=== PATIENT | male | born 1970 | race Caucasian/White ===

== ENCOUNTER 2017-08-15 13:30 | Outpatient (RCR) | payer MEDICARE, MEDICAID, SELFPAY ==
[2017-08-08 13:15] VITALS: BP 144/77; PULSE 90; RESP 16; TEMP 35.9; BMI 54.2
[2017-08-08 18:38] LABS: Absolute Lymphocyte Count 0.95 X10^3/ul (0.83-4.51); Absolute Neutrophil Count 7.3 X10^3/uL (2.0-7.7); Basophil# 0.01 X10^3/uL; Basophil% 0.1 % (0-1); Eosinophil# 0.07 X10^3/uL; Eosinophils% 0.8 % (0-5); Hematocrit 37.8 % (40-54); Hemoglobin 11.5 g/dl (13.0-16.5); Lymphocyte # 0.95 X10^3/ul (4.0); Lymphocyte % 10.8 % (19-41); Mean Corp Hgb Conc 30.4 g/gl (32-36); Mean Corpuscular Hgb 24.4 pg (27.0-32.0); Mean Corpuscular Volume 80.3 fL (80-94); Mean Platelet Vol. 9.5 fl (6.2-12.0); Monocyte# 0.47 X10^3/uL; Monocyte% 5.3 % (0-10); Neutrophil % 82.9 % (47-70); Platelet Count 403 K/mm3 (150-450); RBC Distribution Width CV 14.8 % (11.6-14.6); RBC Distribution Width SD 43.3 fl (35.1-43.9); Red Blood Count 4.71 M/mm3 (4.6-6.2); White Blood Count 8.8 K/mm3 (4.4-11.0)
--- NOTE | 2017-08-08 18:41 | PCM.WC.HP ---
(1) Non-healing surgical wound of left groin Status: Acute Qualifiers: Encounter type: initial encounter Qualified Code(s): T81.89XA - Other complications of procedures, not elsewhere classified, initial encounter Code(s): T81.89XA - Other complications of procedures, not elsewhere classified, initial encounter (2) History of necrotising fasciitis Status: Acute Code(s): Z87.39 - Personal history of other diseases of the musculoskeletal system and connective tissue (3) Lymphedema of both lower extremities Status: Acute Code(s): I89.0 - Lymphedema, not elsewhere classified (4) Type 2 diabetes mellitus Status: Acute Qualifiers: Diabetes mellitus residential insulin use: without residential use Diabetes mellitus complication status: with neurologic complications Diabetes mellitus complication detail: with unspecified neuropathy Qualified Code(s): E11.40 - Type 2 diabetes mellitus with diabetic neuropathy, unspecified Code(s): E11.9 - Type 2 diabetes mellitus without complications (5) Diabetic neuropathy Status: Acute Qualifiers: Diabetes mellitus type: type 2 Code(s): E11.40 - Type 2 diabetes mellitus with diabetic neuropathy, unspecified (6) Morbid obesity Status: Acute Code(s): E66.01 - Morbid (severe) obesity due to excess calories History of Present Illness Date of Service: 08/08/17 Chief Complaint: Nonhealing wound status post surgical excision of necrotizing fasciitis left groin History of Wound: 46-year-old white male who presents to the wound healing center today with complaint of left groin ulceration status post surgical excision of necrotizing fasciitis. He is a past medical history which is significant for that of type 2 diabetes mellitus, gout, diabetic neuropathy, schizophrenia, bilateral lymphedema, and schizophrenia. The patient states that what initially started as a pimple in his left groin progressed to necrotizing fasciitis and he had to have this surgically debrided in April 2017. He was admitted to [facility] for 2 weeks and then [facility] for 6 weeks afterwards. He states that the groin ulcer which extends to his left lower abdomen has been slowly improving and he has been doing daily Aquacel AG dressings with an ABD for the drainage. He does state that he has had 3 wound vacs in the past which were unable to be utilized due to the location of his wound. He denies any foul-smelling discharge or systemic signs of infection at this time. The patient otherwise denies any fever, chills, nausea, vomiting, shortness of breath, chest pain or pressure, palpitations, orthopnea, syncope or presyncopal episodes. Past Medical History Surgical History: - - April 2017 surgical excision necrotizing fasciitis left groin Allergies/Adverse Reactions: Allergies No Known Allergies Allergy (Verified 08/08/17 13:50) Home Medications: Ambulatory Orders Medication Instructions Recorded Gabapentin [Neurontin] 100 mg PO TIDCM 08/08/17 Insulin Glargine,Hum.rec.anlog 36 unit SQ QHS 08/08/17 [Lantus] Magnesium Oxide [Mag-Ox 400] 400 mg PO BID 08/08/17 Smoking Status: Never smoker Tobacco Use: Non-smoker Alcohol: None Drugs: None Review of Systems Constitutional: Denies: Chills, Fever, Weight Change Eyes: Denies: Pain, Vision Change HEENT: Denies: Difficulty Hearing, Difficulty Swallowing, Sinus Congestion Cardiovascular: Denies: Chest Pain, Palpitations Respiratory: Denies: Cough, Shortness of Breath Gastrointestinal: Denies: Diarrhea, Nausea, Vomiting Genitourinary: Denies: Dysuria, Hematuria Skin: Reports: Wounds - See HPI Endocrine: Denies: Heat/ Cold Intolerance, Polydipsia, Polyuria Hematologic/ Lymphatic: Denies: Easy Bruising, Easy Bleeding - Physical Exam Vital Signs Temp Pulse Resp BP 96.6 F L 90 16 144/77 H 08/08/17 13:15 08/08/17 13:15 08/08/17 13:15 08/08/17 13:15 General: Alert, Oriented x3, Cooperative, No apparent distress HEENT: PERRLA, EOMI Oral: Moist Mucosa Neck: Supple Lungs: Clear to auscultation, Normal air movement Cardiovascular: Regular rate, Regular Rhythm Abdomen: Bowel Sounds Present, Obese Extremities: Edema - Bilateral lower extremity edema, Peripheral Pulses Normal Skin: Ulcer/ Wound - Ulceration present left groin that extends underneath left pannus and left lower abdominal fold, moderate amount of slough present, moderate amount of scar tissue present as well due to healing of secondary intention, no obvious signs of infection at this time. Patient does have a depth of 5.5 cm in some areas due to body habitus, however no obvious tunneling. Neurological: Neuro grossly intact Psych/Mental Status: Flat Affect Debridement Note Post-Debridement Measurements/Treatment WC - Nurse 2 - General Ulcer CM Notes Start: 08/08/17 11:50 Freq: Status: Active Protocol: Activity Type Activity Date Activity User E-Sign Co-Sign Detail Recorded Client Recorded Date Recorded By Document 08/08/17 14:29 DV [id number] 08/08/17 14:39 DV 08/08/17 14:29 Wound Center Nurse 2 #1- LEFT GROIN- POST OP -Time 14:32 -Correct Patient Yes -Correct Side, Site, Position Yes -Correct Procedure Yes -Procedure Performed Yes -Type of Procedure Debridement -Clinical Debridement Selective -Post Debridement Size (cm) - Length 39.3 -Post Debridement Size (cm) - Width 7.5 -Post Debridement Size (cm) - Depth 5.8 -Total Square Cm 294.75 -Wound/Ulcer Outcome Not Healed -Ulcer Cleansing Rinsed/ Irrigated with Saline -Foul Odor after Cleansing No -Bioengineered Tissue No -Bleeding Controlled with Pressure -Treatment Response Procedure Tolerated Well Pain Scale: 0-10 Numeric Is Patient Pain Free? Yes Wound debrided: Nonhealing ulcer left groin and left pannus Laterality: Left Type of Debridement: Selective debridement Anesthesia Used: 5% Lidocaine Gel Depth: in the subcutaneous layer Percentage of wound debrided: 50 Instrument Used: 5mm curette Tissue Removed: Slough and fibrous tissue Severity: Fat Layer Exposed Amount of bleeding with debridement: Mild Bleeding Controlled with: Pressure Patient tolerated procedure well Assessment/Plan Assessment: Nonhealing postsurgical wound left groin status post surgical excision of necrotizing fasciitis. Bilateral lower extremity edema. Morbid obesity. Type 2 diabetes mellitus Plan: The patient was seen and examined at the wound center today and was updated on the plan of care. A subcutaneous debridement was performed today. The patient tolerated the procedure well. The patients wound care will consist of:applying melgisorb dressings daily and as needed for heavy absorption until script of Dakins solution arrives to be used BID with wet to dry dressings. Wound cultures were collected. Baseline bloodwork ordered. Previous records were requested for continuity of care. Patient educated on the importance of diet on wound healing and instructed to increase protein and vitamin C intake. Patient verbalized understanding. Patient will follow up at wound healing center in one week or sooner if needed. This note was generated with [employer] software. It may contain incorrect words, spelling, and punctuation that were not noted in checking the note before signing. Code Visit Office Visits / Consults: [id number] OV L4 New 111xxx-113xx: [id number] Jessica subq tissue 20 sq cm/< Add On Codes: [id number] Jessica subq tissue add-on - x 7
[2017-08-08 18:51] LABS: POSITIVE COUNT NO; POSITIVE DIFFERENTIAL NO; POSITIVE MORPHOLOGY NO
[2017-08-08 19:05] LABS: ALB/GLOB Ratio 0.6 RATIO (0.9-2.4); AST(SGOT) 11 U/L (15-37); Alanine Aminotransfer ALT/SGPT 17 U/L (16-61); Albumin, Serum 2.8 g/dL (3.2-5.0); Alkaline Phosphatase 70 U/L (45-117); Anion Gap 8 (5-15); BUN 14 mg/dL (7-18); BUN/Creat Ratio 16.7 RATIO (10-20); Calcium,Total 9.3 mg/dL (8.5-10.1); Chloride 103 mmol/L (98-107); Creatinine, Serum 0.84 mg/dL (0.70-1.30); EST Glomerular Filtration Rate 105 mL/min (>60); Est Glom Filt Rate - Afr Amer 127 mL/min (>60); Estimated Creatinine Clearance 123.17 ml/min; Globulin 4.7 g/dL (2.2-4.2); Glucose 75 mg/dL (74-106); Potassium 3.5 mmol/L (3.5-5.1); Prealbumin 18.9 mg/dL (20.0-40.0); Protein, Total 7.5 g/dL (6.4-8.2); Sodium Level 139 mmol/L (136-145)
[2017-08-08 19:07] LABS: Hemoglobin A1c 5.2 % (4.2-6.3)
--- NOTE | 2017-08-13 13:51 | HP.PCM_ITS ---
(1) Non-healing surgical wound of left groin Status: Acute Qualifiers: Encounter type: initial encounter Qualified Code(s): T81.89XA - Other complications of procedures, not elsewhere classified, initial encounter Code(s): T81.89XA - Other complications of procedures, not elsewhere classified , initial encounter (2) History of necrotising fasciitis Status: Acute Code(s): Z87.39 - Personal history of other diseases of the musculoskeletal system and connective tissue (3) Lymphedema of both lower extremities Status: Acute Code(s): I89.0 - Lymphedema, not elsewhere classified (4) Type 2 diabetes mellitus Status: Acute Qualifiers: Diabetes mellitus prison insulin use: without prison use Diabetes mellitus complication status: with neurologic complications Diabetes mellitus complication detail: with unspecified neuropathy Qualified Code(s): E11.40 - Type 2 diabetes mellitus with diabetic neuropathy, unspecified Code(s): E11.9 - Type 2 diabetes mellitus without complications (5) Diabetic neuropathy Status: Acute Qualifiers: Diabetes mellitus type: type 2 Code(s): E11.40 - Type 2 diabetes mellitus with diabetic neuropathy, unspecified (6) Morbid obesity Status: Acute Code(s): E66.01 - Morbid (severe) obesity due to excess calories History of Present Illness Date of Service: 08/08/17 Chief Complaint: Nonhealing wound status post surgical excision of necrotizing fasciitis left groin History of Wound: 46-year-old white male who presents to the wound healing center today with complaint of left groin ulceration status post surgical excision of necrotizing fasciitis. He is a past medical history which is significant for that of type 2 diabetes mellitus, gout, diabetic neuropathy, schizophrenia, bilateral lymphedema, and schizophrenia. The patient states that what initially started as a pimple in his left groin progressed to necrotizing fasciitis and he had to have this surgically debrided in April 2017. He was admitted to [facility] for 2 weeks and then [facility] for 6 weeks afterwards. He states that the groin ulcer which extends to his left lower abdomen has been slowly improving and he has been doing daily Aquacel AG dressings with an ABD for the drainage. He does state that he has had 3 wound vacs in the past which were unable to be utilized due to the location of his wound. He denies any foul-smelling discharge or systemic signs of infection at this time. The patient otherwise denies any fever, chills, nausea, vomiting, shortness of breath, chest pain or pressure, palpitations, orthopnea, syncope or presyncopal episodes. Past Medical History Surgical History: - - April 2017 surgical excision necrotizing fasciitis left groin Allergies/Adverse Reactions: Allergies No Known Allergies Allergy (Verified 08/08/17 13:50) Home Medications: Ambulatory Orders Medication Instructions Recorded Gabapentin [Neurontin] 100 mg PO TIDCM 08/08/17 Insulin Glargine,Hum.rec.anlog 36 unit SQ QHS 08/08/17 [Lantus] Magnesium Oxide [Mag-Ox 400] 400 mg PO BID 08/08/17 Smoking Status: Never smoker Tobacco Use: Non-smoker Alcohol: None Drugs: None Review of Systems Constitutional: Denies: Chills, Fever, Weight Change Eyes: Denies: Pain, Vision Change HEENT: Denies: Difficulty Hearing, Difficulty Swallowing, Sinus Congestion Cardiovascular: Denies: Chest Pain, Palpitations Respiratory: Denies: Cough, Shortness of Breath Gastrointestinal: Denies: Diarrhea, Nausea, Vomiting Genitourinary: Denies: Dysuria, Hematuria Skin: Reports: Wounds - See HPI Endocrine: Denies: Heat/ Cold Intolerance, Polydipsia, Polyuria Hematologic/ Lymphatic: Denies: Easy Bruising, Easy Bleeding - Physical Exam Vital Signs Temp Pulse Resp BP 96.6 F L 90 16 144/77 H 08/08/17 13:15 08/08/17 13:15 08/08/17 13:15 08/08/17 13:15 General: Alert, Oriented x3, Cooperative, No apparent distress HEENT: PERRLA, EOMI Oral: Moist Mucosa Neck: Supple Lungs: Clear to auscultation, Normal air movement Cardiovascular: Regular rate, Regular Rhythm Abdomen: Bowel Sounds Present, Obese Extremities: Edema - Bilateral lower extremity edema, Peripheral Pulses Normal Skin: Ulcer/ Wound - Ulceration present left groin that extends underneath left pannus and left lower abdominal fold, moderate amount of slough present, moderate amount of scar tissue present as well due to healing of secondary intention, no obvious signs of infection at this time. Patient does have a depth of 5.5 cm in some areas due to body habitus, however no obvious tunneling. Neurological: Neuro grossly intact Psych/Mental Status: Flat Affect Debridement Note Post-Debridement Measurements/Treatment WC - Nurse 2 - General Ulcer CM Notes Start: 08/08/17 11:50 Freq: Status: Active Protocol: Activity Type Activity Date Activity User E-Sign Co-Sign Detail Recorded Client Recorded Date Recorded By Document 08/08/17 14:29 DV [id number] 08/08/17 14:39 DV 08/08/17 14:29 Wound Center Nurse 2 #1- LEFT GROIN- POST OP -Time 14:32 -Correct Patient Yes -Correct Side, Site, Position Yes -Correct Procedure Yes -Procedure Performed Yes -Type of Procedure Debridement -Clinical Debridement Selective -Post Debridement Size (cm) - Length 39.3 -Post Debridement Size (cm) - Width 7.5 -Post Debridement Size (cm) - Depth 5.8 -Total Square Cm 294.75 -Wound/Ulcer Outcome Not Healed -Ulcer Cleansing Rinsed/ Irrigated with Saline -Foul Odor after Cleansing No -Bioengineered Tissue No -Bleeding Controlled with Pressure -Treatment Response Procedure Tolerated Well Pain Scale: 0-10 Numeric Is Patient Pain Free? Yes Wound debrided: Nonhealing ulcer left groin and left pannus Laterality: Left Type of Debridement: Selective debridement Anesthesia Used: 5% Lidocaine Gel Depth: in the subcutaneous layer Percentage of wound debrided: 50 Instrument Used: 5mm curette Tissue Removed: Slough and fibrous tissue Severity: Fat Layer Exposed Amount of bleeding with debridement: Mild Bleeding Controlled with: Pressure Patient tolerated procedure well Assessment/Plan Assessment: Nonhealing postsurgical wound left groin status post surgical excision of necrotizing fasciitis. Bilateral lower extremity edema. Morbid obesity. Type 2 diabetes mellitus Plan: The patient was seen and examined at the wound center today and was updated on the plan of care. A subcutaneous debridement was performed today. The patient tolerated the procedure well. The patients wound care will consist of:applying melgisorb dressings daily and as needed for heavy absorption until script of Dakins solution arrives to be used BID with wet to dry dressings. Wound cultures were collected. Baseline bloodwork ordered. Previous records were requested for continuity of care. Patient educated on the importance of diet on wound healing and instructed to increase protein and vitamin C intake. Patient verbalized understanding. Patient will follow up at wound healing center in one week or sooner if needed. This note was generated with [employer] software. It may contain incorrect words, spelling, and punctuation that were not noted in checking the note before signing. Code Visit Office Visits / Consults: [id number] OV L4 New 111xxx-113xx: [id number] Jessica subq tissue 20 sq cm/< Add On Codes: [id number] Jessica subq tissue add-on - x 7
[2017-08-15 14:01] VITALS: BP 157/90; PULSE 82; RESP 18; TEMP 36.6; BMI 54.2
--- NOTE | 2017-08-15 18:56 | PCM.WC.PN ---
(1) Non-healing surgical wound of left groin Status: Acute Qualifiers: Encounter type: initial encounter Qualified Code(s): T81.89XA - Other complications of procedures, not elsewhere classified, initial encounter Code(s): T81.89XA - Other complications of procedures, not elsewhere classified, initial encounter (2) History of necrotising fasciitis Status: Acute Code(s): Z87.39 - Personal history of other diseases of the musculoskeletal system and connective tissue (3) Lymphedema of both lower extremities Status: Acute Code(s): I89.0 - Lymphedema, not elsewhere classified (4) Type 2 diabetes mellitus Status: Acute Qualifiers: Diabetes mellitus halfway insulin use: without halfway use Diabetes mellitus complication status: with neurologic complications Diabetes mellitus complication detail: with unspecified neuropathy Qualified Code(s): E11.40 - Type 2 diabetes mellitus with diabetic neuropathy, unspecified Code(s): E11.9 - Type 2 diabetes mellitus without complications (5) Diabetic neuropathy Status: Acute Qualifiers: Diabetes mellitus type: type 2 Code(s): E11.40 - Type 2 diabetes mellitus with diabetic neuropathy, unspecified (6) Morbid obesity Status: Acute Code(s): E66.01 - Morbid (severe) obesity due to excess calories Type of Wound Date of Service: 08/15/17 Chief Complaint: Nonhealing wound status post surgical excision of necrotizing fasciitis left groin History of Wound: 46-year-old white male who presents to the wound healing center today with complaint of left groin ulceration status post surgical excision of necrotizing fasciitis. He is a past medical history which is significant for that of type 2 diabetes mellitus, gout, diabetic neuropathy, schizophrenia, bilateral lymphedema, and schizophrenia. The patient states that what initially started as a pimple in his left groin progressed to necrotizing fasciitis and he had to have this surgically debrided in April 2017. He was admitted to [facility] for 2 weeks and then [facility] for 6 weeks afterwards. He states that the groin ulcer which extends to his left lower abdomen has been slowly improving and he has been doing daily Aquacel AG dressings with an ABD for the drainage. He does state that he has had 3 wound vacs in the past which were unable to be utilized due to the location of his wound. He denies any foul-smelling discharge or systemic signs of infection at this time. The patient otherwise denies any fever, chills, nausea, vomiting, shortness of breath, chest pain or pressure, palpitations, orthopnea, syncope or presyncopal episodes. Progress of Wound: less drainage per patient, wound is improving - Physical Exam Vital Signs Temp Pulse Resp BP 98 F 82 18 157/90 H 08/15/17 14:01 08/15/17 14:01 08/15/17 14:01 08/15/17 14:01 General: Alert, Oriented x3, Cooperative, No apparent distress HEENT: Atraumatic Cardiovascular: Regular rate Abdomen: Obese Extremities: No clubbing, No cyanosis, Edema - generalized lower extremity Skin: Ulcer/ Wound - ulcer present left groin and pannus, clean and small amount of slough noted in deep portions. No obvious signs of infection at this time. Neurological: Neuro grossly intact Psych/Mental Status: Normal Affect, Alert and oriented to time, place, person, mood and affect Debridement Note Post-Debridement Measurements/Treatment WC - Nurse 2 - General Ulcer CM Notes Start: 08/08/17 11:50 Freq: Status: Active Protocol: Activity Type Activity Date Activity User E-Sign Co-Sign Detail Recorded Client Recorded Date Recorded By Document 08/08/17 14:29 DV [id number] 08/08/17 14:39 DV Document 08/15/17 15:22 DV [id number] 08/15/17 15:25 DV 08/08/17 08/15/17 14:29 15:22 Wound Center Nurse 2 #1- LEFT GROIN- POST OP -Time 14:32 15:22 -Correct Patient Yes Yes -Correct Side, Site, Position Yes Yes -Correct Procedure Yes Yes -Procedure Performed Yes Yes -Type of Procedure Debridement Debridement -Clinical Debridement Selective Subcutaneous -Post Debridement Size (cm) - Length 39.3 7.0 -Post Debridement Size (cm) - Width 7.5 36.0 -Post Debridement Size (cm) - Depth 5.8 5.0 -Total Square Cm 294.75 252.00 -Wound/Ulcer Outcome Not Healed Not Healed -Ulcer Cleansing Rinsed/ Rinsed/ Irrigated with Irrigated with Saline Saline -Foul Odor after Cleansing No No -Bioengineered Tissue No No -Bleeding Controlled with Pressure Pressure -Treatment Response Procedure Procedure Tolerated Well Tolerated Well Pain Scale: 0-10 Numeric Is Patient Pain Free? Yes Yes Wound debrided: Left groin nonhealing post surgical wound ulcer Laterality: Left Type of Debridement: Selective debridement Anesthesia Used: 4% Lidocaine Solution Depth: Down to and including healthy tissue, in the subcutaneous layer Percentage of wound debrided: 50 Instrument Used: 5mm curette Tissue Removed: should and fibrous tissue Severity: Fat Layer Exposed Amount of bleeding with debridement: Mild Bleeding Controlled with: Pressure Patient tolerated procedure well Assessment/Plan Assessment: Nonhealing postsurgical wound left groin status post surgical excision of necrotizing fasciitis. Bilateral lower extremity edema. Morbid obesity. Type 2 diabetes mellitus Plan: The patient was seen and examined at the wound center today and was updated on the plan of care. A subcutaneous debridement was performed today. The patient tolerated the procedure well. The patients wound care will consist of:using Dakins solution to be used BID with wet to dry dressings, instructed pt to do this BID instead of daily. Wound cultures were reviewed and normal. Baseline bloodwork reviewed and demonstrated low prealbumin of 18.9, glucerna with high protein ordered. Previous records were requested for continuity of care and still pending. Patient educated on the importance of diet on wound healing and instructed to increase protein and vitamin C intake. Patient verbalized understanding. Patient will follow up at wound healing center in one week or sooner if needed. This note was generated with [employer] dictation software. It may contain incorrect words, spelling, and punctuation that were not noted in checking the note before signing. Code Visit 111xxx-113xx: [id number] Jessica subq tissue 20 sq cm/< Add On Codes: [id number] Jessica subq tissue add-on - x 5
--- NOTE | 2017-08-21 11:02 | PN.PCM_ITS ---
(1) Non-healing surgical wound of left groin Status: Acute Qualifiers: Encounter type: initial encounter Qualified Code(s): T81.89XA - Other complications of procedures, not elsewhere classified, initial encounter Code(s): T81.89XA - Other complications of procedures, not elsewhere classified , initial encounter (2) History of necrotising fasciitis Status: Acute Code(s): Z87.39 - Personal history of other diseases of the musculoskeletal system and connective tissue (3) Lymphedema of both lower extremities Status: Acute Code(s): I89.0 - Lymphedema, not elsewhere classified (4) Type 2 diabetes mellitus Status: Acute Qualifiers: Diabetes mellitus fdc insulin use: without fdc use Diabetes mellitus complication status: with neurologic complications Diabetes mellitus complication detail: with unspecified neuropathy Qualified Code(s): E11.40 - Type 2 diabetes mellitus with diabetic neuropathy, unspecified Code(s): E11.9 - Type 2 diabetes mellitus without complications (5) Diabetic neuropathy Status: Acute Qualifiers: Diabetes mellitus type: type 2 Code(s): E11.40 - Type 2 diabetes mellitus with diabetic neuropathy, unspecified (6) Morbid obesity Status: Acute Code(s): E66.01 - Morbid (severe) obesity due to excess calories Type of Wound Date of Service: 08/15/17 Chief Complaint: Nonhealing wound status post surgical excision of necrotizing fasciitis left groin History of Wound: 46-year-old white male who presents to the wound healing center today with complaint of left groin ulceration status post surgical excision of necrotizing fasciitis. He is a past medical history which is significant for that of type 2 diabetes mellitus, gout, diabetic neuropathy, schizophrenia, bilateral lymphedema, and schizophrenia. The patient states that what initially started as a pimple in his left groin progressed to necrotizing fasciitis and he had to have this surgically debrided in April 2017. He was admitted to [facility] for 2 weeks and then [facility] for 6 weeks afterwards. He states that the groin ulcer which extends to his left lower abdomen has been slowly improving and he has been doing daily Aquacel AG dressings with an ABD for the drainage. He does state that he has had 3 wound vacs in the past which were unable to be utilized due to the location of his wound. He denies any foul-smelling discharge or systemic signs of infection at this time. The patient otherwise denies any fever, chills, nausea, vomiting, shortness of breath, chest pain or pressure, palpitations, orthopnea, syncope or presyncopal episodes. Progress of Wound: less drainage per patient, wound is improving - Physical Exam Vital Signs Temp Pulse Resp BP 98 F 82 18 157/90 H 08/15/17 14:01 08/15/17 14:01 08/15/17 14:01 08/15/17 14:01 General: Alert, Oriented x3, Cooperative, No apparent distress HEENT: Atraumatic Cardiovascular: Regular rate Abdomen: Obese Extremities: No clubbing, No cyanosis, Edema - generalized lower extremity Skin: Ulcer/ Wound - ulcer present left groin and pannus, clean and small amount of slough noted in deep portions. No obvious signs of infection at this time. Neurological: Neuro grossly intact Psych/Mental Status: Normal Affect, Alert and oriented to time, place, person, mood and affect Debridement Note Post-Debridement Measurements/Treatment WC - Nurse 2 - General Ulcer CM Notes Start: 08/08/17 11:50 Freq: Status: Active Protocol: Activity Type Activity Date Activity User E-Sign Co-Sign Detail Recorded Client Recorded Date Recorded By Document 08/08/17 14:29 DV [id number] 08/08/17 14:39 DV Document 08/15/17 15:22 DV [id number] 08/15/17 15:25 DV 08/08/17 08/15/17 14:29 15:22 Wound Center Nurse 2 #1- LEFT GROIN- POST OP -Time 14:32 15:22 -Correct Patient Yes Yes -Correct Side, Site, Position Yes Yes -Correct Procedure Yes Yes -Procedure Performed Yes Yes -Type of Procedure Debridement Debridement -Clinical Debridement Selective Subcutaneous -Post Debridement Size (cm) - Length 39.3 7.0 -Post Debridement Size (cm) - Width 7.5 36.0 -Post Debridement Size (cm) - Depth 5.8 5.0 -Total Square Cm 294.75 252.00 -Wound/Ulcer Outcome Not Healed Not Healed -Ulcer Cleansing Rinsed/ Rinsed/ Irrigated with Irrigated with Saline Saline -Foul Odor after Cleansing No No -Bioengineered Tissue No No -Bleeding Controlled with Pressure Pressure -Treatment Response Procedure Procedure Tolerated Well Tolerated Well Pain Scale: 0-10 Numeric Is Patient Pain Free? Yes Yes Wound debrided: Left groin nonhealing post surgical wound ulcer Laterality: Left Type of Debridement: Selective debridement Anesthesia Used: 4% Lidocaine Solution Depth: Down to and including healthy tissue, in the subcutaneous layer Percentage of wound debrided: 50 Instrument Used: 5mm curette Tissue Removed: should and fibrous tissue Severity: Fat Layer Exposed Amount of bleeding with debridement: Mild Bleeding Controlled with: Pressure Patient tolerated procedure well Assessment/Plan Assessment: Nonhealing postsurgical wound left groin status post surgical excision of necrotizing fasciitis. Bilateral lower extremity edema. Morbid obesity. Type 2 diabetes mellitus Plan: The patient was seen and examined at the wound center today and was updated on the plan of care. A subcutaneous debridement was performed today. The patient tolerated the procedure well. The patients wound care will consist of:using Dakins solution to be used BID with wet to dry dressings, instructed pt to do this BID instead of daily. Wound cultures were reviewed and normal. Baseline bloodwork reviewed and demonstrated low prealbumin of 18.9, glucerna with high protein ordered. Previous records were requested for continuity of care and still pending. Patient educated on the importance of diet on wound healing and instructed to increase protein and vitamin C intake. Patient verbalized understanding. Patient will follow up at wound healing center in one week or sooner if needed. This note was generated with [employer] dictation software. It may contain incorrect words, spelling, and punctuation that were not noted in checking the note before signing. Code Visit 111xxx-113xx: 68928 Jessica subq tissue 20 sq cm/< Add On Codes: [id number] Jessica subq tissue add-on - x 5
== END 2017-08-19 23:59 ==
LOC: WC 13:30
PROVIDERS: Family Provider Family Medicine; PCP Family Medicine; Visit Provider Nurse Practitioner Family
DX: E11.622 Type 2 diabetes mellitus with other skin ulcer (principal); I89.0 Lymphedema, not elsewhere classified; E11.40 Type 2 diabetes mellitus with diabetic neuropathy, unspecified; E66.01 Morbid (severe) obesity due to excess calories; Z68.43 Body mass index [BMI] 50.0-59.9, adult; Z71.3 Dietary counseling and surveillance; T81.89XA Other complications of procedures, not elsewhere classified, initial encounter; Z86.711 Personal history of pulmonary embolism; Z79.4 Long term (current) use of insulin; Z79.899 Other long term (current) drug therapy; L98.492 Non-pressure chronic ulcer of skin of other sites with fat layer exposed
CPT/HCPCS: 11042; 11045; 80053; 83036; 84134; 85025; 87070; 87075; 87205; 99204; G0463

== ENCOUNTER 2017-09-19 15:30 | Outpatient (RCR) | payer MEDICARE, MEDICAID, SELFPAY ==
[2017-08-20 01:08] VITALS: PULSE 82; RESP 18; TEMP 36.6
[2017-08-22 14:38] VITALS: BP 160/94; PULSE 77; RESP 18; TEMP 36.2
--- NOTE | 2017-08-22 17:23 | PCM.WC.PN ---
(1) Non-healing surgical wound of left groin Status: Acute Qualifiers: Code(s): T81.89XA - Other complications of procedures, not elsewhere classified, initial encounter (2) Diabetic neuropathy Status: Acute Code(s): E11.40 - Type 2 diabetes mellitus with diabetic neuropathy, unspecified (3) History of necrotising fasciitis Status: Acute Code(s): Z87.39 - Personal history of other diseases of the musculoskeletal system and connective tissue (4) Lymphedema of both lower extremities Status: Acute Code(s): I89.0 - Lymphedema, not elsewhere classified (5) Morbid obesity Status: Acute Code(s): E66.01 - Morbid (severe) obesity due to excess calories (6) Type 2 diabetes mellitus Status: Acute Qualifiers: Code(s): E11.9 - Type 2 diabetes mellitus without complications Type of Wound Date of Service: 08/22/17 Chief Complaint: Nonhealing wound status post surgical excision of necrotizing fasciitis left groin History of Wound: 46-year-old white male who presents to the wound healing center today with complaint of left groin ulceration status post surgical excision of necrotizing fasciitis. He is a past medical history which is significant for that of type 2 diabetes mellitus, gout, diabetic neuropathy, schizophrenia, bilateral lymphedema, and schizophrenia. The patient states that what initially started as a pimple in his left groin progressed to necrotizing fasciitis and he had to have this surgically debrided in April 2017. He was admitted to [facility] for 2 weeks and then [facility] for 6 weeks afterwards. He states that the groin ulcer which extends to his left lower abdomen has been slowly improving and he has been doing daily Aquacel AG dressings with an ABD for the drainage. He does state that he has had 3 wound vacs in the past which were unable to be utilized due to the location of his wound. He denies any foul-smelling discharge or systemic signs of infection at this time. The patient otherwise denies any fever, chills, nausea, vomiting, shortness of breath, chest pain or pressure, palpitations, orthopnea, syncope or presyncopal episodes. Progress of Wound: Wound is stable and slowly improving, wound bed is moist and clean and without signs of infection at this time. - Physical Exam Vital Signs Temp Pulse Resp BP 97.2 F L 77 18 160/94 H 08/22/17 14:38 08/22/17 14:38 08/22/17 14:38 08/22/17 14:38 General: Alert, Oriented x3, Cooperative, No apparent distress HEENT: Atraumatic Cardiovascular: Regular rate Skin: Ulcer/ Wound - Nonhealing ulcer left lower pannus fold extending into the groin, wound bed is moist and clean with a small amount of slough present. No signs of infection at this time. Slightly macerated edges Psych/Mental Status: Normal Affect, Alert and oriented to time, place, person, mood and affect Debridement Note Post-Debridement Measurements/Treatment WC - Nurse 2 - General Ulcer CM Notes Start: 08/22/17 14:38 Freq: Status: Active Protocol: Activity Type Activity Date Activity User E-Sign Co-Sign Detail Recorded Client Recorded Date Recorded By Document 08/22/17 17:40 DV [id number] 08/24/17 01:11 DV 08/22/17 17:40 Wound Center Nurse 2 #1- LEFT GROIN- POST OP -Time 17:40 -Correct Patient Yes -Correct Side, Site, Position Yes -Correct Procedure Yes -Procedure Performed Yes -Type of Procedure Debridement -Clinical Debridement Subcutaneous -Post Debridement Size (cm) - Length 35.0 -Post Debridement Size (cm) - Width 5.0 -Post Debridement Size (cm) - Depth 4.8 -Total Square Cm 175.00 -Wound/Ulcer Outcome Not Healed -Ulcer Cleansing Rinsed/ Irrigated with Saline -Foul Odor after Cleansing No -Bioengineered Tissue No -Bleeding Controlled with NA -Treatment Response Procedure Tolerated Well Pain Scale: 0-10 Numeric Is Patient Pain Free? Yes Wound debrided: Left groin/pannus postsurgical excision nonhealing wound Type of Debridement: Excisional debridement, Selective debridement Anesthesia Used: 4% Lidocaine Solution Depth: Down to and including healthy tissue, in the subcutaneous layer Percentage of wound debrided: 50 Instrument Used: 7mm curette Tissue Removed: Slough and fibrous tissue Severity: Fat Layer Exposed Amount of bleeding with debridement: Mild Bleeding Controlled with: Pressure Patient tolerated procedure well Assessment/Plan Assessment: Nonhealing postsurgical wound left groin status post surgical excision of necrotizing fasciitis. Bilateral lower extremity edema. Morbid obesity. Type 2 diabetes mellitus Plan: The patient was seen and examined at the wound center today and was updated on the plan of care. A subcutaneous debridement was performed today. The patient tolerated the procedure well. The patients wound care will consist of:applying Dakins wet-to-dry dressing changes daily changed from twice daily due to slight maceration of skin. Wound cultures were reviewed and negative. Baseline bloodwork reviewed which demonstrated a slightly low pre-albumin and patient was advised to use Glucerna or high-protein with meals. Previous records were requested for continuity of care. Patient educated on the importance of diet on wound healing and instructed to increase protein and vitamin C intake. Patient verbalized understanding. Patient will follow up at wound healing center in one week or sooner if needed. This note was generated with [email or web address] dictation software. It may contain incorrect words, spelling, and punctuation that were not noted in checking the note before signing. Code Visit 111xxx-113xx: 52288 Jessica subq tissue 20 sq cm/< Add On Codes: [id number] Jessica subq tissue add-on
--- NOTE | 2017-08-27 17:29 | PN.PCM_ITS ---
(1) Non-healing surgical wound of left groin Status: Acute Qualifiers: Code(s): T81.89XA - Other complications of procedures, not elsewhere classified , initial encounter (2) Diabetic neuropathy Status: Acute Code(s): E11.40 - Type 2 diabetes mellitus with diabetic neuropathy, unspecified (3) History of necrotising fasciitis Status: Acute Code(s): Z87.39 - Personal history of other diseases of the musculoskeletal system and connective tissue (4) Lymphedema of both lower extremities Status: Acute Code(s): I89.0 - Lymphedema, not elsewhere classified (5) Morbid obesity Status: Acute Code(s): E66.01 - Morbid (severe) obesity due to excess calories (6) Type 2 diabetes mellitus Status: Acute Qualifiers: Code(s): E11.9 - Type 2 diabetes mellitus without complications Type of Wound Date of Service: 08/22/17 Chief Complaint: Nonhealing wound status post surgical excision of necrotizing fasciitis left groin History of Wound: 46-year-old white male who presents to the wound healing center today with complaint of left groin ulceration status post surgical excision of necrotizing fasciitis. He is a past medical history which is significant for that of type 2 diabetes mellitus, gout, diabetic neuropathy, schizophrenia, bilateral lymphedema, and schizophrenia. The patient states that what initially started as a pimple in his left groin progressed to necrotizing fasciitis and he had to have this surgically debrided in April 2017. He was admitted to [facility] for 2 weeks and then [facility] for 6 weeks afterwards. He states that the groin ulcer which extends to his left lower abdomen has been slowly improving and he has been doing daily Aquacel AG dressings with an ABD for the drainage. He does state that he has had 3 wound vacs in the past which were unable to be utilized due to the location of his wound. He denies any foul-smelling discharge or systemic signs of infection at this time. The patient otherwise denies any fever, chills, nausea, vomiting, shortness of breath, chest pain or pressure, palpitations, orthopnea, syncope or presyncopal episodes. Progress of Wound: Wound is stable and slowly improving, wound bed is moist and clean and without signs of infection at this time. - Physical Exam Vital Signs Temp Pulse Resp BP 97.2 F L 77 18 160/94 H 08/22/17 14:38 08/22/17 14:38 08/22/17 14:38 08/22/17 14:38 General: Alert, Oriented x3, Cooperative, No apparent distress HEENT: Atraumatic Cardiovascular: Regular rate Skin: Ulcer/ Wound - Nonhealing ulcer left lower pannus fold extending into the groin, wound bed is moist and clean with a small amount of slough present. No signs of infection at this time. Slightly macerated edges Psych/Mental Status: Normal Affect, Alert and oriented to time, place, person, mood and affect Debridement Note Post-Debridement Measurements/Treatment WC - Nurse 2 - General Ulcer CM Notes Start: 08/22/17 14:38 Freq: Status: Active Protocol: Activity Type Activity Date Activity User E-Sign Co-Sign Detail Recorded Client Recorded Date Recorded By Document 08/22/17 17:40 DV [id number] 08/24/17 01:11 DV 08/22/17 17:40 Wound Center Nurse 2 #1- LEFT GROIN- POST OP -Time 17:40 -Correct Patient Yes -Correct Side, Site, Position Yes -Correct Procedure Yes -Procedure Performed Yes -Type of Procedure Debridement -Clinical Debridement Subcutaneous -Post Debridement Size (cm) - Length 35.0 -Post Debridement Size (cm) - Width 5.0 -Post Debridement Size (cm) - Depth 4.8 -Total Square Cm 175.00 -Wound/Ulcer Outcome Not Healed -Ulcer Cleansing Rinsed/ Irrigated with Saline -Foul Odor after Cleansing No -Bioengineered Tissue No -Bleeding Controlled with NA -Treatment Response Procedure Tolerated Well Pain Scale: 0-10 Numeric Is Patient Pain Free? Yes Wound debrided: Left groin/pannus postsurgical excision nonhealing wound Type of Debridement: Excisional debridement, Selective debridement Anesthesia Used: 4% Lidocaine Solution Depth: Down to and including healthy tissue, in the subcutaneous layer Percentage of wound debrided: 50 Instrument Used: 7mm curette Tissue Removed: Slough and fibrous tissue Severity: Fat Layer Exposed Amount of bleeding with debridement: Mild Bleeding Controlled with: Pressure Patient tolerated procedure well Assessment/Plan Assessment: Nonhealing postsurgical wound left groin status post surgical excision of necrotizing fasciitis. Bilateral lower extremity edema. Morbid obesity. Type 2 diabetes mellitus Plan: The patient was seen and examined at the wound center today and was updated on the plan of care. A subcutaneous debridement was performed today. The patient tolerated the procedure well. The patients wound care will consist of:applying Dakins wet-to-dry dressing changes daily changed from twice daily due to slight maceration of skin. Wound cultures were reviewed and negative. Baseline bloodwork reviewed which demonstrated a slightly low pre-albumin and patient was advised to use Glucerna or high-protein with meals. Previous records were requested for continuity of care. Patient educated on the importance of diet on wound healing and instructed to increase protein and vitamin C intake. Patient verbalized understanding. Patient will follow up at wound healing center in one week or sooner if needed. This note was generated with [employer] dictation software. It may contain incorrect words, spelling, and punctuation that were not noted in checking the note before signing. Code Visit 111xxx-113xx: 38934 Jessica subq tissue 20 sq cm/< Add On Codes: [id number] Jessica subq tissue add-on
[2017-08-29 15:07] VITALS: BP 159/99; PULSE 85; RESP 20; TEMP 35.7
--- NOTE | 2017-08-29 17:49 | PCM.WC.PN ---
(1) Non-healing surgical wound of left groin Status: Acute Current Visit: No Qualifiers: Code(s): T81.89XA - Other complications of procedures, not elsewhere classified, initial encounter (2) Diabetic neuropathy Status: Acute Current Visit: No Code(s): E11.40 - Type 2 diabetes mellitus with diabetic neuropathy, unspecified (3) History of necrotising fasciitis Status: Acute Current Visit: No Code(s): Z87.39 - Personal history of other diseases of the musculoskeletal system and connective tissue (4) Lymphedema of both lower extremities Status: Acute Current Visit: No Code(s): I89.0 - Lymphedema, not elsewhere classified (5) Morbid obesity Status: Acute Current Visit: No Code(s): E66.01 - Morbid (severe) obesity due to excess calories (6) Type 2 diabetes mellitus Status: Acute Current Visit: No Qualifiers: Code(s): E11.9 - Type 2 diabetes mellitus without complications Type of Wound Date of Service: 08/29/17 Chief Complaint: Nonhealing wound status post surgical excision of necrotizing fasciitis left groin History of Wound: 46-year-old white male who presents to the wound healing center today with complaint of left groin ulceration status post surgical excision of necrotizing fasciitis. He is a past medical history which is significant for that of type 2 diabetes mellitus, gout, diabetic neuropathy, schizophrenia, bilateral lymphedema, and schizophrenia. The patient states that what initially started as a pimple in his left groin progressed to necrotizing fasciitis and he had to have this surgically debrided in April 2017. He was admitted to [facility] for 2 weeks and then [facility] for 6 weeks afterwards. He states that the groin ulcer which extends to his left lower abdomen has been slowly improving and he has been doing daily Aquacel AG dressings with an ABD for the drainage. He does state that he has had 3 wound vacs in the past which were unable to be utilized due to the location of his wound. He denies any foul-smelling discharge or systemic signs of infection at this time. The patient otherwise denies any fever, chills, nausea, vomiting, shortness of breath, chest pain or pressure, palpitations, orthopnea, syncope or presyncopal episodes. Progress of Wound: Wound is stable and slowly improving, wound bed is moist and clean and without signs of infection at this time. There was a bridge of skin that has epithelialized and now made into 2 separate wounds wound 1 left groin and wound to left lower abdominal fold - Physical Exam Vital Signs Temp Pulse Resp BP 96.2 F L 85 20 H 159/99 H 08/29/17 15:07 08/29/17 15:07 08/29/17 15:07 08/29/17 15:07 General: Alert, Oriented x3, Cooperative, No apparent distress HEENT: Atraumatic Cardiovascular: Regular rate Extremities: Edema, Peripheral Pulses Normal Skin: Ulcer/ Wound - Ulceration present left lower abdominal fold and left groin with small areas of hypertrophied epithelialization and small amount of slough present, no signs of infection such as increasing pain, foul smell, or Wound Measurements and Assessment WC - Nurse 1 - General Ulcer Measurement Start: 08/22/17 14:38 Freq: Status: Active Protocol: Activity Type Activity Date Activity User E-Sign Co-Sign Detail Recorded Client Recorded Date Recorded By Document 08/29/17 15:07 DV [id number] 08/29/17 15:33 DV 08/29/17 15:07 Wound Center Nurse 1 [Ulcer Assessment] #1- LEFT GROIN- POST OP -Combined with other wound No -Current Size (cm) - Length 39.0 -Current Size (cm) - Width 6.0 -Current Size (cm) - Depth 4.0 -Total Square Cm 234.00 -Photo Taken No -Epithelialization Medium 34-66% -Tunneling No -Undermining/Tunneling No -Circular Undermining No -Classification - Thickness Full Thickness without Exposed Support Structure -Exudate Amt Medium (34-66%) -Exudate Type Serous -Wound Margin Distinct, Outline Attached -Granulation Amt Medium (34-66%) -Granulation Quality Pale Red -Slough/Fibrin Yes -Necrosis Amt None Present (0 %) -Necrotic Tissue Type Adherent Slough -Structure Exposed N/A -Texture (Inessa-wound Skin Appearance) No Abnormality -Moisture (Inessa-wound Skin Appearance Maceration ) -Color (Inessa-wound Skin Appearance) No Abnormality -Temperature (Inessa-wound Skin No Abnormality Appearance) (Pt Warm) -Tenderness on Palpation (Inessa-wound No Skin Appearance) -Ulcer Cleansing Rinsed/ Irrigated with Saline -Foul Odor after Cleansing No -Anesthetic Used 4% Lidocaine Solution WC - Nurse 2 - General Ulcer CM Notes Start: 08/22/17 14:38 Freq: Status: Active Protocol: Activity Type Activity Date Activity User E-Sign Co-Sign Detail Recorded Client Recorded Date Recorded By Document 08/29/17 16:01 DV [id number] 08/29/17 16:09 DV 08/29/17 16:01 Wound Center Nurse 2 [Procedure/Treatment] #2 Left Abdominal Fold -Time 16:07 -Correct Patient Yes -Correct Side, Site, Position Yes -Correct Procedure Yes -Procedure Performed Yes -Type of Procedure Debridement -Clinical Debridement Subcutaneous -Post Debridement Size (cm) - Length 23.0 -Post Debridement Size (cm) - Width 6.5 -Post Debridement Size (cm) - Depth 0.1 -Total Square Cm 149.50 -Wound/Ulcer Outcome Not Healed -Ulcer Cleansing Rinsed/ Irrigated with Saline -Foul Odor after Cleansing No -Bioengineered Tissue No -Bleeding Controlled with Pressure -Treatment Response Procedure Tolerated Well #1- LEFT GROIN- POST OP -Time 16:04 -Correct Patient Yes -Correct Side, Site, Position Yes -Correct Procedure Yes -Procedure Performed Yes -Type of Procedure Debridement -Clinical Debridement Subcutaneous -Post Debridement Size (cm) - Length 13.0 -Post Debridement Size (cm) - Width 3.0 -Post Debridement Size (cm) - Depth 0.1 -Total Square Cm 39.00 -Wound/Ulcer Outcome Not Healed -Ulcer Cleansing Rinsed/ Irrigated with Saline -Foul Odor after Cleansing No -Bioengineered Tissue No -Bleeding Controlled with Pressure -Treatment Response Procedure Tolerated Well [See Physician Procedure note for Specifics] Pain Scale: 0-10 Numeric [Pain] -Is Patient Pain Free? Yes Neurological: Neuro grossly intact Psych/Mental Status: Normal Affect, Appropriate, Alert and oriented to time, place, person, mood and affect Debridement Note Post-Debridement Measurements/Treatment WC - Nurse 2 - General Ulcer CM Notes Start: 08/22/17 14:38 Freq: Status: Active Protocol: Activity Type Activity Date Activity User E-Sign Co-Sign Detail Recorded Client Recorded Date Recorded By Document 08/22/17 17:40 DV [id number] 08/24/17 01:11 DV Document 08/29/17 16:01 DV [id number] 08/29/17 16:09 DV 08/22/17 08/29/17 17:40 16:01 Wound Center Nurse 2 #2 Left Abdominal Fold -Time 16:07 -Correct Patient Yes -Correct Side, Site, Position Yes -Correct Procedure Yes -Procedure Performed Yes -Type of Procedure Debridement -Clinical Debridement Subcutaneous -Post Debridement Size (cm) - Length 23.0 -Post Debridement Size (cm) - Width 6.5 -Post Debridement Size (cm) - Depth 0.1 -Total Square Cm 149.50 -Wound/Ulcer Outcome Not Healed -Ulcer Cleansing Rinsed/ Irrigated with Saline -Foul Odor after Cleansing No -Bioengineered Tissue No -Bleeding Controlled with Pressure -Treatment Response Procedure Tolerated Well #1- LEFT GROIN- POST OP -Time 17:40 16:04 -Correct Patient Yes Yes -Correct Side, Site, Position Yes Yes -Correct Procedure Yes Yes -Procedure Performed Yes Yes -Type of Procedure Debridement Debridement -Clinical Debridement Subcutaneous Subcutaneous -Post Debridement Size (cm) - Length 35.0 13.0 -Post Debridement Size (cm) - Width 5.0 3.0 -Post Debridement Size (cm) - Depth 4.8 0.1 -Total Square Cm 175.00 39.00 -Wound/Ulcer Outcome Not Healed Not Healed -Ulcer Cleansing Rinsed/ Rinsed/ Irrigated with Irrigated with Saline Saline -Foul Odor after Cleansing No No -Bioengineered Tissue No No -Bleeding Controlled with NA Pressure -Treatment Response Procedure Procedure Tolerated Well Tolerated Well Pain Scale: 0-10 Numeric Is Patient Pain Free? Yes Yes Wound debrided: Left lower abdominal fold Laterality: Left Type of Debridement: Selective debridement Anesthesia Used: 5% Lidocaine Gel Depth: in the subcutaneous layer Percentage of wound debrided: 50 Instrument Used: 7mm curette Tissue Removed: Slough and hypertrophied epithelialized skin Severity: Fat Layer Exposed Amount of bleeding with debridement: Mild Bleeding Controlled with: Pressure Patient tolerated procedure well - Additional Wound Wound debrided: Left groin/pannus Laterality: Left Type of Debridement: Selective debridement Anesthesia Used: 5% Lidocaine Gel Depth: in the subcutaneous layer Percentage of wound debrided: 50 Instrument Used: 7mm curette Tissue Removed: Slough and fibrous tissue Severity: Fat Layer Exposed Amount of bleeding with debridement: Mild Bleeding Controlled with: Pressure Patient tolerated procedure: Patient tolerated procedure well Assessment/Plan Assessment: Nonhealing postsurgical wound left groin status post surgical excision of necrotizing fasciitis. Bilateral lower extremity edema. Morbid obesity. Type 2 diabetes mellitus Plan: The patient was seen and examined at the wound center today and was updated on the plan of care. A subcutaneous debridement was performed today. The patient tolerated the procedure well. The patients wound care will consist of:applying Dakins wet-to-dry dressing changes daily and using melgisorb as needed for heavy drainage. Wound cultures were reviewed and negative. Baseline bloodwork reviewed which demonstrated a slightly low pre-albumin and patient was advised to use Glucerna or high-protein with meals. Previous records were requested for continuity of care. Patient educated on the importance of diet on wound healing and instructed to increase protein and vitamin C intake. Patient verbalized understanding. Patient will follow up at wound healing center in one week or sooner if needed. This note was generated with [employer] dictation software. It may contain incorrect words, spelling, and punctuation that were not noted in checking the note before signing. Code Visit 111xxx-113xx: 33399 Jessica subq tissue 20 sq cm/< Add On Codes: [id number] Jessica subq tissue add-on
--- NOTE | 2017-09-01 11:54 | PN.PCM_ITS ---
(1) Non-healing surgical wound of left groin Status: Acute Current Visit: No Qualifiers: Code(s): T81.89XA - Other complications of procedures, not elsewhere classified , initial encounter (2) Diabetic neuropathy Status: Acute Current Visit: No Code(s): E11.40 - Type 2 diabetes mellitus with diabetic neuropathy, unspecified (3) History of necrotising fasciitis Status: Acute Current Visit: No Code(s): Z87.39 - Personal history of other diseases of the musculoskeletal system and connective tissue (4) Lymphedema of both lower extremities Status: Acute Current Visit: No Code(s): I89.0 - Lymphedema, not elsewhere classified (5) Morbid obesity Status: Acute Current Visit: No Code(s): E66.01 - Morbid (severe) obesity due to excess calories (6) Type 2 diabetes mellitus Status: Acute Current Visit: No Qualifiers: Code(s): E11.9 - Type 2 diabetes mellitus without complications Type of Wound Date of Service: 08/29/17 Chief Complaint: Nonhealing wound status post surgical excision of necrotizing fasciitis left groin History of Wound: 46-year-old white male who presents to the wound healing center today with complaint of left groin ulceration status post surgical excision of necrotizing fasciitis. He is a past medical history which is significant for that of type 2 diabetes mellitus, gout, diabetic neuropathy, schizophrenia, bilateral lymphedema, and schizophrenia. The patient states that what initially started as a pimple in his left groin progressed to necrotizing fasciitis and he had to have this surgically debrided in April 2017. He was admitted to [facility] for 2 weeks and then [facility] for 6 weeks afterwards. He states that the groin ulcer which extends to his left lower abdomen has been slowly improving and he has been doing daily Aquacel AG dressings with an ABD for the drainage. He does state that he has had 3 wound vacs in the past which were unable to be utilized due to the location of his wound. He denies any foul-smelling discharge or systemic signs of infection at this time. The patient otherwise denies any fever, chills, nausea, vomiting, shortness of breath, chest pain or pressure, palpitations, orthopnea, syncope or presyncopal episodes. Progress of Wound: Wound is stable and slowly improving, wound bed is moist and clean and without signs of infection at this time. There was a bridge of skin that has epithelialized and now made into 2 separate wounds wound 1 left groin and wound to left lower abdominal fold - Physical Exam Vital Signs Temp Pulse Resp BP 96.2 F L 85 20 H 159/99 H 08/29/17 15:07 08/29/17 15:07 08/29/17 15:07 08/29/17 15:07 General: Alert, Oriented x3, Cooperative, No apparent distress HEENT: Atraumatic Cardiovascular: Regular rate Extremities: Edema, Peripheral Pulses Normal Skin: Ulcer/ Wound - Ulceration present left lower abdominal fold and left groin with small areas of hypertrophied epithelialization and small amount of slough present, no signs of infection such as increasing pain, foul smell, or Wound Measurements and Assessment WC - Nurse 1 - General Ulcer Measurement Start: 08/22/17 14:38 Freq: Status: Active Protocol: Activity Type Activity Date Activity User E-Sign Co-Sign Detail Recorded Client Recorded Date Recorded By Document 08/29/17 15:07 DV [id number] 08/29/17 15:33 DV 08/29/17 15:07 Wound Center Nurse 1 [Ulcer Assessment] #1- LEFT GROIN- POST OP -Combined with other wound No -Current Size (cm) - Length 39.0 -Current Size (cm) - Width 6.0 -Current Size (cm) - Depth 4.0 -Total Square Cm 234.00 -Photo Taken No -Epithelialization Medium 34-66% -Tunneling No -Undermining/Tunneling No -Circular Undermining No -Classification - Thickness Full Thickness without Exposed Support Structure -Exudate Amt Medium (34-66%) -Exudate Type Serous -Wound Margin Distinct, Outline Attached -Granulation Amt Medium (34-66%) -Granulation Quality Pale Red -Slough/Fibrin Yes -Necrosis Amt None Present (0 %) -Necrotic Tissue Type Adherent Slough -Structure Exposed N/A -Texture (Inessa-wound Skin Appearance) No Abnormality -Moisture (Inessa-wound Skin Appearance Maceration ) -Color (Inessa-wound Skin Appearance) No Abnormality -Temperature (Inessa-wound Skin No Abnormality Appearance) (Pt Warm) -Tenderness on Palpation (Inessa-wound No Skin Appearance) -Ulcer Cleansing Rinsed/ Irrigated with Saline -Foul Odor after Cleansing No -Anesthetic Used 4% Lidocaine Solution WC - Nurse 2 - General Ulcer CM Notes Start: 08/22/17 14:38 Freq: Status: Active Protocol: Activity Type Activity Date Activity User E-Sign Co-Sign Detail Recorded Client Recorded Date Recorded By Document 08/29/17 16:01 DV [id number] 08/29/17 16:09 DV 08/29/17 16:01 Wound Center Nurse 2 [Procedure/Treatment] #2 Left Abdominal Fold -Time 16:07 -Correct Patient Yes -Correct Side, Site, Position Yes -Correct Procedure Yes -Procedure Performed Yes -Type of Procedure Debridement -Clinical Debridement Subcutaneous -Post Debridement Size (cm) - Length 23.0 -Post Debridement Size (cm) - Width 6.5 -Post Debridement Size (cm) - Depth 0.1 -Total Square Cm 149.50 -Wound/Ulcer Outcome Not Healed -Ulcer Cleansing Rinsed/ Irrigated with Saline -Foul Odor after Cleansing No -Bioengineered Tissue No -Bleeding Controlled with Pressure -Treatment Response Procedure Tolerated Well #1- LEFT GROIN- POST OP -Time 16:04 -Correct Patient Yes -Correct Side, Site, Position Yes -Correct Procedure Yes -Procedure Performed Yes -Type of Procedure Debridement -Clinical Debridement Subcutaneous -Post Debridement Size (cm) - Length 13.0 -Post Debridement Size (cm) - Width 3.0 -Post Debridement Size (cm) - Depth 0.1 -Total Square Cm 39.00 -Wound/Ulcer Outcome Not Healed -Ulcer Cleansing Rinsed/ Irrigated with Saline -Foul Odor after Cleansing No -Bioengineered Tissue No -Bleeding Controlled with Pressure -Treatment Response Procedure Tolerated Well [See Physician Procedure note for Specifics] Pain Scale: 0-10 Numeric [Pain] -Is Patient Pain Free? Yes Neurological: Neuro grossly intact Psych/Mental Status: Normal Affect, Appropriate, Alert and oriented to time, place, person, mood and affect Debridement Note Post-Debridement Measurements/Treatment WC - Nurse 2 - General Ulcer CM Notes Start: 08/22/17 14:38 Freq: Status: Active Protocol: Activity Type Activity Date Activity User E-Sign Co-Sign Detail Recorded Client Recorded Date Recorded By Document 08/22/17 17:40 DV [id number] 08/24/17 01:11 DV Document 08/29/17 16:01 DV [id number] 08/29/17 16:09 DV 08/22/17 08/29/17 17:40 16:01 Wound Center Nurse 2 #2 Left Abdominal Fold -Time 16:07 -Correct Patient Yes -Correct Side, Site, Position Yes -Correct Procedure Yes -Procedure Performed Yes -Type of Procedure Debridement -Clinical Debridement Subcutaneous -Post Debridement Size (cm) - Length 23.0 -Post Debridement Size (cm) - Width 6.5 -Post Debridement Size (cm) - Depth 0.1 -Total Square Cm 149.50 -Wound/Ulcer Outcome Not Healed -Ulcer Cleansing Rinsed/ Irrigated with Saline -Foul Odor after Cleansing No -Bioengineered Tissue No -Bleeding Controlled with Pressure -Treatment Response Procedure Tolerated Well #1- LEFT GROIN- POST OP -Time 17:40 16:04 -Correct Patient Yes Yes -Correct Side, Site, Position Yes Yes -Correct Procedure Yes Yes -Procedure Performed Yes Yes -Type of Procedure Debridement Debridement -Clinical Debridement Subcutaneous Subcutaneous -Post Debridement Size (cm) - Length 35.0 13.0 -Post Debridement Size (cm) - Width 5.0 3.0 -Post Debridement Size (cm) - Depth 4.8 0.1 -Total Square Cm 175.00 39.00 -Wound/Ulcer Outcome Not Healed Not Healed -Ulcer Cleansing Rinsed/ Rinsed/ Irrigated with Irrigated with Saline Saline -Foul Odor after Cleansing No No -Bioengineered Tissue No No -Bleeding Controlled with NA Pressure -Treatment Response Procedure Procedure Tolerated Well Tolerated Well Pain Scale: 0-10 Numeric Is Patient Pain Free? Yes Yes Wound debrided: Left lower abdominal fold Laterality: Left Type of Debridement: Selective debridement Anesthesia Used: 5% Lidocaine Gel Depth: in the subcutaneous layer Percentage of wound debrided: 50 Instrument Used: 7mm curette Tissue Removed: Slough and hypertrophied epithelialized skin Severity: Fat Layer Exposed Amount of bleeding with debridement: Mild Bleeding Controlled with: Pressure Patient tolerated procedure well - Additional Wound Wound debrided: Left groin/pannus Laterality: Left Type of Debridement: Selective debridement Anesthesia Used: 5% Lidocaine Gel Depth: in the subcutaneous layer Percentage of wound debrided: 50 Instrument Used: 7mm curette Tissue Removed: Slough and fibrous tissue Severity: Fat Layer Exposed Amount of bleeding with debridement: Mild Bleeding Controlled with: Pressure Patient tolerated procedure: Patient tolerated procedure well Assessment/Plan Assessment: Nonhealing postsurgical wound left groin status post surgical excision of necrotizing fasciitis. Bilateral lower extremity edema. Morbid obesity. Type 2 diabetes mellitus Plan: The patient was seen and examined at the wound center today and was updated on the plan of care. A subcutaneous debridement was performed today. The patient tolerated the procedure well. The patients wound care will consist of:applying Dakins wet-to-dry dressing changes daily and using melgisorb as needed for heavy drainage. Wound cultures were reviewed and negative. Baseline bloodwork reviewed which demonstrated a slightly low pre-albumin and patient was advised to use Glucerna or high-protein with meals. Previous records were requested for continuity of care. Patient educated on the importance of diet on wound healing and instructed to increase protein and vitamin C intake. Patient verbalized understanding. Patient will follow up at wound healing center in one week or sooner if needed. This note was generated with [employer] dictation software. It may contain incorrect words, spelling, and punctuation that were not noted in checking the note before signing. Code Visit 111xxx-113xx: 06086 Jessica subq tissue 20 sq cm/< Add On Codes: [id number] Jessica subq tissue add-on
[2017-09-05 15:05] VITALS: BP 150/77; PULSE 90; RESP 16; TEMP 36.4
--- NOTE | 2017-09-05 19:34 | PCM.WC.PN ---
(1) Non-healing surgical wound of left groin Status: Acute Qualifiers: Code(s): T81.89XA - Other complications of procedures, not elsewhere classified, initial encounter (2) Diabetic neuropathy Status: Acute Code(s): E11.40 - Type 2 diabetes mellitus with diabetic neuropathy, unspecified (3) History of necrotising fasciitis Status: Acute Code(s): Z87.39 - Personal history of other diseases of the musculoskeletal system and connective tissue (4) Lymphedema of both lower extremities Status: Acute Code(s): I89.0 - Lymphedema, not elsewhere classified (5) Morbid obesity Status: Acute Code(s): E66.01 - Morbid (severe) obesity due to excess calories (6) Type 2 diabetes mellitus Status: Acute Qualifiers: Code(s): E11.9 - Type 2 diabetes mellitus without complications Type of Wound Date of Service: 09/05/17 Chief Complaint: Nonhealing wound status post surgical excision of necrotizing fasciitis left groin History of Wound: 46-year-old white male who presents to the wound healing center today with complaint of left groin ulceration status post surgical excision of necrotizing fasciitis. He is a past medical history which is significant for that of type 2 diabetes mellitus, gout, diabetic neuropathy, schizophrenia, bilateral lymphedema, and schizophrenia. The patient states that what initially started as a pimple in his left groin progressed to necrotizing fasciitis and he had to have this surgically debrided in April 2017. He was admitted to [facility] weeks and then [facility] afterwards. He states that the groin ulcer which extends to his left lower abdomen has been slowly improving and he has been doing daily Aquacel AG dressings with an ABD for the drainage. He does state that he has had 3 wound vacs in the past which were unable to be utilized due to the location of his wound. He denies any foul-smelling discharge or systemic signs of infection at this time. The patient otherwise denies any fever, chills, nausea, vomiting, shortness of breath, chest pain or pressure, palpitations, orthopnea, syncope or presyncopal episodes. Progress of Wound: Wound is stable and slowly improving, wound bed is moist and clean and without signs of infection at this time. There was a bridge of skin that has epithelialized and now made into 2 separate wounds wound 1 left groin and wound to left lower abdominal fold - Physical Exam Vital Signs Temp Pulse Resp BP 97.5 F L 90 16 150/77 H 09/05/17 15:05 09/05/17 15:05 09/05/17 15:05 09/05/17 15:05 General: Alert, Oriented x3, Cooperative, No apparent distress HEENT: Atraumatic Cardiovascular: Regular rate Extremities: No clubbing, No cyanosis, No edema Skin: Ulcer/ Wound - Ulcer present left pannus and left lower abdominal fold with moderate amount of slough present, no signs of infection at this time and specifically no increase in drainage, erythema, or tenderness. There are some areas of hyper granular toward tissue which was removed status post debridement. Bleeding was controlled with silver nitrate. Neurological: Neuro grossly intact Psych/Mental Status: Normal Affect, Appropriate, Alert and oriented to time, place, person, mood and affect Debridement Note Post-Debridement Measurements/Treatment WC - Nurse 2 - General Ulcer CM Notes Start: 08/22/17 14:38 Freq: Status: Active Protocol: Activity Type Activity Date Activity User E-Sign Co-Sign Detail Recorded Client Recorded Date Recorded By Document 08/22/17 17:40 DV [id number] 08/24/17 01:11 DV Document 08/29/17 16:01 DV [id number] 08/29/17 16:09 DV Document 09/05/17 15:46 JS [id number] 09/05/17 15:50 08/22/17 08/29/17 09/05/17 17:40 16:01 15:46 Wound Center Nurse 2 #2 Left Abdominal Fold -Time 16:07 15:46 -Correct Patient Yes Yes -Correct Side, Site, Position Yes Yes -Correct Procedure Yes Yes -Procedure Performed Yes Yes -Type of Procedure Debridement Debridement -Clinical Debridement Subcutaneous Subcutaneous -Post Debridement Size (cm) - Length 23.0 5.0 -Post Debridement Size (cm) - Width 6.5 22.6 -Post Debridement Size (cm) - Depth 0.1 0.1 -Total Square Cm 149.50 113.00 -Wound/Ulcer Outcome Not Healed Not Healed -Ulcer Cleansing Rinsed/ Rinsed/ Irrigated with Irrigated with Saline Saline -Foul Odor after Cleansing No No -Bioengineered Tissue No No -Topical Lidocaine (%) 4 -Lidocaine (ml) 20 -Bleeding Controlled with Pressure Pressure -Other SILVER NITRATE -Treatment Response Procedure Procedure Tolerated Well Tolerated Well #1- LEFT GROIN- POST OP -Time 17:40 16:04 15:49 -Correct Patient Yes Yes Yes -Correct Side, Site, Position Yes Yes Yes -Correct Procedure Yes Yes Yes -Procedure Performed Yes Yes Yes -Type of Procedure Debridement Debridement Debridement -Clinical Debridement Subcutaneous Subcutaneous Subcutaneous -Post Debridement Size (cm) - Length 35.0 13.0 3.5 -Post Debridement Size (cm) - Width 5.0 3.0 12.5 -Post Debridement Size (cm) - Depth 4.8 0.1 0.1 -Total Square Cm 175.00 39.00 43.75 -Wound/Ulcer Outcome Not Healed Not Healed Not Healed -Ulcer Cleansing Rinsed/ Rinsed/ Rinsed/ Irrigated with Irrigated with Irrigated with Saline Saline Saline -Foul Odor after Cleansing No No No -Bioengineered Tissue No No No -Topical Lidocaine (%) 4 -Lidocaine (ml) 20 -Bleeding Controlled with NA Pressure Pressure -Treatment Response Procedure Procedure Procedure Tolerated Well Tolerated Well Tolerated Well Pain Scale: 0-10 Numeric Is Patient Pain Free? Yes Yes Yes Wound debrided: Left pannus Laterality: Left Type of Debridement: Selective debridement Anesthesia Used: 5% Lidocaine Gel Depth: in the subcutaneous layer Percentage of wound debrided: 50 Instrument Used: 7mm curette Tissue Removed: Slough and hyper granular Tory tissue Severity: Fat Layer Exposed Amount of bleeding with debridement: Mild Bleeding Controlled with: Silver Nitrate Patient tolerated procedure well - Additional Wound Wound debrided: Left lower abdominal fold Laterality: Left Type of Debridement: Selective debridement Anesthesia Used: 5% Lidocaine Gel Depth: in the subcutaneous layer Percentage of wound debrided: 50 Instrument Used: 7mm curette Tissue Removed: Slough and hyper granular Tory tissue Severity: Fat Layer Exposed Amount of bleeding with debridement: Mild Bleeding Controlled with: Pressure, Silver Nitrate Patient tolerated procedure: Patient tolerated procedure well Assessment/Plan Assessment: Nonhealing postsurgical wound left groin status post surgical excision of necrotizing fasciitis. Bilateral lower extremity edema. Morbid obesity. Type 2 diabetes mellitus Plan: The patient was seen and examined at the wound center today and was updated on the plan of care. A subcutaneous debridement was performed today. The patient tolerated the procedure well. The patients wound care will consist of:applying Dakins wet-to-dry dressing changes every other day and using melgisorb on alternating days. Wound cultures were reviewed and negative. Baseline bloodwork reviewed which demonstrated a slightly low pre-albumin and patient was advised to use Glucerna or high-protein with meals. Previous records were requested for continuity of care. Patient educated on the importance of diet on wound healing and instructed to increase protein and vitamin C intake. Patient verbalized understanding. Patient will follow up at wound healing center in one week or sooner if needed. Plastic surgery consultation pending at this time. This note was generated with [employer] dictation software. It may contain incorrect words, spelling, and punctuation that were not noted in checking the note before signing. Code Visit 111xxx-113xx: 16700 Jessica subq tissue 20 sq cm/< Add On Codes: [id number] Jessica subq tissue add-on
--- NOTE | 2017-09-09 19:39 | PN.PCM_ITS ---
(1) Non-healing surgical wound of left groin Status: Acute Qualifiers: Code(s): T81.89XA - Other complications of procedures, not elsewhere classified , initial encounter (2) Diabetic neuropathy Status: Acute Code(s): E11.40 - Type 2 diabetes mellitus with diabetic neuropathy, unspecified (3) History of necrotising fasciitis Status: Acute Code(s): Z87.39 - Personal history of other diseases of the musculoskeletal system and connective tissue (4) Lymphedema of both lower extremities Status: Acute Code(s): I89.0 - Lymphedema, not elsewhere classified (5) Morbid obesity Status: Acute Code(s): E66.01 - Morbid (severe) obesity due to excess calories (6) Type 2 diabetes mellitus Status: Acute Qualifiers: Code(s): E11.9 - Type 2 diabetes mellitus without complications Type of Wound Date of Service: 09/05/17 Chief Complaint: Nonhealing wound status post surgical excision of necrotizing fasciitis left groin History of Wound: 46-year-old white male who presents to the wound healing center today with complaint of left groin ulceration status post surgical excision of necrotizing fasciitis. He is a past medical history which is significant for that of type 2 diabetes mellitus, gout, diabetic neuropathy, schizophrenia, bilateral lymphedema, and schizophrenia. The patient states that what initially started as a pimple in his left groin progressed to necrotizing fasciitis and he had to have this surgically debrided in April 2017. He was admitted to [facility] for [facility] weeks and then [facility] afterwards. He states that the groin ulcer which extends to his left lower abdomen has been slowly improving and he has been doing daily Aquacel AG dressings with an ABD for the drainage. He does state that he has had 3 wound vacs in the past which were unable to be utilized due to the location of his wound. He denies any foul-smelling discharge or systemic signs of infection at this time. The patient otherwise denies any fever, chills, nausea, vomiting, shortness of breath, chest pain or pressure, palpitations, orthopnea, syncope or presyncopal episodes. Progress of Wound: Wound is stable and slowly improving, wound bed is moist and clean and without signs of infection at this time. There was a bridge of skin that has epithelialized and now made into 2 separate wounds wound 1 left groin and wound to left lower abdominal fold - Physical Exam Vital Signs Temp Pulse Resp BP 97.5 F L 90 16 150/77 H 09/05/17 15:05 09/05/17 15:05 09/05/17 15:05 09/05/17 15:05 General: Alert, Oriented x3, Cooperative, No apparent distress HEENT: Atraumatic Cardiovascular: Regular rate Extremities: No clubbing, No cyanosis, No edema Skin: Ulcer/ Wound - Ulcer present left pannus and left lower abdominal fold with moderate amount of slough present, no signs of infection at this time and specifically no increase in drainage, erythema, or tenderness. There are some areas of hyper granular toward tissue which was removed status post debridement. Bleeding was controlled with silver nitrate. Neurological: Neuro grossly intact Psych/Mental Status: Normal Affect, Appropriate, Alert and oriented to time, place, person, mood and affect Debridement Note Post-Debridement Measurements/Treatment WC - Nurse 2 - General Ulcer CM Notes Start: 08/22/17 14:38 Freq: Status: Active Protocol: Activity Type Activity Date Activity User E-Sign Co-Sign Detail Recorded Client Recorded Date Recorded By Document 08/22/17 17:40 DV [id number] 08/24/17 01:11 DV Document 08/29/17 16:01 DV [id number] 08/29/17 16:09 DV Document 09/05/17 15:46 JS [id number] 09/05/17 15:50 08/22/17 08/29/17 09/05/17 17:40 16:01 15:46 Wound Center Nurse 2 #2 Left Abdominal Fold -Time 16:07 15:46 -Correct Patient Yes Yes -Correct Side, Site, Position Yes Yes -Correct Procedure Yes Yes -Procedure Performed Yes Yes -Type of Procedure Debridement Debridement -Clinical Debridement Subcutaneous Subcutaneous -Post Debridement Size (cm) - Length 23.0 5.0 -Post Debridement Size (cm) - Width 6.5 22.6 -Post Debridement Size (cm) - Depth 0.1 0.1 -Total Square Cm 149.50 113.00 -Wound/Ulcer Outcome Not Healed Not Healed -Ulcer Cleansing Rinsed/ Rinsed/ Irrigated with Irrigated with Saline Saline -Foul Odor after Cleansing No No -Bioengineered Tissue No No -Topical Lidocaine (%) 4 -Lidocaine (ml) 20 -Bleeding Controlled with Pressure Pressure -Other SILVER NITRATE -Treatment Response Procedure Procedure Tolerated Well Tolerated Well #1- LEFT GROIN- POST OP -Time 17:40 16:04 15:49 -Correct Patient Yes Yes Yes -Correct Side, Site, Position Yes Yes Yes -Correct Procedure Yes Yes Yes -Procedure Performed Yes Yes Yes -Type of Procedure Debridement Debridement Debridement -Clinical Debridement Subcutaneous Subcutaneous Subcutaneous -Post Debridement Size (cm) - Length 35.0 13.0 3.5 -Post Debridement Size (cm) - Width 5.0 3.0 12.5 -Post Debridement Size (cm) - Depth 4.8 0.1 0.1 -Total Square Cm 175.00 39.00 43.75 -Wound/Ulcer Outcome Not Healed Not Healed Not Healed -Ulcer Cleansing Rinsed/ Rinsed/ Rinsed/ Irrigated with Irrigated with Irrigated with Saline Saline Saline -Foul Odor after Cleansing No No No -Bioengineered Tissue No No No -Topical Lidocaine (%) 4 -Lidocaine (ml) 20 -Bleeding Controlled with NA Pressure Pressure -Treatment Response Procedure Procedure Procedure Tolerated Well Tolerated Well Tolerated Well Pain Scale: 0-10 Numeric Is Patient Pain Free? Yes Yes Yes Wound debrided: Left pannus Laterality: Left Type of Debridement: Selective debridement Anesthesia Used: 5% Lidocaine Gel Depth: in the subcutaneous layer Percentage of wound debrided: 50 Instrument Used: 7mm curette Tissue Removed: Slough and hyper granular Tory tissue Severity: Fat Layer Exposed Amount of bleeding with debridement: Mild Bleeding Controlled with: Silver Nitrate Patient tolerated procedure well - Additional Wound Wound debrided: Left lower abdominal fold Laterality: Left Type of Debridement: Selective debridement Anesthesia Used: 5% Lidocaine Gel Depth: in the subcutaneous layer Percentage of wound debrided: 50 Instrument Used: 7mm curette Tissue Removed: Slough and hyper granular Tory tissue Severity: Fat Layer Exposed Amount of bleeding with debridement: Mild Bleeding Controlled with: Pressure, Silver Nitrate Patient tolerated procedure: Patient tolerated procedure well Assessment/Plan Assessment: Nonhealing postsurgical wound left groin status post surgical excision of necrotizing fasciitis. Bilateral lower extremity edema. Morbid obesity. Type 2 diabetes mellitus Plan: The patient was seen and examined at the wound center today and was updated on the plan of care. A subcutaneous debridement was performed today. The patient tolerated the procedure well. The patients wound care will consist of:applying Dakins wet-to-dry dressing changes every other day and using melgisorb on alternating days. Wound cultures were reviewed and negative. Baseline bloodwork reviewed which demonstrated a slightly low pre-albumin and patient was advised to use Glucerna or high-protein with meals. Previous records were requested for continuity of care. Patient educated on the importance of diet on wound healing and instructed to increase protein and vitamin C intake. Patient verbalized understanding. Patient will follow up at wound healing center in one week or sooner if needed. Plastic surgery consultation pending at this time. This note was generated with [employer] dictation software. It may contain incorrect words, spelling, and punctuation that were not noted in checking the note before signing. Code Visit 111xxx-113xx: 82799 Jessica subq tissue 20 sq cm/< Add On Codes: [id number] Jessica subq tissue add-on
[2017-09-12 15:37] VITALS: BP 147/77; PULSE 86; RESP 18; TEMP 36
--- NOTE | 2017-09-12 20:36 | PCM.WC.PN ---
(1) Non-healing surgical wound of left groin Status: Acute Qualifiers: Code(s): T81.89XA - Other complications of procedures, not elsewhere classified, initial encounter (2) Diabetic neuropathy Status: Acute Code(s): E11.40 - Type 2 diabetes mellitus with diabetic neuropathy, unspecified (3) History of necrotising fasciitis Status: Acute Code(s): Z87.39 - Personal history of other diseases of the musculoskeletal system and connective tissue (4) Lymphedema of both lower extremities Status: Acute Code(s): I89.0 - Lymphedema, not elsewhere classified (5) Morbid obesity Status: Acute Code(s): E66.01 - Morbid (severe) obesity due to excess calories (6) Type 2 diabetes mellitus Status: Acute Qualifiers: Code(s): E11.9 - Type 2 diabetes mellitus without complications Type of Wound Date of Service: 09/12/17 Chief Complaint: Nonhealing wound status post surgical excision of necrotizing fasciitis left groin History of Wound: 46-year-old white male who presents to the wound healing center today with complaint of left groin ulceration status post surgical excision of necrotizing fasciitis. He is a past medical history which is significant for that of type 2 diabetes mellitus, gout, diabetic neuropathy, schizophrenia, bilateral lymphedema, and schizophrenia. The patient states that what initially started as a pimple in his left groin progressed to necrotizing fasciitis and he had to have this surgically debrided in April 2017. He was admitted to [facility] for 2 weeks and then [facility] for 6 weeks afterwards. He states that the groin ulcer which extends to his left lower abdomen has been slowly improving and he has been doing daily Aquacel AG dressings with an ABD for the drainage. He does state that he has had 3 wound vacs in the past which were unable to be utilized due to the location of his wound. He denies any foul-smelling discharge or systemic signs of infection at this time. The patient otherwise denies any fever, chills, nausea, vomiting, shortness of breath, chest pain or pressure, palpitations, orthopnea, syncope or presyncopal episodes. Progress of Wound: Wound is stable and slowly improving, wound bed is moist and clean and without signs of infection at this time. There was a bridge of skin that has epithelialized and now made into 2 separate wounds wound 1 left groin and wound to left lower abdominal fold - Physical Exam Vital Signs Temp Pulse Resp BP 96.8 F L 86 18 147/77 H 09/12/17 15:37 09/12/17 15:37 09/12/17 15:37 09/12/17 15:37 General: Alert, Oriented x3, Cooperative, No apparent distress HEENT: Atraumatic Oral: Moist Mucosa Cardiovascular: Regular rate Skin: Ulcer/ Wound - Left groin and left abdominal fold ulcer present with mild amount of slough present. Wound bed edges are slightly macerated, no signs of infection at this time. Wound pocket depth continues to improve slowly Neurological: Neuro grossly intact Psych/Mental Status: Normal Affect, Alert and oriented to time, place, person, mood and affect Debridement Note Post-Debridement Measurements/Treatment WC - Nurse 2 - General Ulcer CM Notes Start: 08/22/17 14:38 Freq: Status: Active Protocol: Activity Type Activity Date Activity User E-Sign Co-Sign Detail Recorded Client Recorded Date Recorded By Document 08/22/17 17:40 DV [id number] 08/24/17 01:11 DV Document 08/29/17 16:01 DV [id number] 08/29/17 16:09 DV Document 09/05/17 15:46 JS [id number] 09/05/17 15:50 JS Document 09/12/17 16:57 DV [id number] 09/12/17 17:05 DV 08/22/17 08/29/17 09/05/17 17:40 16:01 15:46 Wound Center Nurse 2 #2 Left Abdominal Fold -Time 16:07 15:46 -Correct Patient Yes Yes -Correct Side, Site, Position Yes Yes -Correct Procedure Yes Yes -Procedure Performed Yes Yes -Type of Procedure Debridement Debridement -Clinical Debridement Subcutaneous Subcutaneous -Post Debridement Size (cm) - Length 23.0 5.0 -Post Debridement Size (cm) - Width 6.5 22.6 -Post Debridement Size (cm) - Depth 0.1 0.1 -Total Square Cm 149.50 113.00 -Wound/Ulcer Outcome Not Healed Not Healed -Ulcer Cleansing Rinsed/ Rinsed/ Irrigated with Irrigated with Saline Saline -Foul Odor after Cleansing No No -Bioengineered Tissue No No -Topical Lidocaine (%) 4 -Lidocaine (ml) 20 -Bleeding Controlled with Pressure Pressure -Other SILVER NITRATE -Treatment Response Procedure Procedure Tolerated Well Tolerated Well #1- LEFT GROIN- POST OP -Time 17:40 16:04 15:49 -Correct Patient Yes Yes Yes -Correct Side, Site, Position Yes Yes Yes -Correct Procedure Yes Yes Yes -Procedure Performed Yes Yes Yes -Type of Procedure Debridement Debridement Debridement -Clinical Debridement Subcutaneous Subcutaneous Subcutaneous -Post Debridement Size (cm) - Length 35.0 13.0 3.5 -Post Debridement Size (cm) - Width 5.0 3.0 12.5 -Post Debridement Size (cm) - Depth 4.8 0.1 0.1 -Total Square Cm 175.00 39.00 43.75 -Wound/Ulcer Outcome Not Healed Not Healed Not Healed -Ulcer Cleansing Rinsed/ Rinsed/ Rinsed/ Irrigated with Irrigated with Irrigated with Saline Saline Saline -Foul Odor after Cleansing No No No -Bioengineered Tissue No No No -Topical Lidocaine (%) 4 -Lidocaine (ml) 20 -Bleeding Controlled with NA Pressure Pressure -Treatment Response Procedure Procedure Procedure Tolerated Well Tolerated Well Tolerated Well Pain Scale: 0-10 Numeric Is Patient Pain Free? Yes Yes Yes 09/12/17 16:57 Wound Center Nurse 2 #2 Left Abdominal Fold -Time 16:58 -Correct Patient Yes -Correct Side, Site, Position Yes -Correct Procedure Yes -Procedure Performed Yes -Type of Procedure Debridement -Clinical Debridement Subcutaneous -Post Debridement Size (cm) - Length 2.6 -Post Debridement Size (cm) - Width 12.3 -Post Debridement Size (cm) - Depth 0.1 -Total Square Cm 31.98 -Wound/Ulcer Outcome Not Healed -Ulcer Cleansing Rinsed/ Irrigated with Saline -Foul Odor after Cleansing No -Bioengineered Tissue No -Topical Lidocaine (%) -Lidocaine (ml) -Bleeding Controlled with Pressure -Other -Treatment Response Procedure Tolerated Well #1- LEFT GROIN- POST OP -Time 16:58 -Correct Patient Yes -Correct Side, Site, Position Yes -Correct Procedure Yes -Procedure Performed Yes -Type of Procedure Debridement -Clinical Debridement Subcutaneous -Post Debridement Size (cm) - Length 5.4 -Post Debridement Size (cm) - Width 19.5 -Post Debridement Size (cm) - Depth 0.1 -Total Square Cm 105.30 -Wound/Ulcer Outcome Not Healed -Ulcer Cleansing Rinsed/ Irrigated with Saline -Foul Odor after Cleansing No -Bioengineered Tissue No -Topical Lidocaine (%) -Lidocaine (ml) -Bleeding Controlled with Pressure -Treatment Response Procedure Tolerated Well Pain Scale: 0-10 Numeric Is Patient Pain Free? Yes Wound debrided: Left groin ulcer Laterality: Left Type of Debridement: Selective debridement Anesthesia Used: 5% Lidocaine Gel Depth: in the subcutaneous layer Percentage of wound debrided: 50 Instrument Used: 7mm curette Tissue Removed: Slough and fibrous tissue Severity: Fat Layer Exposed Amount of bleeding with debridement: Mild Bleeding Controlled with: Pressure Patient tolerated procedure well - Additional Wound Wound debrided: Left abdominal fold ulcer Laterality: Left Type of Debridement: Selective debridement Anesthesia Used: 5% Lidocaine Gel Depth: Down to and including healthy tissue, in the subcutaneous layer Percentage of wound debrided: 50 Instrument Used: 7mm curette Tissue Removed: Slough and fibrous tissue Severity: Fat Layer Exposed Amount of bleeding with debridement: Mild Bleeding Controlled with: Pressure Patient tolerated procedure: Patient tolerated procedure well Assessment/Plan Assessment: Nonhealing postsurgical wound left groin status post surgical excision of necrotizing fasciitis. Bilateral lower extremity edema. Morbid obesity. Type 2 diabetes mellitus Plan: The patient was seen and examined at the wound center today and was updated on the plan of care. A subcutaneous debridement was performed today. The patient tolerated the procedure well. The patients wound care will consist of: Taking a break from the silver dressings and Dakin solution and utilizing Aquacel dressings daily, hopefully this will help with the maceration and heavy drainage. Wound cultures were reviewed and negative. Baseline bloodwork reviewed which demonstrated a slightly low pre-albumin and patient was advised to use Glucerna or high-protein with meals. Previous records were requested for continuity of care. Patient educated on the importance of diet on wound healing and instructed to increase protein and vitamin C intake. Patient verbalized understanding. Patient will follow up at wound healing center in one week or sooner if needed. Plastic surgery consultation pending at this time. This note was generated with [employer] software. It may contain incorrect words, spelling, and punctuation that were not noted in checking the note before signing. Code Visit 111xxx-113xx: 27356 Jessica subq tissue 20 sq cm/< Add On Codes: [id number] Jessica subq tissue add-on
--- NOTE | 2017-09-18 11:42 | PN.PCM_ITS ---
(1) Non-healing surgical wound of left groin Status: Acute Qualifiers: Code(s): T81.89XA - Other complications of procedures, not elsewhere classified , initial encounter (2) Diabetic neuropathy Status: Acute Code(s): E11.40 - Type 2 diabetes mellitus with diabetic neuropathy, unspecified (3) History of necrotising fasciitis Status: Acute Code(s): Z87.39 - Personal history of other diseases of the musculoskeletal system and connective tissue (4) Lymphedema of both lower extremities Status: Acute Code(s): I89.0 - Lymphedema, not elsewhere classified (5) Morbid obesity Status: Acute Code(s): E66.01 - Morbid (severe) obesity due to excess calories (6) Type 2 diabetes mellitus Status: Acute Qualifiers: Code(s): E11.9 - Type 2 diabetes mellitus without complications Type of Wound Date of Service: 09/12/17 Chief Complaint: Nonhealing wound status post surgical excision of necrotizing fasciitis left groin History of Wound: 46-year-old white male who presents to the wound healing center today with complaint of left groin ulceration status post surgical excision of necrotizing fasciitis. He is a past medical history which is significant for that of type 2 diabetes mellitus, gout, diabetic neuropathy, schizophrenia, bilateral lymphedema, and schizophrenia. The patient states that what initially started as a pimple in his left groin progressed to necrotizing fasciitis and he had to have this surgically debrided in April 2017. He was admitted to [facility] for 2 weeks and then [facility] for 6 weeks afterwards. He states that the groin ulcer which extends to his left lower abdomen has been slowly improving and he has been doing daily Aquacel AG dressings with an ABD for the drainage. He does state that he has had 3 wound vacs in the past which were unable to be utilized due to the location of his wound. He denies any foul-smelling discharge or systemic signs of infection at this time. The patient otherwise denies any fever, chills, nausea, vomiting, shortness of breath, chest pain or pressure, palpitations, orthopnea, syncope or presyncopal episodes. Progress of Wound: Wound is stable and slowly improving, wound bed is moist and clean and without signs of infection at this time. There was a bridge of skin that has epithelialized and now made into 2 separate wounds wound 1 left groin and wound to left lower abdominal fold - Physical Exam Vital Signs Temp Pulse Resp BP 96.8 F L 86 18 147/77 H 09/12/17 15:37 09/12/17 15:37 09/12/17 15:37 09/12/17 15:37 General: Alert, Oriented x3, Cooperative, No apparent distress HEENT: Atraumatic Oral: Moist Mucosa Cardiovascular: Regular rate Skin: Ulcer/ Wound - Left groin and left abdominal fold ulcer present with mild amount of slough present. Wound bed edges are slightly macerated, no signs of infection at this time. Wound pocket depth continues to improve slowly Neurological: Neuro grossly intact Psych/Mental Status: Normal Affect, Alert and oriented to time, place, person, mood and affect Debridement Note Post-Debridement Measurements/Treatment WC - Nurse 2 - General Ulcer CM Notes Start: 08/22/17 14:38 Freq: Status: Active Protocol: Activity Type Activity Date Activity User E-Sign Co-Sign Detail Recorded Client Recorded Date Recorded By Document 08/22/17 17:40 DV [id number] 08/24/17 01:11 DV Document 08/29/17 16:01 DV [id number] 08/29/17 16:09 DV Document 09/05/17 15:46 JS [id number] 09/05/17 15:50 JS Document 09/12/17 16:57 DV [id number] 09/12/17 17:05 DV 08/22/17 08/29/17 09/05/17 17:40 16:01 15:46 Wound Center Nurse 2 #2 Left Abdominal Fold -Time 16:07 15:46 -Correct Patient Yes Yes -Correct Side, Site, Position Yes Yes -Correct Procedure Yes Yes -Procedure Performed Yes Yes -Type of Procedure Debridement Debridement -Clinical Debridement Subcutaneous Subcutaneous -Post Debridement Size (cm) - Length 23.0 5.0 -Post Debridement Size (cm) - Width 6.5 22.6 -Post Debridement Size (cm) - Depth 0.1 0.1 -Total Square Cm 149.50 113.00 -Wound/Ulcer Outcome Not Healed Not Healed -Ulcer Cleansing Rinsed/ Rinsed/ Irrigated with Irrigated with Saline Saline -Foul Odor after Cleansing No No -Bioengineered Tissue No No -Topical Lidocaine (%) 4 -Lidocaine (ml) 20 -Bleeding Controlled with Pressure Pressure -Other SILVER NITRATE -Treatment Response Procedure Procedure Tolerated Well Tolerated Well #1- LEFT GROIN- POST OP -Time 17:40 16:04 15:49 -Correct Patient Yes Yes Yes -Correct Side, Site, Position Yes Yes Yes -Correct Procedure Yes Yes Yes -Procedure Performed Yes Yes Yes -Type of Procedure Debridement Debridement Debridement -Clinical Debridement Subcutaneous Subcutaneous Subcutaneous -Post Debridement Size (cm) - Length 35.0 13.0 3.5 -Post Debridement Size (cm) - Width 5.0 3.0 12.5 -Post Debridement Size (cm) - Depth 4.8 0.1 0.1 -Total Square Cm 175.00 39.00 43.75 -Wound/Ulcer Outcome Not Healed Not Healed Not Healed -Ulcer Cleansing Rinsed/ Rinsed/ Rinsed/ Irrigated with Irrigated with Irrigated with Saline Saline Saline -Foul Odor after Cleansing No No No -Bioengineered Tissue No No No -Topical Lidocaine (%) 4 -Lidocaine (ml) 20 -Bleeding Controlled with NA Pressure Pressure -Treatment Response Procedure Procedure Procedure Tolerated Well Tolerated Well Tolerated Well Pain Scale: 0-10 Numeric Is Patient Pain Free? Yes Yes Yes 09/12/17 16:57 Wound Center Nurse 2 #2 Left Abdominal Fold -Time 16:58 -Correct Patient Yes -Correct Side, Site, Position Yes -Correct Procedure Yes -Procedure Performed Yes -Type of Procedure Debridement -Clinical Debridement Subcutaneous -Post Debridement Size (cm) - Length 2.6 -Post Debridement Size (cm) - Width 12.3 -Post Debridement Size (cm) - Depth 0.1 -Total Square Cm 31.98 -Wound/Ulcer Outcome Not Healed -Ulcer Cleansing Rinsed/ Irrigated with Saline -Foul Odor after Cleansing No -Bioengineered Tissue No -Topical Lidocaine (%) -Lidocaine (ml) -Bleeding Controlled with Pressure -Other -Treatment Response Procedure Tolerated Well #1- LEFT GROIN- POST OP -Time 16:58 -Correct Patient Yes -Correct Side, Site, Position Yes -Correct Procedure Yes -Procedure Performed Yes -Type of Procedure Debridement -Clinical Debridement Subcutaneous -Post Debridement Size (cm) - Length 5.4 -Post Debridement Size (cm) - Width 19.5 -Post Debridement Size (cm) - Depth 0.1 -Total Square Cm 105.30 -Wound/Ulcer Outcome Not Healed -Ulcer Cleansing Rinsed/ Irrigated with Saline -Foul Odor after Cleansing No -Bioengineered Tissue No -Topical Lidocaine (%) -Lidocaine (ml) -Bleeding Controlled with Pressure -Treatment Response Procedure Tolerated Well Pain Scale: 0-10 Numeric Is Patient Pain Free? Yes Wound debrided: Left groin ulcer Laterality: Left Type of Debridement: Selective debridement Anesthesia Used: 5% Lidocaine Gel Depth: in the subcutaneous layer Percentage of wound debrided: 50 Instrument Used: 7mm curette Tissue Removed: Slough and fibrous tissue Severity: Fat Layer Exposed Amount of bleeding with debridement: Mild Bleeding Controlled with: Pressure Patient tolerated procedure well - Additional Wound Wound debrided: Left abdominal fold ulcer Laterality: Left Type of Debridement: Selective debridement Anesthesia Used: 5% Lidocaine Gel Depth: Down to and including healthy tissue, in the subcutaneous layer Percentage of wound debrided: 50 Instrument Used: 7mm curette Tissue Removed: Slough and fibrous tissue Severity: Fat Layer Exposed Amount of bleeding with debridement: Mild Bleeding Controlled with: Pressure Patient tolerated procedure: Patient tolerated procedure well Assessment/Plan Assessment: Nonhealing postsurgical wound left groin status post surgical excision of necrotizing fasciitis. Bilateral lower extremity edema. Morbid obesity. Type 2 diabetes mellitus Plan: The patient was seen and examined at the wound center today and was updated on the plan of care. A subcutaneous debridement was performed today. The patient tolerated the procedure well. The patients wound care will consist of: Taking a break from the silver dressings and Dakin solution and utilizing Aquacel dressings daily, hopefully this will help with the maceration and heavy drainage. Wound cultures were reviewed and negative. Baseline bloodwork reviewed which demonstrated a slightly low pre-albumin and patient was advised to use Glucerna or high-protein with meals. Previous records were requested for continuity of care. Patient educated on the importance of diet on wound healing and instructed to increase protein and vitamin C intake. Patient verbalized understanding. Patient will follow up at wound healing center in one week or sooner if needed. Plastic surgery consultation pending at this time. This note was generated with [employer] software. It may contain incorrect words, spelling, and punctuation that were not noted in checking the note before signing. Code Visit 111xxx-113xx: 64542 Jessica subq tissue 20 sq cm/< Add On Codes: [id number] Jessica subq tissue add-on
[2017-09-19 15:46] VITALS: PULSE 88; RESP 18; TEMP 36.3
--- NOTE | 2017-09-19 20:57 | PCM.WC.PN ---
(1) Non-healing surgical wound of left groin Status: Acute Qualifiers: Code(s): T81.89XA - Other complications of procedures, not elsewhere classified, initial encounter (2) Diabetic neuropathy Status: Acute Code(s): E11.40 - Type 2 diabetes mellitus with diabetic neuropathy, unspecified (3) History of necrotising fasciitis Status: Acute Code(s): Z87.39 - Personal history of other diseases of the musculoskeletal system and connective tissue (4) Lymphedema of both lower extremities Status: Acute Code(s): I89.0 - Lymphedema, not elsewhere classified (5) Morbid obesity Status: Acute Code(s): E66.01 - Morbid (severe) obesity due to excess calories (6) Type 2 diabetes mellitus Status: Acute Qualifiers: Code(s): E11.9 - Type 2 diabetes mellitus without complications Type of Wound Date of Service: 09/19/17 Chief Complaint: Nonhealing wound status post surgical excision of necrotizing fasciitis left groin History of Wound: 46-year-old white male who presents to the wound healing center today with complaint of left groin ulceration status post surgical excision of necrotizing fasciitis. He is a past medical history which is significant for that of type 2 diabetes mellitus, gout, diabetic neuropathy, schizophrenia, bilateral lymphedema, and schizophrenia. The patient states that what initially started as a pimple in his left groin progressed to necrotizing fasciitis and he had to have this surgically debrided in April 2017. He was admitted to [facility] for 2 weeks and then [facility] for 6 weeks afterwards. He states that the groin ulcer which extends to his left lower abdomen has been slowly improving and he has been doing daily Aquacel AG dressings with an ABD for the drainage. He does state that he has had 3 wound vacs in the past which were unable to be utilized due to the location of his wound. He denies any foul-smelling discharge or systemic signs of infection at this time. The patient otherwise denies any fever, chills, nausea, vomiting, shortness of breath, chest pain or pressure, palpitations, orthopnea, syncope or presyncopal episodes. Progress of Wound: Wound is stable and slowly improving, wound bed is moist and clean and without signs of infection at this time. There was a bridge of skin that has epithelialized and now made into 2 separate wounds wound 1 left groin and wound to left lower abdominal fold - Physical Exam Vital Signs Temp Pulse Resp BP 97.4 F L 88 18 147/77 H 09/19/17 15:46 09/19/17 15:46 09/19/17 15:46 09/12/17 15:37 General: Alert, Oriented x3, Cooperative, No apparent distress HEENT: Atraumatic Cardiovascular: Regular rate Skin: Ulcer/ Wound - Left abdominal fold ulcer and left groin ulcer moist wound bed with moderate amount of adherent slough, groin ulcer continues to tunnel, no signs of infection at this time such as increase in drainage or pain. Wound Measurements and Assessment WC - Nurse 1 - General Ulcer Measurement Start: 08/22/17 14:38 Freq: Status: Active Protocol: Activity Type Activity Date Activity User E-Sign Co-Sign Detail Recorded Client Recorded Date Recorded By Document 09/19/17 15:46 DL [id number] 09/19/17 15:54 DL 09/19/17 15:46 Wound Center Nurse 1 [Ulcer Assessment] #2 Left Abdominal Fold -Combined with other wound No -Current Size (cm) - Length 2.3 -Current Size (cm) - Width 11.3 -Current Size (cm) - Depth 0.1 -Total Square Cm 25.99 -Photo Taken No -Epithelialization Medium 34-66% -Tunneling No -Undermining/Tunneling No -Circular Undermining No -Classification - Thickness Full Thickness without Exposed Support Structure -Exudate Amt Medium (34-66%) -Exudate Type Serosanguineous -Wound Margin Flat & Intact -Granulation Amt Large (67-100%) -Granulation Quality Pale Essig -Slough/Fibrin Yes -Necrosis Amt Large (67-100%) -Necrotic Tissue Type Adherent Slough -Structure Exposed None/Limited to Skin Breakdown -Texture (Ienssa-wound Skin Appearance) Assessed Scarring Rash -Moisture (Inessa-wound Skin Appearance Assessed ) Maceration Weeping -Color (Inessa-wound Skin Appearance) No Abnormality Assessed -Temperature (Inessa-wound Skin No Abnormality Appearance) (Pt Warm) -Ulcer Cleansing Wound Cleanser -Foul Odor after Cleansing No -Anesthetic Used 4% Lidocaine Solution #1- LEFT GROIN- POST OP -Combined with other wound No -Current Size (cm) - Length 4.4 -Current Size (cm) - Width 22.0 -Current Size (cm) - Depth 0.1 -Total Square Cm 96.80 -Photo Taken No -Epithelialization Large 67-100% -Tunneling No -Undermining/Tunneling No -Classification - Thickness Full Thickness without Exposed Support Structure -Exudate Amt Medium (34-66%) -Exudate Type Serous -Wound Margin Flat & Intact -Granulation Amt Large (67-100%) -Granulation Quality Pale Essig -Slough/Fibrin Yes -Necrosis Amt Large (67-100%) -Necrotic Tissue Type Adherent Slough -Structure Exposed None/Limited to Skin Breakdown -Texture (Inessa-wound Skin Appearance) Assessed Localized Edema Scarring -Moisture (Inessa-wound Skin Appearance Assessed ) Maceration Weeping -Color (Inessa-wound Skin Appearance) No Abnormality Assessed -Temperature (Inessa-wound Skin No Abnormality Appearance) (Pt Warm) -Ulcer Cleansing Wound Cleanser -Foul Odor after Cleansing No -Anesthetic Used 4% Lidocaine Solution WC - Nurse 2 - General Ulcer CM Notes Start: 08/22/17 14:38 Freq: Status: Active Protocol: Activity Type Activity Date Activity User E-Sign Co-Sign Detail Recorded Client Recorded Date Recorded By Document 09/19/17 16:12 NELLY [id number] 09/19/17 16:19 NELLY 09/19/17 16:12 Wound Center Nurse 2 [Procedure/Treatment] #2 Left Abdominal Fold -Time 16:12 -Correct Patient Yes -Correct Side, Site, Position Yes -Correct Procedure Yes -Procedure Performed Yes -Type of Procedure Debridement -Clinical Debridement Subcutaneous -Post Debridement Size (cm) - Length 2.0 -Post Debridement Size (cm) - Width 11.6 -Post Debridement Size (cm) - Depth 0.1 -Total Square Cm 23.20 -Wound/Ulcer Outcome Not Healed -Ulcer Cleansing Rinsed/ Irrigated with Saline -Foul Odor after Cleansing No -Bioengineered Tissue No -Topical Lidocaine (%) 4 -Lidocaine (ml) 15 -Bleeding Controlled with NA -Treatment Response Procedure Tolerated Well #1- LEFT GROIN- POST OP -Time 16:13 -Correct Patient Yes -Correct Side, Site, Position Yes -Correct Procedure Yes -Procedure Performed Yes -Type of Procedure Debridement -Clinical Debridement Subcutaneous -Post Debridement Size (cm) - Length 4.1 -Post Debridement Size (cm) - Width 22.0 -Post Debridement Size (cm) - Depth 0.1 -Total Square Cm 90.20 -Wound/Ulcer Outcome Not Healed -Ulcer Cleansing Rinsed/ Irrigated with Saline -Foul Odor after Cleansing No -Bioengineered Tissue No -Topical Lidocaine (%) 4 -Lidocaine (ml) 5 -Bleeding Controlled with NA -Treatment Response Procedure Tolerated Well [See Physician Procedure note for Specifics] Pain Scale: 0-10 Numeric [Pain] -Is Patient Pain Free? Yes Neurological: Neuro grossly intact Psych/Mental Status: Normal Affect, Appropriate Debridement Note Post-Debridement Measurements/Treatment WC - Nurse 2 - General Ulcer CM Notes Start: 08/22/17 14:38 Freq: Status: Active Protocol: Activity Type Activity Date Activity User E-Sign Co-Sign Detail Recorded Client Recorded Date Recorded By Document 08/22/17 17:40 DV [id number] 08/24/17 01:11 DV Document 08/29/17 16:01 DV [id number] 08/29/17 16:09 DV Document 09/05/17 15:46 JS [id number] 09/05/17 15:50 JS Document 09/12/17 16:57 DV [id number] 09/12/17 17:05 DV Document 09/19/17 16:12 JS [id number] 09/19/17 16:19 JS 08/22/17 08/29/17 09/05/17 17:40 16:01 15:46 Wound Center Nurse 2 #2 Left Abdominal Fold -Time 16:07 15:46 -Correct Patient Yes Yes -Correct Side, Site, Position Yes Yes -Correct Procedure Yes Yes -Procedure Performed Yes Yes -Type of Procedure Debridement Debridement -Clinical Debridement Subcutaneous Subcutaneous -Post Debridement Size (cm) - Length 23.0 5.0 -Post Debridement Size (cm) - Width 6.5 22.6 -Post Debridement Size (cm) - Depth 0.1 0.1 -Total Square Cm 149.50 113.00 -Wound/Ulcer Outcome Not Healed Not Healed -Ulcer Cleansing Rinsed/ Rinsed/ Irrigated with Irrigated with Saline Saline -Foul Odor after Cleansing No No -Bioengineered Tissue No No -Topical Lidocaine (%) 4 -Lidocaine (ml) 20 -Bleeding Controlled with Pressure Pressure -Other SILVER NITRATE -Treatment Response Procedure Procedure Tolerated Well Tolerated Well #1- LEFT GROIN- POST OP -Time 17:40 16:04 15:49 -Correct Patient Yes Yes Yes -Correct Side, Site, Position Yes Yes Yes -Correct Procedure Yes Yes Yes -Procedure Performed Yes Yes Yes -Type of Procedure Debridement Debridement Debridement -Clinical Debridement Subcutaneous Subcutaneous Subcutaneous -Post Debridement Size (cm) - Length 35.0 13.0 3.5 -Post Debridement Size (cm) - Width 5.0 3.0 12.5 -Post Debridement Size (cm) - Depth 4.8 0.1 0.1 -Total Square Cm 175.00 39.00 43.75 -Wound/Ulcer Outcome Not Healed Not Healed Not Healed -Ulcer Cleansing Rinsed/ Rinsed/ Rinsed/ Irrigated with Irrigated with Irrigated with Saline Saline Saline -Foul Odor after Cleansing No No No -Bioengineered Tissue No No No -Topical Lidocaine (%) 4 -Lidocaine (ml) 20 -Bleeding Controlled with NA Pressure Pressure -Treatment Response Procedure Procedure Procedure Tolerated Well Tolerated Well Tolerated Well Pain Scale: 0-10 Numeric Is Patient Pain Free? Yes Yes Yes 18 09/19/17 16:57 16:12 Wound Center Nurse 2 #2 Left Abdominal Fold -Time 16:58 16:12 -Correct Patient Yes Yes -Correct Side, Site, Position Yes Yes -Correct Procedure Yes Yes -Procedure Performed Yes Yes -Type of Procedure Debridement Debridement -Clinical Debridement Subcutaneous Subcutaneous -Post Debridement Size (cm) - Length 2.6 2.0 -Post Debridement Size (cm) - Width 12.3 11.6 -Post Debridement Size (cm) - Depth 0.1 0.1 -Total Square Cm 31.98 23.20 -Wound/Ulcer Outcome Not Healed Not Healed -Ulcer Cleansing Rinsed/ Rinsed/ Irrigated with Irrigated with Saline Saline -Foul Odor after Cleansing No No -Bioengineered Tissue No No -Topical Lidocaine (%) 4 -Lidocaine (ml) 15 -Bleeding Controlled with Pressure NA -Other -Treatment Response Procedure Procedure Tolerated Well Tolerated Well #1- LEFT GROIN- POST OP -Time 16:58 16:13 -Correct Patient Yes Yes -Correct Side, Site, Position Yes Yes -Correct Procedure Yes Yes -Procedure Performed Yes Yes -Type of Procedure Debridement Debridement -Clinical Debridement Subcutaneous Subcutaneous -Post Debridement Size (cm) - Length 5.4 4.1 -Post Debridement Size (cm) - Width 19.5 22.0 -Post Debridement Size (cm) - Depth 0.1 0.1 -Total Square Cm 105.30 90.20 -Wound/Ulcer Outcome Not Healed Not Healed -Ulcer Cleansing Rinsed/ Rinsed/ Irrigated with Irrigated with Saline Saline -Foul Odor after Cleansing No No -Bioengineered Tissue No No -Topical Lidocaine (%) 4 -Lidocaine (ml) 5 -Bleeding Controlled with Pressure NA -Treatment Response Procedure Procedure Tolerated Well Tolerated Well Pain Scale: 0-10 Numeric Is Patient Pain Free? Yes Yes Wound debrided: Left groin ulcer Laterality: Left Type of Debridement: Excisional debridement Anesthesia Used: 5% Lidocaine Gel Depth: in the subcutaneous layer Percentage of wound debrided: 100 Instrument Used: 7mm curette Tissue Removed: Slough and fibrous tissue Severity: Fat Layer Exposed Amount of bleeding with debridement: Mild Bleeding Controlled with: Pressure Patient tolerated procedure well - Additional Wound Wound debrided: Left abdominal fold ulcer Laterality: Left Type of Debridement: Excisional debridement Anesthesia Used: 5% Lidocaine Gel Depth: Down to and including healthy tissue, in the subcutaneous layer Percentage of wound debrided: 100 Instrument Used: 7mm curette Tissue Removed: Slough and fibrous tissue Severity: Fat Layer Exposed Amount of bleeding with debridement: Mild Bleeding Controlled with: Pressure Patient tolerated procedure: Patient tolerated procedure well Assessment/Plan Assessment: Nonhealing postsurgical wound left groin status post surgical excision of necrotizing fasciitis. Bilateral lower extremity edema. Morbid obesity. Type 2 diabetes mellitus Plan: The patient was seen and examined at the wound center today and was updated on the plan of care. A subcutaneous debridement was performed today. The patient tolerated the procedure well. The patients wound care will consist of: utilizing Aquacel dressings daily and as needed. Wound cultures were reviewed and negative. Baseline bloodwork reviewed which demonstrated a slightly low pre-albumin and patient was advised to use Glucerna or high-protein with meals. Previous records were requested for continuity of care. Patient educated on the importance of diet on wound healing and instructed to increase protein and vitamin C intake. Patient verbalized understanding. Patient will follow up at wound healing center in one week or sooner if needed. Plastic surgery consultation pending at this time. This note was generated with [employer] software. It may contain incorrect words, spelling, and punctuation that were not noted in checking the note before signing. Code Visit [id number]: [id number] Jessica subq tissue 20 sq cm/< Add On Codes: 55771 Jessica subq tissue add-on
--- NOTE | 2017-09-21 11:00 | PN.PCM_ITS ---
(1) Non-healing surgical wound of left groin Status: Acute Qualifiers: Code(s): T81.89XA - Other complications of procedures, not elsewhere classified , initial encounter (2) Diabetic neuropathy Status: Acute Code(s): E11.40 - Type 2 diabetes mellitus with diabetic neuropathy, unspecified (3) History of necrotising fasciitis Status: Acute Code(s): Z87.39 - Personal history of other diseases of the musculoskeletal system and connective tissue (4) Lymphedema of both lower extremities Status: Acute Code(s): I89.0 - Lymphedema, not elsewhere classified (5) Morbid obesity Status: Acute Code(s): E66.01 - Morbid (severe) obesity due to excess calories (6) Type 2 diabetes mellitus Status: Acute Qualifiers: Code(s): E11.9 - Type 2 diabetes mellitus without complications Type of Wound Date of Service: 09/19/17 Chief Complaint: Nonhealing wound status post surgical excision of necrotizing fasciitis left groin History of Wound: 46-year-old white male who presents to the wound healing center today with complaint of left groin ulceration status post surgical excision of necrotizing fasciitis. He is a past medical history which is significant for that of type 2 diabetes mellitus, gout, diabetic neuropathy, schizophrenia, bilateral lymphedema, and schizophrenia. The patient states that what initially started as a pimple in his left groin progressed to necrotizing fasciitis and he had to have this surgically debrided in April 2017. He was admitted to [facility] for 2 weeks and then [facility] for 6 weeks afterwards. He states that the groin ulcer which extends to his left lower abdomen has been slowly improving and he has been doing daily Aquacel AG dressings with an ABD for the drainage. He does state that he has had 3 wound vacs in the past which were unable to be utilized due to the location of his wound. He denies any foul-smelling discharge or systemic signs of infection at this time. The patient otherwise denies any fever, chills, nausea, vomiting, shortness of breath, chest pain or pressure, palpitations, orthopnea, syncope or presyncopal episodes. Progress of Wound: Wound is stable and slowly improving, wound bed is moist and clean and without signs of infection at this time. There was a bridge of skin that has epithelialized and now made into 2 separate wounds wound 1 left groin and wound to left lower abdominal fold - Physical Exam Vital Signs Temp Pulse Resp BP 97.4 F L 88 18 147/77 H 09/19/17 15:46 09/19/17 15:46 09/19/17 15:46 09/12/17 15:37 General: Alert, Oriented x3, Cooperative, No apparent distress HEENT: Atraumatic Cardiovascular: Regular rate Skin: Ulcer/ Wound - Left abdominal fold ulcer and left groin ulcer moist wound bed with moderate amount of adherent slough, groin ulcer continues to tunnel, no signs of infection at this time such as increase in drainage or pain. Wound Measurements and Assessment WC - Nurse 1 - General Ulcer Measurement Start: 08/22/17 14:38 Freq: Status: Active Protocol: Activity Type Activity Date Activity User E-Sign Co-Sign Detail Recorded Client Recorded Date Recorded By Document 09/19/17 15:46 DL [id number] 09/19/17 15:54 DL 09/19/17 15:46 Wound Center Nurse 1 [Ulcer Assessment] #2 Left Abdominal Fold -Combined with other wound No -Current Size (cm) - Length 2.3 -Current Size (cm) - Width 11.3 -Current Size (cm) - Depth 0.1 -Total Square Cm 25.99 -Photo Taken No -Epithelialization Medium 34-66% -Tunneling No -Undermining/Tunneling No -Circular Undermining No -Classification - Thickness Full Thickness without Exposed Support Structure -Exudate Amt Medium (34-66%) -Exudate Type Serosanguineous -Wound Margin Flat & Intact -Granulation Amt Large (67-100%) -Granulation Quality Pale Lockhart -Slough/Fibrin Yes -Necrosis Amt Large (67-100%) -Necrotic Tissue Type Adherent Slough -Structure Exposed None/Limited to Skin Breakdown -Texture (Inessa-wound Skin Appearance) Assessed Scarring Rash -Moisture (Inessa-wound Skin Appearance Assessed ) Maceration Weeping -Color (Inessa-wound Skin Appearance) No Abnormality Assessed -Temperature (Inessa-wound Skin No Abnormality Appearance) (Pt Warm) -Ulcer Cleansing Wound Cleanser -Foul Odor after Cleansing No -Anesthetic Used 4% Lidocaine Solution #1- LEFT GROIN- POST OP -Combined with other wound No -Current Size (cm) - Length 4.4 -Current Size (cm) - Width 22.0 -Current Size (cm) - Depth 0.1 -Total Square Cm 96.80 -Photo Taken No -Epithelialization Large 67-100% -Tunneling No -Undermining/Tunneling No -Classification - Thickness Full Thickness without Exposed Support Structure -Exudate Amt Medium (34-66%) -Exudate Type Serous -Wound Margin Flat & Intact -Granulation Amt Large (67-100%) -Granulation Quality Pale Lockhart -Slough/Fibrin Yes -Necrosis Amt Large (67-100%) -Necrotic Tissue Type Adherent Slough -Structure Exposed None/Limited to Skin Breakdown -Texture (Inessa-wound Skin Appearance) Assessed Localized Edema Scarring -Moisture (Inessa-wound Skin Appearance Assessed ) Maceration Weeping -Color (Inessa-wound Skin Appearance) No Abnormality Assessed -Temperature (Inessa-wound Skin No Abnormality Appearance) (Pt Warm) -Ulcer Cleansing Wound Cleanser -Foul Odor after Cleansing No -Anesthetic Used 4% Lidocaine Solution WC - Nurse 2 - General Ulcer CM Notes Start: 08/22/17 14:38 Freq: Status: Active Protocol: Activity Type Activity Date Activity User E-Sign Co-Sign Detail Recorded Client Recorded Date Recorded By Document 09/19/17 16:12 NELLY [id number] 09/19/17 16:19 NELLY 09/19/17 16:12 Wound Center Nurse 2 [Procedure/Treatment] #2 Left Abdominal Fold -Time 16:12 -Correct Patient Yes -Correct Side, Site, Position Yes -Correct Procedure Yes -Procedure Performed Yes -Type of Procedure Debridement -Clinical Debridement Subcutaneous -Post Debridement Size (cm) - Length 2.0 -Post Debridement Size (cm) - Width 11.6 -Post Debridement Size (cm) - Depth 0.1 -Total Square Cm 23.20 -Wound/Ulcer Outcome Not Healed -Ulcer Cleansing Rinsed/ Irrigated with Saline -Foul Odor after Cleansing No -Bioengineered Tissue No -Topical Lidocaine (%) 4 -Lidocaine (ml) 15 -Bleeding Controlled with NA -Treatment Response Procedure Tolerated Well #1- LEFT GROIN- POST OP -Time 16:13 -Correct Patient Yes -Correct Side, Site, Position Yes -Correct Procedure Yes -Procedure Performed Yes -Type of Procedure Debridement -Clinical Debridement Subcutaneous -Post Debridement Size (cm) - Length 4.1 -Post Debridement Size (cm) - Width 22.0 -Post Debridement Size (cm) - Depth 0.1 -Total Square Cm 90.20 -Wound/Ulcer Outcome Not Healed -Ulcer Cleansing Rinsed/ Irrigated with Saline -Foul Odor after Cleansing No -Bioengineered Tissue No -Topical Lidocaine (%) 4 -Lidocaine (ml) 5 -Bleeding Controlled with NA -Treatment Response Procedure Tolerated Well [See Physician Procedure note for Specifics] Pain Scale: 0-10 Numeric [Pain] -Is Patient Pain Free? Yes Neurological: Neuro grossly intact Psych/Mental Status: Normal Affect, Appropriate Debridement Note Post-Debridement Measurements/Treatment WC - Nurse 2 - General Ulcer CM Notes Start: 08/22/17 14:38 Freq: Status: Active Protocol: Activity Type Activity Date Activity User E-Sign Co-Sign Detail Recorded Client Recorded Date Recorded By Document 08/22/17 17:40 DV [id number] 08/24/17 01:11 DV Document 08/29/17 16:01 DV [id number] 08/29/17 16:09 DV Document 09/05/17 15:46 JS [id number] 09/05/17 15:50 JS Document 09/12/17 16:57 DV [id number] 09/12/17 17:05 DV Document 09/19/17 16:12 JS [id number] 09/19/17 16:19 JS 08/22/17 08/29/17 09/05/17 17:40 16:01 15:46 Wound Center Nurse 2 #2 Left Abdominal Fold -Time 16:07 15:46 -Correct Patient Yes Yes -Correct Side, Site, Position Yes Yes -Correct Procedure Yes Yes -Procedure Performed Yes Yes -Type of Procedure Debridement Debridement -Clinical Debridement Subcutaneous Subcutaneous -Post Debridement Size (cm) - Length 23.0 5.0 -Post Debridement Size (cm) - Width 6.5 22.6 -Post Debridement Size (cm) - Depth 0.1 0.1 -Total Square Cm 149.50 113.00 -Wound/Ulcer Outcome Not Healed Not Healed -Ulcer Cleansing Rinsed/ Rinsed/ Irrigated with Irrigated with Saline Saline -Foul Odor after Cleansing No No -Bioengineered Tissue No No -Topical Lidocaine (%) 4 -Lidocaine (ml) 20 -Bleeding Controlled with Pressure Pressure -Other SILVER NITRATE -Treatment Response Procedure Procedure Tolerated Well Tolerated Well #1- LEFT GROIN- POST OP -Time 17:40 16:04 15:49 -Correct Patient Yes Yes Yes -Correct Side, Site, Position Yes Yes Yes -Correct Procedure Yes Yes Yes -Procedure Performed Yes Yes Yes -Type of Procedure Debridement Debridement Debridement -Clinical Debridement Subcutaneous Subcutaneous Subcutaneous -Post Debridement Size (cm) - Length 35.0 13.0 3.5 -Post Debridement Size (cm) - Width 5.0 3.0 12.5 -Post Debridement Size (cm) - Depth 4.8 0.1 0.1 -Total Square Cm 175.00 39.00 43.75 -Wound/Ulcer Outcome Not Healed Not Healed Not Healed -Ulcer Cleansing Rinsed/ Rinsed/ Rinsed/ Irrigated with Irrigated with Irrigated with Saline Saline Saline -Foul Odor after Cleansing No No No -Bioengineered Tissue No No No -Topical Lidocaine (%) 4 -Lidocaine (ml) 20 -Bleeding Controlled with NA Pressure Pressure -Treatment Response Procedure Procedure Procedure Tolerated Well Tolerated Well Tolerated Well Pain Scale: 0-10 Numeric Is Patient Pain Free? Yes Yes Yes 18 09/19/17 16:57 16:12 Wound Center Nurse 2 #2 Left Abdominal Fold -Time 16:58 16:12 -Correct Patient Yes Yes -Correct Side, Site, Position Yes Yes -Correct Procedure Yes Yes -Procedure Performed Yes Yes -Type of Procedure Debridement Debridement -Clinical Debridement Subcutaneous Subcutaneous -Post Debridement Size (cm) - Length 2.6 2.0 -Post Debridement Size (cm) - Width 12.3 11.6 -Post Debridement Size (cm) - Depth 0.1 0.1 -Total Square Cm 31.98 23.20 -Wound/Ulcer Outcome Not Healed Not Healed -Ulcer Cleansing Rinsed/ Rinsed/ Irrigated with Irrigated with Saline Saline -Foul Odor after Cleansing No No -Bioengineered Tissue No No -Topical Lidocaine (%) 4 -Lidocaine (ml) 15 -Bleeding Controlled with Pressure NA -Other -Treatment Response Procedure Procedure Tolerated Well Tolerated Well #1- LEFT GROIN- POST OP -Time 16:58 16:13 -Correct Patient Yes Yes -Correct Side, Site, Position Yes Yes -Correct Procedure Yes Yes -Procedure Performed Yes Yes -Type of Procedure Debridement Debridement -Clinical Debridement Subcutaneous Subcutaneous -Post Debridement Size (cm) - Length 5.4 4.1 -Post Debridement Size (cm) - Width 19.5 22.0 -Post Debridement Size (cm) - Depth 0.1 0.1 -Total Square Cm 105.30 90.20 -Wound/Ulcer Outcome Not Healed Not Healed -Ulcer Cleansing Rinsed/ Rinsed/ Irrigated with Irrigated with Saline Saline -Foul Odor after Cleansing No No -Bioengineered Tissue No No -Topical Lidocaine (%) 4 -Lidocaine (ml) 5 -Bleeding Controlled with Pressure NA -Treatment Response Procedure Procedure Tolerated Well Tolerated Well Pain Scale: 0-10 Numeric Is Patient Pain Free? Yes Yes Wound debrided: Left groin ulcer Laterality: Left Type of Debridement: Excisional debridement Anesthesia Used: 5% Lidocaine Gel Depth: in the subcutaneous layer Percentage of wound debrided: 100 Instrument Used: 7mm curette Tissue Removed: Slough and fibrous tissue Severity: Fat Layer Exposed Amount of bleeding with debridement: Mild Bleeding Controlled with: Pressure Patient tolerated procedure well - Additional Wound Wound debrided: Left abdominal fold ulcer Laterality: Left Type of Debridement: Excisional debridement Anesthesia Used: 5% Lidocaine Gel Depth: Down to and including healthy tissue, in the subcutaneous layer Percentage of wound debrided: 100 Instrument Used: 7mm curette Tissue Removed: Slough and fibrous tissue Severity: Fat Layer Exposed Amount of bleeding with debridement: Mild Bleeding Controlled with: Pressure Patient tolerated procedure: Patient tolerated procedure well Assessment/Plan Assessment: Nonhealing postsurgical wound left groin status post surgical excision of necrotizing fasciitis. Bilateral lower extremity edema. Morbid obesity. Type 2 diabetes mellitus Plan: The patient was seen and examined at the wound center today and was updated on the plan of care. A subcutaneous debridement was performed today. The patient tolerated the procedure well. The patients wound care will consist of: utilizing Aquacel dressings daily and as needed. Wound cultures were reviewed and negative. Baseline bloodwork reviewed which demonstrated a slightly low pre-albumin and patient was advised to use Glucerna or high- protein with meals. Previous records were requested for continuity of care. Patient educated on the importance of diet on wound healing and instructed to increase protein and vitamin C intake. Patient verbalized understanding. Patient will follow up at wound healing center in one week or sooner if needed. Plastic surgery consultation pending at this time. This note was generated with [employer] software. It may contain incorrect words, spelling, and punctuation that were not noted in checking the note before signing. Code Visit 111xxx-113xx: 02391 Jessica subq tissue 20 sq cm/< Add On Codes: [id number] Jessica subq tissue add-on
== END 2017-09-19 23:59 ==
LOC: WC 15:30
PROVIDERS: Family Provider Family Medicine; PCP Family Medicine; Visit Provider Nurse Practitioner Family
DX: T81.89XA Other complications of procedures, not elsewhere classified, initial encounter (principal); Y83.8 Other surgical procedures as the cause of abnormal reaction of the patient, or of later complication, without mention of misadventure at the time of the procedure; E11.40 Type 2 diabetes mellitus with diabetic neuropathy, unspecified; Z87.39 Personal history of other diseases of the musculoskeletal system and connective tissue; I89.0 Lymphedema, not elsewhere classified; E66.01 Morbid (severe) obesity due to excess calories; Z71.3 Dietary counseling and surveillance; R60.0 Localized edema
CPT/HCPCS: 11042; 11045; 99213; G0463

== ENCOUNTER 2017-10-17 15:00 | Outpatient (RCR) | payer MEDICARE, MEDICAID, SELFPAY ==
[2017-09-20 00:56] VITALS: BP 147/77; PULSE 88; RESP 18; TEMP 36.3
--- NOTE | 2017-09-30 21:43 | PCM.WC.PN ---
(1) Non-healing surgical wound of left groin Status: Acute Qualifiers: Code(s): T81.89XA - Other complications of procedures, not elsewhere classified, initial encounter (2) Non-healing surgical wound Status: Acute Code(s): T81.89XA - Other complications of procedures, not elsewhere classified, initial encounter (3) History of necrotising fasciitis Status: Acute Code(s): Z87.39 - Personal history of other diseases of the musculoskeletal system and connective tissue (4) Lymphedema of both lower extremities Status: Acute Code(s): I89.0 - Lymphedema, not elsewhere classified (5) Morbid obesity Status: Acute Code(s): E66.01 - Morbid (severe) obesity due to excess calories (6) Type 2 diabetes mellitus Status: Acute Qualifiers: Code(s): E11.9 - Type 2 diabetes mellitus without complications Type of Wound Date of Service: 09/26/17 Chief Complaint: Nonhealing wound status post surgical excision of necrotizing fasciitis left groin History of Wound: 46-year-old white male who presents to the wound healing center today with complaint of left groin ulceration status post surgical excision of necrotizing fasciitis. He is a past medical history which is significant for that of type 2 diabetes mellitus, gout, diabetic neuropathy, schizophrenia, bilateral lymphedema, and schizophrenia. The patient states that what initially started as a pimple in his left groin progressed to necrotizing fasciitis and he had to have this surgically debrided in April 2017. He was admitted to [facility] for 2 weeks and then [facility] for 6 weeks afterwards. He states that the groin ulcer which extends to his left lower abdomen has been slowly improving and he has been doing daily Aquacel AG dressings with an ABD for the drainage. He does state that he has had 3 wound vacs in the past which were unable to be utilized due to the location of his wound. He denies any foul-smelling discharge or systemic signs of infection at this time. The patient otherwise denies any fever, chills, nausea, vomiting, shortness of breath, chest pain or pressure, palpitations, orthopnea, syncope or presyncopal episodes. Progress of Wound: Wound is stable and slowly improving, wound bed is moist and clean and without signs of infection at this time. There was a bridge of skin that has epithelialized and now made into 2 separate wounds wound 1 left groin and wound to left lower abdominal fold - Physical Exam Vital Signs Temp Pulse Resp BP 97.4 F L 88 18 147/77 H 09/20/17 00:56 09/20/17 00:56 09/20/17 00:56 09/20/17 00:56 General: Alert, Oriented x3, Cooperative, No apparent distress HEENT: Atraumatic Cardiovascular: Regular rate Extremities: Edema - BLLE Skin: Ulcer/ Wound - Ulcer present left groin and left abdominal fold with hypergranulatory tissue and slough Neurological: Neuro grossly intact Psych/Mental Status: Normal Affect, Alert and oriented to time, place, person, mood and affect Debridement Note Wound debrided: left abdominal fold ulcer Laterality: Left Type of Debridement: Excisional debridement Anesthesia Used: 5% Lidocaine Gel Depth: in the subcutaneous layer Percentage of wound debrided: 100 Instrument Used: 7mm curette Tissue Removed: slough and hypergranulatory tissue Severity: Fat Layer Exposed Amount of bleeding with debridement: Mild Bleeding Controlled with: Pressure, Silver Nitrate Patient tolerated procedure well - Additional Wound Wound debrided: left groin ulcer Laterality: Left Type of Debridement: Excisional debridement Anesthesia Used: 5% Lidocaine Gel Depth: in the subcutaneous layer Percentage of wound debrided: 100 Instrument Used: 7mm curette Tissue Removed: slough and hypergranulatory tissue Severity: Fat Layer Exposed Amount of bleeding with debridement: Mild Bleeding Controlled with: Pressure, Silver Nitrate Patient tolerated procedure: Patient tolerated procedure well Assessment/Plan Assessment: Nonhealing postsurgical wound left groin status post surgical excision of necrotizing fasciitis. Bilateral lower extremity edema. Morbid obesity. Type 2 diabetes mellitus Plan: The patient was seen and examined at the wound center today and was updated on the plan of care. A subcutaneous debridement was performed today. The patient tolerated the procedure well. The patients wound care will consist of: utilizing Aquacel silver dressings daily and Dakins 1-2 x per week. Wound cultures were reviewed and negative. Baseline bloodwork reviewed which demonstrated a slightly low pre-albumin and patient was advised to use Glucerna or high-protein with meals. Previous records were requested for continuity of care. Patient educated on the importance of diet on wound healing and instructed to increase protein and vitamin C intake. Patient verbalized understanding. Patient will follow up at wound healing center in one week or sooner if needed. Plastic surgery consultation pending at this time. This note was generated with [employer] software. It may contain incorrect words, spelling, and punctuation that were not noted in checking the note before signing. Code Visit 111xxx-113xx: 45022 Jessica subq tissue 20 sq cm/< Add On Codes: [id number] Jessica subq tissue add-on
--- NOTE | 2017-10-02 10:51 | PN.PCM_ITS ---
(1) Non-healing surgical wound of left groin Status: Acute Qualifiers: Code(s): T81.89XA - Other complications of procedures, not elsewhere classified , initial encounter (2) Non-healing surgical wound Status: Acute Code(s): T81.89XA - Other complications of procedures, not elsewhere classified, initial encounter (3) History of necrotising fasciitis Status: Acute Code(s): Z87.39 - Personal history of other diseases of the musculoskeletal system and connective tissue (4) Lymphedema of both lower extremities Status: Acute Code(s): I89.0 - Lymphedema, not elsewhere classified (5) Morbid obesity Status: Acute Code(s): E66.01 - Morbid (severe) obesity due to excess calories (6) Type 2 diabetes mellitus Status: Acute Qualifiers: Code(s): E11.9 - Type 2 diabetes mellitus without complications Type of Wound Date of Service: 09/26/17 Chief Complaint: Nonhealing wound status post surgical excision of necrotizing fasciitis left groin History of Wound: 46-year-old white male who presents to the wound healing center today with complaint of left groin ulceration status post surgical excision of necrotizing fasciitis. He is a past medical history which is significant for that of type 2 diabetes mellitus, gout, diabetic neuropathy, schizophrenia, bilateral lymphedema, and schizophrenia. The patient states that what initially started as a pimple in his left groin progressed to necrotizing fasciitis and he had to have this surgically debrided in April 2017. He was admitted to [facility] for 2 weeks and then [facility] for 6 weeks afterwards. He states that the groin ulcer which extends to his left lower abdomen has been slowly improving and he has been doing daily Aquacel AG dressings with an ABD for the drainage. He does state that he has had 3 wound vacs in the past which were unable to be utilized due to the location of his wound. He denies any foul-smelling discharge or systemic signs of infection at this time. The patient otherwise denies any fever, chills, nausea, vomiting, shortness of breath, chest pain or pressure, palpitations, orthopnea, syncope or presyncopal episodes. Progress of Wound: Wound is stable and slowly improving, wound bed is moist and clean and without signs of infection at this time. There was a bridge of skin that has epithelialized and now made into 2 separate wounds wound 1 left groin and wound to left lower abdominal fold - Physical Exam Vital Signs Temp Pulse Resp BP 97.4 F L 88 18 147/77 H 09/20/17 00:56 09/20/17 00:56 09/20/17 00:56 09/20/17 00:56 General: Alert, Oriented x3, Cooperative, No apparent distress HEENT: Atraumatic Cardiovascular: Regular rate Extremities: Edema - BLLE Skin: Ulcer/ Wound - Ulcer present left groin and left abdominal fold with hypergranulatory tissue and slough Neurological: Neuro grossly intact Psych/Mental Status: Normal Affect, Alert and oriented to time, place, person, mood and affect Debridement Note Wound debrided: left abdominal fold ulcer Laterality: Left Type of Debridement: Excisional debridement Anesthesia Used: 5% Lidocaine Gel Depth: in the subcutaneous layer Percentage of wound debrided: 100 Instrument Used: 7mm curette Tissue Removed: slough and hypergranulatory tissue Severity: Fat Layer Exposed Amount of bleeding with debridement: Mild Bleeding Controlled with: Pressure, Silver Nitrate Patient tolerated procedure well - Additional Wound Wound debrided: left groin ulcer Laterality: Left Type of Debridement: Excisional debridement Anesthesia Used: 5% Lidocaine Gel Depth: in the subcutaneous layer Percentage of wound debrided: 100 Instrument Used: 7mm curette Tissue Removed: slough and hypergranulatory tissue Severity: Fat Layer Exposed Amount of bleeding with debridement: Mild Bleeding Controlled with: Pressure, Silver Nitrate Patient tolerated procedure: Patient tolerated procedure well Assessment/Plan Assessment: Nonhealing postsurgical wound left groin status post surgical excision of necrotizing fasciitis. Bilateral lower extremity edema. Morbid obesity. Type 2 diabetes mellitus Plan: The patient was seen and examined at the wound center today and was updated on the plan of care. A subcutaneous debridement was performed today. The patient tolerated the procedure well. The patients wound care will consist of: utilizing Aquacel silver dressings daily and Dakins 1-2 x per week. Wound cultures were reviewed and negative. Baseline bloodwork reviewed which demonstrated a slightly low pre-albumin and patient was advised to use Glucerna or high-protein with meals. Previous records were requested for continuity of care. Patient educated on the importance of diet on wound healing and instructed to increase protein and vitamin C intake. Patient verbalized understanding. Patient will follow up at wound healing center in one week or sooner if needed. Plastic surgery consultation pending at this time. This note was generated with [employer] software. It may contain incorrect words, spelling, and punctuation that were not noted in checking the note before signing. Code Visit 111xxx-113xx: 43839 Jessica subq tissue 20 sq cm/< Add On Codes: [id number] Jessica subq tissue add-on
[2017-10-03 15:42] VITALS: BP 140/86; PULSE 103; RESP 20; TEMP 36.2
[2017-10-07 08:26] VITALS: BP 137/78; PULSE 80; RESP 16; TEMP 36.1
--- NOTE | 2017-10-07 20:48 | PCM.WC.PN ---
(1) Non-healing surgical wound of left groin Status: Acute Current Visit: Yes Qualifiers: Code(s): T81.89XA - Other complications of procedures, not elsewhere classified, initial encounter (2) Non-healing surgical wound Status: Acute Current Visit: Yes Code(s): T81.89XA - Other complications of procedures, not elsewhere classified, initial encounter (3) History of necrotising fasciitis Status: Acute Current Visit: No Code(s): Z87.39 - Personal history of other diseases of the musculoskeletal system and connective tissue (4) Lymphedema of both lower extremities Status: Acute Current Visit: Yes Code(s): I89.0 - Lymphedema, not elsewhere classified (5) Morbid obesity Status: Acute Current Visit: Yes Code(s): E66.01 - Morbid (severe) obesity due to excess calories (6) Type 2 diabetes mellitus Status: Acute Current Visit: Yes Qualifiers: Code(s): E11.9 - Type 2 diabetes mellitus without complications Type of Wound Date of Service: 10/03/17 Chief Complaint: Nonhealing wound status post surgical excision of necrotizing fasciitis left groin History of Wound: 46-year-old white male who presents to the wound healing center today with complaint of left groin ulceration status post surgical excision of necrotizing fasciitis. He is a past medical history which is significant for that of type 2 diabetes mellitus, gout, diabetic neuropathy, schizophrenia, bilateral lymphedema, and schizophrenia. The patient states that what initially started as a pimple in his left groin progressed to necrotizing fasciitis and he had to have this surgically debrided in April 2017. He was admitted to [facility] for 2 weeks and then [facility] for 6 weeks afterwards. He states that the groin ulcer which extends to his left lower abdomen has been slowly improving and he has been doing daily Aquacel AG dressings with an ABD for the drainage. He does state that he has had 3 wound vacs in the past which were unable to be utilized due to the location of his wound. He denies any foul-smelling discharge or systemic signs of infection at this time. The patient otherwise denies any fever, chills, nausea, vomiting, shortness of breath, chest pain or pressure, palpitations, orthopnea, syncope or presyncopal episodes. Progress of Wound: Wound is stable and slowly improving, wound bed is moist and clean and without signs of infection at this time. There was a bridge of skin that has epithelialized and now made into 2 separate wounds wound 1 left groin and wound to left lower abdominal fold - Physical Exam Vital Signs Temp Pulse Resp BP 96.9 F L 80 16 137/78 H 10/07/17 08:26 10/07/17 08:26 10/07/17 08:26 10/07/17 08:26 General: Alert, Oriented x3, Cooperative, No apparent distress HEENT: Atraumatic Lungs: Clear to auscultation Cardiovascular: Regular rate, Regular Rhythm Abdomen: Obese Skin: Ulcer/ Wound - Ulcer present left abdominal fold and left groin, slightly macerated edges, small amount of serous drainage and slough present Wound Measurements and Assessment WC - Nurse 1 - General Ulcer Measurement Start: 10/03/17 14:40 Freq: Status: Active Protocol: Activity Type Activity Date Activity User E-Sign Co-Sign Detail Recorded Client Recorded Date Recorded By Document 10/07/17 08:26 [id number] 10/07/17 08:32 10/07/17 08:26 Wound Center Nurse 1 [Ulcer Assessment] #2 Left Abdominal Fold -Combined with other wound No -Current Size (cm) - Length 2.3 -Current Size (cm) - Width 8.1 -Current Size (cm) - Depth 0.1 -Total Square Cm 18.63 -Photo Taken No -Epithelialization Small 1-33% -Tunneling No -Undermining/Tunneling No -Circular Undermining No -Classification - Thickness Full Thickness without Exposed Support Structure -Exudate Amt Small (1-33%) -Exudate Type Yellow/Green -Wound Margin Distinct, Outline Attached -Granulation Amt Small (1-33%) -Granulation Quality [place] Red -Slough/Fibrin Yes -Necrosis Amt None Present (0 %) -Necrotic Tissue Type Adherent Slough -Structure Exposed None/Limited to Skin Breakdown -Texture (Inessa-wound Skin Appearance) Assessed Scarring -Moisture (Inessa-wound Skin Appearance Maceration ) -Color (Inessa-wound Skin Appearance) No Abnormality Assessed -Temperature (Inessa-wound Skin No Abnormality Appearance) (Pt Warm) -Tenderness on Palpation (Inessa-wound No Skin Appearance) -Ulcer Cleansing Rinsed/ Irrigated with Saline -Foul Odor after Cleansing No -Anesthetic Used 4% Lidocaine Solution #1- LEFT GROIN- POST OP -Combined with other wound No -Current Size (cm) - Length 4.1 -Current Size (cm) - Width 22.2 -Current Size (cm) - Depth 0.1 -Total Square Cm 91.02 -Photo Taken No -Epithelialization Small 1-33% -Tunneling No -Undermining/Tunneling No -Circular Undermining No -Classification - Thickness Full Thickness without Exposed Support Structure -Exudate Type Yellow/Green -Wound Margin Distinct, Outline Attached -Granulation Amt Small (1-33%) -Granulation Quality [place] Red -Slough/Fibrin Yes -Necrosis Amt None Present (0 %) -Necrotic Tissue Type Adherent Slough -Structure Exposed None/Limited to Skin Breakdown -Texture (Inessa-wound Skin Appearance) Assessed Scarring -Moisture (Inessa-wound Skin Appearance Assessed ) Maceration -Color (Inessa-wound Skin Appearance) No Abnormality Assessed -Temperature (Inessa-wound Skin No Abnormality Appearance) (Pt Warm) -Tenderness on Palpation (Inessa-wound No Skin Appearance) -Ulcer Cleansing Rinsed/ Irrigated with Saline -Foul Odor after Cleansing No -Anesthetic Used 4% Lidocaine Solution [Edema Assessment] -Lower Limb Edema Present NA WC - Nurse 2 - General Ulcer CM Notes Start: 10/03/17 14:40 Freq: Status: Active Protocol: Activity Type Activity Date Activity User E-Sign Co-Sign Detail Recorded Client Recorded Date Recorded By Document 18 08:47 [email or web address] [id number] 10/07/17 08:52 [email or web address] 18 08:47 Wound Center Nurse 2 [Procedure/Treatment] #2 Left Abdominal Fold -Time 08:47 -Correct Patient Yes -Correct Side, Site, Position Yes -Correct Procedure Yes -Procedure Performed Yes -Type of Procedure Debridement -Clinical Debridement Subcutaneous -Post Debridement Size (cm) - Length 2.4 -Post Debridement Size (cm) - Width 8.1 -Post Debridement Size (cm) - Depth 0.1 -Total Square Cm 19.44 -Wound/Ulcer Outcome Not Healed -Ulcer Cleansing Rinsed/ Irrigated with Saline -Foul Odor after Cleansing No -Bioengineered Tissue No -Bleeding Controlled with Pressure -Treatment Response Procedure Tolerated Well #1- LEFT GROIN- POST OP -Time 08:47 -Correct Patient Yes -Correct Side, Site, Position Yes -Correct Procedure Yes -Procedure Performed Yes -Type of Procedure Debridement -Clinical Debridement Subcutaneous -Post Debridement Size (cm) - Length 4.2 -Post Debridement Size (cm) - Width 22 -Post Debridement Size (cm) - Depth 0.1 -Total Square Cm 92.4 -Wound/Ulcer Outcome Not Healed -Ulcer Cleansing Rinsed/ Irrigated with Saline -Foul Odor after Cleansing No -Bioengineered Tissue No -Bleeding Controlled with Pressure -Treatment Response Procedure Tolerated Well [See Physician Procedure note for Specifics] Pain Scale: 0-10 Numeric [Pain] -Is Patient Pain Free? Yes Neurological: Neuro grossly intact Psych/Mental Status: Normal Affect, Alert and oriented to time, place, person, mood and affect Debridement Note Post-Debridement Measurements/Treatment WC - Nurse 2 - General Ulcer CM Notes Start: 10/03/17 14:40 Freq: Status: Active Protocol: Activity Type Activity Date Activity User E-Sign Co-Sign Detail Recorded Client Recorded Date Recorded By Document 10/03/17 16:40 [id number] 10/03/17 16:45 DV Document 10/07/17 08:47 [id number] 10/07/17 08:52 10/03/17 10/07/17 16:40 08:47 Wound Center Nurse 2 #2 Left Abdominal Fold -Time 16:41 08:47 -Correct Patient Yes Yes -Correct Side, Site, Position Yes Yes -Correct Procedure Yes Yes -Procedure Performed Yes Yes -Type of Procedure Debridement Debridement -Clinical Debridement Subcutaneous Subcutaneous -Post Debridement Size (cm) - Length 2.2 2.4 -Post Debridement Size (cm) - Width 12 8.1 -Post Debridement Size (cm) - Depth 0.1 0.1 -Total Square Cm 26.4 19.44 -Wound/Ulcer Outcome Not Healed Not Healed -Ulcer Cleansing Rinsed/ Irrigated with Saline -Foul Odor after Cleansing No -Bioengineered Tissue No -Bleeding Controlled with Pressure Pressure -Treatment Response Procedure Procedure Tolerated Well Tolerated Well #1- LEFT GROIN- POST OP -Time 16:44 08:47 -Correct Patient Yes Yes -Correct Side, Site, Position Yes Yes -Correct Procedure Yes Yes -Procedure Performed Yes Yes -Type of Procedure Debridement Debridement -Clinical Debridement Subcutaneous Subcutaneous -Post Debridement Size (cm) - Length 5.0 4.2 -Post Debridement Size (cm) - Width 22.5 22 -Post Debridement Size (cm) - Depth 0.1 0.1 -Total Square Cm 112.50 92.4 -Wound/Ulcer Outcome Not Healed Not Healed -Ulcer Cleansing Rinsed/ Rinsed/ Irrigated with Irrigated with Saline Saline -Foul Odor after Cleansing No No -Bioengineered Tissue No No -Bleeding Controlled with Pressure Pressure -Treatment Response Procedure Procedure Tolerated Well Tolerated Well Pain Scale: 0-10 Numeric Is Patient Pain Free? Yes Yes Wound debrided: Left abdominal fold ulcer Type of Debridement: Excisional debridement Anesthesia Used: 5% Lidocaine Gel Depth: in the subcutaneous layer Percentage of wound debrided: 100 Instrument Used: 7mm curette Tissue Removed: Slough and devitalized tissue Severity: Fat Layer Exposed Amount of bleeding with debridement: Mild Bleeding Controlled with: Pressure Patient tolerated procedure well - Additional Wound Wound debrided: Left groin ulcer Laterality: Left Type of Debridement: Excisional debridement Anesthesia Used: 5% Lidocaine Gel Depth: in the subcutaneous layer Percentage of wound debrided: 100 Instrument Used: 7mm curette Tissue Removed: Slough and devitalized tissue Severity: Fat Layer Exposed Amount of bleeding with debridement: Mild Bleeding Controlled with: Pressure Patient tolerated procedure: Patient tolerated procedure well Assessment/Plan Active Problems Lymphedema of both lower extremities (Acute) Type 2 diabetes mellitus (Acute) Morbid obesity (Acute) Non-healing surgical wound of left groin (Acute) Non-healing surgical wound (Acute) Assessment: Nonhealing postsurgical wound left groin status post surgical excision of necrotizing fasciitis. Bilateral lower extremity edema. Morbid obesity. Type 2 diabetes mellitus Plan: The patient was seen and examined at the wound center today and was updated on the plan of care. A subcutaneous debridement was performed today. The patient tolerated the procedure well. The patients wound care will consist of: utilizing melgisorb ag dressings daily and prn and Dakins 1-2 x per week. Wound cultures were reviewed and negative. Baseline bloodwork reviewed which demonstrated a slightly low pre-albumin and patient was advised to use Glucerna or high-protein with meals. Previous records were requested for continuity of care. Patient educated on the importance of diet on wound healing and instructed to increase protein and vitamin C intake. Patient verbalized understanding. Patient will follow up at wound healing center in one week or sooner if needed. Plastic surgery consultation pending at this time. This note was generated with Dragon dictation software. It may contain incorrect words, spelling, and punctuation that were not noted in checking the note before signing. Code Visit 111xxx-113xx: 71066 Jessica subq tissue 20 sq cm/< Add On Codes: [id number] Jessica subq tissue add-on
--- NOTE | 2017-10-09 00:26 | HP.PCM_ITS ---
History of Present Illness Date of Service: 10/07/17 - WOUND CENTER CONSULT REFFERED BY: DRU Vargas. OUTDOOR EMERGENCY CARE TECHNICIAN: Dr. Luo. Chief Complaint: Nonhealing ulcer left inguinal area and left abdominal area. History of Wound: 46-year-old white male who presents to the wound healing center today with complaint of left inguinal and left abdominal wall ulceration status post surgical excision of necrotizing fasciitis. He is a past medical history of diabetes mellitus, gout, diabetic neuropathy, schizophrenia and bilateral lymphedema. The patient states that what initially started as a pimple in his left groin progressed to necrotizing fasciitis and he had to have this surgically debrided in April 2017. He does state that he has had 3 wound vacs in the past which were unable to be utilized due to the location of his wound. He denies any foul-smelling discharge or systemic signs of infection at this time. He denies any fever. He is currently using Aquacel Silver dressing changes daily. He had a wound culture done on 08/08/17 which was negative. I was asked to evaluate this patient for surgical options for treatment. Past Medical History Surgical History: - - April 2017 surgical excision necrotizing fasciitis left groin Allergies/Adverse Reactions: Allergies No Known Allergies Allergy (Verified 08/08/17 13:50) Home Medications: Ambulatory Orders Medication Instructions Recorded Gabapentin [Neurontin] 100 mg PO TIDCM 08/08/17 Insulin Glargine,Hum.rec.anlog 36 unit SQ QHS 08/08/17 [Lantus] Magnesium Oxide [Mag-Ox 400] 400 mg PO BID 08/08/17 Smoking Status: Never smoker Tobacco Use: Non-smoker Review of Systems Constitutional: Denies: Chills, Fever, Weight Change. Eyes: Denies: Pain, Vision Change. HEENT: Denies: Difficulty Hearing, Difficulty Swallowing, Sinus Congestion. Cardiovascular: Denies: Chest Pain, Palpitations. Respiratory: Denies: Cough, Shortness of Breath. Gastrointestinal: Denies: Diarrhea, Nausea, Vomiting. Genitourinary: Denies: Dysuria, Hematuria. Skin: Has nonhealing ulcer left inguinal area. Endocrine: Denies: Heat/ Cold Intolerance, Polydipsia, Polyuria. Hematologic/ Lymphatic: Denies: Easy Bruising, Easy Bleeding - Physical Exam General: Alert, Oriented x3, Cooperative. HEENT: PERRLA, EOMI. Oral: Moist Mucosa. Neck: Supple. Nontender. No cervical adenopathy. Lungs: Clear to auscultation. Cardiovascular: Regular rate, Regular Rhythm. Abdomen: Soft and nondistended. Nonhealing ulcer left abdominal wall which is extension from left inguinal area. Good granulation tissue. Measures 8 x 2 cm. No evidence of infection at this time. Extremities: Edema - Bilateral lower extremity edema, Peripheral Pulses Normal Skin: Ulcer/ Wound - In the left inguinal area is a nonhealing ulcer with granulation tissue. Measures 22 x 4 cm. No evidence of infection. Ulceration had extended underneath left pannus into left lower abdominal fold. Neurological: CN II - XII grossly intact. Psych/Mental Status: Flat Affect. Vital Signs Temp Pulse Resp BP 96.9 F L 80 16 137/78 H 10/07/17 08:26 10/07/17 08:26 10/07/17 08:26 10/07/17 08:26 Wound Measurements and Assessment WC - Nurse 1 - General Ulcer Measurement Start: 10/03/17 14:40 Freq: Status: Active Protocol: Activity Type Activity Date Activity User E-Sign Co-Sign Detail Recorded Client Recorded Date Recorded By Document 10/07/17 08:26 [id number] 10/07/17 08:32 10/07/17 08:26 Wound Center Nurse 1 [Ulcer Assessment] #2 Left Abdominal Fold -Combined with other wound No -Current Size (cm) - Length 2.3 -Current Size (cm) - Width 8.1 -Current Size (cm) - Depth 0.1 -Total Square Cm 18.63 -Photo Taken No -Epithelialization Small 1-33% -Tunneling No -Undermining/Tunneling No -Circular Undermining No -Classification - Thickness Full Thickness without Exposed Support Structure -Exudate Amt Small (1-33%) -Exudate Type Yellow/Green -Wound Margin Distinct, Outline Attached -Granulation Amt Small (1-33%) -Granulation Quality [place] Red -Slough/Fibrin Yes -Necrosis Amt None Present (0 %) -Necrotic Tissue Type Adherent Slough -Structure Exposed None/Limited to Skin Breakdown -Texture (Inessa-wound Skin Appearance) Assessed Scarring -Moisture (Inessa-wound Skin Appearance Maceration ) -Color (Inessa-wound Skin Appearance) No Abnormality Assessed -Temperature (Inessa-wound Skin No Abnormality Appearance) (Pt Warm) -Tenderness on Palpation (Inessa-wound No Skin Appearance) -Ulcer Cleansing Rinsed/ Irrigated with Saline -Foul Odor after Cleansing No -Anesthetic Used 4% Lidocaine Solution #1- LEFT GROIN- POST OP -Combined with other wound No -Current Size (cm) - Length 4.1 -Current Size (cm) - Width 22.2 -Current Size (cm) - Depth 0.1 -Total Square Cm 91.02 -Photo Taken No -Epithelialization Small 1-33% -Tunneling No -Undermining/Tunneling No -Circular Undermining No -Classification - Thickness Full Thickness without Exposed Support Structure -Exudate Type Yellow/Green -Wound Margin Distinct, Outline Attached -Granulation Amt Small (1-33%) -Granulation Quality [place] Red -Slough/Fibrin Yes -Necrosis Amt None Present (0 %) -Necrotic Tissue Type Adherent Slough -Structure Exposed None/Limited to Skin Breakdown -Texture (Inessa-wound Skin Appearance) Assessed Scarring -Moisture (Inessa-wound Skin Appearance Assessed ) Maceration -Color (Inessa-wound Skin Appearance) No Abnormality Assessed -Temperature (Inessa-wound Skin No Abnormality Appearance) (Pt Warm) -Tenderness on Palpation (Inessa-wound No Skin Appearance) -Ulcer Cleansing Rinsed/ Irrigated with Saline -Foul Odor after Cleansing No -Anesthetic Used 4% Lidocaine Solution [Edema Assessment] -Lower Limb Edema Present NA - Nurse 2 - General Ulcer CM Notes Start: 10/03/17 14:40 Freq: Status: Active Protocol: Activity Type Activity Date Activity User E-Sign Co-Sign Detail Recorded Client Recorded Date Recorded By Document 10/07/17 08:47 [id number] 10/07/17 08:52 10/07/17 08:47 Wound Center Nurse 2 [Procedure/Treatment] #2 Left Abdominal Fold -Time 08:47 -Correct Patient Yes -Correct Side, Site, Position Yes -Correct Procedure Yes -Procedure Performed Yes -Type of Procedure Debridement -Clinical Debridement Subcutaneous -Post Debridement Size (cm) - Length 2.4 -Post Debridement Size (cm) - Width 8.1 -Post Debridement Size (cm) - Depth 0.1 -Total Square Cm 19.44 -Wound/Ulcer Outcome Not Healed -Ulcer Cleansing Rinsed/ Irrigated with Saline -Foul Odor after Cleansing No -Bioengineered Tissue No -Bleeding Controlled with Pressure -Treatment Response Procedure Tolerated Well #1- LEFT GROIN- POST OP -Time 08:47 -Correct Patient Yes -Correct Side, Site, Position Yes -Correct Procedure Yes -Procedure Performed Yes -Type of Procedure Debridement -Clinical Debridement Subcutaneous -Post Debridement Size (cm) - Length 4.2 -Post Debridement Size (cm) - Width 22 -Post Debridement Size (cm) - Depth 0.1 -Total Square Cm 92.4 -Wound/Ulcer Outcome Not Healed -Ulcer Cleansing Rinsed/ Irrigated with Saline -Foul Odor after Cleansing No -Bioengineered Tissue No -Bleeding Controlled with Pressure -Treatment Response Procedure Tolerated Well [See Physician Procedure note for Specifics] Pain Scale: 0-10 Numeric [Pain] -Is Patient Pain Free? Yes Debridement Note Post-Debridement Measurements/Treatment WC - Nurse 2 - General Ulcer CM Notes Start: 10/03/17 14:40 Freq: Status: Active Protocol: Activity Type Activity Date Activity User E-Sign Co-Sign Detail Recorded Client Recorded Date Recorded By Document 10/03/17 16:40 DV [id number] 10/03/17 16:45 DV Document 10/07/17 08:47 [id number] 18 08:52 10/03/17 10/07/17 16:40 08:47 Wound Center Nurse 2 #2 Left Abdominal Fold -Time 16:41 08:47 -Correct Patient Yes Yes -Correct Side, Site, Position Yes Yes -Correct Procedure Yes Yes -Procedure Performed Yes Yes -Type of Procedure Debridement Debridement -Clinical Debridement Subcutaneous Subcutaneous -Post Debridement Size (cm) - Length 2.2 2.4 -Post Debridement Size (cm) - Width 12 8.1 -Post Debridement Size (cm) - Depth 0.1 0.1 -Total Square Cm 26.4 19.44 -Wound/Ulcer Outcome Not Healed Not Healed -Ulcer Cleansing Rinsed/ Irrigated with Saline -Foul Odor after Cleansing No -Bioengineered Tissue No -Bleeding Controlled with Pressure Pressure -Treatment Response Procedure Procedure Tolerated Well Tolerated Well #1- LEFT GROIN- POST OP -Time 16:44 08:47 -Correct Patient Yes Yes -Correct Side, Site, Position Yes Yes -Correct Procedure Yes Yes -Procedure Performed Yes Yes -Type of Procedure Debridement Debridement -Clinical Debridement Subcutaneous Subcutaneous -Post Debridement Size (cm) - Length 5.0 4.2 -Post Debridement Size (cm) - Width 22.5 22 -Post Debridement Size (cm) - Depth 0.1 0.1 -Total Square Cm 112.50 92.4 -Wound/Ulcer Outcome Not Healed Not Healed -Ulcer Cleansing Rinsed/ Rinsed/ Irrigated with Irrigated with Saline Saline -Foul Odor after Cleansing No No -Bioengineered Tissue No No -Bleeding Controlled with Pressure Pressure -Treatment Response Procedure Procedure Tolerated Well Tolerated Well Pain Scale: 0-10 Numeric Is Patient Pain Free? Yes Yes Wound debrided: #1 Left inguinal area. Laterality: Left Wound Grade/Stage: 2. Type of Debridement: Excisional debridement Anesthesia Used: 4% Lidocaine Solution Depth: Down to and including healthy tissue, in the subcutaneous layer Percentage of wound debrided: 100 Instrument Used: 7mm curette Tissue Removed: subcutaneous tissue. Severity: Fat Layer Exposed Amount of bleeding with debridement: Mild Bleeding Controlled with: Pressure Patient tolerated procedure well - Additional Wound Wound debrided: #2 Left abdominal wall. Laterality: Left Wound Grade/Stage: 2. Type of Debridement: Excisional debridement Anesthesia Used: 4% Lidocaine Solution Depth: Down to and including healthy tissue, in the subcutaneous layer Percentage of wound debrided: 100 Instrument Used: 7mm curette Tissue Removed: subcutaneous tissue. Severity: Fat Layer Exposed Amount of bleeding with debridement: Mild Bleeding Controlled with: Pressure Patient tolerated procedure: Patient tolerated procedure well Assessment/Plan Assessment: 1. Nonhealing ulcer left inguinal area. 2. Nonhealing ulcer left abdominal wall. 3. status s/p surgical excision of necrotizing fasciitis. 4. Bilateral lower extremity edema. 5. Diabetes mellitus. 6. Morbid obesity. Type 2 diabetes mellitus Plan: Continue Silver dressing changes daily. Prealbumin from 08/08/17 was 18.9. Encourage nutritional supplementation with protein to help the healing process. Wound culture from 08/08/17 was negative. No need for surgical intevention at this time. As long as the ulcer continues to improve, let's hold off on surgery. If the ulcer develops a plateau in the healing process, then can proceed with delayed closure with skin grafting. He will followup with Gianni Neil for continued wound care. Followup to see me on an as needed basis.
--- NOTE | 2017-10-09 09:52 | PN.PCM_ITS ---
(1) Non-healing surgical wound of left groin Status: Acute Current Visit: Yes Qualifiers: Code(s): T81.89XA - Other complications of procedures, not elsewhere classified , initial encounter (2) Non-healing surgical wound Status: Acute Current Visit: Yes Code(s): T81.89XA - Other complications of procedures, not elsewhere classified, initial encounter (3) History of necrotising fasciitis Status: Acute Current Visit: No Code(s): Z87.39 - Personal history of other diseases of the musculoskeletal system and connective tissue (4) Lymphedema of both lower extremities Status: Acute Current Visit: Yes Code(s): I89.0 - Lymphedema, not elsewhere classified (5) Morbid obesity Status: Acute Current Visit: Yes Code(s): E66.01 - Morbid (severe) obesity due to excess calories (6) Type 2 diabetes mellitus Status: Acute Current Visit: Yes Qualifiers: Code(s): E11.9 - Type 2 diabetes mellitus without complications Type of Wound Date of Service: 10/03/17 Chief Complaint: Nonhealing wound status post surgical excision of necrotizing fasciitis left groin History of Wound: 46-year-old white male who presents to the wound healing center today with complaint of left groin ulceration status post surgical excision of necrotizing fasciitis. He is a past medical history which is significant for that of type 2 diabetes mellitus, gout, diabetic neuropathy, schizophrenia, bilateral lymphedema, and schizophrenia. The patient states that what initially started as a pimple in his left groin progressed to necrotizing fasciitis and he had to have this surgically debrided in April 2017. He was admitted to [facility] for 2 weeks and then [facility] for 6 weeks afterwards. He states that the groin ulcer which extends to his left lower abdomen has been slowly improving and he has been doing daily Aquacel AG dressings with an ABD for the drainage. He does state that he has had 3 wound vacs in the past which were unable to be utilized due to the location of his wound. He denies any foul-smelling discharge or systemic signs of infection at this time. The patient otherwise denies any fever, chills, nausea, vomiting, shortness of breath, chest pain or pressure, palpitations, orthopnea, syncope or presyncopal episodes. Progress of Wound: Wound is stable and slowly improving, wound bed is moist and clean and without signs of infection at this time. There was a bridge of skin that has epithelialized and now made into 2 separate wounds wound 1 left groin and wound to left lower abdominal fold - Physical Exam Vital Signs Temp Pulse Resp BP 96.9 F L 80 16 137/78 H 10/07/17 08:26 10/07/17 08:26 10/07/17 08:26 10/07/17 08:26 General: Alert, Oriented x3, Cooperative, No apparent distress HEENT: Atraumatic Lungs: Clear to auscultation Cardiovascular: Regular rate, Regular Rhythm Abdomen: Obese Skin: Ulcer/ Wound - Ulcer present left abdominal fold and left groin, slightly macerated edges, small amount of serous drainage and slough present Wound Measurements and Assessment WC - Nurse 1 - General Ulcer Measurement Start: 10/03/17 14:40 Freq: Status: Active Protocol: Activity Type Activity Date Activity User E-Sign Co-Sign Detail Recorded Client Recorded Date Recorded By Document 10/07/17 08:26 [id number] 10/07/17 08:32 10/07/17 08:26 Wound Center Nurse 1 [Ulcer Assessment] #2 Left Abdominal Fold -Combined with other wound No -Current Size (cm) - Length 2.3 -Current Size (cm) - Width 8.1 -Current Size (cm) - Depth 0.1 -Total Square Cm 18.63 -Photo Taken No -Epithelialization Small 1-33% -Tunneling No -Undermining/Tunneling No -Circular Undermining No -Classification - Thickness Full Thickness without Exposed Support Structure -Exudate Amt Small (1-33%) -Exudate Type Yellow/Green -Wound Margin Distinct, Outline Attached -Granulation Amt Small (1-33%) -Granulation Quality [place] Red -Slough/Fibrin Yes -Necrosis Amt None Present (0 %) -Necrotic Tissue Type Adherent Slough -Structure Exposed None/Limited to Skin Breakdown -Texture (Inessa-wound Skin Appearance) Assessed Scarring -Moisture (Inessa-wound Skin Appearance Maceration ) -Color (Inessa-wound Skin Appearance) No Abnormality Assessed -Temperature (Inessa-wound Skin No Abnormality Appearance) (Pt Warm) -Tenderness on Palpation (Inessa-wound No Skin Appearance) -Ulcer Cleansing Rinsed/ Irrigated with Saline -Foul Odor after Cleansing No -Anesthetic Used 4% Lidocaine Solution #1- LEFT GROIN- POST OP -Combined with other wound No -Current Size (cm) - Length 4.1 -Current Size (cm) - Width 22.2 -Current Size (cm) - Depth 0.1 -Total Square Cm 91.02 -Photo Taken No -Epithelialization Small 1-33% -Tunneling No -Undermining/Tunneling No -Circular Undermining No -Classification - Thickness Full Thickness without Exposed Support Structure -Exudate Type Yellow/Green -Wound Margin Distinct, Outline Attached -Granulation Amt Small (1-33%) -Granulation Quality [place] Red -Slough/Fibrin Yes -Necrosis Amt None Present (0 %) -Necrotic Tissue Type Adherent Slough -Structure Exposed None/Limited to Skin Breakdown -Texture (Inessa-wound Skin Appearance) Assessed Scarring -Moisture (Inessa-wound Skin Appearance Assessed ) Maceration -Color (Inessa-wound Skin Appearance) No Abnormality Assessed -Temperature (Inessa-wound Skin No Abnormality Appearance) (Pt Warm) -Tenderness on Palpation (Inessa-wound No Skin Appearance) -Ulcer Cleansing Rinsed/ Irrigated with Saline -Foul Odor after Cleansing No -Anesthetic Used 4% Lidocaine Solution [Edema Assessment] -Lower Limb Edema Present NA WC - Nurse 2 - General Ulcer CM Notes Start: 10/03/17 14:40 Freq: Status: Active Protocol: Activity Type Activity Date Activity User E-Sign Co-Sign Detail Recorded Client Recorded Date Recorded By Document 18 08:47 [email or web address] [id number] 10/07/17 08:52 CRESENCIO 18 08:47 Wound Center Nurse 2 [Procedure/Treatment] #2 Left Abdominal Fold -Time 08:47 -Correct Patient Yes -Correct Side, Site, Position Yes -Correct Procedure Yes -Procedure Performed Yes -Type of Procedure Debridement -Clinical Debridement Subcutaneous -Post Debridement Size (cm) - Length 2.4 -Post Debridement Size (cm) - Width 8.1 -Post Debridement Size (cm) - Depth 0.1 -Total Square Cm 19.44 -Wound/Ulcer Outcome Not Healed -Ulcer Cleansing Rinsed/ Irrigated with Saline -Foul Odor after Cleansing No -Bioengineered Tissue No -Bleeding Controlled with Pressure -Treatment Response Procedure Tolerated Well #1- LEFT GROIN- POST OP -Time 08:47 -Correct Patient Yes -Correct Side, Site, Position Yes -Correct Procedure Yes -Procedure Performed Yes -Type of Procedure Debridement -Clinical Debridement Subcutaneous -Post Debridement Size (cm) - Length 4.2 -Post Debridement Size (cm) - Width 22 -Post Debridement Size (cm) - Depth 0.1 -Total Square Cm 92.4 -Wound/Ulcer Outcome Not Healed -Ulcer Cleansing Rinsed/ Irrigated with Saline -Foul Odor after Cleansing No -Bioengineered Tissue No -Bleeding Controlled with Pressure -Treatment Response Procedure Tolerated Well [See Physician Procedure note for Specifics] Pain Scale: 0-10 Numeric [Pain] -Is Patient Pain Free? Yes Neurological: Neuro grossly intact Psych/Mental Status: Normal Affect, Alert and oriented to time, place, person, mood and affect Debridement Note Post-Debridement Measurements/Treatment WC - Nurse 2 - General Ulcer CM Notes Start: 10/03/17 14:40 Freq: Status: Active Protocol: Activity Type Activity Date Activity User E-Sign Co-Sign Detail Recorded Client Recorded Date Recorded By Document 10/03/17 16:40 [email or web address] 10/03/17 16:45 DV Document 10/07/17 08:47 [id number] 10/07/17 08:52 10/03/17 10/07/17 16:40 08:47 Wound Center Nurse 2 #2 Left Abdominal Fold -Time 16:41 08:47 -Correct Patient Yes Yes -Correct Side, Site, Position Yes Yes -Correct Procedure Yes Yes -Procedure Performed Yes Yes -Type of Procedure Debridement Debridement -Clinical Debridement Subcutaneous Subcutaneous -Post Debridement Size (cm) - Length 2.2 2.4 -Post Debridement Size (cm) - Width 12 8.1 -Post Debridement Size (cm) - Depth 0.1 0.1 -Total Square Cm 26.4 19.44 -Wound/Ulcer Outcome Not Healed Not Healed -Ulcer Cleansing Rinsed/ Irrigated with Saline -Foul Odor after Cleansing No -Bioengineered Tissue No -Bleeding Controlled with Pressure Pressure -Treatment Response Procedure Procedure Tolerated Well Tolerated Well #1- LEFT GROIN- POST OP -Time 16:44 08:47 -Correct Patient Yes Yes -Correct Side, Site, Position Yes Yes -Correct Procedure Yes Yes -Procedure Performed Yes Yes -Type of Procedure Debridement Debridement -Clinical Debridement Subcutaneous Subcutaneous -Post Debridement Size (cm) - Length 5.0 4.2 -Post Debridement Size (cm) - Width 22.5 22 -Post Debridement Size (cm) - Depth 0.1 0.1 -Total Square Cm 112.50 92.4 -Wound/Ulcer Outcome Not Healed Not Healed -Ulcer Cleansing Rinsed/ Rinsed/ Irrigated with Irrigated with Saline Saline -Foul Odor after Cleansing No No -Bioengineered Tissue No No -Bleeding Controlled with Pressure Pressure -Treatment Response Procedure Procedure Tolerated Well Tolerated Well Pain Scale: 0-10 Numeric Is Patient Pain Free? Yes Yes Wound debrided: Left abdominal fold ulcer Type of Debridement: Excisional debridement Anesthesia Used: 5% Lidocaine Gel Depth: in the subcutaneous layer Percentage of wound debrided: 100 Instrument Used: 7mm curette Tissue Removed: Slough and devitalized tissue Severity: Fat Layer Exposed Amount of bleeding with debridement: Mild Bleeding Controlled with: Pressure Patient tolerated procedure well - Additional Wound Wound debrided: Left groin ulcer Laterality: Left Type of Debridement: Excisional debridement Anesthesia Used: 5% Lidocaine Gel Depth: in the subcutaneous layer Percentage of wound debrided: 100 Instrument Used: 7mm curette Tissue Removed: Slough and devitalized tissue Severity: Fat Layer Exposed Amount of bleeding with debridement: Mild Bleeding Controlled with: Pressure Patient tolerated procedure: Patient tolerated procedure well Assessment/Plan Active Problems Lymphedema of both lower extremities (Acute) Type 2 diabetes mellitus (Acute) Morbid obesity (Acute) Non-healing surgical wound of left groin (Acute) Non-healing surgical wound (Acute) Assessment: Nonhealing postsurgical wound left groin status post surgical excision of necrotizing fasciitis. Bilateral lower extremity edema. Morbid obesity. Type 2 diabetes mellitus Plan: The patient was seen and examined at the wound center today and was updated on the plan of care. A subcutaneous debridement was performed today. The patient tolerated the procedure well. The patients wound care will consist of: utilizing melgisorb ag dressings daily and prn and Dakins 1-2 x per week. Wound cultures were reviewed and negative. Baseline bloodwork reviewed which demonstrated a slightly low pre-albumin and patient was advised to use Glucerna or high-protein with meals. Previous records were requested for continuity of care. Patient educated on the importance of diet on wound healing and instructed to increase protein and vitamin C intake. Patient verbalized understanding. Patient will follow up at wound healing center in one week or sooner if needed. Plastic surgery consultation pending at this time. This note was generated with Dragon dictation software. It may contain incorrect words, spelling, and punctuation that were not noted in checking the note before signing. Code Visit 111xxx-113xx: 34758 Jessica subq tissue 20 sq cm/< Add On Codes: [id number] Jessica subq tissue add-on
[2017-10-17 15:09] VITALS: BP 147/96; PULSE 81; RESP 16; TEMP 36.7
--- NOTE | 2017-10-17 19:07 | PCM.WC.PN ---
(1) Non-healing surgical wound of left groin Status: Acute Qualifiers: Code(s): T81.89XA - Other complications of procedures, not elsewhere classified, initial encounter (2) Non-healing surgical wound Status: Acute Code(s): T81.89XA - Other complications of procedures, not elsewhere classified, initial encounter (3) History of necrotising fasciitis Status: Acute Code(s): Z87.39 - Personal history of other diseases of the musculoskeletal system and connective tissue (4) Lymphedema of both lower extremities Status: Acute Code(s): I89.0 - Lymphedema, not elsewhere classified (5) Morbid obesity Status: Acute Code(s): E66.01 - Morbid (severe) obesity due to excess calories (6) Type 2 diabetes mellitus Status: Acute Qualifiers: Code(s): E11.9 - Type 2 diabetes mellitus without complications Type of Wound Date of Service: 10/17/17 Chief Complaint: Nonhealing wound status post surgical excision of necrotizing fasciitis left groin History of Wound: 46-year-old white male who presents to the wound healing center today with complaint of left groin ulceration status post surgical excision of necrotizing fasciitis. He is a past medical history which is significant for that of type 2 diabetes mellitus, gout, diabetic neuropathy, schizophrenia, bilateral lymphedema, and schizophrenia. The patient states that what initially started as a pimple in his left groin progressed to necrotizing fasciitis and he had to have this surgically debrided in April 2017. He was admitted to [facility] for 2 weeks and then [facility] for 6 weeks afterwards. He states that the groin ulcer which extends to his left lower abdomen has been slowly improving and he has been doing daily Aquacel AG dressings with an ABD for the drainage. He does state that he has had 3 wound vacs in the past which were unable to be utilized due to the location of his wound. He denies any foul-smelling discharge or systemic signs of infection at this time. The patient otherwise denies any fever, chills, nausea, vomiting, shortness of breath, chest pain or pressure, palpitations, orthopnea, syncope or presyncopal episodes. Progress of Wound: Wound is stable and slowly improving, wound bed is moist and clean and without signs of infection at this time. There was a bridge of skin that has epithelialized and now made into 2 separate wounds wound 1 left groin and wound to left lower abdominal fold - Physical Exam Vital Signs Temp Pulse Resp BP 98.0 F 81 16 147/96 H 10/17/17 15:09 10/17/17 15:09 10/17/17 15:09 10/17/17 15:09 General: Alert, Oriented x3, Cooperative, No apparent distress HEENT: Atraumatic Cardiovascular: Regular rate Abdomen: Obese Skin: Ulcer/ Wound - Left groin and left abdominal fold ulcer present with moderate amount of slough present slight serous drainage, no signs of acute infection at this time Neurological: Neuro grossly intact Psych/Mental Status: Normal Affect, Alert and oriented to time, place, person, mood and affect Debridement Note Post-Debridement Measurements/Treatment WC - Nurse 2 - General Ulcer CM Notes Start: 10/03/17 14:40 Freq: Status: Active Protocol: Activity Type Activity Date Activity User E-Sign Co-Sign Detail Recorded Client Recorded Date Recorded By Document 10/03/17 16:40 [id number] 10/03/17 16:45 DV Document 10/07/17 08:47 [id number] 10/07/17 08:52 Document 10/17/17 15:36 [id number] 10/17/17 15:54 10/03/17 10/07/17 10/17/17 16:40 08:47 15:36 Wound Center Nurse 2 #2 Left Abdominal Fold -Time 16:41 08:47 15:53 -Correct Patient Yes Yes Yes -Correct Side, Site, Position Yes Yes Yes -Correct Procedure Yes Yes Yes -Procedure Performed Yes Yes Yes -Type of Procedure Debridement Debridement Debridement -Clinical Debridement Subcutaneous Subcutaneous Subcutaneous -Post Debridement Size (cm) - Length 2.2 2.4 2.1 -Post Debridement Size (cm) - Width 12 8.1 9.0 -Post Debridement Size (cm) - Depth 0.1 0.1 0.1 -Total Square Cm 26.4 19.44 18.90 -Wound/Ulcer Outcome Not Healed Not Healed Not Healed -Ulcer Cleansing Rinsed/ Rinsed/ Irrigated with Irrigated with Saline Saline -Foul Odor after Cleansing No No -Bioengineered Tissue No No -Topical Lidocaine (%) 4 -Lidocaine (ml) 15 -Bleeding Controlled with Pressure Pressure NA Silver Nitrate -Treatment Response Procedure Procedure Procedure Tolerated Well Tolerated Well Tolerated Well #1- LEFT GROIN- POST OP -Time 16:44 08:47 15:53 -Correct Patient Yes Yes Yes -Correct Side, Site, Position Yes Yes Yes -Correct Procedure Yes Yes Yes -Procedure Performed Yes Yes Yes -Type of Procedure Debridement Debridement Debridement -Clinical Debridement Subcutaneous Subcutaneous Subcutaneous -Post Debridement Size (cm) - Length 5.0 4.2 4.0 -Post Debridement Size (cm) - Width 22.5 22 21.5 -Post Debridement Size (cm) - Depth 0.1 0.1 0.1 -Total Square Cm 112.50 92.4 86.00 -Wound/Ulcer Outcome Not Healed Not Healed Not Healed -Ulcer Cleansing Rinsed/ Rinsed/ Rinsed/ Irrigated with Irrigated with Irrigated with Saline Saline Saline -Foul Odor after Cleansing No No No -Bioengineered Tissue No No No -Topical Lidocaine (%) 4 -Lidocaine (ml) 15 -Bleeding Controlled with Pressure Pressure NA Silver Nitrate -Treatment Response Procedure Procedure Tolerated Well Tolerated Well Pain Scale: 0-10 Numeric Is Patient Pain Free? Yes Yes Yes Wound debrided: Left groin and left abdominal fold ulcer Laterality: Left Type of Debridement: Excisional debridement Anesthesia Used: 5% Lidocaine Gel Depth: in the subcutaneous layer Percentage of wound debrided: 100 Instrument Used: 7mm curette Tissue Removed: Slough and fibrous tissue and hyper granular Tory tissue Severity: Fat Layer Exposed Amount of bleeding with debridement: Mild Bleeding Controlled with: Silver Nitrate Patient tolerated procedure well Assessment/Plan Assessment: Nonhealing postsurgical wound left groin status post surgical excision of necrotizing fasciitis. Bilateral lower extremity edema. Morbid obesity. Type 2 diabetes mellitus Plan: The patient was seen and examined at the wound center today and was updated on the plan of care. A subcutaneous debridement was performed today. The patient tolerated the procedure well. The patients wound care will consist of: utilizing Aquacel extra dressings daily and prn. Wound cultures were reviewed and negative. Baseline bloodwork reviewed which demonstrated a slightly low pre-albumin and patient was advised to use Glucerna or high-protein with meals. Previous records were requested for continuity of care. Patient educated on the importance of diet on wound healing and instructed to increase protein and vitamin C intake. Patient verbalized understanding. Patient will follow up at wound healing center in one week or sooner if needed. Plastic surgery consultation per patient indicated no need for surgery at this time. This note was generated with TAPQUADation software. It may contain incorrect words, spelling, and punctuation that were not noted in checking the note before signing. Code Visit 111xxx-113xx: 11705 Jessica subq tissue 20 sq cm/<
--- NOTE | 2017-10-24 13:11 | PN.PCM_ITS ---
(1) Non-healing surgical wound of left groin Status: Acute Qualifiers: Code(s): T81.89XA - Other complications of procedures, not elsewhere classified , initial encounter (2) Non-healing surgical wound Status: Acute Code(s): T81.89XA - Other complications of procedures, not elsewhere classified, initial encounter (3) History of necrotising fasciitis Status: Acute Code(s): Z87.39 - Personal history of other diseases of the musculoskeletal system and connective tissue (4) Lymphedema of both lower extremities Status: Acute Code(s): I89.0 - Lymphedema, not elsewhere classified (5) Morbid obesity Status: Acute Code(s): E66.01 - Morbid (severe) obesity due to excess calories (6) Type 2 diabetes mellitus Status: Acute Qualifiers: Code(s): E11.9 - Type 2 diabetes mellitus without complications Type of Wound Date of Service: 10/17/17 Chief Complaint: Nonhealing wound status post surgical excision of necrotizing fasciitis left groin History of Wound: 46-year-old white male who presents to the wound healing center today with complaint of left groin ulceration status post surgical excision of necrotizing fasciitis. He is a past medical history which is significant for that of type 2 diabetes mellitus, gout, diabetic neuropathy, schizophrenia, bilateral lymphedema, and schizophrenia. The patient states that what initially started as a pimple in his left groin progressed to necrotizing fasciitis and he had to have this surgically debrided in April 2017. He was admitted to [facility] for 2 weeks and then [facility] for 6 weeks afterwards. He states that the groin ulcer which extends to his left lower abdomen has been slowly improving and he has been doing daily Aquacel AG dressings with an ABD for the drainage. He does state that he has had 3 wound vacs in the past which were unable to be utilized due to the location of his wound. He denies any foul-smelling discharge or systemic signs of infection at this time. The patient otherwise denies any fever, chills, nausea, vomiting, shortness of breath, chest pain or pressure, palpitations, orthopnea, syncope or presyncopal episodes. Progress of Wound: Wound is stable and slowly improving, wound bed is moist and clean and without signs of infection at this time. There was a bridge of skin that has epithelialized and now made into 2 separate wounds wound 1 left groin and wound to left lower abdominal fold - Physical Exam Vital Signs Temp Pulse Resp BP 98.0 F 81 16 147/96 H 10/17/17 15:09 10/17/17 15:09 10/17/17 15:09 10/17/17 15:09 General: Alert, Oriented x3, Cooperative, No apparent distress HEENT: Atraumatic Cardiovascular: Regular rate Abdomen: Obese Skin: Ulcer/ Wound - Left groin and left abdominal fold ulcer present with moderate amount of slough present slight serous drainage, no signs of acute infection at this time Neurological: Neuro grossly intact Psych/Mental Status: Normal Affect, Alert and oriented to time, place, person, mood and affect Debridement Note Post-Debridement Measurements/Treatment WC - Nurse 2 - General Ulcer CM Notes Start: 10/03/17 14:40 Freq: Status: Active Protocol: Activity Type Activity Date Activity User E-Sign Co-Sign Detail Recorded Client Recorded Date Recorded By Document 10/03/17 16:40 [id number] 10/03/17 16:45 DV Document 10/07/17 08:47 [id number] 10/07/17 08:52 Document 10/17/17 15:36 [id number] 10/17/17 15:54 10/03/17 10/07/17 10/17/17 16:40 08:47 15:36 Wound Center Nurse 2 #2 Left Abdominal Fold -Time 16:41 08:47 15:53 -Correct Patient Yes Yes Yes -Correct Side, Site, Position Yes Yes Yes -Correct Procedure Yes Yes Yes -Procedure Performed Yes Yes Yes -Type of Procedure Debridement Debridement Debridement -Clinical Debridement Subcutaneous Subcutaneous Subcutaneous -Post Debridement Size (cm) - Length 2.2 2.4 2.1 -Post Debridement Size (cm) - Width 12 8.1 9.0 -Post Debridement Size (cm) - Depth 0.1 0.1 0.1 -Total Square Cm 26.4 19.44 18.90 -Wound/Ulcer Outcome Not Healed Not Healed Not Healed -Ulcer Cleansing Rinsed/ Rinsed/ Irrigated with Irrigated with Saline Saline -Foul Odor after Cleansing No No -Bioengineered Tissue No No -Topical Lidocaine (%) 4 -Lidocaine (ml) 15 -Bleeding Controlled with Pressure Pressure NA Silver Nitrate -Treatment Response Procedure Procedure Procedure Tolerated Well Tolerated Well Tolerated Well #1- LEFT GROIN- POST OP -Time 16:44 08:47 15:53 -Correct Patient Yes Yes Yes -Correct Side, Site, Position Yes Yes Yes -Correct Procedure Yes Yes Yes -Procedure Performed Yes Yes Yes -Type of Procedure Debridement Debridement Debridement -Clinical Debridement Subcutaneous Subcutaneous Subcutaneous -Post Debridement Size (cm) - Length 5.0 4.2 4.0 -Post Debridement Size (cm) - Width 22.5 22 21.5 -Post Debridement Size (cm) - Depth 0.1 0.1 0.1 -Total Square Cm 112.50 92.4 86.00 -Wound/Ulcer Outcome Not Healed Not Healed Not Healed -Ulcer Cleansing Rinsed/ Rinsed/ Rinsed/ Irrigated with Irrigated with Irrigated with Saline Saline Saline -Foul Odor after Cleansing No No No -Bioengineered Tissue No No No -Topical Lidocaine (%) 4 -Lidocaine (ml) 15 -Bleeding Controlled with Pressure Pressure NA Silver Nitrate -Treatment Response Procedure Procedure Tolerated Well Tolerated Well Pain Scale: 0-10 Numeric Is Patient Pain Free? Yes Yes Yes Wound debrided: Left groin and left abdominal fold ulcer Laterality: Left Type of Debridement: Excisional debridement Anesthesia Used: 5% Lidocaine Gel Depth: in the subcutaneous layer Percentage of wound debrided: 100 Instrument Used: 7mm curette Tissue Removed: Slough and fibrous tissue and hyper granular Tory tissue Severity: Fat Layer Exposed Amount of bleeding with debridement: Mild Bleeding Controlled with: Silver Nitrate Patient tolerated procedure well Assessment/Plan Assessment: Nonhealing postsurgical wound left groin status post surgical excision of necrotizing fasciitis. Bilateral lower extremity edema. Morbid obesity. Type 2 diabetes mellitus Plan: The patient was seen and examined at the wound center today and was updated on the plan of care. A subcutaneous debridement was performed today. The patient tolerated the procedure well. The patients wound care will consist of: utilizing Aquacel extra dressings daily and prn. Wound cultures were reviewed and negative. Baseline bloodwork reviewed which demonstrated a slightly low pre-albumin and patient was advised to use Glucerna or high- protein with meals. Previous records were requested for continuity of care. Patient educated on the importance of diet on wound healing and instructed to increase protein and vitamin C intake. Patient verbalized understanding. Patient will follow up at wound healing center in one week or sooner if needed. Plastic surgery consultation per patient indicated no need for surgery at this time. This note was generated with [employer] software. It may contain incorrect words, spelling, and punctuation that were not noted in checking the note before signing. Code Visit 111xxx-113xx: [id number] Jessica subq tissue 20 sq cm/<
== END 2017-10-19 23:59 ==
LOC: WC 15:00
PROVIDERS: Family Provider Family Medicine; PCP Family Medicine; Visit Provider Nurse Practitioner Family
DX: T81.89XA Other complications of procedures, not elsewhere classified, initial encounter (principal); Z87.39 Personal history of other diseases of the musculoskeletal system and connective tissue; I89.0 Lymphedema, not elsewhere classified; E66.01 Morbid (severe) obesity due to excess calories; Z68.43 Body mass index [BMI] 50.0-59.9, adult; Z71.3 Dietary counseling and surveillance; E11.40 Type 2 diabetes mellitus with diabetic neuropathy, unspecified; R60.0 Localized edema
CPT/HCPCS: 11042; 11045; 17250

== ENCOUNTER 2017-11-14 16:00 | Outpatient (RCR) | payer MEDICARE, MEDICAID, SELFPAY ==
[2017-10-20 00:49] VITALS: BP 147/96; PULSE 81; RESP 16; TEMP 36.7
[2017-10-24 15:52] VITALS: BP 149/76; PULSE 90; RESP 18; TEMP 37
--- NOTE | 2017-10-24 20:43 | PCM.WC.PN ---
(1) Non-healing surgical wound of left groin Status: Acute Qualifiers: Code(s): T81.89XA - Other complications of procedures, not elsewhere classified, initial encounter (2) Diabetic neuropathy Status: Acute Code(s): E11.40 - Type 2 diabetes mellitus with diabetic neuropathy, unspecified (3) History of necrotising fasciitis Status: Acute Code(s): Z87.39 - Personal history of other diseases of the musculoskeletal system and connective tissue (4) Lymphedema of both lower extremities Status: Acute Code(s): I89.0 - Lymphedema, not elsewhere classified (5) Morbid obesity Status: Acute Code(s): E66.01 - Morbid (severe) obesity due to excess calories (6) Non-healing surgical wound Status: Acute Code(s): T81.89XA - Other complications of procedures, not elsewhere classified, initial encounter (7) Type 2 diabetes mellitus Status: Acute Qualifiers: Code(s): E11.9 - Type 2 diabetes mellitus without complications Type of Wound Date of Service: 10/24/17 Chief Complaint: Nonhealing wound status post surgical excision of necrotizing fasciitis left groin History of Wound: 46-year-old white male who presents to the wound healing center today with complaint of left groin ulceration status post surgical excision of necrotizing fasciitis. He is a past medical history which is significant for that of type 2 diabetes mellitus, gout, diabetic neuropathy, schizophrenia, bilateral lymphedema, and schizophrenia. The patient states that what initially started as a pimple in his left groin progressed to necrotizing fasciitis and he had to have this surgically debrided in April 2017. He was admitted to [facility] for 2 weeks and then [facility] for 6 weeks afterwards. He states that the groin ulcer which extends to his left lower abdomen has been slowly improving and he has been doing daily Aquacel AG dressings with an ABD for the drainage. He does state that he has had 3 wound vacs in the past which were unable to be utilized due to the location of his wound. He denies any foul-smelling discharge or systemic signs of infection at this time. The patient otherwise denies any fever, chills, nausea, vomiting, shortness of breath, chest pain or pressure, palpitations, orthopnea, syncope or presyncopal episodes. Progress of Wound: Wound is stable and slowly improving, wound bed is moist and clean and without signs of infection at this time. There was a bridge of skin that has epithelialized and now made into 2 separate wounds wound 1 left groin and wound to left lower abdominal fold - Physical Exam Vital Signs Temp Pulse Resp BP 98.6 F 90 18 149/76 H 10/24/17 15:52 10/24/17 15:52 10/24/17 15:52 10/24/17 15:52 General: Alert, Oriented x3 HEENT: Atraumatic Cardiovascular: Regular rate Skin: Ulcer/ Wound - ulcers present left groin and left abdomen with adherent slough and some hypergranulatory tissue, no signs acute infection Neurological: Neuro grossly intact Psych/Mental Status: Normal Affect, Appropriate, Alert and oriented to time, place, person, mood and affect Debridement Note Post-Debridement Measurements/Treatment WC - Nurse 2 - General Ulcer CM Notes Start: 10/24/17 15:52 Freq: Status: Active Protocol: Activity Type Activity Date Activity User E-Sign Co-Sign Detail Recorded Client Recorded Date Recorded By Document 10/24/17 16:42 [id number] 10/24/17 16:43 10/24/17 16:42 Wound Center Nurse 2 #2 Left Abdominal Fold -Time 16:42 -Correct Patient Yes -Correct Side, Site, Position Yes -Correct Procedure Yes -Procedure Performed Yes -Type of Procedure Debridement -Clinical Debridement Subcutaneous -Post Debridement Size (cm) - Length 1.9 -Post Debridement Size (cm) - Width 8.2 -Post Debridement Size (cm) - Depth 0.1 -Total Square Cm 15.58 -Wound/Ulcer Outcome Not Healed -Ulcer Cleansing Rinsed/ Irrigated with Saline -Foul Odor after Cleansing No -Bioengineered Tissue No -Topical Lidocaine (%) 4 -Bleeding Controlled with Pressure -Other pocket 2.9cm -Treatment Response Procedure Tolerated Well #1- LEFT GROIN- POST OP -Time 16:43 -Correct Patient Yes -Correct Side, Site, Position Yes -Correct Procedure Yes -Procedure Performed Yes -Type of Procedure Debridement -Clinical Debridement Subcutaneous -Post Debridement Size (cm) - Length 4.1 -Post Debridement Size (cm) - Width 22.5 -Post Debridement Size (cm) - Depth 0.1 -Total Square Cm 92.25 -Wound/Ulcer Outcome Not Healed -Ulcer Cleansing Rinsed/ Irrigated with Saline -Foul Odor after Cleansing No -Bioengineered Tissue No -Topical Lidocaine (%) 4 -Bleeding Controlled with Pressure -Treatment Response Procedure Tolerated Well Pain Scale: 0-10 Numeric Is Patient Pain Free? Yes Wound debrided: left abdominal fold left groin ulcer Laterality: Left Type of Debridement: Excisional debridement Anesthesia Used: 5% Lidocaine Gel Depth: in the subcutaneous layer Percentage of wound debrided: 100 Instrument Used: 7mm curette Tissue Removed: slough Severity: Fat Layer Exposed Amount of bleeding with debridement: Mild Bleeding Controlled with: Pressure Patient tolerated procedure well Assessment/Plan Assessment: Nonhealing postsurgical wound left groin status post surgical excision of necrotizing fasciitis. Bilateral lower extremity edema. Morbid obesity. Type 2 diabetes mellitus Plan: The patient was seen and examined at the wound center today and was updated on the plan of care. A subcutaneous debridement was performed today. The patient tolerated the procedure well. The patients wound care will consist of: utilizing aquacell extra dressings daily. Wound cultures were reviewed and negative. Baseline bloodwork reviewed which demonstrated a slightly low pre-albumin and patient was advised to use Glucerna or high-protein with meals. Previous records were requested for continuity of care. Patient educated on the importance of diet on wound healing and instructed to increase protein and vitamin C intake. Patient verbalized understanding. Patient will follow up at wound healing center in one week or sooner if needed. Plastic surgery consultation - no surgery indicated. This note was generated with [employer] software. It may contain incorrect words, spelling, and punctuation that were not noted in checking the note before signing. Code Visit 111xxx-113xx: 31212 Jessica subq tissue 20 sq cm/< Add On Codes: [id number] Jessica subq tissue add-on
--- NOTE | 2017-10-29 10:46 | PN.PCM_ITS ---
(1) Non-healing surgical wound of left groin Status: Acute Qualifiers: Code(s): T81.89XA - Other complications of procedures, not elsewhere classified , initial encounter (2) Diabetic neuropathy Status: Acute Code(s): E11.40 - Type 2 diabetes mellitus with diabetic neuropathy, unspecified (3) History of necrotising fasciitis Status: Acute Code(s): Z87.39 - Personal history of other diseases of the musculoskeletal system and connective tissue (4) Lymphedema of both lower extremities Status: Acute Code(s): I89.0 - Lymphedema, not elsewhere classified (5) Morbid obesity Status: Acute Code(s): E66.01 - Morbid (severe) obesity due to excess calories (6) Non-healing surgical wound Status: Acute Code(s): T81.89XA - Other complications of procedures, not elsewhere classified, initial encounter (7) Type 2 diabetes mellitus Status: Acute Qualifiers: Code(s): E11.9 - Type 2 diabetes mellitus without complications Type of Wound Date of Service: 10/24/17 Chief Complaint: Nonhealing wound status post surgical excision of necrotizing fasciitis left groin History of Wound: 46-year-old white male who presents to the wound healing center today with complaint of left groin ulceration status post surgical excision of necrotizing fasciitis. He is a past medical history which is significant for that of type 2 diabetes mellitus, gout, diabetic neuropathy, schizophrenia, bilateral lymphedema, and schizophrenia. The patient states that what initially started as a pimple in his left groin progressed to necrotizing fasciitis and he had to have this surgically debrided in April 2017. He was admitted to [facility] for 2 weeks and then [facility] for 6 weeks afterwards. He states that the groin ulcer which extends to his left lower abdomen has been slowly improving and he has been doing daily Aquacel AG dressings with an ABD for the drainage. He does state that he has had 3 wound vacs in the past which were unable to be utilized due to the location of his wound. He denies any foul-smelling discharge or systemic signs of infection at this time. The patient otherwise denies any fever, chills, nausea, vomiting, shortness of breath, chest pain or pressure, palpitations, orthopnea, syncope or presyncopal episodes. Progress of Wound: Wound is stable and slowly improving, wound bed is moist and clean and without signs of infection at this time. There was a bridge of skin that has epithelialized and now made into 2 separate wounds wound 1 left groin and wound to left lower abdominal fold - Physical Exam Vital Signs Temp Pulse Resp BP 98.6 F 90 18 149/76 H 10/24/17 15:52 10/24/17 15:52 10/24/17 15:52 10/24/17 15:52 General: Alert, Oriented x3 HEENT: Atraumatic Cardiovascular: Regular rate Skin: Ulcer/ Wound - ulcers present left groin and left abdomen with adherent slough and some hypergranulatory tissue, no signs acute infection Neurological: Neuro grossly intact Psych/Mental Status: Normal Affect, Appropriate, Alert and oriented to time, place, person, mood and affect Debridement Note Post-Debridement Measurements/Treatment WC - Nurse 2 - General Ulcer CM Notes Start: 10/24/17 15:52 Freq: Status: Active Protocol: Activity Type Activity Date Activity User E-Sign Co-Sign Detail Recorded Client Recorded Date Recorded By Document 10/24/17 16:42 [id number] 10/24/17 16:43 10/24/17 16:42 Wound Center Nurse 2 #2 Left Abdominal Fold -Time 16:42 -Correct Patient Yes -Correct Side, Site, Position Yes -Correct Procedure Yes -Procedure Performed Yes -Type of Procedure Debridement -Clinical Debridement Subcutaneous -Post Debridement Size (cm) - Length 1.9 -Post Debridement Size (cm) - Width 8.2 -Post Debridement Size (cm) - Depth 0.1 -Total Square Cm 15.58 -Wound/Ulcer Outcome Not Healed -Ulcer Cleansing Rinsed/ Irrigated with Saline -Foul Odor after Cleansing No -Bioengineered Tissue No -Topical Lidocaine (%) 4 -Bleeding Controlled with Pressure -Other pocket 2.9cm -Treatment Response Procedure Tolerated Well #1- LEFT GROIN- POST OP -Time 16:43 -Correct Patient Yes -Correct Side, Site, Position Yes -Correct Procedure Yes -Procedure Performed Yes -Type of Procedure Debridement -Clinical Debridement Subcutaneous -Post Debridement Size (cm) - Length 4.1 -Post Debridement Size (cm) - Width 22.5 -Post Debridement Size (cm) - Depth 0.1 -Total Square Cm 92.25 -Wound/Ulcer Outcome Not Healed -Ulcer Cleansing Rinsed/ Irrigated with Saline -Foul Odor after Cleansing No -Bioengineered Tissue No -Topical Lidocaine (%) 4 -Bleeding Controlled with Pressure -Treatment Response Procedure Tolerated Well Pain Scale: 0-10 Numeric Is Patient Pain Free? Yes Wound debrided: left abdominal fold left groin ulcer Laterality: Left Type of Debridement: Excisional debridement Anesthesia Used: 5% Lidocaine Gel Depth: in the subcutaneous layer Percentage of wound debrided: 100 Instrument Used: 7mm curette Tissue Removed: slough Severity: Fat Layer Exposed Amount of bleeding with debridement: Mild Bleeding Controlled with: Pressure Patient tolerated procedure well Assessment/Plan Assessment: Nonhealing postsurgical wound left groin status post surgical excision of necrotizing fasciitis. Bilateral lower extremity edema. Morbid obesity. Type 2 diabetes mellitus Plan: The patient was seen and examined at the wound center today and was updated on the plan of care. A subcutaneous debridement was performed today. The patient tolerated the procedure well. The patients wound care will consist of: utilizing aquacell extra dressings daily. Wound cultures were reviewed and negative. Baseline bloodwork reviewed which demonstrated a slightly low pre- albumin and patient was advised to use Glucerna or high-protein with meals. Previous records were requested for continuity of care. Patient educated on the importance of diet on wound healing and instructed to increase protein and vitamin C intake. Patient verbalized understanding. Patient will follow up at wound healing center in one week or sooner if needed. Plastic surgery consultation - no surgery indicated. This note was generated with [employer] software. It may contain incorrect words, spelling, and punctuation that were not noted in checking the note before signing. Code Visit 111xxx-113xx: [id number] Jessica subq tissue 20 sq cm/< Add On Codes: [id number] Jessica subq tissue add-on
[2017-10-31 16:00] VITALS: BP 133/74; PULSE 100; RESP 16; TEMP 37.6
--- NOTE | 2017-10-31 20:16 | PCM.WC.PN ---
(1) Non-healing surgical wound of left groin Status: Acute Qualifiers: Code(s): T81.89XA - Other complications of procedures, not elsewhere classified, initial encounter (2) Diabetic neuropathy Status: Acute Code(s): E11.40 - Type 2 diabetes mellitus with diabetic neuropathy, unspecified (3) History of necrotising fasciitis Status: Acute Code(s): Z87.39 - Personal history of other diseases of the musculoskeletal system and connective tissue (4) Lymphedema of both lower extremities Status: Acute Code(s): I89.0 - Lymphedema, not elsewhere classified (5) Morbid obesity Status: Acute Code(s): E66.01 - Morbid (severe) obesity due to excess calories (6) Non-healing surgical wound Status: Acute Code(s): T81.89XA - Other complications of procedures, not elsewhere classified, initial encounter (7) Type 2 diabetes mellitus Status: Acute Qualifiers: Code(s): E11.9 - Type 2 diabetes mellitus without complications Type of Wound Date of Service: 10/31/17 Chief Complaint: Nonhealing wound status post surgical excision of necrotizing fasciitis left groin History of Wound: 46-year-old white male who presents to the wound healing center today with complaint of left groin ulceration status post surgical excision of necrotizing fasciitis. He is a past medical history which is significant for that of type 2 diabetes mellitus, gout, diabetic neuropathy, schizophrenia, bilateral lymphedema, and schizophrenia. The patient states that what initially started as a pimple in his left groin progressed to necrotizing fasciitis and he had to have this surgically debrided in April 2017. He was admitted to [facility] for 2 weeks and then [facility] for 6 weeks afterwards. He states that the groin ulcer which extends to his left lower abdomen has been slowly improving and he has been doing daily Aquacel AG dressings with an ABD for the drainage. He does state that he has had 3 wound vacs in the past which were unable to be utilized due to the location of his wound. He denies any foul-smelling discharge or systemic signs of infection at this time. The patient otherwise denies any fever, chills, nausea, vomiting, shortness of breath, chest pain or pressure, palpitations, orthopnea, syncope or presyncopal episodes. Progress of Wound: Wound is stable and slowly improving, wound bed is moist and clean and without signs of infection at this time. There was a bridge of skin that has epithelialized and now made into 2 separate wounds wound 1 left groin and wound to left lower abdominal fold - Physical Exam Vital Signs Temp Pulse Resp BP 99.6 F H 100 16 133/74 H 10/31/17 16:00 10/31/17 16:00 10/31/17 16:00 10/31/17 16:00 General: Alert, Oriented x3, Cooperative, No apparent distress HEENT: Atraumatic Abdomen: Obese Extremities: Edema - BLLE Skin: Ulcer/ Wound - Ulcer of left groin and pannus with adherant slough present Debridement Note Post-Debridement Measurements/Treatment WC - Nurse 2 - General Ulcer CM Notes Start: 10/24/17 15:52 Freq: Status: Active Protocol: Activity Type Activity Date Activity User E-Sign Co-Sign Detail Recorded Client Recorded Date Recorded By Document 10/24/17 16:42 TM [id number] 10/24/17 16:43 TM Document 10/31/17 16:49 TM [id number] 10/31/17 16:52 TM 10/24/17 10/31/17 16:42 16:49 Wound Center Nurse 2 #2 Left Abdominal Fold -Time 16:42 16:49 -Correct Patient Yes Yes -Correct Side, Site, Position Yes Yes -Correct Procedure Yes Yes -Procedure Performed Yes Yes -Type of Procedure Debridement Debridement -Clinical Debridement Subcutaneous Subcutaneous -Post Debridement Size (cm) - Length 1.9 1.1 -Post Debridement Size (cm) - Width 8.2 8.0 -Post Debridement Size (cm) - Depth 0.1 0.1 -Total Square Cm 15.58 8.80 -Wound/Ulcer Outcome Not Healed Not Healed -Ulcer Cleansing Rinsed/ Rinsed/ Irrigated with Irrigated with Saline Saline -Foul Odor after Cleansing No No -Bioengineered Tissue No No -Topical Lidocaine (%) 4 4 -Bleeding Controlled with Pressure Pressure -Other pocket 2.9cm -Treatment Response Procedure Procedure Tolerated Well Tolerated Well #1- LEFT GROIN- POST OP -Time 16:43 16:50 -Correct Patient Yes Yes -Correct Side, Site, Position Yes Yes -Correct Procedure Yes Yes -Procedure Performed Yes Yes -Type of Procedure Debridement Debridement -Clinical Debridement Subcutaneous Subcutaneous -Post Debridement Size (cm) - Length 4.1 3.0 -Post Debridement Size (cm) - Width 22.5 20.0 -Post Debridement Size (cm) - Depth 0.1 0.1 -Total Square Cm 92.25 60.00 -Wound/Ulcer Outcome Not Healed Not Healed -Ulcer Cleansing Rinsed/ Rinsed/ Irrigated with Irrigated with Saline Saline -Foul Odor after Cleansing No No -Bioengineered Tissue No No -Topical Lidocaine (%) 4 4 -Bleeding Controlled with Pressure Pressure -Other 2.9CM POCKET -Treatment Response Procedure Procedure Tolerated Well Tolerated Well Pain Scale: 0-10 Numeric Is Patient Pain Free? Yes Yes Wound debrided: Left groin and left abdominal fold skin ulcers Laterality: Left Type of Debridement: Excisional debridement Anesthesia Used: 5% Lidocaine Gel Depth: in the subcutaneous layer Percentage of wound debrided: 100 Instrument Used: 7mm curette Tissue Removed: adherent slough and devitalized tissue Severity: Fat Layer Exposed Amount of bleeding with debridement: Mild Bleeding Controlled with: Pressure Patient tolerated procedure well Assessment/Plan Assessment: Nonhealing postsurgical wound left groin status post surgical excision of necrotizing fasciitis. Bilateral lower extremity edema. Morbid obesity. Type 2 diabetes mellitus Plan: The patient was seen and examined at the wound center today and was updated on the plan of care. A subcutaneous debridement was performed today. The patient tolerated the procedure well. The patients wound care will consist of: utilizing aquacell extra dressings daily. Wound cultures were reviewed and negative. Baseline bloodwork reviewed which demonstrated a slightly low pre-albumin and patient was advised to use Glucerna or high-protein with meals. Previous records were requested for continuity of care. Patient educated on the importance of diet on wound healing and instructed to increase protein and vitamin C intake. Patient verbalized understanding. Patient will follow up at wound healing center in one week or sooner if needed. Plastic surgery consultation - no surgery indicated. This note was generated with [employer] dictation software. It may contain incorrect words, spelling, and punctuation that were not noted in checking the note before signing. Code Visit 111xxx-113xx: 92357 Jessica subq tissue 20 sq cm/< Add On Codes: [id number] Jessica subq tissue add-on
--- NOTE | 2017-11-05 11:20 | PN.PCM_ITS ---
(1) Non-healing surgical wound of left groin Status: Acute Qualifiers: Code(s): T81.89XA - Other complications of procedures, not elsewhere classified , initial encounter (2) Diabetic neuropathy Status: Acute Code(s): E11.40 - Type 2 diabetes mellitus with diabetic neuropathy, unspecified (3) History of necrotising fasciitis Status: Acute Code(s): Z87.39 - Personal history of other diseases of the musculoskeletal system and connective tissue (4) Lymphedema of both lower extremities Status: Acute Code(s): I89.0 - Lymphedema, not elsewhere classified (5) Morbid obesity Status: Acute Code(s): E66.01 - Morbid (severe) obesity due to excess calories (6) Non-healing surgical wound Status: Acute Code(s): T81.89XA - Other complications of procedures, not elsewhere classified, initial encounter (7) Type 2 diabetes mellitus Status: Acute Qualifiers: Code(s): E11.9 - Type 2 diabetes mellitus without complications Type of Wound Date of Service: 10/31/17 Chief Complaint: Nonhealing wound status post surgical excision of necrotizing fasciitis left groin History of Wound: 46-year-old white male who presents to the wound healing center today with complaint of left groin ulceration status post surgical excision of necrotizing fasciitis. He is a past medical history which is significant for that of type 2 diabetes mellitus, gout, diabetic neuropathy, schizophrenia, bilateral lymphedema, and schizophrenia. The patient states that what initially started as a pimple in his left groin progressed to necrotizing fasciitis and he had to have this surgically debrided in April 2017. He was admitted to [facility] for 2 weeks and then [facility] for 6 weeks afterwards. He states that the groin ulcer which extends to his left lower abdomen has been slowly improving and he has been doing daily Aquacel AG dressings with an ABD for the drainage. He does state that he has had 3 wound vacs in the past which were unable to be utilized due to the location of his wound. He denies any foul-smelling discharge or systemic signs of infection at this time. The patient otherwise denies any fever, chills, nausea, vomiting, shortness of breath, chest pain or pressure, palpitations, orthopnea, syncope or presyncopal episodes. Progress of Wound: Wound is stable and slowly improving, wound bed is moist and clean and without signs of infection at this time. There was a bridge of skin that has epithelialized and now made into 2 separate wounds wound 1 left groin and wound to left lower abdominal fold - Physical Exam Vital Signs Temp Pulse Resp BP 99.6 F H 100 16 133/74 H 10/31/17 16:00 10/31/17 16:00 10/31/17 16:00 10/31/17 16:00 General: Alert, Oriented x3, Cooperative, No apparent distress HEENT: Atraumatic Abdomen: Obese Extremities: Edema - BLLE Skin: Ulcer/ Wound - Ulcer of left groin and pannus with adherant slough present Debridement Note Post-Debridement Measurements/Treatment WC - Nurse 2 - General Ulcer CM Notes Start: 10/24/17 15:52 Freq: Status: Active Protocol: Activity Type Activity Date Activity User E-Sign Co-Sign Detail Recorded Client Recorded Date Recorded By Document 10/24/17 16:42 TM [id number] 10/24/17 16:43 TM Document 10/31/17 16:49 TM [id number] 10/31/17 16:52 TM 10/24/17 10/31/17 16:42 16:49 Wound Center Nurse 2 #2 Left Abdominal Fold -Time 16:42 16:49 -Correct Patient Yes Yes -Correct Side, Site, Position Yes Yes -Correct Procedure Yes Yes -Procedure Performed Yes Yes -Type of Procedure Debridement Debridement -Clinical Debridement Subcutaneous Subcutaneous -Post Debridement Size (cm) - Length 1.9 1.1 -Post Debridement Size (cm) - Width 8.2 8.0 -Post Debridement Size (cm) - Depth 0.1 0.1 -Total Square Cm 15.58 8.80 -Wound/Ulcer Outcome Not Healed Not Healed -Ulcer Cleansing Rinsed/ Rinsed/ Irrigated with Irrigated with Saline Saline -Foul Odor after Cleansing No No -Bioengineered Tissue No No -Topical Lidocaine (%) 4 4 -Bleeding Controlled with Pressure Pressure -Other pocket 2.9cm -Treatment Response Procedure Procedure Tolerated Well Tolerated Well #1- LEFT GROIN- POST OP -Time 16:43 16:50 -Correct Patient Yes Yes -Correct Side, Site, Position Yes Yes -Correct Procedure Yes Yes -Procedure Performed Yes Yes -Type of Procedure Debridement Debridement -Clinical Debridement Subcutaneous Subcutaneous -Post Debridement Size (cm) - Length 4.1 3.0 -Post Debridement Size (cm) - Width 22.5 20.0 -Post Debridement Size (cm) - Depth 0.1 0.1 -Total Square Cm 92.25 60.00 -Wound/Ulcer Outcome Not Healed Not Healed -Ulcer Cleansing Rinsed/ Rinsed/ Irrigated with Irrigated with Saline Saline -Foul Odor after Cleansing No No -Bioengineered Tissue No No -Topical Lidocaine (%) 4 4 -Bleeding Controlled with Pressure Pressure -Other 2.9CM POCKET -Treatment Response Procedure Procedure Tolerated Well Tolerated Well Pain Scale: 0-10 Numeric Is Patient Pain Free? Yes Yes Wound debrided: Left groin and left abdominal fold skin ulcers Laterality: Left Type of Debridement: Excisional debridement Anesthesia Used: 5% Lidocaine Gel Depth: in the subcutaneous layer Percentage of wound debrided: 100 Instrument Used: 7mm curette Tissue Removed: adherent slough and devitalized tissue Severity: Fat Layer Exposed Amount of bleeding with debridement: Mild Bleeding Controlled with: Pressure Patient tolerated procedure well Assessment/Plan Assessment: Nonhealing postsurgical wound left groin status post surgical excision of necrotizing fasciitis. Bilateral lower extremity edema. Morbid obesity. Type 2 diabetes mellitus Plan: The patient was seen and examined at the wound center today and was updated on the plan of care. A subcutaneous debridement was performed today. The patient tolerated the procedure well. The patients wound care will consist of: utilizing aquacell extra dressings daily. Wound cultures were reviewed and negative. Baseline bloodwork reviewed which demonstrated a slightly low pre- albumin and patient was advised to use Glucerna or high-protein with meals. Previous records were requested for continuity of care. Patient educated on the importance of diet on wound healing and instructed to increase protein and vitamin C intake. Patient verbalized understanding. Patient will follow up at wound healing center in one week or sooner if needed. Plastic surgery consultation - no surgery indicated. This note was generated with [employer] dictation software. It may contain incorrect words, spelling, and punctuation that were not noted in checking the note before signing. Code Visit 111xxx-113xx: 36901 Jessica subq tissue 20 sq cm/< Add On Codes: [id number] Jessica subq tissue add-on
[2017-11-07 16:02] VITALS: BP 133/96; PULSE 93; RESP 16; TEMP 36
--- NOTE | 2017-11-07 16:11 | PCM.WC.PN ---
(1) Non-healing surgical wound of left groin Status: Acute Qualifiers: Code(s): T81.89XA - Other complications of procedures, not elsewhere classified, initial encounter (2) Diabetic neuropathy Status: Acute Code(s): E11.40 - Type 2 diabetes mellitus with diabetic neuropathy, unspecified (3) History of necrotising fasciitis Status: Acute Code(s): Z87.39 - Personal history of other diseases of the musculoskeletal system and connective tissue (4) Lymphedema of both lower extremities Status: Acute Code(s): I89.0 - Lymphedema, not elsewhere classified (5) Morbid obesity Status: Acute Code(s): E66.01 - Morbid (severe) obesity due to excess calories (6) Non-healing surgical wound Status: Acute Code(s): T81.89XA - Other complications of procedures, not elsewhere classified, initial encounter (7) Type 2 diabetes mellitus Status: Acute Qualifiers: Code(s): E11.9 - Type 2 diabetes mellitus without complications Type of Wound Date of Service: 11/07/17 Chief Complaint: Nonhealing wound status post surgical excision of necrotizing fasciitis left groin History of Wound: 46-year-old white male who presents to the wound healing center today with complaint of left groin ulceration status post surgical excision of necrotizing fasciitis. He is a past medical history which is significant for that of type 2 diabetes mellitus, gout, diabetic neuropathy, schizophrenia, bilateral lymphedema, and schizophrenia. The patient states that what initially started as a pimple in his left groin progressed to necrotizing fasciitis and he had to have this surgically debrided in April 2017. He was admitted to [facility] for 2 weeks and then [facility] for 6 weeks afterwards. He states that the groin ulcer which extends to his left lower abdomen has been slowly improving and he has been doing daily Aquacel AG dressings with an ABD for the drainage. He does state that he has had 3 wound vacs in the past which were unable to be utilized due to the location of his wound. He denies any foul-smelling discharge or systemic signs of infection at this time. The patient otherwise denies any fever, chills, nausea, vomiting, shortness of breath, chest pain or pressure, palpitations, orthopnea, syncope or presyncopal episodes. Progress of Wound: Wound is stable , wound bed is moist and clean and without signs of infection at this time, however, more macerated this week after changing from [employer] AG to aquacBlucarat extra. There was a bridge of skin that has epithelialized and now made into 2 separate wounds wound 1 left groin and wound to left lower abdominal fold - Physical Exam Vital Signs Temp Pulse Resp BP 96.8 F L 93 16 133/96 H 11/07/17 16:02 11/07/17 16:02 11/07/17 16:02 11/07/17 16:02 General: Alert, Oriented x3, Cooperative, No apparent distress HEENT: Atraumatic Cardiovascular: Regular rate Skin: Ulcer/ Wound - Left abdominal fold and groin ulcer with adherant slough and macerated wound edges Neurological: Neuro grossly intact Psych/Mental Status: Normal Affect, Appropriate Debridement Note Post-Debridement Measurements/Treatment WC - Nurse 2 - General Ulcer CM Notes Start: 10/24/17 15:52 Freq: Status: Active Protocol: Activity Type Activity Date Activity User E-Sign Co-Sign Detail Recorded Client Recorded Date Recorded By Document 10/24/17 16:42 [id number] 10/24/17 16:43 TM Document 10/31/17 16:49 [id number] 10/31/17 16:52 TM Document 11/07/17 16:26 [id number] 11/07/17 16:27 10/24/17 10/31/17 11/07/17 16:42 16:49 16:26 Wound Center Nurse 2 #2 Left Abdominal Fold -Time 16:42 16:49 16:26 -Correct Patient Yes Yes Yes -Correct Side, Site, Position Yes Yes Yes -Correct Procedure Yes Yes Yes -Procedure Performed Yes Yes Yes -Type of Procedure Debridement Debridement Debridement -Clinical Debridement Subcutaneous Subcutaneous Subcutaneous -Post Debridement Size (cm) - Length 1.9 1.1 1.5 -Post Debridement Size (cm) - Width 8.2 8.0 8.6 -Post Debridement Size (cm) - Depth 0.1 0.1 0.1 -Total Square Cm 15.58 8.80 12.90 -Wound/Ulcer Outcome Not Healed Not Healed Not Healed -Ulcer Cleansing Rinsed/ Rinsed/ Rinsed/ Irrigated with Irrigated with Irrigated with Saline Saline Saline -Foul Odor after Cleansing No No No -Bioengineered Tissue No No No -Topical Lidocaine (%) 4 4 4 -Lidocaine (ml) 20 -Bleeding Controlled with Pressure Pressure NA -Other pocket 2.9cm -Treatment Response Procedure Procedure Procedure Tolerated Well Tolerated Well Tolerated Well #1- LEFT GROIN- POST OP -Time 16:43 16:50 16:26 -Correct Patient Yes Yes Yes -Correct Side, Site, Position Yes Yes Yes -Correct Procedure Yes Yes Yes -Procedure Performed Yes Yes Yes -Type of Procedure Debridement Debridement Debridement -Clinical Debridement Subcutaneous Subcutaneous Subcutaneous -Post Debridement Size (cm) - Length 4.1 3.0 3.8 -Post Debridement Size (cm) - Width 22.5 20.0 20.4 -Post Debridement Size (cm) - Depth 0.1 0.1 0.1 -Total Square Cm 92.25 60.00 77.52 -Wound/Ulcer Outcome Not Healed Not Healed Not Healed -Ulcer Cleansing Rinsed/ Rinsed/ Rinsed/ Irrigated with Irrigated with Irrigated with Saline Saline Saline -Foul Odor after Cleansing No No No -Bioengineered Tissue No No No -Topical Lidocaine (%) 4 4 4 -Lidocaine (ml) 10 -Bleeding Controlled with Pressure Pressure NA -Other 2.9CM POCKET -Treatment Response Procedure Procedure Procedure Tolerated Well Tolerated Well Tolerated Well Pain Scale: 0-10 Numeric Is Patient Pain Free? Yes Yes Wound debrided: left groin and abdominal fold ulcer Laterality: Left Type of Debridement: Excisional debridement Anesthesia Used: 5% Lidocaine Gel Depth: in the subcutaneous layer Percentage of wound debrided: 100 Instrument Used: 7mm curette Tissue Removed: slough and devitalized tissue Severity: Fat Layer Exposed Amount of bleeding with debridement: Mild Bleeding Controlled with: Pressure Patient tolerated procedure well Assessment/Plan Assessment: Nonhealing postsurgical wound left groin status post surgical excision of necrotizing fasciitis. Bilateral lower extremity edema. Morbid obesity. Type 2 diabetes mellitus Plan: The patient was seen and examined at the wound center today and was updated on the plan of care. A subcutaneous debridement was performed today. The patient tolerated the procedure well. The patients wound care will consist of: utilizing aquacell AG dressings daily and PRN. Wound cultures were reviewed and negative. Baseline bloodwork reviewed which demonstrated a slightly low pre-albumin and patient was advised to use Glucerna or high-protein with meals. Previous records were requested for continuity of care. Patient educated on the importance of diet on wound healing and instructed to increase protein and vitamin C intake. Patient verbalized understanding. Patient will follow up at wound healing center in one week or sooner if needed. Plastic surgery consultation - no surgery indicated. This note was generated with [employer] software. It may contain incorrect words, spelling, and punctuation that were not noted in checking the note before signing. Code Visit 111xxx-113xx: 74026 Jessica subq tissue 20 sq cm/< Add On Codes: [id number] Jessica subq tissue add-on
--- NOTE | 2017-11-12 16:16 | PN.PCM_ITS ---
(1) Non-healing surgical wound of left groin Status: Acute Qualifiers: Code(s): T81.89XA - Other complications of procedures, not elsewhere classified , initial encounter (2) Diabetic neuropathy Status: Acute Code(s): E11.40 - Type 2 diabetes mellitus with diabetic neuropathy, unspecified (3) History of necrotising fasciitis Status: Acute Code(s): Z87.39 - Personal history of other diseases of the musculoskeletal system and connective tissue (4) Lymphedema of both lower extremities Status: Acute Code(s): I89.0 - Lymphedema, not elsewhere classified (5) Morbid obesity Status: Acute Code(s): E66.01 - Morbid (severe) obesity due to excess calories (6) Non-healing surgical wound Status: Acute Code(s): T81.89XA - Other complications of procedures, not elsewhere classified, initial encounter (7) Type 2 diabetes mellitus Status: Acute Qualifiers: Code(s): E11.9 - Type 2 diabetes mellitus without complications Type of Wound Date of Service: 11/07/17 Chief Complaint: Nonhealing wound status post surgical excision of necrotizing fasciitis left groin History of Wound: 46-year-old white male who presents to the wound healing center today with complaint of left groin ulceration status post surgical excision of necrotizing fasciitis. He is a past medical history which is significant for that of type 2 diabetes mellitus, gout, diabetic neuropathy, schizophrenia, bilateral lymphedema, and schizophrenia. The patient states that what initially started as a pimple in his left groin progressed to necrotizing fasciitis and he had to have this surgically debrided in April 2017. He was admitted to [facility] for 2 weeks and then [facility] for 6 weeks afterwards. He states that the groin ulcer which extends to his left lower abdomen has been slowly improving and he has been doing daily Aquacel AG dressings with an ABD for the drainage. He does state that he has had 3 wound vacs in the past which were unable to be utilized due to the location of his wound. He denies any foul-smelling discharge or systemic signs of infection at this time. The patient otherwise denies any fever, chills, nausea, vomiting, shortness of breath, chest pain or pressure, palpitations, orthopnea, syncope or presyncopal episodes. Progress of Wound: Wound is stable , wound bed is moist and clean and without signs of infection at this time, however, more macerated this week after changing from [employer] to [employer] extra. There was a bridge of skin that has epithelialized and now made into 2 separate wounds wound 1 left groin and wound to left lower abdominal fold - Physical Exam Vital Signs Temp Pulse Resp BP 96.8 F L 93 16 133/96 H 11/07/17 16:02 11/07/17 16:02 11/07/17 16:02 11/07/17 16:02 General: Alert, Oriented x3, Cooperative, No apparent distress HEENT: Atraumatic Cardiovascular: Regular rate Skin: Ulcer/ Wound - Left abdominal fold and groin ulcer with adherant slough and macerated wound edges Neurological: Neuro grossly intact Psych/Mental Status: Normal Affect, Appropriate Debridement Note Post-Debridement Measurements/Treatment WC - Nurse 2 - General Ulcer CM Notes Start: 10/24/17 15:52 Freq: Status: Active Protocol: Activity Type Activity Date Activity User E-Sign Co-Sign Detail Recorded Client Recorded Date Recorded By Document 10/24/17 16:42 [id number] 10/24/17 16:43 TM Document 10/31/17 16:49 [id number] 10/31/17 16:52 TM Document 11/07/17 16:26 [id number] 11/07/17 16:27 10/24/17 10/31/17 11/07/17 16:42 16:49 16:26 Wound Center Nurse 2 #2 Left Abdominal Fold -Time 16:42 16:49 16:26 -Correct Patient Yes Yes Yes -Correct Side, Site, Position Yes Yes Yes -Correct Procedure Yes Yes Yes -Procedure Performed Yes Yes Yes -Type of Procedure Debridement Debridement Debridement -Clinical Debridement Subcutaneous Subcutaneous Subcutaneous -Post Debridement Size (cm) - Length 1.9 1.1 1.5 -Post Debridement Size (cm) - Width 8.2 8.0 8.6 -Post Debridement Size (cm) - Depth 0.1 0.1 0.1 -Total Square Cm 15.58 8.80 12.90 -Wound/Ulcer Outcome Not Healed Not Healed Not Healed -Ulcer Cleansing Rinsed/ Rinsed/ Rinsed/ Irrigated with Irrigated with Irrigated with Saline Saline Saline -Foul Odor after Cleansing No No No -Bioengineered Tissue No No No -Topical Lidocaine (%) 4 4 4 -Lidocaine (ml) 20 -Bleeding Controlled with Pressure Pressure NA -Other pocket 2.9cm -Treatment Response Procedure Procedure Procedure Tolerated Well Tolerated Well Tolerated Well #1- LEFT GROIN- POST OP -Time 16:43 16:50 16:26 -Correct Patient Yes Yes Yes -Correct Side, Site, Position Yes Yes Yes -Correct Procedure Yes Yes Yes -Procedure Performed Yes Yes Yes -Type of Procedure Debridement Debridement Debridement -Clinical Debridement Subcutaneous Subcutaneous Subcutaneous -Post Debridement Size (cm) - Length 4.1 3.0 3.8 -Post Debridement Size (cm) - Width 22.5 20.0 20.4 -Post Debridement Size (cm) - Depth 0.1 0.1 0.1 -Total Square Cm 92.25 60.00 77.52 -Wound/Ulcer Outcome Not Healed Not Healed Not Healed -Ulcer Cleansing Rinsed/ Rinsed/ Rinsed/ Irrigated with Irrigated with Irrigated with Saline Saline Saline -Foul Odor after Cleansing No No No -Bioengineered Tissue No No No -Topical Lidocaine (%) 4 4 4 -Lidocaine (ml) 10 -Bleeding Controlled with Pressure Pressure NA -Other 2.9CM POCKET -Treatment Response Procedure Procedure Procedure Tolerated Well Tolerated Well Tolerated Well Pain Scale: 0-10 Numeric Is Patient Pain Free? Yes Yes Wound debrided: left groin and abdominal fold ulcer Laterality: Left Type of Debridement: Excisional debridement Anesthesia Used: 5% Lidocaine Gel Depth: in the subcutaneous layer Percentage of wound debrided: 100 Instrument Used: 7mm curette Tissue Removed: slough and devitalized tissue Severity: Fat Layer Exposed Amount of bleeding with debridement: Mild Bleeding Controlled with: Pressure Patient tolerated procedure well Assessment/Plan Assessment: Nonhealing postsurgical wound left groin status post surgical excision of necrotizing fasciitis. Bilateral lower extremity edema. Morbid obesity. Type 2 diabetes mellitus Plan: The patient was seen and examined at the wound center today and was updated on the plan of care. A subcutaneous debridement was performed today. The patient tolerated the procedure well. The patients wound care will consist of: utilizing aquacell AG dressings daily and PRN. Wound cultures were reviewed and negative. Baseline bloodwork reviewed which demonstrated a slightly low pre- albumin and patient was advised to use Glucerna or high-protein with meals. Previous records were requested for continuity of care. Patient educated on the importance of diet on wound healing and instructed to increase protein and vitamin C intake. Patient verbalized understanding. Patient will follow up at wound healing center in one week or sooner if needed. Plastic surgery consultation - no surgery indicated. This note was generated with [employer] software. It may contain incorrect words, spelling, and punctuation that were not noted in checking the note before signing. Code Visit 111xxx-113xx: 98911 Jessica subq tissue 20 sq cm/< Add On Codes: [id number] Jessica subq tissue add-on
[2017-11-14 16:13] VITALS: BP 135/75; PULSE 87; RESP 18; TEMP 37.1
--- NOTE | 2017-11-14 18:39 | PCM.WC.PN ---
(1) Non-healing surgical wound of left groin Status: Acute Current Visit: Yes Qualifiers: Code(s): T81.89XA - Other complications of procedures, not elsewhere classified, initial encounter (2) Diabetic neuropathy Status: Acute Current Visit: Yes Code(s): E11.40 - Type 2 diabetes mellitus with diabetic neuropathy, unspecified (3) History of necrotising fasciitis Status: Acute Current Visit: Yes Code(s): Z87.39 - Personal history of other diseases of the musculoskeletal system and connective tissue (4) Lymphedema of both lower extremities Status: Acute Current Visit: Yes Code(s): I89.0 - Lymphedema, not elsewhere classified (5) Morbid obesity Status: Acute Current Visit: Yes Code(s): E66.01 - Morbid (severe) obesity due to excess calories (6) Non-healing surgical wound Status: Acute Current Visit: Yes Code(s): T81.89XA - Other complications of procedures, not elsewhere classified, initial encounter (7) Type 2 diabetes mellitus Status: Acute Current Visit: Yes Qualifiers: Code(s): E11.9 - Type 2 diabetes mellitus without complications Type of Wound Date of Service: 11/14/17 Chief Complaint: Nonhealing wound status post surgical excision of necrotizing fasciitis left groin History of Wound: 46-year-old white male who presents to the wound healing center today with complaint of left groin ulceration status post surgical excision of necrotizing fasciitis. He is a past medical history which is significant for that of type 2 diabetes mellitus, gout, diabetic neuropathy, schizophrenia, bilateral lymphedema, and schizophrenia. The patient states that what initially started as a pimple in his left groin progressed to necrotizing fasciitis and he had to have this surgically debrided in April 2017. He was admitted to [facility] for 2 weeks and then [facility] for 6 weeks afterwards. He states that the groin ulcer which extends to his left lower abdomen has been slowly improving and he has been doing daily Aquacel AG dressings with an ABD for the drainage. He does state that he has had 3 wound vacs in the past which were unable to be utilized due to the location of his wound. He denies any foul-smelling discharge or systemic signs of infection at this time. The patient otherwise denies any fever, chills, nausea, vomiting, shortness of breath, chest pain or pressure, palpitations, orthopnea, syncope or presyncopal episodes. Progress of Wound: Wound is stable , wound bed is moist and clean and without signs of infection at this time, however, more slough this week in the left groin ulcer where patient states that he is having trouble packing the Aquasol into the tunnel. There was a bridge of skin that has epithelialized and now made into 2 separate wounds wound 1 left groin and wound to left lower abdominal fold - Physical Exam Vital Signs Temp Pulse Resp BP 98.7 F 87 18 135/75 H 11/14/17 16:13 11/14/17 16:13 11/14/17 16:13 11/14/17 16:13 General: Alert, Oriented x3, Cooperative, No apparent distress HEENT: Atraumatic Cardiovascular: Regular rate Abdomen: Obese Skin: Ulcer/ Wound - Left abdominal fold and left groin ulcer with adherent slough, wound edges are not as macerated this week as compared to last week. No signs of acute infection at this time. No purulent drainage or foul smell. Wound Measurements and Assessment WC - Nurse 1 - General Ulcer Measurement Start: 10/24/17 15:52 Freq: Status: Active Protocol: Activity Type Activity Date Activity User E-Sign Co-Sign Detail Recorded Client Recorded Date Recorded By Document 11/14/17 16:13 DL [id number] 11/14/17 16:27 DL 11/14/17 16:13 Wound Center Nurse 1 [Ulcer Assessment] #2 Left Abdominal Fold -Current Size (cm) - Length 1.5 -Current Size (cm) - Width 8 -Current Size (cm) - Depth 0.1 -Total Square Cm 12.0 -Photo Taken No -Exudate Amt Medium (34-66%) -Exudate Type Serosanguineous -Wound Margin Distinct, Outline Attached -Granulation Amt Large (67-100%) -Granulation Quality Red -Necrosis Amt Small (1-33%) -Necrotic Tissue Type Adherent Slough -Structure Exposed N/A -Texture (Inessa-wound Skin Appearance) Scarring -Moisture (Inessa-wound Skin Appearance Maceration ) -Color (Inessa-wound Skin Appearance) No Abnormality -Temperature (Inessa-wound Skin No Abnormality Appearance) (Pt Warm) -Tenderness on Palpation (Inessa-wound No Skin Appearance) -Ulcer Cleansing Rinsed/ Irrigated with Saline -Foul Odor after Cleansing No -Anesthetic Used 4% Lidocaine Solution #1- LEFT GROIN- POST OP -Current Size (cm) - Length 4.9 -Current Size (cm) - Width 18.9 -Current Size (cm) - Depth 0.1 -Total Square Cm 92.61 -Photo Taken No -Tunneling Position (O'clock) 12 -Tunneling Distance (cm) 3.3 -Exudate Amt Large (67-100%) -Exudate Type Yellow/Green -Wound Margin Distinct, Outline Attached -Granulation Amt Large (67-100%) -Granulation Quality Red -Necrosis Amt Small (1-33%) -Necrotic Tissue Type Adherent Slough -Structure Exposed N/A -Texture (Inessa-wound Skin Appearance) Localized Edema -Moisture (Inessa-wound Skin Appearance No Abnormality ) -Color (Inessa-wound Skin Appearance) No Abnormality -Temperature (Inessa-wound Skin No Abnormality Appearance) (Pt Warm) -Ulcer Cleansing Wound Cleanser -Foul Odor after Cleansing No -Anesthetic Used 4% Lidocaine Solution WC - Nurse 2 - General Ulcer CM Notes Start: 10/24/17 15:52 Freq: Status: Active Protocol: Activity Type Activity Date Activity User E-Sign Co-Sign Detail Recorded Client Recorded Date Recorded By Document 11/14/17 16:49 NELLY [email or web address] 11/14/17 17:01 NELLY 11/14/17 16:49 Wound Center Nurse 2 [Procedure/Treatment] #2 Left Abdominal Fold -Time 16:49 -Correct Patient Yes -Correct Side, Site, Position Yes -Correct Procedure Yes -Procedure Performed Yes -Type of Procedure Debridement -Clinical Debridement Subcutaneous -Post Debridement Size (cm) - Length 1.9 -Post Debridement Size (cm) - Width 8.0 -Post Debridement Size (cm) - Depth 0.1 -Total Square Cm 15.20 -Wound/Ulcer Outcome Not Healed -Ulcer Cleansing Rinsed/ Irrigated with Saline -Foul Odor after Cleansing No -Bioengineered Tissue No -Topical Lidocaine (%) 4 -Lidocaine (ml) 10 -Bleeding Controlled with NA -Treatment Response Procedure Tolerated Well #1- LEFT GROIN- POST OP -Time 16:50 -Correct Patient Yes -Correct Side, Site, Position Yes -Correct Procedure Yes -Procedure Performed Yes -Type of Procedure Debridement -Clinical Debridement Subcutaneous -Post Debridement Size (cm) - Length 5.0 -Post Debridement Size (cm) - Width 20.0 -Post Debridement Size (cm) - Depth 0.1 -Total Square Cm 100.00 -Wound/Ulcer Outcome Not Healed -Ulcer Cleansing Rinsed/ Irrigated with Saline -Foul Odor after Cleansing No -Bioengineered Tissue No -Injectable Lidocaine (%) 4 -Injectable Lidocaine w/ Epi (%) 10 -Bleeding Controlled with NA -Treatment Response Procedure Tolerated Well [See Physician Procedure note for Specifics] Pain Scale: 0-10 Numeric [Pain] -Is Patient Pain Free? Yes Neurological: Neuro grossly intact Psych/Mental Status: Normal Affect, Appropriate, Alert and oriented to time, place, person, mood and affect Debridement Note Post-Debridement Measurements/Treatment WC - Nurse 2 - General Ulcer CM Notes Start: 10/24/17 15:52 Freq: Status: Active Protocol: Activity Type Activity Date Activity User E-Sign Co-Sign Detail Recorded Client Recorded Date Recorded By Document 10/24/17 16:42 [id number] 10/24/17 16:43 Document 10/31/17 16:49 [id number] 10/31/17 16:52 Document 11/07/17 16:26 JS [id number] 11/07/17 16:27 Document 11/14/17 16:49 [id number] 11/14/17 17:01 10/24/17 10/31/17 11/07/17 16:42 16:49 16:26 Wound Center Nurse 2 #2 Left Abdominal Fold -Time 16:42 16:49 16:26 -Correct Patient Yes Yes Yes -Correct Side, Site, Position Yes Yes Yes -Correct Procedure Yes Yes Yes -Procedure Performed Yes Yes Yes -Type of Procedure Debridement Debridement Debridement -Clinical Debridement Subcutaneous Subcutaneous Subcutaneous -Post Debridement Size (cm) - Length 1.9 1.1 1.5 -Post Debridement Size (cm) - Width 8.2 8.0 8.6 -Post Debridement Size (cm) - Depth 0.1 0.1 0.1 -Total Square Cm 15.58 8.80 12.90 -Wound/Ulcer Outcome Not Healed Not Healed Not Healed -Ulcer Cleansing Rinsed/ Rinsed/ Rinsed/ Irrigated with Irrigated with Irrigated with Saline Saline Saline -Foul Odor after Cleansing No No No -Bioengineered Tissue No No No -Topical Lidocaine (%) 4 4 4 -Lidocaine (ml) 20 -Bleeding Controlled with Pressure Pressure NA -Other pocket 2.9cm -Treatment Response Procedure Procedure Procedure Tolerated Well Tolerated Well Tolerated Well #1- LEFT GROIN- POST OP -Time 16:43 16:50 16:26 -Correct Patient Yes Yes Yes -Correct Side, Site, Position Yes Yes Yes -Correct Procedure Yes Yes Yes -Procedure Performed Yes Yes Yes -Type of Procedure Debridement Debridement Debridement -Clinical Debridement Subcutaneous Subcutaneous Subcutaneous -Post Debridement Size (cm) - Length 4.1 3.0 3.8 -Post Debridement Size (cm) - Width 22.5 20.0 20.4 -Post Debridement Size (cm) - Depth 0.1 0.1 0.1 -Total Square Cm 92.25 60.00 77.52 -Wound/Ulcer Outcome Not Healed Not Healed Not Healed -Ulcer Cleansing Rinsed/ Rinsed/ Rinsed/ Irrigated with Irrigated with Irrigated with Saline Saline Saline -Foul Odor after Cleansing No No No -Bioengineered Tissue No No No -Topical Lidocaine (%) 4 4 4 -Injectable Lidocaine (%) -Lidocaine (ml) 10 -Injectable Lidocaine w/ Epi (%) -Bleeding Controlled with Pressure Pressure NA -Other 2.9CM POCKET -Treatment Response Procedure Procedure Procedure Tolerated Well Tolerated Well Tolerated Well Pain Scale: 0-10 Numeric Is Patient Pain Free? Yes Yes 11/14/17 16:49 Wound Center Nurse 2 #2 Left Abdominal Fold -Time 16:49 -Correct Patient Yes -Correct Side, Site, Position Yes -Correct Procedure Yes -Procedure Performed Yes -Type of Procedure Debridement -Clinical Debridement Subcutaneous -Post Debridement Size (cm) - Length 1.9 -Post Debridement Size (cm) - Width 8.0 -Post Debridement Size (cm) - Depth 0.1 -Total Square Cm 15.20 -Wound/Ulcer Outcome Not Healed -Ulcer Cleansing Rinsed/ Irrigated with Saline -Foul Odor after Cleansing No -Bioengineered Tissue No -Topical Lidocaine (%) 4 -Lidocaine (ml) 10 -Bleeding Controlled with NA -Other -Treatment Response Procedure Tolerated Well #1- LEFT GROIN- POST OP -Time 16:50 -Correct Patient Yes -Correct Side, Site, Position Yes -Correct Procedure Yes -Procedure Performed Yes -Type of Procedure Debridement -Clinical Debridement Subcutaneous -Post Debridement Size (cm) - Length 5.0 -Post Debridement Size (cm) - Width 20.0 -Post Debridement Size (cm) - Depth 0.1 -Total Square Cm 100.00 -Wound/Ulcer Outcome Not Healed -Ulcer Cleansing Rinsed/ Irrigated with Saline -Foul Odor after Cleansing No -Bioengineered Tissue No -Topical Lidocaine (%) -Injectable Lidocaine (%) 4 -Lidocaine (ml) -Injectable Lidocaine w/ Epi (%) 10 -Bleeding Controlled with NA -Other -Treatment Response Procedure Tolerated Well Pain Scale: 0-10 Numeric Is Patient Pain Free? Yes Wound debrided: Left groin and abdominal fold ulcer Laterality: Left Type of Debridement: Excisional debridement Anesthesia Used: 5% Lidocaine Gel Depth: in the subcutaneous layer Percentage of wound debrided: 100 Instrument Used: 7mm curette Tissue Removed: Slough and devitalized tissue Severity: Fat Layer Exposed Amount of bleeding with debridement: Mild Bleeding Controlled with: Pressure Patient tolerated procedure well Assessment/Plan Active Problems History of necrotising fasciitis (Acute) Lymphedema of both lower extremities (Acute) Type 2 diabetes mellitus (Acute) Diabetic neuropathy (Acute) Morbid obesity (Acute) Non-healing surgical wound of left groin (Acute) Non-healing surgical wound (Acute) Assessment: Nonhealing postsurgical wound left groin status post surgical excision of necrotizing fasciitis. Bilateral lower extremity edema. Morbid obesity. Type 2 diabetes mellitus Plan: The patient was seen and examined at the wound center today and was updated on the plan of care. A subcutaneous debridement was performed today. The patient tolerated the procedure well. The patients wound care will consist of: utilizing aquacell AG dressings daily and PRN. Patient also instructed to wash with chlorhexidine at least every other day. Wound cultures were reviewed and negative. Baseline bloodwork reviewed which demonstrated a slightly low pre-albumin and patient was advised to use Glucerna or high-protein with meals. Previous records were requested for continuity of care. Patient educated on the importance of diet on wound healing and instructed to increase protein and vitamin C intake. Patient verbalized understanding. Patient will follow up at wound healing center in one week or sooner if needed. Plastic surgery consultation - no surgery indicated. Did discuss with patient the importance of blood sugar control in wound healing. This note was generated with [employer] software. It may contain incorrect words, spelling, and punctuation that were not noted in checking the note before signing. Code Visit 111xxx-113xx: 08638 Jessica subq tissue 20 sq cm/< Add On Codes: [id number] Jessica subq tissue add-on
--- NOTE | 2017-11-15 11:45 | PN.PCM_ITS ---
(1) Non-healing surgical wound of left groin Status: Acute Current Visit: Yes Qualifiers: Code(s): T81.89XA - Other complications of procedures, not elsewhere classified , initial encounter (2) Diabetic neuropathy Status: Acute Current Visit: Yes Code(s): E11.40 - Type 2 diabetes mellitus with diabetic neuropathy, unspecified (3) History of necrotising fasciitis Status: Acute Current Visit: Yes Code(s): Z87.39 - Personal history of other diseases of the musculoskeletal system and connective tissue (4) Lymphedema of both lower extremities Status: Acute Current Visit: Yes Code(s): I89.0 - Lymphedema, not elsewhere classified (5) Morbid obesity Status: Acute Current Visit: Yes Code(s): E66.01 - Morbid (severe) obesity due to excess calories (6) Non-healing surgical wound Status: Acute Current Visit: Yes Code(s): T81.89XA - Other complications of procedures, not elsewhere classified, initial encounter (7) Type 2 diabetes mellitus Status: Acute Current Visit: Yes Qualifiers: Code(s): E11.9 - Type 2 diabetes mellitus without complications Type of Wound Date of Service: 11/14/17 Chief Complaint: Nonhealing wound status post surgical excision of necrotizing fasciitis left groin History of Wound: 46-year-old white male who presents to the wound healing center today with complaint of left groin ulceration status post surgical excision of necrotizing fasciitis. He is a past medical history which is significant for that of type 2 diabetes mellitus, gout, diabetic neuropathy, schizophrenia, bilateral lymphedema, and schizophrenia. The patient states that what initially started as a pimple in his left groin progressed to necrotizing fasciitis and he had to have this surgically debrided in April 2017. He was admitted to [facility] for 2 weeks and then [facility] for 6 weeks afterwards. He states that the groin ulcer which extends to his left lower abdomen has been slowly improving and he has been doing daily Aquacel AG dressings with an ABD for the drainage. He does state that he has had 3 wound vacs in the past which were unable to be utilized due to the location of his wound. He denies any foul-smelling discharge or systemic signs of infection at this time. The patient otherwise denies any fever, chills, nausea, vomiting, shortness of breath, chest pain or pressure, palpitations, orthopnea, syncope or presyncopal episodes. Progress of Wound: Wound is stable , wound bed is moist and clean and without signs of infection at this time, however, more slough this week in the left groin ulcer where patient states that he is having trouble packing the Aquasol into the tunnel. There was a bridge of skin that has epithelialized and now made into 2 separate wounds wound 1 left groin and wound to left lower abdominal fold - Physical Exam Vital Signs Temp Pulse Resp BP 98.7 F 87 18 135/75 H 11/14/17 16:13 11/14/17 16:13 11/14/17 16:13 11/14/17 16:13 General: Alert, Oriented x3, Cooperative, No apparent distress HEENT: Atraumatic Cardiovascular: Regular rate Abdomen: Obese Skin: Ulcer/ Wound - Left abdominal fold and left groin ulcer with adherent slough, wound edges are not as macerated this week as compared to last week. No signs of acute infection at this time. No purulent drainage or foul smell. Wound Measurements and Assessment WC - Nurse 1 - General Ulcer Measurement Start: 10/24/17 15:52 Freq: Status: Active Protocol: Activity Type Activity Date Activity User E-Sign Co-Sign Detail Recorded Client Recorded Date Recorded By Document 11/14/17 16:13 DL [id number] 11/14/17 16:27 DL 11/14/17 16:13 Wound Center Nurse 1 [Ulcer Assessment] #2 Left Abdominal Fold -Current Size (cm) - Length 1.5 -Current Size (cm) - Width 8 -Current Size (cm) - Depth 0.1 -Total Square Cm 12.0 -Photo Taken No -Exudate Amt Medium (34-66%) -Exudate Type Serosanguineous -Wound Margin Distinct, Outline Attached -Granulation Amt Large (67-100%) -Granulation Quality Red -Necrosis Amt Small (1-33%) -Necrotic Tissue Type Adherent Slough -Structure Exposed N/A -Texture (Inessa-wound Skin Appearance) Scarring -Moisture (Inessa-wound Skin Appearance Maceration ) -Color (Inessa-wound Skin Appearance) No Abnormality -Temperature (Inessa-wound Skin No Abnormality Appearance) (Pt Warm) -Tenderness on Palpation (Inessa-wound No Skin Appearance) -Ulcer Cleansing Rinsed/ Irrigated with Saline -Foul Odor after Cleansing No -Anesthetic Used 4% Lidocaine Solution #1- LEFT GROIN- POST OP -Current Size (cm) - Length 4.9 -Current Size (cm) - Width 18.9 -Current Size (cm) - Depth 0.1 -Total Square Cm 92.61 -Photo Taken No -Tunneling Position (O'clock) 12 -Tunneling Distance (cm) 3.3 -Exudate Amt Large (67-100%) -Exudate Type Yellow/Green -Wound Margin Distinct, Outline Attached -Granulation Amt Large (67-100%) -Granulation Quality Red -Necrosis Amt Small (1-33%) -Necrotic Tissue Type Adherent Slough -Structure Exposed N/A -Texture (Inessa-wound Skin Appearance) Localized Edema -Moisture (Inessa-wound Skin Appearance No Abnormality ) -Color (Inessa-wound Skin Appearance) No Abnormality -Temperature (Inessa-wound Skin No Abnormality Appearance) (Pt Warm) -Ulcer Cleansing Wound Cleanser -Foul Odor after Cleansing No -Anesthetic Used 4% Lidocaine Solution WC - Nurse 2 - General Ulcer CM Notes Start: 10/24/17 15:52 Freq: Status: Active Protocol: Activity Type Activity Date Activity User E-Sign Co-Sign Detail Recorded Client Recorded Date Recorded By Document 11/14/17 16:49 NELLY [id number] 11/14/17 17:01 NELLY 11/14/17 16:49 Wound Center Nurse 2 [Procedure/Treatment] #2 Left Abdominal Fold -Time 16:49 -Correct Patient Yes -Correct Side, Site, Position Yes -Correct Procedure Yes -Procedure Performed Yes -Type of Procedure Debridement -Clinical Debridement Subcutaneous -Post Debridement Size (cm) - Length 1.9 -Post Debridement Size (cm) - Width 8.0 -Post Debridement Size (cm) - Depth 0.1 -Total Square Cm 15.20 -Wound/Ulcer Outcome Not Healed -Ulcer Cleansing Rinsed/ Irrigated with Saline -Foul Odor after Cleansing No -Bioengineered Tissue No -Topical Lidocaine (%) 4 -Lidocaine (ml) 10 -Bleeding Controlled with NA -Treatment Response Procedure Tolerated Well #1- LEFT GROIN- POST OP -Time 16:50 -Correct Patient Yes -Correct Side, Site, Position Yes -Correct Procedure Yes -Procedure Performed Yes -Type of Procedure Debridement -Clinical Debridement Subcutaneous -Post Debridement Size (cm) - Length 5.0 -Post Debridement Size (cm) - Width 20.0 -Post Debridement Size (cm) - Depth 0.1 -Total Square Cm 100.00 -Wound/Ulcer Outcome Not Healed -Ulcer Cleansing Rinsed/ Irrigated with Saline -Foul Odor after Cleansing No -Bioengineered Tissue No -Injectable Lidocaine (%) 4 -Injectable Lidocaine w/ Epi (%) 10 -Bleeding Controlled with NA -Treatment Response Procedure Tolerated Well [See Physician Procedure note for Specifics] Pain Scale: 0-10 Numeric [Pain] -Is Patient Pain Free? Yes Neurological: Neuro grossly intact Psych/Mental Status: Normal Affect, Appropriate, Alert and oriented to time, place, person, mood and affect Debridement Note Post-Debridement Measurements/Treatment WC - Nurse 2 - General Ulcer CM Notes Start: 10/24/17 15:52 Freq: Status: Active Protocol: Activity Type Activity Date Activity User E-Sign Co-Sign Detail Recorded Client Recorded Date Recorded By Document 10/24/17 16:42 [id number] 10/24/17 16:43 Document 10/31/17 16:49 [id number] 10/31/17 16:52 Document 11/07/17 16:26 JS [id number] 11/07/17 16:27 Document 11/14/17 16:49 [id number] 11/14/17 17:01 10/24/17 10/31/17 11/07/17 16:42 16:49 16:26 Wound Center Nurse 2 #2 Left Abdominal Fold -Time 16:42 16:49 16:26 -Correct Patient Yes Yes Yes -Correct Side, Site, Position Yes Yes Yes -Correct Procedure Yes Yes Yes -Procedure Performed Yes Yes Yes -Type of Procedure Debridement Debridement Debridement -Clinical Debridement Subcutaneous Subcutaneous Subcutaneous -Post Debridement Size (cm) - Length 1.9 1.1 1.5 -Post Debridement Size (cm) - Width 8.2 8.0 8.6 -Post Debridement Size (cm) - Depth 0.1 0.1 0.1 -Total Square Cm 15.58 8.80 12.90 -Wound/Ulcer Outcome Not Healed Not Healed Not Healed -Ulcer Cleansing Rinsed/ Rinsed/ Rinsed/ Irrigated with Irrigated with Irrigated with Saline Saline Saline -Foul Odor after Cleansing No No No -Bioengineered Tissue No No No -Topical Lidocaine (%) 4 4 4 -Lidocaine (ml) 20 -Bleeding Controlled with Pressure Pressure NA -Other pocket 2.9cm -Treatment Response Procedure Procedure Procedure Tolerated Well Tolerated Well Tolerated Well #1- LEFT GROIN- POST OP -Time 16:43 16:50 16:26 -Correct Patient Yes Yes Yes -Correct Side, Site, Position Yes Yes Yes -Correct Procedure Yes Yes Yes -Procedure Performed Yes Yes Yes -Type of Procedure Debridement Debridement Debridement -Clinical Debridement Subcutaneous Subcutaneous Subcutaneous -Post Debridement Size (cm) - Length 4.1 3.0 3.8 -Post Debridement Size (cm) - Width 22.5 20.0 20.4 -Post Debridement Size (cm) - Depth 0.1 0.1 0.1 -Total Square Cm 92.25 60.00 77.52 -Wound/Ulcer Outcome Not Healed Not Healed Not Healed -Ulcer Cleansing Rinsed/ Rinsed/ Rinsed/ Irrigated with Irrigated with Irrigated with Saline Saline Saline -Foul Odor after Cleansing No No No -Bioengineered Tissue No No No -Topical Lidocaine (%) 4 4 4 -Injectable Lidocaine (%) -Lidocaine (ml) 10 -Injectable Lidocaine w/ Epi (%) -Bleeding Controlled with Pressure Pressure NA -Other 2.9CM POCKET -Treatment Response Procedure Procedure Procedure Tolerated Well Tolerated Well Tolerated Well Pain Scale: 0-10 Numeric Is Patient Pain Free? Yes Yes 11/14/17 16:49 Wound Center Nurse 2 #2 Left Abdominal Fold -Time 16:49 -Correct Patient Yes -Correct Side, Site, Position Yes -Correct Procedure Yes -Procedure Performed Yes -Type of Procedure Debridement -Clinical Debridement Subcutaneous -Post Debridement Size (cm) - Length 1.9 -Post Debridement Size (cm) - Width 8.0 -Post Debridement Size (cm) - Depth 0.1 -Total Square Cm 15.20 -Wound/Ulcer Outcome Not Healed -Ulcer Cleansing Rinsed/ Irrigated with Saline -Foul Odor after Cleansing No -Bioengineered Tissue No -Topical Lidocaine (%) 4 -Lidocaine (ml) 10 -Bleeding Controlled with NA -Other -Treatment Response Procedure Tolerated Well #1- LEFT GROIN- POST OP -Time 16:50 -Correct Patient Yes -Correct Side, Site, Position Yes -Correct Procedure Yes -Procedure Performed Yes -Type of Procedure Debridement -Clinical Debridement Subcutaneous -Post Debridement Size (cm) - Length 5.0 -Post Debridement Size (cm) - Width 20.0 -Post Debridement Size (cm) - Depth 0.1 -Total Square Cm 100.00 -Wound/Ulcer Outcome Not Healed -Ulcer Cleansing Rinsed/ Irrigated with Saline -Foul Odor after Cleansing No -Bioengineered Tissue No -Topical Lidocaine (%) -Injectable Lidocaine (%) 4 -Lidocaine (ml) -Injectable Lidocaine w/ Epi (%) 10 -Bleeding Controlled with NA -Other -Treatment Response Procedure Tolerated Well Pain Scale: 0-10 Numeric Is Patient Pain Free? Yes Wound debrided: Left groin and abdominal fold ulcer Laterality: Left Type of Debridement: Excisional debridement Anesthesia Used: 5% Lidocaine Gel Depth: in the subcutaneous layer Percentage of wound debrided: 100 Instrument Used: 7mm curette Tissue Removed: Slough and devitalized tissue Severity: Fat Layer Exposed Amount of bleeding with debridement: Mild Bleeding Controlled with: Pressure Patient tolerated procedure well Assessment/Plan Active Problems History of necrotising fasciitis (Acute) Lymphedema of both lower extremities (Acute) Type 2 diabetes mellitus (Acute) Diabetic neuropathy (Acute) Morbid obesity (Acute) Non-healing surgical wound of left groin (Acute) Non-healing surgical wound (Acute) Assessment: Nonhealing postsurgical wound left groin status post surgical excision of necrotizing fasciitis. Bilateral lower extremity edema. Morbid obesity. Type 2 diabetes mellitus Plan: The patient was seen and examined at the wound center today and was updated on the plan of care. A subcutaneous debridement was performed today. The patient tolerated the procedure well. The patients wound care will consist of: utilizing aquacell AG dressings daily and PRN. Patient also instructed to wash with chlorhexidine at least every other day. Wound cultures were reviewed and negative. Baseline bloodwork reviewed which demonstrated a slightly low pre- albumin and patient was advised to use Glucerna or high-protein with meals. Previous records were requested for continuity of care. Patient educated on the importance of diet on wound healing and instructed to increase protein and vitamin C intake. Patient verbalized understanding. Patient will follow up at wound healing center in one week or sooner if needed. Plastic surgery consultation - no surgery indicated. Did discuss with patient the importance of blood sugar control in wound healing. This note was generated with [employer] software. It may contain incorrect words, spelling, and punctuation that were not noted in checking the note before signing. Code Visit 111xxx-113xx: 40613 Jessica subq tissue 20 sq cm/< Add On Codes: 04108 Jessica subq tissue add-on
== END 2017-11-19 23:59 ==
LOC: WC 16:00
PROVIDERS: Family Provider Family Medicine; PCP Family Medicine; Visit Provider Nurse Practitioner Family
DX: E11.622 Type 2 diabetes mellitus with other skin ulcer (principal); E11.40 Type 2 diabetes mellitus with diabetic neuropathy, unspecified; Z87.39 Personal history of other diseases of the musculoskeletal system and connective tissue; I89.0 Lymphedema, not elsewhere classified; E66.01 Morbid (severe) obesity due to excess calories; Z68.43 Body mass index [BMI] 50.0-59.9, adult; T81.89XA Other complications of procedures, not elsewhere classified, initial encounter; L98.492 Non-pressure chronic ulcer of skin of other sites with fat layer exposed
CPT/HCPCS: 11042; 11045

== ENCOUNTER 2017-12-19 15:00 | Outpatient (RCR) | payer MEDICARE, MEDICAID, SELFPAY ==
[2017-11-20 00:48] VITALS: BP 135/75; PULSE 87; RESP 18; TEMP 37.1
[2017-11-21 15:50] VITALS: BP 128/74; PULSE 81; RESP 22; TEMP 35.5
--- NOTE | 2017-11-21 20:40 | PCM.WC.PN ---
(1) Non-healing surgical wound Status: Acute Code(s): T81.89XA - Other complications of procedures, not elsewhere classified, initial encounter (2) History of necrotising fasciitis Status: Acute Code(s): Z87.39 - Personal history of other diseases of the musculoskeletal system and connective tissue (3) Lymphedema of both lower extremities Status: Acute Code(s): I89.0 - Lymphedema, not elsewhere classified (4) Morbid obesity Status: Acute Code(s): E66.01 - Morbid (severe) obesity due to excess calories (5) Non-healing surgical wound of left groin Status: Acute Qualifiers: Code(s): T81.89XA - Other complications of procedures, not elsewhere classified, initial encounter (6) Type 2 diabetes mellitus Status: Acute Qualifiers: Code(s): E11.9 - Type 2 diabetes mellitus without complications Type of Wound Date of Service: 11/21/17 Chief Complaint: Nonhealing wound status post surgical excision of necrotizing fasciitis left groin History of Wound: 46-year-old white male who presents to the wound healing center today with complaint of left groin ulceration status post surgical excision of necrotizing fasciitis. He is a past medical history which is significant for that of type 2 diabetes mellitus, gout, diabetic neuropathy, schizophrenia, bilateral lymphedema, and schizophrenia. The patient states that what initially started as a pimple in his left groin progressed to necrotizing fasciitis and he had to have this surgically debrided in April 2017. He was admitted to [facility] for 2 weeks and then [facility] for 6 weeks afterwards. He states that the groin ulcer which extends to his left lower abdomen has been slowly improving and he has been doing daily Aquacel AG dressings with an ABD for the drainage. He does state that he has had 3 wound vacs in the past which were unable to be utilized due to the location of his wound. He denies any foul-smelling discharge or systemic signs of infection at this time. The patient otherwise denies any fever, chills, nausea, vomiting, shortness of breath, chest pain or pressure, palpitations, orthopnea, syncope or presyncopal episodes. Progress of Wound: Wound is stable , wound bed is moist and clean and without signs of infection at this time, There was a bridge of skin that has epithelialized and now made into 2 separate wounds wound 1 left groin and wound to left lower abdominal fold - Physical Exam Vital Signs Temp Pulse Resp BP 95.9 F L 81 22 H 128/74 H 11/21/17 15:50 11/21/17 15:50 11/21/17 15:50 11/21/17 15:50 General: Alert, Oriented x3, Cooperative, No apparent distress HEENT: Atraumatic Lungs: Clear to auscultation Cardiovascular: Regular rate Abdomen: Soft, Obese Extremities: Edema Skin: Ulcer/ Wound - ulcer left abdomninal fold and left groin with adherant slough present on wound edges, no drainage or pain or foul smell Neurological: Neuro grossly intact Psych/Mental Status: Normal Affect, Appropriate, Alert and oriented to time, place, person, mood and affect Debridement Note Post-Debridement Measurements/Treatment WC - Nurse 2 - General Ulcer CM Notes Start: 11/21/17 15:50 Freq: Status: Active Protocol: Activity Type Activity Date Activity User E-Sign Co-Sign Detail Recorded Client Recorded Date Recorded By Document 11/21/17 16:13 [id number] 11/21/17 16:20 11/21/17 16:13 Wound Center Nurse 2 #2 Left Abdominal Fold -Time 16:14 -Correct Patient Yes -Correct Side, Site, Position Yes -Correct Procedure Yes -Procedure Performed Yes -Type of Procedure Debridement -Clinical Debridement Subcutaneous -Post Debridement Size (cm) - Length 1.5 -Post Debridement Size (cm) - Width 7.9 -Post Debridement Size (cm) - Depth 0.1 -Total Square Cm 11.85 -Wound/Ulcer Outcome Not Healed -Ulcer Cleansing Not Cleansed -Foul Odor after Cleansing No -Bioengineered Tissue No -Bleeding Controlled with Pressure -Treatment Response Procedure Tolerated Well #1- LEFT GROIN- POST OP -Time 16:14 -Correct Patient Yes -Correct Side, Site, Position Yes -Correct Procedure Yes -Procedure Performed Yes -Type of Procedure Debridement -Clinical Debridement Subcutaneous -Post Debridement Size (cm) - Length 4.0 -Post Debridement Size (cm) - Width 19.0 -Post Debridement Size (cm) - Depth 0.1 -Total Square Cm 76.00 -Wound/Ulcer Outcome Not Healed -Ulcer Cleansing Not Cleansed -Foul Odor after Cleansing No -Bioengineered Tissue No -Bleeding Controlled with Pressure -Treatment Response Procedure Tolerated Well Pain Scale: 0-10 Numeric Is Patient Pain Free? Yes Wound debrided: Left groin and abdominal fold ulcer Laterality: Left Type of Debridement: Excisional debridement Anesthesia Used: 5% Lidocaine Gel Depth: in the subcutaneous layer Percentage of wound debrided: 100 Instrument Used: 5mm curette Tissue Removed: slough and devitalized tissue Severity: Fat Layer Exposed Amount of bleeding with debridement: Mild Bleeding Controlled with: Pressure Patient tolerated procedure well Assessment/Plan Assessment: Nonhealing postsurgical wound left groin status post surgical excision of necrotizing fasciitis. Bilateral lower extremity edema. Morbid obesity. Type 2 diabetes mellitus Plan: The patient was seen and examined at the wound center today and was updated on the plan of care. A subcutaneous debridement was performed today. The patient tolerated the procedure well. The patients wound care will consist of: utilizing aquacell AG dressings daily and PRN. Patient also instructed to wash with chlorhexidine at least every other day. Wound cultures were reviewed and negative. Baseline bloodwork reviewed which demonstrated a slightly low pre-albumin and patient was advised to use Glucerna or high-protein with meals. Previous records were requested for continuity of care. Patient educated on the importance of diet on wound healing and instructed to increase protein and vitamin C intake. Patient verbalized understanding. Patient will follow up at wound healing center in one week or sooner if needed. Plastic surgery consultation - no surgery indicated. Did discuss with patient the importance of blood sugar control in wound healing. This note was generated with [employer] dictation software. It may contain incorrect words, spelling, and punctuation that were not noted in checking the note before signing. Code Visit 111xxx-113xx: 25935 Jessica subq tissue 20 sq cm/< Add On Codes: 19112 Jessica subq tissue add-on
--- NOTE | 2017-11-26 11:43 | PN.PCM_ITS ---
(1) Non-healing surgical wound Status: Acute Code(s): T81.89XA - Other complications of procedures, not elsewhere classified, initial encounter (2) History of necrotising fasciitis Status: Acute Code(s): Z87.39 - Personal history of other diseases of the musculoskeletal system and connective tissue (3) Lymphedema of both lower extremities Status: Acute Code(s): I89.0 - Lymphedema, not elsewhere classified (4) Morbid obesity Status: Acute Code(s): E66.01 - Morbid (severe) obesity due to excess calories (5) Non-healing surgical wound of left groin Status: Acute Qualifiers: Code(s): T81.89XA - Other complications of procedures, not elsewhere classified , initial encounter (6) Type 2 diabetes mellitus Status: Acute Qualifiers: Code(s): E11.9 - Type 2 diabetes mellitus without complications Type of Wound Date of Service: 11/21/17 Chief Complaint: Nonhealing wound status post surgical excision of necrotizing fasciitis left groin History of Wound: 46-year-old white male who presents to the wound healing center today with complaint of left groin ulceration status post surgical excision of necrotizing fasciitis. He is a past medical history which is significant for that of type 2 diabetes mellitus, gout, diabetic neuropathy, schizophrenia, bilateral lymphedema, and schizophrenia. The patient states that what initially started as a pimple in his left groin progressed to necrotizing fasciitis and he had to have this surgically debrided in April 2017. He was admitted to [facility] for 2 weeks and then [facility] for 6 weeks afterwards. He states that the groin ulcer which extends to his left lower abdomen has been slowly improving and he has been doing daily Aquacel AG dressings with an ABD for the drainage. He does state that he has had 3 wound vacs in the past which were unable to be utilized due to the location of his wound. He denies any foul-smelling discharge or systemic signs of infection at this time. The patient otherwise denies any fever, chills, nausea, vomiting, shortness of breath, chest pain or pressure, palpitations, orthopnea, syncope or presyncopal episodes. Progress of Wound: Wound is stable , wound bed is moist and clean and without signs of infection at this time, There was a bridge of skin that has epithelialized and now made into 2 separate wounds wound 1 left groin and wound to left lower abdominal fold - Physical Exam Vital Signs Temp Pulse Resp BP 95.9 F L 81 22 H 128/74 H 11/21/17 15:50 11/21/17 15:50 11/21/17 15:50 11/21/17 15:50 General: Alert, Oriented x3, Cooperative, No apparent distress HEENT: Atraumatic Lungs: Clear to auscultation Cardiovascular: Regular rate Abdomen: Soft, Obese Extremities: Edema Skin: Ulcer/ Wound - ulcer left abdomninal fold and left groin with adherant slough present on wound edges, no drainage or pain or foul smell Neurological: Neuro grossly intact Psych/Mental Status: Normal Affect, Appropriate, Alert and oriented to time, place, person, mood and affect Debridement Note Post-Debridement Measurements/Treatment WC - Nurse 2 - General Ulcer CM Notes Start: 11/21/17 15:50 Freq: Status: Active Protocol: Activity Type Activity Date Activity User E-Sign Co-Sign Detail Recorded Client Recorded Date Recorded By Document 11/21/17 16:13 [id number] 11/21/17 16:20 11/21/17 16:13 Wound Center Nurse 2 #2 Left Abdominal Fold -Time 16:14 -Correct Patient Yes -Correct Side, Site, Position Yes -Correct Procedure Yes -Procedure Performed Yes -Type of Procedure Debridement -Clinical Debridement Subcutaneous -Post Debridement Size (cm) - Length 1.5 -Post Debridement Size (cm) - Width 7.9 -Post Debridement Size (cm) - Depth 0.1 -Total Square Cm 11.85 -Wound/Ulcer Outcome Not Healed -Ulcer Cleansing Not Cleansed -Foul Odor after Cleansing No -Bioengineered Tissue No -Bleeding Controlled with Pressure -Treatment Response Procedure Tolerated Well #1- LEFT GROIN- POST OP -Time 16:14 -Correct Patient Yes -Correct Side, Site, Position Yes -Correct Procedure Yes -Procedure Performed Yes -Type of Procedure Debridement -Clinical Debridement Subcutaneous -Post Debridement Size (cm) - Length 4.0 -Post Debridement Size (cm) - Width 19.0 -Post Debridement Size (cm) - Depth 0.1 -Total Square Cm 76.00 -Wound/Ulcer Outcome Not Healed -Ulcer Cleansing Not Cleansed -Foul Odor after Cleansing No -Bioengineered Tissue No -Bleeding Controlled with Pressure -Treatment Response Procedure Tolerated Well Pain Scale: 0-10 Numeric Is Patient Pain Free? Yes Wound debrided: Left groin and abdominal fold ulcer Laterality: Left Type of Debridement: Excisional debridement Anesthesia Used: 5% Lidocaine Gel Depth: in the subcutaneous layer Percentage of wound debrided: 100 Instrument Used: 5mm curette Tissue Removed: slough and devitalized tissue Severity: Fat Layer Exposed Amount of bleeding with debridement: Mild Bleeding Controlled with: Pressure Patient tolerated procedure well Assessment/Plan Assessment: Nonhealing postsurgical wound left groin status post surgical excision of necrotizing fasciitis. Bilateral lower extremity edema. Morbid obesity. Type 2 diabetes mellitus Plan: The patient was seen and examined at the wound center today and was updated on the plan of care. A subcutaneous debridement was performed today. The patient tolerated the procedure well. The patients wound care will consist of: utilizing aquacell AG dressings daily and PRN. Patient also instructed to wash with chlorhexidine at least every other day. Wound cultures were reviewed and negative. Baseline bloodwork reviewed which demonstrated a slightly low pre- albumin and patient was advised to use Glucerna or high-protein with meals. Previous records were requested for continuity of care. Patient educated on the importance of diet on wound healing and instructed to increase protein and vitamin C intake. Patient verbalized understanding. Patient will follow up at wound healing center in one week or sooner if needed. Plastic surgery consultation - no surgery indicated. Did discuss with patient the importance of blood sugar control in wound healing. This note was generated with [employer] dictation software. It may contain incorrect words, spelling, and punctuation that were not noted in checking the note before signing. Code Visit 111xxx-113xx: 97763 Jessica subq tissue 20 sq cm/< Add On Codes: [id number] Jessica subq tissue add-on
[2017-11-28 15:04] VITALS: BP 143/89; PULSE 89; RESP 18; TEMP 36.3
--- NOTE | 2017-11-28 20:10 | PCM.WC.PN ---
(1) Non-healing surgical wound Status: Acute Code(s): T81.89XA - Other complications of procedures, not elsewhere classified, initial encounter (2) History of necrotising fasciitis Status: Acute Code(s): Z87.39 - Personal history of other diseases of the musculoskeletal system and connective tissue (3) Lymphedema of both lower extremities Status: Acute Code(s): I89.0 - Lymphedema, not elsewhere classified (4) Morbid obesity Status: Acute Code(s): E66.01 - Morbid (severe) obesity due to excess calories (5) Non-healing surgical wound of left groin Status: Acute Qualifiers: Code(s): T81.89XA - Other complications of procedures, not elsewhere classified, initial encounter (6) Type 2 diabetes mellitus Status: Acute Qualifiers: Code(s): E11.9 - Type 2 diabetes mellitus without complications Type of Wound Date of Service: 11/28/17 Chief Complaint: Nonhealing wound status post surgical excision of necrotizing fasciitis left groin History of Wound: 46-year-old white male who presents to the wound healing center today with complaint of left groin ulceration status post surgical excision of necrotizing fasciitis. He is a past medical history which is significant for that of type 2 diabetes mellitus, gout, diabetic neuropathy, schizophrenia, bilateral lymphedema, and schizophrenia. The patient states that what initially started as a pimple in his left groin progressed to necrotizing fasciitis and he had to have this surgically debrided in April 2017. He was admitted to [facility] for 2 weeks and then [facility] for 6 weeks afterwards. He states that the groin ulcer which extends to his left lower abdomen has been slowly improving and he has been doing daily Aquacel AG dressings with an ABD for the drainage. He does state that he has had 3 wound vacs in the past which were unable to be utilized due to the location of his wound. He denies any foul-smelling discharge or systemic signs of infection at this time. The patient otherwise denies any fever, chills, nausea, vomiting, shortness of breath, chest pain or pressure, palpitations, orthopnea, syncope or presyncopal episodes. Progress of Wound: Wound is stable , wound bed is moist and clean and without signs of infection at this time, There was a bridge of skin that has epithelialized and now made into 2 separate wounds wound 1 left groin and wound to left lower abdominal fold - Physical Exam Vital Signs Temp Pulse Resp BP 97.4 F L 89 18 143/89 H 11/28/17 15:04 11/28/17 15:04 11/28/17 15:04 11/28/17 15:04 General: Alert, Oriented x3, Cooperative, No apparent distress HEENT: Atraumatic Cardiovascular: Regular rate Abdomen: Obese Extremities: No clubbing, No cyanosis, No edema Skin: Ulcer/ Wound - ulcer left abdominal fold and left groin with adherant slough, no drainage or foul smell Neurological: Neuro grossly intact Psych/Mental Status: Normal Affect, Appropriate, Alert and oriented to time, place, person, mood and affect Debridement Note Post-Debridement Measurements/Treatment WC - Nurse 2 - General Ulcer CM Notes Start: 11/21/17 15:50 Freq: Status: Active Protocol: Activity Type Activity Date Activity User E-Sign Co-Sign Detail Recorded Client Recorded Date Recorded By Document 11/21/17 16:13 [id number] 11/21/17 16:20 CS Document 11/28/17 16:23 [id number] 11/28/17 16:28 CS 11/21/17 11/28/17 16:13 16:23 Wound Center Nurse 2 #2 Left Abdominal Fold -Time 16:14 16:23 -Correct Patient Yes Yes -Correct Side, Site, Position Yes Yes -Correct Procedure Yes Yes -Procedure Performed Yes Yes -Type of Procedure Debridement Debridement -Clinical Debridement Subcutaneous Subcutaneous -Post Debridement Size (cm) - Length 1.5 1.6 -Post Debridement Size (cm) - Width 7.9 6.9 -Post Debridement Size (cm) - Depth 0.1 0.1 -Total Square Cm 11.85 11.04 -Wound/Ulcer Outcome Not Healed Not Healed -Ulcer Cleansing Not Cleansed Not Cleansed -Foul Odor after Cleansing No No -Bioengineered Tissue No No -Bleeding Controlled with Pressure Silver Nitrate -Treatment Response Procedure Procedure Tolerated Well Tolerated Well #1- LEFT GROIN- POST OP -Time 16:14 16:23 -Correct Patient Yes No -Correct Side, Site, Position Yes No -Correct Procedure Yes No -Procedure Performed Yes No -Type of Procedure Debridement Debridement -Clinical Debridement Subcutaneous Subcutaneous -Post Debridement Size (cm) - Length 4.0 19.0 -Post Debridement Size (cm) - Width 19.0 3.4 -Post Debridement Size (cm) - Depth 0.1 0.1 -Total Square Cm 76.00 64.60 -Wound/Ulcer Outcome Not Healed Not Healed -Ulcer Cleansing Not Cleansed Not Cleansed -Foul Odor after Cleansing No No -Bioengineered Tissue No No -Bleeding Controlled with Pressure Silver Nitrate -Treatment Response Procedure Procedure Tolerated Well Tolerated Well Pain Scale: 0-10 Numeric Is Patient Pain Free? Yes Yes Wound debrided: left groin and abdominal fold ulcer Type of Debridement: Excisional debridement Anesthesia Used: 5% Lidocaine Gel Depth: in the subcutaneous layer Percentage of wound debrided: 100 Instrument Used: 7mm curette Tissue Removed: slough and devitalized tissue Severity: Fat Layer Exposed Amount of bleeding with debridement: Mild Bleeding Controlled with: Pressure Patient tolerated procedure well Assessment/Plan Assessment: Nonhealing postsurgical wound left groin status post surgical excision of necrotizing fasciitis. Bilateral lower extremity edema. Morbid obesity. Type 2 diabetes mellitus Plan: The patient was seen and examined at the wound center today and was updated on the plan of care. A subcutaneous debridement was performed today. The patient tolerated the procedure well. The patients wound care will consist of: utilizing aquacell AG dressings daily and PRN. Patient also instructed to wash with chlorhexidine at least every other day. Wound cultures were reviewed and negative. Baseline bloodwork reviewed which demonstrated a slightly low pre-albumin and patient was advised to use Glucerna or high-protein with meals. Previous records were requested for continuity of care. Patient educated on the importance of diet on wound healing and instructed to increase protein and vitamin C intake. Patient verbalized understanding. Patient will follow up at wound healing center in one week or sooner if needed. Plastic surgery consultation - no surgery indicated. Did discuss with patient the importance of blood sugar control in wound healing. This note was generated with [employer] dictation software. It may contain incorrect words, spelling, and punctuation that were not noted in checking the note before signing. Code Visit 111xxx-113xx: 30623 Jessica subq tissue 20 sq cm/< Add On Codes: [id number] Jessica subq tissue add-on
[2017-12-05 14:15] VITALS: BP 137/74; PULSE 88; RESP 20; TEMP 37
--- NOTE | 2017-12-05 18:47 | PCM.WC.PN ---
(1) Non-healing surgical wound Status: Acute Current Visit: Yes Code(s): T81.89XA - Other complications of procedures, not elsewhere classified, initial encounter (2) History of necrotising fasciitis Status: Acute Current Visit: Yes Code(s): Z87.39 - Personal history of other diseases of the musculoskeletal system and connective tissue (3) Lymphedema of both lower extremities Status: Acute Current Visit: Yes Code(s): I89.0 - Lymphedema, not elsewhere classified (4) Morbid obesity Status: Acute Current Visit: Yes Code(s): E66.01 - Morbid (severe) obesity due to excess calories (5) Non-healing surgical wound of left groin Status: Acute Current Visit: Yes Qualifiers: Code(s): T81.89XA - Other complications of procedures, not elsewhere classified, initial encounter (6) Type 2 diabetes mellitus Status: Acute Current Visit: Yes Qualifiers: Code(s): E11.9 - Type 2 diabetes mellitus without complications Type of Wound Date of Service: 12/05/17 Chief Complaint: Nonhealing wound status post surgical excision of necrotizing fasciitis left groin History of Wound: 46-year-old white male who presents to the wound healing center today with complaint of left groin ulceration status post surgical excision of necrotizing fasciitis. He is a past medical history which is significant for that of type 2 diabetes mellitus, gout, diabetic neuropathy, schizophrenia, bilateral lymphedema, and schizophrenia. The patient states that what initially started as a pimple in his left groin progressed to necrotizing fasciitis and he had to have this surgically debrided in April 2017. [facility] and [facility] afterwards. He states that the groin ulcer which extends to his left lower abdomen has been slowly improving and he has been doing daily Aquacel AG dressings with an ABD for the drainage. He does state that he has had 3 wound vacs in the past which were unable to be utilized due to the location of his wound. He denies any foul-smelling discharge or systemic signs of infection at this time. The patient otherwise denies any fever, chills, nausea, vomiting, shortness of breath, chest pain or pressure, palpitations, orthopnea, syncope or presyncopal episodes. Progress of Wound: Wound is stable, slow improvement , wound bed is moist and clean and without signs of infection at this time, There was a bridge of skin that has epithelialized and now made into 2 separate wounds wound 1 left groin and wound to left lower abdominal fold - Physical Exam Vital Signs Temp Pulse Resp BP 98.6 F 88 20 H 137/74 H 12/05/17 14:15 12/05/17 14:15 12/05/17 14:15 12/05/17 14:15 General: Alert, Oriented x3, Cooperative, No apparent distress HEENT: Atraumatic Cardiovascular: Regular rate Abdomen: Obese Extremities: No clubbing, No cyanosis, Edema - Generalized bilateral lower extremity edema Skin: Ulcer/ Wound - Ulcer present left abdominal fold and left groin with adherent slough, areas of skin hypertrophy present on wound edges as well, no foul smell or signs of infection at this time Wound Measurements and Assessment WC - Nurse 1 - General Ulcer Measurement Start: 11/21/17 15:50 Freq: Status: Active Protocol: Activity Type Activity Date Activity User E-Sign Co-Sign Detail Recorded Client Recorded Date Recorded By Document 12/05/17 14:15 DL [id number] 12/05/17 14:30 DL 12/05/17 14:15 Wound Center Nurse 1 [Ulcer Assessment] #2 Left Abdominal Fold -Current Size (cm) - Length 1 -Current Size (cm) - Width 1.7 -Current Size (cm) - Depth 0.2 -Total Square Cm 1.7 -Photo Taken Yes -Exudate Amt Large (67-100%) -Exudate Type Yellow/Green -Wound Margin Distinct, Outline Attached -Granulation Amt Large (67-100%) -Granulation Quality Red -Necrosis Amt Small (1-33%) -Necrotic Tissue Type Adherent Slough -Structure Exposed N/A -Texture (Inessa-wound Skin Appearance) Scarring -Moisture (Inessa-wound Skin Appearance No Abnormality ) -Color (Inessa-wound Skin Appearance) No Abnormality -Temperature (Inessa-wound Skin No Abnormality Appearance) (Pt Warm) -Ulcer Cleansing Wound Cleanser -Foul Odor after Cleansing No -Anesthetic Used 4% Lidocaine Solution #1- LEFT GROIN- POST OP -Current Size (cm) - Length 2 -Current Size (cm) - Width 17 -Current Size (cm) - Depth 0.1 -Total Square Cm 34 -Photo Taken No -Tunneling Yes -Tunneling Position (O'clock) 12 -Tunneling Distance (cm) 3.3 -Exudate Amt Large (67-100%) -Exudate Type Yellow/Green -Wound Margin Distinct, Outline Attached -Granulation Amt Large (67-100%) -Granulation Quality Red -Necrosis Amt Small (1-33%) -Necrotic Tissue Type Adherent Slough -Structure Exposed N/A -Texture (Inessa-wound Skin Appearance) Scarring -Moisture (Inessa-wound Skin Appearance No Abnormality ) -Color (Ienssa-wound Skin Appearance) No Abnormality -Temperature (Inessa-wound Skin No Abnormality Appearance) (Pt Warm) -Ulcer Cleansing Wound Cleanser -Foul Odor after Cleansing No -Anesthetic Used 4% Lidocaine Solution WC - Nurse 2 - General Ulcer CM Notes Start: 11/21/17 15:50 Freq: Status: Active Protocol: Activity Type Activity Date Activity User E-Sign Co-Sign Detail Recorded Client Recorded Date Recorded By Document 12/05/17 15:16 [email or web address] 12/05/17 15:18 12/05/17 15:16 Wound Center Nurse 2 [Procedure/Treatment] #2 Left Abdominal Fold -Time 15:16 -Correct Patient Yes -Correct Side, Site, Position Yes -Correct Procedure Yes -Procedure Performed Yes -Type of Procedure Debridement -Clinical Debridement Subcutaneous -Post Debridement Size (cm) - Length 1.5 -Post Debridement Size (cm) - Width 6.8 -Post Debridement Size (cm) - Depth 0.1 -Total Square Cm 10.20 -Wound/Ulcer Outcome Not Healed -Ulcer Cleansing Not Cleansed -Foul Odor after Cleansing No -Bioengineered Tissue No -Bleeding Controlled with Pressure -Treatment Response Procedure Tolerated Well #1- LEFT GROIN- POST OP -Time 15:17 -Correct Patient Yes -Correct Side, Site, Position Yes -Correct Procedure Yes -Procedure Performed Yes -Type of Procedure Debridement -Clinical Debridement Subcutaneous -Post Debridement Size (cm) - Length 3.5 -Post Debridement Size (cm) - Width 18.5 -Post Debridement Size (cm) - Depth 0.1 -Total Square Cm 64.75 -Wound/Ulcer Outcome Not Healed -Ulcer Cleansing Not Cleansed -Foul Odor after Cleansing No -Bioengineered Tissue No -Bleeding Controlled with Silver Nitrate -Treatment Response Procedure Tolerated Well [See Physician Procedure note for Specifics] Pain Scale: 0-10 Numeric [Pain] -Is Patient Pain Free? Yes Neurological: Neuro grossly intact Psych/Mental Status: Normal Affect, Appropriate, Alert and oriented to time, place, person, mood and affect Debridement Note Post-Debridement Measurements/Treatment WC - Nurse 2 - General Ulcer CM Notes Start: 11/21/17 15:50 Freq: Status: Active Protocol: Activity Type Activity Date Activity User E-Sign Co-Sign Detail Recorded Client Recorded Date Recorded By Document 11/21/17 16:13 [id number] 11/21/17 16:20 CS Document 11/28/17 16:23 [id number] 11/28/17 16:28 CS Document 12/05/17 15:16 [id number] 12/05/17 15:18 CS 11/21/17 11/28/17 12/05/17 16:13 16:23 15:16 Wound Center Nurse 2 #2 Left Abdominal Fold -Time 16:14 16:23 15:16 -Correct Patient Yes Yes Yes -Correct Side, Site, Position Yes Yes Yes -Correct Procedure Yes Yes Yes -Procedure Performed Yes Yes Yes -Type of Procedure Debridement Debridement Debridement -Clinical Debridement Subcutaneous Subcutaneous Subcutaneous -Post Debridement Size (cm) - Length 1.5 1.6 1.5 -Post Debridement Size (cm) - Width 7.9 6.9 6.8 -Post Debridement Size (cm) - Depth 0.1 0.1 0.1 -Total Square Cm 11.85 11.04 10.20 -Wound/Ulcer Outcome Not Healed Not Healed Not Healed -Ulcer Cleansing Not Cleansed Not Cleansed Not Cleansed -Foul Odor after Cleansing No No No -Bioengineered Tissue No No No -Bleeding Controlled with Pressure Silver Nitrate Pressure -Treatment Response Procedure Procedure Procedure Tolerated Well Tolerated Well Tolerated Well #1- LEFT GROIN- POST OP -Time 16:14 16:23 15:17 -Correct Patient Yes No Yes -Correct Side, Site, Position Yes No Yes -Correct Procedure Yes No Yes -Procedure Performed Yes No Yes -Type of Procedure Debridement Debridement Debridement -Clinical Debridement Subcutaneous Subcutaneous Subcutaneous -Post Debridement Size (cm) - Length 4.0 19.0 3.5 -Post Debridement Size (cm) - Width 19.0 3.4 18.5 -Post Debridement Size (cm) - Depth 0.1 0.1 0.1 -Total Square Cm 76.00 64.60 64.75 -Wound/Ulcer Outcome Not Healed Not Healed Not Healed -Ulcer Cleansing Not Cleansed Not Cleansed Not Cleansed -Foul Odor after Cleansing No No No -Bioengineered Tissue No No No -Bleeding Controlled with Pressure Silver Nitrate Silver Nitrate -Treatment Response Procedure Procedure Procedure Tolerated Well Tolerated Well Tolerated Well Pain Scale: 0-10 Numeric Is Patient Pain Free? Yes Yes Yes Wound debrided: Left abdominal fold ulcer Laterality: Left Type of Debridement: Excisional debridement Anesthesia Used: 5% Lidocaine Gel Depth: in the subcutaneous layer Percentage of wound debrided: 100 Instrument Used: 5mm curette Tissue Removed: Slough and devitalized tissue Severity: Fat Layer Exposed Amount of bleeding with debridement: Mild Bleeding Controlled with: Pressure, Compression and gauze, Silver Nitrate Patient tolerated procedure well - Additional Wound Wound debrided: Left groin ulcer Laterality: Left Type of Debridement: Excisional debridement Anesthesia Used: 5% Lidocaine Gel Depth: in the subcutaneous layer Percentage of wound debrided: 100 Instrument Used: 5mm curette Tissue Removed: Slough and devitalized tissue Severity: Fat Layer Exposed Amount of bleeding with debridement: Mild Bleeding Controlled with: Pressure, Compression and gauze, Silver Nitrate Patient tolerated procedure: Patient tolerated procedure well Assessment/Plan Active Problems History of necrotising fasciitis (Acute) Lymphedema of both lower extremities (Acute) Type 2 diabetes mellitus (Acute) Morbid obesity (Acute) Non-healing surgical wound of left groin (Acute) Non-healing surgical wound (Acute) Assessment: Nonhealing postsurgical wound left groin status post surgical excision of necrotizing fasciitis. Bilateral lower extremity edema. Morbid obesity. Type 2 diabetes mellitus Plan: The patient was seen and examined at the wound center today and was updated on the plan of care. A subcutaneous debridement was performed today. The patient tolerated the procedure well. The patients wound care will consist of: utilizing aquacell AG dressings daily and PRN. Patient also instructed to wash with chlorhexidine at least every other day. Wound cultures were reviewed and negative. Baseline bloodwork reviewed which demonstrated a slightly low pre-albumin and patient was advised to use Glucerna or high-protein with meals. Previous records were requested for continuity of care. Patient educated on the importance of diet on wound healing and instructed to increase protein and vitamin C intake. Patient verbalized understanding. Patient will follow up at wound healing center in one week or sooner if needed. Plastic surgery consultation - no surgery indicated. Did discuss with patient the importance of blood sugar control in wound healing. This note was generated with [employer] dictation software. It may contain incorrect words, spelling, and punctuation that were not noted in checking the note before signing. Code Visit [id number]: [id number] Jessica subq tissue 20 sq cm/< Add On Codes: [id number] Jessica subq tissue add-on
[2017-12-12 16:17] VITALS: BP 138/86; PULSE 97; RESP 20; TEMP 36.5
--- NOTE | 2017-12-12 16:22 | PCM.WC.PN ---
(1) Non-healing surgical wound Status: Acute Current Visit: Yes Code(s): T81.89XA - Other complications of procedures, not elsewhere classified, initial encounter (2) History of necrotising fasciitis Status: Acute Current Visit: Yes Code(s): Z87.39 - Personal history of other diseases of the musculoskeletal system and connective tissue (3) Lymphedema of both lower extremities Status: Acute Current Visit: Yes Code(s): I89.0 - Lymphedema, not elsewhere classified (4) Morbid obesity Status: Acute Current Visit: Yes Code(s): E66.01 - Morbid (severe) obesity due to excess calories (5) Non-healing surgical wound of left groin Status: Acute Current Visit: Yes Qualifiers: Code(s): T81.89XA - Other complications of procedures, not elsewhere classified, initial encounter (6) Type 2 diabetes mellitus Status: Acute Current Visit: Yes Qualifiers: Code(s): E11.9 - Type 2 diabetes mellitus without complications Type of Wound Date of Service: 12/12/17 Chief Complaint: Nonhealing wound status post surgical excision of necrotizing fasciitis left groin History of Wound: 46-year-old white male who presents to the wound healing center today with complaint of left groin ulceration status post surgical excision of necrotizing fasciitis. He is a past medical history which is significant for that of type 2 diabetes mellitus, gout, diabetic neuropathy, schizophrenia, bilateral lymphedema, and schizophrenia. The patient states that what initially started as a pimple in his left groin progressed to necrotizing fasciitis and he had to have this surgically debrided in April 2017. He was admitted to [facility] 2 weeks and then [facility] for 6 weeks afterwards. He states that the groin ulcer which extends to his left lower abdomen has been slowly improving and he has been doing daily Aquacel AG dressings with an ABD for the drainage. He does state that he has had 3 wound vacs in the past which were unable to be utilized due to the location of his wound. He denies any foul-smelling discharge or systemic signs of infection at this time. The patient otherwise denies any fever, chills, nausea, vomiting, shortness of breath, chest pain or pressure, palpitations, orthopnea, syncope or presyncopal episodes. Progress of Wound: Wound is stable, slight worsening of size due to patient only using the aquacell ag for 12 hours then removing and packing with kerlix (not instructed to do so) , wound bed is moist and clean and without signs of infection at this time, There was a bridge of skin that has epithelialized and now made into 2 separate wounds wound 1 left groin and wound to left lower abdominal fold. - Physical Exam Vital Signs Temp Pulse Resp BP 97.7 F L 97 20 H 138/86 H 12/12/17 16:17 12/12/17 16:17 12/12/17 16:17 12/12/17 16:17 General: Alert, Oriented x3, Cooperative, No apparent distress HEENT: Atraumatic Cardiovascular: Regular rate Abdomen: Obese Skin: Ulcer/ Wound - ulcers left abdominal fold and left groin with adherant slough, no signs of infection, pt reports minimal clear drainage, no pain Wound Measurements and Assessment WC - Nurse 1 - General Ulcer Measurement Start: 11/21/17 15:50 Freq: Status: Active Protocol: Activity Type Activity Date Activity User E-Sign Co-Sign Detail Recorded Client Recorded Date Recorded By Document 12/12/17 16:17 NELLY [id number] 12/12/17 16:49 NELLY 12/12/17 16:17 Wound Center Nurse 1 [Ulcer Assessment] #2 Left Abdominal Fold -Combined with other wound No -Current Size (cm) - Length 7.4 -Current Size (cm) - Width 1.4 -Current Size (cm) - Depth 0.2 -Total Square Cm 10.36 -Date of Last Picture (Recall this 12/12/17 field) -Photo Taken Yes -Epithelialization Small 1-33% -Tunneling No -Undermining/Tunneling No -Circular Undermining No -Classification - Thickness Full Thickness without Exposed Support Structure -Exudate Amt Large (67-100%) -Exudate Type Yellow/Green -Wound Margin Distinct, Outline Attached -Granulation Amt Large (67-100%) -Granulation Quality Pale Red -Slough/Fibrin Yes -Necrosis Amt None Present (0 %) -Necrotic Tissue Type Adherent Slough -Structure Exposed Muscle -Texture (Inessa-wound Skin Appearance) No Abnormality -Moisture (Inessa-wound Skin Appearance No Abnormality ) -Color (Inessa-wound Skin Appearance) No Abnormality -Temperature (Inessa-wound Skin No Abnormality Appearance) (Pt Warm) -Tenderness on Palpation (Inessa-wound No Skin Appearance) -Ulcer Cleansing Rinsed/ Irrigated with Saline -Foul Odor after Cleansing No -Anesthetic Used 4% Lidocaine Solution #1- LEFT GROIN- POST OP -Combined with other wound No -Current Size (cm) - Length 19.5 -Current Size (cm) - Width 4.0 -Total Square Cm 78.00 -Date of Last Picture (Recall this 12/12/17 field) -Photo Taken Yes -Epithelialization Small 1-33% -Tunneling Yes -Tunneling Position (O'clock) 9 -Tunneling Distance (cm) 3.0 -Undermining/Tunneling No -Circular Undermining No -Classification - Thickness Full Thickness without Exposed Support Structure -Exudate Amt Large (67-100%) -Exudate Type Yellow/Green -Wound Margin Distinct, Outline Attached -Granulation Amt Large (67-100%) -Granulation Quality Pale Red -Slough/Fibrin Yes -Necrosis Amt None Present (0 %) -Necrotic Tissue Type Adherent Slough -Structure Exposed Muscle -Texture (Inessa-wound Skin Appearance) No Abnormality -Moisture (Inessa-wound Skin Appearance No Abnormality ) -Color (Inessa-wound Skin Appearance) No Abnormality -Temperature (Inessa-wound Skin No Abnormality Appearance) (Pt Warm) -Tenderness on Palpation (Inessa-wound No Skin Appearance) -Ulcer Cleansing Rinsed/ Irrigated with Saline -Foul Odor after Cleansing No -Anesthetic Used 4% Lidocaine Solution WC - Nurse 2 - General Ulcer CM Notes Start: 11/21/17 15:50 Freq: Status: Active Protocol: Activity Type Activity Date Activity User E-Sign Co-Sign Detail Recorded Client Recorded Date Recorded By Document 12/12/17 17:04 [id number] 12/12/17 17:08 12/12/17 17:04 Wound Center Nurse 2 [Procedure/Treatment] #2 Left Abdominal Fold -Time 17:05 -Correct Patient Yes -Correct Side, Site, Position Yes -Correct Procedure Yes -Procedure Performed Yes -Type of Procedure Debridement -Clinical Debridement Subcutaneous -Post Debridement Size (cm) - Length 1.3 -Post Debridement Size (cm) - Width 7 -Post Debridement Size (cm) - Depth 0.1 -Total Square Cm 9.1 -Wound/Ulcer Outcome Not Healed -Ulcer Cleansing Not Cleansed -Foul Odor after Cleansing No -Bioengineered Tissue No -Bleeding Controlled with Pressure -Treatment Response Procedure Tolerated Well #1- LEFT GROIN- POST OP -Time 17:06 -Correct Patient Yes -Correct Side, Site, Position Yes -Correct Procedure Yes -Procedure Performed Yes -Type of Procedure Debridement -Clinical Debridement Subcutaneous -Post Debridement Size (cm) - Length 4.6 -Post Debridement Size (cm) - Width 19.1 -Post Debridement Size (cm) - Depth 0.1 -Total Square Cm 87.86 -Wound/Ulcer Outcome Not Healed -Ulcer Cleansing Not Cleansed -Bioengineered Tissue No -Bleeding Controlled with Pressure -Treatment Response Procedure Tolerated Well [See Physician Procedure note for Specifics] Pain Scale: 0-10 Numeric [Pain] -Is Patient Pain Free? Yes Neurological: Neuro grossly intact Psych/Mental Status: Normal Affect, Appropriate, Alert and oriented to time, place, person, mood and affect Debridement Note Post-Debridement Measurements/Treatment WC - Nurse 2 - General Ulcer CM Notes Start: 11/21/17 15:50 Freq: Status: Active Protocol: Activity Type Activity Date Activity User E-Sign Co-Sign Detail Recorded Client Recorded Date Recorded By Document 11/21/17 16:13 [id number] 11/21/17 16:20 CS Document 11/28/17 16:23 CS [id number] 11/28/17 16:28 CS Document 12/05/17 15:16 CS [id number] 12/05/17 15:18 CS Document 12/12/17 17:04 CS [id number] 12/12/17 17:08 CS 11/21/17 11/28/17 12/05/17 16:13 16:23 15:16 Wound Center Nurse 2 #2 Left Abdominal Fold -Time 16:14 16:23 15:16 -Correct Patient Yes Yes Yes -Correct Side, Site, Position Yes Yes Yes -Correct Procedure Yes Yes Yes -Procedure Performed Yes Yes Yes -Type of Procedure Debridement Debridement Debridement -Clinical Debridement Subcutaneous Subcutaneous Subcutaneous -Post Debridement Size (cm) - Length 1.5 1.6 1.5 -Post Debridement Size (cm) - Width 7.9 6.9 6.8 -Post Debridement Size (cm) - Depth 0.1 0.1 0.1 -Total Square Cm 11.85 11.04 10.20 -Wound/Ulcer Outcome Not Healed Not Healed Not Healed -Ulcer Cleansing Not Cleansed Not Cleansed Not Cleansed -Foul Odor after Cleansing No No No -Bioengineered Tissue No No No -Bleeding Controlled with Pressure Silver Nitrate Pressure -Treatment Response Procedure Procedure Procedure Tolerated Well Tolerated Well Tolerated Well #1- LEFT GROIN- POST OP -Time 16:14 16:23 15:17 -Correct Patient Yes No Yes -Correct Side, Site, Position Yes No Yes -Correct Procedure Yes No Yes -Procedure Performed Yes No Yes -Type of Procedure Debridement Debridement Debridement -Clinical Debridement Subcutaneous Subcutaneous Subcutaneous -Post Debridement Size (cm) - Length 4.0 19.0 3.5 -Post Debridement Size (cm) - Width 19.0 3.4 18.5 -Post Debridement Size (cm) - Depth 0.1 0.1 0.1 -Total Square Cm 76.00 64.60 64.75 -Wound/Ulcer Outcome Not Healed Not Healed Not Healed -Ulcer Cleansing Not Cleansed Not Cleansed Not Cleansed -Foul Odor after Cleansing No No No -Bioengineered Tissue No No No -Bleeding Controlled with Pressure Silver Nitrate Silver Nitrate -Treatment Response Procedure Procedure Procedure Tolerated Well Tolerated Well Tolerated Well Pain Scale: 0-10 Numeric Is Patient Pain Free? Yes Yes Yes 18 17:04 Wound Center Nurse 2 #2 Left Abdominal Fold -Time 17:05 -Correct Patient Yes -Correct Side, Site, Position Yes -Correct Procedure Yes -Procedure Performed Yes -Type of Procedure Debridement -Clinical Debridement Subcutaneous -Post Debridement Size (cm) - Length 1.3 -Post Debridement Size (cm) - Width 7 -Post Debridement Size (cm) - Depth 0.1 -Total Square Cm 9.1 -Wound/Ulcer Outcome Not Healed -Ulcer Cleansing Not Cleansed -Foul Odor after Cleansing No -Bioengineered Tissue No -Bleeding Controlled with Pressure -Treatment Response Procedure Tolerated Well #1- LEFT GROIN- POST OP -Time 17:06 -Correct Patient Yes -Correct Side, Site, Position Yes -Correct Procedure Yes -Procedure Performed Yes -Type of Procedure Debridement -Clinical Debridement Subcutaneous -Post Debridement Size (cm) - Length 4.6 -Post Debridement Size (cm) - Width 19.1 -Post Debridement Size (cm) - Depth 0.1 -Total Square Cm 87.86 -Wound/Ulcer Outcome Not Healed -Ulcer Cleansing Not Cleansed -Foul Odor after Cleansing -Bioengineered Tissue No -Bleeding Controlled with Pressure -Treatment Response Procedure Tolerated Well Pain Scale: 0-10 Numeric Is Patient Pain Free? Yes Wound debrided: left abdominal fold and left groin ulcers Laterality: Left Type of Debridement: Excisional debridement Anesthesia Used: 5% Lidocaine Gel Depth: in the subcutaneous layer Percentage of wound debrided: 100 Instrument Used: 7mm curette Tissue Removed: slough and devitalized tissue Severity: Fat Layer Exposed Amount of bleeding with debridement: Mild Bleeding Controlled with: Pressure Patient tolerated procedure well Assessment/Plan Active Problems History of necrotising fasciitis (Acute) Lymphedema of both lower extremities (Acute) Type 2 diabetes mellitus (Acute) Morbid obesity (Acute) Non-healing surgical wound of left groin (Acute) Non-healing surgical wound (Acute) Assessment: Nonhealing postsurgical wound left groin status post surgical excision of necrotizing fasciitis. Bilateral lower extremity edema. Morbid obesity. Type 2 diabetes mellitus Plan: The patient was seen and examined at the wound center today and was updated on the plan of care. A subcutaneous debridement was performed today. The patient tolerated the procedure well. The patients wound care will consist of: utilizing aquacell AG dressings daily and PRN. Instructed to leave in for 24 hours and not to alternate with kerlix as he has been doing. Patient also instructed to wash with chlorhexidine at least every other day. Due to delayed healing, may consider wound vac again to left groin ulcer and may trial purrapply AM to left abdominal fold ulcer. Wound cultures were reviewed and negative. Baseline bloodwork reviewed which demonstrated a slightly low pre-albumin and patient was advised to use Glucerna or high-protein with meals. Previous records were requested for continuity of care. Patient educated on the importance of diet on wound healing and instructed to increase protein and vitamin C intake. Patient verbalized understanding. Patient will follow up at wound healing center in one week or sooner if needed. Plastic surgery consultation - no surgery indicated. Did discuss with patient the importance of blood sugar control in wound healing. This note was generated with [employer] software. It may contain incorrect words, spelling, and punctuation that were not noted in checking the note before signing. Code Visit 111xxx-113xx: 75043 Jessica subq tissue 20 sq cm/< Add On Codes: [id number] Jessica subq tissue add-on
--- NOTE | 2017-12-19 15:07 | PCM.WC.PN ---
(1) Non-healing surgical wound Status: Acute Current Visit: Yes Code(s): T81.89XA - Other complications of procedures, not elsewhere classified, initial encounter (2) Skin ulcer of abdominal wall with fat layer exposed Status: Acute Current Visit: Yes Code(s): L98.492 - Non-pressure chronic ulcer of skin of other sites with fat layer exposed Comment: left abdominal fold (3) History of necrotising fasciitis Status: Acute Current Visit: Yes Code(s): Z87.39 - Personal history of other diseases of the musculoskeletal system and connective tissue (4) Lymphedema of both lower extremities Status: Acute Current Visit: Yes Code(s): I89.0 - Lymphedema, not elsewhere classified (5) Morbid obesity Status: Acute Current Visit: Yes Code(s): E66.01 - Morbid (severe) obesity due to excess calories (6) Non-healing surgical wound of left groin Status: Acute Current Visit: Yes Qualifiers: Code(s): T81.89XA - Other complications of procedures, not elsewhere classified, initial encounter (7) Type 2 diabetes mellitus Status: Acute Current Visit: Yes Qualifiers: Code(s): E11.9 - Type 2 diabetes mellitus without complications Type of Wound Date of Service: 12/19/17 Chief Complaint: Nonhealing wound status post surgical excision of necrotizing fasciitis left groin History of Wound: 46-year-old white male who presents to the wound healing center today with complaint of left groin ulceration status post surgical excision of necrotizing fasciitis. He is a past medical history which is significant for that of type 2 diabetes mellitus, gout, diabetic neuropathy, schizophrenia, bilateral lymphedema, and schizophrenia. The patient states that what initially started as a pimple in his left groin progressed to necrotizing fasciitis and he had to have this surgically debrided in April 2017. He was admitted to [facility] for 2 weeks and then [facility] for 6 weeks afterwards. He states that the groin ulcer which extends to his left lower abdomen has been slowly improving and he has been doing daily Aquacel AG dressings with an ABD for the drainage. He does state that he has had 3 wound vacs in the past which were unable to be utilized due to the location of his wound. He denies any foul-smelling discharge or systemic signs of infection at this time. The patient otherwise denies any fever, chills, nausea, vomiting, shortness of breath, chest pain or pressure, palpitations, orthopnea, syncope or presyncopal episodes. Progress of Wound: Wound is stable, slight worsening of size due to patient only using the aquacell ag for 12 hours then removing and packing with kerlix (not instructed to do so) , wound bed is moist and clean and without signs of infection at this time, There was a bridge of skin that has epithelialized and now made into 2 separate wounds wound 1 left groin and wound to left lower abdominal fold. - Physical Exam Vital Signs Temp Pulse Resp BP 97.7 F L 97 20 H 138/86 H 12/12/17 16:17 12/12/17 16:17 12/12/17 16:17 12/12/17 16:17 General: Alert, Oriented x3, Cooperative, No apparent distress HEENT: Atraumatic Cardiovascular: Regular rate Abdomen: Obese Extremities: No edema Skin: Ulcer/ Wound - left groin and abdominal fold ulcer with adherant slough present, no signs of acute infection Neurological: Neuro grossly intact Psych/Mental Status: Normal Affect, Appropriate, Alert and oriented to time, place, person, mood and affect Debridement Note Post-Debridement Measurements/Treatment WC - Nurse 2 - General Ulcer CM Notes Start: 11/21/17 15:50 Freq: Status: Active Protocol: Activity Type Activity Date Activity User E-Sign Co-Sign Detail Recorded Client Recorded Date Recorded By Document 11/21/17 16:13 [id number] 11/21/17 16:20 CS Document 11/28/17 16:23 [id number] 11/28/17 16:28 CS Document 12/05/17 15:16 [id number] 12/05/17 15:18 CS Document 12/12/17 17:04 [id number] 12/12/17 17:08 CS 11/21/17 11/28/17 12/05/17 16:13 16:23 15:16 Wound Center Nurse 2 #2 Left Abdominal Fold -Time 16:14 16:23 15:16 -Correct Patient Yes Yes Yes -Correct Side, Site, Position Yes Yes Yes -Correct Procedure Yes Yes Yes -Procedure Performed Yes Yes Yes -Type of Procedure Debridement Debridement Debridement -Clinical Debridement Subcutaneous Subcutaneous Subcutaneous -Post Debridement Size (cm) - Length 1.5 1.6 1.5 -Post Debridement Size (cm) - Width 7.9 6.9 6.8 -Post Debridement Size (cm) - Depth 0.1 0.1 0.1 -Total Square Cm 11.85 11.04 10.20 -Wound/Ulcer Outcome Not Healed Not Healed Not Healed -Ulcer Cleansing Not Cleansed Not Cleansed Not Cleansed -Foul Odor after Cleansing No No No -Bioengineered Tissue No No No -Bleeding Controlled with Pressure Silver Nitrate Pressure -Treatment Response Procedure Procedure Procedure Tolerated Well Tolerated Well Tolerated Well #1- LEFT GROIN- POST OP -Time 16:14 16:23 15:17 -Correct Patient Yes No Yes -Correct Side, Site, Position Yes No Yes -Correct Procedure Yes No Yes -Procedure Performed Yes No Yes -Type of Procedure Debridement Debridement Debridement -Clinical Debridement Subcutaneous Subcutaneous Subcutaneous -Post Debridement Size (cm) - Length 4.0 19.0 3.5 -Post Debridement Size (cm) - Width 19.0 3.4 18.5 -Post Debridement Size (cm) - Depth 0.1 0.1 0.1 -Total Square Cm 76.00 64.60 64.75 -Wound/Ulcer Outcome Not Healed Not Healed Not Healed -Ulcer Cleansing Not Cleansed Not Cleansed Not Cleansed -Foul Odor after Cleansing No No No -Bioengineered Tissue No No No -Bleeding Controlled with Pressure Silver Nitrate Silver Nitrate -Treatment Response Procedure Procedure Procedure Tolerated Well Tolerated Well Tolerated Well Pain Scale: 0-10 Numeric Is Patient Pain Free? Yes Yes Yes 12/12/17 17:04 Wound Center Nurse 2 #2 Left Abdominal Fold -Time 17:05 -Correct Patient Yes -Correct Side, Site, Position Yes -Correct Procedure Yes -Procedure Performed Yes -Type of Procedure Debridement -Clinical Debridement Subcutaneous -Post Debridement Size (cm) - Length 1.3 -Post Debridement Size (cm) - Width 7 -Post Debridement Size (cm) - Depth 0.1 -Total Square Cm 9.1 -Wound/Ulcer Outcome Not Healed -Ulcer Cleansing Not Cleansed -Foul Odor after Cleansing No -Bioengineered Tissue No -Bleeding Controlled with Pressure -Treatment Response Procedure Tolerated Well #1- LEFT GROIN- POST OP -Time 17:06 -Correct Patient Yes -Correct Side, Site, Position Yes -Correct Procedure Yes -Procedure Performed Yes -Type of Procedure Debridement -Clinical Debridement Subcutaneous -Post Debridement Size (cm) - Length 4.6 -Post Debridement Size (cm) - Width 19.1 -Post Debridement Size (cm) - Depth 0.1 -Total Square Cm 87.86 -Wound/Ulcer Outcome Not Healed -Ulcer Cleansing Not Cleansed -Foul Odor after Cleansing -Bioengineered Tissue No -Bleeding Controlled with Pressure -Treatment Response Procedure Tolerated Well Pain Scale: 0-10 Numeric Is Patient Pain Free? Yes Wound debrided: left groin and abdominal fold ulcers Laterality: Left Type of Debridement: Excisional debridement Anesthesia Used: 5% Lidocaine Gel Depth: in the subcutaneous layer Percentage of wound debrided: 100 Instrument Used: 7mm curette Tissue Removed: slough and devitalized tissue Severity: Fat Layer Exposed Amount of bleeding with debridement: Mild Bleeding Controlled with: Pressure Patient tolerated procedure well Assessment/Plan Active Problems History of necrotising fasciitis (Acute) Lymphedema of both lower extremities (Acute) Type 2 diabetes mellitus (Acute) Morbid obesity (Acute) Non-healing surgical wound of left groin (Acute) Non-healing surgical wound (Acute) Skin ulcer of abdominal wall with fat layer exposed (Acute) left abdominal fold Assessment: Nonhealing postsurgical wound left groin status post surgical excision of necrotizing fasciitis. Bilateral lower extremity edema. Morbid obesity. Type 2 diabetes mellitus Plan: The patient was seen and examined at the wound center today and was updated on the plan of care. A subcutaneous debridement was performed today. The patient tolerated the procedure well. The patients wound care will consist of: utilizing aquacell extra dressings daily and PRN. Patient also instructed to wash with chlorhexidine at least every other day. Due to delayed healing, would like to consider wound vac again to left groin ulcer (however, pt refuses) and may trial purapply AM to left abdominal fold ulcer. Wound cultures were reviewed and negative. Baseline bloodwork reviewed which demonstrated a slightly low pre-albumin and patient was advised to use Glucerna or high-protein with meals. Previous records were requested for continuity of care. Patient educated on the importance of diet on wound healing and instructed to increase protein and vitamin C intake. Patient verbalized understanding. Patient will follow up at wound healing center in one week or sooner if needed. Plastic surgery consultation - no surgery indicated. Did discuss with patient the importance of blood sugar control in wound healing. This note was generated with [employer] software. It may contain incorrect words, spelling, and punctuation that were not noted in checking the note before signing. Code Visit 111xxx-113xx: 55425 Jessica subq tissue 20 sq cm/< Add On Codes: [id number] Jessica subq tissue add-on
[2017-12-19 15:24] VITALS: BP 142/70; PULSE 81; RESP 18; TEMP 35.9
== END 2017-12-20 23:59 ==
LOC: WC 15:00
PROVIDERS: Family Provider Family Medicine; PCP Family Medicine; Visit Provider Nurse Practitioner Family
DX: M72.6 Necrotizing fasciitis (principal); E11.40 Type 2 diabetes mellitus with diabetic neuropathy, unspecified; E66.01 Morbid (severe) obesity due to excess calories; Z68.43 Body mass index [BMI] 50.0-59.9, adult; Z71.3 Dietary counseling and surveillance; I89.0 Lymphedema, not elsewhere classified; R60.0 Localized edema; T81.89XA Other complications of procedures, not elsewhere classified, initial encounter
CPT/HCPCS: 11042; 11045

== ENCOUNTER 2018-01-16 16:15 | Outpatient (RCR) | payer MEDICARE, MEDICAID, SELFPAY ==
[2017-12-21 00:57] VITALS: BP 142/70; PULSE 81; RESP 18; TEMP 35.9
[2017-12-26 15:52] VITALS: BP 134/79; PULSE 77; RESP 18; TEMP 35.6
--- NOTE | 2017-12-26 19:31 | PCM.WC.PN ---
(1) Skin ulcer of abdominal wall with fat layer exposed Status: Acute Code(s): L98.492 - Non-pressure chronic ulcer of skin of other sites with fat layer exposed Comment: left abdominal fold (2) Non-healing surgical wound of left groin Status: Acute Qualifiers: Code(s): T81.89XA - Other complications of procedures, not elsewhere classified, initial encounter (3) History of necrotising fasciitis Status: Acute Code(s): Z87.39 - Personal history of other diseases of the musculoskeletal system and connective tissue (4) Lymphedema of both lower extremities Status: Acute Code(s): I89.0 - Lymphedema, not elsewhere classified (5) Morbid obesity Status: Acute Code(s): E66.01 - Morbid (severe) obesity due to excess calories (6) Type 2 diabetes mellitus Status: Acute Qualifiers: Code(s): E11.9 - Type 2 diabetes mellitus without complications Type of Wound Date of Service: 12/26/17 Chief Complaint: Nonhealing wound status post surgical excision of necrotizing fasciitis left groin History of Wound: 46-year-old white male who presents to the wound healing center today with complaint of left groin ulceration status post surgical excision of necrotizing fasciitis. He is a past medical history which is significant for that of type 2 diabetes mellitus, gout, diabetic neuropathy, schizophrenia, bilateral lymphedema, and schizophrenia. The patient states that what initially started as a pimple in his left groin progressed to necrotizing fasciitis and he had to have this surgically debrided in April 2017. He was admitted to the [facility] weeks and then [facility] for 6 weeks afterwards. He states that the groin ulcer which extends to his left lower abdomen has been slowly improving and he has been doing daily Aquacel AG dressings with an ABD for the drainage. He does state that he has had 3 wound vacs in the past which were unable to be utilized due to the location of his wound. He denies any foul-smelling discharge or systemic signs of infection at this time. The patient otherwise denies any fever, chills, nausea, vomiting, shortness of breath, chest pain or pressure, palpitations, orthopnea, syncope or presyncopal episodes. Progress of Wound: Wound is stable , wound bed is moist and clean and without signs of infection at this time, There was a bridge of skin that has epithelialized and now made into 2 separate wounds wound 1 left groin and wound to left lower abdominal fold. - Physical Exam Vital Signs Temp Pulse Resp BP 96.0 F L 77 18 134/79 H 12/26/17 15:52 12/26/17 15:52 12/26/17 15:52 12/26/17 15:52 General: Alert, Oriented x3, Cooperative, No apparent distress HEENT: Atraumatic Cardiovascular: Regular rate Abdomen: Obese Skin: Ulcer/ Wound - ulcer present left abdominal fold and left groin with adherant slough, no purulent drainage, no signs of infection at this time. Neurological: Neuro grossly intact Psych/Mental Status: Normal Affect, Appropriate, Alert and oriented to time, place, person, mood and affect Debridement Note Post-Debridement Measurements/Treatment WC - Nurse 2 - General Ulcer CM Notes Start: 12/26/17 15:52 Freq: Status: Active Protocol: Activity Type Activity Date Activity User E-Sign Co-Sign Detail Recorded Client Recorded Date Recorded By Document 12/26/17 17:28 [id number] 12/26/17 17:33 12/26/17 17:28 Wound Center Nurse 2 #2 Left Abdominal Fold -Time 17:28 -Correct Patient Yes -Correct Side, Site, Position Yes -Correct Procedure Yes -Procedure Performed Yes -Type of Procedure Debridement -Clinical Debridement Subcutaneous -Post Debridement Size (cm) - Length 2.5 -Post Debridement Size (cm) - Width 7.0 -Post Debridement Size (cm) - Depth 0.1 -Total Square Cm 17.50 -Wound/Ulcer Outcome Not Healed -Ulcer Cleansing Rinsed/ Irrigated with Saline -Foul Odor after Cleansing No -Bioengineered Tissue Yes -Type of bioengineered Tissue [id number] -Expiration Date 04/04/20 -Product Lot Number [id number] -Percent Used 100 -Saline Lot Number [id number] -Topical Lidocaine (%) 5 -Bleeding Controlled with Pressure -Treatment Response Procedure Tolerated Well #1- LEFT GROIN- POST OP -Time 17:29 -Correct Patient Yes -Correct Side, Site, Position Yes -Correct Procedure Yes -Procedure Performed Yes -Type of Procedure Debridement -Clinical Debridement Subcutaneous -Post Debridement Size (cm) - Length 4.9 -Post Debridement Size (cm) - Width 18.5 -Post Debridement Size (cm) - Depth 0.1 -Total Square Cm 90.65 -Wound/Ulcer Outcome Not Healed -Ulcer Cleansing Rinsed/ Irrigated with Saline -Foul Odor after Cleansing No -Bioengineered Tissue No -Topical Lidocaine (%) 5 -Bleeding Controlled with Pressure -Other pocket 3.2cm -Treatment Response Procedure Tolerated Well Pain Scale: 0-10 Numeric Is Patient Pain Free? Yes Wound debrided: Left abdominal fold ulcer Laterality: Left Type of Debridement: Excisional debridement Anesthesia Used: 5% Lidocaine Gel Depth: in the subcutaneous layer Percentage of wound debrided: 100 Instrument Used: 7mm curette Tissue Removed: slough and devitalized tissue Severity: Fat Layer Exposed Amount of bleeding with debridement: Mild Bleeding Controlled with: Pressure Patient tolerated procedure well purrapply AM applied - Additional Wound Wound debrided: left groin ulcer Laterality: Left Type of Debridement: Excisional debridement Anesthesia Used: 5% Lidocaine Gel Depth: in the subcutaneous layer Percentage of wound debrided: 100 Instrument Used: 7mm curette Tissue Removed: slough and devitalized tissue Severity: Fat Layer Exposed Amount of bleeding with debridement: Mild Bleeding Controlled with: Pressure Patient tolerated procedure: Patient tolerated procedure well Assessment/Plan Assessment: Nonhealing postsurgical wound left groin status post surgical excision of necrotizing fasciitis. Bilateral lower extremity edema. Morbid obesity. Type 2 diabetes mellitus Plan: The patient was seen and examined at the wound center today and was updated on the plan of care. A subcutaneous debridement was performed today. The patient tolerated the procedure well. The patients wound care will consist of: utilizing aquacell extra dressings daily and PRN. Purapply AM #1 was applied to left abdominal fold ulcer, wound veil then applied and secured with steris, 100% used with 0% wasted. May use aquacell extra overtop if drainage occurs. Patient also instructed to wash with chlorhexidine at least every other day to left groin ulcer. Due to delayed healing, would like to consider wound vac again to left groin ulcer (however, pt refuses). Wound cultures were reviewed and negative. Baseline bloodwork reviewed which demonstrated a slightly low pre-albumin and patient was advised to use Glucerna or high-protein with meals. Previous records were requested for continuity of care. Patient educated on the importance of diet on wound healing and instructed to increase protein and vitamin C intake. Patient verbalized understanding. Patient will follow up at wound healing center in one week or sooner if needed. Plastic surgery consultation - no surgery indicated. Did discuss with patient the importance of blood sugar control in wound healing. This note was generated with [employer] dictation software. It may contain incorrect words, spelling, and punctuation that were not noted in checking the note before signing. Code Visit 111xxx-113xx: [id number] Jessica subq tissue 20 sq cm/< 150xxx-152xx: [id number] Skin sub graft trnk/arm/leg
--- NOTE | 2017-12-31 11:36 | PN.PCM_ITS ---
(1) Skin ulcer of abdominal wall with fat layer exposed Status: Acute Code(s): L98.492 - Non-pressure chronic ulcer of skin of other sites with fat layer exposed Comment: left abdominal fold (2) Non-healing surgical wound of left groin Status: Acute Qualifiers: Code(s): T81.89XA - Other complications of procedures, not elsewhere classified , initial encounter (3) History of necrotising fasciitis Status: Acute Code(s): Z87.39 - Personal history of other diseases of the musculoskeletal system and connective tissue (4) Lymphedema of both lower extremities Status: Acute Code(s): I89.0 - Lymphedema, not elsewhere classified (5) Morbid obesity Status: Acute Code(s): E66.01 - Morbid (severe) obesity due to excess calories (6) Type 2 diabetes mellitus Status: Acute Qualifiers: Code(s): E11.9 - Type 2 diabetes mellitus without complications Type of Wound Date of Service: 12/26/17 Chief Complaint: Nonhealing wound status post surgical excision of necrotizing fasciitis left groin History of Wound: 46-year-old white male who presents to the wound healing center today with complaint of left groin ulceration status post surgical excision of necrotizing fasciitis. He is a past medical history which is significant for that of type 2 diabetes mellitus, gout, diabetic neuropathy, schizophrenia, bilateral lymphedema, and schizophrenia. The patient states that what initially started as a pimple in his left groin progressed to necrotizing fasciitis and he had to have this surgically debrided in April 2017. He was admitted to [facility] for [facility] weeks and then [facility] for 6 weeks afterwards. He states that the groin ulcer which extends to his left lower abdomen has been slowly improving and he has been doing daily Aquacel AG dressings with an ABD for the drainage. He does state that he has had 3 wound vacs in the past which were unable to be utilized due to the location of his wound. He denies any foul-smelling discharge or systemic signs of infection at this time. The patient otherwise denies any fever, chills, nausea, vomiting, shortness of breath, chest pain or pressure, palpitations, orthopnea, syncope or presyncopal episodes. Progress of Wound: Wound is stable , wound bed is moist and clean and without signs of infection at this time, There was a bridge of skin that has epithelialized and now made into 2 separate wounds wound 1 left groin and wound to left lower abdominal fold. - Physical Exam Vital Signs Temp Pulse Resp BP 96.0 F L 77 18 134/79 H 12/26/17 15:52 12/26/17 15:52 12/26/17 15:52 12/26/17 15:52 General: Alert, Oriented x3, Cooperative, No apparent distress HEENT: Atraumatic Cardiovascular: Regular rate Abdomen: Obese Skin: Ulcer/ Wound - ulcer present left abdominal fold and left groin with adherant slough, no purulent drainage, no signs of infection at this time. Neurological: Neuro grossly intact Psych/Mental Status: Normal Affect, Appropriate, Alert and oriented to time, place, person, mood and affect Debridement Note Post-Debridement Measurements/Treatment WC - Nurse 2 - General Ulcer CM Notes Start: 12/26/17 15:52 Freq: Status: Active Protocol: Activity Type Activity Date Activity User E-Sign Co-Sign Detail Recorded Client Recorded Date Recorded By Document 12/26/17 17:28 [id number] 12/26/17 17:33 12/26/17 17:28 Wound Center Nurse 2 #2 Left Abdominal Fold -Time 17:28 -Correct Patient Yes -Correct Side, Site, Position Yes -Correct Procedure Yes -Procedure Performed Yes -Type of Procedure Debridement -Clinical Debridement Subcutaneous -Post Debridement Size (cm) - Length 2.5 -Post Debridement Size (cm) - Width 7.0 -Post Debridement Size (cm) - Depth 0.1 -Total Square Cm 17.50 -Wound/Ulcer Outcome Not Healed -Ulcer Cleansing Rinsed/ Irrigated with Saline -Foul Odor after Cleansing No -Bioengineered Tissue Yes -Type of bioengineered Tissue [id number] -Expiration Date 04/04/20 -Product Lot Number [id number] -Percent Used 100 -Saline Lot Number [id number] -Topical Lidocaine (%) 5 -Bleeding Controlled with Pressure -Treatment Response Procedure Tolerated Well #1- LEFT GROIN- POST OP -Time 17:29 -Correct Patient Yes -Correct Side, Site, Position Yes -Correct Procedure Yes -Procedure Performed Yes -Type of Procedure Debridement -Clinical Debridement Subcutaneous -Post Debridement Size (cm) - Length 4.9 -Post Debridement Size (cm) - Width 18.5 -Post Debridement Size (cm) - Depth 0.1 -Total Square Cm 90.65 -Wound/Ulcer Outcome Not Healed -Ulcer Cleansing Rinsed/ Irrigated with Saline -Foul Odor after Cleansing No -Bioengineered Tissue No -Topical Lidocaine (%) 5 -Bleeding Controlled with Pressure -Other pocket 3.2cm -Treatment Response Procedure Tolerated Well Pain Scale: 0-10 Numeric Is Patient Pain Free? Yes Wound debrided: Left abdominal fold ulcer Laterality: Left Type of Debridement: Excisional debridement Anesthesia Used: 5% Lidocaine Gel Depth: in the subcutaneous layer Percentage of wound debrided: 100 Instrument Used: 7mm curette Tissue Removed: slough and devitalized tissue Severity: Fat Layer Exposed Amount of bleeding with debridement: Mild Bleeding Controlled with: Pressure Patient tolerated procedure well purrapply AM applied - Additional Wound Wound debrided: left groin ulcer Laterality: Left Type of Debridement: Excisional debridement Anesthesia Used: 5% Lidocaine Gel Depth: in the subcutaneous layer Percentage of wound debrided: 100 Instrument Used: 7mm curette Tissue Removed: slough and devitalized tissue Severity: Fat Layer Exposed Amount of bleeding with debridement: Mild Bleeding Controlled with: Pressure Patient tolerated procedure: Patient tolerated procedure well Assessment/Plan Assessment: Nonhealing postsurgical wound left groin status post surgical excision of necrotizing fasciitis. Bilateral lower extremity edema. Morbid obesity. Type 2 diabetes mellitus Plan: The patient was seen and examined at the wound center today and was updated on the plan of care. A subcutaneous debridement was performed today. The patient tolerated the procedure well. The patients wound care will consist of: utilizing aquacell extra dressings daily and PRN. Purapply AM #1 was applied to left abdominal fold ulcer, wound veil then applied and secured with steris, 100% used with 0% wasted. May use aquacell extra overtop if drainage occurs. Patient also instructed to wash with chlorhexidine at least every other day to left groin ulcer. Due to delayed healing, would like to consider wound vac again to left groin ulcer (however, pt refuses). Wound cultures were reviewed and negative. Baseline bloodwork reviewed which demonstrated a slightly low pre-albumin and patient was advised to use Glucerna or high- protein with meals. Previous records were requested for continuity of care. Patient educated on the importance of diet on wound healing and instructed to increase protein and vitamin C intake. Patient verbalized understanding. Patient will follow up at wound healing center in one week or sooner if needed. Plastic surgery consultation - no surgery indicated. Did discuss with patient the importance of blood sugar control in wound healing. This note was generated with [employer] dictation software. It may contain incorrect words, spelling, and punctuation that were not noted in checking the note before signing. Code Visit 111xxx-113xx: 15073 Jessica subq tissue 20 sq cm/< 150xxx-152xx: [id number] Skin sub graft trnk/arm/leg
[2018-01-02 15:52] VITALS: BP 135/88; PULSE 881; RESP 20; TEMP 36.2
--- NOTE | 2018-01-02 17:25 | PCM.WC.PN ---
(1) Skin ulcer of abdominal wall with fat layer exposed Status: Acute Current Visit: Yes Code(s): L98.492 - Non-pressure chronic ulcer of skin of other sites with fat layer exposed Comment: left abdominal fold (2) Non-healing surgical wound of left groin Status: Acute Current Visit: Yes Qualifiers: Code(s): T81.89XA - Other complications of procedures, not elsewhere classified, initial encounter (3) History of necrotising fasciitis Status: Acute Current Visit: Yes Code(s): Z87.39 - Personal history of other diseases of the musculoskeletal system and connective tissue (4) Lymphedema of both lower extremities Status: Acute Current Visit: No Code(s): I89.0 - Lymphedema, not elsewhere classified (5) Morbid obesity Status: Acute Current Visit: No Code(s): E66.01 - Morbid (severe) obesity due to excess calories (6) Type 2 diabetes mellitus Status: Acute Current Visit: No Qualifiers: Code(s): E11.9 - Type 2 diabetes mellitus without complications Type of Wound Date of Service: 01/02/18 Chief Complaint: Nonhealing wound status post surgical excision of necrotizing fasciitis left groin History of Wound: 46-year-old white male who presents to the wound healing center today with complaint of left groin ulceration status post surgical excision of necrotizing fasciitis. He is a past medical history which is significant for that of type 2 diabetes mellitus, gout, diabetic neuropathy, schizophrenia, bilateral lymphedema, and schizophrenia. The patient states that what initially started as a pimple in his left groin progressed to necrotizing fasciitis and he had to have this surgically debrided in April 2017. He was admitted to [facility] for 2 weeks and then [facility] for 6 weeks afterwards. He states that the groin ulcer which extends to his left lower abdomen has been slowly improving and he has been doing daily Aquacel AG dressings with an ABD for the drainage. He does state that he has had 3 wound vacs in the past which were unable to be utilized due to the location of his wound. He denies any foul-smelling discharge or systemic signs of infection at this time. The patient otherwise denies any fever, chills, nausea, vomiting, shortness of breath, chest pain or pressure, palpitations, orthopnea, syncope or presyncopal episodes. Progress of Wound: Wound is stable , wound bed is moist and clean and without signs of infection at this time, There was a bridge of skin that has epithelialized and now made into 2 separate wounds wound 1 left groin and wound to left lower abdominal fold. - Physical Exam Vital Signs Temp Pulse Resp BP 97.1 F L 881 H 20 H 135/88 H 01/02/18 15:52 01/02/18 15:52 01/02/18 15:52 01/02/18 15:52 General: Alert, Oriented x3, Cooperative, No apparent distress HEENT: Atraumatic Oral: Moist Mucosa Lungs: Clear to auscultation, Normal air movement Cardiovascular: Regular rate, Regular Rhythm, Normal S1, Normal S2 Abdomen: Obese Extremities: No clubbing, No cyanosis, No edema Skin: Ulcer/ Wound - ulcer present left groin and abdominal fold with slough, no purulent drainage, moderate serous drainage left groin, no signs of systemic or local infection Wound Measurements and Assessment WC - Nurse 1 - General Ulcer Measurement Start: 12/26/17 15:52 Freq: Status: Active Protocol: Activity Type Activity Date Activity User E-Sign Co-Sign Detail Recorded Client Recorded Date Recorded By Document 01/02/18 15:52 NELLY [id number] 01/02/18 16:00 NELLY 01/02/18 15:52 Wound Center Nurse 1 [Ulcer Assessment] #2 Left Abdominal Fold -Combined with other wound No -Current Size (cm) - Length 1 -Current Size (cm) - Width 6.6 -Current Size (cm) - Depth 0.6 -Total Square Cm 6.6 -Photo Taken No -Exudate Amt Large (67-100%) -Exudate Type Serosanguineous -Wound Margin Distinct, Outline Attached -Granulation Amt Large (67-100%) -Granulation Quality Red -Necrosis Amt Small (1-33%) -Necrotic Tissue Type Adherent Slough -Structure Exposed N/A -Texture (Inessa-wound Skin Appearance) No Abnormality -Moisture (Inessa-wound Skin Appearance No Abnormality ) -Color (Inessa-wound Skin Appearance) No Abnormality -Temperature (Inessa-wound Skin No Abnormality Appearance) (Pt Warm) -Tenderness on Palpation (Inessa-wound No Skin Appearance) -Ulcer Cleansing Wound Cleanser -Foul Odor after Cleansing No -Anesthetic Used 5% Lidocaine Gel #1- LEFT GROIN- POST OP -Current Size (cm) - Length 2 -Current Size (cm) - Width 18.5 -Current Size (cm) - Depth 1.4 -Total Square Cm 37.0 -Photo Taken No -Exudate Amt Large (67-100%) -Exudate Type Serosanguineous -Wound Margin Distinct, Outline Attached -Granulation Amt Large (67-100%) -Granulation Quality Red -Necrosis Amt Small (1-33%) -Necrotic Tissue Type Adherent Slough -Structure Exposed N/A -Texture (Inessa-wound Skin Appearance) No Abnormality -Moisture (Inessa-wound Skin Appearance No Abnormality ) -Color (Inessa-wound Skin Appearance) No Abnormality -Temperature (Inessa-wound Skin No Abnormality Appearance) (Pt Warm) -Ulcer Cleansing Wound Cleanser -Foul Odor after Cleansing No -Anesthetic Used 5% Lidocaine Gel WC - Nurse 2 - General Ulcer CM Notes Start: 12/26/17 15:52 Freq: Status: Active Protocol: Activity Type Activity Date Activity User E-Sign Co-Sign Detail Recorded Client Recorded Date Recorded By Document 01/02/18 16:29 [id number] 01/02/18 16:30 01/02/18 16:29 Wound Center Nurse 2 [Procedure/Treatment] #2 Left Abdominal Fold -Time 16:29 -Correct Patient Yes -Correct Side, Site, Position Yes -Correct Procedure Yes -Procedure Performed Yes -Type of Procedure Debridement -Clinical Debridement Subcutaneous -Post Debridement Size (cm) - Length 1.6 -Post Debridement Size (cm) - Width 6.4 -Post Debridement Size (cm) - Depth 0.1 -Total Square Cm 10.24 -Wound/Ulcer Outcome Not Healed -Ulcer Cleansing Not Cleansed -Foul Odor after Cleansing No -Bioengineered Tissue Yes -Type of bioengineered Tissue [id number] -Expiration Date 04/09/20 -Product Lot Number [id number] -Percent Used 100 -Bleeding Controlled with Pressure -Treatment Response Procedure Tolerated Well #1- LEFT GROIN- POST OP -Time 16:30 -Correct Patient Yes -Correct Side, Site, Position Yes -Correct Procedure Yes -Procedure Performed Yes -Type of Procedure Debridement -Clinical Debridement Subcutaneous -Post Debridement Size (cm) - Length 4.1 -Post Debridement Size (cm) - Width 19.7 -Post Debridement Size (cm) - Depth 0.1 -Total Square Cm 80.77 -Wound/Ulcer Outcome Not Healed -Ulcer Cleansing Not Cleansed -Foul Odor after Cleansing No -Bioengineered Tissue No -Bleeding Controlled with NA -Treatment Response Procedure Tolerated Well [See Physician Procedure note for Specifics] Pain Scale: 0-10 Numeric [Pain] -Is Patient Pain Free? Yes Neurological: Neuro grossly intact Psych/Mental Status: Normal Affect, Appropriate, Alert and oriented to time, place, person, mood and affect Debridement Note Post-Debridement Measurements/Treatment WC - Nurse 2 - General Ulcer CM Notes Start: 12/26/17 15:52 Freq: Status: Active Protocol: Activity Type Activity Date Activity User E-Sign Co-Sign Detail Recorded Client Recorded Date Recorded By Document 12/26/17 17:28 TM [id number] 12/26/17 17:33 TM Document 01/02/18 16:29 [id number] 01/02/18 16:30 12/26/17 01/02/18 17:28 16:29 Wound Center Nurse 2 #2 Left Abdominal Fold -Time 17:28 16:29 -Correct Patient Yes Yes -Correct Side, Site, Position Yes Yes -Correct Procedure Yes Yes -Procedure Performed Yes Yes -Type of Procedure Debridement Debridement -Clinical Debridement Subcutaneous Subcutaneous -Post Debridement Size (cm) - Length 2.5 1.6 -Post Debridement Size (cm) - Width 7.0 6.4 -Post Debridement Size (cm) - Depth 0.1 0.1 -Total Square Cm 17.50 10.24 -Wound/Ulcer Outcome Not Healed Not Healed -Ulcer Cleansing Rinsed/ Not Cleansed Irrigated with Saline -Foul Odor after Cleansing No No -Bioengineered Tissue Yes Yes -Type of bioengineered Tissue [id number] -Expiration Date 04/04/20 04/09/20 -Product Lot Number [id number] -Percent Used 100 100 -Saline Lot Number [id number] -Topical Lidocaine (%) 5 -Bleeding Controlled with Pressure Pressure -Treatment Response Procedure Procedure Tolerated Well Tolerated Well #1- LEFT GROIN- POST OP -Time 17:29 16:30 -Correct Patient Yes Yes -Correct Side, Site, Position Yes Yes -Correct Procedure Yes Yes -Procedure Performed Yes Yes -Type of Procedure Debridement Debridement -Clinical Debridement Subcutaneous Subcutaneous -Post Debridement Size (cm) - Length 4.9 4.1 -Post Debridement Size (cm) - Width 18.5 19.7 -Post Debridement Size (cm) - Depth 0.1 0.1 -Total Square Cm 90.65 80.77 -Wound/Ulcer Outcome Not Healed Not Healed -Ulcer Cleansing Rinsed/ Not Cleansed Irrigated with Saline -Foul Odor after Cleansing No No -Bioengineered Tissue No No -Topical Lidocaine (%) 5 -Bleeding Controlled with Pressure NA -Other pocket 3.2cm -Treatment Response Procedure Procedure Tolerated Well Tolerated Well Pain Scale: 0-10 Numeric Is Patient Pain Free? Yes Yes Wound debrided: Left abdominal fold ulcer Laterality: Left Type of Debridement: Excisional debridement Anesthesia Used: 5% Lidocaine Gel Depth: in the subcutaneous layer Percentage of wound debrided: 100 Instrument Used: 7mm curette Tissue Removed: slough and devitalized tissue Severity: Fat Layer Exposed Amount of bleeding with debridement: Mild Bleeding Controlled with: Pressure Patient tolerated procedure well purrapply am applied - Additional Wound Wound debrided: left groin ulcer Laterality: Left Type of Debridement: Excisional debridement Anesthesia Used: 5% Lidocaine Gel Depth: in the subcutaneous layer Percentage of wound debrided: 100 Instrument Used: 7mm curette Tissue Removed: slough and devitalized tissue Severity: Fat Layer Exposed Amount of bleeding with debridement: Mild Bleeding Controlled with: Pressure Patient tolerated procedure: Patient tolerated procedure well Assessment/Plan Active Problems History of necrotising fasciitis (Acute) Non-healing surgical wound of left groin (Acute) Skin ulcer of abdominal wall with fat layer exposed (Acute) left abdominal fold Assessment: Nonhealing postsurgical wound left groin status post surgical excision of necrotizing fasciitis. Bilateral lower extremity edema. Morbid obesity. Type 2 diabetes mellitus Plan: The patient was seen and examined at the wound center today and was updated on the plan of care. A subcutaneous debridement was performed today. The patient tolerated the procedure well. The patients wound care will consist of: utilizing aquacell extra dressings daily and PRN. Purapply AM #2 was applied to left abdominal fold ulcer, wound veil then applied and secured with steris, 100% used with 0% wasted. May use aquacell extra overtop if drainage occurs. Patient also instructed to wash with chlorhexidine at least every other day to left groin ulcer. Due to delayed healing and moderate drainage, would like to consider wound vac again to left groin ulcer. Wound cultures were reviewed and negative. Baseline bloodwork reviewed which demonstrated a slightly low pre-albumin and patient was advised to use Glucerna or high-protein with meals. Previous records were requested for continuity of care. Patient educated on the importance of diet on wound healing and instructed to increase protein and vitamin C intake. Patient verbalized understanding. Patient will follow up at wound healing center in one week or sooner if needed. Plastic surgery consultation - no surgery indicated. Did discuss with patient the importance of blood sugar control in wound healing. This note was generated with [employer] dictation software. It may contain incorrect words, spelling, and punctuation that were not noted in checking the note before signing. Code Visit 111xxx-113xx: 26326 Jessica subq tissue 20 sq cm/< 150xxx-152xx: [id number] Skin sub graft trnk/arm/leg Add On Codes: [id number] Jessica subq tissue add-on
--- NOTE | 2018-01-02 17:29 | PN.PCM_ITS ---
(1) Skin ulcer of abdominal wall with fat layer exposed Status: Acute Current Visit: Yes Code(s): L98.492 - Non-pressure chronic ulcer of skin of other sites with fat layer exposed Comment: left abdominal fold (2) Non-healing surgical wound of left groin Status: Acute Current Visit: Yes Qualifiers: Code(s): T81.89XA - Other complications of procedures, not elsewhere classified , initial encounter (3) History of necrotising fasciitis Status: Acute Current Visit: Yes Code(s): Z87.39 - Personal history of other diseases of the musculoskeletal system and connective tissue (4) Lymphedema of both lower extremities Status: Acute Current Visit: No Code(s): I89.0 - Lymphedema, not elsewhere classified (5) Morbid obesity Status: Acute Current Visit: No Code(s): E66.01 - Morbid (severe) obesity due to excess calories (6) Type 2 diabetes mellitus Status: Acute Current Visit: No Qualifiers: Code(s): E11.9 - Type 2 diabetes mellitus without complications Type of Wound Date of Service: 01/02/18 Chief Complaint: Nonhealing wound status post surgical excision of necrotizing fasciitis left groin History of Wound: 46-year-old white male who presents to the wound healing center today with complaint of left groin ulceration status post surgical excision of necrotizing fasciitis. He is a past medical history which is significant for that of type 2 diabetes mellitus, gout, diabetic neuropathy, schizophrenia, bilateral lymphedema, and schizophrenia. The patient states that what initially started as a pimple in his left groin progressed to necrotizing fasciitis and he had to have this surgically debrided in April 2017. He was admitted to [facility] for 2 weeks and then [facility] for 6 weeks afterwards. He states that the groin ulcer which extends to his left lower abdomen has been slowly improving and he has been doing daily Aquacel AG dressings with an ABD for the drainage. He does state that he has had 3 wound vacs in the past which were unable to be utilized due to the location of his wound. He denies any foul-smelling discharge or systemic signs of infection at this time. The patient otherwise denies any fever, chills, nausea, vomiting, shortness of breath, chest pain or pressure, palpitations, orthopnea, syncope or presyncopal episodes. Progress of Wound: Wound is stable , wound bed is moist and clean and without signs of infection at this time, There was a bridge of skin that has epithelialized and now made into 2 separate wounds wound 1 left groin and wound to left lower abdominal fold. - Physical Exam Vital Signs Temp Pulse Resp BP 97.1 F L 881 H 20 H 135/88 H 01/02/18 15:52 01/02/18 15:52 01/02/18 15:52 01/02/18 15:52 General: Alert, Oriented x3, Cooperative, No apparent distress HEENT: Atraumatic Oral: Moist Mucosa Lungs: Clear to auscultation, Normal air movement Cardiovascular: Regular rate, Regular Rhythm, Normal S1, Normal S2 Abdomen: Obese Extremities: No clubbing, No cyanosis, No edema Skin: Ulcer/ Wound - ulcer present left groin and abdominal fold with slough, no purulent drainage, moderate serous drainage left groin, no signs of systemic or local infection Wound Measurements and Assessment WC - Nurse 1 - General Ulcer Measurement Start: 12/26/17 15:52 Freq: Status: Active Protocol: Activity Type Activity Date Activity User E-Sign Co-Sign Detail Recorded Client Recorded Date Recorded By Document 01/02/18 15:52 NELLY [id number] 01/02/18 16:00 NELLY 01/02/18 15:52 Wound Center Nurse 1 [Ulcer Assessment] #2 Left Abdominal Fold -Combined with other wound No -Current Size (cm) - Length 1 -Current Size (cm) - Width 6.6 -Current Size (cm) - Depth 0.6 -Total Square Cm 6.6 -Photo Taken No -Exudate Amt Large (67-100%) -Exudate Type Serosanguineous -Wound Margin Distinct, Outline Attached -Granulation Amt Large (67-100%) -Granulation Quality Red -Necrosis Amt Small (1-33%) -Necrotic Tissue Type Adherent Slough -Structure Exposed N/A -Texture (Inessa-wound Skin Appearance) No Abnormality -Moisture (Inessa-wound Skin Appearance No Abnormality ) -Color (Inessa-wound Skin Appearance) No Abnormality -Temperature (Inessa-wound Skin No Abnormality Appearance) (Pt Warm) -Tenderness on Palpation (Inessa-wound No Skin Appearance) -Ulcer Cleansing Wound Cleanser -Foul Odor after Cleansing No -Anesthetic Used 5% Lidocaine Gel #1- LEFT GROIN- POST OP -Current Size (cm) - Length 2 -Current Size (cm) - Width 18.5 -Current Size (cm) - Depth 1.4 -Total Square Cm 37.0 -Photo Taken No -Exudate Amt Large (67-100%) -Exudate Type Serosanguineous -Wound Margin Distinct, Outline Attached -Granulation Amt Large (67-100%) -Granulation Quality Red -Necrosis Amt Small (1-33%) -Necrotic Tissue Type Adherent Slough -Structure Exposed N/A -Texture (Inessa-wound Skin Appearance) No Abnormality -Moisture (Inessa-wound Skin Appearance No Abnormality ) -Color (Inessa-wound Skin Appearance) No Abnormality -Temperature (Inessa-wound Skin No Abnormality Appearance) (Pt Warm) -Ulcer Cleansing Wound Cleanser -Foul Odor after Cleansing No -Anesthetic Used 5% Lidocaine Gel WC - Nurse 2 - General Ulcer CM Notes Start: 12/26/17 15:52 Freq: Status: Active Protocol: Activity Type Activity Date Activity User E-Sign Co-Sign Detail Recorded Client Recorded Date Recorded By Document 01/02/18 16:29 [id number] 01/02/18 16:30 01/02/18 16:29 Wound Center Nurse 2 [Procedure/Treatment] #2 Left Abdominal Fold -Time 16:29 -Correct Patient Yes -Correct Side, Site, Position Yes -Correct Procedure Yes -Procedure Performed Yes -Type of Procedure Debridement -Clinical Debridement Subcutaneous -Post Debridement Size (cm) - Length 1.6 -Post Debridement Size (cm) - Width 6.4 -Post Debridement Size (cm) - Depth 0.1 -Total Square Cm 10.24 -Wound/Ulcer Outcome Not Healed -Ulcer Cleansing Not Cleansed -Foul Odor after Cleansing No -Bioengineered Tissue Yes -Type of bioengineered Tissue [id number] -Expiration Date 04/09/20 -Product Lot Number [id number] -Percent Used 100 -Bleeding Controlled with Pressure -Treatment Response Procedure Tolerated Well #1- LEFT GROIN- POST OP -Time 16:30 -Correct Patient Yes -Correct Side, Site, Position Yes -Correct Procedure Yes -Procedure Performed Yes -Type of Procedure Debridement -Clinical Debridement Subcutaneous -Post Debridement Size (cm) - Length 4.1 -Post Debridement Size (cm) - Width 19.7 -Post Debridement Size (cm) - Depth 0.1 -Total Square Cm 80.77 -Wound/Ulcer Outcome Not Healed -Ulcer Cleansing Not Cleansed -Foul Odor after Cleansing No -Bioengineered Tissue No -Bleeding Controlled with NA -Treatment Response Procedure Tolerated Well [See Physician Procedure note for Specifics] Pain Scale: 0-10 Numeric [Pain] -Is Patient Pain Free? Yes Neurological: Neuro grossly intact Psych/Mental Status: Normal Affect, Appropriate, Alert and oriented to time, place, person, mood and affect Debridement Note Post-Debridement Measurements/Treatment WC - Nurse 2 - General Ulcer CM Notes Start: 12/26/17 15:52 Freq: Status: Active Protocol: Activity Type Activity Date Activity User E-Sign Co-Sign Detail Recorded Client Recorded Date Recorded By Document 12/26/17 17:28 TM [id number] 12/26/17 17:33 TM Document 01/02/18 16:29 [id number] 01/02/18 16:30 12/26/17 01/02/18 17:28 16:29 Wound Center Nurse 2 #2 Left Abdominal Fold -Time 17:28 16:29 -Correct Patient Yes Yes -Correct Side, Site, Position Yes Yes -Correct Procedure Yes Yes -Procedure Performed Yes Yes -Type of Procedure Debridement Debridement -Clinical Debridement Subcutaneous Subcutaneous -Post Debridement Size (cm) - Length 2.5 1.6 -Post Debridement Size (cm) - Width 7.0 6.4 -Post Debridement Size (cm) - Depth 0.1 0.1 -Total Square Cm 17.50 10.24 -Wound/Ulcer Outcome Not Healed Not Healed -Ulcer Cleansing Rinsed/ Not Cleansed Irrigated with Saline -Foul Odor after Cleansing No No -Bioengineered Tissue Yes Yes -Type of bioengineered Tissue [id number] -Expiration Date 04/04/20 04/09/20 -Product Lot Number [id number] -Percent Used 100 100 -Saline Lot Number [id number] -Topical Lidocaine (%) 5 -Bleeding Controlled with Pressure Pressure -Treatment Response Procedure Procedure Tolerated Well Tolerated Well #1- LEFT GROIN- POST OP -Time 17:29 16:30 -Correct Patient Yes Yes -Correct Side, Site, Position Yes Yes -Correct Procedure Yes Yes -Procedure Performed Yes Yes -Type of Procedure Debridement Debridement -Clinical Debridement Subcutaneous Subcutaneous -Post Debridement Size (cm) - Length 4.9 4.1 -Post Debridement Size (cm) - Width 18.5 19.7 -Post Debridement Size (cm) - Depth 0.1 0.1 -Total Square Cm 90.65 80.77 -Wound/Ulcer Outcome Not Healed Not Healed -Ulcer Cleansing Rinsed/ Not Cleansed Irrigated with Saline -Foul Odor after Cleansing No No -Bioengineered Tissue No No -Topical Lidocaine (%) 5 -Bleeding Controlled with Pressure NA -Other pocket 3.2cm -Treatment Response Procedure Procedure Tolerated Well Tolerated Well Pain Scale: 0-10 Numeric Is Patient Pain Free? Yes Yes Wound debrided: Left abdominal fold ulcer Laterality: Left Type of Debridement: Excisional debridement Anesthesia Used: 5% Lidocaine Gel Depth: in the subcutaneous layer Percentage of wound debrided: 100 Instrument Used: 7mm curette Tissue Removed: slough and devitalized tissue Severity: Fat Layer Exposed Amount of bleeding with debridement: Mild Bleeding Controlled with: Pressure Patient tolerated procedure well purrapply am applied - Additional Wound Wound debrided: left groin ulcer Laterality: Left Type of Debridement: Excisional debridement Anesthesia Used: 5% Lidocaine Gel Depth: in the subcutaneous layer Percentage of wound debrided: 100 Instrument Used: 7mm curette Tissue Removed: slough and devitalized tissue Severity: Fat Layer Exposed Amount of bleeding with debridement: Mild Bleeding Controlled with: Pressure Patient tolerated procedure: Patient tolerated procedure well Assessment/Plan Active Problems History of necrotising fasciitis (Acute) Non-healing surgical wound of left groin (Acute) Skin ulcer of abdominal wall with fat layer exposed (Acute) left abdominal fold Assessment: Nonhealing postsurgical wound left groin status post surgical excision of necrotizing fasciitis. Bilateral lower extremity edema. Morbid obesity. Type 2 diabetes mellitus Plan: The patient was seen and examined at the wound center today and was updated on the plan of care. A subcutaneous debridement was performed today. The patient tolerated the procedure well. The patients wound care will consist of: utilizing aquacell extra dressings daily and PRN. Purapply AM #2 was applied to left abdominal fold ulcer, wound veil then applied and secured with steris, 100% used with 0% wasted. May use aquacell extra overtop if drainage occurs. Patient also instructed to wash with chlorhexidine at least every other day to left groin ulcer. Due to delayed healing and moderate drainage, would like to consider wound vac again to left groin ulcer. Wound cultures were reviewed and negative. Baseline bloodwork reviewed which demonstrated a slightly low pre-albumin and patient was advised to use Glucerna or high- protein with meals. Previous records were requested for continuity of care. Patient educated on the importance of diet on wound healing and instructed to increase protein and vitamin C intake. Patient verbalized understanding. Patient will follow up at wound healing center in one week or sooner if needed. Plastic surgery consultation - no surgery indicated. Did discuss with patient the importance of blood sugar control in wound healing. This note was generated with [employer] dictation software. It may contain incorrect words, spelling, and punctuation that were not noted in checking the note before signing. Code Visit 111xxx-113xx: 20335 Jessica subq tissue 20 sq cm/< 150xxx-152xx: [id number] Skin sub graft trnk/arm/leg Add On Codes: [id number] Jessica subq tissue add-on
[2018-01-09 16:11] VITALS: BP 137/75; PULSE 101; RESP 20; TEMP 36.2
--- NOTE | 2018-01-09 20:26 | PCM.WC.PN ---
(1) Skin ulcer of abdominal wall with fat layer exposed Status: Acute Code(s): L98.492 - Non-pressure chronic ulcer of skin of other sites with fat layer exposed Comment: left abdominal fold (2) Non-healing surgical wound of left groin Status: Acute Qualifiers: Code(s): T81.89XA - Other complications of procedures, not elsewhere classified, initial encounter (3) History of necrotising fasciitis Status: Acute Code(s): Z87.39 - Personal history of other diseases of the musculoskeletal system and connective tissue (4) Lymphedema of both lower extremities Status: Acute Code(s): I89.0 - Lymphedema, not elsewhere classified (5) Morbid obesity Status: Acute Code(s): E66.01 - Morbid (severe) obesity due to excess calories (6) Type 2 diabetes mellitus Status: Acute Qualifiers: Code(s): E11.9 - Type 2 diabetes mellitus without complications Type of Wound Date of Service: 01/09/18 Chief Complaint: Nonhealing wound status post surgical excision of necrotizing fasciitis left groin History of Wound: 46-year-old white male who presents to the wound healing center today with complaint of left groin ulceration status post surgical excision of necrotizing fasciitis. He is a past medical history which is significant for that of type 2 diabetes mellitus, gout, diabetic neuropathy, schizophrenia, bilateral lymphedema, and schizophrenia. The patient states that what initially started as a pimple in his left groin progressed to necrotizing fasciitis and he had to have this surgically debrided in April 2017. He was admitted to [facility] for 2 weeks and then [facility] for 6 weeks afterwards. He states that the groin ulcer which extends to his left lower abdomen has been slowly improving and he has been doing daily Aquacel AG dressings with an ABD for the drainage. He does state that he has had 3 wound vacs in the past which were unable to be utilized due to the location of his wound. He denies any foul-smelling discharge or systemic signs of infection at this time. The patient otherwise denies any fever, chills, nausea, vomiting, shortness of breath, chest pain or pressure, palpitations, orthopnea, syncope or presyncopal episodes. Progress of Wound: Wound is stable, slight improvement in left lower abd fold ulcer , wound bed is moist and clean and without signs of infection at this time, There was a bridge of skin that has epithelialized and now made into 2 separate wounds wound 1 left groin and wound to left lower abdominal fold. - Physical Exam Vital Signs Temp Pulse Resp BP 97.1 F L 101 H 20 H 137/75 H 01/09/18 16:11 01/09/18 16:11 01/09/18 16:11 01/09/18 16:11 General: Alert, Oriented x3, Cooperative, No apparent distress HEENT: Atraumatic Cardiovascular: Regular rate Abdomen: Obese Extremities: No clubbing, No cyanosis, No edema Skin: Ulcer/ Wound - ulcer present left abdominal fold and left groin with large amount of adherant slough, no signs of infection, minimal drainage left abdominal fold and moderate serous drainage left groin Neurological: Neuro grossly intact Psych/Mental Status: Normal Affect, Appropriate, Alert and oriented to time, place, person, mood and affect Debridement Note Post-Debridement Measurements/Treatment WC - Nurse 2 - General Ulcer CM Notes Start: 12/26/17 15:52 Freq: Status: Active Protocol: Activity Type Activity Date Activity User E-Sign Co-Sign Detail Recorded Client Recorded Date Recorded By Document 12/26/17 17:28 [id number] 12/26/17 17:33 Document 01/02/18 16:29 [id number] 01/02/18 16:30 Document 01/09/18 17:00 [id number] 01/09/18 17:06 12/26/17 01/02/18 01/09/18 17:28 16:29 17:00 Wound Center Nurse 2 #2 Left Abdominal Fold -Time 17:28 16:29 17:00 -Correct Patient Yes Yes Yes -Correct Side, Site, Position Yes Yes Yes -Correct Procedure Yes Yes Yes -Procedure Performed Yes Yes Yes -Type of Procedure Debridement Debridement Debridement -Clinical Debridement Subcutaneous Subcutaneous Subcutaneous -Post Debridement Size (cm) - Length 2.5 1.6 1.5 -Post Debridement Size (cm) - Width 7.0 6.4 7.1 -Post Debridement Size (cm) - Depth 0.1 0.1 0.1 -Total Square Cm 17.50 10.24 10.65 -Wound/Ulcer Outcome Not Healed Not Healed Not Healed -Ulcer Cleansing Rinsed/ Not Cleansed Rinsed/ Irrigated with Irrigated with Saline Saline -Foul Odor after Cleansing No No No -Bioengineered Tissue Yes Yes Yes -Type of bioengineered Tissue [id number] -Expiration Date 04/04/20 04/09/20 07/27/19 -Product Lot Number [id number] -Percent Used 100 100 100 -Saline Lot Number [id number] -Topical Lidocaine (%) 5 -Bleeding Controlled with Pressure Pressure NA -Treatment Response Procedure Procedure Procedure Tolerated Well Tolerated Well Tolerated Well #1- LEFT GROIN- POST OP -Time 17:29 16:30 17:04 -Correct Patient Yes Yes Yes -Correct Side, Site, Position Yes Yes Yes -Correct Procedure Yes Yes Yes -Procedure Performed Yes Yes Yes -Type of Procedure Debridement Debridement Debridement -Clinical Debridement Subcutaneous Subcutaneous Subcutaneous -Post Debridement Size (cm) - Length 4.9 4.1 4.6 -Post Debridement Size (cm) - Width 18.5 19.7 19 -Post Debridement Size (cm) - Depth 0.1 0.1 0.1 -Total Square Cm 90.65 80.77 87.4 -Wound/Ulcer Outcome Not Healed Not Healed Not Healed -Ulcer Cleansing Rinsed/ Not Cleansed Not Cleansed Irrigated with Saline -Foul Odor after Cleansing No No No -Bioengineered Tissue No No No -Topical Lidocaine (%) 5 -Bleeding Controlled with Pressure NA NA -Other pocket 3.2cm -Treatment Response Procedure Procedure Procedure Tolerated Well Tolerated Well Tolerated Well Pain Scale: 0-10 Numeric Is Patient Pain Free? Yes Yes Yes Wound debrided: left abdominal fold ulcer Laterality: Left Type of Debridement: Excisional debridement Anesthesia Used: 5% Lidocaine Gel Depth: in the subcutaneous layer Percentage of wound debrided: 100 Instrument Used: 7mm curette Tissue Removed: slough and devitalized tissue Severity: Fat Layer Exposed Amount of bleeding with debridement: Mild Bleeding Controlled with: Pressure Patient tolerated procedure well purapply # 3 - Additional Wound Wound debrided: left groin ulcer Laterality: Left Type of Debridement: Excisional debridement Anesthesia Used: 5% Lidocaine Gel Depth: Down to and including healthy tissue, in the subcutaneous layer Percentage of wound debrided: 100 Instrument Used: 7mm curette Tissue Removed: slough and devitalized tissue Severity: Fat Layer Exposed Amount of bleeding with debridement: Mild Bleeding Controlled with: Pressure Patient tolerated procedure: Patient tolerated procedure well Assessment/Plan Assessment: Nonhealing postsurgical wound left groin status post surgical excision of necrotizing fasciitis. Bilateral lower extremity edema. Morbid obesity. Type 2 diabetes mellitus Plan: The patient was seen and examined at the wound center today and was updated on the plan of care. A subcutaneous debridement was performed today. The patient tolerated the procedure well. The patients wound care will consist of: utilizing aquacell extra dressings daily and PRN. Purapply AM #3 was applied to left abdominal fold ulcer, wound veil then applied and secured with steris, 100% used with 0% wasted. May use aquacell extra overtop if drainage occurs. Patient also instructed to wash with chlorhexidine at least every other day to left groin ulcer. Due to delayed healing and moderate drainage, would like to consider wound vac again to left groin ulcer. KCI vac applied today. Wound cultures were reviewed and negative. Baseline bloodwork reviewed which demonstrated a slightly low pre-albumin and patient was advised to use Glucerna or high-protein with meals. Previous records were requested for continuity of care. Patient educated on the importance of diet on wound healing and instructed to increase protein and vitamin C intake. Patient verbalized understanding. Patient will follow up at wound healing center in one week or sooner if needed. Plastic surgery consultation - no surgery indicated. Did discuss with patient the importance of blood sugar control in wound healing. This note was generated with [employer] dictation software. It may contain incorrect words, spelling, and punctuation that were not noted in checking the note before signing. Code Visit 111xxx-113xx: 96534 Jessica subq tissue 20 sq cm/< 150xxx-152xx: 11222 Skin sub graft trnk/arm/leg Add On Codes: [id number] Jessica subq tissue add-on
--- NOTE | 2018-01-14 09:30 | PN.PCM_ITS ---
(1) Skin ulcer of abdominal wall with fat layer exposed Status: Acute Code(s): L98.492 - Non-pressure chronic ulcer of skin of other sites with fat layer exposed Comment: left abdominal fold (2) Non-healing surgical wound of left groin Status: Acute Qualifiers: Code(s): T81.89XA - Other complications of procedures, not elsewhere classified, initial encounter (3) History of necrotising fasciitis Status: Acute Code(s): Z87.39 - Personal history of other diseases of the musculoskeletal system and connective tissue (4) Lymphedema of both lower extremities Status: Acute Code(s): I89.0 - Lymphedema, not elsewhere classified (5) Morbid obesity Status: Acute Code(s): E66.01 - Morbid (severe) obesity due to excess calories (6) Type 2 diabetes mellitus Status: Acute Qualifiers: Code(s): E11.9 - Type 2 diabetes mellitus without complications Type of Wound Date of Service: 01/09/18 Chief Complaint: Nonhealing wound status post surgical excision of necrotizing fasciitis left groin History of Wound: 46-year-old white male who presents to the wound healing center today with complaint of left groin ulceration status post surgical excision of necrotizing fasciitis. He is a past medical history which is significant for that of type 2 diabetes mellitus, gout, diabetic neuropathy, schizophrenia, bilateral lymphedema, and schizophrenia. The patient states that what initially started as a pimple in his left groin progressed to necrotizing fasciitis and he had to have this surgically debrided in April 2017. [facility] and then [facility] weeks afterwards. He states that the groin ulcer which extends to his left lower abdomen has been slowly improving and he has been doing daily Aquacel AG dressings with an ABD for the drainage. He does state that he has had 3 wound vacs in the past which were unable to be utilized due to the location of his wound. He denies any foul-smelling discharge or systemic signs of infection at this time. The patient otherwise denies any fever, chills, nausea, vomiting, shortness of breath, chest pain or pressure, palpitations, orthopnea, syncope or presyncopal episodes. Progress of Wound: Wound is stable, slight improvement in left lower abd fold ulcer , wound bed is moist and clean and without signs of infection at this time, There was a bridge of skin that has epithelialized and now made into 2 separate wounds wound 1 left groin and wound to left lower abdominal fold. - Physical Exam Vital Signs Temp Pulse Resp BP 97.1 F L 101 H 20 H 137/75 H 01/09/18 16:11 01/09/18 16:11 01/09/18 16:11 01/09/18 16:11 General: Alert, Oriented x3, Cooperative, No apparent distress HEENT: Atraumatic Cardiovascular: Regular rate Abdomen: Obese Extremities: No clubbing, No cyanosis, No edema Skin: Ulcer/ Wound - ulcer present left abdominal fold and left groin with large amount of adherant slough, no signs of infection, minimal drainage left abdominal fold and moderate serous drainage left groin Neurological: Neuro grossly intact Psych/Mental Status: Normal Affect, Appropriate, Alert and oriented to time, place, person, mood and affect Debridement Note Post-Debridement Measurements/Treatment WC - Nurse 2 - General Ulcer CM Notes Start: 12/26/17 15:52 Freq: Status: Active Protocol: Activity Type Activity Date Activity User E-Sign Co-Sign Detail Recorded Client Recorded Date Recorded By Document 12/26/17 17:28 [id number] 12/26/17 17:33 Document 01/02/18 16:29 [id number] 01/02/18 16:30 Document 01/09/18 17:00 [id number] 01/09/18 17:06 12/26/17 01/02/18 01/09/18 17:28 16:29 17:00 Wound Center Nurse 2 #2 Left Abdominal Fold -Time 17:28 16:29 17:00 -Correct Patient Yes Yes Yes -Correct Side, Site, Position Yes Yes Yes -Correct Procedure Yes Yes Yes -Procedure Performed Yes Yes Yes -Type of Procedure Debridement Debridement Debridement -Clinical Debridement Subcutaneous Subcutaneous Subcutaneous -Post Debridement Size (cm) - Length 2.5 1.6 1.5 -Post Debridement Size (cm) - Width 7.0 6.4 7.1 -Post Debridement Size (cm) - Depth 0.1 0.1 0.1 -Total Square Cm 17.50 10.24 10.65 -Wound/Ulcer Outcome Not Healed Not Healed Not Healed -Ulcer Cleansing Rinsed/ Not Cleansed Rinsed/ Irrigated with Irrigated with Saline Saline -Foul Odor after Cleansing No No No -Bioengineered Tissue Yes Yes Yes -Type of bioengineered Tissue [id number] -Expiration Date 04/04/20 04/09/20 07/27/19 -Product Lot Number [id number] -Percent Used 100 100 100 -Saline Lot Number [id number] -Topical Lidocaine (%) 5 -Bleeding Controlled with Pressure Pressure NA -Treatment Response Procedure Procedure Procedure Tolerated Well Tolerated Well Tolerated Well #1- LEFT GROIN- POST OP -Time 17:29 16:30 17:04 -Correct Patient Yes Yes Yes -Correct Side, Site, Position Yes Yes Yes -Correct Procedure Yes Yes Yes -Procedure Performed Yes Yes Yes -Type of Procedure Debridement Debridement Debridement -Clinical Debridement Subcutaneous Subcutaneous Subcutaneous -Post Debridement Size (cm) - Length 4.9 4.1 4.6 -Post Debridement Size (cm) - Width 18.5 19.7 19 -Post Debridement Size (cm) - Depth 0.1 0.1 0.1 -Total Square Cm 90.65 80.77 87.4 -Wound/Ulcer Outcome Not Healed Not Healed Not Healed -Ulcer Cleansing Rinsed/ Not Cleansed Not Cleansed Irrigated with Saline -Foul Odor after Cleansing No No No -Bioengineered Tissue No No No -Topical Lidocaine (%) 5 -Bleeding Controlled with Pressure NA NA -Other pocket 3.2cm -Treatment Response Procedure Procedure Procedure Tolerated Well Tolerated Well Tolerated Well Pain Scale: 0-10 Numeric Is Patient Pain Free? Yes Yes Yes Wound debrided: left abdominal fold ulcer Laterality: Left Type of Debridement: Excisional debridement Anesthesia Used: 5% Lidocaine Gel Depth: in the subcutaneous layer Percentage of wound debrided: 100 Instrument Used: 7mm curette Tissue Removed: slough and devitalized tissue Severity: Fat Layer Exposed Amount of bleeding with debridement: Mild Bleeding Controlled with: Pressure Patient tolerated procedure well purapply # 3 - Additional Wound Wound debrided: left groin ulcer Laterality: Left Type of Debridement: Excisional debridement Anesthesia Used: 5% Lidocaine Gel Depth: Down to and including healthy tissue, in the subcutaneous layer Percentage of wound debrided: 100 Instrument Used: 7mm curette Tissue Removed: slough and devitalized tissue Severity: Fat Layer Exposed Amount of bleeding with debridement: Mild Bleeding Controlled with: Pressure Patient tolerated procedure: Patient tolerated procedure well Assessment/Plan Assessment: Nonhealing postsurgical wound left groin status post surgical excision of necrotizing fasciitis. Bilateral lower extremity edema. Morbid obesity. Type 2 diabetes mellitus Plan: The patient was seen and examined at the wound center today and was updated on the plan of care. A subcutaneous debridement was performed today. The patient tolerated the procedure well. The patients wound care will consist of: utilizing aquacell extra dressings daily and PRN. Purapply AM #3 was applied to left abdominal fold ulcer, wound veil then applied and secured with steris, 100% used with 0% wasted. May use aquacell extra overtop if drainage occurs. Patient also instructed to wash with chlorhexidine at least every other day to left groin ulcer. Due to delayed healing and moderate drainage, would like to consider wound vac again to left groin ulcer. KCI vac applied today. Wound cultures were reviewed and negative. Baseline bloodwork reviewed which demons trated a slightly low pre-albumin and patient was advised to use Glucerna or high-protein with meals. Previous records were requested for continuity of care. Patient educated on the importance of diet on wound healing and instructed to increase protein and vitamin C intake. Patient verbalized understanding. Patient will follow up at wound healing center in one week or sooner if needed. Plastic surgery consultation - no surgery indicated. Did discuss with patient the importance of blood sugar control in wound healing. This note was generated with [employer] dictation software. It may contain incorrect words, spelling, and punctuation that were not noted in checking the note before signing. Code Visit 111xxx-113xx: 05267 Jessica subq tissue 20 sq cm/< 150xxx-152xx: 82495 Skin sub graft trnk/arm/leg Add On Codes: [id number] Jessica subq tissue add-on
[2018-01-16 16:37] VITALS: BP 143/74; PULSE 81; RESP 16; TEMP 35.5
--- NOTE | 2018-01-16 20:55 | PCM.WC.PN ---
(1) Skin ulcer of abdominal wall with fat layer exposed Status: Acute Code(s): L98.492 - Non-pressure chronic ulcer of skin of other sites with fat layer exposed Comment: left abdominal fold (2) Non-healing surgical wound of left groin Status: Acute Qualifiers: Code(s): T81.89XA - Other complications of procedures, not elsewhere classified, initial encounter (3) History of necrotising fasciitis Status: Acute Code(s): Z87.39 - Personal history of other diseases of the musculoskeletal system and connective tissue (4) Lymphedema of both lower extremities Status: Acute Code(s): I89.0 - Lymphedema, not elsewhere classified (5) Morbid obesity Status: Acute Code(s): E66.01 - Morbid (severe) obesity due to excess calories (6) Type 2 diabetes mellitus Status: Acute Qualifiers: Code(s): E11.9 - Type 2 diabetes mellitus without complications Type of Wound Date of Service: 01/16/18 Chief Complaint: Nonhealing wound status post surgical excision of necrotizing fasciitis left groin History of Wound: 46-year-old white male who presents to the wound healing center today with complaint of left groin ulceration status post surgical excision of necrotizing fasciitis. He is a past medical history which is significant for that of type 2 diabetes mellitus, gout, diabetic neuropathy, schizophrenia, bilateral lymphedema, and schizophrenia. The patient states that what initially started as a pimple in his left groin progressed to necrotizing fasciitis and he had to have this surgically debrided in April 2017. He was admitted to [facility] for 2 weeks and then [facility] for 6 weeks afterwards. He states that the groin ulcer which extends to his left lower abdomen has been slowly improving and he has been doing daily Aquacel AG dressings with an ABD for the drainage. He does state that he has had 3 wound vacs in the past which were unable to be utilized due to the location of his wound. He denies any foul-smelling discharge or systemic signs of infection at this time. The patient otherwise denies any fever, chills, nausea, vomiting, shortness of breath, chest pain or pressure, palpitations, orthopnea, syncope or presyncopal episodes. Progress of Wound: Wound is improving in left lower abd fold ulcer and left groin ulcer , wound bed is moist and clean and without signs of infection at this time, patient has been tolerating the vac and the purapply to the abdominal fold ulcer stayed in place x 4 days. There is a bridge of skin that has epithelialized and now made into 2 separate wounds wound 1 left groin and wound to left lower abdominal fold. - Physical Exam Vital Signs Temp Pulse Resp BP 96 F L 81 16 143/74 H 01/16/18 16:37 01/16/18 16:37 01/16/18 16:37 01/16/18 16:37 General: Alert, Oriented x3, Cooperative, No apparent distress HEENT: Atraumatic Cardiovascular: Regular rate Abdomen: Obese Skin: Ulcer/ Wound - ulcers as noted in documentation, both with adherant slough, no signs of infection at this time. No odor, small serous drainage. Neurological: Neuro grossly intact Psych/Mental Status: Normal Affect, Appropriate, Alert and oriented to time, place, person, mood and affect Debridement Note Post-Debridement Measurements/Treatment WC - Nurse 2 - General Ulcer CM Notes Start: 12/26/17 15:52 Freq: Status: Active Protocol: Activity Type Activity Date Activity User E-Sign Co-Sign Detail Recorded Client Recorded Date Recorded By Document 12/26/17 17:28 [id number] 12/26/17 17:33 Document 01/02/18 16:29 [id number] 01/02/18 16:30 Document 01/09/18 17:00 [id number] 01/09/18 17:06 Document 01/16/18 16:58 [id number] 01/16/18 17:07 12/26/17 01/02/18 01/09/18 17:28 16:29 17:00 Wound Center Nurse 2 #2 Left Abdominal Fold -Time 17:28 16:29 17:00 -Correct Patient Yes Yes Yes -Correct Side, Site, Position Yes Yes Yes -Correct Procedure Yes Yes Yes -Procedure Performed Yes Yes Yes -Type of Procedure Debridement Debridement Debridement -Clinical Debridement Subcutaneous Subcutaneous Subcutaneous -Post Debridement Size (cm) - Length 2.5 1.6 1.5 -Post Debridement Size (cm) - Width 7.0 6.4 7.1 -Post Debridement Size (cm) - Depth 0.1 0.1 0.1 -Total Square Cm 17.50 10.24 10.65 -Wound/Ulcer Outcome Not Healed Not Healed Not Healed -Ulcer Cleansing Rinsed/ Not Cleansed Rinsed/ Irrigated with Irrigated with Saline Saline -Foul Odor after Cleansing No No No -Bioengineered Tissue Yes Yes Yes -Type of bioengineered Tissue [id number] -Expiration Date 04/04/20 04/09/20 07/27/19 -Product Lot Number [id number] -Percent Used 100 100 100 -Saline Lot Number [id number] -Topical Lidocaine (%) 5 -Bleeding Controlled with Pressure Pressure NA -Treatment Response Procedure Procedure Procedure Tolerated Well Tolerated Well Tolerated Well #1- LEFT GROIN- POST OP -Time 17:29 16:30 17:04 -Correct Patient Yes Yes Yes -Correct Side, Site, Position Yes Yes Yes -Correct Procedure Yes Yes Yes -Procedure Performed Yes Yes Yes -Type of Procedure Debridement Debridement Debridement -Clinical Debridement Subcutaneous Subcutaneous Subcutaneous -Post Debridement Size (cm) - Length 4.9 4.1 4.6 -Post Debridement Size (cm) - Width 18.5 19.7 19 -Post Debridement Size (cm) - Depth 0.1 0.1 0.1 -Total Square Cm 90.65 80.77 87.4 -Wound/Ulcer Outcome Not Healed Not Healed Not Healed -Ulcer Cleansing Rinsed/ Not Cleansed Not Cleansed Irrigated with Saline -Foul Odor after Cleansing No No No -Bioengineered Tissue No No No -Topical Lidocaine (%) 5 -Bleeding Controlled with Pressure NA NA -Other pocket 3.2cm -Treatment Response Procedure Procedure Procedure Tolerated Well Tolerated Well Tolerated Well Pain Scale: 0-10 Numeric Is Patient Pain Free? Yes Yes Yes 01/16/18 16:58 Wound Center Nurse 2 #2 Left Abdominal Fold -Time 16:58 -Correct Patient Yes -Correct Side, Site, Position Yes -Correct Procedure Yes -Procedure Performed Yes -Type of Procedure Debridement -Clinical Debridement Subcutaneous -Post Debridement Size (cm) - Length 1.3 -Post Debridement Size (cm) - Width 6.3 -Post Debridement Size (cm) - Depth 0.1 -Total Square Cm 8.19 -Wound/Ulcer Outcome Not Healed -Ulcer Cleansing Not Cleansed -Foul Odor after Cleansing No -Bioengineered Tissue Yes -Type of bioengineered Tissue [id number] -Expiration Date 05/17/20 -Product Lot Number [id number] -Percent Used 100 -Saline Lot Number -Topical Lidocaine (%) -Bleeding Controlled with NA -Treatment Response Procedure Tolerated Well #1- LEFT GROIN- POST OP -Time 16:59 -Correct Patient Yes -Correct Side, Site, Position Yes -Correct Procedure Yes -Procedure Performed Yes -Type of Procedure Debridement -Clinical Debridement Subcutaneous -Post Debridement Size (cm) - Length 4.5 -Post Debridement Size (cm) - Width 16.5 -Post Debridement Size (cm) - Depth 0.1 -Total Square Cm 74.25 -Wound/Ulcer Outcome Not Healed -Ulcer Cleansing Not Cleansed -Foul Odor after Cleansing No -Bioengineered Tissue No -Topical Lidocaine (%) -Bleeding Controlled with NA -Other -Treatment Response Procedure Tolerated Well Pain Scale: 0-10 Numeric Is Patient Pain Free? Yes Wound debrided: left abdominal fold ulcer Laterality: Left Type of Debridement: Excisional debridement Anesthesia Used: 5% Lidocaine Gel Depth: in the subcutaneous layer Percentage of wound debrided: 100 Instrument Used: 7mm curette Tissue Removed: slough and devitalized tissue Severity: Fat Layer Exposed Amount of bleeding with debridement: Mild Bleeding Controlled with: Pressure Patient tolerated procedure well purapply AM applied - Additional Wound Wound debrided: left groin ulcer Laterality: Left Type of Debridement: Excisional debridement Anesthesia Used: 5% Lidocaine Gel Depth: in the subcutaneous layer Percentage of wound debrided: 100 Instrument Used: 5mm curette Tissue Removed: slough and devitalized tissue Severity: Fat Layer Exposed Amount of bleeding with debridement: Mild Bleeding Controlled with: Pressure Patient tolerated procedure: Patient tolerated procedure well - vac applied after Assessment/Plan Assessment: Nonhealing postsurgical wound left groin status post surgical excision of necrotizing fasciitis. Bilateral lower extremity edema. Morbid obesity. Type 2 diabetes mellitus Plan: The patient was seen and examined at the wound center today and was updated on the plan of care. A subcutaneous debridement was performed today. The patient tolerated the procedure well. The patients wound care will consist of: Purapply AM #4 was applied to left abdominal fold ulcer, wound veil then applied and secured with steris, 100% used with 0% wasted. May use [place] extra overtop if drainage occurs. Patient also instructed to wash with chlorhexidine at least every other day to left groin ulcer. Due to delayed healing and moderate drainage, will continue wound vac to left groin ulcer at 125 mmhg. KCI vac applied today. Wound cultures were reviewed and negative previously. Baseline bloodwork reviewed which demonstrated a slightly low pre-albumin and patient was advised to use Glucerna or high-protein with meals. Previous records were requested for continuity of care. Patient educated on the importance of diet on wound healing and instructed to increase protein and vitamin C intake. Patient verbalized understanding. Patient will follow up at wound healing center in one week or sooner if needed. Plastic surgery consultation - no surgery indicated. Did discuss with patient the importance of blood sugar control in wound healing. This note was generated with [employer] dictation software. It may contain incorrect words, spelling, and punctuation that were not noted in checking the note before signing. Code Visit 111xxx-113xx: 54624 Jessica subq tissue 20 sq cm/< 150xxx-152xx: [id number] Skin sub graft trnk/arm/leg Add On Codes: [id number] Jessica subq tissue add-on
--- NOTE | 2018-01-21 10:59 | PN.PCM_ITS ---
(1) Skin ulcer of abdominal wall with fat layer exposed Status: Acute Code(s): L98.492 - Non-pressure chronic ulcer of skin of other sites with fat layer exposed Comment: left abdominal fold (2) Non-healing surgical wound of left groin Status: Acute Qualifiers: Code(s): T81.89XA - Other complications of procedures, not elsewhere classified, initial encounter (3) History of necrotising fasciitis Status: Acute Code(s): Z87.39 - Personal history of other diseases of the musculoskeletal system and connective tissue (4) Lymphedema of both lower extremities Status: Acute Code(s): I89.0 - Lymphedema, not elsewhere classified (5) Morbid obesity Status: Acute Code(s): E66.01 - Morbid (severe) obesity due to excess calories (6) Type 2 diabetes mellitus Status: Acute Qualifiers: Code(s): E11.9 - Type 2 diabetes mellitus without complications Type of Wound Date of Service: 01/16/18 Chief Complaint: Nonhealing wound status post surgical excision of necrotizing fasciitis left groin History of Wound: 46-year-old white male who presents to the wound healing center today with complaint of left groin ulceration status post surgical excision of necrotizing fasciitis. He is a past medical history which is significant for that of type 2 diabetes mellitus, gout, diabetic neuropathy, schizophrenia, bilateral lymphedema, and schizophrenia. The patient states that what initially started as a pimple in his left groin progressed to necrotizing fasciitis and he had to have this surgically debrided in April 2017. He was admitted to [facility] for 2 weeks and then [facility] for 6 weeks afterwards. He states that the groin ulcer which extends to his left lower abdomen has been slowly improving and he has been doing daily Aquacel AG dressings with an ABD for the drainage. He does state that he has had 3 wound vacs in the past which were unable to be utilized due to the location of his wound. He denies any foul-smelling discharge or systemic signs of infection at this time. The patient otherwise denies any fever, chills, nausea, vomiting, shortness of breath, chest pain or pressure, palpitations, orthopnea, syncope or presyncopal episodes. Progress of Wound: Wound is improving in left lower abd fold ulcer and left groin ulcer , wound bed is moist and clean and without signs of infection at this time, patient has been tolerating the vac and the purapply to the abdominal fold ulcer stayed in place x 4 days. There is a bridge of skin that has epithelialized and now made into 2 separate wounds wound 1 left groin and wound to left lower abdominal fold. - Physical Exam Vital Signs Temp Pulse Resp BP 96 F L 81 16 143/74 H 01/16/18 16:37 01/16/18 16:37 01/16/18 16:37 01/16/18 16:37 General: Alert, Oriented x3, Cooperative, No apparent distress HEENT: Atraumatic Cardiovascular: Regular rate Abdomen: Obese Skin: Ulcer/ Wound - ulcers as noted in documentation, both with adherant slough, no signs of infection at this time. No odor, small serous drainage. Neurological: Neuro grossly intact Psych/Mental Status: Normal Affect, Appropriate, Alert and oriented to time, place, person, mood and affect Debridement Note Post-Debridement Measurements/Treatment WC - Nurse 2 - General Ulcer CM Notes Start: 12/26/17 15:52 Freq: Status: Active Protocol: Activity Type Activity Date Activity User E-Sign Co-Sign Detail Recorded Client Recorded Date Recorded By Document 12/26/17 17:28 [id number] 12/26/17 17:33 Document 01/02/18 16:29 [id number] 01/02/18 16:30 Document 01/09/18 17:00 [id number] 01/09/18 17:06 Document 01/16/18 16:58 [id number] 01/16/18 17:07 12/26/17 01/02/18 01/09/18 17:28 16:29 17:00 Wound Center Nurse 2 #2 Left Abdominal Fold -Time 17:28 16:29 17:00 -Correct Patient Yes Yes Yes -Correct Side, Site, Position Yes Yes Yes -Correct Procedure Yes Yes Yes -Procedure Performed Yes Yes Yes -Type of Procedure Debridement Debridement Debridement -Clinical Debridement Subcutaneous Subcutaneous Subcutaneous -Post Debridement Size (cm) - Length 2.5 1.6 1.5 -Post Debridement Size (cm) - Width 7.0 6.4 7.1 -Post Debridement Size (cm) - Depth 0.1 0.1 0.1 -Total Square Cm 17.50 10.24 10.65 -Wound/Ulcer Outcome Not Healed Not Healed Not Healed -Ulcer Cleansing Rinsed/ Not Cleansed Rinsed/ Irrigated with Irrigated with Saline Saline -Foul Odor after Cleansing No No No -Bioengineered Tissue Yes Yes Yes -Type of bioengineered Tissue [id number] -Expiration Date 04/04/20 04/09/20 07/27/19 -Product Lot Number [id number] -Percent Used 100 100 100 -Saline Lot Number [id number] -Topical Lidocaine (%) 5 -Bleeding Controlled with Pressure Pressure NA -Treatment Response Procedure Procedure Procedure Tolerated Well Tolerated Well Tolerated Well #1- LEFT GROIN- POST OP -Time 17:29 16:30 17:04 -Correct Patient Yes Yes Yes -Correct Side, Site, Position Yes Yes Yes -Correct Procedure Yes Yes Yes -Procedure Performed Yes Yes Yes -Type of Procedure Debridement Debridement Debridement -Clinical Debridement Subcutaneous Subcutaneous Subcutaneous -Post Debridement Size (cm) - Length 4.9 4.1 4.6 -Post Debridement Size (cm) - Width 18.5 19.7 19 -Post Debridement Size (cm) - Depth 0.1 0.1 0.1 -Total Square Cm 90.65 80.77 87.4 -Wound/Ulcer Outcome Not Healed Not Healed Not Healed -Ulcer Cleansing Rinsed/ Not Cleansed Not Cleansed Irrigated with Saline -Foul Odor after Cleansing No No No -Bioengineered Tissue No No No -Topical Lidocaine (%) 5 -Bleeding Controlled with Pressure NA NA -Other pocket 3.2cm -Treatment Response Procedure Procedure Procedure Tolerated Well Tolerated Well Tolerated Well Pain Scale: 0-10 Numeric Is Patient Pain Free? Yes Yes Yes 01/16/18 16:58 Wound Center Nurse 2 #2 Left Abdominal Fold -Time 16:58 -Correct Patient Yes -Correct Side, Site, Position Yes -Correct Procedure Yes -Procedure Performed Yes -Type of Procedure Debridement -Clinical Debridement Subcutaneous -Post Debridement Size (cm) - Length 1.3 -Post Debridement Size (cm) - Width 6.3 -Post Debridement Size (cm) - Depth 0.1 -Total Square Cm 8.19 -Wound/Ulcer Outcome Not Healed -Ulcer Cleansing Not Cleansed -Foul Odor after Cleansing No -Bioengineered Tissue Yes -Type of bioengineered Tissue [id number] -Expiration Date 05/17/20 -Product Lot Number [id number] -Percent Used 100 -Saline Lot Number -Topical Lidocaine (%) -Bleeding Controlled with NA -Treatment Response Procedure Tolerated Well #1- LEFT GROIN- POST OP -Time 16:59 -Correct Patient Yes -Correct Side, Site, Position Yes -Correct Procedure Yes -Procedure Performed Yes -Type of Procedure Debridement -Clinical Debridement Subcutaneous -Post Debridement Size (cm) - Length 4.5 -Post Debridement Size (cm) - Width 16.5 -Post Debridement Size (cm) - Depth 0.1 -Total Square Cm 74.25 -Wound/Ulcer Outcome Not Healed -Ulcer Cleansing Not Cleansed -Foul Odor after Cleansing No -Bioengineered Tissue No -Topical Lidocaine (%) -Bleeding Controlled with NA -Other -Treatment Response Procedure Tolerated Well Pain Scale: 0-10 Numeric Is Patient Pain Free? Yes Wound debrided: left abdominal fold ulcer Laterality: Left Type of Debridement: Excisional debridement Anesthesia Used: 5% Lidocaine Gel Depth: in the subcutaneous layer Percentage of wound debrided: 100 Instrument Used: 7mm curette Tissue Removed: slough and devitalized tissue Severity: Fat Layer Exposed Amount of bleeding with debridement: Mild Bleeding Controlled with: Pressure Patient tolerated procedure well purapply AM applied - Additional Wound Wound debrided: left groin ulcer Laterality: Left Type of Debridement: Excisional debridement Anesthesia Used: 5% Lidocaine Gel Depth: in the subcutaneous layer Percentage of wound debrided: 100 Instrument Used: 5mm curette Tissue Removed: slough and devitalized tissue Severity: Fat Layer Exposed Amount of bleeding with debridement: Mild Bleeding Controlled with: Pressure Patient tolerated procedure: Patient tolerated procedure well - vac applied after Assessment/Plan Assessment: Nonhealing postsurgical wound left groin status post surgical excision of necrotizing fasciitis. Bilateral lower extremity edema. Morbid obesity. Type 2 diabetes mellitus Plan: The patient was seen and examined at the wound center today and was updated on the plan of care. A subcutaneous debridement was performed today. The patient tolerated the procedure well. The patients wound care will consist of: Purapply AM #4 was applied to left abdominal fold ulcer, wound veil then applied and secured with steris, 100% used with 0% wasted. May use [place] extra overtop if drainage occurs. Patient also instructed to wash with chlorhexidine at least every other day to left groin ulcer. Due to delayed healing and moderate drainage, will continue wound vac to left groin ulcer at 125 mmhg. KCI vac applied today. Wound cultures were reviewed and negative previously. Baseline bloodwork reviewed which demonstrated a slightly low pre-albumin and patient was advised to use Glucerna or high-protein with meals. Previous records were requested for continuity of care. Patient educated on the importance of diet on wound healing and instructed to increase protein and vitamin C intake. Patient verbalized understanding. Patient will follow up at wound healing center in one week or sooner if needed. Plastic surgery consultation - no surgery indicated. Did discuss with patient the importance of blood sugar control in wound healing. This note was generated with [employer] dictation software. It may contain incorrect words, spelling, and punctuation that were not noted in checking the note before signing. Code Visit 111xxx-113xx: 15479 Jessica subq tissue 20 sq cm/< 150xxx-152xx: [id number] Skin sub graft trnk/arm/leg Add On Codes: [id number] Jessica subq tissue add-on
== END 2018-01-19 23:59 ==
LOC: WC 16:15
PROVIDERS: Family Provider Family Medicine; PCP Family Medicine; Visit Provider Nurse Practitioner Family
DX: M72.6 Necrotizing fasciitis (principal); E66.01 Morbid (severe) obesity due to excess calories; Z68.43 Body mass index [BMI] 50.0-59.9, adult; Z71.3 Dietary counseling and surveillance; I89.0 Lymphedema, not elsewhere classified; E11.40 Type 2 diabetes mellitus with diabetic neuropathy, unspecified; T81.89XA Other complications of procedures, not elsewhere classified, initial encounter
CPT/HCPCS: 11042; 11045; 15271; 97605; Q4172

== ENCOUNTER 2018-02-13 14:15 | Outpatient (RCR) | payer MEDICARE, MEDICAID, SELFPAY ==
[2018-01-20 00:48] VITALS: BP 143/74; PULSE 81; RESP 16; TEMP 35.5
[2018-01-23 13:03] VITALS: BP 145/98; PULSE 96; RESP 18; TEMP 36
--- NOTE | 2018-01-23 19:06 | PCM.WC.PN ---
(1) Skin ulcer of abdominal wall with fat layer exposed Status: Acute Code(s): L98.492 - Non-pressure chronic ulcer of skin of other sites with fat layer exposed Comment: left abdominal fold (2) Non-healing surgical wound of left groin Status: Acute Qualifiers: Code(s): T81.89XA - Other complications of procedures, not elsewhere classified, initial encounter (3) History of necrotising fasciitis Status: Acute Code(s): Z87.39 - Personal history of other diseases of the musculoskeletal system and connective tissue (4) Lymphedema of both lower extremities Status: Acute Code(s): I89.0 - Lymphedema, not elsewhere classified (5) Morbid obesity Status: Acute Code(s): E66.01 - Morbid (severe) obesity due to excess calories (6) Type 2 diabetes mellitus Status: Acute Qualifiers: Code(s): E11.9 - Type 2 diabetes mellitus without complications Type of Wound Date of Service: 01/23/18 Chief Complaint: Nonhealing wound status post surgical excision of necrotizing fasciitis left groin History of Wound: 46-year-old white male who presents to the wound healing center today with complaint of left groin ulceration status post surgical excision of necrotizing fasciitis. He is a past medical history which is significant for that of type 2 diabetes mellitus, gout, diabetic neuropathy, schizophrenia, bilateral lymphedema, and schizophrenia. The patient states that what initially started as a pimple in his left groin progressed to necrotizing fasciitis and he had to have this surgically debrided in April 2017. He was admitted to [facility] for 2 weeks and then [facility] for 6 weeks afterwards. He states that the groin ulcer which extends to his left lower abdomen has been slowly improving and he has been doing daily Aquacel AG dressings with an ABD for the drainage. He does state that he has had 3 wound vacs in the past which were unable to be utilized due to the location of his wound. He denies any foul-smelling discharge or systemic signs of infection at this time. The patient otherwise denies any fever, chills, nausea, vomiting, shortness of breath, chest pain or pressure, palpitations, orthopnea, syncope or presyncopal episodes. Progress of Wound: Wounds are stable at this time,more granular tissue present, wound beds are moist and clean and without signs of infection at this time, There was a bridge of skin that has epithelialized and now made into 2 separate wounds wound 1 left groin and wound to left lower abdominal fold. - Physical Exam Vital Signs Temp Pulse Resp BP 96.8 F L 96 18 145/98 H 01/23/18 13:03 01/23/18 13:03 01/23/18 13:03 01/23/18 13:03 General: Alert, Oriented x3, Cooperative, No apparent distress HEENT: Atraumatic Cardiovascular: Regular rate Abdomen: Obese Skin: Ulcer/ Wound - Left abdominal fold ulcer and left groin ulcer with adherent slough present, moist wound bed without any drainage at this time, no signs of obvious infection at this time. Neurological: Neuro grossly intact Psych/Mental Status: Normal Affect, Appropriate, Alert and oriented to time, place, person, mood and affect Debridement Note Post-Debridement Measurements/Treatment WC - Nurse 2 - General Ulcer CM Notes Start: 01/23/18 13:03 Freq: Status: Active Protocol: Activity Type Activity Date Activity User E-Sign Co-Sign Detail Recorded Client Recorded Date Recorded By Document 01/23/18 13:43 [id number] 01/23/18 13:55 01/23/18 13:43 Wound Center Nurse 2 #2 Left Abdominal Fold -Time 13:43 -Correct Patient Yes -Correct Side, Site, Position Yes -Correct Procedure Yes -Procedure Performed Yes -Type of Procedure Debridement -Clinical Debridement Subcutaneous -Post Debridement Size (cm) - Length 1.3 -Post Debridement Size (cm) - Width 5.9 -Post Debridement Size (cm) - Depth 0.1 -Total Square Cm 7.67 -Wound/Ulcer Outcome Not Healed -Ulcer Cleansing Rinsed/ Irrigated with Saline -Foul Odor after Cleansing No -Bioengineered Tissue Yes -Type of bioengineered Tissue [id number] -Expiration Date 07/13/20 -Product Lot Number [id number] -Percent Used 20 -Saline Lot Number [id number] -Bleeding Controlled with Pressure -Treatment Response Procedure Tolerated Well #1- LEFT GROIN- POST OP -Time 13:50 -Correct Patient Yes -Correct Side, Site, Position Yes -Correct Procedure Yes -Procedure Performed Yes -Type of Procedure Debridement -Clinical Debridement Subcutaneous -Post Debridement Size (cm) - Length 3.8 -Post Debridement Size (cm) - Width 16.4 -Post Debridement Size (cm) - Depth 0.1 -Total Square Cm 62.32 -Wound/Ulcer Outcome Not Healed -Ulcer Cleansing Rinsed/ Irrigated with Saline -Foul Odor after Cleansing No -Bioengineered Tissue Yes -Type of bioengineered Tissue [id number] -Expiration Date 07/13/20 -Product Lot Number [id number] -Percent Used 80 -Saline Lot Number [id number] -Bleeding Controlled with Pressure -Treatment Response Procedure Tolerated Well Pain Scale: 0-10 Numeric Is Patient Pain Free? Yes Wound debrided: Left abdominal fold ulcer Laterality: Left Type of Debridement: Excisional debridement Anesthesia Used: 5% Lidocaine Gel Depth: in the subcutaneous layer Percentage of wound debrided: 100 Instrument Used: 5mm curette Tissue Removed: Slough and devitalized tissue Severity: Fat Layer Exposed Amount of bleeding with debridement: Mild Bleeding Controlled with: Pressure Patient tolerated procedure well - Additional Wound Wound debrided: Left groin ulcer Type of Debridement: Excisional debridement Anesthesia Used: 5% Lidocaine Gel Depth: in the subcutaneous layer Percentage of wound debrided: 100 Instrument Used: 7mm curette Tissue Removed: Slough and devitalized tissue Severity: Fat Layer Exposed Amount of bleeding with debridement: Mild Bleeding Controlled with: Pressure Patient tolerated procedure: Patient tolerated procedure well Assessment/Plan Assessment: Nonhealing postsurgical wound left groin status post surgical excision of necrotizing fasciitis. Bilateral lower extremity edema. Morbid obesity. Type 2 diabetes mellitus Plan: The patient was seen and examined at the wound center today and was updated on the plan of care. A subcutaneous debridement was performed today. The patient tolerated the procedure well. The patients wound care will consist of: Purapply AM was applied to left abdominal fold and groin ulcer, wound veil then applied and secured with steris to the left abdominal fold ulcer, 100% used with 0% wasted. Wound VAC was applied afterwards to the left groin ulcer. May use aquacell extra overtop of left abdominal fold ulcer if drainage occurs. KCI vac applied today and to be changed biweekly. Wound cultures were reviewed and negative. Baseline bloodwork reviewed which demonstrated a slightly low pre-albumin and patient was advised to use Glucerna or high-protein with meals. Previous records were requested for continuity of care. Patient educated on the importance of diet on wound healing and instructed to increase protein and vitamin C intake. Patient verbalized understanding. Patient will follow up at wound healing center in one week or sooner if needed. Plastic surgery consultation - no surgery indicated. Did discuss with patient the importance of blood sugar control in wound healing. This note was generated with [employer] software. It may contain incorrect words, spelling, and punctuation that were not noted in checking the note before signing. Code Visit code visit [id number]
--- NOTE | 2018-01-28 09:11 | PN.PCM_ITS ---
(1) Skin ulcer of abdominal wall with fat layer exposed Status: Acute Code(s): L98.492 - Non-pressure chronic ulcer of skin of other sites with fat layer exposed Comment: left abdominal fold (2) Non-healing surgical wound of left groin Status: Acute Qualifiers: Code(s): T81.89XA - Other complications of procedures, not elsewhere classified, initial encounter (3) History of necrotising fasciitis Status: Acute Code(s): Z87.39 - Personal history of other diseases of the musculoskeletal system and connective tissue (4) Lymphedema of both lower extremities Status: Acute Code(s): I89.0 - Lymphedema, not elsewhere classified (5) Morbid obesity Status: Acute Code(s): E66.01 - Morbid (severe) obesity due to excess calories (6) Type 2 diabetes mellitus Status: Acute Qualifiers: Code(s): E11.9 - Type 2 diabetes mellitus without complications Type of Wound Date of Service: 01/23/18 Chief Complaint: Nonhealing wound status post surgical excision of necrotizing fasciitis left groin History of Wound: 46-year-old white male who presents to the wound healing center today with complaint of left groin ulceration status post surgical excision of necrotizing fasciitis. He is a past medical history which is significant for that of type 2 diabetes mellitus, gout, diabetic neuropathy, schizophrenia, bilateral lymphedema, and schizophrenia. The patient states that what initially started as a pimple in his left groin progressed to necrotizing fasciitis and he had to have this surgically debrided in April 2017. He was admitted to [facility] for 2 weeks and then [facility] for 6 weeks afterwards. He states that the groin ulcer which extends to his left lower abdomen has been slowly improving and he has been doing daily Aquacel AG dressings with an ABD for the drainage. He does state that he has had 3 wound vacs in the past which were unable to be utilized due to the location of his wound. He denies any foul-smelling discharge or systemic signs of infection at this time. The patient otherwise denies any fever, chills, nausea, vomiting, shortness of breath, chest pain or pressure, palpitations, orthopnea, syncope or presyncopal episodes. Progress of Wound: Wounds are stable at this time,more granular tissue present, wound beds are moist and clean and without signs of infection at this time, There was a bridge of skin that has epithelialized and now made into 2 separate wounds wound 1 left groin and wound to left lower abdominal fold. - Physical Exam Vital Signs Temp Pulse Resp BP 96.8 F L 96 18 145/98 H 01/23/18 13:03 01/23/18 13:03 01/23/18 13:03 01/23/18 13:03 General: Alert, Oriented x3, Cooperative, No apparent distress HEENT: Atraumatic Cardiovascular: Regular rate Abdomen: Obese Skin: Ulcer/ Wound - Left abdominal fold ulcer and left groin ulcer with adherent slough present, moist wound bed without any drainage at this time, no signs of obvious infection at this time. Neurological: Neuro grossly intact Psych/Mental Status: Normal Affect, Appropriate, Alert and oriented to time, place, person, mood and affect Debridement Note Post-Debridement Measurements/Treatment WC - Nurse 2 - General Ulcer CM Notes Start: 01/23/18 13:03 Freq: Status: Active Protocol: Activity Type Activity Date Activity User E-Sign Co-Sign Detail Recorded Client Recorded Date Recorded By Document 01/23/18 13:43 [id number] 01/23/18 13:55 01/23/18 13:43 Wound Center Nurse 2 #2 Left Abdominal Fold -Time 13:43 -Correct Patient Yes -Correct Side, Site, Position Yes -Correct Procedure Yes -Procedure Performed Yes -Type of Procedure Debridement -Clinical Debridement Subcutaneous -Post Debridement Size (cm) - Length 1.3 -Post Debridement Size (cm) - Width 5.9 -Post Debridement Size (cm) - Depth 0.1 -Total Square Cm 7.67 -Wound/Ulcer Outcome Not Healed -Ulcer Cleansing Rinsed/ Irrigated with Saline -Foul Odor after Cleansing No -Bioengineered Tissue Yes -Type of bioengineered Tissue [id number] -Expiration Date 07/13/20 -Product Lot Number [id number] -Percent Used 20 -Saline Lot Number [id number] -Bleeding Controlled with Pressure -Treatment Response Procedure Tolerated Well #1- LEFT GROIN- POST OP -Time 13:50 -Correct Patient Yes -Correct Side, Site, Position Yes -Correct Procedure Yes -Procedure Performed Yes -Type of Procedure Debridement -Clinical Debridement Subcutaneous -Post Debridement Size (cm) - Length 3.8 -Post Debridement Size (cm) - Width 16.4 -Post Debridement Size (cm) - Depth 0.1 -Total Square Cm 62.32 -Wound/Ulcer Outcome Not Healed -Ulcer Cleansing Rinsed/ Irrigated with Saline -Foul Odor after Cleansing No -Bioengineered Tissue Yes -Type of bioengineered Tissue [id number] -Expiration Date 07/13/20 -Product Lot Number [id number] -Percent Used 80 -Saline Lot Number [id number] -Bleeding Controlled with Pressure -Treatment Response Procedure Tolerated Well Pain Scale: 0-10 Numeric Is Patient Pain Free? Yes Wound debrided: Left abdominal fold ulcer Laterality: Left Type of Debridement: Excisional debridement Anesthesia Used: 5% Lidocaine Gel Depth: in the subcutaneous layer Percentage of wound debrided: 100 Instrument Used: 5mm curette Tissue Removed: Slough and devitalized tissue Severity: Fat Layer Exposed Amount of bleeding with debridement: Mild Bleeding Controlled with: Pressure Patient tolerated procedure well - Additional Wound Wound debrided: Left groin ulcer Type of Debridement: Excisional debridement Anesthesia Used: 5% Lidocaine Gel Depth: in the subcutaneous layer Percentage of wound debrided: 100 Instrument Used: 7mm curette Tissue Removed: Slough and devitalized tissue Severity: Fat Layer Exposed Amount of bleeding with debridement: Mild Bleeding Controlled with: Pressure Patient tolerated procedure: Patient tolerated procedure well Assessment/Plan Assessment: Nonhealing postsurgical wound left groin status post surgical exci silvino of necrotizing fasciitis. Bilateral lower extremity edema. Morbid obesity. Type 2 diabetes mellitus Plan: The patient was seen and examined at the wound center today and was updated on the plan of care. A subcutaneous debridement was performed today. The patient tolerated the procedure well. The patients wound care will consist of: Purapply AM was applied to left abdominal fold and groin ulcer, wound veil then applied and secured with steris to the left abdominal fold ulcer, 100% used with 0% wasted. Wound VAC was applied afterwards to the left groin ulcer. May use aquacell extra overtop of left abdominal fold ulcer if drainage occurs. KCI vac applied today and to be changed biweekly. Wound cultures were reviewed and negative. Baseline bloodwork reviewed which demonstrated a slightly low pre- albumin and patient was advised to use Glucerna or high-protein with meals. Previous records were requested for continuity of care. Patient educated on the importance of diet on wound healing and instructed to increase protein and vitamin C intake. Patient verbalized understanding. Patient will follow up at wound healing center in one week or sooner if needed. Plastic surgery consultation - no surgery indicated. Did discuss with patient the importance of blood sugar control in wound healing. This note was generated with [employer] software. It may contain incorrect words, spelling, and punctuation that were not noted in checking the note before signing. Code Visit code visit [id number]
[2018-01-30 14:17] VITALS: BP 135/87; PULSE 92; RESP 18; TEMP 35.5
--- NOTE | 2018-01-30 18:00 | PCM.WC.PN ---
(1) Skin ulcer of abdominal wall with fat layer exposed Status: Acute Code(s): L98.492 - Non-pressure chronic ulcer of skin of other sites with fat layer exposed Comment: left abdominal fold (2) Non-healing surgical wound of left groin Status: Acute Qualifiers: Code(s): T81.89XA - Other complications of procedures, not elsewhere classified, initial encounter (3) History of necrotising fasciitis Status: Acute Code(s): Z87.39 - Personal history of other diseases of the musculoskeletal system and connective tissue (4) Lymphedema of both lower extremities Status: Acute Code(s): I89.0 - Lymphedema, not elsewhere classified (5) Morbid obesity Status: Acute Code(s): E66.01 - Morbid (severe) obesity due to excess calories (6) Type 2 diabetes mellitus Status: Acute Qualifiers: Code(s): E11.9 - Type 2 diabetes mellitus without complications Type of Wound Date of Service: 01/30/18 Chief Complaint: Nonhealing wound status post surgical excision of necrotizing fasciitis left groin History of Wound: 46-year-old white male who presents to the wound healing center today with complaint of left groin ulceration status post surgical excision of necrotizing fasciitis. He is a past medical history which is significant for that of type 2 diabetes mellitus, gout, diabetic neuropathy, schizophrenia, bilateral lymphedema, and schizophrenia. The patient states that what initially started as a pimple in his left groin progressed to necrotizing fasciitis and he had to have this surgically debrided in April 2017. He was admitted to [facility] for 2 weeks and then [facility] for 6 weeks afterwards. He states that the groin ulcer which extends to his left lower abdomen has been slowly improving and he has been doing daily Aquacel AG dressings with an ABD for the drainage. He does state that he has had 3 wound vacs in the past which were unable to be utilized due to the location of his wound. He denies any foul-smelling discharge or systemic signs of infection at this time. The patient otherwise denies any fever, chills, nausea, vomiting, shortness of breath, chest pain or pressure, palpitations, orthopnea, syncope or presyncopal episodes. Progress of Wound: Wounds are stable at this time,more granular tissue present, wound beds are moist and clean and without signs of infection at this time, There was a bridge of skin that has epithelialized and now made into 2 separate wounds wound 1 left groin and wound to left lower abdominal fold. The patient does state that this past week he had difficulty keeping the wound VAC on after the pure apply was utilized, he states that he did better without the use of purapply under the vac. He continues to have moderate amount of serosanguineous drainage in the VAC. - Physical Exam Vital Signs Temp Pulse Resp BP 96 F L 92 18 135/87 H 01/30/18 14:17 01/30/18 14:17 01/30/18 14:17 01/30/18 14:17 General: Alert, Oriented x3, Cooperative, No apparent distress HEENT: Atraumatic Cardiovascular: Regular rate Abdomen: Obese Extremities: No clubbing, No cyanosis, No edema, Capillary Refill Less than 3 Seconds Skin: Ulcer/ Wound - Ulceration present left groin, slightly macerated edges, granular tissue present with slough adherent to the wound bed, ulceration present left abdominal fold with adherent slough, skin is somewhat erythematous where steris were previously applied. No signs of local or systemic infection. Neurological: Neuro grossly intact Psych/Mental Status: Normal Affect, Appropriate, Alert and oriented to time, place, person, mood and affect Debridement Note Post-Debridement Measurements/Treatment WC - Nurse 2 - General Ulcer CM Notes Start: 01/23/18 13:03 Freq: Status: Active Protocol: Activity Type Activity Date Activity User E-Sign Co-Sign Detail Recorded Client Recorded Date Recorded By Document 01/23/18 13:43 [id number] 01/23/18 13:55 Document 01/30/18 15:08 [id number] 01/30/18 15:33 01/23/18 01/30/18 13:43 15:08 Wound Center Nurse 2 #2 Left Abdominal Fold -Time 13:43 15:08 -Correct Patient Yes Yes -Correct Side, Site, Position Yes Yes -Correct Procedure Yes Yes -Procedure Performed Yes Yes -Type of Procedure Debridement Debridement -Clinical Debridement Subcutaneous Subcutaneous -Post Debridement Size (cm) - Length 1.3 1.2 -Post Debridement Size (cm) - Width 5.9 6.1 -Post Debridement Size (cm) - Depth 0.1 0.1 -Total Square Cm 7.67 7.32 -Wound/Ulcer Outcome Not Healed Not Healed -Ulcer Cleansing Rinsed/ Rinsed/ Irrigated with Irrigated with Saline Saline -Foul Odor after Cleansing No No -Bioengineered Tissue Yes Yes -Type of bioengineered Tissue [id number] -Expiration Date 07/13/20 07/11/20 -Product Lot Number [id number] -Percent Used 20 100 -Saline Lot Number [id number] -Topical Lidocaine (%) 4 -Lidocaine (ml) 10 -Bleeding Controlled with Pressure NA -Treatment Response Procedure Procedure Tolerated Well Tolerated Well #1- LEFT GROIN- POST OP -Time 13:50 15:09 -Correct Patient Yes Yes -Correct Side, Site, Position Yes Yes -Correct Procedure Yes Yes -Procedure Performed Yes Yes -Type of Procedure Debridement Debridement -Clinical Debridement Subcutaneous Subcutaneous -Post Debridement Size (cm) - Length 3.8 4.9 -Post Debridement Size (cm) - Width 16.4 18.1 -Post Debridement Size (cm) - Depth 0.1 0.1 -Total Square Cm 62.32 88.69 -Wound/Ulcer Outcome Not Healed Not Healed -Ulcer Cleansing Rinsed/ Rinsed/ Irrigated with Irrigated with Saline Saline -Foul Odor after Cleansing No No -Bioengineered Tissue Yes -Type of bioengineered Tissue [id number] -Expiration Date 07/13/20 -Product Lot Number [id number] -Percent Used 80 -Saline Lot Number [id number] -Topical Lidocaine (%) 4 -Lidocaine (ml) 15 -Bleeding Controlled with Pressure NA -Treatment Response Procedure Procedure Tolerated Well Tolerated Well Pain Scale: 0-10 Numeric Is Patient Pain Free? Yes Yes Wound debrided: Left groin ulcer Type of Debridement: Excisional debridement Anesthesia Used: 5% Lidocaine Gel Depth: in the subcutaneous layer Percentage of wound debrided: 100 Instrument Used: 7mm curette Tissue Removed: Slough and devitalized tissue Severity: Fat Layer Exposed Amount of bleeding with debridement: Mild Bleeding Controlled with: Pressure Patient tolerated procedure well - Additional Wound Wound debrided: Left abdominal fold ulcer Laterality: Left Type of Debridement: Excisional debridement Anesthesia Used: 5% Lidocaine Gel Depth: in the subcutaneous layer Percentage of wound debrided: 100 Instrument Used: 5mm curette Tissue Removed: Slough and devitalized tissue Severity: Fat Layer Exposed Amount of bleeding with debridement: Mild Bleeding Controlled with: Pressure Patient tolerated procedure: Patient tolerated procedure well Assessment/Plan Assessment: Nonhealing postsurgical wound left groin status post surgical excision of necrotizing fasciitis. Bilateral lower extremity edema. Morbid obesity. Type 2 diabetes mellitus Plan: The patient was seen and examined at the wound center today and was updated on the plan of care. A subcutaneous debridement was performed today. The patient tolerated the procedure well. The patients wound care will consist of: Purapply AM was applied to left abdomnimal fold ulcer, wound veil then applied and secured with steris to the left abdominal fold ulcer, 100% used with 0% wasted. Wound VAC was applied afterwards to the left groin ulcer. May use aquacell extra overtop of left abdominal fold ulcer if drainage occurs. KCI vac applied today and to be changed triweekly. Wound cultures were reviewed and negative. Baseline bloodwork reviewed which demonstrated a slightly low pre-albumin and patient was advised to use Glucerna or high-protein with meals. Previous records were requested for continuity of care. Patient educated on the importance of diet on wound healing and instructed to increase protein and vitamin C intake. Patient verbalized understanding. Patient will follow up at wound healing center in one week or sooner if needed. Plastic surgery consultation - no surgery indicated. Did discuss with patient the importance of blood sugar control in wound healing. This note was generated with [employer] software. It may contain incorrect words, spelling, and punctuation that were not noted in checking the note before signing. Code Visit 111xxx-113xx: 38161 Jessica subq tissue 20 sq cm/< 150xxx-152xx: [id number] Skin sub graft trnk/arm/leg Add On Codes: [id number] Jessica subq tissue add-on
--- NOTE | 2018-02-03 09:04 | PN.PCM_ITS ---
(1) Skin ulcer of abdominal wall with fat layer exposed Status: Acute Code(s): L98.492 - Non-pressure chronic ulcer of skin of other sites with fat layer exposed Comment: left abdominal fold (2) Non-healing surgical wound of left groin Status: Acute Qualifiers: Code(s): T81.89XA - Other complications of procedures, not elsewhere classified, initial encounter (3) History of necrotising fasciitis Status: Acute Code(s): Z87.39 - Personal history of other diseases of the musculoskeletal system and connective tissue (4) Lymphedema of both lower extremities Status: Acute Code(s): I89.0 - Lymphedema, not elsewhere classified (5) Morbid obesity Status: Acute Code(s): E66.01 - Morbid (severe) obesity due to excess calories (6) Type 2 diabetes mellitus Status: Acute Qualifiers: Code(s): E11.9 - Type 2 diabetes mellitus without complications Type of Wound Date of Service: 01/30/18 Chief Complaint: Nonhealing wound status post surgical excision of necrotizing fasciitis left groin History of Wound: 46-year-old white male who presents to the wound healing center today with complaint of left groin ulceration status post surgical excision of necrotizing fasciitis. He is a past medical history which is significant for that of type 2 diabetes mellitus, gout, diabetic neuropathy, schizophrenia, bilateral lymphedema, and schizophrenia. The patient states that what initially started as a pimple in his left groin progressed to necrotizing fasciitis and he had to have this surgically debrided in April 2017. He was admitted to [facility] for [facility] weeks and then [facility] for [facility] weeks afterwards. He states that the groin ulcer which extends to his left lower abdomen has been slowly improving and he has been doing daily Aquacel AG dressings with an ABD for the drainage. He does state that he has had 3 wound vacs in the past which were unable to be utilized due to the location of his wound. He denies any foul-smelling discharge or systemic signs of infection at this time. The patient otherwise denies any fever, chills, nausea, vomiting, shortness of breath, chest pain or pressure, palpitations, orthopnea, syncope or presyncopal episodes. Progress of Wound: Wounds are stable at this time,more granular tissue present, wound beds are moist and clean and without signs of infection at this time, There was a bridge of skin that has epithelialized and now made into 2 separate wounds wound 1 left groin and wound to left lower abdominal fold. The patient does state that this past week he had difficulty keeping the wound VAC on after the pure apply was utilized, he states that he did better without the use of purapply under the vac. He continues to have moderate amount of serosanguineous drainage in the VAC. - Physical Exam Vital Signs Temp Pulse Resp BP 96 F L 92 18 135/87 H 01/30/18 14:17 01/30/18 14:17 01/30/18 14:17 01/30/18 14:17 General: Alert, Oriented x3, Cooperative, No apparent distress HEENT: Atraumatic Cardiovascular: Regular rate Abdomen: Obese Extremities: No clubbing, No cyanosis, No edema, Capillary Refill Less than 3 Seconds Skin: Ulcer/ Wound - Ulceration present left groin, slightly macerated edges, granular tissue present with slough adherent to the wound bed, ulceration present left abdominal fold with adherent slough, skin is somewhat erythematous where steris were previously applied. No signs of local or systemic infection. Neurological: Neuro grossly intact Psych/Mental Status: Normal Affect, Appropriate, Alert and oriented to time, place, person, mood and affect Debridement Note Post-Debridement Measurements/Treatment WC - Nurse 2 - General Ulcer CM Notes Start: 01/23/18 13:03 Freq: Status: Active Protocol: Activity Type Activity Date Activity User E-Sign Co-Sign Detail Recorded Client Recorded Date Recorded By Document 01/23/18 13:43 [id number] 01/23/18 13:55 Document 01/30/18 15:08 [id number] 01/30/18 15:33 01/23/18 01/30/18 13:43 15:08 Wound Center Nurse 2 #2 Left Abdominal Fold -Time 13:43 15:08 -Correct Patient Yes Yes -Correct Side, Site, Position Yes Yes -Correct Procedure Yes Yes -Procedure Performed Yes Yes -Type of Procedure Debridement Debridement -Clinical Debridement Subcutaneous Subcutaneous -Post Debridement Size (cm) - Length 1.3 1.2 -Post Debridement Size (cm) - Width 5.9 6.1 -Post Debridement Size (cm) - Depth 0.1 0.1 -Total Square Cm 7.67 7.32 -Wound/Ulcer Outcome Not Healed Not Healed -Ulcer Cleansing Rinsed/ Rinsed/ Irrigated with Irrigated with Saline Saline -Foul Odor after Cleansing No No -Bioengineered Tissue Yes Yes -Type of bioengineered Tissue [id number] -Expiration Date 07/13/20 07/11/20 -Product Lot Number [id number] -Percent Used 20 100 -Saline Lot Number [id number] -Topical Lidocaine (%) 4 -Lidocaine (ml) 10 -Bleeding Controlled with Pressure NA -Treatment Response Procedure Procedure Tolerated Well Tolerated Well #1- LEFT GROIN- POST OP -Time 13:50 15:09 -Correct Patient Yes Yes -Correct Side, Site, Position Yes Yes -Correct Procedure Yes Yes -Procedure Performed Yes Yes -Type of Procedure Debridement Debridement -Clinical Debridement Subcutaneous Subcutaneous -Post Debridement Size (cm) - Length 3.8 4.9 -Post Debridement Size (cm) - Width 16.4 18.1 -Post Debridement Size (cm) - Depth 0.1 0.1 -Total Square Cm 62.32 88.69 -Wound/Ulcer Outcome Not Healed Not Healed -Ulcer Cleansing Rinsed/ Rinsed/ Irrigated with Irrigated with Saline Saline -Foul Odor after Cleansing No No -Bioengineered Tissue Yes -Type of bioengineered Tissue [id number] -Expiration Date 07/13/20 -Product Lot Number [id number] -Percent Used 80 -Saline Lot Number [id number] -Topical Lidocaine (%) 4 -Lidocaine (ml) 15 -Bleeding Controlled with Pressure NA -Treatment Response Procedure Procedure Tolerated Well Tolerated Well Pain Scale: 0-10 Numeric Is Patient Pain Free? Yes Yes Wound debrided: Left groin ulcer Type of Debridement: Excisional debridement Anesthesia Used: 5% Lidocaine Gel Depth: in the subcutaneous layer Percentage of wound debrided: 100 Instrument Used: 7mm curette Tissue Removed: Slough and devitalized tissue Severity: Fat Layer Exposed Amount of bleeding with debridement: Mild Bleeding Controlled with: Pressure Patient tolerated procedure well - Additional Wound Wound debrided: Left abdominal fold ulcer Laterality: Left Type of Debridement: Excisional debridement Anesthesia Used: 5% Lidocaine Gel Depth: in the subcutaneous layer Percentage of wound debrided: 100 Instrument Used: 5mm curette Tissue Removed: Slough and devitalized tissue Severity: Fat Layer Exposed Amount of bleeding with debridement: Mild Bleeding Controlled with: Pressure Patient tolerated procedure: Patient tolerated procedure well Assessment/Plan Assessment: Nonhealing postsurgical wound left groin status post surgical excision of necrotizing fasciitis. Bilateral lower extremity edema. Morbid obesity. Type 2 diabetes mellitus Plan: The patient was seen and examined at the wound center today and was updated on the plan of care. A subcutaneous debridement was performed today. The patient tolerated the procedure well. The patients wound care will consist of: Purapply AM was applied to left abdomnimal fold ulcer, wound veil then applied and secured with steris to the left abdominal fold ulcer, 100% used with 0% wasted. Wound VAC was applied afterwards to the left groin ulcer. May use aquacell extra overtop of left abdominal fold ulcer if drainage occurs. KCI vac applied today and to be changed triweekly. Wound cultures were reviewed and negative. Baseline bloodwork reviewed which demonstrated a slightly low pre- albumin and patient was advised to use Glucerna or high-protein with meals. Previous records were requested for continuity of care. Patient educated on the importance of diet on wound healing and instructed to increase protein and vitamin C intake. Patient verbalized understanding. Patient will follow up at wound healing center in one week or sooner if needed. Plastic surgery consultation - no surgery indicated. Did discuss with patient the importance of blood sugar control in wound healing. This note was generated with [employer] software. It may contain incorrect words, spelling, and punctuation that were not noted in checking the note before signing. Code Visit 111xxx-113xx: [id number] Jessica subq tissue 20 sq cm/< 150xxx-152xx: [id number] Skin sub graft trnk/arm/leg Add On Codes: [id number] Jessica subq tissue add-on
[2018-02-13 14:37] VITALS: BP 134/76; PULSE 94; RESP 16; TEMP 36.7
--- NOTE | 2018-02-13 19:01 | PCM.WC.PN ---
(1) Skin ulcer of abdominal wall with fat layer exposed Status: Acute Code(s): L98.492 - Non-pressure chronic ulcer of skin of other sites with fat layer exposed Comment: left abdominal fold (2) Non-healing surgical wound of left groin Status: Acute Qualifiers: Code(s): T81.89XA - Other complications of procedures, not elsewhere classified, initial encounter (3) History of necrotising fasciitis Status: Acute Code(s): Z87.39 - Personal history of other diseases of the musculoskeletal system and connective tissue (4) Lymphedema of both lower extremities Status: Acute Code(s): I89.0 - Lymphedema, not elsewhere classified (5) Morbid obesity Status: Acute Code(s): E66.01 - Morbid (severe) obesity due to excess calories (6) Type 2 diabetes mellitus Status: Acute Qualifiers: Code(s): E11.9 - Type 2 diabetes mellitus without complications Type of Wound Date of Service: 02/13/18 Chief Complaint: Nonhealing wound status post surgical excision of necrotizing fasciitis left groin History of Wound: 46-year-old white male who presents to the wound healing center today with complaint of left groin ulceration status post surgical excision of necrotizing fasciitis. He is a past medical history which is significant for that of type 2 diabetes mellitus, gout, diabetic neuropathy, schizophrenia, bilateral lymphedema, and schizophrenia. The patient states that what initially started as a pimple in his left groin progressed to necrotizing fasciitis and he had to have this surgically debrided in April 2017. He was admitted to [facility] weeks and then [facility] for [facility] afterwards. He states that the groin ulcer which extends to his left lower abdomen has been slowly improving and he has been doing daily Aquacel AG dressings with an ABD for the drainage. He does state that he has had 3 wound vacs in the past which were unable to be utilized due to the location of his wound. He denies any foul-smelling discharge or systemic signs of infection at this time. The patient otherwise denies any fever, chills, nausea, vomiting, shortness of breath, chest pain or pressure, palpitations, orthopnea, syncope or presyncopal episodes. Progress of Wound: Wounds are stable at this time,more granular tissue present, wound beds are moist and clean and without signs of gross infection at this time, There was a bridge of skin that has epithelialized and now made into 2 separate wounds wound 1 left groin and wound to left lower abdominal fold. The patient does state that this past week he kept the wound VAC on the etire time and the purapply on the left abdominal fold on for 8 days. Continues to have moderate amount of serosanguineous drainage in the VAC. The patient otherwise denies any fever, chills, nausea, vomiting, shortness of breath, chest pain or pressure, palpitations, orthopnea, lower extremity edema, syncope or presyncopal episodes. - Physical Exam Vital Signs Temp Pulse Resp BP 98.1 F 94 16 134/76 H 02/13/18 14:37 02/13/18 14:37 02/13/18 14:37 02/13/18 14:37 General: Alert, Oriented x3, Cooperative, No apparent distress HEENT: Atraumatic Cardiovascular: Regular rate Abdomen: Obese Extremities: No clubbing, No cyanosis, No edema Skin: Ulcer/ Wound - Left abdominal fold and left groin ulcerations with some adherent slough to wound bed, wound beds are granular without any signs of infection, moderate amount of serous drainage. No erythema or warmth or purulent drainage or malodor at this time Neurological: Neuro grossly intact Psych/Mental Status: Normal Affect, Appropriate, Alert and oriented to time, place, person, mood and affect Debridement Note Post-Debridement Measurements/Treatment WC - Nurse 2 - General Ulcer CM Notes Start: 01/23/18 13:03 Freq: Status: Active Protocol: Activity Type Activity Date Activity User E-Sign Co-Sign Detail Recorded Client Recorded Date Recorded By Document 01/23/18 13:43 CS [id number] 01/23/18 13:55 CS Document 01/30/18 15:08 JS [id number] 01/30/18 15:33 JS Document 02/13/18 15:35 DV [id number] 02/13/18 15:50 DV 01/23/18 01/30/18 02/13/18 13:43 15:08 15:35 Wound Center Nurse 2 #2 Left Abdominal Fold -Time 13:43 15:08 15:46 -Correct Patient Yes Yes Yes -Correct Side, Site, Position Yes Yes Yes -Correct Procedure Yes Yes Yes -Procedure Performed Yes Yes Yes -Type of Procedure Debridement Debridement Debridement -Clinical Debridement Subcutaneous Subcutaneous Subcutaneous -Post Debridement Size (cm) - Length 1.3 1.2 1.0 -Post Debridement Size (cm) - Width 5.9 6.1 6.3 -Post Debridement Size (cm) - Depth 0.1 0.1 0.1 -Total Square Cm 7.67 7.32 6.30 -Wound/Ulcer Outcome Not Healed Not Healed Not Healed -Ulcer Cleansing Rinsed/ Rinsed/ Rinsed/ Irrigated with Irrigated with Irrigated with Saline Saline Saline -Foul Odor after Cleansing No No No -Bioengineered Tissue Yes Yes Yes -Type of bioengineered Tissue [id number] -Expiration Date 07/13/20 07/11/20 07/25/20 -Product Lot Number [id number] -Percent Used 20 100 30 -Saline Lot Number [id number] -Topical Lidocaine (%) 4 4 -Lidocaine (ml) 10 -Bleeding Controlled with Pressure NA Pressure -Treatment Response Procedure Procedure Procedure Tolerated Well Tolerated Well Tolerated Well #1- LEFT GROIN- POST OP -Time 13:50 15:09 15:48 -Correct Patient Yes Yes Yes -Correct Side, Site, Position Yes Yes Yes -Correct Procedure Yes Yes Yes -Procedure Performed Yes Yes Yes -Type of Procedure Debridement Debridement Debridement -Clinical Debridement Subcutaneous Subcutaneous Subcutaneous -Post Debridement Size (cm) - Length 3.8 4.9 4.3 -Post Debridement Size (cm) - Width 16.4 18.1 16.5 -Post Debridement Size (cm) - Depth 0.1 0.1 0.1 -Total Square Cm 62.32 88.69 70.95 -Wound/Ulcer Outcome Not Healed Not Healed Not Healed -Ulcer Cleansing Rinsed/ Rinsed/ Rinsed/ Irrigated with Irrigated with Irrigated with Saline Saline Saline -Foul Odor after Cleansing No No No -Bioengineered Tissue Yes Yes -Type of bioengineered Tissue [id number] -Expiration Date 07/13/20 07/25/20 -Product Lot Number [id number] -Percent Used 80 70 -Saline Lot Number [id number] -Topical Lidocaine (%) 4 4 -Lidocaine (ml) 15 -Bleeding Controlled with Pressure NA Pressure -Treatment Response Procedure Procedure Procedure Tolerated Well Tolerated Well Tolerated Well Pain Scale: 0-10 Numeric Is Patient Pain Free? Yes Yes Yes Wound debrided: Left abdominal fold ulcer Type of Debridement: Excisional debridement Anesthesia Used: 5% Lidocaine Gel Depth: in the subcutaneous layer Percentage of wound debrided: 100 Instrument Used: 5mm curette Tissue Removed: Slough and devitalized tissue Severity: Fat Layer Exposed Amount of bleeding with debridement: Mild Bleeding Controlled with: Pressure Patient tolerated procedure well Pure apply applied after debridement - Additional Wound Wound debrided: Left groin ulcer Laterality: Left Type of Debridement: Excisional debridement Anesthesia Used: 5% Lidocaine Gel Depth: in the subcutaneous layer Percentage of wound debrided: 100 Instrument Used: 7mm curette Tissue Removed: Slough and devitalized tissue Severity: Fat Layer Exposed Amount of bleeding with debridement: Mild Bleeding Controlled with: Pressure Patient tolerated procedure: Patient tolerated procedure well - Pure apply applied after debridement Assessment/Plan Assessment: Nonhealing postsurgical wound left groin status post surgical excision of necrotizing fasciitis. Bilateral lower extremity edema. Morbid obesity. Type 2 diabetes mellitus Plan: The patient was seen and examined at the wound center today and was updated on the plan of care. A subcutaneous debridement was performed today. The patient tolerated the procedure well. The patients wound care will consist of: Purapply AM was applied to left abdomnimal fold ulcer and secured with steris to the left abdominal fold ulcer, Aquacel extra was placed over top,Purapply AM applied to left groin ulcer and wound VAC placed over top, 100% used with 0% wasted. Wound VAC was applied afterwards to the left groin ulcer at 150 mmHg. KCI vac applied today and to be changed biweekly. Wound cultures were reviewed and negative. Baseline bloodwork reviewed which demonstrated a slightly low pre-albumin and patient was advised to use Glucerna or high-protein with meals. Previous records were requested for continuity of care. Patient educated on the importance of diet on wound healing and instructed to increase protein and vitamin C intake. Patient verbalized understanding. Patient will follow up at wound healing center in one week or sooner if needed. Plastic surgery consultation - no surgery indicated. Did discuss with patient the importance of blood sugar control in wound healing. This note was generated with [employer] software. It may contain incorrect words, spelling, and punctuation that were not noted in checking the note before signing. Code Visit billing code [id number]
--- NOTE | 2018-02-19 11:06 | PN.PCM_ITS ---
(1) Skin ulcer of abdominal wall with fat layer exposed Status: Acute Code(s): L98.492 - Non-pressure chronic ulcer of skin of other sites with fat layer exposed Comment: left abdominal fold (2) Non-healing surgical wound of left groin Status: Acute Qualifiers: Code(s): T81.89XA - Other complications of procedures, not elsewhere classified, initial encounter (3) History of necrotising fasciitis Status: Acute Code(s): Z87.39 - Personal history of other diseases of the musculoskeletal system and connective tissue (4) Lymphedema of both lower extremities Status: Acute Code(s): I89.0 - Lymphedema, not elsewhere classified (5) Morbid obesity Status: Acute Code(s): E66.01 - Morbid (severe) obesity due to excess calories (6) Type 2 diabetes mellitus Status: Acute Qualifiers: Code(s): E11.9 - Type 2 diabetes mellitus without complications Type of Wound Date of Service: 02/13/18 Chief Complaint: Nonhealing wound status post surgical excision of necrotizing fasciitis left groin History of Wound: 46-year-old white male who presents to the wound healing center today with complaint of left groin ulceration status post surgical excision of necrotizing fasciitis. He is a past medical history which is significant for that of type 2 diabetes mellitus, gout, diabetic neuropathy, schizophrenia, bilateral lymphedema, and schizophrenia. The patient states that what initially started as a pimple in his left groin progressed to necrotizing fasciitis and he had to have this surgically debrided in April 2017. He was admitted to [facility] for 2 weeks and then [facility] for 6 weeks afterwards. He states that the groin ulcer which extends to his left lower abdomen has been slowly improving and he has been doing daily Aquacel AG dressings with an ABD for the drainage. He does state that he has had 3 wound vacs in the past which were unable to be utilized due to the location of his wound. He denies any foul-smelling discharge or systemic signs of infection at this time. The patient otherwise denies any fever, chills, nausea, vomiting, shortness of breath, chest pain or pressure, palpitations, orthopnea, syncope or presyncopal episodes. Progress of Wound: Wounds are stable at this time,more granular tissue present, wound beds are moist and clean and without signs of gross infection at this time, There was a bridge of skin that has epithelialized and now made into 2 separate wounds wound 1 left groin and wound to left lower abdominal fold. The patient does state that this past week he kept the wound VAC on the etire time and the purapply on the left abdominal fold on for 8 days. Continues to have moderate amount of serosanguineous drainage in the VAC. The patient otherwise denies any fever, chills, nausea, vomiting, shortness of breath, chest pain or pressure, palpitations, orthopnea, lower extremity edema, syncope or presyncopal episodes. - Physical Exam Vital Signs Temp Pulse Resp BP 98.1 F 94 16 134/76 H 02/13/18 14:37 02/13/18 14:37 02/13/18 14:37 02/13/18 14:37 General: Alert, Oriented x3, Cooperative, No apparent distress HEENT: Atraumatic Cardiovascular: Regular rate Abdomen: Obese Extremities: No clubbing, No cyanosis, No edema Skin: Ulcer/ Wound - Left abdominal fold and left groin ulcerations with some adherent slough to wound bed, wound beds are granular without any signs of infection, moderate amount of serous drainage. No erythema or warmth or purulent drainage or malodor at this time Neurological: Neuro grossly intact Psych/Mental Status: Normal Affect, Appropriate, Alert and oriented to time, place, person, mood and affect Debridement Note Post-Debridement Measurements/Treatment WC - Nurse 2 - General Ulcer CM Notes Start: 01/23/18 13:03 Freq: Status: Active Protocol: Activity Type Activity Date Activity User E-Sign Co-Sign Detail Recorded Client Recorded Date Recorded By Document 01/23/18 13:43 CS [id number] 01/23/18 13:55 CS Document 01/30/18 15:08 JS [id number] 01/30/18 15:33 JS Document 02/13/18 15:35 DV [id number] 02/13/18 15:50 DV 01/23/18 01/30/18 02/13/18 13:43 15:08 15:35 Wound Center Nurse 2 #2 Left Abdominal Fold -Time 13:43 15:08 15:46 -Correct Patient Yes Yes Yes -Correct Side, Site, Position Yes Yes Yes -Correct Procedure Yes Yes Yes -Procedure Performed Yes Yes Yes -Type of Procedure Debridement Debridement Debridement -Clinical Debridement Subcutaneous Subcutaneous Subcutaneous -Post Debridement Size (cm) - Length 1.3 1.2 1.0 -Post Debridement Size (cm) - Width 5.9 6.1 6.3 -Post Debridement Size (cm) - Depth 0.1 0.1 0.1 -Total Square Cm 7.67 7.32 6.30 -Wound/Ulcer Outcome Not Healed Not Healed Not Healed -Ulcer Cleansing Rinsed/ Rinsed/ Rinsed/ Irrigated with Irrigated with Irrigated with Saline Saline Saline -Foul Odor after Cleansing No No No -Bioengineered Tissue Yes Yes Yes -Type of bioengineered Tissue [id number] -Expiration Date 07/13/20 07/11/20 07/25/20 -Product Lot Number [id number] -Percent Used 20 100 30 -Saline Lot Number [id number] -Topical Lidocaine (%) 4 4 -Lidocaine (ml) 10 -Bleeding Controlled with Pressure NA Pressure -Treatment Response Procedure Procedure Procedure Tolerated Well Tolerated Well Tolerated Well #1- LEFT GROIN- POST OP -Time 13:50 15:09 15:48 -Correct Patient Yes Yes Yes -Correct Side, Site, Position Yes Yes Yes -Correct Procedure Yes Yes Yes -Procedure Performed Yes Yes Yes -Type of Procedure Debridement Debridement Debridement -Clinical Debridement Subcutaneous Subcutaneous Subcutaneous -Post Debridement Size (cm) - Length 3.8 4.9 4.3 -Post Debridement Size (cm) - Width 16.4 18.1 16.5 -Post Debridement Size (cm) - Depth 0.1 0.1 0.1 -Total Square Cm 62.32 88.69 70.95 -Wound/Ulcer Outcome Not Healed Not Healed Not Healed -Ulcer Cleansing Rinsed/ Rinsed/ Rinsed/ Irrigated with Irrigated with Irrigated with Saline Saline Saline -Foul Odor after Cleansing No No No -Bioengineered Tissue Yes Yes -Type of bioengineered Tissue [id number] -Expiration Date 07/13/20 07/25/20 -Product Lot Number [id number] -Percent Used 80 70 -Saline Lot Number [id number] -Topical Lidocaine (%) 4 4 -Lidocaine (ml) 15 -Bleeding Controlled with Pressure NA Pressure -Treatment Response Procedure Procedure Procedure Tolerated Well Tolerated Well Tolerated Well Pain Scale: 0-10 Numeric Is Patient Pain Free? Yes Yes Yes Wound debrided: Left abdominal fold ulcer Type of Debridement: Excisional debridement Anesthesia Used: 5% Lidocaine Gel Depth: in the subcutaneous layer Percentage of wound debrided: 100 Instrument Used: 5mm curette Tissue Removed: Slough and devitalized tissue Severity: Fat Layer Exposed Amount of bleeding with debridement: Mild Bleeding Controlled with: Pressure Patient tolerated procedure well Pure apply applied after debridement - Additional Wound Wound debrided: Left groin ulcer Laterality: Left Type of Debridement: Excisional debridement Anesthesia Used: 5% Lidocaine Gel Depth: in the subcutaneous layer Percentage of wound debrided: 100 Instrument Used: 7mm curette Tissue Removed: Slough and devitalized tissue Severity: Fat Layer Exposed Amount of bleeding with debridement: Mild Bleeding Controlled with: Pressure Patient tolerated procedure: Patient tolerated procedure well - Pure apply applied after debridement Assessment/Plan Assessment: Nonhealing postsurgical wound left groin status post surgical excision of necrotizing fasciitis. Bilateral lower extremity edema. Morbid obesity. Type 2 diabetes mellitus Plan: The patient was seen and examined at the wound center today and was updated on the plan of care. A subcutaneous debridement was performed today. The patient tolerated the procedure well. The patients wound care will consist of: Purapply AM was applied to left abdomnimal fold ulcer and secured with steris to the left abdominal fold ulcer, Aquacel extra was placed over top,Purapply AM applied to left groin ulcer and wound VAC placed over top, 100% used with 0% wasted. Wound VAC was applied afterwards to the left groin ulcer at 150 mmHg. KCI vac applied today and to be changed biweekly. Wound cultures were reviewed and negative. Baseline bloodwork reviewed which demonstrated a slightly low pre- albumin and patient was advised to use Glucerna or high-protein with meals. Previous records were requested for continuity of care. Patient educated on the importance of diet on wound healing and instructed to increase protein and vitamin C intake. Patient verbalized understanding. Patient will follow up at wound healing center in one week or sooner if needed. Plastic surgery consultation - no surgery indicated. Did discuss with patient the importance of blood sugar control in wound healing. This note was generated with [employer] software. It may contain incorrect words, spelling, and punctuation that were not noted in checking the note before signing. Code Visit billing code [id number]
== END 2018-02-19 23:59 ==
LOC: WC 14:15
PROVIDERS: Family Provider Family Medicine; PCP Family Medicine; Visit Provider Nurse Practitioner Family
DX: E11.622 Type 2 diabetes mellitus with other skin ulcer (principal); L98.492 Non-pressure chronic ulcer of skin of other sites with fat layer exposed; E66.01 Morbid (severe) obesity due to excess calories; Z68.43 Body mass index [BMI] 50.0-59.9, adult; Z71.3 Dietary counseling and surveillance; E11.40 Type 2 diabetes mellitus with diabetic neuropathy, unspecified; R60.0 Localized edema; I89.0 Lymphedema, not elsewhere classified
CPT/HCPCS: 11042; 11045; 15271; 15273; 15274; 97606; Q4172

== ENCOUNTER 2018-03-20 14:30 | Outpatient (RCR) | payer MEDICARE, MEDICAID, SELFPAY ==
[2018-02-20 00:52] VITALS: BP 134/76; PULSE 94; RESP 16; TEMP 36.7
[2018-02-20 12:33] VITALS: BP 144/81; PULSE 86; RESP 18; TEMP 36
[2018-02-20 15:13] LABS: Absolute Lymphocyte Count 1.73 X10^3/ul (0.83-4.51); Basophil# 0.01 X10^3/uL; Basophil% 0.1 % (0-1); Eosinophil# 0.12 X10^3/uL; Eosinophils% 1.2 % (0-5); Hematocrit 42.2 % (40-54); Hemoglobin 13.2 g/dl (13.0-16.5); Lymphocyte # 1.73 X10^3/ul (4.0); Lymphocyte % 16.8 % (19-41); Mean Corp Hgb Conc 31.3 g/gl (32-36); Mean Corpuscular Hgb 25.1 pg (27.0-32.0); Mean Corpuscular Volume 80.4 fL (80-94); Mean Platelet Vol. 9.2 fl (6.2-12.0); Monocyte% 3.9 % (0-10); Neutrophil # 7.98 X10^3/uL (2.7-7.7); Neutrophil % 77.7 % (47-70); Platelet Count 376 K/mm3 (150-450); RBC Distribution Width CV 15.5 % (11.6-14.6); RBC Distribution Width SD 45.3 fl (35.1-43.9); Red Blood Count 5.25 M/mm3 (4.6-6.2); White Blood Count 10.3 K/mm3 (4.4-11.0)
[2018-02-20 15:16] LABS: POSITIVE COUNT NO; POSITIVE DIFFERENTIAL NO; POSITIVE MORPHOLOGY NO
[2018-02-20 15:18] LABS: Hemoglobin A1c 6.1 % (4.2-6.3)
[2018-02-20 15:29] LABS: Erythrocyte Sedimentation Rate 48 mm/hr (0-15)
[2018-02-20 15:39] LABS: ALB/GLOB Ratio 0.6 RATIO (0.9-2.4); AST(SGOT) 9 U/L (15-37); Alanine Aminotransfer ALT/SGPT 23 U/L (16-61); Albumin, Serum 3.3 g/dL (3.2-5.0); Alkaline Phosphatase 98 U/L (45-117); Anion Gap 10 (5-15); BUN 16 mg/dL (7-18); Calcium,Total 9.1 mg/dL (8.5-10.1); Chloride 102 mmol/L (98-107); Creatinine, Serum 0.94 mg/dL (0.70-1.30); EST Glomerular Filtration Rate 92 mL/min (>60); Est Glom Filt Rate - Afr Amer 111 mL/min (>60); Estimated Creatinine Clearance 108.92 ml/min; Globulin 5.2 g/dL (2.2-4.2); Glucose 89 mg/dL (74-106); Potassium 3.8 mmol/L (3.5-5.1); Prealbumin 20.8 mg/dL (20.0-40.0); Protein, Total 8.5 g/dL (6.4-8.2); Sodium Level 139 mmol/L (136-145)
--- NOTE | 2018-02-20 19:52 | PCM.WC.PN ---
(1) Non-healing surgical wound of left groin Status: Acute Qualifiers: Code(s): T81.89XA - Other complications of procedures, not elsewhere classified, initial encounter (2) Skin ulcer of abdominal wall with fat layer exposed Status: Acute Code(s): L98.492 - Non-pressure chronic ulcer of skin of other sites with fat layer exposed Comment: left abdominal fold (3) History of necrotising fasciitis Status: Acute Code(s): Z87.39 - Personal history of other diseases of the musculoskeletal system and connective tissue (4) Lymphedema of both lower extremities Status: Acute Code(s): I89.0 - Lymphedema, not elsewhere classified (5) Morbid obesity Status: Acute Code(s): E66.01 - Morbid (severe) obesity due to excess calories (6) Type 2 diabetes mellitus Status: Acute Qualifiers: Code(s): E11.9 - Type 2 diabetes mellitus without complications Type of Wound Date of Service: 02/20/18 Chief Complaint: Nonhealing wound status post surgical excision of necrotizing fasciitis left groin History of Wound: 46-year-old white male who presents to the wound healing center today with complaint of left groin ulceration status post surgical excision of necrotizing fasciitis. He is a past medical history which is significant for that of type 2 diabetes mellitus, gout, diabetic neuropathy, schizophrenia, bilateral lymphedema, and schizophrenia. The patient states that what initially started as a pimple in his left groin progressed to necrotizing fasciitis and he had to have this surgically debrided in April 2017. He was admitted to [facility] for 2 weeks and then [facility] for 6 weeks afterwards. He states that the groin ulcer which extends to his left lower abdomen has been slowly improving and he has been doing daily Aquacel AG dressings with an ABD for the drainage. He does state that he has had 3 wound vacs in the past which were unable to be utilized due to the location of his wound. He denies any foul-smelling discharge or systemic signs of infection at this time. The patient otherwise denies any fever, chills, nausea, vomiting, shortness of breath, chest pain or pressure, palpitations, orthopnea, syncope or presyncopal episodes. Progress of Wound: Wounds are stable at this time, slight surrounding both wounds are somewhat excoriated (patient states that this is due to the drainage leaking from his wound VAC that would not seal right secondary to the purapply application), wound beds are moist and clean and without signs of gross infection at this time, There was a bridge of skin that has epithelialized and now made into 2 separate wounds wound 1 left groin and wound to left lower abdominal fold. This past week he kept the wound VAC on the entire time however had a lot of drainage and the purapply on the left abdominal fold only stayed on for 4 days days. Continues to have moderate amount of serosanguineous drainage in the VAC. The patient otherwise denies any fever, chills, nausea, vomiting, shortness of breath, chest pain or pressure, palpitations, orthopnea, lower extremity edema, syncope or presyncopal episodes. - Physical Exam Vital Signs Temp Pulse Resp BP 96.8 F L 86 18 144/81 H 02/20/18 12:33 02/20/18 12:33 02/20/18 12:33 02/20/18 12:33 General: Alert, Oriented x3, Cooperative, No apparent distress HEENT: Atraumatic Oral: Moist Mucosa Cardiovascular: Regular rate Abdomen: Obese Extremities: Edema - Generalized bilateral lower extremity edema Skin: Ulcer/ Wound - Abdominal fold ulcer of the left with adherent slough and devitalized tissue, surrounding tissue intact however excoriated due to drainage from the VAC, left groin ulceration with adherent slough present, no signs of infection at this time. Still having moderate amount of serosanguineous Neurological: Neuro grossly intact Psych/Mental Status: Normal Affect, Appropriate, Alert and oriented to time, place, person, mood and affect Debridement Note Post-Debridement Measurements/Treatment WC - Nurse 2 - General Ulcer CM Notes Start: 02/20/18 12:33 Freq: Status: Active Protocol: Activity Type Activity Date Activity User E-Sign Co-Sign Detail Recorded Client Recorded Date Recorded By Document 02/20/18 13:48 [id number] 02/20/18 13:50 TM 02/20/18 13:48 Wound Center Nurse 2 #2 Left Abdominal Fold -Time 13:48 -Correct Patient Yes -Correct Side, Site, Position Yes -Correct Procedure Yes -Procedure Performed Yes -Type of Procedure Debridement -Clinical Debridement Subcutaneous -Post Debridement Size (cm) - Length 5.9 -Post Debridement Size (cm) - Width 0.9 -Post Debridement Size (cm) - Depth 0.1 -Total Square Cm 5.31 -Wound/Ulcer Outcome Not Healed -Ulcer Cleansing Rinsed/ Irrigated with Saline -Foul Odor after Cleansing No -Bioengineered Tissue No -Type of bioengineered Tissue [id number] -Expiration Date 04/23/20 -Product Lot Number [id number] -Percent Used 100 -Saline Lot Number [id number] -Topical Lidocaine (%) 4 -Bleeding Controlled with Pressure -Treatment Response Procedure Tolerated Well #1- LEFT GROIN- POST OP -Time 13:49 -Correct Patient Yes -Correct Side, Site, Position Yes -Correct Procedure Yes -Procedure Performed Yes -Type of Procedure Debridement -Clinical Debridement Subcutaneous -Post Debridement Size (cm) - Length 4.6 -Post Debridement Size (cm) - Width 16.0 -Post Debridement Size (cm) - Depth 0.1 -Total Square Cm 73.60 -Wound/Ulcer Outcome Not Healed -Ulcer Cleansing Rinsed/ Irrigated with Saline -Foul Odor after Cleansing No -Bioengineered Tissue No -Bleeding Controlled with Pressure -Treatment Response Procedure Tolerated Well Pain Scale: 0-10 Numeric Is Patient Pain Free? Yes Wound debrided: Left abdominal fold ulcer Laterality: Left Type of Debridement: Excisional debridement Anesthesia Used: 5% Lidocaine Gel Depth: in the subcutaneous layer Percentage of wound debrided: 100 Instrument Used: 7mm curette Tissue Removed: Slough and devitalized tissue Severity: Fat Layer Exposed Amount of bleeding with debridement: Mild Bleeding Controlled with: Pressure Patient tolerated procedure well - Additional Wound Wound debrided: Left groin nonhealing ulcer status postSurgical removal necrotizing fasci Laterality: Left Type of Debridement: Excisional debridement Anesthesia Used: 5% Lidocaine Gel Depth: in the subcutaneous layer Percentage of wound debrided: 100 Instrument Used: 7mm curette Tissue Removed: Slough and devitalized tissue Severity: Fat Layer Exposed Amount of bleeding with debridement: Mild Bleeding Controlled with: Pressure Patient tolerated procedure: Patient tolerated procedure well Assessment/Plan Assessment: Nonhealing postsurgical wound left groin status post surgical excision of necrotizing fasciitis. Bilateral lower extremity edema. Morbid obesity. Type 2 diabetes mellitus Plan: The patient was seen and examined at the wound center today and was updated on the plan of care. A subcutaneous debridement was performed today. The patient tolerated the procedure well. The patients wound care will consist of: Purapply AM was applied to left abdomnimal fold ulcer and secured with steris to the left abdominal fold ulcer, Aquacel extra was placed over top, wound VAC to left groin ulcer at 175 mmHg. KCI vac applied today and to be changed triweekly. Wound cultures were reviewed and negative. Baseline bloodwork reviewed which demonstrated a slightly low pre-albumin and patient was advised to use Glucerna or high-protein with meals. Will recheck baseline lab work given the delayed wound healing and will also recheck A1c. Previous records were requested for continuity of care. Patient educated on the importance of diet on wound healing and instructed to increase protein and vitamin C intake. Patient verbalized understanding. Patient will follow up at wound healing center in one week or sooner if needed. Plastic surgery consultation - no surgery indicated. Did discuss with patient the importance of blood sugar control in wound healing. This note was generated with [employer] dictation software. It may contain incorrect words, spelling, and punctuation that were not noted in checking the note before signing. Code Visit [id number]: [id number] Jessica subq tissue 20 sq cm/< 150xxx-152xx: [id number] Skin sub graft trnk/arm/leg Add On Codes: [id number] Jessica subq tissue add-on
--- NOTE | 2018-02-26 08:56 | PN.PCM_ITS ---
(1) Non-healing surgical wound of left groin Status: Acute Qualifiers: Code(s): T81.89XA - Other complications of procedures, not elsewhere classified, initial encounter (2) Skin ulcer of abdominal wall with fat layer exposed Status: Acute Code(s): L98.492 - Non-pressure chronic ulcer of skin of other sites with fat layer exposed Comment: left abdominal fold (3) History of necrotising fasciitis Status: Acute Code(s): Z87.39 - Personal history of other diseases of the musculoskeletal system and connective tissue (4) Lymphedema of both lower extremities Status: Acute Code(s): I89.0 - Lymphedema, not elsewhere classified (5) Morbid obesity Status: Acute Code(s): E66.01 - Morbid (severe) obesity due to excess calories (6) Type 2 diabetes mellitus Status: Acute Qualifiers: Code(s): E11.9 - Type 2 diabetes mellitus without complications Type of Wound Date of Service: 02/20/18 Chief Complaint: Nonhealing wound status post surgical excision of necrotizing fasciitis left groin History of Wound: 46-year-old white male who presents to the wound healing center today with complaint of left groin ulceration status post surgical excision of necrotizing fasciitis. He is a past medical history which is significant for that of type 2 diabetes mellitus, gout, diabetic neuropathy, schizophrenia, bilateral lymphedema, and schizophrenia. The patient states that what initially started as a pimple in his left groin progressed to necrotizing fasciitis and he had to have this surgically debrided in April 2017. He was admitted to [facility] for 2 weeks and then [facility] for 6 weeks afterwards. He states that the groin ulcer which extends to his left lower abdomen has been slowly improving and he has been doing daily Aquacel AG dressings with an ABD for the drainage. He does state that he has had 3 wound vacs in the past which were unable to be utilized due to the location of his wound. He denies any foul-smelling discharge or systemic signs of infection at this time. The patient otherwise denies any fever, chills, nausea, vomiting, shortness of breath, chest pain or pressure, palpitations, orthopnea, syncope or presyncopal episodes. Progress of Wound: Wounds are stable at this time, slight surrounding both wounds are somewhat excoriated (patient states that this is due to the drainage leaking from his wound VAC that would not seal right secondary to the purapply application), wound beds are moist and clean and without signs of gross infection at this time, There was a bridge of skin that has epithelialized and now made into 2 separate wounds wound 1 left groin and wound to left lower abdom inal fold. This past week he kept the wound VAC on the entire time however had a lot of drainage and the purapply on the left abdominal fold only stayed on for 4 days days. Continues to have moderate amount of serosanguineous drainage in the VAC. The patient otherwise denies any fever, chills, nausea, vomiting, shortness of breath, chest pain or pressure, palpitations, orthopnea, lower extremity edema, syncope or presyncopal episodes. - Physical Exam Vital Signs Temp Pulse Resp BP 96.8 F L 86 18 144/81 H 02/20/18 12:33 02/20/18 12:33 02/20/18 12:33 02/20/18 12:33 General: Alert, Oriented x3, Cooperative, No apparent distress HEENT: Atraumatic Oral: Moist Mucosa Cardiovascular: Regular rate Abdomen: Obese Extremities: Edema - Generalized bilateral lower extremity edema Skin: Ulcer/ Wound - Abdominal fold ulcer of the left with adherent slough and devitalized tissue, surrounding tissue intact however excoriated due to drainage from the VAC, left groin ulceration with adherent slough present, no signs of infection at this time. Still having moderate amount of serosanguineous Neurological: Neuro grossly intact Psych/Mental Status: Normal Affect, Appropriate, Alert and oriented to time, place, person, mood and affect Debridement Note Post-Debridement Measurements/Treatment WC - Nurse 2 - General Ulcer CM Notes Start: 02/20/18 12:33 Freq: Status: Active Protocol: Activity Type Activity Date Activity User E-Sign Co-Sign Detail Recorded Client Recorded Date Recorded By Document 02/20/18 13:48 [id number] 02/20/18 13:50 02/20/18 13:48 Wound Center Nurse 2 #2 Left Abdominal Fold -Time 13:48 -Correct Patient Yes -Correct Side, Site, Position Yes -Correct Procedure Yes -Procedure Performed Yes -Type of Procedure Debridement -Clinical Debridement Subcutaneous -Post Debridement Size (cm) - Length 5.9 -Post Debridement Size (cm) - Width 0.9 -Post Debridement Size (cm) - Depth 0.1 -Total Square Cm 5.31 -Wound/Ulcer Outcome Not Healed -Ulcer Cleansing Rinsed/ Irrigated with Saline -Foul Odor after Cleansing No -Bioengineered Tissue No -Type of bioengineered Tissue [id number] -Expiration Date 04/23/20 -Product Lot Number [id number] -Percent Used 100 -Saline Lot Number [id number] -Topical Lidocaine (%) 4 -Bleeding Controlled with Pressure -Treatment Response Procedure Tolerated Well #1- LEFT GROIN- POST OP -Time 13:49 -Correct Patient Yes -Correct Side, Site, Position Yes -Correct Procedure Yes -Procedure Performed Yes -Type of Procedure Debridement -Clinical Debridement Subcutaneous -Post Debridement Size (cm) - Length 4.6 -Post Debridement Size (cm) - Width 16.0 -Post Debridement Size (cm) - Depth 0.1 -Total Square Cm 73.60 -Wound/Ulcer Outcome Not Healed -Ulcer Cleansing Rinsed/ Irrigated with Saline -Foul Odor after Cleansing No -Bioengineered Tissue No -Bleeding Controlled with Pressure -Treatment Response Procedure Tolerated Well Pain Scale: 0-10 Numeric Is Patient Pain Free? Yes Wound debrided: Left abdominal fold ulcer Laterality: Left Type of Debridement: Excisional debridement Anesthesia Used: 5% Lidocaine Gel Depth: in the subcutaneous layer Percentage of wound debrided: 100 Instrument Used: 7mm curette Tissue Removed: Slough and devitalized tissue Severity: Fat Layer Exposed Amount of bleeding with debridement: Mild Bleeding Controlled with: Pressure Patient tolerated procedure well - Additional Wound Wound debrided: Left groin nonhealing ulcer status postSurgical removal necrotizing fasci Laterality: Left Type of Debridement: Excisional debridement Anesthesia Used: 5% Lidocaine Gel Depth: in the subcutaneous layer Percentage of wound debrided: 100 Instrument Used: 7mm curette Tissue Removed: Slough and devitalized tissue Severity: Fat Layer Exposed Amount of bleeding with debridement: Mild Bleeding Controlled with: Pressure Patient tolerated procedure: Patient tolerated procedure well Assessment/Plan Assessment: Nonhealing postsurgical wound left groin status post surgical excision of necrotizing fasciitis. Bilateral lower extremity edema. Morbid obesity. Type 2 diabetes mellitus Plan: The patient was seen and examined at the wound center today and was updated on the plan of care. A subcutaneous debridement was performed today. The patient tolerated the procedure well. The patients wound care will consist of: Purapply AM was applied to left abdomnimal fold ulcer and secured with steris to the left abdominal fold ulcer, Aquacel extra was placed over top, wound VAC to left groin ulcer at 175 mmHg. KCI vac applied today and to be changed triweekly. Wound cultures were reviewed and negative. Baseline bloodwork reviewed which demonstrated a slightly low pre-albumin and patient was advised to use Glucerna or high-protein with meals. Will recheck baseline lab work given the delayed wound healing and will also recheck A1c. Previous records were requested for continuity of care. Patient educated on the importance of diet on wound healing and instructed to increase protein and vitamin C intake. Patient verbalized understanding. Patient will follow up at wound healing center in one week or sooner if needed. Plastic surgery consultation - no surgery indicated. Did discuss with patient the importance of blood sugar control in wound healing. This note was generated with [employer] dictation software. It may contain incorrect words, spelling, and punctuation that were not noted in checking the note before signing. Code Visit 111xxx-113xx: 42871 Jessica subq tissue 20 sq cm/< 150xxx-152xx: [id number] Skin sub graft trnk/arm/leg Add On Codes: [id number] Jessica subq tissue add-on
[2018-02-27 14:28] VITALS: BP 148/81; PULSE 92; RESP 18; TEMP 36.4
--- NOTE | 2018-02-27 14:31 | WC ---
pt states rosalva pennington and noé fell off on saturday,
--- NOTE | 2018-03-03 19:34 | PCM.WC.PN ---
(1) Non-healing surgical wound of left groin Status: Acute Qualifiers: Code(s): T81.89XA - Other complications of procedures, not elsewhere classified, initial encounter (2) Skin ulcer of abdominal wall with fat layer exposed Status: Acute Code(s): L98.492 - Non-pressure chronic ulcer of skin of other sites with fat layer exposed Comment: left abdominal fold (3) History of necrotising fasciitis Status: Acute Code(s): Z87.39 - Personal history of other diseases of the musculoskeletal system and connective tissue (4) Lymphedema of both lower extremities Status: Acute Code(s): I89.0 - Lymphedema, not elsewhere classified (5) Morbid obesity Status: Acute Code(s): E66.01 - Morbid (severe) obesity due to excess calories (6) Type 2 diabetes mellitus Status: Acute Qualifiers: Code(s): E11.9 - Type 2 diabetes mellitus without complications Type of Wound Date of Service: 02/27/18 Chief Complaint: Nonhealing wound status post surgical excision of necrotizing fasciitis left groin History of Wound: 46-year-old white male who presents to the wound healing center today with complaint of left groin ulceration status post surgical excision of necrotizing fasciitis. He is a past medical history which is significant for that of type 2 diabetes mellitus, gout, diabetic neuropathy, schizophrenia, bilateral lymphedema, and schizophrenia. The patient states that what initially started as a pimple in his left groin progressed to necrotizing fasciitis and he had to have this surgically debrided in April 2017. He was admitted to [facility] for 2 weeks and then [facility] for 6 weeks afterwards. He states that the groin ulcer which extends to his left lower abdomen has been slowly improving and he has been doing daily Aquacel AG dressings with an ABD for the drainage. He does state that he has had 3 wound vacs in the past which were unable to be utilized due to the location of his wound. He denies any foul-smelling discharge or systemic signs of infection at this time. The patient otherwise denies any fever, chills, nausea, vomiting, shortness of breath, chest pain or pressure, palpitations, orthopnea, syncope or presyncopal episodes. Progress of Wound: Wounds are stable at this time, surrounding wound excoriation is now resolved, wound beds are moist and clean and without signs of gross infection at this time, There was a bridge of skin that has epithelialized and now made into 2 separate wounds wound 1 left groin and wound to left lower abdominal fold. This past week he kept the wound VAC on the entire time to the left groin and the pure apply remained on the abdominal fold ulcer for the entire duration as well. Patient continues to increase his oral protein supplementation with whey protein. Continues to have moderate amount of serosanguineous drainage in the VAC. The patient otherwise denies any fever, chills, nausea, vomiting, shortness of breath, chest pain or pressure, palpitations, orthopnea, lower extremity edema, syncope or presyncopal episodes. - Physical Exam Vital Signs Temp Pulse Resp BP 97.5 F L 92 18 148/81 H 02/27/18 14:28 02/27/18 14:28 02/27/18 14:28 02/27/18 14:28 General: Alert, Oriented x3, Cooperative, No apparent distress HEENT: Atraumatic Oral: Moist Mucosa Cardiovascular: Regular rate Abdomen: Soft, Non Tender, Obese Extremities: No clubbing, No cyanosis, No edema Skin: Ulcer/ Wound - Nonhealing ulceration present to the left groin and left abdominal fold with adherent slough present, surrounding excoriations now resolved, no signs of localized infection, slight erythema noted around wound edges less than 1 cm, no malodor or purulent discharge at this time. Musculoskeletal: No Tenderness to Palpation of Joints or Extremities, No Muscle Wasting Neurological: Neuro grossly intact Psych/Mental Status: Normal Affect, Appropriate, Alert and oriented to time, place, person, mood and affect Debridement Note Post-Debridement Measurements/Treatment WC - Nurse 2 - General Ulcer CM Notes Start: 02/20/18 12:33 Freq: Status: Active Protocol: Activity Type Activity Date Activity User E-Sign Co-Sign Detail Recorded Client Recorded Date Recorded By Document 02/20/18 13:48 TM [id number] 02/20/18 13:50 TM Document 02/27/18 15:35 TM [id number] 02/27/18 15:38 TM 02/20/18 02/27/18 13:48 15:35 Wound Center Nurse 2 #2 Left Abdominal Fold -Time 13:48 15:35 -Correct Patient Yes Yes -Correct Side, Site, Position Yes Yes -Correct Procedure Yes Yes -Procedure Performed Yes Yes -Type of Procedure Debridement Debridement -Clinical Debridement Subcutaneous Subcutaneous -Post Debridement Size (cm) - Length 5.9 0.7 -Post Debridement Size (cm) - Width 0.9 4.4 -Post Debridement Size (cm) - Depth 0.1 0.1 -Total Square Cm 5.31 3.08 -Wound/Ulcer Outcome Not Healed Not Healed -Ulcer Cleansing Rinsed/ Rinsed/ Irrigated with Irrigated with Saline Saline -Foul Odor after Cleansing No No -Bioengineered Tissue No Yes -Type of bioengineered Tissue [id number] -Expiration Date 04/23/20 07/11/20 -Product Lot Number [id number] -Percent Used 100 100 -Saline Lot Number [id number] -Topical Lidocaine (%) 4 4 -Bleeding Controlled with Pressure Pressure -Treatment Response Procedure Procedure Tolerated Well Tolerated Well #1- LEFT GROIN- POST OP -Time 13:49 15:36 -Correct Patient Yes Yes -Correct Side, Site, Position Yes Yes -Correct Procedure Yes Yes -Procedure Performed Yes Yes -Type of Procedure Debridement Debridement -Clinical Debridement Subcutaneous Subcutaneous -Post Debridement Size (cm) - Length 4.6 3.8 -Post Debridement Size (cm) - Width 16.0 15.7 -Post Debridement Size (cm) - Depth 0.1 0.1 -Total Square Cm 73.60 59.66 -Wound/Ulcer Outcome Not Healed Not Healed -Ulcer Cleansing Rinsed/ Rinsed/ Irrigated with Irrigated with Saline Saline -Foul Odor after Cleansing No No -Bioengineered Tissue No No -Bleeding Controlled with Pressure Pressure -Treatment Response Procedure Procedure Tolerated Well Tolerated Well Pain Scale: 0-10 Numeric Is Patient Pain Free? Yes Yes Wound debrided: Nonhealing ulcer left abdominal fold Laterality: Left Type of Debridement: Excisional debridement Anesthesia Used: 5% Lidocaine Gel Depth: in the subcutaneous layer Percentage of wound debrided: 100 Instrument Used: 7mm curette Tissue Removed: Slough and devitalized tissue Severity: Fat Layer Exposed Amount of bleeding with debridement: Mild Bleeding Controlled with: Pressure Patient tolerated procedure well - Additional Wound Wound debrided: Left groin ulcer Laterality: Left Type of Debridement: Excisional debridement Anesthesia Used: 5% Lidocaine Gel Depth: in the subcutaneous layer Percentage of wound debrided: 100 Instrument Used: 7mm curette Tissue Removed: Slough and devitalized tissue Severity: Fat Layer Exposed Amount of bleeding with debridement: Mild Bleeding Controlled with: Pressure Patient tolerated procedure: Patient tolerated procedure well Assessment/Plan Assessment: Nonhealing postsurgical wound left groin status post surgical excision of necrotizing fasciitis. Bilateral lower extremity edema. Morbid obesity. Type 2 diabetes mellitus Plan: The patient was seen and examined at the wound center today and was updated on the plan of care. A subcutaneous debridement was performed today. The patient tolerated the procedure well. The patients wound care will consist of: Purapply AM was applied to left abdomnimal fold ulcer and secured with steris to the left abdominal fold ulcer, Aquacel extra was placed over top, wound VAC to left groin ulcer at 175 mmHg. KCI vac applied today and to be changed triweekly. Wound cultures were reviewed and negative. Baseline bloodwork reviewed which demonstrated a slightly low pre-albumin and patient was advised to use Glucerna or high-protein with meals. Repeat lab work WNL. Prealbumin WNL now. Previous records were requested for continuity of care. Patient educated on the importance of diet on wound healing and instructed to increase protein and vitamin C intake. Patient verbalized understanding. Patient will follow up at wound healing center in one week or sooner if needed. Plastic surgery consultation - no surgery indicated. Did discuss with patient the importance of blood sugar control in wound healing. This note was generated with [employer] dictation software. It may contain incorrect words, spelling, and punctuation that were not noted in checking the note before signing. Code Visit 111xxx-113xx: 50622 Jessica subq tissue 20 sq cm/< 150xxx-152xx: [id number] Skin sub graft trnk/arm/leg
--- NOTE | 2018-03-03 19:38 | PN.PCM_ITS ---
(1) Non-healing surgical wound of left groin Status: Acute Qualifiers: Code(s): T81.89XA - Other complications of procedures, not elsewhere classified, initial encounter (2) Skin ulcer of abdominal wall with fat layer exposed Status: Acute Code(s): L98.492 - Non-pressure chronic ulcer of skin of other sites with fat layer exposed Comment: left abdominal fold (3) History of necrotising fasciitis Status: Acute Code(s): Z87.39 - Personal history of other diseases of the musculoskeletal system and connective tissue (4) Lymphedema of both lower extremities Status: Acute Code(s): I89.0 - Lymphedema, not elsewhere classified (5) Morbid obesity Status: Acute Code(s): E66.01 - Morbid (severe) obesity due to excess calories (6) Type 2 diabetes mellitus Status: Acute Qualifiers: Code(s): E11.9 - Type 2 diabetes mellitus without complications Type of Wound Date of Service: 02/27/18 Chief Complaint: Nonhealing wound status post surgical excision of necrotizing fasciitis left groin History of Wound: 46-year-old white male who presents to the wound healing center today with complaint of left groin ulceration status post surgical excision of necrotizing fasciitis. He is a past medical history which is significant for that of type 2 diabetes mellitus, gout, diabetic neuropathy, schizophrenia, bilateral lymphedema, and schizophrenia. The patient states that what initially started as a pimple in his left groin progressed to necrotizing fasciitis and he had to have this surgically debrided in April 2017. He was admitted to [facility] for 2 weeks and then [facility] for 6 weeks afterwards. He states that the groin ulcer which extends to his left lower abdomen has been slowly improving and he has been doing daily Aquacel AG dressings with an ABD for the drainage. He does state that he has had 3 wound vacs in the past which were unable to be utilized due to the location of his wound. He denies any foul-smelling discharge or systemic signs of infection at this time. The patient otherwise denies any fever, chills, nausea, vomiting, shortness of breath, chest pain or pressure, palpitations, orthopnea, syncope or presyncopal episodes. Progress of Wound: Wounds are stable at this time, surrounding wound excoriation is now resolved, wound beds are moist and clean and without signs of gross infection at this time, There was a bridge of skin that has epithelialized and now made into 2 separate wounds wound 1 left groin and wound to left lower abdominal fold. This past week he kept the wound VAC on the entire time to the left groin and the pure apply remained on the abdominal fold ulcer for the entire duration as well. Patient continues to increase his oral protein supplementation with whey protein. Continues to have moderate amount of serosanguineous drainage in the VAC. The patient otherwise denies any fever, chills, nausea, vomiting, shortness of breath, chest pain or pressure, palpitations, orthopnea, lower extremity edema, syncope or presyncopal episodes. - Physical Exam Vital Signs Temp Pulse Resp BP 97.5 F L 92 18 148/81 H 02/27/18 14:28 02/27/18 14:28 02/27/18 14:28 02/27/18 14:28 General: Alert, Oriented x3, Cooperative, No apparent distress HEENT: Atraumatic Oral: Moist Mucosa Cardiovascular: Regular rate Abdomen: Soft, Non Tender, Obese Extremities: No clubbing, No cyanosis, No edema Skin: Ulcer/ Wound - Nonhealing ulceration present to the left groin and left abdominal fold with adherent slough present, surrounding excoriations now resolved, no signs of localized infection, slight erythema noted around wound edges less than 1 cm, no malodor or purulent discharge at this time. Musculoskeletal: No Tenderness to Palpation of Joints or Extremities, No Muscle Wasting Neurological: Neuro grossly intact Psych/Mental Status: Normal Affect, Appropriate, Alert and oriented to time, place, person, mood and affect Debridement Note Post-Debridement Measurements/Treatment WC - Nurse 2 - General Ulcer CM Notes Start: 02/20/18 12:33 Freq: Status: Active Protocol: Activity Type Activity Date Activity User E-Sign Co-Sign Detail Recorded Client Recorded Date Recorded By Document 02/20/18 13:48 TM [id number] 02/20/18 13:50 TM Document 02/27/18 15:35 TM [id number] 02/27/18 15:38 TM 02/20/18 02/27/18 13:48 15:35 Wound Center Nurse 2 #2 Left Abdominal Fold -Time 13:48 15:35 -Correct Patient Yes Yes -Correct Side, Site, Position Yes Yes -Correct Procedure Yes Yes -Procedure Performed Yes Yes -Type of Procedure Debridement Debridement -Clinical Debridement Subcutaneous Subcutaneous -Post Debridement Size (cm) - Length 5.9 0.7 -Post Debridement Size (cm) - Width 0.9 4.4 -Post Debridement Size (cm) - Depth 0.1 0.1 -Total Square Cm 5.31 3.08 -Wound/Ulcer Outcome Not Healed Not Healed -Ulcer Cleansing Rinsed/ Rinsed/ Irrigated with Irrigated with Saline Saline -Foul Odor after Cleansing No No -Bioengineered Tissue No Yes -Type of bioengineered Tissue [id number] -Expiration Date 04/23/20 07/11/20 -Product Lot Number [id number] -Percent Used 100 100 -Saline Lot Number [id number] -Topical Lidocaine (%) 4 4 -Bleeding Controlled with Pressure Pressure -Treatment Response Procedure Procedure Tolerated Well Tolerated Well #1- LEFT GROIN- POST OP -Time 13:49 15:36 -Correct Patient Yes Yes -Correct Side, Site, Position Yes Yes -Correct Procedure Yes Yes -Procedure Performed Yes Yes -Type of Procedure Debridement Debridement -Clinical Debridement Subcutaneous Subcutaneous -Post Debridement Size (cm) - Length 4.6 3.8 -Post Debridement Size (cm) - Width 16.0 15.7 -Post Debridement Size (cm) - Depth 0.1 0.1 -Total Square Cm 73.60 59.66 -Wound/Ulcer Outcome Not Healed Not Healed -Ulcer Cleansing Rinsed/ Rinsed/ Irrigated with Irrigated with Saline Saline -Foul Odor after Cleansing No No -Bioengineered Tissue No No -Bleeding Controlled with Pressure Pressure -Treatment Response Procedure Procedure Tolerated Well Tolerated Well Pain Scale: 0-10 Numeric Is Patient Pain Free? Yes Yes Wound debrided: Nonhealing ulcer left abdominal fold Laterality: Left Type of Debridement: Excisional debridement Anesthesia Used: 5% Lidocaine Gel Depth: in the subcutaneous layer Percentage of wound debrided: 100 Instrument Used: 7mm curette Tissue Removed: Slough and devitalized tissue Severity: Fat Layer Exposed Amount of bleeding with debridement: Mild Bleeding Controlled with: Pressure Patient tolerated procedure well - Additional Wound Wound debrided: Left groin ulcer Laterality: Left Type of Debridement: Excisional debridement Anesthesia Used: 5% Lidocaine Gel Depth: in the subcutaneous layer Percentage of wound debrided: 100 Instrument Used: 7mm curette Tissue Removed: Slough and devitalized tissue Severity: Fat Layer Exposed Amount of bleeding with debridement: Mild Bleeding Controlled with: Pressure Patient tolerated procedure: Patient tolerated procedure well Assessment/Plan Assessment: Nonhealing postsurgical wound left groin status post surgical excision of necrotizing fasciitis. Bilateral lower extremity edema. Morbid obesity. Type 2 diabetes mellitus Plan: The patient was seen and examined at the wound center today and was updated on the plan of care. A subcutaneous debridement was performed today. The patient tolerated the procedure well. The patients wound care will consist of: Purapply AM was applied to left abdomnimal fold ulcer and secured with steris to the left abdominal fold ulcer, Aquacel extra was placed over top, wound VAC to left groin ulcer at 175 mmHg. KCI vac applied today and to be changed triweekly. Wound cultures were reviewed and negative. Baseline bloodwork reviewed which demonstrated a slightly low pre-albumin and patient was advised to use Glucerna or high-protein with meals. Repeat lab work WNL. Prealbumin WNL now. Previous records were requested for continuity of care. Patient educated on the importance of diet on wound healing and instructed to increase protein and vitamin C intake. Patient verbalized understanding. Patient will follow up at wound healing center in one week or sooner if needed. Plastic surgery consultation - no surgery indicated. Did discuss with patient the importance of blood sugar control in wound healing. This note was generated with [employer] dictation software. It may contain incorrect words, spelling, and punctuation that were not noted in checking the note before signing. Code Visit 111xxx-113xx: 12647 Jessica subq tissue 20 sq cm/< 150xxx-152xx: 21967 Skin sub graft trnk/arm/leg
[2018-03-06 14:28] VITALS: BP 145/86; PULSE 85; RESP 16; TEMP 36.2
--- NOTE | 2018-03-06 15:55 | PCM.WC.PN ---
(1) Non-healing surgical wound of left groin Status: Acute Current Visit: Yes Qualifiers: Code(s): T81.89XA - Other complications of procedures, not elsewhere classified, initial encounter (2) Skin ulcer of abdominal wall with fat layer exposed Status: Acute Current Visit: Yes Code(s): L98.492 - Non-pressure chronic ulcer of skin of other sites with fat layer exposed Comment: left abdominal fold (3) History of necrotising fasciitis Status: Acute Current Visit: Yes Code(s): Z87.39 - Personal history of other diseases of the musculoskeletal system and connective tissue (4) Lymphedema of both lower extremities Status: Acute Current Visit: Yes Code(s): I89.0 - Lymphedema, not elsewhere classified (5) Morbid obesity Status: Acute Current Visit: Yes Code(s): E66.01 - Morbid (severe) obesity due to excess calories (6) Type 2 diabetes mellitus Status: Acute Current Visit: Yes Qualifiers: Code(s): E11.9 - Type 2 diabetes mellitus without complications Type of Wound Date of Service: 03/06/18 Chief Complaint: Nonhealing wound status post surgical excision of necrotizing fasciitis left groin History of Wound: 46-year-old white male who presents to the wound healing center today with complaint of left groin ulceration status post surgical excision of necrotizing fasciitis. He is a past medical history which is significant for that of type 2 diabetes mellitus, gout, diabetic neuropathy, schizophrenia, bilateral lymphedema, and schizophrenia. The patient states that what initially started as a pimple in his left groin progressed to necrotizing fasciitis and he had to have this surgically debrided in April 2017. [facility] afterwards. He states that the groin ulcer which extends to his left lower abdomen has been slowly improving and he has been doing daily Aquacel AG dressings with an ABD for the drainage. He does state that he has had 3 wound vacs in the past which were unable to be utilized due to the location of his wound. He denies any foul-smelling discharge or systemic signs of infection at this time. The patient otherwise denies any fever, chills, nausea, vomiting, shortness of breath, chest pain or pressure, palpitations, orthopnea, syncope or presyncopal episodes. Progress of Wound: Wounds are stable at this time, surrounding wound excoriation is now resolved, wound beds are moist and clean and without signs of gross infection at this time, There was a bridge of skin that has epithelialized and now made into 2 separate wounds wound 1 left groin and wound to left lower abdominal fold. This past week he kept the wound VAC on the entire time to the left groin and the pure apply remained on the abdominal fold ulcer for the entire duration as well. Patient continues to increase his oral protein supplementation with whey protein. Continues to have moderate amount of serosanguineous drainage in the VAC. The patient otherwise denies any fever, chills, nausea, vomiting, shortness of breath, chest pain or pressure, palpitations, orthopnea, lower extremity edema, syncope or presyncopal episodes. - Physical Exam Vital Signs Temp Pulse Resp BP 97.2 F L 85 16 145/86 H 03/06/18 14:28 03/06/18 14:28 03/06/18 14:28 03/06/18 14:28 General: Alert, Oriented x3, Cooperative, No apparent distress HEENT: Atraumatic, PERRLA Cardiovascular: Regular rate Abdomen: Obese Skin: Ulcer/ Wound - See nursing documentation, nonhealing ulcers to the left groin and left abdominal fold with adherent slough present, no excoriation surrounding wound bed edges at this time, no purulent drainage or signs of infection at this time. Wound Measurements and Assessment WC - Nurse 1 - General Ulcer Measurement Start: 02/20/18 12:33 Freq: Status: Active Protocol: Activity Type Activity Date Activity User E-Sign Co-Sign Detail Recorded Client Recorded Date Recorded By Document 03/06/18 14:28 [facility] [id number] 03/06/18 14:36 [facility] 03/06/18 14:28 Wound Center Nurse 1 [Ulcer Assessment] #2 Left Abdominal Fold -Combined with other wound No -Current Size (cm) - Length 1.1 -Current Size (cm) - Width 8.2 -Current Size (cm) - Depth 0.2 -Total Square Cm 9.02 -Date of Last Picture (Recall this 03/06/18 field) -Photo Taken Yes -Epithelialization Small 1-33% -Tunneling No -Undermining/Tunneling No -Circular Undermining No -Exudate Amt Large (67-100%) -Exudate Type Serosanguineous -Wound Margin Distinct, Outline Attached -Granulation Amt Large (67-100%) -Granulation Quality [place] -Slough/Fibrin Yes -Necrosis Amt Small (1-33%) -Necrotic Tissue Type Adherent Slough -Texture (Inessa-wound Skin Appearance) Friable Scarring Rash -Moisture (Inessa-wound Skin Appearance Maceration ) -Color (Inessa-wound Skin Appearance) Erythema Palor -Temperature (Inessa-wound Skin No Abnormality Appearance) (Pt Warm) -Tenderness on Palpation (Inessa-wound No Skin Appearance) -Ulcer Cleansing Wound Cleanser -Foul Odor after Cleansing No -Anesthetic Used 4% Lidocaine Solution #1- LEFT GROIN- POST OP -Combined with other wound No -Current Size (cm) - Length 3.2 -Current Size (cm) - Width 16.9 -Current Size (cm) - Depth 2.7 -Total Square Cm 54.08 -Date of Last Picture (Recall this 03/06/18 field) -Photo Taken Yes -Epithelialization Small 1-33% -Tunneling Yes -Tunneling Position (O'clock) 9 -Tunneling Distance (cm) 0.5 -Undermining/Tunneling No -Circular Undermining No -Exudate Amt Medium (34-66%) -Exudate Type Serosanguineous -Wound Margin Distinct, Outline Attached -Granulation Amt Large (67-100%) -Granulation Quality [place] -Slough/Fibrin No -Necrosis Amt None Present (0 %) -Texture (Inessa-wound Skin Appearance) Friable Scarring Rash -Moisture (Inessa-wound Skin Appearance Maceration ) Dry/Scaly -Color (Inessa-wound Skin Appearance) Erythema Palor -Temperature (Inessa-wound Skin No Abnormality Appearance) (Pt Warm) -Tenderness on Palpation (Inessa-wound No Skin Appearance) -Ulcer Cleansing Wound Cleanser -Foul Odor after Cleansing No -Anesthetic Used 4% Lidocaine Solution Neurological: Neuro grossly intact Psych/Mental Status: Normal Affect, Appropriate, Alert and oriented to time, place, person, mood and affect Debridement Note Post-Debridement Measurements/Treatment WC - Nurse 2 - General Ulcer CM Notes Start: 02/20/18 12:33 Freq: Status: Active Protocol: Activity Type Activity Date Activity User E-Sign Co-Sign Detail Recorded Client Recorded Date Recorded By Document 02/20/18 13:48 [id number] 02/20/18 13:50 TM Document 02/27/18 15:35 [id number] 02/27/18 15:38 02/20/18 02/27/18 13:48 15:35 Wound Center Nurse 2 #2 Left Abdominal Fold -Time 13:48 15:35 -Correct Patient Yes Yes -Correct Side, Site, Position Yes Yes -Correct Procedure Yes Yes -Procedure Performed Yes Yes -Type of Procedure Debridement Debridement -Clinical Debridement Subcutaneous Subcutaneous -Post Debridement Size (cm) - Length 5.9 0.7 -Post Debridement Size (cm) - Width 0.9 4.4 -Post Debridement Size (cm) - Depth 0.1 0.1 -Total Square Cm 5.31 3.08 -Wound/Ulcer Outcome Not Healed Not Healed -Ulcer Cleansing Rinsed/ Rinsed/ Irrigated with Irrigated with Saline Saline -Foul Odor after Cleansing No No -Bioengineered Tissue No Yes -Type of bioengineered Tissue [id number] -Expiration Date 04/23/20 07/11/20 -Product Lot Number [id number] -Percent Used 100 100 -Saline Lot Number [id number] -Topical Lidocaine (%) 4 4 -Bleeding Controlled with Pressure Pressure -Treatment Response Procedure Procedure Tolerated Well Tolerated Well #1- LEFT GROIN- POST OP -Time 13:49 15:36 -Correct Patient Yes Yes -Correct Side, Site, Position Yes Yes -Correct Procedure Yes Yes -Procedure Performed Yes Yes -Type of Procedure Debridement Debridement -Clinical Debridement Subcutaneous Subcutaneous -Post Debridement Size (cm) - Length 4.6 3.8 -Post Debridement Size (cm) - Width 16.0 15.7 -Post Debridement Size (cm) - Depth 0.1 0.1 -Total Square Cm 73.60 59.66 -Wound/Ulcer Outcome Not Healed Not Healed -Ulcer Cleansing Rinsed/ Rinsed/ Irrigated with Irrigated with Saline Saline -Foul Odor after Cleansing No No -Bioengineered Tissue No No -Bleeding Controlled with Pressure Pressure -Treatment Response Procedure Procedure Tolerated Well Tolerated Well Pain Scale: 0-10 Numeric Is Patient Pain Free? Yes Yes Wound debrided: Left abdominal fold ulcer Laterality: Left Type of Debridement: Excisional debridement Anesthesia Used: 5% Lidocaine Gel Depth: in the subcutaneous layer Percentage of wound debrided: 100 Instrument Used: 7mm curette Tissue Removed: Slough and devitalized tissue Severity: Fat Layer Exposed Amount of bleeding with debridement: Mild Bleeding Controlled with: Pressure Patient tolerated procedure well - Additional Wound Wound debrided: Left groin ulcer Laterality: Left Type of Debridement: Excisional debridement Anesthesia Used: 5% Lidocaine Gel Depth: in the subcutaneous layer Percentage of wound debrided: 100 Instrument Used: 7mm curette Tissue Removed: Slough and devitalized tissue Severity: Fat Layer Exposed Amount of bleeding with debridement: Mild Bleeding Controlled with: Pressure Patient tolerated procedure: Patient tolerated procedure well Assessment/Plan Active Problems History of necrotising fasciitis (Acute) Lymphedema of both lower extremities (Acute) Type 2 diabetes mellitus (Acute) Morbid obesity (Acute) Non-healing surgical wound of left groin (Acute) Skin ulcer of abdominal wall with fat layer exposed (Acute) left abdominal fold Assessment: Nonhealing postsurgical wound left groin status post surgical excision of necrotizing fasciitis. Bilateral lower extremity edema. Morbid obesity. Type 2 diabetes mellitus Plan: The patient was seen and examined at the wound center today and was updated on the plan of care. A subcutaneous debridement was performed today. The patient tolerated the procedure well. The patients wound care will consist of: Purapply AM was applied to left groin ulcer and secured with steris, Aquacel extra was placed over top, wound VAC holiday at this time. Aquacel extra to left abdominal fold ulcer. Discussed that if application of pure apply comes off he should utilize Aquacel lecture daily dressing changes. Wound cultures were reviewed prior and negative. Baseline bloodwork reviewed which demonstrated a slightly low pre-albumin and patient was advised to use Glucerna or high-protein with meals. Repeat lab work WNL. Prealbumin WNL now. Previous records were requested for continuity of care. Patient educated on the importance of diet on wound healing and instructed to increase protein and vitamin C intake. Patient verbalized understanding. Patient will follow up at wound healing center in one week or sooner if needed. Plastic surgery consultation - no surgery indicated. Did discuss with patient the importance of blood sugar control in wound healing. Patient to follow-up in 2 weeks due to the holiday or sooner if needed. This note was generated with [employer] software. It may contain incorrect words, spelling, and punctuation that were not noted in checking the note before signing. Code Visit 111xxx-113xx: 78417 Jessica subq tissue 20 sq cm/< 150xxx-152xx: [id number] Skin sub graft trnk/arm/leg
--- NOTE | 2018-03-07 16:00 | PN.PCM_ITS ---
(1) Non-healing surgical wound of left groin Status: Acute Current Visit: Yes Qualifiers: Code(s): T81.89XA - Other complications of procedures, not elsewhere classified, initial encounter (2) Skin ulcer of abdominal wall with fat layer exposed Status: Acute Current Visit: Yes Code(s): L98.492 - Non-pressure chronic ulcer of skin of other sites with fat layer exposed Comment: left abdominal fold (3) History of necrotising fasciitis Status: Acute Current Visit: Yes Code(s): Z87.39 - Personal history of other diseases of the musculoskeletal system and connective tissue (4) Lymphedema of both lower extremities Status: Acute Current Visit: Yes Code(s): I89.0 - Lymphedema, not elsewhere classified (5) Morbid obesity Status: Acute Current Visit: Yes Code(s): E66.01 - Morbid (severe) obesity due to excess calories (6) Type 2 diabetes mellitus Status: Acute Current Visit: Yes Qualifiers: Code(s): E11.9 - Type 2 diabetes mellitus without complications Type of Wound Date of Service: 03/06/18 Chief Complaint: Nonhealing wound status post surgical excision of necrotizing fasciitis left groin History of Wound: 46-year-old white male who presents to the wound healing center today with complaint of left groin ulceration status post surgical excision of necrotizing fasciitis. He is a past medical history which is significant for that of type 2 diabetes mellitus, gout, diabetic neuropathy, schizophrenia, bilateral lymphedema, and schizophrenia. The patient states that what initially started as a pimple in his left groin progressed to necrotizing fasciitis and he had to have this surgically debrided in April 2017. He was admitted to [facility] for 2 weeks and then [facility] for 6 weeks afterwards. He states that the groin ulcer which extends to his left lower abdomen has been slowly improving and he has been doing daily Aquacel AG dressings with an ABD for the drainage. He does state that he has had 3 wound vacs in the past which were unable to be utilized due to the location of his wound. He denies any foul-smelling discharge or systemic signs of infection at this time. The patient otherwise denies any fever, chills, nausea, vomiting, shortness of breath, chest pain or pressure, palpitations, orthopnea, syncope or presyncopal episodes. Progress of Wound: Wounds are stable at this time, surrounding wound excoriation is now resolved, wound beds are moist and clean and without signs of gross infection at this time, There was a bridge of skin that has epithelialized and now made into 2 separate wounds wound 1 left groin and wound to left lower abdominal fold. This past week he kept the wound VAC on the entire time to the left groin and the pure apply remained on the abdominal fold ulcer for the entire duration as well. Patient continues to increase his oral protein supplementation with whey protein. Continues to have moderate amount of serosanguineous drainage in the VAC. The patient otherwise denies any fever, chills, nausea, vomiting, shortness of breath, chest pain or pressure, palpitations, orthopnea, lower extremity edema, syncope or presyncopal episodes. - Physical Exam Vital Signs Temp Pulse Resp BP 97.2 F L 85 16 145/86 H 03/06/18 14:28 03/06/18 14:28 03/06/18 14:28 03/06/18 14:28 General: Alert, Oriented x3, Cooperative, No apparent distress HEENT: Atraumatic, PERRLA Cardiovascular: Regular rate Abdomen: Obese Skin: Ulcer/ Wound - See nursing documentation, nonhealing ulcers to the left groin and left abdominal fold with adherent slough present, no excoriation surrounding wound bed edges at this time, no purulent drainage or signs of infection at this time. Wound Measurements and Assessment WC - Nurse 1 - General Ulcer Measurement Start: 02/20/18 12:33 Freq: Status: Active Protocol: Activity Type Activity Date Activity User E-Sign Co-Sign Detail Recorded Client Recorded Date Recorded By Document 03/06/18 14:28 [facility] [id number] 03/06/18 14:36 [facility] 03/06/18 14:28 Wound Center Nurse 1 [Ulcer Assessment] #2 Left Abdominal Fold -Combined with other wound No -Current Size (cm) - Length 1.1 -Current Size (cm) - Width 8.2 -Current Size (cm) - Depth 0.2 -Total Square Cm 9.02 -Date of Last Picture (Recall this 03/06/18 field) -Photo Taken Yes -Epithelialization Small 1-33% -Tunneling No -Undermining/Tunneling No -Circular Undermining No -Exudate Amt Large (67-100%) -Exudate Type Serosanguineous -Wound Margin Distinct, Outline Attached -Granulation Amt Large (67-100%) -Granulation Quality [place] -Slough/Fibrin Yes -Necrosis Amt Small (1-33%) -Necrotic Tissue Type Adherent Slough -Texture (Inessa-wound Skin Appearance) Friable Scarring Rash -Moisture (Inessa-wound Skin Appearance Maceration ) -Color (Inessa-wound Skin Appearance) Erythema Palor -Temperature (Inessa-wound Skin No Abnormality Appearance) (Pt Warm) -Tenderness on Palpation (Inessa-wound No Skin Appearance) -Ulcer Cleansing Wound Cleanser -Foul Odor after Cleansing No -Anesthetic Used 4% Lidocaine Solution #1- LEFT GROIN- POST OP -Combined with other wound No -Current Size (cm) - Length 3.2 -Current Size (cm) - Width 16.9 -Current Size (cm) - Depth 2.7 -Total Square Cm 54.08 -Date of Last Picture (Recall this 03/06/18 field) -Photo Taken Yes -Epithelialization Small 1-33% -Tunneling Yes -Tunneling Position (O'clock) 9 -Tunneling Distance (cm) 0.5 -Undermining/Tunneling No -Circular Undermining No -Exudate Amt Medium (34-66%) -Exudate Type Serosanguineous -Wound Margin Distinct, Outline Attached -Granulation Amt Large (67-100%) -Granulation Quality [place] -Slough/Fibrin No -Necrosis Amt None Present (0 %) -Texture (Inessa-wound Skin Appearance) Friable Scarring Rash -Moisture (Inessa-wound Skin Appearance Maceration ) Dry/Scaly -Color (Inessa-wound Skin Appearance) Erythema Palor -Temperature (Inessa-wound Skin No Abnormality Appearance) (Pt Warm) -Tenderness on Palpation (Inessa-wound No Skin Appearance) -Ulcer Cleansing Wound Cleanser -Foul Odor after Cleansing No -Anesthetic Used 4% Lidocaine Solution Neurological: Neuro grossly intact Psych/Mental Status: Normal Affect, Appropriate, Alert and oriented to time, place, person, mood and affect Debridement Note Post-Debridement Measurements/Treatment WC - Nurse 2 - General Ulcer CM Notes Start: 02/20/18 12:33 Freq: Status: Active Protocol: Activity Type Activity Date Activity User E-Sign Co-Sign Detail Recorded Client Recorded Date Recorded By Document 02/20/18 13:48 [id number] 02/20/18 13:50 TM Document 02/27/18 15:35 [id number] 02/27/18 15:38 02/20/18 02/27/18 13:48 15:35 Wound Center Nurse 2 #2 Left Abdominal Fold -Time 13:48 15:35 -Correct Patient Yes Yes -Correct Side, Site, Position Yes Yes -Correct Procedure Yes Yes -Procedure Performed Yes Yes -Type of Procedure Debridement Debridement -Clinical Debridement Subcutaneous Subcutaneous -Post Debridement Size (cm) - Length 5.9 0.7 -Post Debridement Size (cm) - Width 0.9 4.4 -Post Debridement Size (cm) - Depth 0.1 0.1 -Total Square Cm 5.31 3.08 -Wound/Ulcer Outcome Not Healed Not Healed -Ulcer Cleansing Rinsed/ Rinsed/ Irrigated with Irrigated with Saline Saline -Foul Odor after Cleansing No No -Bioengineered Tissue No Yes -Type of bioengineered Tissue [id number] -Expiration Date 04/23/20 07/11/20 -Product Lot Number [id number] -Percent Used 100 100 -Saline Lot Number [id number] -Topical Lidocaine (%) 4 4 -Bleeding Controlled with Pressure Pressure -Treatment Response Procedure Procedure Tolerated Well Tolerated Well #1- LEFT GROIN- POST OP -Time 13:49 15:36 -Correct Patient Yes Yes -Correct Side, Site, Position Yes Yes -Correct Procedure Yes Yes -Procedure Performed Yes Yes -Type of Procedure Debridement Debridement -Clinical Debridement Subcutaneous Subcutaneous -Post Debridement Size (cm) - Length 4.6 3.8 -Post Debridement Size (cm) - Width 16.0 15.7 -Post Debridement Size (cm) - Depth 0.1 0.1 -Total Square Cm 73.60 59.66 -Wound/Ulcer Outcome Not Healed Not Healed -Ulcer Cleansing Rinsed/ Rinsed/ Irrigated with Irrigated with Saline Saline -Foul Odor after Cleansing No No -Bioengineered Tissue No No -Bleeding Controlled with Pressure Pressure -Treatment Response Procedure Procedure Tolerated Well Tolerated Well Pain Scale: 0-10 Numeric Is Patient Pain Free? Yes Yes Wound debrided: Left abdominal fold ulcer Laterality: Left Type of Debridement: Excisional debridement Anesthesia Used: 5% Lidocaine Gel Depth: in the subcutaneous layer Percentage of wound debrided: 100 Instrument Used: 7mm curette Tissue Removed: Slough and devitalized tissue Severity: Fat Layer Exposed Amount of bleeding with debridement: Mild Bleeding Controlled with: Pressure Patient tolerated procedure well - Additional Wound Wound debrided: Left groin ulcer Laterality: Left Type of Debridement: Excisional debridement Anesthesia Used: 5% Lidocaine Gel Depth: in the subcutaneous layer Percentage of wound debrided: 100 Instrument Used: 7mm curette Tissue Removed: Slough and devitalized tissue Severity: Fat Layer Exposed Amount of bleeding with debridement: Mild Bleeding Controlled with: Pressure Patient tolerated procedure: Patient tolerated procedure well Assessment/Plan Active Problems History of necrotising fasciitis (Acute) Lymphedema of both lower extremities (Acute) Type 2 diabetes mellitus (Acute) Morbid obesity (Acute) Non-healing surgical wound of left groin (Acute) Skin ulcer of abdominal wall with fat layer exposed (Acute) left abdominal fold Assessment: Nonhealing postsurgical wound left groin status post surgical excision of necrotizing fasciitis. Bilateral lower extremity edema. Morbid obesity. Type 2 diabetes mellitus Plan: The patient was seen and examined at the wound center today and was updated on the plan of care. A subcutaneous debridement was performed today. The patient tolerated the procedure well. The patients wound care will consist of: Purapply AM was applied to left groin ulcer and secured with steris, Aquacel extra was placed over top, wound VAC holiday at this time. Aquacel extra to left abdominal fold ulcer. Discussed that if application of pure apply comes off he should utilize Aquacel lecture daily dressing changes. Wound cultures were reviewed prior and negative. Baseline bloodwork reviewed which demonstrated a slightly low pre-albumin and patient was advised to use Glucerna or high- protein with meals. Repeat lab work WNL. Prealbumin WNL now. Previous records were requested for continuity of care. Patient educated on the importance of diet on wound healing and instructed to increase protein and vitamin C intake. Patient verbalized understanding. Patient will follow up at wound healing center in one week or sooner if needed. Plastic surgery consultation - no surgery indicated. Did discuss with patient the importance of blood sugar control in wound healing. Patient to follow-up in 2 weeks due to the holiday or sooner if needed. This note was generated with [employer] software. It may contain incorrect words, spelling, and punctuation that were not noted in checking the note before signing. Code Visit 111xxx-113xx: 16083 Jessica subq tissue 20 sq cm/< 150xxx-152xx: 17158 Skin sub graft trnk/arm/leg
[2018-03-20 14:25] VITALS: BP 139/69; PULSE 86; RESP 18; TEMP 36
--- NOTE | 2018-03-20 18:32 | PCM.WC.PN ---
(1) Non-healing surgical wound of left groin Status: Acute Qualifiers: Code(s): T81.89XA - Other complications of procedures, not elsewhere classified, initial encounter (2) Skin ulcer of abdominal wall with fat layer exposed Status: Acute Code(s): L98.492 - Non-pressure chronic ulcer of skin of other sites with fat layer exposed Comment: left abdominal fold (3) History of necrotising fasciitis Status: Acute Code(s): Z87.39 - Personal history of other diseases of the musculoskeletal system and connective tissue (4) Lymphedema of both lower extremities Status: Acute Code(s): I89.0 - Lymphedema, not elsewhere classified (5) Morbid obesity Status: Acute Code(s): E66.01 - Morbid (severe) obesity due to excess calories (6) Type 2 diabetes mellitus Status: Acute Qualifiers: Code(s): E11.9 - Type 2 diabetes mellitus without complications Type of Wound Date of Service: 03/20/18 Chief Complaint: Nonhealing wound status post surgical excision of necrotizing fasciitis left groin History of Wound: 46-year-old white male who presents to the wound healing center today with complaint of left groin ulceration status post surgical excision of necrotizing fasciitis. He is a past medical history which is significant for that of type 2 diabetes mellitus, gout, diabetic neuropathy, schizophrenia, bilateral lymphedema, and schizophrenia. The patient states that what initially started as a pimple in his left groin progressed to necrotizing fasciitis and he had to have this surgically debrided in April 2017. He was admitted to [facility] for 2 weeks and then [facility] for 6 weeks afterwards. He states that the groin ulcer which extends to his left lower abdomen has been slowly improving and he has been doing daily Aquacel AG dressings with an ABD for the drainage. He does state that he has had 3 wound vacs in the past which were unable to be utilized due to the location of his wound. He denies any foul-smelling discharge or systemic signs of infection at this time. The patient otherwise denies any fever, chills, nausea, vomiting, shortness of breath, chest pain or pressure, palpitations, orthopnea, syncope or presyncopal episodes. Progress of Wound: Wounds are stable at this time, surrounding wound excoriation is now resolved, wound beds are moist and clean and without signs of gross infection at this time, There was a bridge of skin that has epithelialized and now made into 2 separate wounds wound 1 left groin and wound to left lower abdominal fold. The purapply remained on the abdominal fold ulcer 8 days and on the left groin for only one day. Patient has been using aquacell extra. Patient continues to increase his oral protein supplementation with whey protein. Continues to have small amount of serosanguineous drainage. The patient otherwise denies any fever, chills, nausea, vomiting, shortness of breath, chest pain or pressure, palpitations, orthopnea, lower extremity edema, syncope or presyncopal episodes. - Physical Exam Vital Signs Temp Pulse Resp BP 96.8 F L 86 18 139/69 H 03/20/18 14:25 03/20/18 14:25 03/20/18 14:25 03/20/18 14:25 General: Alert, Oriented x3, Cooperative, No apparent distress HEENT: Atraumatic Cardiovascular: Regular rate Abdomen: Soft, Non Tender, Obese Extremities: No clubbing, No cyanosis, No edema Skin: Ulcer/ Wound - left groin and abdominal fold ulcer with adherant slough and devitalized tissue, no signs of infection. Musculoskeletal: No Tenderness to Palpation of Joints or Extremities, No Muscle Wasting Neurological: Cranial nerves II-XII grossly intact, Neuro grossly intact Psych/Mental Status: Normal Affect, Appropriate, Alert and oriented to time, place, person, mood and affect Debridement Note Post-Debridement Measurements/Treatment WC - Nurse 2 - General Ulcer CM Notes Start: 02/20/18 12:33 Freq: Status: Active Protocol: Activity Type Activity Date Activity User E-Sign Co-Sign Detail Recorded Client Recorded Date Recorded By Document 02/20/18 13:48 [id number] 02/20/18 13:50 TM Document 02/27/18 15:35 [id number] 02/27/18 15:38 TM Document 03/20/18 15:03 [id number] 03/20/18 15:04 02/20/18 02/27/18 03/20/18 13:48 15:35 15:03 Wound Center Nurse 2 #2 Left Abdominal Fold -Time 13:48 15:35 15:03 -Correct Patient Yes Yes Yes -Correct Side, Site, Position Yes Yes Yes -Correct Procedure Yes Yes Yes -Procedure Performed Yes Yes Yes -Type of Procedure Debridement Debridement Debridement -Clinical Debridement Subcutaneous Subcutaneous Subcutaneous -Post Debridement Size (cm) - Length 5.9 0.7 4.4 -Post Debridement Size (cm) - Width 0.9 4.4 0.8 -Post Debridement Size (cm) - Depth 0.1 0.1 0.1 -Total Square Cm 5.31 3.08 3.52 -Wound/Ulcer Outcome Not Healed Not Healed Not Healed -Ulcer Cleansing Rinsed/ Rinsed/ Not Cleansed Irrigated with Irrigated with Saline Saline -Foul Odor after Cleansing No No No -Bioengineered Tissue No Yes No -Type of bioengineered Tissue [id number] -Expiration Date 04/23/20 07/11/20 -Product Lot Number [id number] -Percent Used 100 100 -Saline Lot Number [id number] -Topical Lidocaine (%) 4 4 -Bleeding Controlled with Pressure Pressure Pressure -Offloading No -Treatment Response Procedure Procedure Tolerated Well Tolerated Well #1- LEFT GROIN- POST OP -Time 13:49 15:36 15:03 -Correct Patient Yes Yes Yes -Correct Side, Site, Position Yes Yes Yes -Correct Procedure Yes Yes Yes -Procedure Performed Yes Yes Yes -Type of Procedure Debridement Debridement Debridement -Clinical Debridement Subcutaneous Subcutaneous Subcutaneous -Post Debridement Size (cm) - Length 4.6 3.8 4 -Post Debridement Size (cm) - Width 16.0 15.7 16.3 -Post Debridement Size (cm) - Depth 0.1 0.1 0.1 -Total Square Cm 73.60 59.66 65.2 -Wound/Ulcer Outcome Not Healed Not Healed Not Healed -Ulcer Cleansing Rinsed/ Rinsed/ Not Cleansed Irrigated with Irrigated with Saline Saline -Foul Odor after Cleansing No No No -Bioengineered Tissue No No No -Bleeding Controlled with Pressure Pressure Pressure -Offloading No -Treatment Response Procedure Procedure Tolerated Well Tolerated Well Pain Scale: 0-10 Numeric Is Patient Pain Free? Yes Yes Yes Wound debrided: left groin skin ulcer Laterality: Left Type of Debridement: Excisional debridement Anesthesia Used: 5% Lidocaine Gel Depth: in the subcutaneous layer Percentage of wound debrided: 100 Instrument Used: 7mm curette Tissue Removed: slough and devitalized tissue Severity: Fat Layer Exposed Amount of bleeding with debridement: Mild Bleeding Controlled with: Pressure Patient tolerated procedure well - Additional Wound Wound debrided: left abdominal skin ulcer Laterality: Left Type of Debridement: Excisional debridement Anesthesia Used: 5% Lidocaine Gel Depth: in the subcutaneous layer Percentage of wound debrided: 100 Instrument Used: 7mm curette Tissue Removed: slough and devitalized tissue Severity: Fat Layer Exposed Amount of bleeding with debridement: Mild Bleeding Controlled with: Pressure Patient tolerated procedure: Patient tolerated procedure well Assessment/Plan Assessment: Nonhealing postsurgical wound left groin status post surgical excision of necrotizing fasciitis. Bilateral lower extremity edema. Morbid obesity. Type 2 diabetes mellitus Plan: The patient was seen and examined at the wound center today and was updated on the plan of care. A subcutaneous debridement was performed today. The patient tolerated the procedure well. The patients wound care will consist of: Aquacell extra dressing changes change daily, continue with wound VAC holiday. Aquacel extra to left abdominal fold ulcer. Unable to keep purraply application in place. Wound cultures were reviewed prior and negative. Baseline bloodwork reviewed which demonstrated a slightly low pre-albumin and patient was advised to use Glucerna or high-protein with meals. Repeat lab work WNL. Prealbumin WNL now. Previous records were requested for continuity of care. Patient educated on the importance of diet on wound healing and instructed to increase protein and vitamin C intake. Patient verbalized understanding. Patient will follow up at wound healing center in one week or sooner if needed. Plastic surgery consultation - no surgery indicated. Did discuss with patient the importance of blood sugar control in wound healing. Given delayed wound healing, will apply for [facility] for left abdominal fold ulcer. Patient to follow-up in 1 weeks due to the holiday or sooner if needed.Patient currently in complex wound care plan. This note was generated with [employer] dictation software. It may contain incorrect words, spelling, and punctuation that were not noted in checking the note before signing. Code Visit 111xxx-113xx: 51890 Jessica subq tissue 20 sq cm/<
--- NOTE | 2018-03-26 14:38 | PN.PCM_ITS ---
(1) Non-healing surgical wound of left groin Status: Acute Qualifiers: Code(s): T81.89XA - Other complications of procedures, not elsewhere classified, initial encounter (2) Skin ulcer of abdominal wall with fat layer exposed Status: Acute Code(s): L98.492 - Non-pressure chronic ulcer of skin of other sites with fat layer exposed Comment: left abdominal fold (3) History of necrotising fasciitis Status: Acute Code(s): Z87.39 - Personal history of other diseases of the musculoskeletal system and connective tissue (4) Lymphedema of both lower extremities Status: Acute Code(s): I89.0 - Lymphedema, not elsewhere classified (5) Morbid obesity Status: Acute Code(s): E66.01 - Morbid (severe) obesity due to excess calories (6) Type 2 diabetes mellitus Status: Acute Qualifiers: Code(s): E11.9 - Type 2 diabetes mellitus without complications Type of Wound Date of Service: 03/20/18 Chief Complaint: Nonhealing wound status post surgical excision of necrotizing fasciitis left groin History of Wound: 46-year-old white male who presents to the wound healing center today with complaint of left groin ulceration status post surgical excision of necrotizing fasciitis. He is a past medical history which is significant for that of type 2 diabetes mellitus, gout, diabetic neuropathy, schizophrenia, bilateral lymphedema, and schizophrenia. The patient states that what initially started as a pimple in his left groin progressed to necrotizing fasciitis and he had to have this surgically debrided in April 2017. He was admitted to [facility] for 2 weeks and then [facility] for 6 weeks afterwards. He states that the groin ulcer which extends to his left lower abdomen has been slowly improving and he has been doing daily Aquacel AG dressings with an ABD for the drainage. He does state that he has had 3 wound vacs in the past which were unable to be utilized due to the location of his wound. He denies any foul-smelling discharge or systemic signs of infection at this time. The patient otherwise denies any fever, chills, nausea, vomiting, shortness of breath, chest pain or pressure, palpitations, orthopnea, syncope or presyncopal episodes. Progress of Wound: Wounds are stable at this time, surrounding wound excoriation is now resolved, wound beds are moist and clean and without signs of gross infection at this time, There was a bridge of skin that has epithelialized and now made into 2 separate wounds wound 1 left groin and wound to left lower abdominal fold. The purapply remained on the abdominal fold ulcer 8 days and on the left groin for only one day. Patient has been using aquacell extra. Patient continues to increase his oral protein supplementation with whey protein. Continues to have small amount of serosanguineous drainage. The patient otherwise denies any fever, chills, nausea, vomiting, shortness of breath, chest pain or pressure, palpitations, orthopnea, lower extremity edema, syncope or presyncopal episodes. - Physical Exam Vital Signs Temp Pulse Resp BP 96.8 F L 86 18 139/69 H 03/20/18 14:25 03/20/18 14:25 03/20/18 14:25 03/20/18 14:25 General: Alert, Oriented x3, Cooperative, No apparent distress HEENT: Atraumatic Cardiovascular: Regular rate Abdomen: Soft, Non Tender, Obese Extremities: No clubbing, No cyanosis, No edema Skin: Ulcer/ Wound - left groin and abdominal fold ulcer with adherant slough and devitalized tissue, no signs of infection. Musculoskeletal: No Tenderness to Palpation of Joints or Extremities, No Muscle Wasting Neurological: Cranial nerves II-XII grossly intact, Neuro grossly intact Psych/Mental Status: Normal Affect, Appropriate, Alert and oriented to time, place, person, mood and affect Debridement Note Post-Debridement Measurements/Treatment WC - Nurse 2 - General Ulcer CM Notes Start: 02/20/18 12:33 Freq: Status: Active Protocol: Activity Type Activity Date Activity User E-Sign Co-Sign Detail Recorded Client Recorded Date Recorded By Document 02/20/18 13:48 [id number] 02/20/18 13:50 TM Document 02/27/18 15:35 [id number] 02/27/18 15:38 TM Document 03/20/18 15:03 [id number] 03/20/18 15:04 02/20/18 02/27/18 03/20/18 13:48 15:35 15:03 Wound Center Nurse 2 #2 Left Abdominal Fold -Time 13:48 15:35 15:03 -Correct Patient Yes Yes Yes -Correct Side, Site, Position Yes Yes Yes -Correct Procedure Yes Yes Yes -Procedure Performed Yes Yes Yes -Type of Procedure Debridement Debridement Debridement -Clinical Debridement Subcutaneous Subcutaneous Subcutaneous -Post Debridement Size (cm) - Length 5.9 0.7 4.4 -Post Debridement Size (cm) - Width 0.9 4.4 0.8 -Post Debridement Size (cm) - Depth 0.1 0.1 0.1 -Total Square Cm 5.31 3.08 3.52 -Wound/Ulcer Outcome Not Healed Not Healed Not Healed -Ulcer Cleansing Rinsed/ Rinsed/ Not Cleansed Irrigated with Irrigated with Saline Saline -Foul Odor after Cleansing No No No -Bioengineered Tissue No Yes No -Type of bioengineered Tissue [id number] -Expiration Date 04/23/20 07/11/20 -Product Lot Number [id number] -Percent Used 100 100 -Saline Lot Number [id number] -Topical Lidocaine (%) 4 4 -Bleeding Controlled with Pressure Pressure Pressure -Offloading No -Treatment Response Procedure Procedure Tolerated Well Tolerated Well #1- LEFT GROIN- POST OP -Time 13:49 15:36 15:03 -Correct Patient Yes Yes Yes -Correct Side, Site, Position Yes Yes Yes -Correct Procedure Yes Yes Yes -Procedure Performed Yes Yes Yes -Type of Procedure Debridement Debridement Debridement -Clinical Debridement Subcutaneous Subcutaneous Subcutaneous -Post Debridement Size (cm) - Length 4.6 3.8 4 -Post Debridement Size (cm) - Width 16.0 15.7 16.3 -Post Debridement Size (cm) - Depth 0.1 0.1 0.1 -Total Square Cm 73.60 59.66 65.2 -Wound/Ulcer Outcome Not Healed Not Healed Not Healed -Ulcer Cleansing Rinsed/ Rinsed/ Not Cleansed Irrigated with Irrigated with Saline Saline -Foul Odor after Cleansing No No No -Bioengineered Tissue No No No -Bleeding Controlled with Pressure Pressure Pressure -Offloading No -Treatment Response Procedure Procedure Tolerated Well Tolerated Well Pain Scale: 0-10 Numeric Is Patient Pain Free? Yes Yes Yes Wound debrided: left groin skin ulcer Laterality: Left Type of Debridement: Excisional debridement Anesthesia Used: 5% Lidocaine Gel Depth: in the subcutaneous layer Percentage of wound debrided: 100 Instrument Used: 7mm curette Tissue Removed: slough and devitalized tissue Severity: Fat Layer Exposed Amount of bleeding with debridement: Mild Bleeding Controlled with: Pressure Patient tolerated procedure well - Additional Wound Wound debrided: left abdominal skin ulcer Laterality: Left Type of Debridement: Excisional debridement Anesthesia Used: 5% Lidocaine Gel Depth: in the subcutaneous layer Percentage of wound debrided: 100 Instrument Used: 7mm curette Tissue Removed: slough and devitalized tissue Severity: Fat Layer Exposed Amount of bleeding with debridement: Mild Bleeding Controlled with: Pressure Patient tolerated procedure: Patient tolerated procedure well Assessment/Plan Assessment: Nonhealing postsurgical wound left groin status post surgical excision of necrotizing fasciitis. Bilateral lower extremity edema. Morbid obesity. Type 2 diabetes mellitus Plan: The patient was seen and examined at the wound center today and was updated on the plan of care. A subcutaneous debridement was performed today. The patient tolerated the procedure well. The patients wound care will consist of: Aquacell extra dressing changes change daily, continue with wound VAC holiday. Aquacel extra to left abdominal fold ulcer. Unable to keep purraply application in place. Wound cultures were reviewed prior and negative. Baseline bloodwork reviewed which demonstrated a slightly low pre-albumin and patient was advised to use Glucerna or high-protein with meals. Repeat lab work WNL. Prealbumin WNL now. Previous records were requested for continuity of care. Patient educated on the importance of diet on wound healing and instructed to increase protein and vitamin C intake. Patient verbalized understanding. Patient will follow up at wound healing center in one week or sooner if needed. Plastic surgery consultation - no surgery indicated. Did discuss with patient the importance of blood sugar control in wound healing. Given delayed wound healing, will apply for [facility] for left abdominal fold ulcer. Patient to follow-up in 1 weeks due to the holiday or sooner if needed.Patient currently in complex wound care plan. This note was generated with [employer] dictation software. It may contain incorrect words, spelling, and punctuation that were not noted in checking the note before signing. Code Visit 111xxx-113xx: 70213 Jessica subq tissue 20 sq cm/<
== END 2018-03-21 23:59 ==
LOC: WC 14:30
PROVIDERS: Family Provider Family Medicine; PCP Family Medicine; Visit Provider Nurse Practitioner Family
DX: E11.622 Type 2 diabetes mellitus with other skin ulcer (principal); L98.492 Non-pressure chronic ulcer of skin of other sites with fat layer exposed; I89.0 Lymphedema, not elsewhere classified; E66.01 Morbid (severe) obesity due to excess calories; Z68.43 Body mass index [BMI] 50.0-59.9, adult; Z71.3 Dietary counseling and surveillance; Z87.39 Personal history of other diseases of the musculoskeletal system and connective tissue; E11.42 Type 2 diabetes mellitus with diabetic polyneuropathy; R60.0 Localized edema
CPT/HCPCS: 11042; 11045; 15271; 15272; 36415; 80053; 83036; 84134; 85025; 85652; 97606; Q4172

== ENCOUNTER 2018-04-17 15:00 | Outpatient (RCR) | payer MEDICARE, MEDICAID, SELFPAY ==
[2018-03-22 00:51] VITALS: BP 139/69; PULSE 86; RESP 18; TEMP 36
[2018-03-27 14:15] VITALS: BP 149/78; PULSE 87; RESP 16; TEMP 35.2
--- NOTE | 2018-03-27 19:10 | PCM.WC.PN ---
(1) Skin ulcer of abdominal wall with fat layer exposed Status: Acute Current Visit: Yes Code(s): L98.492 - Non-pressure chronic ulcer of skin of other sites with fat layer exposed Comment: left abdominal fold (2) Non-healing surgical wound of left groin Status: Acute Current Visit: Yes Qualifiers: Code(s): T81.89XA - Other complications of procedures, not elsewhere classified, initial encounter (3) History of necrotising fasciitis Status: Acute Current Visit: Yes Code(s): Z87.39 - Personal history of other diseases of the musculoskeletal system and connective tissue (4) Lymphedema of both lower extremities Status: Acute Current Visit: Yes Code(s): I89.0 - Lymphedema, not elsewhere classified (5) Morbid obesity Status: Acute Current Visit: Yes Code(s): E66.01 - Morbid (severe) obesity due to excess calories (6) Type 2 diabetes mellitus Status: Acute Current Visit: Yes Qualifiers: Code(s): E11.9 - Type 2 diabetes mellitus without complications Type of Wound Date of Service: 03/27/18 Chief Complaint: Nonhealing wound status post surgical excision of necrotizing fasciitis left groin History of Wound: 46-year-old white male who presents to the wound healing center today with complaint of left groin ulceration status post surgical excision of necrotizing fasciitis. He is a past medical history which is significant for that of type 2 diabetes mellitus, gout, diabetic neuropathy, schizophrenia, bilateral lymphedema, and schizophrenia. The patient states that what initially started as a pimple in his left groin progressed to necrotizing fasciitis and he had to have this surgically debrided in April 2017. He was admitted to [facility] for 2 weeks and then [facility] for 6 weeks afterwards. He states that the groin ulcer which extends to his left lower abdomen has been slowly improving and he has been doing daily Aquacel AG dressings with an ABD for the drainage. He does state that he has had 3 wound vacs in the past which were unable to be utilized due to the location of his wound. He denies any foul-smelling discharge or systemic signs of infection at this time. The patient otherwise denies any fever, chills, nausea, vomiting, shortness of breath, chest pain or pressure, palpitations, orthopnea, syncope or presyncopal episodes. Progress of Wound: Wounds are stable at this time, surrounding wound excoriation is now resolved, wound beds are moist and clean and without signs of gross infection at this time, There was a bridge of skin that has epithelialized and now made into 2 separate wounds wound 1 left groin and wound to left lower abdominal fold. He has done well with vac holiday. Patient continues to increase his oral protein supplementation with whey protein. Continues to have moderate amount of serosanguineous drainage from left groin wound. The patient otherwise denies any fever, chills, nausea, vomiting, shortness of breath, chest pain or pressure, palpitations, orthopnea, lower extremity edema, syncope or presyncopal episodes. - Physical Exam Vital Signs Temp Pulse Resp BP 95.3 F L 87 16 149/78 H 03/27/18 14:15 03/27/18 14:15 03/27/18 14:15 03/27/18 14:15 General: Alert, Oriented x3, Cooperative, No apparent distress HEENT: Atraumatic Cardiovascular: Regular rate Abdomen: Bowel Sounds Present, Soft, Non Tender, Non-Distended, Obese Skin: Ulcer/ Wound - Ulceration present left abdominal fold and left groin with adherent slough, see nursing documentation, no signs of infection at this time. Moderate serosanguineous discharge Wound Measurements and Assessment WC - Nurse 1 - General Ulcer Measurement Start: 03/27/18 14:15 Freq: Status: Active Protocol: Activity Type Activity Date Activity User E-Sign Co-Sign Detail Recorded Client Recorded Date Recorded By Document 03/27/18 14:15 [id number] 03/27/18 14:17 03/27/18 14:15 Wound Center Nurse 1 [Ulcer Assessment] #2 Left Abdominal Fold -Combined with other wound No -Current Size (cm) - Length 2.5 -Current Size (cm) - Width 16.7 -Current Size (cm) - Depth 0.1 -Total Square Cm 41.75 -Photo Taken No -Epithelialization None Present -Tunneling No -Undermining/Tunneling No -Circular Undermining No -Exudate Amt Medium (34-66%) -Exudate Type Serosanguineous -Wound Margin Distinct, Outline Attached -Granulation Amt Medium (34-66%) -Granulation Quality Red -Slough/Fibrin Yes -Necrosis Amt None Present (0 %) -Necrotic Tissue Type Adherent Slough -Structure Exposed None/Limited to Skin Breakdown -Texture (Inessa-wound Skin Appearance) Scarring -Moisture (Inessa-wound Skin Appearance Maceration ) -Color (Inessa-wound Skin Appearance) Assessed -Temperature (Inessa-wound Skin No Abnormality Appearance) (Pt Warm) -Tenderness on Palpation (Inessa-wound No Skin Appearance) -Ulcer Cleansing soap -Foul Odor after Cleansing No -Anesthetic Used 4% Lidocaine Solution #1- LEFT GROIN- POST OP -Combined with other wound No -Current Size (cm) - Length 0.7 -Current Size (cm) - Width 4.3 -Current Size (cm) - Depth 0.1 -Total Square Cm 3.01 -Photo Taken No -Epithelialization None Present -Tunneling No -Undermining/Tunneling No -Circular Undermining No -Exudate Amt Medium (34-66%) -Exudate Type Serosanguineous -Wound Margin Distinct, Outline Attached -Granulation Amt Medium (34-66%) -Granulation Quality Red -Slough/Fibrin Yes -Necrosis Amt None Present (0 %) -Necrotic Tissue Type Adherent Slough -Structure Exposed None/Limited to Skin Breakdown -Texture (Inessa-wound Skin Appearance) Scarring -Moisture (Inessa-wound Skin Appearance Assessed ) Maceration -Color (Inessa-wound Skin Appearance) No Abnormality Assessed -Temperature (Inessa-wound Skin No Abnormality Appearance) (Pt Warm) -Tenderness on Palpation (Inessa-wound No Skin Appearance) -Ulcer Cleansing soap -Foul Odor after Cleansing No -Anesthetic Used 4% Lidocaine Solution [Edema Assessment] -Lower Limb Edema Present NA - Nurse 2 - General Ulcer CM Notes Start: 03/27/18 14:15 Freq: Status: Active Protocol: Activity Type Activity Date Activity User E-Sign Co-Sign Detail Recorded Client Recorded Date Recorded By Document 03/27/18 16:00 [id number] 03/27/18 16:02 03/27/18 16:00 Wound Center Nurse 2 [Procedure/Treatment] #2 Left Abdominal Fold -Time 16:00 -Correct Patient Yes -Correct Side, Site, Position Yes -Correct Procedure Yes -Procedure Performed Yes -Type of Procedure Debridement -Clinical Debridement Subcutaneous -Post Debridement Size (cm) - Length 0.8 -Post Debridement Size (cm) - Width 4.4 -Post Debridement Size (cm) - Depth 0.1 -Total Square Cm 3.52 -Wound/Ulcer Outcome Not Healed -Ulcer Cleansing Rinsed/ Irrigated with Saline -Foul Odor after Cleansing No -Bioengineered Tissue No -Topical Lidocaine (%) 4 -Bleeding Controlled with Pressure -Offloading No -Treatment Response Procedure Tolerated Well #1- LEFT GROIN- POST OP -Time 16:00 -Correct Patient Yes -Correct Side, Site, Position Yes -Correct Procedure Yes -Procedure Performed Yes -Type of Procedure Debridement -Clinical Debridement Subcutaneous -Post Debridement Size (cm) - Length 3.8 -Post Debridement Size (cm) - Width 15.9 -Post Debridement Size (cm) - Depth 0.1 -Total Square Cm 60.42 -Wound/Ulcer Outcome Not Healed -Ulcer Cleansing Rinsed/ Irrigated with Saline -Foul Odor after Cleansing No -Bioengineered Tissue Yes -Type of bioengineered Tissue [id number] -Expiration Date 07/28/20 -Product Lot Number [id number] -Percent Used 100 -Saline Lot Number [id number] -Topical Lidocaine (%) 4 -Bleeding Controlled with Pressure -Offloading No -Treatment Response Procedure Tolerated Well [See Physician Procedure note for Specifics] Pain Scale: 0-10 Numeric [Pain] -Is Patient Pain Free? Yes Neurological: Neuro grossly intact Psych/Mental Status: Normal Affect, Appropriate, Alert and oriented to time, place, person, mood and affect Debridement Note Post-Debridement Measurements/Treatment WC - Nurse 2 - General Ulcer CM Notes Start: 03/27/18 14:15 Freq: Status: Active Protocol: Activity Type Activity Date Activity User E-Sign Co-Sign Detail Recorded Client Recorded Date Recorded By Document 03/27/18 16:00 [id number] 03/27/18 16:02 03/27/18 16:00 Wound Center Nurse 2 #2 Left Abdominal Fold -Time 16:00 -Correct Patient Yes -Correct Side, Site, Position Yes -Correct Procedure Yes -Procedure Performed Yes -Type of Procedure Debridement -Clinical Debridement Subcutaneous -Post Debridement Size (cm) - Length 0.8 -Post Debridement Size (cm) - Width 4.4 -Post Debridement Size (cm) - Depth 0.1 -Total Square Cm 3.52 -Wound/Ulcer Outcome Not Healed -Ulcer Cleansing Rinsed/ Irrigated with Saline -Foul Odor after Cleansing No -Bioengineered Tissue No -Topical Lidocaine (%) 4 -Bleeding Controlled with Pressure -Offloading No -Treatment Response Procedure Tolerated Well #1- LEFT GROIN- POST OP -Time 16:00 -Correct Patient Yes -Correct Side, Site, Position Yes -Correct Procedure Yes -Procedure Performed Yes -Type of Procedure Debridement -Clinical Debridement Subcutaneous -Post Debridement Size (cm) - Length 3.8 -Post Debridement Size (cm) - Width 15.9 -Post Debridement Size (cm) - Depth 0.1 -Total Square Cm 60.42 -Wound/Ulcer Outcome Not Healed -Ulcer Cleansing Rinsed/ Irrigated with Saline -Foul Odor after Cleansing No -Bioengineered Tissue Yes -Type of bioengineered Tissue [id number] -Expiration Date 07/28/20 -Product Lot Number [id number] -Percent Used 100 -Saline Lot Number [id number] -Topical Lidocaine (%) 4 -Bleeding Controlled with Pressure -Offloading No -Treatment Response Procedure Tolerated Well Pain Scale: 0-10 Numeric Is Patient Pain Free? Yes Wound debrided: Left groin wound status post necrotizing fasciitis Laterality: Left Type of Debridement: Excisional debridement Anesthesia Used: 5% Lidocaine Gel Depth: Down to and including healthy tissue, in the subcutaneous layer Percentage of wound debrided: 100 Instrument Used: 7mm curette Tissue Removed: Slough and devitalized tissue Severity: Fat Layer Exposed Amount of bleeding with debridement: Mild Bleeding Controlled with: Pressure Patient tolerated procedure well - Additional Wound Wound debrided: Left abdominal fold ulcer Laterality: Left Type of Debridement: Excisional debridement Anesthesia Used: 5% Lidocaine Gel Depth: in the subcutaneous layer Percentage of wound debrided: 100 Instrument Used: 7mm curette Tissue Removed: Slough and devitalized tissue Severity: Fat Layer Exposed Amount of bleeding with debridement: Mild Bleeding Controlled with: Pressure Patient tolerated procedure: Patient tolerated procedure well Assessment/Plan Active Problems History of necrotising fasciitis (Acute) Lymphedema of both lower extremities (Acute) Type 2 diabetes mellitus (Acute) Morbid obesity (Acute) Non-healing surgical wound of left groin (Acute) Skin ulcer of abdominal wall with fat layer exposed (Acute) left abdominal fold Assessment: Nonhealing postsurgical wound left groin status post surgical excision of necrotizing fasciitis. Bilateral lower extremity edema. Morbid obesity. Type 2 diabetes mellitus Plan: The patient was seen and examined at the wound center today and was updated on the plan of care. A subcutaneous debridement was performed today. The patient tolerated the procedure well. The patients wound care will consist of: Purapply AM was applied to left groin ulcer and secured with steris and wound veil, Aquacel extra was placed over top, continue wound VAC holiday at this time. Aquacel extra to left abdominal fold ulcer. Discussed that if application of pure apply comes off he should utilize Aquacel extra daily dressing changes. Wound cultures were reviewed prior and negative. Baseline bloodwork reviewed which demonstrated a slightly low pre-albumin and patient was advised to use Glucerna or high-protein with meals. Repeat lab work WNL. Prealbumin WNL now. Previous records were requested for continuity of care. Patient educated on the importance of diet on wound healing and instructed to increase protein and vitamin C intake. Patient verbalized understanding. Patient will follow up at wound healing center in one week or sooner if needed. Plastic surgery consultation - no surgery indicated. Did discuss with patient the importance of blood sugar control in wound healing. Patient to follow-up in 1 week or sooner if needed. This note was generated with [employer] dictation software. It may contain incorrect words, spelling, and punctuation that were not noted in checking the note before signing. Code Visit 111xxx-113xx: 30185 Jessica subq tissue 20 sq cm/< 150xxx-152xx: [id number] Skin sub graft trnk/arm/leg - [id number]
--- NOTE | 2018-03-28 11:15 | PN.PCM_ITS ---
(1) Skin ulcer of abdominal wall with fat layer exposed Status: Acute Current Visit: Yes Code(s): L98.492 - Non-pressure chronic ulcer of skin of other sites with fat layer exposed Comment: left abdominal fold (2) Non-healing surgical wound of left groin Status: Acute Current Visit: Yes Qualifiers: Code(s): T81.89XA - Other complications of procedures, not elsewhere classified, initial encounter (3) History of necrotising fasciitis Status: Acute Current Visit: Yes Code(s): Z87.39 - Personal history of other diseases of the musculoskeletal system and connective tissue (4) Lymphedema of both lower extremities Status: Acute Current Visit: Yes Code(s): I89.0 - Lymphedema, not elsewhere classified (5) Morbid obesity Status: Acute Current Visit: Yes Code(s): E66.01 - Morbid (severe) obesity due to excess calories (6) Type 2 diabetes mellitus Status: Acute Current Visit: Yes Qualifiers: Code(s): E11.9 - Type 2 diabetes mellitus without complications Type of Wound Date of Service: 03/27/18 Chief Complaint: Nonhealing wound status post surgical excision of necrotizing fasciitis left groin History of Wound: 46-year-old white male who presents to the wound healing center today with complaint of left groin ulceration status post surgical excision of necrotizing fasciitis. He is a past medical history which is significant for that of type 2 diabetes mellitus, gout, diabetic neuropathy, schizophrenia, bilateral lymphedema, and schizophrenia. The patient states that what initially started as a pimple in his left groin progressed to necrotizing fasciitis and he had to have this surgically debrided in April 2017. He was admitted to [facility] for 2 weeks and then [facility] for 6 weeks afterwards. He states that the groin ulcer which extends to his left lower abdomen has been slowly improving and he has been doing daily Aquacel AG dressings with an ABD for the drainage. He does state that he has had 3 wound vacs in the past which were unable to be utilized due to the location of his wound. He denies any foul-smelling discharge or systemic signs of infection at this time. The patient otherwise denies any fever, chills, nausea, vomiting, shortness of breath, chest pain or pressure, palpitations, orthopnea, syncope or presyncopal episodes. Progress of Wound: Wounds are stable at this time, surrounding wound excoriation is now resolved, wound beds are moist and clean and without signs of gross infection at this time, There was a bridge of skin that has epithelialized and now made into 2 separate wounds wound 1 left groin and wound to left lower abdominal fold. He has done well with vac holiday. Patient continues to incre ase his oral protein supplementation with whey protein. Continues to have moderate amount of serosanguineous drainage from left groin wound. The patient otherwise denies any fever, chills, nausea, vomiting, shortness of breath, chest pain or pressure, palpitations, orthopnea, lower extremity edema, syncope or presyncopal episodes. - Physical Exam Vital Signs Temp Pulse Resp BP 95.3 F L 87 16 149/78 H 03/27/18 14:15 03/27/18 14:15 03/27/18 14:15 03/27/18 14:15 General: Alert, Oriented x3, Cooperative, No apparent distress HEENT: Atraumatic Cardiovascular: Regular rate Abdomen: Bowel Sounds Present, Soft, Non Tender, Non-Distended, Obese Skin: Ulcer/ Wound - Ulceration present left abdominal fold and left groin with adherent slough, see nursing documentation, no signs of infection at this time. Moderate serosanguineous discharge Wound Measurements and Assessment WC - Nurse 1 - General Ulcer Measurement Start: 03/27/18 14:15 Freq: Status: Active Protocol: Activity Type Activity Date Activity User E-Sign Co-Sign Detail Recorded Client Recorded Date Recorded By Document 03/27/18 14:15 [id number] 03/27/18 14:17 03/27/18 14:15 Wound Center Nurse 1 [Ulcer Assessment] #2 Left Abdominal Fold -Combined with other wound No -Current Size (cm) - Length 2.5 -Current Size (cm) - Width 16.7 -Current Size (cm) - Depth 0.1 -Total Square Cm 41.75 -Photo Taken No -Epithelialization None Present -Tunneling No -Undermining/Tunneling No -Circular Undermining No -Exudate Amt Medium (34-66%) -Exudate Type Serosanguineous -Wound Margin Distinct, Outline Attached -Granulation Amt Medium (34-66%) -Granulation Quality Red -Slough/Fibrin Yes -Necrosis Amt None Present (0 %) -Necrotic Tissue Type Adherent Slough -Structure Exposed None/Limited to Skin Breakdown -Texture (Inessa-wound Skin Appearance) Scarring -Moisture (Inessa-wound Skin Appearance Maceration ) -Color (Inessa-wound Skin Appearance) Assessed -Temperature (Inessa-wound Skin No Abnormality Appearance) (Pt Warm) -Tenderness on Palpation (Inessa-wound No Skin Appearance) -Ulcer Cleansing soap -Foul Odor after Cleansing No -Anesthetic Used 4% Lidocaine Solution #1- LEFT GROIN- POST OP -Combined with other wound No -Current Size (cm) - Length 0.7 -Current Size (cm) - Width 4.3 -Current Size (cm) - Depth 0.1 -Total Square Cm 3.01 -Photo Taken No -Epithelialization None Present -Tunneling No -Undermining/Tunneling No -Circular Undermining No -Exudate Amt Medium (34-66%) -Exudate Type Serosanguineous -Wound Margin Distinct, Outline Attached -Granulation Amt Medium (34-66%) -Granulation Quality Red -Slough/Fibrin Yes -Necrosis Amt None Present (0 %) -Necrotic Tissue Type Adherent Slough -Structure Exposed None/Limited to Skin Breakdown -Texture (Inessa-wound Skin Appearance) Scarring -Moisture (Inessa-wound Skin Appearance Assessed ) Maceration -Color (Inessa-wound Skin Appearance) No Abnormality Assessed -Temperature (Inessa-wound Skin No Abnormality Appearance) (Pt Warm) -Tenderness on Palpation (Inessa-wound No Skin Appearance) -Ulcer Cleansing soap -Foul Odor after Cleansing No -Anesthetic Used 4% Lidocaine Solution [Edema Assessment] -Lower Limb Edema Present NA - Nurse 2 - General Ulcer CM Notes Start: 03/27/18 14:15 Freq: Status: Active Protocol: Activity Type Activity Date Activity User E-Sign Co-Sign Detail Recorded Client Recorded Date Recorded By Document 03/27/18 16:00 [id number] 03/27/18 16:02 03/27/18 16:00 Wound Center Nurse 2 [Procedure/Treatment] #2 Left Abdominal Fold -Time 16:00 -Correct Patient Yes -Correct Side, Site, Position Yes -Correct Procedure Yes -Procedure Performed Yes -Type of Procedure Debridement -Clinical Debridement Subcutaneous -Post Debridement Size (cm) - Length 0.8 -Post Debridement Size (cm) - Width 4.4 -Post Debridement Size (cm) - Depth 0.1 -Total Square Cm 3.52 -Wound/Ulcer Outcome Not Healed -Ulcer Cleansing Rinsed/ Irrigated with Saline -Foul Odor after Cleansing No -Bioengineered Tissue No -Topical Lidocaine (%) 4 -Bleeding Controlled with Pressure -Offloading No -Treatment Response Procedure Tolerated Well #1- LEFT GROIN- POST OP -Time 16:00 -Correct Patient Yes -Correct Side, Site, Position Yes -Correct Procedure Yes -Procedure Performed Yes -Type of Procedure Debridement -Clinical Debridement Subcutaneous -Post Debridement Size (cm) - Length 3.8 -Post Debridement Size (cm) - Width 15.9 -Post Debridement Size (cm) - Depth 0.1 -Total Square Cm 60.42 -Wound/Ulcer Outcome Not Healed -Ulcer Cleansing Rinsed/ Irrigated with Saline -Foul Odor after Cleansing No -Bioengineered Tissue Yes -Type of bioengineered Tissue [id number] -Expiration Date 07/28/20 -Product Lot Number [id number] -Percent Used 100 -Saline Lot Number [id number] -Topical Lidocaine (%) 4 -Bleeding Controlled with Pressure -Offloading No -Treatment Response Procedure Tolerated Well [See Physician Procedure note for Specifics] Pain Scale: 0-10 Numeric [Pain] -Is Patient Pain Free? Yes Neurological: Neuro grossly intact Psych/Mental Status: Normal Affect, Appropriate, Alert and oriented to time, place, person, mood and affect Debridement Note Post-Debridement Measurements/Treatment WC - Nurse 2 - General Ulcer CM Notes Start: 03/27/18 14:15 Freq: Status: Active Protocol: Activity Type Activity Date Activity User E-Sign Co-Sign Detail Recorded Client Recorded Date Recorded By Document 03/27/18 16:00 [id number] 03/27/18 16:02 03/27/18 16:00 Wound Center Nurse 2 #2 Left Abdominal Fold -Time 16:00 -Correct Patient Yes -Correct Side, Site, Position Yes -Correct Procedure Yes -Procedure Performed Yes -Type of Procedure Debridement -Clinical Debridement Subcutaneous -Post Debridement Size (cm) - Length 0.8 -Post Debridement Size (cm) - Width 4.4 -Post Debridement Size (cm) - Depth 0.1 -Total Square Cm 3.52 -Wound/Ulcer Outcome Not Healed -Ulcer Cleansing Rinsed/ Irrigated with Saline -Foul Odor after Cleansing No -Bioengineered Tissue No -Topical Lidocaine (%) 4 -Bleeding Controlled with Pressure -Offloading No -Treatment Response Procedure Tolerated Well #1- LEFT GROIN- POST OP -Time 16:00 -Correct Patient Yes -Correct Side, Site, Position Yes -Correct Procedure Yes -Procedure Performed Yes -Type of Procedure Debridement -Clinical Debridement Subcutaneous -Post Debridement Size (cm) - Length 3.8 -Post Debridement Size (cm) - Width 15.9 -Post Debridement Size (cm) - Depth 0.1 -Total Square Cm 60.42 -Wound/Ulcer Outcome Not Healed -Ulcer Cleansing Rinsed/ Irrigated with Saline -Foul Odor after Cleansing No -Bioengineered Tissue Yes -Type of bioengineered Tissue [id number] -Expiration Date 07/28/20 -Product Lot Number [id number] -Percent Used 100 -Saline Lot Number [id number] -Topical Lidocaine (%) 4 -Bleeding Controlled with Pressure -Offloading No -Treatment Response Procedure Tolerated Well Pain Scale: 0-10 Numeric Is Patient Pain Free? Yes Wound debrided: Left groin wound status post necrotizing fasciitis Laterality: Left Type of Debridement: Excisional debridement Anesthesia Used: 5% Lidocaine Gel Depth: Down to and including healthy tissue, in the subcutaneous layer Percentage of wound debrided: 100 Instrument Used: 7mm curette Tissue Removed: Slough and devitalized tissue Severity: Fat Layer Exposed Amount of bleeding with debridement: Mild Bleeding Controlled with: Pressure Patient tolerated procedure well - Additional Wound Wound debrided: Left abdominal fold ulcer Laterality: Left Type of Debridement: Excisional debridement Anesthesia Used: 5% Lidocaine Gel Depth: in the subcutaneous layer Percentage of wound debrided: 100 Instrument Used: 7mm curette Tissue Removed: Slough and devitalized tissue Severity: Fat Layer Exposed Amount of bleeding with debridement: Mild Bleeding Controlled with: Pressure Patient tolerated procedure: Patient tolerated procedure well Assessment/Plan Active Problems History of necrotising fasciitis (Acute) Lymphedema of both lower extremities (Acute) Type 2 diabetes mellitus (Acute) Morbid obesity (Acute) Non-healing surgical wound of left groin (Acute) Skin ulcer of abdominal wall with fat layer exposed (Acute) left abdominal fold Assessment: Nonhealing postsurgical wound left groin status post surgical excision of necrotizing fasciitis. Bilateral lower extremity edema. Morbid obesity. Type 2 diabetes mellitus Plan: The patient was seen and examined at the wound center today and was updated on the plan of care. A subcutaneous debridement was performed today. The patient tolerated the procedure well. The patients wound care will consist of: Purapply AM was applied to left groin ulcer and secured with steris and wound veil, Aquacel extra was placed over top, continue wound VAC holiday at this time. Aquacel extra to left abdominal fold ulcer. Discussed that if application of pure apply comes off he should utilize Aquacel extra daily dressing changes. Wound cultures were reviewed prior and negative. Baseline bloodwork reviewed which demonstrated a slightly low pre-albumin and patient was advised to use Glucerna or high-protein with meals. Repeat lab work WNL. Prealbumin WNL now. Previous records were requested for continuity of care. Patient educated on the importance of diet on wound healing and instructed to increase protein and vitamin C intake. Patient verbalized understanding. Patient will follow up at wound healing center in one week or sooner if needed. Plastic surgery consultation - no surgery indicated. Did discuss with patient the importance of blood sugar control in wound healing. Patient to follow-up in 1 week or sooner if needed. This note was generated with [employer] dictation software. It may contain incorrect words, spelling, and punctuation that were not noted in checking the note before signing. Code Visit 111xxx-113xx: 84320 Jessica subq tissue 20 sq cm/< 150xxx-152xx: 22846 Skin sub graft trnk/arm/leg - [id number]
[2018-04-10 14:50] VITALS: BP 147/88; PULSE 101; RESP 18; TEMP 36.1
--- NOTE | 2018-04-10 20:53 | PCM.WC.PN ---
(1) Skin ulcer of abdominal wall with fat layer exposed Status: Acute Code(s): L98.492 - Non-pressure chronic ulcer of skin of other sites with fat layer exposed Comment: left abdominal fold (2) Non-healing surgical wound of left groin Status: Acute Qualifiers: Code(s): T81.89XA - Other complications of procedures, not elsewhere classified, initial encounter (3) History of necrotising fasciitis Status: Acute Code(s): Z87.39 - Personal history of other diseases of the musculoskeletal system and connective tissue (4) Lymphedema of both lower extremities Status: Acute Code(s): I89.0 - Lymphedema, not elsewhere classified (5) Morbid obesity Status: Acute Code(s): E66.01 - Morbid (severe) obesity due to excess calories (6) Type 2 diabetes mellitus Status: Acute Qualifiers: Code(s): E11.9 - Type 2 diabetes mellitus without complications Type of Wound Date of Service: 04/10/18 Chief Complaint: Nonhealing wound status post surgical excision of necrotizing fasciitis left groin History of Wound: 46-year-old white male who presents to the wound healing center today with complaint of left groin ulceration status post surgical excision of necrotizing fasciitis. He is a past medical history which is significant for that of type 2 diabetes mellitus, gout, diabetic neuropathy, schizophrenia, bilateral lymphedema, and schizophrenia. The patient states that what initially started as a pimple in his left groin progressed to necrotizing fasciitis and he had to have this surgically debrided in April 2017. He was admitted to [facility] for 2 weeks and then [facility] for 6 weeks afterwards. He states that the groin ulcer which extends to his left lower abdomen has been slowly improving and he has been doing daily Aquacel AG dressings with an ABD for the drainage. He does state that he has had 3 wound vacs in the past which were unable to be utilized due to the location of his wound. He denies any foul-smelling discharge or systemic signs of infection at this time. The patient otherwise denies any fever, chills, nausea, vomiting, shortness of breath, chest pain or pressure, palpitations, orthopnea, syncope or presyncopal episodes. Progress of Wound: Wounds are stable at this time, surrounding wound excoriation is now resolved, wound beds are moist and clean and without signs of gross infection at this time, There was a bridge of skin that has epithelialized and now made into 2 separate wounds wound 1 left groin and wound to left lower abdominal fold. He has done well with vac holiday, did keep purrapply on for 8 days. Patient continues to increase his oral protein supplementation with whey protein. Continues to have moderate amount of serosanguineous drainage from left groin wound. The patient otherwise denies any fever, chills, nausea, vomiting, shortness of breath, chest pain or pressure, palpitations, orthopnea, lower extremity edema, syncope or presyncopal episodes. - Physical Exam Vital Signs Temp Pulse Resp BP 97 F L 101 H 18 147/88 H 04/10/18 14:50 04/10/18 14:50 04/10/18 14:50 04/10/18 14:50 General: Alert, Oriented x3, Cooperative, No apparent distress HEENT: Atraumatic Oral: Moist Mucosa Neck: Supple Lungs: Clear to auscultation Cardiovascular: Regular rate Abdomen: Soft, Non Tender, Obese Extremities: No clubbing, No cyanosis Skin: Ulcer/ Wound - See nursing documentation, nonhealing wound to left abdominal fold and left groin with adherent slough, no signs of obvious infection at this time Musculoskeletal: No Tenderness to Palpation of Joints or Extremities, No Muscle Wasting Neurological: Neuro grossly intact Psych/Mental Status: Normal Affect, Appropriate, Alert and oriented to time, place, person, mood and affect Debridement Note Post-Debridement Measurements/Treatment WC - Nurse 2 - General Ulcer CM Notes Start: 03/27/18 14:15 Freq: Status: Active Protocol: Activity Type Activity Date Activity User E-Sign Co-Sign Detail Recorded Client Recorded Date Recorded By Document 03/27/18 16:00 [id number] 03/27/18 16:02 TM Document 04/10/18 15:38 [id number] 04/10/18 15:52 03/27/18 04/10/18 16:00 15:38 Wound Center Nurse 2 #2 Left Abdominal Fold -Time 16:00 15:42 -Correct Patient Yes Yes -Correct Side, Site, Position Yes Yes -Correct Procedure Yes Yes -Procedure Performed Yes Yes -Type of Procedure Debridement Debridement -Clinical Debridement Subcutaneous Subcutaneous -Post Debridement Size (cm) - Length 0.8 0.6 -Post Debridement Size (cm) - Width 4.4 4.6 -Post Debridement Size (cm) - Depth 0.1 0.1 -Total Square Cm 3.52 2.76 -Wound/Ulcer Outcome Not Healed Not Healed -Ulcer Cleansing Rinsed/ Not Cleansed Irrigated with Saline -Foul Odor after Cleansing No No -Bioengineered Tissue No No -Topical Lidocaine (%) 4 -Bleeding Controlled with Pressure NA -Offloading No No -Treatment Response Procedure Procedure Tolerated Well Tolerated Well #1- LEFT GROIN- POST OP -Time 16:00 15:43 -Correct Patient Yes Yes -Correct Side, Site, Position Yes Yes -Correct Procedure Yes Yes -Procedure Performed Yes Yes -Type of Procedure Debridement Debridement -Clinical Debridement Subcutaneous Subcutaneous -Post Debridement Size (cm) - Length 3.8 3.5 -Post Debridement Size (cm) - Width 15.9 14.5 -Post Debridement Size (cm) - Depth 0.1 0.1 -Total Square Cm 60.42 50.75 -Wound/Ulcer Outcome Not Healed Not Healed -Ulcer Cleansing Rinsed/ Not Cleansed Irrigated with Saline -Foul Odor after Cleansing No No -Bioengineered Tissue Yes Yes -Type of bioengineered Tissue [id number] -Expiration Date 07/28/20 07/28/20 -Product Lot Number [id number] -Percent Used 100 100 -Saline Lot Number [id number] -Topical Lidocaine (%) 4 -Bleeding Controlled with Pressure NA -Offloading No No -Treatment Response Procedure Tolerated Well Pain Scale: 0-10 Numeric Is Patient Pain Free? Yes Yes Wound debrided: Left abdominal fold and left groin ulcer Laterality: Left Type of Debridement: Excisional debridement Anesthesia Used: 5% Lidocaine Gel Depth: in the subcutaneous layer Percentage of wound debrided: 100 Instrument Used: 7mm curette Tissue Removed: Slough and devitalized tissue Severity: Fat Layer Exposed Amount of bleeding with debridement: Mild Bleeding Controlled with: Pressure Patient tolerated procedure well Assessment/Plan Assessment: Nonhealing postsurgical wound left groin status post surgical excision of necrotizing fasciitis. Bilateral lower extremity edema. Morbid obesity. Type 2 diabetes mellitus Plan: The patient was seen and examined at the wound center today and was updated on the plan of care. A subcutaneous debridement was performed today. The patient tolerated the procedure well. The patients wound care will consist of: Purapply AM was applied to left groin ulcer and secured with steris and wound veil, Aquacel extra was placed over top, continue wound VAC holiday at this time. Aquacel extra to left abdominal fold ulcer, change daily. Discussed that if application of purapply comes off he should utilize Aquacel extra daily dressing changes. Wound cultures were reviewed prior and negative. Baseline bloodwork reviewed which demonstrated a slightly low pre-albumin and patient was advised to use Glucerna or high-protein with meals. Repeat lab work WNL. Prealbumin WNL now. Previous records were requested for continuity of care. Patient educated on the importance of diet on wound healing and instructed to increase protein and vitamin C intake. Patient verbalized understanding. Plastic surgery consultation - no surgery indicated. Did discuss with patient the importance of blood sugar control in wound healing. Patient to follow-up in 1 week or sooner if needed. This note was generated with [employer] dictation software. It may contain incorrect words, spelling, and punctuation that were not noted in checking the note before signing. Code Visit 111xxx-113xx: 20708 Jessica subq tissue 20 sq cm/< 150xxx-152xx: 12587 Skin sub graft trnk/arm/leg
--- NOTE | 2018-04-16 08:58 | PN.PCM_ITS ---
(1) Skin ulcer of abdominal wall with fat layer exposed Status: Acute Code(s): L98.492 - Non-pressure chronic ulcer of skin of other sites with fat layer exposed Comment: left abdominal fold (2) Non-healing surgical wound of left groin Status: Acute Qualifiers: Code(s): T81.89XA - Other complications of procedures, not elsewhere classified, initial encounter (3) History of necrotising fasciitis Status: Acute Code(s): Z87.39 - Personal history of other diseases of the musculoskeletal system and connective tissue (4) Lymphedema of both lower extremities Status: Acute Code(s): I89.0 - Lymphedema, not elsewhere classified (5) Morbid obesity Status: Acute Code(s): E66.01 - Morbid (severe) obesity due to excess calories (6) Type 2 diabetes mellitus Status: Acute Qualifiers: Code(s): E11.9 - Type 2 diabetes mellitus without complications Type of Wound Date of Service: 04/10/18 Chief Complaint: Nonhealing wound status post surgical excision of necrotizing fasciitis left groin History of Wound: 46-year-old white male who presents to the wound healing center today with complaint of left groin ulceration status post surgical excision of necrotizing fasciitis. He is a past medical history which is significant for that of type 2 diabetes mellitus, gout, diabetic neuropathy, schizophrenia, bilateral lymphedema, and schizophrenia. The patient states that what initially started as a pimple in his left groin progressed to necrotizing fasciitis and he had to have this surgically debrided in April 2017. He was admitted to [facility] for 2 weeks and then [facility] for 6 weeks afterwards. He states that the groin ulcer which extends to his left lower abdomen has been slowly improving and he has been doing daily Aquacel AG dressings with an ABD for the drainage. He does state that he has had 3 wound vacs in the past which were unable to be utilized due to the location of his wound. He denies any foul-smelling discharge or systemic signs of infection at this time. The patient otherwise denies any fever, chills, nausea, vomiting, shortness of breath, chest pain or pressure, palpitations, orthopnea, syncope or presyncopal episodes. Progress of Wound: Wounds are stable at this time, surrounding wound excoriation is now resolved, wound beds are moist and clean and without signs of gross infection at this time, There was a bridge of skin that has epithelialized and now made into 2 separate wounds wound 1 left groin and wound to left lower abdominal fold. He has done well with vac holiday, did keep purrapply on for 8 days. Patient continues to increase his oral protein supplementation with whey protein. Continues to have moderate amount of serosanguineous drainage from left groin wound. The patient otherwise denies any fever, chills, nausea, vomiting, shortness of breath, chest pain or pressure, palpitations, orthopnea, lower extremity edema, syncope or presyncopal episodes. - Physical Exam Vital Signs Temp Pulse Resp BP 97 F L 101 H 18 147/88 H 04/10/18 14:50 04/10/18 14:50 04/10/18 14:50 04/10/18 14:50 General: Alert, Oriented x3, Cooperative, No apparent distress HEENT: Atraumatic Oral: Moist Mucosa Neck: Supple Lungs: Clear to auscultation Cardiovascular: Regular rate Abdomen: Soft, Non Tender, Obese Extremities: No clubbing, No cyanosis Skin: Ulcer/ Wound - See nursing documentation, nonhealing wound to left abdominal fold and left groin with adherent slough, no signs of obvious infection at this time Musculoskeletal: No Tenderness to Palpation of Joints or Extremities, No Muscle Wasting Neurological: Neuro grossly intact Psych/Mental Status: Normal Affect, Appropriate, Alert and oriented to time, place, person, mood and affect Debridement Note Post-Debridement Measurements/Treatment WC - Nurse 2 - General Ulcer CM Notes Start: 03/27/18 14:15 Freq: Status: Active Protocol: Activity Type Activity Date Activity User E-Sign Co-Sign Detail Recorded Client Recorded Date Recorded By Document 03/27/18 16:00 [id number] 03/27/18 16:02 TM Document 04/10/18 15:38 [id number] 04/10/18 15:52 03/27/18 04/10/18 16:00 15:38 Wound Center Nurse 2 #2 Left Abdominal Fold -Time 16:00 15:42 -Correct Patient Yes Yes -Correct Side, Site, Position Yes Yes -Correct Procedure Yes Yes -Procedure Performed Yes Yes -Type of Procedure Debridement Debridement -Clinical Debridement Subcutaneous Subcutaneous -Post Debridement Size (cm) - Length 0.8 0.6 -Post Debridement Size (cm) - Width 4.4 4.6 -Post Debridement Size (cm) - Depth 0.1 0.1 -Total Square Cm 3.52 2.76 -Wound/Ulcer Outcome Not Healed Not Healed -Ulcer Cleansing Rinsed/ Not Cleansed Irrigated with Saline -Foul Odor after Cleansing No No -Bioengineered Tissue No No -Topical Lidocaine (%) 4 -Bleeding Controlled with Pressure NA -Offloading No No -Treatment Response Procedure Procedure Tolerated Well Tolerated Well #1- LEFT GROIN- POST OP -Time 16:00 15:43 -Correct Patient Yes Yes -Correct Side, Site, Position Yes Yes -Correct Procedure Yes Yes -Procedure Performed Yes Yes -Type of Procedure Debridement Debridement -Clinical Debridement Subcutaneous Subcutaneous -Post Debridement Size (cm) - Length 3.8 3.5 -Post Debridement Size (cm) - Width 15.9 14.5 -Post Debridement Size (cm) - Depth 0.1 0.1 -Total Square Cm 60.42 50.75 -Wound/Ulcer Outcome Not Healed Not Healed -Ulcer Cleansing Rinsed/ Not Cleansed Irrigated with Saline -Foul Odor after Cleansing No No -Bioengineered Tissue Yes Yes -Type of bioengineered Tissue [id number] -Expiration Date 07/28/20 07/28/20 -Product Lot Number [id number] -Percent Used 100 100 -Saline Lot Number [id number] -Topical Lidocaine (%) 4 -Bleeding Controlled with Pressure NA -Offloading No No -Treatment Response Procedure Tolerated Well Pain Scale: 0-10 Numeric Is Patient Pain Free? Yes Yes Wound debrided: Left abdominal fold and left groin ulcer Laterality: Left Type of Debridement: Excisional debridement Anesthesia Used: 5% Lidocaine Gel Depth: in the subcutaneous layer Percentage of wound debrided: 100 Instrument Used: 7mm curette Tissue Removed: Slough and devitalized tissue Severity: Fat Layer Exposed Amount of bleeding with debridement: Mild Bleeding Controlled with: Pressure Patient tolerated procedure well Assessment/Plan Assessment: Nonhealing postsurgical wound left groin status post surgical excision of necrotizing fasciitis. Bilateral lower extremity edema. Morbid obesity. Type 2 diabetes mellitus Plan: The patient was seen and examined at the wound center today and was updated on the plan of care. A subcutaneous debridement was performed today. The patient tolerated the procedure well. The patients wound care will consist of: Purapply AM was applied to left groin ulcer and secured with steris and wound veil, Aquacel extra was placed over top, continue wound VAC holiday at this time. Aquacel extra to left abdominal fold ulcer, change daily. Discussed that if application of purapply comes off he should utilize Aquacel extra daily dressing changes. Wound cultures were reviewed prior and negative. Baseline bloodwork reviewed which demonstrated a slightly low pre-albumin and patient was advised to use Glucerna or high-protein with meals. Repeat lab work WNL. Prealbumin WNL now. Previous records were requested for continuity of care. Patient educated on the importance of diet on wound healing and instructed to increase protein and vitamin C intake. Patient verbalized understanding. Plastic surgery consultation - no surgery indicated. Did discuss with patient the importance of blood sugar control in wound healing. Patient to follow-up in 1 week or sooner if needed. This note was generated with [employer] dictation software. It may contain incorrect words, spelling, and punctuation that were not noted in checking the note before signing. Code Visit 111xxx-113xx: [id number] Jessica subq tissue 20 sq cm/< 150xxx-152xx: [id number] Skin sub graft trnk/arm/leg
[2018-04-17 14:53] VITALS: BP 144/77; PULSE 93; RESP 20; TEMP 35.7
--- NOTE | 2018-04-17 19:25 | PCM.WC.PN ---
(1) Skin ulcer of abdominal wall with fat layer exposed Status: Acute Code(s): L98.492 - Non-pressure chronic ulcer of skin of other sites with fat layer exposed Comment: left abdominal fold (2) Non-healing surgical wound of left groin Status: Acute Qualifiers: Code(s): T81.89XA - Other complications of procedures, not elsewhere classified, initial encounter (3) History of necrotising fasciitis Status: Acute Code(s): Z87.39 - Personal history of other diseases of the musculoskeletal system and connective tissue (4) Lymphedema of both lower extremities Status: Acute Code(s): I89.0 - Lymphedema, not elsewhere classified (5) Morbid obesity Status: Acute Code(s): E66.01 - Morbid (severe) obesity due to excess calories (6) Type 2 diabetes mellitus Status: Acute Qualifiers: Code(s): E11.9 - Type 2 diabetes mellitus without complications Type of Wound Date of Service: 04/17/18 Chief Complaint: Nonhealing wound status post surgical excision of necrotizing fasciitis left groin History of Wound: 46-year-old white male who presents to the wound healing center today with complaint of left groin ulceration status post surgical excision of necrotizing fasciitis. He is a past medical history which is significant for that of type 2 diabetes mellitus, gout, diabetic neuropathy, schizophrenia, bilateral lymphedema, and schizophrenia. The patient states that what initially started as a pimple in his left groin progressed to necrotizing fasciitis and he had to have this surgically debrided in April 2017. He was [facility] 2 weeks and then [facility] for 6 weeks afterwards. He states that the groin ulcer which extends to his left lower abdomen has been slowly improving and he has been doing daily Aquacel AG dressings with an ABD for the drainage. He does state that he has had 3 wound vacs in the past which were unable to be utilized due to the location of his wound. He denies any foul-smelling discharge or systemic signs of infection at this time. The patient otherwise denies any fever, chills, nausea, vomiting, shortness of breath, chest pain or pressure, palpitations, orthopnea, syncope or presyncopal episodes. Progress of Wound: Wounds are stable at this time, surrounding wound excoriation is now resolved, wound beds are moist and clean and without signs of gross infection at this time, There was a bridge of skin that has epithelialized and now made into 2 separate wounds wound 1 left groin and wound to left lower abdominal fold. Patient continues to increase his oral protein supplementation with whey protein. Continues to have small amount of serosanguineous drainage from left groin wound. The patient otherwise denies any fever, chills, nausea, vomiting, shortness of breath, chest pain or pressure, palpitations, orthopnea, lower extremity edema, syncope or presyncopal episodes. - Physical Exam Vital Signs Temp Pulse Resp BP 96.2 F L 93 20 H 144/77 H 04/17/18 14:53 04/17/18 14:53 04/17/18 14:53 04/17/18 14:53 General: Alert, Oriented x3, Cooperative, No apparent distress HEENT: Atraumatic Oral: Moist Mucosa Lungs: Clear to auscultation Cardiovascular: Regular rate Abdomen: Soft, Non Tender, Obese Extremities: No clubbing, No cyanosis, No edema Skin: Ulcer/ Wound - Ulceration to the left abdominal fold and left groin with adherent slough, no signs of infection at this time, no malodor and mild serosanguineous discharge present. Musculoskeletal: No Tenderness to Palpation of Joints or Extremities Neurological: Neuro grossly intact Psych/Mental Status: Normal Affect, Appropriate, Alert and oriented to time, place, person, mood and affect Debridement Note Post-Debridement Measurements/Treatment WC - Nurse 2 - General Ulcer CM Notes Start: 03/27/18 14:15 Freq: Status: Active Protocol: Activity Type Activity Date Activity User E-Sign Co-Sign Detail Recorded Client Recorded Date Recorded By Document 03/27/18 16:00 [id number] 03/27/18 16:02 Document 04/10/18 15:38 [id number] 04/10/18 15:52 CS Document 04/17/18 16:05 [id number] 04/17/18 16:11 03/27/18 04/10/18 04/17/18 16:00 15:38 16:05 Wound Center Nurse 2 #2 Left Abdominal Fold -Time 16:00 15:42 16:05 -Correct Patient Yes Yes Yes -Correct Side, Site, Position Yes Yes Yes -Correct Procedure Yes Yes Yes -Procedure Performed Yes Yes Yes -Type of Procedure Debridement Debridement Debridement -Clinical Debridement Subcutaneous Subcutaneous Subcutaneous -Post Debridement Size (cm) - Length 0.8 0.6 0.6 -Post Debridement Size (cm) - Width 4.4 4.6 4.3 -Post Debridement Size (cm) - Depth 0.1 0.1 0.1 -Total Square Cm 3.52 2.76 2.58 -Wound/Ulcer Outcome Not Healed Not Healed Not Healed -Ulcer Cleansing Rinsed/ Not Cleansed Not Cleansed Irrigated with Saline -Foul Odor after Cleansing No No No -Bioengineered Tissue No No No -Topical Lidocaine (%) 4 -Bleeding Controlled with Pressure NA NA -Offloading No No No -Treatment Response Procedure Procedure Procedure Tolerated Well Tolerated Well Tolerated Well #1- LEFT GROIN- POST OP -Time 16:00 15:43 16:06 -Correct Patient Yes Yes Yes -Correct Side, Site, Position Yes Yes Yes -Correct Procedure Yes Yes Yes -Procedure Performed Yes Yes Yes -Type of Procedure Debridement Debridement Debridement -Clinical Debridement Subcutaneous Subcutaneous Subcutaneous -Post Debridement Size (cm) - Length 3.8 3.5 3 -Post Debridement Size (cm) - Width 15.9 14.5 14.8 -Post Debridement Size (cm) - Depth 0.1 0.1 0.1 -Total Square Cm 60.42 50.75 44.4 -Wound/Ulcer Outcome Not Healed Not Healed Not Healed -Ulcer Cleansing Rinsed/ Not Cleansed Not Cleansed Irrigated with Saline -Foul Odor after Cleansing No No No -Bioengineered Tissue Yes Yes Yes -Type of bioengineered Tissue [id number] -Expiration Date 07/28/20 07/28/20 09/18/20 -Product Lot Number [id number] -Percent Used 100 100 100 -Saline Lot Number [id number] -Topical Lidocaine (%) 4 -Bleeding Controlled with Pressure NA NA -Offloading No No No -Treatment Response Procedure Procedure Tolerated Well Tolerated Well Pain Scale: 0-10 Numeric Is Patient Pain Free? Yes Yes Yes Wound debrided: Left abdominal fold and left groin ulcer Laterality: Left Type of Debridement: Excisional debridement Depth: in the subcutaneous layer Percentage of wound debrided: 100 Instrument Used: 7mm curette Tissue Removed: Slough and devitalized tissue Severity: Fat Layer Exposed Amount of bleeding with debridement: Mild Bleeding Controlled with: Pressure Patient tolerated procedure well Assessment/Plan Assessment: Nonhealing postsurgical wound left groin status post surgical excision of necrotizing fasciitis. Bilateral lower extremity edema. Morbid obesity. Type 2 diabetes mellitus Plan: The patient was seen and examined at the wound center today and was updated on the plan of care. A subcutaneous debridement was performed today. The patient tolerated the procedure well. The patients wound care will consist of: Purapply AM was applied to left groin ulcer and secured with steris and wound veil, Aquacel extra was placed over top, continue wound VAC holiday at this time. Aquacel extra to left abdominal fold ulcer, change daily. Discussed that if application of purapply comes off he should utilize Aquacel extra daily dressing changes. Wound cultures were reviewed prior and negative. Baseline bloodwork reviewed which demonstrated a slightly low pre-albumin and patient was advised to use Glucerna or high-protein with meals. Repeat lab work WNL. Prealbumin WNL now. Previous records were requested for continuity of care. Patient educated on the importance of diet on wound healing and instructed to increase protein and vitamin C intake. Patient verbalized understanding. Plastic surgery consultation - no surgery indicated. Did discuss with patient the importance of blood sugar control in wound healing. Patient to follow-up in 1 week or sooner if needed. This note was generated with [employer] software. It may contain incorrect words, spelling, and punctuation that were not noted in checking the note before signing. Code Visit 111xxx-113xx: 68028 Jessica subq tissue 20 sq cm/< 150xxx-152xx: [id number] Skin sub graft trnk/arm/leg
--- NOTE | 2018-04-23 09:29 | PN.PCM_ITS ---
(1) Skin ulcer of abdominal wall with fat layer exposed Status: Acute Code(s): L98.492 - Non-pressure chronic ulcer of skin of other sites with fat layer exposed Comment: left abdominal fold (2) Non-healing surgical wound of left groin Status: Acute Qualifiers: Code(s): T81.89XA - Other complications of procedures, not elsewhere classified, initial encounter (3) History of necrotising fasciitis Status: Acute Code(s): Z87.39 - Personal history of other diseases of the musculoskeletal system and connective tissue (4) Lymphedema of both lower extremities Status: Acute Code(s): I89.0 - Lymphedema, not elsewhere classified (5) Morbid obesity Status: Acute Code(s): E66.01 - Morbid (severe) obesity due to excess calories (6) Type 2 diabetes mellitus Status: Acute Qualifiers: Code(s): E11.9 - Type 2 diabetes mellitus without complications Type of Wound Date of Service: 04/17/18 Chief Complaint: Nonhealing wound status post surgical excision of necrotizing fasciitis left groin History of Wound: 46-year-old white male who presents to the wound healing center today with complaint of left groin ulceration status post surgical excision of necrotizing fasciitis. He is a past medical history which is significant for that of type 2 diabetes mellitus, gout, diabetic neuropathy, schizophrenia, bilateral lymphedema, and schizophrenia. The patient states that what initially started as a pimple in his left groin progressed to necrotizing fasciitis and he had to have this surgically debrided in April 2017. He was admitted to [facility] for 2 weeks and then [facility] for 6 weeks afterwards. He states that the groin ulcer which extends to his left lower abdomen has been slowly improving and he has been doing daily Aquacel AG dressings with an ABD for the drainage. He does state that he has had 3 wound vacs in the past which were unable to be utilized due to the location of his wound. He denies any foul-smelling discharge or systemic signs of infection at this time. The patient otherwise denies any fever, chills, nausea, vomiting, shortness of breath, chest pain or pressure, palpitations, orthopnea, syncope or presyncopal episodes. Progress of Wound: Wounds are stable at this time, surrounding wound excoriation is now resolved, wound beds are moist and clean and without signs of gross infection at this time, There was a bridge of skin that has epithelialized and now made into 2 separate wounds wound 1 left groin and wound to left lower abdominal fold. Patient continues to increase his oral protein supplementation with whey protein. Continues to have small amount of serosanguineous drainage from left groin wound. The patient otherwise denies any fever, chills, nausea, vomiting, shortness of breath, chest pain or pressure, palpitations, orthopnea, lower extremity edema, syncope or presyncopal episodes. - Physical Exam Vital Signs Temp Pulse Resp BP 96.2 F L 93 20 H 144/77 H 04/17/18 14:53 04/17/18 14:53 04/17/18 14:53 04/17/18 14:53 General: Alert, Oriented x3, Cooperative, No apparent distress HEENT: Atraumatic Oral: Moist Mucosa Lungs: Clear to auscultation Cardiovascular: Regular rate Abdomen: Soft, Non Tender, Obese Extremities: No clubbing, No cyanosis, No edema Skin: Ulcer/ Wound - Ulceration to the left abdominal fold and left groin with adherent slough, no signs of infection at this time, no malodor and mild serosanguineous discharge present. Musculoskeletal: No Tenderness to Palpation of Joints or Extremities Neurological: Neuro grossly intact Psych/Mental Status: Normal Affect, Appropriate, Alert and oriented to time, place, person, mood and affect Debridement Note Post-Debridement Measurements/Treatment WC - Nurse 2 - General Ulcer CM Notes Start: 03/27/18 14:15 Freq: Status: Active Protocol: Activity Type Activity Date Activity User E-Sign Co-Sign Detail Recorded Client Recorded Date Recorded By Document 03/27/18 16:00 [id number] 03/27/18 16:02 Document 04/10/18 15:38 [id number] 04/10/18 15:52 CS Document 04/17/18 16:05 [id number] 04/17/18 16:11 03/27/18 04/10/18 04/17/18 16:00 15:38 16:05 Wound Center Nurse 2 #2 Left Abdominal Fold -Time 16:00 15:42 16:05 -Correct Patient Yes Yes Yes -Correct Side, Site, Position Yes Yes Yes -Correct Procedure Yes Yes Yes -Procedure Performed Yes Yes Yes -Type of Procedure Debridement Debridement Debridement -Clinical Debridement Subcutaneous Subcutaneous Subcutaneous -Post Debridement Size (cm) - Length 0.8 0.6 0.6 -Post Debridement Size (cm) - Width 4.4 4.6 4.3 -Post Debridement Size (cm) - Depth 0.1 0.1 0.1 -Total Square Cm 3.52 2.76 2.58 -Wound/Ulcer Outcome Not Healed Not Healed Not Healed -Ulcer Cleansing Rinsed/ Not Cleansed Not Cleansed Irrigated with Saline -Foul Odor after Cleansing No No No -Bioengineered Tissue No No No -Topical Lidocaine (%) 4 -Bleeding Controlled with Pressure NA NA -Offloading No No No -Treatment Response Procedure Procedure Procedure Tolerated Well Tolerated Well Tolerated Well #1- LEFT GROIN- POST OP -Time 16:00 15:43 16:06 -Correct Patient Yes Yes Yes -Correct Side, Site, Position Yes Yes Yes -Correct Procedure Yes Yes Yes -Procedure Performed Yes Yes Yes -Type of Procedure Debridement Debridement Debridement -Clinical Debridement Subcutaneous Subcutaneous Subcutaneous -Post Debridement Size (cm) - Length 3.8 3.5 3 -Post Debridement Size (cm) - Width 15.9 14.5 14.8 -Post Debridement Size (cm) - Depth 0.1 0.1 0.1 -Total Square Cm 60.42 50.75 44.4 -Wound/Ulcer Outcome Not Healed Not Healed Not Healed -Ulcer Cleansing Rinsed/ Not Cleansed Not Cleansed Irrigated with Saline -Foul Odor after Cleansing No No No -Bioengineered Tissue Yes Yes Yes -Type of bioengineered Tissue [id number] -Expiration Date 07/28/20 07/28/20 09/18/20 -Product Lot Number [id number] -Percent Used 100 100 100 -Saline Lot Number [id number] -Topical Lidocaine (%) 4 -Bleeding Controlled with Pressure NA NA -Offloading No No No -Treatment Response Procedure Procedure Tolerated Well Tolerated Well Pain Scale: 0-10 Numeric Is Patient Pain Free? Yes Yes Yes Wound debrided: Left abdominal fold and left groin ulcer Laterality: Left Type of Debridement: Excisional debridement Depth: in the subcutaneous layer Percentage of wound debrided: 100 Instrument Used: 7mm curette Tissue Removed: Slough and devitalized tissue Severity: Fat Layer Exposed Amount of bleeding with debridement: Mild Bleeding Controlled with: Pressure Patient tolerated procedure well Assessment/Plan Assessment: Nonhealing postsurgical wound left groin status post surgical excision of necrotizing fasciitis. Bilateral lower extremity edema. Morbid obesity. Type 2 diabetes mellitus Plan: The patient was seen and examined at the wound center today and was updated on the plan of care. A subcutaneous debridement was performed today. The patient tolerated the procedure well. The patients wound care will consist of: Purapply AM was applied to left groin ulcer and secured with steris and wound veil, Aquacel extra was placed over top, continue wound VAC holiday at this time. Aquacel extra to left abdominal fold ulcer, change daily. Discussed that if application of purapply comes off he should utilize Aquacel extra daily dressing changes. Wound cultures were reviewed prior and negative. Baseline bloodwork reviewed which demonstrated a slightly low pre-albumin and patient was advised to use Glucerna or high-protein with meals. Repeat lab work WNL. Prealbumin WNL now. Previous records were requested for continuity of care. Patient educated on the importance of diet on wound healing and instructed to increase protein and vitamin C intake. Patient verbalized understanding. Plastic surgery consultation - no surgery indicated. Did discuss with patient the importance of blood sugar control in wound healing. Patient to follow-up in 1 week or sooner if needed. This note was generated with [employer]wyation software. It may contain incorrect words, spelling, and punctuation that were not noted in checking the note before signing. Code Visit 111xxx-113xx: 31445 Jessica subq tissue 20 sq cm/< 150xxx-152xx: [id number] Skin sub graft trnk/arm/leg
== END 2018-04-21 23:59 ==
LOC: WC 15:00
PROVIDERS: Family Provider Family Medicine; PCP Family Medicine; Visit Provider Nurse Practitioner Family
DX: E11.622 Type 2 diabetes mellitus with other skin ulcer (principal); L98.492 Non-pressure chronic ulcer of skin of other sites with fat layer exposed; I89.0 Lymphedema, not elsewhere classified; Z87.39 Personal history of other diseases of the musculoskeletal system and connective tissue; E66.01 Morbid (severe) obesity due to excess calories; Z71.3 Dietary counseling and surveillance; E11.42 Type 2 diabetes mellitus with diabetic polyneuropathy; R60.0 Localized edema
CPT/HCPCS: 11042; 11045; 15271; 15272; Q4172; Q4196

== ENCOUNTER 2018-05-22 15:30 | Outpatient (RCR) | payer MEDICARE, MEDICAID, SELFPAY ==
[2018-04-22 00:41] VITALS: BP 144/77; PULSE 93; RESP 20; TEMP 35.7
[2018-04-24 15:31] VITALS: BP 147/65; PULSE 92; RESP 18; TEMP 36.7
--- NOTE | 2018-04-24 19:40 | PCM.WC.PN ---
(1) Skin ulcer of abdominal wall with fat layer exposed Status: Acute Current Visit: Yes Code(s): L98.492 - Non-pressure chronic ulcer of skin of other sites with fat layer exposed Comment: left abdominal fold (2) Non-healing surgical wound of left groin Status: Acute Current Visit: Yes Qualifiers: Code(s): T81.89XA - Other complications of procedures, not elsewhere classified, initial encounter (3) History of necrotising fasciitis Status: Acute Current Visit: Yes Code(s): Z87.39 - Personal history of other diseases of the musculoskeletal system and connective tissue (4) Lymphedema of both lower extremities Status: Acute Current Visit: Yes Code(s): I89.0 - Lymphedema, not elsewhere classified (5) Morbid obesity Status: Acute Current Visit: Yes Code(s): E66.01 - Morbid (severe) obesity due to excess calories (6) Type 2 diabetes mellitus Status: Acute Current Visit: Yes Qualifiers: Code(s): E11.9 - Type 2 diabetes mellitus without complications Type of Wound Date of Service: 04/24/18 Chief Complaint: Nonhealing wound status post surgical excision of necrotizing fasciitis left groin History of Wound: 46-year-old white male who presents to the wound healing center today with complaint of left groin ulceration status post surgical excision of necrotizing fasciitis. He is a past medical history which is significant for that of type 2 diabetes mellitus, gout, diabetic neuropathy, schizophrenia, bilateral lymphedema, and schizophrenia. The patient states that what initially started as a pimple in his left groin progressed to necrotizing fasciitis and he had to have this surgically debrided in April 2017. He was admitted to [facility] for 2 weeks and then [facility] for 6 weeks afterwards. He states that the groin ulcer which extends to his left lower abdomen has been slowly improving and he has been doing daily Aquacel AG dressings with an ABD for the drainage. He does state that he has had 3 wound vacs in the past which were unable to be utilized due to the location of his wound. He denies any foul-smelling discharge or systemic signs of infection at this time. The patient otherwise denies any fever, chills, nausea, vomiting, shortness of breath, chest pain or pressure, palpitations, orthopnea, syncope or presyncopal episodes. Progress of Wound: Wounds are stable at this time, surrounding periwound bed is excoriated due to the steris from the purapply application that stayed on for 5 days, wound beds are moist and clean and without signs of gross infection at this time, There was a bridge of skin that has epithelialized and now made into 2 separate wounds wound 1 left groin and wound to left lower abdominal fold. Patient continues to increase his oral protein supplementation with whey protein. Continues to have moderate amount of serosanguineous drainage from left groin wound. The patient otherwise denies any fever, chills, nausea, vomiting, shortness of breath, chest pain or pressure, palpitations, orthopnea, lower extremity edema, syncope or presyncopal episodes. - Physical Exam Vital Signs Temp Pulse Resp BP 98.1 F 92 18 147/65 H 04/24/18 15:31 04/24/18 15:31 04/24/18 15:31 04/24/18 15:31 General: Alert, Oriented x3, Cooperative, No apparent distress HEENT: Atraumatic, PERRLA Oral: Moist Mucosa Lungs: Clear to auscultation Cardiovascular: Regular rate Abdomen: Soft, Non Tender, Obese Extremities: No clubbing, No cyanosis, Edema - generalized BLLE edema Skin: No rashes, No breakdown, Ulcer/ Wound - ulcer to left groin and abdominal fold with adherant slough, no signs of infection at this time, surrounding periwound bed excoriated from prior steris, otherwise no redness, warmth, or streaking Wound Measurements and Assessment WC - Nurse 1 - General Ulcer Measurement Start: 04/24/18 15:30 Freq: Status: Active Protocol: Activity Type Activity Date Activity User E-Sign Co-Sign Detail Recorded Client Recorded Date Recorded By Document 04/24/18 15:31 DL [id number] 04/24/18 15:38 DL 04/24/18 15:31 Wound Center Nurse 1 [Ulcer Assessment] #2 Left Abdominal Fold -Current Size (cm) - Length 0.8 -Current Size (cm) - Width 4 -Current Size (cm) - Depth 0.4 -Total Square Cm 3.2 -Photo Taken No -Exudate Amt Small (1-33%) -Exudate Type Serosanguineous -Wound Margin Distinct, Outline Attached -Granulation Amt Large (67-100%) -Granulation Quality [place] -Necrosis Amt Small (1-33%) -Necrotic Tissue Type Adherent Slough -Structure Exposed N/A -Texture (Inessa-wound Skin Appearance) Scarring -Moisture (Inessa-wound Skin Appearance Maceration ) -Color (Inessa-wound Skin Appearance) No Abnormality -Temperature (Inessa-wound Skin No Abnormality Appearance) (Pt Warm) -Tenderness on Palpation (Inessa-wound No Skin Appearance) -Ulcer Cleansing Wound Cleanser -Foul Odor after Cleansing No -Anesthetic Used 4% Lidocaine Solution #1- LEFT GROIN- POST OP -Current Size (cm) - Length 2.3 -Current Size (cm) - Width 15 -Current Size (cm) - Depth 1.1 -Total Square Cm 34.5 -Photo Taken No -Exudate Amt Medium (34-66%) -Exudate Type Serosanguineous -Wound Margin Distinct, Outline Attached -Granulation Amt Medium (34-66%) -Granulation Quality [place] Red -Necrosis Amt Medium (34-66%) -Necrotic Tissue Type Adherent Slough -Structure Exposed N/A -Texture (Inessa-wound Skin Appearance) Scarring -Moisture (Inessa-wound Skin Appearance Maceration ) -Color (Inessa-wound Skin Appearance) No Abnormality -Tenderness on Palpation (Inessa-wound No Skin Appearance) -Ulcer Cleansing Wound Cleanser -Foul Odor after Cleansing No -Anesthetic Used 4% Lidocaine Solution WC - Nurse 2 - General Ulcer CM Notes Start: 04/24/18 15:30 Freq: Status: Active Protocol: Activity Type Activity Date Activity User E-Sign Co-Sign Detail Recorded Client Recorded Date Recorded By Document 04/24/18 16:22 [id number] 04/24/18 16:24 04/24/18 16:22 Wound Center Nurse 2 [Procedure/Treatment] #2 Left Abdominal Fold -Time 16:23 -Correct Patient Yes -Correct Side, Site, Position Yes -Correct Procedure Yes -Procedure Performed Yes -Type of Procedure Debridement -Clinical Debridement Subcutaneous -Post Debridement Size (cm) - Length 3.3 -Post Debridement Size (cm) - Width 15 -Post Debridement Size (cm) - Depth 0.1 -Total Square Cm 49.5 -Wound/Ulcer Outcome Not Healed -Ulcer Cleansing Not Cleansed -Foul Odor after Cleansing No -Bioengineered Tissue No -Bleeding Controlled with Pressure -Offloading No -Treatment Response Procedure Tolerated Well #1- LEFT GROIN- POST OP -Time 16:23 -Correct Patient Yes -Correct Side, Site, Position Yes -Correct Procedure Yes -Procedure Performed Yes -Type of Procedure Debridement -Clinical Debridement Subcutaneous -Post Debridement Size (cm) - Length 0.7 -Post Debridement Size (cm) - Width 4 -Post Debridement Size (cm) - Depth 0.1 -Total Square Cm 2.8 -Wound/Ulcer Outcome Not Healed -Ulcer Cleansing Not Cleansed -Foul Odor after Cleansing No -Bioengineered Tissue No -Bleeding Controlled with Pressure -Offloading No -Treatment Response Procedure Tolerated Well [See Physician Procedure note for Specifics] Pain Scale: 0-10 Numeric [Pain] -Is Patient Pain Free? Yes Neurological: Neuro grossly intact Psych/Mental Status: Normal Affect, Appropriate, Alert and oriented to time, place, person, mood and affect Debridement Note Post-Debridement Measurements/Treatment WC - Nurse 2 - General Ulcer CM Notes Start: 04/24/18 15:30 Freq: Status: Active Protocol: Activity Type Activity Date Activity User E-Sign Co-Sign Detail Recorded Client Recorded Date Recorded By Document 04/24/18 16:22 [id number] 04/24/18 16:24 CS 04/24/18 16:22 Wound Center Nurse 2 #2 Left Abdominal Fold -Time 16:23 -Correct Patient Yes -Correct Side, Site, Position Yes -Correct Procedure Yes -Procedure Performed Yes -Type of Procedure Debridement -Clinical Debridement Subcutaneous -Post Debridement Size (cm) - Length 3.3 -Post Debridement Size (cm) - Width 15 -Post Debridement Size (cm) - Depth 0.1 -Total Square Cm 49.5 -Wound/Ulcer Outcome Not Healed -Ulcer Cleansing Not Cleansed -Foul Odor after Cleansing No -Bioengineered Tissue No -Bleeding Controlled with Pressure -Offloading No -Treatment Response Procedure Tolerated Well #1- LEFT GROIN- POST OP -Time 16:23 -Correct Patient Yes -Correct Side, Site, Position Yes -Correct Procedure Yes -Procedure Performed Yes -Type of Procedure Debridement -Clinical Debridement Subcutaneous -Post Debridement Size (cm) - Length 0.7 -Post Debridement Size (cm) - Width 4 -Post Debridement Size (cm) - Depth 0.1 -Total Square Cm 2.8 -Wound/Ulcer Outcome Not Healed -Ulcer Cleansing Not Cleansed -Foul Odor after Cleansing No -Bioengineered Tissue No -Bleeding Controlled with Pressure -Offloading No -Treatment Response Procedure Tolerated Well Pain Scale: 0-10 Numeric Is Patient Pain Free? Yes Wound debrided: left abdominal fold and left groin ulcer Laterality: Left Type of Debridement: Excisional debridement Anesthesia Used: 5% Lidocaine Gel Depth: in the subcutaneous layer Percentage of wound debrided: 100 Instrument Used: 7mm curette Tissue Removed: slough and devitalized tissue Severity: Fat Layer Exposed Amount of bleeding with debridement: Mild Bleeding Controlled with: Pressure Patient tolerated procedure well Assessment/Plan Active Problems History of necrotising fasciitis (Acute) Lymphedema of both lower extremities (Acute) Type 2 diabetes mellitus (Acute) Morbid obesity (Acute) Non-healing surgical wound of left groin (Acute) Skin ulcer of abdominal wall with fat layer exposed (Acute) left abdominal fold Assessment: Nonhealing postsurgical wound left groin status post surgical excision of necrotizing fasciitis. Bilateral lower extremity edema. Morbid obesity. Type 2 diabetes mellitus Plan: The patient was seen and examined at the wound center today and was updated on the plan of care. A subcutaneous debridement was performed today. The patient tolerated the procedure well. The patients wound care will consist of: Aquacel extra change daily to left abdominal fold and groin ulcer, will hold off on purrapply aplication due to surrounding skin excoriation from steris. Wound cultures were reviewed prior and negative. Baseline bloodwork reviewed which demonstrated a slightly low pre-albumin and patient was advised to use Glucerna or high-protein with meals. Repeat lab work WNL. Prealbumin WNL now. Previous records were requested for continuity of care. Patient educated on the importance of diet on wound healing and instructed to increase protein and vitamin C intake. Patient verbalized understanding. Plastic surgery consultation - no surgery indicated. Did discuss with patient the importance of blood sugar control in wound healing, recent A1C in 02/2018 was 6.1. Patient to follow-up in 1 week or sooner if needed. This note was generated with [employer] software. It may contain incorrect words, spelling, and punctuation that were not noted in checking the note before signing. Code Visit 111xxx-113xx: 37162 Jessica subq tissue 20 sq cm/< Add On Codes: 88023 Jessica subq tissue add-on
--- NOTE | 2018-04-25 09:44 | PN.PCM_ITS ---
(1) Skin ulcer of abdominal wall with fat layer exposed Status: Acute Current Visit: Yes Code(s): L98.492 - Non-pressure chronic ulcer of skin of other sites with fat layer exposed Comment: left abdominal fold (2) Non-healing surgical wound of left groin Status: Acute Current Visit: Yes Qualifiers: Code(s): T81.89XA - Other complications of procedures, not elsewhere classified, initial encounter (3) History of necrotising fasciitis Status: Acute Current Visit: Yes Code(s): Z87.39 - Personal history of other diseases of the musculoskeletal system and connective tissue (4) Lymphedema of both lower extremities Status: Acute Current Visit: Yes Code(s): I89.0 - Lymphedema, not elsewhere classified (5) Morbid obesity Status: Acute Current Visit: Yes Code(s): E66.01 - Morbid (severe) obesity due to excess calories (6) Type 2 diabetes mellitus Status: Acute Current Visit: Yes Qualifiers: Code(s): E11.9 - Type 2 diabetes mellitus without complications Type of Wound Date of Service: 04/24/18 Chief Complaint: Nonhealing wound status post surgical excision of necrotizing fasciitis left groin History of Wound: 46-year-old white male who presents to the wound healing center today with complaint of left groin ulceration status post surgical excision of necrotizing fasciitis. He is a past medical history which is significant for that of type 2 diabetes mellitus, gout, diabetic neuropathy, schizophrenia, bilateral lymphedema, and schizophrenia. The patient states that what initially started as a pimple in his left groin progressed to necrotizing fasciitis and he had to have this surgically debrided in April 2017. He was admitted to [facility] for 2 weeks and then [facility] for 6 weeks afterwards. He states that the groin ulcer which extends to his left lower abdomen has been slowly improving and he has been doing daily Aquacel AG dressings with an ABD for the drainage. He does state that he has had 3 wound vacs in the past which were unable to be utilized due to the location of his wound. He denies any foul-smelling discharge or systemic signs of infection at this time. The patient otherwise denies any fever, chills, nausea, vomiting, shortness of breath, chest pain or pressure, palpitations, orthopnea, syncope or presyncopal episodes. Progress of Wound: Wounds are stable at this time, surrounding periwound bed is excoriated due to the steris from the purapply application that stayed on for 5 days, wound beds are moist and clean and without signs of gross infection at this time, There was a bridge of skin that has epithelialized and now made into 2 separate wounds wound 1 left groin and wound to left lower abdominal fold. Patient continues to increase his oral protein supplementation with whey protein. Continues to have moderate amount of serosanguineous drainage from left groin wound. The patient otherwise denies any fever, chills, nausea, vomiting, shortness of breath, chest pain or pressure, palpitations, orthopnea, lower extremity edema, syncope or presyncopal episodes. - Physical Exam Vital Signs Temp Pulse Resp BP 98.1 F 92 18 147/65 H 04/24/18 15:31 04/24/18 15:31 04/24/18 15:31 04/24/18 15:31 General: Alert, Oriented x3, Cooperative, No apparent distress HEENT: Atraumatic, PERRLA Oral: Moist Mucosa Lungs: Clear to auscultation Cardiovascular: Regular rate Abdomen: Soft, Non Tender, Obese Extremities: No clubbing, No cyanosis, Edema - generalized BLLE edema Skin: No rashes, No breakdown, Ulcer/ Wound - ulcer to left groin and abdominal fold with adherant slough, no signs of infection at this time, surrounding periwound bed excoriated from prior steris, otherwise no redness, warmth, or streaking Wound Measurements and Assessment WC - Nurse 1 - General Ulcer Measurement Start: 04/24/18 15:30 Freq: Status: Active Protocol: Activity Type Activity Date Activity User E-Sign Co-Sign Detail Recorded Client Recorded Date Recorded By Document 04/24/18 15:31 DL [id number] 04/24/18 15:38 DL 04/24/18 15:31 Wound Center Nurse 1 [Ulcer Assessment] #2 Left Abdominal Fold -Current Size (cm) - Length 0.8 -Current Size (cm) - Width 4 -Current Size (cm) - Depth 0.4 -Total Square Cm 3.2 -Photo Taken No -Exudate Amt Small (1-33%) -Exudate Type Serosanguineous -Wound Margin Distinct, Outline Attached -Granulation Amt Large (67-100%) -Granulation Quality [place] -Necrosis Amt Small (1-33%) -Necrotic Tissue Type Adherent Slough -Structure Exposed N/A -Texture (Inessa-wound Skin Appearance) Scarring -Moisture (Inessa-wound Skin Appearance Maceration ) -Color (Inessa-wound Skin Appearance) No Abnormality -Temperature (Inessa-wound Skin No Abnormality Appearance) (Pt Warm) -Tenderness on Palpation (Inessa-wound No Skin Appearance) -Ulcer Cleansing Wound Cleanser -Foul Odor after Cleansing No -Anesthetic Used 4% Lidocaine Solution #1- LEFT GROIN- POST OP -Current Size (cm) - Length 2.3 -Current Size (cm) - Width 15 -Current Size (cm) - Depth 1.1 -Total Square Cm 34.5 -Photo Taken No -Exudate Amt Medium (34-66%) -Exudate Type Serosanguineous -Wound Margin Distinct, Outline Attached -Granulation Amt Medium (34-66%) -Granulation Quality [place] Red -Necrosis Amt Medium (34-66%) -Necrotic Tissue Type Adherent Slough -Structure Exposed N/A -Texture (Inessa-wound Skin Appearance) Scarring -Moisture (Inessa-wound Skin Appearance Maceration ) -Color (Inessa-wound Skin Appearance) No Abnormality -Tenderness on Palpation (Inessa-wound No Skin Appearance) -Ulcer Cleansing Wound Cleanser -Foul Odor after Cleansing No -Anesthetic Used 4% Lidocaine Solution WC - Nurse 2 - General Ulcer CM Notes Start: 04/24/18 15:30 Freq: Status: Active Protocol: Activity Type Activity Date Activity User E-Sign Co-Sign Detail Recorded Client Recorded Date Recorded By Document 04/24/18 16:22 [id number] 04/24/18 16:24 04/24/18 16:22 Wound Center Nurse 2 [Procedure/Treatment] #2 Left Abdominal Fold -Time 16:23 -Correct Patient Yes -Correct Side, Site, Position Yes -Correct Procedure Yes -Procedure Performed Yes -Type of Procedure Debridement -Clinical Debridement Subcutaneous -Post Debridement Size (cm) - Length 3.3 -Post Debridement Size (cm) - Width 15 -Post Debridement Size (cm) - Depth 0.1 -Total Square Cm 49.5 -Wound/Ulcer Outcome Not Healed -Ulcer Cleansing Not Cleansed -Foul Odor after Cleansing No -Bioengineered Tissue No -Bleeding Controlled with Pressure -Offloading No -Treatment Response Procedure Tolerated Well #1- LEFT GROIN- POST OP -Time 16:23 -Correct Patient Yes -Correct Side, Site, Position Yes -Correct Procedure Yes -Procedure Performed Yes -Type of Procedure Debridement -Clinical Debridement Subcutaneous -Post Debridement Size (cm) - Length 0.7 -Post Debridement Size (cm) - Width 4 -Post Debridement Size (cm) - Depth 0.1 -Total Square Cm 2.8 -Wound/Ulcer Outcome Not Healed -Ulcer Cleansing Not Cleansed -Foul Odor after Cleansing No -Bioengineered Tissue No -Bleeding Controlled with Pressure -Offloading No -Treatment Response Procedure Tolerated Well [See Physician Procedure note for Specifics] Pain Scale: 0-10 Numeric [Pain] -Is Patient Pain Free? Yes Neurological: Neuro grossly intact Psych/Mental Status: Normal Affect, Appropriate, Alert and oriented to time, place, person, mood and affect Debridement Note Post-Debridement Measurements/Treatment WC - Nurse 2 - General Ulcer CM Notes Start: 04/24/18 15:30 Freq: Status: Active Protocol: Activity Type Activity Date Activity User E-Sign Co-Sign Detail Recorded Client Recorded Date Recorded By Document 04/24/18 16:22 [id number] 04/24/18 16:24 CS 04/24/18 16:22 Wound Center Nurse 2 #2 Left Abdominal Fold -Time 16:23 -Correct Patient Yes -Correct Side, Site, Position Yes -Correct Procedure Yes -Procedure Performed Yes -Type of Procedure Debridement -Clinical Debridement Subcutaneous -Post Debridement Size (cm) - Length 3.3 -Post Debridement Size (cm) - Width 15 -Post Debridement Size (cm) - Depth 0.1 -Total Square Cm 49.5 -Wound/Ulcer Outcome Not Healed -Ulcer Cleansing Not Cleansed -Foul Odor after Cleansing No -Bioengineered Tissue No -Bleeding Controlled with Pressure -Offloading No -Treatment Response Procedure Tolerated Well #1- LEFT GROIN- POST OP -Time 16:23 -Correct Patient Yes -Correct Side, Site, Position Yes -Correct Procedure Yes -Procedure Performed Yes -Type of Procedure Debridement -Clinical Debridement Subcutaneous -Post Debridement Size (cm) - Length 0.7 -Post Debridement Size (cm) - Width 4 -Post Debridement Size (cm) - Depth 0.1 -Total Square Cm 2.8 -Wound/Ulcer Outcome Not Healed -Ulcer Cleansing Not Cleansed -Foul Odor after Cleansing No -Bioengineered Tissue No -Bleeding Controlled with Pressure -Offloading No -Treatment Response Procedure Tolerated Well Pain Scale: 0-10 Numeric Is Patient Pain Free? Yes Wound debrided: left abdominal fold and left groin ulcer Laterality: Left Type of Debridement: Excisional debridement Anesthesia Used: 5% Lidocaine Gel Depth: in the subcutaneous layer Percentage of wound debrided: 100 Instrument Used: 7mm curette Tissue Removed: slough and devitalized tissue Severity: Fat Layer Exposed Amount of bleeding with debridement: Mild Bleeding Controlled with: Pressure Patient tolerated procedure well Assessment/Plan Active Problems History of necrotising fasciitis (Acute) Lymphedema of both lower extremities (Acute) Type 2 diabetes mellitus (Acute) Morbid obesity (Acute) Non-healing surgical wound of left groin (Acute) Skin ulcer of abdominal wall with fat layer exposed (Acute) left abdominal fold Assessment: Nonhealing postsurgical wound left groin status post surgical excision of necrotizing fasciitis. Bilateral lower extremity edema. Morbid obesity. Type 2 diabetes mellitus Plan: The patient was seen and examined at the wound center today and was updated on the plan of care. A subcutaneous debridement was performed today. The patient tolerated the procedure well. The patients wound care will consist of: Aquacel extra change daily to left abdominal fold and groin ulcer, will hold off on purrapply aplication due to surrounding skin excoriation from steris. Wound cultures were reviewed prior and negative. Baseline bloodwork reviewed which demonstrated a slightly low pre-albumin and patient was advised to use Glucerna or high-protein with meals. Repeat lab work WNL. Prealbumin WNL now. Previous records were requested for continuity of care. Patient educated on the importance of diet on wound healing and instructed to increase protein and vitamin C intake. Patient verbalized understanding. Plastic surgery consultation - no surgery indicated. Did discuss with patient the importance of blood sugar control in wound healing, recent A1C in 02/2018 was 6.1. Patient to follow-up in 1 week or sooner if needed. This note was generated with [employer]shine[employer] software. It may contain incorrect words, spelling, and punctuation that were not noted in checking the note before signing. Code Visit 111xxx-113xx: 35076 Jessica subq tissue 20 sq cm/< Add On Codes: 23335 Jesisca subq tissue add-on
[2018-05-01 15:17] VITALS: BP 159/90; PULSE 83; RESP 18; TEMP 35
--- NOTE | 2018-05-01 16:54 | PCM.WC.PN ---
(1) Skin ulcer of abdominal wall with fat layer exposed Status: Acute Current Visit: Yes Code(s): L98.492 - Non-pressure chronic ulcer of skin of other sites with fat layer exposed Comment: left abdominal fold (2) Non-healing surgical wound of left groin Status: Acute Current Visit: Yes Qualifiers: Code(s): T81.89XA - Other complications of procedures, not elsewhere classified, initial encounter (3) History of necrotising fasciitis Status: Acute Current Visit: Yes Code(s): Z87.39 - Personal history of other diseases of the musculoskeletal system and connective tissue (4) Lymphedema of both lower extremities Status: Acute Current Visit: Yes Code(s): I89.0 - Lymphedema, not elsewhere classified (5) Morbid obesity Status: Acute Current Visit: Yes Code(s): E66.01 - Morbid (severe) obesity due to excess calories (6) Type 2 diabetes mellitus Status: Acute Current Visit: Yes Qualifiers: Code(s): E11.9 - Type 2 diabetes mellitus without complications Type of Wound Date of Service: 05/01/18 Chief Complaint: Nonhealing wound status post surgical excision of necrotizing fasciitis left groin History of Wound: 46-year-old white male who presents to the wound healing center today with complaint of left groin ulceration status post surgical excision of necrotizing fasciitis. He is a past medical history which is significant for that of type 2 diabetes mellitus, gout, diabetic neuropathy, schizophrenia, bilateral lymphedema, and schizophrenia. The patient states that what initially started as a pimple in his left groin progressed to necrotizing fasciitis and he had to have this surgically debrided in April 2017. He was admitted to [facility] for 2 weeks and then [facility] for 6 weeks afterwards. He states that the groin ulcer which extends to his left lower abdomen has been slowly improving and he has been doing daily Aquacel AG dressings with an ABD for the drainage. He does state that he has had 3 wound vacs in the past which were unable to be utilized due to the location of his wound. He denies any foul-smelling discharge or systemic signs of infection at this time. The patient otherwise denies any fever, chills, nausea, vomiting, shortness of breath, chest pain or pressure, palpitations, orthopnea, syncope or presyncopal episodes. Progress of Wound: Wounds are stable at this time, wound beds are moist and clean and without signs of gross infection at this time, There was a bridge of skin that has epithelialized and now made into 2 separate wounds wound 1 left groin and wound to left lower abdominal fold. Patient continues to increase his oral protein supplementation with whey protein. Continues to have scant amount of serosanguineous drainage from left groin wound. The patient otherwise denies any fever, chills, nausea, vomiting, shortness of breath, chest pain or pressure, palpitations, orthopnea, lower extremity edema, syncope or presyncopal episodes. - Physical Exam Vital Signs Temp Pulse Resp BP 95.0 F L 83 18 159/90 H 05/01/18 15:17 05/01/18 15:17 05/01/18 15:17 05/01/18 15:17 General: Alert, Oriented x3, Cooperative, No apparent distress HEENT: Atraumatic Oral: Moist Mucosa Lungs: Clear to auscultation Cardiovascular: Regular rate Abdomen: Soft, Non Tender, Obese Extremities: No clubbing, No cyanosis Skin: Ulcer/ Wound - Nonhealing ulcer to left abdominal fold and left groin with a small amount of adherent slough, otherwise no signs of infection wound beds are moist and pink. No redness streaking or surrounding excoriation at this time Wound Measurements and Assessment WC - Nurse 1 - General Ulcer Measurement Start: 04/24/18 15:30 Freq: Status: Active Protocol: Activity Type Activity Date Activity User E-Sign Co-Sign Detail Recorded Client Recorded Date Recorded By Document 05/01/18 15:17 SD [id number] 05/01/18 15:22 SD 05/01/18 15:17 Wound Center Nurse 1 [Ulcer Assessment] #2 Left Abdominal Fold -Combined with other wound No -Current Size (cm) - Length 0.5 -Current Size (cm) - Width 0.6 -Current Size (cm) - Depth 0.3 -Total Square Cm 0.30 -Photo Taken No -Epithelialization Small 1-33% -Tunneling No -Undermining/Tunneling No -Exudate Amt Small -Exudate Type Serosanguineous -Wound Margin Flat & Intact -Granulation Amt Large (67-100%) -Granulation Quality [place] -Slough/Fibrin No -Texture (Inessa-wound Skin Appearance) Assessed -Moisture (Inessa-wound Skin Appearance Assessed ) Maceration -Color (Inessa-wound Skin Appearance) Assessed -Temperature (Inessa-wound Skin No Abnormality Appearance) (Pt Warm) -Tenderness on Palpation (Inessa-wound No Skin Appearance) -Ulcer Cleansing Rinsed/ Irrigated with Saline -Foul Odor after Cleansing No -Anesthetic Used 4% Lidocaine Solution 5% Lidocaine Gel #1- LEFT GROIN- POST OP -Combined with other wound No -Current Size (cm) - Length 2 -Current Size (cm) - Width 16 -Current Size (cm) - Depth 0.7 -Total Square Cm 32 -Photo Taken No -Tunneling No -Undermining/Tunneling No -Circular Undermining No -Exudate Amt Small -Exudate Type Serosanguineous -Wound Margin Flat & Intact -Granulation Amt Large (67-100%) -Granulation Quality Pale [place] -Slough/Fibrin Yes -Necrosis Amt Small (1-33%) -Necrotic Tissue Type Adherent Slough -Texture (Inessa-wound Skin Appearance) Assessed -Moisture (Inessa-wound Skin Appearance Assessed ) Maceration -Color (Inessa-wound Skin Appearance) Assessed -Temperature (Inessa-wound Skin No Abnormality Appearance) (Pt Warm) -Tenderness on Palpation (Inessa-wound No Skin Appearance) -Ulcer Cleansing Rinsed/ Irrigated with Saline -Foul Odor after Cleansing No -Anesthetic Used 4% Lidocaine Solution 5% Lidocaine Gel WC - Nurse 2 - General Ulcer CM Notes Start: 04/24/18 15:30 Freq: Status: Active Protocol: Activity Type Activity Date Activity User E-Sign Co-Sign Detail Recorded Client Recorded Date Recorded By Document 05/01/18 15:46 DV [id number] 05/01/18 15:57 DV 05/01/18 15:46 Wound Center Nurse 2 [Procedure/Treatment] #2 Left Abdominal Fold -Time 15:49 -Correct Patient Yes -Correct Side, Site, Position Yes -Correct Procedure Yes -Procedure Performed Yes -Type of Procedure Debridement -Clinical Debridement Subcutaneous -Post Debridement Size (cm) - Length 0.7 -Post Debridement Size (cm) - Width 3.5 -Post Debridement Size (cm) - Depth 0.1 -Total Square Cm 2.45 -Wound/Ulcer Outcome Not Healed -Ulcer Cleansing Rinsed/ Irrigated with Saline -Foul Odor after Cleansing No -Bioengineered Tissue No -Bleeding Controlled with Pressure -Offloading No -Treatment Response Procedure Tolerated Well #1- LEFT GROIN- POST OP -Time 15:51 -Correct Patient Yes -Correct Side, Site, Position Yes -Correct Procedure Yes -Procedure Performed Yes -Type of Procedure Debridement -Clinical Debridement Subcutaneous -Post Debridement Size (cm) - Length 3.3 -Post Debridement Size (cm) - Width 16.8 -Post Debridement Size (cm) - Depth 0.1 -Total Square Cm 55.44 -Wound/Ulcer Outcome Not Healed -Ulcer Cleansing Rinsed/ Irrigated with Saline -Foul Odor after Cleansing No -Bioengineered Tissue No -Bleeding Controlled with Pressure -Treatment Response Procedure Tolerated Well [See Physician Procedure note for Specifics] Pain Scale: 0-10 Numeric [Pain] -Is Patient Pain Free? Yes Musculoskeletal: No Tenderness to Palpation of Joints or Extremities, No Muscle Wasting Neurological: Neuro grossly intact Psych/Mental Status: Normal Affect, Appropriate, Alert and oriented to time, place, person, mood and affect Debridement Note Post-Debridement Measurements/Treatment WC - Nurse 2 - General Ulcer CM Notes Start: 04/24/18 15:30 Freq: Status: Active Protocol: Activity Type Activity Date Activity User E-Sign Co-Sign Detail Recorded Client Recorded Date Recorded By Document 04/24/18 16:22 [id number] 04/24/18 16:24 Document 05/01/18 15:46 DV [id number] 05/01/18 15:57 DV 04/24/18 05/01/18 16:22 15:46 Wound Center Nurse 2 #2 Left Abdominal Fold -Time 16:23 15:49 -Correct Patient Yes Yes -Correct Side, Site, Position Yes Yes -Correct Procedure Yes Yes -Procedure Performed Yes Yes -Type of Procedure Debridement Debridement -Clinical Debridement Subcutaneous Subcutaneous -Post Debridement Size (cm) - Length 3.3 0.7 -Post Debridement Size (cm) - Width 15 3.5 -Post Debridement Size (cm) - Depth 0.1 0.1 -Total Square Cm 49.5 2.45 -Wound/Ulcer Outcome Not Healed Not Healed -Ulcer Cleansing Not Cleansed Rinsed/ Irrigated with Saline -Foul Odor after Cleansing No No -Bioengineered Tissue No No -Bleeding Controlled with Pressure Pressure -Offloading No No -Treatment Response Procedure Procedure Tolerated Well Tolerated Well #1- LEFT GROIN- POST OP -Time 16:23 15:51 -Correct Patient Yes Yes -Correct Side, Site, Position Yes Yes -Correct Procedure Yes Yes -Procedure Performed Yes Yes -Type of Procedure Debridement Debridement -Clinical Debridement Subcutaneous Subcutaneous -Post Debridement Size (cm) - Length 0.7 3.3 -Post Debridement Size (cm) - Width 4 16.8 -Post Debridement Size (cm) - Depth 0.1 0.1 -Total Square Cm 2.8 55.44 -Wound/Ulcer Outcome Not Healed Not Healed -Ulcer Cleansing Not Cleansed Rinsed/ Irrigated with Saline -Foul Odor after Cleansing No No -Bioengineered Tissue No No -Bleeding Controlled with Pressure Pressure -Offloading No -Treatment Response Procedure Procedure Tolerated Well Tolerated Well Pain Scale: 0-10 Numeric Is Patient Pain Free? Yes Yes Wound debrided: Left abdominal fold and left groin ulcer Laterality: Left Type of Debridement: Excisional debridement Anesthesia Used: 5% Lidocaine Gel Depth: in the subcutaneous layer Percentage of wound debrided: 100 Instrument Used: 7mm curette Tissue Removed: Slough and devitalized tissue Severity: Fat Layer Exposed Amount of bleeding with debridement: Mild Bleeding Controlled with: Pressure Patient tolerated procedure well Assessment/Plan Active Problems History of necrotising fasciitis (Acute) Lymphedema of both lower extremities (Acute) Type 2 diabetes mellitus (Acute) Morbid obesity (Acute) Non-healing surgical wound of left groin (Acute) Skin ulcer of abdominal wall with fat layer exposed (Acute) left abdominal fold Assessment: Nonhealing postsurgical wound left groin status post surgical excision of necrotizing fasciitis. Bilateral lower extremity edema. Morbid obesity. Type 2 diabetes mellitus Plan: The patient was seen and examined at the wound center today and was updated on the plan of care. A subcutaneous debridement was performed today. The patient tolerated the procedure well. The patients wound care will consist of: Aquacel extra change daily to left abdominal fold and groin ulcer, will hold off on purrapply aplication at this time. Wound cultures were reviewed prior and negative. Baseline bloodwork reviewed which demonstrated a slightly low pre-albumin and patient was advised to use Glucerna or high-protein with meals. Repeat lab work WNL. Prealbumin WNL now. Previous records were requested for continuity of care. Patient educated on the importance of diet on wound healing and instructed to increase protein and vitamin C intake. Patient verbalized understanding. Plastic surgery consultation - no surgery indicated. Did discuss with patient the importance of blood sugar control in wound healing, recent A1C in 02/2018 was 6.1. Patient to follow-up in 1 week or sooner if needed. Patient is on a complex wound plan. This note was generated with [employer] dictation software. It may contain incorrect words, spelling, and punctuation that were not noted in checking the note before signing. Code Visit 111xxx-113xx: 86498 Jessica subq tissue 20 sq cm/< Add On Codes: [id number] Jessica subq tissue add-on
--- NOTE | 2018-05-01 16:59 | PN.PCM_ITS ---
(1) Skin ulcer of abdominal wall with fat layer exposed Status: Acute Current Visit: Yes Code(s): L98.492 - Non-pressure chronic ulcer of skin of other sites with fat layer exposed Comment: left abdominal fold (2) Non-healing surgical wound of left groin Status: Acute Current Visit: Yes Qualifiers: Code(s): T81.89XA - Other complications of procedures, not elsewhere classified, initial encounter (3) History of necrotising fasciitis Status: Acute Current Visit: Yes Code(s): Z87.39 - Personal history of other diseases of the musculoskeletal system and connective tissue (4) Lymphedema of both lower extremities Status: Acute Current Visit: Yes Code(s): I89.0 - Lymphedema, not elsewhere classified (5) Morbid obesity Status: Acute Current Visit: Yes Code(s): E66.01 - Morbid (severe) obesity due to excess calories (6) Type 2 diabetes mellitus Status: Acute Current Visit: Yes Qualifiers: Code(s): E11.9 - Type 2 diabetes mellitus without complications Type of Wound Date of Service: 05/01/18 Chief Complaint: Nonhealing wound status post surgical excision of necrotizing fasciitis left groin History of Wound: 46-year-old white male who presents to the wound healing center today with complaint of left groin ulceration status post surgical excision of necrotizing fasciitis. He is a past medical history which is significant for that of type 2 diabetes mellitus, gout, diabetic neuropathy, schizophrenia, bilateral lymphedema, and schizophrenia. The patient states that what initially started as a pimple in his left groin progressed to necrotizing fasciitis and he had to have this surgically debrided in April 2017. He was admitted to [facility] for 2 weeks and then [facility] for 6 weeks afterwards. He states that the groin ulcer which extends to his left lower abdomen has been slowly improving and he has been doing daily Aquacel AG dressings with an ABD for the drainage. He does state that he has had 3 wound vacs in the past which were unable to be utilized due to the location of his wound. He denies any foul-smelling discharge or systemic signs of infection at this time. The patient otherwise denies any fever, chills, nausea, vomiting, shortness of breath, chest pain or pressure, palpitations, orthopnea, syncope or presyncopal episodes. Progress of Wound: Wounds are stable at this time, wound beds are moist and clean and without signs of gross infection at this time, There was a bridge of skin that has epithelialized and now made into 2 separate wounds wound 1 left groin and wound to left lower abdominal fold. Patient continues to increase his oral protein supplementation with whey protein. Continues to have scant amount of serosanguineous drainage from left groin wound. The patient otherwise denies any fever, chills, nausea, vomiting, shortness of breath, chest pain or pressure, palpitations, orthopnea, lower extremity edema, syncope or presyncopal episodes. - Physical Exam Vital Signs Temp Pulse Resp BP 95.0 F L 83 18 159/90 H 05/01/18 15:17 05/01/18 15:17 05/01/18 15:17 05/01/18 15:17 General: Alert, Oriented x3, Cooperative, No apparent distress HEENT: Atraumatic Oral: Moist Mucosa Lungs: Clear to auscultation Cardiovascular: Regular rate Abdomen: Soft, Non Tender, Obese Extremities: No clubbing, No cyanosis Skin: Ulcer/ Wound - Nonhealing ulcer to left abdominal fold and left groin with a small amount of adherent slough, otherwise no signs of infection wound beds are moist and pink. No redness streaking or surrounding excoriation at this time Wound Measurements and Assessment WC - Nurse 1 - General Ulcer Measurement Start: 04/24/18 15:30 Freq: Status: Active Protocol: Activity Type Activity Date Activity User E-Sign Co-Sign Detail Recorded Client Recorded Date Recorded By Document 05/01/18 15:17 OR [id number] 05/01/18 15:22 OR 05/01/18 15:17 Wound Center Nurse 1 [Ulcer Assessment] #2 Left Abdominal Fold -Combined with other wound No -Current Size (cm) - Length 0.5 -Current Size (cm) - Width 0.6 -Current Size (cm) - Depth 0.3 -Total Square Cm 0.30 -Photo Taken No -Epithelialization Small 1-33% -Tunneling No -Undermining/Tunneling No -Exudate Amt Small -Exudate Type Serosanguineous -Wound Margin Flat & Intact -Granulation Amt Large (67-100%) -Granulation Quality [place] -Slough/Fibrin No -Texture (Inessa-wound Skin Appearance) Assessed -Moisture (Inessa-wound Skin Appearance Assessed ) Maceration -Color (Inessa-wound Skin Appearance) Assessed -Temperature (Inessa-wound Skin No Abnormality Appearance) (Pt Warm) -Tenderness on Palpation (Inessa-wound No Skin Appearance) -Ulcer Cleansing Rinsed/ Irrigated with Saline -Foul Odor after Cleansing No -Anesthetic Used 4% Lidocaine Solution 5% Lidocaine Gel #1- LEFT GROIN- POST OP -Combined with other wound No -Current Size (cm) - Length 2 -Current Size (cm) - Width 16 -Current Size (cm) - Depth 0.7 -Total Square Cm 32 -Photo Taken No -Tunneling No -Undermining/Tunneling No -Circular Undermining No -Exudate Amt Small -Exudate Type Serosanguineous -Wound Margin Flat & Intact -Granulation Amt Large (67-100%) -Granulation Quality [place] -Slough/Fibrin Yes -Necrosis Amt Small (1-33%) -Necrotic Tissue Type Adherent Slough -Texture (Inessa-wound Skin Appearance) Assessed -Moisture (Inessa-wound Skin Appearance Assessed ) Maceration -Color (Inessa-wound Skin Appearance) Assessed -Temperature (Inessa-wound Skin No Abnormality Appearance) (Pt Warm) -Tenderness on Palpation (Inessa-wound No Skin Appearance) -Ulcer Cleansing Rinsed/ Irrigated with Saline -Foul Odor after Cleansing No -Anesthetic Used 4% Lidocaine Solution 5% Lidocaine Gel WC - Nurse 2 - General Ulcer CM Notes Start: 04/24/18 15:30 Freq: Status: Active Protocol: Activity Type Activity Date Activity User E-Sign Co-Sign Detail Recorded Client Recorded Date Recorded By Document 05/01/18 15:46 DV [id number] 05/01/18 15:57 DV 05/01/18 15:46 Wound Center Nurse 2 [Procedure/Treatment] #2 Left Abdominal Fold -Time 15:49 -Correct Patient Yes -Correct Side, Site, Position Yes -Correct Procedure Yes -Procedure Performed Yes -Type of Procedure Debridement -Clinical Debridement Subcutaneous -Post Debridement Size (cm) - Length 0.7 -Post Debridement Size (cm) - Width 3.5 -Post Debridement Size (cm) - Depth 0.1 -Total Square Cm 2.45 -Wound/Ulcer Outcome Not Healed -Ulcer Cleansing Rinsed/ Irrigated with Saline -Foul Odor after Cleansing No -Bioengineered Tissue No -Bleeding Controlled with Pressure -Offloading No -Treatment Response Procedure Tolerated Well #1- LEFT GROIN- POST OP -Time 15:51 -Correct Patient Yes -Correct Side, Site, Position Yes -Correct Procedure Yes -Procedure Performed Yes -Type of Procedure Debridement -Clinical Debridement Subcutaneous -Post Debridement Size (cm) - Length 3.3 -Post Debridement Size (cm) - Width 16.8 -Post Debridement Size (cm) - Depth 0.1 -Total Square Cm 55.44 -Wound/Ulcer Outcome Not Healed -Ulcer Cleansing Rinsed/ Irrigated with Saline -Foul Odor after Cleansing No -Bioengineered Tissue No -Bleeding Controlled with Pressure -Treatment Response Procedure Tolerated Well [See Physician Procedure note for Specifics] Pain Scale: 0-10 Numeric [Pain] -Is Patient Pain Free? Yes Musculoskeletal: No Tenderness to Palpation of Joints or Extremities, No Muscle Wasting Neurological: Neuro grossly intact Psych/Mental Status: Normal Affect, Appropriate, Alert and oriented to time, place, person, mood and affect Debridement Note Post-Debridement Measurements/Treatment WC - Nurse 2 - General Ulcer CM Notes Start: 04/24/18 15:30 Freq: Status: Active Protocol: Activity Type Activity Date Activity User E-Sign Co-Sign Detail Recorded Client Recorded Date Recorded By Document 04/24/18 16:22 [id number] 04/24/18 16:24 Document 05/01/18 15:46 DV [id number] 05/01/18 15:57 DV 04/24/18 05/01/18 16:22 15:46 Wound Center Nurse 2 #2 Left Abdominal Fold -Time 16:23 15:49 -Correct Patient Yes Yes -Correct Side, Site, Position Yes Yes -Correct Procedure Yes Yes -Procedure Performed Yes Yes -Type of Procedure Debridement Debridement -Clinical Debridement Subcutaneous Subcutaneous -Post Debridement Size (cm) - Length 3.3 0.7 -Post Debridement Size (cm) - Width 15 3.5 -Post Debridement Size (cm) - Depth 0.1 0.1 -Total Square Cm 49.5 2.45 -Wound/Ulcer Outcome Not Healed Not Healed -Ulcer Cleansing Not Cleansed Rinsed/ Irrigated with Saline -Foul Odor after Cleansing No No -Bioengineered Tissue No No -Bleeding Controlled with Pressure Pressure -Offloading No No -Treatment Response Procedure Procedure Tolerated Well Tolerated Well #1- LEFT GROIN- POST OP -Time 16:23 15:51 -Correct Patient Yes Yes -Correct Side, Site, Position Yes Yes -Correct Procedure Yes Yes -Procedure Performed Yes Yes -Type of Procedure Debridement Debridement -Clinical Debridement Subcutaneous Subcutaneous -Post Debridement Size (cm) - Length 0.7 3.3 -Post Debridement Size (cm) - Width 4 16.8 -Post Debridement Size (cm) - Depth 0.1 0.1 -Total Square Cm 2.8 55.44 -Wound/Ulcer Outcome Not Healed Not Healed -Ulcer Cleansing Not Cleansed Rinsed/ Irrigated with Saline -Foul Odor after Cleansing No No -Bioengineered Tissue No No -Bleeding Controlled with Pressure Pressure -Offloading No -Treatment Response Procedure Procedure Tolerated Well Tolerated Well Pain Scale: 0-10 Numeric Is Patient Pain Free? Yes Yes Wound debrided: Left abdominal fold and left groin ulcer Laterality: Left Type of Debridement: Excisional debridement Anesthesia Used: 5% Lidocaine Gel Depth: in the subcutaneous layer Percentage of wound debrided: 100 Instrument Used: 7mm curette Tissue Removed: Slough and devitalized tissue Severity: Fat Layer Exposed Amount of bleeding with debridement: Mild Bleeding Controlled with: Pressure Patient tolerated procedure well Assessment/Plan Active Problems History of necrotising fasciitis (Acute) Lymphedema of both lower extremities (Acute) Type 2 diabetes mellitus (Acute) Morbid obesity (Acute) Non-healing surgical wound of left groin (Acute) Skin ulcer of abdominal wall with fat layer exposed (Acute) left abdominal fold Assessment: Nonhealing postsurgical wound left groin status post surgical excision of necrotizing fasciitis. Bilateral lower extremity edema. Morbid obesity. Type 2 diabetes mellitus Plan: The patient was seen and examined at the wound center today and was update d on the plan of care. A subcutaneous debridement was performed today. The patient tolerated the procedure well. The patients wound care will consist of: Aquacel extra change daily to left abdominal fold and groin ulcer, will hold off on purrapply aplication at this time. Wound cultures were reviewed prior and negative. Baseline bloodwork reviewed which demonstrated a slightly low pre- albumin and patient was advised to use Glucerna or high-protein with meals. Repeat lab work WNL. Prealbumin WNL now. Previous records were requested for continuity of care. Patient educated on the importance of diet on wound healing and instructed to increase protein and vitamin C intake. Patient verbalized understanding. Plastic surgery consultation - no surgery indicated. Did discuss with patient the importance of blood sugar control in wound healing, recent A1C in 02/2018 was 6.1. Patient to follow-up in 1 week or sooner if needed. Patient is on a complex wound plan. This note was generated with [employer] dictation software. It may contain incorrect words, spelling, and punctuation that were not noted in checking the note before signing. Code Visit 111xxx-113xx: 40955 Jessica subq tissue 20 sq cm/< Add On Codes: [id number] Jessica subq tissue add-on
[2018-05-08 14:45] VITALS: RESP 16; TEMP 35.9
--- NOTE | 2018-05-08 20:25 | PCM.WC.PN ---
(1) Skin ulcer of abdominal wall with fat layer exposed Status: Acute Code(s): L98.492 - Non-pressure chronic ulcer of skin of other sites with fat layer exposed Comment: left abdominal fold (2) Non-healing surgical wound of left groin Status: Acute Qualifiers: Code(s): T81.89XA - Other complications of procedures, not elsewhere classified, initial encounter (3) History of necrotising fasciitis Status: Acute Code(s): Z87.39 - Personal history of other diseases of the musculoskeletal system and connective tissue (4) Lymphedema of both lower extremities Status: Acute Code(s): I89.0 - Lymphedema, not elsewhere classified (5) Morbid obesity Status: Acute Code(s): E66.01 - Morbid (severe) obesity due to excess calories (6) Type 2 diabetes mellitus Status: Acute Qualifiers: Code(s): E11.9 - Type 2 diabetes mellitus without complications Type of Wound Date of Service: 05/08/18 Chief Complaint: Nonhealing wound status post surgical excision of necrotizing fasciitis left groin History of Wound: 46-year-old white male who presents to the wound healing center today with complaint of left groin ulceration status post surgical excision of necrotizing fasciitis. He is a past medical history which is significant for that of type 2 diabetes mellitus, gout, diabetic neuropathy, schizophrenia, bilateral lymphedema, and schizophrenia. The patient states that what initially started as a pimple in his left groin progressed to necrotizing fasciitis and he had to have this surgically debrided in April 2017. He was admitted to [facility] for 2 weeks and then [facility] for 6 weeks afterwards. He states that the groin ulcer which extends to his left lower abdomen has been slowly improving and he has been doing daily Aquacel AG dressings with an ABD for the drainage. He does state that he has had 3 wound vacs in the past which were unable to be utilized due to the location of his wound. He denies any foul-smelling discharge or systemic signs of infection at this time. The patient otherwise denies any fever, chills, nausea, vomiting, shortness of breath, chest pain or pressure, palpitations, orthopnea, syncope or presyncopal episodes. Progress of Wound: Wounds are stable at this time, slow improvement in size to left groin ulcer, wound beds are moist and clean and without signs of gross infection at this time, There was a bridge of skin that has epithelialized and now made into 2 separate wounds wound 1 left groin and wound to left lower abdominal fold. Patient continues to increase his oral protein supplementation with whey protein. Continues to have scant amount of serosanguineous drainage from left groin wound. The patient otherwise denies any fever, chills, nausea, vomiting, shortness of breath, chest pain or pressure, palpitations, orthopnea, lower extremity edema, syncope or presyncopal episodes. - Physical Exam Vital Signs Temp Pulse Resp BP 96.6 F L 83 16 159/90 H 05/08/18 14:45 05/01/18 15:17 05/08/18 14:45 05/01/18 15:17 General: Alert, Oriented x3, Cooperative, No apparent distress HEENT: Atraumatic Lungs: Clear to auscultation Cardiovascular: Regular rate Abdomen: Obese Extremities: No clubbing, No cyanosis, No edema Skin: No rashes, Ulcer/ Wound - Left abdominal fold ulcer and left groin ulcer with adherent slough to wound bed, otherwise no signs of infection at this time, no purulent drainage, redness or streaking or foul smell. Musculoskeletal: No Tenderness to Palpation of Joints or Extremities Neurological: Neuro grossly intact Psych/Mental Status: Normal Affect, Appropriate, Alert and oriented to time, place, person, mood and affect Debridement Note Post-Debridement Measurements/Treatment WC - Nurse 2 - General Ulcer CM Notes Start: 04/24/18 15:30 Freq: Status: Active Protocol: Activity Type Activity Date Activity User E-Sign Co-Sign Detail Recorded Client Recorded Date Recorded By Document 04/24/18 16:22 [id number] 04/24/18 16:24 CS Document 05/01/18 15:46 DV [id number] 05/01/18 15:57 DV Document 05/08/18 15:18 CS [id number] 05/08/18 15:26 04/24/18 05/01/18 05/08/18 16:22 15:46 15:18 Wound Center Nurse 2 #2 Left Abdominal Fold -Time 16:23 15:49 15:18 -Correct Patient Yes Yes Yes -Correct Side, Site, Position Yes Yes Yes -Correct Procedure Yes Yes Yes -Procedure Performed Yes Yes Yes -Type of Procedure Debridement Debridement Debridement -Clinical Debridement Subcutaneous Subcutaneous Subcutaneous -Post Debridement Size (cm) - Length 3.3 0.7 1.1 -Post Debridement Size (cm) - Width 15 3.5 3.1 -Post Debridement Size (cm) - Depth 0.1 0.1 0.1 -Total Square Cm 49.5 2.45 3.41 -Wound/Ulcer Outcome Not Healed Not Healed Not Healed -Ulcer Cleansing Not Cleansed Rinsed/ Not Cleansed Irrigated with Saline -Foul Odor after Cleansing No No No -Bioengineered Tissue No No No -Bleeding Controlled with Pressure Pressure Pressure -Offloading No No No -Treatment Response Procedure Procedure Procedure Tolerated Well Tolerated Well Tolerated Well #1- LEFT GROIN- POST OP -Time 16:23 15:51 15:18 -Correct Patient Yes Yes Yes -Correct Side, Site, Position Yes Yes Yes -Correct Procedure Yes Yes Yes -Procedure Performed Yes Yes Yes -Type of Procedure Debridement Debridement Debridement -Clinical Debridement Subcutaneous Subcutaneous Subcutaneous -Post Debridement Size (cm) - Length 0.7 3.3 3.3 -Post Debridement Size (cm) - Width 4 16.8 13.5 -Post Debridement Size (cm) - Depth 0.1 0.1 0.1 -Total Square Cm 2.8 55.44 44.55 -Wound/Ulcer Outcome Not Healed Not Healed Not Healed -Ulcer Cleansing Not Cleansed Rinsed/ Not Cleansed Irrigated with Saline -Foul Odor after Cleansing No No No -Bioengineered Tissue No No No -Bleeding Controlled with Pressure Pressure Pressure -Offloading No No -Treatment Response Procedure Procedure Procedure Tolerated Well Tolerated Well Tolerated Well Pain Scale: 0-10 Numeric Is Patient Pain Free? Yes Yes Yes Wound debrided: Left groin and left abdominal fold ulcer Laterality: Left Type of Debridement: Excisional debridement Anesthesia Used: 5% Lidocaine Gel Depth: in the subcutaneous layer Percentage of wound debrided: 100 Instrument Used: 7mm curette Tissue Removed: Slough and devitalized tissue Severity: Fat Layer Exposed Amount of bleeding with debridement: Mild Bleeding Controlled with: Pressure Patient tolerated procedure well Assessment/Plan Assessment: Nonhealing postsurgical wound left groin status post surgical excision of necrotizing fasciitis. Bilateral lower extremity edema. Morbid obesity. Type 2 diabetes mellitus Plan: The patient was seen and examined at the wound center today and was updated on the plan of care. A subcutaneous debridement was performed today. The patient tolerated the procedure well. The patients wound care will consist of: Aquacel extra change daily to left abdominal fold and groin ulcer, will hold off on purrapply aplication at this time. Wound cultures were reviewed prior and negative. Baseline bloodwork reviewed which demonstrated a slightly low pre-albumin and patient was advised to use Glucerna or high-protein with meals. Repeat lab work WNL. Prealbumin WNL now. Previous records were requested for continuity of care. Patient educated on the importance of diet on wound healing and instructed to increase protein and vitamin C intake. Patient verbalized understanding. Plastic surgery consultation - no surgery indicated. Did discuss with patient the importance of blood sugar control in wound healing, recent A1C in 02/2018 was 6.1. Patient to follow-up in 1 week or sooner if needed. Patient is on a complex wound plan. This note was generated with [employer] dictation software. It may contain incorrect words, spelling, and punctuation that were not noted in checking the note before signing. Code Visit 111xxx-113xx: 15120 Jessica subq tissue 20 sq cm/< Add On Codes: [id number] Jessica subq tissue add-on
--- NOTE | 2018-05-14 09:27 | PN.PCM_ITS ---
(1) Skin ulcer of abdominal wall with fat layer exposed Status: Acute Code(s): L98.492 - Non-pressure chronic ulcer of skin of other sites with fat layer exposed Comment: left abdominal fold (2) Non-healing surgical wound of left groin Status: Acute Qualifiers: Code(s): T81.89XA - Other complications of procedures, not elsewhere classified, initial encounter (3) History of necrotising fasciitis Status: Acute Code(s): Z87.39 - Personal history of other diseases of the musculoskeletal system and connective tissue (4) Lymphedema of both lower extremities Status: Acute Code(s): I89.0 - Lymphedema, not elsewhere classified (5) Morbid obesity Status: Acute Code(s): E66.01 - Morbid (severe) obesity due to excess calories (6) Type 2 diabetes mellitus Status: Acute Qualifiers: Code(s): E11.9 - Type 2 diabetes mellitus without complications Type of Wound Date of Service: 05/08/18 Chief Complaint: Nonhealing wound status post surgical excision of necrotizing fasciitis left groin History of Wound: 46-year-old white male who presents to the wound healing center today with complaint of left groin ulceration status post surgical excision of necrotizing fasciitis. He is a past medical history which is significant for that of type 2 diabetes mellitus, gout, diabetic neuropathy, schizophrenia, bilateral lymphedema, and schizophrenia. The patient states that what initially started as a pimple in his left groin progressed to necrotizing fasciitis and he had to have this surgically debrided in April 2017. He was admitted to [facility] for 2 weeks and then [facility] for 6 weeks afterwards. He states that the groin ulcer which extends to his left lower abdomen has been slowly improving and he has been doing daily Aquacel AG dressings with an ABD for the drainage. He does state that he has had 3 wound vacs in the past which were unable to be utilized due to the location of his wound. He denies any foul-smelling discharge or systemic signs of infection at this time. The patient otherwise denies any fever, chills, nausea, vomiting, shortness of breath, chest pain or pressure, palpitations, orthopnea, syncope or presyncopal episodes. Progress of Wound: Wounds are stable at this time, slow improvement in size to left groin ulcer, wound beds are moist and clean and without signs of gross infection at this time, There was a bridge of skin that has epithelialized and now made into 2 separate wounds wound 1 left groin and wound to left lower abdominal fold. Patient continues to increase his oral protein supplementation with whey protein. Continues to have scant amount of serosanguineous drainage from left groin wound. The patient otherwise denies any fever, chills, nausea, vomiting, shortness of breath, chest pain or pressure, palpitations, orthopnea, lower extremity edema, syncope or presyncopal episodes. - Physical Exam Vital Signs Temp Pulse Resp BP 96.6 F L 83 16 159/90 H 05/08/18 14:45 05/01/18 15:17 05/08/18 14:45 05/01/18 15:17 General: Alert, Oriented x3, Cooperative, No apparent distress HEENT: Atraumatic Lungs: Clear to auscultation Cardiovascular: Regular rate Abdomen: Obese Extremities: No clubbing, No cyanosis, No edema Skin: No rashes, Ulcer/ Wound - Left abdominal fold ulcer and left groin ulcer with adherent slough to wound bed, otherwise no signs of infection at this time, no purulent drainage, redness or streaking or foul smell. Musculoskeletal: No Tenderness to Palpation of Joints or Extremities Neurological: Neuro grossly intact Psych/Mental Status: Normal Affect, Appropriate, Alert and oriented to time, place, person, mood and affect Debridement Note Post-Debridement Measurements/Treatment WC - Nurse 2 - General Ulcer CM Notes Start: 04/24/18 15:30 Freq: Status: Active Protocol: Activity Type Activity Date Activity User E-Sign Co-Sign Detail Recorded Client Recorded Date Recorded By Document 04/24/18 16:22 [id number] 04/24/18 16:24 CS Document 05/01/18 15:46 DV [id number] 05/01/18 15:57 DV Document 05/08/18 15:18 CS [id number] 05/08/18 15:26 04/24/18 05/01/18 05/08/18 16:22 15:46 15:18 Wound Center Nurse 2 #2 Left Abdominal Fold -Time 16:23 15:49 15:18 -Correct Patient Yes Yes Yes -Correct Side, Site, Position Yes Yes Yes -Correct Procedure Yes Yes Yes -Procedure Performed Yes Yes Yes -Type of Procedure Debridement Debridement Debridement -Clinical Debridement Subcutaneous Subcutaneous Subcutaneous -Post Debridement Size (cm) - Length 3.3 0.7 1.1 -Post Debridement Size (cm) - Width 15 3.5 3.1 -Post Debridement Size (cm) - Depth 0.1 0.1 0.1 -Total Square Cm 49.5 2.45 3.41 -Wound/Ulcer Outcome Not Healed Not Healed Not Healed -Ulcer Cleansing Not Cleansed Rinsed/ Not Cleansed Irrigated with Saline -Foul Odor after Cleansing No No No -Bioengineered Tissue No No No -Bleeding Controlled with Pressure Pressure Pressure -Offloading No No No -Treatment Response Procedure Procedure Procedure Tolerated Well Tolerated Well Tolerated Well #1- LEFT GROIN- POST OP -Time 16:23 15:51 15:18 -Correct Patient Yes Yes Yes -Correct Side, Site, Position Yes Yes Yes -Correct Procedure Yes Yes Yes -Procedure Performed Yes Yes Yes -Type of Procedure Debridement Debridement Debridement -Clinical Debridement Subcutaneous Subcutaneous Subcutaneous -Post Debridement Size (cm) - Length 0.7 3.3 3.3 -Post Debridement Size (cm) - Width 4 16.8 13.5 -Post Debridement Size (cm) - Depth 0.1 0.1 0.1 -Total Square Cm 2.8 55.44 44.55 -Wound/Ulcer Outcome Not Healed Not Healed Not Healed -Ulcer Cleansing Not Cleansed Rinsed/ Not Cleansed Irrigated with Saline -Foul Odor after Cleansing No No No -Bioengineered Tissue No No No -Bleeding Controlled with Pressure Pressure Pressure -Offloading No No -Treatment Response Procedure Procedure Procedure Tolerated Well Tolerated Well Tolerated Well Pain Scale: 0-10 Numeric Is Patient Pain Free? Yes Yes Yes Wound debrided: Left groin and left abdominal fold ulcer Laterality: Left Type of Debridement: Excisional debridement Anesthesia Used: 5% Lidocaine Gel Depth: in the subcutaneous layer Percentage of wound debrided: 100 Instrument Used: 7mm curette Tissue Removed: Slough and devitalized tissue Severity: Fat Layer Exposed Amount of bleeding with debridement: Mild Bleeding Controlled with: Pressure Patient tolerated procedure well Assessment/Plan Assessment: Nonhealing postsurgical wound left groin status post surgical excision of necrotizing fasciitis. Bilateral lower extremity edema. Morbid obesity. Type 2 diabetes mellitus Plan: The patient was seen and examined at the wound center today and was updated on the plan of care. A subcutaneous debridement was performed today. The patient tolerated the procedure well. The patients wound care will consist of: Aquacel extra change daily to left abdominal fold and groin ulcer, will hold off on purrapply aplication at this time. Wound cultures were reviewed prior and negative. Baseline bloodwork reviewed which demonstrated a slightly low pre- albumin and patient was advised to use Glucerna or high-protein with meals. Repeat lab work WNL. Prealbumin WNL now. Previous records were requested for continuity of care. Patient educated on the importance of diet on wound healing and instructed to increase protein and vitamin C intake. Patient verbalized understanding. Plastic surgery consultation - no surgery indicated. Did discuss with patient the importance of blood sugar control in wound healing, recent A1C in 02/2018 was 6.1. Patient to follow-up in 1 week or sooner if needed. Patient is on a complex wound plan. This note was generated with [employer] dictation software. It may contain incorrect words, spelling, and punctuation that were not noted in checking the note before signing. Code Visit 111xxx-113xx: 34359 Jessica subq tissue 20 sq cm/< Add On Codes: [id number] Jessica subq tissue add-on
[2018-05-15 13:52] VITALS: BP 141/77; PULSE 85; RESP 20; TEMP 36
--- NOTE | 2018-05-15 16:06 | PCM.WC.PN ---
(1) Skin ulcer of abdominal wall with fat layer exposed Status: Acute Current Visit: Yes Code(s): L98.492 - Non-pressure chronic ulcer of skin of other sites with fat layer exposed Comment: left abdominal fold (2) Non-healing surgical wound of left groin Status: Acute Current Visit: Yes Qualifiers: Code(s): T81.89XA - Other complications of procedures, not elsewhere classified, initial encounter (3) History of necrotising fasciitis Status: Acute Current Visit: Yes Code(s): Z87.39 - Personal history of other diseases of the musculoskeletal system and connective tissue (4) Lymphedema of both lower extremities Status: Acute Current Visit: Yes Code(s): I89.0 - Lymphedema, not elsewhere classified (5) Morbid obesity Status: Acute Current Visit: Yes Code(s): E66.01 - Morbid (severe) obesity due to excess calories (6) Type 2 diabetes mellitus Status: Acute Current Visit: Yes Qualifiers: Code(s): E11.9 - Type 2 diabetes mellitus without complications Type of Wound Date of Service: 05/15/18 Chief Complaint: Nonhealing wound status post surgical excision of necrotizing fasciitis left groin History of Wound: 46-year-old white male who presents to the wound healing center today with complaint of left groin ulceration status post surgical excision of necrotizing fasciitis. He is a past medical history which is significant for that of type 2 diabetes mellitus, gout, diabetic neuropathy, schizophrenia, bilateral lymphedema, and schizophrenia. The patient states that what initially started as a pimple in his left groin progressed to necrotizing fasciitis and he had to have this surgically debrided in April 2017. He was admitted to [facility] for 2 weeks and then [facility] for 6 weeks afterwards. He states that the groin ulcer which extends to his left lower abdomen has been slowly improving and he has been doing daily Aquacel AG dressings with an ABD for the drainage. He does state that he has had 3 wound vacs in the past which were unable to be utilized due to the location of his wound. He denies any foul-smelling discharge or systemic signs of infection at this time. The patient otherwise denies any fever, chills, nausea, vomiting, shortness of breath, chest pain or pressure, palpitations, orthopnea, syncope or presyncopal episodes. Progress of Wound: Wounds are stable at this time, wound beds are moist and clean and without signs of gross infection at this time, slightly macerated this week. There was a bridge of skin that has epithelialized and now made into 2 separate wounds wound 1 left groin and wound to left lower abdominal fold. Patient continues to increase his oral protein supplementation with whey protein. Continues to have scant amount of serosanguineous drainage from left groin wound. The patient otherwise denies any fever, chills, nausea, vomiting, shortness of breath, chest pain or pressure, palpitations, orthopnea, lower extremity edema, syncope or presyncopal episodes. - Physical Exam Vital Signs Temp Pulse Resp BP 96.8 F L 85 20 H 141/77 H 05/15/18 13:52 05/15/18 13:52 05/15/18 13:52 05/15/18 13:52 General: Alert, Oriented x3, Cooperative, No apparent distress HEENT: Atraumatic Oral: Moist Mucosa Lungs: Clear to auscultation Cardiovascular: Regular rate Abdomen: Soft, Non Tender, Obese Extremities: No clubbing, No cyanosis, Edema Skin: Ulcer/ Wound - ulceration to left groin and abdominal fold with adherant slough, no signs of infection at this time. Wound Measurements and Assessment WC - Nurse 1 - General Ulcer Measurement Start: 04/24/18 15:30 Freq: Status: Active Protocol: Activity Type Activity Date Activity User E-Sign Co-Sign Detail Recorded Client Recorded Date Recorded By Document 05/15/18 13:52 DL [id number] 05/15/18 14:03 DL 05/15/18 13:52 Wound Center Nurse 1 [Ulcer Assessment] #2 Left Abdominal Fold -Current Size (cm) - Length 0.5 -Current Size (cm) - Width 2.6 -Current Size (cm) - Depth 0.4 -Total Square Cm 1.30 -Photo Taken No -Exudate Amt Small -Exudate Type Serosanguineous -Wound Margin Thickened & Rolled Under -Granulation Amt Large (67-100%) -Granulation Quality Pale [place] -Necrosis Amt Small (1-33%) -Necrotic Tissue Type Adherent Slough -Structure Exposed N/A -Texture (Inessa-wound Skin Appearance) Scarring -Moisture (Inessa-wound Skin Appearance No Abnormality ) -Color (Inessa-wound Skin Appearance) No Abnormality -Temperature (Inessa-wound Skin No Abnormality Appearance) (Pt Warm) -Tenderness on Palpation (Inessa-wound No Skin Appearance) -Ulcer Cleansing Wound Cleanser -Foul Odor after Cleansing No -Anesthetic Used 4% Lidocaine Solution #1- LEFT GROIN- POST OP -Current Size (cm) - Length 2.2 -Current Size (cm) - Width 14.2 -Current Size (cm) - Depth 0.1 -Total Square Cm 31.24 -Photo Taken No -Exudate Amt Medium -Exudate Type Serosanguineous -Wound Margin Thickened -Granulation Amt Large (67-100%) -Granulation Quality [place] Red -Necrosis Amt Small (1-33%) -Necrotic Tissue Type Adherent Slough -Structure Exposed N/A -Texture (Inessa-wound Skin Appearance) Scarring -Moisture (Inessa-wound Skin Appearance Maceration ) -Color (Inessa-wound Skin Appearance) No Abnormality -Temperature (Inessa-wound Skin No Abnormality Appearance) (Pt Warm) -Tenderness on Palpation (Inessa-wound No Skin Appearance) -Ulcer Cleansing Wound Cleanser -Anesthetic Used 4% Lidocaine Solution WC - Nurse 2 - General Ulcer CM Notes Start: 04/24/18 15:30 Freq: Status: Active Protocol: Activity Type Activity Date Activity User E-Sign Co-Sign Detail Recorded Client Recorded Date Recorded By Document 05/15/18 14:22 [id number] 05/15/18 14:29 05/15/18 14:22 Wound Center Nurse 2 [Procedure/Treatment] #2 Left Abdominal Fold -Time 14:22 -Correct Patient Yes -Correct Side, Site, Position Yes -Correct Procedure Yes -Procedure Performed Yes -Type of Procedure Debridement -Clinical Debridement Subcutaneous -Post Debridement Size (cm) - Length 0.8 -Post Debridement Size (cm) - Width 3.1 -Post Debridement Size (cm) - Depth 0.1 -Total Square Cm 2.48 -Wound/Ulcer Outcome Not Healed -Ulcer Cleansing Not Cleansed -Foul Odor after Cleansing No -Bioengineered Tissue No -Bleeding Controlled with Pressure -Offloading No -Treatment Response Procedure Tolerated Well #1- LEFT GROIN- POST OP -Time 14:22 -Correct Patient Yes -Correct Side, Site, Position Yes -Correct Procedure Yes -Procedure Performed Yes -Type of Procedure Debridement -Clinical Debridement Subcutaneous -Post Debridement Size (cm) - Length 3.1 -Post Debridement Size (cm) - Width 14.2 -Post Debridement Size (cm) - Depth 0.1 -Total Square Cm 44.02 -Wound/Ulcer Outcome Not Healed -Ulcer Cleansing Not Cleansed -Foul Odor after Cleansing No -Bioengineered Tissue No -Bleeding Controlled with Pressure -Offloading No -Treatment Response Procedure Tolerated Well [See Physician Procedure note for Specifics] Pain Scale: 0-10 Numeric [Pain] -Is Patient Pain Free? Yes Neurological: Neuro grossly intact Psych/Mental Status: Normal Affect, Appropriate, Alert and oriented to time, place, person, mood and affect Debridement Note Post-Debridement Measurements/Treatment WC - Nurse 2 - General Ulcer CM Notes Start: 04/24/18 15:30 Freq: Status: Active Protocol: Activity Type Activity Date Activity User E-Sign Co-Sign Detail Recorded Client Recorded Date Recorded By Document 04/24/18 16:22 [id number] 04/24/18 16:24 CS Document 05/01/18 15:46 DV [id number] 05/01/18 15:57 DV Document 05/08/18 15:18 CS [id number] 05/08/18 15:26 CS Document 05/15/18 14:22 [id number] 05/15/18 14:29 04/24/18 05/01/18 05/08/18 16:22 15:46 15:18 Wound Center Nurse 2 #2 Left Abdominal Fold -Time 16:23 15:49 15:18 -Correct Patient Yes Yes Yes -Correct Side, Site, Position Yes Yes Yes -Correct Procedure Yes Yes Yes -Procedure Performed Yes Yes Yes -Type of Procedure Debridement Debridement Debridement -Clinical Debridement Subcutaneous Subcutaneous Subcutaneous -Post Debridement Size (cm) - Length 3.3 0.7 1.1 -Post Debridement Size (cm) - Width 15 3.5 3.1 -Post Debridement Size (cm) - Depth 0.1 0.1 0.1 -Total Square Cm 49.5 2.45 3.41 -Wound/Ulcer Outcome Not Healed Not Healed Not Healed -Ulcer Cleansing Not Cleansed Rinsed/ Not Cleansed Irrigated with Saline -Foul Odor after Cleansing No No No -Bioengineered Tissue No No No -Bleeding Controlled with Pressure Pressure Pressure -Offloading No No No -Treatment Response Procedure Procedure Procedure Tolerated Well Tolerated Well Tolerated Well #1- LEFT GROIN- POST OP -Time 16:23 15:51 15:18 -Correct Patient Yes Yes Yes -Correct Side, Site, Position Yes Yes Yes -Correct Procedure Yes Yes Yes -Procedure Performed Yes Yes Yes -Type of Procedure Debridement Debridement Debridement -Clinical Debridement Subcutaneous Subcutaneous Subcutaneous -Post Debridement Size (cm) - Length 0.7 3.3 3.3 -Post Debridement Size (cm) - Width 4 16.8 13.5 -Post Debridement Size (cm) - Depth 0.1 0.1 0.1 -Total Square Cm 2.8 55.44 44.55 -Wound/Ulcer Outcome Not Healed Not Healed Not Healed -Ulcer Cleansing Not Cleansed Rinsed/ Not Cleansed Irrigated with Saline -Foul Odor after Cleansing No No No -Bioengineered Tissue No No No -Bleeding Controlled with Pressure Pressure Pressure -Offloading No No -Treatment Response Procedure Procedure Procedure Tolerated Well Tolerated Well Tolerated Well Pain Scale: 0-10 Numeric Is Patient Pain Free? Yes Yes Yes 05/15/18 14:22 Wound Center Nurse 2 #2 Left Abdominal Fold -Time 14:22 -Correct Patient Yes -Correct Side, Site, Position Yes -Correct Procedure Yes -Procedure Performed Yes -Type of Procedure Debridement -Clinical Debridement Subcutaneous -Post Debridement Size (cm) - Length 0.8 -Post Debridement Size (cm) - Width 3.1 -Post Debridement Size (cm) - Depth 0.1 -Total Square Cm 2.48 -Wound/Ulcer Outcome Not Healed -Ulcer Cleansing Not Cleansed -Foul Odor after Cleansing No -Bioengineered Tissue No -Bleeding Controlled with Pressure -Offloading No -Treatment Response Procedure Tolerated Well #1- LEFT GROIN- POST OP -Time 14:22 -Correct Patient Yes -Correct Side, Site, Position Yes -Correct Procedure Yes -Procedure Performed Yes -Type of Procedure Debridement -Clinical Debridement Subcutaneous -Post Debridement Size (cm) - Length 3.1 -Post Debridement Size (cm) - Width 14.2 -Post Debridement Size (cm) - Depth 0.1 -Total Square Cm 44.02 -Wound/Ulcer Outcome Not Healed -Ulcer Cleansing Not Cleansed -Foul Odor after Cleansing No -Bioengineered Tissue No -Bleeding Controlled with Pressure -Offloading No -Treatment Response Procedure Tolerated Well Pain Scale: 0-10 Numeric Is Patient Pain Free? Yes Wound debrided: left groin and abdominal fold ulcer Laterality: Left Type of Debridement: Excisional debridement Anesthesia Used: 5% Lidocaine Gel Depth: in the subcutaneous layer Percentage of wound debrided: 100 Instrument Used: 7mm curette Tissue Removed: slough and devitalized tissue Severity: Fat Layer Exposed Amount of bleeding with debridement: Mild Bleeding Controlled with: Pressure Patient tolerated procedure well Assessment/Plan Active Problems History of necrotising fasciitis (Acute) Lymphedema of both lower extremities (Acute) Type 2 diabetes mellitus (Acute) Morbid obesity (Acute) Non-healing surgical wound of left groin (Acute) Skin ulcer of abdominal wall with fat layer exposed (Acute) left abdominal fold Assessment: Nonhealing postsurgical wound left groin status post surgical excision of necrotizing fasciitis. Bilateral lower extremity edema. Morbid obesity. Type 2 diabetes mellitus Plan: The patient was seen and examined at the wound center today and was updated on the plan of care. A subcutaneous debridement was performed today. The patient tolerated the procedure well. The patients wound care will consist of: Aquacel extra change daily to left abdominal fold and groin ulcer, will hold off on purrapply aplication at this time, [facility] Wound cultures were reviewed prior and negative. Baseline bloodwork reviewed which demonstrated a slightly low pre-albumin and patient was advised to use Glucerna or high-protein with meals. Repeat lab work WNL. Prealbumin WNL now. Previous records were requested for continuity of care. Patient educated on the importance of diet on wound healing and instructed to increase protein and vitamin C intake. Patient verbalized understanding. Plastic surgery consultation - no surgery indicated. Did discuss with patient the importance of blood sugar control in wound healing, recent A1C in 02/2018 was 6.1. Patient to follow-up in 1 week or sooner if needed. Patient is on a complex wound plan. This note was generated with [employer] dictation software. It may contain incorrect words, spelling, and punctuation that were not noted in checking the note before signing. Code Visit 111xxx-113xx: 15562 Jessica subq tissue 20 sq cm/< Add On Codes: [id number] Jessica subq tissue add-on
--- NOTE | 2018-05-16 16:10 | PN.PCM_ITS ---
(1) Skin ulcer of abdominal wall with fat layer exposed Status: Acute Current Visit: Yes Code(s): L98.492 - Non-pressure chronic ulcer of skin of other sites with fat layer exposed Comment: left abdominal fold (2) Non-healing surgical wound of left groin Status: Acute Current Visit: Yes Qualifiers: Code(s): T81.89XA - Other complications of procedures, not elsewhere classified, initial encounter (3) History of necrotising fasciitis Status: Acute Current Visit: Yes Code(s): Z87.39 - Personal history of other diseases of the musculoskeletal system and connective tissue (4) Lymphedema of both lower extremities Status: Acute Current Visit: Yes Code(s): I89.0 - Lymphedema, not elsewhere classified (5) Morbid obesity Status: Acute Current Visit: Yes Code(s): E66.01 - Morbid (severe) obesity due to excess calories (6) Type 2 diabetes mellitus Status: Acute Current Visit: Yes Qualifiers: Code(s): E11.9 - Type 2 diabetes mellitus without complications Type of Wound Date of Service: 05/15/18 Chief Complaint: Nonhealing wound status post surgical excision of necrotizing fasciitis left groin History of Wound: 46-year-old white male who presents to the wound healing center today with complaint of left groin ulceration status post surgical excision of necrotizing fasciitis. He is a past medical history which is significant for that of type 2 diabetes mellitus, gout, diabetic neuropathy, schizophrenia, bilateral lymphedema, and schizophrenia. The patient states that what initially started as a pimple in his left groin progressed to necrotizing fasciitis and he had to have this surgically debrided in April 2017. He was admitted to [facility] for 2 weeks and then [facility] for 6 weeks afterwards. He states that the groin ulcer which extends to his left lower abdomen has been slowly improving and he has been doing daily Aquacel AG dressings with an ABD for the drainage. He does state that he has had 3 wound vacs in the past which were unable to be utilized due to the location of his wound. He denies any foul-smelling discharge or systemic signs of infection at this time. The patient otherwise denies any fever, chills, nausea, vomiting, shortness of breath, chest pain or pressure, palpitations, orthopnea, syncope or presyncopal episodes. Progress of Wound: Wounds are stable at this time, wound beds are moist and clean and without signs of gross infection at this time, slightly macerated this week. There was a bridge of skin that has epithelialized and now made into 2 separate wounds wound 1 left groin and wound to left lower abdominal fold. Patient continues to increase his oral protein supplementation with whey protei n. Continues to have scant amount of serosanguineous drainage from left groin wound. The patient otherwise denies any fever, chills, nausea, vomiting, shortness of breath, chest pain or pressure, palpitations, orthopnea, lower extremity edema, syncope or presyncopal episodes. - Physical Exam Vital Signs Temp Pulse Resp BP 96.8 F L 85 20 H 141/77 H 05/15/18 13:52 05/15/18 13:52 05/15/18 13:52 05/15/18 13:52 General: Alert, Oriented x3, Cooperative, No apparent distress HEENT: Atraumatic Oral: Moist Mucosa Lungs: Clear to auscultation Cardiovascular: Regular rate Abdomen: Soft, Non Tender, Obese Extremities: No clubbing, No cyanosis, Edema Skin: Ulcer/ Wound - ulceration to left groin and abdominal fold with adherant slough, no signs of infection at this time. Wound Measurements and Assessment WC - Nurse 1 - General Ulcer Measurement Start: 04/24/18 15:30 Freq: Status: Active Protocol: Activity Type Activity Date Activity User E-Sign Co-Sign Detail Recorded Client Recorded Date Recorded By Document 05/15/18 13:52 DL [id number] 05/15/18 14:03 DL 05/15/18 13:52 Wound Center Nurse 1 [Ulcer Assessment] #2 Left Abdominal Fold -Current Size (cm) - Length 0.5 -Current Size (cm) - Width 2.6 -Current Size (cm) - Depth 0.4 -Total Square Cm 1.30 -Photo Taken No -Exudate Amt Small -Exudate Type Serosanguineous -Wound Margin Thickened & Rolled Under -Granulation Amt Large (67-100%) -Granulation Quality Pale [place] -Necrosis Amt Small (1-33%) -Necrotic Tissue Type Adherent Slough -Structure Exposed N/A -Texture (Inessa-wound Skin Appearance) Scarring -Moisture (Inessa-wound Skin Appearance No Abnormality ) -Color (Inessa-wound Skin Appearance) No Abnormality -Temperature (Inessa-wound Skin No Abnormality Appearance) (Pt Warm) -Tenderness on Palpation (Inessa-wound No Skin Appearance) -Ulcer Cleansing Wound Cleanser -Foul Odor after Cleansing No -Anesthetic Used 4% Lidocaine Solution #1- LEFT GROIN- POST OP -Current Size (cm) - Length 2.2 -Current Size (cm) - Width 14.2 -Current Size (cm) - Depth 0.1 -Total Square Cm 31.24 -Photo Taken No -Exudate Amt Medium -Exudate Type Serosanguineous -Wound Margin Thickened -Granulation Amt Large (67-100%) -Granulation Quality [place] Red -Necrosis Amt Small (1-33%) -Necrotic Tissue Type Adherent Slough -Structure Exposed N/A -Texture (Inessa-wound Skin Appearance) Scarring -Moisture (Inessa-wound Skin Appearance Maceration ) -Color (Inessa-wound Skin Appearance) No Abnormality -Temperature (Inessa-wound Skin No Abnormality Appearance) (Pt Warm) -Tenderness on Palpation (Inessa-wound No Skin Appearance) -Ulcer Cleansing Wound Cleanser -Anesthetic Used 4% Lidocaine Solution WC - Nurse 2 - General Ulcer CM Notes Start: 04/24/18 15:30 Freq: Status: Active Protocol: Activity Type Activity Date Activity User E-Sign Co-Sign Detail Recorded Client Recorded Date Recorded By Document 05/15/18 14:22 [id number] 05/15/18 14:29 05/15/18 14:22 Wound Center Nurse 2 [Procedure/Treatment] #2 Left Abdominal Fold -Time 14:22 -Correct Patient Yes -Correct Side, Site, Position Yes -Correct Procedure Yes -Procedure Performed Yes -Type of Procedure Debridement -Clinical Debridement Subcutaneous -Post Debridement Size (cm) - Length 0.8 -Post Debridement Size (cm) - Width 3.1 -Post Debridement Size (cm) - Depth 0.1 -Total Square Cm 2.48 -Wound/Ulcer Outcome Not Healed -Ulcer Cleansing Not Cleansed -Foul Odor after Cleansing No -Bioengineered Tissue No -Bleeding Controlled with Pressure -Offloading No -Treatment Response Procedure Tolerated Well #1- LEFT GROIN- POST OP -Time 14:22 -Correct Patient Yes -Correct Side, Site, Position Yes -Correct Procedure Yes -Procedure Performed Yes -Type of Procedure Debridement -Clinical Debridement Subcutaneous -Post Debridement Size (cm) - Length 3.1 -Post Debridement Size (cm) - Width 14.2 -Post Debridement Size (cm) - Depth 0.1 -Total Square Cm 44.02 -Wound/Ulcer Outcome Not Healed -Ulcer Cleansing Not Cleansed -Foul Odor after Cleansing No -Bioengineered Tissue No -Bleeding Controlled with Pressure -Offloading No -Treatment Response Procedure Tolerated Well [See Physician Procedure note for Specifics] Pain Scale: 0-10 Numeric [Pain] -Is Patient Pain Free? Yes Neurological: Neuro grossly intact Psych/Mental Status: Normal Affect, Appropriate, Alert and oriented to time, place, person, mood and affect Debridement Note Post-Debridement Measurements/Treatment WC - Nurse 2 - General Ulcer CM Notes Start: 04/24/18 15:30 Freq: Status: Active Protocol: Activity Type Activity Date Activity User E-Sign Co-Sign Detail Recorded Client Recorded Date Recorded By Document 04/24/18 16:22 [id number] 04/24/18 16:24 CS Document 05/01/18 15:46 DV [id number] 05/01/18 15:57 DV Document 05/08/18 15:18 CS [id number] 05/08/18 15:26 CS Document 05/15/18 14:22 [id number] 05/15/18 14:29 04/24/18 05/01/18 05/08/18 16:22 15:46 15:18 Wound Center Nurse 2 #2 Left Abdominal Fold -Time 16:23 15:49 15:18 -Correct Patient Yes Yes Yes -Correct Side, Site, Position Yes Yes Yes -Correct Procedure Yes Yes Yes -Procedure Performed Yes Yes Yes -Type of Procedure Debridement Debridement Debridement -Clinical Debridement Subcutaneous Subcutaneous Subcutaneous -Post Debridement Size (cm) - Length 3.3 0.7 1.1 -Post Debridement Size (cm) - Width 15 3.5 3.1 -Post Debridement Size (cm) - Depth 0.1 0.1 0.1 -Total Square Cm 49.5 2.45 3.41 -Wound/Ulcer Outcome Not Healed Not Healed Not Healed -Ulcer Cleansing Not Cleansed Rinsed/ Not Cleansed Irrigated with Saline -Foul Odor after Cleansing No No No -Bioengineered Tissue No No No -Bleeding Controlled with Pressure Pressure Pressure -Offloading No No No -Treatment Response Procedure Procedure Procedure Tolerated Well Tolerated Well Tolerated Well #1- LEFT GROIN- POST OP -Time 16:23 15:51 15:18 -Correct Patient Yes Yes Yes -Correct Side, Site, Position Yes Yes Yes -Correct Procedure Yes Yes Yes -Procedure Performed Yes Yes Yes -Type of Procedure Debridement Debridement Debridement -Clinical Debridement Subcutaneous Subcutaneous Subcutaneous -Post Debridement Size (cm) - Length 0.7 3.3 3.3 -Post Debridement Size (cm) - Width 4 16.8 13.5 -Post Debridement Size (cm) - Depth 0.1 0.1 0.1 -Total Square Cm 2.8 55.44 44.55 -Wound/Ulcer Outcome Not Healed Not Healed Not Healed -Ulcer Cleansing Not Cleansed Rinsed/ Not Cleansed Irrigated with Saline -Foul Odor after Cleansing No No No -Bioengineered Tissue No No No -Bleeding Controlled with Pressure Pressure Pressure -Offloading No No -Treatment Response Procedure Procedure Procedure Tolerated Well Tolerated Well Tolerated Well Pain Scale: 0-10 Numeric Is Patient Pain Free? Yes Yes Yes 05/15/18 14:22 Wound Center Nurse 2 #2 Left Abdominal Fold -Time 14:22 -Correct Patient Yes -Correct Side, Site, Position Yes -Correct Procedure Yes -Procedure Performed Yes -Type of Procedure Debridement -Clinical Debridement Subcutaneous -Post Debridement Size (cm) - Length 0.8 -Post Debridement Size (cm) - Width 3.1 -Post Debridement Size (cm) - Depth 0.1 -Total Square Cm 2.48 -Wound/Ulcer Outcome Not Healed -Ulcer Cleansing Not Cleansed -Foul Odor after Cleansing No -Bioengineered Tissue No -Bleeding Controlled with Pressure -Offloading No -Treatment Response Procedure Tolerated Well #1- LEFT GROIN- POST OP -Time 14:22 -Correct Patient Yes -Correct Side, Site, Position Yes -Correct Procedure Yes -Procedure Performed Yes -Type of Procedure Debridement -Clinical Debridement Subcutaneous -Post Debridement Size (cm) - Length 3.1 -Post Debridement Size (cm) - Width 14.2 -Post Debridement Size (cm) - Depth 0.1 -Total Square Cm 44.02 -Wound/Ulcer Outcome Not Healed -Ulcer Cleansing Not Cleansed -Foul Odor after Cleansing No -Bioengineered Tissue No -Bleeding Controlled with Pressure -Offloading No -Treatment Response Procedure Tolerated Well Pain Scale: 0-10 Numeric Is Patient Pain Free? Yes Wound debrided: left groin and abdominal fold ulcer Laterality: Left Type of Debridement: Excisional debridement Anesthesia Used: 5% Lidocaine Gel Depth: in the subcutaneous layer Percentage of wound debrided: 100 Instrument Used: 7mm curette Tissue Removed: slough and devitalized tissue Severity: Fat Layer Exposed Amount of bleeding with debridement: Mild Bleeding Controlled with: Pressure Patient tolerated procedure well Assessment/Plan Active Problems History of necrotising fasciitis (Acute) Lymphedema of both lower extremities (Acute) Type 2 diabetes mellitus (Acute) Morbid obesity (Acute) Non-healing surgical wound of left groin (Acute) Skin ulcer of abdominal wall with fat layer exposed (Acute) left abdominal fold Assessment: Nonhealing postsurgical wound left groin status post surgical excision of necrotizing fasciitis. Bilateral lower extremity edema. Morbid obesity. Type 2 diabetes mellitus Plan: The patient was seen and examined at the wound center today and was updated on the plan of care. A subcutaneous debridement was performed today. The patient tolerated the procedure well. The patients wound care will consist of: Aquacel extra change daily to left abdominal fold and groin ulcer, will hold off on purrapply aplication at this time, will apply for [facility]. Wound c ultures were reviewed prior and negative. Baseline bloodwork reviewed which demonstrated a slightly low pre-albumin and patient was advised to use Glucerna or high-protein with meals. Repeat lab work WNL. Prealbumin WNL now. Previous records were requested for continuity of care. Patient educated on the importance of diet on wound healing and instructed to increase protein and vitamin C intake. Patient verbalized understanding. Plastic surgery consultation - no surgery indicated. Did discuss with patient the importance of blood sugar control in wound healing, recent A1C in 02/2018 was 6.1. Patient to follow-up in 1 week or sooner if needed. Patient is on a complex wound plan. This note was generated with [employer] dictation software. It may contain incorrect words, spelling, and punctuation that were not noted in checking the note before signing. Code Visit 111xxx-113xx: [id number] Jessica subq tissue 20 sq cm/< Add On Codes: 25318 Jessica subq tissue add-on
[2018-05-22 15:10] VITALS: BP 160/93; PULSE 78; RESP 18; TEMP 36.1
--- NOTE | 2018-05-22 16:35 | PCM.WC.PN ---
(1) Skin ulcer of abdominal wall with fat layer exposed Status: Acute Current Visit: Yes Code(s): L98.492 - Non-pressure chronic ulcer of skin of other sites with fat layer exposed Comment: left abdominal fold (2) Non-healing surgical wound of left groin Status: Acute Current Visit: Yes Qualifiers: Code(s): T81.89XA - Other complications of procedures, not elsewhere classified, initial encounter (3) History of necrotising fasciitis Status: Acute Current Visit: Yes Code(s): Z87.39 - Personal history of other diseases of the musculoskeletal system and connective tissue (4) Lymphedema of both lower extremities Status: Acute Current Visit: Yes Code(s): I89.0 - Lymphedema, not elsewhere classified (5) Morbid obesity Status: Acute Current Visit: Yes Code(s): E66.01 - Morbid (severe) obesity due to excess calories (6) Type 2 diabetes mellitus Status: Acute Current Visit: Yes Qualifiers: Code(s): E11.9 - Type 2 diabetes mellitus without complications Type of Wound Date of Service: 05/22/18 Chief Complaint: Nonhealing wound status post surgical excision of necrotizing fasciitis left groin History of Wound: 46-year-old white male who presents to the wound healing center today with complaint of left groin ulceration status post surgical excision of necrotizing fasciitis. He is a past medical history which is significant for that of type 2 diabetes mellitus, gout, diabetic neuropathy, schizophrenia, bilateral lymphedema, and schizophrenia. The patient states that what initially started as a pimple in his left groin progressed to necrotizing fasciitis and he had to have this surgically debrided in April 2017. He was admitted to [facility] for 2 weeks and then [facility] for 6 weeks afterwards. He states that the groin ulcer which extends to his left lower abdomen has been slowly improving and he has been doing daily Aquacel AG dressings with an ABD for the drainage. He does state that he has had 3 wound vacs in the past which were unable to be utilized due to the location of his wound. He denies any foul-smelling discharge or systemic signs of infection at this time. The patient otherwise denies any fever, chills, nausea, vomiting, shortness of breath, chest pain or pressure, palpitations, orthopnea, syncope or presyncopal episodes. Progress of Wound: Wounds are stable at this time, wound beds are moist and clean and without signs of gross infection at this time, slightly macerated this week. There was a bridge of skin that has epithelialized and now made into 2 separate wounds wound 1 left groin and wound to left lower abdominal fold. Patient continues to increase his oral protein supplementation with whey protein. Continues to have scant amount of serosanguineous drainage from left groin wound. The patient otherwise denies any fever, chills, nausea, vomiting, shortness of breath, chest pain or pressure, palpitations, orthopnea, lower extremity edema, syncope or presyncopal episodes. - Physical Exam Vital Signs Temp Pulse Resp BP 97 F L 78 18 160/93 H 05/22/18 15:10 05/22/18 15:10 05/22/18 15:10 05/22/18 15:10 General: Alert, Oriented x3, Cooperative, No apparent distress HEENT: Atraumatic, PERRLA, EOMI Oral: Moist Mucosa Neck: Supple, No JVD, Negative Carotid Bruits Lungs: Clear to auscultation Cardiovascular: Regular rate, Regular Rhythm Abdomen: Soft, Non Tender Extremities: No edema, Capillary Refill Less than 3 Seconds Skin: Ulcer/ Wound - Left abdominal fold and left groin ulcer with adherent slough, no signs of infection at this time, no redness, streaking, warmth, or purulent drainage. Wound Measurements and Assessment WC - Nurse 1 - General Ulcer Measurement Start: 04/24/18 15:30 Freq: Status: Active Protocol: Activity Type Activity Date Activity User E-Sign Co-Sign Detail Recorded Client Recorded Date Recorded By Document 05/22/18 15:10 [id number] 05/22/18 15:16 DL 05/22/18 15:10 Wound Center Nurse 1 [Ulcer Assessment] #2 Left Abdominal Fold -Current Size (cm) - Length 0.5 -Current Size (cm) - Width 2.8 -Current Size (cm) - Depth 0.3 -Total Square Cm 1.40 -Tunneling No -Undermining/Tunneling No -Circular Undermining No -Exudate Amt Medium -Exudate Type Serosanguineous -Wound Margin Distinct, Outline Attached -Granulation Amt Large (67-100%) -Granulation Quality [place] -Slough/Fibrin Yes -Necrosis Amt Small (1-33%) -Texture (Inessa-wound Skin Appearance) Assessed -Moisture (Inessa-wound Skin Appearance Assessed ) -Color (Inessa-wound Skin Appearance) Assessed -Temperature (Inessa-wound Skin No Abnormality Appearance) (Pt Warm) -Tenderness on Palpation (Inessa-wound No Skin Appearance) -Ulcer Cleansing Wound Cleanser -Foul Odor after Cleansing No -Anesthetic Used 4% Lidocaine Solution #1- LEFT GROIN- POST OP -Combined with other wound No -Current Size (cm) - Length 14.4 -Current Size (cm) - Width 2.4 -Current Size (cm) - Depth 0.1 -Total Square Cm 34.56 -Tunneling No -Undermining/Tunneling No -Circular Undermining No -Exudate Amt Medium -Exudate Type Serosanguineous -Wound Margin Distinct, Outline Attached -Granulation Amt Large (67-100%) -Granulation Quality [place] -Slough/Fibrin Yes -Necrosis Amt Small (1-33%) -Necrotic Tissue Type Adherent Slough -Structure Exposed N/A -Texture (Inessa-wound Skin Appearance) Assessed -Moisture (Inessa-wound Skin Appearance Maceration ) -Color (Inessa-wound Skin Appearance) Assessed -Temperature (Inessa-wound Skin No Abnormality Appearance) (Pt Warm) -Tenderness on Palpation (Inessa-wound No Skin Appearance) -Ulcer Cleansing Wound Cleanser -Foul Odor after Cleansing No -Anesthetic Used 4% Lidocaine Solution WC - Nurse 2 - General Ulcer CM Notes Start: 04/24/18 15:30 Freq: Status: Active Protocol: Activity Type Activity Date Activity User E-Sign Co-Sign Detail Recorded Client Recorded Date Recorded By Document 05/22/18 15:45 MW [id number] 05/22/18 16:00 MW 05/22/18 15:45 Wound Center Nurse 2 [Procedure/Treatment] #2 Left Abdominal Fold -Time 15:47 -Correct Patient Yes -Correct Side, Site, Position Yes -Correct Procedure Yes -Procedure Performed Yes -Type of Procedure Debridement -Clinical Debridement Subcutaneous -Post Debridement Size (cm) - Length 0.8 -Post Debridement Size (cm) - Width 3.5 -Post Debridement Size (cm) - Depth 0.1 -Total Square Cm 2.80 -Wound/Ulcer Outcome Not Healed -Ulcer Cleansing Rinsed/ Irrigated with Saline -Foul Odor after Cleansing No -Bioengineered Tissue No -Bleeding Controlled with Pressure -Offloading No -Treatment Response Procedure Tolerated Well #1- LEFT GROIN- POST OP -Time 15:47 -Correct Patient Yes -Correct Side, Site, Position Yes -Correct Procedure Yes -Procedure Performed Yes -Type of Procedure Debridement -Clinical Debridement Subcutaneous -Post Debridement Size (cm) - Length 3.2 -Post Debridement Size (cm) - Width 14.7 -Post Debridement Size (cm) - Depth 0.1 -Total Square Cm 47.04 -Wound/Ulcer Outcome Not Healed -Ulcer Cleansing Rinsed/ Irrigated with Saline -Foul Odor after Cleansing No -Bioengineered Tissue No -Bleeding Controlled with Pressure -Offloading No -Treatment Response Procedure Tolerated Well [See Physician Procedure note for Specifics] Pain Scale: 0-10 Numeric [Pain] -Is Patient Pain Free? Yes Musculoskeletal: No Tenderness to Palpation of Joints or Extremities Neurological: Neuro grossly intact Psych/Mental Status: Normal Affect, Appropriate, Alert and oriented to time, place, person, mood and affect Debridement Note Post-Debridement Measurements/Treatment WC - Nurse 2 - General Ulcer CM Notes Start: 04/24/18 15:30 Freq: Status: Active Protocol: Activity Type Activity Date Activity User E-Sign Co-Sign Detail Recorded Client Recorded Date Recorded By Document 04/24/18 16:22 [id number] 04/24/18 16:24 CS Document 05/01/18 15:46 DV [id number] 05/01/18 15:57 DV Document 05/08/18 15:18 CS [id number] 05/08/18 15:26 CS Document 05/15/18 14:22 CS [id number] 05/15/18 14:29 CS Document 05/22/18 15:45 MW [id number] 05/22/18 16:00 MW 04/24/18 05/01/18 05/08/18 16:22 15:46 15:18 Wound Center Nurse 2 #2 Left Abdominal Fold -Time 16:23 15:49 15:18 -Correct Patient Yes Yes Yes -Correct Side, Site, Position Yes Yes Yes -Correct Procedure Yes Yes Yes -Procedure Performed Yes Yes Yes -Type of Procedure Debridement Debridement Debridement -Clinical Debridement Subcutaneous Subcutaneous Subcutaneous -Post Debridement Size (cm) - Length 3.3 0.7 1.1 -Post Debridement Size (cm) - Width 15 3.5 3.1 -Post Debridement Size (cm) - Depth 0.1 0.1 0.1 -Total Square Cm 49.5 2.45 3.41 -Wound/Ulcer Outcome Not Healed Not Healed Not Healed -Ulcer Cleansing Not Cleansed Rinsed/ Not Cleansed Irrigated with Saline -Foul Odor after Cleansing No No No -Bioengineered Tissue No No No -Bleeding Controlled with Pressure Pressure Pressure -Offloading No No No -Treatment Response Procedure Procedure Procedure Tolerated Well Tolerated Well Tolerated Well #1- LEFT GROIN- POST OP -Time 16:23 15:51 15:18 -Correct Patient Yes Yes Yes -Correct Side, Site, Position Yes Yes Yes -Correct Procedure Yes Yes Yes -Procedure Performed Yes Yes Yes -Type of Procedure Debridement Debridement Debridement -Clinical Debridement Subcutaneous Subcutaneous Subcutaneous -Post Debridement Size (cm) - Length 0.7 3.3 3.3 -Post Debridement Size (cm) - Width 4 16.8 13.5 -Post Debridement Size (cm) - Depth 0.1 0.1 0.1 -Total Square Cm 2.8 55.44 44.55 -Wound/Ulcer Outcome Not Healed Not Healed Not Healed -Ulcer Cleansing Not Cleansed Rinsed/ Not Cleansed Irrigated with Saline -Foul Odor after Cleansing No No No -Bioengineered Tissue No No No -Bleeding Controlled with Pressure Pressure Pressure -Offloading No No -Treatment Response Procedure Procedure Procedure Tolerated Well Tolerated Well Tolerated Well Pain Scale: 0-10 Numeric Is Patient Pain Free? Yes Yes Yes 05/15/18 05/22/18 14:22 15:45 Wound Center Nurse 2 #2 Left Abdominal Fold -Time 14:22 15:47 -Correct Patient Yes Yes -Correct Side, Site, Position Yes Yes -Correct Procedure Yes Yes -Procedure Performed Yes Yes -Type of Procedure Debridement Debridement -Clinical Debridement Subcutaneous Subcutaneous -Post Debridement Size (cm) - Length 0.8 0.8 -Post Debridement Size (cm) - Width 3.1 3.5 -Post Debridement Size (cm) - Depth 0.1 0.1 -Total Square Cm 2.48 2.80 -Wound/Ulcer Outcome Not Healed Not Healed -Ulcer Cleansing Not Cleansed Rinsed/ Irrigated with Saline -Foul Odor after Cleansing No No -Bioengineered Tissue No No -Bleeding Controlled with Pressure Pressure -Offloading No No -Treatment Response Procedure Procedure Tolerated Well Tolerated Well #1- LEFT GROIN- POST OP -Time 14:22 15:47 -Correct Patient Yes Yes -Correct Side, Site, Position Yes Yes -Correct Procedure Yes Yes -Procedure Performed Yes Yes -Type of Procedure Debridement Debridement -Clinical Debridement Subcutaneous Subcutaneous -Post Debridement Size (cm) - Length 3.1 3.2 -Post Debridement Size (cm) - Width 14.2 14.7 -Post Debridement Size (cm) - Depth 0.1 0.1 -Total Square Cm 44.02 47.04 -Wound/Ulcer Outcome Not Healed Not Healed -Ulcer Cleansing Not Cleansed Rinsed/ Irrigated with Saline -Foul Odor after Cleansing No No -Bioengineered Tissue No No -Bleeding Controlled with Pressure Pressure -Offloading No No -Treatment Response Procedure Procedure Tolerated Well Tolerated Well Pain Scale: 0-10 Numeric Is Patient Pain Free? Yes Yes Wound debrided: Left abdominal fold and groin ulcer Laterality: Left Type of Debridement: Excisional debridement Anesthesia Used: 5% Lidocaine Gel Depth: in the subcutaneous layer Percentage of wound debrided: 100 Instrument Used: 7mm curette Tissue Removed: Slough and devitalized tissue Severity: Fat Layer Exposed Amount of bleeding with debridement: Mild Bleeding Controlled with: Pressure Patient tolerated procedure well Assessment/Plan Active Problems History of necrotising fasciitis (Acute) Lymphedema of both lower extremities (Acute) Type 2 diabetes mellitus (Acute) Morbid obesity (Acute) Non-healing surgical wound of left groin (Acute) Skin ulcer of abdominal wall with fat layer exposed (Acute) left abdominal fold Assessment: Nonhealing postsurgical wound left groin status post surgical excision of necrotizing fasciitis. Bilateral lower extremity edema. Morbid obesity. Type 2 diabetes mellitus Plan: The patient was seen and examined at the wound center today and was updated on the plan of care. A subcutaneous debridement was performed today. The patient tolerated the procedure well. The patients wound care will consist of: Aquacel extra change daily to left groin ulcer and free product sample of [place] was applied to the left abdominal fold ulcer which will remain on for a week, this was covered with wound veil and steri strips on for securement. Wound cultures were reviewed prior and negative. Baseline bloodwork reviewed which demonstrated a slightly low pre-albumin and patient was advised to use Glucerna or high-protein with meals. Repeat lab work WNL. Prealbumin WNL now. Previous records were requested for continuity of care. Patient educated on the importance of diet on wound healing and instructed to increase protein and vitamin C intake. Patient verbalized understanding. Plastic surgery consultation - no surgery indicated. Did discuss with patient the importance of blood sugar control in wound healing, recent A1C in 02/2018 was 6.1. Patient to follow-up in 1 week or sooner if needed. Patient is on a complex wound plan. This note was generated with [employer] dictation software. It may contain incorrect words, spelling, and punctuation that were not noted in checking the note before signing. Code Visit 111xxx-113xx: [id number] Jessica subq tissue 20 sq cm/< Add On Codes: [id number] Jessica subq tissue add-on
--- NOTE | 2018-05-22 16:39 | PN.PCM_ITS ---
(1) Skin ulcer of abdominal wall with fat layer exposed Status: Acute Current Visit: Yes Code(s): L98.492 - Non-pressure chronic ulcer of skin of other sites with fat layer exposed Comment: left abdominal fold (2) Non-healing surgical wound of left groin Status: Acute Current Visit: Yes Qualifiers: Code(s): T81.89XA - Other complications of procedures, not elsewhere classified, initial encounter (3) History of necrotising fasciitis Status: Acute Current Visit: Yes Code(s): Z87.39 - Personal history of other diseases of the musculoskeletal system and connective tissue (4) Lymphedema of both lower extremities Status: Acute Current Visit: Yes Code(s): I89.0 - Lymphedema, not elsewhere classified (5) Morbid obesity Status: Acute Current Visit: Yes Code(s): E66.01 - Morbid (severe) obesity due to excess calories (6) Type 2 diabetes mellitus Status: Acute Current Visit: Yes Qualifiers: Code(s): E11.9 - Type 2 diabetes mellitus without complications Type of Wound Date of Service: 05/22/18 Chief Complaint: Nonhealing wound status post surgical excision of necrotizing fasciitis left groin History of Wound: 46-year-old white male who presents to the wound healing center today with complaint of left groin ulceration status post surgical excision of necrotizing fasciitis. He is a past medical history which is significant for that of type 2 diabetes mellitus, gout, diabetic neuropathy, schizophrenia, bilateral lymphedema, and schizophrenia. The patient states that what initially started as a pimple in his left groin progressed to necrotizing fasciitis and he had to have this surgically debrided in April 2017. He was admitted to [facility] for 2 weeks and then [facility] for 6 weeks afterwards. He states that the groin ulcer which extends to his left lower abdomen has been slowly improving and he has been doing daily Aquacel AG dressings with an ABD for the drainage. He does state that he has had 3 wound vacs in the past which were unable to be utilized due to the location of his wound. He denies any foul-smelling discharge or systemic signs of infection at this time. The patient otherwise denies any fever, chills, nausea, vomiting, shortness of breath, chest pain or pressure, palpitations, orthopnea, syncope or presyncopal episodes. Progress of Wound: Wounds are stable at this time, wound beds are moist and clean and without signs of gross infection at this time, slightly macerated this week. There was a bridge of skin that has epithelialized and now made into 2 separate wounds wound 1 left groin and wound to left lower abdominal fold. Patient continues to increase his oral protein supplementation with whey protei n. Continues to have scant amount of serosanguineous drainage from left groin wound. The patient otherwise denies any fever, chills, nausea, vomiting, shortness of breath, chest pain or pressure, palpitations, orthopnea, lower extremity edema, syncope or presyncopal episodes. - Physical Exam Vital Signs Temp Pulse Resp BP 97 F L 78 18 160/93 H 05/22/18 15:10 05/22/18 15:10 05/22/18 15:10 05/22/18 15:10 General: Alert, Oriented x3, Cooperative, No apparent distress HEENT: Atraumatic, PERRLA, EOMI Oral: Moist Mucosa Neck: Supple, No JVD, Negative Carotid Bruits Lungs: Clear to auscultation Cardiovascular: Regular rate, Regular Rhythm Abdomen: Soft, Non Tender Extremities: No edema, Capillary Refill Less than 3 Seconds Skin: Ulcer/ Wound - Left abdominal fold and left groin ulcer with adherent slough, no signs of infection at this time, no redness, streaking, warmth, or purulent drainage. Wound Measurements and Assessment WC - Nurse 1 - General Ulcer Measurement Start: 04/24/18 15:30 Freq: Status: Active Protocol: Activity Type Activity Date Activity User E-Sign Co-Sign Detail Recorded Client Recorded Date Recorded By Document 05/22/18 15:10 DL [id number] 05/22/18 15:16 DL 05/22/18 15:10 Wound Center Nurse 1 [Ulcer Assessment] #2 Left Abdominal Fold -Current Size (cm) - Length 0.5 -Current Size (cm) - Width 2.8 -Current Size (cm) - Depth 0.3 -Total Square Cm 1.40 -Tunneling No -Undermining/Tunneling No -Circular Undermining No -Exudate Amt Medium -Exudate Type Serosanguineous -Wound Margin Distinct, Outline Attached -Granulation Amt Large (67-100%) -Granulation Quality [place] -Slough/Fibrin Yes -Necrosis Amt Small (1-33%) -Texture (Inessa-wound Skin Appearance) Assessed -Moisture (Inessa-wound Skin Appearance Assessed ) -Color (Inessa-wound Skin Appearance) Assessed -Temperature (Inessa-wound Skin No Abnormality Appearance) (Pt Warm) -Tenderness on Palpation (Inessa-wound No Skin Appearance) -Ulcer Cleansing Wound Cleanser -Foul Odor after Cleansing No -Anesthetic Used 4% Lidocaine Solution #1- LEFT GROIN- POST OP -Combined with other wound No -Current Size (cm) - Length 14.4 -Current Size (cm) - Width 2.4 -Current Size (cm) - Depth 0.1 -Total Square Cm 34.56 -Tunneling No -Undermining/Tunneling No -Circular Undermining No -Exudate Amt Medium -Exudate Type Serosanguineous -Wound Margin Distinct, Outline Attached -Granulation Amt Large (67-100%) -Granulation Quality [place] -Slough/Fibrin Yes -Necrosis Amt Small (1-33%) -Necrotic Tissue Type Adherent Slough -Structure Exposed N/A -Texture (Inessa-wound Skin Appearance) Assessed -Moisture (Inessa-wound Skin Appearance Maceration ) -Color (Inessa-wound Skin Appearance) Assessed -Temperature (Inessa-wound Skin No Abnormality Appearance) (Pt Warm) -Tenderness on Palpation (Inessa-wound No Skin Appearance) -Ulcer Cleansing Wound Cleanser -Foul Odor after Cleansing No -Anesthetic Used 4% Lidocaine Solution WC - Nurse 2 - General Ulcer CM Notes Start: 04/24/18 15:30 Freq: Status: Active Protocol: Activity Type Activity Date Activity User E-Sign Co-Sign Detail Recorded Client Recorded Date Recorded By Document 05/22/18 15:45 MW [id number] 05/22/18 16:00 MW 05/22/18 15:45 Wound Center Nurse 2 [Procedure/Treatment] #2 Left Abdominal Fold -Time 15:47 -Correct Patient Yes -Correct Side, Site, Position Yes -Correct Procedure Yes -Procedure Performed Yes -Type of Procedure Debridement -Clinical Debridement Subcutaneous -Post Debridement Size (cm) - Length 0.8 -Post Debridement Size (cm) - Width 3.5 -Post Debridement Size (cm) - Depth 0.1 -Total Square Cm 2.80 -Wound/Ulcer Outcome Not Healed -Ulcer Cleansing Rinsed/ Irrigated with Saline -Foul Odor after Cleansing No -Bioengineered Tissue No -Bleeding Controlled with Pressure -Offloading No -Treatment Response Procedure Tolerated Well #1- LEFT GROIN- POST OP -Time 15:47 -Correct Patient Yes -Correct Side, Site, Position Yes -Correct Procedure Yes -Procedure Performed Yes -Type of Procedure Debridement -Clinical Debridement Subcutaneous -Post Debridement Size (cm) - Length 3.2 -Post Debridement Size (cm) - Width 14.7 -Post Debridement Size (cm) - Depth 0.1 -Total Square Cm 47.04 -Wound/Ulcer Outcome Not Healed -Ulcer Cleansing Rinsed/ Irrigated with Saline -Foul Odor after Cleansing No -Bioengineered Tissue No -Bleeding Controlled with Pressure -Offloading No -Treatment Response Procedure Tolerated Well [See Physician Procedure note for Specifics] Pain Scale: 0-10 Numeric [Pain] -Is Patient Pain Free? Yes Musculoskeletal: No Tenderness to Palpation of Joints or Extremities Neurological: Neuro grossly intact Psych/Mental Status: Normal Affect, Appropriate, Alert and oriented to time, place, person, mood and affect Debridement Note Post-Debridement Measurements/Treatment WC - Nurse 2 - General Ulcer CM Notes Start: 04/24/18 15:30 Freq: Status: Active Protocol: Activity Type Activity Date Activity User E-Sign Co-Sign Detail Recorded Client Recorded Date Recorded By Document 04/24/18 16:22 [id number] 04/24/18 16:24 CS Document 05/01/18 15:46 DV [id number] 05/01/18 15:57 DV Document 05/08/18 15:18 CS [id number] 05/08/18 15:26 CS Document 05/15/18 14:22 CS [id number] 05/15/18 14:29 CS Document 05/22/18 15:45 MW [id number] 05/22/18 16:00 MW 04/24/18 05/01/18 05/08/18 16:22 15:46 15:18 Wound Center Nurse 2 #2 Left Abdominal Fold -Time 16:23 15:49 15:18 -Correct Patient Yes Yes Yes -Correct Side, Site, Position Yes Yes Yes -Correct Procedure Yes Yes Yes -Procedure Performed Yes Yes Yes -Type of Procedure Debridement Debridement Debridement -Clinical Debridement Subcutaneous Subcutaneous Subcutaneous -Post Debridement Size (cm) - Length 3.3 0.7 1.1 -Post Debridement Size (cm) - Width 15 3.5 3.1 -Post Debridement Size (cm) - Depth 0.1 0.1 0.1 -Total Square Cm 49.5 2.45 3.41 -Wound/Ulcer Outcome Not Healed Not Healed Not Healed -Ulcer Cleansing Not Cleansed Rinsed/ Not Cleansed Irrigated with Saline -Foul Odor after Cleansing No No No -Bioengineered Tissue No No No -Bleeding Controlled with Pressure Pressure Pressure -Offloading No No No -Treatment Response Procedure Procedure Procedure Tolerated Well Tolerated Well Tolerated Well #1- LEFT GROIN- POST OP -Time 16:23 15:51 15:18 -Correct Patient Yes Yes Yes -Correct Side, Site, Position Yes Yes Yes -Correct Procedure Yes Yes Yes -Procedure Performed Yes Yes Yes -Type of Procedure Debridement Debridement Debridement -Clinical Debridement Subcutaneous Subcutaneous Subcutaneous -Post Debridement Size (cm) - Length 0.7 3.3 3.3 -Post Debridement Size (cm) - Width 4 16.8 13.5 -Post Debridement Size (cm) - Depth 0.1 0.1 0.1 -Total Square Cm 2.8 55.44 44.55 -Wound/Ulcer Outcome Not Healed Not Healed Not Healed -Ulcer Cleansing Not Cleansed Rinsed/ Not Cleansed Irrigated with Saline -Foul Odor after Cleansing No No No -Bioengineered Tissue No No No -Bleeding Controlled with Pressure Pressure Pressure -Offloading No No -Treatment Response Procedure Procedure Procedure Tolerated Well Tolerated Well Tolerated Well Pain Scale: 0-10 Numeric Is Patient Pain Free? Yes Yes Yes 05/15/18 05/22/18 14:22 15:45 Wound Center Nurse 2 #2 Left Abdominal Fold -Time 14:22 15:47 -Correct Patient Yes Yes -Correct Side, Site, Position Yes Yes -Correct Procedure Yes Yes -Procedure Performed Yes Yes -Type of Procedure Debridement Debridement -Clinical Debridement Subcutaneous Subcutaneous -Post Debridement Size (cm) - Length 0.8 0.8 -Post Debridement Size (cm) - Width 3.1 3.5 -Post Debridement Size (cm) - Depth 0.1 0.1 -Total Square Cm 2.48 2.80 -Wound/Ulcer Outcome Not Healed Not Healed -Ulcer Cleansing Not Cleansed Rinsed/ Irrigated with Saline -Foul Odor after Cleansing No No -Bioengineered Tissue No No -Bleeding Controlled with Pressure Pressure -Offloading No No -Treatment Response Procedure Procedure Tolerated Well Tolerated Well #1- LEFT GROIN- POST OP -Time 14:22 15:47 -Correct Patient Yes Yes -Correct Side, Site, Position Yes Yes -Correct Procedure Yes Yes -Procedure Performed Yes Yes -Type of Procedure Debridement Debridement -Clinical Debridement Subcutaneous Subcutaneous -Post Debridement Size (cm) - Length 3.1 3.2 -Post Debridement Size (cm) - Width 14.2 14.7 -Post Debridement Size (cm) - Depth 0.1 0.1 -Total Square Cm 44.02 47.04 -Wound/Ulcer Outcome Not Healed Not Healed -Ulcer Cleansing Not Cleansed Rinsed/ Irrigated with Saline -Foul Odor after Cleansing No No -Bioengineered Tissue No No -Bleeding Controlled with Pressure Pressure -Offloading No No -Treatment Response Procedure Procedure Tolerated Well Tolerated Well Pain Scale: 0-10 Numeric Is Patient Pain Free? Yes Yes Wound debrided: Left abdominal fold and groin ulcer Laterality: Left Type of Debridement: Excisional debridement Anesthesia Used: 5% Lidocaine Gel Depth: in the subcutaneous layer Percentage of wound debrided: 100 Instrument Used: 7mm curette Tissue Removed: Slough and devitalized tissue Severity: Fat Layer Exposed Amount of bleeding with debridement: Mild Bleeding Controlled with: Pressure Patient tolerated procedure well Assessment/Plan Active Problems History of necrotising fasciitis (Acute) Lymphedema of both lower extremities (Acute) Type 2 diabetes mellitus (Acute) Morbid obesity (Acute) Non-healing surgical wound of left groin (Acute) Skin ulcer of abdominal wall with fat layer exposed (Acute) left abdominal fold Assessment: Nonhealing postsurgical wound left groin status post surgical excision of necrotizing fasciitis. Bilateral lower extremity edema. Morbid obesity. Type 2 diabetes mellitus Plan: The patient was seen and examined at the wound center today and was updated on the plan of care. A subcutaneous debridement was performed today. The patient tolerated the procedure well. The patients wound care will consist of: Aquacel extra change daily to left groin ulcer and free product sample of [place] was applied to the left abdominal fold ulcer which will remain on for a week, this was covered with wound veil and steri strips on for securement. Wound cultures were reviewed prior and negative. Baseline bloodwork reviewed which de monstrated a slightly low pre-albumin and patient was advised to use Glucerna or high-protein with meals. Repeat lab work WNL. Prealbumin WNL now. Previous records were requested for continuity of care. Patient educated on the importance of diet on wound healing and instructed to increase protein and vitamin C intake. Patient verbalized understanding. Plastic surgery consultation - no surgery indicated. Did discuss with patient the importance of blood sugar control in wound healing, recent A1C in 02/2018 was 6.1. Patient to follow-up in 1 week or sooner if needed. Patient is on a complex wound plan. This note was generated with [employer] dictation software. It may contain incorrect words, spelling, and punctuation that were not noted in checking the note before signing. Code Visit 111xxx-113xx: 37281 Jessica subq tissue 20 sq cm/< Add On Codes: [id number] Jessica subq tissue add-on
== END 2018-05-22 23:59 ==
LOC: WC 15:30
PROVIDERS: Family Provider Family Medicine; PCP Family Medicine; Visit Provider Nurse Practitioner Family
DX: E11.622 Type 2 diabetes mellitus with other skin ulcer (principal); L98.492 Non-pressure chronic ulcer of skin of other sites with fat layer exposed; I89.0 Lymphedema, not elsewhere classified; E66.01 Morbid (severe) obesity due to excess calories; Z68.43 Body mass index [BMI] 50.0-59.9, adult; Z71.3 Dietary counseling and surveillance; R60.0 Localized edema; E11.42 Type 2 diabetes mellitus with diabetic polyneuropathy; E11.40 Type 2 diabetes mellitus with diabetic neuropathy, unspecified
CPT/HCPCS: 11042; 11045

== ENCOUNTER 2018-06-19 15:30 | Outpatient (RCR) | payer MEDICARE, MEDICAID, SELFPAY ==
[2018-05-23 01:05] VITALS: BP 160/93; PULSE 78; RESP 18; TEMP 36.1
[2018-05-29 15:50] VITALS: BP 141/88; PULSE 85; RESP 18; TEMP 36.1
--- NOTE | 2018-05-29 19:43 | PCM.WC.PN ---
(1) Skin ulcer of abdominal wall with fat layer exposed Status: Acute Code(s): L98.492 - Non-pressure chronic ulcer of skin of other sites with fat layer exposed Comment: left abdominal fold (2) Non-healing surgical wound of left groin Status: Acute Qualifiers: Code(s): T81.89XA - Other complications of procedures, not elsewhere classified, initial encounter (3) Diabetic neuropathy Status: Acute Code(s): E11.40 - Type 2 diabetes mellitus with diabetic neuropathy, unspecified (4) History of necrotising fasciitis Status: Acute Code(s): Z87.39 - Personal history of other diseases of the musculoskeletal system and connective tissue (5) Lymphedema of both lower extremities Status: Acute Code(s): I89.0 - Lymphedema, not elsewhere classified (6) Morbid obesity Status: Acute Code(s): E66.01 - Morbid (severe) obesity due to excess calories (7) Type 2 diabetes mellitus Status: Acute Qualifiers: Code(s): E11.9 - Type 2 diabetes mellitus without complications Type of Wound Date of Service: 05/29/18 Chief Complaint: Nonhealing wound status post surgical excision of necrotizing fasciitis left groin History of Wound: 46-year-old white male who presents to the wound healing center today with complaint of left groin ulceration status post surgical excision of necrotizing fasciitis. He is a past medical history which is significant for that of type 2 diabetes mellitus, gout, diabetic neuropathy, schizophrenia, bilateral lymphedema, and schizophrenia. The patient states that what initially started as a pimple in his left groin progressed to necrotizing fasciitis and he had to have this surgically debrided in April 2017. He was admitted to [facility] for 2 weeks and then [facility] for 6 weeks afterwards. He states that the groin ulcer which extends to his left lower abdomen has been slowly improving and he has been doing daily Aquacel AG dressings with an ABD for the drainage. He does state that he has had 3 wound vacs in the past which were unable to be utilized due to the location of his wound. He denies any foul-smelling discharge or systemic signs of infection at this time. The patient otherwise denies any fever, chills, nausea, vomiting, shortness of breath, chest pain or pressure, palpitations, orthopnea, syncope or presyncopal episodes. Progress of Wound: Wounds are stable at this time, wound beds are moist and clean and without signs of gross infection at this time, still having delayed wound healing. Today will be the first application of new shield to the left groin wound. There is a bridge of skin that has epithelialized and now made into 2 separate wounds wound 1 left groin and wound to left lower abdominal fold. Patient continues to increase his oral protein supplementation with whey protein. Continues to have scant amount of serosanguineous drainage from left groin wound. The patient otherwise denies any fever, chills, nausea, vomiting, shortness of breath, chest pain or pressure, palpitations, orthopnea, lower extremity edema, syncope or presyncopal episodes. - Physical Exam Vital Signs Temp Pulse Resp BP 97.0 F L 85 18 141/88 H 05/29/18 15:50 05/29/18 15:50 05/29/18 15:50 05/29/18 15:50 General: Alert, Oriented x3, Cooperative, No apparent distress HEENT: Atraumatic Oral: Moist Mucosa Lungs: Clear to auscultation, Normal air movement Cardiovascular: Regular rate Abdomen: Soft, Non Tender, Obese Skin: Ulcer/ Wound - Wounds to the left groin and left abdominal fold with adherent slough, no signs of infection at this time, no redness, odor, or purulent drainage noted. Musculoskeletal: No Tenderness to Palpation of Joints or Extremities, No Muscle Wasting Neurological: Neuro grossly intact Psych/Mental Status: Normal Affect, Appropriate, Alert and oriented to time, place, person, mood and affect Debridement Note Post-Debridement Measurements/Treatment WC - Nurse 2 - General Ulcer CM Notes Start: 05/29/18 15:50 Freq: Status: Active Protocol: Activity Type Activity Date Activity User E-Sign Co-Sign Detail Recorded Client Recorded Date Recorded By Document 05/29/18 16:28 DV [id number] 05/29/18 16:36 DV 05/29/18 16:28 Wound Center Nurse 2 #2 Left Abdominal Fold -Time 16:29 -Correct Patient Yes -Correct Side, Site, Position Yes -Correct Procedure Yes -Procedure Performed Yes -Type of Procedure Debridement -Clinical Debridement Subcutaneous -Post Debridement Size (cm) - Length 0.6 -Post Debridement Size (cm) - Width 2.9 -Post Debridement Size (cm) - Depth 0.1 -Total Square Cm 1.74 -Wound/Ulcer Outcome Not Healed -Ulcer Cleansing Rinsed/ Irrigated with Saline -Foul Odor after Cleansing No -Bioengineered Tissue No -Bleeding Controlled with Pressure -Offloading No -Treatment Response Procedure Tolerated Well #1- LEFT GROIN- POST OP -Time 16:30 -Correct Patient Yes -Correct Side, Site, Position Yes -Correct Procedure Yes -Procedure Performed Yes -Type of Procedure Debridement -Clinical Debridement Subcutaneous -Post Debridement Size (cm) - Length 3.6 -Post Debridement Size (cm) - Width 14.1 -Post Debridement Size (cm) - Depth 0.1 -Total Square Cm 50.76 -Wound/Ulcer Outcome Not Healed -Ulcer Cleansing Rinsed/ Irrigated with Saline -Foul Odor after Cleansing No -Bioengineered Tissue Yes -Type of bioengineered Tissue NU-SHIELD -Expiration Date 05/03/23 -Product Lot Number [id number] -Percent Used 100 -Bleeding Controlled with Pressure -Offloading No -Treatment Response Procedure Tolerated Well Pain Scale: 0-10 Numeric Is Patient Pain Free? Yes Wound debrided: Left abdominal fold ulcer Laterality: Left Type of Debridement: Excisional debridement Anesthesia Used: 5% Lidocaine Gel Depth: in the subcutaneous layer Percentage of wound debrided: 100 Instrument Used: 5mm curette Tissue Removed: Slough and devitalized tissue Severity: Fat Layer Exposed Amount of bleeding with debridement: Mild Bleeding Controlled with: Pressure Patient tolerated procedure well - Additional Wound Wound debrided: Left groin wound Laterality: Left Type of Debridement: Excisional debridement Anesthesia Used: 5% Lidocaine Gel Depth: in the subcutaneous layer Percentage of wound debrided: 100 Instrument Used: 5mm curette Tissue Removed: Slough and devitalized tissue Severity: Fat Layer Exposed Amount of bleeding with debridement: Mild Bleeding Controlled with: Pressure Patient tolerated procedure: Patient tolerated procedure well Assessment/Plan Assessment: Nonhealing postsurgical wound left groin status post surgical excision of necrotizing fasciitis. Bilateral lower extremity edema. Morbid obesity. Type 2 diabetes mellitus Plan: The patient was seen and examined at the wound center today and was updated on the plan of care. A subcutaneous debridement was performed today. The patient tolerated the procedure well. The patients wound care will consist of: [place] #1 was applied to left groin wound after subcutaneous debridement, it was then covered with the wound veil and secured with Steri-Strips, 100% of the product was used with 0% waste. Patient tolerated the procedure well. Aquacel extra change daily to remaining area not covered with product to left groin ulcer and free product sample of [place] was applied to the left abdominal fold ulcer which will remain on for a week, this was covered with wound veil and steri strips on for securement. Wound cultures were reviewed prior and negative. Baseline bloodwork reviewed which demonstrated a slightly low pre-albumin and patient was advised to use Glucerna or high-protein with meals. Repeat lab work WNL. Prealbumin WNL now. Previous records were requested for continuity of care. Patient educated on the importance of diet on wound healing and instructed to increase protein and vitamin C intake. Patient verbalized understanding. Plastic surgery consultation - no surgery indicated. Did discuss with patient the importance of blood sugar control in wound healing, recent A1C in 02/2018 was 6.1. Patient to follow-up in 1 week or sooner if needed. Patient is on a complex wound plan. This note was generated with [employer] dictation software. It may contain incorrect words, spelling, and punctuation that were not noted in checking the note before signing. Code Visit 111xxx-113xx: 17693 Jessica subq tissue 20 sq cm/< 150xxx-152xx: 13676 Skin sub graft trnk/arm/leg
--- NOTE | 2018-06-03 10:48 | PN.PCM_ITS ---
(1) Skin ulcer of abdominal wall with fat layer exposed Status: Acute Code(s): L98.492 - Non-pressure chronic ulcer of skin of other sites with fat layer exposed Comment: left abdominal fold (2) Non-healing surgical wound of left groin Status: Acute Qualifiers: Code(s): T81.89XA - Other complications of procedures, not elsewhere classified, initial encounter (3) Diabetic neuropathy Status: Acute Code(s): E11.40 - Type 2 diabetes mellitus with diabetic neuropathy, unspecified (4) History of necrotising fasciitis Status: Acute Code(s): Z87.39 - Personal history of other diseases of the musculoskeletal system and connective tissue (5) Lymphedema of both lower extremities Status: Acute Code(s): I89.0 - Lymphedema, not elsewhere classified (6) Morbid obesity Status: Acute Code(s): E66.01 - Morbid (severe) obesity due to excess calories (7) Type 2 diabetes mellitus Status: Acute Qualifiers: Code(s): E11.9 - Type 2 diabetes mellitus without complications Type of Wound Date of Service: 05/29/18 Chief Complaint: Nonhealing wound status post surgical excision of necrotizing fasciitis left groin History of Wound: 46-year-old white male who presents to the wound healing [facility] today with complaint of left groin ulceration status post surgical excision of necrotizing fasciitis. He is a past medical history which is significant for that of type 2 diabetes mellitus, gout, diabetic neuropathy, schizophrenia, bilateral lymphedema, and schizophrenia. The patient states that what initially started as a pimple in his left groin progressed to necrotizing fasciitis and he had to have this surgically debrided in April 2017. He was admitted to [facility] for rehabilitation for 2 weeks and then [facility] for 6 weeks afterwards. He states that the groin ulcer which extends to his left lower abdomen has been slowly improving and he has been doing daily Aquacel AG dressings with an ABD for the drainage. He does state that he has had 3 wound vacs in the past which were unable to be utilized due to the location of his wound. He denies any foul- smelling discharge or systemic signs of infection at this time. The patient otherwise denies any fever, chills, nausea, vomiting, shortness of breath, chest pain or pressure, palpitations, orthopnea, syncope or presyncopal episodes. Progress of Wound: Wounds are stable at this time, wound beds are moist and cl gloria and without signs of gross infection at this time, still having delayed wound healing. Today will be the first application of new shield to the left groin wound. There is a bridge of skin that has epithelialized and now made into 2 separate wounds wound 1 left groin and wound to left lower abdominal fold. Patient continues to increase his oral protein supplementation with whey protein. Continues to have scant amount of serosanguineous drainage from left groin wound. The patient otherwise denies any fever, chills, nausea, vomiting, shortness of breath, chest pain or pressure, palpitations, orthopnea, lower extremity edema, syncope or presyncopal episodes. - Physical Exam Vital Signs Temp Pulse Resp BP 97.0 F L 85 18 141/88 H 05/29/18 15:50 05/29/18 15:50 05/29/18 15:50 05/29/18 15:50 General: Alert, Oriented x3, Cooperative, No apparent distress HEENT: Atraumatic Oral: Moist Mucosa Lungs: Clear to auscultation, Normal air movement Cardiovascular: Regular rate Abdomen: Soft, Non Tender, Obese Skin: Ulcer/ Wound - Wounds to the left groin and left abdominal fold with adherent slough, no signs of infection at this time, no redness, odor, or pu rulent drainage noted. Musculoskeletal: No Tenderness to Palpation of Joints or Extremities, No Muscle Wasting Neurological: Neuro grossly intact Psych/Mental Status: Normal Affect, Appropriate, Alert and oriented to time, place, person, mood and affect Debridement Note Post-Debridement Measurements/Treatment WC - Nurse 2 - General Ulcer CM Notes Start: 05/29/18 15:50 Freq: Status: Active Protocol: Activity Type Activity Date Activity User E-Sign Co-Sign Detail Recorded Client Recorded Date Recorded By Document 05/29/18 16:28 DV [id number] 05/29/18 16:36 DV 05/29/18 16:28 Wound Center Nurse 2 #2 Left Abdominal Fold -Time 16:29 -Correct Patient Yes -Correct Side, Site, Position Yes -Correct Procedure Yes -Procedure Performed Yes -Type of Procedure Debridement -Clinical Debridement Subcutaneous -Post Debridement Size (cm) - Length 0.6 -Post Debridement Size (cm) - Width 2.9 -Post Debridement Size (cm) - Depth 0.1 -Total Square Cm 1.74 -Wound/Ulcer Outcome Not Healed -Ulcer Cleansing Rinsed/ Irrigated with Saline -Foul Odor after Cleansing No -Bioengineered Tissue No -Bleeding Controlled with Pressure -Offloading No -Treatment Response Procedure Tolerated Well #1- LEFT GROIN- POST OP -Time 16:30 -Correct Patient Yes -Correct Side, Site, Position Yes -Correct Procedure Yes -Procedure Performed Yes -Type of Procedure Debridement -Clinical Debridement Subcutaneous -Post Debridement Size (cm) - Length 3.6 -Post Debridement Size (cm) - Width 14.1 -Post Debridement Size (cm) - Depth 0.1 -Total Square Cm 50.76 -Wound/Ulcer Outcome Not Healed -Ulcer Cleansing Rinsed/ Irrigated with Saline -Foul Odor after Cleansing No -Bioengineered Tissue Yes -Type of bioengineered Tissue NU-SHIELD -Expiration Date 05/03/23 -Product Lot Number [id number] -Percent Used 100 -Bleeding Controlled with Pressure -Offloading No -Treatment Response Procedure Tolerated Well Pain Scale: 0-10 Numeric Is Patient Pain Free? Yes Wound debrided: Left abdominal fold ulcer Laterality: Left Type of Debridement: Excisional debridement Anesthesia Used: 5% Lidocaine Gel Depth: in the subcutaneous layer Percentage of wound debrided: 100 Instrument Used: 5mm curette Tissue Removed: Slough and devitalized tissue Severity: Fat Layer Exposed Amount of bleeding with debridement: Mild Bleeding Controlled with: Pressure Patient tolerated procedure well - Additional Wound Wound debrided: Left groin wound Laterality: Left Type of Debridement: Excisional debridement Anesthesia Used: 5% Lidocaine Gel Depth: in the subcutaneous layer Percentage of wound debrided: 100 Instrument Used: 5mm curette Tissue Removed: Slough and devitalized tissue Severity: Fat Layer Exposed Amount of bleeding with debridement: Mild Bleeding Controlled with: Pressure Patient tolerated procedure: Patient tolerated procedure well Assessment/Plan Assessment: Nonhealing postsurgical wound left groin status post surgical excision of necrotizing fasciitis. Bilateral lower extremity edema. Morbid obesity. Type 2 diabetes mellitus Plan: The patient was seen and examined at the wound center today and was updated on the plan of care. A subcutaneous debridement was performed today. The patient tolerated the procedure well. The patients wound care will consist of: Nushield #1 was applied to left groin wound after subcutaneous debridement, it was then covered with the wound veil and secured with Steri-Strips, 100% of the product was used with 0% waste. Patient tolerated the procedure well. Aquacel extra change daily to remaining area not covered with product to left groin ulcer and free product sample of [place] was applied to the left abdominal fold ulcer which will remain on for a week, this was covered with wound veil and steri strips on for securement. Wound cultures were reviewed prior and negative. Baseline bloodwork reviewed which demonstrated a slightly low pre- albumin and patient was advised to use Glucerna or high-protein with meals. Repeat lab work WNL. Prealbumin WNL now. Previous records were requested for continuity of care. Patient educated on the importance of diet on wound healing and instructed to increase protein and vitamin C intake. Patient verbalized understanding. Plastic surgery consultation - no surgery indicated. Did discuss with patient the importance of blood sugar control in wound healing, recent A1C in 02/2018 was 6.1. Patient to follow-up in 1 week or sooner if needed. Patient is on a complex wound plan. This note was generated with [employer] dictation software. It may contain incorrect words, spelling, and punctuation that were not noted in checking the note before signing. Code Visit 111xxx-113xx: 90681 Jessica subq tissue 20 sq cm/< 150xxx-152xx: [id number] Skin sub graft trnk/arm/leg
[2018-06-05 15:51] VITALS: BP 149/79; PULSE 84; RESP 18; TEMP 36.7
--- NOTE | 2018-06-05 18:21 | PCM.WC.PN ---
(1) Skin ulcer of abdominal wall with fat layer exposed Status: Acute Code(s): L98.492 - Non-pressure chronic ulcer of skin of other sites with fat layer exposed Comment: left abdominal fold (2) Non-healing surgical wound of left groin Status: Acute Qualifiers: Code(s): T81.89XA - Other complications of procedures, not elsewhere classified, initial encounter (3) Diabetic neuropathy Status: Acute Code(s): E11.40 - Type 2 diabetes mellitus with diabetic neuropathy, unspecified (4) History of necrotising fasciitis Status: Acute Code(s): Z87.39 - Personal history of other diseases of the musculoskeletal system and connective tissue (5) Lymphedema of both lower extremities Status: Acute Code(s): I89.0 - Lymphedema, not elsewhere classified (6) Morbid obesity Status: Acute Code(s): E66.01 - Morbid (severe) obesity due to excess calories (7) Type 2 diabetes mellitus Status: Acute Qualifiers: Code(s): E11.9 - Type 2 diabetes mellitus without complications Type of Wound Date of Service: 06/05/18 Chief Complaint: Nonhealing wound status post surgical excision of necrotizing fasciitis left groin History of Wound: 46-year-old white male who presents to the wound healing center today with complaint of left groin ulceration status post surgical excision of necrotizing fasciitis. He is a past medical history which is significant for that of type 2 diabetes mellitus, gout, diabetic neuropathy, schizophrenia, bilateral lymphedema, and schizophrenia. The patient states that what initially started as a pimple in his left groin progressed to necrotizing fasciitis and he had to have this surgically debrided in April 2017. He was admitted to [facility] for 2 weeks and then [facility] for 6 weeks afterwards. He states that the groin ulcer which extends to his left lower abdomen has been slowly improving and he has been doing daily Aquacel AG dressings with an ABD for the drainage. He does state that he has had 3 wound vacs in the past which were unable to be utilized due to the location of his wound. He denies any foul-smelling discharge or systemic signs of infection at this time. The patient otherwise denies any fever, chills, nausea, vomiting, shortness of breath, chest pain or pressure, palpitations, orthopnea, syncope or presyncopal episodes. Progress of Wound: Wounds are stable at this time, wound beds are moist and clean and without signs of gross infection at this time, still having delayed wound healing. Patient did keep on new shield and [employer] application the entire time. There is a bridge of skin that has epithelialized and now made into 2 separate wounds wound 1 left groin and wound to left lower abdominal fold. Patient continues to increase his oral protein supplementation with whey protein. Continues to have scant amount of serosanguineous drainage from left groin wound. The patient otherwise denies any fever, chills, nausea, vomiting, shortness of breath, chest pain or pressure, palpitations, orthopnea, lower extremity edema, syncope or presyncopal episodes. - Physical Exam Vital Signs Temp Pulse Resp BP 98.1 F 84 18 149/79 H 06/05/18 15:51 06/05/18 15:51 06/05/18 15:51 06/05/18 15:51 General: Alert, Oriented x3, Cooperative, No apparent distress HEENT: Atraumatic Oral: Moist Mucosa Lungs: Clear to auscultation Cardiovascular: Regular rate Abdomen: Soft, Non Tender, Obese Extremities: No clubbing, No cyanosis, Edema - Generalized bilateral lower extremity edema Skin: Ulcer/ Wound - Ulceration to the left groin and left abdominal fold with adherent slough, no signs of infection at this time Musculoskeletal: No Tenderness to Palpation of Joints or Extremities, No Muscle Wasting Neurological: Neuro grossly intact Psych/Mental Status: Normal Affect, Appropriate, Alert and oriented to time, place, person, mood and affect Debridement Note Post-Debridement Measurements/Treatment WC - Nurse 2 - General Ulcer CM Notes Start: 05/29/18 15:50 Freq: Status: Active Protocol: Activity Type Activity Date Activity User E-Sign Co-Sign Detail Recorded Client Recorded Date Recorded By Document 05/29/18 16:28 DV [id number] 05/29/18 16:36 DV Document 06/05/18 17:10 DV [id number] 06/05/18 17:25 DV 05/29/18 06/05/18 16:28 17:10 Wound Center Nurse 2 #2 Left Abdominal Fold -Time 16:29 17:10 -Correct Patient Yes Yes -Correct Side, Site, Position Yes Yes -Correct Procedure Yes Yes -Procedure Performed Yes Yes -Type of Procedure Debridement Debridement -Clinical Debridement Subcutaneous Subcutaneous -Post Debridement Size (cm) - Length 0.6 0.9 -Post Debridement Size (cm) - Width 2.9 3.5 -Post Debridement Size (cm) - Depth 0.1 0.1 -Total Square Cm 1.74 3.15 -Wound/Ulcer Outcome Not Healed Not Healed -Ulcer Cleansing Rinsed/ Rinsed/ Irrigated with Irrigated with Saline Saline -Foul Odor after Cleansing No No -Bioengineered Tissue No -Bleeding Controlled with Pressure Pressure -Offloading No No -Treatment Response Procedure Procedure Tolerated Well Tolerated Well #1- LEFT GROIN- POST OP -Time 16:30 17:11 -Correct Patient Yes Yes -Correct Side, Site, Position Yes Yes -Correct Procedure Yes Yes -Procedure Performed Yes Yes -Type of Procedure Debridement Debridement -Clinical Debridement Subcutaneous Subcutaneous -Post Debridement Size (cm) - Length 3.6 3.4 -Post Debridement Size (cm) - Width 14.1 14.9 -Post Debridement Size (cm) - Depth 0.1 0.1 -Total Square Cm 50.76 50.66 -Wound/Ulcer Outcome Not Healed Not Healed -Ulcer Cleansing Rinsed/ Rinsed/ Irrigated with Irrigated with Saline Saline -Foul Odor after Cleansing No No -Bioengineered Tissue Yes No -Type of bioengineered Tissue NU-SHIELD -Expiration Date 05/03/23 02/27/23 -Product Lot Number [id number] -Percent Used 100 100 -Saline Lot Number [id number] -Topical Lidocaine (%) 4 -Bleeding Controlled with Pressure Pressure -Offloading No -Treatment Response Procedure Procedure Tolerated Well Tolerated Well Pain Scale: 0-10 Numeric Is Patient Pain Free? Yes Yes Wound debrided: Left abdominal fold ulcer Laterality: Left Type of Debridement: Excisional debridement Anesthesia Used: 5% Lidocaine Gel Depth: in the subcutaneous layer Percentage of wound debrided: 100 Instrument Used: 3mm curette Tissue Removed: Slough and devitalized tissue Severity: Fat Layer Exposed Amount of bleeding with debridement: Mild Bleeding Controlled with: Pressure Patient tolerated procedure well - Additional Wound Wound debrided: Left groin ulcer Type of Debridement: Excisional debridement Anesthesia Used: 5% Lidocaine Gel Depth: in the subcutaneous layer Percentage of wound debrided: 100 Instrument Used: 5mm curette Tissue Removed: Slough and devitalized tissue Severity: Fat Layer Exposed Amount of bleeding with debridement: Mild Bleeding Controlled with: Pressure Patient tolerated procedure: Patient tolerated procedure well Assessment/Plan Assessment: Nonhealing postsurgical wound left groin status post surgical excision of necrotizing fasciitis. Bilateral lower extremity edema. Morbid obesity. Type 2 diabetes mellitus Plan: The patient was seen and examined at the wound center today and was updated on the plan of care. A subcutaneous debridement was performed today. The patient tolerated the procedure well. The patients wound care will consist of: Nushield #2 was applied to left groin wound after subcutaneous debridement, it was then covered with the wound veil and secured with Steri-Strips, 100% of the product was used with 0% waste. Patient tolerated the procedure well. Aquacel extra change daily to remaining area not covered with product to left groin ulcer and free product sample of [employer] was applied to the left abdominal fold ulcer which will remain on for a week, this was covered with wound veil and steri strips on for securement. Wound cultures were reviewed prior and negative. Baseline bloodwork reviewed which demonstrated a slightly low pre-albumin and patient was advised to use Glucerna or high-protein with meals. Repeat lab work WNL. Prealbumin WNL now. Previous records were requested for continuity of care. Patient educated on the importance of diet on wound healing and instructed to increase protein and vitamin C intake. Patient verbalized understanding. Plastic surgery consultation - no surgery indicated. Did discuss with patient the importance of blood sugar control in wound healing, recent A1C in 02/2018 was 6.1. Patient to follow-up in 1 week or sooner if needed. Patient is on a complex wound plan. This note was generated with [employer] dictation software. It may contain incorrect words, spelling, and punctuation that were not noted in checking the note before signing. Code Visit 111xxx-113xx: [id number] Jessica subq tissue 20 sq cm/< 150xxx-152xx: [id number] Skin sub graft trnk/arm/leg
--- NOTE | 2018-06-11 09:25 | PN.PCM_ITS ---
(1) Skin ulcer of abdominal wall with fat layer exposed Status: Acute Code(s): L98.492 - Non-pressure chronic ulcer of skin of other sites with fat layer exposed Comment: left abdominal fold (2) Non-healing surgical wound of left groin Status: Acute Qualifiers: Code(s): T81.89XA - Other complications of procedures, not elsewhere classified, initial encounter (3) Diabetic neuropathy Status: Acute Code(s): E11.40 - Type 2 diabetes mellitus with diabetic neuropathy, unspecified (4) History of necrotising fasciitis Status: Acute Code(s): Z87.39 - Personal history of other diseases of the musculoskeletal system and connective tissue (5) Lymphedema of both lower extremities Status: Acute Code(s): I89.0 - Lymphedema, not elsewhere classified (6) Morbid obesity Status: Acute Code(s): E66.01 - Morbid (severe) obesity due to excess calories (7) Type 2 diabetes mellitus Status: Acute Qualifiers: Code(s): E11.9 - Type 2 diabetes mellitus without complications Type of Wound Date of Service: 06/05/18 Chief Complaint: Nonhealing wound status post surgical excision of necrotizing fasciitis left groin History of Wound: 46-year-old white male who presents to the wound healing [facility] today with complaint of left groin ulceration status post surgical excision of necrotizing fasciitis. He is a past medical history which is significant for that of type 2 diabetes mellitus, gout, diabetic neuropathy, schizophrenia, bilateral lymphedema, and schizophrenia. The patient states that what initially started as a pimple in his left groin progressed to necrotizing fasciitis and he had to have this surgically debrided in April 2017. He was admitted to [facility] weeks and then [facility] for [facility] weeks afterwards. He states that the groin ulcer which extends to his left lower abdomen has been slowly improving and he has been doing daily Aquacel AG dressings with an ABD for the drainage. He does state that he has had 3 wound vacs in the past which were unable to be utilized due to the location of his wound. He denies any foul- smelling discharge or systemic signs of infection at this time. The patient otherwise denies any fever, chills, nausea, vomiting, shortness of breath, chest pain or pressure, palpitations, orthopnea, syncope or presyncopal episodes. Progress of Wound: Wounds are stable at this time, wound beds are moist and cl gloria and without signs of gross infection at this time, still having delayed wound healing. Patient did keep on new shield and [place] application the entire time. There is a bridge of skin that has epithelialized and now made into 2 separate wounds wound 1 left groin and wound to left lower abdominal fold. Patient continues to increase his oral protein supplementation with whey protein. Continues to have scant amount of serosanguineous drainage from left groin wound. The patient otherwise denies any fever, chills, nausea, vomiting, shortness of breath, chest pain or pressure, palpitations, orthopnea, lower extremity edema, syncope or presyncopal episodes. - Physical Exam Vital Signs Temp Pulse Resp BP 98.1 F 84 18 149/79 H 06/05/18 15:51 06/05/18 15:51 06/05/18 15:51 06/05/18 15:51 General: Alert, Oriented x3, Cooperative, No apparent distress HEENT: Atraumatic Oral: Moist Mucosa Lungs: Clear to auscultation Cardiovascular: Regular rate Abdomen: Soft, Non Tender, Obese Extremities: No clubbing, No cyanosis, Edema - Generalized bilateral lower extremity edema Skin: Ulcer/ Wound - Ulceration to the left groin and left abdominal fold with adherent slough, no signs of infection at this time Musculoskeletal: No Tenderness to Palpation of Joints or Extremities, No Muscle Wasting Neurological: Neuro grossly intact Psych/Mental Status: Normal Affect, Appropriate, Alert and oriented to time, place, person, mood and affect Debridement Note Post-Debridement Measurements/Treatment WC - Nurse 2 - General Ulcer CM Notes Start: 05/29/18 15:50 Freq: Status: Active Protocol: Activity Type Activity Date Activity User E-Sign Co-Sign Detail Recorded Client Recorded Date Recorded By Document 05/29/18 16:28 DV [id number] 05/29/18 16:36 DV Document 06/05/18 17:10 DV [id number] 06/05/18 17:25 DV 05/29/18 06/05/18 16:28 17:10 Wound Center Nurse 2 #2 Left Abdominal Fold -Time 16:29 17:10 -Correct Patient Yes Yes -Correct Side, Site, Position Yes Yes -Correct Procedure Yes Yes -Procedure Performed Yes Yes -Type of Procedure Debridement Debridement -Clinical Debridement Subcutaneous Subcutaneous -Post Debridement Size (cm) - Length 0.6 0.9 -Post Debridement Size (cm) - Width 2.9 3.5 -Post Debridement Size (cm) - Depth 0.1 0.1 -Total Square Cm 1.74 3.15 -Wound/Ulcer Outcome Not Healed Not Healed -Ulcer Cleansing Rinsed/ Rinsed/ Irrigated with Irrigated with Saline Saline -Foul Odor after Cleansing No No -Bioengineered Tissue No -Bleeding Controlled with Pressure Pressure -Offloading No No -Treatment Response Procedure Procedure Tolerated Well Tolerated Well #1- LEFT GROIN- POST OP -Time 16:30 17:11 -Correct Patient Yes Yes -Correct Side, Site, Position Yes Yes -Correct Procedure Yes Yes -Procedure Performed Yes Yes -Type of Procedure Debridement Debridement -Clinical Debridement Subcutaneous Subcutaneous -Post Debridement Size (cm) - Length 3.6 3.4 -Post Debridement Size (cm) - Width 14.1 14.9 -Post Debridement Size (cm) - Depth 0.1 0.1 -Total Square Cm 50.76 50.66 -Wound/Ulcer Outcome Not Healed Not Healed -Ulcer Cleansing Rinsed/ Rinsed/ Irrigated with Irrigated with Saline Saline -Foul Odor after Cleansing No No -Bioengineered Tissue Yes No -Type of bioengineered Tissue NU-SHIELD -Expiration Date 05/03/23 02/27/23 -Product Lot Number [id number] -Percent Used 100 100 -Saline Lot Number [id number] -Topical Lidocaine (%) 4 -Bleeding Controlled with Pressure Pressure -Offloading No -Treatment Response Procedure Procedure Tolerated Well Tolerated Well Pain Scale: 0-10 Numeric Is Patient Pain Free? Yes Yes Wound debrided: Left abdominal fold ulcer Laterality: Left Type of Debridement: Excisional debridement Anesthesia Used: 5% Lidocaine Gel Depth: in the subcutaneous layer Percentage of wound debrided: 100 Instrument Used: 3mm curette Tissue Removed: Slough and devitalized tissue Severity: Fat Layer Exposed Amount of bleeding with debridement: Mild Bleeding Controlled with: Pressure Patient tolerated procedure well - Additional Wound Wound debrided: Left groin ulcer Type of Debridement: Excisional debridement Anesthesia Used: 5% Lidocaine Gel Depth: in the subcutaneous layer Percentage of wound debrided: 100 Instrument Used: 5mm curette Tissue Removed: Slough and devitalized tissue Severity: Fat Layer Exposed Amount of bleeding with debridement: Mild Bleeding Controlled with: Pressure Patient tolerated procedure: Patient tolerated procedure well Assessment/Plan Assessment: Nonhealing postsurgical wound left groin status post surgical excision of necrotizing fasciitis. Bilateral lower extremity edema. Morbid obesity. Type 2 diabetes mellitus Plan: The patient was seen and examined at the wound center today and was updated on the plan of care. A subcutaneous debridement was performed today. The patient tolerated the procedure well. The patients wound care will consist of: Nushield #2 was applied to left groin wound after subcutaneous debridement, it was then covered with the wound veil and secured with Steri-Strips, 100% of the product was used with 0% waste. Patient tolerated the procedure well. Aquacel extra change daily to remaining area not covered with product to left groin ulcer and free product sample of [place] was applied to the left abdominal fold ulcer which will remain on for a week, this was covered with wound veil and steri strips on for securement. Wound cultures were reviewed prior and negative. Baseline bloodwork reviewed which demonstrated a slightly low pre-alb umin and patient was advised to use Glucerna or high-protein with meals. Repeat lab work WNL. Prealbumin WNL now. Previous records were requested for continuity of care. Patient educated on the importance of diet on wound healing and instructed to increase protein and vitamin C intake. Patient verbalized understanding. Plastic surgery consultation - no surgery indicated. Did discuss with patient the importance of blood sugar control in wound healing, recent A1C in 02/2018 was 6.1. Patient to follow-up in 1 week or sooner if needed. Patient is on a complex wound plan. This note was generated with [email or web address] dictation software. It may contain incorrect words, spelling, and punctuation that were not noted in checking the note before signing. Code Visit 111xxx-113xx: 25441 Jessica subq tissue 20 sq cm/< 150xxx-152xx: 13110 Skin sub graft trnk/arm/leg
[2018-06-12 15:30] VITALS: BP 136/75; PULSE 76; RESP 16; TEMP 36.1
--- NOTE | 2018-06-12 15:40 | WC ---
nushield left intact to lt abdominal fold.
--- NOTE | 2018-06-12 17:03 | PCM.WC.PN ---
(1) Skin ulcer of abdominal wall with fat layer exposed Status: Acute Current Visit: Yes Code(s): L98.492 - Non-pressure chronic ulcer of skin of other sites with fat layer exposed Comment: left abdominal fold (2) Non-healing surgical wound of left groin Status: Acute Current Visit: Yes Qualifiers: Code(s): T81.89XA - Other complications of procedures, not elsewhere classified, initial encounter (3) Diabetic neuropathy Status: Acute Current Visit: Yes Code(s): E11.40 - Type 2 diabetes mellitus with diabetic neuropathy, unspecified (4) History of necrotising fasciitis Status: Acute Current Visit: Yes Code(s): Z87.39 - Personal history of other diseases of the musculoskeletal system and connective tissue (5) Lymphedema of both lower extremities Status: Acute Current Visit: Yes Code(s): I89.0 - Lymphedema, not elsewhere classified (6) Morbid obesity Status: Acute Current Visit: Yes Code(s): E66.01 - Morbid (severe) obesity due to excess calories (7) Type 2 diabetes mellitus Status: Acute Current Visit: Yes Qualifiers: Code(s): E11.9 - Type 2 diabetes mellitus without complications Type of Wound Date of Service: 06/12/18 Chief Complaint: Nonhealing wound status post surgical excision of necrotizing fasciitis left groin History of Wound: 46-year-old white male who presents to the wound healing center today with complaint of left groin ulceration status post surgical excision of necrotizing fasciitis. He is a past medical history which is significant for that of type 2 diabetes mellitus, gout, diabetic neuropathy, schizophrenia, bilateral lymphedema, and schizophrenia. The patient states that what initially started as a pimple in his left groin progressed to necrotizing fasciitis and he had to have this surgically debrided in April 2017. He was admitted to [facility] for 2 weeks and then [facility] for [facility] weeks afterwards. He states that the groin ulcer which extends to his left lower abdomen has been slowly improving and he has been doing daily Aquacel AG dressings with an ABD for the drainage. He does state that he has had 3 wound vacs in the past which were unable to be utilized due to the location of his wound. He denies any foul-smelling discharge or systemic signs of infection at this time. The patient otherwise denies any fever, chills, nausea, vomiting, shortness of breath, chest pain or pressure, palpitations, orthopnea, syncope or presyncopal episodes. Progress of Wound: Wounds are stable at this time, wound beds are moist and clean and without signs of gross infection at this time, still having delayed wound healing. Patient did keep on new shield and [place] application for four days. There is a bridge of skin that has epithelialized and now made into 2 separate wounds wound 1 left groin and wound to left lower abdominal fold. Patient continues to increase his oral protein supplementation with whey protein. Continues to have scant amount of serosanguineous drainage from left groin wound. The patient otherwise denies any fever, chills, nausea, vomiting, shortness of breath, chest pain or pressure, palpitations, orthopnea, lower extremity edema, syncope or presyncopal episodes. - Physical Exam Vital Signs Temp Pulse Resp BP 97 F L 76 16 136/75 H 06/12/18 15:30 06/12/18 15:30 06/12/18 15:30 06/12/18 15:30 General: Alert, Oriented x3, Cooperative, No apparent distress HEENT: Atraumatic Oral: Moist Mucosa Neck: Supple Lungs: Clear to auscultation Cardiovascular: Regular rate Abdomen: Soft, Non Tender, Obese Skin: Ulcer/ Wound - Nonhealing ulcer to the left groin and left abdominal skin fold with adherent slough, moist wound bed, no signs of infection at this time, no purulent drainage or discharge noted Wound Measurements and Assessment WC - Nurse 1 - General Ulcer Measurement Start: 05/29/18 15:50 Freq: Status: Active Protocol: Activity Type Activity Date Activity User E-Sign Co-Sign Detail Recorded Client Recorded Date Recorded By Document 06/12/18 15:30 ID [id number] 06/12/18 15:39 ID 06/12/18 15:30 Wound Center Nurse 1 [Ulcer Assessment] #2 Left Abdominal Fold -Combined with other wound No -Current Size (cm) - Length 0.1 -Current Size (cm) - Width 0.1 -Current Size (cm) - Depth 0.1 -Total Square Cm 0.01 -Photo Taken No #1- LEFT GROIN- POST OP -Combined with other wound No -Current Size (cm) - Length 3 -Current Size (cm) - Width 15 -Current Size (cm) - Depth 0.3 -Total Square Cm 45 -Photo Taken No -Epithelialization Small 1-33% -Tunneling No -Undermining/Tunneling No -Circular Undermining No -Exudate Amt Medium -Exudate Type Serosanguineous -Wound Margin Flat & Intact -Granulation Amt Large (67-100%) -Granulation [place] -Slough/Fibrin No -Necrosis Amt None Present (0 %) -Texture (Inessa-wound Skin Appearance) Scarring -Moisture (Inessa-wound Skin Appearance Maceration ) -Color (Inessa-wound Skin Appearance) Palor -Temperature (Inessa-wound Skin No Abnormality Appearance) (Pt Warm) -Tenderness on Palpation (Inessa-wound No Skin Appearance) -Ulcer Cleansing Rinsed/ Irrigated with Saline -Foul Odor after Cleansing No -Anesthetic Used 4% Lidocaine Solution WC - Nurse 2 - General Ulcer CM Notes Start: 05/29/18 15:50 Freq: Status: Active Protocol: Activity Type Activity Date Activity User E-Sign Co-Sign Detail Recorded Client Recorded Date Recorded By Document 06/12/18 16:25 AN [id number] 06/12/18 16:56 AN 06/12/18 16:25 Wound Center Nurse 2 [Procedure/Treatment] #2 Left Abdominal Fold -Time 16:25 -Correct Patient Yes -Correct Side, Site, Position Yes -Correct Procedure Yes -Procedure Performed Yes -Type of Procedure Debridement -Clinical Debridement Subcutaneous -Post Debridement Size (cm) - Length 0.5 -Post Debridement Size (cm) - Width 2.7 -Post Debridement Size (cm) - Depth 0.1 -Total Square Cm 1.35 -Wound/Ulcer Outcome Not Healed -Ulcer Cleansing Rinsed/ Irrigated with Saline -Foul Odor after Cleansing No -Bioengineered Tissue No -Bleeding Controlled with Pressure -Offloading No -Treatment Response Procedure Tolerated Well #1- LEFT GROIN- POST OP -Time 16:26 -Correct Patient Yes -Correct Side, Site, Position Yes -Correct Procedure Yes -Procedure Performed Yes -Type of Procedure Debridement -Clinical Debridement Subcutaneous -Post Debridement Size (cm) - Length 3.7 -Post Debridement Size (cm) - Width 14.5 -Post Debridement Size (cm) - Depth 0.1 -Total Square Cm 53.65 -Wound/Ulcer Outcome Not Healed -Ulcer Cleansing Rinsed/ Irrigated with Saline -Foul Odor after Cleansing No -Bioengineered Tissue Yes -Type of bioengineered Tissue NU-SHIELD -Expiration Date 05/06/23 -Product Lot Number [id number] -Percent Used 100 -Saline Lot Number [id number] -Topical Lidocaine (%) 5 -Bleeding Controlled with Pressure -Offloading No -Treatment Response Procedure Tolerated Well [See Physician Procedure note for Specifics] Pain Scale: 0-10 Numeric [Pain] -Is Patient Pain Free? Yes Neurological: Neuro grossly intact Psych/Mental Status: Normal Affect, Appropriate, Alert and oriented to time, place, person, mood and affect Debridement Note Post-Debridement Measurements/Treatment WC - Nurse 2 - General Ulcer CM Notes Start: 05/29/18 15:50 Freq: Status: Active Protocol: Activity Type Activity Date Activity User E-Sign Co-Sign Detail Recorded Client Recorded Date Recorded By Document 05/29/18 16:28 DV [id number] 05/29/18 16:36 DV Document 06/05/18 17:10 DV [id number] 06/05/18 17:25 DV Document 06/12/18 16:25 AN [id number] 06/12/18 16:56 AN 05/29/18 06/05/18 06/12/18 16:28 17:10 16:25 Wound Center Nurse 2 #2 Left Abdominal Fold -Time 16:29 17:10 16:25 -Correct Patient Yes Yes Yes -Correct Side, Site, Position Yes Yes Yes -Correct Procedure Yes Yes Yes -Procedure Performed Yes Yes Yes -Type of Procedure Debridement Debridement Debridement -Clinical Debridement Subcutaneous Subcutaneous Subcutaneous -Post Debridement Size (cm) - Length 0.6 0.9 0.5 -Post Debridement Size (cm) - Width 2.9 3.5 2.7 -Post Debridement Size (cm) - Depth 0.1 0.1 0.1 -Total Square Cm 1.74 3.15 1.35 -Wound/Ulcer Outcome Not Healed Not Healed Not Healed -Ulcer Cleansing Rinsed/ Rinsed/ Rinsed/ Irrigated with Irrigated with Irrigated with Saline Saline Saline -Foul Odor after Cleansing No No No -Bioengineered Tissue No No -Bleeding Controlled with Pressure Pressure Pressure -Offloading No No No -Treatment Response Procedure Procedure Procedure Tolerated Well Tolerated Well Tolerated Well #1- LEFT GROIN- POST OP -Time 16:30 17:11 16:26 -Correct Patient Yes Yes Yes -Correct Side, Site, Position Yes Yes Yes -Correct Procedure Yes Yes Yes -Procedure Performed Yes Yes Yes -Type of Procedure Debridement Debridement Debridement -Clinical Debridement Subcutaneous Subcutaneous Subcutaneous -Post Debridement Size (cm) - Length 3.6 3.4 3.7 -Post Debridement Size (cm) - Width 14.1 14.9 14.5 -Post Debridement Size (cm) - Depth 0.1 0.1 0.1 -Total Square Cm 50.76 50.66 53.65 -Wound/Ulcer Outcome Not Healed Not Healed Not Healed -Ulcer Cleansing Rinsed/ Rinsed/ Rinsed/ Irrigated with Irrigated with Irrigated with Saline Saline Saline -Foul Odor after Cleansing No No No -Bioengineered Tissue Yes No Yes -Type of bioengineered Tissue NU-SHIELD NU-SHIELD -Expiration Date 05/03/23 02/27/23 05/06/23 -Product Lot Number [id number] -Percent Used 100 100 100 -Saline Lot Number [id number] -Topical Lidocaine (%) 4 5 -Bleeding Controlled with Pressure Pressure Pressure -Offloading No No -Treatment Response Procedure Procedure Procedure Tolerated Well Tolerated Well Tolerated Well Pain Scale: 0-10 Numeric Is Patient Pain Free? Yes Yes Yes Wound debrided: Left groin ulcer nonhealing Laterality: Left Type of Debridement: Excisional debridement Anesthesia Used: 5% Lidocaine Gel Depth: in the subcutaneous layer Percentage of wound debrided: 100 Instrument Used: 5mm curette Tissue Removed: Slough and devitalized tissue Severity: Fat Layer Exposed Amount of bleeding with debridement: Mild Bleeding Controlled with: Pressure Patient tolerated procedure well - Additional Wound Wound debrided: Left abdominal fold ulcer nonhealing Laterality: Left Type of Debridement: Excisional debridement Anesthesia Used: 5% Lidocaine Gel Depth: in the subcutaneous layer Percentage of wound debrided: 100 Instrument Used: 5mm curette Tissue Removed: Slough and devitalized tissue Severity: Fat Layer Exposed Amount of bleeding with debridement: Mild Bleeding Controlled with: Pressure Patient tolerated procedure: Patient tolerated procedure well Assessment/Plan Active Problems History of necrotising fasciitis (Acute) Lymphedema of both lower extremities (Acute) Type 2 diabetes mellitus (Acute) Diabetic neuropathy (Acute) Morbid obesity (Acute) Non-healing surgical wound of left groin (Acute) Skin ulcer of abdominal wall with fat layer exposed (Acute) left abdominal fold Assessment: Nonhealing postsurgical wound left groin status post surgical excision of necrotizing fasciitis. Bilateral lower extremity edema. Morbid obesity. Type 2 diabetes mellitus Plan: The patient was seen and examined at the wound center today and was updated on the plan of care. A subcutaneous debridement was performed today. The patient tolerated the procedure well. The patients wound care will consist of: Nushield #3 was applied to left groin wound after subcutaneous debridement, it was then covered with the wound veil and secured with Steri-Strips, 100% of the product was used with 0% waste. Patient tolerated the procedure well. Aquacel extra change daily to remaining area not covered with product to left groin ulcer and free product sample of [place] was applied to the left abdominal fold ulcer which will remain on for a week, this was covered with wound veil and steri strips on for securement. Wound cultures were reviewed prior and negative. Baseline bloodwork reviewed which demonstrated a slightly low pre-albumin and patient was advised to use Glucerna or high-protein with meals. Repeat lab work WNL. Prealbumin WNL now. Previous records were requested for continuity of care. Patient educated on the importance of diet on wound healing and instructed to increase protein and vitamin C intake. Patient verbalized understanding. Plastic surgery consultation - no surgery indicated. Did discuss with patient the importance of blood sugar control in wound healing, recent A1C in 02/2018 was 6.1. Patient to follow-up in 1 week or sooner if needed. Patient is on a complex wound plan. This note was generated with [employer] dictation software. It may contain incorrect words, spelling, and punctuation that were not noted in checking the note before signing. Code Visit 111xxx-113xx: 33741 Jessica subq tissue 20 sq cm/< 150xxx-152xx: 39133 Skin sub graft trnk/arm/leg
--- NOTE | 2018-06-13 17:06 | PN.PCM_ITS ---
(1) Skin ulcer of abdominal wall with fat layer exposed Status: Acute Current Visit: Yes Code(s): L98.492 - Non-pressure chronic ulcer of skin of other sites with fat layer exposed Comment: left abdominal fold (2) Non-healing surgical wound of left groin Status: Acute Current Visit: Yes Qualifiers: Code(s): T81.89XA - Other complications of procedures, not elsewhere classified, initial encounter (3) Diabetic neuropathy Status: Acute Current Visit: Yes Code(s): E11.40 - Type 2 diabetes mellitus with diabetic neuropathy, unspecified (4) History of necrotising fasciitis Status: Acute Current Visit: Yes Code(s): Z87.39 - Personal history of other diseases of the musculoskeletal system and connective tissue (5) Lymphedema of both lower extremities Status: Acute Current Visit: Yes Code(s): I89.0 - Lymphedema, not elsewhere classified (6) Morbid obesity Status: Acute Current Visit: Yes Code(s): E66.01 - Morbid (severe) obesity due to excess calories (7) Type 2 diabetes mellitus Status: Acute Current Visit: Yes Qualifiers: Code(s): E11.9 - Type 2 diabetes mellitus without complications Type of Wound Date of Service: 06/12/18 Chief Complaint: Nonhealing wound status post surgical excision of necrotizing fasciitis left groin History of Wound: 46-year-old white male who presents to the wound healing center today with complaint of left groin ulceration status post surgical excision of necrotizing fasciitis. He is a past medical history which is significant for that of type 2 diabetes mellitus, gout, diabetic neuropathy, schizophrenia, bilateral lymphedema, and schizophrenia. The patient states that what initially started as a pimple in his left groin progressed to necrotizing fasciitis and he had to have this surgically debrided in April 2017. [facility] and then [facility] for [facility] weeks afterwards. He states that the groin ulcer which extends to his left lower abdomen has been slowly improving and he has been doing daily Aquacel AG dressings with an ABD for the drainage. He does state that he has had 3 wound vacs in the past which were unable to be utilized due to the location of his wound. He denies any foul-smelling discharge or systemic signs of infection at this time. The patient otherwise denies any fever, chills, nausea, vomiting, shortness of breath, chest pain or pressure, palpitations, orthopnea, syncope or presyncopal episodes. Progress of Wound: Wounds are stable at this time, wound beds are moist and clean and without signs of gross infection at this time, still having delayed wo und healing. Patient did keep on new shield and Esperanza application for four days. There is a bridge of skin that has epithelialized and now made into 2 separate wounds wound 1 left groin and wound to left lower abdominal fold. Patient continues to increase his oral protein supplementation with whey protein. Continues to have scant amount of serosanguineous drainage from left groin wound. The patient otherwise denies any fever, chills, nausea, vomiting, shortness of breath, chest pain or pressure, palpitations, orthopnea, lower extremity edema, syncope or presyncopal episodes. - Physical Exam Vital Signs Temp Pulse Resp BP 97 F L 76 16 136/75 H 06/12/18 15:30 06/12/18 15:30 06/12/18 15:30 06/12/18 15:30 General: Alert, Oriented x3, Cooperative, No apparent distress HEENT: Atraumatic Oral: Moist Mucosa Neck: Supple Lungs: Clear to auscultation Cardiovascular: Regular rate Abdomen: Soft, Non Tender, Obese Skin: Ulcer/ Wound - Nonhealing ulcer to the left groin and left abdominal skin fold with adherent slough, moist wound bed, no signs of infection at this time, no purulent drainage or discharge noted Wound Measurements and Assessment WC - Nurse 1 - General Ulcer Measurement Start: 05/29/18 15:50 Freq: Status: Active Protocol: Activity Type Activity Date Activity User E-Sign Co-Sign Detail Recorded Client Recorded Date Recorded By Document 06/12/18 15:30 OK [id number] 06/12/18 15:39 OK 06/12/18 15:30 Wound Center Nurse 1 [Ulcer Assessment] #2 Left Abdominal Fold -Combined with other wound No -Current Size (cm) - Length 0.1 -Current Size (cm) - Width 0.1 -Current Size (cm) - Depth 0.1 -Total Square Cm 0.01 -Photo Taken No #1- LEFT GROIN- POST OP -Combined with other wound No -Current Size (cm) - Length 3 -Current Size (cm) - Width 15 -Current Size (cm) - Depth 0.3 -Total Square Cm 45 -Photo Taken No -Epithelialization Small 1-33% -Tunneling No -Undermining/Tunneling No -Circular Undermining No -Exudate Amt Medium -Exudate Type Serosanguineous -Wound Margin Flat & Intact -Granulation Amt Large (67-100%) -Granulation Quality Effie -Slough/Fibrin No -Necrosis Amt None Present (0 %) -Texture (Inessa-wound Skin Appearance) Scarring -Moisture (Inessa-wound Skin Appearance Maceration ) -Color (Inessa-wound Skin Appearance) Palor -Temperature (Inessa-wound Skin No Abnormality Appearance) (Pt Warm) -Tenderness on Palpation (Inessa-wound No Skin Appearance) -Ulcer Cleansing Rinsed/ Irrigated with Saline -Foul Odor after Cleansing No -Anesthetic Used 4% Lidocaine Solution WC - Nurse 2 - General Ulcer CM Notes Start: 05/29/18 15:50 Freq: Status: Active Protocol: Activity Type Activity Date Activity User E-Sign Co-Sign Detail Recorded Client Recorded Date Recorded By Document 06/12/18 16:25 AN [id number] 06/12/18 16:56 AN 06/12/18 16:25 Wound Center Nurse 2 [Procedure/Treatment] #2 Left Abdominal Fold -Time 16:25 -Correct Patient Yes -Correct Side, Site, Position Yes -Correct Procedure Yes -Procedure Performed Yes -Type of Procedure Debridement -Clinical Debridement Subcutaneous -Post Debridement Size (cm) - Length 0.5 -Post Debridement Size (cm) - Width 2.7 -Post Debridement Size (cm) - Depth 0.1 -Total Square Cm 1.35 -Wound/Ulcer Outcome Not Healed -Ulcer Cleansing Rinsed/ Irrigated with Saline -Foul Odor after Cleansing No -Bioengineered Tissue No -Bleeding Controlled with Pressure -Offloading No -Treatment Response Procedure Tolerated Well #1- LEFT GROIN- POST OP -Time 16:26 -Correct Patient Yes -Correct Side, Site, Position Yes -Correct Procedure Yes -Procedure Performed Yes -Type of Procedure Debridement -Clinical Debridement Subcutaneous -Post Debridement Size (cm) - Length 3.7 -Post Debridement Size (cm) - Width 14.5 -Post Debridement Size (cm) - Depth 0.1 -Total Square Cm 53.65 -Wound/Ulcer Outcome Not Healed -Ulcer Cleansing Rinsed/ Irrigated with Saline -Foul Odor after Cleansing No -Bioengineered Tissue Yes -Type of bioengineered Tissue NU-SHIELD -Expiration Date 05/06/23 -Product Lot Number [id number] -Percent Used 100 -Saline Lot Number [id number] -Topical Lidocaine (%) 5 -Bleeding Controlled with Pressure -Offloading No -Treatment Response Procedure Tolerated Well [See Physician Procedure note for Specifics] Pain Scale: 0-10 Numeric [Pain] -Is Patient Pain Free? Yes Neurological: Neuro grossly intact Psych/Mental Status: Normal Affect, Appropriate, Alert and oriented to time, place, person, mood and affect Debridement Note Post-Debridement Measurements/Treatment WC - Nurse 2 - General Ulcer CM Notes Start: 05/29/18 15:50 Freq: Status: Active Protocol: Activity Type Activity Date Activity User E-Sign Co-Sign Detail Recorded Client Recorded Date Recorded By Document 05/29/18 16:28 DV [id number] 05/29/18 16:36 DV Document 06/05/18 17:10 DV [id number] 06/05/18 17:25 DV Document 06/12/18 16:25 AN [id number] 06/12/18 16:56 AN 05/29/18 06/05/18 06/12/18 16:28 17:10 16:25 Wound Center Nurse 2 #2 Left Abdominal Fold -Time 16:29 17:10 16:25 -Correct Patient Yes Yes Yes -Correct Side, Site, Position Yes Yes Yes -Correct Procedure Yes Yes Yes -Procedure Performed Yes Yes Yes -Type of Procedure Debridement Debridement Debridement -Clinical Debridement Subcutaneous Subcutaneous Subcutaneous -Post Debridement Size (cm) - Length 0.6 0.9 0.5 -Post Debridement Size (cm) - Width 2.9 3.5 2.7 -Post Debridement Size (cm) - Depth 0.1 0.1 0.1 -Total Square Cm 1.74 3.15 1.35 -Wound/Ulcer Outcome Not Healed Not Healed Not Healed -Ulcer Cleansing Rinsed/ Rinsed/ Rinsed/ Irrigated with Irrigated with Irrigated with Saline Saline Saline -Foul Odor after Cleansing No No No -Bioengineered Tissue No No -Bleeding Controlled with Pressure Pressure Pressure -Offloading No No No -Treatment Response Procedure Procedure Procedure Tolerated Well Tolerated Well Tolerated Well #1- LEFT GROIN- POST OP -Time 16:30 17:11 16:26 -Correct Patient Yes Yes Yes -Correct Side, Site, Position Yes Yes Yes -Correct Procedure Yes Yes Yes -Procedure Performed Yes Yes Yes -Type of Procedure Debridement Debridement Debridement -Clinical Debridement Subcutaneous Subcutaneous Subcutaneous -Post Debridement Size (cm) - Length 3.6 3.4 3.7 -Post Debridement Size (cm) - Width 14.1 14.9 14.5 -Post Debridement Size (cm) - Depth 0.1 0.1 0.1 -Total Square Cm 50.76 50.66 53.65 -Wound/Ulcer Outcome Not Healed Not Healed Not Healed -Ulcer Cleansing Rinsed/ Rinsed/ Rinsed/ Irrigated with Irrigated with Irrigated with Saline Saline Saline -Foul Odor after Cleansing No No No -Bioengineered Tissue Yes No Yes -Type of bioengineered Tissue NU-SHIELD NU-SHIELD -Expiration Date 05/03/23 02/27/23 05/06/23 -Product Lot Number [id number] no-[id number] -Percent Used 100 100 100 -Saline Lot Number [id number] -Topical Lidocaine (%) 4 5 -Bleeding Controlled with Pressure Pressure Pressure -Offloading No No -Treatment Response Procedure Procedure Procedure Tolerated Well Tolerated Well Tolerated Well Pain Scale: 0-10 Numeric Is Patient Pain Free? Yes Yes Yes Wound debrided: Left groin ulcer nonhealing Laterality: Left Type of Debridement: Excisional debridement Anesthesia Used: 5% Lidocaine Gel Depth: in the subcutaneous layer Percentage of wound debrided: 100 Instrument Used: 5mm curette Tissue Removed: Slough and devitalized tissue Severity: Fat Layer Exposed Amount of bleeding with debridement: Mild Bleeding Controlled with: Pressure Patient tolerated procedure well - Additional Wound Wound debrided: Left abdominal fold ulcer nonhealing Laterality: Left Type of Debridement: Excisional debridement Anesthesia Used: 5% Lidocaine Gel Depth: in the subcutaneous layer Percentage of wound debrided: 100 Instrument Used: 5mm curette Tissue Removed: Slough and devitalized tissue Severity: Fat Layer Exposed Amount of bleeding with debridement: Mild Bleeding Controlled with: Pressure Patient tolerated procedure: Patient tolerated procedure well Assessment/Plan Active Problems History of necrotising fasciitis (Acute) Lymphedema of both lower extremities (Acute) Type 2 diabetes mellitus (Acute) Diabetic neuropathy (Acute) Morbid obesity (Acute) Non-healing surgical wound of left groin (Acute) Skin ulcer of abdominal wall with fat layer exposed (Acute) left abdominal fold Assessment: Nonhealing postsurgical wound left groin status post surgical excision of necrotizing fasciitis. Bilateral lower extremity edema. Morbid obesity. Type 2 diabetes mellitus Plan: The patient was seen and examined at the wound center today and was updated on the plan of care. A subcutaneous debridement was performed today. The patient tolerated the procedure well. The patients wound care will consist of: Nushield #3 was applied to left groin wound after subcutaneous debridement, it was then covered with the wound veil and secured with Steri-Strips, 100% of the product was used with 0% waste. Patient tolerated the procedure well. Aquacel extra change daily to remaining area not covered with product to left groin ulcer and free product sample of Esperanza was applied to the left abdominal fold ulcer which will remain on for a week, this was covered with wound veil and steri strips on for securement. Wound cultures were reviewed prior and negative. Baseline bloodwork reviewed which demonstrated a slightly low pre- albumin and patient was advised to use Glucerna or high-protein with meals. Repeat lab work WNL. Prealbumin WNL now. Previous records were requested for co ntinuity of care. Patient educated on the importance of diet on wound healing and instructed to increase protein and vitamin C intake. Patient verbalized understanding. Plastic surgery consultation - no surgery indicated. Did discuss with patient the importance of blood sugar control in wound healing, recent A1C in 02/2018 was 6.1. Patient to follow-up in 1 week or sooner if needed. Patient is on a complex wound plan. This note was generated with [employer] dictation software. It may contain incorrect words, spelling, and punctuation that were not noted in checking the note before signing. Code Visit 111xxx-113xx: 09185 Jessica subq tissue 20 sq cm/< 150xxx-152xx: [id number] Skin sub graft trnk/arm/leg
[2018-06-19 16:00] VITALS: BP 145/91; PULSE 85; RESP 16; TEMP 35.8
--- NOTE | 2018-06-19 16:12 | WC ---
NUSHIELD LT ABD FOLD LEFT INTACT PER DANIELA'S REQUEST. HE WILL REMOVE
--- NOTE | 2018-06-19 18:38 | PCM.WC.PN ---
(1) Skin ulcer of abdominal wall with fat layer exposed Status: Acute Code(s): L98.492 - Non-pressure chronic ulcer of skin of other sites with fat layer exposed Comment: left abdominal fold (2) Non-healing surgical wound of left groin Status: Acute Qualifiers: Code(s): T81.89XA - Other complications of procedures, not elsewhere classified, initial encounter (3) Diabetic neuropathy Status: Acute Code(s): E11.40 - Type 2 diabetes mellitus with diabetic neuropathy, unspecified (4) History of necrotising fasciitis Status: Acute Code(s): Z87.39 - Personal history of other diseases of the musculoskeletal system and connective tissue (5) Lymphedema of both lower extremities Status: Acute Code(s): I89.0 - Lymphedema, not elsewhere classified (6) Morbid obesity Status: Acute Code(s): E66.01 - Morbid (severe) obesity due to excess calories (7) Type 2 diabetes mellitus Status: Acute Qualifiers: Code(s): E11.9 - Type 2 diabetes mellitus without complications Type of Wound Date of Service: 06/19/18 Chief Complaint: Nonhealing wound status post surgical excision of necrotizing fasciitis left groin History of Wound: 46-year-old white male who presents to the wound healing center today with complaint of left groin ulceration status post surgical excision of necrotizing fasciitis. He is a past medical history which is significant for that of type 2 diabetes mellitus, gout, diabetic neuropathy, schizophrenia, bilateral lymphedema, and schizophrenia. The patient states that what initially started as a pimple in his left groin progressed to necrotizing fasciitis and he had to have this surgically debrided in April 2017. He was admitted to [facility] for 2 weeks and then [facility] for 6 weeks afterwards. He states that the groin ulcer which extends to his left lower abdomen has been slowly improving and he has been doing daily Aquacel AG dressings with an ABD for the drainage. He does state that he has had 3 wound vacs in the past which were unable to be utilized due to the location of his wound. He denies any foul-smelling discharge or systemic signs of infection at this time. The patient otherwise denies any fever, chills, nausea, vomiting, shortness of breath, chest pain or pressure, palpitations, orthopnea, syncope or presyncopal episodes. Progress of Wound: Wounds are stable at this time, wound beds are moist and clean and without signs of gross infection at this time, still having delayed wound healing. Patient did keep on new shield and [place] application for 5 days. There is a bridge of skin that has epithelialized and now made into 2 separate wounds wound 1 left groin and wound to left lower abdominal fold. Patient continues to increase his oral protein supplementation with whey protein. Continues to have scant amount of serosanguineous drainage from left groin wound. The patient otherwise denies any fever, chills, nausea, vomiting, shortness of breath, chest pain or pressure, palpitations, orthopnea, lower extremity edema, syncope or presyncopal episodes. - Physical Exam Vital Signs Temp Pulse Resp BP 96.4 F L 85 16 145/91 H 06/19/18 16:00 06/19/18 16:00 06/19/18 16:00 06/19/18 16:00 General: Alert, Oriented x3, Cooperative, No apparent distress HEENT: Atraumatic Oral: Moist Mucosa Lungs: Clear to auscultation Cardiovascular: Regular rate Abdomen: Obese Extremities: No clubbing, No cyanosis, Edema - Bilateral lower extremity edema Skin: Ulcer/ Wound - Ulceration to left abdominal fold and left groin with adherent slough, slightly macerated wound edges, no redness, streaking, warmth, or purulent discharge noted on exam. Neurological: Neuro grossly intact Psych/Mental Status: Normal Affect, Appropriate, Alert and oriented to time, place, person, mood and affect Debridement Note Post-Debridement Measurements/Treatment WC - Nurse 2 - General Ulcer CM Notes Start: 05/29/18 15:50 Freq: Status: Active Protocol: Activity Type Activity Date Activity User E-Sign Co-Sign Detail Recorded Client Recorded Date Recorded By Document 05/29/18 16:28 DV [id number] 05/29/18 16:36 DV Document 06/05/18 17:10 DV [id number] 06/05/18 17:25 DV Document 06/12/18 16:25 AN [id number] 06/12/18 16:56 AN Document 06/19/18 16:32 MW [id number] 06/19/18 16:38 MW 05/29/18 06/05/18 06/12/18 16:28 17:10 16:25 Wound Center Nurse 2 #2 Left Abdominal Fold -Time 16:29 17:10 16:25 -Correct Patient Yes Yes Yes -Correct Side, Site, Position Yes Yes Yes -Correct Procedure Yes Yes Yes -Procedure Performed Yes Yes Yes -Type of Procedure Debridement Debridement Debridement -Clinical Debridement Subcutaneous Subcutaneous Subcutaneous -Post Debridement Size (cm) - Length 0.6 0.9 0.5 -Post Debridement Size (cm) - Width 2.9 3.5 2.7 -Post Debridement Size (cm) - Depth 0.1 0.1 0.1 -Total Square Cm 1.74 3.15 1.35 -Wound/Ulcer Outcome Not Healed Not Healed Not Healed -Ulcer Cleansing Rinsed/ Rinsed/ Rinsed/ Irrigated with Irrigated with Irrigated with Saline Saline Saline -Foul Odor after Cleansing No No No -Bioengineered Tissue No No -Bleeding Controlled with Pressure Pressure Pressure -Offloading No No No -Treatment Response Procedure Procedure Procedure Tolerated Well Tolerated Well Tolerated Well #1- LEFT GROIN- POST OP -Time 16:30 17:11 16:26 -Correct Patient Yes Yes Yes -Correct Side, Site, Position Yes Yes Yes -Correct Procedure Yes Yes Yes -Procedure Performed Yes Yes Yes -Type of Procedure Debridement Debridement Debridement -Clinical Debridement Subcutaneous Subcutaneous Subcutaneous -Post Debridement Size (cm) - Length 3.6 3.4 3.7 -Post Debridement Size (cm) - Width 14.1 14.9 14.5 -Post Debridement Size (cm) - Depth 0.1 0.1 0.1 -Total Square Cm 50.76 50.66 53.65 -Wound/Ulcer Outcome Not Healed Not Healed Not Healed -Ulcer Cleansing Rinsed/ Rinsed/ Rinsed/ Irrigated with Irrigated with Irrigated with Saline Saline Saline -Foul Odor after Cleansing No No No -Bioengineered Tissue Yes No Yes -Type of bioengineered Tissue NU-SHIELD NU-SHIELD -Expiration Date 05/03/23 02/27/23 05/06/23 -Product Lot Number [id number] no-[id number] -Percent Used 100 100 100 -Saline Lot Number [id number] -Topical Lidocaine (%) 4 5 -Bleeding Controlled with Pressure Pressure Pressure -Offloading No No -Treatment Response Procedure Procedure Procedure Tolerated Well Tolerated Well Tolerated Well Pain Scale: 0-10 Numeric Is Patient Pain Free? Yes Yes Yes 06/19/18 16:32 Wound Center Nurse 2 #2 Left Abdominal Fold -Time 16:35 -Correct Patient Yes -Correct Side, Site, Position Yes -Correct Procedure Yes -Procedure Performed Yes -Type of Procedure Debridement -Clinical Debridement Subcutaneous -Post Debridement Size (cm) - Length 0.6 -Post Debridement Size (cm) - Width 3.1 -Post Debridement Size (cm) - Depth 0.1 -Total Square Cm 1.86 -Wound/Ulcer Outcome Not Healed -Ulcer Cleansing Rinsed/ Irrigated with Saline -Foul Odor after Cleansing No -Bioengineered Tissue No -Bleeding Controlled with Pressure -Offloading No -Treatment Response Procedure Tolerated Well #1- LEFT GROIN- POST OP -Time 16:36 -Correct Patient Yes -Correct Side, Site, Position Yes -Correct Procedure Yes -Procedure Performed Yes -Type of Procedure Debridement -Clinical Debridement Subcutaneous -Post Debridement Size (cm) - Length 3.5 -Post Debridement Size (cm) - Width 14.2 -Post Debridement Size (cm) - Depth 0.1 -Total Square Cm 49.70 -Wound/Ulcer Outcome Not Healed -Ulcer Cleansing Rinsed/ Irrigated with Saline -Foul Odor after Cleansing No -Bioengineered Tissue No -Type of bioengineered Tissue -Expiration Date -Product Lot Number -Percent Used -Saline Lot Number -Topical Lidocaine (%) -Bleeding Controlled with Pressure -Offloading No -Treatment Response Procedure Tolerated Well Pain Scale: 0-10 Numeric Is Patient Pain Free? Yes Wound debrided: Left abdominal fold ulcer Laterality: Left Type of Debridement: Excisional debridement Anesthesia Used: 5% Lidocaine Gel Depth: in the subcutaneous layer Percentage of wound debrided: 100 Instrument Used: 5mm curette Tissue Removed: Slough and devitalized tissue Severity: Fat Layer Exposed Amount of bleeding with debridement: Mild Bleeding Controlled with: Pressure Patient tolerated procedure well - Additional Wound Wound debrided: Left groin ulcer Laterality: Left Type of Debridement: Excisional debridement Anesthesia Used: 5% Lidocaine Gel Depth: in the subcutaneous layer Percentage of wound debrided: 100 Instrument Used: 5mm curette Tissue Removed: Slough, devitalized tissue, macerated wound edges Severity: Fat Layer Exposed Amount of bleeding with debridement: Mild Bleeding Controlled with: Pressure Patient tolerated procedure: Patient tolerated procedure well Assessment/Plan Assessment: Nonhealing postsurgical wound left groin status post surgical excision of necrotizing fasciitis. Bilateral lower extremity edema. Morbid obesity. Type 2 diabetes mellitus Plan: The patient was seen and examined at the wound center today and was updated on the plan of care. A subcutaneous debridement was performed today. The patient tolerated the procedure well. The patients wound care will consist of: Aquacel extra change daily and as needed to all ulcerations, nushield on hold given the patient's maceration. Wound cultures were reviewed prior and negative. Baseline bloodwork reviewed which demonstrated a slightly low pre-albumin and patient was advised to use Glucerna or high-protein with meals. Repeat lab work WNL. Prealbumin WNL now. Previous records were requested for continuity of care. Patient educated on the importance of diet on wound healing and instructed to increase protein and vitamin C intake. Patient verbalized understanding. Plastic surgery consultation - no surgery indicated. Did discuss with patient the importance of blood sugar control in wound healing, recent A1C in 02/2018 was 6.1. Patient to follow-up in 1 week or sooner if needed. Patient is on a complex wound plan. This note was generated with [employer] dictation software. It may contain incorrect words, spelling, and punctuation that were not noted in checking the note before signing. Code Visit 111xxx-113xx: 56249 Jessica subq tissue 20 sq cm/< Add On Codes: [id number] Jessica subq tissue add-on
--- NOTE | 2018-06-24 13:41 | PN.PCM_ITS ---
(1) Skin ulcer of abdominal wall with fat layer exposed Status: Acute Code(s): L98.492 - Non-pressure chronic ulcer of skin of other sites with fat layer exposed Comment: left abdominal fold (2) Non-healing surgical wound of left groin Status: Acute Qualifiers: Code(s): T81.89XA - Other complications of procedures, not elsewhere classified, initial encounter (3) Diabetic neuropathy Status: Acute Code(s): E11.40 - Type 2 diabetes mellitus with diabetic neuropathy, unspecified (4) History of necrotising fasciitis Status: Acute Code(s): Z87.39 - Personal history of other diseases of the musculoskeletal system and connective tissue (5) Lymphedema of both lower extremities Status: Acute Code(s): I89.0 - Lymphedema, not elsewhere classified (6) Morbid obesity Status: Acute Code(s): E66.01 - Morbid (severe) obesity due to excess calories (7) Type 2 diabetes mellitus Status: Acute Qualifiers: Code(s): E11.9 - Type 2 diabetes mellitus without complications Type of Wound Date of Service: 06/19/18 Chief Complaint: Nonhealing wound status post surgical excision of necrotizing fasciitis left groin History of Wound: 46-year-old white male who presents to the wound healing [facility] today with complaint of left groin ulceration status post surgical excision of necrotizing fasciitis. He is a past medical history which is significant for that of type 2 diabetes mellitus, gout, diabetic neuropathy, schizophrenia, bilateral lymphedema, and schizophrenia. The patient states that what initially started as a pimple in his left groin progressed to necrotizing fasciitis and he had to have this surgically debrided in April 2017. He was admitted to [facility] for 2 weeks and then [facility] for 6 weeks afterwards. He states that the groin ulcer which extends to his left lower abdomen has been slowly improving and he has been doing daily Aquacel AG dressings with an ABD for the drainage. He does state that he has had 3 wound vacs in the past which were unable to be utilized due to the location of his wound. He denies any foul- smelling discharge or systemic signs of infection at this time. The patient otherwise denies any fever, chills, nausea, vomiting, shortness of breath, chest pain or pressure, palpitations, orthopnea, syncope or presyncopal episodes. Progress of Wound: Wounds are stable at this time, wound beds are moist and cl gloria and without signs of gross infection at this time, still having delayed wound healing. Patient did keep on new shield and Ord application for 5 days. There is a bridge of skin that has epithelialized and now made into 2 separate wounds wound 1 left groin and wound to left lower abdominal fold. Patient continues to increase his oral protein supplementation with whey protein. Continues to have scant amount of serosanguineous drainage from left groin wound. The patient otherwise denies any fever, chills, nausea, vomiting, shortness of breath, chest pain or pressure, palpitations, orthopnea, lower extremity edema, syncope or presyncopal episodes. - Physical Exam Vital Signs Temp Pulse Resp BP 96.4 F L 85 16 145/91 H 06/19/18 16:00 06/19/18 16:00 06/19/18 16:00 06/19/18 16:00 General: Alert, Oriented x3, Cooperative, No apparent distress HEENT: Atraumatic Oral: Moist Mucosa Lungs: Clear to auscultation Cardiovascular: Regular rate Abdomen: Obese Extremities: No clubbing, No cyanosis, Edema - Bilateral lower extremity edema Skin: Ulcer/ Wound - Ulceration to left abdominal fold and left groin with adherent slough, slightly macerated wound edges, no redness, streaking, warmth, or purulent discharge noted on exam. Neurological: Neuro grossly intact Psych/Mental Status: Normal Affect, Appropriate, Alert and oriented to time, place, person, mood and affect Debridement Note Post-Debridement Measurements/Treatment WC - Nurse 2 - General Ulcer CM Notes Start: 05/29/18 15:50 Freq: Status: Active Protocol: Activity Type Activity Date Activity User E-Sign Co-Sign Detail Recorded Client Recorded Date Recorded By Document 05/29/18 16:28 DV [id number] 05/29/18 16:36 DV Document 06/05/18 17:10 DV [id number] 06/05/18 17:25 DV Document 06/12/18 16:25 AN [id number] 06/12/18 16:56 AN Document 06/19/18 16:32 MW [id number] 06/19/18 16:38 MW 05/29/18 06/05/18 06/12/18 16:28 17:10 16:25 Wound Center Nurse 2 #2 Left Abdominal Fold -Time 16:29 17:10 16:25 -Correct Patient Yes Yes Yes -Correct Side, Site, Position Yes Yes Yes -Correct Procedure Yes Yes Yes -Procedure Performed Yes Yes Yes -Type of Procedure Debridement Debridement Debridement -Clinical Debridement Subcutaneous Subcutaneous Subcutaneous -Post Debridement Size (cm) - Length 0.6 0.9 0.5 -Post Debridement Size (cm) - Width 2.9 3.5 2.7 -Post Debridement Size (cm) - Depth 0.1 0.1 0.1 -Total Square Cm 1.74 3.15 1.35 -Wound/Ulcer Outcome Not Healed Not Healed Not Healed -Ulcer Cleansing Rinsed/ Rinsed/ Rinsed/ Irrigated with Irrigated with Irrigated with Saline Saline Saline -Foul Odor after Cleansing No No No -Bioengineered Tissue No No -Bleeding Controlled with Pressure Pressure Pressure -Offloading No No No -Treatment Response Procedure Procedure Procedure Tolerated Well Tolerated Well Tolerated Well #1- LEFT GROIN- POST OP -Time 16:30 17:11 16:26 -Correct Patient Yes Yes Yes -Correct Side, Site, Position Yes Yes Yes -Correct Procedure Yes Yes Yes -Procedure Performed Yes Yes Yes -Type of Procedure Debridement Debridement Debridement -Clinical Debridement Subcutaneous Subcutaneous Subcutaneous -Post Debridement Size (cm) - Length 3.6 3.4 3.7 -Post Debridement Size (cm) - Width 14.1 14.9 14.5 -Post Debridement Size (cm) - Depth 0.1 0.1 0.1 -Total Square Cm 50.76 50.66 53.65 -Wound/Ulcer Outcome Not Healed Not Healed Not Healed -Ulcer Cleansing Rinsed/ Rinsed/ Rinsed/ Irrigated with Irrigated with Irrigated with Saline Saline Saline -Foul Odor after Cleansing No No No -Bioengineered Tissue Yes No Yes -Type of bioengineered Tissue NU-SHIELD NU-SHIELD -Expiration Date 05/03/23 02/27/23 05/06/23 -Product Lot Number [id number] -Percent Used 100 100 100 -Saline Lot Number [id number] -Topical Lidocaine (%) 4 5 -Bleeding Controlled with Pressure Pressure Pressure -Offloading No No -Treatment Response Procedure Procedure Procedure Tolerated Well Tolerated Well Tolerated Well Pain Scale: 0-10 Numeric Is Patient Pain Free? Yes Yes Yes 06/19/18 16:32 Wound Center Nurse 2 #2 Left Abdominal Fold -Time 16:35 -Correct Patient Yes -Correct Side, Site, Position Yes -Correct Procedure Yes -Procedure Performed Yes -Type of Procedure Debridement -Clinical Debridement Subcutaneous -Post Debridement Size (cm) - Length 0.6 -Post Debridement Size (cm) - Width 3.1 -Post Debridement Size (cm) - Depth 0.1 -Total Square Cm 1.86 -Wound/Ulcer Outcome Not Healed -Ulcer Cleansing Rinsed/ Irrigated with Saline -Foul Odor after Cleansing No -Bioengineered Tissue No -Bleeding Controlled with Pressure -Offloading No -Treatment Response Procedure Tolerated Well #1- LEFT GROIN- POST OP -Time 16:36 -Correct Patient Yes -Correct Side, Site, Position Yes -Correct Procedure Yes -Procedure Performed Yes -Type of Procedure Debridement -Clinical Debridement Subcutaneous -Post Debridement Size (cm) - Length 3.5 -Post Debridement Size (cm) - Width 14.2 -Post Debridement Size (cm) - Depth 0.1 -Total Square Cm 49.70 -Wound/Ulcer Outcome Not Healed -Ulcer Cleansing Rinsed/ Irrigated with Saline -Foul Odor after Cleansing No -Bioengineered Tissue No -Type of bioengineered Tissue -Expiration Date -Product Lot Number -Percent Used -Saline Lot Number -Topical Lidocaine (%) -Bleeding Controlled with Pressure -Offloading No -Treatment Response Procedure Tolerated Well Pain Scale: 0-10 Numeric Is Patient Pain Free? Yes Wound debrided: Left abdominal fold ulcer Laterality: Left Type of Debridement: Excisional debridement Anesthesia Used: 5% Lidocaine Gel Depth: in the subcutaneous layer Percentage of wound debrided: 100 Instrument Used: 5mm curette Tissue Removed: Slough and devitalized tissue Severity: Fat Layer Exposed Amount of bleeding with debridement: Mild Bleeding Controlled with: Pressure Patient tolerated procedure well - Additional Wound Wound debrided: Left groin ulcer Laterality: Left Type of Debridement: Excisional debridement Anesthesia Used: 5% Lidocaine Gel Depth: in the subcutaneous layer Percentage of wound debrided: 100 Instrument Used: 5mm curette Tissue Removed: Slough, devitalized tissue, macerated wound edges Severity: Fat Layer Exposed Amount of bleeding with debridement: Mild Bleeding Controlled with: Pressure Patient tolerated procedure: Patient tolerated procedure well Assessment/Plan Assessment: Nonhealing postsurgical wound left groin status post surgical excision of necrotizing fasciitis. Bilateral lower extremity edema. Morbid obesity. Type 2 diabetes mellitus Plan: The patient was seen and examined at the wound center today and was updated on the plan of care. A subcutaneous debridement was performed today. The patient tolerated the procedure well. The patients wound care will consist of: Aquacel extra change daily and as needed to all ulcerations, nushield on hold given the patient's maceration. Wound cultures were reviewed prior and negative. Baseline bloodwork reviewed which demonstrated a slightly low pre-albumin and patient was advised to use Glucerna or high-protein with meals. Repeat lab work WNL. Prealbumin WNL now. Previous records were requested for continuity of care. Patient educated on the importance of diet on wound healing and instructed to increase protein and vitamin C intake. Patient verbalized understanding. Plastic surgery consultation - no surgery indicated. Did discuss with patient the importance of blood sugar control in wound healing, recent A1C in 02/2018 was 6.1. Patient to follow-up in 1 week or sooner if needed. Patient is on a complex wound plan. This note was generated with [employer] dictation software. It may contain incorrect words, spelling, and punctuation that were not noted in checking the note before signing. Code Visit 111xxx-113xx: 13688 Jessica subq tissue 20 sq cm/< Add On Codes: [id number] Jessica subq tissue add-on
== END 2018-06-19 23:59 ==
LOC: WC 15:30
PROVIDERS: Family Provider Family Medicine; PCP Family Medicine; Visit Provider Nurse Practitioner Family
DX: E11.622 Type 2 diabetes mellitus with other skin ulcer (principal); L98.492 Non-pressure chronic ulcer of skin of other sites with fat layer exposed; I89.0 Lymphedema, not elsewhere classified; E66.01 Morbid (severe) obesity due to excess calories; Z68.43 Body mass index [BMI] 50.0-59.9, adult; Z71.3 Dietary counseling and surveillance; R60.0 Localized edema; E11.42 Type 2 diabetes mellitus with diabetic polyneuropathy; Z87.39 Personal history of other diseases of the musculoskeletal system and connective tissue
CPT/HCPCS: 11042; 11045; 15271; Q4160

== ENCOUNTER 2018-07-17 15:30 | Outpatient (RCR) | payer MEDICARE, MEDICAID, SELFPAY ==
[2018-06-20 00:52] VITALS: BP 145/91; PULSE 85; RESP 16; TEMP 35.8
[2018-06-26 15:28] VITALS: BP 141/74; PULSE 96; RESP 16; TEMP 36.4
--- NOTE | 2018-06-26 19:51 | PCM.WC.PN ---
(1) Skin ulcer of abdominal wall with fat layer exposed Status: Acute Code(s): L98.492 - Non-pressure chronic ulcer of skin of other sites with fat layer exposed Comment: left abdominal fold (2) Non-healing surgical wound of left groin Status: Acute Qualifiers: Code(s): T81.89XA - Other complications of procedures, not elsewhere classified, initial encounter (3) History of necrotising fasciitis Status: Acute Code(s): Z87.39 - Personal history of other diseases of the musculoskeletal system and connective tissue (4) Lymphedema of both lower extremities Status: Acute Code(s): I89.0 - Lymphedema, not elsewhere classified (5) Morbid obesity Status: Acute Code(s): E66.01 - Morbid (severe) obesity due to excess calories (6) Type 2 diabetes mellitus Status: Acute Qualifiers: Code(s): E11.9 - Type 2 diabetes mellitus without complications Type of Wound Date of Service: 06/26/18 Chief Complaint: Nonhealing wound status post surgical excision of necrotizing fasciitis left groin History of Wound: 46-year-old white male who presents to the wound healing center today with complaint of left groin ulceration status post surgical excision of necrotizing fasciitis. He is a past medical history which is significant for that of type 2 diabetes mellitus, gout, diabetic neuropathy, schizophrenia, bilateral lymphedema, and schizophrenia. The patient states that what initially started as a pimple in his left groin progressed to necrotizing fasciitis and he had to have this surgically debrided in April 2017. He was admitted to [facility] for 2 weeks and then [facility] for 6 weeks afterwards. He states that the groin ulcer which extends to his left lower abdomen has been slowly improving and he has been doing daily Aquacel AG dressings with an ABD for the drainage. He does state that he has had 3 wound vacs in the past which were unable to be utilized due to the location of his wound. He denies any foul-smelling discharge or systemic signs of infection at this time. The patient otherwise denies any fever, chills, nausea, vomiting, shortness of breath, chest pain or pressure, palpitations, orthopnea, syncope or presyncopal episodes. Progress of Wound: Wounds are stable at this time, wound beds are moist and clean and without signs of gross infection at this time, still having delayed wound healing. Maceration has improved compared to last week. There is a bridge of skin that has epithelialized and now made into 2 separate wounds wound 1 left groin and wound to left lower abdominal fold. Patient continues to increase his oral protein supplementation with whey protein. Continues to have scant amount of serosanguineous drainage from left groin wound. The patient otherwise denies any fever, chills, nausea, vomiting, shortness of breath, chest pain or pressure, palpitations, orthopnea, lower extremity edema, syncope or presyncopal episodes. - Physical Exam Vital Signs Temp Pulse Resp BP 97.5 F L 96 16 141/74 H 06/26/18 15:28 06/26/18 15:28 06/26/18 15:28 06/26/18 15:28 General: Alert, Oriented x3, Cooperative, No apparent distress HEENT: Atraumatic Oral: Moist Mucosa Lungs: Clear to auscultation, Normal air movement Cardiovascular: Regular rate Abdomen: Soft, Obese Extremities: No clubbing, No cyanosis, Edema - Bilateral lower extremities Skin: Ulcer/ Wound - Left abdominal fold and left groin ulcer with adherent slough to wound bed, maceration has improved compared to last week, mild serosanguineous discharge present, otherwise no signs of infection at this time. Neurological: Neuro grossly intact Psych/Mental Status: Normal Affect, Appropriate, Alert and oriented to time, place, person, mood and affect Debridement Note Post-Debridement Measurements/Treatment WC - Nurse 2 - General Ulcer CM Notes Start: 06/26/18 15:27 Freq: Status: Active Protocol: Activity Type Activity Date Activity User E-Sign Co-Sign Detail Recorded Client Recorded Date Recorded By Document 06/26/18 16:02 AN [id number] 06/26/18 16:13 AN 06/26/18 16:02 Wound Center Nurse 2 #2 Left Abdominal Fold -Time 16:04 -Correct Patient Yes -Correct Side, Site, Position Yes -Correct Procedure Yes -Procedure Performed Yes -Type of Procedure Debridement -Clinical Debridement Subcutaneous -Post Debridement Size (cm) - Length 0.6 -Post Debridement Size (cm) - Width 3.0 -Post Debridement Size (cm) - Depth 0.1 -Total Square Cm 1.80 -Wound/Ulcer Outcome Not Healed -Ulcer Cleansing Rinsed/ Irrigated with Saline -Foul Odor after Cleansing No -Bioengineered Tissue No -Bleeding Controlled with Pressure -Offloading No -Treatment Response Procedure Tolerated Well #1- LEFT GROIN- POST OP -Time 16:05 -Correct Patient Yes -Correct Side, Site, Position Yes -Correct Procedure Yes -Procedure Performed Yes -Type of Procedure Debridement -Clinical Debridement Subcutaneous -Post Debridement Size (cm) - Length 29 -Post Debridement Size (cm) - Width 14.6 -Post Debridement Size (cm) - Depth 0.1 -Total Square Cm 423.4 -Wound/Ulcer Outcome Not Healed -Ulcer Cleansing Rinsed/ Irrigated with Saline -Foul Odor after Cleansing No -Bioengineered Tissue Yes -Type of bioengineered Tissue NU-SHIELD -Expiration Date 06/01/23 -Product Lot Number [id number] -Percent Used 100 -Saline Lot Number [id number] -Topical Lidocaine (%) 4 -Bleeding Controlled with Pressure -Offloading No -Treatment Response Procedure Tolerated Well Pain Scale: 0-10 Numeric Is Patient Pain Free? Yes Wound debrided: Left groin ulcer Laterality: Left Type of Debridement: Excisional debridement Anesthesia Used: 5% Lidocaine Gel Depth: in the subcutaneous layer Percentage of wound debrided: 100 Instrument Used: 5mm curette Tissue Removed: Slough and devitalized tissue Severity: Fat Layer Exposed Amount of bleeding with debridement: Mild Bleeding Controlled with: Pressure Patient tolerated procedure well - Additional Wound Wound debrided: Left abdominal fold ulcer Laterality: Left Type of Debridement: Excisional debridement Anesthesia Used: 5% Lidocaine Gel Depth: in the subcutaneous layer Percentage of wound debrided: 100 Instrument Used: 5mm curette Tissue Removed: Soft and devitalized tissue Severity: Fat Layer Exposed Amount of bleeding with debridement: Mild Bleeding Controlled with: Pressure Patient tolerated procedure: Patient tolerated procedure well Assessment/Plan Assessment: Nonhealing postsurgical wound left groin status post surgical excision of necrotizing fasciitis. Bilateral lower extremity edema. Morbid obesity. Type 2 diabetes mellitus Plan: The patient was seen and examined at the wound center today and was updated on the plan of care. A subcutaneous debridement was performed today. The patient tolerated the procedure well. The patients wound care will consist of: Nushield #4 was applied to left groin wound after subcutaneous debridement, it was then covered with the wound veil and secured with Steri-Strips, 100% of the product was used with 0% waste. Patient tolerated the procedure well. Aquacel extra change daily to remaining area not covered with product to left groin ulcer and free product sample of [place] was applied to the left abdominal fold ulcer which will remain on for a week, this was covered with wound veil and steri strips on for securement. Wound cultures were reviewed prior and negative. Baseline bloodwork reviewed which demonstrated a slightly low pre-albumin and patient was advised to use Glucerna or high-protein with meals. Repeat lab work WNL. Prealbumin WNL now. Previous records were requested for continuity of care. Patient educated on the importance of diet on wound healing and instructed to increase protein and vitamin C intake. Patient verbalized understanding. Plastic surgery consultation - no surgery indicated. Did discuss with patient the importance of blood sugar control in wound healing, recent A1C in 02/2018 was 6.1. Patient to follow-up in 1 week or sooner if needed. Patient is on a complex wound plan. This note was generated with [employer] dictation software. It may contain incorrect words, spelling, and punctuation that were not noted in checking the note before signing. Code Visit 111xxx-113xx: 51728 Jessica subq tissue 20 sq cm/< 150xxx-152xx: [id number] Skin sub graft trnk/arm/leg
--- NOTE | 2018-07-01 11:55 | PN.PCM_ITS ---
(1) Skin ulcer of abdominal wall with fat layer exposed Status: Acute Code(s): L98.492 - Non-pressure chronic ulcer of skin of other sites with fat layer exposed Comment: left abdominal fold (2) Non-healing surgical wound of left groin Status: Acute Qualifiers: Code(s): T81.89XA - Other complications of procedures, not elsewhere classified, initial encounter (3) History of necrotising fasciitis Status: Acute Code(s): Z87.39 - Personal history of other diseases of the musculoskeletal system and connective tissue (4) Lymphedema of both lower extremities Status: Acute Code(s): I89.0 - Lymphedema, not elsewhere classified (5) Morbid obesity Status: Acute Code(s): E66.01 - Morbid (severe) obesity due to excess calories (6) Type 2 diabetes mellitus Status: Acute Qualifiers: Code(s): E11.9 - Type 2 diabetes mellitus without complications Type of Wound Date of Service: 06/26/18 Chief Complaint: Nonhealing wound status post surgical excision of necrotizing fasciitis left groin History of Wound: 46-year-old white male who presents to the wound healing center today with complaint of left groin ulceration status post surgical excision of necrotizing fasciitis. He is a past medical history which is significant for that of type 2 diabetes mellitus, gout, diabetic neuropathy, schizophrenia, bilateral lymphedema, and schizophrenia. The patient states that what initially started as a pimple in his left groin progressed to necrotizing fasciitis and he had to have this surgically debrided in April 2017. He was admitted to [facility] for 2 weeks and then [facility] for 6 weeks afterwards. He states that the groin ulcer which extends to his left lower abdomen has been slowly improving and he has been doing daily Aquacel AG dressings with an ABD for the drainage. He does state that he has had 3 wound vacs in the past which were unable to be utilized due to the location of his wound. He denies any foul-smelling discharge or systemic signs of infection at this time. The patient otherwise denies any fever, chills, nausea, vomiting, shortness of breath, chest pain or pressure, palpitations, orthopnea, syncope or presyncopal episodes. Progress of Wound: Wounds are stable at this time, wound beds are moist and clean and without signs of gross infection at this time, still having delayed wound healing. Maceration has improved compared to last week. There is a bridge of skin that has epithelialized and now made into 2 separate wounds wound 1 left groin and wound to left lower abdominal fold. Patient continues to increase his oral protein supplementation with whey protein. Continues to have scant amount of serosanguineous drainage from left groin wound. The patient otherwise denies any fever, chills, nausea, vomiting, shortness of breath, chest pain or pressure, palpitations, orthopnea, lower extremity edema, syncope or presyncopal episodes. - Physical Exam Vital Signs Temp Pulse Resp BP 97.5 F L 96 16 141/74 H 06/26/18 15:28 06/26/18 15:28 06/26/18 15:28 06/26/18 15:28 General: Alert, Oriented x3, Cooperative, No apparent distress HEENT: Atraumatic Oral: Moist Mucosa Lungs: Clear to auscultation, Normal air movement Cardiovascular: Regular rate Abdomen: Soft, Obese Extremities: No clubbing, No cyanosis, Edema - Bilateral lower extremities Skin: Ulcer/ Wound - Left abdominal fold and left groin ulcer with adherent slo ugh to wound bed, maceration has improved compared to last week, mild serosanguineous discharge present, otherwise no signs of infection at this time. Neurological: Neuro grossly intact Psych/Mental Status: Normal Affect, Appropriate, Alert and oriented to time, place, person, mood and affect Debridement Note Post-Debridement Measurements/Treatment WC - Nurse 2 - General Ulcer CM Notes Start: 06/26/18 15:27 Freq: Status: Active Protocol: Activity Type Activity Date Activity User E-Sign Co-Sign Detail Recorded Client Recorded Date Recorded By Document 06/26/18 16:02 AN [id number] 06/26/18 16:13 AN 06/26/18 16:02 Wound Center Nurse 2 #2 Left Abdominal Fold -Time 16:04 -Correct Patient Yes -Correct Side, Site, Position Yes -Correct Procedure Yes -Procedure Performed Yes -Type of Procedure Debridement -Clinical Debridement Subcutaneous -Post Debridement Size (cm) - Length 0.6 -Post Debridement Size (cm) - Width 3.0 -Post Debridement Size (cm) - Depth 0.1 -Total Square Cm 1.80 -Wound/Ulcer Outcome Not Healed -Ulcer Cleansing Rinsed/ Irrigated with Saline -Foul Odor after Cleansing No -Bioengineered Tissue No -Bleeding Controlled with Pressure -Offloading No -Treatment Response Procedure Tolerated Well #1- LEFT GROIN- POST OP -Time 16:05 -Correct Patient Yes -Correct Side, Site, Position Yes -Correct Procedure Yes -Procedure Performed Yes -Type of Procedure Debridement -Clinical Debridement Subcutaneous -Post Debridement Size (cm) - Length 29 -Post Debridement Size (cm) - Width 14.6 -Post Debridement Size (cm) - Depth 0.1 -Total Square Cm 423.4 -Wound/Ulcer Outcome Not Healed -Ulcer Cleansing Rinsed/ Irrigated with Saline -Foul Odor after Cleansing No -Bioengineered Tissue Yes -Type of bioengineered Tissue NU-SHIELD -Expiration Date 06/01/23 -Product Lot Number [id number] -Percent Used 100 -Saline Lot Number [id number] -Topical Lidocaine (%) 4 -Bleeding Controlled with Pressure -Offloading No -Treatment Response Procedure Tolerated Well Pain Scale: 0-10 Numeric Is Patient Pain Free? Yes Wound debrided: Left groin ulcer Laterality: Left Type of Debridement: Excisional debridement Anesthesia Used: 5% Lidocaine Gel Depth: in the subcutaneous layer Percentage of wound debrided: 100 Instrument Used: 5mm curette Tissue Removed: Slough and devitalized tissue Severity: Fat Layer Exposed Amount of bleeding with debridement: Mild Bleeding Controlled with: Pressure Patient tolerated procedure well - Additional Wound Wound debrided: Left abdominal fold ulcer Laterality: Left Type of Debridement: Excisional debridement Anesthesia Used: 5% Lidocaine Gel Depth: in the subcutaneous layer Percentage of wound debrided: 100 Instrument Used: 5mm curette Tissue Removed: Soft and devitalized tissue Severity: Fat Layer Exposed Amount of bleeding with debridement: Mild Bleeding Controlled with: Pressure Patient tolerated procedure: Patient tolerated procedure well Assessment/Plan Assessment: Nonhealing postsurgical wound left groin status post surgical excision of necrotizing fasciitis. Bilateral lower extremity edema. Morbid obesity. Type 2 diabetes mellitus Plan: The patient was seen and examined at the wound center today and was updated on the plan of care. A subcutaneous debridement was performed today. The patient tolerated the procedure well. The patients wound care will consist of: [place] #4 was applied to left groin wound after subcutaneous debridement, it was then covered with the wound veil and secured with Steri-Strips, 100% of the product was used with 0% waste. Patient tolerated the procedure well. Aquacel extra change daily to remaining area not covered with product to left groin ulcer and free product sample of [place] was applied to the left abdominal fold ulcer which will remain on for a week, this was covered with wound veil and steri strips on for securement. Wound cultures were reviewed prior and negative. Baseline bloodwork reviewed which demonstrated a slightly low pre-a lbumin and patient was advised to use Glucerna or high-protein with meals. Repeat lab work WNL. Prealbumin WNL now. Previous records were requested for continuity of care. Patient educated on the importance of diet on wound healing and instructed to increase protein and vitamin C intake. Patient verbalized understanding. Plastic surgery consultation - no surgery indicated. Did discuss with patient the importance of blood sugar control in wound healing, recent A1C in 02/2018 was 6.1. Patient to follow-up in 1 week or sooner if needed. Patient is on a complex wound plan. This note was generated with [employer] dictation software. It may contain incorrect words, spelling, and punctuation that were not noted in checking the note before signing. Code Visit 111xxx-113xx: [id number] Jessica subq tissue 20 sq cm/< 150xxx-152xx: [id number] Skin sub graft trnk/arm/leg
[2018-07-03 15:18] VITALS: BP 130/78; PULSE 108; RESP 16; TEMP 36.2
--- NOTE | 2018-07-03 15:34 | PCM.WC.PN ---
(1) Skin ulcer of abdominal wall with fat layer exposed Status: Acute Code(s): L98.492 - Non-pressure chronic ulcer of skin of other sites with fat layer exposed Comment: left abdominal fold (2) Non-healing surgical wound of left groin Status: Acute Qualifiers: Code(s): T81.89XA - Other complications of procedures, not elsewhere classified, initial encounter (3) History of necrotising fasciitis Status: Acute Code(s): Z87.39 - Personal history of other diseases of the musculoskeletal system and connective tissue (4) Lymphedema of both lower extremities Status: Acute Code(s): I89.0 - Lymphedema, not elsewhere classified (5) Morbid obesity Status: Acute Code(s): E66.01 - Morbid (severe) obesity due to excess calories (6) Type 2 diabetes mellitus Status: Acute Qualifiers: Code(s): E11.9 - Type 2 diabetes mellitus without complications Type of Wound Date of Service: 07/03/18 Chief Complaint: Nonhealing wound status post surgical excision of necrotizing fasciitis left groin History of Wound: 46-year-old white male who presents to the wound healing center today with complaint of left groin ulceration status post surgical excision of necrotizing fasciitis. He is a past medical history which is significant for that of type 2 diabetes mellitus, gout, diabetic neuropathy, schizophrenia, bilateral lymphedema, and schizophrenia. The patient states that what initially started as a pimple in his left groin progressed to necrotizing fasciitis and he had to have this surgically debrided in April 2017. He was admitted to [facility] for 2 weeks and then [facility] for 6 weeks afterwards. He states that the groin ulcer which extends to his left lower abdomen has been slowly improving and he has been doing daily Aquacel AG dressings with an ABD for the drainage. He does state that he has had 3 wound vacs in the past which were unable to be utilized due to the location of his wound. He denies any foul-smelling discharge or systemic signs of infection at this time. The patient otherwise denies any fever, chills, nausea, vomiting, shortness of breath, chest pain or pressure, palpitations, orthopnea, syncope or presyncopal episodes. Progress of Wound: Wounds are stable at this time, wound beds are moist and clean and without signs of gross infection at this time, still having delayed wound healing. Maceration has resolved. There is a bridge of skin that has epithelialized and now made into 2 separate wounds wound 1 left groin and wound to left lower abdominal fold. Patient continues to increase his oral protein supplementation with whey protein. Continues to have scant amount of serosanguineous drainage from left groin wound. The patient otherwise denies any fever, chills, nausea, vomiting, shortness of breath, chest pain or pressure, palpitations, orthopnea, lower extremity edema, syncope or presyncopal episodes. - Physical Exam Vital Signs Temp Pulse Resp BP 97.1 F L 108 H 16 130/78 H 07/03/18 15:18 07/03/18 15:18 07/03/18 15:18 07/03/18 15:18 General: Alert, Oriented x3, Cooperative, No apparent distress HEENT: Atraumatic Oral: Moist Mucosa Lungs: Clear to auscultation Cardiovascular: Regular rate Abdomen: Obese Extremities: No clubbing, No cyanosis Skin: Ulcer/ Wound - Ulceration to left abdominal fold and left groin with adherent slough to wound bed, wound bed is moist without any signs of infection at this time, no redness, streaking, or odor Neurological: Neuro grossly intact Psych/Mental Status: Normal Affect, Appropriate, Alert and oriented to time, place, person, mood and affect Debridement Note Post-Debridement Measurements/Treatment WC - Nurse 2 - General Ulcer CM Notes Start: 06/26/18 15:27 Freq: Status: Active Protocol: Activity Type Activity Date Activity User E-Sign Co-Sign Detail Recorded Client Recorded Date Recorded By Document 06/26/18 16:02 AN [id number] 06/26/18 16:13 AN Document 07/03/18 16:13 AN [id number] 07/03/18 16:20 AN 06/26/18 07/03/18 16:02 16:13 Wound Center Nurse 2 #2 Left Abdominal Fold -Time 16:04 16:17 -Correct Patient Yes Yes -Correct Side, Site, Position Yes Yes -Correct Procedure Yes Yes -Procedure Performed Yes Yes -Type of Procedure Debridement Debridement -Clinical Debridement Subcutaneous Subcutaneous -Post Debridement Size (cm) - Length 0.6 0.7 -Post Debridement Size (cm) - Width 3.0 2.8 -Post Debridement Size (cm) - Depth 0.1 0.1 -Total Square Cm 1.80 1.96 -Wound/Ulcer Outcome Not Healed Not Healed -Ulcer Cleansing Rinsed/ Rinsed/ Irrigated with Irrigated with Saline Saline -Foul Odor after Cleansing No No -Bioengineered Tissue No -Bleeding Controlled with Pressure Pressure -Offloading No No -Treatment Response Procedure Procedure Tolerated Well Tolerated Well #1- LEFT GROIN- POST OP -Time 16:05 16:18 -Correct Patient Yes Yes -Correct Side, Site, Position Yes Yes -Correct Procedure Yes Yes -Procedure Performed Yes Yes -Type of Procedure Debridement Debridement -Clinical Debridement Subcutaneous Subcutaneous -Post Debridement Size (cm) - Length 29 3.4 -Post Debridement Size (cm) - Width 14.6 13.1 -Post Debridement Size (cm) - Depth 0.1 0.1 -Total Square Cm 423.4 44.54 -Wound/Ulcer Outcome Not Healed Not Healed -Ulcer Cleansing Rinsed/ Rinsed/ Irrigated with Irrigated with Saline Saline -Foul Odor after Cleansing No No -Bioengineered Tissue Yes No -Type of bioengineered Tissue NU-SHIELD -Expiration Date 06/01/23 -Product Lot Number [id number] -Percent Used 100 -Saline Lot Number [id number] -Topical Lidocaine (%) 4 -Bleeding Controlled with Pressure Pressure -Offloading No No -Treatment Response Procedure Procedure Tolerated Well Tolerated Well Pain Scale: 0-10 Numeric Is Patient Pain Free? Yes Yes Wound debrided: Left abdominal fold and groin ulcer Laterality: Left Type of Debridement: Excisional debridement Anesthesia Used: 5% Lidocaine Gel Depth: in the subcutaneous layer Percentage of wound debrided: 100 Instrument Used: 5mm curette Tissue Removed: Slough and devitalized tissue Severity: Fat Layer Exposed Amount of bleeding with debridement: Mild Bleeding Controlled with: Pressure Patient tolerated procedure well Assessment/Plan Assessment: Nonhealing postsurgical wound left groin status post surgical excision of necrotizing fasciitis. Bilateral lower extremity edema. Morbid obesity. Type 2 diabetes mellitus Plan: The patient was seen and examined at the wound center today and was updated on the plan of care. A subcutaneous debridement was performed today. The patient tolerated the procedure well. The patients wound care will consist of: Aquasol extra change daily and as needed cover with gauze. Wound cultures were reviewed prior and negative. Baseline bloodwork reviewed which demonstrated a slightly low pre-albumin and patient was advised to use Glucerna or high-protein with meals. Repeat lab work WNL. Prealbumin WNL now. Previous records were requested for continuity of care. Patient educated on the importance of diet on wound healing and instructed to increase protein and vitamin C intake. Patient verbalized understanding. Plastic surgery consultation - no surgery indicated. Did discuss with patient the importance of blood sugar control in wound healing, recent A1C in 02/2018 was 6.1. Patient to follow-up in 1 week or sooner if needed. Patient is on a complex wound plan. This note was generated with [employer] dictation software. It may contain incorrect words, spelling, and punctuation that were not noted in checking the note before signing. Code Visit 111xxx-113xx: [id number] Jessica subq tissue 20 sq cm/<
--- NOTE | 2018-07-08 13:40 | PN.PCM_ITS ---
(1) Skin ulcer of abdominal wall with fat layer exposed Status: Acute Code(s): L98.492 - Non-pressure chronic ulcer of skin of other sites with fat layer exposed Comment: left abdominal fold (2) Non-healing surgical wound of left groin Status: Acute Qualifiers: Code(s): T81.89XA - Other complications of procedures, not elsewhere classified, initial encounter (3) History of necrotising fasciitis Status: Acute Code(s): Z87.39 - Personal history of other diseases of the musculoskeletal system and connective tissue (4) Lymphedema of both lower extremities Status: Acute Code(s): I89.0 - Lymphedema, not elsewhere classified (5) Morbid obesity Status: Acute Code(s): E66.01 - Morbid (severe) obesity due to excess calories (6) Type 2 diabetes mellitus Status: Acute Qualifiers: Code(s): E11.9 - Type 2 diabetes mellitus without complications Type of Wound Date of Service: 07/03/18 Chief Complaint: Nonhealing wound status post surgical excision of necrotizing fasciitis left groin History of Wound: 46-year-old white male who presents to the wound healing center today with complaint of left groin ulceration status post surgical excision of necrotizing fasciitis. He is a past medical history which is significant for that of type 2 diabetes mellitus, gout, diabetic neuropathy, schizophrenia, bilateral lymphedema, and schizophrenia. The patient states that what initially started as a pimple in his left groin progressed to necrotizing fasciitis and he had to have this surgically debrided in April 2017. He was admitted to [facility] for 2 weeks and then [facility] for 6 weeks afterwards. He states that the groin ulcer which extends to his left lower abdomen has been slowly improving and he has been doing daily Aquacel AG dressings with an ABD for the drainage. He does state that he has had 3 wound vacs in the past which were unable to be utilized due to the location of his wound. He denies any foul-smelling discharge or systemic signs of infection at this time. The patient otherwise denies any fever, chills, nausea, vomiting, shortness of breath, chest pain or pressure, palpitations, orthopnea, syncope or presyncopal episodes. Progress of Wound: Wounds are stable at this time, wound beds are moist and clean and without signs of gross infection at this time, still having delayed wound healing. Maceration has resolved. There is a bridge of skin that has epithelialized and now made into 2 separate wounds wound 1 left groin and wound to left lower abdominal fold. Patient continues to increase his oral protein supplementation with whey protein. Continues to have scant amount of serosan guineous drainage from left groin wound. The patient otherwise denies any fever, chills, nausea, vomiting, shortness of breath, chest pain or pressure, palpitations, orthopnea, lower extremity edema, syncope or presyncopal episodes. - Physical Exam Vital Signs Temp Pulse Resp BP 97.1 F L 108 H 16 130/78 H 07/03/18 15:18 07/03/18 15:18 07/03/18 15:18 07/03/18 15:18 General: Alert, Oriented x3, Cooperative, No apparent distress HEENT: Atraumatic Oral: Moist Mucosa Lungs: Clear to auscultation Cardiovascular: Regular rate Abdomen: Obese Extremities: No clubbing, No cyanosis Skin: Ulcer/ Wound - Ulceration to left abdominal fold and left groin with adherent slough to wound bed, wound bed is moist without any signs of infection at this time, no redness, streaking, or odor Neurological: Neuro grossly intact Psych/Mental Status: Normal Affect, Appropriate, Alert and oriented to time, p lace, person, mood and affect Debridement Note Post-Debridement Measurements/Treatment WC - Nurse 2 - General Ulcer CM Notes Start: 06/26/18 15:27 Freq: Status: Active Protocol: Activity Type Activity Date Activity User E-Sign Co-Sign Detail Recorded Client Recorded Date Recorded By Document 06/26/18 16:02 AN [id number] 06/26/18 16:13 AN Document 07/03/18 16:13 AN [id number] 07/03/18 16:20 AN 06/26/18 07/03/18 16:02 16:13 Wound Center Nurse 2 #2 Left Abdominal Fold -Time 16:04 16:17 -Correct Patient Yes Yes -Correct Side, Site, Position Yes Yes -Correct Procedure Yes Yes -Procedure Performed Yes Yes -Type of Procedure Debridement Debridement -Clinical Debridement Subcutaneous Subcutaneous -Post Debridement Size (cm) - Length 0.6 0.7 -Post Debridement Size (cm) - Width 3.0 2.8 -Post Debridement Size (cm) - Depth 0.1 0.1 -Total Square Cm 1.80 1.96 -Wound/Ulcer Outcome Not Healed Not Healed -Ulcer Cleansing Rinsed/ Rinsed/ Irrigated with Irrigated with Saline Saline -Foul Odor after Cleansing No No -Bioengineered Tissue No -Bleeding Controlled with Pressure Pressure -Offloading No No -Treatment Response Procedure Procedure Tolerated Well Tolerated Well #1- LEFT GROIN- POST OP -Time 16:05 16:18 -Correct Patient Yes Yes -Correct Side, Site, Position Yes Yes -Correct Procedure Yes Yes -Procedure Performed Yes Yes -Type of Procedure Debridement Debridement -Clinical Debridement Subcutaneous Subcutaneous -Post Debridement Size (cm) - Length 29 3.4 -Post Debridement Size (cm) - Width 14.6 13.1 -Post Debridement Size (cm) - Depth 0.1 0.1 -Total Square Cm 423.4 44.54 -Wound/Ulcer Outcome Not Healed Not Healed -Ulcer Cleansing Rinsed/ Rinsed/ Irrigated with Irrigated with Saline Saline -Foul Odor after Cleansing No No -Bioengineered Tissue Yes No -Type of bioengineered Tissue [facility] -Expiration Date 06/01/23 -Product Lot Number [id number] -Percent Used 100 -Saline Lot Number [id number] -Topical Lidocaine (%) 4 -Bleeding Controlled with Pressure Pressure -Offloading No No -Treatment Response Procedure Procedure Tolerated Well Tolerated Well Pain Scale: 0-10 Numeric Is Patient Pain Free? Yes Yes Wound debrided: Left abdominal fold and groin ulcer Laterality: Left Type of Debridement: Excisional debridement Anesthesia Used: 5% Lidocaine Gel Depth: in the subcutaneous layer Percentage of wound debrided: 100 Instrument Used: 5mm curette Tissue Removed: Slough and devitalized tissue Severity: Fat Layer Exposed Amount of bleeding with debridement: Mild Bleeding Controlled with: Pressure Patient tolerated procedure well Assessment/Plan Assessment: Nonhealing postsurgical wound left groin status post surgical excision of necrotizing fasciitis. Bilateral lower extremity edema. Morbid obesity. Type 2 diabetes mellitus Plan: The patient was seen and examined at the wound center today and was updated on the plan of care. A subcutaneous debridement was performed today. The patient tolerated the procedure well. The patients wound care will consist of: Aquasol extra change daily and as needed cover with gauze. Wound cultures were reviewed prior and negative. Baseline bloodwork reviewed which demonstrated a slightly low pre-albumin and patient was advised to use Glucerna or high-protein with meals. Repeat lab work WNL. Prealbumin WNL now. Previous records were requested for continuity of care. Patient educated on the importance of diet on wound healing and instructed to increase protein and vitamin C intake. Patient verbalized understanding. Plastic surgery consultation - no surgery indicated. Did discuss with patient the importance of blood sugar control in wound healing, recent A1C in 02/2018 was 6.1. Patient to follow-up in 1 week or sooner if needed. Patient is on a complex wound plan. This note was generated with [employer] dictation software. It may contain incorrect words, spelling, and punctuation that were not noted in checking the note before signing. Code Visit 111xxx-113xx: [id number] Jessica subq tissue 20 sq cm/<
[2018-07-10 15:50] VITALS: BP 137/82; PULSE 84; RESP 20; TEMP 35.9
--- NOTE | 2018-07-10 16:41 | PCM.WC.PN ---
(1) Skin ulcer of abdominal wall with fat layer exposed Status: Acute Code(s): L98.492 - Non-pressure chronic ulcer of skin of other sites with fat layer exposed Comment: left abdominal fold (2) Non-healing surgical wound of left groin Status: Acute Qualifiers: Code(s): T81.89XA - Other complications of procedures, not elsewhere classified, initial encounter (3) History of necrotising fasciitis Status: Acute Code(s): Z87.39 - Personal history of other diseases of the musculoskeletal system and connective tissue (4) Lymphedema of both lower extremities Status: Acute Code(s): I89.0 - Lymphedema, not elsewhere classified (5) Morbid obesity Status: Acute Code(s): E66.01 - Morbid (severe) obesity due to excess calories (6) Type 2 diabetes mellitus Status: Acute Qualifiers: Code(s): E11.9 - Type 2 diabetes mellitus without complications Type of Wound Date of Service: 07/10/18 Chief Complaint: Nonhealing wound status post surgical excision of necrotizing fasciitis left groin History of Wound: 46-year-old white male who presents to the wound healing center today with complaint of left groin ulceration status post surgical excision of necrotizing fasciitis. He is a past medical history which is significant for that of type 2 diabetes mellitus, gout, diabetic neuropathy, schizophrenia, bilateral lymphedema, and schizophrenia. The patient states that what initially started as a pimple in his left groin progressed to necrotizing fasciitis and he had to have this surgically debrided in April 2017. He was admitted to [facility] for 2 weeks and then [facility] for 6 weeks afterwards. He states that the groin ulcer which extends to his left lower abdomen has been slowly improving and he has been doing daily Aquacel AG dressings with an ABD for the drainage. He does state that he has had 3 wound vacs in the past which were unable to be utilized due to the location of his wound. He denies any foul-smelling discharge or systemic signs of infection at this time. The patient otherwise denies any fever, chills, nausea, vomiting, shortness of breath, chest pain or pressure, palpitations, orthopnea, syncope or presyncopal episodes. Progress of Wound: Wounds are stable at this time, wound beds are moist and clean and without signs of gross infection at this time, still having delayed wound healing. Maceration has resolved. There is a bridge of skin that has epithelialized and now made into 2 separate wounds wound 1 left groin and wound to left lower abdominal fold. Patient continues to increase his oral protein supplementation with whey protein. Continues to have small amount of serosanguineous drainage from left groin wound. The patient otherwise denies any fever, chills, nausea, vomiting, shortness of breath, chest pain or pressure, palpitations, orthopnea, lower extremity edema, syncope or presyncopal episodes. - Physical Exam Vital Signs Temp Pulse Resp BP 96.6 F L 84 20 H 137/82 H 07/10/18 15:50 07/10/18 15:50 07/10/18 15:50 07/10/18 15:50 General: Alert, Oriented x3, Cooperative, No apparent distress HEENT: Atraumatic Oral: Moist Mucosa Lungs: Clear to auscultation Cardiovascular: Regular rate, Regular Rhythm Abdomen: Soft, Non Tender, Obese Extremities: No clubbing, No cyanosis, No edema Skin: Ulcer/ Wound - ulceration to left groin and abdominal fold with adherant slough, otherwise no signs of infection at this time Neurological: Neuro grossly intact Psych/Mental Status: Normal Affect, Appropriate, Alert and oriented to time, place, person, mood and affect Debridement Note Post-Debridement Measurements/Treatment WC - Nurse 2 - General Ulcer CM Notes Start: 06/26/18 15:27 Freq: Status: Active Protocol: Activity Type Activity Date Activity User E-Sign Co-Sign Detail Recorded Client Recorded Date Recorded By Document 06/26/18 16:02 AN [id number] 06/26/18 16:13 AN Document 07/03/18 16:13 AN [id number] 07/03/18 16:20 AN Document 07/10/18 16:08 DL [id number] 07/10/18 16:14 DL 06/26/18 07/03/18 07/10/18 16:02 16:13 16:08 Wound Center Nurse 2 #2 Left Abdominal Fold -Time 16:04 16:17 16:13 -Correct Patient Yes Yes Yes -Correct Side, Site, Position Yes Yes Yes -Correct Procedure Yes Yes Yes -Procedure Performed Yes Yes Yes -Type of Procedure Debridement Debridement Debridement -Clinical Debridement Subcutaneous Subcutaneous Subcutaneous -Post Debridement Size (cm) - Length 0.6 0.7 0.7 -Post Debridement Size (cm) - Width 3.0 2.8 2.8 -Post Debridement Size (cm) - Depth 0.1 0.1 0.1 -Total Square Cm 1.80 1.96 1.96 -Wound/Ulcer Outcome Not Healed Not Healed -Ulcer Cleansing Rinsed/ Rinsed/ Irrigated with Irrigated with Saline Saline -Foul Odor after Cleansing No No -Bioengineered Tissue No -Bleeding Controlled with Pressure Pressure -Offloading No No -Treatment Response Procedure Procedure Tolerated Well Tolerated Well #1- LEFT GROIN- POST OP -Time 16:05 16:18 16:14 -Correct Patient Yes Yes Yes -Correct Side, Site, Position Yes Yes Yes -Correct Procedure Yes Yes Yes -Procedure Performed Yes Yes Yes -Type of Procedure Debridement Debridement Debridement -Clinical Debridement Subcutaneous Subcutaneous Subcutaneous -Post Debridement Size (cm) - Length 29 3.4 3.4 -Post Debridement Size (cm) - Width 14.6 13.1 13.1 -Post Debridement Size (cm) - Depth 0.1 0.1 0.1 -Total Square Cm 423.4 44.54 44.54 -Wound/Ulcer Outcome Not Healed Not Healed -Ulcer Cleansing Rinsed/ Rinsed/ Irrigated with Irrigated with Saline Saline -Foul Odor after Cleansing No No -Bioengineered Tissue Yes No -Type of bioengineered Tissue NU-SHIELD -Expiration Date 06/01/23 -Product Lot Number [id number] -Percent Used 100 -Saline Lot Number [id number] -Topical Lidocaine (%) 4 -Bleeding Controlled with Pressure Pressure -Offloading No No -Treatment Response Procedure Procedure Tolerated Well Tolerated Well Pain Scale: 0-10 Numeric Is Patient Pain Free? Yes Yes Wound debrided: left abdominal fold and left groin ulcer Laterality: Left Type of Debridement: Excisional debridement Anesthesia Used: 5% Lidocaine Gel Depth: in the subcutaneous layer Percentage of wound debrided: 100 Instrument Used: 5mm curette Tissue Removed: slough and devitalized tissue Severity: Fat Layer Exposed Amount of bleeding with debridement: Mild Bleeding Controlled with: Pressure Patient tolerated procedure well Assessment/Plan Assessment: Nonhealing postsurgical wound left groin status post surgical excision of necrotizing fasciitis. Bilateral lower extremity edema. Morbid obesity. Type 2 diabetes mellitus Plan: The patient was seen and examined at the wound center today and was updated on the plan of care. A subcutaneous debridement was performed today. The patient tolerated the procedure well. The patients wound care will consist of: Aquacell extra change daily and as needed cover with gauze. Wound cultures were reviewed prior and negative. Baseline bloodwork reviewed which demonstrated a slightly low pre-albumin and patient was advised to use Glucerna or high-protein with meals. Repeat lab work WNL. Prealbumin WNL now. Previous records were requested for continuity of care. Patient educated on the importance of diet on wound healing and instructed to increase protein and vitamin C intake. Patient verbalized understanding. Plastic surgery consultation - no surgery indicated. Did discuss with patient the importance of blood sugar control in wound healing, recent A1C in 02/2018 was 6.1. Patient to follow-up in 1 week or sooner if needed. Patient is on a complex wound plan. This note was generated with [employer] dictation software. It may contain incorrect words, spelling, and punctuation that were not noted in checking the note before signing. Code Visit [id number]: [id number] Jessica subq tissue 20 sq cm/<
--- NOTE | 2018-07-16 16:46 | PN.PCM_ITS ---
(1) Skin ulcer of abdominal wall with fat layer exposed Status: Acute Code(s): L98.492 - Non-pressure chronic ulcer of skin of other sites with fat layer exposed Comment: left abdominal fold (2) Non-healing surgical wound of left groin Status: Acute Qualifiers: Code(s): T81.89XA - Other complications of procedures, not elsewhere classified, initial encounter (3) History of necrotising fasciitis Status: Acute Code(s): Z87.39 - Personal history of other diseases of the musculoskeletal system and connective tissue (4) Lymphedema of both lower extremities Status: Acute Code(s): I89.0 - Lymphedema, not elsewhere classified (5) Morbid obesity Status: Acute Code(s): E66.01 - Morbid (severe) obesity due to excess calories (6) Type 2 diabetes mellitus Status: Acute Qualifiers: Code(s): E11.9 - Type 2 diabetes mellitus without complications Type of Wound Date of Service: 07/10/18 Chief Complaint: Nonhealing wound status post surgical excision of necrotizing fasciitis left groin History of Wound: 46-year-old white male who presents to the wound healing center today with complaint of left groin ulceration status post surgical excision of necrotizing fasciitis. He is a past medical history which is significant for that of type 2 diabetes mellitus, gout, diabetic neuropathy, schizophrenia, bilateral lymphedema, and schizophrenia. The patient states that what initially started as a pimple in his left groin progressed to necrotizing fasciitis and he had to have this surgically debrided in April 2017. He was admitted to [facility] for 2 weeks and then [facility] for 6 weeks afterwards. He states that the groin ulcer which extends to his left lower abdomen has been slowly improving and he has been doing daily Aquacel AG dressings with an ABD for the drainage. He does state that he has had 3 wound vacs in the past which were unable to be utilized due to the location of his wound. He denies any foul-smelling discharge or systemic signs of infection at this time. The patient otherwise denies any fever, chills, nausea, vomiting, shortness of breath, chest pain or pressure, palpitations, orthopnea, syncope or presyncopal episodes. Progress of Wound: Wounds are stable at this time, wound beds are moist and clean and without signs of gross infection at this time, still having delayed wound healing. Maceration has resolved. There is a bridge of skin that has epithelialized and now made into 2 separate wounds wound 1 left groin and wound to left lower abdominal fold. Patient continues to increase his oral protein supplementation with whey protein. Continues to have small amount of serosan guineous drainage from left groin wound. The patient otherwise denies any fever, chills, nausea, vomiting, shortness of breath, chest pain or pressure, palpitations, orthopnea, lower extremity edema, syncope or presyncopal episodes. - Physical Exam Vital Signs Temp Pulse Resp BP 96.6 F L 84 20 H 137/82 H 07/10/18 15:50 07/10/18 15:50 07/10/18 15:50 07/10/18 15:50 General: Alert, Oriented x3, Cooperative, No apparent distress HEENT: Atraumatic Oral: Moist Mucosa Lungs: Clear to auscultation Cardiovascular: Regular rate, Regular Rhythm Abdomen: Soft, Non Tender, Obese Extremities: No clubbing, No cyanosis, No edema Skin: Ulcer/ Wound - ulceration to left groin and abdominal fold with adherant slough, otherwise no signs of infection at this time Neurological: Neuro grossly intact Psych/Mental Status: Normal Affect, Appropriate, Alert and oriented to time, place, person, mood and affect Debridement Note Post-Debridement Measurements/Treatment WC - Nurse 2 - General Ulcer CM Notes Start: 06/26/18 15:27 Freq: Status: Active Protocol: Activity Type Activity Date Activity User E-Sign Co-Sign Detail Recorded Client Recorded Date Recorded By Document 06/26/18 16:02 AN [id number] 06/26/18 16:13 AN Document 07/03/18 16:13 AN [id number] 07/03/18 16:20 AN Document 07/10/18 16:08 DL [id number] 07/10/18 16:14 DL 06/26/18 07/03/18 07/10/18 16:02 16:13 16:08 Wound Center Nurse 2 #2 Left Abdominal Fold -Time 16:04 16:17 16:13 -Correct Patient Yes Yes Yes -Correct Side, Site, Position Yes Yes Yes -Correct Procedure Yes Yes Yes -Procedure Performed Yes Yes Yes -Type of Procedure Debridement Debridement Debridement -Clinical Debridement Subcutaneous Subcutaneous Subcutaneous -Post Debridement Size (cm) - Length 0.6 0.7 0.7 -Post Debridement Size (cm) - Width 3.0 2.8 2.8 -Post Debridement Size (cm) - Depth 0.1 0.1 0.1 -Total Square Cm 1.80 1.96 1.96 -Wound/Ulcer Outcome Not Healed Not Healed -Ulcer Cleansing Rinsed/ Rinsed/ Irrigated with Irrigated with Saline Saline -Foul Odor after Cleansing No No -Bioengineered Tissue No -Bleeding Controlled with Pressure Pressure -Offloading No No -Treatment Response Procedure Procedure Tolerated Well Tolerated Well #1- LEFT GROIN- POST OP -Time 16:05 16:18 16:14 -Correct Patient Yes Yes Yes -Correct Side, Site, Position Yes Yes Yes -Correct Procedure Yes Yes Yes -Procedure Performed Yes Yes Yes -Type of Procedure Debridement Debridement Debridement -Clinical Debridement Subcutaneous Subcutaneous Subcutaneous -Post Debridement Size (cm) - Length 29 3.4 3.4 -Post Debridement Size (cm) - Width 14.6 13.1 13.1 -Post Debridement Size (cm) - Depth 0.1 0.1 0.1 -Total Square Cm 423.4 44.54 44.54 -Wound/Ulcer Outcome Not Healed Not Healed -Ulcer Cleansing Rinsed/ Rinsed/ Irrigated with Irrigated with Saline Saline -Foul Odor after Cleansing No No -Bioengineered Tissue Yes No -Type of bioengineered Tissue NU-SHIELD -Expiration Date 06/01/23 -Product Lot Number [id number] -Percent Used 100 -Saline Lot Number [id number] -Topical Lidocaine (%) 4 -Bleeding Controlled with Pressure Pressure -Offloading No No -Treatment Response Procedure Procedure Tolerated Well Tolerated Well Pain Scale: 0-10 Numeric Is Patient Pain Free? Yes Yes Wound debrided: left abdominal fold and left groin ulcer Laterality: Left Type of Debridement: Excisional debridement Anesthesia Used: 5% Lidocaine Gel Depth: in the subcutaneous layer Percentage of wound debrided: 100 Instrument Used: 5mm curette Tissue Removed: slough and devitalized tissue Severity: Fat Layer Exposed Amount of bleeding with debridement: Mild Bleeding Controlled with: Pressure Patient tolerated procedure well Assessment/Plan Assessment: Nonhealing postsurgical wound left groin status post surgical excision of necrotizing fasciitis. Bilateral lower extremity edema. Morbid obesity. Type 2 diabetes mellitus Plan: The patient was seen and examined at the wound center today and was updated on the plan of care. A subcutaneous debridement was performed today. The patient tolerated the procedure well. The patients wound care will consist of: Aquacell extra change daily and as needed cover with gauze. Wound cultures were reviewed prior and negative. Baseline bloodwork reviewed which demonstrated a slightly low pre-albumin and patient was advised to use Glucerna or high-protein with meals. Repeat lab work WNL. Prealbumin WNL now. Previous records were requested for continuity of care. Patient educated on the importance of diet on wound healing and instructed to increase protein and vitamin C intake. Patient verbalized understanding. Plastic surgery consultation - no surgery indicated. Did discuss with patient the importance of blood sugar control in wound healing, recent A1C in 02/2018 was 6.1. Patient to follow-up in 1 week or sooner if needed. Patient is on a complex wound plan. This note was generated with [employer] dictation software. It may contain incorrect words, spelling, and punctuation that were not noted in checking the note before signing. Code Visit 111xxx-113xx: [id number] Jessica subq tissue 20 sq cm/<
[2018-07-17 15:09] VITALS: BP 153/89; PULSE 88; RESP 16; TEMP 36.5
--- NOTE | 2018-07-17 20:36 | PCM.WC.PN ---
(1) Skin ulcer of abdominal wall with fat layer exposed Status: Acute Code(s): L98.492 - Non-pressure chronic ulcer of skin of other sites with fat layer exposed Comment: left abdominal fold (2) Non-healing surgical wound of left groin Status: Acute Qualifiers: Code(s): T81.89XA - Other complications of procedures, not elsewhere classified, initial encounter (3) History of necrotising fasciitis Status: Acute Code(s): Z87.39 - Personal history of other diseases of the musculoskeletal system and connective tissue (4) Lymphedema of both lower extremities Status: Acute Code(s): I89.0 - Lymphedema, not elsewhere classified (5) Morbid obesity Status: Acute Code(s): E66.01 - Morbid (severe) obesity due to excess calories (6) Type 2 diabetes mellitus Status: Acute Qualifiers: Code(s): E11.9 - Type 2 diabetes mellitus without complications Type of Wound Date of Service: 07/17/18 Chief Complaint: Nonhealing wound status post surgical excision of necrotizing fasciitis left groin History of Wound: 46-year-old white male who presents to the wound healing center today with complaint of left groin ulceration status post surgical excision of necrotizing fasciitis. He is a past medical history which is significant for that of type 2 diabetes mellitus, gout, diabetic neuropathy, schizophrenia, bilateral lymphedema, and schizophrenia. The patient states that what initially started as a pimple in his left groin progressed to necrotizing fasciitis and he had to have this surgically debrided in April 2017. He was admitted to [facility] for 2 weeks and then [facility] for 6 weeks afterwards. He states that the groin ulcer which extends to his left lower abdomen has been slowly improving and he has been doing daily Aquacel AG dressings with an ABD for the drainage. He does state that he has had 3 wound vacs in the past which were unable to be utilized due to the location of his wound. He denies any foul-smelling discharge or systemic signs of infection at this time. The patient otherwise denies any fever, chills, nausea, vomiting, shortness of breath, chest pain or pressure, palpitations, orthopnea, syncope or presyncopal episodes. Progress of Wound: Wounds are stable at this time, left abdominal fold ulcer has worsened d/t maceration, wound beds are moist and clean and without signs of gross infection at this time, still having delayed wound healing. There is a bridge of skin that has epithelialized and now made into 2 separate wounds wound 1 left groin and wound to left lower abdominal fold. Patient continues to increase his oral protein supplementation with whey protein. Continues to have moderate amount of serosanguineous drainage from left groin wound with some surrounding tissue maceration. The patient otherwise denies any fever, chills, nausea, vomiting, shortness of breath, chest pain or pressure, palpitations, orthopnea, lower extremity edema, syncope or presyncopal episodes. - Physical Exam Vital Signs Temp Pulse Resp BP 97.7 F L 88 16 153/89 H 07/17/18 15:09 07/17/18 15:09 07/17/18 15:09 07/17/18 15:09 General: Alert, Oriented x3, Cooperative, No apparent distress HEENT: Atraumatic Oral: Moist Mucosa Lungs: Clear to auscultation Cardiovascular: Regular rate, Regular Rhythm Abdomen: Obese Extremities: No clubbing, No cyanosis Skin: Ulcer/ Wound - Ulceration to left abdominal fold and left groin with adherent slough, macerated wound edges due to moderate amount of serosanguineous drainage, no other signs of infection at this time. Neurological: Neuro grossly intact Psych/Mental Status: Normal Affect, Appropriate, Alert and oriented to time, place, person, mood and affect Debridement Note Post-Debridement Measurements/Treatment WC - Nurse 2 - General Ulcer CM Notes Start: 06/26/18 15:27 Freq: Status: Active Protocol: Activity Type Activity Date Activity User E-Sign Co-Sign Detail Recorded Client Recorded Date Recorded By Document 06/26/18 16:02 AN [id number] 06/26/18 16:13 AN Document 07/03/18 16:13 AN [id number] 07/03/18 16:20 AN Document 07/10/18 16:08 DL [id number] 07/10/18 16:14 DL Document 07/17/18 16:06 AN [id number] 07/17/18 16:09 AN 06/26/18 07/03/18 07/10/18 16:02 16:13 16:08 Wound Center Nurse 2 #2 Left Abdominal Fold -Time 16:04 16:17 16:13 -Correct Patient Yes Yes Yes -Correct Side, Site, Position Yes Yes Yes -Correct Procedure Yes Yes Yes -Procedure Performed Yes Yes Yes -Type of Procedure Debridement Debridement Debridement -Clinical Debridement Subcutaneous Subcutaneous Subcutaneous -Post Debridement Size (cm) - Length 0.6 0.7 0.7 -Post Debridement Size (cm) - Width 3.0 2.8 2.8 -Post Debridement Size (cm) - Depth 0.1 0.1 0.1 -Total Square Cm 1.80 1.96 1.96 -Wound/Ulcer Outcome Not Healed Not Healed -Ulcer Cleansing Rinsed/ Rinsed/ Irrigated with Irrigated with Saline Saline -Foul Odor after Cleansing No No -Bioengineered Tissue No -Bleeding Controlled with Pressure Pressure -Offloading No No -Treatment Response Procedure Procedure Tolerated Well Tolerated Well #1- LEFT GROIN- POST OP -Time 16:05 16:18 16:14 -Correct Patient Yes Yes Yes -Correct Side, Site, Position Yes Yes Yes -Correct Procedure Yes Yes Yes -Procedure Performed Yes Yes Yes -Type of Procedure Debridement Debridement Debridement -Clinical Debridement Subcutaneous Subcutaneous Subcutaneous -Post Debridement Size (cm) - Length 29 3.4 3.4 -Post Debridement Size (cm) - Width 14.6 13.1 13.1 -Post Debridement Size (cm) - Depth 0.1 0.1 0.1 -Total Square Cm 423.4 44.54 44.54 -Wound/Ulcer Outcome Not Healed Not Healed -Ulcer Cleansing Rinsed/ Rinsed/ Irrigated with Irrigated with Saline Saline -Foul Odor after Cleansing No No -Bioengineered Tissue Yes No -Type of bioengineered Tissue NU-SHIELD -Expiration Date 06/01/23 -Product Lot Number [id number] -Percent Used 100 -Saline Lot Number [id number] -Topical Lidocaine (%) 4 -Bleeding Controlled with Pressure Pressure -Offloading No No -Treatment Response Procedure Procedure Tolerated Well Tolerated Well Pain Scale: 0-10 Numeric Is Patient Pain Free? Yes Yes 07/17/18 16:06 Wound Center Nurse 2 #2 Left Abdominal Fold -Time 16:07 -Correct Patient Yes -Correct Side, Site, Position Yes -Correct Procedure Yes -Procedure Performed Yes -Type of Procedure Debridement -Clinical Debridement Subcutaneous -Post Debridement Size (cm) - Length 0.5 -Post Debridement Size (cm) - Width 4.9 -Post Debridement Size (cm) - Depth 0.1 -Total Square Cm 2.45 -Wound/Ulcer Outcome Not Healed -Ulcer Cleansing Rinsed/ Irrigated with Saline -Foul Odor after Cleansing No -Bioengineered Tissue No -Bleeding Controlled with Pressure -Offloading No -Treatment Response Procedure Tolerated Well #1- LEFT GROIN- POST OP -Time 16:08 -Correct Patient Yes -Correct Side, Site, Position Yes -Correct Procedure Yes -Procedure Performed Yes -Type of Procedure Debridement -Clinical Debridement Subcutaneous -Post Debridement Size (cm) - Length 2.7 -Post Debridement Size (cm) - Width 14 -Post Debridement Size (cm) - Depth 0.1 -Total Square Cm 37.8 -Wound/Ulcer Outcome Not Healed -Ulcer Cleansing Rinsed/ Irrigated with Saline -Foul Odor after Cleansing No -Bioengineered Tissue No -Type of bioengineered Tissue -Expiration Date -Product Lot Number -Percent Used -Saline Lot Number -Topical Lidocaine (%) -Bleeding Controlled with Pressure -Offloading No -Treatment Response Procedure Tolerated Well Pain Scale: 0-10 Numeric Is Patient Pain Free? Yes Wound debrided: Left abdominal fold and groin ulcer Laterality: Left Type of Debridement: Excisional debridement Anesthesia Used: 5% Lidocaine Gel Depth: in the subcutaneous layer Percentage of wound debrided: 100 Instrument Used: 5mm curette Tissue Removed: Slough and devitalized tissue Severity: Fat Layer Exposed Amount of bleeding with debridement: Mild Bleeding Controlled with: Pressure Patient tolerated procedure well Assessment/Plan Assessment: Nonhealing postsurgical wound left groin status post surgical excision of necrotizing fasciitis. Bilateral lower extremity edema. Morbid obesity. Type 2 diabetes mellitus Plan: The patient was seen and examined at the wound center today and was updated on the plan of care. A subcutaneous debridement was performed today. The patient tolerated the procedure well. The patients wound care will consist of: Aquacell extra and Hydrofera Blue to help with heavy drainage to be change daily and as needed cover with gauze. Wound cultures were reviewed prior and negative. Baseline bloodwork reviewed which demonstrated a slightly low pre-albumin and patient was advised to use Glucerna or high-protein with meals. Repeat lab work WNL. Prealbumin WNL now. Previous records were requested for continuity of care. Patient educated on the importance of diet on wound healing and instructed to increase protein and vitamin C intake. Patient verbalized understanding. Plastic surgery consultation - no surgery indicated. Did discuss with patient the importance of blood sugar control in wound healing, recent A1C in 02/2018 was 6.1. Patient to follow-up in 1 week or sooner if needed. Patient is on a complex wound plan. This note was generated with [employer] software. It may contain incorrect words, spelling, and punctuation that were not noted in checking the note before signing. Code Visit [id number]: [id number] Jessica subq tissue 20 sq cm/<
--- NOTE | 2018-07-23 10:39 | PN.PCM_ITS ---
(1) Skin ulcer of abdominal wall with fat layer exposed Status: Acute Code(s): L98.492 - Non-pressure chronic ulcer of skin of other sites with fat layer exposed Comment: left abdominal fold (2) Non-healing surgical wound of left groin Status: Acute Qualifiers: Code(s): T81.89XA - Other complications of procedures, not elsewhere classified, initial encounter (3) History of necrotising fasciitis Status: Acute Code(s): Z87.39 - Personal history of other diseases of the musculoskeletal system and connective tissue (4) Lymphedema of both lower extremities Status: Acute Code(s): I89.0 - Lymphedema, not elsewhere classified (5) Morbid obesity Status: Acute Code(s): E66.01 - Morbid (severe) obesity due to excess calories (6) Type 2 diabetes mellitus Status: Acute Qualifiers: Code(s): E11.9 - Type 2 diabetes mellitus without complications Type of Wound Date of Service: 07/17/18 Chief Complaint: Nonhealing wound status post surgical excision of necrotizing fasciitis left groin History of Wound: 46-year-old white male who presents to the wound healing center today with complaint of left groin ulceration status post surgical excision of necrotizing fasciitis. He is a past medical history which is significant for that of type 2 diabetes mellitus, gout, diabetic neuropathy, schizophrenia, bilateral lymphedema, and schizophrenia. The patient states that what initially started as a pimple in his left groin progressed to necrotizing fasciitis and he had to have this surgically debrided in April 2017. He was admitted to [facility] for 2 weeks and then [facility] for 6 weeks afterwards. He states that the groin ulcer which extends to his left lower abdomen has been slowly improving and he has been doing daily Aquacel AG dressings with an ABD for the drainage. He does state that he has had 3 wound vacs in the past which were unable to be utilized due to the location of his wound. He denies any foul-smelling discharge or systemic signs of infection at this time. The patient otherwise denies any fever, chills, nausea, vomiting, shortness of breath, chest pain or pressure, palpitations, orthopnea, syncope or presyncopal episodes. Progress of Wound: Wounds are stable at this time, left abdominal fold ulcer has worsened d/t maceration, wound beds are moist and clean and without signs of gross infection at this time, still having delayed wound healing. There is a bridge of skin that has epithelialized and now made into 2 separate wounds wound 1 left groin and wound to left lower abdominal fold. Patient continues to increase his oral protein supplementation with whey protein. Continues to have moderate amount of serosanguineous drainage from left groin wound with some surrounding tissue maceration. The patient otherwise denies any fever, chills, nausea, vomiting, shortness of breath, chest pain or pressure, palpitations, orthopnea, lower extremity edema, syncope or presyncopal episodes. - Physical Exam Vital Signs Temp Pulse Resp BP 97.7 F L 88 16 153/89 H 07/17/18 15:09 07/17/18 15:09 07/17/18 15:09 07/17/18 15:09 General: Alert, Oriented x3, Cooperative, No apparent distress HEENT: Atraumatic Oral: Moist Mucosa Lungs: Clear to auscultation Cardiovascular: Regular rate, Regular Rhythm Abdomen: Obese Extremities: No clubbing, No cyanosis Skin: Ulcer/ Wound - Ulceration to left abdominal fold and left groin with ad herent slough, macerated wound edges due to moderate amount of serosanguineous drainage, no other signs of infection at this time. Neurological: Neuro grossly intact Psych/Mental Status: Normal Affect, Appropriate, Alert and oriented to time, place, person, mood and affect Debridement Note Post-Debridement Measurements/Treatment WC - Nurse 2 - General Ulcer CM Notes Start: 06/26/18 15:27 Freq: Status: Active Protocol: Activity Type Activity Date Activity User E-Sign Co-Sign Detail Recorded Client Recorded Date Recorded By Document 06/26/18 16:02 AN [id number] 06/26/18 16:13 AN Document 07/03/18 16:13 AN [id number] 07/03/18 16:20 AN Document 07/10/18 16:08 DL [id number] 07/10/18 16:14 DL Document 07/17/18 16:06 AN [id number] 07/17/18 16:09 AN 06/26/18 07/03/18 07/10/18 16:02 16:13 16:08 Wound Center Nurse 2 #2 Left Abdominal Fold -Time 16:04 16:17 16:13 -Correct Patient Yes Yes Yes -Correct Side, Site, Position Yes Yes Yes -Correct Procedure Yes Yes Yes -Procedure Performed Yes Yes Yes -Type of Procedure Debridement Debridement Debridement -Clinical Debridement Subcutaneous Subcutaneous Subcutaneous -Post Debridement Size (cm) - Length 0.6 0.7 0.7 -Post Debridement Size (cm) - Width 3.0 2.8 2.8 -Post Debridement Size (cm) - Depth 0.1 0.1 0.1 -Total Square Cm 1.80 1.96 1.96 -Wound/Ulcer Outcome Not Healed Not Healed -Ulcer Cleansing Rinsed/ Rinsed/ Irrigated with Irrigated with Saline Saline -Foul Odor after Cleansing No No -Bioengineered Tissue No -Bleeding Controlled with Pressure Pressure -Offloading No No -Treatment Response Procedure Procedure Tolerated Well Tolerated Well #1- LEFT GROIN- POST OP -Time 16:05 16:18 16:14 -Correct Patient Yes Yes Yes -Correct Side, Site, Position Yes Yes Yes -Correct Procedure Yes Yes Yes -Procedure Performed Yes Yes Yes -Type of Procedure Debridement Debridement Debridement -Clinical Debridement Subcutaneous Subcutaneous Subcutaneous -Post Debridement Size (cm) - Length 29 3.4 3.4 -Post Debridement Size (cm) - Width 14.6 13.1 13.1 -Post Debridement Size (cm) - Depth 0.1 0.1 0.1 -Total Square Cm 423.4 44.54 44.54 -Wound/Ulcer Outcome Not Healed Not Healed -Ulcer Cleansing Rinsed/ Rinsed/ Irrigated with Irrigated with Saline Saline -Foul Odor after Cleansing No No -Bioengineered Tissue Yes No -Type of bioengineered Tissue NU-SHIELD -Expiration Date 06/01/23 -Product Lot Number [id number] -Percent Used 100 -Saline Lot Number [id number] -Topical Lidocaine (%) 4 -Bleeding Controlled with Pressure Pressure -Offloading No No -Treatment Response Procedure Procedure Tolerated Well Tolerated Well Pain Scale: 0-10 Numeric Is Patient Pain Free? Yes Yes 07/17/18 16:06 Wound Center Nurse 2 #2 Left Abdominal Fold -Time 16:07 -Correct Patient Yes -Correct Side, Site, Position Yes -Correct Procedure Yes -Procedure Performed Yes -Type of Procedure Debridement -Clinical Debridement Subcutaneous -Post Debridement Size (cm) - Length 0.5 -Post Debridement Size (cm) - Width 4.9 -Post Debridement Size (cm) - Depth 0.1 -Total Square Cm 2.45 -Wound/Ulcer Outcome Not Healed -Ulcer Cleansing Rinsed/ Irrigated with Saline -Foul Odor after Cleansing No -Bioengineered Tissue No -Bleeding Controlled with Pressure -Offloading No -Treatment Response Procedure Tolerated Well #1- LEFT GROIN- POST OP -Time 16:08 -Correct Patient Yes -Correct Side, Site, Position Yes -Correct Procedure Yes -Procedure Performed Yes -Type of Procedure Debridement -Clinical Debridement Subcutaneous -Post Debridement Size (cm) - Length 2.7 -Post Debridement Size (cm) - Width 14 -Post Debridement Size (cm) - Depth 0.1 -Total Square Cm 37.8 -Wound/Ulcer Outcome Not Healed -Ulcer Cleansing Rinsed/ Irrigated with Saline -Foul Odor after Cleansing No -Bioengineered Tissue No -Type of bioengineered Tissue -Expiration Date -Product Lot Number -Percent Used -Saline Lot Number -Topical Lidocaine (%) -Bleeding Controlled with Pressure -Offloading No -Treatment Response Procedure Tolerated Well Pain Scale: 0-10 Numeric Is Patient Pain Free? Yes Wound debrided: Left abdominal fold and groin ulcer Laterality: Left Type of Debridement: Excisional debridement Anesthesia Used: 5% Lidocaine Gel Depth: in the subcutaneous layer Percentage of wound debrided: 100 Instrument Used: 5mm curette Tissue Removed: Slough and devitalized tissue Severity: Fat Layer Exposed Amount of bleeding with debridement: Mild Bleeding Controlled with: Pressure Patient tolerated procedure well Assessment/Plan Assessment: Nonhealing postsurgical wound left groin status post surgical excision of necrotizing fasciitis. Bilateral lower extremity edema. Morbid obesity. Type 2 diabetes mellitus Plan: The patient was seen and examined at the wound center today and was updated on the plan of care. A subcutaneous debridement was performed today. The patient tolerated the procedure well. The patients wound care will consist of: Aquacell extra and Hydrofera Blue to help with heavy drainage to be change daily and as needed cover with gauze. Wound cultures were reviewed prior and negative. Baseline bloodwork reviewed which demonstrated a slightly low pre- albumin and patient was advised to use Glucerna or high-protein with meals. Repeat lab work WNL. Prealbumin WNL now. Previous records were requested for continuity of care. Patient educated on the importance of diet on wound healing and instructed to increase protein and vitamin C intake. Patient verbalized understanding. Plastic surgery consultation - no surgery indicated. Did discuss with patient the importance of blood sugar control in wound healing, recent A1C in 02/2018 was 6.1. Patient to follow-up in 1 week or sooner if needed. Patient is on a complex wound plan. This note was generated with [employer]ation software. It may contain incorrect words, spelling, and punctuation that were not noted in checking the note before signing. Code Visit 111xxx-[id number]: [id number] Jessica subq tissue 20 sq cm/<
== END 2018-07-20 23:59 ==
LOC: WC 15:30
PROVIDERS: Family Provider Family Medicine; PCP Family Medicine; Visit Provider Nurse Practitioner Family
DX: E11.622 Type 2 diabetes mellitus with other skin ulcer (principal); L98.492 Non-pressure chronic ulcer of skin of other sites with fat layer exposed; I89.0 Lymphedema, not elsewhere classified; E66.01 Morbid (severe) obesity due to excess calories; Z68.43 Body mass index [BMI] 50.0-59.9, adult; Z71.3 Dietary counseling and surveillance; R60.0 Localized edema; E11.42 Type 2 diabetes mellitus with diabetic polyneuropathy; Z87.39 Personal history of other diseases of the musculoskeletal system and connective tissue
CPT/HCPCS: 11042; 11045; 15271; Q4160

== ENCOUNTER 2018-08-14 15:30 | Outpatient (RCR) | payer MEDICARE, MEDICAID, SELFPAY ==
[2018-07-21 00:47] VITALS: BP 153/89; PULSE 88; RESP 16; TEMP 36.5
[2018-07-24 15:15] VITALS: BP 137/90; PULSE 98; RESP 18; TEMP 35.5
--- NOTE | 2018-07-24 20:19 | PCM.WC.PN ---
(1) Skin ulcer of abdominal wall with fat layer exposed Status: Acute Code(s): L98.492 - Non-pressure chronic ulcer of skin of other sites with fat layer exposed Comment: left abdominal fold (2) Non-healing surgical wound of left groin Status: Acute Qualifiers: Code(s): T81.89XA - Other complications of procedures, not elsewhere classified, initial encounter (3) History of necrotising fasciitis Status: Acute Code(s): Z87.39 - Personal history of other diseases of the musculoskeletal system and connective tissue (4) Lymphedema of both lower extremities Status: Acute Code(s): I89.0 - Lymphedema, not elsewhere classified (5) Morbid obesity Status: Acute Code(s): E66.01 - Morbid (severe) obesity due to excess calories (6) Type 2 diabetes mellitus Status: Acute Qualifiers: Code(s): E11.9 - Type 2 diabetes mellitus without complications Type of Wound Date of Service: 07/24/18 Chief Complaint: Nonhealing wound status post surgical excision of necrotizing fasciitis left groin History of Wound: 46-year-old white male who presents to the wound healing center today with complaint of left groin ulceration status post surgical excision of necrotizing fasciitis. He is a past medical history which is significant for that of type 2 diabetes mellitus, gout, diabetic neuropathy, schizophrenia, bilateral lymphedema, and schizophrenia. The patient states that what initially started as a pimple in his left groin progressed to necrotizing fasciitis and he had to have this surgically debrided in April 2017. He was admitted to [facility] for 2 weeks and then [facility] for 6 weeks afterwards. He states that the groin ulcer which extends to his left lower abdomen has been slowly improving and he has been doing daily Aquacel AG dressings with an ABD for the drainage. He does state that he has had 3 wound vacs in the past which were unable to be utilized due to the location of his wound. He denies any foul-smelling discharge or systemic signs of infection at this time. The patient otherwise denies any fever, chills, nausea, vomiting, shortness of breath, chest pain or pressure, palpitations, orthopnea, syncope or presyncopal episodes. Progress of Wound: Wounds are stable at this time, wound beds are moist and clean and without signs of gross infection at this time, still having delayed wound healing. Maceration has resolved,pt has done well with hydrofera blue. There is a bridge of skin that has epithelialized and now made into 2 separate wounds wound 1 left groin and wound to left lower abdominal fold. Patient continues to increase his oral protein supplementation with whey protein. Continues to have small amount of serosanguineous drainage from left groin wound. The patient otherwise denies any fever, chills, nausea, vomiting, shortness of breath, chest pain or pressure, palpitations, orthopnea, lower extremity edema, syncope or presyncopal episodes. - Physical Exam Vital Signs Temp Pulse Resp BP 96 F L 98 18 137/90 H 07/24/18 15:15 07/24/18 15:15 07/24/18 15:15 07/24/18 15:15 General: Alert, Oriented x3, Cooperative, No apparent distress HEENT: Atraumatic Lungs: Clear to auscultation Cardiovascular: Regular rate Abdomen: Soft, Non Tender, Obese Extremities: No clubbing, No cyanosis, No edema Skin: Ulcer/ Wound - Ulceration to left groin and left abdominal skin fold with adherent slough to wound bed, surrounding maceration has now resolved, moderate amount of serosanguineous drainage no odor or purulent drainage at this time Neurological: Neuro grossly intact Psych/Mental Status: Normal Affect, Appropriate, Alert and oriented to time, place, person, mood and affect Debridement Note Post-Debridement Measurements/Treatment WC - Nurse 2 - General Ulcer CM Notes Start: 07/24/18 15:15 Freq: Status: Active Protocol: Activity Type Activity Date Activity User E-Sign Co-Sign Detail Recorded Client Recorded Date Recorded By Document 07/24/18 15:34 AN [id number] 07/24/18 15:35 AN 07/24/18 15:34 Wound Center Nurse 2 #2 Left Abdominal Fold -Time 15:34 -Correct Patient Yes -Correct Side, Site, Position Yes -Correct Procedure Yes -Procedure Performed Yes -Type of Procedure Debridement -Clinical Debridement Subcutaneous -Post Debridement Size (cm) - Length 0.6 -Post Debridement Size (cm) - Width 3.0 -Post Debridement Size (cm) - Depth 0.1 -Total Square Cm 1.80 -Treatment Response Procedure Tolerated Well #1- LEFT GROIN- POST OP -Time 15:34 -Correct Patient Yes -Correct Side, Site, Position Yes -Correct Procedure Yes -Procedure Performed Yes -Type of Procedure Debridement -Clinical Debridement Subcutaneous -Post Debridement Size (cm) - Length 2.4 -Post Debridement Size (cm) - Width 14.5 -Post Debridement Size (cm) - Depth 0.1 -Total Square Cm 34.80 -Treatment Response Procedure Tolerated Well Pain Scale: 0-10 Numeric Is Patient Pain Free? Yes Wound debrided: Left abdominal fold ulcer Laterality: Left Type of Debridement: Excisional debridement Anesthesia Used: 5% Lidocaine Gel Depth: in the subcutaneous layer Percentage of wound debrided: 100 Instrument Used: 3mm curette Tissue Removed: Slough and devitalized tissue Severity: Fat Layer Exposed Amount of bleeding with debridement: Mild Bleeding Controlled with: Pressure Patient tolerated procedure well - Additional Wound Wound debrided: Left groin ulcer Laterality: Left Type of Debridement: Excisional debridement Anesthesia Used: 5% Lidocaine Gel Depth: in the subcutaneous layer Percentage of wound debrided: 100 Instrument Used: 5mm curette Tissue Removed: Slough and devitalized tissue Severity: Fat Layer Exposed Amount of bleeding with debridement: Mild Bleeding Controlled with: Pressure Patient tolerated procedure: Patient tolerated procedure well Assessment/Plan Assessment: Nonhealing postsurgical wound left groin status post surgical excision of necrotizing fasciitis. Bilateral lower extremity edema. Morbid obesity. Type 2 diabetes mellitus Plan: The patient was seen and examined at the wound center today and was updated on the plan of care. A subcutaneous debridement was performed today. The patient tolerated the procedure well. The patients wound care will consist of: hydrofera blue/Aquacell extra change daily and as needed cover with gauze. Wound cultures were reviewed prior and negative. Baseline bloodwork reviewed which demonstrated a slightly low pre-albumin and patient was advised to use Glucerna or high-protein with meals. Repeat lab work WNL. Prealbumin WNL now. Previous records were requested for continuity of care. Patient educated on the importance of diet on wound healing and instructed to increase protein and vitamin C intake. Patient verbalized understanding. Plastic surgery consultation - no surgery indicated. Did discuss with patient the importance of blood sugar control in wound healing, recent A1C in 02/2018 was 6.1. Patient to follow-up in 1 week or sooner if needed. Patient is on a complex wound plan. This note was generated with [employer] software. It may contain incorrect words, spelling, and punctuation that were not noted in checking the note before signing. Code Visit 111xxx-113xx: [id number] Jessica subq tissue 20 sq cm/<
--- NOTE | 2018-07-29 11:22 | PN.PCM_ITS ---
(1) Skin ulcer of abdominal wall with fat layer exposed Status: Acute Code(s): L98.492 - Non-pressure chronic ulcer of skin of other sites with fat layer exposed Comment: left abdominal fold (2) Non-healing surgical wound of left groin Status: Acute Qualifiers: Code(s): T81.89XA - Other complications of procedures, not elsewhere classified, initial encounter (3) History of necrotising fasciitis Status: Acute Code(s): Z87.39 - Personal history of other diseases of the musculoskeletal system and connective tissue (4) Lymphedema of both lower extremities Status: Acute Code(s): I89.0 - Lymphedema, not elsewhere classified (5) Morbid obesity Status: Acute Code(s): E66.01 - Morbid (severe) obesity due to excess calories (6) Type 2 diabetes mellitus Status: Acute Qualifiers: Code(s): E11.9 - Type 2 diabetes mellitus without complications Type of Wound Date of Service: 07/24/18 Chief Complaint: Nonhealing wound status post surgical excision of necrotizing fasciitis left groin History of Wound: 46-year-old white male who presents to the wound healing center today with complaint of left groin ulceration status post surgical excision of necrotizing fasciitis. He is a past medical history which is significant for that of type 2 diabetes mellitus, gout, diabetic neuropathy, schizophrenia, bilateral lymphedema, and schizophrenia. The patient states that what initially started as a pimple in his left groin progressed to necrotizing fasciitis and he had to have this surgically debrided in April 2017. He was admitted to [facility] for 2 weeks and then [facility] for 6 weeks afterwards. He states that the groin ulcer which extends to his left lower abdomen has been slowly improving and he has been doing daily Aquacel AG dressings with an ABD for the drainage. He does state that he has had 3 wound vacs in the past which were unable to be utilized due to the location of his wound. He denies any foul-smelling discharge or systemic signs of infection at this time. The patient otherwise denies any fever, chills, nausea, vomiting, shortness of breath, chest pain or pressure, palpitations, orthopnea, syncope or presyncopal episodes. Progress of Wound: Wounds are stable at this time, wound beds are moist and clean and without signs of gross infection at this time, still having delayed wound healing. Maceration has resolved,pt has done well with hydrofera blue. There is a bridge of skin that has epithelialized and now made into 2 separate wounds wound 1 left groin and wound to left lower abdominal fold. Patient continues to increase his oral protein supplementation with whey protein. Cont inues to have small amount of serosanguineous drainage from left groin wound. The patient otherwise denies any fever, chills, nausea, vomiting, shortness of breath, chest pain or pressure, palpitations, orthopnea, lower extremity edema, syncope or presyncopal episodes. - Physical Exam Vital Signs Temp Pulse Resp BP 96 F L 98 18 137/90 H 07/24/18 15:15 07/24/18 15:15 07/24/18 15:15 07/24/18 15:15 General: Alert, Oriented x3, Cooperative, No apparent distress HEENT: Atraumatic Lungs: Clear to auscultation Cardiovascular: Regular rate Abdomen: Soft, Non Tender, Obese Extremities: No clubbing, No cyanosis, No edema Skin: Ulcer/ Wound - Ulceration to left groin and left abdominal skin fold with adherent slough to wound bed, surrounding maceration has now resolved, moderate amount of serosanguineous drainage no odor or purulent drainage at this time Neurological: Neuro grossly intact Psych/Mental Status: Normal Affect, Appropriate, Alert and oriented to time, place, person, mood and affect Debridement Note Post-Debridement Measurements/Treatment WC - Nurse 2 - General Ulcer CM Notes Start: 07/24/18 15:15 Freq: Status: Active Protocol: Activity Type Activity Date Activity User E-Sign Co-Sign Detail Recorded Client Recorded Date Recorded By Document 07/24/18 15:34 AN [id number] 07/24/18 15:35 AN 07/24/18 15:34 Wound Center Nurse 2 #2 Left Abdominal Fold -Time 15:34 -Correct Patient Yes -Correct Side, Site, Position Yes -Correct Procedure Yes -Procedure Performed Yes -Type of Procedure Debridement -Clinical Debridement Subcutaneous -Post Debridement Size (cm) - Length 0.6 -Post Debridement Size (cm) - Width 3.0 -Post Debridement Size (cm) - Depth 0.1 -Total Square Cm 1.80 -Treatment Response Procedure Tolerated Well #1- LEFT GROIN- POST OP -Time 15:34 -Correct Patient Yes -Correct Side, Site, Position Yes -Correct Procedure Yes -Procedure Performed Yes -Type of Procedure Debridement -Clinical Debridement Subcutaneous -Post Debridement Size (cm) - Length 2.4 -Post Debridement Size (cm) - Width 14.5 -Post Debridement Size (cm) - Depth 0.1 -Total Square Cm 34.80 -Treatment Response Procedure Tolerated Well Pain Scale: 0-10 Numeric Is Patient Pain Free? Yes Wound debrided: Left abdominal fold ulcer Laterality: Left Type of Debridement: Excisional debridement Anesthesia Used: 5% Lidocaine Gel Depth: in the subcutaneous layer Percentage of wound debrided: 100 Instrument Used: 3mm curette Tissue Removed: Slough and devitalized tissue Severity: Fat Layer Exposed Amount of bleeding with debridement: Mild Bleeding Controlled with: Pressure Patient tolerated procedure well - Additional Wound Wound debrided: Left groin ulcer Laterality: Left Type of Debridement: Excisional debridement Anesthesia Used: 5% Lidocaine Gel Depth: in the subcutaneous layer Percentage of wound debrided: 100 Instrument Used: 5mm curette Tissue Removed: Slough and devitalized tissue Severity: Fat Layer Exposed Amount of bleeding with debridement: Mild Bleeding Controlled with: Pressure Patient tolerated procedure: Patient tolerated procedure well Assessment/Plan Assessment: Nonhealing postsurgical wound left groin status post surgical excision of necrotizing fasciitis. Bilateral lower extremity edema. Morbid obesity. Type 2 diabetes mellitus Plan: The patient was seen and examined at the wound center today and was updated on the plan of care. A subcutaneous debridement was performed today. The patient tolerated the procedure well. The patients wound care will consist of: hydrofera blue/Aquacell extra change daily and as needed cover with gauze. Wound cultures were reviewed prior and negative. Baseline bloodwork reviewed which demonstrated a slightly low pre-albumin and patient was advised to use Glucerna or high-protein with meals. Repeat lab work WNL. Prealbumin WNL now. Previous records were requested for continuity of care. Patient educated on the importance of diet on wound healing and instructed to increase protein and vitam in C intake. Patient verbalized understanding. Plastic surgery consultation - no surgery indicated. Did discuss with patient the importance of blood sugar control in wound healing, recent A1C in 02/2018 was 6.1. Patient to follow-up in 1 week or sooner if needed. Patient is on a complex wound plan. This note was generated with [employer] software. It may contain incorrect words, spelling, and punctuation that were not noted in checking the note before signing. Code Visit 111xxx-[id number]: [id number] Jessica subq tissue 20 sq cm/<
[2018-08-07 15:13] VITALS: BP 108/69; PULSE 91; RESP 18; TEMP 36.1
--- NOTE | 2018-08-07 17:35 | PCM.WC.PN ---
(1) Skin ulcer of abdominal wall with fat layer exposed Status: Acute Code(s): L98.492 - Non-pressure chronic ulcer of skin of other sites with fat layer exposed Comment: left abdominal fold (2) Non-healing surgical wound of left groin Status: Acute Qualifiers: Code(s): T81.89XA - Other complications of procedures, not elsewhere classified, initial encounter (3) History of necrotising fasciitis Status: Acute Code(s): Z87.39 - Personal history of other diseases of the musculoskeletal system and connective tissue (4) Lymphedema of both lower extremities Status: Acute Code(s): I89.0 - Lymphedema, not elsewhere classified (5) Morbid obesity Status: Acute Code(s): E66.01 - Morbid (severe) obesity due to excess calories (6) Type 2 diabetes mellitus Status: Acute Qualifiers: Code(s): E11.9 - Type 2 diabetes mellitus without complications Type of Wound Date of Service: 08/07/18 Chief Complaint: Nonhealing wound status post surgical excision of necrotizing fasciitis left groin History of Wound: 46-year-old white male who presents to the wound healing center today with complaint of left groin ulceration status post surgical excision of necrotizing fasciitis. He is a past medical history which is significant for that of type 2 diabetes mellitus, gout, diabetic neuropathy, schizophrenia, bilateral lymphedema, and schizophrenia. The patient states that what initially started as a pimple in his left groin progressed to necrotizing fasciitis and he had to have this surgically debrided in April 2017. He was admitted to [facility] 2 weeks and then [facility] for 6 weeks afterwards. He states that the groin ulcer which extends to his left lower abdomen has been slowly improving and he has been doing daily Aquacel AG dressings with an ABD for the drainage. He does state that he has had 3 wound vacs in the past which were unable to be utilized due to the location of his wound. He denies any foul-smelling discharge or systemic signs of infection at this time. The patient otherwise denies any fever, chills, nausea, vomiting, shortness of breath, chest pain or pressure, palpitations, orthopnea, syncope or presyncopal episodes. Progress of Wound: Wounds are stable at this time, wound beds are moist and clean and without signs of gross infection at this time, still having delayed wound healing. Maceration has resolved,pt has done well with hydrofera blue. There is a bridge of skin that has epithelialized and now made into 2 separate wounds wound 1 left groin and wound to left lower abdominal fold. Patient continues to increase his oral protein supplementation with whey protein. Continues to have small amount of serosanguineous drainage from left groin wound. The patient otherwise denies any fever, chills, nausea, vomiting, shortness of breath, chest pain or pressure, palpitations, orthopnea, lower extremity edema, syncope or presyncopal episodes. - Physical Exam Vital Signs Temp Pulse Resp BP 97 F L 91 18 108/69 08/07/18 15:13 08/07/18 15:13 08/07/18 15:13 08/07/18 15:13 General: Alert, Oriented x3, Cooperative, No apparent distress HEENT: Atraumatic Lungs: Clear to auscultation Cardiovascular: Regular rate Abdomen: Soft, Obese Extremities: No clubbing, No cyanosis, Edema Skin: Ulcer/ Wound - Left abdominal fold ulcer and left groin ulcer with adherent slough to the wound bed, no signs of infection at this time Neurological: Neuro grossly intact Psych/Mental Status: Normal Affect, Appropriate, Alert and oriented to time, place, person, mood and affect Debridement Note Post-Debridement Measurements/Treatment WC - Nurse 2 - General Ulcer CM Notes Start: 07/24/18 15:15 Freq: Status: Active Protocol: Activity Type Activity Date Activity User E-Sign Co-Sign Detail Recorded Client Recorded Date Recorded By Document 07/24/18 15:34 AN [id number] 07/24/18 15:35 AN Document 08/07/18 16:50 AN [id number] 08/07/18 16:53 AN 07/24/18 08/07/18 15:34 16:50 Wound Center Nurse 2 #2 Left Abdominal Fold -Time 15:34 16:50 -Correct Patient Yes Yes -Correct Side, Site, Position Yes Yes -Correct Procedure Yes Yes -Procedure Performed Yes Yes -Type of Procedure Debridement Debridement -Clinical Debridement Subcutaneous Subcutaneous -Post Debridement Size (cm) - Length 0.6 0.4 -Post Debridement Size (cm) - Width 3.0 2.1 -Post Debridement Size (cm) - Depth 0.1 0.1 -Total Square Cm 1.80 0.84 -Wound/Ulcer Outcome Not Healed -Ulcer Cleansing Rinsed/ Irrigated with Saline -Foul Odor after Cleansing No -Bleeding Controlled with Pressure -Treatment Response Procedure Procedure Tolerated Well Tolerated Well #1- LEFT GROIN- POST OP -Time 15:34 16:51 -Correct Patient Yes Yes -Correct Side, Site, Position Yes Yes -Correct Procedure Yes Yes -Procedure Performed Yes Yes -Type of Procedure Debridement Debridement -Clinical Debridement Subcutaneous Subcutaneous -Post Debridement Size (cm) - Length 2.4 2.3 -Post Debridement Size (cm) - Width 14.5 12.9 -Post Debridement Size (cm) - Depth 0.1 0.1 -Total Square Cm 34.80 29.67 -Wound/Ulcer Outcome Not Healed -Ulcer Cleansing Rinsed/ Irrigated with Saline -Foul Odor after Cleansing No -Bioengineered Tissue No -Bleeding Controlled with Pressure -Treatment Response Procedure Procedure Tolerated Well Tolerated Well Pain Scale: 0-10 Numeric Is Patient Pain Free? Yes Wound debrided: Left abdominal fold ulcer Type of Debridement: Excisional debridement Anesthesia Used: 5% Lidocaine Gel Depth: in the subcutaneous layer Percentage of wound debrided: 100 Instrument Used: 3mm curette Tissue Removed: Slough and devitalized tissue Severity: Fat Layer Exposed Amount of bleeding with debridement: Mild Bleeding Controlled with: Pressure Patient tolerated procedure well - Additional Wound Wound debrided: Left groin ulcer Type of Debridement: Excisional debridement Anesthesia Used: 5% Lidocaine Gel Depth: in the subcutaneous layer Percentage of wound debrided: 100 Instrument Used: 5mm curette Tissue Removed: Slough and devitalized tissue Severity: Fat Layer Exposed Amount of bleeding with debridement: Mild Bleeding Controlled with: Pressure Patient tolerated procedure: Patient tolerated procedure well Assessment/Plan Assessment: Nonhealing postsurgical wound left groin status post surgical excision of necrotizing fasciitis. Bilateral lower extremity edema. Morbid obesity. Type 2 diabetes mellitus Plan: The patient was seen and examined at the wound center today and was updated on the plan of care. A subcutaneous debridement was performed today. The patient tolerated the procedure well. The patients wound care will consist of: hydrofera blue/Aquacell extra change daily and as needed cover with gauze. Wound cultures were reviewed prior and negative. Baseline bloodwork reviewed which demonstrated a slightly low pre-albumin and patient was advised to use Glucerna or high-protein with meals. Repeat lab work WNL. Prealbumin WNL now. Previous records were requested for continuity of care. Patient educated on the importance of diet on wound healing and instructed to increase protein and vitamin C intake. Patient verbalized understanding. Plastic surgery consultation - no surgery indicated. Did discuss with patient the importance of blood sugar control in wound healing, recent A1C in 02/2018 was 6.1. Patient to follow-up in 1 week or sooner if needed. Patient is on a complex wound plan. This note was generated with [employer]ation software. It may contain incorrect words, spelling, and punctuation that were not noted in checking the note before signing. Code Visit 111xxx-[id number]: [id number] Jessica subq tissue 20 sq cm/<
--- NOTE | 2018-08-12 17:37 | PN.PCM_ITS ---
(1) Skin ulcer of abdominal wall with fat layer exposed Status: Acute Code(s): L98.492 - Non-pressure chronic ulcer of skin of other sites with fat layer exposed Comment: left abdominal fold (2) Non-healing surgical wound of left groin Status: Acute Qualifiers: Code(s): T81.89XA - Other complications of procedures, not elsewhere classified, initial encounter (3) History of necrotising fasciitis Status: Acute Code(s): Z87.39 - Personal history of other diseases of the musculoskeletal system and connective tissue (4) Lymphedema of both lower extremities Status: Acute Code(s): I89.0 - Lymphedema, not elsewhere classified (5) Morbid obesity Status: Acute Code(s): E66.01 - Morbid (severe) obesity due to excess calories (6) Type 2 diabetes mellitus Status: Acute Qualifiers: Code(s): E11.9 - Type 2 diabetes mellitus without complications Type of Wound Date of Service: 08/07/18 Chief Complaint: Nonhealing wound status post surgical excision of necrotizing fasciitis left groin History of Wound: 46-year-old white male who presents to the wound healing center today with complaint of left groin ulceration status post surgical excision of necrotizing fasciitis. He is a past medical history which is significant for that of type 2 diabetes mellitus, gout, diabetic neuropathy, schizophrenia, bilateral lymphedema, and schizophrenia. The patient states that what initially started as a pimple in his left groin progressed to necrotizing fasciitis and he had to have this surgically debrided in April 2017. He was admitted to [facility] for 2 weeks and then [facility] for 6 weeks afterwards. He states that the groin ulcer which extends to his left lower abdomen has been slowly improving and he has been doing daily Aquacel AG dressings with an ABD for the drainage. He does state that he has had 3 wound vacs in the past which were unable to be utilized due to the location of his wound. He denies any foul-smelling discharge or systemic signs of infection at this time. The patient otherwise denies any fever, chills, nausea, vomiting, shortness of breath, chest pain or pressure, palpitations, orthopnea, syncope or presyncopal episodes. Progress of Wound: Wounds are stable at this time, wound beds are moist and clean and without signs of gross infection at this time, still having delayed wound healing. Maceration has resolved,pt has done well with hydrofera blue. There is a bridge of skin that has epithelialized and now made into 2 separate wounds wound 1 left groin and wound to left lower abdominal fold. Patient continues to increase his oral protein supplementation with whey protein. Cont inues to have small amount of serosanguineous drainage from left groin wound. The patient otherwise denies any fever, chills, nausea, vomiting, shortness of breath, chest pain or pressure, palpitations, orthopnea, lower extremity edema, syncope or presyncopal episodes. - Physical Exam Vital Signs Temp Pulse Resp BP 97 F L 91 18 108/69 08/07/18 15:13 08/07/18 15:13 08/07/18 15:13 08/07/18 15:13 General: Alert, Oriented x3, Cooperative, No apparent distress HEENT: Atraumatic Lungs: Clear to auscultation Cardiovascular: Regular rate Abdomen: Soft, Obese Extremities: No clubbing, No cyanosis, Edema Skin: Ulcer/ Wound - Left abdominal fold ulcer and left groin ulcer with adherent slough to the wound bed, no signs of infection at this time Neurological: Neuro grossly intact Psych/Mental Status: Normal Affect, Appropriate, Alert and oriented to time, place, person, mood and affect Debridement Note Post-Debridement Measurements/Treatment WC - Nurse 2 - General Ulcer CM Notes Start: 07/24/18 15:15 Freq: Status: Active Protocol: Activity Type Activity Date Activity User E-Sign Co-Sign Detail Recorded Client Recorded Date Recorded By Document 07/24/18 15:34 AN [id number] 07/24/18 15:35 AN Document 08/07/18 16:50 AN [id number] 08/07/18 16:53 AN 07/24/18 08/07/18 15:34 16:50 Wound Center Nurse 2 #2 Left Abdominal Fold -Time 15:34 16:50 -Correct Patient Yes Yes -Correct Side, Site, Position Yes Yes -Correct Procedure Yes Yes -Procedure Performed Yes Yes -Type of Procedure Debridement Debridement -Clinical Debridement Subcutaneous Subcutaneous -Post Debridement Size (cm) - Length 0.6 0.4 -Post Debridement Size (cm) - Width 3.0 2.1 -Post Debridement Size (cm) - Depth 0.1 0.1 -Total Square Cm 1.80 0.84 -Wound/Ulcer Outcome Not Healed -Ulcer Cleansing Rinsed/ Irrigated with Saline -Foul Odor after Cleansing No -Bleeding Controlled with Pressure -Treatment Response Procedure Procedure Tolerated Well Tolerated Well #1- LEFT GROIN- POST OP -Time 15:34 16:51 -Correct Patient Yes Yes -Correct Side, Site, Position Yes Yes -Correct Procedure Yes Yes -Procedure Performed Yes Yes -Type of Procedure Debridement Debridement -Clinical Debridement Subcutaneous Subcutaneous -Post Debridement Size (cm) - Length 2.4 2.3 -Post Debridement Size (cm) - Width 14.5 12.9 -Post Debridement Size (cm) - Depth 0.1 0.1 -Total Square Cm 34.80 29.67 -Wound/Ulcer Outcome Not Healed -Ulcer Cleansing Rinsed/ Irrigated with Saline -Foul Odor after Cleansing No -Bioengineered Tissue No -Bleeding Controlled with Pressure -Treatment Response Procedure Procedure Tolerated Well Tolerated Well Pain Scale: 0-10 Numeric Is Patient Pain Free? Yes Wound debrided: Left abdominal fold ulcer Type of Debridement: Excisional debridement Anesthesia Used: 5% Lidocaine Gel Depth: in the subcutaneous layer Percentage of wound debrided: 100 Instrument Used: 3mm curette Tissue Removed: Slough and devitalized tissue Severity: Fat Layer Exposed Amount of bleeding with debridement: Mild Bleeding Controlled with: Pressure Patient tolerated procedure well - Additional Wound Wound debrided: Left groin ulcer Type of Debridement: Excisional debridement Anesthesia Used: 5% Lidocaine Gel Depth: in the subcutaneous layer Percentage of wound debrided: 100 Instrument Used: 5mm curette Tissue Removed: Slough and devitalized tissue Severity: Fat Layer Exposed Amount of bleeding with debridement: Mild Bleeding Controlled with: Pressure Patient tolerated procedure: Patient tolerated procedure well Assessment/Plan Assessment: Nonhealing postsurgical wound left groin status post surgical excision of necrotizing fasciitis. Bilateral lower extremity edema. Morbid obesity. Type 2 diabetes mellitus Plan: The patient was seen and examined at the wound center today and was upd ated on the plan of care. A subcutaneous debridement was performed today. The patient tolerated the procedure well. The patients wound care will consist of: hydrofera blue/Aquacell extra change daily and as needed cover with gauze. Wound cultures were reviewed prior and negative. Baseline bloodwork reviewed which demonstrated a slightly low pre-albumin and patient was advised to use Glucerna or high-protein with meals. Repeat lab work WNL. Prealbumin WNL now. Previous records were requested for continuity of care. Patient educated on the importance of diet on wound healing and instructed to increase protein and vitamin C intake. Patient verbalized understanding. Plastic surgery consultation - no surgery indicated. Did discuss with patient the importance of blood sugar control in wound healing, recent A1C in 02/2018 was 6.1. Patient to follow-up in 1 week or sooner if needed. Patient is on a complex wound plan. This note was generated with [employer] dictation software. It may contain incorrect words, spelling, and punctuation that were not noted in checking the note before signing. Code Visit 111xxx-113xx: [id number] Jessica subq tissue 20 sq cm/<
[2018-08-14 15:23] VITALS: BP 138/85; PULSE 82; RESP 18; TEMP 35.9
--- NOTE | 2018-08-14 19:32 | PCM.WC.PN ---
(1) Skin ulcer of abdominal wall with fat layer exposed Status: Acute Code(s): L98.492 - Non-pressure chronic ulcer of skin of other sites with fat layer exposed Comment: left abdominal fold (2) Non-healing surgical wound of left groin Status: Acute Qualifiers: Code(s): T81.89XA - Other complications of procedures, not elsewhere classified, initial encounter (3) History of necrotising fasciitis Status: Acute Code(s): Z87.39 - Personal history of other diseases of the musculoskeletal system and connective tissue (4) Lymphedema of both lower extremities Status: Acute Code(s): I89.0 - Lymphedema, not elsewhere classified (5) Morbid obesity Status: Acute Code(s): E66.01 - Morbid (severe) obesity due to excess calories (6) Type 2 diabetes mellitus Status: Acute Qualifiers: Code(s): E11.9 - Type 2 diabetes mellitus without complications Type of Wound Date of Service: 08/14/18 Chief Complaint: Nonhealing wound status post surgical excision of necrotizing fasciitis left groin History of Wound: 46-year-old white male who presents to the wound healing center today with complaint of left groin ulceration status post surgical excision of necrotizing fasciitis. He is a past medical history which is significant for that of type 2 diabetes mellitus, gout, diabetic neuropathy, schizophrenia, bilateral lymphedema, and schizophrenia. The patient states that what initially started as a pimple in his left groin progressed to necrotizing fasciitis and he had to have this surgically debrided in April 2017. He was admitted to [facility] for 2 weeks and then [facility] for 6 weeks afterwards. He states that the groin ulcer which extends to his left lower abdomen has been slowly improving and he has been doing daily Aquacel AG dressings with an ABD for the drainage. He does state that he has had 3 wound vacs in the past which were unable to be utilized due to the location of his wound. He denies any foul-smelling discharge or systemic signs of infection at this time. The patient otherwise denies any fever, chills, nausea, vomiting, shortness of breath, chest pain or pressure, palpitations, orthopnea, syncope or presyncopal episodes. Progress of Wound: Wounds are stable at this time, wound beds are moist and clean and without signs of gross infection at this time, still having delayed wound healing. Maceration has resolved,pt has done well with hydrofera blue. There is a bridge of skin that has epithelialized and now made into 2 separate wounds wound 1 left groin and wound to left lower abdominal fold. Patient continues to increase his oral protein supplementation with whey protein. Continues to have small amount of serosanguineous drainage from left groin wound. The patient otherwise denies any fever, chills, nausea, vomiting, shortness of breath, chest pain or pressure, palpitations, orthopnea, lower extremity edema, syncope or presyncopal episodes. - Physical Exam Vital Signs Temp Pulse Resp BP 96.6 F L 82 18 138/85 H 08/14/18 15:23 08/14/18 15:23 08/14/18 15:23 08/14/18 15:23 General: Alert, Oriented x3, Cooperative, No apparent distress HEENT: Atraumatic Oral: Moist Mucosa Lungs: Clear to auscultation Cardiovascular: Regular rate Abdomen: Soft, Non Tender, Obese Extremities: No clubbing, No cyanosis Skin: Ulcer/ Wound - Ulceration to left abdominal fold and left groin with adherent slough to wound bed, no signs of obvious infection at this time. Musculoskeletal: No Tenderness to Palpation of Joints or Extremities Neurological: Neuro grossly intact Psych/Mental Status: Normal Affect, Appropriate, Alert and oriented to time, place, person, mood and affect Debridement Note Post-Debridement Measurements/Treatment WC - Nurse 2 - General Ulcer CM Notes Start: 07/24/18 15:15 Freq: Status: Active Protocol: Activity Type Activity Date Activity User E-Sign Co-Sign Detail Recorded Client Recorded Date Recorded By Document 07/24/18 15:34 AN [id number] 07/24/18 15:35 AN Document 08/07/18 16:50 AN [id number] 08/07/18 16:53 AN Document 08/14/18 16:27 AN [id number] 08/14/18 16:31 AN 07/24/18 08/07/18 08/14/18 15:34 16:50 16:27 Wound Center Nurse 2 #2 Left Abdominal Fold -Time 15:34 16:50 16:27 -Correct Patient Yes Yes Yes -Correct Side, Site, Position Yes Yes Yes -Correct Procedure Yes Yes Yes -Procedure Performed Yes Yes Yes -Type of Procedure Debridement Debridement Debridement -Clinical Debridement Subcutaneous Subcutaneous Subcutaneous -Post Debridement Size (cm) - Length 0.6 0.4 2.5 -Post Debridement Size (cm) - Width 3.0 2.1 13 -Post Debridement Size (cm) - Depth 0.1 0.1 0.1 -Total Square Cm 1.80 0.84 32.5 -Wound/Ulcer Outcome Not Healed Not Healed -Ulcer Cleansing Rinsed/ Rinsed/ Irrigated with Irrigated with Saline Saline -Foul Odor after Cleansing No No -Bioengineered Tissue No -Bleeding Controlled with Pressure -Offloading No -Treatment Response Procedure Procedure Procedure Tolerated Well Tolerated Well Tolerated Well #1- LEFT GROIN- POST OP -Time 15:34 16:51 16:27 -Correct Patient Yes Yes Yes -Correct Side, Site, Position Yes Yes Yes -Correct Procedure Yes Yes Yes -Procedure Performed Yes Yes Yes -Type of Procedure Debridement Debridement Debridement -Clinical Debridement Subcutaneous Subcutaneous Subcutaneous -Post Debridement Size (cm) - Length 2.4 2.3 2.5 -Post Debridement Size (cm) - Width 14.5 12.9 13.0 -Post Debridement Size (cm) - Depth 0.1 0.1 0.1 -Total Square Cm 34.80 29.67 32.50 -Wound/Ulcer Outcome Not Healed Not Healed -Ulcer Cleansing Rinsed/ Rinsed/ Irrigated with Irrigated with Saline Saline -Foul Odor after Cleansing No No -Bioengineered Tissue No No -Bleeding Controlled with Pressure Pressure -Offloading No -Treatment Response Procedure Procedure Procedure Tolerated Well Tolerated Well Tolerated Well Pain Scale: 0-10 Numeric Is Patient Pain Free? Yes Yes Wound debrided: Left abdominal fold ulcer Laterality: Left Type of Debridement: Excisional debridement Anesthesia Used: 5% Lidocaine Gel Depth: in the subcutaneous layer Percentage of wound debrided: 100 Instrument Used: 5mm curette Tissue Removed: Slough and devitalized tissue Severity: Fat Layer Exposed Amount of bleeding with debridement: Mild Bleeding Controlled with: Pressure Patient tolerated procedure well - Additional Wound Wound debrided: Left groin ulcer Laterality: Left Type of Debridement: Excisional debridement Anesthesia Used: 5% Lidocaine Gel Depth: in the subcutaneous layer Percentage of wound debrided: 100 Instrument Used: 5mm curette Tissue Removed: Slough and devitalized tissue Severity: Fat Layer Exposed Amount of bleeding with debridement: Mild Bleeding Controlled with: Pressure Patient tolerated procedure: Patient tolerated procedure well Assessment/Plan Assessment: Nonhealing postsurgical wound left groin status post surgical excision of necrotizing fasciitis. Bilateral lower extremity edema. Morbid obesity. Type 2 diabetes mellitus Plan: The patient was seen and examined at the wound center today and was updated on the plan of care. A subcutaneous debridement was performed today. The patient tolerated the procedure well. The patients wound care will consist of: hydrofera blue/Aquacell extra change daily and as needed cover with gauze. Wound cultures were reviewed prior and negative. Baseline bloodwork reviewed which demonstrated a slightly low pre-albumin and patient was advised to use Glucerna or high-protein with meals. Repeat lab work WNL. Prealbumin WNL now. Previous records were requested for continuity of care. Patient educated on the importance of diet on wound healing and instructed to increase protein and vitamin C intake. Patient verbalized understanding. Plastic surgery consultation - no surgery indicated. Did discuss with patient the importance of blood sugar control in wound healing, recent A1C in 02/2018 was 6.1. Patient to follow-up in 1 week or sooner if needed. Patient is on a complex wound plan. This note was generated with [employer] dictation software. It may contain incorrect words, spelling, and punctuation that were not noted in checking the note before signing. Code Visit 111xxx-113xx: [id number] Jessica subq tissue 20 sq cm/<
--- NOTE | 2018-08-19 09:34 | PN.PCM_ITS ---
(1) Skin ulcer of abdominal wall with fat layer exposed Status: Acute Code(s): L98.492 - Non-pressure chronic ulcer of skin of other sites with fat layer exposed Comment: left abdominal fold (2) Non-healing surgical wound of left groin Status: Acute Qualifiers: Code(s): T81.89XA - Other complications of procedures, not elsewhere classified, initial encounter (3) History of necrotising fasciitis Status: Acute Code(s): Z87.39 - Personal history of other diseases of the musculoskeletal system and connective tissue (4) Lymphedema of both lower extremities Status: Acute Code(s): I89.0 - Lymphedema, not elsewhere classified (5) Morbid obesity Status: Acute Code(s): E66.01 - Morbid (severe) obesity due to excess calories (6) Type 2 diabetes mellitus Status: Acute Qualifiers: Code(s): E11.9 - Type 2 diabetes mellitus without complications Type of Wound Date of Service: 08/14/18 Chief Complaint: Nonhealing wound status post surgical excision of necrotizing fasciitis left groin History of Wound: 46-year-old white male who presents to the wound healing center today with complaint of left groin ulceration status post surgical excision of necrotizing fasciitis. He is a past medical history which is significant for that of type 2 diabetes mellitus, gout, diabetic neuropathy, schizophrenia, bilateral lymphedema, and schizophrenia. The patient states that what initially started as a pimple in his left groin progressed to necrotizing fasciitis and he had to have this surgically debrided in April 2017. He was admitted to [facility] for 2 weeks and then [facility] for 6 weeks afterwards. He states that the groin ulcer which extends to his left lower abdomen has been slowly improving and he has been doing daily Aquacel AG dressings with an ABD for the drainage. He does state that he has had 3 wound vacs in the past which were unable to be utilized due to the location of his wound. He denies any foul-smelling discharge or systemic signs of infection at this time. The patient otherwise denies any fever, chills, nausea, vomiting, shortness of breath, chest pain or pressure, palpitations, orthopnea, syncope or presyncopal episodes. Progress of Wound: Wounds are stable at this time, wound beds are moist and clean and without signs of gross infection at this time, still having delayed wound healing. Maceration has resolved,pt has done well with hydrofera blue. There is a bridge of skin that has epithelialized and now made into 2 separate wounds wound 1 left groin and wound to left lower abdominal fold. Patient continues to increase his oral protein supplementation with whey protein. Cont inues to have small amount of serosanguineous drainage from left groin wound. The patient otherwise denies any fever, chills, nausea, vomiting, shortness of breath, chest pain or pressure, palpitations, orthopnea, lower extremity edema, syncope or presyncopal episodes. - Physical Exam Vital Signs Temp Pulse Resp BP 96.6 F L 82 18 138/85 H 08/14/18 15:23 08/14/18 15:23 08/14/18 15:23 08/14/18 15:23 General: Alert, Oriented x3, Cooperative, No apparent distress HEENT: Atraumatic Oral: Moist Mucosa Lungs: Clear to auscultation Cardiovascular: Regular rate Abdomen: Soft, Non Tender, Obese Extremities: No clubbing, No cyanosis Skin: Ulcer/ Wound - Ulceration to left abdominal fold and left groin with adherent slough to wound bed, no signs of obvious infection at this time. Musculoskeletal: No Tenderness to Palpation of Joints or Extremities Neurological: Neuro grossly intact Psych/Mental Status: Normal Affect, Appropriate, Alert and oriented to time, place, person, mood and affect Debridement Note Post-Debridement Measurements/Treatment WC - Nurse 2 - General Ulcer CM Notes Start: 07/24/18 15:15 Freq: Status: Active Protocol: Activity Type Activity Date Activity User E-Sign Co-Sign Detail Recorded Client Recorded Date Recorded By Document 07/24/18 15:34 AN [id number] 07/24/18 15:35 AN Document 08/07/18 16:50 AN [id number] 08/07/18 16:53 AN Document 08/14/18 16:27 AN [id number] 08/14/18 16:31 AN 07/24/18 08/07/18 08/14/18 15:34 16:50 16:27 Wound Center Nurse 2 #2 Left Abdominal Fold -Time 15:34 16:50 16:27 -Correct Patient Yes Yes Yes -Correct Side, Site, Position Yes Yes Yes -Correct Procedure Yes Yes Yes -Procedure Performed Yes Yes Yes -Type of Procedure Debridement Debridement Debridement -Clinical Debridement Subcutaneous Subcutaneous Subcutaneous -Post Debridement Size (cm) - Length 0.6 0.4 2.5 -Post Debridement Size (cm) - Width 3.0 2.1 13 -Post Debridement Size (cm) - Depth 0.1 0.1 0.1 -Total Square Cm 1.80 0.84 32.5 -Wound/Ulcer Outcome Not Healed Not Healed -Ulcer Cleansing Rinsed/ Rinsed/ Irrigated with Irrigated with Saline Saline -Foul Odor after Cleansing No No -Bioengineered Tissue No -Bleeding Controlled with Pressure -Offloading No -Treatment Response Procedure Procedure Procedure Tolerated Well Tolerated Well Tolerated Well #1- LEFT GROIN- POST OP -Time 15:34 16:51 16:27 -Correct Patient Yes Yes Yes -Correct Side, Site, Position Yes Yes Yes -Correct Procedure Yes Yes Yes -Procedure Performed Yes Yes Yes -Type of Procedure Debridement Debridement Debridement -Clinical Debridement Subcutaneous Subcutaneous Subcutaneous -Post Debridement Size (cm) - Length 2.4 2.3 2.5 -Post Debridement Size (cm) - Width 14.5 12.9 13.0 -Post Debridement Size (cm) - Depth 0.1 0.1 0.1 -Total Square Cm 34.80 29.67 32.50 -Wound/Ulcer Outcome Not Healed Not Healed -Ulcer Cleansing Rinsed/ Rinsed/ Irrigated with Irrigated with Saline Saline -Foul Odor after Cleansing No No -Bioengineered Tissue No No -Bleeding Controlled with Pressure Pressure -Offloading No -Treatment Response Procedure Procedure Procedure Tolerated Well Tolerated Well Tolerated Well Pain Scale: 0-10 Numeric Is Patient Pain Free? Yes Yes Wound debrided: Left abdominal fold ulcer Laterality: Left Type of Debridement: Excisional debridement Anesthesia Used: 5% Lidocaine Gel Depth: in the subcutaneous layer Percentage of wound debrided: 100 Instrument Used: 5mm curette Tissue Removed: Slough and devitalized tissue Severity: Fat Layer Exposed Amount of bleeding with debridement: Mild Bleeding Controlled with: Pressure Patient tolerated procedure well - Additional Wound Wound debrided: Left groin ulcer Laterality: Left Type of Debridement: Excisional debridement Anesthesia Used: 5% Lidocaine Gel Depth: in the subcutaneous layer Percentage of wound debrided: 100 Instrument Used: 5mm curette Tissue Removed: Slough and devitalized tissue Severity: Fat Layer Exposed Amount of bleeding with debridement: Mild Bleeding Controlled with: Pressure Patient tolerated procedure: Patient tolerated procedure well Assessment/Plan Assessment: Nonhealing postsurgical wound left groin status post surgical excision of necrotizing fasciitis. Bilateral lower extremity edema. Morbid obesity. Type 2 diabetes mellitus Plan: The patient was seen and examined at the wound center today and was updated on the plan of care. A subcutaneous debridement was performed today. The patient tolerated the procedure well. The patients wound care will consist of: hydrofera blue/Aquacell extra change daily and as needed cover with gauze. Wound cultures were reviewed prior and negative. Baseline bloodwork reviewed which demonstrated a slightly low pre-albumin and patient was advised to use Glucerna or high-protein with meals. Repeat lab work WNL. Prealbumin WNL now. Previous records were requested for continuity of care. Patient educated on the importance of diet on wound healing and instructed to increase protein and vitamin C intake. Patient verbalized understanding. Plastic surgery consultation - no surgery indicated. Did discuss with patient the importance of blood sugar control in wound healing, recent A1C in 02/2018 was 6.1. Patient to follow-up in 1 week or sooner if needed. Patient is on a complex wound plan. This note was generated with [employer] dictation software. It may contain incorrect words, spelling, and punctuation that were not noted in checking the note before signing. Code Visit 111xxx-113xx: [id number] Jessica subq tissue 20 sq cm/<
== END 2018-08-19 23:59 ==
LOC: WC 15:30
PROVIDERS: Family Provider Family Medicine; PCP Family Medicine; Visit Provider Nurse Practitioner Family
DX: E11.622 Type 2 diabetes mellitus with other skin ulcer (principal); L98.492 Non-pressure chronic ulcer of skin of other sites with fat layer exposed; I89.0 Lymphedema, not elsewhere classified; E66.01 Morbid (severe) obesity due to excess calories; Z68.43 Body mass index [BMI] 50.0-59.9, adult; Z71.3 Dietary counseling and surveillance; R60.0 Localized edema
CPT/HCPCS: 11042; 11045

== ENCOUNTER 2018-09-18 16:00 | Outpatient (RCR) | payer MEDICARE, MEDICAID, SELFPAY ==
[2018-08-20 00:57] VITALS: BP 138/85; PULSE 82; RESP 18; TEMP 35.9
[2018-08-21 15:17] VITALS: BP 145/88; PULSE 90; TEMP 36.7
--- NOTE | 2018-08-21 19:18 | PCM.WC.PN ---
(1) Skin ulcer of abdominal wall with fat layer exposed Status: Acute Code(s): L98.492 - Non-pressure chronic ulcer of skin of other sites with fat layer exposed Comment: left abdominal fold (2) Non-healing surgical wound of left groin Status: Acute Qualifiers: Code(s): T81.89XA - Other complications of procedures, not elsewhere classified, initial encounter (3) History of necrotising fasciitis Status: Acute Code(s): Z87.39 - Personal history of other diseases of the musculoskeletal system and connective tissue (4) Lymphedema of both lower extremities Status: Acute Code(s): I89.0 - Lymphedema, not elsewhere classified (5) Morbid obesity Status: Acute Code(s): E66.01 - Morbid (severe) obesity due to excess calories (6) Type 2 diabetes mellitus Status: Acute Qualifiers: Code(s): E11.9 - Type 2 diabetes mellitus without complications Type of Wound Date of Service: 08/21/18 Chief Complaint: Nonhealing wound status post surgical excision of necrotizing fasciitis left groin History of Wound: 46-year-old white male who presents to the wound healing center today with complaint of left groin ulceration status post surgical excision of necrotizing fasciitis. He is a past medical history which is significant for that of type 2 diabetes mellitus, gout, diabetic neuropathy, schizophrenia, bilateral lymphedema, and schizophrenia. The patient states that what initially started as a pimple in his left groin progressed to necrotizing fasciitis and he had to have this surgically debrided in April 2017. He was admitted to [facility] for 2 weeks and then [facility] for 6 weeks afterwards. He states that the groin ulcer which extends to his left lower abdomen has been slowly improving and he has been doing daily Aquacel AG dressings with an ABD for the drainage. He does state that he has had 3 wound vacs in the past which were unable to be utilized due to the location of his wound. He denies any foul-smelling discharge or systemic signs of infection at this time. The patient otherwise denies any fever, chills, nausea, vomiting, shortness of breath, chest pain or pressure, palpitations, orthopnea, syncope or presyncopal episodes. Progress of Wound: Wounds are stable at this time, wound beds are moist and clean and without signs of gross infection at this time, still having delayed wound healing. Maceration has resolved,pt has done well with hydrofera blue. There is a bridge of skin that has epithelialized and now made into 2 separate wounds wound 1 left groin and wound to left lower abdominal fold. Patient continues to increase his oral protein supplementation with whey protein. Continues to have small amount of serosanguineous drainage from left groin wound. The patient otherwise denies any fever, chills, nausea, vomiting, shortness of breath, chest pain or pressure, palpitations, orthopnea, lower extremity edema, syncope or presyncopal episodes. - Physical Exam Vital Signs Temp Pulse Resp BP 98.0 F 90 18 145/88 H 08/21/18 15:17 08/21/18 15:17 08/20/18 00:57 08/21/18 15:17 General: Alert, Oriented x3, Cooperative, No apparent distress HEENT: Atraumatic Lungs: Clear to auscultation Cardiovascular: Regular rate Abdomen: Soft, Non Tender, Obese Extremities: No clubbing, No cyanosis Skin: Ulcer/ Wound - Adherent slough to left abdominal fold ulcer and left groin ulcer no signs of infection at this time, serous drainage present Musculoskeletal: No Tenderness to Palpation of Joints or Extremities Neurological: Neuro grossly intact Psych/Mental Status: Normal Affect, Appropriate, Alert and oriented to time, place, person, mood and affect Debridement Note Post-Debridement Measurements/Treatment WC - Nurse 2 - General Ulcer CM Notes Start: 08/21/18 15:17 Freq: Status: Active Protocol: Activity Type Activity Date Activity User E-Sign Co-Sign Detail Recorded Client Recorded Date Recorded By Document 08/21/18 16:14 AN [id number] 08/21/18 16:16 AN 08/21/18 16:14 Wound Center Nurse 2 #2 Left Abdominal Fold -Time 16:15 -Correct Patient Yes -Correct Side, Site, Position Yes -Correct Procedure Yes -Procedure Performed Yes -Type of Procedure Debridement -Clinical Debridement Subcutaneous -Post Debridement Size (cm) - Length 0.3 -Post Debridement Size (cm) - Width 0.9 -Post Debridement Size (cm) - Depth 0.1 -Total Square Cm 0.27 -Wound/Ulcer Outcome Not Healed -Ulcer Cleansing Rinsed/ Irrigated with Saline -Foul Odor after Cleansing No -Bleeding Controlled with Pressure -Offloading No -Treatment Response Procedure Tolerated Well #1- LEFT GROIN- POST OP -Time 16:15 -Correct Patient Yes -Correct Side, Site, Position Yes -Correct Procedure Yes -Procedure Performed Yes -Type of Procedure Debridement -Clinical Debridement Subcutaneous -Post Debridement Size (cm) - Length 2.2 -Post Debridement Size (cm) - Width 12.5 -Post Debridement Size (cm) - Depth 0.1 -Total Square Cm 27.50 -Wound/Ulcer Outcome Amputation -Ulcer Cleansing Wound Cleanser -Foul Odor after Cleansing No -Bleeding Controlled with Pressure -Offloading No -Treatment Response Procedure Tolerated Well Pain Scale: 0-10 Numeric Is Patient Pain Free? Yes Wound debrided: Left abdominal fold ulcer Type of Debridement: Excisional debridement Anesthesia Used: 5% Lidocaine Gel Depth: in the subcutaneous layer Percentage of wound debrided: 100 Instrument Used: 3mm curette Tissue Removed: Slough and devitalized tissue Severity: Fat Layer Exposed Amount of bleeding with debridement: Mild Bleeding Controlled with: Pressure Patient tolerated procedure well - Additional Wound Wound debrided: Left groin ulcer status post appetizing fasciitis excision Type of Debridement: Excisional debridement Anesthesia Used: 5% Lidocaine Gel Depth: in the subcutaneous layer Percentage of wound debrided: 100 Instrument Used: 5mm curette Tissue Removed: Slough and devitalized tissue Severity: Fat Layer Exposed Amount of bleeding with debridement: Mild Bleeding Controlled with: Pressure Patient tolerated procedure: Patient tolerated procedure well Assessment/Plan Assessment: Nonhealing postsurgical wound left groin status post surgical excision of necrotizing fasciitis. Bilateral lower extremity edema. Morbid obesity. Type 2 diabetes mellitus Plan: The patient was seen and examined at the wound center today and was updated on the plan of care. A subcutaneous debridement was performed today. The patient tolerated the procedure well. The patients wound care will consist of: hydrofera blue/Aquacell extra change daily and as needed cover with gauze. Wound cultures were reviewed prior and negative. Baseline bloodwork reviewed which demonstrated a slightly low pre-albumin and patient was advised to use Glucerna or high-protein with meals. Repeat lab work WNL. Prealbumin WNL now. Previous records were requested for continuity of care. Patient educated on the importance of diet on wound healing and instructed to increase protein and vitamin C intake. Patient verbalized understanding. Plastic surgery consultation - no surgery indicated. Did discuss with patient the importance of blood sugar control in wound healing, recent A1C in 02/2018 was 6.1. Patient to follow-up in 1 week or sooner if needed. Patient is on a complex wound plan. This note was generated with [employer] dictation software. It may contain incorrect words, spelling, and punctuation that were not noted in checking the note before signing.
[2018-08-28 16:05] VITALS: BP 150/77; PULSE 97; RESP 20; TEMP 36.4
--- NOTE | 2018-09-02 17:16 | PCM.WC.PN ---
(1) Skin ulcer of abdominal wall with fat layer exposed Status: Acute Code(s): L98.492 - Non-pressure chronic ulcer of skin of other sites with fat layer exposed Comment: left abdominal fold (2) Non-healing surgical wound of left groin Status: Acute Qualifiers: Code(s): T81.89XA - Other complications of procedures, not elsewhere classified, initial encounter (3) History of necrotising fasciitis Status: Acute Code(s): Z87.39 - Personal history of other diseases of the musculoskeletal system and connective tissue (4) Lymphedema of both lower extremities Status: Acute Code(s): I89.0 - Lymphedema, not elsewhere classified (5) Morbid obesity Status: Acute Code(s): E66.01 - Morbid (severe) obesity due to excess calories (6) Type 2 diabetes mellitus Status: Acute Qualifiers: Code(s): E11.9 - Type 2 diabetes mellitus without complications Type of Wound Date of Service: 08/28/18 Chief Complaint: Nonhealing wound status post surgical excision of necrotizing fasciitis left groin History of Wound: 46-year-old white male who presents to the wound healing center today with complaint of left groin ulceration status post surgical excision of necrotizing fasciitis. He is a past medical history which is significant for that of type 2 diabetes mellitus, gout, diabetic neuropathy, schizophrenia, bilateral lymphedema, and schizophrenia. The patient states that what initially started as a pimple in his left groin progressed to necrotizing fasciitis and he had to have this surgically debrided in April 2017. He was admitted to [facility] for 2 weeks and then [facility] for 6 weeks afterwards. He states that the groin ulcer which extends to his left lower abdomen has been slowly improving and he has been doing daily Aquacel AG dressings with an ABD for the drainage. He does state that he has had 3 wound vacs in the past which were unable to be utilized due to the location of his wound. He denies any foul-smelling discharge or systemic signs of infection at this time. The patient otherwise denies any fever, chills, nausea, vomiting, shortness of breath, chest pain or pressure, palpitations, orthopnea, syncope or presyncopal episodes. Progress of Wound: Wounds are stable at this time, wound beds are moist and clean and without signs of gross infection at this time, still having delayed wound healing. Maceration has resolved,pt has done well with hydrofera blue. There is a bridge of skin that has epithelialized and now made into 2 separate wounds wound 1 left groin and wound to left lower abdominal fold. Patient continues to increase his oral protein supplementation with whey protein. Continues to have small amount of serosanguineous drainage from left groin wound. The patient otherwise denies any fever, chills, nausea, vomiting, shortness of breath, chest pain or pressure, palpitations, orthopnea, lower extremity edema, syncope or presyncopal episodes. - Physical Exam Vital Signs Temp Pulse Resp BP 97.6 F L 97 20 H 150/77 H 08/28/18 16:05 08/28/18 16:05 08/28/18 16:05 08/28/18 16:05 General: Alert, Oriented x3, Cooperative, No apparent distress HEENT: PERRLA, EOMI Neck: Supple, No JVD Lungs: Clear to auscultation Cardiovascular: Regular rate, Regular Rhythm Abdomen: Soft, Non Tender, Obese Extremities: Capillary Refill Less than 3 Seconds, Edema - Generalized bilateral lower extremity edema Skin: Ulcer/ Wound - Ulceration to left abdominal fold and left groin with adherent slough to wound bed, no signs of infection at this time, moderate amount of clear drainage Musculoskeletal: No Muscle Wasting Neurological: Neuro grossly intact Psych/Mental Status: Normal Affect, Appropriate, Alert and oriented to time, place, person, mood and affect Debridement Note Post-Debridement Measurements/Treatment WC - Nurse 2 - General Ulcer CM Notes Start: 08/21/18 15:17 Freq: Status: Active Protocol: Activity Type Activity Date Activity User E-Sign Co-Sign Detail Recorded Client Recorded Date Recorded By Document 08/21/18 16:14 AN [id number] 08/21/18 16:16 AN Document 08/28/18 16:51 MW [id number] 08/28/18 16:55 MW 08/21/18 08/28/18 16:14 16:51 Wound Center Nurse 2 #2 Left Abdominal Fold -Time 16:15 16:51 -Correct Patient Yes Yes -Correct Side, Site, Position Yes Yes -Correct Procedure Yes Yes -Procedure Performed Yes Yes -Type of Procedure Debridement Debridement -Clinical Debridement Subcutaneous Subcutaneous -Post Debridement Size (cm) - Length 0.3 0.3 -Post Debridement Size (cm) - Width 0.9 0.9 -Post Debridement Size (cm) - Depth 0.1 0.1 -Total Square Cm 0.27 0.27 -Wound/Ulcer Outcome Not Healed Not Healed -Ulcer Cleansing Rinsed/ Rinsed/ Irrigated with Irrigated with Saline Saline -Foul Odor after Cleansing No No -Bioengineered Tissue No -Bleeding Controlled with Pressure Pressure -Offloading No No -Treatment Response Procedure Procedure Tolerated Well Tolerated Well #1- LEFT GROIN- POST OP -Time 16:15 16:52 -Correct Patient Yes Yes -Correct Side, Site, Position Yes Yes -Correct Procedure Yes Yes -Procedure Performed Yes Yes -Type of Procedure Debridement Debridement -Clinical Debridement Subcutaneous Subcutaneous -Post Debridement Size (cm) - Length 2.2 1.9 -Post Debridement Size (cm) - Width 12.5 12.0 -Post Debridement Size (cm) - Depth 0.1 0.1 -Total Square Cm 27.50 22.80 -Wound/Ulcer Outcome Amputation Not Healed -Ulcer Cleansing Wound Cleanser Rinsed/ Irrigated with Saline -Foul Odor after Cleansing No No -Bioengineered Tissue No -Bleeding Controlled with Pressure Pressure -Offloading No No -Treatment Response Procedure Procedure Tolerated Well Tolerated Well Pain Scale: 0-10 Numeric Is Patient Pain Free? Yes Yes Wound debrided: Left abdominal fold and left groin ulcer Type of Debridement: Excisional debridement Anesthesia Used: 5% Lidocaine Gel Depth: in the subcutaneous layer Percentage of wound debrided: 100 Instrument Used: 5mm curette Tissue Removed: Slough and devitalized tissue Severity: Fat Layer Exposed Amount of bleeding with debridement: Mild Bleeding Controlled with: Pressure Patient tolerated procedure well Assessment/Plan Assessment: Nonhealing postsurgical wound left groin status post surgical excision of necrotizing fasciitis. Bilateral lower extremity edema. Morbid obesity. Type 2 diabetes mellitus Plan: The patient was seen and examined at the wound center today and was updated on the plan of care. A subcutaneous debridement was performed today. The patient tolerated the procedure well. The patients wound care will consist of: hydrofera blue/Aquacell extra change daily and as needed cover with gauze. Wound cultures were reviewed prior and negative. Baseline bloodwork reviewed which demonstrated a slightly low pre-albumin and patient was advised to use Glucerna or high-protein with meals. Repeat lab work WNL. Prealbumin WNL now. Previous records were requested for continuity of care. Patient educated on the importance of diet on wound healing and instructed to increase protein and vitamin C intake. Patient verbalized understanding. Plastic surgery consultation - no surgery indicated. Did discuss with patient the importance of blood sugar control in wound healing, recent A1C in 02/2018 was 6.1. Patient to follow-up in 1 week or sooner if needed. Patient is on a complex wound plan. This note was generated with [employer] dictation software. It may contain incorrect words, spelling, and punctuation that were not noted in checking the note before signing. Code Visit 111xxx-113xx: 83843 Jessica subq tissue 20 sq cm/< Add On Codes: [id number] Jessica subq tissue add-on
[2018-09-04 16:10] VITALS: BP 145/79; PULSE 20; RESP 16; TEMP 36.2
--- NOTE | 2018-09-04 19:31 | PCM.WC.PN ---
(1) Skin ulcer of abdominal wall with fat layer exposed Status: Acute Code(s): L98.492 - Non-pressure chronic ulcer of skin of other sites with fat layer exposed Comment: left abdominal fold (2) Non-healing surgical wound of left groin Status: Acute Qualifiers: Code(s): T81.89XA - Other complications of procedures, not elsewhere classified, initial encounter (3) History of necrotising fasciitis Status: Acute Code(s): Z87.39 - Personal history of other diseases of the musculoskeletal system and connective tissue (4) Lymphedema of both lower extremities Status: Acute Code(s): I89.0 - Lymphedema, not elsewhere classified (5) Morbid obesity Status: Acute Code(s): E66.01 - Morbid (severe) obesity due to excess calories (6) Type 2 diabetes mellitus Status: Acute Qualifiers: Code(s): E11.9 - Type 2 diabetes mellitus without complications Type of Wound Date of Service: 09/04/18 Chief Complaint: Nonhealing wound status post surgical excision of necrotizing fasciitis left groin History of Wound: 46-year-old white male who presents to the wound healing center today with complaint of left groin ulceration status post surgical excision of necrotizing fasciitis. He is a past medical history which is significant for that of type 2 diabetes mellitus, gout, diabetic neuropathy, schizophrenia, bilateral lymphedema, and schizophrenia. The patient states that what initially started as a pimple in his left groin progressed to necrotizing fasciitis and he had to have this surgically debrided in April 2017. He was admitted to [facility] for 2 weeks and then [facility] for 6 weeks afterwards. He states that the groin ulcer which extends to his left lower abdomen has been slowly improving and he has been doing daily Aquacel AG dressings with an ABD for the drainage. He does state that he has had 3 wound vacs in the past which were unable to be utilized due to the location of his wound. He denies any foul-smelling discharge or systemic signs of infection at this time. The patient otherwise denies any fever, chills, nausea, vomiting, shortness of breath, chest pain or pressure, palpitations, orthopnea, syncope or presyncopal episodes. Progress of Wound: Wounds are stable at this time, wound beds are moist and clean and without signs of gross infection at this time, still having delayed wound healing. Maceration has resolved,pt has done well with hydrofera blue. There is a bridge of skin that has epithelialized and now made into 2 separate wounds wound 1 left groin and wound to left lower abdominal fold. Patient continues to increase his oral protein supplementation with whey protein. Continues to have small amount of serosanguineous drainage from left groin wound. The patient otherwise denies any fever, chills, nausea, vomiting, shortness of breath, chest pain or pressure, palpitations, orthopnea, lower extremity edema, syncope or presyncopal episodes. - Physical Exam Vital Signs Temp Pulse Resp BP 97.1 F L 20 L 16 145/79 H 09/04/18 16:10 09/04/18 16:10 09/04/18 16:10 09/04/18 16:10 General: Alert, Oriented x3, Cooperative, No apparent distress HEENT: PERRLA, EOMI Neck: Supple, No JVD Lungs: Clear to auscultation Cardiovascular: Regular rate, Regular Rhythm Abdomen: Soft, Non Tender, Obese Extremities: No edema, Capillary Refill Less than 3 Seconds Skin: Ulcer/ Wound - ulcerations to left skin fold and groin with adherant slough, no signs of infection at this time. Neurological: Neuro grossly intact Psych/Mental Status: Normal Affect, Appropriate, Alert and oriented to time, place, person, mood and affect Debridement Note Post-Debridement Measurements/Treatment WC - Nurse 2 - General Ulcer CM Notes Start: 08/21/18 15:17 Freq: Status: Active Protocol: Activity Type Activity Date Activity User E-Sign Co-Sign Detail Recorded Client Recorded Date Recorded By Document 08/21/18 16:14 AN [id number] 08/21/18 16:16 AN Document 08/28/18 16:51 MW [id number] 08/28/18 16:55 MW Document 09/04/18 16:52 AN [id number] 09/04/18 16:56 AN 08/21/18 08/28/18 09/04/18 16:14 16:51 16:52 Wound Center Nurse 2 #2 Left Abdominal Fold -Time 16:15 16:51 16:53 -Correct Patient Yes Yes Yes -Correct Side, Site, Position Yes Yes Yes -Correct Procedure Yes Yes Yes -Procedure Performed Yes Yes Yes -Type of Procedure Debridement Debridement Debridement -Clinical Debridement Subcutaneous Subcutaneous Subcutaneous -Post Debridement Size (cm) - Length 0.3 0.3 0.5 -Post Debridement Size (cm) - Width 0.9 0.9 1.3 -Post Debridement Size (cm) - Depth 0.1 0.1 0.1 -Total Square Cm 0.27 0.27 0.65 -Wound/Ulcer Outcome Not Healed Not Healed Not Healed -Ulcer Cleansing Rinsed/ Rinsed/ Rinsed/ Irrigated with Irrigated with Irrigated with Saline Saline Saline -Foul Odor after Cleansing No No No -Bioengineered Tissue No No -Bleeding Controlled with Pressure Pressure Pressure -Offloading No No No -Treatment Response Procedure Procedure Procedure Tolerated Well Tolerated Well Tolerated Well #1- LEFT GROIN- POST OP -Time 16:15 16:52 16:54 -Correct Patient Yes Yes Yes -Correct Side, Site, Position Yes Yes Yes -Correct Procedure Yes Yes Yes -Procedure Performed Yes Yes Yes -Type of Procedure Debridement Debridement Debridement -Clinical Debridement Subcutaneous Subcutaneous Subcutaneous -Post Debridement Size (cm) - Length 2.2 1.9 2.5 -Post Debridement Size (cm) - Width 12.5 12.0 11.3 -Post Debridement Size (cm) - Depth 0.1 0.1 0.1 -Total Square Cm 27.50 22.80 28.25 -Wound/Ulcer Outcome Amputation Not Healed -Ulcer Cleansing Wound Cleanser Rinsed/ Irrigated with Saline -Foul Odor after Cleansing No No -Bioengineered Tissue No -Bleeding Controlled with Pressure Pressure -Offloading No No -Treatment Response Procedure Procedure Tolerated Well Tolerated Well Pain Scale: 0-10 Numeric Is Patient Pain Free? Yes Yes Wound debrided: left groin and left abdominal fold ulcers Laterality: Left Type of Debridement: Excisional debridement Anesthesia Used: 5% Lidocaine Gel Depth: in the subcutaneous layer Percentage of wound debrided: 100 Instrument Used: 5mm curette Tissue Removed: slough and devitalized tissue Severity: Fat Layer Exposed Amount of bleeding with debridement: Mild Bleeding Controlled with: Pressure Patient tolerated procedure well Assessment/Plan Assessment: Nonhealing postsurgical wound left groin status post surgical excision of necrotizing fasciitis. Bilateral lower extremity edema. Morbid obesity. Type 2 diabetes mellitus Plan: The patient was seen and examined at the wound center today and was updated on the plan of care. A subcutaneous debridement was performed today. The patient tolerated the procedure well. The patients wound care will consist of: hydrofera blue/Aquacell extra change daily and as needed cover with gauze. Wound cultures were reviewed prior and negative. Baseline bloodwork reviewed which demonstrated a slightly low pre-albumin and patient was advised to use Glucerna or high-protein with meals. Repeat lab work WNL. Prealbumin WNL now. Previous records were requested for continuity of care. Patient educated on the importance of diet on wound healing and instructed to increase protein and vitamin C intake. Patient verbalized understanding. Plastic surgery consultation - no surgery indicated. Did discuss with patient the importance of blood sugar control in wound healing, recent A1C in 02/2018 was 6.1. Patient to follow-up in 1 week or sooner if needed. Patient is on a complex wound plan. This note was generated with [employer] dictation software. It may contain incorrect words, spelling, and punctuation that were not noted in checking the note before signing. Code Visit 111xxx-113xx: 24198 Jessica subq tissue 20 sq cm/<
--- NOTE | 2018-09-09 08:33 | PN.PCM_ITS ---
(1) Skin ulcer of abdominal wall with fat layer exposed Status: Acute Code(s): L98.492 - Non-pressure chronic ulcer of skin of other sites with fat layer exposed Comment: left abdominal fold (2) Non-healing surgical wound of left groin Status: Acute Qualifiers: Code(s): T81.89XA - Other complications of procedures, not elsewhere classified, initial encounter (3) History of necrotising fasciitis Status: Acute Code(s): Z87.39 - Personal history of other diseases of the musculoskeletal system and connective tissue (4) Lymphedema of both lower extremities Status: Acute Code(s): I89.0 - Lymphedema, not elsewhere classified (5) Morbid obesity Status: Acute Code(s): E66.01 - Morbid (severe) obesity due to excess calories (6) Type 2 diabetes mellitus Status: Acute Qualifiers: Code(s): E11.9 - Type 2 diabetes mellitus without complications Type of Wound Date of Service: 09/04/18 Chief Complaint: Nonhealing wound status post surgical excision of necrotizing fasciitis left groin History of Wound: 46-year-old white male who presents to the wound healing center today with complaint of left groin ulceration status post surgical excision of necrotizing fasciitis. He is a past medical history which is significant for that of type 2 diabetes mellitus, gout, diabetic neuropathy, schizophrenia, bilateral lymphedema, and schizophrenia. The patient states that what initially started as a pimple in his left groin progressed to necrotizing fasciitis and he had to have this surgically debrided in April 2017. He was admitted to [facility] for 2 weeks and then [facility] for 6 weeks afterwards. He states that the groin ulcer which extends to his left lower abdomen has been slowly improving and he has been doing daily Aquacel AG dressings with an ABD for the drainage. He does state that he has had 3 wound vacs in the past which were unable to be utilized due to the location of his wound. He denies any foul-smelling discharge or systemic signs of infection at this time. The patient otherwise denies any fever, chills, nausea, vomiting, shortness of breath, chest pain or pressure, palpitations, orthopnea, syncope or presyncopal episodes. Progress of Wound: Wounds are stable at this time, wound beds are moist and clean and without signs of gross infection at this time, still having delayed wound healing. Maceration has resolved,pt has done well with hydrofera blue. There is a bridge of skin that has epithelialized and now made into 2 separate wounds wound 1 left groin and wound to left lower abdominal fold. Patient continues to increase his oral protein supplementation with whey protein. Cont inues to have small amount of serosanguineous drainage from left groin wound. The patient otherwise denies any fever, chills, nausea, vomiting, shortness of breath, chest pain or pressure, palpitations, orthopnea, lower extremity edema, syncope or presyncopal episodes. - Physical Exam Vital Signs Temp Pulse Resp BP 97.1 F L 20 L 16 145/79 H 09/04/18 16:10 09/04/18 16:10 09/04/18 16:10 09/04/18 16:10 General: Alert, Oriented x3, Cooperative, No apparent distress HEENT: PERRLA, EOMI Neck: Supple, No JVD Lungs: Clear to auscultation Cardiovascular: Regular rate, Regular Rhythm Abdomen: Soft, Non Tender, Obese Extremities: No edema, Capillary Refill Less than 3 Seconds Skin: Ulcer/ Wound - ulcerations to left skin fold and groin with adherant slough, no signs of infection at this time. Neurological: Neuro grossly intact Psych/Mental Status: Normal Affect, Appropriate, Alert and oriented to time, place, person, mood and affect Debridement Note Post-Debridement Measurements/Treatment WC - Nurse 2 - General Ulcer CM Notes Start: 08/21/18 15:17 Freq: Status: Active Protocol: Activity Type Activity Date Activity User E-Sign Co-Sign Detail Recorded Client Recorded Date Recorded By Document 08/21/18 16:14 AN [id number] 08/21/18 16:16 AN Document 08/28/18 16:51 MW [id number] 08/28/18 16:55 MW Document 09/04/18 16:52 AN [id number] 09/04/18 16:56 AN 08/21/18 08/28/18 09/04/18 16:14 16:51 16:52 Wound Center Nurse 2 #2 Left Abdominal Fold -Time 16:15 16:51 16:53 -Correct Patient Yes Yes Yes -Correct Side, Site, Position Yes Yes Yes -Correct Procedure Yes Yes Yes -Procedure Performed Yes Yes Yes -Type of Procedure Debridement Debridement Debridement -Clinical Debridement Subcutaneous Subcutaneous Subcutaneous -Post Debridement Size (cm) - Length 0.3 0.3 0.5 -Post Debridement Size (cm) - Width 0.9 0.9 1.3 -Post Debridement Size (cm) - Depth 0.1 0.1 0.1 -Total Square Cm 0.27 0.27 0.65 -Wound/Ulcer Outcome Not Healed Not Healed Not Healed -Ulcer Cleansing Rinsed/ Rinsed/ Rinsed/ Irrigated with Irrigated with Irrigated with Saline Saline Saline -Foul Odor after Cleansing No No No -Bioengineered Tissue No No -Bleeding Controlled with Pressure Pressure Pressure -Offloading No No No -Treatment Response Procedure Procedure Procedure Tolerated Well Tolerated Well Tolerated Well #1- LEFT GROIN- POST OP -Time 16:15 16:52 16:54 -Correct Patient Yes Yes Yes -Correct Side, Site, Position Yes Yes Yes -Correct Procedure Yes Yes Yes -Procedure Performed Yes Yes Yes -Type of Procedure Debridement Debridement Debridement -Clinical Debridement Subcutaneous Subcutaneous Subcutaneous -Post Debridement Size (cm) - Length 2.2 1.9 2.5 -Post Debridement Size (cm) - Width 12.5 12.0 11.3 -Post Debridement Size (cm) - Depth 0.1 0.1 0.1 -Total Square Cm 27.50 22.80 28.25 -Wound/Ulcer Outcome Amputation Not Healed -Ulcer Cleansing Wound Cleanser Rinsed/ Irrigated with Saline -Foul Odor after Cleansing No No -Bioengineered Tissue No -Bleeding Controlled with Pressure Pressure -Offloading No No -Treatment Response Procedure Procedure Tolerated Well Tolerated Well Pain Scale: 0-10 Numeric Is Patient Pain Free? Yes Yes Wound debrided: left groin and left abdominal fold ulcers Laterality: Left Type of Debridement: Excisional debridement Anesthesia Used: 5% Lidocaine Gel Depth: in the subcutaneous layer Percentage of wound debrided: 100 Instrument Used: 5mm curette Tissue Removed: slough and devitalized tissue Severity: Fat Layer Exposed Amount of bleeding with debridement: Mild Bleeding Controlled with: Pressure Patient tolerated procedure well Assessment/Plan Assessment: Nonhealing postsurgical wound left groin status post surgical excision of necrotizing fasciitis. Bilateral lower extremity edema. Morbid obesity. Type 2 diabetes mellitus Plan: The patient was seen and examined at the wound center today and was updated on the plan of care. A subcutaneous debridement was performed today. The patient tolerated the procedure well. The patients wound care will consist of: hydrofera blue/Aquacell extra change daily and as needed cover with gauze. Wound cultures were reviewed prior and negative. Baseline bloodwork reviewed which demonstrated a slightly low pre-albumin and patient was advised to use Glucerna or high-protein with meals. Repeat lab work WNL. Prealbumin WNL now. Previous records were requested for continuity of care. Patient educated on the importance of diet on wound healing and instructed to increase protein and vitamin C intake. Patient verbalized understanding. Plastic surgery consultation - no surgery indicated. Did discuss with patient the importance of blood sugar control in wound healing, recent A1C in 02/2018 was 6.1. Patient to follow-up in 1 week or sooner if needed. Patient is on a complex wound plan. This note was generated with [employer] dictation software. It may contain incorrect words, spelling, and punctuation that were not noted in checking the note before signing. Code Visit [id number]: [id number] Jessica subq tissue 20 sq cm/<
[2018-09-11 16:02] VITALS: BP 159/94; PULSE 84; RESP 18; TEMP 36.7
[2018-09-11 18:12] LABS: M R Staph aureus DNA By PCR Negative (Negative); Probe Check PASS; Specimen Processing Control PASS; Staph aureus DNA By PCR NEGATIVE (Negative)
--- NOTE | 2018-09-11 20:02 | PCM.WC.PN ---
(1) Skin ulcer of abdominal wall with fat layer exposed Status: Acute Code(s): L98.492 - Non-pressure chronic ulcer of skin of other sites with fat layer exposed Comment: left abdominal fold (2) Non-healing surgical wound of left groin Status: Acute Qualifiers: Code(s): T81.89XA - Other complications of procedures, not elsewhere classified, initial encounter (3) History of necrotising fasciitis Status: Acute Code(s): Z87.39 - Personal history of other diseases of the musculoskeletal system and connective tissue (4) Lymphedema of both lower extremities Status: Acute Code(s): I89.0 - Lymphedema, not elsewhere classified (5) Morbid obesity Status: Acute Code(s): E66.01 - Morbid (severe) obesity due to excess calories (6) Type 2 diabetes mellitus Status: Acute Qualifiers: Code(s): E11.9 - Type 2 diabetes mellitus without complications Type of Wound Date of Service: 09/11/18 Chief Complaint: Nonhealing wound status post surgical excision of necrotizing fasciitis left groin History of Wound: 46-year-old white male who presents to the wound healing center today with complaint of left groin ulceration status post surgical excision of necrotizing fasciitis. He is a past medical history which is significant for that of type 2 diabetes mellitus, gout, diabetic neuropathy, schizophrenia, bilateral lymphedema, and schizophrenia. The patient states that what initially started as a pimple in his left groin progressed to necrotizing fasciitis and he had to have this surgically debrided in April 2017. He was admitted to [facility] for 2 weeks and then [facility] for 6 weeks afterwards. He states that the groin ulcer which extends to his left lower abdomen has been slowly improving and he has been doing daily Aquacel AG dressings with an ABD for the drainage. He does state that he has had 3 wound vacs in the past which were unable to be utilized due to the location of his wound. He denies any foul-smelling discharge or systemic signs of infection at this time. The patient otherwise denies any fever, chills, nausea, vomiting, shortness of breath, chest pain or pressure, palpitations, orthopnea, syncope or presyncopal episodes. Progress of Wound: Wounds are slightly worse and macerated at this time as patient forgot to utilize the additional layer of Aquacel over top, wound beds are moist and clean and without signs of gross infection at this time, still having delayed wound healing and therefore a culture was taken today. Patient continues to increase his oral protein supplementation with whey protein. Continues to have small amount of serosanguineous drainage from left groin wound. The patient otherwise denies any fever, chills, nausea, vomiting, shortness of breath, chest pain or pressure, palpitations, orthopnea, lower extremity edema, syncope or presyncopal episodes. - Physical Exam Vital Signs Temp Pulse Resp BP 98.0 F 84 18 159/94 H 09/11/18 16:02 09/11/18 16:02 09/11/18 16:02 09/11/18 16:02 General: Alert, Oriented x3, Cooperative, No apparent distress HEENT: PERRLA, EOMI Neck: Supple, No JVD Lungs: Clear to auscultation Cardiovascular: Regular rate Abdomen: Soft, Non Tender, Obese Extremities: No edema, Capillary Refill Less than 3 Seconds Skin: Ulcer/ Wound - Ulceration to left groin and left abdominal fold with adherent slough, maceration present, otherwise no signs of obvious infection at this time. Neurological: Neuro grossly intact Psych/Mental Status: Normal Affect, Appropriate, Alert and oriented to time, place, person, mood and affect Debridement Note Post-Debridement Measurements/Treatment WC - Nurse 2 - General Ulcer CM Notes Start: 08/21/18 15:17 Freq: Status: Active Protocol: Activity Type Activity Date Activity User E-Sign Co-Sign Detail Recorded Client Recorded Date Recorded By Document 08/21/18 16:14 AN [id number] 08/21/18 16:16 AN Document 08/28/18 16:51 MW [id number] 08/28/18 16:55 MW Document 09/04/18 16:52 AN [id number] 09/04/18 16:56 AN Document 09/11/18 16:28 AN [id number] 09/11/18 16:37 AN 08/21/18 08/28/18 09/04/18 16:14 16:51 16:52 Wound Center Nurse 2 #2 Left Abdominal Fold -Time 16:15 16:51 16:53 -Correct Patient Yes Yes Yes -Correct Side, Site, Position Yes Yes Yes -Correct Procedure Yes Yes Yes -Procedure Performed Yes Yes Yes -Type of Procedure Debridement Debridement Debridement -Clinical Debridement Subcutaneous Subcutaneous Subcutaneous -Post Debridement Size (cm) - Length 0.3 0.3 0.5 -Post Debridement Size (cm) - Width 0.9 0.9 1.3 -Post Debridement Size (cm) - Depth 0.1 0.1 0.1 -Total Square Cm 0.27 0.27 0.65 -Wound/Ulcer Outcome Not Healed Not Healed Not Healed -Ulcer Cleansing Rinsed/ Rinsed/ Rinsed/ Irrigated with Irrigated with Irrigated with Saline Saline Saline -Foul Odor after Cleansing No No No -Bioengineered Tissue No No -Bleeding Controlled with Pressure Pressure Pressure -Offloading No No No -Treatment Response Procedure Procedure Procedure Tolerated Well Tolerated Well Tolerated Well #1- LEFT GROIN- POST OP -Time 16:15 16:52 16:54 -Correct Patient Yes Yes Yes -Correct Side, Site, Position Yes Yes Yes -Correct Procedure Yes Yes Yes -Procedure Performed Yes Yes Yes -Type of Procedure Debridement Debridement Debridement -Clinical Debridement Subcutaneous Subcutaneous Subcutaneous -Post Debridement Size (cm) - Length 2.2 1.9 2.5 -Post Debridement Size (cm) - Width 12.5 12.0 11.3 -Post Debridement Size (cm) - Depth 0.1 0.1 0.1 -Total Square Cm 27.50 22.80 28.25 -Wound/Ulcer Outcome Amputation Not Healed -Ulcer Cleansing Wound Cleanser Rinsed/ Irrigated with Saline -Foul Odor after Cleansing No No -Bioengineered Tissue No -Bleeding Controlled with Pressure Pressure -Offloading No No -Treatment Response Procedure Procedure Tolerated Well Tolerated Well Pain Scale: 0-10 Numeric Is Patient Pain Free? Yes Yes 09/11/18 16:28 Wound Center Nurse 2 #2 Left Abdominal Fold -Time 16:33 -Correct Patient Yes -Correct Side, Site, Position Yes -Correct Procedure Yes -Procedure Performed Yes -Type of Procedure Debridement -Clinical Debridement Subcutaneous -Post Debridement Size (cm) - Length 0.5 -Post Debridement Size (cm) - Width 1.2 -Post Debridement Size (cm) - Depth 0.1 -Total Square Cm 0.60 -Wound/Ulcer Outcome Not Healed -Ulcer Cleansing Rinsed/ Irrigated with Saline -Foul Odor after Cleansing No -Bioengineered Tissue No -Bleeding Controlled with Pressure -Offloading -Treatment Response Procedure Tolerated Well #1- LEFT GROIN- POST OP -Time 16:35 -Correct Patient Yes -Correct Side, Site, Position Yes -Correct Procedure Yes -Procedure Performed Yes -Type of Procedure Debridement -Clinical Debridement Subcutaneous -Post Debridement Size (cm) - Length 2.1 -Post Debridement Size (cm) - Width 12.0 -Post Debridement Size (cm) - Depth 0.1 -Total Square Cm 25.20 -Wound/Ulcer Outcome Not Healed -Ulcer Cleansing Rinsed/ Irrigated with Saline -Foul Odor after Cleansing No -Bioengineered Tissue No -Bleeding Controlled with Pressure -Offloading No -Treatment Response Procedure Tolerated Well Pain Scale: 0-10 Numeric Is Patient Pain Free? Yes Wound debrided: Left groin and abdominal fold ulcer Laterality: Left Type of Debridement: Excisional debridement Anesthesia Used: 5% Lidocaine Gel Depth: in the subcutaneous layer Percentage of wound debrided: 100 Instrument Used: 3mm curette, 5mm curette Tissue Removed: Slough and devitalized tissue Severity: Fat Layer Exposed Amount of bleeding with debridement: Mild Bleeding Controlled with: Pressure Patient tolerated procedure well Assessment/Plan Assessment: Nonhealing postsurgical wound left groin status post surgical excision of necrotizing fasciitis. Bilateral lower extremity edema. Morbid obesity. Type 2 diabetes mellitus Plan: The patient was seen and examined at the wound center today and was updated on the plan of care. A subcutaneous debridement was performed today. The patient tolerated the procedure well. The patients wound care will consist of: hydrofera blue/Aquacell extra change daily and as needed cover with gauze. Wound cultures were collected today due to the delayed wound healing. Baseline bloodwork reviewed which demonstrated a slightly low pre-albumin and patient was advised to use Glucerna or high-protein with meals. Repeat lab work WNL. Prealbumin WNL now. Previous records were requested for continuity of care. Patient educated on the importance of diet on wound healing and instructed to increase protein and vitamin C intake. Patient verbalized understanding. Plastic surgery consultation - no surgery indicated. Did discuss with patient the importance of blood sugar control in wound healing, recent A1C in 02/2018 was 6.1. Patient to follow-up in 1 week or sooner if needed. Patient is on a complex wound plan. This note was generated with [employer] dictation software. It may contain incorrect words, spelling, and punctuation that were not noted in checking the note before signing. Code Visit 111xxx-[id number]: [id number] Jessica subq tissue 20 sq cm/<
--- NOTE | 2018-09-15 10:05 | PN.PCM_ITS ---
(1) Skin ulcer of abdominal wall with fat layer exposed Status: Acute Code(s): L98.492 - Non-pressure chronic ulcer of skin of other sites with fat layer exposed Comment: left abdominal fold (2) Non-healing surgical wound of left groin Status: Acute Qualifiers: Code(s): T81.89XA - Other complications of procedures, not elsewhere classified, initial encounter (3) History of necrotising fasciitis Status: Acute Code(s): Z87.39 - Personal history of other diseases of the musculoskeletal system and connective tissue (4) Lymphedema of both lower extremities Status: Acute Code(s): I89.0 - Lymphedema, not elsewhere classified (5) Morbid obesity Status: Acute Code(s): E66.01 - Morbid (severe) obesity due to excess calories (6) Type 2 diabetes mellitus Status: Acute Qualifiers: Code(s): E11.9 - Type 2 diabetes mellitus without complications Type of Wound Date of Service: 09/11/18 Chief Complaint: Nonhealing wound status post surgical excision of necrotizing fasciitis left groin History of Wound: 46-year-old white male who presents to the wound healing center today with complaint of left groin ulceration status post surgical excision of necrotizing fasciitis. He is a past medical history which is significant for that of type 2 diabetes mellitus, gout, diabetic neuropathy, schizophrenia, bilateral lymphedema, and schizophrenia. The patient states that what initially started as a pimple in his left groin progressed to necrotizing fasciitis and he had to have this surgically debrided in April 2017. He was admitted to [facility] for 2 weeks and then [facility] for 6 weeks afterwards. He states that the groin ulcer which extends to his left lower abdomen has been slowly improving and he has been doing daily Aquacel AG dressings with an ABD for the drainage. He does state that he has had 3 wound vacs in the past which were unable to be utilized due to the location of his wound. He denies any foul-smelling discharge or systemic signs of infection at this time. The patient otherwise denies any fever, chills, nausea, vomiting, shortness of breath, chest pain or pressure, palpitations, orthopnea, syncope or presyncopal episodes. Progress of Wound: Wounds are slightly worse and macerated at this time as patient forgot to utilize the additional layer of Aquacel over top, wound beds are moist and clean and without signs of gross infection at this time, still having delayed wound healing and therefore a culture was taken today. Patient continues to increase his oral protein supplementation with whey protein. Continues to have small amount of serosanguineous drainage from left groin wound. The patient otherwise denies any fever, chills, nausea, vomiting, shortness of breath, chest pain or pressure, palpitations, orthopnea, lower extremity edema, syncope or presyncopal episodes. - Physical Exam Vital Signs Temp Pulse Resp BP 98.0 F 84 18 159/94 H 09/11/18 16:02 09/11/18 16:02 09/11/18 16:02 09/11/18 16:02 General: Alert, Oriented x3, Cooperative, No apparent distress HEENT: PERRLA, EOMI Neck: Supple, No JVD Lungs: Clear to auscultation Cardiovascular: Regular rate Abdomen: Soft, Non Tender, Obese Extremities: No edema, Capillary Refill Less than 3 Seconds Skin: Ulcer/ Wound - Ulceration to left groin and left abdominal fold with adherent slough, maceration present, otherwise no signs of obvious infection at this time. Neurological: Neuro grossly intact Psych/Mental Status: Normal Affect, Appropriate, Alert and oriented to time, place, person, mood and affect Debridement Note Post-Debridement Measurements/Treatment WC - Nurse 2 - General Ulcer CM Notes Start: 08/21/18 15:17 Freq: Status: Active Protocol: Activity Type Activity Date Activity User E-Sign Co-Sign Detail Recorded Client Recorded Date Recorded By Document 08/21/18 16:14 AN [id number] 08/21/18 16:16 AN Document 08/28/18 16:51 MW [id number] 08/28/18 16:55 MW Document 09/04/18 16:52 AN [id number] 09/04/18 16:56 AN Document 09/11/18 16:28 AN [id number] 09/11/18 16:37 AN 08/21/18 08/28/18 09/04/18 16:14 16:51 16:52 Wound Center Nurse 2 #2 Left Abdominal Fold -Time 16:15 16:51 16:53 -Correct Patient Yes Yes Yes -Correct Side, Site, Position Yes Yes Yes -Correct Procedure Yes Yes Yes -Procedure Performed Yes Yes Yes -Type of Procedure Debridement Debridement Debridement -Clinical Debridement Subcutaneous Subcutaneous Subcutaneous -Post Debridement Size (cm) - Length 0.3 0.3 0.5 -Post Debridement Size (cm) - Width 0.9 0.9 1.3 -Post Debridement Size (cm) - Depth 0.1 0.1 0.1 -Total Square Cm 0.27 0.27 0.65 -Wound/Ulcer Outcome Not Healed Not Healed Not Healed -Ulcer Cleansing Rinsed/ Rinsed/ Rinsed/ Irrigated with Irrigated with Irrigated with Saline Saline Saline -Foul Odor after Cleansing No No No -Bioengineered Tissue No No -Bleeding Controlled with Pressure Pressure Pressure -Offloading No No No -Treatment Response Procedure Procedure Procedure Tolerated Well Tolerated Well Tolerated Well #1- LEFT GROIN- POST OP -Time 16:15 16:52 16:54 -Correct Patient Yes Yes Yes -Correct Side, Site, Position Yes Yes Yes -Correct Procedure Yes Yes Yes -Procedure Performed Yes Yes Yes -Type of Procedure Debridement Debridement Debridement -Clinical Debridement Subcutaneous Subcutaneous Subcutaneous -Post Debridement Size (cm) - Length 2.2 1.9 2.5 -Post Debridement Size (cm) - Width 12.5 12.0 11.3 -Post Debridement Size (cm) - Depth 0.1 0.1 0.1 -Total Square Cm 27.50 22.80 28.25 -Wound/Ulcer Outcome Amputation Not Healed -Ulcer Cleansing Wound Cleanser Rinsed/ Irrigated with Saline -Foul Odor after Cleansing No No -Bioengineered Tissue No -Bleeding Controlled with Pressure Pressure -Offloading No No -Treatment Response Procedure Procedure Tolerated Well Tolerated Well Pain Scale: 0-10 Numeric Is Patient Pain Free? Yes Yes 09/11/18 16:28 Wound Center Nurse 2 #2 Left Abdominal Fold -Time 16:33 -Correct Patient Yes -Correct Side, Site, Position Yes -Correct Procedure Yes -Procedure Performed Yes -Type of Procedure Debridement -Clinical Debridement Subcutaneous -Post Debridement Size (cm) - Length 0.5 -Post Debridement Size (cm) - Width 1.2 -Post Debridement Size (cm) - Depth 0.1 -Total Square Cm 0.60 -Wound/Ulcer Outcome Not Healed -Ulcer Cleansing Rinsed/ Irrigated with Saline -Foul Odor after Cleansing No -Bioengineered Tissue No -Bleeding Controlled with Pressure -Offloading -Treatment Response Procedure Tolerated Well #1- LEFT GROIN- POST OP -Time 16:35 -Correct Patient Yes -Correct Side, Site, Position Yes -Correct Procedure Yes -Procedure Performed Yes -Type of Procedure Debridement -Clinical Debridement Subcutaneous -Post Debridement Size (cm) - Length 2.1 -Post Debridement Size (cm) - Width 12.0 -Post Debridement Size (cm) - Depth 0.1 -Total Square Cm 25.20 -Wound/Ulcer Outcome Not Healed -Ulcer Cleansing Rinsed/ Irrigated with Saline -Foul Odor after Cleansing No -Bioengineered Tissue No -Bleeding Controlled with Pressure -Offloading No -Treatment Response Procedure Tolerated Well Pain Scale: 0-10 Numeric Is Patient Pain Free? Yes Wound debrided: Left groin and abdominal fold ulcer Laterality: Left Type of Debridement: Excisional debridement Anesthesia Used: 5% Lidocaine Gel Depth: in the subcutaneous layer Percentage of wound debrided: 100 Instrument Used: 3mm curette, 5mm curette Tissue Removed: Slough and devitalized tissue Severity: Fat Layer Exposed Amount of bleeding with debridement: Mild Bleeding Controlled with: Pressure Patient tolerated procedure well Assessment/Plan Assessment: Nonhealing postsurgical wound left groin status post surgical excision of necrotizing fasciitis. Bilateral lower extremity edema. Morbid obesity. Type 2 diabetes mellitus Plan: The patient was seen and examined at the wound center today and was updated on the plan of care. A subcutaneous debridement was performed today. The patient tolerated the procedure well. The patients wound care will consist of: hydrofera blue/Aquacell extra change daily and as needed cover with gauze. Wound cultures were collected today due to the delayed wound healing. Baseline bloodwork reviewed which demonstrated a slightly low pre-albumin and patient was advised to use Glucerna or high-protein with meals. Repeat lab work WNL. Prealbumin WNL now. Previous records were requested for continuity of care. Patient educated on the importance of diet on wound healing and instructed to increase protein and vitamin C intake. Patient verbalized understanding. Plastic surgery consultation - no surgery indicated. Did discuss with patient the importance of blood sugar control in wound healing, recent A1C in 02/2018 was 6.1. Patient to follow-up in 1 week or sooner if needed. Patient is on a complex wound plan. This note was generated with [employer] dictation software. It may contain incorrect words, spelling, and punctuation that were not noted in checking the note before signing. Code Visit [id number]: [id number] Jessica subq tissue 20 sq cm/<
[2018-09-18 15:58] VITALS: BP 152/76; PULSE 85; RESP 20; TEMP 36
--- NOTE | 2018-09-18 20:07 | PCM.WC.PN ---
(1) Skin ulcer of abdominal wall with fat layer exposed Status: Acute Code(s): L98.492 - Non-pressure chronic ulcer of skin of other sites with fat layer exposed Comment: left abdominal fold (2) Non-healing surgical wound of left groin Status: Acute Qualifiers: Code(s): T81.89XA - Other complications of procedures, not elsewhere classified, initial encounter (3) History of necrotising fasciitis Status: Acute Code(s): Z87.39 - Personal history of other diseases of the musculoskeletal system and connective tissue (4) Lymphedema of both lower extremities Status: Acute Code(s): I89.0 - Lymphedema, not elsewhere classified (5) Morbid obesity Status: Acute Code(s): E66.01 - Morbid (severe) obesity due to excess calories (6) Type 2 diabetes mellitus Status: Acute Qualifiers: Code(s): E11.9 - Type 2 diabetes mellitus without complications Type of Wound Date of Service: 09/18/18 Chief Complaint: Nonhealing wound status post surgical excision of necrotizing fasciitis left groin History of Wound: 46-year-old white male who presents to the wound healing center today with complaint of left groin ulceration status post surgical excision of necrotizing fasciitis. He is a past medical history which is significant for that of type 2 diabetes mellitus, gout, diabetic neuropathy, schizophrenia, bilateral lymphedema, and schizophrenia. The patient states that what initially started as a pimple in his left groin progressed to necrotizing fasciitis and he had to have this surgically debrided in April 2017. He was admitted to [facility] for 2 weeks and then [facility] for 6 weeks afterwards. He states that the groin ulcer which extends to his left lower abdomen has been slowly improving and he has been doing daily Aquacel AG dressings with an ABD for the drainage. He does state that he has had 3 wound vacs in the past which were unable to be utilized due to the location of his wound. He denies any foul-smelling discharge or systemic signs of infection at this time. The patient otherwise denies any fever, chills, nausea, vomiting, shortness of breath, chest pain or pressure, palpitations, orthopnea, syncope or presyncopal episodes. Progress of Wound: Wounds are stable, wound beds are moist and clean and without signs of gross infection at this time, still having delayed wound healing and therefore a culture was taken prior and essentially negative. Patient continues to increase his oral protein supplementation with whey protein. Continues to have small amount of serosanguineous drainage from left groin wound. The patient otherwise denies any fever, chills, nausea, vomiting, shortness of breath, chest pain or pressure, palpitations, orthopnea, lower extremity edema, syncope or presyncopal episodes. - Physical Exam Vital Signs Temp Pulse Resp BP 96.8 F L 85 20 H 152/76 H 09/18/18 15:58 09/18/18 15:58 09/18/18 15:58 09/18/18 15:58 General: Alert, Oriented x3, Cooperative, No apparent distress HEENT: PERRLA, EOMI Oral: Moist Mucosa Lungs: Clear to auscultation Cardiovascular: Regular rate Abdomen: Soft, Non Tender, Obese Extremities: No clubbing, No cyanosis, No edema Skin: Ulcer/ Wound - Ulcers to left groin and left abdominal fold with adherent slough, no signs of infection at this time. Neurological: Neuro grossly intact Psych/Mental Status: Normal Affect, Appropriate, Alert and oriented to time, place, person, mood and affect Debridement Note Post-Debridement Measurements/Treatment WC - Nurse 2 - General Ulcer CM Notes Start: 08/21/18 15:17 Freq: Status: Active Protocol: Activity Type Activity Date Activity User E-Sign Co-Sign Detail Recorded Client Recorded Date Recorded By Document 08/21/18 16:14 AN [id number] 08/21/18 16:16 AN Document 08/28/18 16:51 MW [id number] 08/28/18 16:55 MW Document 09/04/18 16:52 AN [id number] 09/04/18 16:56 AN Document 09/11/18 16:28 AN [id number] 09/11/18 16:37 AN Document 09/18/18 16:17 AN [id number] 09/18/18 16:29 AN 08/21/18 08/28/18 09/04/18 16:14 16:51 16:52 Wound Center Nurse 2 #2 Left Abdominal Fold -Time 16:15 16:51 16:53 -Correct Patient Yes Yes Yes -Correct Side, Site, Position Yes Yes Yes -Correct Procedure Yes Yes Yes -Procedure Performed Yes Yes Yes -Type of Procedure Debridement Debridement Debridement -Clinical Debridement Subcutaneous Subcutaneous Subcutaneous -Post Debridement Size (cm) - Length 0.3 0.3 0.5 -Post Debridement Size (cm) - Width 0.9 0.9 1.3 -Post Debridement Size (cm) - Depth 0.1 0.1 0.1 -Total Square Cm 0.27 0.27 0.65 -Wound/Ulcer Outcome Not Healed Not Healed Not Healed -Ulcer Cleansing Rinsed/ Rinsed/ Rinsed/ Irrigated with Irrigated with Irrigated with Saline Saline Saline -Foul Odor after Cleansing No No No -Bioengineered Tissue No No -Bleeding Controlled with Pressure Pressure Pressure -Offloading No No No -Treatment Response Procedure Procedure Procedure Tolerated Well Tolerated Well Tolerated Well #1- LEFT GROIN- POST OP -Time 16:15 16:52 16:54 -Correct Patient Yes Yes Yes -Correct Side, Site, Position Yes Yes Yes -Correct Procedure Yes Yes Yes -Procedure Performed Yes Yes Yes -Type of Procedure Debridement Debridement Debridement -Clinical Debridement Subcutaneous Subcutaneous Subcutaneous -Post Debridement Size (cm) - Length 2.2 1.9 2.5 -Post Debridement Size (cm) - Width 12.5 12.0 11.3 -Post Debridement Size (cm) - Depth 0.1 0.1 0.1 -Total Square Cm 27.50 22.80 28.25 -Wound/Ulcer Outcome Amputation Not Healed -Ulcer Cleansing Wound Cleanser Rinsed/ Irrigated with Saline -Foul Odor after Cleansing No No -Bioengineered Tissue No -Bleeding Controlled with Pressure Pressure -Offloading No No -Treatment Response Procedure Procedure Tolerated Well Tolerated Well Pain Scale: 0-10 Numeric Is Patient Pain Free? Yes Yes 09/11/18 09/18/18 16:28 16:17 Wound Center Nurse 2 #2 Left Abdominal Fold -Time 16:33 16:28 -Correct Patient Yes Yes -Correct Side, Site, Position Yes Yes -Correct Procedure Yes Yes -Procedure Performed Yes Yes -Type of Procedure Debridement Debridement -Clinical Debridement Subcutaneous Subcutaneous -Post Debridement Size (cm) - Length 0.5 0.4 -Post Debridement Size (cm) - Width 1.2 1.1 -Post Debridement Size (cm) - Depth 0.1 0.1 -Total Square Cm 0.60 0.44 -Wound/Ulcer Outcome Not Healed Not Healed -Ulcer Cleansing Rinsed/ Rinsed/ Irrigated with Irrigated with Saline Saline -Foul Odor after Cleansing No No -Bioengineered Tissue No No -Bleeding Controlled with Pressure Pressure -Offloading -Treatment Response Procedure Procedure Tolerated Well Tolerated Well #1- LEFT GROIN- POST OP -Time 16:35 16:27 -Correct Patient Yes Yes -Correct Side, Site, Position Yes Yes -Correct Procedure Yes Yes -Procedure Performed Yes Yes -Type of Procedure Debridement Debridement -Clinical Debridement Subcutaneous Subcutaneous -Post Debridement Size (cm) - Length 2.1 2.5 -Post Debridement Size (cm) - Width 12.0 12 -Post Debridement Size (cm) - Depth 0.1 0.1 -Total Square Cm 25.20 30.0 -Wound/Ulcer Outcome Not Healed Not Healed -Ulcer Cleansing Rinsed/ Rinsed/ Irrigated with Irrigated with Saline Saline -Foul Odor after Cleansing No No -Bioengineered Tissue No No -Bleeding Controlled with Pressure Pressure -Offloading No -Treatment Response Procedure Procedure Tolerated Well Tolerated Well Pain Scale: 0-10 Numeric Is Patient Pain Free? Yes Yes Wound debrided: Left groin and abdominal fold ulcers Type of Debridement: Excisional debridement Anesthesia Used: 5% Lidocaine Gel Depth: in the subcutaneous layer Percentage of wound debrided: 100 Instrument Used: 5mm curette Tissue Removed: Slough and devitalized tissue Severity: Fat Layer Exposed Amount of bleeding with debridement: Mild Bleeding Controlled with: Pressure Patient tolerated procedure well Assessment/Plan Assessment: Nonhealing postsurgical wound left groin status post surgical excision of necrotizing fasciitis. Bilateral lower extremity edema. Morbid obesity. Type 2 diabetes mellitus Plan: The patient was seen and examined at the wound center today and was updated on the plan of care. A subcutaneous debridement was performed today. The patient tolerated the procedure well. The patients wound care will consist of: hydrofera blue/Aquacell extra change daily and as needed cover with gauze. Did discuss with patient that to prevent maceration, after he showers he should make sure that his wounds are adequately dried before applying the dressings. Wound cultures were collected prior and essentially negative. Baseline bloodwork reviewed which demonstrated a slightly low pre-albumin and patient was advised to use Glucerna or high-protein with meals. Repeat lab work WNL. Prealbumin WNL now. Previous records were requested for continuity of care. Patient educated on the importance of diet on wound healing and instructed to increase protein and vitamin C intake. Patient verbalized understanding. Plastic surgery consultation - no surgery indicated. Did discuss with patient the importance of blood sugar control in wound healing, recent A1C in 02/2018 was 6.1. Patient to follow-up in 1 week or sooner if needed. Patient is on a complex wound plan. This note was generated with [employer] dictation software. It may contain incorrect words, spelling, and punctuation that were not noted in checking the note before signing. Code Visit 111xxx-[id number]: [id number] Jessica subq tissue 20 sq cm/<
--- NOTE | 2018-09-23 10:14 | PN.PCM_ITS ---
(1) Skin ulcer of abdominal wall with fat layer exposed Status: Acute Code(s): L98.492 - Non-pressure chronic ulcer of skin of other sites with fat layer exposed Comment: left abdominal fold (2) Non-healing surgical wound of left groin Status: Acute Qualifiers: Code(s): T81.89XA - Other complications of procedures, not elsewhere classified, initial encounter (3) History of necrotising fasciitis Status: Acute Code(s): Z87.39 - Personal history of other diseases of the musculoskeletal system and connective tissue (4) Lymphedema of both lower extremities Status: Acute Code(s): I89.0 - Lymphedema, not elsewhere classified (5) Morbid obesity Status: Acute Code(s): E66.01 - Morbid (severe) obesity due to excess calories (6) Type 2 diabetes mellitus Status: Acute Qualifiers: Code(s): E11.9 - Type 2 diabetes mellitus without complications Type of Wound Date of Service: 09/18/18 Chief Complaint: Nonhealing wound status post surgical excision of necrotizing fasciitis left groin History of Wound: 46-year-old white male who presents to the wound healing center today with complaint of left groin ulceration status post surgical excision of necrotizing fasciitis. He is a past medical history which is significant for that of type 2 diabetes mellitus, gout, diabetic neuropathy, schizophrenia, bilateral lymphedema, and schizophrenia. The patient states that what initially started as a pimple in his left groin progressed to necrotizing fasciitis and he had to have this surgically debrided in April 2017. He was admitted to [facility] for 2 weeks and then [facility] for 6 weeks afterwards. He states that the groin ulcer which extends to his left lower abdomen has been slowly improving and he has been doing daily Aquacel AG dressings with an ABD for the drainage. He does state that he has had 3 wound vacs in the past which were unable to be utilized due to the location of his wound. He denies any foul-smelling discharge or systemic signs of infection at this time. The patient otherwise denies any fever, chills, nausea, vomiting, shortness of breath, chest pain or pressure, palpitations, orthopnea, syncope or presyncopal episodes. Progress of Wound: Wounds are stable, wound beds are moist and clean and without signs of gross infection at this time, still having delayed wound healing and therefore a culture was taken prior and essentially negative. Patient continues to increase his oral protein supplementation with whey protein. Continues to have small amount of serosanguineous drainage from left groin wound. The patient otherwise denies any fever, chills, nausea, vomiting, shortness of breath, chest pain or pressure, palpitations, orthopnea, lower extremity edema, syncope or presyncopal episodes. - Physical Exam Vital Signs Temp Pulse Resp BP 96.8 F L 85 20 H 152/76 H 09/18/18 15:58 09/18/18 15:58 09/18/18 15:58 09/18/18 15:58 General: Alert, Oriented x3, Cooperative, No apparent distress HEENT: PERRLA, EOMI Oral: Moist Mucosa Lungs: Clear to auscultation Cardiovascular: Regular rate Abdomen: Soft, Non Tender, Obese Extremities: No clubbing, No cyanosis, No edema Skin: Ulcer/ Wound - Ulcers to left groin and left abdominal fold with adherent slough, no signs of infection at this time. Neurological: Neuro grossly intact Psych/Mental Status: Normal Affect, Appropriate, Alert and oriented to time, place, person, mood and affect Debridement Note Post-Debridement Measurements/Treatment WC - Nurse 2 - General Ulcer CM Notes Start: 08/21/18 15:17 Freq: Status: Active Protocol: Activity Type Activity Date Activity User E-Sign Co-Sign Detail Recorded Client Recorded Date Recorded By Document 08/21/18 16:14 AN [id number] 08/21/18 16:16 AN Document 08/28/18 16:51 MW [id number] 08/28/18 16:55 MW Document 09/04/18 16:52 AN [id number] 09/04/18 16:56 AN Document 09/11/18 16:28 AN [id number] 09/11/18 16:37 AN Document 09/18/18 16:17 AN [id number] 09/18/18 16:29 AN 08/21/18 08/28/18 09/04/18 16:14 16:51 16:52 Wound Center Nurse 2 #2 Left Abdominal Fold -Time 16:15 16:51 16:53 -Correct Patient Yes Yes Yes -Correct Side, Site, Position Yes Yes Yes -Correct Procedure Yes Yes Yes -Procedure Performed Yes Yes Yes -Type of Procedure Debridement Debridement Debridement -Clinical Debridement Subcutaneous Subcutaneous Subcutaneous -Post Debridement Size (cm) - Length 0.3 0.3 0.5 -Post Debridement Size (cm) - Width 0.9 0.9 1.3 -Post Debridement Size (cm) - Depth 0.1 0.1 0.1 -Total Square Cm 0.27 0.27 0.65 -Wound/Ulcer Outcome Not Healed Not Healed Not Healed -Ulcer Cleansing Rinsed/ Rinsed/ Rinsed/ Irrigated with Irrigated with Irrigated with Saline Saline Saline -Foul Odor after Cleansing No No No -Bioengineered Tissue No No -Bleeding Controlled with Pressure Pressure Pressure -Offloading No No No -Treatment Response Procedure Procedure Procedure Tolerated Well Tolerated Well Tolerated Well #1- LEFT GROIN- POST OP -Time 16:15 16:52 16:54 -Correct Patient Yes Yes Yes -Correct Side, Site, Position Yes Yes Yes -Correct Procedure Yes Yes Yes -Procedure Performed Yes Yes Yes -Type of Procedure Debridement Debridement Debridement -Clinical Debridement Subcutaneous Subcutaneous Subcutaneous -Post Debridement Size (cm) - Length 2.2 1.9 2.5 -Post Debridement Size (cm) - Width 12.5 12.0 11.3 -Post Debridement Size (cm) - Depth 0.1 0.1 0.1 -Total Square Cm 27.50 22.80 28.25 -Wound/Ulcer Outcome Amputation Not Healed -Ulcer Cleansing Wound Cleanser Rinsed/ Irrigated with Saline -Foul Odor after Cleansing No No -Bioengineered Tissue No -Bleeding Controlled with Pressure Pressure -Offloading No No -Treatment Response Procedure Procedure Tolerated Well Tolerated Well Pain Scale: 0-10 Numeric Is Patient Pain Free? Yes Yes 09/11/18 09/18/18 16:28 16:17 Wound Center Nurse 2 #2 Left Abdominal Fold -Time 16:33 16:28 -Correct Patient Yes Yes -Correct Side, Site, Position Yes Yes -Correct Procedure Yes Yes -Procedure Performed Yes Yes -Type of Procedure Debridement Debridement -Clinical Debridement Subcutaneous Subcutaneous -Post Debridement Size (cm) - Length 0.5 0.4 -Post Debridement Size (cm) - Width 1.2 1.1 -Post Debridement Size (cm) - Depth 0.1 0.1 -Total Square Cm 0.60 0.44 -Wound/Ulcer Outcome Not Healed Not Healed -Ulcer Cleansing Rinsed/ Rinsed/ Irrigated with Irrigated with Saline Saline -Foul Odor after Cleansing No No -Bioengineered Tissue No No -Bleeding Controlled with Pressure Pressure -Offloading -Treatment Response Procedure Procedure Tolerated Well Tolerated Well #1- LEFT GROIN- POST OP -Time 16:35 16:27 -Correct Patient Yes Yes -Correct Side, Site, Position Yes Yes -Correct Procedure Yes Yes -Procedure Performed Yes Yes -Type of Procedure Debridement Debridement -Clinical Debridement Subcutaneous Subcutaneous -Post Debridement Size (cm) - Length 2.1 2.5 -Post Debridement Size (cm) - Width 12.0 12 -Post Debridement Size (cm) - Depth 0.1 0.1 -Total Square Cm 25.20 30.0 -Wound/Ulcer Outcome Not Healed Not Healed -Ulcer Cleansing Rinsed/ Rinsed/ Irrigated with Irrigated with Saline Saline -Foul Odor after Cleansing No No -Bioengineered Tissue No No -Bleeding Controlled with Pressure Pressure -Offloading No -Treatment Response Procedure Procedure Tolerated Well Tolerated Well Pain Scale: 0-10 Numeric Is Patient Pain Free? Yes Yes Wound debrided: Left groin and abdominal fold ulcers Type of Debridement: Excisional debridement Anesthesia Used: 5% Lidocaine Gel Depth: in the subcutaneous layer Percentage of wound debrided: 100 Instrument Used: 5mm curette Tissue Removed: Slough and devitalized tissue Severity: Fat Layer Exposed Amount of bleeding with debridement: Mild Bleeding Controlled with: Pressure Patient tolerated procedure well Assessment/Plan Assessment: Nonhealing postsurgical wound left groin status post surgical excision of necrotizing fasciitis. Bilateral lower extremity edema. Morbid obesity. Type 2 diabetes mellitus Plan: The patient was seen and examined at the wound center today and was updated on the plan of care. A subcutaneous debridement was performed today. The patient tolerated the procedure well. The patients wound care will consist of: hydrofera blue/Aquacell extra change daily and as needed cover with gauze. Did discuss with patient that to prevent maceration, after he showers he should make sure that his wounds are adequately dried before applying the dressings. Wound cultures were collected prior and essentially negative. Baseline bloodwork reviewed which demonstrated a slightly low pre-albumin and patient was advised to use Glucerna or high-protein with meals. Repeat lab work WNL. Prealbumin WNL now. Previous records were requested for continuity of care. Patient educated on the importance of diet on wound healing and instructed to increase protein and vitamin C intake. Patient verbalized understanding. Plastic surgery consultation - no surgery indicated. Did discuss with patient the importance of blood sugar control in wound healing, recent A1C in 02/2018 was 6.1. Patient to follow-up in 1 week or sooner if needed. Patient is on a complex wound plan. This note was generated with [employer] dictation software. It may contain incorrect words, spelling, and punctuation that were not noted in checking the note before signing. Code Visit 111xxx-113xx: [id number] Jessica subq tissue 20 sq cm/<
== END 2018-09-19 23:59 ==
LOC: WC 16:00
PROVIDERS: Family Provider Family Medicine; PCP Family Medicine; Visit Provider Nurse Practitioner Family
DX: E11.622 Type 2 diabetes mellitus with other skin ulcer (principal); L98.492 Non-pressure chronic ulcer of skin of other sites with fat layer exposed; I89.0 Lymphedema, not elsewhere classified; E66.01 Morbid (severe) obesity due to excess calories; Z68.43 Body mass index [BMI] 50.0-59.9, adult; Z71.3 Dietary counseling and surveillance; E11.42 Type 2 diabetes mellitus with diabetic polyneuropathy
CPT/HCPCS: 11042; 11045; 87070; 87075; 87205; 87640

== ENCOUNTER 2018-10-08 11:30 | Outpatient (RCR) | payer MEDICARE, MEDICAID, SELFPAY ==
[2018-09-20 00:43] VITALS: BP 152/76; PULSE 85; RESP 20; TEMP 36
[2018-09-25 16:03] VITALS: BP 147/70; PULSE 87; RESP 16; TEMP 36.5
--- NOTE | 2018-09-28 15:30 | PCM.WC.PN ---
(1) Non-healing surgical wound of left groin Status: Acute Qualifiers: Code(s): T81.89XA - Other complications of procedures, not elsewhere classified, initial encounter (2) History of necrotising fasciitis Status: Acute Code(s): Z87.39 - Personal history of other diseases of the musculoskeletal system and connective tissue (3) Lymphedema of both lower extremities Status: Acute Code(s): I89.0 - Lymphedema, not elsewhere classified (4) Morbid obesity Status: Acute Code(s): E66.01 - Morbid (severe) obesity due to excess calories (5) Skin ulcer of abdominal wall with fat layer exposed Status: Acute Code(s): L98.492 - Non-pressure chronic ulcer of skin of other sites with fat layer exposed Comment: left abdominal fold (6) Type 2 diabetes mellitus Status: Acute Qualifiers: Code(s): E11.9 - Type 2 diabetes mellitus without complications Type of Wound Date of Service: 09/25/18 Chief Complaint: Nonhealing wound status post surgical excision of necrotizing fasciitis left groin History of Wound: 46-year-old white male who presents to the wound healing center today with complaint of left groin ulceration status post surgical excision of necrotizing fasciitis. He is a past medical history which is significant for that of type 2 diabetes mellitus, gout, diabetic neuropathy, schizophrenia, bilateral lymphedema, and schizophrenia. The patient states that what initially started as a pimple in his left groin progressed to necrotizing fasciitis and he had to have this surgically debrided in April 2017. He was admitted to [facility] for 2 weeks and then [facility] for 6 weeks afterwards. He states that the groin ulcer which extends to his left lower abdomen has been slowly improving and he has been doing daily Aquacel AG dressings with an ABD for the drainage. He does state that he has had 3 wound vacs in the past which were unable to be utilized due to the location of his wound. He denies any foul-smelling discharge or systemic signs of infection at this time. The patient otherwise denies any fever, chills, nausea, vomiting, shortness of breath, chest pain or pressure, palpitations, orthopnea, syncope or presyncopal episodes. Progress of Wound: Wounds no longer macerated, wound beds are moist and clean and without signs of gross infection at this time, Patient continues to increase his oral protein supplementation with whey protein. Continues to have small amount of serosanguineous drainage from left groin wound. The patient otherwise denies any fever, chills, nausea, vomiting, shortness of breath, chest pain or pressure, palpitations, orthopnea, lower extremity edema, syncope or presyncopal episodes. - Physical Exam Vital Signs Temp Pulse Resp BP 97.7 F L 87 16 147/70 H 09/25/18 16:03 09/25/18 16:03 09/25/18 16:03 09/25/18 16:03 General: Alert, Oriented x3, Cooperative, No apparent distress HEENT: PERRLA, EOMI Neck: Supple, No JVD Lungs: Clear to auscultation Cardiovascular: Regular rate, Regular Rhythm Abdomen: Soft, Non Tender, Obese Extremities: No edema, Capillary Refill Less than 3 Seconds Skin: Ulcer/ Wound - ulcers to left groin and abdominal fold with slough, no signs on infection Wound Measurements and Assessment WC - Nurse 1 - General Ulcer Measurement Start: 09/25/18 16:02 Freq: Status: Active Protocol: Activity Type Activity Date Activity User E-Sign Co-Sign Detail Recorded Client Recorded Date Recorded By Document 09/25/18 16:03 [facility] [id number] 09/25/18 16:10 [facility] 09/25/18 16:03 Wound Center Nurse 1 [Ulcer Assessment] #2 Left Abdominal Fold -Combined with other wound No -Current Size (cm) - Length 0.2 -Current Size (cm) - Width 1.2 -Current Size (cm) - Depth 0.1 -Total Square Cm 0.24 -Date of Last Picture (Recall this 09/25/18 field) -Photo Taken Yes -Epithelialization None Present -Tunneling No -Undermining/Tunneling No -Circular Undermining No -Exudate Amt Small -Exudate Type Serosanguineous -Wound Margin Distinct, Outline Attached -Granulation Amt Large (67-100%) -Granulation Quality Red -Slough/Fibrin No -Necrosis Amt None Present (0 %) -Texture (Inessa-wound Skin Appearance) Assessed Scarring -Moisture (Inessa-wound Skin Appearance Assessed ) -Color (Inessa-wound Skin Appearance) Assessed -Temperature (Inessa-wound Skin No Abnormality Appearance) (Pt Warm) -Tenderness on Palpation (Inessa-wound No Skin Appearance) -Ulcer Cleansing Wound Cleanser -Foul Odor after Cleansing No -Anesthetic Used 5% Lidocaine Gel #1- LEFT GROIN- POST OP -Combined with other wound No -Current Size (cm) - Length 2 -Current Size (cm) - Width 12.2 -Current Size (cm) - Depth 0.1 -Total Square Cm 24.4 -Date of Last Picture (Recall this 09/25/18 field) -Photo Taken Yes -Epithelialization None Present -Tunneling No -Undermining/Tunneling No -Circular Undermining No -Exudate Amt Medium -Exudate Type Serosanguineous -Granulation Amt Large (67-100%) -Granulation Quality Red -Slough/Fibrin No -Necrosis Amt None Present (0 %) -Texture (Inessa-wound Skin Appearance) Assessed Scarring -Moisture (Inessa-wound Skin Appearance Assessed ) -Color (Inessa-wound Skin Appearance) Assessed -Temperature (Inessa-wound Skin No Abnormality Appearance) (Pt Warm) -Tenderness on Palpation (Inessa-wound No Skin Appearance) -Ulcer Cleansing Wound Cleanser -Foul Odor after Cleansing No -Anesthetic Used 5% Lidocaine Gel WC - Nurse 2 - General Ulcer CM Notes Start: 09/25/18 16:02 Freq: Status: Active Protocol: Activity Type Activity Date Activity User E-Sign Co-Sign Detail Recorded Client Recorded Date Recorded By Document 09/25/18 16:32 AN [id number] 09/25/18 16:38 AN 09/25/18 16:32 Wound Center Nurse 2 [Procedure/Treatment] #2 Left Abdominal Fold -Time 16:33 -Correct Patient Yes -Correct Side, Site, Position Yes -Correct Procedure Yes -Procedure Performed Yes -Type of Procedure Debridement -Clinical Debridement Subcutaneous -Post Debridement Size (cm) - Length 0.4 -Post Debridement Size (cm) - Width 1.4 -Post Debridement Size (cm) - Depth 0.1 -Total Square Cm 0.56 -Wound/Ulcer Outcome Not Healed -Ulcer Cleansing Rinsed/ Irrigated with Saline -Foul Odor after Cleansing No -Bioengineered Tissue No -Type of Offloading Total Contact Cast (TCC) -Treatment Response Procedure Tolerated Well #1- LEFT GROIN- POST OP -Time 16:34 -Correct Patient Yes -Correct Side, Site, Position Yes -Correct Procedure Yes -Procedure Performed Yes -Type of Procedure Debridement -Clinical Debridement Subcutaneous -Post Debridement Size (cm) - Length 2.4 -Post Debridement Size (cm) - Width 12.8 -Post Debridement Size (cm) - Depth 0.1 -Total Square Cm 30.72 -Wound/Ulcer Outcome Not Healed -Ulcer Cleansing Rinsed/ Irrigated with Saline -Treatment Response Procedure Tolerated Well [See Physician Procedure note for Specifics] Pain Scale: 0-10 Numeric [Pain] -Is Patient Pain Free? Yes Neurological: Neuro grossly intact Psych/Mental Status: Normal Affect, Appropriate Debridement Note Post-Debridement Measurements/Treatment WC - Nurse 2 - General Ulcer CM Notes Start: 09/25/18 16:02 Freq: Status: Active Protocol: Activity Type Activity Date Activity User E-Sign Co-Sign Detail Recorded Client Recorded Date Recorded By Document 09/25/18 16:32 AN [id number] 09/25/18 16:38 AN 09/25/18 16:32 Wound Center Nurse 2 #2 Left Abdominal Fold -Time 16:33 -Correct Patient Yes -Correct Side, Site, Position Yes -Correct Procedure Yes -Procedure Performed Yes -Type of Procedure Debridement -Clinical Debridement Subcutaneous -Post Debridement Size (cm) - Length 0.4 -Post Debridement Size (cm) - Width 1.4 -Post Debridement Size (cm) - Depth 0.1 -Total Square Cm 0.56 -Wound/Ulcer Outcome Not Healed -Ulcer Cleansing Rinsed/ Irrigated with Saline -Foul Odor after Cleansing No -Bioengineered Tissue No -Type of Offloading Total Contact Cast (TCC) -Treatment Response Procedure Tolerated Well #1- LEFT GROIN- POST OP -Time 16:34 -Correct Patient Yes -Correct Side, Site, Position Yes -Correct Procedure Yes -Procedure Performed Yes -Type of Procedure Debridement -Clinical Debridement Subcutaneous -Post Debridement Size (cm) - Length 2.4 -Post Debridement Size (cm) - Width 12.8 -Post Debridement Size (cm) - Depth 0.1 -Total Square Cm 30.72 -Wound/Ulcer Outcome Not Healed -Ulcer Cleansing Rinsed/ Irrigated with Saline -Treatment Response Procedure Tolerated Well Pain Scale: 0-10 Numeric Is Patient Pain Free? Yes Wound debrided: left groin and abdominal fold ulcer Type of Debridement: Excisional debridement Anesthesia Used: 5% Lidocaine Gel Depth: in the subcutaneous layer Percentage of wound debrided: 100 Instrument Used: 5mm curette Tissue Removed: slough and devitalized tissue Severity: Fat Layer Exposed Amount of bleeding with debridement: None Bleeding Controlled with: Pressure Patient tolerated procedure well Assessment/Plan Assessment: Nonhealing postsurgical wound left groin status post surgical excision of necrotizing fasciitis. Bilateral lower extremity edema. Morbid obesity. Type 2 diabetes mellitus Plan: The patient was seen and examined at the wound center today and was updated on the plan of care. A subcutaneous debridement was performed today. The patient tolerated the procedure well. The patients wound care will consist of: hydrofera blue/Aquacell extra change daily and as needed cover with gauze. Did discuss proper drying mechanisms after showering to prevent excess moisture. Baseline bloodwork reviewed which demonstrated a slightly low pre-albumin and patient was advised to use Glucerna or high-protein with meals. Repeat lab work WNL. Prealbumin WNL now. Previous records were requested for continuity of care. Patient educated on the importance of diet on wound healing and instructed to increase protein and vitamin C intake. Patient verbalized understanding. Plastic surgery consultation - no surgery indicated. Did discuss with patient the importance of blood sugar control in wound healing, recent A1C in 02/2018 was 6.1. Patient to follow-up in 1 week or sooner if needed. Patient is on a complex wound plan. This note was generated with [employer] dictation software. It may contain incorrect words, spelling, and punctuation that were not noted in checking the note before signing. Code Visit 111xxx-113xx: 49473 Jessica subq tissue 20 sq cm/< Add On Codes: [id number] Jessica subq tissue add-on
--- NOTE | 2018-09-28 15:34 | PN.PCM_ITS ---
(1) Non-healing surgical wound of left groin Status: Acute Qualifiers: Code(s): T81.89XA - Other complications of procedures, not elsewhere classified, initial encounter (2) History of necrotising fasciitis Status: Acute Code(s): Z87.39 - Personal history of other diseases of the musculoskeletal system and connective tissue (3) Lymphedema of both lower extremities Status: Acute Code(s): I89.0 - Lymphedema, not elsewhere classified (4) Morbid obesity Status: Acute Code(s): E66.01 - Morbid (severe) obesity due to excess calories (5) Skin ulcer of abdominal wall with fat layer exposed Status: Acute Code(s): L98.492 - Non-pressure chronic ulcer of skin of other sites with fat layer exposed Comment: left abdominal fold (6) Type 2 diabetes mellitus Status: Acute Qualifiers: Code(s): E11.9 - Type 2 diabetes mellitus without complications Type of Wound Date of Service: 09/25/18 Chief Complaint: Nonhealing wound status post surgical excision of necrotizing fasciitis left groin History of Wound: 46-year-old white male who presents to the wound healing center today with complaint of left groin ulceration status post surgical excision of necrotizing fasciitis. He is a past medical history which is significant for that of type 2 diabetes mellitus, gout, diabetic neuropathy, schizophrenia, bilateral lymphedema, and schizophrenia. The patient states that what initially started as a pimple in his left groin progressed to necrotizing fasciitis and he had to have this surgically debrided in April 2017. He was admitted to [facility] for 2 weeks and then [facility] for 6 weeks afterwards. He states that the groin ulcer which extends to his left lower abdomen has been slowly improving and he has been doing daily Aquacel AG dressings with an ABD for the drainage. He does state that he has had 3 wound vacs in the past which were unable to be utilized due to the location of his wound. He denies any foul-smelling discharge or systemic signs of infection at this time. The patient otherwise denies any fever, chills, nausea, vomiting, shortness of breath, chest pain or pressure, palpitations, orthopnea, syncope or presyncopal episodes. Progress of Wound: Wounds no longer macerated, wound beds are moist and clean and without signs of gross infection at this time, Patient continues to increase his oral protein supplementation with whey protein. Continues to have small amount of serosanguineous drainage from left groin wound. The patient otherwise denies any fever, chills, nausea, vomiting, shortness of breath, chest pain or pressure, palpitations, orthopnea, lower extremity edema, syncope or presyncopal episodes. - Physical Exam Vital Signs Temp Pulse Resp BP 97.7 F L 87 16 147/70 H 09/25/18 16:03 09/25/18 16:03 09/25/18 16:03 09/25/18 16:03 General: Alert, Oriented x3, Cooperative, No apparent distress HEENT: PERRLA, EOMI Neck: Supple, No JVD Lungs: Clear to auscultation Cardiovascular: Regular rate, Regular Rhythm Abdomen: Soft, Non Tender, Obese Extremities: No edema, Capillary Refill Less than 3 Seconds Skin: Ulcer/ Wound - ulcers to left groin and abdominal fold with slough, no signs on infection Wound Measurements and Assessment WC - Nurse 1 - General Ulcer Measurement Start: 09/25/18 16:02 Freq: Status: Active Protocol: Activity Type Activity Date Activity User E-Sign Co-Sign Detail Recorded Client Recorded Date Recorded By Document 09/25/18 16:03 [facility] [id number] 09/25/18 16:10 [facility] 09/25/18 16:03 Wound Center Nurse 1 [Ulcer Assessment] #2 Left Abdominal Fold -Combined with other wound No -Current Size (cm) - Length 0.2 -Current Size (cm) - Width 1.2 -Current Size (cm) - Depth 0.1 -Total Square Cm 0.24 -Date of Last Picture (Recall this 09/25/18 field) -Photo Taken Yes -Epithelialization None Present -Tunneling No -Undermining/Tunneling No -Circular Undermining No -Exudate Amt Small -Exudate Type Serosanguineous -Wound Margin Distinct, Outline Attached -Granulation Amt Large (67-100%) -Granulation Quality Red -Slough/Fibrin No -Necrosis Amt None Present (0 %) -Texture (Inessa-wound Skin Appearance) Assessed Scarring -Moisture (Inessa-wound Skin Appearance Assessed ) -Color (Inessa-wound Skin Appearance) Assessed -Temperature (Inessa-wound Skin No Abnormality Appearance) (Pt Warm) -Tenderness on Palpation (Inessa-wound No Skin Appearance) -Ulcer Cleansing Wound Cleanser -Foul Odor after Cleansing No -Anesthetic Used 5% Lidocaine Gel #1- LEFT GROIN- POST OP -Combined with other wound No -Current Size (cm) - Length 2 -Current Size (cm) - Width 12.2 -Current Size (cm) - Depth 0.1 -Total Square Cm 24.4 -Date of Last Picture (Recall this 09/25/18 field) -Photo Taken Yes -Epithelialization None Present -Tunneling No -Undermining/Tunneling No -Circular Undermining No -Exudate Amt Medium -Exudate Type Serosanguineous -Granulation Amt Large (67-100%) -Granulation Quality Red -Slough/Fibrin No -Necrosis Amt None Present (0 %) -Texture (Inessa-wound Skin Appearance) Assessed Scarring -Moisture (Inessa-wound Skin Appearance Assessed ) -Color (Inessa-wound Skin Appearance) Assessed -Temperature (Inessa-wound Skin No Abnormality Appearance) (Pt Warm) -Tenderness on Palpation (Inessa-wound No Skin Appearance) -Ulcer Cleansing Wound Cleanser -Foul Odor after Cleansing No -Anesthetic Used 5% Lidocaine Gel WC - Nurse 2 - General Ulcer CM Notes Start: 09/25/18 16:02 Freq: Status: Active Protocol: Activity Type Activity Date Activity User E-Sign Co-Sign Detail Recorded Client Recorded Date Recorded By Document 09/25/18 16:32 AN [id number] 09/25/18 16:38 AN 09/25/18 16:32 Wound Center Nurse 2 [Procedure/Treatment] #2 Left Abdominal Fold -Time 16:33 -Correct Patient Yes -Correct Side, Site, Position Yes -Correct Procedure Yes -Procedure Performed Yes -Type of Procedure Debridement -Clinical Debridement Subcutaneous -Post Debridement Size (cm) - Length 0.4 -Post Debridement Size (cm) - Width 1.4 -Post Debridement Size (cm) - Depth 0.1 -Total Square Cm 0.56 -Wound/Ulcer Outcome Not Healed -Ulcer Cleansing Rinsed/ Irrigated with Saline -Foul Odor after Cleansing No -Bioengineered Tissue No -Type of Offloading Total Contact Cast (TCC) -Treatment Response Procedure Tolerated Well #1- LEFT GROIN- POST OP -Time 16:34 -Correct Patient Yes -Correct Side, Site, Position Yes -Correct Procedure Yes -Procedure Performed Yes -Type of Procedure Debridement -Clinical Debridement Subcutaneous -Post Debridement Size (cm) - Length 2.4 -Post Debridement Size (cm) - Width 12.8 -Post Debridement Size (cm) - Depth 0.1 -Total Square Cm 30.72 -Wound/Ulcer Outcome Not Healed -Ulcer Cleansing Rinsed/ Irrigated with Saline -Treatment Response Procedure Tolerated Well [See Physician Procedure note for Specifics] Pain Scale: 0-10 Numeric [Pain] -Is Patient Pain Free? Yes Neurological: Neuro grossly intact Psych/Mental Status: Normal Affect, Appropriate Debridement Note Post-Debridement Measurements/Treatment WC - Nurse 2 - General Ulcer CM Notes Start: 09/25/18 16:02 Freq: Status: Active Protocol: Activity Type Activity Date Activity User E-Sign Co-Sign Detail Recorded Client Recorded Date Recorded By Document 09/25/18 16:32 AN [id number] 09/25/18 16:38 AN 09/25/18 16:32 Wound Center Nurse 2 #2 Left Abdominal Fold -Time 16:33 -Correct Patient Yes -Correct Side, Site, Position Yes -Correct Procedure Yes -Procedure Performed Yes -Type of Procedure Debridement -Clinical Debridement Subcutaneous -Post Debridement Size (cm) - Length 0.4 -Post Debridement Size (cm) - Width 1.4 -Post Debridement Size (cm) - Depth 0.1 -Total Square Cm 0.56 -Wound/Ulcer Outcome Not Healed -Ulcer Cleansing Rinsed/ Irrigated with Saline -Foul Odor after Cleansing No -Bioengineered Tissue No -Type of Offloading Total Contact Cast (TCC) -Treatment Response Procedure Tolerated Well #1- LEFT GROIN- POST OP -Time 16:34 -Correct Patient Yes -Correct Side, Site, Position Yes -Correct Procedure Yes -Procedure Performed Yes -Type of Procedure Debridement -Clinical Debridement Subcutaneous -Post Debridement Size (cm) - Length 2.4 -Post Debridement Size (cm) - Width 12.8 -Post Debridement Size (cm) - Depth 0.1 -Total Square Cm 30.72 -Wound/Ulcer Outcome Not Healed -Ulcer Cleansing Rinsed/ Irrigated with Saline -Treatment Response Procedure Tolerated Well Pain Scale: 0-10 Numeric Is Patient Pain Free? Yes Wound debrided: left groin and abdominal fold ulcer Type of Debridement: Excisional debridement Anesthesia Used: 5% Lidocaine Gel Depth: in the subcutaneous layer Percentage of wound debrided: 100 Instrument Used: 5mm curette Tissue Removed: slough and devitalized tissue Severity: Fat Layer Exposed Amount of bleeding with debridement: None Bleeding Controlled with: Pressure Patient tolerated procedure well Assessment/Plan Assessment: Nonhealing postsurgical wound left groin status post surgical excision of necrotizing fasciitis. Bilateral lower extremity edema. Morbid obesity. Type 2 diabetes mellitus Plan: The patient was seen and examined at the wound center today and was updated on the plan of care. A subcutaneous debridement was performed today. The patient tolerated the procedure well. The patients wound care will consist of: hydrofera blue/Aquacell extra change daily and as needed cover with gauze. Did discuss proper drying mechanisms after showering to prevent excess moisture. Baseline bloodwork reviewed which demonstrated a slightly low pre-albumin and patient was advised to use Glucerna or high-protein with meals. Repeat lab work WNL. Prealbumin WNL now. Previous records were requested for continuity of care. Patient educated on the importance of diet on wound healing and instructed to increase protein and vitamin C intake. Patient verbalized understanding. Plastic surgery consultation - no surgery indicated. Did discuss with patient the importance of blood sugar control in wound healing, recent A1C in 02/2018 was 6.1. Patient to follow-up in 1 week or sooner if needed. Patient is on a complex wound plan. This note was generated with [employer] dictation software. It may contain incorrect words, spelling, and punctuation that were not noted in checking the note before signing. Code Visit 111xxx-113xx: 72686 Jessica subq tissue 20 sq cm/< Add On Codes: [id number] Jessica subq tissue add-on
[2018-10-08 11:57] VITALS: BP 153/80; PULSE 85; RESP 16; TEMP 35.6
--- NOTE | 2018-10-08 12:50 | PCM.WC.PN ---
(1) Non-healing surgical wound of left groin Status: Chronic Current Visit: Yes Qualifiers: Code(s): T81.89XA - Other complications of procedures, not elsewhere classified, initial encounter (2) Type 2 diabetes mellitus Status: Chronic Current Visit: Yes Qualifiers: Code(s): E11.9 - Type 2 diabetes mellitus without complications (3) Diabetic neuropathy Status: Chronic Current Visit: Yes Code(s): E11.40 - Type 2 diabetes mellitus with diabetic neuropathy, unspecified (4) Morbid obesity Status: Chronic Current Visit: Yes Code(s): E66.01 - Morbid (severe) obesity due to excess calories (5) History of necrotising fasciitis Status: Acute Current Visit: Yes Code(s): Z87.39 - Personal history of other diseases of the musculoskeletal system and connective tissue Type of Wound Date of Service: 10/10/18 Chief Complaint: Nonhealing wound status post surgical excision of necrotizing fasciitis left groin History of Wound: 46-year-old white male who presents to the wound healing center today with complaint of left groin ulceration status post surgical excision of necrotizing fasciitis. He is a past medical history which is significant for that of type 2 diabetes mellitus, gout, diabetic neuropathy, schizophrenia, bilateral lymphedema, and schizophrenia. The patient states that what initially started as a pimple in his left groin progressed to necrotizing fasciitis and he had to have this surgically debrided in April 2017. He was admitted to [facility] for 2 weeks and then [facility] for 6 weeks afterwards. He states that the groin ulcer which extends to his left lower abdomen has been slowly improving and he has been doing daily Aquacel AG dressings with an ABD for the drainage. He does state that he has had 3 wound vacs in the past which were unable to be utilized due to the location of his wound. He denies any foul-smelling discharge or systemic signs of infection at this time. The patient otherwise denies any fever, chills, nausea, vomiting, shortness of breath, chest pain or pressure, palpitations, orthopnea, syncope or presyncopal episodes. Progress of Wound: Left groin wound is improved. The more lateral wound is almost healed. No maceration seen. - Physical Exam Vital Signs Temp Pulse Resp BP 96.0 F L 85 16 153/80 H 10/08/18 11:57 10/08/18 11:57 10/08/18 11:57 10/08/18 11:57 General: Alert, Oriented x3, Cooperative HEENT: Atraumatic Oral: Moist Mucosa Lungs: Normal air movement Cardiovascular: Regular rate Abdomen: Obese Extremities: Capillary Refill Less than 3 Seconds, Edema Skin: Ulcer/ Wound - 2 ulcers of the left groin, lateral ulcer is almost healed. Areas clean with no maceration. Wound Measurements and Assessment WC - Nurse 1 - General Ulcer Measurement Start: 09/25/18 16:02 Freq: Status: Active Protocol: Activity Type Activity Date Activity User E-Sign Co-Sign Detail Recorded Client Recorded Date Recorded By Document 10/08/18 11:57 DL [id number] 10/08/18 12:05 DL 10/08/18 11:57 Wound Center Nurse 1 [Ulcer Assessment] #2 Left Abdominal Fold -Combined with other wound No -Current Size (cm) - Length 0.3 -Current Size (cm) - Width 0.6 -Current Size (cm) - Depth 0.2 -Total Square Cm 0.18 -Photo Taken No -Epithelialization None Present -Tunneling No -Undermining/Tunneling No -Exudate Amt Small -Exudate Type Serosanguineous -Wound Margin Distinct, Outline Attached -Granulation Amt Medium (34-66%) -Granulation Quality Red -Slough/Fibrin Yes -Necrosis Amt None Present (0 %) -Necrotic Tissue Type Adherent Slough -Structure Exposed None/Limited to Skin Breakdown -Texture (Inessa-wound Skin Appearance) Scarring -Moisture (Inessa-wound Skin Appearance No Abnormality, ) Assessed -Color (Inessa-wound Skin Appearance) No Abnormality, Assessed -Temperature (Inessa-wound Skin No Abnormality Appearance) (Pt Warm) -Tenderness on Palpation (Inessa-wound No Skin Appearance) -Ulcer Cleansing Rinsed/ Irrigated with Saline -Foul Odor after Cleansing No -Anesthetic Used 5% Lidocaine Gel #1- LEFT GROIN- POST OP -Combined with other wound No -Current Size (cm) - Length 2.5 -Current Size (cm) - Width 11 -Current Size (cm) - Depth 0.1 -Total Square Cm 27.5 -Photo Taken No -Epithelialization None Present -Tunneling No -Undermining/Tunneling No -Circular Undermining No -Exudate Amt Small -Exudate Type Serosanguineous -Wound Margin Distinct, Outline Attached -Granulation Amt Medium (34-66%) -Granulation Quality Red -Slough/Fibrin Yes -Necrosis Amt None Present (0 %) -Necrotic Tissue Type Adherent Slough -Structure Exposed None/Limited to Skin Breakdown -Texture (Inessa-wound Skin Appearance) Scarring -Moisture (Inessa-wound Skin Appearance No Abnormality, ) Assessed -Color (Inessa-wound Skin Appearance) No Abnormality, Assessed -Temperature (Inessa-wound Skin No Abnormality Appearance) (Pt Warm) -Tenderness on Palpation (Inessa-wound No Skin Appearance) -Ulcer Cleansing Rinsed/ Irrigated with Saline -Anesthetic Used 5% Lidocaine Gel [Edema Assessment] -Lower Limb Edema Present NA WC - Nurse 2 - General Ulcer CM Notes Start: 09/25/18 16:02 Freq: Status: Active Protocol: Activity Type Activity Date Activity User E-Sign Co-Sign Detail Recorded Client Recorded Date Recorded By Document 10/08/18 12:28 [email or web address] [id number] 10/08/18 12:30 CRESENCIO 10/08/18 12:28 Wound Center Nurse 2 [Procedure/Treatment] #2 Left Abdominal Fold -Time 12:29 -Correct Patient Yes -Correct Side, Site, Position Yes -Correct Procedure Yes -Procedure Performed Yes -Type of Procedure Debridement -Clinical Debridement Subcutaneous -Post Debridement Size (cm) - Length 0.3 -Post Debridement Size (cm) - Width 0.9 -Post Debridement Size (cm) - Depth 0.2 -Total Square Cm 0.27 -Wound/Ulcer Outcome Not Healed -Ulcer Cleansing Rinsed/ Irrigated with Saline -Foul Odor after Cleansing No -Bioengineered Tissue No -Bleeding Controlled with Pressure -Offloading No -Treatment Response Procedure Tolerated Well #1- LEFT GROIN- POST OP -Time 12:29 -Correct Patient Yes -Correct Side, Site, Position Yes -Correct Procedure Yes -Procedure Performed Yes -Type of Procedure Debridement -Clinical Debridement Subcutaneous -Post Debridement Size (cm) - Length 2.2 -Post Debridement Size (cm) - Width 10.7 -Post Debridement Size (cm) - Depth 0.1 -Total Square Cm 23.54 -Wound/Ulcer Outcome Not Healed -Ulcer Cleansing Rinsed/ Irrigated with Saline -Foul Odor after Cleansing No -Bioengineered Tissue No -Bleeding Controlled with Pressure -Offloading No -Treatment Response Procedure Tolerated Well [See Physician Procedure note for Specifics] Pain Scale: 0-10 Numeric [Pain] -Is Patient Pain Free? Yes Musculoskeletal: No Tenderness to Palpation of Joints or Extremities Neurological: Neuro grossly intact Psych/Mental Status: Normal Affect, Appropriate Debridement Note Post-Debridement Measurements/Treatment WC - Nurse 2 - General Ulcer CM Notes Start: 09/25/18 16:02 Freq: Status: Active Protocol: Activity Type Activity Date Activity User E-Sign Co-Sign Detail Recorded Client Recorded Date Recorded By Document 09/25/18 16:32 AN [id number] 09/25/18 16:38 AN Document 10/08/18 12:28 JF [id number] 10/08/18 12:30 JF 09/25/18 10/08/18 16:32 12:28 Wound Center Nurse 2 #2 Left Abdominal Fold -Time 16:33 12:29 -Correct Patient Yes Yes -Correct Side, Site, Position Yes Yes -Correct Procedure Yes Yes -Procedure Performed Yes Yes -Type of Procedure Debridement Debridement -Clinical Debridement Subcutaneous Subcutaneous -Post Debridement Size (cm) - Length 0.4 0.3 -Post Debridement Size (cm) - Width 1.4 0.9 -Post Debridement Size (cm) - Depth 0.1 0.2 -Total Square Cm 0.56 0.27 -Wound/Ulcer Outcome Not Healed Not Healed -Ulcer Cleansing Rinsed/ Rinsed/ Irrigated with Irrigated with Saline Saline -Foul Odor after Cleansing No No -Bioengineered Tissue No No -Bleeding Controlled with Pressure -Offloading No -Type of Offloading Total Contact Cast (TCC) -Treatment Response Procedure Procedure Tolerated Well Tolerated Well #1- LEFT GROIN- POST OP -Time 16:34 12:29 -Correct Patient Yes Yes -Correct Side, Site, Position Yes Yes -Correct Procedure Yes Yes -Procedure Performed Yes Yes -Type of Procedure Debridement Debridement -Clinical Debridement Subcutaneous Subcutaneous -Post Debridement Size (cm) - Length 2.4 2.2 -Post Debridement Size (cm) - Width 12.8 10.7 -Post Debridement Size (cm) - Depth 0.1 0.1 -Total Square Cm 30.72 23.54 -Wound/Ulcer Outcome Not Healed Not Healed -Ulcer Cleansing Rinsed/ Rinsed/ Irrigated with Irrigated with Saline Saline -Foul Odor after Cleansing No -Bioengineered Tissue No -Bleeding Controlled with Pressure -Offloading No -Treatment Response Procedure Procedure Tolerated Well Tolerated Well Pain Scale: 0-10 Numeric Is Patient Pain Free? Yes Yes Wound debrided: Left groin and medial ulcer Type of Debridement: Excisional debridement Anesthesia Used: 5% Lidocaine Gel Depth: Down to and including healthy tissue, in the subcutaneous layer Percentage of wound debrided: 100 Instrument Used: 3mm curette Tissue Removed: Subcutaneous tissue and slough Severity: Fat Layer Exposed Amount of bleeding with debridement: Mild Bleeding Controlled with: Pressure Patient tolerated procedure well - Additional Wound Wound debrided: Left groin lateral ulcer Type of Debridement: Excisional debridement Anesthesia Used: 4% Lidocaine Solution Depth: Down to and including healthy tissue, in the subcutaneous layer Percentage of wound debrided: 100 Instrument Used: 3mm curette Tissue Removed: Subcutaneous tissue and slough Severity: Limited To Skin Breakdown Amount of bleeding with debridement: Mild Bleeding Controlled with: Pressure Patient tolerated procedure: Patient tolerated procedure well Assessment/Plan Active Problems History of necrotising fasciitis (Acute) Type 2 diabetes mellitus (Chronic) Diabetic neuropathy (Chronic) Morbid obesity (Chronic) Non-healing surgical wound of left groin (Chronic) Assessment: Nonhealing postsurgical wound left groin status post surgical excision of necrotizing fasciitis. Bilateral lower extremity edema. Morbid obesity. Type 2 diabetes mellitus Plan: This is a courtesy visit today. The patient was seen and examined at the wound center today and was updated on the plan of care. A subcutaneous debridement was performed today. The patient tolerated the procedure well. The patients wound care will consist of: hydrofera blue/Aquacell extra change daily and as needed cover with gauze. Did discuss proper drying mechanisms after showering to prevent excess moisture. Baseline bloodwork reviewed which demonstrated a slightly low pre-albumin and patient was advised to use Glucerna or high-protein with meals. Repeat lab work WNL. Prealbumin WNL now. Previous records were requested for continuity of care. Patient educated on the importance of diet on wound healing and instructed to increase protein and vitamin C intake. Patient verbalized understanding. Plastic surgery consultation - no surgery indicated. Did discuss with patient the importance of blood sugar control in wound healing, recent A1C in 02/2018 was 6.1. Patient to follow-up in 1 week or sooner if needed. Patient is on a complex wound plan. This note was generated with [employer] software. It may contain incorrect words, spelling, and punctuation that were not noted in checking the note before signing. Follow-up in 1 week with Gianni Neil. Code Visit 111xxx-113xx: [id number] Jessica subq tissue 20 sq cm/< Add On Codes: [id number] Jessica subq tissue add-on
[2018-10-16 16:00] VITALS: BP 137/78; PULSE 98; RESP 18; TEMP 36.9
--- NOTE | 2018-10-16 20:58 | PN.PCM_ITS ---
(1) Non-healing surgical wound of left groin Status: Chronic Qualifiers: Code(s): T81.89XA - Other complications of procedures, not elsewhere classified, initial encounter (2) History of necrotising fasciitis Status: Acute Code(s): Z87.39 - Personal history of other diseases of the musculoskeletal system and connective tissue (3) Lymphedema of both lower extremities Status: Acute Code(s): I89.0 - Lymphedema, not elsewhere classified (4) Morbid obesity Status: Chronic Code(s): E66.01 - Morbid (severe) obesity due to excess calories (5) Skin ulcer of abdominal wall with fat layer exposed Status: Acute Code(s): L98.492 - Non-pressure chronic ulcer of skin of other sites with fat layer exposed Comment: left abdominal fold (6) Type 2 diabetes mellitus Status: Chronic Qualifiers: Code(s): E11.9 - Type 2 diabetes mellitus without complications Type of Wound Date of Service: 10/16/18 Chief Complaint: Nonhealing wound status post surgical excision of necrotizing fasciitis left groin History of Wound: 46-year-old white male who presents to the wound healing center today with complaint of left groin ulceration status post surgical excision of necrotizing fasciitis. He is a past medical history which is significant for that of type 2 diabetes mellitus, gout, diabetic neuropathy, schizophrenia, bilateral lymphedema, and schizophrenia. The patient states that what initially started as a pimple in his left groin progressed to necrotizing fasciitis and he had to have this surgically debrided in April 2017. He was admitted to [facility] for 2 weeks and then [facility] for 6 weeks afterwards. He states that the groin ulcer which extends to his left lower abdomen has been slowly improving and he has been doing daily Aquacel AG dressings with an ABD for the drainage. He does state that he has had 3 wound vacs in the past which were unable to be utilized due to the location of his wound. He denies any foul-smelling discharge or systemic signs of infection at this time. The patient otherwise denies any fever, chills, nausea, vomiting, shortness of breath, chest pain or pressure, palpitations, orthopnea, syncope or presyncopal episodes. Progress of Wound: Left groin wound is stable. The more lateral wound is almost healed. No maceration seen. No signs of infection at this time. - Physical Exam Vital Signs Temp Pulse Resp BP 98.4 F 98 18 137/78 H 10/16/18 16:00 10/16/18 16:00 10/16/18 16:00 10/16/18 16:00 General: Alert, Oriented x3, Cooperative, No apparent distress HEENT: Atraumatic Oral: Moist Mucosa Lungs: Clear to auscultation, Normal air movement Cardiovascular: Regular rate Abdomen: Soft, Non Tender, Obese Extremities: No clubbing, No cyanosis, No edema Skin: No rashes, No breakdown, Ulcer/ Wound - Ulceration to left groin and left abdominal fold with soft Wound Measurements and Assessment WC - Nurse 1 - General Ulcer Measurement Start: 09/25/18 16:02 Freq: Status: Active Protocol: Activity Type Activity Date Activity User E-Sign Co-Sign Detail Recorded Client Recorded Date Recorded By Document 10/16/18 16:00 RB [id number] 10/16/18 16:11 RB 10/16/18 16:00 Wound Center Nurse 1 [Ulcer Assessment] #2 Left Abdominal Fold -Combined with other wound No -Current Size (cm) - Length 1.4 -Current Size (cm) - Width 0.3 -Current Size (cm) - Depth 0.2 -Total Square Cm 0.42 -Tunneling No -Undermining/Tunneling No -Circular Undermining No -Exudate Amt Medium -Exudate Type Serosanguineous -Wound Margin Distinct, Outline Attached -Granulation Amt Large (67-100%) -Granulation Quality [place] -Slough/Fibrin Yes -Necrosis Amt Small (1-33%) -Necrotic Tissue Type Adherent Slough -Structure Exposed N/A -Texture (Inessa-wound Skin Appearance) Scarring -Moisture (Inessa-wound Skin Appearance Assessed ) -Color (Inessa-wound Skin Appearance) Assessed -Temperature (Inessa-wound Skin No Abnormality Appearance) (Pt Warm) -Tenderness on Palpation (Inessa-wound No Skin Appearance) -Ulcer Cleansing Rinsed/ Irrigated with Saline -Foul Odor after Cleansing No -Anesthetic Used 5% Lidocaine Gel #1- LEFT GROIN- POST OP -Combined with other wound No -Current Size (cm) - Length 12.5 -Current Size (cm) - Width 1.8 -Current Size (cm) - Depth 0.2 -Total Square Cm 22.50 -Tunneling No -Undermining/Tunneling No -Circular Undermining No -Exudate Amt Medium -Exudate Type Serosanguineous -Wound Margin Thickened -Granulation Amt Large (67-100%) -Granulation Quality [place] -Slough/Fibrin Yes -Necrosis Amt Small (1-33%) -Necrotic Tissue Type Adherent Slough -Structure Exposed Fat Layer Exposed -Texture (Inessa-wound Skin Appearance) Scarring -Moisture (Inessa-wound Skin Appearance Assessed ) -Color (Inessa-wound Skin Appearance) Assessed -Temperature (Inessa-wound Skin No Abnormality Appearance) (Pt Warm) -Tenderness on Palpation (Inessa-wound No Skin Appearance) -Ulcer Cleansing Rinsed/ Irrigated with Saline -Foul Odor after Cleansing No -Anesthetic Used 5% Lidocaine Gel WC - Nurse 2 - General Ulcer CM Notes Start: 09/25/18 16:02 Freq: Status: Active Protocol: Activity Type Activity Date Activity User E-Sign Co-Sign Detail Recorded Client Recorded Date Recorded By Document 10/16/18 17:27 [id number] 10/16/18 17:31 AN 10/16/18 17:27 Wound Center Nurse 2 [Procedure/Treatment] #2 Left Abdominal Fold -Time 17:29 -Correct Patient Yes -Correct Side, Site, Position Yes -Correct Procedure Yes -Procedure Performed Yes -Type of Procedure Debridement -Clinical Debridement Subcutaneous -Post Debridement Size (cm) - Length 0.4 -Post Debridement Size (cm) - Width 1.1 -Post Debridement Size (cm) - Depth 0.1 -Total Square Cm 0.44 -Wound/Ulcer Outcome Not Healed -Ulcer Cleansing Rinsed/ Irrigated with Saline -Bleeding Controlled with Silver Nitrate -Offloading No -Treatment Response Procedure Tolerated Well #1- LEFT GROIN- POST OP -Time 17:30 -Correct Patient Yes -Correct Side, Site, Position Yes -Correct Procedure Yes -Procedure Performed Yes -Type of Procedure Debridement -Clinical Debridement Subcutaneous -Post Debridement Size (cm) - Length 2.0 -Post Debridement Size (cm) - Width 11.6 -Post Debridement Size (cm) - Depth 0.1 -Total Square Cm 23.20 -Wound/Ulcer Outcome Not Healed -Ulcer Cleansing Rinsed/ Irrigated with Saline -Foul Odor after Cleansing No -Bioengineered Tissue No -Bleeding Controlled with Silver Nitrate -Offloading No -Treatment Response Procedure Tolerated Well [See Physician Procedure note for Specifics] Pain Scale: 0-10 Numeric [Pain] -Is Patient Pain Free? Yes Musculoskeletal: No Tenderness to Palpation of Joints or Extremities, No Muscle Wasting Neurological: Neuro grossly intact Psych/Mental Status: Normal Affect, Appropriate, Alert and oriented to time, place, person, mood and affect Debridement Note Post-Debridement Measurements/Treatment WC - Nurse 2 - General Ulcer CM Notes Start: 09/25/18 16:02 Freq: Status: Active Protocol: Activity Type Activity Date Activity User E-Sign Co-Sign Detail Recorded Client Recorded Date Recorded By Document 09/25/18 16:32 AN [id number] 09/25/18 16:38 AN Document 10/08/18 12:28 JF [id number] 10/08/18 12:30 JF Document 10/16/18 17:27 AN [id number] 10/16/18 17:31 AN 09/25/18 10/08/18 10/16/18 16:32 12:28 17:27 Wound Center Nurse 2 #2 Left Abdominal Fold -Time 16:33 12:29 17:29 -Correct Patient Yes Yes Yes -Correct Side, Site, Position Yes Yes Yes -Correct Procedure Yes Yes Yes -Procedure Performed Yes Yes Yes -Type of Procedure Debridement Debridement Debridement -Clinical Debridement Subcutaneous Subcutaneous Subcutaneous -Post Debridement Size (cm) - Length 0.4 0.3 0.4 -Post Debridement Size (cm) - Width 1.4 0.9 1.1 -Post Debridement Size (cm) - Depth 0.1 0.2 0.1 -Total Square Cm 0.56 0.27 0.44 -Wound/Ulcer Outcome Not Healed Not Healed Not Healed -Ulcer Cleansing Rinsed/ Rinsed/ Rinsed/ Irrigated with Irrigated with Irrigated with Saline Saline Saline -Foul Odor after Cleansing No No -Bioengineered Tissue No No -Bleeding Controlled with Pressure Silver Nitrate -Offloading No No -Type of Offloading Total Contact Cast (TCC) -Treatment Response Procedure Procedure Procedure Tolerated Well Tolerated Well Tolerated Well #1- LEFT GROIN- POST OP -Time 16:34 12:29 17:30 -Correct Patient Yes Yes Yes -Correct Side, Site, Position Yes Yes Yes -Correct Procedure Yes Yes Yes -Procedure Performed Yes Yes Yes -Type of Procedure Debridement Debridement Debridement -Clinical Debridement Subcutaneous Subcutaneous Subcutaneous -Post Debridement Size (cm) - Length 2.4 2.2 2.0 -Post Debridement Size (cm) - Width 12.8 10.7 11.6 -Post Debridement Size (cm) - Depth 0.1 0.1 0.1 -Total Square Cm 30.72 23.54 23.20 -Wound/Ulcer Outcome Not Healed Not Healed Not Healed -Ulcer Cleansing Rinsed/ Rinsed/ Rinsed/ Irrigated with Irrigated with Irrigated with Saline Saline Saline -Foul Odor after Cleansing No No -Bioengineered Tissue No No -Bleeding Controlled with Pressure Silver Nitrate -Offloading No No -Treatment Response Procedure Procedure Procedure Tolerated Well Tolerated Well Tolerated Well Pain Scale: 0-10 Numeric Is Patient Pain Free? Yes Yes Yes Wound debrided: Left groin and left abdominal fold ulcer Type of Debridement: Excisional debridement Anesthesia Used: 5% Lidocaine Gel Depth: in the subcutaneous layer Percentage of wound debrided: 100 Instrument Used: 5mm curette Tissue Removed: Slough and devitalized tissue Severity: Fat Layer Exposed Amount of bleeding with debridement: Mild Bleeding Controlled with: Pressure Patient tolerated procedure well Assessment/Plan Assessment: Nonhealing postsurgical wound left groin status post surgical excision of necrotizing fasciitis. Bilateral lower extremity edema. Morbid obesity. Type 2 diabetes mellitus Plan: The patient was seen and examined at the wound center today and was updated on the plan of care. A subcutaneous debridement was performed today. The patient tolerated the procedure well. The patients wound care will consist of: hydrofera blue/Aquacell extra change daily and as needed cover with gauze. Did discuss proper drying mechanisms after showering to prevent excess moisture. Baseline bloodwork reviewed which demonstrated a slightly low pre-albumin and patient was advised to use Glucerna or high-protein with meals. Repeat lab work WNL. Prealbumin WNL now. Previous records were requested for continuity of care. Patient educated on the importance of diet on wound healing and instructed to increase protein and vitamin C intake. Patient verbalized understanding. Plastic surgery consultation - no surgery indicated. Did chana scuss with patient the importance of blood sugar control in wound healing, recent A1C in 02/2018 was 6.1. Patient to follow-up in 1 week or sooner if needed. Patient is on a complex wound plan. This note was generated with [employer] software. It may contain incorrect words, spelling, and punctuation that were not noted in checking the note before signing. Code Visit [id number]: [id number] Jessica subq tissue 20 sq cm/< Add On Codes: 31121 Jessica subq tissue add-on
== END 2018-10-19 23:59 ==
LOC: WC 11:30
PROVIDERS: Family Provider Family Medicine; PCP Family Medicine; Visit Provider Nurse Practitioner Family
DX: E11.622 Type 2 diabetes mellitus with other skin ulcer (principal); I89.0 Lymphedema, not elsewhere classified; E66.01 Morbid (severe) obesity due to excess calories; E11.40 Type 2 diabetes mellitus with diabetic neuropathy, unspecified; L98.492 Non-pressure chronic ulcer of skin of other sites with fat layer exposed; Z68.43 Body mass index [BMI] 50.0-59.9, adult; Z71.3 Dietary counseling and surveillance; Z87.39 Personal history of other diseases of the musculoskeletal system and connective tissue; R60.0 Localized edema
CPT/HCPCS: 11042; 11045

== ENCOUNTER 2018-11-13 15:30 | Outpatient (RCR) | payer MEDICARE, MEDICAID, SELFPAY ==
[2018-10-20 00:29] VITALS: BP 137/78; PULSE 98; RESP 18; TEMP 36.9
[2018-10-31 11:35] VITALS: BP 155/78; PULSE 90; RESP 18; TEMP 36.6
--- NOTE | 2018-10-31 17:13 | HP.PCM_ITS ---
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 insulin use: unspecified adjunct faculty for medical terminology insulin use status Diabetes mellitus complication status: with skin complications Diabetes mellitus complication detail: with other skin ulcer Qualified Code(s): E11.622 - Type 2 diabetes mellitus with other skin ulcer; L98.499 - Non-pressure chronic ulcer of skin of other sites with unspecified severity Code(s): E11.9 - Type 2 diabetes mellitus without complications (3) Morbid obesity Status: Chronic Current Visit: Yes Code(s): E66.01 - Morbid (severe) obesity due to excess calories (4) Non-healing surgical wound of left groin Status: Chronic Current Visit: Yes Qualifiers: Encounter type: subsequent encounter Qualified Code(s): T81.89XD - Other complications of procedures, not elsewhere classified, subsequent encounter Code(s): T81.89XA - Other complications of procedures, not elsewhere classified, initial encounter (5) Non-healing surgical wound Status: Chronic Current Visit: Yes Qualifiers: Encounter type: subsequent encounter Qualified Code(s): T81.89XD - Other complications of procedures, not elsewhere classified, subsequent encounter Code(s): T81.89XA - Other complications of procedures, not elsewhere classified, initial encounter (6) Skin ulcer of abdominal wall with fat layer exposed Status: Chronic Current Visit: Yes Code(s): L98.492 - Non-pressure chronic ulcer of skin of other sites with fat layer exposed Comment: left abdominal fold History of Present Illness Date of Service: 10/31/18 Chief Complaint: Nonhealing wound status post surgical excision of necrotizing fasciitis left groin History of Wound: 46-year-old white male who presents to the wound healing center today with complaint of left groin ulceration status post surgical excision of necrotizing fasciitis. He is a past medical history which is si gnificant for that of type 2 diabetes mellitus, gout, diabetic neuropathy, schizophrenia, bilateral lymphedema, and schizophrenia. The patient states that what initially started as a pimple in his left groin progressed to necrotizing fasciitis and he had to have this surgically debrided in April 2017. He was admitted to [facility] for 2 weeks and then [facility] for 6 weeks afterwards. He states that the groin ulcer which extends to his left lower abdomen has been slowly improving and he has been doing daily Aquacel AG dressings with an ABD for the drainage. He does state that he has had 3 wound vacs in the past which were unable to be utilized due to the location of his wound. He denies any foul-smelling discharge or systemic signs of infection at this time. He is seen today as a courtesy visit for Gianni Neil CNP. He is tolerating dressings and denies any increase in drainage. He has been also using sweat beater to his groin area to prevent moisture. The patient otherwise denies any fever, chills, nausea, vomiting, shortness of breath, chest pain or pressure, palpitations, orthopnea, syncope or presyncopal episodes. Past Medical History Past Medical History: Chronic Problems History of necrotising fasciitis (Chronic) Type 2 diabetes mellitus (Chronic) Diabetic neuropathy (Chronic) Morbid obesity (Chronic) Non-healing surgical wound of left groin (Chronic) Non-healing surgical wound (Chronic) Skin ulcer of abdominal wall with fat layer exposed (Chronic) left abdominal fold Surgical History: - - April 2017 surgical excision necrotizing fasciitis left groin Allergies/Adverse Reactions: Allergies No Known Allergies Allergy (Verified 08/08/17 13:50) Home Medications: Ambulatory Orders Medication Instructions Recorded Gabapentin [Neurontin] 100 mg PO TIDCM 08/08/17 Insulin Glargine,Hum.rec.anlog 36 unit SQ QHS 08/08/17 [Lantus] Magnesium Oxide [Mag-Ox 400] 400 mg PO BID 08/08/17 Smoking Status: Never smoker Tobacco Use: Non-smoker Alcohol: None Drugs: None Review of Systems Constitutional: Denies: Chills, Fever, Weight Change Eyes: Denies: Pain, Vision Change HEENT: Denies: Difficulty Hearing, Difficulty Swallowing, Sinus Congestion Cardiovascular: Denies: Chest Pain, Palpitations Respiratory: Denies: Cough, Shortness of Breath Gastrointestinal: Denies: Diarrhea, Nausea, Vomiting Genitourinary: Denies: Dysuria, Hematuria Skin: Reports: Wounds Endocrine: Denies: Heat/ Cold Intolerance, Polydipsia, Polyuria Hematologic/ Lymphatic: Denies: Easy Bruising, Easy Bleeding - Physical Exam Vital Signs Temp Pulse Resp BP 97.8 F 90 18 155/78 H 10/31/18 11:35 10/31/18 11:35 10/31/18 11:35 10/31/18 11:35 General: Alert, Oriented x3, Cooperative, No apparent distress HEENT: Atraumatic, Normocephalic Oral: Moist Mucosa Neck: Supple, No JVD, Negative Carotid Bruits Lungs: Clear to auscultation Cardiovascular: Regular rate Abdomen: Obese Skin: Ulcer/ Wound Wound Measurements and Assessment WC - Nurse 1 - General Ulcer Measurement Start: 10/31/18 11:35 Freq: Status: Active Protocol: Activity Type Activity Date Activity User E-Sign Co-Sign Detail Recorded Client Recorded Date Recorded By Document 10/31/18 11:35 DL [id number] 10/31/18 11:44 DL 10/31/18 11:35 Wound Center Nurse 1 [Ulcer Assessment] #2 Left Abdominal Fold -Current Size (cm) - Length 0.3 -Current Size (cm) - Width 1.3 -Current Size (cm) - Depth 0.1 -Total Square Cm 0.39 -Photo Taken No -Exudate Amt Small -Exudate Type Serosanguineous -Wound Margin Distinct, Outline Attached -Granulation Amt Small (1-33%) -Granulation Quality [place] -Necrosis Amt Small (1-33%) -Necrotic Tissue Type Adherent Slough -Structure Exposed N/A -Texture (Inessa-wound Skin Appearance) Scarring -Moisture (Inessa-wound Skin Appearance No Abnormality ) -Color (Inessa-wound Skin Appearance) No Abnormality -Temperature (Inessa-wound Skin No Abnormality Appearance) (Pt Warm) -Tenderness on Palpation (Inessa-wound No Skin Appearance) -Ulcer Cleansing Wound Cleanser -Foul Odor after Cleansing No -Anesthetic Used 5% Lidocaine Gel #1- LEFT GROIN- POST OP -Current Size (cm) - Length 1.7 -Current Size (cm) - Width 12.8 -Current Size (cm) - Depth 0.1 -Total Square Cm 21.76 -Tunneling No -Exudate Amt Small -Exudate Type Serosanguineous -Wound Margin Distinct, Outline Attached -Granulation Amt Large (67-100%) -Granulation Quality [place] -Necrosis Amt Small (1-33%) -Necrotic Tissue Type Adherent Slough -Structure Exposed N/A -Texture (Inessa-wound Skin Appearance) Scarring -Moisture (Inessa-wound Skin Appearance Maceration ) -Color (Inessa-wound Skin Appearance) No Abnormality -Temperature (Inessa-wound Skin No Abnormality Appearance) (Pt Warm) -Tenderness on Palpation (Inessa-wound No Skin Appearance) -Ulcer Cleansing Wound Cleanser -Foul Odor after Cleansing No -Anesthetic Used 5% Lidocaine Gel WC - Nurse 2 - General Ulcer CM Notes Start: 10/31/18 11:35 Freq: Status: Active Protocol: Activity Type Activity Date Activity User E-Sign Co-Sign Detail Recorded Client Recorded Date Recorded By Document 10/31/18 12:07 DV [id number] 10/31/18 12:10 DV 10/31/18 12:07 Wound Center Nurse 2 [Procedure/Treatment] #2 Left Abdominal Fold -Time 12:07 -Correct Patient Yes -Correct Side, Site, Position Yes -Correct Procedure Yes -Procedure Performed Yes -Type of Procedure Debridement -Clinical Debridement Subcutaneous -Post Debridement Size (cm) - Length 0.5 -Post Debridement Size (cm) - Width 3.2 -Post Debridement Size (cm) - Depth 0.2 -Total Square Cm 1.60 -Wound/Ulcer Outcome Not Healed -Ulcer Cleansing Rinsed/ Irrigated with Saline -Foul Odor after Cleansing No -Bleeding Controlled with Pressure -Offloading No -Treatment Response Procedure Tolerated Well #1- LEFT GROIN- POST OP -Time 12:08 -Correct Patient Yes -Correct Side, Site, Position Yes -Correct Procedure Yes -Procedure Performed Yes -Type of Procedure Debridement -Clinical Debridement Subcutaneous -Post Debridement Size (cm) - Length 2.5 -Post Debridement Size (cm) - Width 13.4 -Post Debridement Size (cm) - Depth 0.1 -Total Square Cm 33.50 -Wound/Ulcer Outcome Not Healed -Ulcer Cleansing Rinsed/ Irrigated with Saline -Foul Odor after Cleansing No -Bioengineered Tissue No -Bleeding Controlled with Pressure -Offloading No -Treatment Response Procedure Tolerated Well [See Physician Procedure note for Specifics] Pain Scale: 0-10 Numeric [Pain] -Is Patient Pain Free? Yes Psych/Mental Status: Normal Affect, Appropriate Debridement Note Post-Debridement Measurements/Treatment WC - Nurse 2 - General Ulcer CM Notes Start: 10/31/18 11:35 Freq: Status: Active Protocol: Activity Type Activity Date Activity User E-Sign Co-Sign Detail Recorded Client Recorded Date Recorded By Document 10/31/18 12:07 DV [id number] 10/31/18 12:10 DV 10/31/18 12:07 Wound Center Nurse 2 #2 Left Abdominal Fold -Time 12:07 -Correct Patient Yes -Correct Side, Site, Position Yes -Correct Procedure Yes -Procedure Performed Yes -Type of Procedure Debridement -Clinical Debridement Subcutaneous -Post Debridement Size (cm) - Length 0.5 -Post Debridement Size (cm) - Width 3.2 -Post Debridement Size (cm) - Depth 0.2 -Total Square Cm 1.60 -Wound/Ulcer Outcome Not Healed -Ulcer Cleansing Rinsed/ Irrigated with Saline -Foul Odor after Cleansing No -Bleeding Controlled with Pressure -Offloading No -Treatment Response Procedure Tolerated Well #1- LEFT GROIN- POST OP -Time 12:08 -Correct Patient Yes -Correct Side, Site, Position Yes -Correct Procedure Yes -Procedure Performed Yes -Type of Procedure Debridement -Clinical Debridement Subcutaneous -Post Debridement Size (cm) - Length 2.5 -Post Debridement Size (cm) - Width 13.4 -Post Debridement Size (cm) - Depth 0.1 -Total Square Cm 33.50 -Wound/Ulcer Outcome Not Healed -Ulcer Cleansing Rinsed/ Irrigated with Saline -Foul Odor after Cleansing No -Bioengineered Tissue No -Bleeding Controlled with Pressure -Offloading No -Treatment Response Procedure Tolerated Well Pain Scale: 0-10 Numeric Is Patient Pain Free? Yes Wound debrided: left abdominal fold Laterality: Left Type of Debridement: Excisional debridement Anesthesia Used: 4% Lidocaine Solution, 5% Lidocaine Gel Depth: Down to and including healthy tissue, in the subcutaneous layer Percentage of wound debrided: 100 Instrument Used: 5mm curette Tissue Removed: yellow slough, devitalized tissue Severity: Fat Layer Exposed Amount of bleeding with debridement: Mild Bleeding Controlled with: Compression and gauze Patient tolerated procedure well - Additional Wound Wound debrided: left groin post-op Laterality: Left Type of Debridement: Excisional debridement Anesthesia Used: 4% Lidocaine Solution, 5% Lidocaine Gel Depth: Down to and including healthy tissue, in the subcutaneous layer Percentage of wound debrided: 100 Instrument Used: 5mm curette Tissue Removed: yellow slough, devitalized tissue Severity: Fat Layer Exposed Amount of bleeding with debridement: Mild Bleeding Controlled with: Compression and gauze Patient tolerated procedure: Patient tolerated procedure well Assessment/Plan Active Problems History of necrotising fasciitis (Chronic) Type 2 diabetes mellitus (Chronic) Morbid obesity (Chronic) Non-healing surgical wound of left groin (Chronic) Non-healing surgical wound (Chronic) Skin ulcer of abdominal wall with fat layer exposed (Chronic) left abdominal fold Assessment: Nonhealing postsurgical wound left groin status post surgical excision of necrotizing fasciitis. Bilateral lower extremity edema. Morbid obesity. Type 2 diabetes mellitus Plan: The patient was seen and examined at the wound center today and was updated on the plan of care. A subcutaneous debridement was performed today. The patient tolerated the procedure well. The patients wound care will consist of: hydrofera blue/Aquacell extra change daily and as needed cover with gauze. Did discuss proper drying mechanisms after showering to prevent excess moisture. Baseline bloodwork reviewed which demonstrated a slightly low pre-albumin and patient was advised to use Glucerna or high-protein with meals. Repeat lab work WNL. Prealbumin WNL now. Previous records were requested for continuity of care. Patient educated on the importance of diet on wound healing and instructed to increase protein and vitamin C intake. Patient verbalized understanding. Plastic surgery consultation - no surgery indicated. Did discuss with patient the importance of blood sugar control in wound healing, recent A1C in 02/2018 was 6.1. Patient to follow-up in 1 week or sooner if needed. Patient is on a complex wound plan. This note was generated with [employer] dictation software. It may contain incorrect words, spelling, and punctuation that were not noted in checking the note before signing.
[2018-11-06 15:42] VITALS: BP 162/80; PULSE 73; RESP 18; TEMP 37
--- NOTE | 2018-11-06 20:56 | PN.PCM_ITS ---
(1) Skin ulcer of abdominal wall with fat layer exposed Status: Chronic Code(s): L98.492 - Non-pressure chronic ulcer of skin of other sites with fat layer exposed Comment: left abdominal fold (2) Non-healing surgical wound of left groin Status: Chronic Qualifiers: Encounter type: subsequent encounter Qualified Code(s): T81.89XD - Other complications of procedures, not elsewhere classified, subsequent encounter Code(s): T81.89XA - Other complications of procedures, not elsewhere classified, initial encounter (3) Lymphedema of both lower extremities Status: Acute Code(s): I89.0 - Lymphedema, not elsewhere classified (4) History of necrotising fasciitis Status: Chronic Code(s): Z87.39 - Personal history of other diseases of the musculoskeletal system and connective tissue (5) Morbid obesity Status: Chronic Code(s): E66.01 - Morbid (severe) obesity due to excess calories (6) Type 2 diabetes mellitus Status: Chronic Qualifiers: 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 home insulin use status Diabetes mellitus complication status: with skin complications Diabetes mellitus complication detail: with other skin ulcer Qualified Code(s): E11.622 - Type 2 diabetes mellitus with other skin ulcer; L98.499 - Non-pressure chronic ulcer of skin of other sites with unspecified severity Code(s): E11.9 - Type 2 diabetes mellitus without complications Type of Wound Date of Service: 11/06/18 Chief Complaint: Nonhealing wound status post surgical excision of necrotizing fasciitis left groin History of Wound: 46-year-old white male who presents to the wound healing center today with complaint of left groin ulceration status post surgical excision of necrotizing fasciitis. He is a past medical history which is significant for that of type 2 diabetes mellitus, gout, diabetic neuropathy, schizophrenia, bilateral lymphedema, and schizophrenia. The patient states that what initially started as a pimple in his left groin progressed to necrotizing fasciitis and he had to have this surgically debrided in April 2017. He was admitted to [facility] for 2 weeks and then [facility] for 6 weeks afterwards. He states that the groin ulcer which extends to his left lower abdomen has been slowly improving and he has been doing daily Aquacel AG dressings with an ABD for the drainage. He does state that he has had 3 wound vacs in the past which were unable to be utilized due to the location of his wound. He denies any foul-smelling discharge or systemic signs of infection at this time. He is seen today as a courtesy visit for Gianni Neil CNP. He is tolerating dressings and denies any increase in drainage. He has been also using sweat beater to his groin area to prevent moisture. The patient otherwise denies any fever, chills, nausea, vomiting, shortness of breath, chest pain or pressure, palpitations, orthopnea, syncope or presyncopal episodes. Progress of Wound: Left groin wound is stable. The more lateral wound continues to be small and is almost healed. No maceration seen. No signs of infection at this time. - Physical Exam Vital Signs Temp Pulse Resp BP 98.6 F 73 18 162/80 H 11/06/18 15:42 11/06/18 15:42 11/06/18 15:42 11/06/18 15:42 General: Alert, Oriented x3, Cooperative, No apparent distress HEENT: Atraumatic Oral: Moist Mucosa Lungs: Clear to auscultation Cardiovascular: Regular rate Abdomen: Obese Extremities: No clubbing, No cyanosis, No edema Skin: Ulcer/ Wound - Ulceration to left groin and left abdominal fold with adherent slough to wound bed, otherwise no signs of infection at this time. Neurological: Neuro grossly intact Psych/Mental Status: Normal Affect, Appropriate, Alert and oriented to time, place, person, mood and affect Debridement Note Post-Debridement Measurements/Treatment WC - Nurse 2 - General Ulcer CM Notes Start: 10/31/18 11:35 Freq: Status: Active Protocol: Activity Type Activity Date Activity User E-Sign Co-Sign Detail Recorded Client Recorded Date Recorded By Document 10/31/18 12:07 DV [id number] 10/31/18 12:10 DV Document 11/06/18 16:02 AN [id number] 11/06/18 16:07 AN 10/31/18 11/06/18 12:07 16:02 Wound Center Nurse 2 #2 Left Abdominal Fold -Time 12:07 16:05 -Correct Patient Yes Yes -Correct Side, Site, Position Yes Yes -Correct Procedure Yes Yes -Procedure Performed Yes Yes -Type of Procedure Debridement Debridement -Clinical Debridement Subcutaneous Subcutaneous -Post Debridement Size (cm) - Length 0.5 0.5 -Post Debridement Size (cm) - Width 3.2 1.2 -Post Debridement Size (cm) - Depth 0.2 0.1 -Total Square Cm 1.60 0.60 -Wound/Ulcer Outcome Not Healed Not Healed -Ulcer Cleansing Rinsed/ Rinsed/ Irrigated with Irrigated with Saline Saline -Foul Odor after Cleansing No No -Bioengineered Tissue No -Bleeding Controlled with Pressure Pressure -Offloading No -Treatment Response Procedure Procedure Tolerated Well Tolerated Well #1- LEFT GROIN- POST OP -Time 12:08 16:05 -Correct Patient Yes Yes -Correct Side, Site, Position Yes Yes -Correct Procedure Yes Yes -Procedure Performed Yes Yes -Type of Procedure Debridement Debridement -Clinical Debridement Subcutaneous Subcutaneous -Post Debridement Size (cm) - Length 2.5 2.3 -Post Debridement Size (cm) - Width 13.4 12.5 -Post Debridement Size (cm) - Depth 0.1 0.1 -Total Square Cm 33.50 28.75 -Wound/Ulcer Outcome Not Healed Not Healed -Ulcer Cleansing Rinsed/ Rinsed/ Irrigated with Irrigated with Saline Saline -Foul Odor after Cleansing No No -Bioengineered Tissue No No -Bleeding Controlled with Pressure Pressure -Offloading No -Treatment Response Procedure Procedure Tolerated Well Tolerated Well Pain Scale: 0-10 Numeric Is Patient Pain Free? Yes Yes Wound debrided: Left abdominal fold and left groin ulcers Laterality: Left Type of Debridement: Excisional debridement Anesthesia Used: 5% Lidocaine Gel Depth: in the subcutaneous layer Percentage of wound debrided: 100 Instrument Used: 5mm curette Tissue Removed: Slough and devitalized tissue Severity: Fat Layer Exposed Amount of bleeding with debridement: Mild Bleeding Controlled with: Pressure Patient tolerated procedure well Assessment/Plan Assessment: Nonhealing postsurgical wound left groin status post surgical excision of necrotizing fasciitis. Bilateral lower extremity edema. Morbid obesity. Type 2 diabetes mellitus Plan: The patient was seen and examined at the wound center today and was updated on the plan of care. A subcutaneous debridement was performed today. The patient tolerated the procedure well. The patients wound care will consist of: hydrofera blue/Aquacell extra change daily and as needed cover with gauze. Did discuss proper drying mechanisms after showering to prevent excess moisture. Baseline bloodwork reviewed which demonstrated a slightly low pre-albumin and patient was advised to use Glucerna or high-protein with meals. Repeat lab work WNL. Prealbumin WNL now. Previous records were requested for continuity of care. Patient educated on the importance of diet on wound healing and instructed to increase protein and vitamin C intake. Patient verbalized understanding. Plastic surgery consultation - no surgery indicated. Did discuss with patient the importance of blood sugar control in wound healing, recent A1C in 02/2018 was 6.1. Patient to follow-up in 1 week or sooner if needed. Patient is on a complex wound plan. This note was generated with [employer] dictation software. It may contain incorrect words, spelling, and punctuation that were not noted in checking the note before signing. Code Visit 111xxx-113xx: 96208 Jessica subq tissue 20 sq cm/< Add On Codes: [id number] Jessica subq tissue add-on
[2018-11-13 15:35] VITALS: BP 162/85; PULSE 73; RESP 18; TEMP 36.1
--- NOTE | 2018-11-13 19:38 | PN.PCM_ITS ---
(1) Skin ulcer of abdominal wall with fat layer exposed Status: Chronic Code(s): L98.492 - Non-pressure chronic ulcer of skin of other sites with fat layer exposed Comment: left abdominal fold (2) Non-healing surgical wound of left groin Status: Chronic Qualifiers: Encounter type: subsequent encounter Qualified Code(s): T81.89XD - Other complications of procedures, not elsewhere classified, subsequent encounter Code(s): T81.89XA - Other complications of procedures, not elsewhere classified, initial encounter (3) Lymphedema of both lower extremities Status: Acute Code(s): I89.0 - Lymphedema, not elsewhere classified (4) History of necrotising fasciitis Status: Chronic Code(s): Z87.39 - Personal history of other diseases of the musculoskeletal system and connective tissue (5) Morbid obesity Status: Chronic Code(s): E66.01 - Morbid (severe) obesity due to excess calories (6) Type 2 diabetes mellitus Status: Chronic 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 [facility] insulin use status Diabetes mellitus complication status: with skin complications Diabetes mellitus complication detail: with other skin ulcer Qualified Code(s): E11.622 - Type 2 diabetes mellitus with other skin ulcer; L98.499 - Non-pressure chronic ulcer of skin of other sites with unspecified severity Code(s): E11.9 - Type 2 diabetes mellitus without complications Type of Wound Date of Service: 11/13/18 Chief Complaint: Nonhealing wound status post surgical excision of necrotizing fasciitis left groin History of Wound: 46-year-old white male who presents to the wound healing center today with complaint of left groin ulceration status post surgical excision of necrotizing fasciitis. He is a past medical history which is significant for that of type 2 diabetes mellitus, gout, diabetic neuropathy, schizophrenia, bilateral lymphedema, and schizophrenia. The patient states that what initially started as a pimple in his left groin progressed to necrotizing fasciitis and he had to have this surgically debrided in April 2017. He was admitted to [facility] for 2 weeks and then [facility] for 6 weeks afterwards. He states that the groin ulcer which extends to his left lower abdomen has been slowly improving and he has been doing daily Aquacel AG dressings with an ABD for the drainage. He does state that he has had 3 wound vacs in the past which were unable to be utilized due to the location of his wound. He denies any foul-smelling discharge or systemic signs of infection at this time. He is seen today as a courtesy visit for Gianni Neil CNP. He is tolerating dressings and denies any increase in drainage. He has been also using sweat beater to his groin area to prevent moisture. The patient otherwise denies any fever, chills, nausea, vomiting, shortness of breath, chest pain or pressure, palpitations, orthopnea, syncope or presyncopal episodes. Progress of Wound: Left groin wound is stable. The more lateral wound continues to be small and is almost healed. No maceration seen. No signs of infection at this time. - Physical Exam Vital Signs Temp Pulse Resp BP 97 F L 73 18 162/85 H 11/13/18 15:35 11/13/18 15:35 11/13/18 15:35 11/13/18 15:35 General: Alert, Oriented x3, Cooperative, No apparent distress HEENT: Atraumatic Oral: Moist Mucosa Lungs: Clear to auscultation Cardiovascular: Regular rate Abdomen: Soft, Non Tender, Obese Extremities: No clubbing, No cyanosis Skin: Ulcer/ Wound - The left groin and left abdominal fold with adherent slough, no signs of secondary skin infection at this time. Neurological: Neuro grossly intact Psych/Mental Status: Normal Affect, Appropriate, Alert and oriented to time, place, person, mood and affect Debridement Note Post-Debridement Measurements/Treatment WC - Nurse 2 - General Ulcer CM Notes Start: 10/31/18 11:35 Freq: Status: Active Protocol: Activity Type Activity Date Activity User E-Sign Co-Sign Detail Recorded Client Recorded Date Recorded By Document 10/31/18 12:07 DV [id number] 10/31/18 12:10 DV Document 11/06/18 16:02 AN [id number] 11/06/18 16:07 AN Document 11/13/18 16:16 AN [id number] 11/13/18 16:25 AN 10/31/18 11/06/18 11/13/18 12:07 16:02 16:16 Wound Center Nurse 2 #2 Left Abdominal Fold -Time 12:07 16:05 16:17 -Correct Patient Yes Yes Yes -Correct Side, Site, Position Yes Yes Yes -Correct Procedure Yes Yes Yes -Procedure Performed Yes Yes Yes -Type of Procedure Debridement Debridement Debridement -Clinical Debridement Subcutaneous Subcutaneous Subcutaneous -Post Debridement Size (cm) - Length 0.5 0.5 0.4 -Post Debridement Size (cm) - Width 3.2 1.2 1.3 -Post Debridement Size (cm) - Depth 0.2 0.1 0.1 -Total Square Cm 1.60 0.60 0.52 -Wound/Ulcer Outcome Not Healed Not Healed Not Healed -Ulcer Cleansing Rinsed/ Rinsed/ Rinsed/ Irrigated with Irrigated with Irrigated with Saline Saline Saline -Foul Odor after Cleansing No No No -Bioengineered Tissue No No -Bleeding Controlled with Pressure Pressure Pressure -Offloading No No -Treatment Response Procedure Procedure Procedure Tolerated Well Tolerated Well Tolerated Well #1- LEFT GROIN- POST OP -Time 12:08 16:05 16:17 -Correct Patient Yes Yes Yes -Correct Side, Site, Position Yes Yes Yes -Correct Procedure Yes Yes Yes -Procedure Performed Yes Yes Yes -Type of Procedure Debridement Debridement Debridement -Clinical Debridement Subcutaneous Subcutaneous Subcutaneous -Post Debridement Size (cm) - Length 2.5 2.3 2.1 -Post Debridement Size (cm) - Width 13.4 12.5 12 -Post Debridement Size (cm) - Depth 0.1 0.1 0.1 -Total Square Cm 33.50 28.75 25.2 -Wound/Ulcer Outcome Not Healed Not Healed Not Healed -Ulcer Cleansing Rinsed/ Rinsed/ Rinsed/ Irrigated with Irrigated with Irrigated with Saline Saline Saline -Foul Odor after Cleansing No No No -Bioengineered Tissue No No No -Bleeding Controlled with Pressure Pressure Pressure -Offloading No No -Treatment Response Procedure Procedure Procedure Tolerated Well Tolerated Well Tolerated Well Pain Scale: 0-10 Numeric Is Patient Pain Free? Yes Yes Yes Wound debrided: Left groin and left abdominal fold ulcer Laterality: Left Type of Debridement: Excisional debridement Anesthesia Used: 5% Lidocaine Gel Depth: in the subcutaneous layer Percentage of wound debrided: 100 Instrument Used: 5mm curette Tissue Removed: Slough and devitalized tissue Severity: Fat Layer Exposed Amount of bleeding with debridement: Mild Bleeding Controlled with: Pressure Patient tolerated procedure well Assessment/Plan Assessment: Nonhealing postsurgical wound left groin status post surgical excision of necrotizing fasciitis. Bilateral lower extremity edema. Morbid obesity. Type 2 diabetes mellitus Plan: The patient was seen and examined at the wound center today and was updated on the plan of care. A subcutaneous debridement was performed today. The patient tolerated the procedure well. The patients wound care will consist of: hydrofera blue/Aquacell extra change daily and as needed cover with gauze. Did discuss proper drying mechanisms after showering to prevent excess moisture. Baseline bloodwork reviewed which demonstrated a slightly low pre-albumin and patient was advised to use Glucerna or high-protein with meals. Repeat lab work WNL. Prealbumin WNL now. Previous records were requested for continuity of care. Patient educated on the importance of diet on wound healing and instructed to increase protein and vitamin C intake. Patient verbalized understanding. Plastic surgery consultation - no surgery indicated. Did discuss with patient the importance of blood sugar control in wound healing, recent A1C in 02/2018 was 6.1. Patient to follow-up in 1 week or sooner if needed. Patient is on a complex wound plan. This note was generated with [employer] dictation software. It may contain incorrect words, spelling, and punctuation that were not noted in checking the note before signing. Code Visit 111xxx-113xx: [id number] Jessica subq tissue 20 sq cm/<
== END 2018-11-19 23:59 ==
LOC: WC 15:30
PROVIDERS: Family Provider Family Medicine; PCP Family Medicine; Visit Provider Nurse Practitioner Family
DX: E11.622 Type 2 diabetes mellitus with other skin ulcer (principal); I89.0 Lymphedema, not elsewhere classified; E66.01 Morbid (severe) obesity due to excess calories; E11.40 Type 2 diabetes mellitus with diabetic neuropathy, unspecified; L98.492 Non-pressure chronic ulcer of skin of other sites with fat layer exposed; R60.0 Localized edema
CPT/HCPCS: 11042; 11045

== ENCOUNTER 2018-12-18 15:30 | Outpatient (RCR) | payer MEDICARE, MEDICAID, SELFPAY ==
[2018-11-20 00:35] VITALS: BP 162/85; PULSE 73; RESP 18; TEMP 36.1
[2018-11-20 16:20] VITALS: BP 121/79; PULSE 87; RESP 20; TEMP 36.3
--- NOTE | 2018-11-20 16:31 | PN.PCM_ITS ---
(1) Lymphedema of both lower extremities Status: Acute Current Visit: Yes Code(s): I89.0 - Lymphedema, not elsewhere classified (2) History of necrotising fasciitis Status: Chronic Current Visit: Yes Code(s): Z87.39 - Personal history of other diseases of the musculoskeletal system and connective tissue (3) Morbid obesity Status: Chronic Current Visit: No Code(s): E66.01 - Morbid (severe) obesity due to excess calories (4) Non-healing surgical wound Status: Chronic Current Visit: Yes Qualifiers: Code(s): T81.89XA - Other complications of procedures, not elsewhere classified, initial encounter (5) Non-healing surgical wound of left groin Status: Chronic Current Visit: Yes Qualifiers: Code(s): T81.89XA - Other complications of procedures, not elsewhere classified, initial encounter (6) Skin ulcer of abdominal wall with fat layer exposed Status: Chronic Current Visit: Yes Code(s): L98.492 - Non-pressure chronic ulcer of skin of other sites with fat layer exposed Comment: left abdominal fold (7) Type 2 diabetes mellitus Status: Chronic Current Visit: Yes Qualifiers: Code(s): E11.9 - Type 2 diabetes mellitus without complications Type of Wound Date of Service: 11/20/18 Chief Complaint: Nonhealing wound status post surgical excision of necrotizing fasciitis left groin History of Wound: 46-year-old white male who presents to the wound healing center today with complaint of left groin ulceration status post surgical excision of necrotizing fasciitis. He is a past medical history which is significant for that of type 2 diabetes mellitus, gout, diabetic neuropathy, schizophrenia, bilateral lymphedema, and schizophrenia. The patient states that what initially started as a pimple in his left groin progressed to necrotizing fasciitis and he had to have this surgically debrided in April 2017. He was admitted to [facility] for 2 weeks and then [facility] for 6 weeks afterwards. He states that the groin ulcer which extends to his left lower abdomen has been slowly improving and he has been doing daily Aquacel AG dressings with an ABD for the drainage. He does state that he has had 3 wound vacs in the past which were unable to be utilized due to the location of his wound. He denies any foul-smelling discharge or systemic signs of infection at this time. He is seen today as a courtesy visit for Gianni Neil CNP. He is tolerating dressings and denies any increase in drainage. He has been also using sweat beater to his groin area to prevent moisture. The patient otherwise denies any fever, chills, nausea, vomiting, shortness of breath, chest pain or pressure, palpitations, orthopnea, syncope or presyncopal episodes. Progress of Wound: Left groin wound is improved and left abdominal fold ulcer has healed. No maceration seen. No signs of infection at this time. - Physical Exam Vital Signs Temp Pulse Resp BP 97.4 F L 87 20 H 121/79 H 11/20/18 16:20 11/20/18 16:20 11/20/18 16:20 11/20/18 16:20 General: Alert, Oriented x3, Cooperative, No apparent distress HEENT: Atraumatic Oral: Moist Mucosa Lungs: Clear to auscultation Cardiovascular: Regular rate Abdomen: Soft, Non Tender, Obese Extremities: No clubbing, No cyanosis Skin: Ulcer/ Wound - Ulceration to left groin with adherent slough to wound bed, no signs of infection at this time Wound Measurements and Assessment WC - Nurse 1 - General Ulcer Measurement Start: 11/20/18 16:20 Freq: Status: Active Protocol: Activity Type Activity Date Activity User E-Sign Co-Sign Detail Recorded Client Recorded Date Recorded By Document 11/20/18 16:20 DL [id number] 11/20/18 16:28 DL 11/20/18 16:20 Wound Center Nurse 1 [Ulcer Assessment] #2 Left Abdominal Fold -Current Size (cm) - Length 0 -Current Size (cm) - Width 0 -Current Size (cm) - Depth 0 -Total Square Cm 0 -Photo Taken Yes -Granulation Amt Large (67-100%) -Granulation Quality Lynndyl -Necrosis Amt None Present (0 %) -Structure Exposed N/A -Texture (Inessa-wound Skin Appearance) Scarring -Moisture (Inessa-wound Skin Appearance No Abnormality ) -Color (Inessa-wound Skin Appearance) No Abnormality -Temperature (Inessa-wound Skin No Abnormality Appearance) (Pt Warm) -Tenderness on Palpation (Inessa-wound No Skin Appearance) -Ulcer Cleansing Wound Cleanser -Foul Odor after Cleansing No #1- LEFT GROIN- POST OP -Current Size (cm) - Length 0.9 -Current Size (cm) - Width 13.6 -Current Size (cm) - Depth 0.3 -Total Square Cm 12.24 -Photo Taken No -Exudate Amt Small -Exudate Type Serosanguineous -Wound Margin Distinct, Outline Attached -Granulation Amt Large (67-100%) -Granulation Quality Red -Necrosis Amt Small (1-33%) -Necrotic Tissue Type Adherent Slough -Structure Exposed N/A -Texture (Inessa-wound Skin Appearance) Scarring -Moisture (Inessa-wound Skin Appearance Maceration ) -Color (Inessa-wound Skin Appearance) No Abnormality -Temperature (Inessa-wound Skin No Abnormality Appearance) (Pt Warm) -Tenderness on Palpation (Inessa-wound No Skin Appearance) -Ulcer Cleansing Wound Cleanser -Foul Odor after Cleansing No -Anesthetic Used 4% Lidocaine Solution - Nurse 2 - General Ulcer CM Notes Start: 11/20/18 16:20 Freq: Status: Active Protocol: Activity Type Activity Date Activity User E-Sign Co-Sign Detail Recorded Client Recorded Date Recorded By Document 11/20/18 16:32 AN [id number] 11/20/18 16:36 AN 11/20/18 16:32 Wound Center Nurse 2 [Procedure/Treatment] -Time 16:33 -Correct Patient Yes -Correct Side, Site, Position Yes -Correct Procedure Yes -Procedure Performed Yes -Type of Procedure Debridement -Clinical Debridement Subcutaneous -Post Debridement Size (cm) - Length 2 -Post Debridement Size (cm) - Width 11.5 -Post Debridement Size (cm) - Depth 0.1 -Total Square Cm 23.0 -Wound/Ulcer Outcome Not Healed -Ulcer Cleansing Rinsed/ Irrigated with Saline -Foul Odor after Cleansing No -Bioengineered Tissue No -Bleeding Controlled with Pressure -Offloading No -Treatment Response Procedure Tolerated Well [See Physician Procedure note for Specifics] Neurological: Neuro grossly intact Psych/Mental Status: Normal Affect, Appropriate, Alert and oriented to time, place, person, mood and affect Debridement Note Post-Debridement Measurements/Treatment - Nurse 2 - General Ulcer CM Notes Start: 11/20/18 16:20 Freq: Status: Active Protocol: Activity Type Activity Date Activity User E-Sign Co-Sign Detail Recorded Client Recorded Date Recorded By Document 11/20/18 16:32 AN [id number] 11/20/18 16:36 AN 11/20/18 16:32 Wound Center Nurse 2 #1- LEFT GROIN- POST OP -Time 16:33 -Correct Patient Yes -Correct Side, Site, Position Yes -Correct Procedure Yes -Procedure Performed Yes -Type of Procedure Debridement -Clinical Debridement Subcutaneous -Post Debridement Size (cm) - Length 2 -Post Debridement Size (cm) - Width 11.5 -Post Debridement Size (cm) - Depth 0.1 -Total Square Cm 23.0 -Wound/Ulcer Outcome Not Healed -Ulcer Cleansing Rinsed/ Irrigated with Saline -Foul Odor after Cleansing No -Bioengineered Tissue No -Bleeding Controlled with Pressure -Offloading No -Treatment Response Procedure Tolerated Well Wound debrided: Ulcer to left groin Laterality: Left Type of Debridement: Excisional debridement Anesthesia Used: 5% Lidocaine Gel Depth: in the subcutaneous layer Percentage of wound debrided: 100 Instrument Used: 5mm curette Tissue Removed: Slough and devitalized tissue Severity: Fat Layer Exposed Amount of bleeding with debridement: Mild Bleeding Controlled with: Pressure Patient tolerated procedure well Assessment/Plan Active Problems History of necrotising fasciitis (Chronic) Lymphedema of both lower extremities (Acute) Type 2 diabetes mellitus (Chronic) Non-healing surgical wound of left groin (Chronic) Non-healing surgical wound (Chronic) Skin ulcer of abdominal wall with fat layer exposed (Chronic) left abdominal fold Assessment: Nonhealing postsurgical wound left groin status post surgical excision of necrotizing fasciitis. Bilateral lower extremity edema. Morbid obesity. Type 2 diabetes mellitus Plan: The patient was seen and examined at the wound center today and was updated on the plan of care. A subcutaneous debridement was performed today. The patient tolerated the procedure well. The patients wound care will consist of: hydrofera blue/Aquacell extra change daily and as needed cover with gauze. Did discuss proper drying mechanisms after showering to prevent excess moisture. Baseline bloodwork reviewed which demonstrated a slightly low pre-albumin and patient was advised to use Glucerna or high-protein with meals. Repeat lab work WNL. Prealbumin WNL now. Previous records were requested for continuity of care. Patient educated on the importance of diet on wound healing and instructed to increase protein and vitamin C intake. Patient verbalized understanding. Plastic surgery consultation - no surgery indicated. Did discuss with patient the importance of blood sugar control in wound healing, recent A1C in 02/2018 was 6.1. Patient to follow-up in 1 week or sooner if needed. Patient is on a complex wound plan. This note was generated with [employer] dictation software. It may contain incorrect words, spelling, and punctuation that were not noted in checking the note before signing. Code Visit 111xxx-113xx: [id number] Jessica subq tissue 20 sq cm/<
[2018-11-27 16:06] VITALS: BP 144/88; PULSE 83; RESP 18; TEMP 35.5
--- NOTE | 2018-11-27 21:03 | PCM.WC.PN ---
(1) Lymphedema of both lower extremities Status: Acute Code(s): I89.0 - Lymphedema, not elsewhere classified (2) History of necrotising fasciitis Status: Chronic Code(s): Z87.39 - Personal history of other diseases of the musculoskeletal system and connective tissue (3) Morbid obesity Status: Chronic Code(s): E66.01 - Morbid (severe) obesity due to excess calories (4) Non-healing surgical wound Status: Chronic Qualifiers: Code(s): T81.89XA - Other complications of procedures, not elsewhere classified, initial encounter (5) Non-healing surgical wound of left groin Status: Chronic Qualifiers: Code(s): T81.89XA - Other complications of procedures, not elsewhere classified, initial encounter (6) Skin ulcer of abdominal wall with fat layer exposed Status: Chronic Code(s): L98.492 - Non-pressure chronic ulcer of skin of other sites with fat layer exposed Comment: left abdominal fold (7) Type 2 diabetes mellitus Status: Chronic Qualifiers: Code(s): E11.9 - Type 2 diabetes mellitus without complications Type of Wound Date of Service: 11/30/18 Chief Complaint: Nonhealing wound status post surgical excision of necrotizing fasciitis left groin History of Wound: 46-year-old white male who presents to the wound healing center today with complaint of left groin ulceration status post surgical excision of necrotizing fasciitis. He is a past medical history which is significant for that of type 2 diabetes mellitus, gout, diabetic neuropathy, schizophrenia, bilateral lymphedema, and schizophrenia. The patient states that what initially started as a pimple in his left groin progressed to necrotizing fasciitis and he had to have this surgically debrided in April 2017. He was admitted to [facility] 2 weeks and then [facility] for 6 weeks afterwards. He states that the groin ulcer which extends to his left lower abdomen has been slowly improving and he has been doing daily Aquacel AG dressings with an ABD for the drainage. He does state that he has had 3 wound vacs in the past which were unable to be utilized due to the location of his wound. He denies any foul-smelling discharge or systemic signs of infection at this time. He is seen today as a courtesy visit for Gianni Neil CNP. He is tolerating dressings and denies any increase in drainage. He has been also using sweat beater to his groin area to prevent moisture. The patient otherwise denies any fever, chills, nausea, vomiting, shortness of breath, chest pain or pressure, palpitations, orthopnea, syncope or presyncopal episodes. Progress of Wound: Left groin wound is improved and left abdominal fold ulcer remains healed. No maceration seen. No signs of infection at this time. - Physical Exam Vital Signs Temp Pulse Resp BP 96 F L 83 18 144/88 H 11/27/18 16:06 11/27/18 16:06 11/27/18 16:06 11/27/18 16:06 General: Alert, Oriented x3, Cooperative HEENT: Atraumatic Oral: Moist Mucosa Neck: Supple Lungs: Clear to auscultation, Normal air movement Cardiovascular: Regular rate, Regular Rhythm Abdomen: Soft, Non Tender, Obese Extremities: No clubbing, No cyanosis, No edema Skin: Ulcer/ Wound - ulceration left groin with adhernat slough, no signs of infection at thist time Musculoskeletal: No Muscle Wasting Neurological: Neuro grossly intact Psych/Mental Status: Normal Affect, Appropriate, Alert and oriented to time, place, person, mood and affect Debridement Note Post-Debridement Measurements/Treatment WC - Nurse 2 - General Ulcer CM Notes Start: 11/20/18 16:20 Freq: Status: Active Protocol: Activity Type Activity Date Activity User E-Sign Co-Sign Detail Recorded Client Recorded Date Recorded By Document 11/20/18 16:32 AN [id number] 11/20/18 16:36 AN Document 11/27/18 18:45 AN [id number] 11/27/18 18:46 AN 11/20/18 11/27/18 16:32 18:45 Wound Center Nurse 2 #1- LEFT GROIN- POST OP -Time 16:33 15:30 -Correct Patient Yes Yes -Correct Side, Site, Position Yes Yes -Correct Procedure Yes Yes -Procedure Performed Yes Yes -Type of Procedure Debridement Debridement -Clinical Debridement Subcutaneous Subcutaneous -Post Debridement Size (cm) - Length 2 2.1 -Post Debridement Size (cm) - Width 11.5 10.8 -Post Debridement Size (cm) - Depth 0.1 0.1 -Total Square Cm 23.0 22.68 -Wound/Ulcer Outcome Not Healed Not Healed -Ulcer Cleansing Rinsed/ Rinsed/ Irrigated with Irrigated with Saline Saline -Foul Odor after Cleansing No No -Bioengineered Tissue No No -Bleeding Controlled with Pressure Pressure -Offloading No No -Treatment Response Procedure Procedure Tolerated Well Tolerated Well Pain Scale: 0-10 Numeric Is Patient Pain Free? Yes Wound debrided: left groin ulcer Laterality: Left Type of Debridement: Excisional debridement Anesthesia Used: 5% Lidocaine Gel Depth: in the subcutaneous layer Percentage of wound debrided: 100 Instrument Used: 5mm curette Tissue Removed: slough and devitalized tissue Severity: Fat Layer Exposed Amount of bleeding with debridement: Mild Bleeding Controlled with: Pressure Patient tolerated procedure well Assessment/Plan Assessment: Nonhealing postsurgical wound left groin status post surgical excision of necrotizing fasciitis. Bilateral lower extremity edema. Morbid obesity. Type 2 diabetes mellitus Plan: The patient was seen and examined at the wound center today and was updated on the plan of care. A subcutaneous debridement was performed today. The patient tolerated the procedure well. The patients wound care will consist of: hydrofera blue/Aquacell extra change daily and as needed cover with gauze. Did discuss proper drying mechanisms after showering to prevent excess moisture. Baseline bloodwork reviewed which demonstrated a slightly low pre-albumin and patient was advised to use Glucerna or high-protein with meals. Repeat lab work WNL. Prealbumin WNL now. Previous records were requested for continuity of care. Patient educated on the importance of diet on wound healing and instructed to increase protein and vitamin C intake. Patient verbalized understanding. Plastic surgery consultation - no surgery indicated. Did discuss with patient the importance of blood sugar control in wound healing, recent A1C in 02/2018 was 6.1. Patient to follow-up in 1 week or sooner if needed. Patient is on a complex wound plan. This note was generated with [employer] software. It may contain incorrect words, spelling, and punctuation that were not noted in checking the note before signing. Code Visit 111xxx-113xx: 33000 Jessica subq tissue 20 sq cm/< Add On Codes: [id number] Jessica subq tissue add-on
[2018-12-04 16:12] VITALS: BP 149/87; PULSE 90; RESP 18; TEMP 36.1
--- NOTE | 2018-12-04 20:00 | PCM.WC.PN ---
(1) Non-healing surgical wound Status: Chronic Current Visit: Yes Qualifiers: Code(s): T81.89XA - Other complications of procedures, not elsewhere classified, initial encounter (2) Lymphedema of both lower extremities Status: Acute Current Visit: Yes Code(s): I89.0 - Lymphedema, not elsewhere classified (3) History of necrotising fasciitis Status: Chronic Current Visit: Yes Code(s): Z87.39 - Personal history of other diseases of the musculoskeletal system and connective tissue (4) Morbid obesity Status: Chronic Current Visit: Yes Code(s): E66.01 - Morbid (severe) obesity due to excess calories (5) Non-healing surgical wound of left groin Status: Chronic Current Visit: Yes Qualifiers: Code(s): T81.89XA - Other complications of procedures, not elsewhere classified, initial encounter (6) Skin ulcer of abdominal wall with fat layer exposed Status: Chronic Current Visit: Yes Code(s): L98.492 - Non-pressure chronic ulcer of skin of other sites with fat layer exposed Comment: left abdominal fold (7) Type 2 diabetes mellitus Status: Chronic Current Visit: No Qualifiers: Code(s): E11.9 - Type 2 diabetes mellitus without complications Type of Wound Date of Service: 12/04/18 Chief Complaint: Nonhealing wound status post surgical excision of necrotizing fasciitis left groin History of Wound: 46-year-old white male who presents to the wound healing center today with complaint of left groin ulceration status post surgical excision of necrotizing fasciitis. He is a past medical history which is significant for that of type 2 diabetes mellitus, gout, diabetic neuropathy, schizophrenia, bilateral lymphedema, and schizophrenia. The patient states that what initially started as a pimple in his left groin progressed to necrotizing fasciitis and he had to have this surgically debrided in April 2017. He was admitted to [facility] for 2 weeks and then [facility] for 6 weeks afterwards. He states that the groin ulcer which extends to his left lower abdomen has been slowly improving and he has been doing daily Aquacel AG dressings with an ABD for the drainage. He does state that he has had 3 wound vacs in the past which were unable to be utilized due to the location of his wound. He denies any foul-smelling discharge or systemic signs of infection at this time. He is seen today as a courtesy visit for Gianni Neil CNP. He is tolerating dressings and denies any increase in drainage. He has been also using sweat beater to his groin area to prevent moisture. The patient otherwise denies any fever, chills, nausea, vomiting, shortness of breath, chest pain or pressure, palpitations, orthopnea, syncope or presyncopal episodes. Progress of Wound: Left groin wound is stable and left abdominal fold ulcer remains healed. Slight maceration seen. No signs of infection at this time. - Physical Exam Vital Signs Temp Pulse Resp BP 97 F L 90 18 149/87 H 12/04/18 16:12 12/04/18 16:12 12/04/18 16:12 12/04/18 16:12 General: Alert, Oriented x3, Cooperative, No apparent distress HEENT: Atraumatic Oral: Moist Mucosa Lungs: Clear to auscultation Cardiovascular: Regular rate Abdomen: Obese Skin: Ulcer/ Wound - Wound to left groin with small amount of adherent slough and small amount of periwound bed maceration, no signs of infection at this time, no purulent drainage or discharge Wound Measurements and Assessment WC - Nurse 1 - General Ulcer Measurement Start: 11/20/18 16:20 Freq: Status: Active Protocol: Activity Type Activity Date Activity User E-Sign Co-Sign Detail Recorded Client Recorded Date Recorded By Document 12/04/18 16:12 [place] [id number] 12/04/18 16:19 [place] 12/04/18 16:12 Wound Center Nurse 1 [Ulcer Assessment] #1- LEFT GROIN- POST OP -Current Size (cm) - Length 16.5 -Current Size (cm) - Width 1.2 -Current Size (cm) - Depth 0.2 -Total Square Cm 19.80 -Exudate Amt Small -Exudate Type Serosanguineous -Wound Margin Flat & Intact -Granulation Amt Large (67-100%) -Granulation Quality Pale,[place] -Slough/Fibrin No -Texture (Inessa-wound Skin Appearance) Assessed -Moisture (Inessa-wound Skin Appearance Assessed, ) Maceration -Color (Inessa-wound Skin Appearance) Assessed -Temperature (Inessa-wound Skin No Abnormality Appearance) (Pt Warm) -Tenderness on Palpation (Inessa-wound No Skin Appearance) -Ulcer Cleansing Rinsed/ Irrigated with Saline -Foul Odor after Cleansing No -Anesthetic Used 4% Lidocaine Solution [Edema Assessment] -Lower Limb Edema Present NA - Nurse 2 - General Ulcer CM Notes Start: 11/20/18 16:20 Freq: Status: Active Protocol: Activity Type Activity Date Activity User E-Sign Co-Sign Detail Recorded Client Recorded Date Recorded By Document 12/04/18 16:24 AN [id number] 12/04/18 16:27 AN 12/04/18 16:24 Wound Center Nurse 2 [Procedure/Treatment] #1- LEFT GROIN- POST OP -Time 16:24 -Correct Patient Yes -Correct Side, Site, Position Yes -Correct Procedure Yes -Procedure Performed Yes -Type of Procedure Debridement -Clinical Debridement Subcutaneous -Post Debridement Size (cm) - Length 2.1 -Post Debridement Size (cm) - Width 10.5 -Post Debridement Size (cm) - Depth 0.1 -Total Square Cm 22.05 -Wound/Ulcer Outcome Not Healed -Ulcer Cleansing Rinsed/ Irrigated with Saline -Foul Odor after Cleansing No -Bleeding Controlled with Pressure -Offloading No -Treatment Response Procedure Tolerated Well [See Physician Procedure note for Specifics] Pain Scale: 0-10 Numeric [Pain] -Is Patient Pain Free? Yes Neurological: Neuro grossly intact Psych/Mental Status: Normal Affect, Appropriate, Alert and oriented to time, place, person, mood and affect Debridement Note Post-Debridement Measurements/Treatment - Nurse 2 - General Ulcer CM Notes Start: 11/20/18 16:20 Freq: Status: Active Protocol: Activity Type Activity Date Activity User E-Sign Co-Sign Detail Recorded Client Recorded Date Recorded By Document 11/20/18 16:32 AN [id number] 11/20/18 16:36 AN Document 11/27/18 18:45 AN [id number] 11/27/18 18:46 AN Document 12/04/18 16:24 AN [id number] 12/04/18 16:27 AN 11/20/18 11/27/18 12/04/18 16:32 18:45 16:24 Wound Center Nurse 2 #1- LEFT GROIN- POST OP -Time 16:33 15:30 16:24 -Correct Patient Yes Yes Yes -Correct Side, Site, Position Yes Yes Yes -Correct Procedure Yes Yes Yes -Procedure Performed Yes Yes Yes -Type of Procedure Debridement Debridement Debridement -Clinical Debridement Subcutaneous Subcutaneous Subcutaneous -Post Debridement Size (cm) - Length 2 2.1 2.1 -Post Debridement Size (cm) - Width 11.5 10.8 10.5 -Post Debridement Size (cm) - Depth 0.1 0.1 0.1 -Total Square Cm 23.0 22.68 22.05 -Wound/Ulcer Outcome Not Healed Not Healed Not Healed -Ulcer Cleansing Rinsed/ Rinsed/ Rinsed/ Irrigated with Irrigated with Irrigated with Saline Saline Saline -Foul Odor after Cleansing No No No -Bioengineered Tissue No No -Bleeding Controlled with Pressure Pressure Pressure -Offloading No No No -Treatment Response Procedure Procedure Procedure Tolerated Well Tolerated Well Tolerated Well Pain Scale: 0-10 Numeric Is Patient Pain Free? Yes Yes Wound debrided: Nonhealing wound left groin Type of Debridement: Excisional debridement Anesthesia Used: 5% Lidocaine Gel Depth: in the subcutaneous layer Percentage of wound debrided: 100 Instrument Used: 7mm curette Tissue Removed: Slough and devitalized tissue Severity: Fat Layer Exposed Amount of bleeding with debridement: Mild Bleeding Controlled with: Pressure Patient tolerated procedure well Assessment/Plan Active Problems History of necrotising fasciitis (Chronic) Lymphedema of both lower extremities (Acute) Morbid obesity (Chronic) Non-healing surgical wound of left groin (Chronic) Non-healing surgical wound (Chronic) Skin ulcer of abdominal wall with fat layer exposed (Chronic) left abdominal fold Assessment: Nonhealing postsurgical wound left groin status post surgical excision of necrotizing fasciitis. Bilateral lower extremity edema. Morbid obesity. Type 2 diabetes mellitus Plan: The patient was seen and examined at the wound center today and was updated on the plan of care. A subcutaneous debridement was performed today. The patient tolerated the procedure well. The patients wound care will consist of: hydrofera blue/Aquacell extra change daily and as needed cover with gauze. Did discuss proper drying mechanisms after showering to prevent excess moisture. Baseline bloodwork reviewed which demonstrated a slightly low pre-albumin and patient was advised to use Glucerna or high-protein with meals. Repeat lab work WNL. Prealbumin WNL now. Previous records were requested for continuity of care. Patient educated on the importance of diet on wound healing and instructed to increase protein and vitamin C intake. Patient verbalized understanding. Plastic surgery consultation - no surgery indicated. Did discuss with patient the importance of blood sugar control in wound healing, recent A1C in 02/2018 was 6.1. Patient to follow-up in 1 week or sooner if needed. Patient is on a complex wound plan. This note was generated with [employer] dictation software. It may contain incorrect words, spelling, and punctuation that were not noted in checking the note before signing. Code Visit [id number]: [id number] Jessica subq tissue 20 sq cm/<
[2018-12-11 15:37] VITALS: BP 147/92; PULSE 88; RESP 16; TEMP 35.9
--- NOTE | 2018-12-11 16:45 | PCM.WC.PN ---
(1) Non-healing surgical wound Status: Chronic Qualifiers: Code(s): T81.89XA - Other complications of procedures, not elsewhere classified, initial encounter (2) Lymphedema of both lower extremities Status: Acute Code(s): I89.0 - Lymphedema, not elsewhere classified (3) History of necrotising fasciitis Status: Chronic Code(s): Z87.39 - Personal history of other diseases of the musculoskeletal system and connective tissue (4) Morbid obesity Status: Chronic Code(s): E66.01 - Morbid (severe) obesity due to excess calories (5) Non-healing surgical wound of left groin Status: Chronic Qualifiers: Code(s): T81.89XA - Other complications of procedures, not elsewhere classified, initial encounter (6) Skin ulcer of abdominal wall with fat layer exposed Status: Chronic Code(s): L98.492 - Non-pressure chronic ulcer of skin of other sites with fat layer exposed Comment: left abdominal fold (7) Type 2 diabetes mellitus Status: Chronic Qualifiers: Code(s): E11.9 - Type 2 diabetes mellitus without complications Type of Wound Date of Service: 12/11/18 Chief Complaint: Nonhealing wound status post surgical excision of necrotizing fasciitis left groin History of Wound: 46-year-old white male who presents to the wound healing center today with complaint of left groin ulceration status post surgical excision of necrotizing fasciitis. He is a past medical history which is significant for that of type 2 diabetes mellitus, gout, diabetic neuropathy, schizophrenia, bilateral lymphedema, and schizophrenia. The patient states that what initially started as a pimple in his left groin progressed to necrotizing fasciitis and he had to have this surgically debrided in April 2017. He was admitted to [facility] for 2 weeks and then [facility] for 6 weeks afterwards. He states that the groin ulcer which extends to his left lower abdomen has been slowly improving and he has been doing daily Aquacel AG dressings with an ABD for the drainage. He does state that he has had 3 wound vacs in the past which were unable to be utilized due to the location of his wound. He denies any foul-smelling discharge or systemic signs of infection at this time. He is seen today as a courtesy visit for Gianni Neil CNP. He is tolerating dressings and denies any increase in drainage. He has been also using sweat beater to his groin area to prevent moisture. The patient otherwise denies any fever, chills, nausea, vomiting, shortness of breath, chest pain or pressure, palpitations, orthopnea, syncope or presyncopal episodes. Progress of Wound: Left groin wound is stable and left abdominal fold ulcer remains healed. Slight maceration seen. No signs of infection at this time. - Physical Exam Vital Signs Temp Pulse Resp BP 96.6 F L 88 16 147/92 H 12/11/18 15:37 12/11/18 15:37 12/11/18 15:37 12/11/18 15:37 General: Alert, Oriented x3, Cooperative, No apparent distress HEENT: Atraumatic Lungs: Clear to auscultation Cardiovascular: Regular rate Abdomen: Soft, Obese Extremities: No clubbing, No cyanosis Skin: Ulcer/ Wound - See nursing documentation on wounds Neurological: Neuro grossly intact Psych/Mental Status: Normal Affect, Appropriate, Alert and oriented to time, place, person, mood and affect Debridement Note Post-Debridement Measurements/Treatment WC - Nurse 2 - General Ulcer CM Notes Start: 11/20/18 16:20 Freq: Status: Active Protocol: Activity Type Activity Date Activity User E-Sign Co-Sign Detail Recorded Client Recorded Date Recorded By Document 11/20/18 16:32 AN [id number] 11/20/18 16:36 AN Document 11/27/18 18:45 AN [id number] 11/27/18 18:46 AN Document 12/04/18 16:24 AN [id number] 12/04/18 16:27 AN Document 12/11/18 15:53 [id number] 12/11/18 15:59 11/20/18 11/27/18 12/04/18 16:32 18:45 16:24 Wound Center Nurse 2 #2 Left Abdominal Fold -Time -Post Debridement Size (cm) - Length -Post Debridement Size (cm) - Width -Post Debridement Size (cm) - Depth -Total Square Cm -Wound/Ulcer Outcome #1- LEFT GROIN- POST OP -Time 16:33 15:30 16:24 -Correct Patient Yes Yes Yes -Correct Side, Site, Position Yes Yes Yes -Correct Procedure Yes Yes Yes -Procedure Performed Yes Yes Yes -Type of Procedure Debridement Debridement Debridement -Clinical Debridement Subcutaneous Subcutaneous Subcutaneous -Post Debridement Size (cm) - Length 2 2.1 2.1 -Post Debridement Size (cm) - Width 11.5 10.8 10.5 -Post Debridement Size (cm) - Depth 0.1 0.1 0.1 -Total Square Cm 23.0 22.68 22.05 -Wound/Ulcer Outcome Not Healed Not Healed Not Healed -Ulcer Cleansing Rinsed/ Rinsed/ Rinsed/ Irrigated with Irrigated with Irrigated with Saline Saline Saline -Foul Odor after Cleansing No No No -Bioengineered Tissue No No -Bleeding Controlled with Pressure Pressure Pressure -Offloading No No No -Treatment Response Procedure Procedure Procedure Tolerated Well Tolerated Well Tolerated Well Pain Scale: 0-10 Numeric Is Patient Pain Free? Yes Yes 12/11/18 15:53 Wound Center Nurse 2 #2 Left Abdominal Fold -Time 15:54 -Post Debridement Size (cm) - Length 0 -Post Debridement Size (cm) - Width 0 -Post Debridement Size (cm) - Depth 0 -Total Square Cm 0 -Wound/Ulcer Outcome Healed- Epithelialized #1- LEFT GROIN- POST OP -Time 15:55 -Correct Patient Yes -Correct Side, Site, Position Yes -Correct Procedure Yes -Procedure Performed Yes -Type of Procedure Debridement -Clinical Debridement Subcutaneous -Post Debridement Size (cm) - Length 2.1 -Post Debridement Size (cm) - Width 12 -Post Debridement Size (cm) - Depth 0.1 -Total Square Cm 25.2 -Wound/Ulcer Outcome Not Healed -Ulcer Cleansing Rinsed/ Irrigated with Saline -Foul Odor after Cleansing No -Bioengineered Tissue No -Bleeding Controlled with Pressure -Offloading -Treatment Response Procedure Tolerated Well Pain Scale: 0-10 Numeric Is Patient Pain Free? Yes Wound debrided: Nonhealing ulcer to left groin Type of Debridement: Excisional debridement Anesthesia Used: 5% Lidocaine Gel Depth: in the subcutaneous layer Percentage of wound debrided: 100 Instrument Used: 7mm curette Tissue Removed: Slough and devitalized tissue Severity: Fat Layer Exposed Amount of bleeding with debridement: Mild Bleeding Controlled with: Pressure Patient tolerated procedure well Assessment/Plan Assessment: Nonhealing postsurgical wound left groin status post surgical excision of necrotizing fasciitis. Bilateral lower extremity edema. Morbid obesity. Type 2 diabetes mellitus Plan: The patient was seen and examined at the wound center today and was updated on the plan of care. A subcutaneous debridement was performed today. The patient tolerated the procedure well. The patients wound care will consist of: hydrofera blue/Aquacell extra change daily and as needed cover with gauze. Did discuss proper drying mechanisms after showering to prevent excess moisture. Baseline bloodwork reviewed which demonstrated a slightly low pre-albumin and patient was advised to use Glucerna or high-protein with meals. Repeat lab work WNL. Prealbumin WNL now. Previous records were requested for continuity of care. Patient educated on the importance of diet on wound healing and instructed to increase protein and vitamin C intake. Patient verbalized understanding. Plastic surgery consultation - no surgery indicated. Did discuss with patient the importance of blood sugar control in wound healing, recent A1C in 02/2018 was 6.1. Patient to follow-up in 1 week or sooner if needed. Patient is on a complex wound plan. This note was generated with [employer] dictation software. It may contain incorrect words, spelling, and punctuation that were not noted in checking the note before signing. Code Visit 111xxx-113xx: [id number] Jessica subq tissue 20 sq cm/<
[2018-12-18 15:51] VITALS: BP 140/76; PULSE 81; RESP 20; TEMP 36.6
--- NOTE | 2018-12-18 20:04 | PN.PCM_ITS ---
(1) Non-healing surgical wound Status: Chronic Qualifiers: Code(s): T81.89XA - Other complications of procedures, not elsewhere classified, initial encounter (2) Lymphedema of both lower extremities Status: Acute Code(s): I89.0 - Lymphedema, not elsewhere classified (3) History of necrotising fasciitis Status: Chronic Code(s): Z87.39 - Personal history of other diseases of the musculoskeletal system and connective tissue (4) Morbid obesity Status: Chronic Code(s): E66.01 - Morbid (severe) obesity due to excess calories (5) Non-healing surgical wound of left groin Status: Chronic Qualifiers: Code(s): T81.89XA - Other complications of procedures, not elsewhere classified, initial encounter (6) Skin ulcer of abdominal wall with fat layer exposed Status: Chronic Code(s): L98.492 - Non-pressure chronic ulcer of skin of other sites with fat layer exposed Comment: left abdominal fold (7) Type 2 diabetes mellitus Status: Chronic Qualifiers: Code(s): E11.9 - Type 2 diabetes mellitus without complications Type of Wound Date of Service: 12/18/18 Chief Complaint: Nonhealing wound status post surgical excision of necrotizing fasciitis left groin History of Wound: 46-year-old white male who presents to the wound healing center today with complaint of left groin ulceration status post surgical excision of necrotizing fasciitis. He is a past medical history which is si gnificant for that of type 2 diabetes mellitus, gout, diabetic neuropathy, schizophrenia, bilateral lymphedema, and schizophrenia. The patient states that what initially started as a pimple in his left groin progressed to necrotizing fasciitis and he had to have this surgically debrided in April 2017. He was admitted to [facility] for 2 weeks and then [facility] for 6 weeks afterwards. He states that the groin ulcer which extends to his left lower abdomen has been slowly improving and he has been doing daily Aquacel AG dressings with an ABD for the drainage. He does state that he has had 3 wound vacs in the past which were unable to be utilized due to the location of his wound. He denies any foul-smelling discharge or systemic signs of infection at this time. He is seen today as a courtesy visit for Gianni Neil CNP. He is tolerating dressings and denies any increase in drainage. He has been also using sweat beater to his groin area to prevent moisture. The patient otherwise denies any fever, chills, nausea, vomiting, shortness of breath, chest pain or pressure, palpitations, orthopnea, syncope or presyncopal episodes. Progress of Wound: Left groin wound is stable and left abdominal fold ulcer remains healed. Slight maceration seen. No signs of infection at this time. - Physical Exam Vital Signs Temp Pulse Resp BP 97.8 F 81 20 H 140/76 H 12/18/18 15:51 12/18/18 15:51 12/18/18 15:51 12/18/18 15:51 General: Alert, Oriented x3, Cooperative, No apparent distress HEENT: Atraumatic Oral: Moist Mucosa Neck: Supple Lungs: Clear to auscultation Cardiovascular: Regular rate Abdomen: Soft, Non Tender Extremities: No clubbing, No cyanosis, No edema Skin: Ulcer/ Wound - Ulceration to left groin with adherent slough, slight maceration noted on wound bed edges, otherwise no signs of obvious infection at this time. Neurological: Neuro grossly intact Psych/Mental Status: Normal Affect, Appropriate, Alert and oriented to time, place, person, mood and affect Debridement Note Post-Debridement Measurements/Treatment WC - Nurse 2 - General Ulcer CM Notes Start: 11/20/18 16:20 Freq: Status: Active Protocol: Activity Type Activity Date Activity User E-Sign Co-Sign Detail Recorded Client Recorded Date Recorded By Document 11/20/18 16:32 AN [id number] 11/20/18 16:36 AN Document 11/27/18 18:45 AN [id number] 11/27/18 18:46 AN Document 12/04/18 16:24 AN [id number] 12/04/18 16:27 AN Document 12/11/18 15:53 [id number] 12/11/18 15:59 MD Document 12/18/18 16:12 MW [id number] 12/18/18 16:16 11/20/18 11/27/18 12/04/18 16:32 18:45 16:24 Wound Center Nurse 2 #2 Left Abdominal Fold -Time -Post Debridement Size (cm) - Length -Post Debridement Size (cm) - Width -Post Debridement Size (cm) - Depth -Total Square Cm -Wound/Ulcer Outcome #1- LEFT GROIN- POST OP -Time 16:33 15:30 16:24 -Correct Patient Yes Yes Yes -Correct Side, Site, Position Yes Yes Yes -Correct Procedure Yes Yes Yes -Procedure Performed Yes Yes Yes -Type of Procedure Debridement Debridement Debridement -Clinical Debridement Subcutaneous Subcutaneous Subcutaneous -Post Debridement Size (cm) - Length 2 2.1 2.1 -Post Debridement Size (cm) - Width 11.5 10.8 10.5 -Post Debridement Size (cm) - Depth 0.1 0.1 0.1 -Total Square Cm 23.0 22.68 22.05 -Wound/Ulcer Outcome Not Healed Not Healed Not Healed -Ulcer Cleansing Rinsed/ Rinsed/ Rinsed/ Irrigated with Irrigated with Irrigated with Saline Saline Saline -Foul Odor after Cleansing No No No -Bioengineered Tissue No No -Bleeding Controlled with Pressure Pressure Pressure -Offloading No No No -Treatment Response Procedure Procedure Procedure Tolerated Well Tolerated Well Tolerated Well Pain Scale: 0-10 Numeric Is Patient Pain Free? Yes Yes 12/11/18 12/18/18 15:53 16:12 Wound Center Nurse 2 #2 Left Abdominal Fold -Time 15:54 -Post Debridement Size (cm) - Length 0 -Post Debridement Size (cm) - Width 0 -Post Debridement Size (cm) - Depth 0 -Total Square Cm 0 -Wound/Ulcer Outcome Healed- Epithelialized #1- LEFT GROIN- POST OP -Time 15:55 16:12 -Correct Patient Yes Yes -Correct Side, Site, Position Yes Yes -Correct Procedure Yes Yes -Procedure Performed Yes Yes -Type of Procedure Debridement Debridement -Clinical Debridement Subcutaneous Subcutaneous -Post Debridement Size (cm) - Length 2.1 2.0 -Post Debridement Size (cm) - Width 12 10.0 -Post Debridement Size (cm) - Depth 0.1 0.1 -Total Square Cm 25.2 20.00 -Wound/Ulcer Outcome Not Healed Not Healed -Ulcer Cleansing Rinsed/ Rinsed/ Irrigated with Irrigated with Saline Saline -Foul Odor after Cleansing No No -Bioengineered Tissue No No -Bleeding Controlled with Pressure Pressure -Offloading No -Treatment Response Procedure Procedure Tolerated Well Tolerated Well Pain Scale: 0-10 Numeric Is Patient Pain Free? Yes Yes Wound debrided: left groin ulcer s/p nec fac removal Laterality: Left Type of Debridement: Excisional debridement Anesthesia Used: 5% Lidocaine Gel Depth: in the subcutaneous layer Percentage of wound debrided: 100 Instrument Used: 7mm curette Tissue Removed: slough and devitalized tissue Severity: Fat Layer Exposed Amount of bleeding with debridement: Mild Bleeding Controlled with: Pressure Patient tolerated procedure well Assessment/Plan Assessment: Nonhealing postsurgical wound left groin status post surgical excision of necrotizing fasciitis. Bilateral lower extremity edema. Morbid obesity. Type 2 diabetes mellitus Plan: The patient was seen and examined at the wound center today and was updated on the plan of care. A subcutaneous debridement was performed today. The patient tolerated the procedure well. The patients wound care will consist of: hydrofera blue/Aquacell extra change daily and as needed cover with gauze. Did discuss proper drying mechanisms after showering to prevent excess moisture. Baseline bloodwork reviewed which demonstrated a slightly low pre-albumin and patient was advised to use Glucerna or high-protein with meals. Repeat lab work WNL. Prealbumin WNL now. Previous records were requested for continuity of care. Patient educated on the importance of diet on wound healing and instructed to increase protein and vitamin C intake. Patient verbalized understanding. Plastic surgery consultation - no surgery indicated. Did discuss with patient the importance of blood sugar control in wound healing, recent A1C in 02/2018 was 6.1. Patient to follow-up in 1 week or sooner if needed. Patient is on a complex wound plan. This note was generated with [employer] dictation software. It may contain incorrect words, spelling, and punctuation that were not noted in checking the note before signing. Code Visit 111xxx-113xx: [id number] Jessica subq tissue 20 sq cm/<
== END 2018-12-20 23:59 ==
LOC: WC 15:30
PROVIDERS: Family Provider Family Medicine; PCP Family Medicine; Visit Provider Nurse Practitioner Family
DX: T81.89XA Other complications of procedures, not elsewhere classified, initial encounter (principal); E66.01 Morbid (severe) obesity due to excess calories; Z71.3 Dietary counseling and surveillance; I89.0 Lymphedema, not elsewhere classified; Z87.39 Personal history of other diseases of the musculoskeletal system and connective tissue; E11.622 Type 2 diabetes mellitus with other skin ulcer; L98.492 Non-pressure chronic ulcer of skin of other sites with fat layer exposed; E11.40 Type 2 diabetes mellitus with diabetic neuropathy, unspecified; Y83.8 Other surgical procedures as the cause of abnormal reaction of the patient, or of later complication, without mention of misadventure at the time of the procedure; R60.0 Localized edema
CPT/HCPCS: 11042; 11045

== ENCOUNTER 2019-01-15 15:15 | Outpatient (RCR) | payer MEDICARE, MEDICAID, SELFPAY ==
[2018-12-21 00:30] VITALS: BP 140/76; PULSE 81; RESP 20; TEMP 36.6
[2018-12-25 16:14] VITALS: BP 140/88; PULSE 90; RESP 18; TEMP 36.1
--- NOTE | 2018-12-25 17:23 | PCM.WC.PN ---
(1) Non-healing surgical wound of left groin Status: Chronic Qualifiers: Code(s): T81.89XA - Other complications of procedures, not elsewhere classified, initial encounter (2) Lymphedema of both lower extremities Status: Acute Code(s): I89.0 - Lymphedema, not elsewhere classified (3) History of necrotising fasciitis Status: Chronic Code(s): Z87.39 - Personal history of other diseases of the musculoskeletal system and connective tissue (4) Morbid obesity Status: Chronic Code(s): E66.01 - Morbid (severe) obesity due to excess calories (5) Skin ulcer of abdominal wall with fat layer exposed Status: Chronic Code(s): L98.492 - Non-pressure chronic ulcer of skin of other sites with fat layer exposed Comment: left abdominal fold (6) Type 2 diabetes mellitus Status: Chronic Qualifiers: Code(s): E11.9 - Type 2 diabetes mellitus without complications Type of Wound Date of Service: 12/25/18 Chief Complaint: Nonhealing wound status post surgical excision of necrotizing fasciitis left groin History of Wound: 46-year-old white male who presents to the wound healing center today with complaint of left groin ulceration status post surgical excision of necrotizing fasciitis. He is a past medical history which is significant for that of type 2 diabetes mellitus, gout, diabetic neuropathy, schizophrenia, bilateral lymphedema, and schizophrenia. The patient states that what initially started as a pimple in his left groin progressed to necrotizing fasciitis and he had to have this surgically debrided in April 2017. He was admitted to [facility] for 2 weeks and then [facility] for 6 weeks afterwards. He states that the groin ulcer which extends to his left lower abdomen has been slowly improving and he has been doing daily Aquacel AG dressings with an ABD for the drainage. He does state that he has had 3 wound vacs in the past which were unable to be utilized due to the location of his wound. He denies any foul-smelling discharge or systemic signs of infection at this time. He is seen today as a courtesy visit for Gianni Neil CNP. He is tolerating dressings and denies any increase in drainage. He has been also using sweat beater to his groin area to prevent moisture. The patient otherwise denies any fever, chills, nausea, vomiting, shortness of breath, chest pain or pressure, palpitations, orthopnea, syncope or presyncopal episodes. Progress of Wound: Left groin wound is stable and left abdominal fold ulcer remains healed. Slight maceration seen. No signs of infection at this time. - Physical Exam Vital Signs Temp Pulse Resp BP 97 F L 90 18 140/88 H 12/25/18 16:14 12/25/18 16:14 12/25/18 16:14 12/25/18 16:14 General: Alert, Oriented x3, Cooperative, No apparent distress HEENT: Atraumatic Oral: Moist Mucosa Lungs: Clear to auscultation Cardiovascular: Regular rate Abdomen: Soft, Non Tender, Obese Extremities: No clubbing, No cyanosis, Edema - Bilateral lower extremity edema Skin: Ulcer/ Wound - Ulceration to left groin with adherent slough, no signs of infection at this time. Neurological: Neuro grossly intact Psych/Mental Status: Normal Affect, Appropriate, Alert and oriented to time, place, person, mood and affect Debridement Note Post-Debridement Measurements/Treatment WC - Nurse 2 - General Ulcer CM Notes Start: 12/25/18 16:14 Freq: Status: Active Protocol: Activity Type Activity Date Activity User E-Sign Co-Sign Detail Recorded Client Recorded Date Recorded By Document 12/25/18 18:50 AN [id number] 12/25/18 18:51 AN 12/25/18 18:50 Wound Center Nurse 2 #1- LEFT GROIN- POST OP -Time 18:50 -Correct Patient Yes -Correct Side, Site, Position Yes -Correct Procedure Yes -Procedure Performed Yes -Type of Procedure Debridement -Clinical Debridement Subcutaneous -Post Debridement Size (cm) - Length 2 -Post Debridement Size (cm) - Width 9.5 -Post Debridement Size (cm) - Depth 0.1 -Total Square Cm 19.0 -Wound/Ulcer Outcome Not Healed -Ulcer Cleansing Rinsed/ Irrigated with Saline -Foul Odor after Cleansing No -Bioengineered Tissue No -Bleeding Controlled with Pressure -Offloading No -Treatment Response Procedure Tolerated Well Pain Scale: 0-10 Numeric Is Patient Pain Free? Yes Wound debrided: Ulceration to left groin Laterality: Left Type of Debridement: Excisional debridement Anesthesia Used: 5% Lidocaine Gel Depth: in the subcutaneous layer Percentage of wound debrided: 100 Instrument Used: 7mm curette Tissue Removed: Slough and devitalized tissue Severity: Fat Layer Exposed Amount of bleeding with debridement: Mild Bleeding Controlled with: Pressure Patient tolerated procedure well Assessment/Plan Assessment: Nonhealing postsurgical wound left groin status post surgical excision of necrotizing fasciitis. Bilateral lower extremity edema. Morbid obesity. Type 2 diabetes mellitus Plan: The patient was seen and examined at the wound center today and was updated on the plan of care. A subcutaneous debridement was performed today. The patient tolerated the procedure well. The patients wound care will consist of: hydrofera blue/Aquacell extra change daily and as needed cover with gauze. Did discuss proper drying mechanisms after showering to prevent excess moisture. Baseline bloodwork reviewed which demonstrated a slightly low pre-albumin and patient was advised to use Glucerna or high-protein with meals. Repeat lab work WNL. Prealbumin WNL now. Previous records were requested for continuity of care. Patient educated on the importance of diet on wound healing and instructed to increase protein and vitamin C intake. Patient verbalized understanding. Plastic surgery consultation - no surgery indicated. Did discuss with patient the importance of blood sugar control in wound healing, recent A1C in 02/2018 was 6.1. Patient to follow-up in 1 week or sooner if needed. Patient is on a complex wound plan. This note was generated with [employer] dictation software. It may contain incorrect words, spelling, and punctuation that were not noted in checking the note before signing. Code Visit 111xxx-113xx: [id number] Jessica subq tissue 20 sq cm/<
[2019-01-01 15:21] VITALS: BP 157/97; PULSE 77; RESP 18; TEMP 37
--- NOTE | 2019-01-01 20:28 | PN.PCM_ITS ---
(1) Non-healing surgical wound of left groin Status: Chronic Qualifiers: Code(s): T81.89XA - Other complications of procedures, not elsewhere classified, initial encounter (2) Lymphedema of both lower extremities Status: Acute Code(s): I89.0 - Lymphedema, not elsewhere classified (3) History of necrotising fasciitis Status: Chronic Code(s): Z87.39 - Personal history of other diseases of the musculoskeletal system and connective tissue (4) Morbid obesity Status: Chronic Code(s): E66.01 - Morbid (severe) obesity due to excess calories (5) Skin ulcer of abdominal wall with fat layer exposed Status: Chronic Code(s): L98.492 - Non-pressure chronic ulcer of skin of other sites with fat layer exposed Comment: left abdominal fold (6) Type 2 diabetes mellitus Status: Chronic Qualifiers: Code(s): E11.9 - Type 2 diabetes mellitus without complications Type of Wound Date of Service: 01/01/19 Chief Complaint: Nonhealing wound status post surgical excision of necrotizing fasciitis left groin History of Wound: 46-year-old white male who presents to the wound healing center today with complaint of left groin ulceration status post surgical excision of necrotizing fasciitis. He is a past medical history which is significant for that of type 2 diabetes mellitus, gout, diabetic neuropathy, schizophrenia, bilateral lymphedema, and schizophrenia. The patient states that what initially started as a pimple in his left groin progressed to necrotizing fasciitis and he had to have this surgically debrided in April 2017. He was admitted to [facility] for 2 weeks and then [facility] for 6 weeks afterwards. He states that the groin ulcer which extends to his left lower abdomen has been slowly improving and he has been doing daily Aquacel AG dressings with an ABD for the drainage. He does state that he has had 3 wound vacs in the past which were unable to be utilized due to the location of his wound. He denies any foul-smelling discharge or systemic signs of infection at this time. He is seen today as a courtesy visit for Gianni Neil CNP. He is tolerating dressings and denies any increase in drainage. He has been also using sweat beater to his groin area to prevent moisture. The patient otherwise denies any fever, chills, nausea, vomiting, shortness of breath, chest pain or pressure, palpitations, orthopnea, syncope or presyncopal episodes. Progress of Wound: Left groin wound is stable and left abdominal fold ulcer remains healed. Slight maceration seen. No signs of infection at this time. - Physical Exam Vital Signs Temp Pulse Resp BP 98.6 F 77 18 157/97 H 01/01/19 15:21 01/01/19 15:21 01/01/19 15:21 01/01/19 15:21 General: Alert, Oriented x3, Cooperative, No apparent distress HEENT: Atraumatic Oral: Moist Mucosa Lungs: Clear to auscultation, Normal air movement Cardiovascular: Regular rate, Regular Rhythm Abdomen: Obese Extremities: No clubbing, No cyanosis, No edema Skin: Ulcer/ Wound - Ulceration to left groin with adherent slough, no signs of infection at this time Musculoskeletal: No Tenderness to Palpation of Joints or Extremities, No Muscle Wasting Neurological: Neuro grossly intact Psych/Mental Status: Normal Affect, Appropriate, Alert and oriented to time, place, person, mood and affect Debridement Note Post-Debridement Measurements/Treatment WC - Nurse 2 - General Ulcer CM Notes Start: 12/25/18 16:14 Freq: Status: Active Protocol: Activity Type Activity Date Activity User E-Sign Co-Sign Detail Recorded Client Recorded Date Recorded By Document 12/25/18 18:50 AN [id number] 12/25/18 18:51 AN Document 01/01/19 17:49 AN [id number] 01/01/19 17:50 AN 12/25/18 01/01/19 18:50 17:49 Wound Center Nurse 2 #1- LEFT GROIN- POST OP -Time 18:50 17:49 -Correct Patient Yes Yes -Correct Side, Site, Position Yes Yes -Correct Procedure Yes Yes -Procedure Performed Yes Yes -Type of Procedure Debridement Debridement -Clinical Debridement Subcutaneous Subcutaneous -Post Debridement Size (cm) - Length 2 1.8 -Post Debridement Size (cm) - Width 9.5 10 -Post Debridement Size (cm) - Depth 0.1 0.1 -Total Square Cm 19.0 18.0 -Wound/Ulcer Outcome Not Healed Not Healed -Ulcer Cleansing Rinsed/ Rinsed/ Irrigated with Irrigated with Saline Saline -Foul Odor after Cleansing No No -Bioengineered Tissue No No -Bleeding Controlled with Pressure Pressure -Offloading No No -Treatment Response Procedure Procedure Tolerated Well Tolerated Well Pain Scale: 0-10 Numeric Is Patient Pain Free? Yes Yes Wound debrided: Left groin nonhealing ulcer Laterality: Left Type of Debridement: Excisional debridement Anesthesia Used: 5% Lidocaine Gel Depth: in the subcutaneous layer Percentage of wound debrided: 100 Instrument Used: 7mm curette Tissue Removed: Slough and devitalized tissue Severity: Fat Layer Exposed Amount of bleeding with debridement: Mild Bleeding Controlled with: Pressure Patient tolerated procedure well Assessment/Plan Assessment: Nonhealing postsurgical wound left groin status post surgical excision of necrotizing fasciitis. Bilateral lower extremity edema. Morbid obesity. Type 2 diabetes mellitus Plan: The patient was seen and examined at the wound center today and was updated on the plan of care. A subcutaneous debridement was performed today. The patient tolerated the procedure well. The patients wound care will consist of: hydrofera blue/Aquacell extra change daily and as needed cover with gauze. Did discuss proper drying mechanisms after showering to prevent excess moisture. Baseline bloodwork reviewed which demonstrated a slightly low pre-albumin and patient was advised to use Glucerna or high-protein with meals. Repeat lab work WNL. Prealbumin WNL now. Previous records were requested for continuity of care. Patient educated on the importance of diet on wound healing and instructed to increase protein and vitamin C intake. Patient verbalized understanding. Plastic surgery consultation - no surgery indicated. Did discuss with patient the importance of blood sugar control in wound healing, recent A1C in 02/2018 was 6.1. Patient to follow-up in 1 week or sooner if needed. Patient is on a complex wound plan. This note was generated with [employer] dictation software. It may contain incorrect words, spelling, and punctuation that were not noted in checking the note before signing. Code Visit 111xxx-113xx: [id number] Jessica subq tissue 20 sq cm/<
[2019-01-08 15:39] VITALS: BP 132/94; PULSE 98; RESP 18; TEMP 36.1
--- NOTE | 2019-01-08 21:20 | PCM.WC.PN ---
(1) Non-healing surgical wound of left groin Status: Chronic Qualifiers: Code(s): T81.89XA - Other complications of procedures, not elsewhere classified, initial encounter (2) Lymphedema of both lower extremities Status: Acute Code(s): I89.0 - Lymphedema, not elsewhere classified (3) History of necrotising fasciitis Status: Chronic Code(s): Z87.39 - Personal history of other diseases of the musculoskeletal system and connective tissue (4) Morbid obesity Status: Chronic Code(s): E66.01 - Morbid (severe) obesity due to excess calories (5) Skin ulcer of abdominal wall with fat layer exposed Status: Chronic Code(s): L98.492 - Non-pressure chronic ulcer of skin of other sites with fat layer exposed Comment: left abdominal fold (6) Type 2 diabetes mellitus Status: Chronic Qualifiers: Code(s): E11.9 - Type 2 diabetes mellitus without complications Type of Wound Date of Service: 01/08/19 Chief Complaint: Nonhealing wound status post surgical excision of necrotizing fasciitis left groin History of Wound: 46-year-old white male who presents to the wound healing center today with complaint of left groin ulceration status post surgical excision of necrotizing fasciitis. He is a past medical history which is significant for that of type 2 diabetes mellitus, gout, diabetic neuropathy, schizophrenia, bilateral lymphedema, and schizophrenia. The patient states that what initially started as a pimple in his left groin progressed to necrotizing fasciitis and he had to have this surgically debrided in April 2017. He was admitted to [facility] for 2 weeks and then [facility] for 6 weeks afterwards. He states that the groin ulcer which extends to his left lower abdomen has been slowly improving and he has been doing daily Aquacel AG dressings with an ABD for the drainage. He does state that he has had 3 wound vacs in the past which were unable to be utilized due to the location of his wound. He denies any foul-smelling discharge or systemic signs of infection at this time. He is seen today as a courtesy visit for Gianni Neil CNP. He is tolerating dressings and denies any increase in drainage. He has been also using sweat beater to his groin area to prevent moisture. The patient otherwise denies any fever, chills, nausea, vomiting, shortness of breath, chest pain or pressure, palpitations, orthopnea, syncope or presyncopal episodes. Progress of Wound: Left groin wound is stable and left abdominal fold ulcer remains healed. Slight maceration seen. No signs of infection at this time. - Physical Exam Vital Signs Temp Pulse Resp BP 97 F L 98 18 132/94 H 01/08/19 15:39 01/08/19 15:39 01/08/19 15:39 01/08/19 15:39 General: Alert, Oriented x3, Cooperative, No apparent distress HEENT: Atraumatic Oral: Moist Mucosa Lungs: Clear to auscultation Cardiovascular: Regular rate Abdomen: Soft, Non Tender, Obese Extremities: No clubbing, No cyanosis, Edema - Generalized bilateral lower extremity Skin: Ulcer/ Wound - Ulceration to left groin with adherent slough, no signs of infection at this time Neurological: Neuro grossly intact Psych/Mental Status: Normal Affect, Appropriate, Alert and oriented to time, place, person, mood and affect Debridement Note Post-Debridement Measurements/Treatment WC - Nurse 2 - General Ulcer CM Notes Start: 12/25/18 16:14 Freq: Status: Active Protocol: Activity Type Activity Date Activity User E-Sign Co-Sign Detail Recorded Client Recorded Date Recorded By Document 12/25/18 18:50 AN [id number] 12/25/18 18:51 AN Document 01/01/19 17:49 AN [id number] 01/01/19 17:50 AN Document 01/08/19 15:52 AN [id number] 01/08/19 15:54 AN 12/25/18 01/01/19 01/08/19 18:50 17:49 15:52 Wound Center Nurse 2 #1- LEFT GROIN- POST OP -Time 18:50 17:49 15:54 -Correct Patient Yes Yes Yes -Correct Side, Site, Position Yes Yes Yes -Correct Procedure Yes Yes Yes -Procedure Performed Yes Yes Yes -Type of Procedure Debridement Debridement Debridement -Clinical Debridement Subcutaneous Subcutaneous Subcutaneous -Post Debridement Size (cm) - Length 2 1.8 1.8 -Post Debridement Size (cm) - Width 9.5 10 11 -Post Debridement Size (cm) - Depth 0.1 0.1 0.1 -Total Square Cm 19.0 18.0 19.8 -Wound/Ulcer Outcome Not Healed Not Healed Not Healed -Ulcer Cleansing Rinsed/ Rinsed/ Rinsed/ Irrigated with Irrigated with Irrigated with Saline Saline Saline -Foul Odor after Cleansing No No -Bioengineered Tissue No No -Bleeding Controlled with Pressure Pressure -Offloading No No -Treatment Response Procedure Procedure Tolerated Well Tolerated Well Pain Scale: 0-10 Numeric Is Patient Pain Free? Yes Yes Yes Wound debrided: Left groin ulcer Laterality: Left Type of Debridement: Excisional debridement Anesthesia Used: 5% Lidocaine Gel Depth: in the subcutaneous layer Percentage of wound debrided: 100 Instrument Used: 7mm curette Tissue Removed: -Devitalized tissue Severity: Fat Layer Exposed Amount of bleeding with debridement: Mild Bleeding Controlled with: Pressure Patient tolerated procedure well Assessment/Plan Assessment: Nonhealing postsurgical wound left groin status post surgical excision of necrotizing fasciitis. Bilateral lower extremity edema. Morbid obesity. Type 2 diabetes mellitus Plan: The patient was seen and examined at the wound center today and was updated on the plan of care. A subcutaneous debridement was performed today. The patient tolerated the procedure well. The patients wound care will consist of: hydrofera blue/Aquacell extra change daily and as needed cover with gauze. Did discuss proper drying mechanisms after showering to prevent excess moisture. Baseline bloodwork reviewed which demonstrated a slightly low pre-albumin and patient was advised to use Glucerna or high-protein with meals. Repeat lab work WNL. Prealbumin WNL now. Previous records were requested for continuity of care. Patient educated on the importance of diet on wound healing and instructed to increase protein and vitamin C intake. Patient verbalized understanding. Plastic surgery consultation - no surgery indicated. Did discuss with patient the importance of blood sugar control in wound healing, recent A1C in 02/2018 was 6.1. Patient to follow-up in 1 week or sooner if needed. Patient is on a complex wound plan. This note was generated with [employer] software. It may contain incorrect words, spelling, and punctuation that were not noted in checking the note before signing. Code Visit [id number]: [id number] Jessica subq tissue 20 sq cm/<
[2019-01-15 15:23] VITALS: BP 152/89; PULSE 87; RESP 16; TEMP 36.2
--- NOTE | 2019-01-15 18:11 | PN.PCM_ITS ---
(1) Non-healing surgical wound of left groin Status: Chronic Qualifiers: Code(s): T81.89XA - Other complications of procedures, not elsewhere classified, initial encounter (2) Lymphedema of both lower extremities Status: Acute Code(s): I89.0 - Lymphedema, not elsewhere classified (3) History of necrotising fasciitis Status: Chronic Code(s): Z87.39 - Personal history of other diseases of the musculoskeletal system and connective tissue (4) Morbid obesity Status: Chronic Code(s): E66.01 - Morbid (severe) obesity due to excess calories (5) Skin ulcer of abdominal wall with fat layer exposed Status: Chronic Code(s): L98.492 - Non-pressure chronic ulcer of skin of other sites with fat layer exposed Comment: left abdominal fold (6) Type 2 diabetes mellitus Status: Chronic Qualifiers: Code(s): E11.9 - Type 2 diabetes mellitus without complications Type of Wound Date of Service: 01/15/19 Chief Complaint: Nonhealing wound status post surgical excision of necrotizing fasciitis left groin History of Wound: 46-year-old white male who presents to the wound healing center today with complaint of left groin ulceration status post surgical excision of necrotizing fasciitis. He is a past medical history which is significant for that of type 2 diabetes mellitus, gout, diabetic neuropathy, schizophrenia, bilateral lymphedema, and schizophrenia. The patient states that what initially started as a pimple in his left groin progressed to necrotizing fasciitis and he had to have this surgically debrided in April 2017. He was admitted to [facility] for 2 weeks and then [facility] for 6 weeks afterwards. He states that the groin ulcer which extends to his left lower abdomen has been slowly improving and he has been doing daily Aquacel AG dressings with an ABD for the drainage. He does state that he has had 3 wound vacs in the past which were unable to be utilized due to the location of his wound. He denies any foul-smelling discharge or systemic signs of infection at this time. He is seen today as a courtesy visit for Gianni Neil CNP. He is tolerating dressings and denies any increase in drainage. He has been also using sweat beater to his groin area to prevent moisture. The patient otherwise denies any fever, chills, nausea, vomiting, shortness of breath, chest pain or pressure, palpitations, orthopnea, syncope or presyncopal episodes. Progress of Wound: Left groin wound is stable and left abdominal fold ulcer remains healed. Slight maceration seen. No signs of infection at this time. - Physical Exam Vital Signs Temp Pulse Resp BP 97.1 F L 87 16 152/89 H 01/15/19 15:23 01/15/19 15:23 01/15/19 15:23 01/15/19 15:23 General: Alert, Oriented x3, Cooperative, No apparent distress HEENT: Atraumatic Oral: Moist Mucosa Lungs: Clear to auscultation, Normal air movement Cardiovascular: Regular rate, Regular Rhythm Abdomen: Soft, Non Tender Extremities: No clubbing, No cyanosis, No edema Skin: Ulcer/ Wound - Ulceration to left groin slough, no signs of infection at this time, edges slightly macerated. Musculoskeletal: No Muscle Wasting Neurological: Neuro grossly intact Psych/Mental Status: Normal Affect, Appropriate, Alert and oriented to time, place, person, mood and affect Debridement Note Post-Debridement Measurements/Treatment WC - Nurse 2 - General Ulcer CM Notes Start: 12/25/18 16:14 Freq: Status: Active Protocol: Activity Type Activity Date Activity User E-Sign Co-Sign Detail Recorded Client Recorded Date Recorded By Document 12/25/18 18:50 AN [id number] 12/25/18 18:51 AN Document 01/01/19 17:49 AN [id number] 01/01/19 17:50 AN Document 01/08/19 15:52 AN [id number] 01/08/19 15:54 AN Document 01/15/19 16:00 AN [id number] 01/15/19 16:03 AN 12/25/18 01/01/19 01/08/19 18:50 17:49 15:52 Wound Center Nurse 2 #1- LEFT GROIN- POST OP -Time 18:50 17:49 15:54 -Correct Patient Yes Yes Yes -Correct Side, Site, Position Yes Yes Yes -Correct Procedure Yes Yes Yes -Procedure Performed Yes Yes Yes -Type of Procedure Debridement Debridement Debridement -Clinical Debridement Subcutaneous Subcutaneous Subcutaneous -Post Debridement Size (cm) - Length 2 1.8 1.8 -Post Debridement Size (cm) - Width 9.5 10 11 -Post Debridement Size (cm) - Depth 0.1 0.1 0.1 -Total Square Cm 19.0 18.0 19.8 -Wound/Ulcer Outcome Not Healed Not Healed Not Healed -Ulcer Cleansing Rinsed/ Rinsed/ Rinsed/ Irrigated with Irrigated with Irrigated with Saline Saline Saline -Foul Odor after Cleansing No No -Bioengineered Tissue No No -Bleeding Controlled with Pressure Pressure -Offloading No No -Treatment Response Procedure Procedure Tolerated Well Tolerated Well Pain Scale: 0-10 Numeric Is Patient Pain Free? Yes Yes Yes 01/15/19 16:00 Wound Center Nurse 2 #1- LEFT GROIN- POST OP -Time 16:01 -Correct Patient Yes -Correct Side, Site, Position Yes -Correct Procedure Yes -Procedure Performed Yes -Type of Procedure Debridement -Clinical Debridement Subcutaneous -Post Debridement Size (cm) - Length 1.6 -Post Debridement Size (cm) - Width 10.5 -Post Debridement Size (cm) - Depth 0.1 -Total Square Cm 16.80 -Wound/Ulcer Outcome Not Healed -Ulcer Cleansing Rinsed/ Irrigated with Saline -Foul Odor after Cleansing No -Bioengineered Tissue No -Bleeding Controlled with Pressure -Offloading No -Treatment Response Procedure Tolerated Well Pain Scale: 0-10 Numeric Is Patient Pain Free? Yes Wound debrided: Left groin ulceration Laterality: Left Type of Debridement: Excisional debridement Anesthesia Used: 5% Lidocaine Gel Depth: in the subcutaneous layer Percentage of wound debrided: 100 Instrument Used: 7mm curette Tissue Removed: Slough and devitalized tissue Severity: Fat Layer Exposed Amount of bleeding with debridement: Mild Bleeding Controlled with: Pressure Patient tolerated procedure well Assessment/Plan Assessment: Nonhealing postsurgical wound left groin status post surgical excision of necrotizing fasciitis. Bilateral lower extremity edema. Morbid obesity. Type 2 diabetes mellitus Plan: The patient was seen and examined at the wound center today and was updated on the plan of care. A subcutaneous debridement was performed today. The patient tolerated the procedure well. The patients wound care will consist of: hydrofera blue/Aquacell extra change daily and as needed cover with gauze. Did discuss proper drying mechanisms after showering to prevent excess moisture. Baseline bloodwork reviewed which demonstrated a slightly low pre-albumin and patient was advised to use Glucerna or high-protein with meals. Repeat lab work WNL. Prealbumin WNL now. Previous records were requested for continuity of care. Patient educated on the importance of diet on wound healing and instructed to increase protein and vitamin C intake. Patient verbalized understanding. Plastic surgery consultation - no surgery indicated. Did discuss with patient the importance of blood sugar control in wound healing, recent A1C in 02/2018 was 6.1. Patient to follow-up in 1 week or sooner if needed. Patient is on a complex wound plan. This note was generated with [employer] dictation software. It may contain incorrect words, spelling, and punctuation that were not noted in checking the note before signing. Code Visit [id number]: [id number] Jessica subq tissue 20 sq cm/<
== END 2019-01-19 23:59 ==
LOC: WC 15:15
PROVIDERS: Family Provider Family Medicine; PCP Family Medicine; Visit Provider Nurse Practitioner Family
DX: T81.89XA Other complications of procedures, not elsewhere classified, initial encounter (principal); Y83.8 Other surgical procedures as the cause of abnormal reaction of the patient, or of later complication, without mention of misadventure at the time of the procedure; I89.0 Lymphedema, not elsewhere classified; E66.01 Morbid (severe) obesity due to excess calories; L98.492 Non-pressure chronic ulcer of skin of other sites with fat layer exposed; Z87.39 Personal history of other diseases of the musculoskeletal system and connective tissue; E11.622 Type 2 diabetes mellitus with other skin ulcer; E11.40 Type 2 diabetes mellitus with diabetic neuropathy, unspecified; R60.0 Localized edema
CPT/HCPCS: 11042

== ENCOUNTER 2019-02-19 15:30 | Outpatient (RCR) | payer MEDICARE, MEDICAID, SELFPAY ==
[2019-01-20 00:33] VITALS: BP 152/89; PULSE 87; RESP 16; TEMP 36.2
--- NOTE | 2019-01-22 15:23 | PN.PCM_ITS ---
(1) Skin ulcer of abdominal wall with fat layer exposed Status: Chronic Code(s): L98.492 - Non-pressure chronic ulcer of skin of other sites with fat layer exposed Comment: left abdominal fold (2) Non-healing surgical wound of left groin Status: Chronic Qualifiers: Code(s): T81.89XA - Other complications of procedures, not elsewhere classified, initial encounter (3) Lymphedema of both lower extremities Status: Acute Code(s): I89.0 - Lymphedema, not elsewhere classified (4) History of necrotising fasciitis Status: Chronic Code(s): Z87.39 - Personal history of other diseases of the musculoskeletal system and connective tissue (5) Morbid obesity Status: Chronic Code(s): E66.01 - Morbid (severe) obesity due to excess calories (6) Type 2 diabetes mellitus Status: Chronic Qualifiers: Code(s): E11.9 - Type 2 diabetes mellitus without complications Type of Wound Date of Service: 01/22/19 Chief Complaint: Nonhealing wound status post surgical excision of necrotizing fasciitis left groin History of Wound: 46-year-old white male who presents to the wound healing center today with complaint of left groin ulceration status post surgical excision of necrotizing fasciitis. He is a past medical history which is significant for that of type 2 diabetes mellitus, gout, diabetic neuropathy, schizophrenia, bilateral lymphedema, and schizophrenia. The patient states that what initially started as a pimple in his left groin progressed to necrotizing fasciitis and he had to have this surgically debrided in April 2017. He was admitted to [facility] for 2 weeks and then [facility] for 6 weeks afterwards. He states that the groin ulcer which extends to his left lower abdomen has been slowly improving and he has been doing daily Aquacel AG dressings with an ABD for the drainage. He does state that he has had 3 wound vacs in the past which were unable to be utilized due to the location of his wound. He denies any foul-smelling discharge or systemic signs of infection at this time. He is seen today as a courtesy visit for Gianni Neil CNP. He is tolerating dressings and denies any increase in drainage. He has been also using sweat beater to his groin area to prevent moisture. The patient otherwise denies any fever, chills, nausea, vomiting, shortness of breath, chest pain or pressure, palpitations, orthopnea, syncope or presyncopal episodes. Progress of Wound: Left groin wound is stable and left abdominal fold ulcer remains healed. Slight maceration seen. No signs of infection at this time. - Physical Exam Vital Signs Temp Pulse Resp BP 97.8 F 95 20 H 161/89 H 01/22/19 15:41 01/22/19 15:41 01/22/19 15:41 01/22/19 15:41 General: Alert, Oriented x3, Cooperative, No apparent distress HEENT: Atraumatic Oral: Moist Mucosa Lungs: Clear to auscultation Cardiovascular: Regular rate Abdomen: Soft, Non Tender, Obese Extremities: Edema - Generalized bilateral lower extremity edema Skin: Ulcer/ Wound - Ulceration to left groin with adherent slough, no signs of infection at this time Neurological: Neuro grossly intact Psych/Mental Status: Normal Affect, Appropriate, Alert and oriented to time, place, person, mood and affect Debridement Note Post-Debridement Measurements/Treatment WC - Nurse 2 - General Ulcer CM Notes Start: 01/22/19 15:41 Freq: Status: Active Protocol: Activity Type Activity Date Activity User E-Sign Co-Sign Detail Recorded Client Recorded Date Recorded By Document 01/22/19 16:16 AN [id number] 01/22/19 16:18 AN 01/22/19 16:16 Wound Center Nurse 2 #1- LEFT GROIN- POST OP -Time 16:16 -Correct Patient Yes -Correct Side, Site, Position Yes -Correct Procedure Yes -Procedure Performed Yes -Type of Procedure Debridement -Clinical Debridement Subcutaneous -Post Debridement Size (cm) - Length 1.5 -Post Debridement Size (cm) - Width 12 -Post Debridement Size (cm) - Depth 0.1 -Total Square Cm 18.0 -Wound/Ulcer Outcome Not Healed -Bleeding Controlled with Pressure -Offloading No -Type of Offloading Total Contact Cast (TCC) -Treatment Response Procedure Tolerated Well Pain Scale: 0-10 Numeric Is Patient Pain Free? Yes Wound debrided: Left groin nonhealing ulcer Laterality: Left Type of Debridement: Excisional debridement Anesthesia Used: 5% Lidocaine Gel Depth: in the subcutaneous layer Percentage of wound debrided: 100 Instrument Used: 3mm curette Tissue Removed: Slough and devitalized tissue Severity: Fat Layer Exposed Amount of bleeding with debridement: Mild Bleeding Controlled with: Pressure Patient tolerated procedure well Assessment/Plan Assessment: Nonhealing postsurgical wound left groin status post surgical excision of necrotizing fasciitis. Bilateral lower extremity edema. Morbid obesity. Type 2 diabetes mellitus Plan: The patient was seen and examined at the wound center today and was updated on the plan of care. A subcutaneous debridement was performed today. The patient tolerated the procedure well. The patients wound care will consist of: hydrofera blue/Aquacell extra change daily and as needed cover with gauze. Did discuss proper drying mechanisms after showering to prevent excess moisture. Baseline bloodwork reviewed which demonstrated a slightly low pre-albumin and patient was advised to use Glucerna or high-protein with meals. Repeat lab work WNL. Prealbumin WNL now. Previous records were requested for continuity of care. Patient educated on the importance of diet on wound healing and instructed to increase protein and vitamin C intake. Patient verbalized understanding. Plastic surgery consultation - no surgery indicated. Did discuss with patient the importance of blood sugar control in wound healing, recent A1C in 02/2018 was 6.1. Patient to follow-up in 1 week or sooner if needed. Patient is on a complex wound plan. This note was generated with [employer] dictation software. It may contain incorrect words, spelling, and punctuation that were not noted in checking the note before signing. Code Visit [id number]: [id number] Jessica subq tissue 20 sq cm/<
[2019-01-22 15:41] VITALS: BP 161/89; PULSE 95; RESP 20; TEMP 36.6
[2019-01-29 16:15] VITALS: BP 146/71; PULSE 99; RESP 18; TEMP 36.4
--- NOTE | 2019-01-29 21:06 | PCM.WC.PN ---
(1) Skin ulcer of abdominal wall with fat layer exposed Status: Chronic Code(s): L98.492 - Non-pressure chronic ulcer of skin of other sites with fat layer exposed Comment: left abdominal fold (2) Non-healing surgical wound of left groin Status: Chronic Qualifiers: Code(s): T81.89XA - Other complications of procedures, not elsewhere classified, initial encounter (3) Lymphedema of both lower extremities Status: Acute Code(s): I89.0 - Lymphedema, not elsewhere classified (4) History of necrotising fasciitis Status: Chronic Code(s): Z87.39 - Personal history of other diseases of the musculoskeletal system and connective tissue (5) Morbid obesity Status: Chronic Code(s): E66.01 - Morbid (severe) obesity due to excess calories (6) Type 2 diabetes mellitus Status: Chronic Qualifiers: Code(s): E11.9 - Type 2 diabetes mellitus without complications Type of Wound Date of Service: 01/29/19 Chief Complaint: Nonhealing wound status post surgical excision of necrotizing fasciitis left groin History of Wound: 46-year-old white male who presents to the wound healing center today with complaint of left groin ulceration status post surgical excision of necrotizing fasciitis. He is a past medical history which is significant for that of type 2 diabetes mellitus, gout, diabetic neuropathy, schizophrenia, bilateral lymphedema, and schizophrenia. The patient states that what initially started as a pimple in his left groin progressed to necrotizing fasciitis and he had to have this surgically debrided in April 2017. [facility] was [facility] and then [facility] for [facility] weeks afterwards. He states that the groin ulcer which extends to his left lower abdomen has been slowly improving and he has been doing daily Aquacel AG dressings with an ABD for the drainage. He does state that he has had 3 wound vacs in the past which were unable to be utilized due to the location of his wound. He denies any foul-smelling discharge or systemic signs of infection at this time. He is seen today as a courtesy visit for Gianni Neil CNP. He is tolerating dressings and denies any increase in drainage. He has been also using sweat beater to his groin area to prevent moisture. The patient otherwise denies any fever, chills, nausea, vomiting, shortness of breath, chest pain or pressure, palpitations, orthopnea, syncope or presyncopal episodes. Progress of Wound: Left groin wound is stable and left abdominal fold ulcer remains healed. Slight maceration seen. No signs of infection at this time. - Physical Exam Vital Signs Temp Pulse Resp BP 97.5 F L 99 18 146/71 H 01/29/19 16:15 01/29/19 16:15 01/29/19 16:15 01/29/19 16:15 General: Alert, Oriented x3, Cooperative, No apparent distress HEENT: Atraumatic Oral: Moist Mucosa Lungs: Clear to auscultation, Normal air movement Cardiovascular: Regular rate, Regular Rhythm Abdomen: Soft, Non Tender, Obese Skin: Ulcer/ Wound - see nursing documentation Neurological: Neuro grossly intact Psych/Mental Status: Normal Affect, Appropriate Debridement Note Post-Debridement Measurements/Treatment WC - Nurse 2 - General Ulcer CM Notes Start: 01/22/19 15:41 Freq: Status: Active Protocol: Activity Type Activity Date Activity User E-Sign Co-Sign Detail Recorded Client Recorded Date Recorded By Document 01/22/19 16:16 AN [id number] 01/22/19 16:18 AN Document 01/29/19 17:20 AN [id number] 01/29/19 17:21 AN 01/22/19 01/29/19 16:16 17:20 Wound Center Nurse 2 #1- LEFT GROIN- POST OP -Time 16:16 17:21 -Correct Patient Yes Yes -Correct Side, Site, Position Yes Yes -Correct Procedure Yes Yes -Procedure Performed Yes Yes -Type of Procedure Debridement Debridement -Clinical Debridement Subcutaneous Subcutaneous -Post Debridement Size (cm) - Length 1.5 19 -Post Debridement Size (cm) - Width 12 10.9 -Post Debridement Size (cm) - Depth 0.1 0.1 -Total Square Cm 18.0 207.1 -Wound/Ulcer Outcome Not Healed Not Healed -Ulcer Cleansing Rinsed/ Irrigated with Saline -Foul Odor after Cleansing No -Bioengineered Tissue No -Bleeding Controlled with Pressure Pressure -Offloading No No -Type of Offloading Total Contact Cast (TCC) -Treatment Response Procedure Procedure Tolerated Well Tolerated Well Pain Scale: 0-10 Numeric Is Patient Pain Free? Yes Yes Wound debrided: left groin ulcer Type of Debridement: Excisional debridement Anesthesia Used: 5% Lidocaine Gel Depth: in the subcutaneous layer Percentage of wound debrided: 100 Instrument Used: 7mm curette Tissue Removed: slough and devitalized tissue Severity: Fat Layer Exposed Amount of bleeding with debridement: Mild Bleeding Controlled with: Pressure Patient tolerated procedure well Assessment/Plan Assessment: Nonhealing postsurgical wound left groin status post surgical excision of necrotizing fasciitis. Bilateral lower extremity edema. Morbid obesity. Type 2 diabetes mellitus Plan: The patient was seen and examined at the wound center today and was updated on the plan of care. A subcutaneous debridement was performed today. The patient tolerated the procedure well. The patients wound care will consist of: hydrofera blue/Aquacell extra change daily and as needed cover with gauze. Did discuss proper drying mechanisms after showering to prevent excess moisture. Baseline bloodwork reviewed which demonstrated a slightly low pre-albumin and patient was advised to use Glucerna or high-protein with meals. Repeat lab work WNL. Prealbumin WNL now. Previous records were requested for continuity of care. Patient educated on the importance of diet on wound healing and instructed to increase protein and vitamin C intake. Patient verbalized understanding. Plastic surgery consultation - no surgery indicated. Did discuss with patient the importance of blood sugar control in wound healing, recent A1C in 02/2018 was 6.1. Patient to follow-up in 1 week or sooner if needed. Patient is on a complex wound plan. This note was generated with [employer] dictation software. It may contain incorrect words, spelling, and punctuation that were not noted in checking the note before signing. Code Visit [id number]: [id number] Jessica subq tissue 20 sq cm/<
[2019-02-05 15:28] VITALS: BP 144/78; PULSE 86; RESP 18; TEMP 36.1
--- NOTE | 2019-02-05 16:25 | PCM.WC.PN ---
(1) Skin ulcer of abdominal wall with fat layer exposed Status: Chronic Current Visit: No Code(s): L98.492 - Non-pressure chronic ulcer of skin of other sites with fat layer exposed Comment: left abdominal fold (2) Non-healing surgical wound of left groin Status: Chronic Current Visit: Yes Qualifiers: Code(s): T81.89XA - Other complications of procedures, not elsewhere classified, initial encounter (3) Lymphedema of both lower extremities Status: Acute Current Visit: No Code(s): I89.0 - Lymphedema, not elsewhere classified (4) History of necrotising fasciitis Status: Chronic Current Visit: No Code(s): Z87.39 - Personal history of other diseases of the musculoskeletal system and connective tissue (5) Morbid obesity Status: Chronic Current Visit: No Code(s): E66.01 - Morbid (severe) obesity due to excess calories (6) Type 2 diabetes mellitus Status: Chronic Current Visit: No Qualifiers: Code(s): E11.9 - Type 2 diabetes mellitus without complications Type of Wound Date of Service: 02/05/19 Chief Complaint: Nonhealing wound status post surgical excision of necrotizing fasciitis left groin History of Wound: 46-year-old white male who presents to the wound healing center today with complaint of left groin ulceration status post surgical excision of necrotizing fasciitis. He is a past medical history which is significant for that of type 2 diabetes mellitus, gout, diabetic neuropathy, schizophrenia, bilateral lymphedema, and schizophrenia. The patient states that what initially started as a pimple in his left groin progressed to necrotizing fasciitis and he had to have this surgically debrided in April 2017. He was admitted to [facility] [place] for [facility] weeks and then [facility] for 6 weeks afterwards. He states that the groin ulcer which extends to his left lower abdomen has been slowly improving and he has been doing daily Aquacel AG dressings with an ABD for the drainage. He does state that he has had 3 wound vacs in the past which were unable to be utilized due to the location of his wound. He denies any foul-smelling discharge or systemic signs of infection at this time. He is seen today as a courtesy visit for Gianni Neil CNP. He is tolerating dressings and denies any increase in drainage. He has been also using sweat beater to his groin area to prevent moisture. The patient otherwise denies any fever, chills, nausea, vomiting, shortness of breath, chest pain or pressure, palpitations, orthopnea, syncope or presyncopal episodes. Progress of Wound: Left groin wound is Improved in size and left abdominal fold ulcer remains healed. Slight maceration seen. No signs of infection at this time. - Physical Exam Vital Signs Temp Pulse Resp BP 97 F L 86 18 144/78 H 02/05/19 15:28 02/05/19 15:28 02/05/19 15:28 02/05/19 15:28 General: Alert, Oriented x3, Cooperative, No apparent distress HEENT: Atraumatic Oral: Moist Mucosa Lungs: Clear to auscultation, Normal air movement Cardiovascular: Regular rate Abdomen: Soft, Obese Skin: Ulcer/ Wound - See nursing documentation, slight maceration no signs of infection at this time Wound Measurements and Assessment WC - Nurse 1 - General Ulcer Measurement Start: 01/22/19 15:41 Freq: Status: Active Protocol: Activity Type Activity Date Activity User E-Sign Co-Sign Detail Recorded Client Recorded Date Recorded By Document 02/05/19 15:28 RB [id number] 02/05/19 15:30 RB 02/05/19 15:28 Wound Center Nurse 1 [Ulcer Assessment] #1- LEFT GROIN- POST OP -Combined with other wound No -Current Size (cm) - Length 11 -Current Size (cm) - Width 1.5 -Current Size (cm) - Depth 0.3 -Total Square Cm 16.5 -Tunneling No -Undermining/Tunneling No -Circular Undermining No -Exudate Amt Medium -Exudate Type Serosanguineous -Wound Margin Thickened & Rolled Under -Granulation Amt Large (67-100%) -Granulation Quality [place] -Slough/Fibrin Yes -Necrosis Amt Small (1-33%) -Necrotic Tissue Type Adherent Slough -Structure Exposed N/A -Texture (Inessa-wound Skin Appearance) Assessed -Moisture (Inessa-wound Skin Appearance Maceration ) -Color (Inessa-wound Skin Appearance) Assessed -Temperature (Inessa-wound Skin No Abnormality Appearance) (Pt Warm) -Tenderness on Palpation (Inessa-wound No Skin Appearance) -Ulcer Cleansing Wound Cleanser -Foul Odor after Cleansing No -Anesthetic Used 5% Lidocaine Gel WC - Nurse 2 - General Ulcer CM Notes Start: 01/22/19 15:41 Freq: Status: Active Protocol: Activity Type Activity Date Activity User E-Sign Co-Sign Detail Recorded Client Recorded Date Recorded By Document 02/05/19 16:02 AN [id number] 02/05/19 16:04 AN 02/05/19 16:02 Wound Center Nurse 2 [Procedure/Treatment] -Time 16:04 -Correct Patient Yes -Correct Side, Site, Position Yes -Correct Procedure Yes -Procedure Performed Yes -Type of Procedure Debridement -Clinical Debridement Subcutaneous -Post Debridement Size (cm) - Length 1.8 -Post Debridement Size (cm) - Width 11 -Post Debridement Size (cm) - Depth 0.1 -Total Square Cm 19.8 -Wound/Ulcer Outcome Not Healed -Ulcer Cleansing Rinsed/ Irrigated with Saline -Foul Odor after Cleansing No -Bioengineered Tissue No -Bleeding Controlled with Pressure -Treatment Response Procedure Tolerated Well [See Physician Procedure note for Specifics] Pain Scale: 0-10 Numeric [Pain] -Is Patient Pain Free? Yes Neurological: Neuro grossly intact Psych/Mental Status: Normal Affect, Appropriate, Alert and oriented to time, place, person, mood and affect Debridement Note Post-Debridement Measurements/Treatment WC - Nurse 2 - General Ulcer CM Notes Start: 01/22/19 15:41 Freq: Status: Active Protocol: Activity Type Activity Date Activity User E-Sign Co-Sign Detail Recorded Client Recorded Date Recorded By Document 01/22/19 16:16 AN [id number] 01/22/19 16:18 AN Document 01/29/19 17:20 AN [id number] 01/29/19 17:21 AN Document 02/05/19 16:02 AN [id number] 02/05/19 16:04 AN 01/22/19 01/29/19 02/05/19 16:16 17:20 16:02 Wound Center Nurse 2 #1- LEFT GROIN- POST OP -Time 16:16 17:21 16:04 -Correct Patient Yes Yes Yes -Correct Side, Site, Position Yes Yes Yes -Correct Procedure Yes Yes Yes -Procedure Performed Yes Yes Yes -Type of Procedure Debridement Debridement Debridement -Clinical Debridement Subcutaneous Subcutaneous Subcutaneous -Post Debridement Size (cm) - Length 1.5 19 1.8 -Post Debridement Size (cm) - Width 12 10.9 11 -Post Debridement Size (cm) - Depth 0.1 0.1 0.1 -Total Square Cm 18.0 207.1 19.8 -Wound/Ulcer Outcome Not Healed Not Healed Not Healed -Ulcer Cleansing Rinsed/ Rinsed/ Irrigated with Irrigated with Saline Saline -Foul Odor after Cleansing No No -Bioengineered Tissue No No -Bleeding Controlled with Pressure Pressure Pressure -Offloading No No -Type of Offloading Total Contact Cast (TCC) -Treatment Response Procedure Procedure Procedure Tolerated Well Tolerated Well Tolerated Well Pain Scale: 0-10 Numeric Is Patient Pain Free? Yes Yes Yes Wound debrided: Left groin nonhealing postsurgical ulcer Laterality: Left Type of Debridement: Excisional debridement Anesthesia Used: 5% Lidocaine Gel Depth: in the subcutaneous layer Percentage of wound debrided: 100 Instrument Used: 5mm curette Tissue Removed: Slough and devitalized tissue Severity: Fat Layer Exposed Amount of bleeding with debridement: Mild Bleeding Controlled with: Pressure Patient tolerated procedure well Assessment/Plan Active Problems Non-healing surgical wound of left groin (Chronic) Assessment: Nonhealing postsurgical wound left groin status post surgical excision of necrotizing fasciitis. Bilateral lower extremity edema. Morbid obesity. Type 2 diabetes mellitus Plan: The patient was seen and examined at the wound center today and was updated on the plan of care. A subcutaneous debridement was performed today. The patient tolerated the procedure well. The patients wound care will consist of: hydrofera blue/Aquacell extra change daily and as needed cover with gauze. Did discuss proper drying mechanisms after showering to prevent excess moisture. Baseline bloodwork reviewed which demonstrated a slightly low pre-albumin and patient was advised to use Glucerna or high-protein with meals. Repeat lab work WNL. Prealbumin WNL now. Previous records were requested for continuity of care. Patient educated on the importance of diet on wound healing and instructed to increase protein and vitamin C intake. Patient verbalized understanding. Plastic surgery consultation - no surgery indicated. Did discuss with patient the importance of blood sugar control in wound healing, recent A1C in 02/2018 was 6.1. Patient to follow-up in 2 week or sooner if needed. Patient is on a complex wound plan. This note was generated with [employer] software. It may contain incorrect words, spelling, and punctuation that were not noted in checking the note before signing. Code Visit [id number]: [id number] Jessica subq tissue 20 sq cm/<
[2019-02-19 15:30] VITALS: BP 142/67; PULSE 74; RESP 20; TEMP 35.2
--- NOTE | 2019-02-19 16:14 | PN.PCM_ITS ---
(1) Skin ulcer of abdominal wall with fat layer exposed Status: Chronic Current Visit: No Code(s): L98.492 - Non-pressure chronic ulcer of skin of other sites with fat layer exposed Comment: left abdominal fold (2) Non-healing surgical wound of left groin Status: Chronic Current Visit: Yes Qualifiers: Code(s): T81.89XA - Other complications of procedures, not elsewhere classified, initial encounter (3) Lymphedema of both lower extremities Status: Acute Current Visit: No Code(s): I89.0 - Lymphedema, not elsewhere classified (4) History of necrotising fasciitis Status: Chronic Current Visit: No Code(s): Z87.39 - Personal history of other diseases of the musculoskeletal system and connective tissue (5) Morbid obesity Status: Chronic Current Visit: No Code(s): E66.01 - Morbid (severe) obesity due to excess calories (6) Type 2 diabetes mellitus Status: Chronic Current Visit: No Qualifiers: Code(s): E11.9 - Type 2 diabetes mellitus without complications Type of Wound Date of Service: 02/19/19 Chief Complaint: Nonhealing wound status post surgical excision of necrotizing fasciitis left groin History of Wound: 46-year-old white male who presents to the wound healing center today with complaint of left groin ulceration status post surgical excision of necrotizing fasciitis. He is a past medical history which is significant for that of type 2 diabetes mellitus, gout, diabetic neuropathy, schizophrenia, bilateral lymphedema, and schizophrenia. The patient states that what initially started as a pimple in his left groin progressed to necrotizing fasciitis and he had to have this surgically debrided in April 2017. He was admitted to [facility] for 2 weeks and then [facility] for 6 weeks afterwards. He states that the groin ulcer which extends to his left lower abdomen has been slowly improving and he has been doing daily Aquacel AG dressings with an ABD for the drainage. He does state that he has had 3 wound vacs in the past which were unable to be utilized due to the location of his wound. He denies any foul-smelling discharge or systemic signs of infection at this time. He is seen today as a courtesy visit for Gianni Neil CNP. He is tolerating dressings and denies any increase in drainage. He has been also using sweat beater to his groin area to prevent moisture. The patient otherwise denies any fever, chills, nausea, vomiting, shortness of breath, chest pain or pressure, palpitations, orthopnea, syncope or presyncopal episodes. Progress of Wound: Left groin wound is stable in size and left abdominal fold ulcer remains healed. Slight maceration seen. No signs of infection at this time. - Physical Exam Vital Signs Temp Pulse Resp BP 95.3 F L 74 20 H 142/67 H 02/19/19 15:30 02/19/19 15:30 02/19/19 15:30 02/19/19 15:30 General: Alert, Oriented x3, Cooperative, No apparent distress HEENT: Atraumatic Oral: Moist Mucosa Lungs: Clear to auscultation, Normal air movement Cardiovascular: Regular rate, Regular Rhythm Abdomen: Soft Extremities: No clubbing, No cyanosis, No edema Skin: Ulcer/ Wound - see nursing documentation, adherant slough and slight maceration, no signs of infection at this time Wound Measurements and Assessment WC - Nurse 1 - General Ulcer Measurement Start: 01/22/19 15:41 Freq: Status: Active Protocol: Activity Type Activity Date Activity User E-Sign Co-Sign Detail Recorded Client Recorded Date Recorded By Document 02/19/19 15:30 MW [id number] 02/19/19 15:36 MW 02/19/19 15:30 Wound Center Nurse 1 [Ulcer Assessment] #1- LEFT GROIN- POST OP -Combined with other wound No -Current Size (cm) - Length 0.7 -Current Size (cm) - Width 10.5 -Current Size (cm) - Depth 0.3 -Total Square Cm 7.35 -Photo Taken No -Epithelialization Medium 34-66% -Tunneling No -Undermining/Tunneling No -Circular Undermining No -Exudate Amt Large -Exudate Type Serosanguineous -Wound Margin Distinct, Outline Attached -Granulation Amt Large (67-100%) -Granulation Quality Red -Slough/Fibrin Yes -Necrosis Amt Small (1-33%) -Necrotic Tissue Type Adherent Slough -Structure Exposed N/A -Texture (Inessa-wound Skin Appearance) Assessed, Scarring -Moisture (Inessa-wound Skin Appearance Assessed, ) Maceration -Color (Inessa-wound Skin Appearance) No Abnormality, Assessed -Temperature (Inessa-wound Skin No Abnormality Appearance) (Pt Warm) -Tenderness on Palpation (Inessa-wound No Skin Appearance) -Ulcer Cleansing Rinsed/ Irrigated with Saline -Foul Odor after Cleansing No -Anesthetic Used 5% Lidocaine Gel [Edema Assessment] -Lower Limb Edema Present No WC - Nurse 2 - General Ulcer CM Notes Start: 01/22/19 15:41 Freq: Status: Active Protocol: Activity Type Activity Date Activity User E-Sign Co-Sign Detail Recorded Client Recorded Date Recorded By Document 02/19/19 15:48 AN [id number] 02/19/19 15:49 AN 02/19/19 15:48 Wound Center Nurse 2 [Procedure/Treatment] #1- LEFT GROIN- POST OP -Time 15:49 -Correct Patient Yes -Correct Side, Site, Position Yes -Correct Procedure Yes -Procedure Performed Yes -Type of Procedure Debridement -Clinical Debridement Subcutaneous -Post Debridement Size (cm) - Length 1.7 -Post Debridement Size (cm) - Width 10.3 -Post Debridement Size (cm) - Depth 0.1 -Total Square Cm 17.51 -Wound/Ulcer Outcome Not Healed -Ulcer Cleansing Rinsed/ Irrigated with Saline -Foul Odor after Cleansing No -Bioengineered Tissue No -Offloading No -Treatment Response Procedure Tolerated Well [See Physician Procedure note for Specifics] Pain Scale: 0-10 Numeric [Pain] -Is Patient Pain Free? Yes Neurological: Neuro grossly intact Psych/Mental Status: Normal Affect, Appropriate, Alert and oriented to time, place, person, mood and affect Debridement Note Post-Debridement Measurements/Treatment WC - Nurse 2 - General Ulcer CM Notes Start: 01/22/19 15:41 Freq: Status: Active Protocol: Activity Type Activity Date Activity User E-Sign Co-Sign Detail Recorded Client Recorded Date Recorded By Document 01/22/19 16:16 AN [id number] 01/22/19 16:18 AN Document 01/29/19 17:20 AN [id number] 01/29/19 17:21 AN Document 02/05/19 16:02 AN [id number] 02/05/19 16:04 AN Document 02/19/19 15:48 AN [id number] 02/19/19 15:49 AN 01/22/19 01/29/19 02/05/19 16:16 17:20 16:02 Wound Center Nurse 2 #1- LEFT GROIN- POST OP -Time 16:16 17:21 16:04 -Correct Patient Yes Yes Yes -Correct Side, Site, Position Yes Yes Yes -Correct Procedure Yes Yes Yes -Procedure Performed Yes Yes Yes -Type of Procedure Debridement Debridement Debridement -Clinical Debridement Subcutaneous Subcutaneous Subcutaneous -Post Debridement Size (cm) - Length 1.5 19 1.8 -Post Debridement Size (cm) - Width 12 10.9 11 -Post Debridement Size (cm) - Depth 0.1 0.1 0.1 -Total Square Cm 18.0 207.1 19.8 -Wound/Ulcer Outcome Not Healed Not Healed Not Healed -Ulcer Cleansing Rinsed/ Rinsed/ Irrigated with Irrigated with Saline Saline -Foul Odor after Cleansing No No -Bioengineered Tissue No No -Bleeding Controlled with Pressure Pressure Pressure -Offloading No No -Type of Offloading Total Contact Cast (TCC) -Treatment Response Procedure Procedure Procedure Tolerated Well Tolerated Well Tolerated Well Pain Scale: 0-10 Numeric Is Patient Pain Free? Yes Yes Yes 02/19/19 15:48 Wound Center Nurse 2 #1- LEFT GROIN- POST OP -Time 15:49 -Correct Patient Yes -Correct Side, Site, Position Yes -Correct Procedure Yes -Procedure Performed Yes -Type of Procedure Debridement -Clinical Debridement Subcutaneous -Post Debridement Size (cm) - Length 1.7 -Post Debridement Size (cm) - Width 10.3 -Post Debridement Size (cm) - Depth 0.1 -Total Square Cm 17.51 -Wound/Ulcer Outcome Not Healed -Ulcer Cleansing Rinsed/ Irrigated with Saline -Foul Odor after Cleansing No -Bioengineered Tissue No -Bleeding Controlled with -Offloading No -Type of Offloading -Treatment Response Procedure Tolerated Well Pain Scale: 0-10 Numeric Is Patient Pain Free? Yes Wound debrided: left groin ulcer Laterality: Left Type of Debridement: Excisional debridement Anesthesia Used: 5% Lidocaine Gel Depth: in the subcutaneous layer Percentage of wound debrided: 100 Instrument Used: 5mm curette Tissue Removed: slough and devitalized tissue Severity: Fat Layer Exposed Amount of bleeding with debridement: Mild Bleeding Controlled with: Pressure Patient tolerated procedure well Assessment/Plan Active Problems Non-healing surgical wound of left groin (Chronic) Assessment: Nonhealing postsurgical wound left groin status post surgical excision of necrotizing fasciitis. Bilateral lower extremity edema. Morbid obesity. Type 2 diabetes mellitus Plan: The patient was seen and examined at the wound center today and was updated on the plan of care. A subcutaneous debridement was performed today. The patient tolerated the procedure well. The patients wound care will consist of: hydrofera blue/meglisorb change daily and as needed cover with gauze. Did discuss proper drying mechanisms after showering to prevent excess moisture. Baseline bloodwork reviewed which demonstrated a slightly low pre-albumin and patient was advised to use Glucerna or high-protein with meals. Repeat lab work WNL. Prealbumin WNL now. Previous records were requested for continuity of care. Patient educated on the importance of diet on wound healing and instructed to increase protein and vitamin C intake. Patient verbalized understanding. Plastic surgery consultation - no surgery indicated. Did discuss with patient the importance of blood sugar control in wound healing, recent A1C in 02/2018 was 6.1. Patient to follow-up in 2 week or sooner if needed. Patient is on a complex wound plan. This note was generated with [employer] dictation software. It may contain incorrect words, spelling, and punctuation that were not noted in checking the note before signing. Code Visit 111xxx-113xx: [id number] Jessica subq tissue 20 sq cm/<
== END 2019-02-19 23:59 ==
LOC: WC 15:30
PROVIDERS: Family Provider Family Medicine; PCP Family Medicine; Visit Provider Nurse Practitioner Family
DX: T81.89XA Other complications of procedures, not elsewhere classified, initial encounter (principal); Y83.8 Other surgical procedures as the cause of abnormal reaction of the patient, or of later complication, without mention of misadventure at the time of the procedure; E66.01 Morbid (severe) obesity due to excess calories; E11.622 Type 2 diabetes mellitus with other skin ulcer; E11.40 Type 2 diabetes mellitus with diabetic neuropathy, unspecified; L98.492 Non-pressure chronic ulcer of skin of other sites with fat layer exposed; I89.0 Lymphedema, not elsewhere classified; Z87.39 Personal history of other diseases of the musculoskeletal system and connective tissue; Z68.43 Body mass index [BMI] 50.0-59.9, adult; Z71.3 Dietary counseling and surveillance
CPT/HCPCS: 11042

== ENCOUNTER 2019-03-18 16:00 | Outpatient (RCR) | payer MEDICARE, MEDICAID, SELFPAY ==
[2019-02-20 00:34] VITALS: BP 142/67; PULSE 74; RESP 20; TEMP 35.2
--- NOTE | 2019-02-26 12:57 | PCM.WC.PN ---
(1) Lymphedema of both lower extremities Status: Acute Code(s): I89.0 - Lymphedema, not elsewhere classified (2) History of necrotising fasciitis Status: Chronic Code(s): Z87.39 - Personal history of other diseases of the musculoskeletal system and connective tissue (3) Non-healing surgical wound of left groin Status: Chronic Qualifiers: Code(s): T81.89XA - Other complications of procedures, not elsewhere classified, initial encounter (4) Type 2 diabetes mellitus Status: Chronic Qualifiers: Code(s): E11.9 - Type 2 diabetes mellitus without complications Type of Wound Date of Service: 02/26/19 Chief Complaint: Nonhealing wound status post surgical excision of necrotizing fasciitis left groin History of Wound: 46-year-old white male who presents to the wound healing center today with complaint of left groin ulceration status post surgical excision of necrotizing fasciitis. He is a past medical history which is significant for that of type 2 diabetes mellitus, gout, diabetic neuropathy, schizophrenia, bilateral lymphedema, and schizophrenia. The patient states that what initially started as a pimple in his left groin progressed to necrotizing fasciitis and he had to have this surgically debrided in April 2017. He was admitted to [facility] for 2 weeks and then [facility] for 6 weeks afterwards. He states that the groin ulcer which extends to his left lower abdomen has been slowly improving and he has been doing daily Aquacel AG dressings with an ABD for the drainage. He does state that he has had 3 wound vacs in the past which were unable to be utilized due to the location of his wound. He denies any foul-smelling discharge or systemic signs of infection at this time. He is seen today as a courtesy visit for Gianni Neil CNP. He is tolerating dressings and denies any increase in drainage. He has been also using sweat beater to his groin area to prevent moisture. The patient otherwise denies any fever, chills, nausea, vomiting, shortness of breath, chest pain or pressure, palpitations, orthopnea, syncope or presyncopal episodes. Progress of Wound: Left groin wound is stable in size and left abdominal fold ulcer remains healed. Slight maceration seen. No signs of infection at this time. - Physical Exam Vital Signs Temp Pulse Resp BP 95.3 F L 74 18 142/67 H 02/20/19 00:34 02/20/19 00:34 02/26/19 16:02 02/20/19 00:34 General: Alert, Oriented x3, Cooperative, No apparent distress HEENT: Atraumatic, PERRLA Oral: Moist Mucosa Neck: Supple Lungs: Clear to auscultation, Normal air movement Cardiovascular: Regular rate, Regular Rhythm Abdomen: Soft, Non Tender Extremities: No clubbing, No cyanosis, Edema - generalized BLLE edema Skin: Ulcer/ Wound - see nursing documentation, adherant slough present no signs of infection Neurological: Neuro grossly intact Psych/Mental Status: Normal Affect, Appropriate, Alert and oriented to time, place, person, mood and affect Debridement Note Post-Debridement Measurements/Treatment WC - Nurse 2 - General Ulcer CM Notes Start: 02/26/19 16:00 Freq: Status: Active Protocol: Activity Type Activity Date Activity User E-Sign Co-Sign Detail Recorded Client Recorded Date Recorded By Document 02/26/19 16:01 [id number] 02/26/19 16:02 MW 02/26/19 16:01 Wound Center Nurse 2 #1- LEFT GROIN- POST OP -Time 16:01 -Correct Patient Yes -Correct Side, Site, Position Yes -Correct Procedure Yes -Procedure Performed Yes -Type of Procedure Debridement -Clinical Debridement Subcutaneous -Post Debridement Size (cm) - Length 2.0 -Post Debridement Size (cm) - Width 9.0 -Post Debridement Size (cm) - Depth 0.1 -Total Square Cm 18.00 -Wound/Ulcer Outcome Not Healed -Ulcer Cleansing Rinsed/ Irrigated with Saline -Foul Odor after Cleansing No -Bioengineered Tissue No -Bleeding Controlled with Pressure -Offloading No -Treatment Response Procedure Tolerated Well Pain Scale: 0-10 Numeric Is Patient Pain Free? Yes Wound debrided: left groin ulcer nonhealing s/p nec fac Laterality: Left Type of Debridement: Excisional debridement Anesthesia Used: 5% Lidocaine Gel Depth: in the subcutaneous layer Percentage of wound debrided: 100 Instrument Used: 7mm curette Tissue Removed: slough and devitalized tissue Severity: Fat Layer Exposed Amount of bleeding with debridement: Mild Bleeding Controlled with: Pressure Patient tolerated procedure well Assessment/Plan Assessment: Nonhealing postsurgical wound left groin status post surgical excision of necrotizing fasciitis. Bilateral lower extremity edema. Morbid obesity. Type 2 diabetes mellitus Plan: The patient was seen and examined at the wound center today and was updated on the plan of care. A subcutaneous debridement was performed today. The patient tolerated the procedure well. The patients wound care will consist of: hydrofera blue/meglisorb change daily and as needed cover with gauze. Did discuss proper drying mechanisms after showering to prevent excess moisture. Baseline bloodwork reviewed which demonstrated a slightly low pre-albumin and patient was advised to use Glucerna or high-protein with meals. Repeat lab work WNL. Prealbumin WNL now. Previous records were requested for continuity of care. Patient educated on the importance of diet on wound healing and instructed to increase protein and vitamin C intake. Patient verbalized understanding. Plastic surgery consultation - no surgery indicated. Did discuss with patient the importance of blood sugar control in wound healing, recent A1C in 02/2018 was 6.1. Patient to follow-up in 2 week or sooner if needed. Patient is on a complex wound plan. This note was generated with [employer] dictation software. It may contain incorrect words, spelling, and punctuation that were not noted in checking the note before signing. Code Visit 111xxx-113xx: [id number] Jessica subq tissue 20 sq cm/<
[2019-02-26 16:02] VITALS: RESP 18
[2019-03-05 16:01] VITALS: BP 133/73; PULSE 104; RESP 18; TEMP 35.3
--- NOTE | 2019-03-05 17:15 | PCM.WC.PN ---
(1) Lymphedema of both lower extremities Status: Acute Code(s): I89.0 - Lymphedema, not elsewhere classified (2) History of necrotising fasciitis Status: Chronic Code(s): Z87.39 - Personal history of other diseases of the musculoskeletal system and connective tissue (3) Non-healing surgical wound of left groin Status: Chronic Qualifiers: Code(s): T81.89XA - Other complications of procedures, not elsewhere classified, initial encounter (4) Type 2 diabetes mellitus Status: Chronic Qualifiers: Code(s): E11.9 - Type 2 diabetes mellitus without complications Type of Wound Date of Service: 03/05/19 Chief Complaint: Nonhealing wound status post surgical excision of necrotizing fasciitis left groin History of Wound: 46-year-old white male who presents to the wound healing center today with complaint of left groin ulceration status post surgical excision of necrotizing fasciitis. He is a past medical history which is significant for that of type 2 diabetes mellitus, gout, diabetic neuropathy, schizophrenia, bilateral lymphedema, and schizophrenia. The patient states that what initially started as a pimple in his left groin progressed to necrotizing fasciitis and he had to have this surgically debrided in April 2017. He was admitted to [facility] for 2 weeks and then [facility] for 6 weeks afterwards. He states that the groin ulcer which extends to his left lower abdomen has been slowly improving and he has been doing daily Aquacel AG dressings with an ABD for the drainage. He does state that he has had 3 wound vacs in the past which were unable to be utilized due to the location of his wound. He denies any foul-smelling discharge or systemic signs of infection at this time. He is seen today as a courtesy visit for Gianni Neil CNP. He is tolerating dressings and denies any increase in drainage. He has been also using sweat beater to his groin area to prevent moisture. The patient otherwise denies any fever, chills, nausea, vomiting, shortness of breath, chest pain or pressure, palpitations, orthopnea, syncope or presyncopal episodes. Progress of Wound: Left groin wound is stable in size and left abdominal fold ulcer remains healed. Slight maceration seen. No signs of infection at this time. - Physical Exam Vital Signs Temp Pulse Resp BP 95.5 F L 104 H 18 133/73 H 03/05/19 16:01 03/05/19 16:01 03/05/19 16:01 03/05/19 16:01 General: Alert, Oriented x3, Cooperative, No apparent distress HEENT: Atraumatic Oral: Moist Mucosa Lungs: Clear to auscultation, Normal air movement Cardiovascular: Regular rate Abdomen: Soft, Non Tender, Obese Skin: Ulcer/ Wound - Ulceration to left groin with adherent slough, no signs of infection at this time Neurological: Neuro grossly intact Psych/Mental Status: Normal Affect, Appropriate, Alert and oriented to time, place, person, mood and affect Debridement Note Post-Debridement Measurements/Treatment WC - Nurse 2 - General Ulcer CM Notes Start: 02/26/19 16:00 Freq: Status: Active Protocol: Activity Type Activity Date Activity User E-Sign Co-Sign Detail Recorded Client Recorded Date Recorded By Document 02/26/19 16:01 MW [id number] 02/26/19 16:02 MW 02/26/19 16:01 Wound Center Nurse 2 #1- LEFT GROIN- POST OP -Time 16:01 -Correct Patient Yes -Correct Side, Site, Position Yes -Correct Procedure Yes -Procedure Performed Yes -Type of Procedure Debridement -Clinical Debridement Subcutaneous -Post Debridement Size (cm) - Length 2.0 -Post Debridement Size (cm) - Width 9.0 -Post Debridement Size (cm) - Depth 0.1 -Total Square Cm 18.00 -Wound/Ulcer Outcome Not Healed -Ulcer Cleansing Rinsed/ Irrigated with Saline -Foul Odor after Cleansing No -Bioengineered Tissue No -Bleeding Controlled with Pressure -Offloading No -Treatment Response Procedure Tolerated Well Pain Scale: 0-10 Numeric Is Patient Pain Free? Yes Wound debrided: Left groin ulceration Laterality: Left Type of Debridement: Excisional debridement Anesthesia Used: 5% Lidocaine Gel Depth: in the subcutaneous layer Percentage of wound debrided: 100 Instrument Used: 7mm curette Tissue Removed: Slough and devitalized tissue Severity: Fat Layer Exposed Amount of bleeding with debridement: Mild Bleeding Controlled with: Pressure Patient tolerated procedure well Assessment/Plan Assessment: Nonhealing postsurgical wound left groin status post surgical excision of necrotizing fasciitis. Bilateral lower extremity edema. Morbid obesity. Type 2 diabetes mellitus Plan: The patient was seen and examined at the wound center today and was updated on the plan of care. A subcutaneous debridement was performed today. The patient tolerated the procedure well. The patients wound care will consist of: hydrofera blue/meglisorb change daily and as needed cover with gauze. Did discuss proper drying mechanisms after showering to prevent excess moisture. Baseline bloodwork reviewed which demonstrated a slightly low pre-albumin and patient was advised to use Glucerna or high-protein with meals. Repeat lab work WNL. Prealbumin WNL now. Previous records were requested for continuity of care. Patient educated on the importance of diet on wound healing and instructed to increase protein and vitamin C intake. Patient verbalized understanding. Plastic surgery consultation - no surgery indicated. Did discuss with patient the importance of blood sugar control in wound healing, recent A1C in 02/2018 was 6.1. Patient to follow-up in 2 week or sooner if needed. Patient is on a complex wound plan. This note was generated with [employer] dictation software. It may contain incorrect words, spelling, and punctuation that were not noted in checking the note before signing. Code Visit 111xxx-113xx: [id number] Jessica subq tissue 20 sq cm/<
[2019-03-12 15:53] VITALS: BP 163/93; PULSE 86; RESP 16; TEMP 35.7
--- NOTE | 2019-03-12 16:38 | PN.PCM_ITS ---
(1) Lymphedema of both lower extremities Status: Acute Code(s): I89.0 - Lymphedema, not elsewhere classified (2) History of necrotising fasciitis Status: Chronic Code(s): Z87.39 - Personal history of other diseases of the musculoskeletal system and connective tissue (3) Non-healing surgical wound of left groin Status: Chronic Qualifiers: Code(s): T81.89XA - Other complications of procedures, not elsewhere classified, initial encounter (4) Type 2 diabetes mellitus Status: Chronic Qualifiers: Code(s): E11.9 - Type 2 diabetes mellitus without complications (5) Skin ulcer of abdominal wall with fat layer exposed Status: Chronic Code(s): L98.492 - Non-pressure chronic ulcer of skin of other sites with fat layer exposed Comment: left abdominal fold and left medial groin cluster ulcers Type of Wound Date of Service: 03/12/19 Chief Complaint: Nonhealing wound status post surgical excision of necrotizing fasciitis left groin History of Wound: 46-year-old white male who presents to the wound healing center today with complaint of left groin ulceration status post surgical excision of necrotizing fasciitis. He is a past medical history which is significant for that of type 2 diabetes mellitus, gout, diabetic neuropathy, schizophrenia, bilateral lymphedema, and schizophrenia. The patient states that what initially started as a pimple in his left groin progressed to necrotizing fasciitis and he had to have this surgically debrided in April 2017. He was admitted to [facility] for 2 weeks and then [facility] for 6 weeks afterwards. He states that the groin ulcer which extends to his left lower abdomen has been slowly improving and he has been doing daily Aquacel AG dressings with an ABD for the drainage. He does state that he has had 3 wound vacs in the past which were unable to be utilized due to the location of his wound. He denies any foul-smelling discharge or systemic signs of infection at this time. He is seen today as a courtesy visit for Gianni Neil CNP. He is tolerating dressings and denies any increase in drainage. He has been also using sweat beater to his groin area to prevent moisture. The patient otherwise denies any fever, chills, nausea, vomiting, shortness of breath, chest pain or pressure, palpitations, orthopnea, syncope or presyncopal episodes. Progress of Wound: Left groin wound is stable in size and Does have a new left lateral abdominal fold ulcer and left medial groin cluster ulceration. States that these open up in the last week. Slight maceration seen. No signs of infection at this time.Given his delayed wound healing, will apply for the use of a command skin substitute. - Physical Exam Vital Signs Temp Pulse Resp BP 96.2 F L 86 16 163/93 H 03/12/19 15:53 03/12/19 15:53 03/12/19 15:53 03/12/19 15:53 General: Alert, Oriented x3, Cooperative, No apparent distress HEENT: Atraumatic, PERRLA Oral: Moist Mucosa Lungs: Clear to auscultation, Normal air movement Cardiovascular: Regular rate, Regular Rhythm Abdomen: Soft, Non Tender, Obese Extremities: No clubbing, No cyanosis Skin: Ulcer/ Wound - Ulcerations to left groin and left abdominal folds with adherent slough and devitalized tissue, no signs of obvious infection at this time Musculoskeletal: No Tenderness to Palpation of Joints or Extremities Neurological: Neuro grossly intact Psych/Mental Status: Normal Affect, Appropriate, Alert and oriented to time, place, person, mood and affect Debridement Note Post-Debridement Measurements/Treatment WC - Nurse 2 - General Ulcer CM Notes Start: 02/26/19 16:00 Freq: Status: Active Protocol: Activity Type Activity Date Activity User E-Sign Co-Sign Detail Recorded Client Recorded Date Recorded By Document 02/26/19 16:01 MW [id number] 02/26/19 16:02 MW Document 03/12/19 16:26 MW [id number] 03/12/19 16:35 MW 02/26/19 03/12/19 16:01 16:26 Wound Center Nurse 2 #4 LEFT MEDIAL GROIN CLUSTER -Time 16:32 -Correct Patient Yes -Correct Side, Site, Position Yes -Correct Procedure Yes -Procedure Performed Yes -Type of Procedure Debridement -Clinical Debridement Subcutaneous -Post Debridement Size (cm) - Length 4.5 -Post Debridement Size (cm) - Width 0.8 -Post Debridement Size (cm) - Depth 0.1 -Total Square Cm 3.60 -Wound/Ulcer Outcome Not Healed -Ulcer Cleansing Rinsed/ Irrigated with Saline -Foul Odor after Cleansing No -Bioengineered Tissue No -Bleeding Controlled with Pressure -Offloading No -Treatment Response Procedure Tolerated Well #3- L ABD FOLD -Time 16:26 -Correct Patient Yes -Correct Side, Site, Position Yes -Correct Procedure Yes -Procedure Performed Yes -Type of Procedure Debridement -Clinical Debridement Subcutaneous -Post Debridement Size (cm) - Length 1.0 -Post Debridement Size (cm) - Width 2.0 -Post Debridement Size (cm) - Depth 0.1 -Total Square Cm 2.00 -Wound/Ulcer Outcome Not Healed -Ulcer Cleansing Rinsed/ Irrigated with Saline -Foul Odor after Cleansing No -Bioengineered Tissue No -Bleeding Controlled with Pressure -Offloading No -Treatment Response Procedure Tolerated Well #1- LEFT GROIN- POST OP -Time 16:01 16:27 -Correct Patient Yes Yes -Correct Side, Site, Position Yes Yes -Correct Procedure Yes Yes -Procedure Performed Yes Yes -Type of Procedure Debridement Debridement -Clinical Debridement Subcutaneous Subcutaneous -Post Debridement Size (cm) - Length 2.0 1.5 -Post Debridement Size (cm) - Width 9.0 10.8 -Post Debridement Size (cm) - Depth 0.1 0.2 -Total Square Cm 18.00 16.20 -Wound/Ulcer Outcome Not Healed Not Healed -Ulcer Cleansing Rinsed/ Rinsed/ Irrigated with Irrigated with Saline Saline -Foul Odor after Cleansing No No -Bioengineered Tissue No No -Bleeding Controlled with Pressure Pressure -Offloading No No -Treatment Response Procedure Procedure Tolerated Well Tolerated Well Pain Scale: 0-10 Numeric Is Patient Pain Free? Yes Yes Wound debrided: Left groin, left medial groin, left lateral abdomen ulcers Laterality: Left Type of Debridement: Excisional debridement Anesthesia Used: 5% Lidocaine Gel Depth: in the subcutaneous layer Percentage of wound debrided: 100 Instrument Used: 7mm curette Tissue Removed: Slough and devitalized tissue Severity: Fat Layer Exposed Amount of bleeding with debridement: Mild Bleeding Controlled with: Pressure Patient tolerated procedure well Assessment/Plan Assessment: Nonhealing postsurgical wound left groin status post surgical excision of necrotizing fasciitis. Bilateral lower extremity edema. Morbid obesity. Type 2 diabetes mellitus Plan: The patient was seen and examined at the wound center today and was updated on the plan of care. A subcutaneous debridement was performed today. The patient tolerated the procedure well. The patients wound care will consist of: hydrofera blue/meglisorb change daily and as needed cover with gauze. Did discuss proper drying mechanisms after showering to prevent excess moisture. Baseline bloodwork reviewed which demonstrated a slightly low pre-albumin and patient was advised to use Glucerna or high-protein with meals. Repeat lab work WNL. Prealbumin WNL now. Previous records were requested for continuity of care. Patient educated on the importance of diet on wound healing and instructed to increase protein and vitamin C intake. Patient verbalized understanding. Plastic surgery consultation - no surgery indicated. Did discuss with patient the importance of blood sugar control in wound healing, recent A1C in 02/2018 w as 6.1. Patient to follow-up in 2 week or sooner if needed. Patient is on a complex wound plan. This note was generated with [employer] dictation software. It may contain incorrect words, spelling, and punctuation that were not noted in checking the note before signing. Code Visit 111xxx-113xx: 80124 Jessica subq tissue 20 sq cm/<
[2019-03-18 16:28] VITALS: BP 152/86; PULSE 86; RESP 16; TEMP 35.6
--- NOTE | 2019-03-25 14:54 | PN.PCM_ITS ---
(1) Lymphedema of both lower extremities Status: Acute Code(s): I89.0 - Lymphedema, not elsewhere classified (2) History of necrotising fasciitis Status: Chronic Code(s): Z87.39 - Personal history of other diseases of the musculoskeletal system and connective tissue (3) Non-healing surgical wound of left groin Status: Chronic Qualifiers: Code(s): T81.89XA - Other complications of procedures, not elsewhere classified, initial encounter (4) Type 2 diabetes mellitus Status: Chronic Qualifiers: Code(s): E11.9 - Type 2 diabetes mellitus without complications (5) Skin ulcer of abdominal wall with fat layer exposed Status: Chronic Code(s): L98.492 - Non-pressure chronic ulcer of skin of other sites with fat layer exposed Comment: left abdominal fold and left medial groin cluster ulcers Type of Wound Date of Service: 03/18/19 Chief Complaint: Nonhealing wound status post surgical excision of necrotizing fasciitis left groin History of Wound: 46-year-old white male who presents to the wound healing center today with complaint of left groin ulceration status post surgical excision of necrotizing fasciitis. He is a past medical history which is significant for that of type 2 diabetes mellitus, gout, diabetic neuropathy, schizophrenia, bilateral lymphedema, and schizophrenia. The patient states that what initially started as a pimple in his left groin progressed to necrotizing fasciitis and he had to have this surgically debrided in April 2017. He was admitted to [facility] for 2 weeks and then [facility] for 6 weeks afterwards. He states that the groin ulcer which extends to his left lower abdomen has been slowly improving and he has been doing daily Aquacel AG dressings with an ABD for the drainage. He does state that he has had 3 wound vacs in the past which were unable to be utilized due to the location of his wound. He denies any foul-smelling discharge or systemic signs of infection at this time. He is seen today as a courtesy visit for Gianni Neil CNP. He is tolerating dressings and denies any increase in drainage. He has been also using sweat beater to his groin area to prevent moisture. The patient otherwise denies any fever, chills, nausea, vomiting, shortness of breath, chest pain or pressure, palpitations, orthopnea, syncope or presyncopal episodes. Progress of Wound: Left groin wound is stable in size and left lateral abdominal fold ulcer and left medial groin cluster ulceration are stable. Was approved for [facility]. Slight maceration seen. No signs of infection at this time. - Physical Exam Vital Signs Temp Pulse Resp BP 96.0 F L 86 16 152/86 H 03/18/19 16:28 03/18/19 16:28 03/18/19 16:28 03/18/19 16:28 General: Alert, Oriented x3, Cooperative, No apparent distress HEENT: Atraumatic Oral: Moist Mucosa Lungs: Clear to auscultation Cardiovascular: Regular rate Abdomen: Soft, Non Tender, Obese Extremities: No clubbing, No cyanosis, No edema Skin: Ulcer/ Wound - See nursing documentation, slough and devitalized tissue present, no signs of infection at this time Neurological: Neuro grossly intact Psych/Mental Status: Normal Affect, Appropriate, Alert and oriented to time, place, person, mood and affect Debridement Note Post-Debridement Measurements/Treatment WC - Nurse 2 - General Ulcer CM Notes Start: 02/26/19 16:00 Freq: Status: Active Protocol: Activity Type Activity Date Activity User E-Sign Co-Sign Detail Recorded Client Recorded Date Recorded By Document 02/26/19 16:01 MW [id number] 02/26/19 16:02 MW Document 03/12/19 16:26 MW [id number] 03/12/19 16:35 MW Document 03/18/19 16:39 MW [id number] 03/18/19 16:52 MW 02/26/19 03/12/19 03/18/19 16:01 16:26 16:39 Wound Center Nurse 2 #4 LEFT MEDIAL GROIN CLUSTER -Time 16:32 16:46 -Correct Patient Yes Yes -Correct Side, Site, Position Yes Yes -Correct Procedure Yes Yes -Procedure Performed Yes Yes -Type of Procedure Debridement Debridement -Clinical Debridement Subcutaneous Subcutaneous -Post Debridement Size (cm) - Length 4.5 0.4 -Post Debridement Size (cm) - Width 0.8 3.4 -Post Debridement Size (cm) - Depth 0.1 0.1 -Total Square Cm 3.60 1.36 -Wound/Ulcer Outcome Not Healed Not Healed -Ulcer Cleansing Rinsed/ Rinsed/ Irrigated with Irrigated with Saline Saline -Foul Odor after Cleansing No No -Bioengineered Tissue No Yes -Type of bioengineered Tissue NU-SHIELD -Expiration Date 12/11/23 -Product Lot Number [id number] -Percent Used 100 -Saline Lot Number [id number] -Bleeding Controlled with Pressure Pressure -Offloading No No -Treatment Response Procedure Procedure Tolerated Well Tolerated Well #3- L ABD FOLD -Time 16:26 16:47 -Correct Patient Yes Yes -Correct Side, Site, Position Yes Yes -Correct Procedure Yes Yes -Procedure Performed Yes Yes -Type of Procedure Debridement Debridement -Clinical Debridement Subcutaneous Subcutaneous -Post Debridement Size (cm) - Length 1.0 0.5 -Post Debridement Size (cm) - Width 2.0 0.7 -Post Debridement Size (cm) - Depth 0.1 0.2 -Total Square Cm 2.00 0.35 -Wound/Ulcer Outcome Not Healed Not Healed -Ulcer Cleansing Rinsed/ Rinsed/ Irrigated with Irrigated with Saline Saline -Foul Odor after Cleansing No No -Bioengineered Tissue No No -Bleeding Controlled with Pressure Pressure -Offloading No No -Treatment Response Procedure Procedure Tolerated Well Tolerated Well #1- LEFT GROIN- POST OP -Time 16:01 16:27 16:48 -Correct Patient Yes Yes Yes -Correct Side, Site, Position Yes Yes Yes -Correct Procedure Yes Yes Yes -Procedure Performed Yes Yes Yes -Type of Procedure Debridement Debridement Debridement -Clinical Debridement Subcutaneous Subcutaneous Subcutaneous -Post Debridement Size (cm) - Length 2.0 1.5 1.0 -Post Debridement Size (cm) - Width 9.0 10.8 2.5 -Post Debridement Size (cm) - Depth 0.1 0.2 0.3 -Total Square Cm 18.00 16.20 2.50 -Wound/Ulcer Outcome Not Healed Not Healed Not Healed -Ulcer Cleansing Rinsed/ Rinsed/ Rinsed/ Irrigated with Irrigated with Irrigated with Saline Saline Saline -Foul Odor after Cleansing No No No -Bioengineered Tissue No No No -Bleeding Controlled with Pressure Pressure Pressure -Offloading No No No -Treatment Response Procedure Procedure Procedure Tolerated Well Tolerated Well Tolerated Well Pain Scale: 0-10 Numeric Is Patient Pain Free? Yes Yes Yes Wound debrided: Left medial and left groin ulcer Laterality: Left Type of Debridement: Excisional debridement Anesthesia Used: 5% Lidocaine Gel Depth: in the subcutaneous layer Percentage of wound debrided: 100 Instrument Used: 5mm curette Tissue Removed: Slough and devitalized tissue Severity: Fat Layer Exposed Amount of bleeding with debridement: Mild Bleeding Controlled with: Pressure Patient tolerated procedure well - Additional Wound Wound debrided: Left abdominal fold ulcer Laterality: Left Type of Debridement: Excisional debridement Anesthesia Used: 5% Lidocaine Gel Depth: in the subcutaneous layer Percentage of wound debrided: 100 Instrument Used: 3mm curette Tissue Removed: Slough and devitalized tissue Severity: Fat Layer Exposed Amount of bleeding with debridement: Mild Bleeding Controlled with: Pressure Patient tolerated procedure: Patient tolerated procedure well Assessment/Plan Assessment: Nonhealing postsurgical wound left groin status post surgical excision of necrotizing fasciitis. Bilateral lower extremity edema. Morbid obesity. Type 2 diabetes mellitus Plan: The patient was seen and examined at the wound center today and was updated on the plan of care. A subcutaneous debridement was performed today. The patient tolerated the procedure well. The patients wound care will consist of: hydrofera blue/meglisorb change daily and as needed cover with gauze With the left groin and abdominal fold ulcer, patient was approved for a nushield And this was applied to the left medial groin ulcer. 100% of the product was used and it was secured with wound veil and Steri-Strips.Discussed to keep area dry and not remove the dressing until the next week.. Did discuss proper drying mechanisms after showering to prevent excess moisture. Baseline bloodwork reviewed which demonstrated a slightly low pre-albumin and patient was advised to use Glucerna or high-protein with meals. Repeat lab work WNL. Prealbumin WNL now. Previous records were requested for continuity of care. Patient educated on the importance of diet on wound healing and instructed to increase protein and vitamin C intake. Patient verbalized understanding. Plastic surgery consultation - no surgery indicated. Did discuss with patient the importance of blood sugar control in wound healing, recent A1C in 02/2018 was 6.1. Patient to follow-up in 2 week or sooner if needed. Patient is on a complex wound plan. This note was generated with [employer] dictation software. It may contain incorrect words, spelling, and punctuation that were not noted in checking the note before signing. Code Visit 111xxx-113xx: [id number] Jessica subq tissue 20 sq cm/< 150xxx-152xx: [id number] Skin sub graft trnk/arm/leg
== END 2019-03-21 23:59 ==
LOC: WC 16:00
PROVIDERS: Family Provider Family Medicine; PCP Family Medicine; Visit Provider Nurse Practitioner Family
DX: T81.89XA Other complications of procedures, not elsewhere classified, initial encounter (principal); E11.622 Type 2 diabetes mellitus with other skin ulcer; I89.0 Lymphedema, not elsewhere classified; Z87.39 Personal history of other diseases of the musculoskeletal system and connective tissue; E11.42 Type 2 diabetes mellitus with diabetic polyneuropathy; L98.492 Non-pressure chronic ulcer of skin of other sites with fat layer exposed; E66.01 Morbid (severe) obesity due to excess calories; Z68.43 Body mass index [BMI] 50.0-59.9, adult; Z71.3 Dietary counseling and surveillance
CPT/HCPCS: 11042; 11045; 15271; Q4160

== ENCOUNTER 2019-04-09 16:15 | Outpatient (RCR) | payer MEDICARE, MEDICAID, SELFPAY ==
[2019-03-22 00:28] VITALS: BP 152/86; PULSE 86; RESP 16; TEMP 35.6
[2019-03-26 16:26] VITALS: BP 162/82; PULSE 74; RESP 18; TEMP 36.6
--- NOTE | 2019-03-26 20:27 | PCM.WC.PN ---
(1) History of necrotising fasciitis Status: Chronic Code(s): Z87.39 - Personal history of other diseases of the musculoskeletal system and connective tissue (2) Morbid obesity Status: Chronic Code(s): E66.01 - Morbid (severe) obesity due to excess calories (3) Non-healing surgical wound of left groin Status: Chronic Qualifiers: Code(s): T81.89XA - Other complications of procedures, not elsewhere classified, initial encounter (4) Skin ulcer of abdominal wall with fat layer exposed Status: Chronic Code(s): L98.492 - Non-pressure chronic ulcer of skin of other sites with fat layer exposed Comment: left abdominal fold and left medial groin cluster ulcers (5) Type 2 diabetes mellitus Status: Chronic Qualifiers: Code(s): E11.9 - Type 2 diabetes mellitus without complications Type of Wound Date of Service: 03/26/19 Chief Complaint: Nonhealing wound status post surgical excision of necrotizing fasciitis left groin History of Wound: 46-year-old white male who presents to the wound healing center today with complaint of left groin ulceration status post surgical excision of necrotizing fasciitis. He is a past medical history which is significant for that of type 2 diabetes mellitus, gout, diabetic neuropathy, schizophrenia, bilateral lymphedema, and schizophrenia. The patient states that what initially started as a pimple in his left groin progressed to necrotizing fasciitis and he had to have this surgically debrided in April 2017. He was admitted to [facility] for 2 weeks and then [facility] for 6 weeks afterwards. He states that the groin ulcer which extends to his left lower abdomen has been slowly improving and he has been doing daily Aquacel AG dressings with an ABD for the drainage. He does state that he has had 3 wound vacs in the past which were unable to be utilized due to the location of his wound. He denies any foul-smelling discharge or systemic signs of infection at this time. He is seen today as a courtesy visit for Gianni Neil CNP. He is tolerating dressings and denies any increase in drainage. He has been also using sweat beater to his groin area to prevent moisture. The patient otherwise denies any fever, chills, nausea, vomiting, shortness of breath, chest pain or pressure, palpitations, orthopnea, syncope or presyncopal episodes. Progress of Wound: Left groin wound is stable in size and left lateral abdominal fold ulcer and left medial groin cluster ulceration is now healed.no new concerns - Physical Exam Vital Signs Temp Pulse Resp BP 97.8 F 74 18 162/82 H 03/26/19 16:26 12 16:26 12 16:26 03/26/19 16:26 General: Alert, Oriented x3, Cooperative, No apparent distress HEENT: Atraumatic Oral: Moist Mucosa Lungs: Clear to auscultation Cardiovascular: Regular rate, Regular Rhythm Abdomen: Soft Extremities: No clubbing, No cyanosis, No edema Skin: Ulcer/ Wound - see nursing documentation, no signs of obvious infection at this time Neurological: Neuro grossly intact Psych/Mental Status: Normal Affect, Appropriate, Alert and oriented to time, place, person, mood and affect Debridement Note Post-Debridement Measurements/Treatment WC - Nurse 2 - General Ulcer CM Notes Start: 03/26/19 16:26 Freq: Status: Active Protocol: Activity Type Activity Date Activity User E-Sign Co-Sign Detail Recorded Client Recorded Date Recorded By Document 03/26/19 16:56 MW [id number] 03/26/19 17:01 MW 03/26/19 16:56 Wound Center Nurse 2 #4 LEFT MEDIAL GROIN CLUSTER -Time 17:00 -Correct Patient Yes -Correct Side, Site, Position Yes -Correct Procedure Yes -Procedure Performed No -Post Debridement Size (cm) - Length 0 -Post Debridement Size (cm) - Width 0 -Post Debridement Size (cm) - Depth 0 -Total Square Cm 0 -Wound/Ulcer Outcome Healed- Epithelialized #3- L ABD FOLD -Time 17:00 -Correct Patient Yes -Correct Side, Site, Position Yes -Correct Procedure Yes -Procedure Performed No -Post Debridement Size (cm) - Length 0 -Post Debridement Size (cm) - Width 0 -Post Debridement Size (cm) - Depth 0 -Total Square Cm 0 -Wound/Ulcer Outcome Healed- Epithelialized #1- LEFT GROIN- POST OP -Time 17:00 -Correct Patient Yes -Correct Side, Site, Position Yes -Correct Procedure Yes -Procedure Performed Yes -Type of Procedure Debridement -Clinical Debridement Subcutaneous -Post Debridement Size (cm) - Length 1.8 -Post Debridement Size (cm) - Width 11.2 -Post Debridement Size (cm) - Depth 0.1 -Total Square Cm 20.16 -Wound/Ulcer Outcome Not Healed -Ulcer Cleansing Rinsed/ Irrigated with Saline -Foul Odor after Cleansing No -Bioengineered Tissue No -Bleeding Controlled with Pressure -Offloading No -Treatment Response Procedure Tolerated Well Pain Scale: 0-10 Numeric Is Patient Pain Free? Yes Wound debrided: left groin ulcer s/p nec fasc Laterality: Left Type of Debridement: Excisional debridement Anesthesia Used: 5% Lidocaine Gel Depth: in the subcutaneous layer Percentage of wound debrided: 100 Instrument Used: 7mm curette Tissue Removed: slough and devitalized tissue Severity: Fat Layer Exposed Amount of bleeding with debridement: Mild Bleeding Controlled with: Pressure Patient tolerated procedure well Assessment/Plan Assessment: Nonhealing postsurgical wound left groin status post surgical excision of necrotizing fasciitis. Bilateral lower extremity edema. Morbid obesity. Type 2 diabetes mellitus Plan: The patient was seen and examined at the wound center today and was updated on the plan of care. A subcutaneous debridement was performed today. The patient tolerated the procedure well. The patients wound care will consist of: hydrofera blue/meglisorb change daily and as needed cover with gauze With the left groin ulcer.Discussed to keep area dry. Did discuss proper drying mechanisms after showering to prevent excess moisture. Baseline bloodwork reviewed which demonstrated a slightly low pre-albumin and patient was advised to use Glucerna or high-protein with meals. Repeat lab work WNL. Prealbumin WNL now. Previous records were requested for continuity of care. Patient educated on the importance of diet on wound healing and instructed to increase protein and vitamin C intake. Patient verbalized understanding. Plastic surgery consultation - no surgery indicated. Did discuss with patient the importance of blood sugar control in wound healing, recent A1C in 02/2018 was 6.1. Patient to follow-up in 2 week or sooner if needed. Patient is on a complex wound plan. This note was generated with [employer] dictation software. It may contain incorrect words, spelling, and punctuation that were not noted in checking the note before signing. Code Visit 111xxx-113xx: [id number] Jesisca subq tissue 20 sq cm/<
[2019-04-02 16:18] VITALS: BP 145/89; PULSE 76; RESP 18; TEMP 35.3
--- NOTE | 2019-04-02 20:50 | PCM.WC.PN ---
(1) History of necrotising fasciitis Status: Chronic Code(s): Z87.39 - Personal history of other diseases of the musculoskeletal system and connective tissue (2) Morbid obesity Status: Chronic Code(s): E66.01 - Morbid (severe) obesity due to excess calories (3) Non-healing surgical wound of left groin Status: Chronic Qualifiers: Code(s): T81.89XA - Other complications of procedures, not elsewhere classified, initial encounter (4) Skin ulcer of abdominal wall with fat layer exposed Status: Chronic Code(s): L98.492 - Non-pressure chronic ulcer of skin of other sites with fat layer exposed Comment: left abdominal fold and left medial groin cluster ulcers (5) Type 2 diabetes mellitus Status: Chronic Qualifiers: Code(s): E11.9 - Type 2 diabetes mellitus without complications Type of Wound Date of Service: 04/02/19 Chief Complaint: Nonhealing wound status post surgical excision of necrotizing fasciitis left groin History of Wound: 46-year-old white male who presents to the wound healing center today with complaint of left groin ulceration status post surgical excision of necrotizing fasciitis. He is a past medical history which is significant for that of type 2 diabetes mellitus, gout, diabetic neuropathy, schizophrenia, bilateral lymphedema, and schizophrenia. The patient states that what initially started as a pimple in his left groin progressed to necrotizing fasciitis and he had to have this surgically debrided in April 2017. He was admitted to the [facility] for 2 weeks and then [facility] for 6 weeks afterwards. He states that the groin ulcer which extends to his left lower abdomen has been slowly improving and he has been doing daily Aquacel AG dressings with an ABD for the drainage. He does state that he has had 3 wound vacs in the past which were unable to be utilized due to the location of his wound. He denies any foul-smelling discharge or systemic signs of infection at this time. He is seen today as a courtesy visit for Gianni Neil CNP. He is tolerating dressings and denies any increase in drainage. He has been also using sweat beater to his groin area to prevent moisture. The patient otherwise denies any fever, chills, nausea, vomiting, shortness of breath, chest pain or pressure, palpitations, orthopnea, syncope or presyncopal episodes. Progress of Wound: Left groin wound is stable in size and left lateral abdominal fold ulcer and left medial groin cluster ulceration remains healed.no new concerns - Physical Exam Vital Signs Temp Pulse Resp BP 95.5 F L 76 18 145/89 H 04/02/19 16:18 04/02/19 16:18 04/02/19 16:18 04/02/19 16:18 General: Alert, Oriented x3, Cooperative, No apparent distress HEENT: Atraumatic Oral: Moist Mucosa Lungs: Clear to auscultation Cardiovascular: Regular rate Abdomen: Soft, Non Tender, Obese Extremities: No clubbing, No cyanosis Skin: Ulcer/ Wound - See nursing documentation, adherent slough present Neurological: Neuro grossly intact Psych/Mental Status: Normal Affect, Appropriate, Alert and oriented to time, place, person, mood and affect Debridement Note Post-Debridement Measurements/Treatment WC - Nurse 2 - General Ulcer CM Notes Start: 03/26/19 16:26 Freq: Status: Active Protocol: Activity Type Activity Date Activity User E-Sign Co-Sign Detail Recorded Client Recorded Date Recorded By Document 03/26/19 16:56 [id number] 03/26/19 17:01 Document 04/02/19 16:34 [id number] 04/02/19 16:35 03/26/19 04/02/19 16:56 16:34 Wound Center Nurse 2 #4 LEFT MEDIAL GROIN CLUSTER -Time 17:00 -Correct Patient Yes -Correct Side, Site, Position Yes -Correct Procedure Yes -Procedure Performed No -Post Debridement Size (cm) - Length 0 -Post Debridement Size (cm) - Width 0 -Post Debridement Size (cm) - Depth 0 -Total Square Cm 0 -Wound/Ulcer Outcome Healed- Epithelialized #3- L ABD FOLD -Time 17:00 -Correct Patient Yes -Correct Side, Site, Position Yes -Correct Procedure Yes -Procedure Performed No -Post Debridement Size (cm) - Length 0 -Post Debridement Size (cm) - Width 0 -Post Debridement Size (cm) - Depth 0 -Total Square Cm 0 -Wound/Ulcer Outcome Healed- Epithelialized #1- LEFT GROIN- POST OP -Time 17:00 16:34 -Correct Patient Yes Yes -Correct Side, Site, Position Yes Yes -Correct Procedure Yes Yes -Procedure Performed Yes Yes -Type of Procedure Debridement Debridement -Clinical Debridement Subcutaneous Subcutaneous -Post Debridement Size (cm) - Length 1.8 2.0 -Post Debridement Size (cm) - Width 11.2 10.5 -Post Debridement Size (cm) - Depth 0.1 0.1 -Total Square Cm 20.16 21.00 -Wound/Ulcer Outcome Not Healed Not Healed -Ulcer Cleansing Rinsed/ Rinsed/ Irrigated with Irrigated with Saline Saline -Foul Odor after Cleansing No No -Bioengineered Tissue No No -Bleeding Controlled with Pressure Pressure -Offloading No No -Treatment Response Procedure Procedure Tolerated Well Tolerated Well Pain Scale: 0-10 Numeric Is Patient Pain Free? Yes Yes Wound debrided: Left groin ulcer status post Necrotizing fasciitis Laterality: Left Type of Debridement: Excisional debridement Anesthesia Used: 5% Lidocaine Gel Depth: in the subcutaneous layer Percentage of wound debrided: 100 Instrument Used: 7mm curette Tissue Removed: Slough and devitalized tissue Severity: Fat Layer Exposed Amount of bleeding with debridement: Mild Bleeding Controlled with: Pressure Patient tolerated procedure well Assessment/Plan Assessment: Nonhealing postsurgical wound left groin status post surgical excision of necrotizing fasciitis. Bilateral lower extremity edema. Morbid obesity. Type 2 diabetes mellitus Plan: The patient was seen and examined at the wound center today and was updated on the plan of care. A subcutaneous debridement was performed today. The patient tolerated the procedure well. The patients wound care will consist of: hydrofera blue/meglisorb change daily and as needed cover with gauze With the left groin ulcer.Discussed to keep area dry. Did discuss proper drying mechanisms after showering to prevent excess moisture. Baseline bloodwork reviewed which demonstrated a slightly low pre-albumin and patient was advised to use Glucerna or high-protein with meals. Repeat lab work WNL. Prealbumin WNL now. Previous records were requested for continuity of care. Patient educated on the importance of diet on wound healing and instructed to increase protein and vitamin C intake. Patient verbalized understanding. Plastic surgery consultation - no surgery indicated. Did discuss with patient the importance of blood sugar control in wound healing, recent A1C in 02/2018 was 6.1. Patient to follow-up in 2 week or sooner if needed. Patient is on a complex wound plan. This note was generated with [employer] software. It may contain incorrect words, spelling, and punctuation that were not noted in checking the note before signing. Code Visit 111xxx-113xx: [id number] Jessica subq tissue 20 sq cm/<
[2019-04-09 16:22] VITALS: BP 148/89; PULSE 90; RESP 16
--- NOTE | 2019-04-09 20:29 | PN.PCM_ITS ---
(1) History of necrotising fasciitis Status: Chronic Code(s): Z87.39 - Personal history of other diseases of the musculoskeletal system and connective tissue (2) Morbid obesity Status: Chronic Code(s): E66.01 - Morbid (severe) obesity due to excess ira gauri (3) Non-healing surgical wound of left groin Status: Chronic Qualifiers: Code(s): T81.89XA - Other complications of procedures, not elsewhere classified, initial encounter (4) Skin ulcer of abdominal wall with fat layer exposed Status: Chronic Code(s): L98.492 - Non-pressure chronic ulcer of skin of other sites with fat layer exposed Comment: left abdominal fold and left medial groin cluster ulcers (5) Type 2 diabetes mellitus Status: Chronic Qualifiers: Code(s): E11.9 - Type 2 diabetes mellitus without complications Type of Wound Date of Service: 04/09/19 Chief Complaint: Nonhealing wound status post surgical excision of necrotizing fasciitis left groin History of Wound: 46-year-old white male who presents to the wound healing center today with complaint of left groin ulceration status post surgical excision of necrotizing fasciitis. He is a past medical history which is significant for that of type 2 diabetes mellitus, gout, diabetic neuropathy, schizophrenia, bilateral lymphedema, and schizophrenia. The patient states that what initially started as a pimple in his left groin progressed to necrotizing fasciitis and he had to have this surgically debrided in April 2017. He was admitted to [facility] for 2 weeks and then [facility] for 6 weeks afterwards. He states that the groin ulcer which extends to his left lower abdomen has been slowly improving and he has been doing daily Aquacel AG dressings with an ABD for the drainage. He does state that he has had 3 wound vacs in the past which were unable to be utilized due to the location of his wound. He denies any foul-smelling discharge or systemic signs of infection at this time. He is seen today as a courtesy visit for Gianni Neil CNP. He is tolerating dressings and denies any increase in drainage. He has been also using sweat beater to his groin area to prevent moisture. The patient otherwise denies any fever, chills, nausea, vomiting, shortness of breath, chest pain or pressure, palpitations, orthopnea, syncope or presyncopal episodes. Progress of Wound: Left groin wound is stable in size and left lateral abdominal fold ulcer and left medial groin cluster ulceration remains healed.no new concerns - Physical Exam Vital Signs Temp Pulse Resp BP 95.5 F L 90 16 148/89 H 04/02/19 16:18 04/09/19 16:22 04/09/19 16:22 04/09/19 16:22 General: Alert, Oriented x3, Cooperative, No apparent distress HEENT: Atraumatic Oral: Moist Mucosa Lungs: Clear to auscultation Cardiovascular: Regular rate Abdomen: Soft, Obese Skin: Ulcer/ Wound - See nursing documentation, slough and devitalized tissue present Neurological: Neuro grossly intact Psych/Mental Status: Normal Affect, Appropriate, Alert and oriented to time, place, person, mood and affect Debridement Note Post-Debridement Measurements/Treatment WC - Nurse 2 - General Ulcer CM Notes Start: 03/26/19 16:26 Freq: Status: Active Protocol: Activity Type Activity Date Activity User E-Sign Co-Sign Detail Recorded Client Recorded Date Recorded By Document 03/26/19 16:56 MW [id number] 03/26/19 17:01 MW Document 04/02/19 16:34 JF [id number] 04/02/19 16:35 JF Document 04/09/19 16:35 MW [id number] 04/09/19 16:37 MW 03/26/19 04/02/19 04/09/19 16:56 16:34 16:35 Wound Center Nurse 2 #4 LEFT MEDIAL GROIN CLUSTER -Time 17:00 -Correct Patient Yes -Correct Side, Site, Position Yes -Correct Procedure Yes -Procedure Performed No -Post Debridement Size (cm) - Length 0 -Post Debridement Size (cm) - Width 0 -Post Debridement Size (cm) - Depth 0 -Total Square Cm 0 -Wound/Ulcer Outcome Healed- Epithelialized #3- L ABD FOLD -Time 17:00 -Correct Patient Yes -Correct Side, Site, Position Yes -Correct Procedure Yes -Procedure Performed No -Post Debridement Size (cm) - Length 0 -Post Debridement Size (cm) - Width 0 -Post Debridement Size (cm) - Depth 0 -Total Square Cm 0 -Wound/Ulcer Outcome Healed- Epithelialized #1- LEFT GROIN- POST OP -Time 17:00 16:34 16:36 -Correct Patient Yes Yes Yes -Correct Side, Site, Position Yes Yes Yes -Correct Procedure Yes Yes Yes -Procedure Performed Yes Yes Yes -Type of Procedure Debridement Debridement Debridement -Clinical Debridement Subcutaneous Subcutaneous Subcutaneous -Post Debridement Size (cm) - Length 1.8 2.0 2.0 -Post Debridement Size (cm) - Width 11.2 10.5 11.5 -Post Debridement Size (cm) - Depth 0.1 0.1 0.1 -Total Square Cm 20.16 21.00 23.00 -Wound/Ulcer Outcome Not Healed Not Healed Not Healed -Ulcer Cleansing Rinsed/ Rinsed/ Rinsed/ Irrigated with Irrigated with Irrigated with Saline Saline Saline -Foul Odor after Cleansing No No No -Bioengineered Tissue No No No -Bleeding Controlled with Pressure Pressure Pressure -Offloading No No No -Treatment Response Procedure Procedure Procedure Tolerated Well Tolerated Well Tolerated Well Pain Scale: 0-10 Numeric Is Patient Pain Free? Yes Yes Yes Wound debrided: Left groin ulcer Type of Debridement: Excisional debridement Anesthesia Used: 5% Lidocaine Gel Depth: in the subcutaneous layer Percentage of wound debrided: 100 Instrument Used: 7mm curette Tissue Removed: Slough and devitalized tissue Severity: Fat Layer Exposed Amount of bleeding with debridement: Mild Bleeding Controlled with: Pressure Patient tolerated procedure well Assessment/Plan Assessment: Nonhealing postsurgical wound left groin status post surgical excision of necrotizing fasciitis. Bilateral lower extremity edema. Morbid obesity. Type 2 diabetes mellitus Plan: The patient was seen and examined at the wound center today and was updated on the plan of care. A subcutaneous debridement was performed today. The patient tolerated the procedure well. The patients wound care will consist of: hydrofera blue/meglisorb change daily and as needed cover with gauze With the left groin ulcer.Discussed to keep area dry. Did discuss proper drying mechanisms after showering to prevent excess moisture. Baseline bloodwork reviewed which demonstrated a slightly low pre-albumin and patient was advised to use Glucerna or high-protein with meals. Repeat lab work WNL. Prealbumin WNL now. Previous records were requested for continuity of care. Patient educated on the importance of diet on wound healing and instructed to increase protein and vitamin C intake. Patient verbalized understanding. Plastic surgery consultation - no surgery indicated. Did discuss with patient the importance of blood sugar control in wound healing, recent A1C in 02/2018 was 6.1. Patient to follow-up in 2 week or sooner if needed. Patient is on a complex wound plan. This note was generated with [employer] dictation software. It may contain incorrect words, spelling, and punctuation that were not noted in checking the note before signing. Code Visit 111xxx-113xx: 52147 Jessica subq tissue 20 sq cm/<
== END 2019-04-21 23:59 ==
LOC: WC 16:15
PROVIDERS: Family Provider Family Medicine; PCP Family Medicine; Visit Provider Nurse Practitioner Family
DX: T81.89XA Other complications of procedures, not elsewhere classified, initial encounter (principal); Y83.8 Other surgical procedures as the cause of abnormal reaction of the patient, or of later complication, without mention of misadventure at the time of the procedure; L98.492 Non-pressure chronic ulcer of skin of other sites with fat layer exposed; E66.01 Morbid (severe) obesity due to excess calories; Z68.43 Body mass index [BMI] 50.0-59.9, adult; Z71.3 Dietary counseling and surveillance; E11.40 Type 2 diabetes mellitus with diabetic neuropathy, unspecified; I89.0 Lymphedema, not elsewhere classified
CPT/HCPCS: 11042; 11045

== ENCOUNTER 2019-05-21 15:45 | Outpatient (RCR) | payer MEDICARE, MEDICAID, SELFPAY ==
[2019-04-22 00:25] VITALS: BP 148/89; PULSE 90; RESP 16; TEMP 35.3
[2019-04-23 15:42] VITALS: BP 155/84; PULSE 84; RESP 18
--- NOTE | 2019-04-29 11:45 | PN.PCM_ITS ---
(1) Lymphedema of both lower extremities Status: Acute Code(s): I89.0 - Lymphedema, not elsewhere classified (2) Morbid obesity Status: Chronic Code(s): E66.01 - Morbid (severe) obesity due to excess calories (3) Non-healing surgical wound of left groin Status: Chronic Qualifiers: Code(s): T81.89XA - Other complications of procedures, not elsewhere classified, initial encounter (4) Type 2 diabetes mellitus Status: Chronic Qualifiers: Code(s): E11.9 - Type 2 diabetes mellitus without complications Type of Wound Date of Service: 04/23/19 Chief Complaint: Nonhealing wound status post surgical excision of necrotizing fasciitis left groin History of Wound: 46-year-old white male who presents to the wound healing center today with complaint of left groin ulceration status post surgical excision of necrotizing fasciitis. He is a past medical history which is significant for that of type 2 diabetes mellitus, gout, diabetic neuropathy, schizophrenia, bilateral lymphedema, and schizophrenia. The patient states that what initially started as a pimple in his left groin progressed to necrotizing fasciitis and he had to have this surgically debrided in April 2017. He was admitted to [facility] for [facility] weeks and then [facility] for 6 weeks afterwards. He states that the groin ulcer which extends to his left lower abdomen has been slowly improving and he has been doing daily Aquacel AG dressings with an ABD for the drainage. He does state that he has had 3 wound vacs in the past which were unable to be utilized due to the location of his wound. He denies any foul-smelling discharge or systemic signs of infection at this time. He is seen today as a courtesy visit for Gianni Neil CNP. He is tolerating dressings and denies any increase in drainage. He has been also using sweat beater to his groin area to prevent moisture. The patient otherwise denies any fever, chills, nausea, vomiting, shortness of breath, chest pain or pressure, palpitations, orthopnea, syncope or presyncopal episodes. Progress of Wound: Left groin wound is Improved in size and left lateral abdominal fold ulcer and left medial groin cluster ulceration remains healed.no new concerns - Physical Exam Vital Signs Temp Pulse Resp BP 95.5 F L 84 18 155/84 H 04/22/19 00:25 04/23/19 15:42 04/23/19 15:42 04/23/19 15:42 General: Alert, Oriented x3, Cooperative, No apparent distress HEENT: Atraumatic Oral: Moist Mucosa Lungs: Clear to auscultation, Normal air movement Cardiovascular: Regular rate Abdomen: Soft, Non Tender, Obese Extremities: No clubbing, No cyanosis, Edema - Generalized bilateral lower extremity edema Skin: Ulcer/ Wound - See nursing documentation, slough and devitalized tissue present, no signs of infection at this time. Neurological: Neuro grossly intact Psych/Mental Status: Normal Affect, Appropriate, Alert and oriented to time, place, person, mood and affect Debridement Note Post-Debridement Measurements/Treatment WC - Nurse 2 - General Ulcer CM Notes Start: 04/23/19 15:42 Freq: Status: Active Protocol: Activity Type Activity Date Activity User E-Sign Co-Sign Detail Recorded Client Recorded Date Recorded By Document 04/23/19 15:58 MW [id number] 04/23/19 16:01 MW 04/23/19 15:58 Wound Center Nurse 2 #1- LEFT GROIN- POST OP -Time 15:59 -Correct Patient Yes -Correct Side, Site, Position Yes -Correct Procedure Yes -Procedure Performed Yes -Type of Procedure Debridement -Clinical Debridement Subcutaneous -Post Debridement Size (cm) - Length 2.0 -Post Debridement Size (cm) - Width 9.8 -Post Debridement Size (cm) - Depth 0.1 -Total Square Cm 19.60 -Wound/Ulcer Outcome Not Healed -Ulcer Cleansing Rinsed/ Irrigated with Saline -Foul Odor after Cleansing No -Bioengineered Tissue No -Bleeding Controlled with Pressure -Offloading No -Treatment Response Procedure Tolerated Well Pain Scale: 0-10 Numeric Is Patient Pain Free? Yes Wound debrided: Left groin ulcer status post surgical debridementNecrotizing fasciitis Type of Debridement: Excisional debridement Anesthesia Used: 5% Lidocaine Gel Depth: in the subcutaneous layer Percentage of wound debrided: 100 Instrument Used: 5mm curette Tissue Removed: Slough and devitalized tissue Severity: Fat Layer Exposed Amount of bleeding with debridement: Mild Bleeding Controlled with: Pressure Patient tolerated procedure well Assessment/Plan Assessment: Nonhealing postsurgical wound left groin status post surgical excision of necrotizing fasciitis. Bilateral lower extremity edema. Morbid obesity. Type 2 diabetes mellitus Plan: The patient was seen and examined at the wound center today and was updated on the plan of care. A subcutaneous debridement was performed today. The patient tolerated the procedure well. The patients wound care will consist of: hydrofera blue/meglisorb change daily and as needed cover with gauze With the left groin ulcer.Discussed to keep area dry. Did discuss proper drying mechanisms after showering to prevent excess moisture. Baseline bloodwork reviewed which demonstrated a slightly low pre-albumin and patient was advised to use Glucerna or high-protein with meals. Repeat lab work WNL. Prealbumin WNL now. Previous records were requested for continuity of care. Patient educated on the importance of diet on wound healing and instructed to increase protein and vitamin C intake. Patient verbalized understanding. Plastic surgery consultation - no surgery indicated. Did discuss with patient the importance of blood sugar control in wound healing, recent A1C in 02/2018 was 6.1. Patient to follow-up in 2 week or sooner if needed. Patient is on a complex wound plan. This note was generated with [employer] dictation software. It may contain incorrect words, spelling, and punctuation that were not noted in checking the note before signing. Code Visit 111xxx-113xx: [id number] Jessica subq tissue 20 sq cm/<
[2019-05-07 15:33] VITALS: BP 152/100; PULSE 90; RESP 20; TEMP 36.3
--- NOTE | 2019-05-07 20:54 | PN.PCM_ITS ---
(1) Lymphedema of both lower extremities Status: Acute Code(s): I89.0 - Lymphedema, not elsewhere classified (2) Morbid obesity Status: Chronic Code(s): E66.01 - Morbid (severe) obesity due to excess calories (3) Non-healing surgical wound of left groin Status: Chronic Qualifiers: Code(s): T81.89XA - Other complications of procedures, not elsewhere classified, initial encounter (4) Type 2 diabetes mellitus Status: Chronic Qualifiers: Code(s): E11.9 - Type 2 diabetes mellitus without complications Type of Wound Date of Service: 05/07/19 Chief Complaint: Nonhealing wound status post surgical excision of necrotizing fasciitis left groin History of Wound: 46-year-old white male who presents to the wound healing center today with complaint of left groin ulceration status post surgical excision of necrotizing fasciitis. He is a past medical history which is significant for that of type 2 diabetes mellitus, gout, diabetic neuropathy, schizophrenia, bilateral lymphedema, and schizophrenia. The patient states that what initially started as a pimple in his left groin progressed to necrotizing fasciitis and he had to have this surgically debrided in April 2017. He was admitted to [facility] for 2 weeks and then [facility] for 6 weeks afterwards. He states that the groin ulcer which extends to his left lower abdomen has been slowly improving and he has been doing daily Aquacel AG dressings with an ABD for the drainage. He does state that he has had 3 wound vacs in the past which were unable to be utilized due to the location of his wound. He denies any foul-smelling discharge or systemic signs of infection at this time. He is seen today as a courtesy visit for Gianni Neil CNP. He is tolerating dressings and denies any increase in drainage. He has been also using sweat beater to his groin area to prevent moisture. The patient otherwise denies any fever, chills, nausea, vomiting, shortness of breath, chest pain or pressure, palpitations, orthopnea, syncope or presyncopal episodes. Progress of Wound: Left groin wound is stable in size and left lateral abdominal fold ulcer and left medial groin cluster ulceration remains healed.no new concerns - Physical Exam Vital Signs Temp Pulse Resp BP 97.4 F L 90 20 H 152/100 H 05/07/19 15:33 05/07/19 15:33 05/07/19 15:33 05/07/19 15:33 General: Alert, Oriented x3, Cooperative, No apparent distress HEENT: Atraumatic Oral: Moist Mucosa Lungs: Clear to auscultation, Normal air movement Cardiovascular: Regular rate Abdomen: Soft, Non Tender Extremities: No clubbing, No cyanosis, No edema Skin: Ulcer/ Wound - See nursing documentation, no signs of obvious infection at this time Neurological: Neuro grossly intact Psych/Mental Status: Normal Affect, Appropriate, Alert and oriented to time, place, person, mood and affect Debridement Note Post-Debridement Measurements/Treatment WC - Nurse 2 - General Ulcer CM Notes Start: 04/23/19 15:42 Freq: Status: Active Protocol: Activity Type Activity Date Activity User E-Sign Co-Sign Detail Recorded Client Recorded Date Recorded By Document 04/23/19 15:58 MW [id number] 04/23/19 16:01 MW Document 05/07/19 16:00 MW [id number] 05/07/19 16:02 MW 04/23/19 05/07/19 15:58 16:00 Wound Center Nurse 2 #1- LEFT GROIN- POST OP -Time 15:59 16:00 -Correct Patient Yes Yes -Correct Side, Site, Position Yes Yes -Correct Procedure Yes Yes -Procedure Performed Yes Yes -Type of Procedure Debridement Debridement -Clinical Debridement Subcutaneous Subcutaneous -Post Debridement Size (cm) - Length 2.0 1.8 -Post Debridement Size (cm) - Width 9.8 11.5 -Post Debridement Size (cm) - Depth 0.1 0.1 -Total Square Cm 19.60 20.70 -Wound/Ulcer Outcome Not Healed Not Healed -Ulcer Cleansing Rinsed/ Rinsed/ Irrigated with Irrigated with Saline Saline -Foul Odor after Cleansing No No -Bioengineered Tissue No No -Bleeding Controlled with Pressure Pressure -Offloading No No -Treatment Response Procedure Procedure Tolerated Well Tolerated Well Pain Scale: 0-10 Numeric Is Patient Pain Free? Yes Yes Wound debrided: Left groin ulceration Laterality: Left Type of Debridement: Excisional debridement Anesthesia Used: 5% Lidocaine Gel Depth: in the subcutaneous layer Percentage of wound debrided: 100 Instrument Used: 5mm curette Tissue Removed: Slough and devitalized tissue Severity: Fat Layer Exposed Amount of bleeding with debridement: Mild Bleeding Controlled with: Pressure Patient tolerated procedure well Assessment/Plan Assessment: Nonhealing postsurgical wound left groin status post surgical excision of necrotizing fasciitis. Bilateral lower extremity edema. Morbid obesity. Type 2 diabetes mellitus Plan: The patient was seen and examined at the wound center today and was updated on the plan of care. A subcutaneous debridement was performed today. The patient tolerated the procedure well. The patients wound care will consist of: meglisorb change daily and as needed cover with gauze With the left groin ulcer.Discussed to keep area dry. Did discuss proper drying mechanisms after showering to prevent excess moisture. Baseline bloodwork reviewed which demonstrated a slightly low pre-albumin and patient was advised to use Glucerna or high-protein with meals. Repeat lab work WNL. Prealbumin WNL now. Previous records were requested for continuity of care. Patient educated on the importance of diet on wound healing and instructed to increase protein and vitamin C intake. Patient verbalized understanding. Plastic surgery cons ultation - no surgery indicated. Did discuss with patient the importance of blood sugar control in wound healing, recent A1C in 02/2018 was 6.1. Patient to follow-up in 2 week or sooner if needed. Patient is on a complex wound plan. This note was generated with [employer] dictation software. It may contain incorrect words, spelling, and punctuation that were not noted in checking the note before signing. Code Visit 111xxx-113xx: 27634 Jessica subq tissue 20 sq cm/<
[2019-05-14 15:53] VITALS: BP 143/80; PULSE 87; RESP 18; TEMP 36.3
--- NOTE | 2019-05-14 19:31 | PN.PCM_ITS ---
(1) Lymphedema of both lower extremities Status: Acute Code(s): I89.0 - Lymphedema, not elsewhere classified (2) Morbid obesity Status: Chronic Code(s): E66.01 - Morbid (severe) obesity due to excess calories (3) Non-healing surgical wound of left groin Status: Chronic Qualifiers: Code(s): T81.89XA - Other complications of procedures, not elsewhere classified, initial encounter (4) Type 2 diabetes mellitus Status: Chronic Qualifiers: Code(s): E11.9 - Type 2 diabetes mellitus without complications Type of Wound Date of Service: 05/14/19 Chief Complaint: Nonhealing wound status post surgical excision of necrotizing fasciitis left groin History of Wound: 46-year-old white male who presents to the wound healing center today with complaint of left groin ulceration status post surgical excision of necrotizing fasciitis. He is a past medical history which is significant for that of type 2 diabetes mellitus, gout, diabetic neuropathy, schizophrenia, bilateral lymphedema, and schizophrenia. The patient states that what initially started as a pimple in his left groin progressed to necrotizing fasciitis and he had to have this surgically debrided in April 2017. He was admitted to [facility] [place] for 2 weeks and then [facility] for 6 weeks afterwards. He states that the groin ulcer which extends to his left lower abdomen has been slowly improving and he has been doing daily Aquacel AG dressings with an ABD for the drainage. He does state that he has had 3 wound vacs in the past which were unable to be utilized due to the location of his wound. He denies any foul-smelling discharge or systemic signs of infection at this time. He is seen today as a courtesy visit for Gianni Neil CNP. He is tolerating dressings and denies any increase in drainage. He has been also using sweat beater to his groin area to prevent moisture. The patient otherwise denies any fever, chills, nausea, vomiting, shortness of breath, chest pain or pressure, palpitations, orthopnea, syncope or presyncopal episodes. Progress of Wound: Left groin wound is stable in size and left lateral abdominal fold ulcer and left medial groin cluster ulceration remains healed.no new concerns - Physical Exam Vital Signs Temp Pulse Resp BP 97.3 F L 87 18 143/80 H 05/14/19 15:53 05/14/19 15:53 05/14/19 15:53 05/14/19 15:53 General: Alert, Oriented x3, Cooperative, No apparent distress HEENT: Atraumatic Oral: Moist Mucosa Neck: Supple Lungs: Clear to auscultation, Normal air movement Cardiovascular: Regular rate Abdomen: Soft, Non Tender, Obese Extremities: No clubbing, No cyanosis, No edema Skin: Ulcer/ Wound - see nursing documentation Neurological: Neuro grossly intact Psych/Mental Status: Normal Affect, Appropriate, Alert and oriented to time, place, person, mood and affect Debridement Note Post-Debridement Measurements/Treatment WC - Nurse 2 - General Ulcer CM Notes Start: 04/23/19 15:42 Freq: Status: Active Protocol: Activity Type Activity Date Activity User E-Sign Co-Sign Detail Recorded Client Recorded Date Recorded By Document 04/23/19 15:58 MW [id number] 04/23/19 16:01 MW Document 05/07/19 16:00 MW [id number] 05/07/19 16:02 MW Document 05/14/19 16:01 MW [id number] 05/14/19 16:04 MW 04/23/19 05/07/19 05/14/19 15:58 16:00 16:01 Wound Center Nurse 2 #1- LEFT GROIN- POST OP -Time 15:59 16:00 16:02 -Correct Patient Yes Yes Yes -Correct Side, Site, Position Yes Yes Yes -Correct Procedure Yes Yes Yes -Procedure Performed Yes Yes Yes -Type of Procedure Debridement Debridement Debridement -Clinical Debridement Subcutaneous Subcutaneous Subcutaneous -Post Debridement Size (cm) - Length 2.0 1.8 1.7 -Post Debridement Size (cm) - Width 9.8 11.5 10.5 -Post Debridement Size (cm) - Depth 0.1 0.1 0.1 -Total Square Cm 19.60 20.70 17.85 -Wound/Ulcer Outcome Not Healed Not Healed Not Healed -Ulcer Cleansing Rinsed/ Rinsed/ Rinsed/ Irrigated with Irrigated with Irrigated with Saline Saline Saline -Foul Odor after Cleansing No No No -Bioengineered Tissue No No No -Bleeding Controlled with Pressure Pressure Pressure -Offloading No No No -Treatment Response Procedure Procedure Procedure Tolerated Well Tolerated Well Tolerated Well Pain Scale: 0-10 Numeric Is Patient Pain Free? Yes Yes Yes Wound debrided: left groin ulcer Laterality: Left Type of Debridement: Excisional debridement Anesthesia Used: 5% Lidocaine Gel Depth: in the subcutaneous layer Percentage of wound debrided: 100 Instrument Used: 5mm curette Tissue Removed: slough and devitalized tissue Severity: Fat Layer Exposed Amount of bleeding with debridement: Mild Bleeding Controlled with: Pressure Patient tolerated procedure well Assessment/Plan Assessment: Nonhealing postsurgical wound left groin status post surgical excision of necrotizing fasciitis. Bilateral lower extremity edema. Morbid obesity. Type 2 diabetes mellitus Plan: The patient was seen and examined at the wound center today and was updated on the plan of care. A subcutaneous debridement was performed today. The patient tolerated the procedure well. The patients wound care will consist of: meglisorb change daily and as needed cover with gauze With the left groin ulcer.Discussed to keep area dry. Did discuss proper drying mechanisms after showering to prevent excess moisture. Baseline bloodwork reviewed which demonstrated a slightly low pre-albumin and patient was advised to use Glucerna or high-protein with meals. Repeat lab work WNL. Prealbumin WNL now. Previous records were requested for continuity of care. Patient educated on the importance of diet on wound healing and instructed to increase protein and vitamin C intake. Patient verbalized understanding. Plastic surgery consultation - no surgery indicated. Did discuss with patient the importance of blood sugar control in wound healing, recent A1C in 02/2018 was 6.1. Patient to follow-up in 2 week or sooner if needed. Patient is on a complex wound plan. This note was generated with [employer] dictation software. It may contain incorrect words, spelling, and punctuation that were not noted in checking the note before signing. Code Visit 111xxx-113xx: [id number] Jessica subq tissue 20 sq cm/<
[2019-05-21 15:43] VITALS: BP 136/85; PULSE 86; RESP 18; TEMP 35.6
--- NOTE | 2019-05-21 17:12 | PN.PCM_ITS ---
(1) Non-healing surgical wound of left groin Status: Chronic Current Visit: Yes Qualifiers: Code(s): T81.89XA - Other complications of procedures, not elsewhere classified, initial encounter (2) Lymphedema of both lower extremities Status: Acute Current Visit: Yes Code(s): I89.0 - Lymphedema, not elsewhere classified (3) Morbid obesity Status: Chronic Current Visit: Yes Code(s): E66.01 - Morbid (severe) obesity due to excess calories (4) Type 2 diabetes mellitus Status: Chronic Current Visit: Yes Qualifiers: Code(s): E11.9 - Type 2 diabetes mellitus without complications Type of Wound Date of Service: 05/21/19 Chief Complaint: Nonhealing wound status post surgical excision of necrotizing fasciitis left groin History of Wound: 46-year-old white male who presents to the wound healing center today with complaint of left groin ulceration status post surgical excision of necrotizing fasciitis. He is a past medical history which is significant for that of type 2 diabetes mellitus, gout, diabetic neuropathy, schizophrenia, bilateral lymphedema, and schizophrenia. The patient states that what initially started as a pimple in his left groin progressed to necrotizing fasciitis and he had to have this surgically debrided in April 2017. He was admitted to [facility] for 2 weeks and then [facility] for 6 weeks afterwards. He states that the groin ulcer which extends to his left lower abdomen has been slowly improving and he has been doing daily Aquacel AG dressings with an ABD for the drainage. He does state that he has had 3 wound vacs in the past which were unable to be utilized due to the location of his wound. He denies any foul-smelling discharge or systemic signs of infection at this time. He is seen today as a courtesy visit for Gianni Neil CNP. He is tolerating dressings and denies any increase in drainage. He has been also using sweat beater to his groin area to prevent moisture. The patient otherwise denies any fever, chills, nausea, vomiting, shortness of breath, chest pain or pressure, palpitations, orthopnea, syncope or presyncopal episodes. Progress of Wound: Left groin wound is stable in size and left lateral abdominal fold ulcer and left medial groin cluster ulceration remains healed.no new concerns - Physical Exam Vital Signs Temp Pulse Resp BP 96.1 F L 86 18 136/85 H 05/21/19 15:43 05/21/19 15:43 05/21/19 15:43 05/21/19 15:43 General: Alert, Oriented x3, Cooperative, No apparent distress HEENT: Atraumatic Oral: Moist Mucosa Lungs: Clear to auscultation, Normal air movement Cardiovascular: Regular rate, Regular Rhythm Abdomen: Soft, Non Tender, Obese Extremities: No clubbing, No cyanosis, Capillary Refill Less than 3 Seconds Skin: Ulcer/ Wound - See nursing documentation, slough and devitalized tissue Wound Measurements and Assessment WC - Nurse 1 - General Ulcer Measurement Start: 04/23/19 15:42 Freq: Status: Active Protocol: Activity Type Activity Date Activity User E-Sign Co-Sign Detail Recorded Client Recorded Date Recorded By Document 05/21/19 15:43 BMF [id number] 05/21/19 15:51 BMF 05/21/19 15:43 Wound Center Nurse 1 [Ulcer Assessment] #1- LEFT GROIN- POST OP -Combined with other wound No -Current Size (cm) - Length 1 -Current Size (cm) - Width 11.1 -Current Size (cm) - Depth 0.2 -Total Square Cm 11.1 -Photo Taken No -Epithelialization None Present -Tunneling No -Undermining/Tunneling No -Circular Undermining No -Exudate Amt Small -Exudate Type Serous -Wound Margin Thickened -Granulation Amt Large (67-100%) -Granulation Quality [place] -Slough/Fibrin Yes -Necrosis Amt Small (1-33%) -Necrotic Tissue Type Adherent Slough -Texture (Inessa-wound Skin Appearance) Assessed, Scarring -Moisture (Inessa-wound Skin Appearance Assessed ) -Color (Inessa-wound Skin Appearance) Assessed -Temperature (Inessa-wound Skin No Abnormality Appearance) (Pt Warm) -Tenderness on Palpation (Inessa-wound No Skin Appearance) -Ulcer Cleansing Rinsed/ Irrigated with Saline -Foul Odor after Cleansing No -Anesthetic Used 4% Lidocaine Solution WC - Nurse 2 - General Ulcer CM Notes Start: 04/23/19 15:42 Freq: Status: Active Protocol: Activity Type Activity Date Activity User E-Sign Co-Sign Detail Recorded Client Recorded Date Recorded By Document 05/21/19 16:09 MW [id number] 05/21/19 16:12 MW 05/21/19 16:09 Wound Center Nurse 2 [Procedure/Treatment] -Time 16:10 -Correct Patient Yes -Correct Side, Site, Position Yes -Correct Procedure Yes -Procedure Performed Yes -Type of Procedure Debridement -Clinical Debridement Subcutaneous -Post Debridement Size (cm) - Length 1.5 -Post Debridement Size (cm) - Width 10.5 -Post Debridement Size (cm) - Depth 0.1 -Total Square Cm 15.75 -Wound/Ulcer Outcome Not Healed -Ulcer Cleansing Rinsed/ Irrigated with Saline -Foul Odor after Cleansing No -Bioengineered Tissue No -Bleeding Controlled with Pressure -Offloading No -Treatment Response Procedure Tolerated Well [See Physician Procedure note for Specifics] Pain Scale: 0-10 Numeric [Pain] -Is Patient Pain Free? Yes Neurological: Neuro grossly intact Psych/Mental Status: Normal Affect, Appropriate, Alert and oriented to time, place, person, mood and affect Debridement Note Post-Debridement Measurements/Treatment WC - Nurse 2 - General Ulcer CM Notes Start: 04/23/19 15:42 Freq: Status: Active Protocol: Activity Type Activity Date Activity User E-Sign Co-Sign Detail Recorded Client Recorded Date Recorded By Document 04/23/19 15:58 MW [id number] 04/23/19 16:01 MW Document 05/07/19 16:00 MW [id number] 05/07/19 16:02 MW Document 05/14/19 16:01 MW [id number] 05/14/19 16:04 MW Document 05/21/19 16:09 MW [id number] 05/21/19 16:12 MW 04/23/19 05/07/19 05/14/19 15:58 16:00 16:01 Wound Center Nurse 2 #1- LEFT GROIN- POST OP -Time 15:59 16:00 16:02 -Correct Patient Yes Yes Yes -Correct Side, Site, Position Yes Yes Yes -Correct Procedure Yes Yes Yes -Procedure Performed Yes Yes Yes -Type of Procedure Debridement Debridement Debridement -Clinical Debridement Subcutaneous Subcutaneous Subcutaneous -Post Debridement Size (cm) - Length 2.0 1.8 1.7 -Post Debridement Size (cm) - Width 9.8 11.5 10.5 -Post Debridement Size (cm) - Depth 0.1 0.1 0.1 -Total Square Cm 19.60 20.70 17.85 -Wound/Ulcer Outcome Not Healed Not Healed Not Healed -Ulcer Cleansing Rinsed/ Rinsed/ Rinsed/ Irrigated with Irrigated with Irrigated with Saline Saline Saline -Foul Odor after Cleansing No No No -Bioengineered Tissue No No No -Bleeding Controlled with Pressure Pressure Pressure -Offloading No No No -Treatment Response Procedure Procedure Procedure Tolerated Well Tolerated Well Tolerated Well Pain Scale: 0-10 Numeric Is Patient Pain Free? Yes Yes Yes 05/21/19 16:09 Wound Center Nurse 2 #1- LEFT GROIN- POST OP -Time 16:10 -Correct Patient Yes -Correct Side, Site, Position Yes -Correct Procedure Yes -Procedure Performed Yes -Type of Procedure Debridement -Clinical Debridement Subcutaneous -Post Debridement Size (cm) - Length 1.5 -Post Debridement Size (cm) - Width 10.5 -Post Debridement Size (cm) - Depth 0.1 -Total Square Cm 15.75 -Wound/Ulcer Outcome Not Healed -Ulcer Cleansing Rinsed/ Irrigated with Saline -Foul Odor after Cleansing No -Bioengineered Tissue No -Bleeding Controlled with Pressure -Offloading No -Treatment Response Procedure Tolerated Well Pain Scale: 0-10 Numeric Is Patient Pain Free? Yes Wound debrided: Left groin ulceration Laterality: Left Type of Debridement: Excisional debridement Anesthesia Used: 5% Lidocaine Gel Depth: in the subcutaneous layer Percentage of wound debrided: 100 Instrument Used: 5mm curette Tissue Removed: slough and Devitalized tissue Severity: Fat Layer Exposed Amount of bleeding with debridement: Mild Bleeding Controlled with: Pressure Patient tolerated procedure well Assessment/Plan Active Problems Lymphedema of both lower extremities (Acute) Type 2 diabetes mellitus (Chronic) Morbid obesity (Chronic) Non-healing surgical wound of left groin (Chronic) Assessment: Nonhealing postsurgical wound left groin status post surgical excision of necrotizing fasciitis. Bilateral lower extremity edema. Morbid obesity. Type 2 diabetes mellitus Plan: The patient was seen and examined at the wound center today and was updated on the plan of care. A subcutaneous debridement was performed today. The patient tolerated the procedure well. The patients wound care will consist of: meglisorb change daily and as needed cover with gauze With the left groin ulcer.Discussed to keep area dry. Did discuss proper drying mechanisms after showering to prevent excess moisture. Baseline bloodwork reviewed which demonstrated a slightly low pre-albumin and patient was advised to use Glucerna or high-protein with meals. Repeat lab work WNL. Prealbumin WNL now. Previous records were requested for continuity of care. Patient educated on the importance of diet on wound healing and instructed to increase protein and vitamin C intake. Patient verbalized understanding. Plastic surgery consultation - no surgery indicated. Did discuss with patient the importance of blood sugar control in wound healing, recent A1C in 02/2018 was 6.1. Patient to follow-up in 2 week or sooner if needed. Patient is on a complex wound plan. Given the delayed wound healing and the fact that he has failed standard wound care greater than 4 weeks will apply for an advanced skin substitute. This note was generated with [employer] dictation software. It may contain incorrect words, spelling, and punctuation that were not noted in checking the note before signing. Code Visit 111xxx-113xx: 36841 Jessica subq tissue 20 sq cm/<
== END 2019-05-22 23:59 ==
LOC: WC 15:45
PROVIDERS: Family Provider Family Medicine; PCP Family Medicine; Visit Provider Nurse Practitioner Family
DX: T81.89XA Other complications of procedures, not elsewhere classified, initial encounter (principal); Y83.8 Other surgical procedures as the cause of abnormal reaction of the patient, or of later complication, without mention of misadventure at the time of the procedure; I89.0 Lymphedema, not elsewhere classified; E66.01 Morbid (severe) obesity due to excess calories; Z68.43 Body mass index [BMI] 50.0-59.9, adult; Z71.3 Dietary counseling and surveillance; E11.9 Type 2 diabetes mellitus without complications; L98.492 Non-pressure chronic ulcer of skin of other sites with fat layer exposed
CPT/HCPCS: 11042; 11045

== ENCOUNTER 2019-06-18 15:30 | Outpatient (RCR) | payer MEDICARE, MEDICAID, SELFPAY ==
[2019-05-23 00:30] VITALS: BP 136/85; PULSE 86; RESP 18; TEMP 35.6
[2019-05-28 15:46] VITALS: BP 149/87; PULSE 94; RESP 18; TEMP 35.4
--- NOTE | 2019-05-28 16:59 | PCM.WC.PN ---
(1) Non-healing surgical wound of left groin Status: Chronic Current Visit: Yes Qualifiers: Code(s): T81.89XA - Other complications of procedures, not elsewhere classified, initial encounter (2) Lymphedema of both lower extremities Status: Acute Current Visit: No Code(s): I89.0 - Lymphedema, not elsewhere classified (3) Diabetic neuropathy Status: Chronic Current Visit: No Code(s): E11.40 - Type 2 diabetes mellitus with diabetic neuropathy, unspecified (4) History of necrotising fasciitis Status: Chronic Current Visit: No Code(s): Z87.39 - Personal history of other diseases of the musculoskeletal system and connective tissue (5) Morbid obesity Status: Chronic Current Visit: No Code(s): E66.01 - Morbid (severe) obesity due to excess calories (6) Type 2 diabetes mellitus Status: Chronic Current Visit: No Qualifiers: Code(s): E11.9 - Type 2 diabetes mellitus without complications Type of Wound Date of Service: 05/28/19 Chief Complaint: Nonhealing wound status post surgical excision of necrotizing fasciitis left groin History of Wound: 46-year-old white male who presents to the wound healing center today with complaint of left groin ulceration status post surgical excision of necrotizing fasciitis. He is a past medical history which is significant for that of type 2 diabetes mellitus, gout, diabetic neuropathy, schizophrenia, bilateral lymphedema, and schizophrenia. The patient states that what initially started as a pimple in his left groin progressed to necrotizing fasciitis and he had to have this surgically debrided in April 2017. He was admitted to [facility] for 2 weeks and then [facility] for 6 weeks afterwards. He states that the groin ulcer which extends to his left lower abdomen has been slowly improving and he has been doing daily Aquacel AG dressings with an ABD for the drainage. He does state that he has had 3 wound vacs in the past which were unable to be utilized due to the location of his wound. He denies any foul-smelling discharge or systemic signs of infection at this time. He is seen today as a courtesy visit for Gianni Neil CNP. He is tolerating dressings and denies any increase in drainage. He has been also using sweat beater to his groin area to prevent moisture. The patient otherwise denies any fever, chills, nausea, vomiting, shortness of breath, chest pain or pressure, palpitations, orthopnea, syncope or presyncopal episodes. Progress of Wound: Left groin wound is stable in size and left lateral abdominal fold ulcer and left medial groin cluster ulceration remains healed.no new concerns, was approved for amnioexcel which was applied today - Physical Exam Vital Signs Temp Pulse Resp BP 95.7 F L 94 18 149/87 H 05/28/19 15:46 05/28/19 15:46 05/28/19 15:46 05/28/19 15:46 General: Alert, Oriented x3, Cooperative, No apparent distress HEENT: Atraumatic Oral: Moist Mucosa Lungs: Clear to auscultation, Normal air movement Cardiovascular: Regular rate, Regular Rhythm Abdomen: Soft, Non Tender, Obese Extremities: No clubbing, No cyanosis, Edema - Generalized bilateral lower extremity edema Skin: Ulcer/ Wound - See nursing documentation, slough and devitalized tissue present, no signs of infection at this time Wound Measurements and Assessment WC - Nurse 1 - General Ulcer Measurement Start: 05/28/19 15:46 Freq: Status: Active Protocol: Activity Type Activity Date Activity User E-Sign Co-Sign Detail Recorded Client Recorded Date Recorded By Document 05/28/19 15:46 [facility] [id number] 05/28/19 15:49 [facility] 05/28/19 15:46 Wound Center Nurse 1 [Ulcer Assessment] #1- LEFT GROIN- POST OP -Combined with other wound No -Current Size (cm) - Length 1.1 -Current Size (cm) - Width 12.7 -Current Size (cm) - Depth 0.2 -Total Square Cm 13.97 -Photo Taken No -Epithelialization Small 1-33% -Tunneling No -Undermining/Tunneling No -Circular Undermining No -Exudate Type Serosanguineous -Wound Margin Distinct, Outline Attached -Granulation Amt Large (67-100%) -Granulation Quality Pale,[place] -Necrosis Amt None Present (0 %) -Necrotic Tissue Type Adherent Slough -Structure Exposed N/A -Texture (Inessa-wound Skin Appearance) Scarring -Moisture (Inessa-wound Skin Appearance Maceration ) -Color (Inessa-wound Skin Appearance) No Abnormality, Assessed -Temperature (Inessa-wound Skin No Abnormality Appearance) (Pt Warm) -Tenderness on Palpation (Inessa-wound No Skin Appearance) -Ulcer Cleansing Rinsed/ Irrigated with Saline -Foul Odor after Cleansing No -Anesthetic Used 4% Lidocaine Solution [Edema Assessment] -Lower Limb Edema Present NA - Nurse 2 - General Ulcer CM Notes Start: 05/28/19 15:46 Freq: Status: Active Protocol: Activity Type Activity Date Activity User E-Sign Co-Sign Detail Recorded Client Recorded Date Recorded By Document 05/28/19 16:00 MW [id number] 05/28/19 16:08 MW 05/28/19 16:00 Wound Center Nurse 2 [Procedure/Treatment] #1- LEFT GROIN- POST OP -Time 16:00 -Correct Patient Yes -Correct Side, Site, Position Yes -Correct Procedure Yes -Procedure Performed Yes -Type of Procedure Debridement -Clinical Debridement Subcutaneous -Post Debridement Size (cm) - Length 1.7 -Post Debridement Size (cm) - Width 11.0 -Post Debridement Size (cm) - Depth 0.1 -Total Square Cm 18.70 -Wound/Ulcer Outcome Not Healed -Ulcer Cleansing Rinsed/ Irrigated with Saline -Foul Odor after Cleansing No -Expiration Date 01/02/24 -Product Lot Number [id number] -Percent Used 100 -Saline Lot Number [id number] -Other amnioexcel 4x8cm -32 units -Offloading No -Treatment Response Procedure Tolerated Well [See Physician Procedure note for Specifics] Pain Scale: 0-10 Numeric [Pain] -Is Patient Pain Free? Yes Neurological: Neuro grossly intact Psych/Mental Status: Normal Affect, Appropriate, Alert and oriented to time, place, person, mood and affect Debridement Note Post-Debridement Measurements/Treatment - Nurse 2 - General Ulcer CM Notes Start: 05/28/19 15:46 Freq: Status: Active Protocol: Activity Type Activity Date Activity User E-Sign Co-Sign Detail Recorded Client Recorded Date Recorded By Document 05/28/19 16:00 MW [id number] 05/28/19 16:08 MW 05/28/19 16:00 Wound Center Nurse 2 #1- LEFT GROIN- POST OP -Time 16:00 -Correct Patient Yes -Correct Side, Site, Position Yes -Correct Procedure Yes -Procedure Performed Yes -Type of Procedure Debridement -Clinical Debridement Subcutaneous -Post Debridement Size (cm) - Length 1.7 -Post Debridement Size (cm) - Width 11.0 -Post Debridement Size (cm) - Depth 0.1 -Total Square Cm 18.70 -Wound/Ulcer Outcome Not Healed -Ulcer Cleansing Rinsed/ Irrigated with Saline -Foul Odor after Cleansing No -Expiration Date 01/02/24 -Product Lot Number [id number] -Percent Used 100 -Saline Lot Number [id number] -Other amnioexcel 4x8cm -32 units -Offloading No -Treatment Response Procedure Tolerated Well Pain Scale: 0-10 Numeric Is Patient Pain Free? Yes Wound debrided: Left groin surgical nonhealing ulcer Laterality: Left Type of Debridement: Excisional debridement Anesthesia Used: 5% Lidocaine Gel Depth: in the subcutaneous layer Percentage of wound debrided: 100 Instrument Used: 5mm curette Tissue Removed: Slough and devitalized tissue Severity: Fat Layer Exposed Amount of bleeding with debridement: Mild Bleeding Controlled with: Pressure Patient tolerated procedure well Assessment/Plan Active Problems Non-healing surgical wound of left groin (Chronic) Assessment: Nonhealing postsurgical wound left groin status post surgical excision of necrotizing fasciitis. Bilateral lower extremity edema. Morbid obesity. Type 2 diabetes mellitus Plan: The patient was seen and examined at the wound center today and was updated on the plan of care. A subcutaneous debridement was performed today. The patient tolerated the procedure well. The patients wound care will consist of: Amnioexcel # 1 was applied to left groin wound, 100% of the product was utilized and secured with Steri's and wound veil, change Karamax alginate every other day.Discussed to keep area dry. Did discuss proper drying mechanisms after showering to prevent excess moisture. Baseline bloodwork reviewed which demonstrated a slightly low pre-albumin and patient was advised to use Glucerna or high-protein with meals. Repeat lab work WNL. Prealbumin WNL now. Previous records were requested for continuity of care. Patient educated on the importance of diet on wound healing and instructed to increase protein and vitamin C intake. Patient verbalized understanding. Plastic surgery consultation - no surgery indicated. Did discuss with patient the importance of blood sugar control in wound healing, recent A1C in 02/2018 was 6.1. Patient to follow-up in 2 week or sooner if needed. Patient is on a complex wound plan. Given the delayed wound healing and the fact that he has failed standard wound care greater than 4 weeks will apply for an advanced skin substitute. This note was generated with [employer] software. It may contain incorrect words, spelling, and punctuation that were not noted in checking the note before signing. Code Visit 150xxx-152xx: 65637 Skin sub graft trnk/arm/leg
[2019-06-04 15:48] VITALS: BP 154/89; PULSE 77; RESP 18; TEMP 36.1
--- NOTE | 2019-06-05 16:33 | PN.PCM_ITS ---
(1) Non-healing surgical wound of left groin Status: Chronic Current Visit: Yes Qualifiers: Code(s): T81.89XA - Other complications of procedures, not elsewhere classified, initial encounter (2) Lymphedema of both lower extremities Status: Acute Current Visit: No Code(s): I89.0 - Lymphedema, not elsewhere classified (3) Diabetic neuropathy Status: Chronic Current Visit: No Code(s): E11.40 - Type 2 diabetes mellitus with diabetic neuropathy, unspecified (4) History of necrotising fasciitis Status: Chronic Current Visit: No Code(s): Z87.39 - Personal history of other diseases of the musculoskeletal system and connective tissue (5) Morbid obesity Status: Chronic Current Visit: No Code(s): E66.01 - Morbid (severe) obesity due to excess calories (6) Type 2 diabetes mellitus Status: Chronic Current Visit: No Qualifiers: Code(s): E11.9 - Type 2 diabetes mellitus without complications Type of Wound Date of Service: 06/04/19 Chief Complaint: Nonhealing wound status post surgical excision of necrotizing fasciitis left groin History of Wound: 46-year-old white male who presents to the wound healing center today with complaint of left groin ulceration status post surgical excision of necrotizing fasciitis. He is a past medical history which is significant for that of type 2 diabetes mellitus, gout, diabetic neuropathy, schizophrenia, bilateral lymphedema, and schizophrenia. The patient states that what initially started as a pimple in his left groin progressed to necrotizing fasciitis and he had to have this surgically debrided in April 2017. He was admitted to [facility] for 2 weeks and then [facility] for 6 weeks afterwards. He states that the groin ulcer which extends to his left lower abdomen has been slowly improving and he has been doing daily Aquacel AG dressings with an ABD for the drainage. He does state that he has had 3 wound vacs in the past which were unable to be utilized due to the location of his wound. He denies any foul-smelling discharge or systemic signs of infection at this time. He is seen today as a courtesy visit for Gianni Neil CNP. He is tolerating dressings and denies any increase in drainage. He has been also using sweat beater to his groin area to prevent moisture. The patient otherwise denies any fever, chills, nausea, vomiting, shortness of breath, chest pain or pressure, palpitations, orthopnea, syncope or presyncopal episodes. Progress of Wound: Left groin wound is stable in size and left lateral abdominal fold ulcer and left medial groin cluster ulceration remains healed.no new concerns, was approved for amnioexcel which was applied today - Physical Exam Vital Signs Temp Pulse Resp BP 97 F L 77 18 154/89 H 06/04/19 15:48 06/04/19 15:48 06/04/19 15:48 06/04/19 15:48 General: Alert, Oriented x3, Cooperative, No apparent distress HEENT: Atraumatic Oral: Moist Mucosa Lungs: Clear to auscultation, Normal air movement Cardiovascular: Regular rate Abdomen: Soft, Non Tender, Obese Extremities: No clubbing, No cyanosis Skin: Ulcer/ Wound - See nursing documentation, slough and devitalized tissue present to left groin ulcer Wound Measurements and Assessment WC - Nurse 1 - General Ulcer Measurement Start: 05/28/19 15:46 Freq: Status: Active Protocol: Activity Type Activity Date Activity User E-Sign Co-Sign Detail Recorded Client Recorded Date Recorded By Document 06/04/19 15:48 RB [id number] 06/04/19 15:50 RB 06/04/19 15:48 Wound Center Nurse 1 [Ulcer Assessment] #1- LEFT GROIN- POST OP -Combined with other wound No -Current Size (cm) - Length 1.7 -Current Size (cm) - Width 11 -Current Size (cm) - Depth 0.2 -Total Square Cm 18.7 -Tunneling No -Undermining/Tunneling No -Circular Undermining No -Exudate Amt Medium -Exudate Type Serosanguineous -Wound Margin Thickened & Rolled Under -Granulation Amt Medium (34-66%) -Granulation Quality [place] -Slough/Fibrin Yes -Necrosis Amt Small (1-33%) -Necrotic Tissue Type Adherent Slough -Structure Exposed N/A -Texture (Inessa-wound Skin Appearance) Assessed, Scarring -Moisture (Inessa-wound Skin Appearance Maceration ) -Color (Inessa-wound Skin Appearance) Assessed -Temperature (Inessa-wound Skin No Abnormality Appearance) (Pt Warm) -Tenderness on Palpation (Inessa-wound No Skin Appearance) -Ulcer Cleansing Wound Cleanser -Foul Odor after Cleansing No -Anesthetic Used 4% Lidocaine Solution - Nurse 2 - General Ulcer CM Notes Start: 05/28/19 15:46 Freq: Status: Active Protocol: Activity Type Activity Date Activity User E-Sign Co-Sign Detail Recorded Client Recorded Date Recorded By Document 06/04/19 15:57 MW [id number] 06/04/19 16:11 MW 06/04/19 15:57 Wound Center Nurse 2 [Procedure/Treatment] -Time 15:57 -Correct Patient Yes -Correct Side, Site, Position Yes -Correct Procedure Yes -Procedure Performed Yes -Type of Procedure Debridement -Clinical Debridement Subcutaneous -Post Debridement Size (cm) - Length 1.8 -Post Debridement Size (cm) - Width 11.6 -Post Debridement Size (cm) - Depth 0.1 -Total Square Cm 20.88 -Wound/Ulcer Outcome Not Healed -Ulcer Cleansing Rinsed/ Irrigated with Saline -Foul Odor after Cleansing No -Bioengineered Tissue No -Expiration Date 01/24/24 -Product Lot Number [id number] -Percent Used 100 -Saline Lot Number [id number] -Bleeding Controlled with Pressure -Other AMNIOEXCEL 4X8 (32 UNITS) -Offloading No -Treatment Response Procedure Tolerated Well [See Physician Procedure note for Specifics] Pain Scale: 0-10 Numeric [Pain] -Is Patient Pain Free? Yes Neurological: Neuro grossly intact Psych/Mental Status: Normal Affect, Appropriate, Alert and oriented to time, place, person, mood and affect Debridement Note Post-Debridement Measurements/Treatment - Nurse 2 - General Ulcer CM Notes Start: 05/28/19 15:46 Freq: Status: Active Protocol: Activity Type Activity Date Activity User E-Sign Co-Sign Detail Recorded Client Recorded Date Recorded By Document 05/28/19 16:00 MW [id number] 05/28/19 16:08 MW Document 06/04/19 15:57 MW [id number] 06/04/19 16:11 MW 05/28/19 06/04/19 16:00 15:57 Wound Center Nurse 2 #1- LEFT GROIN- POST OP -Time 16:00 15:57 -Correct Patient Yes Yes -Correct Side, Site, Position Yes Yes -Correct Procedure Yes Yes -Procedure Performed Yes Yes -Type of Procedure Debridement Debridement -Clinical Debridement Subcutaneous Subcutaneous -Post Debridement Size (cm) - Length 1.7 1.8 -Post Debridement Size (cm) - Width 11.0 11.6 -Post Debridement Size (cm) - Depth 0.1 0.1 -Total Square Cm 18.70 20.88 -Wound/Ulcer Outcome Not Healed Not Healed -Ulcer Cleansing Rinsed/ Rinsed/ Irrigated with Irrigated with Saline Saline -Foul Odor after Cleansing No No -Bioengineered Tissue No -Expiration Date 01/02/24 01/24/24 -Product Lot Number [id number] -Percent Used 100 100 -Saline Lot Number [id number] -Bleeding Controlled with Pressure -Other amnioexcel AMNIOEXCEL 4X8 4x8cm -32 units (32 UNITS) -Offloading No No -Treatment Response Procedure Procedure Tolerated Well Tolerated Well Pain Scale: 0-10 Numeric Is Patient Pain Free? Yes Yes Wound debrided: Nonhealing ulcer left groin Type of Debridement: Excisional debridement Anesthesia Used: 5% Lidocaine Gel Depth: in the subcutaneous layer Percentage of wound debrided: 100 Instrument Used: 5mm curette Tissue Removed: Slough and devitalized tissue Severity: Fat Layer Exposed Amount of bleeding with debridement: Mild Bleeding Controlled with: Pressure Patient tolerated procedure well Assessment/Plan Active Problems Non-healing surgical wound of left groin (Chronic) Assessment: Nonhealing postsurgical wound left groin status post surgical excision of necrotizing fasciitis. Bilateral lower extremity edema. Morbid obesity. Type 2 diabetes mellitus Plan: The patient was seen and examined at the wound center today and was updated on the plan of care. A subcutaneous debridement was performed today. The patient tolerated the procedure well. The patients wound care will consist of: Amnioexcel # 2 was applied to left groin wound, 100% of the product was utilized and secured with Steri's and wound veil, change Karamax alginate every other day.Discussed to keep area dry. Did discuss proper drying mechanisms after showering to prevent excess moisture. Baseline bloodwork reviewed which demonstrated a slightly low pre-albumin and patient was advised to use Glucerna or high-protein with meals. Repeat lab work WNL. Prealbumin WNL now. Previous records were requested for continuity of care. Patient educated on the importance of diet on wound healing and instructed to increase protein and vitamin C intake. Patient verbalized understanding. Plastic surgery cons ultation - no surgery indicated. Did discuss with patient the importance of blood sugar control in wound healing, recent A1C in 02/2018 was 6.1. Patient to follow-up in 2 week or sooner if needed. Patient is on a complex wound plan. Given the delayed wound healing and the fact that he has failed standard wound care greater than 4 weeks will apply for an advanced skin substitute. This note was generated with [employer] dictation software. It may contain incorrect words, spelling, and punctuation that were not noted in checking the note before signing. Code Visit 150xxx-152xx: [id number] Skin sub graft trnk/arm/leg
[2019-06-11 15:25] VITALS: BP 133/85; PULSE 105; RESP 16
--- NOTE | 2019-06-11 20:26 | PN.PCM_ITS ---
(1) Non-healing surgical wound of left groin Status: Chronic Qualifiers: Code(s): T81.89XA - Other complications of procedures, not elsewhere classified, initial encounter (2) Lymphedema of both lower extremities Status: Acute Code(s): I89.0 - Lymphedema, not elsewhere classified (3) Diabetic neuropathy Status: Chronic Code(s): E11.40 - Type 2 diabetes mellitus with diabetic ne uropathy, unspecified (4) History of necrotising fasciitis Status: Chronic Code(s): Z87.39 - Personal history of other diseases of the musculoskeletal system and connective tissue (5) Morbid obesity Status: Chronic Code(s): E66.01 - Morbid (severe) obesity due to excess calories (6) Type 2 diabetes mellitus Status: Chronic Qualifiers: Code(s): E11.9 - Type 2 diabetes mellitus without complications Type of Wound Date of Service: 06/11/19 Chief Complaint: Nonhealing wound status post surgical excision of necrotizing f asciitis left groin History of Wound: 46-year-old white male who presents to the wound healing center today with complaint of left groin ulceration status post surgical excisi on of necrotizing fasciitis. He is a past medical history which is significant for that of type 2 diabetes mellitus, gout, diabetic neuropathy, schizophrenia, bilateral lymphedema, and schizophrenia. The patient states that what initially started as a pimple in his left groin progressed to necrotizing fasciitis and he had to have this surgically debrided in April 2017. He was admitted to [facility] for 2 weeks and then [facility] for 6 weeks afterwards. He states that the groin ulcer which extends to his left lower abdomen has been slowly improving and he has been doing daily Aquacel AG dressings with an ABD for the drainage. He does state that he has had 3 wound vacs in the past which were unable to be utilized due to the location of his wound. He denies any foul- smelling discharge or systemic signs of infection at this time. He is seen today as a courtesy visit for Gianni Neil CNP. He is tolerating dressings and denies any increase in drainage. He has been also using sweat beater to his groin area to prevent moisture. The patient otherwise denies any fever, chills, nausea, vomiting, shortness of breath, chest pain or pressure, palpitations, orthopnea, syncope or presyncopal episodes. Progress of Wound: Left groin wound did well with amnioexcel, However due to maceration and excoriation will hold off on reapplication, and left medial groin cluster ulceration remains healed.no new concerns - Physical Exam Vital Signs Temp Pulse Resp BP 97 F L 105 H 16 133/85 H 06/04/19 15:48 06/11/19 15:25 06/11/19 15:25 06/11/19 15:25 General: Alert, Oriented x3, Cooperative, No apparent distress HEENT: Atraumatic Oral: Moist Mucosa Lungs: Clear to auscultation Cardiovascular: Regular rate Abdomen: Soft, Non Tender Extremities: No clubbing, No cyanosis, No edema Skin: Ulcer/ Wound - See nursing documentation, slough and devitalized tissue present, no signs of infection at this time Neurological: Neuro grossly intact Psych/Mental Status: Normal Affect, Appropriate, Alert and oriented to time, place, person, mood and affect Debridement Note Post-Debridement Measurements/Treatment WC - Nurse 2 - General Ulcer CM Notes Start: 05/28/19 15:46 Freq: Status: Active Protocol: Activity Type Activity Date Activity User E-Sign Co-Sign Detail Recorded Client Recorded Date Recorded By Document 05/28/19 16:00 MW [id number] 05/28/19 16:08 MW Document 06/04/19 15:57 MW [id number] 06/04/19 16:11 MW Document 06/11/19 15:52 MW [id number] 06/11/19 15:55 MW 05/28/19 06/04/19 06/11/19 16:00 15:57 15:52 Wound Center Nurse 2 #1- LEFT GROIN- POST OP -Time 16:00 15:57 15:52 -Correct Patient Yes Yes Yes -Correct Side, Site, Position Yes Yes Yes -Correct Procedure Yes Yes Yes -Procedure Performed Yes Yes Yes -Type of Procedure Debridement Debridement Debridement -Clinical Debridement Subcutaneous Subcutaneous Subcutaneous -Post Debridement Size (cm) - Length 1.7 1.8 2.0 -Post Debridement Size (cm) - Width 11.0 11.6 9.5 -Post Debridement Size (cm) - Depth 0.1 0.1 0.1 -Total Square Cm 18.70 20.88 19.00 -Wound/Ulcer Outcome Not Healed Not Healed Not Healed -Ulcer Cleansing Rinsed/ Rinsed/ Rinsed/ Irrigated with Irrigated with Irrigated with Saline Saline Saline -Foul Odor after Cleansing No No No -Bioengineered Tissue No No -Expiration Date 01/02/24 01/24/24 -Product Lot Number [id number] -Percent Used 100 100 -Saline Lot Number [id number] -Bleeding Controlled with Pressure Pressure -Other amnioexcel AMNIOEXCEL 4X8 4x8cm -32 units (32 UNITS) -Offloading No No No -Treatment Response Procedure Procedure Procedure Tolerated Well Tolerated Well Tolerated Well Pain Scale: 0-10 Numeric Is Patient Pain Free? Yes Yes Yes Wound debrided: Left groin ulceration Laterality: Left Type of Debridement: Excisional debridement Anesthesia Used: 5% Lidocaine Gel Depth: in the subcutaneous layer Percentage of wound debrided: 100 Instrument Used: 5mm curette Tissue Removed: Slough and devitalized tissue Severity: Fat Layer Exposed Amount of bleeding with debridement: Mild Bleeding Controlled with: Pressure Patient tolerated procedure well Assessment/Plan Assessment: Nonhealing postsurgical wound left groin status post surgical excision of necrotizing fasciitis. Bilateral lower extremity edema. Morbid obesity. Type 2 diabetes mellitus Plan: The patient was seen and examined at the wound center today and was updated on the plan of care. A subcutaneous debridement was performed today. The patient tolerated the procedure well. The patients wound care will consist of: Application of Karamax alginate every day.Discussed to keep area dry. Did discuss proper drying mechanisms after showering to prevent excess moisture. Baseline bloodwork reviewed which demonstrated a slightly low pre-albumin and patient was advised to use Glucerna or high-protein with meals. Repeat lab work WNL. Prealbumin WNL now. Previous records were requested for continuity of care. Patient educated on the importance of diet on wound healing and instructed to increase protein and vitamin C intake. Patient verbalized understanding. Plastic surgery consultation - no surgery indicated. Did discuss with patient the importance of blood sugar control in wound healing, recent A1C in 02/2018 was 6.1. Patient to follow-up in 2 week or sooner if needed. Patient is on a complex wound plan. Given the delayed wound healing and the fact that he has failed standard wound care greater than 4 weeks will apply for an advanced skin substitute. This note was generated with [employer] software. It may contain incorrect words, spelling, and punctuation that were not noted in checking the note before signing. Code Visit 111xxx-113xx: [id number] Jessica subq tissue 20 sq cm/<
[2019-06-18 14:53] VITALS: BP 146/95; PULSE 82; RESP 16; TEMP 36.1
--- NOTE | 2019-06-18 17:42 | PCM.WC.PN ---
(1) Non-healing surgical wound of left groin Status: Chronic Current Visit: Yes Qualifiers: Code(s): T81.89XA - Other complications of procedures, not elsewhere classified, initial encounter (2) Lymphedema of both lower extremities Status: Acute Current Visit: No Code(s): I89.0 - Lymphedema, not elsewhere classified (3) Diabetic neuropathy Status: Chronic Current Visit: No Code(s): E11.40 - Type 2 diabetes mellitus with diabetic neuropathy, unspecified (4) History of necrotising fasciitis Status: Chronic Current Visit: No Code(s): Z87.39 - Personal history of other diseases of the musculoskeletal system and connective tissue (5) Morbid obesity Status: Chronic Current Visit: No Code(s): E66.01 - Morbid (severe) obesity due to excess calories (6) Type 2 diabetes mellitus Status: Chronic Current Visit: No Qualifiers: Code(s): E11.9 - Type 2 diabetes mellitus without complications Type of Wound Date of Service: 06/18/19 Chief Complaint: Nonhealing wound status post surgical excision of necrotizing fasciitis left groin History of Wound: 46-year-old white male who presents to the wound healing center today with complaint of left groin ulceration status post surgical excision of necrotizing fasciitis. He is a past medical history which is significant for that of type 2 diabetes mellitus, gout, diabetic neuropathy, schizophrenia, bilateral lymphedema, and schizophrenia. The patient states that what initially started as a pimple in his left groin progressed to necrotizing fasciitis and he had to have this surgically debrided in April 2017. He was admitted to [facility] for 2 weeks and then [facility] for 6 weeks afterwards. He states that the groin ulcer which extends to his left lower abdomen has been slowly improving and he has been doing daily Aquacel AG dressings with an ABD for the drainage. He does state that he has had 3 wound vacs in the past which were unable to be utilized due to the location of his wound. He denies any foul-smelling discharge or systemic signs of infection at this time. He is seen today as a courtesy visit for Gianni Neil CNP. He is tolerating dressings and denies any increase in drainage. He has been also using sweat beater to his groin area to prevent moisture. The patient otherwise denies any fever, chills, nausea, vomiting, shortness of breath, chest pain or pressure, palpitations, orthopnea, syncope or presyncopal episodes. Progress of Wound: Left groin wound Stable, maceration has improved, and left medial groin cluster ulceration remains healed.no new concerns - Physical Exam Vital Signs Temp Pulse Resp BP 96.9 F L 82 16 146/95 H 06/18/19 14:53 06/18/19 14:53 06/18/19 14:53 06/18/19 14:53 General: Alert, Oriented x3, Cooperative, No apparent distress HEENT: Atraumatic Oral: Moist Mucosa Lungs: Clear to auscultation, Normal air movement Cardiovascular: Regular rate, Regular Rhythm Abdomen: Soft, Non Tender Extremities: No clubbing, No cyanosis, No edema Skin: Ulcer/ Wound Wound Measurements and Assessment WC - Nurse 1 - General Ulcer Measurement Start: 05/28/19 15:46 Freq: Status: Active Protocol: Activity Type Activity Date Activity User E-Sign Co-Sign Detail Recorded Client Recorded Date Recorded By Document 06/18/19 14:53 [facility] [id number] 06/18/19 14:58 [facility] 06/18/19 14:53 Wound Center Nurse 1 [Ulcer Assessment] #1- LEFT GROIN- POST OP -Combined with other wound No -Current Size (cm) - Length 8.5 -Current Size (cm) - Width 1.3 -Current Size (cm) - Depth 0.2 -Total Square Cm 11.05 -Photo Taken No -Epithelialization None Present -Tunneling No -Undermining/Tunneling No -Circular Undermining No -Exudate Amt Small -Exudate Type Serous -Wound Margin Distinct, Outline Attached -Granulation Amt Large (67-100%) -Granulation Quality Pale,Red -Slough/Fibrin No -Necrosis Amt None Present (0 %) -Texture (Inessa-wound Skin Appearance) Assessed, Scarring -Moisture (Inessa-wound Skin Appearance Assessed ) -Color (Inessa-wound Skin Appearance) Assessed -Temperature (Inessa-wound Skin No Abnormality Appearance) (Pt Warm) -Tenderness on Palpation (Inessa-wound No Skin Appearance) -Ulcer Cleansing soapy water -Foul Odor after Cleansing No -Anesthetic Used 4% Lidocaine Solution WC - Nurse 2 - General Ulcer CM Notes Start: 05/28/19 15:46 Freq: Status: Active Protocol: Activity Type Activity Date Activity User E-Sign Co-Sign Detail Recorded Client Recorded Date Recorded By Document 06/18/19 15:17 [id number] 06/18/19 15:18 06/18/19 15:17 Wound Center Nurse 2 [Procedure/Treatment] -Time 15:17 -Correct Patient Yes -Correct Side, Site, Position Yes -Correct Procedure Yes -Procedure Performed Yes -Type of Procedure Debridement -Clinical Debridement Subcutaneous -Post Debridement Size (cm) - Length 2 -Post Debridement Size (cm) - Width 9 -Post Debridement Size (cm) - Depth 0.1 -Total Square Cm 18 -Wound/Ulcer Outcome Not Healed -Ulcer Cleansing Rinsed/ Irrigated with Saline -Foul Odor after Cleansing No -Bioengineered Tissue No -Bleeding Controlled with Pressure -Offloading No -Treatment Response Procedure Tolerated Well [See Physician Procedure note for Specifics] Pain Scale: 0-10 Numeric [Pain] -Is Patient Pain Free? Yes Neurological: Neuro grossly intact Psych/Mental Status: Normal Affect, Appropriate, Alert and oriented to time, place, person, mood and affect Debridement Note Post-Debridement Measurements/Treatment WC - Nurse 2 - General Ulcer CM Notes Start: 05/28/19 15:46 Freq: Status: Active Protocol: Activity Type Activity Date Activity User E-Sign Co-Sign Detail Recorded Client Recorded Date Recorded By Document 05/28/19 16:00 MW [id number] 05/28/19 16:08 MW Document 06/04/19 15:57 MW [id number] 06/04/19 16:11 MW Document 06/11/19 15:52 MW [id number] 06/11/19 15:55 MW Document 06/18/19 15:17 [id number] 06/18/19 15:18 05/28/19 06/04/19 06/11/19 16:00 15:57 15:52 Wound Center Nurse 2 #1- LEFT GROIN- POST OP -Time 16:00 15:57 15:52 -Correct Patient Yes Yes Yes -Correct Side, Site, Position Yes Yes Yes -Correct Procedure Yes Yes Yes -Procedure Performed Yes Yes Yes -Type of Procedure Debridement Debridement Debridement -Clinical Debridement Subcutaneous Subcutaneous Subcutaneous -Post Debridement Size (cm) - Length 1.7 1.8 2.0 -Post Debridement Size (cm) - Width 11.0 11.6 9.5 -Post Debridement Size (cm) - Depth 0.1 0.1 0.1 -Total Square Cm 18.70 20.88 19.00 -Wound/Ulcer Outcome Not Healed Not Healed Not Healed -Ulcer Cleansing Rinsed/ Rinsed/ Rinsed/ Irrigated with Irrigated with Irrigated with Saline Saline Saline -Foul Odor after Cleansing No No No -Bioengineered Tissue No No -Expiration Date 01/02/24 01/24/24 -Product Lot Number [id number] -Percent Used 100 100 -Saline Lot Number [id number] -Bleeding Controlled with Pressure Pressure -Other amnioexcel AMNIOEXCEL 4X8 4x8cm -32 units (32 UNITS) -Offloading No No No -Treatment Response Procedure Procedure Procedure Tolerated Well Tolerated Well Tolerated Well Pain Scale: 0-10 Numeric Is Patient Pain Free? Yes Yes Yes 06/18/19 15:17 Wound Center Nurse 2 #1- LEFT GROIN- POST OP -Time 15:17 -Correct Patient Yes -Correct Side, Site, Position Yes -Correct Procedure Yes -Procedure Performed Yes -Type of Procedure Debridement -Clinical Debridement Subcutaneous -Post Debridement Size (cm) - Length 2 -Post Debridement Size (cm) - Width 9 -Post Debridement Size (cm) - Depth 0.1 -Total Square Cm 18 -Wound/Ulcer Outcome Not Healed -Ulcer Cleansing Rinsed/ Irrigated with Saline -Foul Odor after Cleansing No -Bioengineered Tissue No -Expiration Date -Product Lot Number -Percent Used -Saline Lot Number -Bleeding Controlled with Pressure -Other -Offloading No -Treatment Response Procedure Tolerated Well Pain Scale: 0-10 Numeric Is Patient Pain Free? Yes Wound debrided: Left groin ulceration, no signs of infection at this time Laterality: Left Type of Debridement: Excisional debridement Anesthesia Used: 5% Lidocaine Gel Depth: in the subcutaneous layer Percentage of wound debrided: 100 Instrument Used: 5mm curette Tissue Removed: Slough and devitalized tissue Severity: Fat Layer Exposed Amount of bleeding with debridement: Mild Bleeding Controlled with: Pressure Patient tolerated procedure well Assessment/Plan Active Problems Non-healing surgical wound of left groin (Chronic) Assessment: Nonhealing postsurgical wound left groin status post surgical excision of necrotizing fasciitis. Bilateral lower extremity edema. Morbid obesity. Type 2 diabetes mellitus Plan: The patient was seen and examined at the wound center today and was updated on the plan of care. A subcutaneous debridement was performed today. The patient tolerated the procedure well. The patients wound care will consist of: Application of Karamax alginate every day.Discussed to keep area dry. Did discuss proper drying mechanisms after showering to prevent excess moisture. Baseline bloodwork reviewed which demonstrated a slightly low pre-albumin and patient was advised to use Glucerna or high-protein with meals. Repeat lab work WNL. Prealbumin WNL now. Previous records were requested for continuity of care. Patient educated on the importance of diet on wound healing and instructed to increase protein and vitamin C intake. Patient verbalized understanding. Plastic surgery consultation - no surgery indicated. Did discuss with patient the importance of blood sugar control in wound healing, recent A1C in 02/2018 was 6.1. Patient to follow-up in 2 week or sooner if needed. Patient is on a complex wound plan. Given the delayed wound healing and the fact that he has failed standard wound care greater than 4 weeks will apply for an advanced skin substitute. This note was generated with [employer] dictation software. It may contain incorrect words, spelling, and punctuation that were not noted in checking the note before signing. Code Visit 111xxx-113xx: [id number] Jessica subq tissue 20 sq cm/<
== END 2019-06-20 23:59 ==
LOC: WC 15:30
PROVIDERS: Family Provider Family Medicine; PCP Family Medicine; Visit Provider Nurse Practitioner Family
DX: T81.89XA Other complications of procedures, not elsewhere classified, initial encounter (principal); Y83.8 Other surgical procedures as the cause of abnormal reaction of the patient, or of later complication, without mention of misadventure at the time of the procedure; I89.0 Lymphedema, not elsewhere classified; E11.40 Type 2 diabetes mellitus with diabetic neuropathy, unspecified; Z87.39 Personal history of other diseases of the musculoskeletal system and connective tissue; E66.01 Morbid (severe) obesity due to excess calories; Z71.3 Dietary counseling and surveillance; R60.0 Localized edema; Z68.43 Body mass index [BMI] 50.0-59.9, adult
CPT/HCPCS: 11042; 15271; 15272; Q4137

== ENCOUNTER 2019-07-16 13:00 | Outpatient (RCR) | payer MEDICARE, SELFPAY ==
[2019-06-21 00:25] VITALS: BP 146/95; PULSE 82; RESP 16; TEMP 36.1
[2019-06-25 14:29] VITALS: BP 132/86; PULSE 90; RESP 16; TEMP 36.1
--- NOTE | 2019-06-25 18:26 | PN.PCM_ITS ---
(1) Non-healing surgical wound of left groin Status: Chronic Qualifiers: Code(s): T81.89XA - Other complications of procedures, not elsewhere classified, initial encounter (2) Lymphedema of both lower extremities Status: Acute Code(s): I89.0 - Lymphedema, not elsewhere classified (3) History of necrotising fasciitis Status: Chronic Code(s): Z87.39 - Personal history of other diseases of the musculoskeletal system and connective tissue (4) Morbid obesity Status: Chronic Code(s): E66.01 - Morbid (severe) obesity due to excess calories (5) Type 2 diabetes mellitus Status: Chronic Qualifiers: Code(s): E11.9 - Type 2 diabetes mellitus without complications Type of Wound Date of Service: 06/25/19 Chief Complaint: Nonhealing wound status post surgical excision of necrotizing fasciitis left groin History of Wound: 46-year-old white male who presents to the wound healing center today with complaint of left groin ulceration status post surgical excision of necrotizing fasciitis. He is a past medical history which is significant for that of type 2 diabetes mellitus, gout, diabetic neuropathy, schizophrenia, bilateral lymphedema, and schizophrenia. The patient states that what initially started as a pimple in his left groin progressed to necrotizing fasciitis and he had to have this surgically debrided in April 2017. He was admitted to [facility] for 2 weeks and then [facility] for 6 weeks afterwards. He states that the groin ulcer which extends to his left lower abdomen has been slowly improving and he has been doing daily Aquacel AG dressings with an ABD for the drainage. He does state that he has had 3 wound vacs in the past which were unable to be utilized due to the location of his wound. He denies any foul-smelling discharge or systemic signs of infection at this time. He is seen today as a courtesy visit for Gianni Neil CNP. He is tolerating dressings and denies any increase in drainage. He has been also using sweat beater to his groin area to prevent moisture. The patient otherwise denies any fever, chills, nausea, vomiting, shortness of breath, chest pain or pressure, palpitations, orthopnea, syncope or presyncopal episodes. Progress of Wound: Left groin wound Stable, maceration has improved, and left medial groin cluster ulceration remains healed.no new concerns - Physical Exam Vital Signs Temp Pulse Resp BP 97 F L 90 16 132/86 H 06/25/19 14:29 06/25/19 14:29 06/25/19 14:29 06/25/19 14:29 General: Alert, Oriented x3, Cooperative, No apparent distress HEENT: Atraumatic Oral: Moist Mucosa Lungs: Clear to auscultation, Normal air movement Cardiovascular: Regular rate Abdomen: Soft, Non Tender Extremities: No clubbing, No cyanosis, No edema Skin: Ulcer/ Wound - See nursing documentation, slough and devitalized tissue present, no signs of infection at this time Neurological: Neuro grossly intact Psych/Mental Status: Normal Affect, Appropriate, Alert and oriented to time, place, person, mood and affect Debridement Note Post-Debridement Measurements/Treatment WC - Nurse 2 - General Ulcer CM Notes Start: 06/25/19 14:29 Freq: Status: Active Protocol: Activity Type Activity Date Activity User E-Sign Co-Sign Detail Recorded Client Recorded Date Recorded By Document 06/25/19 15:08 MW [id number] 06/25/19 15:10 MW 06/25/19 15:08 Wound Center Nurse 2 #1- LEFT GROIN- POST OP -Time 15:09 -Correct Patient Yes -Correct Side, Site, Position Yes -Correct Procedure Yes -Procedure Performed Yes -Type of Procedure Debridement -Clinical Debridement Subcutaneous -Post Debridement Size (cm) - Length 1.8 -Post Debridement Size (cm) - Width 8.0 -Post Debridement Size (cm) - Depth 0.1 -Total Square Cm 14.40 -Wound/Ulcer Outcome Not Healed -Ulcer Cleansing Rinsed/ Irrigated with Saline -Foul Odor after Cleansing No -Bioengineered Tissue No -Bleeding Controlled with Pressure -Offloading No -Treatment Response Procedure Tolerated Well Pain Scale: 0-10 Numeric Is Patient Pain Free? Yes Wound debrided: Left groin nonhealing ulcer status post necrotizing fasciitis Type of Debridement: Excisional debridement Anesthesia Used: 5% Lidocaine Gel Depth: in the subcutaneous layer Percentage of wound debrided: 100 Instrument Used: 5mm curette Tissue Removed: Slough and devitalized tissue Severity: Fat Layer Exposed Amount of bleeding with debridement: Mild Bleeding Controlled with: Pressure Patient tolerated procedure well Assessment/Plan Assessment: Nonhealing postsurgical wound left groin status post surgical excision of necrotizing fasciitis. Bilateral lower extremity edema. Morbid obesity. Type 2 diabetes mellitus Plan: The patient was seen and examined at the wound center today and was updated on the plan of care. A subcutaneous debridement was performed today. The patient tolerated the procedure well. The patients wound care will consist of: Application of Karamax alginate every day.Discussed to keep area dry. Did discuss proper drying mechanisms after showering to prevent excess moisture. Baseline bloodwork reviewed which demonstrated a slightly low pre-albumin and patient was advised to use Glucerna or high-protein with meals. Repeat lab work WNL. Prealbumin WNL now. Previous records were requested for continuity of care. Patient educated on the importance of diet on wound healing and instructed to increase protein and vitamin C intake. Patient verbalized understanding. Plastic surgery consultation - no surgery indicated. Did discuss with patient the importance of blood sugar control in wound healing, recent A1C in 02/2018 was 6.1. Patient to follow-up in 2 week or sooner if needed. Patient is on a complex wound plan. Given the delayed wound healing and the fact that he has failed standard wound care greater than 4 weeks will apply for an advanced skin substitute. This note was generated with [employer] dictation software. It may contain incorrect words, spelling, and punctuation that were not noted in checking the note before signing. 111xxx-113xx: [id number] Jessica subq tissue 20 sq cm/<
[2019-07-02 11:48] VITALS: BP 146/78; PULSE 81; RESP 18; TEMP 35.3
--- NOTE | 2019-07-02 15:19 | PCM.WC.PN ---
(1) Non-healing surgical wound of left groin Status: Chronic Qualifiers: Code(s): T81.89XA - Other complications of procedures, not elsewhere classified, initial encounter (2) Lymphedema of both lower extremities Status: Acute Code(s): I89.0 - Lymphedema, not elsewhere classified (3) History of necrotising fasciitis Status: Chronic Code(s): Z87.39 - Personal history of other diseases of the musculoskeletal system and connective tissue (4) Morbid obesity Status: Chronic Code(s): E66.01 - Morbid (severe) obesity due to excess calories (5) Type 2 diabetes mellitus Status: Chronic Qualifiers: Code(s): E11.9 - Type 2 diabetes mellitus without complications Type of Wound Date of Service: 07/02/19 Chief Complaint: Nonhealing wound status post surgical excision of necrotizing fasciitis left groin History of Wound: 46-year-old white male who presents to the wound healing center today with complaint of left groin ulceration status post surgical excision of necrotizing fasciitis. He is a past medical history which is significant for that of type 2 diabetes mellitus, gout, diabetic neuropathy, schizophrenia, bilateral lymphedema, and schizophrenia. The patient states that what initially started as a pimple in his left groin progressed to necrotizing fasciitis and he had to have this surgically debrided in April 2017. He was admitted to [facility] for 2 weeks and then [facility] for 6 weeks afterwards. He states that the groin ulcer which extends to his left lower abdomen has been slowly improving and he has been doing daily Aquacel AG dressings with an ABD for the drainage. He does state that he has had 3 wound vacs in the past which were unable to be utilized due to the location of his wound. He denies any foul-smelling discharge or systemic signs of infection at this time. He is seen today as a courtesy visit for Gianni Neil CNP. He is tolerating dressings and denies any increase in drainage. He has been also using sweat beater to his groin area to prevent moisture. The patient otherwise denies any fever, chills, nausea, vomiting, shortness of breath, chest pain or pressure, palpitations, orthopnea, syncope or presyncopal episodes. Progress of Wound: Left groin wound Stable, maceration has improved, and left medial groin cluster ulceration remains healed.no new concerns - Physical Exam Vital Signs Temp Pulse Resp BP 95.6 F L 81 18 146/78 H 07/02/19 11:48 07/02/19 11:48 07/02/19 11:48 07/02/19 11:48 General: Alert, Oriented x3, Cooperative, No apparent distress HEENT: Atraumatic Oral: Moist Mucosa Lungs: Clear to auscultation, Normal air movement Cardiovascular: Regular rate, Regular Rhythm Abdomen: Soft, Non Tender Extremities: No clubbing, No cyanosis Skin: Ulcer/ Wound - See nursing documentation, slough and devitalized tissue present, no signs of infection at this time Wound Measurements and Assessment WC - Nurse 1 - General Ulcer Measurement Start: 06/25/19 14:29 Freq: Status: Active Protocol: Activity Type Activity Date Activity User E-Sign Co-Sign Detail Recorded Client Recorded Date Recorded By Document 07/02/19 11:48 DV [id number] 07/02/19 11:53 DV 07/02/19 11:48 Wound Center Nurse 1 [Ulcer Assessment] #1- LEFT GROIN- POST OP -Combined with other wound No -Current Size (cm) - Length 1.0 -Current Size (cm) - Width 9.0 -Current Size (cm) - Depth 0.2 -Total Square Cm 9.00 -Photo Taken No -Epithelialization None Present -Tunneling No -Undermining/Tunneling No -Circular Undermining No -Classification - Thickness Full Thickness without Exposed Support Structure -Exudate Amt Large -Exudate Type Serous -Wound Margin Flat & Intact -Granulation Amt None Present (0 %) -Granulation Quality N/A -Slough/Fibrin Yes -Necrosis Amt Large (67-100%) -Necrotic Tissue Type Adherent Slough -Structure Exposed None/Limited to Skin Breakdown -Texture (Inessa-wound Skin Appearance) Assessed, Scarring -Moisture (Inessa-wound Skin Appearance Assessed, ) Maceration, Weeping -Color (Inessa-wound Skin Appearance) No Abnormality, Assessed -Temperature (Inessa-wound Skin No Abnormality Appearance) (Pt Warm) -Tenderness on Palpation (Inessa-wound No Skin Appearance) -Ulcer Cleansing Rinsed/ Irrigated with Saline -Foul Odor after Cleansing No -Anesthetic Used 4% Lidocaine Solution WC - Nurse 2 - General Ulcer CM Notes Start: 06/25/19 14:29 Freq: Status: Active Protocol: Activity Type Activity Date Activity User E-Sign Co-Sign Detail Recorded Client Recorded Date Recorded By Document 07/02/19 12:06 [id number] 07/02/19 12:08 07/02/19 12:06 Wound Center Nurse 2 [Procedure/Treatment] -Time 12:06 -Correct Patient Yes -Correct Side, Site, Position Yes -Correct Procedure Yes -Procedure Performed Yes -Type of Procedure Debridement -Clinical Debridement Subcutaneous -Post Debridement Size (cm) - Length 1.5 -Post Debridement Size (cm) - Width 9.0 -Post Debridement Size (cm) - Depth 0.2 -Total Square Cm 13.50 -Wound/Ulcer Outcome Not Healed -Ulcer Cleansing Rinsed/ Irrigated with Saline -Foul Odor after Cleansing No -Bioengineered Tissue No -Bleeding Controlled with Pressure -Offloading No -Treatment Response Procedure Tolerated Well [See Physician Procedure note for Specifics] Pain Scale: 0-10 Numeric [Pain] -Is Patient Pain Free? Yes Neurological: Neuro grossly intact Psych/Mental Status: Normal Affect, Appropriate, Alert and oriented to time, place, person, mood and affect Debridement Note Post-Debridement Measurements/Treatment WC - Nurse 2 - General Ulcer CM Notes Start: 06/25/19 14:29 Freq: Status: Active Protocol: Activity Type Activity Date Activity User E-Sign Co-Sign Detail Recorded Client Recorded Date Recorded By Document 06/25/19 15:08 MW [id number] 06/25/19 15:10 MW Document 07/02/19 12:06 [id number] 07/02/19 12:08 06/25/19 07/02/19 15:08 12:06 Wound Center Nurse 2 #1- LEFT GROIN- POST OP -Time 15:09 12:06 -Correct Patient Yes Yes -Correct Side, Site, Position Yes Yes -Correct Procedure Yes Yes -Procedure Performed Yes Yes -Type of Procedure Debridement Debridement -Clinical Debridement Subcutaneous Subcutaneous -Post Debridement Size (cm) - Length 1.8 1.5 -Post Debridement Size (cm) - Width 8.0 9.0 -Post Debridement Size (cm) - Depth 0.1 0.2 -Total Square Cm 14.40 13.50 -Wound/Ulcer Outcome Not Healed Not Healed -Ulcer Cleansing Rinsed/ Rinsed/ Irrigated with Irrigated with Saline Saline -Foul Odor after Cleansing No No -Bioengineered Tissue No No -Bleeding Controlled with Pressure Pressure -Offloading No No -Treatment Response Procedure Procedure Tolerated Well Tolerated Well Pain Scale: 0-10 Numeric Is Patient Pain Free? Yes Yes Wound debrided: Left groin nonhealing ulcer Type of Debridement: Excisional debridement Anesthesia Used: 5% Lidocaine Gel Depth: in the subcutaneous layer Percentage of wound debrided: 100 Instrument Used: 5mm curette Tissue Removed: Slough and devitalized tissue Severity: Fat Layer Exposed Amount of bleeding with debridement: Mild Bleeding Controlled with: Pressure Patient tolerated procedure well Assessment/Plan Assessment: Nonhealing postsurgical wound left groin status post surgical excision of necrotizing fasciitis. Bilateral lower extremity edema. Morbid obesity. Type 2 diabetes mellitus Plan: The patient was seen and examined at the wound center today and was updated on the plan of care. A subcutaneous debridement was performed today. The patient tolerated the procedure well. The patients wound care will consist of: Application of Karamax alginate every day.Discussed to keep area dry. Did discuss proper drying mechanisms after showering to prevent excess moisture. Baseline bloodwork reviewed which demonstrated a slightly low pre-albumin and patient was advised to use Glucerna or high-protein with meals. Repeat lab work WNL. Prealbumin WNL now. Previous records were requested for continuity of care. Patient educated on the importance of diet on wound healing and instructed to increase protein and vitamin C intake. Patient verbalized understanding. Plastic surgery consultation - no surgery indicated. Did discuss with patient the importance of blood sugar control in wound healing, recent A1C in 02/2018 was 6.1. Patient to follow-up in 2 week or sooner if needed. Patient is on a complex wound plan. Given the delayed wound healing and the fact that he has failed standard wound care greater than 4 weeks will apply for an advanced skin substitute. This note was generated with [employer] software. It may contain incorrect words, spelling, and punctuation that were not noted in checking the note before signing. [id number]: [id number] Jessica subq tissue 20 sq cm/<
[2019-07-09 13:33] VITALS: BP 170/95; PULSE 74; RESP 18; TEMP 35.7
--- NOTE | 2019-07-09 14:18 | PCM.WC.PN ---
(1) Non-healing surgical wound of left groin Status: Chronic Qualifiers: Code(s): T81.89XA - Other complications of procedures, not elsewhere classified, initial encounter (2) Lymphedema of both lower extremities Status: Acute Code(s): I89.0 - Lymphedema, not elsewhere classified (3) History of necrotising fasciitis Status: Chronic Code(s): Z87.39 - Personal history of other diseases of the musculoskeletal system and connective tissue (4) Morbid obesity Status: Chronic Code(s): E66.01 - Morbid (severe) obesity due to excess calories (5) Type 2 diabetes mellitus Status: Chronic Qualifiers: Code(s): E11.9 - Type 2 diabetes mellitus without complications Type of Wound Date of Service: 07/09/19 Chief Complaint: Nonhealing wound status post surgical excision of necrotizing fasciitis left groin History of Wound: 46-year-old white male who presents to the wound healing center today with complaint of left groin ulceration status post surgical excision of necrotizing fasciitis. He is a past medical history which is significant for that of type 2 diabetes mellitus, gout, diabetic neuropathy, schizophrenia, bilateral lymphedema, and schizophrenia. The patient states that what initially started as a pimple in his left groin progressed to necrotizing fasciitis and he had to have this surgically debrided in April 2017. He was admitted to [facility] for 2 weeks and then [facility] for 6 weeks afterwards. He states that the groin ulcer which extends to his left lower abdomen has been slowly improving and he has been doing daily Aquacel AG dressings with an ABD for the drainage. He does state that he has had 3 wound vacs in the past which were unable to be utilized due to the location of his wound. He denies any foul-smelling discharge or systemic signs of infection at this time. He is seen today as a courtesy visit for Gianni Neil CNP. He is tolerating dressings and denies any increase in drainage. He has been also using sweat beater to his groin area to prevent moisture. The patient otherwise denies any fever, chills, nausea, vomiting, shortness of breath, chest pain or pressure, palpitations, orthopnea, syncope or presyncopal episodes. Progress of Wound: Left groin wound Stable, tolerating santyl, some maceration, and left medial groin cluster ulceration remains healed.no new concerns - Physical Exam Vital Signs Temp Pulse Resp BP 96.3 F L 74 18 170/95 H 07/09/19 13:33 07/09/19 13:33 07/09/19 13:33 07/09/19 13:33 General: Alert, Oriented x3, Cooperative, No apparent distress HEENT: Atraumatic Oral: Moist Mucosa Lungs: Clear to auscultation, Normal air movement Cardiovascular: Regular rate, Regular Rhythm Abdomen: Soft, Non Tender, Obese Extremities: No clubbing, No cyanosis Skin: Ulcer/ Wound - see nursing documentation, slough and some maceration Wound Measurements and Assessment WC - Nurse 1 - General Ulcer Measurement Start: 06/25/19 14:29 Freq: Status: Active Protocol: Activity Type Activity Date Activity User E-Sign Co-Sign Detail Recorded Client Recorded Date Recorded By Document 07/09/19 13:33 MW [id number] 07/09/19 13:35 MW 07/09/19 13:33 Wound Center Nurse 1 [Ulcer Assessment] #1- LEFT GROIN- POST OP -Combined with other wound No -Current Size (cm) - Length 1.1 -Current Size (cm) - Width 11.0 -Current Size (cm) - Depth 0.2 -Total Square Cm 12.10 -Epithelialization None Present -Tunneling No -Undermining/Tunneling No -Circular Undermining No -Exudate Amt Medium -Exudate Type Serosanguineous -Wound Margin Distinct, Outline Attached -Granulation Amt Large (67-100%) -Granulation Quality Red -Slough/Fibrin Yes -Necrosis Amt Small (1-33%) -Necrotic Tissue Type Adherent Slough -Structure Exposed N/A -Texture (Inessa-wound Skin Appearance) Assessed, Localized Edema -Moisture (Inessa-wound Skin Appearance Assessed, ) Maceration -Color (Inessa-wound Skin Appearance) No Abnormality, Assessed -Temperature (Inessa-wound Skin No Abnormality Appearance) (Pt Warm) -Tenderness on Palpation (Inessa-wound No Skin Appearance) -Ulcer Cleansing Rinsed/ Irrigated with Saline -Foul Odor after Cleansing No -Anesthetic Used 4% Lidocaine Solution [Edema Assessment] -Lower Limb Edema Present No WC - Nurse 2 - General Ulcer CM Notes Start: 06/25/19 14:29 Freq: Status: Active Protocol: Activity Type Activity Date Activity User E-Sign Co-Sign Detail Recorded Client Recorded Date Recorded By Document 07/09/19 13:41 MW [id number] 07/09/19 13:44 MW 07/09/19 13:41 Wound Center Nurse 2 [Procedure/Treatment] #1- LEFT GROIN- POST OP -Time 13:42 -Correct Patient Yes -Correct Side, Site, Position Yes -Correct Procedure Yes -Procedure Performed Yes -Type of Procedure Debridement -Clinical Debridement Subcutaneous -Post Debridement Size (cm) - Length 1.5 -Post Debridement Size (cm) - Width 11.5 -Post Debridement Size (cm) - Depth 0.1 -Total Square Cm 17.25 -Wound/Ulcer Outcome Not Healed -Ulcer Cleansing Rinsed/ Irrigated with Saline -Foul Odor after Cleansing No -Bioengineered Tissue No -Bleeding Controlled with Pressure -Offloading No -Treatment Response Procedure Tolerated Well [See Physician Procedure note for Specifics] Pain Scale: 0-10 Numeric [Pain] -Is Patient Pain Free? Yes Neurological: Neuro grossly intact Psych/Mental Status: Normal Affect, Appropriate, Alert and oriented to time, place, person, mood and affect Debridement Note Post-Debridement Measurements/Treatment WC - Nurse 2 - General Ulcer CM Notes Start: 06/25/19 14:29 Freq: Status: Active Protocol: Activity Type Activity Date Activity User E-Sign Co-Sign Detail Recorded Client Recorded Date Recorded By Document 06/25/19 15:08 [id number] 06/25/19 15:10 MW Document 07/02/19 12:06 [id number] 07/02/19 12:08 Document 07/09/19 13:41 [id number] 07/09/19 13:44 MW 06/25/19 07/02/19 07/09/19 15:08 12:06 13:41 Wound Center Nurse 2 #1- LEFT GROIN- POST OP -Time 15:09 12:06 13:42 -Correct Patient Yes Yes Yes -Correct Side, Site, Position Yes Yes Yes -Correct Procedure Yes Yes Yes -Procedure Performed Yes Yes Yes -Type of Procedure Debridement Debridement Debridement -Clinical Debridement Subcutaneous Subcutaneous Subcutaneous -Post Debridement Size (cm) - Length 1.8 1.5 1.5 -Post Debridement Size (cm) - Width 8.0 9.0 11.5 -Post Debridement Size (cm) - Depth 0.1 0.2 0.1 -Total Square Cm 14.40 13.50 17.25 -Wound/Ulcer Outcome Not Healed Not Healed Not Healed -Ulcer Cleansing Rinsed/ Rinsed/ Rinsed/ Irrigated with Irrigated with Irrigated with Saline Saline Saline -Foul Odor after Cleansing No No No -Bioengineered Tissue No No No -Bleeding Controlled with Pressure Pressure Pressure -Offloading No No No -Treatment Response Procedure Procedure Procedure Tolerated Well Tolerated Well Tolerated Well Pain Scale: 0-10 Numeric Is Patient Pain Free? Yes Yes Yes Wound debrided: left groin ulcer Laterality: Left Type of Debridement: Excisional debridement Anesthesia Used: 5% Lidocaine Gel Depth: in the subcutaneous layer Percentage of wound debrided: 100 Instrument Used: 3mm curette Tissue Removed: slough and devitalized tissue Severity: Fat Layer Exposed Amount of bleeding with debridement: Mild Bleeding Controlled with: Pressure Patient tolerated procedure well Assessment/Plan Assessment: Nonhealing postsurgical wound left groin status post surgical excision of necrotizing fasciitis. Bilateral lower extremity edema. Morbid obesity. Type 2 diabetes mellitus Plan: The patient was seen and examined at the wound center today and was updated on the plan of care. A subcutaneous debridement was performed today. The patient tolerated the procedure well. The patients wound care will consist of: Application of santyl cover with gauze change daily.Discussed to keep area dry. Did discuss proper drying mechanisms after showering to prevent excess moisture. Baseline bloodwork reviewed which demonstrated a slightly low pre-albumin and patient was advised to use Glucerna or high-protein with meals. Repeat lab work WNL. Prealbumin WNL now. Previous records were requested for continuity of care. Patient educated on the importance of diet on wound healing and instructed to increase protein and vitamin C intake. Patient verbalized understanding. Plastic surgery consultation - no surgery indicated. Did discuss with patient the importance of blood sugar control in wound healing, recent A1C in 02/2018 was 6.1. Patient to follow-up in 1 week or sooner if needed. Patient is on a complex wound plan. Given the delayed wound healing and the fact that he has failed standard wound care greater than 4 weeks will apply for an advanced skin substitute. This note was generated with [employer] software. It may contain incorrect words, spelling, and punctuation that were not noted in checking the note before signing. [id number]: [id number] Jessica subq tissue 20 sq cm/<
[2019-07-16 13:05] VITALS: BP 114/56; PULSE 83; RESP 16; TEMP 36.3
--- NOTE | 2019-07-16 16:25 | PCM.WC.PN ---
(1) Non-healing surgical wound of left groin Status: Chronic Current Visit: Yes Qualifiers: Code(s): T81.89XA - Other complications of procedures, not elsewhere classified, initial encounter (2) Lymphedema of both lower extremities Status: Acute Current Visit: Yes Code(s): I89.0 - Lymphedema, not elsewhere classified (3) History of necrotising fasciitis Status: Chronic Current Visit: Yes Code(s): Z87.39 - Personal history of other diseases of the musculoskeletal system and connective tissue (4) Morbid obesity Status: Chronic Current Visit: Yes Code(s): E66.01 - Morbid (severe) obesity due to excess calories (5) Type 2 diabetes mellitus Status: Chronic Current Visit: Yes Qualifiers: Code(s): E11.9 - Type 2 diabetes mellitus without complications Type of Wound Date of Service: 07/16/19 Chief Complaint: Nonhealing wound status post surgical excision of necrotizing fasciitis left groin History of Wound: 46-year-old white male who presents to the wound healing center today with complaint of left groin ulceration status post surgical excision of necrotizing fasciitis. He is a past medical history which is significant for that of type 2 diabetes mellitus, gout, diabetic neuropathy, schizophrenia, bilateral lymphedema, and schizophrenia. The patient states that what initially started as a pimple in his left groin progressed to necrotizing fasciitis and he had to have this surgically debrided in April 2017. He was admitted to [facility] for 2 weeks and then [facility] for 6 weeks afterwards. He states that the groin ulcer which extends to his left lower abdomen has been slowly improving and he has been doing daily Aquacel AG dressings with an ABD for the drainage. He does state that he has had 3 wound vacs in the past which were unable to be utilized due to the location of his wound. He denies any foul-smelling discharge or systemic signs of infection at this time. He is seen today as a courtesy visit for Gianni Neil CNP. He is tolerating dressings and denies any increase in drainage. He has been also using sweat beater to his groin area to prevent moisture. The patient otherwise denies any fever, chills, nausea, vomiting, shortness of breath, chest pain or pressure, palpitations, orthopnea, syncope or presyncopal episodes. Progress of Wound: Left groin wound Stable, tolerating santyl, no maceration, and left medial groin cluster ulceration remains healed.no new concerns - Physical Exam Vital Signs Temp Pulse Resp BP 97.3 F L 83 16 114/56 L 07/16/19 13:05 07/16/19 13:05 07/16/19 13:05 07/16/19 13:05 General: Alert, Oriented x3, Cooperative, No apparent distress HEENT: Atraumatic Oral: Moist Mucosa Lungs: Clear to auscultation, Normal air movement Cardiovascular: Regular rate, Regular Rhythm Abdomen: Soft, Non Tender, Obese Extremities: No clubbing, No cyanosis, No edema Skin: Ulcer/ Wound - See nursing documentation, small amount of slough present no signs of infection at this time Wound Measurements and Assessment WC - Nurse 1 - General Ulcer Measurement Start: 06/25/19 14:29 Freq: Status: Active Protocol: Activity Type Activity Date Activity User E-Sign Co-Sign Detail Recorded Client Recorded Date Recorded By Document 07/16/19 13:05 [facility] [id number] 07/16/19 13:10 [facility] 07/16/19 13:05 Wound Center Nurse 1 [Ulcer Assessment] #1- LEFT GROIN- POST OP -Combined with other wound No -Current Size (cm) - Length 1.2 -Current Size (cm) - Width 10.8 -Current Size (cm) - Depth 0.1 -Total Square Cm 12.96 -Photo Taken No -Epithelialization None Present -Tunneling No -Undermining/Tunneling No -Circular Undermining No -Exudate Amt Small -Exudate Type Serous -Wound Margin Thickened -Granulation Amt Large (67-100%) -Granulation Quality Pale,Red -Slough/Fibrin Yes -Necrosis Amt Small (1-33%) -Necrotic Tissue Type Adherent Slough -Texture (Inessa-wound Skin Appearance) Assessed, Scarring -Moisture (Inessa-wound Skin Appearance Assessed ) -Color (Inessa-wound Skin Appearance) Assessed -Temperature (Inessa-wound Skin No Abnormality Appearance) (Pt Warm) -Tenderness on Palpation (Inessa-wound No Skin Appearance) -Ulcer Cleansing SOAPY WATER -Foul Odor after Cleansing No -Anesthetic Used 4% Lidocaine Solution WC - Nurse 2 - General Ulcer CM Notes Start: 06/25/19 14:29 Freq: Status: Active Protocol: Activity Type Activity Date Activity User E-Sign Co-Sign Detail Recorded Client Recorded Date Recorded By Document 07/16/19 13:23 MW [id number] 07/16/19 13:27 MW 07/16/19 13:23 Wound Center Nurse 2 [Procedure/Treatment] -Time 13:25 -Correct Patient Yes -Correct Side, Site, Position Yes -Correct Procedure Yes -Procedure Performed Yes -Type of Procedure Debridement -Clinical Debridement Subcutaneous -Post Debridement Size (cm) - Length 1.5 -Post Debridement Size (cm) - Width 9.5 -Post Debridement Size (cm) - Depth 0.1 -Total Square Cm 14.25 -Wound/Ulcer Outcome Not Healed -Ulcer Cleansing Rinsed/ Irrigated with Saline -Foul Odor after Cleansing No -Bleeding Controlled with Pressure -Offloading No -Treatment Response Procedure Tolerated Well [See Physician Procedure note for Specifics] Pain Scale: 0-10 Numeric [Pain] -Is Patient Pain Free? Yes Neurological: Neuro grossly intact Psych/Mental Status: Normal Affect, Appropriate, Alert and oriented to time, place, person, mood and affect Debridement Note Post-Debridement Measurements/Treatment WC - Nurse 2 - General Ulcer CM Notes Start: 06/25/19 14:29 Freq: Status: Active Protocol: Activity Type Activity Date Activity User E-Sign Co-Sign Detail Recorded Client Recorded Date Recorded By Document 06/25/19 15:08 MW [id number] 06/25/19 15:10 MW Document 07/02/19 12:06 [id number] 07/02/19 12:08 JF Document 07/09/19 13:41 MW [id number] 07/09/19 13:44 MW Document 07/16/19 13:23 MW [id number] 07/16/19 13:27 MW 06/25/19 07/02/19 07/09/19 15:08 12:06 13:41 Wound Center Nurse 2 #1- LEFT GROIN- POST OP -Time 15:09 12:06 13:42 -Correct Patient Yes Yes Yes -Correct Side, Site, Position Yes Yes Yes -Correct Procedure Yes Yes Yes -Procedure Performed Yes Yes Yes -Type of Procedure Debridement Debridement Debridement -Clinical Debridement Subcutaneous Subcutaneous Subcutaneous -Post Debridement Size (cm) - Length 1.8 1.5 1.5 -Post Debridement Size (cm) - Width 8.0 9.0 11.5 -Post Debridement Size (cm) - Depth 0.1 0.2 0.1 -Total Square Cm 14.40 13.50 17.25 -Wound/Ulcer Outcome Not Healed Not Healed Not Healed -Ulcer Cleansing Rinsed/ Rinsed/ Rinsed/ Irrigated with Irrigated with Irrigated with Saline Saline Saline -Foul Odor after Cleansing No No No -Bioengineered Tissue No No No -Bleeding Controlled with Pressure Pressure Pressure -Offloading No No No -Treatment Response Procedure Procedure Procedure Tolerated Well Tolerated Well Tolerated Well Pain Scale: 0-10 Numeric Is Patient Pain Free? Yes Yes Yes 07/16/19 13:23 Wound Center Nurse 2 #1- LEFT GROIN- POST OP -Time 13:25 -Correct Patient Yes -Correct Side, Site, Position Yes -Correct Procedure Yes -Procedure Performed Yes -Type of Procedure Debridement -Clinical Debridement Subcutaneous -Post Debridement Size (cm) - Length 1.5 -Post Debridement Size (cm) - Width 9.5 -Post Debridement Size (cm) - Depth 0.1 -Total Square Cm 14.25 -Wound/Ulcer Outcome Not Healed -Ulcer Cleansing Rinsed/ Irrigated with Saline -Foul Odor after Cleansing No -Bioengineered Tissue -Bleeding Controlled with Pressure -Offloading No -Treatment Response Procedure Tolerated Well Pain Scale: 0-10 Numeric Is Patient Pain Free? Yes Wound debrided: Left groin ulcer Laterality: Left Type of Debridement: Excisional debridement Anesthesia Used: 5% Lidocaine Gel Depth: in the subcutaneous layer Percentage of wound debrided: 100 Instrument Used: 5mm curette Tissue Removed: Slough and devitalized tissue Severity: Fat Layer Exposed Amount of bleeding with debridement: Mild Bleeding Controlled with: Pressure Patient tolerated procedure well Assessment/Plan Active Problems History of necrotising fasciitis (Chronic) Lymphedema of both lower extremities (Acute) Type 2 diabetes mellitus (Chronic) Morbid obesity (Chronic) Non-healing surgical wound of left groin (Chronic) Assessment: Nonhealing postsurgical wound left groin status post surgical excision of necrotizing fasciitis. Bilateral lower extremity edema. Morbid obesity. Type 2 diabetes mellitus Plan: The patient was seen and examined at the wound center today and was updated on the plan of care. A subcutaneous debridement was performed today. The patient tolerated the procedure well. The patients wound care will consist of: Application of santyl cover with gauze change daily.Discussed to keep area dry. Did discuss proper drying mechanisms after showering to prevent excess moisture. Baseline bloodwork reviewed which demonstrated a slightly low pre-albumin and patient was advised to use Glucerna or high-protein with meals. Repeat lab work WNL. Prealbumin WNL now. Previous records were requested for continuity of care. Patient educated on the importance of diet on wound healing and instructed to increase protein and vitamin C intake. Patient verbalized understanding. Plastic surgery consultation - no surgery indicated. Did discuss with patient the importance of blood sugar control in wound healing, recent A1C in 02/2018 was 6.1. Patient to follow-up in 1 week or sooner if needed. Patient is on a complex wound plan. Given the delayed wound healing and the fact that he has failed standard wound care greater than 4 weeks will apply for an advanced skin substitute. This note was generated with [employer] dictation software. It may contain incorrect words, spelling, and punctuation that were not noted in checking the note before signing. [id number]: [id number] Jessica subq tissue 20 sq cm/<
== END 2019-07-21 23:59 ==
LOC: WC 13:00
PROVIDERS: Family Provider Family Medicine; PCP Family Medicine; Visit Provider Nurse Practitioner Family
DX: T81.89XA Other complications of procedures, not elsewhere classified, initial encounter (principal); Y83.8 Other surgical procedures as the cause of abnormal reaction of the patient, or of later complication, without mention of misadventure at the time of the procedure; I89.0 Lymphedema, not elsewhere classified; E11.40 Type 2 diabetes mellitus with diabetic neuropathy, unspecified; E66.01 Morbid (severe) obesity due to excess calories; R60.0 Localized edema; Z68.43 Body mass index [BMI] 50.0-59.9, adult; Z71.3 Dietary counseling and surveillance
CPT/HCPCS: 11042

== ENCOUNTER 2019-08-20 11:30 | Outpatient (RCR) | payer MEDICARE, MEDICAID, SELFPAY ==
[2019-07-22 00:22] VITALS: BP 114/56; PULSE 83; RESP 16; TEMP 36.3
[2019-07-23 12:57] VITALS: BP 149/86; PULSE 78; RESP 18; TEMP 36.6
--- NOTE | 2019-07-23 19:15 | PN.PCM_ITS ---
(1) Skin ulcer of abdominal wall with fat layer exposed Status: Chronic Current Visit: Yes Code(s): L98.492 - Non-pressure chronic ulcer of skin of other sites with fat layer exposed Comment: left abdominal fold and left medial groin cluster ulcers (2) History of necrotising fasciitis Status: Chronic Current Visit: No Code(s): Z87.39 - Personal history of other diseases of the musculoskeletal system and connective tissue (3) Morbid obesity Status: Chronic Current Visit: No Code(s): E66.01 - Morbid (severe) obesity due to excess calories (4) Type 2 diabetes mellitus Status: Chronic Current Visit: No Qualifiers: Code(s): E11.9 - Type 2 diabetes mellitus without complications Type of Wound Date of Service: 07/23/19 Chief Complaint: Nonhealing wound status post surgical excision of necrotizing fasciitis left groin History of Wound: 46-year-old white male who presents to the wound healing center today with complaint of left groin ulceration status post surgical excision of necrotizing fasciitis. He is a past medical history which is significant for that of type 2 diabetes mellitus, gout, diabetic neuropathy, schizophrenia, bilateral lymphedema, and schizophrenia. The patient states that what initially started as a pimple in his left groin progressed to necrotizing f asciitis and he had to have this surgically debrided in April 2017. He was admitted to [facility] for 2 weeks and then [facility] for 6 weeks afterwards. He states that the groin ulcer which extends to his left lower abdomen has been slowly improving and he has been doing daily Aquacel AG dressings with an ABD for the drainage. He does state that he has had 3 wound vacs in the past which were unable to be utilized due to the location of his wound. He denies any foul-smelling discharge or systemic signs of infection at this time. He is seen today as a courtesy visit for Gianni Neil CNP. He is tolerating dressings and denies any increase in drainage. He has been also using sweat beater to his groin area to prevent moisture. The patient otherwise denies any fever, chills, nausea, vomiting, shortness of breath, chest pain or pressure, palpitations, orthopnea, syncope or presyncopal episodes. Progress of Wound: Courtesy Visit for Gianni Neil NP. No acute concerns at this time. Stable Ulcer. - Physical Exam Vital Signs Temp Pulse Resp BP 97.8 F 78 18 149/86 H 07/23/19 12:57 07/23/19 12:57 07/23/19 12:57 07/23/19 12:57 General: Alert, Oriented x3, Cooperative, No apparent distress HEENT: Atraumatic, Normocephalic Oral: Moist Mucosa Neck: Supple Abdomen: Non Tender, Obese Extremities: No cyanosis Skin: Ulcer/ Wound Wound Measurements and Assessment WC - Nurse 1 - General Ulcer Measurement Start: 07/23/19 12:55 Freq: Status: Active Protocol: Activity Type Activity Date Activity User E-Sign Co-Sign Detail Recorded Client Recorded Date Recorded By Document 07/23/19 12:57 PL [id number] 07/23/19 13:06 PL 07/23/19 12:57 Wound Center Nurse 1 [Ulcer Assessment] #1- LEFT GROIN- POST OP -Current Size (cm) - Length 1.0 -Current Size (cm) - Width 9.0 -Current Size (cm) - Depth 0.2 -Total Square Cm 9.00 -Photo Taken No -Exudate Amt Small -Exudate Type Serosanguineous -Wound Margin Flat & Intact -Granulation Amt Large (67-100%) -Granulation Quality [place],Red -Slough/Fibrin Yes -Necrosis Amt Small (1-33%) -Necrotic Tissue Type Adherent Slough -Texture (Inessa-wound Skin Appearance) No Abnormality -Moisture (Inessa-wound Skin Appearance No Abnormality ) -Color (Inessa-wound Skin Appearance) No Abnormality -Temperature (Inessa-wound Skin No Abnormality Appearance) (Pt Warm) -Tenderness on Palpation (Inessa-wound No Skin Appearance) -Ulcer Cleansing Soap and Water -Anesthetic Used 4% Lidocaine Solution WC - Nurse 2 - General Ulcer CM Notes Start: 07/23/19 12:55 Freq: Status: Active Protocol: Activity Type Activity Date Activity User E-Sign Co-Sign Detail Recorded Client Recorded Date Recorded By Document 07/23/19 13:21 MW [id number] 07/23/19 13:22 MW 07/23/19 13:21 Wound Center Nurse 2 [Procedure/Treatment] -Time 13:21 -Correct Patient Yes -Correct Side, Site, Position Yes -Correct Procedure Yes -Procedure Performed Yes -Type of Procedure Debridement -Clinical Debridement Subcutaneous -Post Debridement Size (cm) - Length 1.8 -Post Debridement Size (cm) - Width 10.5 -Post Debridement Size (cm) - Depth 0.3 -Total Square Cm 18.90 -Wound/Ulcer Outcome Not Healed -Ulcer Cleansing Rinsed/ Irrigated with Saline -Foul Odor after Cleansing No -Bioengineered Tissue No -Bleeding Controlled with Pressure -Offloading No -Treatment Response Procedure Tolerated Well [See Physician Procedure note for Specifics] Pain Scale: 0-10 Numeric [Pain] -Is Patient Pain Free? Yes Musculoskeletal: No Muscle Wasting Neurological: Cranial nerves II-XII grossly intact Psych/Mental Status: Normal Affect Debridement Note Post-Debridement Measurements/Treatment WC - Nurse 2 - General Ulcer CM Notes Start: 07/23/19 12:55 Freq: Status: Active Protocol: Activity Type Activity Date Activity User E-Sign Co-Sign Detail Recorded Client Recorded Date Recorded By Document 07/23/19 13:21 MW [id number] 07/23/19 13:22 MW 07/23/19 13:21 Wound Center Nurse 2 #1- LEFT GROIN- POST OP -Time 13:21 -Correct Patient Yes -Correct Side, Site, Position Yes -Correct Procedure Yes -Procedure Performed Yes -Type of Procedure Debridement -Clinical Debridement Subcutaneous -Post Debridement Size (cm) - Length 1.8 -Post Debridement Size (cm) - Width 10.5 -Post Debridement Size (cm) - Depth 0.3 -Total Square Cm 18.90 -Wound/Ulcer Outcome Not Healed -Ulcer Cleansing Rinsed/ Irrigated with Saline -Foul Odor after Cleansing No -Bioengineered Tissue No -Bleeding Controlled with Pressure -Offloading No -Treatment Response Procedure Tolerated Well Pain Scale: 0-10 Numeric Is Patient Pain Free? Yes Wound debrided: Left sided groin ulcer Type of Debridement: Excisional debridement Anesthesia Used: 4% Lidocaine Solution Depth: Down to and including healthy tissue, in the subcutaneous layer Percentage of wound debrided: 100 Instrument Used: 7mm curette Tissue Removed: Slough and devitalized tissue Severity: Fat Layer Exposed Amount of bleeding with debridement: Mild Bleeding Controlled with: Pressure Patient tolerated procedure well Assessment/Plan Active Problems Skin ulcer of abdominal wall with fat layer exposed (Chronic) left abdominal fold and left medial groin cluster ulcers Assessment: Nonhealing postsurgical wound left groin status post surgical excision of necrotizing fasciitis. Bilateral lower extremity edema. Morbid obesity. Type 2 diabetes mellitus Plan: Courtesy Visit. No acute concerns at this time. Stable Ulcer. Debridement done as docuemented above, procedure was well tolerated. Continue Santyl and guaze. Has been alternating with meglisorb. This appears to be working so will continue. Continued increased protein intake. Weight loss is also recommended. His questions were answered and he was advised to call with any further questions or concerns. Follow up in 2 weeks. [id number]: [id number] Jessica subq tissue 20 sq cm/<
[2019-08-06 12:27] VITALS: BP 152/94; PULSE 79; RESP 18; TEMP 36.6
--- NOTE | 2019-08-06 12:47 | PCM.WC.PN ---
(1) Skin ulcer of abdominal wall with fat layer exposed Status: Chronic Current Visit: Yes Code(s): L98.492 - Non-pressure chronic ulcer of skin of other sites with fat layer exposed Comment: left abdominal fold and left medial groin cluster ulcers (2) History of necrotising fasciitis Status: Chronic Current Visit: No Code(s): Z87.39 - Personal history of other diseases of the musculoskeletal system and connective tissue (3) Morbid obesity Status: Chronic Current Visit: No Code(s): E66.01 - Morbid (severe) obesity due to excess calories (4) Type 2 diabetes mellitus Status: Chronic Current Visit: No Qualifiers: Code(s): E11.9 - Type 2 diabetes mellitus without complications Type of Wound Date of Service: 08/06/19 Chief Complaint: Nonhealing wound status post surgical excision of necrotizing fasciitis left groin History of Wound: 46-year-old white male who presents to the wound healing center today with complaint of left groin ulceration status post surgical excision of necrotizing fasciitis. He is a past medical history which is significant for that of type 2 diabetes mellitus, gout, diabetic neuropathy, schizophrenia, bilateral lymphedema, and schizophrenia. The patient states that what initially started as a pimple in his left groin progressed to necrotizing fasciitis and he had to have this surgically debrided in April 2017. He was admitted to [facility] for 2 weeks and then [facility] for 6 weeks afterwards. He states that the groin ulcer which extends to his left lower abdomen has been slowly improving and he has been doing daily Aquacel AG dressings with an ABD for the drainage. He does state that he has had 3 wound vacs in the past which were unable to be utilized due to the location of his wound. He denies any foul-smelling discharge or systemic signs of infection at this time. He is seen today as a courtesy visit for Gianni Neil CNP. He is tolerating dressings and denies any increase in drainage. He has been also using sweat beater to his groin area to prevent moisture. The patient otherwise denies any fever, chills, nausea, vomiting, shortness of breath, chest pain or pressure, palpitations, orthopnea, syncope or presyncopal episodes. Progress of Wound: Courtesy Visit for Gianni Neil NP. No acute concerns at this time. Stable Ulcer. - Physical Exam Vital Signs Temp Pulse Resp BP 97.8 F 79 18 152/94 H 08/06/19 12:27 08/06/19 12:27 08/06/19 12:27 08/06/19 12:27 General: Alert, Oriented x3, Cooperative, No apparent distress HEENT: Atraumatic, Normocephalic Oral: Moist Mucosa Neck: Supple Lungs: Normal air movement Abdomen: Non Tender, Obese Extremities: No cyanosis Skin: Ulcer/ Wound Wound Measurements and Assessment WC - Nurse 1 - General Ulcer Measurement Start: 07/23/19 12:55 Freq: Status: Active Protocol: Activity Type Activity Date Activity User E-Sign Co-Sign Detail Recorded Client Recorded Date Recorded By Document 08/06/19 12:27 PL [id number] 08/06/19 12:35 PL 08/06/19 12:27 Wound Center Nurse 1 [Ulcer Assessment] #1- LEFT GROIN- POST OP -Combined with other wound No -Current Size (cm) - Length 0.5 -Current Size (cm) - Width 8.5 -Current Size (cm) - Depth 0.1 -Total Square Cm 4.25 -Photo Taken No -Epithelialization None Present -Tunneling No -Undermining/Tunneling No -Circular Undermining No -Exudate Amt Medium -Exudate Type Serosanguineous -Granulation Amt Large (67-100%) -Granulation Quality [place],Red -Slough/Fibrin Yes -Necrosis Amt Small (1-33%) -Necrotic Tissue Type Adherent Slough -Texture (Inessa-wound Skin Appearance) No Abnormality -Moisture (Inessa-wound Skin Appearance No Abnormality ) -Color (Inessa-wound Skin Appearance) No Abnormality -Temperature (Inessa-wound Skin No Abnormality Appearance) (Pt Warm) -Ulcer Cleansing Rinsed/ Irrigated with Saline -Foul Odor after Cleansing No -Anesthetic Used 4% Lidocaine Solution WC - Nurse 2 - General Ulcer CM Notes Start: 07/23/19 12:55 Freq: Status: Active Protocol: Activity Type Activity Date Activity User E-Sign Co-Sign Detail Recorded Client Recorded Date Recorded By Document 08/06/19 12:44 MW [id number] 08/06/19 12:47 MW 08/06/19 12:44 Wound Center Nurse 2 [Procedure/Treatment] -Time 12:45 -Correct Patient Yes -Correct Side, Site, Position Yes -Correct Procedure Yes -Procedure Performed Yes -Type of Procedure Debridement -Clinical Debridement Subcutaneous -Post Debridement Size (cm) - Length 0.6 -Post Debridement Size (cm) - Width 9.0 -Post Debridement Size (cm) - Depth 0.2 -Total Square Cm 5.40 -Wound/Ulcer Outcome Not Healed -Ulcer Cleansing Rinsed/ Irrigated with Saline -Foul Odor after Cleansing No -Bioengineered Tissue No -Bleeding Controlled with Pressure -Offloading No -Treatment Response Procedure Tolerated Well [See Physician Procedure note for Specifics] Pain Scale: 0-10 Numeric [Pain] -Is Patient Pain Free? Yes Musculoskeletal: No Muscle Wasting Neurological: Cranial nerves II-XII grossly intact Psych/Mental Status: Normal Affect Debridement Note Post-Debridement Measurements/Treatment WC - Nurse 2 - General Ulcer CM Notes Start: 07/23/19 12:55 Freq: Status: Active Protocol: Activity Type Activity Date Activity User E-Sign Co-Sign Detail Recorded Client Recorded Date Recorded By Document 07/23/19 13:21 MW [id number] 07/23/19 13:22 MW Document 08/06/19 12:44 MW [id number] 08/06/19 12:47 MW 07/23/19 08/06/19 13:21 12:44 Wound Center Nurse 2 #1- LEFT GROIN- POST OP -Time 13:21 12:45 -Correct Patient Yes Yes -Correct Side, Site, Position Yes Yes -Correct Procedure Yes Yes -Procedure Performed Yes Yes -Type of Procedure Debridement Debridement -Clinical Debridement Subcutaneous Subcutaneous -Post Debridement Size (cm) - Length 1.8 0.6 -Post Debridement Size (cm) - Width 10.5 9.0 -Post Debridement Size (cm) - Depth 0.3 0.2 -Total Square Cm 18.90 5.40 -Wound/Ulcer Outcome Not Healed Not Healed -Ulcer Cleansing Rinsed/ Rinsed/ Irrigated with Irrigated with Saline Saline -Foul Odor after Cleansing No No -Bioengineered Tissue No No -Bleeding Controlled with Pressure Pressure -Offloading No No -Treatment Response Procedure Procedure Tolerated Well Tolerated Well Pain Scale: 0-10 Numeric Is Patient Pain Free? Yes Yes Wound debrided: Left Groin/Lower abdomen Type of Debridement: Excisional debridement Anesthesia Used: 4% Lidocaine Solution Depth: Down to and including healthy tissue, in the subcutaneous layer Instrument Used: 7mm curette Tissue Removed: Slough and devitalized tissue Severity: Fat Layer Exposed Amount of bleeding with debridement: Mild Bleeding Controlled with: Pressure Patient tolerated procedure well Assessment/Plan Active Problems Skin ulcer of abdominal wall with fat layer exposed (Chronic) left abdominal fold and left medial groin cluster ulcers Assessment: Nonhealing postsurgical wound left groin status post surgical excision of necrotizing fasciitis. Bilateral lower extremity edema. Morbid obesity. Type 2 diabetes mellitus Plan: Courtesy Visit. No acute concerns at this time. Stable Ulcer. Debridement done as docuemented above, procedure was well tolerated. Continue alternating Santyl and Meglisorb. Continued increased protein intake. Weight loss recommended. His questions were answered and he was advised to call with any further questions or concerns. Follow up in 2 weeks. [id number]: [id number] Jessica subq tissue 20 sq cm/<
[2019-08-20 11:25] VITALS: BP 152/80; PULSE 85; RESP 22; TEMP 36.6
--- NOTE | 2019-08-20 13:09 | PN.PCM_ITS ---
(1) Skin ulcer of abdominal wall with fat layer exposed Status: Chronic Current Visit: Yes Code(s): L98.492 - Non-pressure chronic ulcer of skin of other sites with fat layer exposed Comment: left abdominal fold and left medial groin cluster ulcers (2) History of necrotising fasciitis Status: Chronic Current Visit: Yes Code(s): Z87.39 - Personal history of other diseases of the musculoskeletal system and connective tissue (3) Morbid obesity Status: Chronic Current Visit: Yes Code(s): E66.01 - Morbid (severe) obesity due to excess calories (4) Type 2 diabetes mellitus Status: Chronic Current Visit: Yes Qualifiers: Code(s): E11.9 - Type 2 diabetes mellitus without complications Type of Wound Date of Service: 08/20/19 Chief Complaint: Nonhealing wound status post surgical excision of necrotizing fasciitis left groin History of Wound: 46-year-old white male who presents to the wound healing center today with complaint of left groin ulceration status post surgical excision of necrotizing fasciitis. He is a past medical history which is significant for that of type 2 diabetes mellitus, gout, diabetic neuropathy, schizophrenia, bilateral lymphedema, and schizophrenia. The patient states that what initially started as a pimple in his left groin progressed to necrotizing fasciitis and he had to have this surgically debrided in April 2017. He was admitted to [facility] for 2 weeks and then [facility] for 6 weeks afterwards. He states that the groin ulcer which extends to his left lower abdomen has been slowly improving and he has been doing daily Aquacel AG dressings with an ABD for the drainage. He does state that he has had 3 wound vacs in the past which were unable to be utilized due to the location of his wound. He denies any foul-smelling discharge or systemic signs of infection at this time. He is seen today as a courtesy visit for Gianni Neil CNP. He is tolerating dressings and denies any increase in drainage. He has been also using sweat beater to his groin area to prevent moisture. The patient otherwise denies any fever, chills, nausea, vomiting, shortness of breath, chest pain or pressure, palpitations, orthopnea, syncope or presyncopal episodes. Progress of Wound: Courtesy Visit for Gianni Neil NP. No acute concerns at this time. Stable Ulcer. - Physical Exam Vital Signs Temp Pulse Resp BP 97.8 F 85 22 H 152/80 H 08/20/19 11:25 08/20/19 11:25 08/20/19 11:25 08/20/19 11:25 General: Alert, Oriented x3, Cooperative, No apparent distress HEENT: Atraumatic, Normocephalic Oral: Moist Mucosa Neck: Supple Lungs: Normal air movement Abdomen: Non Tender, Obese Extremities: No cyanosis Skin: Ulcer/ Wound Wound Measurements and Assessment WC - Nurse 1 - General Ulcer Measurement Start: 07/23/19 12:55 Freq: Status: Active Protocol: Activity Type Activity Date Activity User E-Sign Co-Sign Detail Recorded Client Recorded Date Recorded By Document 08/20/19 11:25 DL [id number] 08/20/19 11:32 DL 08/20/19 11:25 Wound Center Nurse 1 [Ulcer Assessment] #1- LEFT GROIN- POST OP -Current Size (cm) - Length 1 -Current Size (cm) - Width 8.5 -Current Size (cm) - Depth 0.3 -Total Square Cm 8.5 -Photo Taken No -Exudate Amt Small -Exudate Type Serosanguineous -Wound Margin Thickened & Rolled Under -Granulation Amt Large (67-100%) -Granulation Quality Red -Necrosis Amt None Present (0 %) -Structure Exposed N/A -Texture (Inessa-wound Skin Appearance) Scarring -Moisture (Inessa-wound Skin Appearance No Abnormality ) -Color (Inessa-wound Skin Appearance) No Abnormality -Temperature (Inessa-wound Skin No Abnormality Appearance) (Pt Warm) -Tenderness on Palpation (Inessa-wound No Skin Appearance) -Ulcer Cleansing Wound Cleanser -Foul Odor after Cleansing No -Anesthetic Used 4% Lidocaine Solution Musculoskeletal: No Muscle Wasting Neurological: Cranial nerves II-XII grossly intact Psych/Mental Status: Normal Affect Debridement Note Post-Debridement Measurements/Treatment WC - Nurse 2 - General Ulcer CM Notes Start: 07/23/19 12:55 Freq: Status: Active Protocol: Activity Type Activity Date Activity User E-Sign Co-Sign Detail Recorded Client Recorded Date Recorded By Document 07/23/19 13:21 MW [id number] 07/23/19 13:22 MW Document 08/06/19 12:44 MW [id number] 08/06/19 12:47 MW 07/23/19 08/06/19 13:21 12:44 Wound Center Nurse 2 #1- LEFT GROIN- POST OP -Time 13:21 12:45 -Correct Patient Yes Yes -Correct Side, Site, Position Yes Yes -Correct Procedure Yes Yes -Procedure Performed Yes Yes -Type of Procedure Debridement Debridement -Clinical Debridement Subcutaneous Subcutaneous -Post Debridement Size (cm) - Length 1.8 0.6 -Post Debridement Size (cm) - Width 10.5 9.0 -Post Debridement Size (cm) - Depth 0.3 0.2 -Total Square Cm 18.90 5.40 -Wound/Ulcer Outcome Not Healed Not Healed -Ulcer Cleansing Rinsed/ Rinsed/ Irrigated with Irrigated with Saline Saline -Foul Odor after Cleansing No No -Bioengineered Tissue No No -Bleeding Controlled with Pressure Pressure -Offloading No No -Treatment Response Procedure Procedure Tolerated Well Tolerated Well Pain Scale: 0-10 Numeric Is Patient Pain Free? Yes Yes Wound debrided: Left groin Type of Debridement: Excisional debridement Anesthesia Used: 4% Lidocaine Solution Depth: Down to and including healthy tissue, in the subcutaneous layer Percentage of wound debrided: 100 Instrument Used: 5mm curette Tissue Removed: Slough and devitalized tissue Severity: Fat Layer Exposed Amount of bleeding with debridement: Mild Bleeding Controlled with: Pressure Patient tolerated procedure well Assessment/Plan Active Problems History of necrotising fasciitis (Chronic) Type 2 diabetes mellitus (Chronic) Morbid obesity (Chronic) Skin ulcer of abdominal wall with fat layer exposed (Chronic) left abdominal fold and left medial groin cluster ulcers Assessment: Nonhealing postsurgical wound left groin status post surgical excision of necrotizing fasciitis. Morbid obesity. Type 2 diabetes mellitus Plan: Courtesy Visit. No acute concerns at this time. Stable Ulcer. Debridement done as docuemented above, procedure was well tolerated. Continue Meglisorb. Patient will like to hold off Santyl, does not believe it is helping much. Continued increased protein intake. Weight loss recommended. His questions were answered and he was advised to call with any further questions or concerns. Follow up in 2 weeks. This note was generated with [employer] software. It may contain incorrect words, spelling, and punctuation that were not noted in checking the note before signing. [id number]: [id number] Jessica subq tissue 20 sq cm/<
== END 2019-08-20 23:59 ==
LOC: WC 11:30
PROVIDERS: Family Provider Family Medicine; PCP Family Medicine; Visit Provider Nurse Practitioner Family
DX: L98.492 Non-pressure chronic ulcer of skin of other sites with fat layer exposed (principal); E66.01 Morbid (severe) obesity due to excess calories; E11.9 Type 2 diabetes mellitus without complications; Z87.39 Personal history of other diseases of the musculoskeletal system and connective tissue; M10.9 Gout, unspecified; F20.9 Schizophrenia, unspecified; I89.0 Lymphedema, not elsewhere classified; R60.0 Localized edema
CPT/HCPCS: 11042

== ENCOUNTER 2019-09-17 11:30 | Outpatient (RCR) | payer MEDICARE, MEDICAID, SELFPAY ==
[2019-08-21 00:08] VITALS: BP 152/80; PULSE 85; RESP 22; TEMP 36.6
[2019-09-03 11:42] VITALS: BP 145/80; PULSE 89; RESP 18; TEMP 36.8
--- NOTE | 2019-09-03 12:11 | PCM.WC.PN ---
(1) Non-healing surgical wound Status: Chronic Current Visit: Yes Qualifiers: Code(s): T81.89XA - Other complications of procedures, not elsewhere classified, initial encounter (2) Non-healing surgical wound of left groin Status: Chronic Current Visit: Yes Qualifiers: Code(s): T81.89XA - Other complications of procedures, not elsewhere classified, initial encounter (3) Type 2 diabetes mellitus Status: Chronic Current Visit: Yes Qualifiers: Code(s): E11.9 - Type 2 diabetes mellitus without complications (4) History of necrotising fasciitis Status: Chronic Current Visit: Yes Code(s): Z87.39 - Personal history of other diseases of the musculoskeletal system and connective tissue Type of Wound Date of Service: 09/03/19 Chief Complaint: Nonhealing wound status post surgical excision of necrotizing fasciitis left groin History of Wound: 46-year-old white male who presents to the wound healing center today with complaint of left groin ulceration status post surgical excision of necrotizing fasciitis. He is a past medical history which is significant for that of type 2 diabetes mellitus, gout, diabetic neuropathy, schizophrenia, bilateral lymphedema, and schizophrenia. The patient states that what initially started as a pimple in his left groin progressed to necrotizing fasciitis and he had to have this surgically debrided in April 2017. He was admitted to [facility] for 2 weeks and then [facility] for 6 weeks afterwards. He states that the groin ulcer which extends to his left lower abdomen has been slowly improving and he has been doing daily Aquacel AG dressings with an ABD for the drainage. He does state that he has had 3 wound vacs in the past which were unable to be utilized due to the location of his wound. He denies any foul-smelling discharge or systemic signs of infection at this time. He is seen today as a courtesy visit for Gianni Neil CNP. He is tolerating dressings and denies any increase in drainage. He has been also using sweat beater to his groin area to prevent moisture. The patient otherwise denies any fever, chills, nausea, vomiting, shortness of breath, chest pain or pressure, palpitations, orthopnea, syncope or presyncopal episodes. Progress of Wound: Courtesy Visit for Gianni Neil NP. No acute concerns at this time. Stable Ulcer. - Physical Exam Vital Signs Temp Pulse Resp BP 98.2 F 89 18 145/80 H 09/03/19 11:42 09/03/19 11:42 09/03/19 11:42 09/03/19 11:42 General: Alert, Oriented x3, Cooperative, No apparent distress HEENT: Atraumatic, Normocephalic Oral: Moist Mucosa Neck: Supple Lungs: Normal air movement Abdomen: Non Tender, Obese Extremities: No cyanosis Skin: Ulcer/ Wound Wound Measurements and Assessment WC - Nurse 1 - General Ulcer Measurement Start: 09/03/19 11:42 Freq: Status: Active Protocol: Activity Type Activity Date Activity User E-Sign Co-Sign Detail Recorded Client Recorded Date Recorded By Document 09/03/19 11:42 RB [id number] 09/03/19 11:46 RB 09/03/19 11:42 Wound Center Nurse 1 [Ulcer Assessment] #1- LEFT GROIN- POST OP -Combined with other wound No -Current Size (cm) - Length 8 -Current Size (cm) - Width 1 -Current Size (cm) - Depth 0.2 -Total Square Cm 8 -Tunneling No -Undermining/Tunneling No -Circular Undermining No -Exudate Amt Medium -Exudate Type Serosanguineous -Wound Margin Thickened & Rolled Under -Granulation Amt Large (67-100%) -Granulation Quality [place] -Slough/Fibrin Yes -Necrosis Amt Small (1-33%) -Necrotic Tissue Type Adherent Slough -Structure Exposed N/A -Texture (Inessa-wound Skin Appearance) Assessed -Moisture (Inessa-wound Skin Appearance Maceration ) -Color (Inessa-wound Skin Appearance) Assessed -Temperature (Inessa-wound Skin No Abnormality Appearance) (Pt Warm) -Tenderness on Palpation (Inessa-wound No Skin Appearance) -Ulcer Cleansing Wound Cleanser -Foul Odor after Cleansing No -Anesthetic Used 4% Lidocaine Solution Musculoskeletal: No Muscle Wasting Neurological: Cranial nerves II-XII grossly intact Psych/Mental Status: Normal Affect Debridement Note Wound debrided: Left Groin Type of Debridement: Excisional debridement Anesthesia Used: 4% Lidocaine Solution Depth: Down to and including healthy tissue, in the subcutaneous layer Percentage of wound debrided: 100 Instrument Used: 5mm curette Tissue Removed: Slough and devitalized tissue Severity: Fat Layer Exposed Amount of bleeding with debridement: Mild Bleeding Controlled with: Pressure Patient tolerated procedure well Assessment/Plan Active Problems History of necrotising fasciitis (Chronic) Type 2 diabetes mellitus (Chronic) Non-healing surgical wound of left groin (Chronic) Non-healing surgical wound (Chronic) Assessment: Nonhealing postsurgical wound left groin status post surgical excision of necrotizing fasciitis. Morbid obesity. Type 2 diabetes mellitus Plan: Courtesy Visit. No acute concerns at this time. Improving. Debridement done as docuemented above, procedure was well tolerated. Continue Meglisorb. Patient will like to hold off Santyl, does not believe it is helping much. Continued increased protein intake. Weight loss recommended. His questions were answered and he was advised to call with any further questions or concerns. Follow up in 2 weeks. This note was generated with [employer] dictation software. It may contain incorrect words, spelling, and punctuation that were not noted in checking the note before signing. [id number]: [id number] Jessica subq tissue 20 sq cm/<
[2019-09-17 11:22] VITALS: BP 152/87; PULSE 97; RESP 18; TEMP 36.2
--- NOTE | 2019-09-17 11:43 | PCM.WC.PN ---
(1) Non-healing surgical wound Status: Chronic Current Visit: Yes Qualifiers: Code(s): T81.89XA - Other complications of procedures, not elsewhere classified, initial encounter (2) Non-healing surgical wound of left groin Status: Chronic Current Visit: Yes Qualifiers: Code(s): T81.89XA - Other complications of procedures, not elsewhere classified, initial encounter (3) Type 2 diabetes mellitus Status: Chronic Current Visit: Yes Qualifiers: Code(s): E11.9 - Type 2 diabetes mellitus without complications (4) History of necrotising fasciitis Status: Chronic Current Visit: Yes Code(s): Z87.39 - Personal history of other diseases of the musculoskeletal system and connective tissue Type of Wound Date of Service: 09/17/19 Chief Complaint: Nonhealing wound status post surgical excision of necrotizing fasciitis left groin History of Wound: 46-year-old white male who presents to the wound healing center today with complaint of left groin ulceration status post surgical excision of necrotizing fasciitis. He is a past medical history which is significant for that of type 2 diabetes mellitus, gout, diabetic neuropathy, schizophrenia, bilateral lymphedema, and schizophrenia. The patient states that what initially started as a pimple in his left groin progressed to necrotizing fasciitis and he had to have this surgically debrided in April 2017. He was admitted to [facility] for 2 weeks and then [facility] for 6 weeks afterwards. He states that the groin ulcer which extends to his left lower abdomen has been slowly improving and he has been doing daily Aquacel AG dressings with an ABD for the drainage. He does state that he has had 3 wound vacs in the past which were unable to be utilized due to the location of his wound. He denies any foul-smelling discharge or systemic signs of infection at this time. He is seen today as a courtesy visit for Gianni Neil CNP. He is tolerating dressings and denies any increase in drainage. He has been also using sweat beater to his groin area to prevent moisture. The patient otherwise denies any fever, chills, nausea, vomiting, shortness of breath, chest pain or pressure, palpitations, orthopnea, syncope or presyncopal episodes. Progress of Wound: New openings and worsening ulcer. - Physical Exam Vital Signs Temp Pulse Resp BP 97.1 F L 97 18 152/87 H 09/17/19 11:22 09/17/19 11:22 09/17/19 11:22 09/17/19 11:22 General: Alert, Oriented x3, Cooperative, No apparent distress HEENT: Atraumatic, Normocephalic Oral: Moist Mucosa Neck: Supple Lungs: Normal air movement Abdomen: Non Tender, Obese Extremities: No cyanosis Skin: Ulcer/ Wound Wound Measurements and Assessment WC - Nurse 1 - General Ulcer Measurement Start: 09/03/19 11:42 Freq: Status: Active Protocol: Activity Type Activity Date Activity User E-Sign Co-Sign Detail Recorded Client Recorded Date Recorded By Document 09/17/19 11:22 [facility] [id number] 09/17/19 11:29 [facility] 09/17/19 11:22 Wound Center Nurse 1 [Ulcer Assessment] #1- LEFT GROIN- POST OP -Combined with other wound No -Current Size (cm) - Length 1.1 -Current Size (cm) - Width 9.6 -Current Size (cm) - Depth 0.2 -Total Square Cm 10.56 -Photo Taken No -Epithelialization None Present -Tunneling No -Undermining/Tunneling No -Circular Undermining No -Exudate Amt Small -Exudate Type Serous -Wound Margin Thickened & Rolled Under -Granulation Amt Large (67-100%) -Granulation Quality Red -Slough/Fibrin Yes -Necrosis Amt Small (1-33%) -Necrotic Tissue Type Adherent Slough -Texture (Inessa-wound Skin Appearance) Assessed, Scarring -Moisture (Inessa-wound Skin Appearance Assessed, ) Maceration -Color (Inessa-wound Skin Appearance) Assessed,Palor -Temperature (Inessa-wound Skin No Abnormality Appearance) (Pt Warm) -Tenderness on Palpation (Inessa-wound No Skin Appearance) -Ulcer Cleansing soapy water -Foul Odor after Cleansing No -Anesthetic Used 4% Lidocaine Solution Musculoskeletal: No Muscle Wasting Neurological: Cranial nerves II-XII grossly intact Psych/Mental Status: Normal Affect Debridement Note Post-Debridement Measurements/Treatment WC - Nurse 2 - General Ulcer CM Notes Start: 09/03/19 11:42 Freq: Status: Active Protocol: Activity Type Activity Date Activity User E-Sign Co-Sign Detail Recorded Client Recorded Date Recorded By Document 09/03/19 12:11 [id number] 09/03/19 12:12 MW 09/03/19 12:11 Wound Center Nurse 2 #1- LEFT GROIN- POST OP -Time 12:11 -Correct Patient Yes -Correct Side, Site, Position Yes -Correct Procedure Yes -Procedure Performed Yes -Type of Procedure Debridement -Clinical Debridement Subcutaneous -Post Debridement Size (cm) - Length 0.8 -Post Debridement Size (cm) - Width 7.5 -Post Debridement Size (cm) - Depth 0.2 -Total Square Cm 6.00 -Wound/Ulcer Outcome Not Healed -Ulcer Cleansing Rinsed/ Irrigated with Saline -Foul Odor after Cleansing No -Bioengineered Tissue No -Bleeding Controlled with Pressure -Offloading No -Treatment Response Procedure Tolerated Well Pain Scale: 0-10 Numeric Is Patient Pain Free? Yes Wound debrided: Left Groin ( Medial ) Type of Debridement: Excisional debridement Anesthesia Used: 4% Lidocaine Solution Depth: Down to and including healthy tissue, in the subcutaneous layer Percentage of wound debrided: 100 Instrument Used: 5mm curette Tissue Removed: Slough and devitalized tissue Severity: Fat Layer Exposed Amount of bleeding with debridement: Mild Bleeding Controlled with: Pressure Patient tolerated procedure well - Additional Wound Wound debrided: Left Groin ( Lateral ) Type of Debridement: Excisional debridement Anesthesia Used: 4% Lidocaine Solution Depth: Down to and including healthy tissue, in the subcutaneous layer Percentage of wound debrided: 100 Instrument Used: 3mm curette Tissue Removed: Slough and devitalized tissue Severity: Fat Layer Exposed Amount of bleeding with debridement: Mild Bleeding Controlled with: Pressure Patient tolerated procedure: Patient tolerated procedure well Assessment/Plan Active Problems History of necrotising fasciitis (Chronic) Type 2 diabetes mellitus (Chronic) Non-healing surgical wound of left groin (Chronic) Non-healing surgical wound (Chronic) Assessment: Nonhealing postsurgical wound left groin status post surgical excision of necrotizing fasciitis. Morbid obesity. Type 2 diabetes mellitus Plan: Courtesy Visit. Worsening and new lateral ulceration noted. Likely from increased moisture build up ( heat ).Debridement done as docuemented above, procedure was well tolerated. Continue Meglisorb daily. Also advised to apply antifungal powder to non open area to help keep it dry. Continue increased protein intake. Weight loss recommended. His questions were answered and he was advised to call with any further questions or concerns. Follow up in 2 weeks. This note was generated with Dragon dictation software. It may contain incorrect words, spelling, and punctuation that were not noted in checking the note before signing. [id number]: [id number] Jessica subq tissue 20 sq cm/<
== END 2019-09-20 23:59 ==
LOC: WC 11:30
PROVIDERS: Family Provider Family Medicine; PCP Family Medicine; Visit Provider Nurse Practitioner Family
DX: T81.89XA Other complications of procedures, not elsewhere classified, initial encounter (principal); E11.9 Type 2 diabetes mellitus without complications; Z87.39 Personal history of other diseases of the musculoskeletal system and connective tissue; E66.01 Morbid (severe) obesity due to excess calories; F20.9 Schizophrenia, unspecified; M10.9 Gout, unspecified
CPT/HCPCS: 11042

== ENCOUNTER 2019-10-08 09:00 | Outpatient (RCR) | payer MEDICARE, MEDICAID, SELFPAY ==
[2019-09-21 00:20] VITALS: BP 152/87; PULSE 97; RESP 18; TEMP 36.2
[2019-10-01 11:10] VITALS: BP 148/85; PULSE 83; RESP 22; TEMP 36.4
--- NOTE | 2019-10-01 13:41 | PCM.WC.PN ---
(1) Skin ulcer of abdominal wall with fat layer exposed Status: Chronic Current Visit: Yes Code(s): L98.492 - Non-pressure chronic ulcer of skin of other sites with fat layer exposed Comment: left abdominal fold and left medial groin cluster ulcers (2) History of necrotising fasciitis Status: Chronic Current Visit: Yes Code(s): Z87.39 - Personal history of other diseases of the musculoskeletal system and connective tissue (3) Morbid obesity Status: Chronic Current Visit: Yes Code(s): E66.01 - Morbid (severe) obesity due to excess calories (4) Non-healing surgical wound of left groin Status: Chronic Current Visit: Yes Qualifiers: Code(s): T81.89XA - Other complications of procedures, not elsewhere classified, initial encounter (5) Type 2 diabetes mellitus Status: Chronic Current Visit: Yes Qualifiers: Code(s): E11.9 - Type 2 diabetes mellitus without complications Type of Wound Date of Service: 10/01/19 Chief Complaint: Nonhealing wound status post surgical excision of necrotizing fasciitis left groin History of Wound: 46-year-old white male who presents to the wound healing center today with complaint of left groin ulceration status post surgical excision of necrotizing fasciitis. He is a past medical history which is significant for that of type 2 diabetes mellitus, gout, diabetic neuropathy, schizophrenia, bilateral lymphedema, and schizophrenia. The patient states that what initially started as a pimple in his left groin progressed to necrotizing fasciitis and he had to have this surgically debrided in April 2017. He was admitted to [facility] [place] for 2 weeks and then [facility] for 6 weeks afterwards. He states that the groin ulcer which extends to his left lower abdomen has been slowly improving and he has been doing daily Aquacel AG dressings with an ABD for the drainage. He does state that he has had 3 wound vacs in the past which were unable to be utilized due to the location of his wound. He denies any foul-smelling discharge or systemic signs of infection at this time. He is seen today as a courtesy visit for Gianni Neil CNP. He is tolerating dressings and denies any increase in drainage. He has been also using sweat beater to his groin area to prevent moisture. The patient otherwise denies any fever, chills, nausea, vomiting, shortness of breath, chest pain or pressure, palpitations, orthopnea, syncope or presyncopal episodes. Progress of Wound: Dermatitis intertrigo still present. Patient states that he is applying desonex powder. - Physical Exam Vital Signs Temp Pulse Resp BP 97.6 F L 83 22 H 148/85 H 10/01/19 11:10 10/01/19 11:10 10/01/19 11:10 10/01/19 11:10 General: Alert, Oriented x3, Cooperative, No apparent distress HEENT: Atraumatic, Normocephalic Oral: Moist Mucosa Neck: Supple Lungs: Normal air movement Abdomen: Non Tender, Obese Extremities: No cyanosis Wound Measurements and Assessment WC - Nurse 1 - General Ulcer Measurement Start: 10/01/19 11:10 Freq: Status: Active Protocol: Activity Type Activity Date Activity User E-Sign Co-Sign Detail Recorded Client Recorded Date Recorded By Document 10/01/19 11:10 DL [id number] 10/01/19 11:18 DL 10/01/19 11:10 Wound Center Nurse 1 [Ulcer Assessment] #2 Left Lat Hip -Current Size (cm) - Length 5.4 -Current Size (cm) - Width 0.3 -Current Size (cm) - Depth 0.2 -Total Square Cm 1.62 -Photo Taken No -Exudate Amt None Present -Wound Margin Indistinct, Non -Visible -Granulation Amt Small (1-33%) -Granulation Quality [place] -Necrosis Amt Small (1-33%) -Necrotic Tissue Type Adherent Slough -Structure Exposed N/A -Texture (Inessa-wound Skin Appearance) Scarring -Moisture (Inessa-wound Skin Appearance No Abnormality ) -Color (Inessa-wound Skin Appearance) Rubor -Temperature (Inessa-wound Skin No Abnormality Appearance) (Pt Warm) -Tenderness on Palpation (Inessa-wound No Skin Appearance) -Ulcer Cleansing Wound Cleanser -Foul Odor after Cleansing No -Anesthetic Used 4% Lidocaine Solution #1- LEFT GROIN- POST OP -Current Size (cm) - Length 7.5 -Current Size (cm) - Width 1.5 -Current Size (cm) - Depth 0.2 -Total Square Cm 11.25 -Photo Taken No -Exudate Amt Small -Exudate Type Serosanguineous -Wound Margin Thickened & Rolled Under -Granulation Amt Large (67-100%) -Granulation Quality Red -Necrosis Amt Small (1-33%) -Necrotic Tissue Type Adherent Slough -Structure Exposed N/A -Texture (Inessa-wound Skin Appearance) Scarring -Moisture (Inessa-wound Skin Appearance Maceration ) -Color (Inessa-wound Skin Appearance) No Abnormality -Temperature (Inessa-wound Skin No Abnormality Appearance) (Pt Warm) -Ulcer Cleansing Wound Cleanser -Foul Odor after Cleansing No -Anesthetic Used 4% Lidocaine Solution WC - Nurse 2 - General Ulcer CM Notes Start: 10/01/19 11:10 Freq: Status: Active Protocol: Activity Type Activity Date Activity User E-Sign Co-Sign Detail Recorded Client Recorded Date Recorded By Document 10/01/19 11:31 MW [id number] 10/01/19 11:35 MW 10/01/19 11:31 Wound Center Nurse 2 [Procedure/Treatment] #2 Left Lat Hip -Time 11:31 -Correct Patient Yes -Correct Side, Site, Position Yes -Correct Procedure Yes -Procedure Performed Yes -Type of Procedure Debridement -Clinical Debridement Subcutaneous -Post Debridement Size (cm) - Length 0.5 -Post Debridement Size (cm) - Width 0.6 -Post Debridement Size (cm) - Depth 0.1 -Total Square Cm 0.30 -Wound/Ulcer Outcome Not Healed -Ulcer Cleansing Rinsed/ Irrigated with Saline -Foul Odor after Cleansing No -Bioengineered Tissue No -Bleeding Controlled with Pressure -Offloading No -Treatment Response Procedure Tolerated Well #1- LEFT GROIN- POST OP -Time 11:32 -Correct Patient Yes -Correct Side, Site, Position Yes -Correct Procedure Yes -Procedure Performed Yes -Type of Procedure Debridement -Clinical Debridement Subcutaneous -Post Debridement Size (cm) - Length 0.8 -Post Debridement Size (cm) - Width 7.7 -Post Debridement Size (cm) - Depth 0.2 -Total Square Cm 6.16 -Wound/Ulcer Outcome Not Healed -Ulcer Cleansing Rinsed/ Irrigated with Saline -Foul Odor after Cleansing No -Bioengineered Tissue No -Bleeding Controlled with Pressure -Offloading No -Treatment Response Procedure Tolerated Well [See Physician Procedure note for Specifics] Pain Scale: 0-10 Numeric [Pain] -Is Patient Pain Free? Yes Musculoskeletal: No Muscle Wasting Neurological: Cranial nerves II-XII grossly intact Psych/Mental Status: Normal Affect Debridement Note Post-Debridement Measurements/Treatment WC - Nurse 2 - General Ulcer CM Notes Start: 10/01/19 11:10 Freq: Status: Active Protocol: Activity Type Activity Date Activity User E-Sign Co-Sign Detail Recorded Client Recorded Date Recorded By Document 10/01/19 11:31 MW [id number] 10/01/19 11:35 MW 10/01/19 11:31 Wound Center Nurse 2 #2 Left Lat Hip -Time 11:31 -Correct Patient Yes -Correct Side, Site, Position Yes -Correct Procedure Yes -Procedure Performed Yes -Type of Procedure Debridement -Clinical Debridement Subcutaneous -Post Debridement Size (cm) - Length 0.5 -Post Debridement Size (cm) - Width 0.6 -Post Debridement Size (cm) - Depth 0.1 -Total Square Cm 0.30 -Wound/Ulcer Outcome Not Healed -Ulcer Cleansing Rinsed/ Irrigated with Saline -Foul Odor after Cleansing No -Bioengineered Tissue No -Bleeding Controlled with Pressure -Offloading No -Treatment Response Procedure Tolerated Well #1- LEFT GROIN- POST OP -Time 11:32 -Correct Patient Yes -Correct Side, Site, Position Yes -Correct Procedure Yes -Procedure Performed Yes -Type of Procedure Debridement -Clinical Debridement Subcutaneous -Post Debridement Size (cm) - Length 0.8 -Post Debridement Size (cm) - Width 7.7 -Post Debridement Size (cm) - Depth 0.2 -Total Square Cm 6.16 -Wound/Ulcer Outcome Not Healed -Ulcer Cleansing Rinsed/ Irrigated with Saline -Foul Odor after Cleansing No -Bioengineered Tissue No -Bleeding Controlled with Pressure -Offloading No -Treatment Response Procedure Tolerated Well Pain Scale: 0-10 Numeric Is Patient Pain Free? Yes Wound debrided: Left Groin Type of Debridement: Excisional debridement Anesthesia Used: 4% Lidocaine Solution Depth: Down to and including healthy tissue, in the subcutaneous layer Percentage of wound debrided: 100 Instrument Used: 5mm curette Tissue Removed: Slough and devitalized tissue Severity: Fat Layer Exposed Amount of bleeding with debridement: Mild Bleeding Controlled with: Pressure Patient tolerated procedure well - Additional Wound Wound debrided: Left Lateral Groin/Hip cluster Type of Debridement: Excisional debridement Anesthesia Used: 4% Lidocaine Solution Depth: Down to and including healthy tissue, in the subcutaneous layer Percentage of wound debrided: 100 Instrument Used: 5mm curette Tissue Removed: Slough and devitalized tissue Severity: Fat Layer Exposed Amount of bleeding with debridement: Mild Bleeding Controlled with: Pressure Patient tolerated procedure: Patient tolerated procedure well Assessment/Plan Active Problems History of necrotising fasciitis (Chronic) Type 2 diabetes mellitus (Chronic) Morbid obesity (Chronic) Non-healing surgical wound of left groin (Chronic) Skin ulcer of abdominal wall with fat layer exposed (Chronic) left abdominal fold and left medial groin cluster ulcers Assessment: Nonhealing postsurgical wound left groin status post surgical excision of necrotizing fasciitis. Morbid obesity. Type 2 diabetes mellitus Plan: Courtesy Visit. No significant change/concerns. Still has moisture concerns. Debridement done as docuemented above, procedure was well tolerated. Continue Meglisorb daily. Continue antifungal powder to non open area to help keep it dry. Continue increased protein intake. Weight loss recommended. His questions were answered and he was advised to call with any further questions or concerns. Follow up in 2 weeks. This note was generated with [employer] dictation software. It may contain incorrect words, spelling, and punctuation that were not noted in checking the note before signing. [id number]: [id number] Jessica subq tissue 20 sq cm/<
[2019-10-08 09:09] VITALS: BP 146/88; PULSE 87; RESP 18; TEMP 36.4
--- NOTE | 2019-10-08 09:55 | PN.PCM_ITS ---
(1) Skin ulcer of abdominal wall with fat layer exposed Status: Chronic Current Visit: Yes Code(s): L98.492 - Non-pressure chronic ulcer of skin of other sites with fat layer exposed Comment: left abdominal fold and left medial groin cluster ulcers (2) History of necrotising fasciitis Status: Chronic Current Visit: Yes Code(s): Z87.39 - Personal history of other diseases of the musculoskeletal system and connective tissue (3) Morbid obesity Status: Chronic Current Visit: Yes Code(s): E66.01 - Morbid (severe) obesity due to excess calories (4) Non-healing surgical wound of left groin Status: Chronic Current Visit: Yes Qualifiers: Code(s): T81.89XA - Other complications of procedures, not elsewhere classified, initial encounter (5) Type 2 diabetes mellitus Status: Chronic Current Visit: Yes Qualifiers: Code(s): E11.9 - Type 2 diabetes mellitus without complications Type of Wound Date of Service: 10/08/19 Chief Complaint: Nonhealing wound status post surgical excision of necrotizing fasciitis left groin History of Wound: 46-year-old white male who presents to the wound healing center today with complaint of left groin ulceration status post surgical excision of necrotizing fasciitis. He is a past medical history which is significant for that of type 2 diabetes mellitus, gout, diabetic neuropathy, schizophrenia, bilateral lymphedema, and schizophrenia. The patient states that what initially started as a pimple in his left groin progressed to necrotizing fasciitis and he had to have this surgically debrided in April 2017. He was admitted to [facility] for 2 weeks and then [facility] for 6 weeks afterwards. He states that the groin ulcer which extends to his left lower abdomen has been slowly improving and he has been doing daily Aquacel AG dressings with an ABD for the drainage. He does state that he has had 3 wound vacs in the past which were unable to be utilized due to the location of his wound. He denies any foul-smelling discharge or systemic signs of infection at this time. He is seen today as a courtesy visit for Gianni Neil CNP. He is tolerating dressings and denies any increase in drainage. He has been also using sweat beater to his groin area to prevent moisture. The patient otherwise denies any fever, chills, nausea, vomiting, shortness of breath, chest pain or pressure, palpitations, orthopnea, syncope or presyncopal episodes. Progress of Wound: New concerns at this time. Dermatitis improving. - Physical Exam Vital Signs Temp Pulse Resp BP 97.6 F L 87 18 146/88 H 10/08/19 09:09 10/08/19 09:09 10/08/19 09:09 10/08/19 09:09 General: Alert, Oriented x3, Cooperative, No apparent distress HEENT: Atraumatic Oral: Moist Mucosa Neck: Supple Lungs: Normal air movement Abdomen: Non Tender, Obese Extremities: No cyanosis Skin: Ulcer/ Wound Wound Measurements and Assessment WC - Nurse 1 - General Ulcer Measurement Start: 10/01/19 11:10 Freq: Status: Active Protocol: Activity Type Activity Date Activity User E-Sign Co-Sign Detail Recorded Client Recorded Date Recorded By Document 10/08/19 09:09 RB [id number] 10/08/19 09:12 RB 10/08/19 09:09 Wound Center Nurse 1 [Ulcer Assessment] #5 Left Lat Hip -Combined with other wound No -Current Size (cm) - Length 0.3 -Current Size (cm) - Width 1 -Current Size (cm) - Depth 0.2 -Total Square Cm 0.3 -Tunneling No -Undermining/Tunneling No -Circular Undermining No -Exudate Amt Small -Exudate Type Serosanguineous -Wound Margin Thickened & Rolled Under -Granulation Amt Medium (34-66%) -Granulation Quality [place] -Slough/Fibrin Yes -Necrosis Amt Small (1-33%) -Necrotic Tissue Type Adherent Slough -Structure Exposed N/A -Texture (Inessa-wound Skin Appearance) Assessed, Scarring -Moisture (Inessa-wound Skin Appearance Maceration ) -Color (Inessa-wound Skin Appearance) Assessed -Temperature (Inessa-wound Skin No Abnormality Appearance) (Pt Warm) -Tenderness on Palpation (Inessa-wound No Skin Appearance) -Ulcer Cleansing Wound Cleanser -Foul Odor after Cleansing No -Anesthetic Used 4% Lidocaine Solution #1- LEFT GROIN- POST OP -Combined with other wound No -Current Size (cm) - Length 1 -Current Size (cm) - Width 8.5 -Current Size (cm) - Depth 0.2 -Total Square Cm 8.5 -Tunneling No -Undermining/Tunneling No -Circular Undermining No -Exudate Amt Small -Exudate Type Serosanguineous -Wound Margin Thickened & Rolled Under -Granulation Amt Medium (34-66%) -Granulation Quality [place] -Slough/Fibrin Yes -Necrosis Amt Small (1-33%) -Necrotic Tissue Type Adherent Slough -Structure Exposed N/A -Texture (Inessa-wound Skin Appearance) Assessed, Scarring -Moisture (Inessa-wound Skin Appearance Maceration ) -Color (Inessa-wound Skin Appearance) Assessed -Temperature (Inessa-wound Skin No Abnormality Appearance) (Pt Warm) -Tenderness on Palpation (Inessa-wound No Skin Appearance) -Ulcer Cleansing Wound Cleanser -Foul Odor after Cleansing No -Anesthetic Used 4% Lidocaine Solution Musculoskeletal: No Muscle Wasting Neurological: Cranial nerves II-XII grossly intact Psych/Mental Status: Normal Affect Debridement Note Post-Debridement Measurements/Treatment WC - Nurse 2 - General Ulcer CM Notes Start: 10/01/19 11:10 Freq: Status: Active Protocol: Activity Type Activity Date Activity User E-Sign Co-Sign Detail Recorded Client Recorded Date Recorded By Document 10/01/19 11:31 MW [id number] 10/01/19 11:35 MW 10/01/19 11:31 Wound Center Nurse 2 #5 Left Lat Hip -Time 11:31 -Correct Patient Yes -Correct Side, Site, Position Yes -Correct Procedure Yes -Procedure Performed Yes -Type of Procedure Debridement -Clinical Debridement Subcutaneous -Post Debridement Size (cm) - Length 0.5 -Post Debridement Size (cm) - Width 0.6 -Post Debridement Size (cm) - Depth 0.1 -Total Square Cm 0.30 -Wound/Ulcer Outcome Not Healed -Ulcer Cleansing Rinsed/ Irrigated with Saline -Foul Odor after Cleansing No -Bioengineered Tissue No -Bleeding Controlled with Pressure -Offloading No -Treatment Response Procedure Tolerated Well #1- LEFT GROIN- POST OP -Time 11:32 -Correct Patient Yes -Correct Side, Site, Position Yes -Correct Procedure Yes -Procedure Performed Yes -Type of Procedure Debridement -Clinical Debridement Subcutaneous -Post Debridement Size (cm) - Length 0.8 -Post Debridement Size (cm) - Width 7.7 -Post Debridement Size (cm) - Depth 0.2 -Total Square Cm 6.16 -Wound/Ulcer Outcome Not Healed -Ulcer Cleansing Rinsed/ Irrigated with Saline -Foul Odor after Cleansing No -Bioengineered Tissue No -Bleeding Controlled with Pressure -Offloading No -Treatment Response Procedure Tolerated Well Pain Scale: 0-10 Numeric Is Patient Pain Free? Yes Wound debrided: Left groin Type of Debridement: Excisional debridement Anesthesia Used: 4% Lidocaine Solution Depth: Down to and including healthy tissue, in the subcutaneous layer Percentage of wound debrided: 100 Instrument Used: 3mm curette Tissue Removed: Slough and devitalized tissue Severity: Fat Layer Exposed Amount of bleeding with debridement: Mild Bleeding Controlled with: Pressure Patient tolerated procedure well - Additional Wound Wound debrided: Left hip Type of Debridement: Excisional debridement Anesthesia Used: 4% Lidocaine Solution Depth: Down to and including healthy tissue, in the subcutaneous layer Percentage of wound debrided: 100 Instrument Used: 3mm curette Tissue Removed: Slough and devitalized tissue Severity: Fat Layer Exposed Amount of bleeding with debridement: Mild Bleeding Controlled with: Pressure Patient tolerated procedure: Patient tolerated procedure well Assessment/Plan Active Problems History of necrotising fasciitis (Chronic) Type 2 diabetes mellitus (Chronic) Morbid obesity (Chronic) Non-healing surgical wound of left groin (Chronic) Skin ulcer of abdominal wall with fat layer exposed (Chronic) left abdominal fold and left medial groin cluster ulcers Assessment: Nonhealing postsurgical wound left groin status post surgical excision of necrotizing fasciitis. Morbid obesity. Type 2 diabetes mellitus Plan: Dermatitis improving. Debridement done as docuemented above, procedure was well tolerated. Continue Meglisorb daily. Continue antifungal powder to non open area to help keep it dry. Continue increased protein intake. Weight loss recommended. His questions were answered and he was advised to call with any further questions or concerns. Follow up in 2 weeks. This note was generated with [employer] software. It may contain incorrect words, spelling, and punctuation that were not noted in checking the note before signing. [id number]: [id number] Jessica subq tissue 20 sq cm/<
== END 2019-10-20 23:59 ==
LOC: WC 09:00
PROVIDERS: Family Provider Family Medicine; PCP Family Medicine; Visit Provider Nurse Practitioner Family
DX: T81.89XA Other complications of procedures, not elsewhere classified, initial encounter (principal); Y83.8 Other surgical procedures as the cause of abnormal reaction of the patient, or of later complication, without mention of misadventure at the time of the procedure; E66.01 Morbid (severe) obesity due to excess calories; Z87.39 Personal history of other diseases of the musculoskeletal system and connective tissue; E11.40 Type 2 diabetes mellitus with diabetic neuropathy, unspecified; I89.0 Lymphedema, not elsewhere classified; L30.4 Erythema intertrigo; Z68.43 Body mass index [BMI] 50.0-59.9, adult
CPT/HCPCS: 11042

== ENCOUNTER 2019-11-12 14:30 | Outpatient (RCR) | payer MEDICARE, MEDICAID, SELFPAY ==
[2019-10-21 00:21] VITALS: BP 146/88; PULSE 87; RESP 18; TEMP 36.4
[2019-10-22 09:26] VITALS: BP 143/81; PULSE 92; RESP 22; TEMP 35.7
--- NOTE | 2019-10-22 11:57 | PN.PCM_ITS ---
(1) Non-healing surgical wound of left groin Status: Chronic Current Visit: Yes Qualifiers: Code(s): T81.89XA - Other complications of procedures, not elsewhere classified, initial encounter (2) Type 2 diabetes mellitus Status: Chronic Current Visit: Yes Qualifiers: Code(s): E11.9 - Type 2 diabetes mellitus without complications (3) History of necrotising fasciitis Status: Chronic Current Visit: Yes Code(s): Z87.39 - Personal history of other diseases of the musculoskeletal system and connective tissue Type of Wound Date of Service: 10/22/19 Chief Complaint: Nonhealing wound status post surgical excision of necrotizing fasciitis left groin History of Wound: 46-year-old white male who presents to the wound healing center today with complaint of left groin ulceration status post surgical excis ion of necrotizing fasciitis. He is a past medical history which is significant for that of type 2 diabetes mellitus, gout, diabetic neuropathy, schizophrenia, bilateral lymphedema, and schizophrenia. The patient states that what initially started as a pimple in his left groin progressed to necrotizing fasciitis and he had to have this surgically debrided in April 2017. He was admitted to [facility] for 2 weeks and then [facility] for 6 weeks afterwards. He states that the groin ulcer which extends to his left lower abdomen has been slowly improving and he has been doing daily Aquacel AG dressings with an ABD for the drainage. He does state that he has had 3 wound vacs in the past which were unable to be utilized due to the location of his wound. He denies any foul- smelling discharge or systemic signs of infection at this time. He is seen today as a courtesy visit for Gianni Neil CNP. He is tolerating dressings and denies any increase in drainage. He has been also using sweat beater to his groin area to prevent moisture. The patient otherwise denies any fever, chills, nausea, vomiting, shortness of breath, chest pain or pressure, palpitations, orthopnea, syncope or presyncopal episodes. Progress of Wound: New concerns, lateral ulcers have healed. - Physical Exam Vital Signs Temp Pulse Resp BP 96.2 F L 92 22 H 143/81 H 10/22/19 09:26 10/22/19 09:26 10/22/19 09:26 10/22/19 09:26 General: Alert, Oriented x3, Cooperative, No apparent distress HEENT: Atraumatic, Normocephalic Oral: Moist Mucosa Neck: Supple Lungs: Normal air movement Abdomen: Non Tender, Obese Extremities: No cyanosis Skin: Ulcer/ Wound Wound Measurements and Assessment - Nurse 1 - General Ulcer Measurement Start: 10/22/19 09:26 Freq: Status: Active Protocol: Activity Type Activity Date Activity User E-Sign Co-Sign Detail Recorded Client Recorded Date Recorded By Document 10/22/19 09:26 CHAPO [id number] 10/22/19 09:30 CHAPO 10/22/19 09:26 Wound Center Nurse 1 [Ulcer Assessment] #5 Left Lat Hip -Current Size (cm) - Length 0.1 -Current Size (cm) - Width 0.1 -Current Size (cm) - Depth 0.1 -Total Square Cm 0.01 -Photo Taken No -Exudate Amt None Present -Wound Margin Flat & Intact -Granulation Amt Large (67-100%) -Granulation Quality [employer] -Necrosis Amt None Present (0 %) -Structure Exposed N/A -Texture (Inessa-wound Skin Appearance) Scarring -Moisture (Inessa-wound Skin Appearance No Abnormality ) -Color (Inessa-wound Skin Appearance) No Abnormality -Temperature (Inessa-wound Skin No Abnormality Appearance) (Pt Warm) -Tenderness on Palpation (Inessa-wound No Skin Appearance) -Ulcer Cleansing Wound Cleanser -Foul Odor after Cleansing No #1- LEFT GROIN- POST OP -Current Size (cm) - Length 1 -Current Size (cm) - Width 7.8 -Current Size (cm) - Depth 0.3 -Total Square Cm 7.8 -Photo Taken No -Exudate Amt Small -Exudate Type Serosanguineous -Wound Margin Distinct, Outline Attached -Granulation Amt Large (67-100%) -Granulation Quality [employer],Red -Necrosis Amt Small (1-33%) -Necrotic Tissue Type Adherent Slough -Structure Exposed N/A -Texture (Inessa-wound Skin Appearance) Scarring -Moisture (Inessa-wound Skin Appearance Maceration ) -Color (Inessa-wound Skin Appearance) No Abnormality -Temperature (Inessa-wound Skin No Abnormality Appearance) (Pt Warm) -Tenderness on Palpation (Inessa-wound No Skin Appearance) -Ulcer Cleansing Wound Cleanser -Foul Odor after Cleansing No -Anesthetic Used 4% Lidocaine Solution - Nurse 2 - General Ulcer CM Notes Start: 10/22/19 09:26 Freq: Status: Active Protocol: Activity Type Activity Date Activity User E-Sign Co-Sign Detail Recorded Client Recorded Date Recorded By Document 10/22/19 09:53 MW [id number] 10/22/19 09:55 MW 10/22/19 09:53 Wound Center Nurse 2 [Procedure/Treatment] #5 Left Lat Hip -Time 09:53 -Correct Patient Yes -Correct Side, Site, Position Yes -Correct Procedure Yes -Procedure Performed No -Post Debridement Size (cm) - Length 0 -Post Debridement Size (cm) - Width 0 -Post Debridement Size (cm) - Depth 0 -Total Square Cm 0 -Wound/Ulcer Outcome Healed- Epithelialized #1- LEFT GROIN- POST OP -Time 09:54 -Correct Patient Yes -Correct Side, Site, Position Yes -Correct Procedure Yes -Procedure Performed Yes -Type of Procedure Debridement -Clinical Debridement Subcutaneous -Post Debridement Size (cm) - Length 0.8 -Post Debridement Size (cm) - Width 8.0 -Post Debridement Size (cm) - Depth 0.1 -Total Square Cm 6.40 -Wound/Ulcer Outcome Not Healed -Ulcer Cleansing Rinsed/ Irrigated with Saline -Foul Odor after Cleansing No -Bioengineered Tissue No -Bleeding Controlled with Pressure -Offloading No -Treatment Response Procedure Tolerated Well [See Physician Procedure note for Specifics] Pain Scale: 0-10 Numeric [Pain] -Is Patient Pain Free? Yes Musculoskeletal: No Muscle Wasting Neurological: Cranial nerves II-XII grossly intact Psych/Mental Status: Normal Affect Debridement Note Post-Debridement Measurements/Treatment - Nurse 2 - General Ulcer CM Notes Start: 10/22/19 09:26 Freq: Status: Active Protocol: Activity Type Activity Date Activity User E-Sign Co-Sign Detail Recorded Client Recorded Date Recorded By Document 10/22/19 09:53 MW [id number] 10/22/19 09:55 MW 10/22/19 09:53 Wound Center Nurse 2 #5 Left Lat Hip -Time 09:53 -Correct Patient Yes -Correct Side, Site, Position Yes -Correct Procedure Yes -Procedure Performed No -Post Debridement Size (cm) - Length 0 -Post Debridement Size (cm) - Width 0 -Post Debridement Size (cm) - Depth 0 -Total Square Cm 0 -Wound/Ulcer Outcome Healed- Epithelialized #1- LEFT GROIN- POST OP -Time 09:54 -Correct Patient Yes -Correct Side, Site, Position Yes -Correct Procedure Yes -Procedure Performed Yes -Type of Procedure Debridement -Clinical Debridement Subcutaneous -Post Debridement Size (cm) - Length 0.8 -Post Debridement Size (cm) - Width 8.0 -Post Debridement Size (cm) - Depth 0.1 -Total Square Cm 6.40 -Wound/Ulcer Outcome Not Healed -Ulcer Cleansing Rinsed/ Irrigated with Saline -Foul Odor after Cleansing No -Bioengineered Tissue No -Bleeding Controlled with Pressure -Offloading No -Treatment Response Procedure Tolerated Well Pain Scale: 0-10 Numeric Is Patient Pain Free? Yes Wound debrided: Left groin Type of Debridement: Excisional debridement Anesthesia Used: 4% Lidocaine Solution Depth: Down to and including healthy tissue, in the subcutaneous layer Percentage of wound debrided: 100 Instrument Used: 5mm curette Tissue Removed: Slough and devitalized tissue Severity: Fat Layer Exposed Amount of bleeding with debridement: Mild Bleeding Controlled with: Pressure Patient tolerated procedure well Assessment/Plan Active Problems History of necrotising fasciitis (Chronic) Type 2 diabetes mellitus (Chronic) Non-healing surgical wound of left groin (Chronic) Assessment: Nonhealing postsurgical wound left groin status post surgical excision of necrotizing fasciitis. Morbid obesity. Type 2 diabetes mellitus Plan: Lateral ulcers have healed. Debridement done as docuemented above, procedure was well tolerated. Continue Meglisorb daily. Continue antifungal powder to non open area to help keep it dry. Continue increased protein intake. Weight loss recommended. His questions were answered and he was advised to call with any further questions or concerns. Follow up in 2 weeks. This note was generated with [employer] software. It may contain incorrect words, spelling, and punctuation that were not noted in checking the note before signing. [id number]: [id number] Jessica subq tissue 20 sq cm/<
[2019-11-05 15:22] VITALS: BP 152/86; PULSE 97; RESP 18; TEMP 36.2
--- NOTE | 2019-11-05 17:21 | PN.PCM_ITS ---
(1) Non-healing surgical wound of left groin Status: Chronic Current Visit: Yes Qualifiers: Code(s): T81.89XA - Other complications of procedures, not elsewhere classified, initial encounter (2) History of necrotising fasciitis Status: Chronic Current Visit: Yes Code(s): Z87.39 - Personal history of other diseases of the musculoskeletal system and connective tissue (3) Type 2 diabetes mellitus Status: Chronic Current Visit: Yes Qualifiers: Code(s): E11.9 - Type 2 diabetes mellitus without complications (4) Lymphedema of both lower extremities Status: Acute Current Visit: No Code(s): I89.0 - Lymphedema, not elsewhere classified (5) Morbid obesity Status: Chronic Current Visit: No Code(s): E66.01 - Morbid (severe) obesity due to excess calories Type of Wound Date of Service: 11/05/19 Chief Complaint: Nonhealing wound status post surgical excision of necrotizing fasciitis left groin History of Wound: 46-year-old white male who presents to the wound healing center today with complaint of left groin ulceration status post surgical excision of necrotizing fasciitis. He is a past medical history which is significant for that of type 2 diabetes mellitus, gout, diabetic neuropathy, schizophrenia, bilateral lymphedema, and schizophrenia. The patient states that what initially started as a pimple in his left groin progressed to necrotizing fasciitis and he had to have this surgically debrided in April 2017. He was admitted to [facility] for 2 weeks and then [facility] for 6 weeks afterwards. He states that the groin ulcer which extends to his left lower abdomen has been slowly improving and he has been doing daily Aquacel AG dressings with an ABD for the drainage. He does state that he has had 3 wound vacs in the past which were unable to be utilized due to the location of his wou nd. He denies any foul-smelling discharge or systemic signs of infection at this time. He is seen today as a courtesy visit for Gianni Neil CNP. He is tolerating dressings and denies any increase in drainage. He has been also using sweat beater to his groin area to prevent moisture. The patient otherwise denies any fever, chills, nausea, vomiting, shortness of breath, chest pain or pressure, palpitations, orthopnea, syncope or presyncopal episodes. Progress of Wound: No New concerns, lateral ulcers remain healed. - Physical Exam Vital Signs Temp Pulse Resp BP 97.1 F L 97 18 152/86 H 11/05/19 15:22 11/05/19 15:22 11/05/19 15:22 11/05/19 15:22 General: Alert, Oriented x3, Cooperative, No apparent distress HEENT: Atraumatic Oral: Moist Mucosa Lungs: Clear to auscultation, Normal air movement, No rhonchi, No wheeze Cardiovascular: Regular rate, Regular Rhythm Abdomen: Soft, Obese Extremities: No clubbing, No cyanosis, Edema Skin: Ulcer/ Wound - Left groin ulceration with adherent slough, no signs of infection at this time, slight maceration Wound Measurements and Assessment WC - Nurse 1 - General Ulcer Measurement Start: 10/22/19 09:26 Freq: Status: Active Protocol: Activity Type Activity Date Activity User E-Sign Co-Sign Detail Recorded Client Recorded Date Recorded By Document 11/05/19 15: RB [id number] 11/05/19 15:24 RB 11/05/19 15:22 Wound Center Nurse 1 [Ulcer Assessment] #1- LEFT GROIN- POST OP -Combined with other wound No -Current Size (cm) - Length 1.2 -Current Size (cm) - Width 8 -Current Size (cm) - Depth 0.1 -Total Square Cm 9.6 -Tunneling No -Undermining/Tunneling No -Circular Undermining No -Exudate Amt Medium -Exudate Type Serosanguineous -Wound Margin Thickened & Rolled Under -Granulation Amt Large (67-100%) -Granulation Quality [place] -Slough/Fibrin Yes -Necrosis Amt Small (1-33%) -Necrotic Tissue Type Adherent Slough -Structure Exposed N/A -Texture (Inessa-wound Skin Appearance) Assessed, Scarring -Moisture (Inessa-wound Skin Appearance Assessed, ) Maceration -Color (Inessa-wound Skin Appearance) Assessed -Temperature (Inessa-wound Skin No Abnormality Appearance) (Pt Warm) -Tenderness on Palpation (Inessa-wound No Skin Appearance) -Ulcer Cleansing Wound Cleanser -Foul Odor after Cleansing No -Anesthetic Used 4% Lidocaine Solution WC - Nurse 2 - General Ulcer CM Notes Start: 10/22/19 09:26 Freq: Status: Active Protocol: Activity Type Activity Date Activity User E-Sign Co-Sign Detail Recorded Client Recorded Date Recorded By Document 11/05/19 15:31 MW [id number] 11/05/19 15:33 MW 11/05/19 15:31 Wound Center Nurse 2 [Procedure/Treatment] -Time 15:31 -Correct Patient Yes -Correct Side, Site, Position Yes -Correct Procedure Yes -Procedure Performed Yes -Type of Procedure Debridement -Clinical Debridement Subcutaneous -Post Debridement Size (cm) - Length 0.9 -Post Debridement Size (cm) - Width 7.5 -Post Debridement Size (cm) - Depth 0.1 -Total Square Cm 6.75 -Wound/Ulcer Outcome Not Healed -Ulcer Cleansing Rinsed/ Irrigated with Saline -Foul Odor after Cleansing No -Bioengineered Tissue No -Bleeding Controlled with Pressure -Offloading No -Treatment Response Procedure Tolerated Well [See Physician Procedure note for Specifics] Pain Scale: 0-10 Numeric [Pain] -Is Patient Pain Free? Yes Neurological: Neuro grossly intact Psych/Mental Status: Normal Affect, Appropriate, Alert and oriented to time, place, person, mood and affect Debridement Note Post-Debridement Measurements/Treatment WC - Nurse 2 - General Ulcer CM Notes Start: 10/22/19 09:26 Freq: Status: Active Protocol: Activity Type Activity Date Activity User E-Sign Co-Sign Detail Recorded Client Recorded Date Recorded By Document 10/22/19 09:53 MW [id number] 10/22/19 09:55 MW Document 11/05/19 15:31 MW [id number] 11/05/19 15:33 MW 10/22/19 11/05/19 09:53 15:31 Wound Center Nurse 2 #5 Left Lat Hip -Time 09:53 -Correct Patient Yes -Correct Side, Site, Position Yes -Correct Procedure Yes -Procedure Performed No -Post Debridement Size (cm) - Length 0 -Post Debridement Size (cm) - Width 0 -Post Debridement Size (cm) - Depth 0 -Total Square Cm 0 -Wound/Ulcer Outcome Healed- Epithelialized #1- LEFT GROIN- POST OP -Time 09:54 15:31 -Correct Patient Yes Yes -Correct Side, Site, Position Yes Yes -Correct Procedure Yes Yes -Procedure Performed Yes Yes -Type of Procedure Debridement Debridement -Clinical Debridement Subcutaneous Subcutaneous -Post Debridement Size (cm) - Length 0.8 0.9 -Post Debridement Size (cm) - Width 8.0 7.5 -Post Debridement Size (cm) - Depth 0.1 0.1 -Total Square Cm 6.40 6.75 -Wound/Ulcer Outcome Not Healed Not Healed -Ulcer Cleansing Rinsed/ Rinsed/ Irrigated with Irrigated with Saline Saline -Foul Odor after Cleansing No No -Bioengineered Tissue No No -Bleeding Controlled with Pressure Pressure -Offloading No No -Treatment Response Procedure Procedure Tolerated Well Tolerated Well Pain Scale: 0-10 Numeric Is Patient Pain Free? Yes Yes Wound debrided: Left groin nonhealing ulcer Type of Debridement: Excisional debridement Anesthesia Used: 5% Lidocaine Gel Depth: in the subcutaneous layer Percentage of wound debrided: 100 Instrument Used: 5mm curette Tissue Removed: Slough and devitalized tissue Severity: Fat Layer Exposed Amount of bleeding with debridement: Mild Bleeding Controlled with: Pressure Patient tolerated procedure well Assessment/Plan Active Problems History of necrotising fasciitis (Chronic) Type 2 diabetes mellitus (Chronic) Non-healing surgical wound of left groin (Chronic) Assessment: Nonhealing postsurgical wound left groin status post surgical excision of necrotizing fasciitis. Morbid obesity. Type 2 diabetes mellitus Plan: Lateral ulcers have healed. Debridement done as docuemented above, procedure was well tolerated. Continue Meglisorb daily. Continue antifungal powder to non open area to help keep it dry. Continue increased protein intake. Weight loss recommended. His questions were answered and he was advised to call with any further questions or concerns. Follow up in 2 weeks. This note was generated with [employer] software. It may contain incorrect words, spelling, and punctuation that were not noted in checking the note before signing. [id number]: [id number] Jessica subq tissue 20 sq cm/<
[2019-11-12 14:32] VITALS: BP 141/87; PULSE 100; RESP 20; TEMP 36.6
--- NOTE | 2019-11-12 21:03 | PN.PCM_ITS ---
(1) Non-healing surgical wound of left groin Status: Chronic Current Visit: Yes Qualifiers: Code(s): T81.89XA - Other complications of procedures, not elsewhere classified, initial encounter Comment: x 3 (2) History of necrotising fasciitis Status: Chronic Current Visit: Yes Code(s): Z87.39 - Personal history of other diseases of the musculoskeletal system and connective tissue (3) Type 2 diabetes mellitus Status: Chronic Current Visit: Yes Qualifiers: Code(s): E11.9 - Type 2 diabetes mellitus without complications (4) Lymphedema of both lower extremities Status: Acute Current Visit: No Code(s): I89.0 - Lymphedema, not elsewhere classified (5) Morbid obesity Status: Chronic Current Visit: No Code(s): E66.01 - Morbid (severe) obesity due to excess calories Type of Wound Date of Service: 11/13/19 Chief Complaint: Nonhealing wound status post surgical excision of necrotizing fasciitis left groin History of Wound: 46-year-old white male who presents to the wound healing ce nter today with complaint of left groin ulceration status post surgical excision of necrotizing fasciitis. He is a past medical history which is significant for that of type 2 diabetes mellitus, gout, diabetic neuropathy, schizophrenia, bilateral lymphedema, and schizophrenia. The patient states that what initially started as a pimple in his left groin progressed to necrotizing fasciitis and he had to have this surgically debrided in April 2017. He was admitted to [facility] for 2 weeks and then [facility] for 6 weeks afterwards. He states that the groin ulcer which extends to his left lower abdomen has been slowly improving and he has been doing daily Aquacel AG dressings with an ABD for the drainage. He does state that he has had 3 wound vacs in the past which were unable to be utilized due to the location of his wound. He denies any foul- smelling discharge or systemic signs of infection at this time. He is seen today as a courtesy visit for Gianni Neil CNP. He is tolerating dressings and denies any increase in drainage. He has been also using sweat beater to his groin area to prevent moisture. The patient otherwise denies any fever, chills, nausea, vomiting, shortness of breath, chest pain or pressure, palpitations, orthopnea, syncope or presyncopal episodes. Progress of Wound: 11/12/2019?more maceration noted today and heat, patient now has 3 groin ulcers with an additional lateral and medial ulceration as well. Given the excess moisture will order a super Absorbent dressing to be utilized over top of his current wound care plan. - Physical Exam Vital Signs Temp Pulse Resp BP 97.9 F 100 20 H 141/87 H 11/12/19 14:32 11/12/19 14:32 11/12/19 14:32 11/12/19 14:32 General: Alert, Oriented x3, Cooperative, No apparent distress HEENT: Atraumatic Oral: Moist Mucosa Cardiovascular: Regular rate Abdomen: Soft, Non Tender, Obese Extremities: No clubbing, No cyanosis, Edema - Generalized bilateral lower extremity edema Skin: Ulcer/ Wound - See nursing documentation, left groin ulcer, medial and lateral groin ulcer as well with adherent slough and surrounding maceration no Signs of obvious infection at this time. Wound Measurements and Assessment WC - Nurse 1 - General Ulcer Measurement Start: 10/22/19 09:26 Freq: Status: Active Protocol: Activity Type Activity Date Activity User E-Sign Co-Sign Detail Recorded Client Recorded Date Recorded By Document 11/12/19 14:32 [facility] [id number] 11/12/19 14:38 [facility] 11/12/19 14:32 Wound Center Nurse 1 [Ulcer Assessment] #1- LEFT GROIN- POST OP -Combined with other wound No -Current Size (cm) - Length 13.8 -Current Size (cm) - Width 1 -Current Size (cm) - Depth 0.2 -Total Square Cm 13.8 -Photo Taken No -Epithelialization None Present -Tunneling No -Undermining/Tunneling No -Circular Undermining No -Exudate Amt Small -Exudate Type Serosanguineous -Wound Margin Thickened -Granulation Amt Large (67-100%) -Granulation Quality [place] -Slough/Fibrin Yes -Necrosis Amt Small (1-33%) -Necrotic Tissue Type Adherent Slough -Texture (Inessa-wound Skin Appearance) Assessed, Scarring -Moisture (Inessa-wound Skin Appearance Assessed, ) Maceration -Color (Inessa-wound Skin Appearance) Assessed -Temperature (Inessa-wound Skin No Abnormality Appearance) (Pt Warm) -Tenderness on Palpation (Inessa-wound No Skin Appearance) -Ulcer Cleansing soapy water -Foul Odor after Cleansing No -Anesthetic Used 4% Lidocaine Solution WC - Nurse 2 - General Ulcer CM Notes Start: 10/22/19 09:26 Freq: Status: Active Protocol: Activity Type Activity Date Activity User E-Sign Co-Sign Detail Recorded Client Recorded Date Recorded By Document 11/12/19 16:21 PL [id number] 11/12/19 16:25 PL 11/12/19 16:21 Wound Center Nurse 2 [Procedure/Treatment] #5 Left Lat Hip -Time 15:25 -Correct Patient Yes -Correct Side, Site, Position Yes -Correct Procedure Yes -Procedure Performed Yes -Type of Procedure Debridement -Clinical Debridement Subcutaneous -Post Debridement Size (cm) - Length 0.5 -Post Debridement Size (cm) - Width 2 -Post Debridement Size (cm) - Depth 0.1 -Total Square (cm) 1.0 -Wound/Ulcer Outcome Not Healed -Ulcer Cleansing Rinsed/ Irrigated with Saline -Foul Odor after Cleansing No -Bleeding Controlled with Pressure -Treatment Response Procedure Tolerated Well #4 LEFT MEDIAL GROIN CLUSTER -Time 15:25 -Correct Patient Yes -Correct Side, Site, Position Yes -Correct Procedure Yes -Procedure Performed Yes -Type of Procedure Debridement -Clinical Debridement Subcutaneous -Post Debridement Size (cm) - Length 0.8 -Post Debridement Size (cm) - Width 3.0 -Post Debridement Size (cm) - Depth 0.1 -Total Square (cm) 2.40 -Wound/Ulcer Outcome Not Healed -Ulcer Cleansing Rinsed/ Irrigated with Saline -Foul Odor after Cleansing No -Bleeding Controlled with Pressure -Treatment Response Procedure Tolerated Well #1- LEFT GROIN- POST OP -Time 15:25 -Correct Patient Yes -Correct Side, Site, Position Yes -Correct Procedure Yes -Procedure Performed Yes -Type of Procedure Debridement -Clinical Debridement Subcutaneous -Post Debridement Size (cm) - Length 1.2 -Post Debridement Size (cm) - Width 7 -Post Debridement Size (cm) - Depth 0.1 -Total Square (cm) 8.4 -Wound/Ulcer Outcome Not Healed -Ulcer Cleansing Rinsed/ Irrigated with Saline -Foul Odor after Cleansing No -Bleeding Controlled with Pressure -Treatment Response Procedure Tolerated Well [See Physician Procedure note for Specifics] Pain Scale: 0-10 Numeric [Pain] -Is Patient Pain Free? Yes Neurological: Neuro grossly intact Psych/Mental Status: Normal Affect, Appropriate Debridement Note Post-Debridement Measurements/Treatment WC - Nurse 2 - General Ulcer CM Notes Start: 10/22/19 09:26 Freq: Status: Active Protocol: Activity Type Activity Date Activity User E-Sign Co-Sign Detail Recorded Client Recorded Date Recorded By Document 10/22/19 09:53 MW [id number] 10/22/19 09:55 MW Document 11/05/19 15:31 MW [id number] 11/05/19 15:33 MW Document 11/12/19 16:21 PL [id number] 11/12/19 16:25 PL 10/22/19 11/05/19 11/12/19 09:53 15:31 16:21 Wound Center Nurse 2 #5 Left Lat Hip -Time 09:53 15:25 -Correct Patient Yes Yes -Correct Side, Site, Position Yes Yes -Correct Procedure Yes Yes -Procedure Performed No Yes -Type of Procedure Debridement -Clinical Debridement Subcutaneous -Post Debridement Size (cm) - Length 0 0.5 -Post Debridement Size (cm) - Width 0 2 -Post Debridement Size (cm) - Depth 0 0.1 -Total Square (cm) 0 1.0 -Wound/Ulcer Outcome Healed- Not Healed Epithelialized -Ulcer Cleansing Rinsed/ Irrigated with Saline -Foul Odor after Cleansing No -Bleeding Controlled with Pressure -Treatment Response Procedure Tolerated Well #4 LEFT MEDIAL GROIN CLUSTER -Time 15:25 -Correct Patient Yes -Correct Side, Site, Position Yes -Correct Procedure Yes -Procedure Performed Yes -Type of Procedure Debridement -Clinical Debridement Subcutaneous -Post Debridement Size (cm) - Length 0.8 -Post Debridement Size (cm) - Width 3.0 -Post Debridement Size (cm) - Depth 0.1 -Total Square (cm) 2.40 -Wound/Ulcer Outcome Not Healed -Ulcer Cleansing Rinsed/ Irrigated with Saline -Foul Odor after Cleansing No -Bleeding Controlled with Pressure -Treatment Response Procedure Tolerated Well #1- LEFT GROIN- POST OP -Time 09:54 15:31 15:25 -Correct Patient Yes Yes Yes -Correct Side, Site, Position Yes Yes Yes -Correct Procedure Yes Yes Yes -Procedure Performed Yes Yes Yes -Type of Procedure Debridement Debridement Debridement -Clinical Debridement Subcutaneous Subcutaneous Subcutaneous -Post Debridement Size (cm) - Length 0.8 0.9 1.2 -Post Debridement Size (cm) - Width 8.0 7.5 7 -Post Debridement Size (cm) - Depth 0.1 0.1 0.1 -Total Square (cm) 6.40 6.75 8.4 -Wound/Ulcer Outcome Not Healed Not Healed Not Healed -Ulcer Cleansing Rinsed/ Rinsed/ Rinsed/ Irrigated with Irrigated with Irrigated with Saline Saline Saline -Foul Odor after Cleansing No No No -Bioengineered Tissue No No -Bleeding Controlled with Pressure Pressure Pressure -Offloading No No -Treatment Response Procedure Procedure Procedure Tolerated Well Tolerated Well Tolerated Well Pain Scale: 0-10 Numeric Is Patient Pain Free? Yes Yes Yes Wound debrided: Left groin ulcerations Laterality: Left Type of Debridement: Excisional debridement Anesthesia Used: 5% Lidocaine Gel Depth: in the subcutaneous layer Percentage of wound debrided: 100 Instrument Used: 5mm curette Tissue Removed: Slough and devitalized tissue Severity: Fat Layer Exposed Amount of bleeding with debridement: Mild Bleeding Controlled with: Pressure Patient tolerated procedure well Assessment/Plan Active Problems History of necrotising fasciitis (Chronic) Type 2 diabetes mellitus (Chronic) Non-healing surgical wound of left groin (Chronic) x 3 Assessment: Nonhealing postsurgical wound left groin status post surgical excision of necrotizing fasciitis. Morbid obesity. Type 2 diabetes mellitus Plan: Patient now has lateral and medial groin ulcers due to excess moisture and maceration.Debridement done as docuemented above, procedure was well tolerated. Continue Meglisorb dailyAnd as needed and will also apply for super absorbent dressing over top. Continue antifungal powder to non open area to help keep it dry. Continue increased protein intake. Weight loss recommended. His questions were answered and he was advised to call with any further questions or concerns. Follow up in 1 week Or sooner if needed. This note was generated with [employer] software. It may contain incorrect words, spelling, and punctuation that were not noted in checking the note before signing. [id number]: [id number] Jessica subq tissue 20 sq cm/<
[2019-11-19 15:09] VITALS: BP 151/88; PULSE 91; RESP 18; TEMP 36.2
--- NOTE | 2019-11-19 15:23 | PN.PCM_ITS ---
(1) Non-healing surgical wound of left groin Status: Chronic Qualifiers: Code(s): T81.89XA - Other complications of procedures, not elsewhere classified, initial encounter Comment: x 3 (2) History of necrotising fasciitis Status: Chronic Code(s): Z87.39 - Personal history of other diseases of the musculoskeletal system and connective tissue (3) Type 2 diabetes mellitus Status: Chronic Qualifiers: Code(s): E11.9 - Type 2 diabetes mellitus without complications (4) Lymphedema of both lower extremities Status: Acute Code(s): I89.0 - Lymphedema, not elsewhere classified (5) Morbid obesity Status: Chronic Code(s): E66.01 - Morbid (severe) obesity due to excess calories Type of Wound Date of Service: 11/19/19 Chief Complaint: Nonhealing wound status post surgical excision of necrotizing fasciitis left groin History of Wound: 46-year-old white male who presents to the wound healing center today with complaint of left groin ulceration status post surgical excision of necrotizing fasciitis. He is a past medical history which is significant for that of type 2 diabetes mellitus, gout, diabetic neuropathy, schizophrenia, bilateral lymphedema, and schizophrenia. The patient states that what initially started as a pimple in his left groin progressed to necrotizing fasciitis and he had to have this surgically debrided in April 2017. He was admitted to [facility] for 2 weeks and then [facility] for 6 weeks afterwards. He states that the groin ulcer which extends to his left lower abdomen has been slowly improving and he has been doing daily Aquacel AG dressings with an ABD for the drainage. He does state that he has had 3 wound vacs in the past which were unable to be utilized due to the location of his wound. He denies any foul-smelling discharge or systemic signs of infection at this time. He is seen today as a courtesy visit for Gianni Neil CNP. He is tolerating dressings and denies any increase in drainage. He has been also using sweat beater to his groin area to prevent moisture. The patient otherwise denies any fever, chills, nausea, vomiting, shortness of breath, chest pain or pressure, palpitations, orthopnea, syncope or presyncopal episodes. Progress of Wound: 11/12/2019?more maceration noted today and heat, patient now has 3 groin ulcers with an additional lateral and medial ulceration as well. Given the excess moisture will order a super Absorbent dressing to be utilized over top of his current wound care plan. 11/19/19-wounds are stable, no new concerns, patient back to using melgisorb dressings, has been trying to work on ways to reduce excess moisture. - Physical Exam Vital Signs Temp Pulse Resp BP 97.1 F L 91 18 151/88 H 11/19/19 15:09 11/19/19 15:09 11/19/19 15:09 11/19/19 15:09 General: Alert, Oriented x3, Cooperative, No apparent distress HEENT: Atraumatic Oral: Moist Mucosa Lungs: Clear to auscultation, Normal air movement Cardiovascular: Regular rate, Regular Rhythm Abdomen: Soft Extremities: No clubbing, No cyanosis, Edema Skin: Ulcer/ Wound - left groin ulcers with adherant slough, no signs of infection at this time, silver nitrate used due to excess bleeding Wound Measurements and Assessment WC - Nurse 1 - General Ulcer Measurement Start: 10/22/19 09:26 Freq: Status: Active Protocol: Activity Type Activity Date Activity User E-Sign Co-Sign Detail Recorded Client Recorded Date Recorded By Document 11/19/19 15:09 [facility] [id number] 11/19/19 15:18 [facility] 11/19/19 15:09 Wound Center Nurse 1 [Ulcer Assessment] #5 Left Lat Hip -Combined with other wound No -Current Size (cm) - Length 0.2 -Current Size (cm) - Width 1.5 -Current Size (cm) - Depth 0.2 -Total Square Cm 0.30 -Photo Taken No -Epithelialization None Present -Tunneling No -Undermining/Tunneling No -Circular Undermining No -Exudate Amt Small -Exudate Type Serous -Wound Margin Thickened & Rolled Under -Granulation Amt Large (67-100%) -Granulation Quality [place] -Slough/Fibrin No -Necrosis Amt None Present (0 %) -Texture (Inessa-wound Skin Appearance) Assessed -Moisture (Inessa-wound Skin Appearance Assessed, ) Maceration -Color (Inessa-wound Skin Appearance) Assessed,Palor -Temperature (Insesa-wound Skin No Abnormality Appearance) (Pt Warm) -Tenderness on Palpation (Inessa-wound No Skin Appearance) -Ulcer Cleansing soapy water -Foul Odor after Cleansing No -Anesthetic Used 4% Lidocaine Solution #4 LEFT MEDIAL GROIN CLUSTER -Combined with other wound No -Current Size (cm) - Length 0.3 -Current Size (cm) - Width 1.2 -Current Size (cm) - Depth 0.3 -Total Square Cm 0.36 -Photo Taken No -Epithelialization None Present -Tunneling No -Undermining/Tunneling No -Circular Undermining No -Exudate Amt Small -Exudate Type Serous -Wound Margin Thickened & Rolled Under -Granulation Amt Large (67-100%) -Granulation Quality [place] -Slough/Fibrin No -Necrosis Amt None Present (0 %) -Texture (Inessa-wound Skin Appearance) Assessed, Scarring -Moisture (Inessa-wound Skin Appearance Assessed, ) Maceration -Color (Inessa-wound Skin Appearance) Assessed,Palor -Temperature (Inessa-wound Skin No Abnormality Appearance) (Pt Warm) -Tenderness on Palpation (Inessa-wound No Skin Appearance) -Ulcer Cleansing soapy water -Foul Odor after Cleansing No -Anesthetic Used 4% Lidocaine Solution #1- LEFT GROIN- POST OP -Combined with other wound No -Current Size (cm) - Length 0.8 -Current Size (cm) - Width 7.2 -Current Size (cm) - Depth 0.1 -Total Square Cm 5.76 -Photo Taken No -Epithelialization None Present -Tunneling No -Undermining/Tunneling No -Circular Undermining No -Exudate Amt Small -Exudate Type Serous -Wound Margin Thickened & Rolled Under -Granulation Amt Large (67-100%) -Granulation Quality [place] -Slough/Fibrin No -Necrosis Amt None Present (0 %) -Texture (Inessa-wound Skin Appearance) Assessed -Moisture (Inessa-wound Skin Appearance Assessed, ) Maceration -Color (Inessa-wound Skin Appearance) Assessed,Palor -Temperature (Inessa-wound Skin No Abnormality Appearance) (Pt Warm) -Tenderness on Palpation (Inessa-wound No Skin Appearance) -Ulcer Cleansing soapy water -Foul Odor after Cleansing No -Anesthetic Used 4% Lidocaine Solution WC - Nurse 2 - General Ulcer CM Notes Start: 10/22/19 09:26 Freq: Status: Active Protocol: Activity Type Activity Date Activity User E-Sign Co-Sign Detail Recorded Client Recorded Date Recorded By Document 11/19/19 15:38 MW [id number] 11/19/19 15:44 MW 11/19/19 15:38 Wound Center Nurse 2 [Procedure/Treatment] #5 Left Lat Hip -Time 15:43 -Correct Patient Yes -Correct Side, Site, Position Yes -Correct Procedure Yes -Procedure Performed Yes -Type of Procedure Debridement -Clinical Debridement Subcutaneous -Post Debridement Size (cm) - Length 0.5 -Post Debridement Size (cm) - Width 1.5 -Post Debridement Size (cm) - Depth 0.1 -Total Square (cm) 0.75 -Wound/Ulcer Outcome Not Healed -Ulcer Cleansing Rinsed/ Irrigated with Saline -Foul Odor after Cleansing No -Bioengineered Tissue No -Bleeding Controlled with Pressure -Offloading No -Treatment Response Procedure Tolerated Well #4 LEFT MEDIAL GROIN CLUSTER -Time 15:43 -Correct Patient Yes -Correct Side, Site, Position Yes -Correct Procedure Yes -Procedure Performed Yes -Type of Procedure Debridement -Clinical Debridement Subcutaneous -Post Debridement Size (cm) - Length 0.6 -Post Debridement Size (cm) - Width 1.5 -Post Debridement Size (cm) - Depth 0.1 -Total Square (cm) 0.90 -Wound/Ulcer Outcome Not Healed -Ulcer Cleansing Rinsed/ Irrigated with Saline -Foul Odor after Cleansing No -Bioengineered Tissue No -Bleeding Controlled with Pressure -Offloading No -Treatment Response Procedure Tolerated Well #1- LEFT GROIN- POST OP -Time 15:43 -Correct Patient Yes -Correct Side, Site, Position Yes -Correct Procedure Yes -Procedure Performed Yes -Type of Procedure Debridement -Clinical Debridement Subcutaneous -Post Debridement Size (cm) - Length 1.6 -Post Debridement Size (cm) - Width 7.4 -Post Debridement Size (cm) - Depth 0.1 -Total Square (cm) 11.84 -Wound/Ulcer Outcome Not Healed -Ulcer Cleansing Rinsed/ Irrigated with Saline -Foul Odor after Cleansing No -Bioengineered Tissue No -Bleeding Controlled with Pressure -Offloading No -Treatment Response Procedure Tolerated Well [See Physician Procedure note for Specifics] Pain Scale: 0-10 Numeric [Pain] -Is Patient Pain Free? Yes Neurological: Neuro grossly intact Psych/Mental Status: Normal Affect, Appropriate, Alert and oriented to time, place, person, mood and affect Debridement Note Post-Debridement Measurements/Treatment WC - Nurse 2 - General Ulcer CM Notes Start: 10/22/19 09:26 Freq: Status: Active Protocol: Activity Type Activity Date Activity User E-Sign Co-Sign Detail Recorded Client Recorded Date Recorded By Document 10/22/19 09:53 MW [id number] 10/22/19 09:55 MW Document 11/05/19 15:31 MW [id number] 11/05/19 15:33 MW Document 11/12/19 16:21 PL [id number] 11/12/19 16:25 PL Document 11/19/19 15:38 MW [id number] 11/19/19 15:44 MW 10/22/19 11/05/19 11/12/19 09:53 15:31 16:21 Wound Center Nurse 2 #5 Left Lat Hip -Time 09:53 15:25 -Correct Patient Yes Yes -Correct Side, Site, Position Yes Yes -Correct Procedure Yes Yes -Procedure Performed No Yes -Type of Procedure Debridement -Clinical Debridement Subcutaneous -Post Debridement Size (cm) - Length 0 0.5 -Post Debridement Size (cm) - Width 0 2 -Post Debridement Size (cm) - Depth 0 0.1 -Total Square (cm) 0 1.0 -Wound/Ulcer Outcome Healed- Not Healed Epithelialized -Ulcer Cleansing Rinsed/ Irrigated with Saline -Foul Odor after Cleansing No -Bioengineered Tissue -Bleeding Controlled with Pressure -Offloading -Treatment Response Procedure Tolerated Well #4 LEFT MEDIAL GROIN CLUSTER -Time 15:25 -Correct Patient Yes -Correct Side, Site, Position Yes -Correct Procedure Yes -Procedure Performed Yes -Type of Procedure Debridement -Clinical Debridement Subcutaneous -Post Debridement Size (cm) - Length 0.8 -Post Debridement Size (cm) - Width 3.0 -Post Debridement Size (cm) - Depth 0.1 -Total Square (cm) 2.40 -Wound/Ulcer Outcome Not Healed -Ulcer Cleansing Rinsed/ Irrigated with Saline -Foul Odor after Cleansing No -Bioengineered Tissue -Bleeding Controlled with Pressure -Offloading -Treatment Response Procedure Tolerated Well #1- LEFT GROIN- POST OP -Time 09:54 15:31 15:25 -Correct Patient Yes Yes Yes -Correct Side, Site, Position Yes Yes Yes -Correct Procedure Yes Yes Yes -Procedure Performed Yes Yes Yes -Type of Procedure Debridement Debridement Debridement -Clinical Debridement Subcutaneous Subcutaneous Subcutaneous -Post Debridement Size (cm) - Length 0.8 0.9 1.2 -Post Debridement Size (cm) - Width 8.0 7.5 7 -Post Debridement Size (cm) - Depth 0.1 0.1 0.1 -Total Square (cm) 6.40 6.75 8.4 -Wound/Ulcer Outcome Not Healed Not Healed Not Healed -Ulcer Cleansing Rinsed/ Rinsed/ Rinsed/ Irrigated with Irrigated with Irrigated with Saline Saline Saline -Foul Odor after Cleansing No No No -Bioengineered Tissue No No -Bleeding Controlled with Pressure Pressure Pressure -Offloading No No -Treatment Response Procedure Procedure Procedure Tolerated Well Tolerated Well Tolerated Well Pain Scale: 0-10 Numeric Is Patient Pain Free? Yes Yes Yes 11/19/19 15:38 Wound Center Nurse 2 #5 Left Lat Hip -Time 15:43 -Correct Patient Yes -Correct Side, Site, Position Yes -Correct Procedure Yes -Procedure Performed Yes -Type of Procedure Debridement -Clinical Debridement Subcutaneous -Post Debridement Size (cm) - Length 0.5 -Post Debridement Size (cm) - Width 1.5 -Post Debridement Size (cm) - Depth 0.1 -Total Square (cm) 0.75 -Wound/Ulcer Outcome Not Healed -Ulcer Cleansing Rinsed/ Irrigated with Saline -Foul Odor after Cleansing No -Bioengineered Tissue No -Bleeding Controlled with Pressure -Offloading No -Treatment Response Procedure Tolerated Well #4 LEFT MEDIAL GROIN CLUSTER -Time 15:43 -Correct Patient Yes -Correct Side, Site, Position Yes -Correct Procedure Yes -Procedure Performed Yes -Type of Procedure Debridement -Clinical Debridement Subcutaneous -Post Debridement Size (cm) - Length 0.6 -Post Debridement Size (cm) - Width 1.5 -Post Debridement Size (cm) - Depth 0.1 -Total Square (cm) 0.90 -Wound/Ulcer Outcome Not Healed -Ulcer Cleansing Rinsed/ Irrigated with Saline -Foul Odor after Cleansing No -Bioengineered Tissue No -Bleeding Controlled with Pressure -Offloading No -Treatment Response Procedure Tolerated Well #1- LEFT GROIN- POST OP -Time 15:43 -Correct Patient Yes -Correct Side, Site, Position Yes -Correct Procedure Yes -Procedure Performed Yes -Type of Procedure Debridement -Clinical Debridement Subcutaneous -Post Debridement Size (cm) - Length 1.6 -Post Debridement Size (cm) - Width 7.4 -Post Debridement Size (cm) - Depth 0.1 -Total Square (cm) 11.84 -Wound/Ulcer Outcome Not Healed -Ulcer Cleansing Rinsed/ Irrigated with Saline -Foul Odor after Cleansing No -Bioengineered Tissue No -Bleeding Controlled with Pressure -Offloading No -Treatment Response Procedure Tolerated Well Pain Scale: 0-10 Numeric Is Patient Pain Free? Yes Wound debrided: left groin ulcers Laterality: Left Type of Debridement: Excisional debridement Anesthesia Used: 5% Lidocaine Gel Depth: Down to and including healthy tissue, in the subcutaneous layer Percentage of wound debrided: 100 Instrument Used: 3mm curette, 5mm curette Tissue Removed: slough and devitalized tissue Severity: Fat Layer Exposed Amount of bleeding with debridement: Mild Bleeding Controlled with: Compression and gauze, Silver Nitrate Patient tolerated procedure well Assessment/Plan Assessment: Nonhealing postsurgical wound left groin status post surgical excision of necrotizing fasciitis. Morbid obesity. Type 2 diabetes mellitus Plan: Patient now has lateral and medial groin ulcers due to excess moisture and maceration.Debridement done as documented above, procedure was well tolerated. Continue Meglisorb daily And as needed Continue antifungal powder to non open area to help keep it dry. Continue increased protein intake. Weight loss recommended. His questions were answered and he was advised to call with any further questions or concerns. Follow up in 1 week Or sooner if needed. This note was generated with [email or web address] software. It may contain incorrect words, spelling, and punctuation that were not noted in checking the note before signing. [id number]: [id number] Jessica subq tissue 20 sq cm/<
== END 2019-11-20 23:59 ==
LOC: WC 14:30
PROVIDERS: Family Provider Family Medicine; PCP Family Medicine; Visit Provider Nurse Practitioner Family
DX: T81.89XA Other complications of procedures, not elsewhere classified, initial encounter (principal); Z87.39 Personal history of other diseases of the musculoskeletal system and connective tissue; Y83.8 Other surgical procedures as the cause of abnormal reaction of the patient, or of later complication, without mention of misadventure at the time of the procedure; E11.40 Type 2 diabetes mellitus with diabetic neuropathy, unspecified; I89.0 Lymphedema, not elsewhere classified; E66.01 Morbid (severe) obesity due to excess calories; Z68.43 Body mass index [BMI] 50.0-59.9, adult
CPT/HCPCS: 11042

== ENCOUNTER 2019-12-10 12:45 | Outpatient (RCR) | payer MEDICARE, MEDICAID, SELFPAY ==
[2019-11-21 00:21] VITALS: BP 151/88; PULSE 91; RESP 18; TEMP 36.2
[2019-11-26 15:05] VITALS: BP 150/85; PULSE 88; RESP 22; TEMP 36.6
--- NOTE | 2019-11-26 19:22 | PN.PCM_ITS ---
(1) Non-healing surgical wound of left groin Status: Chronic Current Visit: Yes Qualifiers: Code(s): T81.89XA - Other complications of procedures, not elsewhere classified, initial encounter Comment: x 3 (2) Lymphedema of both lower extremities Status: Acute Current Visit: No Code(s): I89.0 - Lymphedema, not elsewhere classified (3) Diabetic neuropathy Status: Chronic Current Visit: No Code(s): E11.40 - Type 2 diabetes mellitus with diabetic neuropathy, unspecified (4) History of necrotising fasciitis Status: Chronic Current Visit: No Code(s): Z87.39 - Personal history of other diseases of the musculoskeletal system and connective tissue (5) Morbid obesity Status: Chronic Current Visit: No Code(s): E66.01 - Morbid (severe) obesity due to excess calories (6) Skin ulcer of abdominal wall with fat layer exposed Status: Chronic Current Visit: No Code(s): L98.492 - Non-pressure chronic ulcer of skin of other sites with fat layer exposed Comment: left abdominal fold and left medial groin cluster ulcers (7) Type 2 diabetes mellitus Status: Chronic Current Visit: No Qualifiers: Code(s): E11.9 - Type 2 diabetes mellitus without complications Type of Wound Date of Service: 11/26/19 Chief Complaint: Nonhealing wound status post surgical excision of necrotizing fasciitis left groin History of Wound: 46-year-old white male who presents to the wound healing center today with complaint of left groin ulceration status post surgical excision of necrotizing fasciitis. He is a past medical history which is significant for that of type 2 diabetes mellitus, gout, diabetic neuropathy, schizophrenia, bilateral lymphedema, and schizophrenia. The patient states that what initially started as a pimple in his left groin progressed to necrotizing fasciitis and he had to have this surgically debrided in April 2017. He was admitted to [facility] and [facility]. He states that the groin ulcer which extends to his left lower abdomen has been slowly improving and he has been doing daily Aquacel AG dressings with an ABD for the drainage. He does state that he has had 3 wound vacs in the past which were unable to be utilized due to the location of his wound. He denies any foul-smelling discharge or systemic signs of infection at this time. He is seen today as a courtesy visit for Gianni Neil CNP. He is neal erating dressings and denies any increase in drainage. He has been also using sweat beater to his groin area to prevent moisture. The patient otherwise denies any fever, chills, nausea, vomiting, shortness of breath, chest pain or pressure, palpitations, orthopnea, syncope or presyncopal episodes. Progress of Wound: 11/12/2019?more maceration noted today and heat, patient now has 3 groin ulcers with an additional lateral and medial ulceration as well. Given the excess moisture will order a super Absorbent dressing to be utilized over top of his current wound care plan. 11/27/2019?lateral ulcer has healed, left groin ulcer and medial ulcer continues with maceration, otherwise no further concerns - Physical Exam Vital Signs Temp Pulse Resp BP 97.9 F 88 22 H 150/85 H 11/26/19 15:05 11/26/19 15:05 11/26/19 15:05 11/26/19 15:05 General: Alert, Oriented x3, Cooperative, No apparent distress HEENT: Atraumatic Oral: Moist Mucosa Neck: Supple Lungs: Clear to auscultation, Normal air movement Cardiovascular: Regular rate, Regular Rhythm Abdomen: Soft, Non Tender Extremities: No clubbing, No cyanosis Skin: Ulcer/ Wound - See nursing documentation, maceration noted to left groin ulcer, no signs of obvious infection at this time Wound Measurements and Assessment WC - Nurse 1 - General Ulcer Measurement Start: 11/26/19 15:04 Freq: Status: Active Protocol: Activity Type Activity Date Activity User E-Sign Co-Sign Detail Recorded Client Recorded Date Recorded By Document 11/26/19 15:05 DL [id number] 11/26/19 15:10 DL 11/26/19 15:05 Wound Center Nurse 1 [Ulcer Assessment] #5 Left Lat Hip -Current Size (cm) - Length 0.1 -Current Size (cm) - Width 0.1 -Current Size (cm) - Depth 0.1 -Total Square Cm 0.01 -Photo Taken No -Exudate Amt None Present -Wound Margin Flat & Intact -Granulation Amt None Present (0 %) -Necrosis Amt Small (1-33%) -Necrotic Tissue Type Adherent Slough -Structure Exposed N/A -Texture (Inessa-wound Skin Appearance) Scarring -Moisture (Inessa-wound Skin Appearance Dry/Scaly ) -Color (Inessa-wound Skin Appearance) No Abnormality -Temperature (Inessa-wound Skin No Abnormality Appearance) (Pt Warm) -Tenderness on Palpation (Inessa-wound No Skin Appearance) -Ulcer Cleansing Wound Cleanser -Foul Odor after Cleansing No -Anesthetic Used 4% Lidocaine Solution #4 LEFT MEDIAL GROIN CLUSTER -Current Size (cm) - Length 0.5 -Current Size (cm) - Width 3.3 -Current Size (cm) - Depth 0.2 -Total Square Cm 1.65 -Photo Taken No -Exudate Amt Small -Exudate Type Serosanguineous -Wound Margin Well Defined, Not Attached -Granulation Quality [place],Red -Necrosis Amt Medium (34-66%) -Necrotic Tissue Type Adherent Slough -Structure Exposed N/A -Texture (Inessa-wound Skin Appearance) Scarring -Moisture (Inessa-wound Skin Appearance Dry/Scaly ) -Color (Inessa-wound Skin Appearance) No Abnormality -Temperature (Inessa-wound Skin No Abnormality Appearance) (Pt Warm) -Tenderness on Palpation (Inessa-wound No Skin Appearance) -Ulcer Cleansing Wound Cleanser -Foul Odor after Cleansing No #1- LEFT GROIN- POST OP -Current Size (cm) - Length 1 -Current Size (cm) - Width 8.1 -Current Size (cm) - Depth 0.2 -Total Square Cm 8.1 -Photo Taken No -Exudate Amt Small -Exudate Type Serosanguineous -Wound Margin Thickened -Granulation Amt Large (67-100%) -Granulation Quality Red -Necrosis Amt None Present (0 %) -Structure Exposed N/A -Texture (Inessa-wound Skin Appearance) Scarring -Moisture (Inessa-wound Skin Appearance No Abnormality ) -Color (Inessa-wound Skin Appearance) No Abnormality -Temperature (Inessa-wound Skin No Abnormality Appearance) (Pt Warm) -Tenderness on Palpation (Inessa-wound No Skin Appearance) -Ulcer Cleansing Wound Cleanser -Foul Odor after Cleansing No -Anesthetic Used 4% Lidocaine Solution WC - Nurse 2 - General Ulcer CM Notes Start: 11/26/19 15:04 Freq: Status: Active Protocol: Activity Type Activity Date Activity User E-Sign Co-Sign Detail Recorded Client Recorded Date Recorded By Document 11/26/19 15:55 MW [id number] 11/26/19 15:58 MW 11/26/19 15:55 Wound Center Nurse 2 [Procedure/Treatment] #5 Left Lat Hip -Time 15:56 -Correct Patient Yes -Correct Side, Site, Position Yes -Correct Procedure Yes -Procedure Performed No -Post Debridement Size (cm) - Length 0 -Post Debridement Size (cm) - Width 0 -Post Debridement Size (cm) - Depth 0 -Total Square (cm) 0 -Wound/Ulcer Outcome Healed- Epithelialized #4 LEFT MEDIAL GROIN CLUSTER -Time 15:57 -Correct Patient Yes -Correct Side, Site, Position Yes -Correct Procedure Yes -Procedure Performed Yes -Type of Procedure Debridement -Clinical Debridement Subcutaneous -Post Debridement Size (cm) - Length 0.6 -Post Debridement Size (cm) - Width 3.0 -Post Debridement Size (cm) - Depth 0.1 -Total Square (cm) 1.80 -Wound/Ulcer Outcome Not Healed -Ulcer Cleansing Rinsed/ Irrigated with Saline -Foul Odor after Cleansing No -Bioengineered Tissue No -Bleeding Controlled with Pressure,Silver Nitrate -Offloading No -Treatment Response Procedure Tolerated Well #1- LEFT GROIN- POST OP -Time 15:57 -Correct Patient Yes -Correct Side, Site, Position Yes -Correct Procedure Yes -Procedure Performed Yes -Type of Procedure Debridement -Clinical Debridement Subcutaneous -Post Debridement Size (cm) - Length 1.6 -Post Debridement Size (cm) - Width 8.0 -Post Debridement Size (cm) - Depth 0.1 -Total Square (cm) 12.80 -Wound/Ulcer Outcome Not Healed -Ulcer Cleansing Rinsed/ Irrigated with Saline -Foul Odor after Cleansing No -Bioengineered Tissue No -Bleeding Controlled with Pressure,Silver Nitrate -Offloading No -Treatment Response Procedure Tolerated Well [See Physician Procedure note for Specifics] Pain Scale: 0-10 Numeric [Pain] -Is Patient Pain Free? Yes Neurological: Neuro grossly intact Psych/Mental Status: Normal Affect, Appropriate, Alert and oriented to time, place, person, mood and affect Debridement Note Post-Debridement Measurements/Treatment WC - Nurse 2 - General Ulcer CM Notes Start: 11/26/19 15:04 Freq: Status: Active Protocol: Activity Type Activity Date Activity User E-Sign Co-Sign Detail Recorded Client Recorded Date Recorded By Document 11/26/19 15:55 MW [id number] 11/26/19 15:58 MW 11/26/19 15:55 Wound Center Nurse 2 #5 Left Lat Hip -Time 15:56 -Correct Patient Yes -Correct Side, Site, Position Yes -Correct Procedure Yes -Procedure Performed No -Post Debridement Size (cm) - Length 0 -Post Debridement Size (cm) - Width 0 -Post Debridement Size (cm) - Depth 0 -Total Square (cm) 0 -Wound/Ulcer Outcome Healed- Epithelialized #4 LEFT MEDIAL GROIN CLUSTER -Time 15:57 -Correct Patient Yes -Correct Side, Site, Position Yes -Correct Procedure Yes -Procedure Performed Yes -Type of Procedure Debridement -Clinical Debridement Subcutaneous -Post Debridement Size (cm) - Length 0.6 -Post Debridement Size (cm) - Width 3.0 -Post Debridement Size (cm) - Depth 0.1 -Total Square (cm) 1.80 -Wound/Ulcer Outcome Not Healed -Ulcer Cleansing Rinsed/ Irrigated with Saline -Foul Odor after Cleansing No -Bioengineered Tissue No -Bleeding Controlled with Pressure,Silver Nitrate -Offloading No -Treatment Response Procedure Tolerated Well #1- LEFT GROIN- POST OP -Time 15:57 -Correct Patient Yes -Correct Side, Site, Position Yes -Correct Procedure Yes -Procedure Performed Yes -Type of Procedure Debridement -Clinical Debridement Subcutaneous -Post Debridement Size (cm) - Length 1.6 -Post Debridement Size (cm) - Width 8.0 -Post Debridement Size (cm) - Depth 0.1 -Total Square (cm) 12.80 -Wound/Ulcer Outcome Not Healed -Ulcer Cleansing Rinsed/ Irrigated with Saline -Foul Odor after Cleansing No -Bioengineered Tissue No -Bleeding Controlled with Pressure,Silver Nitrate -Offloading No -Treatment Response Procedure Tolerated Well Pain Scale: 0-10 Numeric Is Patient Pain Free? Yes Wound debrided: Left groin ulcers Type of Debridement: Excisional debridement Anesthesia Used: 5% Lidocaine Gel Depth: in the subcutaneous layer Percentage of wound debrided: 100 Instrument Used: 5mm curette Tissue Removed: Slough and devitalized tissue Severity: Fat Layer Exposed Amount of bleeding with debridement: Mild Bleeding Controlled with: Pressure Patient tolerated procedure well Assessment/Plan Active Problems Non-healing surgical wound of left groin (Chronic) x 3 Assessment: Nonhealing postsurgical wound left groin status post surgical excision of necrotizing fasciitis. Morbid obesity. Type 2 diabetes mellitus Plan: Patient Continues having issues healing his left groin and medial groin ulcers due to excess moisture and maceration.Debridement done as documented above, procedure was well tolerated. Continue Meglisorb daily And as needed Continue antifungal powder to non open area to help keep it dry. Continue increased protein intake. Weight loss recommended. His questions were answered and he was advised to call with any further questions or concerns. Follow up in 2 week Or sooner if needed. This note was generated with [employer] dictation software. It may contain incorrect words, spelling, and punctuation that were not noted in checking the note before signing. [id number]: [id number] Jessica subq tissue 20 sq cm/<
--- NOTE | 2019-12-11 16:46 | PCM.WC.PN ---
(1) Non-healing surgical wound of left groin Status: Chronic Current Visit: Yes Qualifiers: Code(s): T81.89XA - Other complications of procedures, not elsewhere classified, initial encounter Comment: x 3 (2) Lymphedema of both lower extremities Status: Acute Current Visit: No Code(s): I89.0 - Lymphedema, not elsewhere classified (3) Diabetic neuropathy Status: Chronic Current Visit: No Code(s): E11.40 - Type 2 diabetes mellitus with diabetic neuropathy, unspecified (4) History of necrotising fasciitis Status: Chronic Current Visit: No Code(s): Z87.39 - Personal history of other diseases of the musculoskeletal system and connective tissue (5) Morbid obesity Status: Chronic Current Visit: No Code(s): E66.01 - Morbid (severe) obesity due to excess calories (6) Skin ulcer of abdominal wall with fat layer exposed Status: Chronic Current Visit: No Code(s): L98.492 - Non-pressure chronic ulcer of skin of other sites with fat layer exposed Comment: left abdominal fold and left medial groin cluster ulcers (7) Type 2 diabetes mellitus Status: Chronic Current Visit: No Qualifiers: Code(s): E11.9 - Type 2 diabetes mellitus without complications Type of Wound Date of Service: 12/10/19 Chief Complaint: Nonhealing wound status post surgical excision of necrotizing fasciitis left groin History of Wound: 46-year-old white male who presents to the wound healing center today with complaint of left groin ulceration status post surgical excision of necrotizing fasciitis. He is a past medical history which is significant for that of type 2 diabetes mellitus, gout, diabetic neuropathy, schizophrenia, bilateral lymphedema, and schizophrenia. The patient states that what initially started as a pimple in his left groin progressed to necrotizing fasciitis and he had to have this surgically debrided in April 2017. He was admitted to [facility] for 2 weeks and then [facility] for 6 weeks afterwards. He states that the groin ulcer which extends to his left lower abdomen has been slowly improving and he has been doing daily Aquacel AG dressings with an ABD for the drainage. He does state that he has had 3 wound vacs in the past which were unable to be utilized due to the location of his wound. He denies any foul-smelling discharge or systemic signs of infection at this time. He is seen today as a courtesy visit for Gianni Neil CNP. He is tolerating dressings and denies any increase in drainage. He has been also using sweat beater to his groin area to prevent moisture. The patient otherwise denies any fever, chills, nausea, vomiting, shortness of breath, chest pain or pressure, palpitations, orthopnea, syncope or presyncopal episodes. Progress of Wound: 11/12/2019?more maceration noted today and heat, patient now has 3 groin ulcers with an additional lateral and medial ulceration as well. Given the excess moisture will order a super Absorbent dressing to be utilized over top of his current wound care plan. 11/27/2019?lateral ulcer has healed, left groin ulcer and medial ulcer continues with maceration, otherwise no further concerns. 12/10/2019?no new concerns, doing well with dressings, still having issues with moisture - Physical Exam Vital Signs Temp Pulse Resp BP 97.9 F 88 22 H 150/85 H 11/26/19 15:05 11/26/19 15:05 11/26/19 15:05 11/26/19 15:05 General: Alert, Oriented x3, Cooperative, No apparent distress HEENT: Atraumatic Oral: Moist Mucosa Neck: Supple Lungs: Clear to auscultation Cardiovascular: Regular rate Abdomen: Soft, Non Tender, Obese Skin: Ulcer/ Wound - Nursing documentation, slough and devitalized tissue present, maceration at wound edges Wound Measurements and Assessment WC - Nurse 1 - General Ulcer Measurement Start: 11/26/19 15:04 Freq: Status: Active Protocol: Activity Type Activity Date Activity User E-Sign Co-Sign Detail Recorded Client Recorded Date Recorded By Document 12/10/19 13:08 RB [id number] 12/10/19 13:18 RB 12/10/19 13:08 Wound Center Nurse 1 [Ulcer Assessment] #4 LEFT MEDIAL GROIN CLUSTER -Combined with other wound No -Current Size (cm) - Length 0.4 -Current Size (cm) - Width 3.5 -Current Size (cm) - Depth 0.2 -Total Square Cm 1.40 -Tunneling No -Undermining/Tunneling No -Circular Undermining No -Exudate Amt Medium -Exudate Type Serosanguineous -Wound Margin Thickened & Rolled Under -Granulation Amt Medium (34-66%) -Granulation Quality [place] -Slough/Fibrin Yes -Necrosis Amt Small (1-33%) -Necrotic Tissue Type Adherent Slough -Structure Exposed N/A -Texture (Inessa-wound Skin Appearance) Assessed, Scarring -Moisture (Inessa-wound Skin Appearance Assessed ) -Color (Inessa-wound Skin Appearance) Assessed -Temperature (Inessa-wound Skin No Abnormality Appearance) (Pt Warm) -Tenderness on Palpation (Inessa-wound No Skin Appearance) -Ulcer Cleansing Wound Cleanser -Foul Odor after Cleansing No -Anesthetic Used 4% Lidocaine Solution #1- LEFT GROIN- POST OP -Combined with other wound No -Current Size (cm) - Length 1.3 -Current Size (cm) - Width 9.4 -Current Size (cm) - Depth 0.2 -Total Square Cm 12.22 -Tunneling No -Undermining/Tunneling No -Circular Undermining No -Exudate Amt Medium -Exudate Type Serosanguineous -Wound Margin Thickened & Rolled Under -Granulation Amt Medium (34-66%) -Granulation Quality [place] -Slough/Fibrin Yes -Necrosis Amt Small (1-33%) -Necrotic Tissue Type Adherent Slough -Structure Exposed N/A -Texture (Inessa-wound Skin Appearance) Assessed, Scarring -Moisture (Inessa-wound Skin Appearance Assessed ) -Color (Inessa-wound Skin Appearance) Assessed -Temperature (Inessa-wound Skin No Abnormality Appearance) (Pt Warm) -Tenderness on Palpation (Inessa-wound No Skin Appearance) -Ulcer Cleansing Wound Cleanser -Foul Odor after Cleansing No -Anesthetic Used 4% Lidocaine Solution WC - Nurse 2 - General Ulcer CM Notes Start: 12/08/19 20:09 Freq: Status: Active Protocol: Activity Type Activity Date Activity User E-Sign Co-Sign Detail Recorded Client Recorded Date Recorded By Document 12/10/19 13:33 MW [id number] 12/10/19 13:35 MW 12/10/19 13:33 Wound Center Nurse 2 [Procedure/Treatment] #4 LEFT MEDIAL GROIN CLUSTER -Time 13:34 -Correct Patient Yes -Correct Side, Site, Position Yes -Correct Procedure Yes -Procedure Performed Yes -Type of Procedure Debridement -Clinical Debridement Subcutaneous -Tissue Removed Subcutaneous -Post Debridement (cm) - Length 0.4 -Post Debridement (cm) - Width 1.6 -Post Debridement (cm) - Depth 0.1 -Total Square (Post) (cm) 0.64 -Area of Debridement (cm) - Length 0.4 -Area of Debridement (cm) - Width 1.6 -Total Square (Area) (cm) 0.64 -Tunneling No -Undermining/Tunneling No -Circular Undermining No -Wound/Ulcer Outcome Not Healed -Ulcer Cleansing Rinsed/ Irrigated with Saline -Foul Odor after Cleansing No -Bioengineered Tissue No -Bleeding Controlled with Pressure,Silver Nitrate -Offloading No -Treatment Response Procedure Tolerated Well -Debridement - Subq, 1st 20sq cm Yes #1- LEFT GROIN- POST OP -Time 13:34 -Correct Patient Yes -Correct Side, Site, Position Yes -Correct Procedure Yes -Procedure Performed Yes -Type of Procedure Debridement -Clinical Debridement Subcutaneous -Tissue Removed Subcutaneous -Post Debridement (cm) - Length 1.6 -Post Debridement (cm) - Width 8.0 -Post Debridement (cm) - Depth 0.1 -Total Square (Post) (cm) 12.80 -Area of Debridement (cm) - Length 1.6 -Area of Debridement (cm) - Width 8.0 -Total Square (Area) (cm) 12.80 -Tunneling No -Undermining/Tunneling No -Circular Undermining No -Wound/Ulcer Outcome Not Healed -Ulcer Cleansing Rinsed/ Irrigated with Saline -Foul Odor after Cleansing No -Bioengineered Tissue No -Bleeding Controlled with Pressure -Offloading No -Debridement - Subq, 1st 20sq cm No [See Physician Procedure note for Specifics] Pain Scale: 0-10 Numeric [Pain] -Is Patient Pain Free? Yes WC - Nurse 3 - General Ulcer D/C NN Start: 12/08/19 20:09 Freq: Status: Active Protocol: Activity Type Activity Date Activity User E-Sign Co-Sign Detail Recorded Client Recorded Date Recorded By Document 12/10/19 13:39 MW [id number] 12/10/19 13:41 MW 12/10/19 13:39 Wound Care Nurse 3 [Wound Dressing] #4 LEFT MEDIAL GROIN CLUSTER -Ulcer Cleansing Rinsed/ Irrigated with Saline -Foul Odor after Cleansing No -Negative Pressure Wound Therapy N/A -Other Dressing melgisorb plus -Primary Dressing Covered/Secured Dry Gauze, with Secured with Tape #1- LEFT GROIN- POST OP -Ulcer Cleansing Rinsed/ Irrigated with Saline -Foul Odor after Cleansing No -Negative Pressure Wound Therapy N/A -Other Dressing melgisorb plus -Primary Dressing Covered/Secured Dry Gauze, with Secured with Tape [Post Procedure Tolerated] -Treatment Response Procedure Tolerated Well Pain Scale: 0-10 Numeric [Pain] -Is Patient Pain Free? Yes Teaching: Wound Center [Wound Center Education] (Items with an * have Printed Materials Available- Please identify what is given to patient under the Teaching materials given to patient and caregiver Section. Dressing Your Wound -Person Taught Patient -Teaching Method Discussion, Demonstration -Response to teaching Verbalize understanding WC - Visit Discharge [Visit Discharge Information] -Discharge Condition Stable -Ambulatory Status Ambulatory -Transportation Private Auto -Accompanied by brother -Medication Reconcilliation completed No & provided to patient/care provider -Clinical Summary of Care Provided Yes Neurological: Neuro grossly intact Psych/Mental Status: Normal Affect, Appropriate, Alert and oriented to time, place, person, mood and affect Debridement Note Post-Debridement Measurements/Treatment WC - Nurse 2 - General Ulcer CM Notes Start: 12/08/19 20:09 Freq: Status: Active Protocol: Activity Type Activity Date Activity User E-Sign Co-Sign Detail Recorded Client Recorded Date Recorded By Document 12/10/19 13:33 MW [id number] 12/10/19 13:35 MW 12/10/19 13:33 Wound Center Nurse 2 #4 LEFT MEDIAL GROIN CLUSTER -Time 13:34 -Correct Patient Yes -Correct Side, Site, Position Yes -Correct Procedure Yes -Procedure Performed Yes -Type of Procedure Debridement -Clinical Debridement Subcutaneous -Tissue Removed Subcutaneous -Post Debridement (cm) - Length 0.4 -Post Debridement (cm) - Width 1.6 -Post Debridement (cm) - Depth 0.1 -Total Square (Post) (cm) 0.64 -Area of Debridement (cm) - Length 0.4 -Area of Debridement (cm) - Width 1.6 -Total Square (Area) (cm) 0.64 -Tunneling No -Undermining/Tunneling No -Circular Undermining No -Wound/Ulcer Outcome Not Healed -Ulcer Cleansing Rinsed/ Irrigated with Saline -Foul Odor after Cleansing No -Bioengineered Tissue No -Bleeding Controlled with Pressure,Silver Nitrate -Offloading No -Treatment Response Procedure Tolerated Well -Debridement - Subq, 1st 20sq cm Yes #1- LEFT GROIN- POST OP -Time 13:34 -Correct Patient Yes -Correct Side, Site, Position Yes -Correct Procedure Yes -Procedure Performed Yes -Type of Procedure Debridement -Clinical Debridement Subcutaneous -Tissue Removed Subcutaneous -Post Debridement (cm) - Length 1.6 -Post Debridement (cm) - Width 8.0 -Post Debridement (cm) - Depth 0.1 -Total Square (Post) (cm) 12.80 -Area of Debridement (cm) - Length 1.6 -Area of Debridement (cm) - Width 8.0 -Total Square (Area) (cm) 12.80 -Tunneling No -Undermining/Tunneling No -Circular Undermining No -Wound/Ulcer Outcome Not Healed -Ulcer Cleansing Rinsed/ Irrigated with Saline -Foul Odor after Cleansing No -Bioengineered Tissue No -Bleeding Controlled with Pressure -Offloading No -Debridement - Subq, 1st 20sq cm No Pain Scale: 0-10 Numeric Is Patient Pain Free? Yes WC - Nurse 3 - General Ulcer D/C NN Start: 12/08/19 20:09 Freq: Status: Active Protocol: Activity Type Activity Date Activity User E-Sign Co-Sign Detail Recorded Client Recorded Date Recorded By Document 12/10/19 13:39 MW [id number] 12/10/19 13:41 MW 12/10/19 13:39 Wound Care Nurse 3 #4 LEFT MEDIAL GROIN CLUSTER -Ulcer Cleansing Rinsed/ Irrigated with Saline -Foul Odor after Cleansing No -Negative Pressure Wound Therapy N/A -Other Dressing melgisorb plus -Primary Dressing Covered/Secured with Dry Gauze, Secured with Tape #1- LEFT GROIN- POST OP -Ulcer Cleansing Rinsed/ Irrigated with Saline -Foul Odor after Cleansing No -Negative Pressure Wound Therapy N/A -Other Dressing melgisorb plus -Primary Dressing Covered/Secured with Dry Gauze, Secured with Tape Treatment Response Procedure Tolerated Well Pain Scale: 0-10 Numeric Is Patient Pain Free? Yes Teaching: Wound Center Dressing Your Wound -Person Taught Patient -Teaching Method Discussion, Demonstration -Response to teaching Verbalize understanding WC - Visit Discharge Discharge Condition Stable Ambulatory Status Ambulatory Transportation Private Auto Accompanied by brother Medication Reconcilliation completed & No provided to patient/care provider Clinical Summary of Care Provided Yes Wound debrided: Left groin ulcers Laterality: Left Type of Debridement: Excisional debridement Anesthesia Used: 5% Lidocaine Gel Depth: in the subcutaneous layer Percentage of wound debrided: 100 Instrument Used: 5mm curette Tissue Removed: Slough and devitalized tissue Severity: Fat Layer Exposed Amount of bleeding with debridement: Mild Bleeding Controlled with: Pressure Patient tolerated procedure well Assessment/Plan Active Problems Non-healing surgical wound of left groin (Chronic) x 3 Assessment: Nonhealing postsurgical wound left groin status post surgical excision of necrotizing fasciitis. Morbid obesity. Type 2 diabetes mellitus Plan: Patient Continues having issues healing his left groin and medial groin ulcers due to excess moisture and maceration.Debridement done as documented above, procedure was well tolerated. Continue Meglisorb daily Cover with karramax and/or ABD And as needed Continue antifungal powder to non open area to help keep it dry. Continue increased protein intake. Weight loss recommended. His questions were answered and he was advised to call with any further questions or concerns. Follow up in 2 week Or sooner if needed. This note was generated with [employer] dictation software. It may contain incorrect words, spelling, and punctuation that were not noted in checking the note before signing. [id number]: [id number] Jessica subq tissue 20 sq cm/<
== END 2019-12-21 23:59 ==
LOC: WC 12:45
PROVIDERS: Family Provider Family Medicine; PCP Family Medicine; Visit Provider Nurse Practitioner Family
DX: T81.89XA Other complications of procedures, not elsewhere classified, initial encounter (principal); L98.492 Non-pressure chronic ulcer of skin of other sites with fat layer exposed; I89.0 Lymphedema, not elsewhere classified; E11.40 Type 2 diabetes mellitus with diabetic neuropathy, unspecified; M10.9 Gout, unspecified; E66.01 Morbid (severe) obesity due to excess calories; Z79.4 Long term (current) use of insulin; Z79.899 Other long term (current) drug therapy
CPT/HCPCS: 11042

== ENCOUNTER 2020-01-18 13:00 | Outpatient (RCR) | payer MEDICARE, MEDICAID, SELFPAY ==
[2019-12-22 00:26] VITALS: BP 150/85; PULSE 88; RESP 22; TEMP 36.6
[2019-12-24 12:53] VITALS: BP 180/78; PULSE 101; RESP 18; TEMP 36.1
--- NOTE | 2019-12-24 16:33 | PN.PCM_ITS ---
(1) Non-healing surgical wound of left groin Status: Chronic Current Visit: Yes Qualifiers: Code(s): T81.89XA - Other complications of procedures, not elsewhere classified, initial encounter Comment: x 3 (2) Non-healing surgical wound Status: Chronic Current Visit: Yes Qualifiers: Code(s): T81.89XA - Other complications of procedures, not elsewhere classified, initial encounter (3) Lymphedema of both lower extremities Status: Acute Current Visit: No Code(s): I89.0 - Lymphedema, not elsewhere classified (4) History of necrotising fasciitis Status: Chronic Current Visit: No Code(s): Z87.39 - Personal history of other diseases of the musculoskeletal system and connective tissue (5) Morbid obesity Status: Chronic Current Visit: No Code(s): E66.01 - Morbid (severe) obesity due to excess calories (6) Skin ulcer of abdominal wall with fat layer exposed Status: Chronic Current Visit: No Code(s): L98.492 - Non-pressure chronic ulcer of skin of other sites with fat layer exposed Comment: left abdominal fold and left medial groin cluster ulcers (7) Type 2 diabetes mellitus Status: Chronic Current Visit: No Qualifiers: Code(s): E11.9 - Type 2 diabetes mellitus without complications Type of Wound Date of Service: 12/24/19 Chief Complaint: Nonhealing wound status post surgical excision of necrotizing fasciitis left groin History of Wound: 46-year-old white male who presents to the wound healing center today with complaint of left groin ulceration status post surgical excision of necrotizing fasciitis. He is a past medical history which is significant for that of type 2 diabetes mellitus, gout, diabetic neuropathy, schizophrenia, bilateral lymphedema, and schizophrenia. The patient states that what initially started as a pimple in his left groin progressed to necrotizing fasciitis and he had to have this surgically debrided in April 2017. He was admitted to [facility] for 2 weeks and then [facility] for 6 weeks afterwards. He states that the groin ulcer which extends to his left lower abdomen has been slowly improving and he has been doing daily Aquacel AG dressings with an ABD for the drainage. He does state that he has had 3 wound vacs in the past which were unable to be utilized due to the location of his wound. He denies any foul-smelling discharge or systemic signs of infection at this time. He is seen today as a courtesy visit for Gianni Neil CNP. He is tolerating dressings and denies any increase in drainage. He has been also using sweat beater to his groin area to prevent moisture. The patient otherwise denie s any fever, chills, nausea, vomiting, shortness of breath, chest pain or pressure, palpitations, orthopnea, syncope or presyncopal episodes. Progress of Wound: 11/12/2019?more maceration noted today and heat, patient now has 3 groin ulcers with an additional lateral and medial ulceration as well. Given the excess moisture will order a super Absorbent dressing to be utilized over top of his current wound care plan. 11/27/2019?lateral ulcer has healed, left groin ulcer and medial ulcer continues with maceration, otherwise no further concerns. 12/10/2019?no new concerns, doing well with dressings, still having issues with moisture. 12/24/2019?no new concerns, doing well with dressings, still having issues with moisture and very slow wound healing. Will refer to plastic surgery for another consultation given the fact that he is failed multiple wound treatments and also his wounds have had delayed healing over the past year - Physical Exam Vital Signs Temp Pulse Resp BP 96.9 F L 101 H 18 180/78 H 12/24/19 12:53 12/24/19 12:53 12/24/19 12:53 12/24/19 12:53 General: Alert, Oriented x3, Cooperative, No apparent distress HEENT: Atraumatic Oral: Moist Mucosa Lungs: Clear to auscultation, Normal air movement Cardiovascular: Regular rate, Regular Rhythm, Normal S1, Normal S2 Abdomen: Soft, Non Tender Extremities: No clubbing, No cyanosis, Edema - generalized bilateral lower extremity edema Skin: Ulcer/ Wound - See nursing documentation, groin ulcers are macerated with slough present, no signs of obvious infection at this time. Wound Measurements and Assessment WC - Nurse 1 - General Ulcer Measurement Start: 12/24/19 12:52 Freq: Status: Active Protocol: Activity Type Activity Date Activity User E-Sign Co-Sign Detail Recorded Client Recorded Date Recorded By Document 12/24/19 12:53 [facility] [id number] 12/24/19 12:57 [facility] 12/24/19 12:53 Wound Center Nurse 1 [Ulcer Assessment] #4 LEFT MEDIAL GROIN CLUSTER -Combined with other wound No -Current Size (cm) - Length 0.5 -Current Size (cm) - Width 7.8 -Current Size (cm) - Depth 0.2 -Total Square Cm 3.90 -Photo Taken No -Epithelialization None Present -Tunneling No -Undermining/Tunneling No -Circular Undermining No -Exudate Amt Small -Exudate Type Serosanguineous -Wound Margin Thickened & Rolled Under -Granulation Amt Large (67-100%) -Granulation Quality Red -Slough/Fibrin Yes -Necrosis Amt Small (1-33%) -Necrotic Tissue Type Adherent Slough -Texture (Inessa-wound Skin Appearance) Assessed, Scarring -Moisture (Inessa-wound Skin Appearance Assessed, ) Maceration -Color (Inessa-wound Skin Appearance) Assessed -Temperature (Inessa-wound Skin No Abnormality Appearance) (Pt Warm) -Tenderness on Palpation (Inessa-wound No Skin Appearance) -Ulcer Cleansing soapy water -Foul Odor after Cleansing No -Anesthetic Used 4% Lidocaine Solution #1- LEFT GROIN- POST OP -Combined with other wound No -Current Size (cm) - Length 0.9 -Current Size (cm) - Width 8.3 -Current Size (cm) - Depth 0.2 -Total Square Cm 7.47 -Photo Taken No -Epithelialization None Present -Tunneling No -Undermining/Tunneling No -Circular Undermining No -Exudate Amt Small -Exudate Type Serosanguineous -Wound Margin Thickened & Rolled Under -Granulation Amt Large (67-100%) -Granulation Quality Red -Slough/Fibrin Yes -Necrosis Amt Small (1-33%) -Necrotic Tissue Type Adherent Slough -Texture (Inessa-wound Skin Appearance) Assessed, Scarring -Moisture (Inessa-wound Skin Appearance Assessed, ) Maceration -Color (Inessa-wound Skin Appearance) Assessed,Palor -Temperature (Inessa-wound Skin No Abnormality Appearance) (Pt Warm) -Tenderness on Palpation (Inessa-wound No Skin Appearance) -Ulcer Cleansing soapy water -Foul Odor after Cleansing No -Anesthetic Used 4% Lidocaine Solution WC - Nurse 2 - General Ulcer CM Notes Start: 12/24/19 12:52 Freq: Status: Active Protocol: Activity Type Activity Date Activity User E-Sign Co-Sign Detail Recorded Client Recorded Date Recorded By Document 12/24/19 13:29 MW [id number] 12/24/19 13:31 MW 12/24/19 13:29 Wound Center Nurse 2 [Procedure/Treatment] #4 LEFT MEDIAL GROIN CLUSTER -Time 13:30 -Correct Patient Yes -Correct Side, Site, Position Yes -Correct Procedure Yes -Procedure Performed Yes -Type of Procedure Debridement -Clinical Debridement Subcutaneous -Tissue Removed Subcutaneous -Post Debridement (cm) - Length 1.0 -Post Debridement (cm) - Width 7.5 -Post Debridement (cm) - Depth 0.1 -Total Square (Post) (cm) 7.50 -Area of Debridement (cm) - Length 1.0 -Area of Debridement (cm) - Width 7.5 -Total Square (Area) (cm) 7.50 -Tunneling No -Undermining/Tunneling No -Circular Undermining No -Wound/Ulcer Outcome Not Healed -Ulcer Cleansing Rinsed/ Irrigated with Saline -Foul Odor after Cleansing No -Bioengineered Tissue No -Bleeding Controlled with Pressure -Offloading No -Debridement - Subq, 1st 20sq cm Yes #1- LEFT GROIN- POST OP -Time 13:30 -Correct Patient Yes -Correct Side, Site, Position Yes -Correct Procedure Yes -Procedure Performed Yes -Type of Procedure Debridement -Clinical Debridement Subcutaneous -Tissue Removed Subcutaneous -Post Debridement (cm) - Length 1.5 -Post Debridement (cm) - Width 7.5 -Post Debridement (cm) - Depth 0.1 -Total Square (Post) (cm) 11.25 -Area of Debridement (cm) - Length 1.5 -Area of Debridement (cm) - Width 7.5 -Total Square (Area) (cm) 11.25 -Tunneling No -Undermining/Tunneling No -Circular Undermining No -Wound/Ulcer Outcome Not Healed -Ulcer Cleansing Rinsed/ Irrigated with Saline -Foul Odor after Cleansing No -Bioengineered Tissue No -Bleeding Controlled with Pressure -Offloading No -Treatment Response Procedure Tolerated Well -Debridement - Subq, 1st 20sq cm No [See Physician Procedure note for Specifics] Pain Scale: 0-10 Numeric [Pain] -Is Patient Pain Free? Yes WC - Nurse 3 - General Ulcer D/C NN Start: 12/24/19 12:52 Freq: Status: Active Protocol: Activity Type Activity Date Activity User E-Sign Co-Sign Detail Recorded Client Recorded Date Recorded By Document 12/24/19 13:42 [facility] [id number] 12/24/19 13:44 [facility] 12/24/19 13:42 Wound Care Nurse 3 [Wound Dressing] #4 LEFT MEDIAL GROIN CLUSTER -Ulcer Cleansing Rinsed/ Irrigated with Saline -Foul Odor after Cleansing No -Primary Dressing Applied Other -Other Dressing melgisorb -Primary Dressing Covered/Secured Secured with with Tape,Other -Other Covering abd #1- LEFT GROIN- POST OP -Ulcer Cleansing Rinsed/ Irrigated with Saline -Foul Odor after Cleansing No -Primary Dressing Applied Other -Other Dressing melgisorb -Primary Dressing Covered/Secured Secured with with Tape,Other -Other Covering abd [Post Procedure Tolerated] -Treatment Response Procedure Tolerated Well Pain Scale: 0-10 Numeric [Pain] -Is Patient Pain Free? Yes WC - Visit Discharge [Visit Discharge Information] -Discharge Condition Stable -Ambulatory Status Ambulatory -Transportation Private Auto [Facility Notification] -Facility Type Home Health Musculoskeletal: No Tenderness to Palpation of Joints or Extremities Neurological: Cranial nerves II-XII grossly intact, Neuro grossly intact Psych/Mental Status: Normal Affect, Appropriate, Alert and oriented to time, place, person, mood and affect Debridement Note Post-Debridement Measurements/Treatment WC - Nurse 2 - General Ulcer CM Notes Start: 12/24/19 12:52 Freq: Status: Active Protocol: Activity Type Activity Date Activity User E-Sign Co-Sign Detail Recorded Client Recorded Date Recorded By Document 12/24/19 13:29 [id number] 12/24/19 13:31 MW 12/24/19 13:29 Wound Center Nurse 2 #4 LEFT MEDIAL GROIN CLUSTER -Time 13:30 -Correct Patient Yes -Correct Side, Site, Position Yes -Correct Procedure Yes -Procedure Performed Yes -Type of Procedure Debridement -Clinical Debridement Subcutaneous -Tissue Removed Subcutaneous -Post Debridement (cm) - Length 1.0 -Post Debridement (cm) - Width 7.5 -Post Debridement (cm) - Depth 0.1 -Total Square (Post) (cm) 7.50 -Area of Debridement (cm) - Length 1.0 -Area of Debridement (cm) - Width 7.5 -Total Square (Area) (cm) 7.50 -Tunneling No -Undermining/Tunneling No -Circular Undermining No -Wound/Ulcer Outcome Not Healed -Ulcer Cleansing Rinsed/ Irrigated with Saline -Foul Odor after Cleansing No -Bioengineered Tissue No -Bleeding Controlled with Pressure -Offloading No -Debridement - Subq, 1st 20sq cm Yes #1- LEFT GROIN- POST OP -Time 13:30 -Correct Patient Yes -Correct Side, Site, Position Yes -Correct Procedure Yes -Procedure Performed Yes -Type of Procedure Debridement -Clinical Debridement Subcutaneous -Tissue Removed Subcutaneous -Post Debridement (cm) - Length 1.5 -Post Debridement (cm) - Width 7.5 -Post Debridement (cm) - Depth 0.1 -Total Square (Post) (cm) 11.25 -Area of Debridement (cm) - Length 1.5 -Area of Debridement (cm) - Width 7.5 -Total Square (Area) (cm) 11.25 -Tunneling No -Undermining/Tunneling No -Circular Undermining No -Wound/Ulcer Outcome Not Healed -Ulcer Cleansing Rinsed/ Irrigated with Saline -Foul Odor after Cleansing No -Bioengineered Tissue No -Bleeding Controlled with Pressure -Offloading No -Treatment Response Procedure Tolerated Well -Debridement - Subq, 1st 20sq cm No Pain Scale: 0-10 Numeric Is Patient Pain Free? Yes - Nurse 3 - General Ulcer D/C NN Start: 12/24/19 12:52 Freq: Status: Active Protocol: Activity Type Activity Date Activity User E-Sign Co-Sign Detail Recorded Client Recorded Date Recorded By Document 12/24/19 13:42 [facility] [id number] 12/24/19 13:44 [facility] 12/24/19 13:42 Wound Care Nurse 3 #4 LEFT MEDIAL GROIN CLUSTER -Ulcer Cleansing Rinsed/ Irrigated with Saline -Foul Odor after Cleansing No -Primary Dressing Applied Other -Other Dressing melgisorb -Primary Dressing Covered/Secured with Secured with Tape,Other -Other Covering abd #1- LEFT GROIN- POST OP -Ulcer Cleansing Rinsed/ Irrigated with Saline -Foul Odor after Cleansing No -Primary Dressing Applied Other -Other Dressing melgisorb -Primary Dressing Covered/Secured with Secured with Tape,Other -Other Covering abd Treatment Response Procedure Tolerated Well Pain Scale: 0-10 Numeric Is Patient Pain Free? Yes - Visit Discharge Discharge Condition Stable Ambulatory Status Ambulatory Transportation Private [facility] Facility Type Home Health Wound debrided: Left groin ulcers Assessment/Plan Active Problems Non-healing surgical wound of left groin (Chronic) x 3 Non-healing surgical wound (Chronic) Assessment: Nonhealing postsurgical wound left groin status post surgical excision of necrotizing fasciitis. Morbid obesity. Type 2 diabetes mellitus Plan: Patient Continues having issues healing his left groin and medial groin ulcers due to excess moisture and maceration.Debridement done as documented above, procedure was well tolerated. Continue Meglisorb daily Cover with karramax and/or ABD And as needed Continue antifungal powder to non open area to help keep it dry. Continue increased protein intake. Weight loss recommended. His questions were answered and he was advised to call with any further questions or concerns. Follow up in 1 week Or sooner if needed. Referral to plastic surgery given his delayed wound healing. This note was generated with [employer] dictation software. It may contain incorrect words, spelling, and punctuation that were not noted in checking the note before signing. [id number]: [id number] Jessica subq tissue 20 sq cm/<
[2019-12-31 13:28] VITALS: BP 159/82; PULSE 82; RESP 18; TEMP 36.4
--- NOTE | 2019-12-31 16:07 | PN.PCM_ITS ---
(1) Non-healing surgical wound of left groin Status: Chronic Current Visit: Yes Qualifiers: Code(s): T81.89XA - Other complications of procedures, not elsewhere classified, initial encounter Comment: x 3 (2) Non-healing surgical wound Status: Chronic Current Visit: Yes Qualifiers: Code(s): T81.89XA - Other complications of procedures, not elsewhere classified, initial encounter (3) Lymphedema of both lower extremities Status: Acute Current Visit: No Code(s): I89.0 - Lymphedema, not elsewhere classified (4) History of necrotising fasciitis Status: Chronic Current Visit: No Code(s): Z87.39 - Personal history of other diseases of the musculoskeletal system and connective tissue (5) Morbid obesity Status: Chronic Current Visit: No Code(s): E66.01 - Morbid (severe) obesity due to excess calories (6) Skin ulcer of abdominal wall with fat layer exposed Status: Chronic Current Visit: No Code(s): L98.492 - Non-pressure chronic ulcer of skin of other sites with fat layer exposed Comment: left abdominal fold and left medial groin cluster ulcers (7) Type 2 diabetes mellitus Status: Chronic Current Visit: No Qualifiers: Code(s): E11.9 - Type 2 diabetes mellitus without complications Type of Wound Date of Service: 12/31/19 Chief Complaint: Nonhealing wound status post surgical excision of necrotizing fasciitis left groin History of Wound: 46-year-old white male who presents to the wound healing center today with complaint of left groin ulceration status post surgical excision of necrotizing fasciitis. He is a past medical history which is significant for that of type 2 diabetes mellitus, gout, diabetic neuropathy, schizophrenia, bilateral lymphedema, and schizophrenia. The patient states that what initially started as a pimple in his left groin progressed to necrotizing fasciitis and he had to have this surgically debrided in April 2017. [facility]. He states that the groin ulcer which extends to his left lower abdomen has been slowly improving and he has been doing daily Aquacel AG dressings with an ABD for the drainage. He does state that he has had 3 wound vacs in the past which were unable to be utilized due to the location of his wound. He denies any foul-smelling discharge or systemic signs of infection at this time. He is seen today as a courtesy visit for Gianni Neil CNP. He is tolerating dressings and denies any increase in drainage. He has been also using sweat beater to his groin area to prevent moisture. The patient otherwise denie s any fever, chills, nausea, vomiting, shortness of breath, chest pain or pressure, palpitations, orthopnea, syncope or presyncopal episodes. Progress of Wound: 11/12/2019?more maceration noted today and heat, patient now has 3 groin ulcers with an additional lateral and medial ulceration as well. Given the excess moisture will order a super Absorbent dressing to be utilized over top of his current wound care plan. 11/27/2019?lateral ulcer has healed, left groin ulcer and medial ulcer continues with maceration, otherwise no further concerns. 12/10/2019?no new concerns, doing well with dressings, still having issues with moisture. 12/24/2019?no new concerns, doing well with dressings, still having issues with moisture and very slow wound healing. Will refer to plastic surgery for another consultation given the fact that he is failed multiple wound treatments and also his wounds have had delayed healing over the past year. 12/31/19-no new concerns, patient has a pending consult with plastic surgery due to his multiple failed wound treatments. - Physical Exam Vital Signs Temp Pulse Resp BP 97.6 F L 82 18 159/82 H 12/31/19 13:28 12/31/19 13:28 12/31/19 13:28 12/31/19 13:28 General: Alert, Oriented x3, Cooperative, No apparent distress HEENT: Atraumatic Oral: Moist Mucosa Lungs: Clear to auscultation, Normal air movement Cardiovascular: Regular rate, Normal S1 Abdomen: Soft, Non Tender Extremities: No clubbing, No cyanosis, No edema Skin: Ulcer/ Wound - See nursing documentation, slough and devitalized tissue present, no signs of obvious infection at this time, slight maceration Wound Measurements and Assessment WC - Nurse 1 - General Ulcer Measurement Start: 12/24/19 12:52 Freq: Status: Active Protocol: Activity Type Activity Date Activity User E-Sign Co-Sign Detail Recorded Client Recorded Date Recorded By Document 12/31/19 13:28 RB [id number] 12/31/19 13:37 RB 12/31/19 13:28 Wound Center Nurse 1 [Ulcer Assessment] #6 LEFT MEDIAL GROIN CLUSTER -Combined with other wound No -Current Size (cm) - Length 0.5 -Current Size (cm) - Width 2.8 -Current Size (cm) - Depth 0.2 -Total Square Cm 1.40 -Tunneling No -Undermining/Tunneling No -Circular Undermining No -Exudate Amt Medium -Exudate Type Serosanguineous -Wound Margin Thickened & Rolled Under -Granulation Amt Medium (34-66%) -Granulation Quality [place] -Slough/Fibrin Yes -Necrosis Amt Small (1-33%) -Necrotic Tissue Type Adherent Slough -Structure Exposed N/A -Texture (Inessa-wound Skin Appearance) Assessed -Moisture (Inessa-wound Skin Appearance Maceration ) -Color (Inessa-wound Skin Appearance) Assessed -Temperature (Inessa-wound Skin No Abnormality Appearance) (Pt Warm) -Tenderness on Palpation (Inessa-wound No Skin Appearance) -Ulcer Cleansing Wound Cleanser -Foul Odor after Cleansing No -Anesthetic Used 4% Lidocaine Solution #1- LEFT GROIN- POST OP -Combined with other wound No -Current Size (cm) - Length 1.3 -Current Size (cm) - Width 8.3 -Current Size (cm) - Depth 0.2 -Total Square Cm 10.79 -Tunneling No -Undermining/Tunneling No -Circular Undermining No -Exudate Amt Medium -Exudate Type Serosanguineous -Wound Margin Thickened & Rolled Under -Granulation Amt Medium (34-66%) -Granulation Quality [place] -Slough/Fibrin Yes -Necrosis Amt Small (1-33%) -Necrotic Tissue Type Adherent Slough -Structure Exposed Fat Layer Exposed -Texture (Inessa-wound Skin Appearance) Assessed -Moisture (Inessa-wound Skin Appearance Maceration ) -Color (Inessa-wound Skin Appearance) Assessed -Temperature (Inessa-wound Skin No Abnormality Appearance) (Pt Warm) -Tenderness on Palpation (Inessa-wound No Skin Appearance) -Ulcer Cleansing Wound Cleanser -Foul Odor after Cleansing No -Anesthetic Used 4% Lidocaine Solution WC - Nurse 2 - General Ulcer CM Notes Start: 12/24/19 12:52 Freq: Status: Active Protocol: Activity Type Activity Date Activity User E-Sign Co-Sign Detail Recorded Client Recorded Date Recorded By Document 12/31/19 13:59 MW [id number] 12/31/19 14:01 MW 12/31/19 13:59 Wound Center Nurse 2 [Procedure/Treatment] #6 LEFT MEDIAL GROIN CLUSTER -Time 13:59 -Correct Patient Yes -Correct Side, Site, Position Yes -Correct Procedure Yes -Procedure Performed Yes -Type of Procedure Debridement -Clinical Debridement Subcutaneous -Tissue Removed Subcutaneous -Post Debridement (cm) - Length 1.0 -Post Debridement (cm) - Width 2.5 -Post Debridement (cm) - Depth 0.1 -Total Square (Post) (cm) 2.50 -Area of Debridement (cm) - Length 1.0 -Area of Debridement (cm) - Width 2.5 -Total Square (Area) (cm) 2.50 -Tunneling No -Undermining/Tunneling No -Circular Undermining No -Wound/Ulcer Outcome Not Healed -Ulcer Cleansing Rinsed/ Irrigated with Saline -Foul Odor after Cleansing No -Bioengineered Tissue No -Bleeding Controlled with Pressure -Offloading No -Debridement - Subq, 1st 20sq cm Yes #1- LEFT GROIN- POST OP -Time 14:00 -Correct Patient Yes -Correct Side, Site, Position Yes -Correct Procedure Yes -Procedure Performed Yes -Type of Procedure Debridement -Clinical Debridement Subcutaneous -Tissue Removed Subcutaneous -Post Debridement (cm) - Length 1.5 -Post Debridement (cm) - Width 8.5 -Post Debridement (cm) - Depth 0.1 -Total Square (Post) (cm) 12.75 -Area of Debridement (cm) - Length 1.5 -Area of Debridement (cm) - Width 8.5 -Total Square (Area) (cm) 12.75 -Tunneling No -Undermining/Tunneling No -Circular Undermining No -Wound/Ulcer Outcome Not Healed -Ulcer Cleansing Rinsed/ Irrigated with Saline -Foul Odor after Cleansing No -Bioengineered Tissue No -Bleeding Controlled with Pressure -Offloading No -Debridement - Subq, 1st 20sq cm No [See Physician Procedure note for Specifics] Pain Scale: 0-10 Numeric [Pain] -Is Patient Pain Free? Yes WC - Nurse 3 - General Ulcer D/C NN Start: 12/24/19 12:52 Freq: Status: Active Protocol: Activity Type Activity Date Activity User E-Sign Co-Sign Detail Recorded Client Recorded Date Recorded By Document 12/31/19 14:10 [facility] [id number] 12/31/19 14:11 [facility] 12/31/19 14:10 Wound Care Nurse 3 [Wound Dressing] #6 LEFT MEDIAL GROIN CLUSTER -Ulcer Cleansing Rinsed/ Irrigated with Saline -Foul Odor after Cleansing No -Primary Dressing Applied Aquacel Extra -Primary Dressing Covered/Secured Secured with with Tape,Other -Other Covering abd -Aquacel Extra 1 #1- LEFT GROIN- POST OP -Ulcer Cleansing Rinsed/ Irrigated with Saline -Foul Odor after Cleansing No -Primary Dressing Applied Aquacel Extra -Primary Dressing Covered/Secured Secured with with Tape,Other -Other Covering abd -Aquacel Extra 0 [Post Procedure Tolerated] -Treatment Response Procedure Tolerated Well Pain Scale: 0-10 Numeric [Pain] -Is Patient Pain Free? Yes WC - Visit Discharge [Visit Discharge Information] -Discharge Condition Stable -Ambulatory Status Ambulatory -Transportation Private Auto Neurological: Neuro grossly intact Psych/Mental Status: Normal Affect, Appropriate, Alert and oriented to time, place, person, mood and affect Debridement Note Post-Debridement Measurements/Treatment WC - Nurse 2 - General Ulcer CM Notes Start: 12/24/19 12:52 Freq: Status: Active Protocol: Activity Type Activity Date Activity User E-Sign Co-Sign Detail Recorded Client Recorded Date Recorded By Document 12/24/19 13:29 MW [id number] 12/24/19 13:31 MW Document 12/31/19 13:59 MW [id number] 12/31/19 14:01 MW 12/24/19 12/31/19 13:29 13:59 Wound Center Nurse 2 #6 LEFT MEDIAL GROIN CLUSTER -Time 13:30 13:59 -Correct Patient Yes Yes -Correct Side, Site, Position Yes Yes -Correct Procedure Yes Yes -Procedure Performed Yes Yes -Type of Procedure Debridement Debridement -Clinical Debridement Subcutaneous Subcutaneous -Tissue Removed Subcutaneous Subcutaneous -Post Debridement (cm) - Length 1.0 1.0 -Post Debridement (cm) - Width 7.5 2.5 -Post Debridement (cm) - Depth 0.1 0.1 -Total Square (Post) (cm) 7.50 2.50 -Area of Debridement (cm) - Length 1.0 1.0 -Area of Debridement (cm) - Width 7.5 2.5 -Total Square (Area) (cm) 7.50 2.50 -Tunneling No No -Undermining/Tunneling No No -Circular Undermining No No -Wound/Ulcer Outcome Not Healed Not Healed -Ulcer Cleansing Rinsed/ Rinsed/ Irrigated with Irrigated with Saline Saline -Foul Odor after Cleansing No No -Bioengineered Tissue No No -Bleeding Controlled with Pressure Pressure -Offloading No No -Debridement - Subq, 1st 20sq cm Yes Yes #1- LEFT GROIN- POST OP -Time 13:30 14:00 -Correct Patient Yes Yes -Correct Side, Site, Position Yes Yes -Correct Procedure Yes Yes -Procedure Performed Yes Yes -Type of Procedure Debridement Debridement -Clinical Debridement Subcutaneous Subcutaneous -Tissue Removed Subcutaneous Subcutaneous -Post Debridement (cm) - Length 1.5 1.5 -Post Debridement (cm) - Width 7.5 8.5 -Post Debridement (cm) - Depth 0.1 0.1 -Total Square (Post) (cm) 11.25 12.75 -Area of Debridement (cm) - Length 1.5 1.5 -Area of Debridement (cm) - Width 7.5 8.5 -Total Square (Area) (cm) 11.25 12.75 -Tunneling No No -Undermining/Tunneling No No -Circular Undermining No No -Wound/Ulcer Outcome Not Healed Not Healed -Ulcer Cleansing Rinsed/ Rinsed/ Irrigated with Irrigated with Saline Saline -Foul Odor after Cleansing No No -Bioengineered Tissue No No -Bleeding Controlled with Pressure Pressure -Offloading No No -Treatment Response Procedure Tolerated Well -Debridement - Subq, 1st 20sq cm No No Pain Scale: 0-10 Numeric Is Patient Pain Free? Yes Yes - Nurse 3 - General Ulcer D/C NN Start: 12/24/19 12:52 Freq: Status: Active Protocol: Activity Type Activity Date Activity User E-Sign Co-Sign Detail Recorded Client Recorded Date Recorded By Document 12/24/19 13:42 [facility] [id number] 12/24/19 13:44 [facility] Document 12/31/19 14:10 [facility] [id number] 12/31/19 14:11 [facility] 12/24/19 12/31/19 13:42 14:10 Wound Care Nurse 3 #6 LEFT MEDIAL GROIN CLUSTER -Ulcer Cleansing Rinsed/ Rinsed/ Irrigated with Irrigated with Saline Saline -Foul Odor after Cleansing No No -Primary Dressing Applied Other Aquacel Extra -Other Dressing melgisorb -Primary Dressing Covered/Secured with Secured with Secured with Tape,Other Tape,Other -Other Covering abd abd -Aquacel Extra 1 #1- LEFT GROIN- POST OP -Ulcer Cleansing Rinsed/ Rinsed/ Irrigated with Irrigated with Saline Saline -Foul Odor after Cleansing No No -Primary Dressing Applied Other Aquacel Extra -Other Dressing melgisorb -Primary Dressing Covered/Secured with Secured with Secured with Tape,Other Tape,Other -Other Covering abd abd -Aquacel Extra 0 Treatment Response Procedure Procedure Tolerated Well Tolerated Well Pain Scale: 0-10 Numeric Is Patient Pain Free? Yes Yes WC - Visit Discharge Discharge Condition Stable Stable Ambulatory Status Ambulatory Ambulatory Transportation Private [facility] Facility Type Home Health Wound debrided: Left groin ulcers Laterality: Left Type of Debridement: Excisional debridement Anesthesia Used: 5% Lidocaine Gel Depth: in the subcutaneous layer Percentage of wound debrided: 100 Instrument Used: 5mm curette Tissue Removed: Slough and devitalized tissue Severity: Fat Layer Exposed Amount of bleeding with debridement: Mild Bleeding Controlled with: Pressure Patient tolerated procedure well Assessment/Plan Active Problems Non-healing surgical wound of left groin (Chronic) x 3 Non-healing surgical wound (Chronic) Assessment: Nonhealing postsurgical wound left groin status post surgical excision of necrotizing fasciitis. Morbid obesity. Type 2 diabetes mellitus Plan: Patient Continues having issues healing his left groin and medial groin ulcers due to excess moisture and maceration.Debridement done as documented above, procedure was well tolerated. Continue Meglisorb daily Cover with karramax and/or ABD And as needed. Continue antifungal powder to non open area to help keep it dry. Continue increased protein intake. Weight loss recommended. His questions were answered and he was advised to call with any further questions or concerns. Follow up in 1 week Or sooner if needed. Referral to plastic surgery given his delayed wound healing. This note was generated with [employer] software. It may contain incorrect words, spelling, and punctuation that were not noted in checking the note before signing. [id number]: [id number] Jessica subq tissue 20 sq cm/<
[2020-01-07 13:15] VITALS: BP 141/81; PULSE 85; RESP 18; TEMP 36.2
--- NOTE | 2020-01-07 16:28 | PCM.WC.PN ---
(1) Non-healing surgical wound of left groin Status: Chronic Current Visit: Yes Qualifiers: Code(s): T81.89XA - Other complications of procedures, not elsewhere classified, initial encounter Comment: x 3 (2) Non-healing surgical wound Status: Chronic Current Visit: Yes Qualifiers: Code(s): T81.89XA - Other complications of procedures, not elsewhere classified, initial encounter (3) Lymphedema of both lower extremities Status: Acute Current Visit: No Code(s): I89.0 - Lymphedema, not elsewhere classified (4) History of necrotising fasciitis Status: Chronic Current Visit: No Code(s): Z87.39 - Personal history of other diseases of the musculoskeletal system and connective tissue (5) Morbid obesity Status: Chronic Current Visit: No Code(s): E66.01 - Morbid (severe) obesity due to excess calories (6) Skin ulcer of abdominal wall with fat layer exposed Status: Chronic Current Visit: No Code(s): L98.492 - Non-pressure chronic ulcer of skin of other sites with fat layer exposed Comment: left abdominal fold and left medial groin cluster ulcers (7) Type 2 diabetes mellitus Status: Chronic Current Visit: No Qualifiers: Code(s): E11.9 - Type 2 diabetes mellitus without complications Type of Wound Date of Service: 01/07/20 Chief Complaint: Nonhealing wound status post surgical excision of necrotizing fasciitis left groin History of Wound: 46-year-old white male who presents to the wound healing center today with complaint of left groin ulceration status post surgical excision of necrotizing fasciitis. He is a past medical history which is significant for that of type 2 diabetes mellitus, gout, diabetic neuropathy, schizophrenia, bilateral lymphedema, and schizophrenia. The patient states that what initially started as a pimple in his left groin progressed to necrotizing fasciitis and he had to have this surgically debrided in April 2017. He was admitted to [facility] for 2 weeks and then [facility] for 6 weeks afterwards. He states that the groin ulcer which extends to his left lower abdomen has been slowly improving and he has been doing daily Aquacel AG dressings with an ABD for the drainage. He does state that he has had 3 wound vacs in the past which were unable to be utilized due to the location of his wound. He denies any foul-smelling discharge or systemic signs of infection at this time. He is seen today as a courtesy visit for Gianni Neil CNP. He is tolerating dressings and denies any increase in drainage. He has been also using sweat beater to his groin area to prevent moisture. The patient otherwise denies any fever, chills, nausea, vomiting, shortness of breath, chest pain or pressure, palpitations, orthopnea, syncope or presyncopal episodes. Progress of Wound: 11/12/2019?more maceration noted today and heat, patient now has 3 groin ulcers with an additional lateral and medial ulceration as well. Given the excess moisture will order a super Absorbent dressing to be utilized over top of his current wound care plan. 11/27/2019?lateral ulcer has healed, left groin ulcer and medial ulcer continues with maceration, otherwise no further concerns. 12/10/2019?no new concerns, doing well with dressings, still having issues with moisture. 12/24/2019?no new concerns, doing well with dressings, still having issues with moisture and very slow wound healing. Will refer to plastic surgery for another consultation given the fact that he is failed multiple wound treatments and also his wounds have had delayed healing over the past year. 12/31/19-no new concerns, patient has a pending consult with plastic surgery due to his multiple failed wound treatments. 01/07/20-no new concerns, patient has a pending consult with plastic surgery due to his multiple failed wound treatments. - Physical Exam Vital Signs Temp Pulse Resp BP 97.1 F L 85 18 141/81 H 01/07/20 13:15 01/07/20 13:15 01/07/20 13:15 01/07/20 13:15 General: Alert, Oriented x3, Cooperative, No apparent distress HEENT: Atraumatic Oral: Moist Mucosa Lungs: Clear to auscultation, Normal air movement Cardiovascular: Regular rate, Regular Rhythm Abdomen: Soft, Non Tender Extremities: No clubbing, No cyanosis, No edema Skin: No rashes, No breakdown, Ulcer/ Wound - See nursing documentation, slough and devitalized tissue present, some surrounding maceration present as well Wound Measurements and Assessment WC - Nurse 1 - General Ulcer Measurement Start: 12/24/19 12:52 Freq: Status: Active Protocol: Activity Type Activity Date Activity User E-Sign Co-Sign Detail Recorded Client Recorded Date Recorded By Document 01/07/20 13:15 [facility] [id number] 01/07/20 13:19 BM 01/07/20 13:15 Wound Center Nurse 1 [Ulcer Assessment] #6 LEFT MEDIAL GROIN CLUSTER -Combined with other wound No -Current Size (cm) - Length 0.7 -Current Size (cm) - Width 2 -Current Size (cm) - Depth 0.2 -Total Square Cm 1.4 -Photo Taken No -Epithelialization Small 1-33% -Tunneling No -Undermining/Tunneling No -Circular Undermining No -Exudate Amt Small -Exudate Type Serosanguineous -Wound Margin Thickened -Granulation Amt Large (67-100%) -Granulation Quality Red -Slough/Fibrin No -Necrosis Amt None Present (0 %) -Texture (Inessa-wound Skin Appearance) Assessed, Scarring -Moisture (Inessa-wound Skin Appearance Assessed ) -Color (Inessa-wound Skin Appearance) Assessed -Temperature (Inessa-wound Skin No Abnormality Appearance) (Pt Warm) -Tenderness on Palpation (Inessa-wound No Skin Appearance) -Ulcer Cleansing SOAPY WATER -Foul Odor after Cleansing No -Anesthetic Used 4% Lidocaine Solution #1- LEFT GROIN- POST OP -Combined with other wound No -Current Size (cm) - Length 1.5 -Current Size (cm) - Width 9 -Current Size (cm) - Depth 0.2 -Total Square Cm 13.5 -Photo Taken No -Epithelialization Small 1-33% -Tunneling No -Undermining/Tunneling No -Circular Undermining No -Exudate Amt Small -Exudate Type Serosanguineous -Wound Margin Thickened -Granulation Amt Large (67-100%) -Granulation Quality Red -Slough/Fibrin No -Necrosis Amt None Present (0 %) -Texture (Inessa-wound Skin Appearance) Assessed, Scarring -Moisture (Inessa-wound Skin Appearance Assessed ) -Color (Inessa-wound Skin Appearance) Assessed -Temperature (Inessa-wound Skin No Abnormality Appearance) (Pt Warm) -Tenderness on Palpation (Inessa-wound No Skin Appearance) -Ulcer Cleansing SOAPY WATER -Foul Odor after Cleansing No -Anesthetic Used 4% Lidocaine Solution WC - Nurse 2 - General Ulcer CM Notes Start: 12/24/19 12:52 Freq: Status: Active Protocol: Activity Type Activity Date Activity User E-Sign Co-Sign Detail Recorded Client Recorded Date Recorded By Document 01/07/20 13:29 MW [id number] 01/07/20 13:33 MW 01/07/20 13:29 Wound Center Nurse 2 [Procedure/Treatment] #6 LEFT MEDIAL GROIN CLUSTER -Time 13:32 -Correct Patient Yes -Correct Side, Site, Position Yes -Correct Procedure Yes -Procedure Performed Yes -Type of Procedure Debridement -Clinical Debridement Subcutaneous -Tissue Removed Subcutaneous -Post Debridement (cm) - Length 0.6 -Post Debridement (cm) - Width 1.7 -Post Debridement (cm) - Depth 0.1 -Total Square (Post) (cm) 1.02 -Area of Debridement (cm) - Length 0.6 -Area of Debridement (cm) - Width 1.7 -Total Square (Area) (cm) 1.02 -Tunneling No -Undermining/Tunneling No -Circular Undermining No -Wound/Ulcer Outcome Not Healed -Ulcer Cleansing Rinsed/ Irrigated with Saline -Foul Odor after Cleansing No -Bioengineered Tissue No -Bleeding Controlled with Pressure -Offloading No -Treatment Response Procedure Tolerated Well -Debridement - Subq, 1st 20sq cm Yes #1- LEFT GROIN- POST OP -Time 13:32 -Correct Patient Yes -Correct Side, Site, Position Yes -Correct Procedure Yes -Procedure Performed Yes -Type of Procedure Debridement -Clinical Debridement Subcutaneous -Tissue Removed Subcutaneous -Post Debridement (cm) - Length 1.6 -Post Debridement (cm) - Width 8.0 -Post Debridement (cm) - Depth 0.1 -Total Square (Post) (cm) 12.80 -Area of Debridement (cm) - Length 1.6 -Area of Debridement (cm) - Width 8.0 -Total Square (Area) (cm) 12.80 -Tunneling No -Undermining/Tunneling No -Circular Undermining No -Wound/Ulcer Outcome Not Healed -Ulcer Cleansing Rinsed/ Irrigated with Saline -Foul Odor after Cleansing No -Bioengineered Tissue No -Bleeding Controlled with Pressure -Offloading No -Treatment Response Procedure Tolerated Well -Debridement - Subq, 1st 20sq cm No [See Physician Procedure note for Specifics] Pain Scale: 0-10 Numeric [Pain] -Is Patient Pain Free? Yes WC - Nurse 3 - General Ulcer D/C NN Start: 12/24/19 12:52 Freq: Status: Active Protocol: Activity Type Activity Date Activity User E-Sign Co-Sign Detail Recorded Client Recorded Date Recorded By Document 01/07/20 13:40 MW [id number] 01/07/20 13:42 MW 01/07/20 13:40 Wound Care Nurse 3 [Wound Dressing] #6 LEFT MEDIAL GROIN CLUSTER -Ulcer Cleansing Rinsed/ Irrigated with Saline -Foul Odor after Cleansing No -Negative Pressure Wound Therapy N/A -Primary Dressing Applied Aquacel Extra -Primary Dressing Covered/Secured Dry Gauze, with Secured with Tape -Aquacel Extra 1 #1- LEFT GROIN- POST OP -Ulcer Cleansing Rinsed/ Irrigated with Saline -Foul Odor after Cleansing No -Negative Pressure Wound Therapy N/A -Other Dressing AQUACEL EXTRA -Primary Dressing Covered/Secured Dry Gauze, with Secured with Tape [Post Procedure Tolerated] -Treatment Response Procedure Tolerated Well Pain Scale: 0-10 Numeric [Pain] -Is Patient Pain Free? Yes Teaching: Wound Center [Wound Center Education] (Items with an * have Printed Materials Available- Please identify what is given to patient under the Teaching materials given to patient and caregiver Section. Dressing Your Wound -Person Taught Patient -Teaching Method Discussion, Demonstration -Response to teaching Verbalize understanding WC - Visit Discharge [Visit Discharge Information] -Discharge Condition Stable -Ambulatory Status Ambulatory -Transportation Private Auto -Accompanied by BROTHER -Medication Reconcilliation completed No & provided to patient/care provider -Clinical Summary of Care Provided Yes Neurological: Neuro grossly intact Psych/Mental Status: Normal Affect, Appropriate, Alert and oriented to time, place, person, mood and affect Debridement Note Post-Debridement Measurements/Treatment WC - Nurse 2 - General Ulcer CM Notes Start: 12/24/19 12:52 Freq: Status: Active Protocol: Activity Type Activity Date Activity User E-Sign Co-Sign Detail Recorded Client Recorded Date Recorded By Document 12/24/19 13:29 MW [id number] 12/24/19 13:31 MW Document 12/31/19 13:59 MW [id number] 12/31/19 14:01 MW Document 01/07/20 13:29 MW [id number] 01/07/20 13:33 MW 12/24/19 12/31/19 01/07/20 13:29 13:59 13:29 Wound Center Nurse 2 #6 LEFT MEDIAL GROIN CLUSTER -Time 13:30 13:59 13:32 -Correct Patient Yes Yes Yes -Correct Side, Site, Position Yes Yes Yes -Correct Procedure Yes Yes Yes -Procedure Performed Yes Yes Yes -Type of Procedure Debridement Debridement Debridement -Clinical Debridement Subcutaneous Subcutaneous Subcutaneous -Tissue Removed Subcutaneous Subcutaneous Subcutaneous -Post Debridement (cm) - Length 1.0 1.0 0.6 -Post Debridement (cm) - Width 7.5 2.5 1.7 -Post Debridement (cm) - Depth 0.1 0.1 0.1 -Total Square (Post) (cm) 7.50 2.50 1.02 -Area of Debridement (cm) - Length 1.0 1.0 0.6 -Area of Debridement (cm) - Width 7.5 2.5 1.7 -Total Square (Area) (cm) 7.50 2.50 1.02 -Tunneling No No No -Undermining/Tunneling No No No -Circular Undermining No No No -Wound/Ulcer Outcome Not Healed Not Healed Not Healed -Ulcer Cleansing Rinsed/ Rinsed/ Rinsed/ Irrigated with Irrigated with Irrigated with Saline Saline Saline -Foul Odor after Cleansing No No No -Bioengineered Tissue No No No -Bleeding Controlled with Pressure Pressure Pressure -Offloading No No No -Treatment Response Procedure Tolerated Well -Debridement - Subq, 1st 20sq cm Yes Yes Yes #1- LEFT GROIN- POST OP -Time 13:30 14:00 13:32 -Correct Patient Yes Yes Yes -Correct Side, Site, Position Yes Yes Yes -Correct Procedure Yes Yes Yes -Procedure Performed Yes Yes Yes -Type of Procedure Debridement Debridement Debridement -Clinical Debridement Subcutaneous Subcutaneous Subcutaneous -Tissue Removed Subcutaneous Subcutaneous Subcutaneous -Post Debridement (cm) - Length 1.5 1.5 1.6 -Post Debridement (cm) - Width 7.5 8.5 8.0 -Post Debridement (cm) - Depth 0.1 0.1 0.1 -Total Square (Post) (cm) 11.25 12.75 12.80 -Area of Debridement (cm) - Length 1.5 1.5 1.6 -Area of Debridement (cm) - Width 7.5 8.5 8.0 -Total Square (Area) (cm) 11.25 12.75 12.80 -Tunneling No No No -Undermining/Tunneling No No No -Circular Undermining No No No -Wound/Ulcer Outcome Not Healed Not Healed Not Healed -Ulcer Cleansing Rinsed/ Rinsed/ Rinsed/ Irrigated with Irrigated with Irrigated with Saline Saline Saline -Foul Odor after Cleansing No No No -Bioengineered Tissue No No No -Bleeding Controlled with Pressure Pressure Pressure -Offloading No No No -Treatment Response Procedure Procedure Tolerated Well Tolerated Well -Debridement - Subq, 1st 20sq cm No No No Pain Scale: 0-10 Numeric Is Patient Pain Free? Yes Yes Yes - Nurse 3 - General Ulcer D/C NN Start: 12/24/19 12:52 Freq: Status: Active Protocol: Activity Type Activity Date Activity User E-Sign Co-Sign Detail Recorded Client Recorded Date Recorded By Document 12/24/19 13:42 [facility] [id number] 12/24/19 13:44 BM Document 12/31/19 14:10 BM [id number] 12/31/19 14:11 BM Document 01/07/20 13:40 MW [id number] 01/07/20 13:42 MW 12/24/19 12/31/19 01/07/20 13:42 14:10 13:40 Wound Care Nurse 3 #6 LEFT MEDIAL GROIN CLUSTER -Ulcer Cleansing Rinsed/ Rinsed/ Rinsed/ Irrigated with Irrigated with Irrigated with Saline Saline Saline -Foul Odor after Cleansing No No No -Negative Pressure Wound Therapy N/A -Primary Dressing Applied Other Aquacel Extra Aquacel Extra -Other Dressing melgisorb -Primary Dressing Covered/Secured with Secured with Secured with Dry Gauze, Tape,Other Tape,Other Secured with Tape -Other Covering abd abd -Aquacel Extra 1 1 #1- LEFT GROIN- POST OP -Ulcer Cleansing Rinsed/ Rinsed/ Rinsed/ Irrigated with Irrigated with Irrigated with Saline Saline Saline -Foul Odor after Cleansing No No No -Negative Pressure Wound Therapy N/A -Primary Dressing Applied Other Aquacel Extra -Other Dressing melgisorb AQUACEL EXTRA -Primary Dressing Covered/Secured with Secured with Secured with Dry Gauze, Tape,Other Tape,Other Secured with Tape -Other Covering abd abd -Aquacel Extra 0 Treatment Response Procedure Procedure Procedure Tolerated Well Tolerated Well Tolerated Well Pain Scale: 0-10 Numeric Is Patient Pain Free? Yes Yes Yes Teaching: Wound Center Dressing Your Wound -Person Taught Patient -Teaching Method Discussion, Demonstration -Response to teaching Verbalize understanding WC - Visit Discharge Discharge Condition Stable Stable Stable Ambulatory Status Ambulatory Ambulatory Ambulatory Transportation Private Auto Private Auto Private Auto Accompanied by BROTHER Medication Reconcilliation completed & No provided to patient/care provider Clinical Summary of Care Provided Yes Facility Type Home Health Wound debrided: Left groin ulcer status post necrotizing fasciitis Laterality: Left Type of Debridement: Excisional debridement Anesthesia Used: 5% Lidocaine Gel Depth: Down to and including healthy tissue, in the subcutaneous layer Percentage of wound debrided: 100 Instrument Used: 5mm curette Tissue Removed: Slough and devitalized tissue Severity: Fat Layer Exposed Amount of bleeding with debridement: Mild Bleeding Controlled with: Pressure Patient tolerated procedure well Assessment/Plan Active Problems Non-healing surgical wound of left groin (Chronic) x 3 Non-healing surgical wound (Chronic) Assessment: Nonhealing postsurgical wound left groin status post surgical excision of necrotizing fasciitis. Morbid obesity. Type 2 diabetes mellitus Plan: Patient Continues having issues healing his left groin and medial groin ulcers due to excess moisture and maceration.Debridement done as documented above, procedure was well tolerated. Continue Meglisorb daily Cover with karramax and/or ABD And as needed. Continue antifungal powder to non open area to help keep it dry. Continue increased protein intake. Weight loss recommended. His questions were answered and he was advised to call with any further questions or concerns. Follow up in 1 week Or sooner if needed. Referral to plastic surgery given his delayed wound healing. This note was generated with [employer] dictation software. It may contain incorrect words, spelling, and punctuation that were not noted in checking the note before signing. [id number]: [id number] Jessica subq tissue 20 sq cm/<
[2020-01-14 13:27] VITALS: BP 156/91; PULSE 94; RESP 16; TEMP 35.8
--- NOTE | 2020-01-14 16:26 | PN.PCM_ITS ---
(1) Non-healing surgical wound of left groin Status: Chronic Current Visit: Yes Qualifiers: Code(s): T81.89XA - Other complications of procedures, not elsewhere classified, initial encounter Comment: x 3 (2) Non-healing surgical wound Status: Chronic Current Visit: Yes Qualifiers: Code(s): T81.89XA - Other complications of procedures, not elsewhere classified, initial encounter (3) Lymphedema of both lower extremities Status: Acute Current Visit: No Code(s): I89.0 - Lymphedema, not elsewhere classified (4) History of necrotising fasciitis Status: Chronic Current Visit: No Code(s): Z87.39 - Personal history of other diseases of the musculoskeletal system and connective tissue (5) Morbid obesity Status: Chronic Current Visit: No Code(s): E66.01 - Morbid (severe) obesity due to excess calories (6) Skin ulcer of abdominal wall with fat layer exposed Status: Chronic Current Visit: No Code(s): L98.492 - Non-pressure chronic ulcer of skin of other sites with fat layer exposed Comment: left abdominal fold and left medial groin cluster ulcers (7) Type 2 diabetes mellitus Status: Chronic Current Visit: No Qualifiers: Code(s): E11.9 - Type 2 diabetes mellitus without complications Type of Wound Date of Service: 01/14/20 Chief Complaint: Nonhealing wound status post surgical excision of necrotizing fasciitis left groin History of Wound: 46-year-old white male who presents to the wound healing center today with complaint of left groin ulceration status post surgical excision of necrotizing fasciitis. He is a past medical history which is significant for that of type 2 diabetes mellitus, gout, diabetic neuropathy, schizophrenia, bilateral lymphedema, and schizophrenia. The patient states that what initially started as a pimple in his left groin progressed to necrotizing fasciitis and he had to have this surgically debrided in April 2017. He was admitted to [facility] for 2 weeks and then [facility] for 6 weeks afterwards. He states that the groin ulcer which extends to his left lower abdomen has been slowly improving and he has been doing daily Aquacel AG dressings with an ABD for the drainage. He does state that he has had 3 wound vacs in the past which were unable to be utilized due to the location of his wound. He denies any foul-smelling discharge or systemic signs of infection at this time. He is seen today as a courtesy visit for Gianni Neil CNP. He is tolerating dressings and denies any increase in drainage. He has been also using sweat beater to his groin area to prevent moisture. The patient otherwise denie s any fever, chills, nausea, vomiting, shortness of breath, chest pain or pressure, palpitations, orthopnea, syncope or presyncopal episodes. Progress of Wound: 11/12/2019?more maceration noted today and heat, patient now has 3 groin ulcers with an additional lateral and medial ulceration as well. Given the excess moisture will order a super Absorbent dressing to be utilized over top of his current wound care plan. 11/27/2019?lateral ulcer has healed, left groin ulcer and medial ulcer continues with maceration, otherwise no further concerns. 12/10/2019?no new concerns, doing well with dressings, still having issues with moisture. 12/24/2019?no new concerns, doing well with dressings, still having issues with moisture and very slow wound healing. Will refer to plastic surgery for another consultation given the fact that he is failed multiple wound treatments and also his wounds have had delayed healing over the past year. 12/31/19-no new concerns, patient has a pending consult with plastic surgery due to his multiple failed wound treatments. 01/07/20-no new concerns, patient has a pending consult with plastic surgery due to his multiple failed wound treatments. 01/07/20-no new concerns, patient has a pending consult with plastic surgery due to his multiple failed wound treatments. - Physical Exam Vital Signs Temp Pulse Resp BP 96.4 F L 94 16 156/91 H 01/14/20 13:27 01/14/20 13:27 01/14/20 13:27 01/14/20 13:27 General: Alert, Oriented x3, Cooperative, No apparent distress HEENT: Atraumatic Oral: Moist Mucosa Neck: Supple, No JVD Lungs: Clear to auscultation, Normal air movement Cardiovascular: Regular rate, Regular Rhythm Abdomen: Soft, Non Tender Extremities: No clubbing, No cyanosis, No edema Skin: Ulcer/ Wound - See nursing documentation, slough and devitalized tissue, no signs of infection at this time Wound Measurements and Assessment WC - Nurse 1 - General Ulcer Measurement Start: 12/24/19 12:52 Freq: Status: Active Protocol: Activity Type Activity Date Activity User E-Sign Co-Sign Detail Recorded Client Recorded Date Recorded By Document 01/14/20 13:27 [facility] [id number] 01/14/20 13:36 [facility] 01/14/20 13:27 Wound Center Nurse 1 [Ulcer Assessment] #6 LEFT MEDIAL GROIN CLUSTER -Combined with other wound No -Current Size (cm) - Length 0.3 -Current Size (cm) - Width 2.4 -Current Size (cm) - Depth 0.3 -Total Square Cm 0.72 -Photo Taken No -Epithelialization None Present -Tunneling No -Undermining/Tunneling No -Circular Undermining No -Exudate Amt Medium -Exudate Type Serosanguineous -Wound Margin Thickened -Granulation Amt Large (67-100%) -Granulation Quality Pale,Red -Slough/Fibrin No -Necrosis Amt None Present (0 %) -Texture (Inessa-wound Skin Appearance) Assessed, Scarring -Moisture (Inessa-wound Skin Appearance Assessed ) -Color (Inessa-wound Skin Appearance) Assessed -Temperature (Inessa-wound Skin No Abnormality Appearance) (Pt Warm) -Tenderness on Palpation (Inessa-wound No Skin Appearance) -Ulcer Cleansing soapy water -Foul Odor after Cleansing No -Anesthetic Used 4% Lidocaine Solution #1- LEFT GROIN- POST OP -Combined with other wound No -Current Size (cm) - Length 1.3 -Current Size (cm) - Width 8.5 -Current Size (cm) - Depth 0.2 -Total Square Cm 11.05 -Photo Taken No -Epithelialization None Present -Tunneling No -Undermining/Tunneling No -Circular Undermining No -Exudate Amt Medium -Exudate Type Serosanguineous -Wound Margin Thickened -Granulation Amt Large (67-100%) -Granulation Quality Pale,Red -Slough/Fibrin No -Necrosis Amt None Present (0 %) -Texture (Inessa-wound Skin Appearance) Assessed, Scarring -Moisture (Inessa-wound Skin Appearance Assessed ) -Color (Inessa-wound Skin Appearance) Assessed -Temperature (Inessa-wound Skin No Abnormality Appearance) (Pt Warm) -Tenderness on Palpation (Inessa-wound No Skin Appearance) -Ulcer Cleansing soapy water -Foul Odor after Cleansing No -Anesthetic Used 4% Lidocaine Solution - Nurse 2 - General Ulcer CM Notes Start: 12/24/19 12:52 Freq: Status: Active Protocol: Activity Type Activity Date Activity User E-Sign Co-Sign Detail Recorded Client Recorded Date Recorded By Document 01/14/20 13:53 MW [id number] 01/14/20 13:55 MW 01/14/20 13:53 Wound Center Nurse 2 [Procedure/Treatment] #6 LEFT MEDIAL GROIN CLUSTER -Time 13:53 -Correct Patient Yes -Correct Side, Site, Position Yes -Correct Procedure Yes -Procedure Performed Yes -Type of Procedure Debridement -Clinical Debridement Subcutaneous -Tissue Removed Subcutaneous -Post Debridement (cm) - Length 1.0 -Post Debridement (cm) - Width 1.3 -Post Debridement (cm) - Depth 0.1 -Total Square (Post) (cm) 1.30 -Area of Debridement (cm) - Length 1.0 -Area of Debridement (cm) - Width 1.3 -Total Square (Area) (cm) 1.30 -Tunneling No -Undermining/Tunneling No -Circular Undermining No -Wound/Ulcer Outcome Not Healed -Ulcer Cleansing Rinsed/ Irrigated with Saline -Foul Odor after Cleansing No -Bioengineered Tissue No -Bleeding Controlled with Pressure -Offloading No -Debridement - Subq, 1st 20sq cm Yes #1- LEFT GROIN- POST OP -Time 13:53 -Correct Patient Yes -Correct Side, Site, Position Yes -Correct Procedure Yes -Type of Procedure Debridement -Clinical Debridement Subcutaneous -Tissue Removed Subcutaneous -Post Debridement (cm) - Length 1.4 -Post Debridement (cm) - Width 8.5 -Post Debridement (cm) - Depth 0.1 -Total Square (Post) (cm) 11.90 -Area of Debridement (cm) - Length 1.4 -Area of Debridement (cm) - Width 8.5 -Total Square (Area) (cm) 11.90 -Tunneling No -Undermining/Tunneling No -Circular Undermining No -Wound/Ulcer Outcome Not Healed -Ulcer Cleansing Rinsed/ Irrigated with Saline -Foul Odor after Cleansing No -Bioengineered Tissue No -Bleeding Controlled with Pressure -Offloading No -Debridement - Subq, 1st 20sq cm No [See Physician Procedure note for Specifics] Pain Scale: 0-10 Numeric [Pain] -Is Patient Pain Free? Yes Musculoskeletal: No Tenderness to Palpation of Joints or Extremities Lymphatic: No Cervical, Supraclavicular, or Inguinal Adenopathy Neurological: Cranial nerves II-XII grossly intact, Neuro grossly intact Psych/Mental Status: Normal Affect, Appropriate, Alert and oriented to time, place, person, mood and affect Debridement Note Post-Debridement Measurements/Treatment WC - Nurse 2 - General Ulcer CM Notes Start: 12/24/19 12:52 Freq: Status: Active Protocol: Activity Type Activity Date Activity User E-Sign Co-Sign Detail Recorded Client Recorded Date Recorded By Document 12/24/19 13:29 MW [id number] 12/24/19 13:31 MW Document 12/31/19 13:59 MW [id number] 12/31/19 14:01 MW Document 01/07/20 13:29 MW [id number] 01/07/20 13:33 MW Document 01/14/20 13:53 MW [id number] 01/14/20 13:55 MW 12/24/19 12/31/19 01/07/20 13:29 13:59 13:29 Wound Center Nurse 2 #6 LEFT MEDIAL GROIN CLUSTER -Time 13:30 13:59 13:32 -Correct Patient Yes Yes Yes -Correct Side, Site, Position Yes Yes Yes -Correct Procedure Yes Yes Yes -Procedure Performed Yes Yes Yes -Type of Procedure Debridement Debridement Debridement -Clinical Debridement Subcutaneous Subcutaneous Subcutaneous -Tissue Removed Subcutaneous Subcutaneous Subcutaneous -Post Debridement (cm) - Length 1.0 1.0 0.6 -Post Debridement (cm) - Width 7.5 2.5 1.7 -Post Debridement (cm) - Depth 0.1 0.1 0.1 -Total Square (Post) (cm) 7.50 2.50 1.02 -Area of Debridement (cm) - Length 1.0 1.0 0.6 -Area of Debridement (cm) - Width 7.5 2.5 1.7 -Total Square (Area) (cm) 7.50 2.50 1.02 -Tunneling No No No -Undermining/Tunneling No No No -Circular Undermining No No No -Wound/Ulcer Outcome Not Healed Not Healed Not Healed -Ulcer Cleansing Rinsed/ Rinsed/ Rinsed/ Irrigated with Irrigated with Irrigated with Saline Saline Saline -Foul Odor after Cleansing No No No -Bioengineered Tissue No No No -Bleeding Controlled with Pressure Pressure Pressure -Offloading No No No -Treatment Response Procedure Tolerated Well -Debridement - Subq, 1st 20sq cm Yes Yes Yes #1- LEFT GROIN- POST OP -Time 13:30 14:00 13:32 -Correct Patient Yes Yes Yes -Correct Side, Site, Position Yes Yes Yes -Correct Procedure Yes Yes Yes -Procedure Performed Yes Yes Yes -Type of Procedure Debridement Debridement Debridement -Clinical Debridement Subcutaneous Subcutaneous Subcutaneous -Tissue Removed Subcutaneous Subcutaneous Subcutaneous -Post Debridement (cm) - Length 1.5 1.5 1.6 -Post Debridement (cm) - Width 7.5 8.5 8.0 -Post Debridement (cm) - Depth 0.1 0.1 0.1 -Total Square (Post) (cm) 11.25 12.75 12.80 -Area of Debridement (cm) - Length 1.5 1.5 1.6 -Area of Debridement (cm) - Width 7.5 8.5 8.0 -Total Square (Area) (cm) 11.25 12.75 12.80 -Tunneling No No No -Undermining/Tunneling No No No -Circular Undermining No No No -Wound/Ulcer Outcome Not Healed Not Healed Not Healed -Ulcer Cleansing Rinsed/ Rinsed/ Rinsed/ Irrigated with Irrigated with Irrigated with Saline Saline Saline -Foul Odor after Cleansing No No No -Bioengineered Tissue No No No -Bleeding Controlled with Pressure Pressure Pressure -Offloading No No No -Treatment Response Procedure Procedure Tolerated Well Tolerated Well -Debridement - Subq, 1st 20sq cm No No No Pain Scale: 0-10 Numeric Is Patient Pain Free? Yes Yes Yes 01/14/20 13:53 Wound Center Nurse 2 #6 LEFT MEDIAL GROIN CLUSTER -Time 13:53 -Correct Patient Yes -Correct Side, Site, Position Yes -Correct Procedure Yes -Procedure Performed Yes -Type of Procedure Debridement -Clinical Debridement Subcutaneous -Tissue Removed Subcutaneous -Post Debridement (cm) - Length 1.0 -Post Debridement (cm) - Width 1.3 -Post Debridement (cm) - Depth 0.1 -Total Square (Post) (cm) 1.30 -Area of Debridement (cm) - Length 1.0 -Area of Debridement (cm) - Width 1.3 -Total Square (Area) (cm) 1.30 -Tunneling No -Undermining/Tunneling No -Circular Undermining No -Wound/Ulcer Outcome Not Healed -Ulcer Cleansing Rinsed/ Irrigated with Saline -Foul Odor after Cleansing No -Bioengineered Tissue No -Bleeding Controlled with Pressure -Offloading No -Treatment Response -Debridement - Subq, 1st 20sq cm Yes #1- LEFT GROIN- POST OP -Time 13:53 -Correct Patient Yes -Correct Side, Site, Position Yes -Correct Procedure Yes -Procedure Performed -Type of Procedure Debridement -Clinical Debridement Subcutaneous -Tissue Removed Subcutaneous -Post Debridement (cm) - Length 1.4 -Post Debridement (cm) - Width 8.5 -Post Debridement (cm) - Depth 0.1 -Total Square (Post) (cm) 11.90 -Area of Debridement (cm) - Length 1.4 -Area of Debridement (cm) - Width 8.5 -Total Square (Area) (cm) 11.90 -Tunneling No -Undermining/Tunneling No -Circular Undermining No -Wound/Ulcer Outcome Not Healed -Ulcer Cleansing Rinsed/ Irrigated with Saline -Foul Odor after Cleansing No -Bioengineered Tissue No -Bleeding Controlled with Pressure -Offloading No -Treatment Response -Debridement - Subq, 1st 20sq cm No Pain Scale: 0-10 Numeric Is Patient Pain Free? Yes WC - Nurse 3 - General Ulcer D/C NN Start: 12/24/19 12:52 Freq: Status: Active Protocol: Activity Type Activity Date Activity User E-Sign Co-Sign Detail Recorded Client Recorded Date Recorded By Document 12/24/19 13:42 [facility] [id number] 12/24/19 13:44 [facility] Document 12/31/19 14:10 [facility] [id number] 12/31/19 14:11 [facility] Document 01/07/20 13:40 MW [id number] 01/07/20 13:42 MW 12/24/19 12/31/19 01/07/20 13:42 14:10 13:40 Wound Care Nurse 3 #6 LEFT MEDIAL GROIN CLUSTER -Ulcer Cleansing Rinsed/ Rinsed/ Rinsed/ Irrigated with Irrigated with Irrigated with Saline Saline Saline -Foul Odor after Cleansing No No No -Negative Pressure Wound Therapy N/A -Primary Dressing Applied Other Aquacel Extra Aquacel Extra -Other Dressing melgisorb -Primary Dressing Covered/Secured with Secured with Secured with Dry Gauze, Tape,Other Tape,Other Secured with Tape -Other Covering abd abd -Aquacel Extra 1 1 #1- LEFT GROIN- POST OP -Ulcer Cleansing Rinsed/ Rinsed/ Rinsed/ Irrigated with Irrigated with Irrigated with Saline Saline Saline -Foul Odor after Cleansing No No No -Negative Pressure Wound Therapy N/A -Primary Dressing Applied Other Aquacel Extra -Other Dressing melgisorb AQUACEL EXTRA -Primary Dressing Covered/Secured with Secured with Secured with Dry Gauze, Tape,Other Tape,Other Secured with Tape -Other Covering abd abd -Aquacel Extra 0 Treatment Response Procedure Procedure Procedure Tolerated Well Tolerated Well Tolerated Well Pain Scale: 0-10 Numeric Is Patient Pain Free? Yes Yes Yes Teaching: Wound Center Dressing Your Wound -Person Taught Patient -Teaching Method Discussion, Demonstration -Response to teaching Verbalize understanding WC - Visit Discharge Discharge Condition Stable Stable Stable Ambulatory Status Ambulatory Ambulatory Ambulatory Transportation Private Auto Private Auto Private Auto Accompanied by BROTHER Medication Reconcilliation completed & No provided to patient/care provider Clinical Summary of Care Provided Yes Facility Type Home Health Wound debrided: Left groin ulcers Laterality: Left Type of Debridement: Excisional debridement Anesthesia Used: 5% Lidocaine Gel Depth: in the subcutaneous layer Percentage of wound debrided: 100 Instrument Used: 5mm curette Tissue Removed: Slough and devitalized tissue Severity: Fat Layer Exposed Amount of bleeding with debridement: Mild Bleeding Controlled with: Pressure Patient tolerated procedure well Assessment/Plan Active Problems Non-healing surgical wound of left groin (Chronic) x 3 Non-healing surgical wound (Chronic) Assessment: Nonhealing postsurgical wound left groin status post surgical excision of necrotizing fasciitis. Morbid obesity. Type 2 diabetes mellitus Plan: Patient Continues having issues healing his left groin and medial groin ulcers due to excess moisture and maceration.Debridement done as documented above, procedure was well tolerated. Continue Meglisorb daily Cover with karramax and/or ABD And as needed. Continue antifungal powder to non open area to help keep it dry. Continue increased protein intake. Weight loss recommended. His questions were answered and he was advised to call with any further questions or concerns. Follow up in 1 week Or sooner if needed. Referral to plastic surgery given his delayed wound healing. This note was generated with [employer] software. It may contain incorrect words, spelling, and punctuation that were not noted in checking the note before signing. [id number]: [id number] Jessica subq tissue 20 sq cm/<
[2020-01-18 13:01] VITALS: BP 133/91; PULSE 93; RESP 18; TEMP 35.9
[2020-01-18 14:36] VITALS: BP 130/89; PULSE 91; RESP 16
--- NOTE | 2020-01-18 17:48 | PN.PCM_ITS ---
Type of Wound Date of Service: 01/18/20 Chief Complaint: Nonhealing diabetic ulcer left inguinal area with extension into the pubic area and left abdominal area with associated panniculus. History of Wound: 49-year-old white male has been coming to the [facility] for nonhealing diabetic ulcers left inguinal area with extension into the pubic area and left abdominal area with associated panniculus. These ulcerations were the result of surgical excision of necrotizing fasciitis in April,. He is a past medical history of diabetes mellitus, gout, diabetic neuropathy, schizophrenia and bilateral lymphedema. He has been using Calcium alginate dressing changes daily with improvement. He denies any fever. He had a wound culture done on 09/11/18 which showed Gram positive chantel and Coag negative Staph. I initially evaluated him in September, and surgery was recommended. He wanted to continue with wound care and now wants to proceed with surgical intervention. Progress of Wound: Improved. - Physical Exam Vital Signs Temp Pulse Resp BP 96.6 F L 91 16 130/89 H 01/18/20 13:01 01/18/20 14:36 01/18/20 14:36 01/18/20 14:36 Abdomen: Soft, Non-Distended, Tender - in dependent portion of the panniculus. There is some firmness as well indicative of panniculitis. No evidence of infection at this time. Wound Measurements and Assessment WC - Nurse 1 - General Ulcer Measurement Start: 12/24/19 12:52 Freq: Status: Active Protocol: Activity Type Activity Date Activity User E-Sign Co-Sign Detail Recorded Client Recorded Date Recorded By Document 01/18/20 13:01 [facility] [id number] 01/18/20 13:10 [facility] 01/18/20 13:01 Wound Center Nurse 1 [Ulcer Assessment] #6 LEFT MEDIAL GROIN CLUSTER -Combined with other wound No -Current Size (cm) - Length 0.3 -Current Size (cm) - Width 1.8 -Current Size (cm) - Depth 0.2 -Total Square Cm 0.54 -Photo Taken No -Epithelialization Small 1-33% -Tunneling No -Undermining/Tunneling No -Circular Undermining No -Exudate Amt Small -Exudate Type Serosanguineous -Wound Margin Distinct, Outline Attached -Granulation Amt Large (67-100%) -Granulation Quality Pale,Red -Slough/Fibrin No -Necrosis Amt None Present (0 %) -Texture (Inessa-wound Skin Appearance) Assessed, Scarring -Moisture (Inessa-wound Skin Appearance Assessed ) -Color (Inessa-wound Skin Appearance) Assessed -Temperature (Inessa-wound Skin No Abnormality Appearance) (Pt Warm) -Tenderness on Palpation (Inessa-wound No Skin Appearance) -Ulcer Cleansing Rinsed/ Irrigated with Saline -Foul Odor after Cleansing No -Anesthetic Used 4% Lidocaine Solution #1- LEFT GROIN- POST OP -Combined with other wound No -Current Size (cm) - Length 1.7 -Current Size (cm) - Width 7.8 -Current Size (cm) - Depth 0.2 -Total Square Cm 13.26 -Photo Taken No -Epithelialization None Present -Tunneling No -Undermining/Tunneling No -Circular Undermining No -Exudate Amt Small -Exudate Type Serosanguineous -Wound Margin Distinct, Outline Attached -Granulation Amt Large (67-100%) -Granulation Quality Pale,Red -Slough/Fibrin No -Necrosis Amt None Present (0 %) -Texture (Inessa-wound Skin Appearance) Assessed, Scarring -Moisture (Inessa-wound Skin Appearance Assessed ) -Color (Inessa-wound Skin Appearance) Assessed -Temperature (Inessa-wound Skin No Abnormality Appearance) (Pt Warm) -Tenderness on Palpation (Inessa-wound No Skin Appearance) -Ulcer Cleansing soapy water -Foul Odor after Cleansing No -Anesthetic Used 4% Lidocaine Solution WC - Nurse 2 - General Ulcer CM Notes Start: 12/24/19 12:52 Freq: Status: Active Protocol: Activity Type Activity Date Activity User E-Sign Co-Sign Detail Recorded Client Recorded Date Recorded By Document 01/18/20 14:29 [facility] [id number] 01/18/20 14:32 [facility] 01/18/20 14:29 Wound Center Nurse 2 [Procedure/Treatment] #6 LEFT MEDIAL GROIN CLUSTER -Time 14:29 -Correct Patient Yes -Correct Side, Site, Position Yes -Correct Procedure Yes -Procedure Performed Yes -Type of Procedure Debridement -Clinical Debridement Subcutaneous -Tissue Removed Subcutaneous -Post Debridement (cm) - Length 0.4 -Post Debridement (cm) - Width 1.8 -Post Debridement (cm) - Depth 0.2 -Total Square (Post) (cm) 0.72 -Area of Debridement (cm) - Length 0.4 -Area of Debridement (cm) - Width 1.8 -Total Square (Area) (cm) 0.72 -Tunneling No -Undermining/Tunneling No -Circular Undermining No -Wound/Ulcer Outcome Not Healed -Ulcer Cleansing Rinsed/ Irrigated with Saline -Foul Odor after Cleansing No -Bioengineered Tissue No -Bleeding Controlled with Pressure -Offloading No -Treatment Response Procedure Tolerated Well -Debridement - Subq, 1st 20sq cm Yes #1- LEFT GROIN- POST OP -Time 14:30 -Correct Patient Yes -Correct Side, Site, Position Yes -Correct Procedure Yes -Procedure Performed Yes -Type of Procedure Debridement -Clinical Debridement Subcutaneous -Tissue Removed Subcutaneous -Post Debridement (cm) - Length 1.8 -Post Debridement (cm) - Width 7.8 -Post Debridement (cm) - Depth 0.2 -Total Square (Post) (cm) 14.04 -Area of Debridement (cm) - Length 1.8 -Area of Debridement (cm) - Width 7.8 -Total Square (Area) (cm) 14.04 -Tunneling No -Undermining/Tunneling No -Circular Undermining No -Wound/Ulcer Outcome Not Healed -Ulcer Cleansing Rinsed/ Irrigated with Saline -Foul Odor after Cleansing No -Bioengineered Tissue No -Bleeding Controlled with Pressure -Offloading No -Treatment Response Procedure Tolerated Well -Debridement - Subq, 1st 20sq cm No [See Physician Procedure note for Specifics] Pain Scale: 0-10 Numeric [Pain] -Is Patient Pain Free? Yes WC - Nurse 3 - General Ulcer D/C NN Start: 12/24/19 12:52 Freq: Status: Active Protocol: Activity Type Activity Date Activity User E-Sign Co-Sign Detail Recorded Client Recorded Date Recorded By Document 01/18/20 14:36 DL [id number] 01/18/20 14:41 DL 01/18/20 14:36 Wound Care Nurse 3 [Wound Dressing] #6 LEFT MEDIAL GROIN CLUSTER -Ulcer Cleansing Rinsed/ Irrigated with Saline -Foul Odor after Cleansing No -Primary Dressing Applied Aquacel Extra -Primary Dressing Covered/Secured Secured with with Tape,Other -Other Covering abd -Aquacel Extra 1 #1- LEFT GROIN- POST OP -Ulcer Cleansing Rinsed/ Irrigated with Saline -Foul Odor after Cleansing No -Primary Dressing Applied Aquacel Extra -Primary Dressing Covered/Secured Secured with with Tape,Other -Other Covering abd -Aquacel Extra 0 [Post Procedure Tolerated] -Treatment Response Procedure Tolerated Well Vital Signs [Pulse] -Pulse Rate (60-100) 91 -Pulse Location Monitor [Respirations] -Respiratory Rate (12-18) 16 -Respiratory rate source Observation -Oxygen Delivery Method Room Air [Blood Pressure] -Blood Pressure (90/60-120/80) 130/89 H -Blood Pressure Mean (mm Hg) 102 -Source Monitor -Position Sitting -Blood Pressure Location Right Forearm Pain Scale: 0-10 Numeric [Pain] -Is Patient Pain Free? Yes WC - Visit Discharge [Visit Discharge Information] -Discharge Condition Stable -Ambulatory Status Ambulatory -Transportation Private Auto Debridement Note Post-Debridement Measurements/Treatment WC - Nurse 2 - General Ulcer CM Notes Start: 12/24/19 12:52 Freq: Status: Active Protocol: Activity Type Activity Date Activity User E-Sign Co-Sign Detail Recorded Client Recorded Date Recorded By Document 12/24/19 13:29 MW [id number] 12/24/19 13:31 MW Document 12/31/19 13:59 MW [id number] 12/31/19 14:01 MW Document 01/07/20 13:29 MW [id number] 01/07/20 13:33 MW Document 01/14/20 13:53 MW [id number] 01/14/20 13:55 MW Document 01/18/20 14:29 JF [id number] 01/18/20 14:32 JF 12/24/19 12/31/19 01/07/20 13:29 13:59 13:29 Wound Center Nurse 2 #6 LEFT MEDIAL GROIN CLUSTER -Time 13:30 13:59 13:32 -Correct Patient Yes Yes Yes -Correct Side, Site, Position Yes Yes Yes -Correct Procedure Yes Yes Yes -Procedure Performed Yes Yes Yes -Type of Procedure Debridement Debridement Debridement -Clinical Debridement Subcutaneous Subcutaneous Subcutaneous -Tissue Removed Subcutaneous Subcutaneous Subcutaneous -Post Debridement (cm) - Length 1.0 1.0 0.6 -Post Debridement (cm) - Width 7.5 2.5 1.7 -Post Debridement (cm) - Depth 0.1 0.1 0.1 -Total Square (Post) (cm) 7.50 2.50 1.02 -Area of Debridement (cm) - Length 1.0 1.0 0.6 -Area of Debridement (cm) - Width 7.5 2.5 1.7 -Total Square (Area) (cm) 7.50 2.50 1.02 -Tunneling No No No -Undermining/Tunneling No No No -Circular Undermining No No No -Wound/Ulcer Outcome Not Healed Not Healed Not Healed -Ulcer Cleansing Rinsed/ Rinsed/ Rinsed/ Irrigated with Irrigated with Irrigated with Saline Saline Saline -Foul Odor after Cleansing No No No -Bioengineered Tissue No No No -Bleeding Controlled with Pressure Pressure Pressure -Offloading No No No -Treatment Response Procedure Tolerated Well -Debridement - Subq, 1st 20sq cm Yes Yes Yes #1- LEFT GROIN- POST OP -Time 13:30 14:00 13:32 -Correct Patient Yes Yes Yes -Correct Side, Site, Position Yes Yes Yes -Correct Procedure Yes Yes Yes -Procedure Performed Yes Yes Yes -Type of Procedure Debridement Debridement Debridement -Clinical Debridement Subcutaneous Subcutaneous Subcutaneous -Tissue Removed Subcutaneous Subcutaneous Subcutaneous -Post Debridement (cm) - Length 1.5 1.5 1.6 -Post Debridement (cm) - Width 7.5 8.5 8.0 -Post Debridement (cm) - Depth 0.1 0.1 0.1 -Total Square (Post) (cm) 11.25 12.75 12.80 -Area of Debridement (cm) - Length 1.5 1.5 1.6 -Area of Debridement (cm) - Width 7.5 8.5 8.0 -Total Square (Area) (cm) 11.25 12.75 12.80 -Tunneling No No No -Undermining/Tunneling No No No -Circular Undermining No No No -Wound/Ulcer Outcome Not Healed Not Healed Not Healed -Ulcer Cleansing Rinsed/ Rinsed/ Rinsed/ Irrigated with Irrigated with Irrigated with Saline Saline Saline -Foul Odor after Cleansing No No No -Bioengineered Tissue No No No -Bleeding Controlled with Pressure Pressure Pressure -Offloading No No No -Treatment Response Procedure Procedure Tolerated Well Tolerated Well -Debridement - Subq, 1st 20sq cm No No No Pain Scale: 0-10 Numeric Is Patient Pain Free? Yes Yes Yes 01/14/20 01/18/20 13:53 14:29 Wound Center Nurse 2 #6 LEFT MEDIAL GROIN CLUSTER -Time 13:53 14:29 -Correct Patient Yes Yes -Correct Side, Site, Position Yes Yes -Correct Procedure Yes Yes -Procedure Performed Yes Yes -Type of Procedure Debridement Debridement -Clinical Debridement Subcutaneous Subcutaneous -Tissue Removed Subcutaneous Subcutaneous -Post Debridement (cm) - Length 1.0 0.4 -Post Debridement (cm) - Width 1.3 1.8 -Post Debridement (cm) - Depth 0.1 0.2 -Total Square (Post) (cm) 1.30 0.72 -Area of Debridement (cm) - Length 1.0 0.4 -Area of Debridement (cm) - Width 1.3 1.8 -Total Square (Area) (cm) 1.30 0.72 -Tunneling No No -Undermining/Tunneling No No -Circular Undermining No No -Wound/Ulcer Outcome Not Healed Not Healed -Ulcer Cleansing Rinsed/ Rinsed/ Irrigated with Irrigated with Saline Saline -Foul Odor after Cleansing No No -Bioengineered Tissue No No -Bleeding Controlled with Pressure Pressure -Offloading No No -Treatment Response Procedure Tolerated Well -Debridement - Subq, 1st 20sq cm Yes Yes #1- LEFT GROIN- POST OP -Time 13:53 14:30 -Correct Patient Yes Yes -Correct Side, Site, Position Yes Yes -Correct Procedure Yes Yes -Procedure Performed Yes -Type of Procedure Debridement Debridement -Clinical Debridement Subcutaneous Subcutaneous -Tissue Removed Subcutaneous Subcutaneous -Post Debridement (cm) - Length 1.4 1.8 -Post Debridement (cm) - Width 8.5 7.8 -Post Debridement (cm) - Depth 0.1 0.2 -Total Square (Post) (cm) 11.90 14.04 -Area of Debridement (cm) - Length 1.4 1.8 -Area of Debridement (cm) - Width 8.5 7.8 -Total Square (Area) (cm) 11.90 14.04 -Tunneling No No -Undermining/Tunneling No No -Circular Undermining No No -Wound/Ulcer Outcome Not Healed Not Healed -Ulcer Cleansing Rinsed/ Rinsed/ Irrigated with Irrigated with Saline Saline -Foul Odor after Cleansing No No -Bioengineered Tissue No No -Bleeding Controlled with Pressure Pressure -Offloading No No -Treatment Response Procedure Tolerated Well -Debridement - Subq, 1st 20sq cm No No Pain Scale: 0-10 Numeric Is Patient Pain Free? Yes Yes WC - Nurse 3 - General Ulcer D/C NN Start: 12/24/19 12:52 Freq: Status: Active Protocol: Activity Type Activity Date Activity User E-Sign Co-Sign Detail Recorded Client Recorded Date Recorded By Document 12/24/19 13:42 [facility] [id number] 12/24/19 13:44 [facility] Document 12/31/19 14:10 [facility] [id number] 12/31/19 14:11 BM Document 01/07/20 13:40 MW [id number] 01/07/20 13:42 MW Document 01/18/20 14:36 DL [id number] 01/18/20 14:41 DL 12/24/19 12/31/19 01/07/20 13:42 14:10 13:40 Wound Care Nurse 3 #6 LEFT MEDIAL GROIN CLUSTER -Ulcer Cleansing Rinsed/ Rinsed/ Rinsed/ Irrigated with Irrigated with Irrigated with Saline Saline Saline -Foul Odor after Cleansing No No No -Negative Pressure Wound Therapy N/A -Primary Dressing Applied Other Aquacel Extra Aquacel Extra -Other Dressing melgisorb -Primary Dressing Covered/Secured with Secured with Secured with Dry Gauze, Tape,Other Tape,Other Secured with Tape -Other Covering abd abd -Aquacel Extra 1 1 #1- LEFT GROIN- POST OP -Ulcer Cleansing Rinsed/ Rinsed/ Rinsed/ Irrigated with Irrigated with Irrigated with Saline Saline Saline -Foul Odor after Cleansing No No No -Negative Pressure Wound Therapy N/A -Primary Dressing Applied Other Aquacel Extra -Other Dressing melgisorb AQUACEL EXTRA -Primary Dressing Covered/Secured with Secured with Secured with Dry Gauze, Tape,Other Tape,Other Secured with Tape -Other Covering abd abd -Aquacel Extra 0 Treatment Response Procedure Procedure Procedure Tolerated Well Tolerated Well Tolerated Well Pain Scale: 0-10 Numeric Is Patient Pain Free? Yes Yes Yes Vital Signs Pulse Rate (60-100) Pulse Location Respiratory Rate (12-18) Respiratory rate source Oxygen Delivery Method Blood Pressure (90/60-120/80) Blood Pressure Mean (mm Hg) Source Position Blood Pressure Location Teaching: Wound Center Dressing Your Wound -Person Taught Patient -Teaching Method Discussion, Demonstration -Response to teaching Verbalize understanding WC - Visit Discharge Discharge Condition Stable Stable Stable Ambulatory Status Ambulatory Ambulatory Ambulatory Transportation Private Auto Private Auto Private Auto Accompanied by BROTHER Medication Reconcilliation completed & No provided to patient/care provider Clinical Summary of Care Provided Yes Facility Type Home Health 01/18/20 14:36 Wound Care Nurse 3 #6 LEFT MEDIAL GROIN CLUSTER -Ulcer Cleansing Rinsed/ Irrigated with Saline -Foul Odor after Cleansing No -Negative Pressure Wound Therapy -Primary Dressing Applied Aquacel Extra -Other Dressing -Primary Dressing Covered/Secured with Secured with Tape,Other -Other Covering abd -Aquacel Extra 1 #1- LEFT GROIN- POST OP -Ulcer Cleansing Rinsed/ Irrigated with Saline -Foul Odor after Cleansing No -Negative Pressure Wound Therapy -Primary Dressing Applied Aquacel Extra -Other Dressing -Primary Dressing Covered/Secured with Secured with Tape,Other -Other Covering abd -Aquacel Extra 0 Treatment Response Procedure Tolerated Well Pain Scale: 0-10 Numeric Is Patient Pain Free? Yes Vital Signs Pulse Rate (60-100) 91 Pulse Location Monitor Respiratory Rate (12-18) 16 Respiratory rate source Observation Oxygen Delivery Method Room Air Blood Pressure (90/60-120/80) 130/89 H Blood Pressure Mean (mm Hg) 102 Source Monitor Position Sitting Blood Pressure Location Right Forearm Teaching: Wound Center Dressing Your Wound -Person Taught -Teaching Method -Response to teaching WC - Visit Discharge Discharge Condition Stable Ambulatory Status Ambulatory Transportation Private Auto Accompanied by Medication Reconcilliation completed & provided to patient/care provider Clinical Summary of Care Provided Facility Type Wound debrided: #1 Left inguinal area. Laterality: Left Wound Grade/Stage: 2. Type of Debridement: Excisional debridement Anesthesia Used: 4% Lidocaine Solution Depth: Down to and including healthy tissue, in the subcutaneous layer Percentage of wound debrided: 100 Instrument Used: 5mm curette Tissue Removed: subcutaneous tissue. Severity: Fat Layer Exposed Amount of bleeding with debridement: Mild Bleeding Controlled with: Pressure Patient tolerated procedure well, - - A wound culture was obtained today. - Additional Wound Wound debrided: #6 Left medial inguinal area extending into pubic area. Laterality: Left Wound Grade/Stage: 2. Type of Debridement: Excisional debridement Anesthesia Used: 4% Lidocaine Solution Depth: Down to and including healthy tissue, in the subcutaneous layer Percentage of wound debrided: 100 Instrument Used: 5mm curette Tissue Removed: subcutaneous tissue. Severity: Fat Layer Exposed Amount of bleeding with debridement: Mild Bleeding Controlled with: Pressure Patient tolerated procedure: Patient tolerated procedure well Assessment/Plan Assessment: 1. Nonhealing ulcer left inguinal area with extension into the pubic area. 2. Abdominal panniculus with panniculitis. 3. Ulcer left abdominal wall, healed. 4. status s/p surgical excision of necrotizing fasciitis. 5. Bilateral lower extremity edema. 6. Diabetes mellitus. 7. Morbid obesity. 8. Abdominal wall skin crease intertrigo. Plan: Continue Calcium alginate dressing changes daily. A wound culture was obtained today. A positive culture will necessitate antibiotic therapy. Prealbumin from 02/20/18 was 20.8. Encourage nutritional supplementation with pr otein to help the healing process. Since the ulcers have developed a plateau in the healing process, I recommend operative intervention with surgical preparation left inguinal area with extension into pubic area with excisional debridement nonhealing diabetic ulcer and complex secondary wound closure, possible skin grafting. With his associated abdominal panniculus, the patient may need surgical preparation left abdominal wall with debridement skin, subcutaneous tissue, and fascia for necrotizing diabetic soft tissue infection, possible panniculectomy. Surgery will be done under general anesthesia with a surgical observation overnight stay in the hospital. His last HgbA1c was 6.1 on 02/20/18. He will need it repeated prior to surgery. It needs to be less than 8 before proceeding with surgery. Patient was informed of the risks and complications of the procedure including alternatives to surgery. These were discussed with him personally. He voices understanding and wishes to proceed. Followup Gianni Neil for continued wound care until the surgery. [id number]: [id number] Jessica subq tissue 20 sq cm/< - ICD-10 - L98.492, E65, M79.3, Z87.39, E11.9, I89.0, E66.01, L30.4
== END 2020-01-20 23:59 ==
LOC: WC 13:00
PROVIDERS: Family Provider Family Medicine; PCP Family Medicine; Visit Provider Nurse Practitioner Family
DX: T81.89XA Other complications of procedures, not elsewhere classified, initial encounter (principal); L98.492 Non-pressure chronic ulcer of skin of other sites with fat layer exposed; L30.4 Erythema intertrigo; M79.3 Panniculitis, unspecified; I89.0 Lymphedema, not elsewhere classified; R60.0 Localized edema; E11.40 Type 2 diabetes mellitus with diabetic neuropathy, unspecified; E66.01 Morbid (severe) obesity due to excess calories; Z79.4 Long term (current) use of insulin; Z79.899 Other long term (current) drug therapy; Z87.39 Personal history of other diseases of the musculoskeletal system and connective tissue
CPT/HCPCS: 11042; 87070; 87075; 87077; 87186; 87205

== ENCOUNTER 2020-02-11 09:00 | Outpatient (RCR) | payer MEDICARE, MEDICAID, SELFPAY ==
[2020-01-21 00:27] VITALS: BP 130/89; PULSE 91; RESP 16; TEMP 35.9
[2020-01-28 13:36] VITALS: BP 129/69; PULSE 95; RESP 18; TEMP 36.6
[2020-01-28 16:50] LABS: Absolute Lymphocyte Count 1.14 X10^3/uL (0.83-4.51); Absolute Neutrophil Count 7.3 X10^3/uL (2.0-7.7); Basophil# 0.02 X10^3/uL; Basophil% 0.2 % (0-1); Eosinophil# 0.09 X10^3/uL; Hematocrit 43.9 % (40-54); Hemoglobin 13.8 g/dL (13.0-16.5); Lymphocyte # 1.14 X10^3/ul (4.0); Lymphocyte % 12.7 % (19-41); Mean Corp Hgb Conc 31.4 g/dL (32-36); Mean Corpuscular Hgb 25.8 pg (27.0-32.0); Mean Corpuscular Volume 82.2 fL (80-94); Mean Platelet Vol. 9.8 fl (6.2-12.0); Monocyte% 4.4 % (0-10); NRBC Flagged by Analyzer 0 % (0-5); Neutrophil # 7.26 X10^3/uL (2.7-7.7); Neutrophil % 80.8 % (47-70); Platelet Count 351 K/mm3 (150-450); RBC Distribution Width CV 15.5 % (11.6-14.6); RBC Distribution Width SD 45.9 fl (35.1-43.9); Red Blood Count 5.34 M/mm3 (4.6-6.2)
[2020-01-28 17:12] LABS: Erythrocyte Sedimentation Rate 74 mm/hr (0-15)
[2020-01-28 18:20] LABS: ALB/GLOB Ratio 0.7 RATIO (0.9-2.4); AST(SGOT) 11 U/L (15-37); Alanine Aminotransfer ALT/SGPT 21 U/L (16-61); Albumin, Serum 3.2 g/dL (3.2-5.0); Alkaline Phosphatase 99 U/L (45-117); Anion Gap 7 (5-15); BUN 15 mg/dL (7-18); BUN/Creat Ratio 19.3 RATIO (10-20); Calcium,Total 9.3 mg/dL (8.5-10.1); Chloride 102 mmol/L (98-107); Creatinine, Serum 0.78 mg/dL (0.70-1.30); EST Glomerular Filtration Rate 113 mL/min (>60); Est Glom Filt Rate - Afr Amer 137 mL/min (>60); Globulin 4.7 g/dL (2.2-4.2); Glucose 112 mg/dL (74-106); Potassium 3.7 mmol/L (3.5-5.1); Protein, Total 7.9 g/dL (6.4-8.2); Sodium Level 135 mmol/L (136-145)
[2020-01-28 21:55] LABS: Hemoglobin A1c 10.3 % (3.8-5.6)
--- NOTE | 2020-01-29 08:13 | PCM.WC.PN ---
(1) Non-healing surgical wound Status: Chronic Current Visit: Yes Qualifiers: Code(s): T81.89XA - Other complications of procedures, not elsewhere classified, initial encounter (2) Ulcer of left groin with fat layer exposed Status: Chronic Current Visit: Yes Code(s): L98.492 - Non-pressure chronic ulcer of skin of other sites with fat layer exposed (3) Diabetic neuropathy Status: Chronic Current Visit: No Code(s): E11.40 - Type 2 diabetes mellitus with diabetic neuropathy, unspecified (4) Morbid obesity Status: Chronic Current Visit: No Code(s): E66.01 - Morbid (severe) obesity due to excess calories (5) Non-healing surgical wound of left groin Status: Chronic Current Visit: No Qualifiers: Code(s): T81.89XA - Other complications of procedures, not elsewhere classified, initial encounter Comment: x 3 (6) Skin ulcer of abdominal wall with fat layer exposed Status: Chronic Current Visit: No Code(s): L98.492 - Non-pressure chronic ulcer of skin of other sites with fat layer exposed Comment: left abdominal fold and left medial groin cluster ulcers (7) Type 2 diabetes mellitus Status: Chronic Current Visit: No Qualifiers: Code(s): E11.9 - Type 2 diabetes mellitus without complications Type of Wound Date of Service: 01/28/20 Chief Complaint: Nonhealing diabetic ulcer left inguinal area with extension into the pubic area and left abdominal area with associated panniculus. History of Wound: 49-year-old white male has been coming to the [facility] for nonhealing diabetic ulcers left inguinal area with extension into the pubic area and left abdominal area with associated panniculus. These ulcerations were the result of surgical excision of necrotizing fasciitis in April,. He is a past medical history of diabetes mellitus, gout, diabetic neuropathy, schizophrenia and bilateral lymphedema. He has been using Calcium alginate dressing changes daily with improvement. He denies any fever. He had a wound culture done on 09/11/18 which showed Gram positive chantel and Coag negative Staph. I initially evaluated him in September, and surgery was recommended. He wanted to continue with wound care and now wants to proceed with surgical intervention. Progress of Wound: 11/12/2019?more maceration noted today and heat, patient now has 3 groin ulcers with an additional lateral and medial ulceration as well. Given the excess moisture will order a super Absorbent dressing to be utilized over top of his current wound care plan. 11/27/2019?lateral ulcer has healed, left groin ulcer and medial ulcer continues with maceration, otherwise no further concerns. 12/10/2019?no new concerns, doing well with dressings, still having issues with moisture. 12/24/2019?no new concerns, doing well with dressings, still having issues with moisture and very slow wound healing. Will refer to plastic surgery for another consultation given the fact that he is failed multiple wound treatments and also his wounds have had delayed healing over the past year. 12/31/19-no new concerns, patient has a pending consult with plastic surgery due to his multiple failed wound treatments. 01/07/20-no new concerns, patient has a pending consult with plastic surgery due to his multiple failed wound treatments. 01/28/2020?patient had a consult with plastic surgery who will be considering surgery at the end of this month, recommended baseline lab work to be done. He also did have cultures done and is currently being treated with an antibiotic. Patient is unsure what it is called. - Physical Exam Vital Signs Temp Pulse Resp BP 97.8 F 95 18 129/69 H 01/28/20 13:36 01/28/20 13:36 01/28/20 13:36 01/28/20 13:36 General: Alert, Oriented x3, Cooperative, No apparent distress HEENT: Atraumatic Oral: Moist Mucosa Neck: Supple, No JVD Lungs: Clear to auscultation, Normal air movement, No rhonchi, No wheeze, No rales Cardiovascular: Regular rate Abdomen: Bowel Sounds Present, Soft, Non Tender, Obese Extremities: No clubbing, No cyanosis Skin: Ulcer/ Wound - See nursing documentation, slough and devitalized tissue present, no signs of obvious infection at this time Wound Measurements and Assessment WC - Nurse 1 - General Ulcer Measurement Start: 01/28/20 13:36 Freq: Status: Active Protocol: Activity Type Activity Date Activity User E-Sign Co-Sign Detail Recorded Client Recorded Date Recorded By Document 01/28/20 13:36 RB [id number] 01/28/20 13:39 RB 01/28/20 13:36 Wound Center Nurse 1 [Ulcer Assessment] #6 LEFT MEDIAL GROIN CLUSTER -Combined with other wound No -Current Size (cm) - Length 2 -Current Size (cm) - Width 0.5 -Current Size (cm) - Depth 0.2 -Total Square Cm 1.0 -Tunneling No -Undermining/Tunneling No -Circular Undermining No -Exudate Amt Medium -Exudate Type Serosanguineous -Wound Margin Thickened & Rolled Under -Granulation Amt Large (67-100%) -Granulation Quality [place],Red -Slough/Fibrin Yes -Necrosis Amt Small (1-33%) -Necrotic Tissue Type Adherent Slough -Structure Exposed N/A -Texture (Inessa-wound Skin Appearance) Assessed, Excoriation -Moisture (Inessa-wound Skin Appearance Assessed, ) Maceration -Color (Inessa-wound Skin Appearance) Assessed -Temperature (Inessa-wound Skin No Abnormality Appearance) (Pt Warm) -Tenderness on Palpation (Inessa-wound No Skin Appearance) -Ulcer Cleansing Wound Cleanser -Foul Odor after Cleansing No -Anesthetic Used 4% Lidocaine Solution #1- LEFT GROIN- POST OP -Combined with other wound No -Current Size (cm) - Length 1 -Current Size (cm) - Width 8.8 -Current Size (cm) - Depth 0.2 -Total Square Cm 8.8 -Tunneling No -Undermining/Tunneling No -Circular Undermining No -Exudate Amt Medium -Exudate Type Serosanguineous -Wound Margin Thickened & Rolled Under -Granulation Amt Large (67-100%) -Granulation Quality [place],Red -Slough/Fibrin Yes -Necrosis Amt Small (1-33%) -Necrotic Tissue Type Adherent Slough -Structure Exposed N/A -Texture (Inessa-wound Skin Appearance) Excoriation -Moisture (Inessa-wound Skin Appearance Maceration ) -Color (Inessa-wound Skin Appearance) Assessed -Temperature (Inessa-wound Skin No Abnormality Appearance) (Pt Warm) -Tenderness on Palpation (Inessa-wound No Skin Appearance) -Ulcer Cleansing Wound Cleanser -Foul Odor after Cleansing No -Anesthetic Used 4% Lidocaine Solution WC - Nurse 2 - General Ulcer CM Notes Start: 01/28/20 13:36 Freq: Status: Active Protocol: Activity Type Activity Date Activity User E-Sign Co-Sign Detail Recorded Client Recorded Date Recorded By Document 01/28/20 14:03 MW [id number] 01/28/20 14:05 MW 01/28/20 14:03 Wound Center Nurse 2 [Procedure/Treatment] #6 LEFT MEDIAL GROIN CLUSTER -Time 14:04 -Correct Patient Yes -Correct Side, Site, Position Yes -Correct Procedure Yes -Procedure Performed Yes -Type of Procedure Debridement -Clinical Debridement Subcutaneous -Tissue Removed Subcutaneous -Post Debridement (cm) - Length 0.8 -Post Debridement (cm) - Width 1.5 -Post Debridement (cm) - Depth 0.1 -Total Square (Post) (cm) 1.20 -Area of Debridement (cm) - Length 0.8 -Area of Debridement (cm) - Width 1.5 -Total Square (Area) (cm) 1.20 -Tunneling No -Undermining/Tunneling No -Circular Undermining No -Wound/Ulcer Outcome Not Healed -Ulcer Cleansing Rinsed/ Irrigated with Saline -Foul Odor after Cleansing No -Bioengineered Tissue No -Bleeding Controlled with Pressure -Offloading No -Debridement - Subq, 1st 20sq cm Yes #1- LEFT GROIN- POST OP -Time 14:04 -Correct Patient Yes -Correct Side, Site, Position Yes -Correct Procedure Yes -Procedure Performed Yes -Type of Procedure Debridement -Clinical Debridement Subcutaneous -Tissue Removed Subcutaneous -Post Debridement (cm) - Length 1.5 -Post Debridement (cm) - Width 8.0 -Post Debridement (cm) - Depth 0.1 -Total Square (Post) (cm) 12.00 -Area of Debridement (cm) - Length 1.5 -Area of Debridement (cm) - Width 8.0 -Total Square (Area) (cm) 12.00 -Tunneling No -Undermining/Tunneling No -Circular Undermining No -Wound/Ulcer Outcome Not Healed -Ulcer Cleansing Rinsed/ Irrigated with Saline -Foul Odor after Cleansing No -Bioengineered Tissue No -Bleeding Controlled with Pressure -Offloading No -Debridement - Subq, 1st 20sq cm No [See Physician Procedure note for Specifics] Pain Scale: 0-10 Numeric [Pain] -Is Patient Pain Free? Yes Neurological: Neuro grossly intact Psych/Mental Status: Normal Affect, Appropriate, Alert and oriented to time, place, person, mood and affect Debridement Note Post-Debridement Measurements/Treatment WC - Nurse 2 - General Ulcer CM Notes Start: 01/28/20 13:36 Freq: Status: Active Protocol: Activity Type Activity Date Activity User E-Sign Co-Sign Detail Recorded Client Recorded Date Recorded By Document 01/28/20 14:03 MW [id number] 01/28/20 14:05 MW 01/28/20 14:03 Wound Center Nurse 2 #6 LEFT MEDIAL GROIN CLUSTER -Time 14:04 -Correct Patient Yes -Correct Side, Site, Position Yes -Correct Procedure Yes -Procedure Performed Yes -Type of Procedure Debridement -Clinical Debridement Subcutaneous -Tissue Removed Subcutaneous -Post Debridement (cm) - Length 0.8 -Post Debridement (cm) - Width 1.5 -Post Debridement (cm) - Depth 0.1 -Total Square (Post) (cm) 1.20 -Area of Debridement (cm) - Length 0.8 -Area of Debridement (cm) - Width 1.5 -Total Square (Area) (cm) 1.20 -Tunneling No -Undermining/Tunneling No -Circular Undermining No -Wound/Ulcer Outcome Not Healed -Ulcer Cleansing Rinsed/ Irrigated with Saline -Foul Odor after Cleansing No -Bioengineered Tissue No -Bleeding Controlled with Pressure -Offloading No -Debridement - Subq, 1st 20sq cm Yes #1- LEFT GROIN- POST OP -Time 14:04 -Correct Patient Yes -Correct Side, Site, Position Yes -Correct Procedure Yes -Procedure Performed Yes -Type of Procedure Debridement -Clinical Debridement Subcutaneous -Tissue Removed Subcutaneous -Post Debridement (cm) - Length 1.5 -Post Debridement (cm) - Width 8.0 -Post Debridement (cm) - Depth 0.1 -Total Square (Post) (cm) 12.00 -Area of Debridement (cm) - Length 1.5 -Area of Debridement (cm) - Width 8.0 -Total Square (Area) (cm) 12.00 -Tunneling No -Undermining/Tunneling No -Circular Undermining No -Wound/Ulcer Outcome Not Healed -Ulcer Cleansing Rinsed/ Irrigated with Saline -Foul Odor after Cleansing No -Bioengineered Tissue No -Bleeding Controlled with Pressure -Offloading No -Debridement - Subq, 1st 20sq cm No Pain Scale: 0-10 Numeric Is Patient Pain Free? Yes Wound debrided: left groin ulcers Laterality: Left Type of Debridement: Excisional debridement Anesthesia Used: 5% Lidocaine Gel Depth: in the subcutaneous layer Percentage of wound debrided: 100 Instrument Used: 5mm curette Tissue Removed: slough ad devitalized tissue Severity: Fat Layer Exposed Amount of bleeding with debridement: Mild Bleeding Controlled with: Pressure Patient tolerated procedure well Assessment/Plan Active Problems Ulcer of left groin with fat layer exposed (Chronic) Non-healing surgical wound (Chronic) Assessment: 1. Nonhealing ulcer left inguinal area with extension into the pubic area. 2. Abdominal panniculus with panniculitis. 3. Ulcer left abdominal wall, healed. 4. status s/p surgical excision of necrotizing fasciitis. 5. Bilateral lower extremity edema. 6. Diabetes mellitus. 7. Morbid obesity. 8. Abdominal wall skin crease intertrigo. Plan: The patient was seen and examined at the wound center today and was updated on the plan of care. A subcutaneous debridement was performed today. The patient tolerated the procedure well. The patients wound care will consist of:Application of Aquacell silver apply daily and PRN.. Wound cultures were collected Prior and patient currently tolerating antibiotic therapy. Baseline bloodwork ordered Including prealbumin and A1c, A1c was greater than 10 and therefore patient was referred back to his primary care. He was recently consulted by plastic surgery who recommended excision surgically, however this will have to be on hold until his A1c has improved. Patient educated on the importance of diet on wound healing and instructed to increase protein and vitamin C intake. Patient verbalized understanding. Patient will follow up at wound healing center in one week or sooner if needed. This note was generated with [employer] dictation software. It may contain incorrect words, spelling, and punctuation that were not noted in checking the note before signing. [id number]: [id number] Jessica subq tissue 20 sq cm/<
[2020-02-04 14:13] VITALS: BP 144/81; PULSE 82; RESP 18; TEMP 36.1
--- NOTE | 2020-02-04 16:35 | PN.PCM_ITS ---
(1) Non-healing surgical wound Status: Chronic Qualifiers: Code(s): T81.89XA - Other complications of procedures, not elsewhere classified, initial encounter Comment: x 2 left medial and lateral groin (2) Ulcer of left groin with fat layer exposed Status: Chronic Code(s): L98.492 - Non-pressure chronic ulcer of skin of other sites with fat layer exposed (3) Diabetic neuropathy Status: Chronic Code(s): E11.40 - Type 2 diabetes mellitus with diabetic neuropathy, unspecified (4) Morbid obesity Status: Chronic Code(s): E66.01 - Morbid (severe) obesity due to excess calories (5) Non-healing surgical wound of left groin Status: Chronic Qualifiers: Code(s): T81.89XA - Other complications of procedures, not elsewhere classified, initial encounter Comment: x 3 (6) Skin ulcer of abdominal wall with fat layer exposed Status: Chronic Code(s): L98.492 - Non-pressure chronic ulcer of skin of other sites with fat layer exposed Comment: left abdominal fold and left medial groin cluster ulcers (7) Type 2 diabetes mellitus Status: Chronic Qualifiers: Code(s): E11.9 - Type 2 diabetes mellitus without complications Type of Wound Date of Service: 02/04/20 Chief Complaint: Nonhealing diabetic ulcer left inguinal area with extension into the pubic area and left abdominal area with associated panniculus. History of Wound: 49-year-old white male has been coming to the Wound Center for nonhealing diabetic ulcers left inguinal area with extension into the pubic area and left abdominal area with associated panniculus. These ulcerations were the result of surgical excision of necrotizing fasciitis in April,. He is a past medical history of diabetes mellitus, gout, diabetic neuropathy, schizophrenia and bilateral lymphedema. He has been using Calcium alginate dressing changes daily with improvement. He denies any fever. He had a wound culture done on 09/11/18 which showed Gram positive chantel and Coag negative Staph. I initially evaluated him in September, and surgery was recommended. He wanted to continue with wound care and now wants to proceed with surgical intervention. Progress of Wound: 11/12/2019?more maceration noted today and heat, patient now has 3 groin ulcers with an additional lateral and medial ulceration as well. Given the excess moisture will order a super Absorbent dressing to be utilized over top of his current wound care plan. 11/27/2019?lateral ulcer has healed, left groin ulcer and medial ulcer continues with maceration, otherwise no further concerns. 12/10/2019?no new concerns, doing well with dressings, still having issues with moisture. 12/24/2019?no new concerns, doing well with dressings, still having issues with moisture and very slow wound healing. Will refer to plastic surgery for another consultation given the fact that he is failed multiple wound treatments and also his wounds have had delayed healing over the past year. 12/31/19-no new concerns, patient has a pending consult with plastic surgery due to his multiple failed wound treatments. 01/07/20-no new concerns, patient has a pending consult with plastic surgery due to his multiple failed wound treatments. 01/28/2020?patient had a consult with plastic surgery who will be considering surgery at the end of this month, recommended baseline lab work to be done. He also did have cultures done and is currently being treated with an antibiotic. Patient is unsure what it is called. 02/04/2020?patient tolerating antibiotics well, was consulted with plastic surgery who recommended surgical excision, however after review of lab work, patient's diabetes is not adequately controlled and his prealbumin is low, he followed up with his primary care and had his diabetic medications adjusted, he is willing to follow-up with endocrinology as well. Referral placed today. He also is trying to increase his protein intake. Given the significant delayed healing and fact that there is now 2 separate wounds, and advanced skin substitute will be applied for. - Physical Exam Vital Signs Temp Pulse Resp BP 97 F L 82 18 144/81 H 02/04/20 14:13 02/04/20 14:13 02/04/20 14:13 02/04/20 14:13 General: Alert, Oriented x3, Cooperative, No apparent distress HEENT: Atraumatic Oral: Moist Mucosa Neck: Supple Lungs: Clear to auscultation, Normal air movement Cardiovascular: Regular rate, Regular Rhythm Abdomen: Soft, Non Tender Extremities: No clubbing, No cyanosis, No edema Skin: Ulcer/ Wound - See nursing documentation, slough and devitalized tissue present, no signs of infection at this time Wound Measurements and Assessment WC - Nurse 1 - General Ulcer Measurement Start: 01/28/20 13:36 Freq: Status: Active Protocol: Activity Type Activity Date Activity User E-Sign Co-Sign Detail Recorded Client Recorded Date Recorded By Document 02/04/20 14:13 RB [id number] 02/04/20 14:21 RB 02/04/20 14:13 Wound Center Nurse 1 [Ulcer Assessment] #6 LEFT MEDIAL GROIN CLUSTER -Combined with other wound No -Current Size (cm) - Length 0.4 -Current Size (cm) - Width 1.3 -Current Size (cm) - Depth 0.2 -Total Square Cm 0.52 -Tunneling No -Undermining/Tunneling No -Circular Undermining No -Exudate Amt Medium -Exudate Type Serosanguineous -Wound Margin Thickened & Rolled Under -Granulation Amt Medium (34-66%) -Granulation Quality [place],Red -Slough/Fibrin Yes -Necrosis Amt Small (1-33%) -Necrotic Tissue Type Adherent Slough -Structure Exposed N/A -Texture (Inessa-wound Skin Appearance) Assessed -Moisture (Inessa-wound Skin Appearance Assessed, ) Maceration -Color (Inessa-wound Skin Appearance) Assessed -Temperature (Inessa-wound Skin No Abnormality Appearance) (Pt Warm) -Tenderness on Palpation (Inessa-wound No Skin Appearance) -Ulcer Cleansing Wound Cleanser -Foul Odor after Cleansing No -Anesthetic Used 4% Lidocaine Solution #1- LEFT GROIN- POST OP -Combined with other wound No -Current Size (cm) - Length 1 -Current Size (cm) - Width 8 -Current Size (cm) - Depth 0.2 -Total Square Cm 8 -Tunneling No -Undermining/Tunneling No -Circular Undermining No -Exudate Amt Medium -Exudate Type Serosanguineous -Wound Margin Thickened & Rolled Under -Granulation Amt Medium (34-66%) -Granulation Quality [place],Red -Slough/Fibrin Yes -Necrosis Amt Small (1-33%) -Necrotic Tissue Type Adherent Slough -Structure Exposed N/A -Texture (Inessa-wound Skin Appearance) Assessed -Moisture (Inessa-wound Skin Appearance Maceration ) -Color (Inessa-wound Skin Appearance) Assessed -Temperature (Inessa-wound Skin No Abnormality Appearance) (Pt Warm) -Tenderness on Palpation (Inessa-wound No Skin Appearance) -Ulcer Cleansing Wound Cleanser -Foul Odor after Cleansing No -Anesthetic Used 4% Lidocaine Solution WC - Nurse 2 - General Ulcer CM Notes Start: 01/28/20 13:36 Freq: Status: Active Protocol: Activity Type Activity Date Activity User E-Sign Co-Sign Detail Recorded Client Recorded Date Recorded By Document 02/04/20 14:25 MW [id number] 02/04/20 14:30 MW 02/04/20 14:25 Wound Center Nurse 2 [Procedure/Treatment] #6 LEFT MEDIAL GROIN CLUSTER -Time 14:27 -Correct Patient Yes -Correct Side, Site, Position Yes -Correct Procedure Yes -Procedure Performed Yes -Type of Procedure Debridement -Clinical Debridement Subcutaneous -Tissue Removed Subcutaneous -Post Debridement (cm) - Length 0.6 -Post Debridement (cm) - Width 2.0 -Post Debridement (cm) - Depth 0.1 -Total Square (Post) (cm) 1.20 -Area of Debridement (cm) - Length 0.6 -Area of Debridement (cm) - Width 2.0 -Total Square (Area) (cm) 1.20 -Tunneling No -Undermining/Tunneling No -Circular Undermining No -Wound/Ulcer Outcome Not Healed -Ulcer Cleansing Rinsed/ Irrigated with Saline -Foul Odor after Cleansing No -Bioengineered Tissue No -Bleeding Controlled with Pressure -Offloading No -Treatment Response Procedure Tolerated Well -Debridement - Subq, 1st 20sq cm Yes #1- LEFT GROIN- POST OP -Time 14:28 -Correct Patient Yes -Correct Side, Site, Position Yes -Correct Procedure Yes -Procedure Performed Yes -Type of Procedure Debridement -Clinical Debridement Subcutaneous -Tissue Removed Subcutaneous -Post Debridement (cm) - Length 1.5 -Post Debridement (cm) - Width 8.5 -Post Debridement (cm) - Depth 0.1 -Total Square (Post) (cm) 12.75 -Area of Debridement (cm) - Length 1.5 -Area of Debridement (cm) - Width 8.5 -Total Square (Area) (cm) 12.75 -Tunneling No -Undermining/Tunneling No -Circular Undermining No -Wound/Ulcer Outcome Not Healed -Ulcer Cleansing Rinsed/ Irrigated with Saline -Foul Odor after Cleansing No -Bioengineered Tissue No -Bleeding Controlled with Pressure -Offloading No -Treatment Response Procedure Tolerated Well -Debridement - Subq, 1st 20sq cm No [See Physician Procedure note for Specifics] Pain Scale: 0-10 Numeric [Pain] -Is Patient Pain Free? Yes WC - Nurse 3 - General Ulcer D/C NN Start: 01/28/20 13:36 Freq: Status: Active Protocol: Activity Type Activity Date Activity User E-Sign Co-Sign Detail Recorded Client Recorded Date Recorded By Document 02/04/20 14:35 MW [id number] 02/04/20 14:36 MW 02/04/20 14:35 Wound Care Nurse 3 [Wound Dressing] #6 LEFT MEDIAL GROIN CLUSTER -Ulcer Cleansing Rinsed/ Irrigated with Saline -Foul Odor after Cleansing No -Negative Pressure Wound Therapy N/A -Primary Dressing Applied Aquacel AG 4x4 -Primary Dressing Covered/Secured Dry Gauze, with Secured with Tape -Aquacel AG 4x4 1 #1- LEFT GROIN- POST OP -Ulcer Cleansing Rinsed/ Irrigated with Saline -Foul Odor after Cleansing No -Negative Pressure Wound Therapy N/A -Other Dressing aquacel ag -Primary Dressing Covered/Secured Dry Gauze, with Secured with Tape [Post Procedure Tolerated] -Treatment Response Procedure Tolerated Well Teaching: Wound Center [Wound Center Education] (Items with an * have Printed Materials Available- Please identify what is given to patient under the Teaching materials given to patient and caregiver Section. Dressing Your Wound -Person Taught Patient -Teaching Method Discussion -Response to teaching Verbalize understanding - Visit Discharge [Visit Discharge Information] -Discharge Condition Stable -Ambulatory Status Ambulatory -Transportation Private Auto -Accompanied by brother -Medication Reconcilliation completed No & provided to patient/care provider -Clinical Summary of Care Provided Yes Musculoskeletal: No Muscle Wasting Neurological: Neuro grossly intact Psych/Mental Status: Normal Affect, Appropriate, Alert and oriented to time, place, person, mood and affect Debridement Note Post-Debridement Measurements/Treatment - Nurse 2 - General Ulcer CM Notes Start: 01/28/20 13:36 Freq: Status: Active Protocol: Activity Type Activity Date Activity User E-Sign Co-Sign Detail Recorded Client Recorded Date Recorded By Document 01/28/20 14:03 MW [id number] 01/28/20 14:05 MW Document 02/04/20 14:25 MW [id number] 02/04/20 14:30 MW 01/28/20 02/04/20 14:03 14:25 Wound Center Nurse 2 #6 LEFT MEDIAL GROIN CLUSTER -Time 14:04 14:27 -Correct Patient Yes Yes -Correct Side, Site, Position Yes Yes -Correct Procedure Yes Yes -Procedure Performed Yes Yes -Type of Procedure Debridement Debridement -Clinical Debridement Subcutaneous Subcutaneous -Tissue Removed Subcutaneous Subcutaneous -Post Debridement (cm) - Length 0.8 0.6 -Post Debridement (cm) - Width 1.5 2.0 -Post Debridement (cm) - Depth 0.1 0.1 -Total Square (Post) (cm) 1.20 1.20 -Area of Debridement (cm) - Length 0.8 0.6 -Area of Debridement (cm) - Width 1.5 2.0 -Total Square (Area) (cm) 1.20 1.20 -Tunneling No No -Undermining/Tunneling No No -Circular Undermining No No -Wound/Ulcer Outcome Not Healed Not Healed -Ulcer Cleansing Rinsed/ Rinsed/ Irrigated with Irrigated with Saline Saline -Foul Odor after Cleansing No No -Bioengineered Tissue No No -Bleeding Controlled with Pressure Pressure -Offloading No No -Treatment Response Procedure Tolerated Well -Debridement - Subq, 1st 20sq cm Yes Yes #1- LEFT GROIN- POST OP -Time 14:04 14:28 -Correct Patient Yes Yes -Correct Side, Site, Position Yes Yes -Correct Procedure Yes Yes -Procedure Performed Yes Yes -Type of Procedure Debridement Debridement -Clinical Debridement Subcutaneous Subcutaneous -Tissue Removed Subcutaneous Subcutaneous -Post Debridement (cm) - Length 1.5 1.5 -Post Debridement (cm) - Width 8.0 8.5 -Post Debridement (cm) - Depth 0.1 0.1 -Total Square (Post) (cm) 12.00 12.75 -Area of Debridement (cm) - Length 1.5 1.5 -Area of Debridement (cm) - Width 8.0 8.5 -Total Square (Area) (cm) 12.00 12.75 -Tunneling No No -Undermining/Tunneling No No -Circular Undermining No No -Wound/Ulcer Outcome Not Healed Not Healed -Ulcer Cleansing Rinsed/ Rinsed/ Irrigated with Irrigated with Saline Saline -Foul Odor after Cleansing No No -Bioengineered Tissue No No -Bleeding Controlled with Pressure Pressure -Offloading No No -Treatment Response Procedure Tolerated Well -Debridement - Subq, 1st 20sq cm No No Pain Scale: 0-10 Numeric Is Patient Pain Free? Yes Yes WC - Nurse 3 - General Ulcer D/C NN Start: 01/28/20 13:36 Freq: Status: Active Protocol: Activity Type Activity Date Activity User E-Sign Co-Sign Detail Recorded Client Recorded Date Recorded By Document 02/04/20 14:35 MW [id number] 02/04/20 14:36 MW 02/04/20 14:35 Wound Care Nurse 3 #6 LEFT MEDIAL GROIN CLUSTER -Ulcer Cleansing Rinsed/ Irrigated with Saline -Foul Odor after Cleansing No -Negative Pressure Wound Therapy N/A -Primary Dressing Applied Aquacel AG 4x4 -Primary Dressing Covered/Secured with Dry Gauze, Secured with Tape -Aquacel AG 4x4 1 #1- LEFT GROIN- POST OP -Ulcer Cleansing Rinsed/ Irrigated with Saline -Foul Odor after Cleansing No -Negative Pressure Wound Therapy N/A -Other Dressing aquacel ag -Primary Dressing Covered/Secured with Dry Gauze, Secured with Tape Treatment Response Procedure Tolerated Well Teaching: Wound Center Dressing Your Wound -Person Taught Patient -Teaching Method Discussion -Response to teaching Verbalize understanding WC - Visit Discharge Discharge Condition Stable Ambulatory Status Ambulatory Transportation Private Auto Accompanied by brother Medication Reconcilliation completed & No provided to patient/care provider Clinical Summary of Care Provided Yes Wound debrided: Left medial and lateral groin ulcers Laterality: Left Type of Debridement: Excisional debridement Anesthesia Used: 5% Lidocaine Gel Depth: in the subcutaneous layer Percentage of wound debrided: 100 Instrument Used: 5mm curette Tissue Removed: Slough and devitalized tissue Severity: Fat Layer Exposed Amount of bleeding with debridement: Mild Bleeding Controlled with: Pressure Patient tolerated procedure well Assessment/Plan Assessment: 1. Nonhealing ulcer left inguinal area with extension into the pubic area. 2. Abdominal panniculus with panniculitis. 3. Ulcer left abdominal wall, healed. 4. status s/p surgical excision of necrotizing fasciitis. 5. Bilateral lower extremity edema. 6. Diabetes mellitus. 7. Morbid obesity. 8. Abdominal wall skin crease intertrigo. Plan: The patient was seen and examined at the wound center today and was updated on the plan of care. A subcutaneous debridement was performed today. The patient tolerated the procedure well. The patients wound care will consist of:Application of Aquacell silver apply daily and PRN.. Wound cultures were collected Prior and patient currently tolerating antibiotic therapy. Baseline bloodwork ordered Including prealbumin and A1c, A1c was greater than 10 and ther efore patient was referred back to his primary care. He was recently consulted by plastic surgery who recommended excision surgically, however this will have to be on hold until his A1c has improved. Patient educated on the importance of diet on wound healing and instructed to increase protein and vitamin C intake. Patient verbalized understanding. Patient will follow up at wound healing center in one week or sooner if needed. Given the delayed wound healing, will apply for use of advanced skin substitute. This note was generated with [employer] dictation software. It may contain incorrect words, spelling, and punctuation that were not noted in checking the note before signing. [id number]: [id number] Jessica subq tissue 20 sq cm/<
[2020-02-11 09:14] VITALS: BP 112/57; PULSE 92; RESP 18; TEMP 35.4
[2020-02-11 09:44] VITALS: BP 120/60; PULSE 90; RESP 20
--- NOTE | 2020-02-11 12:41 | PN.PCM_ITS ---
(1) Ulcer of left groin with fat layer exposed Status: Chronic Code(s): L98.492 - Non-pressure chronic ulcer of skin of other sites with fat layer exposed (2) Non-healing surgical wound of left groin Status: Chronic Qualifiers: Code(s): T81.89XA - Other complications of procedures, not elsewhere classified, initial encounter Comment: x 3 (3) Skin ulcer of abdominal wall with fat layer exposed Status: Chronic Code(s): L98.492 - Non-pressure chronic ulcer of skin of other sites with fat layer exposed Comment: left abdominal fold and left medial groin cluster ulcers (4) Type 2 diabetes mellitus Status: Chronic Qualifiers: Code(s): E11.9 - Type 2 diabetes mellitus without complications Type of Wound Date of Service: 02/11/20 Chief Complaint: Nonhealing wound status post surgical excision of necrotizing fasciitis left groin History of Wound: 46-year-old white male who presents to the wound healing center today with complaint of left groin ulceration status post surgical excision of necrotizing fasciitis. He is a past medical history which is significant for that of type 2 diabetes mellitus, gout, diabetic neuropathy, schizophrenia, bilateral lymphedema, and schizophrenia. The patient states that what initially started as a pimple in his left groin progressed to necrotizing fasciitis and he had to have this surgically debrided in April 2017. He was admitted to [facility] for 2 weeks and then [facility] for 6 weeks afterwards. He states that the groin ulcer which extends to his left lower abdomen has been slowly improving and he has been doing daily Aquacel AG dressings with an ABD for the drainage. He does state that he has had 3 wound vacs in the past which were unable to be utilized due to the location of his wound. He denies any foul-smelling discharge or systemic signs of infection at this time. He is seen today as a courtesy visit for Gianni Neil CNP. He is tolerating dressings and denies any increase in drainage. He has been also using sweat beater to his groin area to prevent moisture. The patient otherwise denies any fever, chills, nausea, vomiting, shortness of breath, chest pain or pressure, palpitations, orthopnea, syncope or presyncopal episodes. Progress of Wound: New concerns at this time. Scheduled surgery was put on hold due to poor diabetes control. He states that he has been monitoring his diet closely and his numbers are better. - Physical Exam Vital Signs Temp Pulse Resp BP 95.7 F L 90 20 H 120/60 02/11/20 09:14 02/11/20 09:44 02/11/20 09:44 02/11/20 09:44 General: Alert, Oriented x3, Cooperative, No apparent distress HEENT: Atraumatic, Normocephalic Oral: Moist Mucosa Neck: Supple Lungs: Normal air movement Abdomen: Non Tender, Obese Extremities: No cyanosis Skin: Ulcer/ Wound Wound Measurements and Assessment WC - Nurse 1 - General Ulcer Measurement Start: 01/28/20 13:36 Freq: Status: Active Protocol: Activity Type Activity Date Activity User E-Sign Co-Sign Detail Recorded Client Recorded Date Recorded By Document 02/11/20 09:14 RB [id number] 02/11/20 09:17 RB 02/11/20 09:14 Wound Center Nurse 1 [Ulcer Assessment] #6 LEFT MEDIAL GROIN CLUSTER -Combined with other wound No -Current Size (cm) - Length 0.5 -Current Size (cm) - Width 2.3 -Current Size (cm) - Depth 0.2 -Total Square Cm 1.15 -Tunneling No -Undermining/Tunneling No -Circular Undermining No -Exudate Amt Medium -Exudate Type Serosanguineous -Wound Margin Thickened & Rolled Under -Granulation Amt Medium (34-66%) -Granulation Quality [place] -Slough/Fibrin Yes -Necrosis Amt Small (1-33%) -Structure Exposed N/A -Texture (Inessa-wound Skin Appearance) Assessed -Moisture (Inessa-wound Skin Appearance Maceration ) -Color (Inessa-wound Skin Appearance) Assessed -Temperature (Inessa-wound Skin No Abnormality Appearance) (Pt Warm) -Tenderness on Palpation (Inessa-wound No Skin Appearance) -Ulcer Cleansing Wound Cleanser -Foul Odor after Cleansing No -Anesthetic Used 4% Lidocaine Solution #1- LEFT GROIN- POST OP -Combined with other wound No -Current Size (cm) - Length 1.2 -Current Size (cm) - Width 8 -Current Size (cm) - Depth 0.2 -Total Square Cm 9.6 -Tunneling No -Undermining/Tunneling No -Circular Undermining No -Exudate Amt Medium -Exudate Type Serosanguineous -Wound Margin Thickened & Rolled Under -Granulation Amt Medium (34-66%) -Granulation Quality [place] -Slough/Fibrin Yes -Necrosis Amt Small (1-33%) -Necrotic Tissue Type Adherent Slough -Structure Exposed N/A -Texture (Inessa-wound Skin Appearance) Assessed -Moisture (Inessa-wound Skin Appearance Maceration ) -Color (Inessa-wound Skin Appearance) Assessed -Temperature (Inessa-wound Skin No Abnormality Appearance) (Pt Warm) -Tenderness on Palpation (Inessa-wound No Skin Appearance) -Ulcer Cleansing Wound Cleanser -Foul Odor after Cleansing No -Anesthetic Used 4% Lidocaine Solution WC - Nurse 2 - General Ulcer CM Notes Start: 01/28/20 13:36 Freq: Status: Active Protocol: Activity Type Activity Date Activity User E-Sign Co-Sign Detail Recorded Client Recorded Date Recorded By Document 02/11/20 09:32 MW [id number] 02/11/20 09:37 MW 02/11/20 09:32 Wound Center Nurse 2 [Procedure/Treatment] #6 LEFT MEDIAL GROIN CLUSTER -Time 09:36 -Correct Patient Yes -Correct Side, Site, Position Yes -Correct Procedure Yes -Procedure Performed Yes -Type of Procedure Debridement -Clinical Debridement Subcutaneous -Tissue Removed Subcutaneous -Post Debridement (cm) - Length 0.5 -Post Debridement (cm) - Width 2.0 -Post Debridement (cm) - Depth 0.1 -Total Square (Post) (cm) 1.00 -Area of Debridement (cm) - Length 0.5 -Area of Debridement (cm) - Width 2.0 -Total Square (Area) (cm) 1.00 -Tunneling No -Undermining/Tunneling No -Circular Undermining No -Wound/Ulcer Outcome Not Healed -Ulcer Cleansing Rinsed/ Irrigated with Saline -Foul Odor after Cleansing No -Bioengineered Tissue No -Bleeding Controlled with Pressure -Offloading No -Treatment Response Procedure Tolerated Well -Debridement - Subq, 1st 20sq cm Yes #1- LEFT GROIN- POST OP -Time 09:37 -Correct Patient Yes -Correct Side, Site, Position Yes -Correct Procedure Yes -Procedure Performed Yes -Type of Procedure Debridement -Clinical Debridement Subcutaneous -Tissue Removed Subcutaneous -Post Debridement (cm) - Length 1.0 -Post Debridement (cm) - Width 8.0 -Post Debridement (cm) - Depth 0.1 -Total Square (Post) (cm) 8.00 -Area of Debridement (cm) - Length 1.0 -Area of Debridement (cm) - Width 8.0 -Total Square (Area) (cm) 8.00 -Tunneling No -Undermining/Tunneling No -Circular Undermining No -Wound/Ulcer Outcome Not Healed -Ulcer Cleansing Rinsed/ Irrigated with Saline -Foul Odor after Cleansing No -Bioengineered Tissue No -Bleeding Controlled with Pressure -Offloading No -Treatment Response Procedure Tolerated Well -Debridement - Subq, 1st 20sq cm No [See Physician Procedure note for Specifics] Pain Scale: 0-10 Numeric [Pain] -Is Patient Pain Free? Yes - Nurse 3 - General Ulcer D/C NN Start: 01/28/20 13:36 Freq: Status: Active Protocol: Activity Type Activity Date Activity User E-Sign Co-Sign Detail Recorded Client Recorded Date Recorded By Document 02/11/20 09:44 TN [id number] 02/11/20 09:45 TN 02/11/20 09:44 Wound Care Nurse 3 [Wound Dressing] #6 LEFT MEDIAL GROIN CLUSTER -Ulcer Cleansing Rinsed/ Irrigated with Saline -Primary Dressing Applied Aquacel Extra -Primary Dressing Covered/Secured Secured with with Tape -Aquacel Extra 1 #1- LEFT GROIN- POST OP -Primary Dressing Covered/Secured Secured with with Tape Vital Signs [Pulse] -Pulse Rate (60-100 beats/min) 90 -Pulse Location Monitor [Respirations] -Respiratory Rate (12-18 breaths/min) 20 H -Respiratory rate source Observation [Blood Pressure] -Blood Pressure (90/60-120/80 mm Hg) 120/60 -Blood Pressure Mean (mm Hg) 80 -Source Monitor -Position Semi-Fowlers -Blood Pressure Location Left Arm Pain Scale: 0-10 Numeric [Pain] -Is Patient Pain Free? Yes - Visit Discharge [Visit Discharge Information] -Discharge Condition Stable -Ambulatory Status Ambulatory -Transportation Private Auto -Medication Reconcilliation completed No & provided to patient/care provider -Clinical Summary of Care Provided Yes Musculoskeletal: No Muscle Wasting Neurological: Cranial nerves II-XII grossly intact Psych/Mental Status: Normal Affect Debridement Note Post-Debridement Measurements/Treatment - Nurse 2 - General Ulcer CM Notes Start: 01/28/20 13:36 Freq: Status: Active Protocol: Activity Type Activity Date Activity User E-Sign Co-Sign Detail Recorded Client Recorded Date Recorded By Document 01/28/20 14:03 MW [id number] 01/28/20 14:05 MW Document 02/04/20 14:25 MW [id number] 02/04/20 14:30 MW Document 02/11/20 09:32 MW [id number] 02/11/20 09:37 MW 01/28/20 02/04/20 02/11/20 14:03 14:25 09:32 Wound Center Nurse 2 #6 LEFT MEDIAL GROIN CLUSTER -Time 14:04 14:27 09:36 -Correct Patient Yes Yes Yes -Correct Side, Site, Position Yes Yes Yes -Correct Procedure Yes Yes Yes -Procedure Performed Yes Yes Yes -Type of Procedure Debridement Debridement Debridement -Clinical Debridement Subcutaneous Subcutaneous Subcutaneous -Tissue Removed Subcutaneous Subcutaneous Subcutaneous -Post Debridement (cm) - Length 0.8 0.6 0.5 -Post Debridement (cm) - Width 1.5 2.0 2.0 -Post Debridement (cm) - Depth 0.1 0.1 0.1 -Total Square (Post) (cm) 1.20 1.20 1.00 -Area of Debridement (cm) - Length 0.8 0.6 0.5 -Area of Debridement (cm) - Width 1.5 2.0 2.0 -Total Square (Area) (cm) 1.20 1.20 1.00 -Tunneling No No No -Undermining/Tunneling No No No -Circular Undermining No No No -Wound/Ulcer Outcome Not Healed Not Healed Not Healed -Ulcer Cleansing Rinsed/ Rinsed/ Rinsed/ Irrigated with Irrigated with Irrigated with Saline Saline Saline -Foul Odor after Cleansing No No No -Bioengineered Tissue No No No -Bleeding Controlled with Pressure Pressure Pressure -Offloading No No No -Treatment Response Procedure Procedure Tolerated Well Tolerated Well -Debridement - Subq, 1st 20sq cm Yes Yes Yes #1- LEFT GROIN- POST OP -Time 14:04 14:28 09:37 -Correct Patient Yes Yes Yes -Correct Side, Site, Position Yes Yes Yes -Correct Procedure Yes Yes Yes -Procedure Performed Yes Yes Yes -Type of Procedure Debridement Debridement Debridement -Clinical Debridement Subcutaneous Subcutaneous Subcutaneous -Tissue Removed Subcutaneous Subcutaneous Subcutaneous -Post Debridement (cm) - Length 1.5 1.5 1.0 -Post Debridement (cm) - Width 8.0 8.5 8.0 -Post Debridement (cm) - Depth 0.1 0.1 0.1 -Total Square (Post) (cm) 12.00 12.75 8.00 -Area of Debridement (cm) - Length 1.5 1.5 1.0 -Area of Debridement (cm) - Width 8.0 8.5 8.0 -Total Square (Area) (cm) 12.00 12.75 8.00 -Tunneling No No No -Undermining/Tunneling No No No -Circular Undermining No No No -Wound/Ulcer Outcome Not Healed Not Healed Not Healed -Ulcer Cleansing Rinsed/ Rinsed/ Rinsed/ Irrigated with Irrigated with Irrigated with Saline Saline Saline -Foul Odor after Cleansing No No No -Bioengineered Tissue No No No -Bleeding Controlled with Pressure Pressure Pressure -Offloading No No No -Treatment Response Procedure Procedure Tolerated Well Tolerated Well -Debridement - Subq, 1st 20sq cm No No No Pain Scale: 0-10 Numeric Is Patient Pain Free? Yes Yes Yes WC - Nurse 3 - General Ulcer D/C NN Start: 01/28/20 13:36 Freq: Status: Active Protocol: Activity Type Activity Date Activity User E-Sign Co-Sign Detail Recorded Client Recorded Date Recorded By Document 02/04/20 14:35 MW [id number] 02/04/20 14:36 MW Document 02/11/20 09:44 MT [id number] 02/11/20 09:45 MT 02/04/20 02/11/20 14:35 09:44 Wound Care Nurse 3 #6 LEFT MEDIAL GROIN CLUSTER -Ulcer Cleansing Rinsed/ Rinsed/ Irrigated with Irrigated with Saline Saline -Foul Odor after Cleansing No -Negative Pressure Wound Therapy N/A -Primary Dressing Applied Aquacel AG 4x4 Aquacel Extra -Primary Dressing Covered/Secured with Dry Gauze, Secured with Secured with Tape Tape -Aquacel Extra 1 -Aquacel AG 4x4 1 #1- LEFT GROIN- POST OP -Ulcer Cleansing Rinsed/ Irrigated with Saline -Foul Odor after Cleansing No -Negative Pressure Wound Therapy N/A -Other Dressing aquacel ag -Primary Dressing Covered/Secured with Dry Gauze, Secured with Secured with Tape Tape Treatment Response Procedure Tolerated Well Vital Signs Pulse Rate (60-100 beats/min) 90 Pulse Location Monitor Respiratory Rate (12-18 breaths/min) 20 H Respiratory rate source Observation Blood Pressure (90/60-120/80 mm Hg) 120/60 Blood Pressure Mean (mm Hg) 80 Source Monitor Position Semi-Fowlers Blood Pressure Location Left Arm Pain Scale: 0-10 Numeric Is Patient Pain Free? Yes Teaching: Wound Center Dressing Your Wound -Person Taught Patient -Teaching Method Discussion -Response to teaching Verbalize understanding WC - Visit Discharge Discharge Condition Stable Stable Ambulatory Status Ambulatory Ambulatory Transportation Private Auto Private Auto Accompanied by brother Medication Reconcilliation completed & No No provided to patient/care provider Clinical Summary of Care Provided Yes Yes Wound debrided: Left medial groin Type of Debridement: Excisional debridement Anesthesia Used: 4% Lidocaine Solution Depth: Down to and including healthy tissue, in the subcutaneous layer Percentage of wound debrided: 100 Instrument Used: 5mm curette Tissue Removed: Slough and devitalized tissue Severity: Fat Layer Exposed Amount of bleeding with debridement: Mild Bleeding Controlled with: Pressure Patient tolerated procedure well - Additional Wound Wound debrided: Left Lateral groin Type of Debridement: Excisional debridement Anesthesia Used: 4% Lidocaine Solution Depth: Down to and including healthy tissue, in the subcutaneous layer Percentage of wound debrided: 100 Instrument Used: 5mm curette Tissue Removed: Slough and devitalized tissue Severity: Fat Layer Exposed Amount of bleeding with debridement: Mild Bleeding Controlled with: Pressure Patient tolerated procedure: Patient tolerated procedure well Assessment/Plan Active Problems Ulcer of left groin with fat layer exposed (Chronic) Type 2 diabetes mellitus (Chronic) Diabetic neuropathy (Chronic) Morbid obesity (Chronic) Non-healing surgical wound of left groin (Chronic) x 3 Non-healing surgical wound (Chronic) x 2 left medial and lateral groin Skin ulcer of abdominal wall with fat layer exposed (Chronic) left abdominal fold and left medial groin cluster ulcers Assessment: Nonhealing postsurgical wound left groin status post surgical excision of necrotizing fasciitis. Morbid obesity. Type 2 diabetes mellitus Plan: Debridement done as documented above. Procedure was well-tolerated. Continue Aquacel silver daily. May change twice daily depending on drainage. Optimal diabetes control again discussed. Advised to speak with his primary care physician about possibly starting on a GLP-1. Continue increased protein intake. His questions were answered and he was advised to call with any further questions or concerns. Follow-up in 2 weeks at [facility] Neil, [employer]. This note was generated with [employer] software. It may contain incorrect words, spelling, and punctuation that were not noted in checking the note before isaura patten [id number]: [id number] Jessica subq tissue 20 sq cm/<
== END 2020-02-20 23:59 ==
LOC: WC 09:00
PROVIDERS: Family Provider Family Medicine; PCP Family Medicine; Visit Provider Nurse Practitioner Family
DX: T81.89XA Other complications of procedures, not elsewhere classified, initial encounter (principal); L98.492 Non-pressure chronic ulcer of skin of other sites with fat layer exposed; Y83.8 Other surgical procedures as the cause of abnormal reaction of the patient, or of later complication, without mention of misadventure at the time of the procedure; Y92.9 Unspecified place or not applicable; E11.40 Type 2 diabetes mellitus with diabetic neuropathy, unspecified; R60.0 Localized edema; L30.4 Erythema intertrigo; M79.3 Panniculitis, unspecified; I89.0 Lymphedema, not elsewhere classified; F20.9 Schizophrenia, unspecified; E66.01 Morbid (severe) obesity due to excess calories; Z79.4 Long term (current) use of insulin; Z79.899 Other long term (current) drug therapy
CPT/HCPCS: 11042; 36415; 80053; 83036; 84134; 85025; 85652; 86140

== ENCOUNTER 2020-03-10 14:15 | Outpatient (RCR) | payer MEDICARE, MEDICAID, SELFPAY ==
[2020-02-21 00:17] VITALS: BP 120/60; PULSE 90; RESP 20; TEMP 35.4
[2020-02-25 13:24] VITALS: BP 113/73; PULSE 84; RESP 16; TEMP 36.3
--- NOTE | 2020-02-25 13:55 | PN.PCM_ITS ---
(1) Ulcer of left groin with fat layer exposed Status: Chronic Code(s): L98.492 - Non-pressure chronic ulcer of skin of other sites with fat layer exposed (2) Intertrigo Status: Chronic Code(s): L30.4 - Erythema intertrigo Comment: abdominal wall skin crease intertrigo (3) Abdominal panniculus Status: Chronic Code(s): E65 - Localized adiposity (4) Type 2 diabetes mellitus Status: Chronic Qualifiers: Code(s): E11.9 - Type 2 diabetes mellitus without complications (5) Morbid obesity Status: Chronic Code(s): E66.01 - Morbid (severe) obesity due to excess calories Type of Wound Date of Service: 02/25/20 Chief Complaint: Nonhealing wound status post surgical excision of necrotizing fasciitis left groin History of Wound: 46-year-old white male who presents to the wound healing center today with complaint of left groin ulceration status post surgical excision of necrotizing fasciitis. He is a past medical history which is significant for that of type 2 diabetes mellitus, gout, diabetic neuropathy, schizophrenia, bilateral lymphedema, and schizophrenia. The patient states that what initially started as a pimple in his left groin progressed to necrotizing fasciitis and he had to have this surgically debrided in April 2017. He was admitted to [facility] for 2 weeks and then [facility] for 6 weeks after[facility]. He states that the groin ulcer which extends to his left lower abdomen has been slowly improving and he has been doing daily Aquacel AG dressings with an ABD for the drainage. He does state that he has had 3 wound vacs in the past which were unable to be utilized due to the location of his wound. He denies any foul-smelling discharge or systemic signs of infection at this time. He is seen today as a courtesy visit for Gianni Neil CNP. He is tolerating dressings and denies any increase in drainage. He has been also using sweat beater to his groin area to prevent moisture. The patient otherwise denies any fever, chills, nausea, vomiting, shortness of breath, chest pain or pressure, palpitations, orthopnea, syncope or presyncopal episodes. Progress of Wound: No new concerns at this time. Scheduled surgery was put on hold due to poor diabetes control. He states that he has been monitoring his diet closely and his numbers are better. - Physical Exam Vital Signs Temp Pulse Resp BP 97.3 F L 84 16 115/80 02/25/20 13:24 02/25/20 13:24 02/25/20 13:24 02/25/20 14:24 General: Alert, Cooperative HEENT: Atraumatic Oral: Moist Mucosa Lungs: Normal air movement Cardiovascular: Regular rate Abdomen: Obese Extremities: Capillary Refill Less than 3 Seconds Skin: Ulcer/ Wound - Left groin with medial and lateral ulcers that are pink. Wound Measurements and Assessment WC - Nurse 1 - General Ulcer Measurement Start: 02/25/20 13:24 Freq: Status: Active Protocol: Activity Type Activity Date Activity User E-Sign Co-Sign Detail Recorded Client Recorded Date Recorded By Document 02/25/20 13:24 MS [id number] 02/25/20 13:35 MS 02/25/20 13:24 Wound Center Nurse 1 [Ulcer Assessment] #6 LEFT MEDIAL GROIN CLUSTER -Current Size (cm) - Length 1 -Current Size (cm) - Width 0.3 -Current Size (cm) - Depth 0.1 -Total Square Cm 0.3 -Epithelialization Medium 34-66% -Exudate Amt Medium -Exudate Type Serosanguineous -Wound Margin Distinct, Outline Attached -Granulation Amt Small (1-33%) -Granulation Quality [place] -Slough/Fibrin Yes -Necrosis Amt Small (1-33%) -Necrotic Tissue Type Adherent Slough -Texture (Inessa-wound Skin Appearance) Assessed -Moisture (Inessa-wound Skin Appearance Assessed ) -Color (Inessa-wound Skin Appearance) Assessed -Temperature (Inessa-wound Skin No Abnormality Appearance) (Pt Warm) -Tenderness on Palpation (Inessa-wound No Skin Appearance) -Ulcer Cleansing SOAP AND WATER -Foul Odor after Cleansing No -Anesthetic Used 4% Lidocaine Solution #1- LEFT GROIN- POST OP -Current Size (cm) - Length 7.5 -Current Size (cm) - Width 1 -Current Size (cm) - Depth 0.3 -Total Square Cm 7.5 -Exudate Amt Small -Exudate Type Serosanguineous -Wound Margin Distinct, Outline Attached -Granulation Amt Medium (34-66%) -Slough/Fibrin Yes -Necrosis Amt Small (1-33%) -Necrotic Tissue Type Adherent Slough -Texture (Inessa-wound Skin Appearance) Assessed -Moisture (Inessa-wound Skin Appearance Assessed ) -Color (Inessa-wound Skin Appearance) Assessed -Temperature (Inessa-wound Skin No Abnormality Appearance) (Pt Warm) -Tenderness on Palpation (Inessa-wound No Skin Appearance) -Ulcer Cleansing SOAP AND WATER -Foul Odor after Cleansing No -Anesthetic Used 4% Lidocaine Solution WC - Nurse 2 - General Ulcer CM Notes Start: 02/25/20 13:24 Freq: Status: Active Protocol: Activity Type Activity Date Activity User E-Sign Co-Sign Detail Recorded Client Recorded Date Recorded By Document 02/25/20 13:59 MW [id number] 02/25/20 14:02 MW 02/25/20 13:59 Wound Center Nurse 2 [Procedure/Treatment] #6 LEFT MEDIAL GROIN CLUSTER -Time 14:00 -Correct Patient Yes -Correct Side, Site, Position Yes -Correct Procedure Yes -Procedure Performed Yes -Type of Procedure Debridement -Clinical Debridement Subcutaneous -Tissue Removed Subcutaneous -Post Debridement (cm) - Length 0.3 -Post Debridement (cm) - Width 1.2 -Post Debridement (cm) - Depth 0.1 -Total Square (Post) (cm) 0.36 -Area of Debridement (cm) - Length 0.3 -Area of Debridement (cm) - Width 1.2 -Total Square (Area) (cm) 0.36 -Tunneling No -Undermining/Tunneling No -Circular Undermining No -Wound/Ulcer Outcome Not Healed -Ulcer Cleansing Rinsed/ Irrigated with Saline -Foul Odor after Cleansing No -Bioengineered Tissue No -Bleeding Controlled with Pressure -Offloading No -Treatment Response Procedure Tolerated Well -Debridement - Subq, 1st 20sq cm Yes #1- LEFT GROIN- POST OP -Time 14:01 -Correct Patient Yes -Correct Side, Site, Position Yes -Correct Procedure Yes -Procedure Performed Yes -Type of Procedure Debridement -Clinical Debridement Subcutaneous -Tissue Removed Subcutaneous -Post Debridement (cm) - Length 1.5 -Post Debridement (cm) - Width 7.8 -Post Debridement (cm) - Depth 0.6 -Total Square (Post) (cm) 11.70 -Area of Debridement (cm) - Length 1.5 -Area of Debridement (cm) - Width 7.8 -Total Square (Area) (cm) 11.70 -Tunneling No -Undermining/Tunneling No -Circular Undermining No -Wound/Ulcer Outcome Not Healed -Ulcer Cleansing Rinsed/ Irrigated with Saline -Foul Odor after Cleansing No -Bioengineered Tissue No -Bleeding Controlled with Pressure -Offloading No -Treatment Response Procedure Tolerated Well -Debridement - Subq, 1st 20sq cm No [See Physician Procedure note for Specifics] Pain Scale: 0-10 Numeric [Pain] -Is Patient Pain Free? Yes WC - Nurse 3 - General Ulcer D/C NN Start: 02/25/20 13:24 Freq: Status: Active Protocol: Activity Type Activity Date Activity User E-Sign Co-Sign Detail Recorded Client Recorded Date Recorded By Document 02/25/20 14:24 MS [id number] 02/25/20 14:26 MS 02/25/20 14:24 Wound Care Nurse 3 [Wound Dressing] #6 LEFT MEDIAL GROIN CLUSTER -Ulcer Cleansing Rinsed/ Irrigated with Saline -Foul Odor after Cleansing No -Primary Dressing Applied Aquacel AG 4x4 -Primary Dressing Covered/Secured Dry Gauze, with Secured with Tape -Aquacel AG 4x4 1 #1- LEFT GROIN- POST OP -Ulcer Cleansing Rinsed/ Irrigated with Saline -Foul Odor after Cleansing No -Primary Dressing Applied Aquacel AG 4x4 -Primary Dressing Covered/Secured Dry Gauze, with Secured with Tape -Aquacel AG 4x4 0 Vital Signs [Blood Pressure] -Blood Pressure (90/60-120/80) 115/80 -Blood Pressure Mean (mm Hg) 91 -Source Monitor -Position Sitting -Blood Pressure Location Right Arm Pain Scale: 0-10 Numeric [Pain] -Is Patient Pain Free? Yes - Visit Discharge [Visit Discharge Information] -Discharge Condition Stable -Ambulatory Status Ambulatory -Transportation Private Auto -Medication Reconcilliation completed No & provided to patient/care provider -Clinical Summary of Care Provided Yes Musculoskeletal: No Tenderness to Palpation of Joints or Extremities Neurological: Cranial nerves II-XII grossly intact Psych/Mental Status: Normal Affect, Appropriate Debridement Note Post-Debridement Measurements/Treatment RAMÓN - Nurse 2 - General Ulcer CM Notes Start: 02/25/20 13:24 Freq: Status: Active Protocol: Activity Type Activity Date Activity User E-Sign Co-Sign Detail Recorded Client Recorded Date Recorded By Document 02/25/20 13:59 MW [id number] 02/25/20 14:02 MW 11/05/20 13:59 Wound Center Nurse 2 #6 LEFT MEDIAL GROIN CLUSTER -Time 14:00 -Correct Patient Yes -Correct Side, Site, Position Yes -Correct Procedure Yes -Procedure Performed Yes -Type of Procedure Debridement -Clinical Debridement Subcutaneous -Tissue Removed Subcutaneous -Post Debridement (cm) - Length 0.3 -Post Debridement (cm) - Width 1.2 -Post Debridement (cm) - Depth 0.1 -Total Square (Post) (cm) 0.36 -Area of Debridement (cm) - Length 0.3 -Area of Debridement (cm) - Width 1.2 -Total Square (Area) (cm) 0.36 -Tunneling No -Undermining/Tunneling No -Circular Undermining No -Wound/Ulcer Outcome Not Healed -Ulcer Cleansing Rinsed/ Irrigated with Saline -Foul Odor after Cleansing No -Bioengineered Tissue No -Bleeding Controlled with Pressure -Offloading No -Treatment Response Procedure Tolerated Well -Debridement - Subq, 1st 20sq cm Yes #1- LEFT GROIN- POST OP -Time 14:01 -Correct Patient Yes -Correct Side, Site, Position Yes -Correct Procedure Yes -Procedure Performed Yes -Type of Procedure Debridement -Clinical Debridement Subcutaneous -Tissue Removed Subcutaneous -Post Debridement (cm) - Length 1.5 -Post Debridement (cm) - Width 7.8 -Post Debridement (cm) - Depth 0.6 -Total Square (Post) (cm) 11.70 -Area of Debridement (cm) - Length 1.5 -Area of Debridement (cm) - Width 7.8 -Total Square (Area) (cm) 11.70 -Tunneling No -Undermining/Tunneling No -Circular Undermining No -Wound/Ulcer Outcome Not Healed -Ulcer Cleansing Rinsed/ Irrigated with Saline -Foul Odor after Cleansing No -Bioengineered Tissue No -Bleeding Controlled with Pressure -Offloading No -Treatment Response Procedure Tolerated Well -Debridement - Subq, 1st 20sq cm No Pain Scale: 0-10 Numeric Is Patient Pain Free? Yes WC - Nurse 3 - General Ulcer D/C NN Start: 02/25/20 13:24 Freq: Status: Active Protocol: Activity Type Activity Date Activity User E-Sign Co-Sign Detail Recorded Client Recorded Date Recorded By Document 02/25/20 14:24 MS [id number] 02/25/20 14:26 MS 02/25/20 14:24 Wound Care Nurse 3 #6 LEFT MEDIAL GROIN CLUSTER -Ulcer Cleansing Rinsed/ Irrigated with Saline -Foul Odor after Cleansing No -Primary Dressing Applied Aquacel AG 4x4 -Primary Dressing Covered/Secured with Dry Gauze, Secured with Tape -Aquacel AG 4x4 1 #1- LEFT GROIN- POST OP -Ulcer Cleansing Rinsed/ Irrigated with Saline -Foul Odor after Cleansing No -Primary Dressing Applied Aquacel AG 4x4 -Primary Dressing Covered/Secured with Dry Gauze, Secured with Tape -Aquacel AG 4x4 0 Vital Signs Blood Pressure (90/60-120/80) 115/80 Blood Pressure Mean (mm Hg) 91 Source Monitor Position Sitting Blood Pressure Location Right Arm Pain Scale: 0-10 Numeric Is Patient Pain Free? Yes WC - Visit Discharge Discharge Condition Stable Ambulatory Status Ambulatory Transportation Private Auto Medication Reconcilliation completed & No provided to patient/care provider Clinical Summary of Care Provided Yes Wound debrided: groin medial ulcer Laterality: Left Type of Debridement: Excisional debridement Anesthesia Used: 5% Lidocaine Gel Depth: Down to and including healthy tissue, in the subcutaneous layer Percentage of wound debrided: 100 Instrument Used: 5mm curette Tissue Removed: Subcutaneous tissue and slough Severity: Fat Layer Exposed Amount of bleeding with debridement: Mild Bleeding Controlled with: Pressure Patient tolerated procedure well - Additional Wound Wound debrided: Lateral groin ulcer Laterality: Left Type of Debridement: Excisional debridement Anesthesia Used: 5% Lidocaine Gel Depth: Down to and including healthy tissue, in the subcutaneous layer Percentage of wound debrided: 100 Instrument Used: 5mm curette Tissue Removed: Subcutaneous tissue and slough Severity: Fat Layer Exposed Amount of bleeding with debridement: Mild Bleeding Controlled with: Pressure Patient tolerated procedure: Patient tolerated procedure well Assessment/Plan Assessment: Nonhealing postsurgical wound left groin status post surgical excision of necrotizing fasciitis. Morbid obesity. Type 2 diabetes mellitus Plan: Debridement done as documented above. Procedure was well-tolerated. Continue Aquacel silver daily. May change twice daily depending on drainage. Optimal diabetes control again discussed. Advised to speak with his primary care physician about possibly starting on a GLP-1. Continue increased protein intake. His questions were answered and he was advised to call with any further questions or concerns. Follow-up in 1 week with Gianni Neil, [facility]LIND[facility] DYER. This note was generated with [employer]Roll[employer] software. It may contain incorrect words, spelling, and punctuation that were not noted in checking the note before signing. [id number]: [id number] Jessica subq tissue 20 sq cm/<
[2020-02-25 14:24] VITALS: BP 115/80
[2020-03-03 13:35] VITALS: BP 117/75; PULSE 78; RESP 18; TEMP 35.5
[2020-03-03 14:57] VITALS: BP 117/75
--- NOTE | 2020-03-03 17:14 | PN.PCM_ITS ---
(1) Ulcer of left groin with fat layer exposed Status: Chronic Code(s): L98.492 - Non-pressure chronic ulcer of skin of other sites with fat layer exposed Comment: x 2 (2) Abdominal panniculus Status: Chronic Code(s): E65 - Localized adiposity (3) Intertrigo Status: Chronic Code(s): L30.4 - Erythema intertrigo Comment: abdominal wall skin crease intertrigo (4) Morbid obesity Status: Chronic Code(s): E66.01 - Morbid (severe) obesity due to excess calories (5) Type 2 diabetes mellitus Status: Chronic Qualifiers: Code(s): E11.9 - Type 2 diabetes mellitus without complications (6) Lymphedema of both lower extremities Status: Acute Code(s): I89.0 - Lymphedema, not elsewhere classified (7) History of necrotising fasciitis Status: Chronic Code(s): Z87.39 - Personal history of other diseases of the musculoskeletal system and connective tissue (8) Non-healing surgical wound of left groin Status: Chronic Qualifiers: Code(s): T81.89XA - Other complications of procedures, not elsewhere classified, initial encounter Comment: x 3 (9) Panniculitis Status: Chronic Code(s): M79.3 - Panniculitis, unspecified (10) Skin ulcer of abdominal wall with fat layer exposed Status: Chronic Code(s): L98.492 - Non-pressure chronic ulcer of skin of other sites with fat layer exposed Comment: left abdominal fold and left medial groin cluster ulcers Type of Wound Date of Service: 03/03/20 Chief Complaint: Nonhealing wound status post surgical excision of necrotizing fasciitis left groin History of Wound: 46-year-old white male who presents to the wound healing center today with complaint of left groin ulceration status post surgical excision of necrotizing fasciitis. He is a past medical history which is significant for that of type 2 diabetes mellitus, gout, diabetic neuropathy, schizophrenia, bilateral lymphedema, and schizophrenia. The patient states that what initially started as a pimple in his left groin progressed to necrotizing fasciitis and he had to have this surgically debrided in April 2017. He was admitted to [facility] for 2 weeks and then [facility] for 6 weeks [facility]te [facility]. He states that the groin ulcer which extends to his left lower abdomen has been slowly improving and he has been doing daily Aquacel AG dressings with an ABD for the drainage. He does state that he has had 3 wound vacs in the past which were unable to be utilized due to the location of his wound. He denies any foul-smelling discharge or systemic signs of infection at this time. He is seen today as a courtesy visit for Gianni Neil CNP. He is tolerating dressings and denies any increase in drainage. He has been also using sweat beater to his groin area to prevent moisture. The patient otherwise denies any fever, chills, nausea, vomiting, shortness of breath, chest pain or pressure, palpitations, orthopnea, syncope or presyncopal episodes. Progress of Wound: No new concerns at this time. Scheduled surgery was put on hold due to poor diabetes control. He states that he has been monitoring his diet closely and his numbers are better.First application of purapply AM today to left outer groin ulcer. - Physical Exam Vital Signs Temp Pulse Resp BP 95.9 F L 78 18 117/75 03/03/20 13:35 03/03/20 13:35 03/03/20 13:35 03/03/20 14:57 General: Alert, Oriented x3, Cooperative, No apparent distress HEENT: Atraumatic Oral: Moist Mucosa Lungs: Clear to auscultation, Normal air movement Cardiovascular: Regular rate, Regular Rhythm Abdomen: Soft, Non Tender, Obese Extremities: No clubbing, No cyanosis, Edema - Generalized bilateral lower extremity edema Skin: Ulcer/ Wound - See nursing documentation, slough and devitalized tissue present, no signs of infection at this time Wound Measurements and Assessment WC - Nurse 1 - General Ulcer Measurement Start: 02/25/20 13:24 Freq: Status: Active Protocol: Activity Type Activity Date Activity User E-Sign Co-Sign Detail Recorded Client Recorded Date Recorded By Document 03/03/20 13:35 [facility] [id number] 03/03/20 13:42 [facility] 03/03/20 13:35 Wound Center Nurse 1 [Ulcer Assessment] #6 LEFT MEDIAL GROIN CLUSTER -Combined with other wound No -Current Size (cm) - Length 0.2 -Current Size (cm) - Width 1.1 -Current Size (cm) - Depth 0.2 -Total Square Cm 0.22 -Photo Taken No -Epithelialization None Present -Tunneling No -Undermining/Tunneling No -Circular Undermining No -Exudate Amt Medium -Exudate Type Serosanguineous -Wound Margin Distinct, Outline Attached -Granulation Amt Large (67-100%) -Granulation Quality Pale,Red -Slough/Fibrin Yes -Necrosis Amt Small (1-33%) -Necrotic Tissue Type Adherent Slough -Texture (Inessa-wound Skin Appearance) Assessed, Scarring -Moisture (Inessa-wound Skin Appearance Assessed, ) Maceration -Color (Inessa-wound Skin Appearance) Assessed -Temperature (Inessa-wound Skin No Abnormality Appearance) (Pt Warm) -Tenderness on Palpation (Inessa-wound No Skin Appearance) -Ulcer Cleansing SOAPY WATER -Foul Odor after Cleansing No -Anesthetic Used 4% Lidocaine Solution #1- LEFT GROIN- POST OP -Combined with other wound No -Current Size (cm) - Length 1.3 -Current Size (cm) - Width 6.9 -Current Size (cm) - Depth 0.2 -Total Square Cm 8.97 -Photo Taken No -Epithelialization None Present -Tunneling No -Undermining/Tunneling No -Circular Undermining No -Exudate Amt Medium -Exudate Type Serosanguineous -Wound Margin Distinct, Outline Attached -Granulation Amt Large (67-100%) -Granulation Quality Pale,Red -Slough/Fibrin Yes -Necrosis Amt Small (1-33%) -Necrotic Tissue Type Adherent Slough -Texture (Inessa-wound Skin Appearance) Assessed, Scarring -Moisture (Inessa-wound Skin Appearance Assessed, ) Maceration -Color (Inessa-wound Skin Appearance) Assessed -Temperature (Inessa-wound Skin No Abnormality Appearance) (Pt Warm) -Tenderness on Palpation (Inessa-wound No Skin Appearance) -Ulcer Cleansing SOAPY WATER -Foul Odor after Cleansing No -Anesthetic Used 4% Lidocaine Solution WC - Nurse 2 - General Ulcer CM Notes Start: 02/25/20 13:24 Freq: Status: Active Protocol: Activity Type Activity Date Activity User E-Sign Co-Sign Detail Recorded Client Recorded Date Recorded By Document 03/03/20 14:35 MW [id number] 03/03/20 14:42 MW 03/03/20 14:35 Wound Center Nurse 2 [Procedure/Treatment] #6 LEFT MEDIAL GROIN CLUSTER -Time 14:36 -Correct Patient Yes -Correct Side, Site, Position Yes -Correct Procedure Yes -Procedure Performed Yes -Type of Procedure Debridement -Clinical Debridement Subcutaneous -Tissue Removed Subcutaneous -Post Debridement (cm) - Length 0.3 -Post Debridement (cm) - Width 1.0 -Post Debridement (cm) - Depth 0.2 -Total Square (Post) (cm) 0.30 -Area of Debridement (cm) - Length 0.3 -Area of Debridement (cm) - Width 1.0 -Total Square (Area) (cm) 0.30 -Tunneling No -Undermining/Tunneling No -Circular Undermining No -Wound/Ulcer Outcome Not Healed -Ulcer Cleansing Rinsed/ Irrigated with Saline -Foul Odor after Cleansing No -Bioengineered Tissue No -Bleeding Controlled with Pressure -Offloading No -Treatment Response Procedure Tolerated Well -Debridement - Subq, 1st 20sq cm Yes #1- LEFT GROIN- POST OP -Time 14:40 -Correct Patient Yes -Correct Side, Site, Position Yes -Correct Procedure Yes -Procedure Performed Yes -Type of Procedure Debridement -Clinical Debridement Subcutaneous -Tissue Removed Subcutaneous -Post Debridement (cm) - Length 1.5 -Post Debridement (cm) - Width 8.0 -Post Debridement (cm) - Depth 0.1 -Total Square (Post) (cm) 12.00 -Area of Debridement (cm) - Length 1.5 -Area of Debridement (cm) - Width 8.0 -Total Square (Area) (cm) 12.00 -Tunneling No -Undermining/Tunneling No -Circular Undermining No -Wound/Ulcer Outcome Not Healed -Ulcer Cleansing Rinsed/ Irrigated with Saline -Foul Odor after Cleansing No -Bioengineered Tissue Yes -Type of Bioengineered Tissue PuraPly AM -Bleeding Controlled with Pressure -Offloading No -Debridement - Subq, 1st 20sq cm No -Apply Skin Sub - 1st 25 sq cm - Legs 1 -PuraPly AM (per sq cm) 12 [See Physician Procedure note for Specifics] Pain Scale: 0-10 Numeric [Pain] -Is Patient Pain Free? Yes WC - Nurse 3 - General Ulcer D/C NN Start: 02/25/20 13:24 Freq: Status: Active Protocol: Activity Type Activity Date Activity User E-Sign Co-Sign Detail Recorded Client Recorded Date Recorded By Document 03/03/20 14:57 RB [id number] 03/03/20 14:58 RB 03/03/20 14:57 Wound Care Nurse 3 [Wound Dressing] #6 LEFT MEDIAL GROIN CLUSTER -Primary Dressing Applied Aquacel Extra -Primary Dressing Covered/Secured Dry Gauze, with Secured with Tape -Aquacel Extra 1 #1- LEFT GROIN- POST OP -Other Dressing AQUACEL EXTRA -Primary Dressing Covered/Secured Dry Gauze, with Secured with Tape [Post Procedure Tolerated] -Treatment Response Procedure Tolerated Well Vital Signs [Blood Pressure] -Blood Pressure (90/60-120/80) 117/75 -Blood Pressure Mean (mm Hg) 89 -Source Monitor -Position Semi-Fowlers -Blood Pressure Location Left Arm Pain Scale: 0-10 Numeric [Pain] -Is Patient Pain Free? Yes Teaching: Wound Center [Wound Center Education] (Items with an * have Printed Materials Available- Please identify what is given to patient under the Teaching materials given to patient and caregiver Section. Dressing Your Wound -Person Taught Patient -Teaching Method Discussion, Demonstration -Response to teaching Verbalize understanding WC - Visit Discharge [Visit Discharge Information] -Discharge Condition Stable -Ambulatory Status Ambulatory -Transportation Private Auto -Medication Reconcilliation completed No & provided to patient/care provider -Clinical Summary of Care Provided Yes Neurological: Neuro grossly intact Psych/Mental Status: Normal Affect, Appropriate, Alert and oriented to time, place, person, mood and affect Debridement Note Post-Debridement Measurements/Treatment WC - Nurse 2 - General Ulcer CM Notes Start: 02/25/20 13:24 Freq: Status: Active Protocol: Activity Type Activity Date Activity User E-Sign Co-Sign Detail Recorded Client Recorded Date Recorded By Document 02/25/20 13:59 MW [id number] 02/25/20 14:02 MW Document 03/03/20 14:35 MW [id number] 03/03/20 14:42 MW 02/25/20 03/03/20 13:59 14:35 Wound Center Nurse 2 #6 LEFT MEDIAL GROIN CLUSTER -Time 14:00 14:36 -Correct Patient Yes Yes -Correct Side, Site, Position Yes Yes -Correct Procedure Yes Yes -Procedure Performed Yes Yes -Type of Procedure Debridement Debridement -Clinical Debridement Subcutaneous Subcutaneous -Tissue Removed Subcutaneous Subcutaneous -Post Debridement (cm) - Length 0.3 0.3 -Post Debridement (cm) - Width 1.2 1.0 -Post Debridement (cm) - Depth 0.1 0.2 -Total Square (Post) (cm) 0.36 0.30 -Area of Debridement (cm) - Length 0.3 0.3 -Area of Debridement (cm) - Width 1.2 1.0 -Total Square (Area) (cm) 0.36 0.30 -Tunneling No No -Undermining/Tunneling No No -Circular Undermining No No -Wound/Ulcer Outcome Not Healed Not Healed -Ulcer Cleansing Rinsed/ Rinsed/ Irrigated with Irrigated with Saline Saline -Foul Odor after Cleansing No No -Bioengineered Tissue No No -Bleeding Controlled with Pressure Pressure -Offloading No No -Treatment Response Procedure Procedure Tolerated Well Tolerated Well -Debridement - Subq, 1st 20sq cm Yes Yes #1- LEFT GROIN- POST OP -Time 14:01 14:40 -Correct Patient Yes Yes -Correct Side, Site, Position Yes Yes -Correct Procedure Yes Yes -Procedure Performed Yes Yes -Type of Procedure Debridement Debridement -Clinical Debridement Subcutaneous Subcutaneous -Tissue Removed Subcutaneous Subcutaneous -Post Debridement (cm) - Length 1.5 1.5 -Post Debridement (cm) - Width 7.8 8.0 -Post Debridement (cm) - Depth 0.6 0.1 -Total Square (Post) (cm) 11.70 12.00 -Area of Debridement (cm) - Length 1.5 1.5 -Area of Debridement (cm) - Width 7.8 8.0 -Total Square (Area) (cm) 11.70 12.00 -Tunneling No No -Undermining/Tunneling No No -Circular Undermining No No -Wound/Ulcer Outcome Not Healed Not Healed -Ulcer Cleansing Rinsed/ Rinsed/ Irrigated with Irrigated with Saline Saline -Foul Odor after Cleansing No No -Bioengineered Tissue No Yes -Type of Bioengineered Tissue PuraPly AM -Bleeding Controlled with Pressure Pressure -Offloading No No -Treatment Response Procedure Tolerated Well -Debridement - Subq, 1st 20sq cm No No -Apply Skin Sub - 1st 25 sq cm - Legs 1 -PuraPly AM (per sq cm) 12 Pain Scale: 0-10 Numeric Is Patient Pain Free? Yes Yes WC - Nurse 3 - General Ulcer D/C NN Start: 02/25/20 13:24 Freq: Status: Active Protocol: Activity Type Activity Date Activity User E-Sign Co-Sign Detail Recorded Client Recorded Date Recorded By Document 02/25/20 14:24 MS [id number] 02/25/20 14:26 MS Document 03/03/20 14:57 RB [id number] 03/03/20 14:58 RB 02/25/20 03/03/20 14:24 14:57 Wound Care Nurse 3 #6 LEFT MEDIAL GROIN CLUSTER -Ulcer Cleansing Rinsed/ Irrigated with Saline -Foul Odor after Cleansing No -Primary Dressing Applied Aquacel AG 4x4 Aquacel Extra -Primary Dressing Covered/Secured with Dry Gauze, Dry Gauze, Secured with Secured with Tape Tape -Aquacel Extra 1 -Aquacel AG 4x4 1 #1- LEFT GROIN- POST OP -Ulcer Cleansing Rinsed/ Irrigated with Saline -Foul Odor after Cleansing No -Primary Dressing Applied Aquacel AG 4x4 -Other Dressing AQUACEL EXTRA -Primary Dressing Covered/Secured with Dry Gauze, Dry Gauze, Secured with Secured with Tape Tape -Aquacel AG 4x4 0 Treatment Response Procedure Tolerated Well Vital Signs Blood Pressure (90/60-120/80) 115/80 117/75 Blood Pressure Mean (mm Hg) 91 89 Source Monitor Monitor Position Sitting Semi-Fowlers Blood Pressure Location Right Arm Left Arm Pain Scale: 0-10 Numeric Is Patient Pain Free? Yes Yes Teaching: Wound Center Dressing Your Wound -Person Taught Patient -Teaching Method Discussion, Demonstration -Response to teaching Verbalize understanding WC - Visit Discharge Discharge Condition Stable Stable Ambulatory Status Ambulatory Ambulatory Transportation Private Auto Private Auto Medication Reconcilliation completed & No No provided to patient/care provider Clinical Summary of Care Provided Yes Yes Wound debrided: Left groin ulcerations Laterality: Left Type of Debridement: Excisional debridement Anesthesia Used: 5% Lidocaine Gel Depth: in the subcutaneous layer Percentage of wound debrided: 100 Instrument Used: 5mm curette Tissue Removed: Slough and devitalized tissue Severity: Fat Layer Exposed Amount of bleeding with debridement: Mild Bleeding Controlled with: Pressure Patient tolerated procedure well Assessment/Plan Active Problems Intertrigo (Chronic) abdominal wall skin crease intertrigo Abdominal panniculus (Chronic) Ulcer of left groin with fat layer exposed (Chronic) x 2 Type 2 diabetes mellitus (Chronic) Morbid obesity (Chronic) Assessment: Nonhealing postsurgical wound left groin status post surgical excision of necrotizing fasciitis. Morbid obesity. Type 2 diabetes mellitus Plan: Debridement done as documented above. Procedure was well- tolerated.Purapply AM number 1 was applied to the larger groin ulcer, 100% was utilized and was covered with wound veil, Steri-Strips, and tape, he was instructed to place over top Aquacel silver daily. May change twice daily depending on drainage. Optimal diabetes control again discussed. Advised to speak with his primary care physician about possibly starting on a GLP-1. Continue increased protein intake. His questions were answered and he was advised to call with any further questions or concerns. Follow-up in 1 week at wound healing center. Surgery still on hold. This note was generated with [employer] dictation software. It may contain incorrect words, spelling, and punctuation that were not noted in checking the note before signing. [id number]: [id number] Jessica subq tissue 20 sq cm/<
[2020-03-10 14:35] VITALS: BP 125/64; PULSE 79; RESP 18; TEMP 36.5
--- NOTE | 2020-03-10 15:52 | PN.PCM_ITS ---
(1) Ulcer of left groin with fat layer exposed Status: Chronic Code(s): L98.492 - Non-pressure chronic ulcer of skin of other sites with fat layer exposed Comment: x 2 (2) Abdominal panniculus Status: Chronic Code(s): E65 - Localized adiposity (3) Intertrigo Status: Chronic Code(s): L30.4 - Erythema intertrigo Comment: abdominal wall skin crease intertrigo (4) Morbid obesity Status: Chronic Code(s): E66.01 - Morbid (severe) obesity due to excess calories (5) Type 2 diabetes mellitus Status: Chronic Qualifiers: Code(s): E11.9 - Type 2 diabetes mellitus without complications (6) Lymphedema of both lower extremities Status: Acute Code(s): I89.0 - Lymphedema, not elsewhere classified (7) History of necrotising fasciitis Status: Chronic Code(s): Z87.39 - Personal history of other diseases of the musculoskeletal system and connective tissue (8) Non-healing surgical wound of left groin Status: Chronic Qualifiers: Code(s): T81.89XA - Other complications of procedures, not elsewhere classified, initial encounter Comment: x 3 (9) Panniculitis Status: Chronic Code(s): M79.3 - Panniculitis, unspecified (10) Skin ulcer of abdominal wall with fat layer exposed Status: Chronic Code(s): L98.492 - Non-pressure chronic ulcer of skin of other sites with fat layer exposed Comment: left abdominal fold and left medial groin cluster ulcers Type of Wound Date of Service: 03/10/20 Chief Complaint: Nonhealing wound status post surgical excision of necrotizing fasciitis left groin History of Wound: 46-year-old white male who presents to the wound healing center today with complaint of left groin ulceration status post surgical excision of necrotizing fasciitis. He is a past medical history which is significant for that of type 2 diabetes mellitus, gout, diabetic neuropathy, schizophrenia, bilateral lymphedema, and schizophrenia. The patient states that what initially started as a pimple in his left groin progressed to necrotizing fasciitis and he had to have this surgically debrided in April 2017. He was admitted to [facility] for 2 weeks and then [facility]. He states that the groin ulcer which extends to his left lower abdomen has been slowly improving and he has been doing daily Aquacel AG dressings with an ABD for the drainage. He does state that he has had 3 wound vacs in the past which were unable to be utilized due to the location of his wound. He denies any foul-smelling discharge or systemic signs of infection at this time. He is seen today as a courtesy visit for Gianni Neil CNP. He is tolerating dressings and denies any increase in drainage. He has been also using sweat beater to his groin area to prevent moisture. The patient otherwise denies any fever, chills, nausea, vomiting, shortness of breath, chest pain or pressure, palpitations, orthopnea, syncope or presyncopal episodes. Progress of Wound: No new concerns at this time. Scheduled surgery was put on hold due to poor diabetes control. He states that he has been monitoring his diet closely and his numbers are better.First application of purapply AM at prior visit and only stayed on for a couple days, will go back to the silver cell. Patient still tolerating antibiotics well. - Physical Exam Vital Signs Temp Pulse Resp BP 97.7 F L 79 18 125/64 H 03/10/20 14:35 03/10/20 14:35 03/10/20 14:35 03/10/20 14:35 General: Alert, Oriented x3, Cooperative, No apparent distress HEENT: Atraumatic Oral: Moist Mucosa Lungs: Clear to auscultation, Normal air movement Cardiovascular: Regular rate, Regular Rhythm Abdomen: Soft, Non Tender, Obese Extremities: No clubbing, No cyanosis, Edema - bilateral lower extremity edema Skin: Ulcer/ Wound - See nursing documentation, slough and devitalized tissue present, no signs of infection at this time Wound Measurements and Assessment WC - Nurse 1 - General Ulcer Measurement Start: 02/25/20 13:24 Freq: Status: Active Protocol: Activity Type Activity Date Activity User E-Sign Co-Sign Detail Recorded Client Recorded Date Recorded By Document 03/10/20 14:35 DL [id number] 03/10/20 14:39 DL 03/10/20 14:35 Wound Center Nurse 1 [Ulcer Assessment] #6 LEFT MEDIAL GROIN CLUSTER -Current Size (cm) - Length 0.5 -Current Size (cm) - Width 1.4 -Current Size (cm) - Depth 0.1 -Total Square Cm 0.70 -Photo Taken No -Exudate Amt None Present -Wound Margin Distinct, Outline Attached -Granulation Amt Large (67-100%) -Granulation Quality [place] -Necrosis Amt None Present (0 %) -Structure Exposed N/A -Texture (Inessa-wound Skin Appearance) Scarring -Moisture (Inessa-wound Skin Appearance Maceration ) -Color (Inessa-wound Skin Appearance) No Abnormality -Temperature (Inessa-wound Skin No Abnormality Appearance) (Pt Warm) -Tenderness on Palpation (Inessa-wound No Skin Appearance) -Ulcer Cleansing Wound Cleanser -Foul Odor after Cleansing No -Anesthetic Used 4% Lidocaine Solution #1- LEFT GROIN- POST OP -Current Size (cm) - Length 2 -Current Size (cm) - Width 7 -Current Size (cm) - Depth 0.2 -Total Square Cm 14 -Photo Taken No -Exudate Amt Small -Exudate Type Serosanguineous -Wound Margin Distinct, Outline Attached -Granulation Amt Large (67-100%) -Granulation Quality [place] -Necrosis Amt Small (1-33%) -Necrotic Tissue Type Adherent Slough -Structure Exposed N/A -Texture (Inessa-wound Skin Appearance) Scarring -Moisture (Inessa-wound Skin Appearance Maceration ) -Color (Inessa-wound Skin Appearance) No Abnormality -Temperature (Inessa-wound Skin No Abnormality Appearance) (Pt Warm) -Tenderness on Palpation (Inessa-wound No Skin Appearance) -Ulcer Cleansing Wound Cleanser -Anesthetic Used 4% Lidocaine Solution WC - Nurse 2 - General Ulcer CM Notes Start: 02/25/20 13:24 Freq: Status: Active Protocol: Activity Type Activity Date Activity User E-Sign Co-Sign Detail Recorded Client Recorded Date Recorded By Document 03/10/20 14:46 MW [id number] 03/10/20 14:50 MW 03/10/20 14:46 Wound Center Nurse 2 [Procedure/Treatment] #6 LEFT MEDIAL GROIN CLUSTER -Time 14:47 -Correct Patient Yes -Correct Side, Site, Position Yes -Correct Procedure Yes -Procedure Performed Yes -Type of Procedure Debridement -Clinical Debridement Subcutaneous -Tissue Removed Subcutaneous -Post Debridement (cm) - Length 2.0 -Post Debridement (cm) - Width 6.5 -Post Debridement (cm) - Depth 0.1 -Total Square (Post) (cm) 13.00 -Area of Debridement (cm) - Length 2.0 -Area of Debridement (cm) - Width 6.5 -Total Square (Area) (cm) 13.00 -Tunneling No -Undermining/Tunneling No -Circular Undermining No -Wound/Ulcer Outcome Not Healed -Ulcer Cleansing Rinsed/ Irrigated with Saline -Foul Odor after Cleansing No -Bioengineered Tissue No -Bleeding Controlled with Pressure -Offloading No -Treatment Response Procedure Tolerated Well -Debridement - Subq, 1st 20sq cm Yes #1- LEFT GROIN- POST OP -Time 14:47 -Correct Patient Yes -Correct Side, Site, Position Yes -Correct Procedure Yes -Procedure Performed Yes -Type of Procedure Debridement -Clinical Debridement Subcutaneous -Tissue Removed Subcutaneous -Post Debridement (cm) - Length 0.6 -Post Debridement (cm) - Width 1.0 -Post Debridement (cm) - Depth 0.2 -Total Square (Post) (cm) 0.60 -Area of Debridement (cm) - Length 0.6 -Area of Debridement (cm) - Width 1.0 -Total Square (Area) (cm) 0.60 -Tunneling No -Undermining/Tunneling No -Circular Undermining No -Wound/Ulcer Outcome Not Healed -Ulcer Cleansing Rinsed/ Irrigated with Saline -Foul Odor after Cleansing No -Bioengineered Tissue No -Bleeding Controlled with Pressure -Offloading No -Debridement - Subq, 1st 20sq cm No [See Physician Procedure note for Specifics] Pain Scale: 0-10 Numeric [Pain] -Is Patient Pain Free? Yes - Nurse 3 - General Ulcer D/C NN Start: 02/25/20 13:24 Freq: Status: Active Protocol: Activity Type Activity Date Activity User E-Sign Co-Sign Detail Recorded Client Recorded Date Recorded By Document 03/10/20 14:55 SILAS [id number] 03/10/20 14:56 SILAS 03/10/20 14:55 Wound Care Nurse 3 [Wound Dressing] #6 LEFT MEDIAL GROIN CLUSTER -Ulcer Cleansing Rinsed/ Irrigated with Saline -Foul Odor after Cleansing No -Primary Dressing Applied Aquacel AG 4x4 -Primary Dressing Covered/Secured Dry Gauze, with Secured with Tape -Aquacel AG 4x4 1 Pain Scale: 0-10 Numeric [Pain] -Is Patient Pain Free? Yes - Visit Discharge [Visit Discharge Information] -Discharge Condition Stable -Ambulatory Status Ambulatory -Transportation Private Auto Neurological: Neuro grossly intact Psych/Mental Status: Normal Affect, Appropriate, Alert and oriented to time, place, person, mood and affect Debridement Note Post-Debridement Measurements/Treatment WC - Nurse 2 - General Ulcer CM Notes Start: 02/25/20 13:24 Freq: Status: Active Protocol: Activity Type Activity Date Activity User E-Sign Co-Sign Detail Recorded Client Recorded Date Recorded By Document 02/25/20 13:59 MW [id number] 02/25/20 14:02 MW Document 03/03/20 14:35 MW [id number] 03/03/20 14:42 MW Document 03/10/20 14:46 MW [id number] 03/10/20 14:50 MW 02/25/20 03/03/20 03/10/20 13:59 14:35 14:46 Wound Center Nurse 2 #6 LEFT MEDIAL GROIN CLUSTER -Time 14:00 14:36 14:47 -Correct Patient Yes Yes Yes -Correct Side, Site, Position Yes Yes Yes -Correct Procedure Yes Yes Yes -Procedure Performed Yes Yes Yes -Type of Procedure Debridement Debridement Debridement -Clinical Debridement Subcutaneous Subcutaneous Subcutaneous -Tissue Removed Subcutaneous Subcutaneous Subcutaneous -Post Debridement (cm) - Length 0.3 0.3 2.0 -Post Debridement (cm) - Width 1.2 1.0 6.5 -Post Debridement (cm) - Depth 0.1 0.2 0.1 -Total Square (Post) (cm) 0.36 0.30 13.00 -Area of Debridement (cm) - Length 0.3 0.3 2.0 -Area of Debridement (cm) - Width 1.2 1.0 6.5 -Total Square (Area) (cm) 0.36 0.30 13.00 -Tunneling No No No -Undermining/Tunneling No No No -Circular Undermining No No No -Wound/Ulcer Outcome Not Healed Not Healed Not Healed -Ulcer Cleansing Rinsed/ Rinsed/ Rinsed/ Irrigated with Irrigated with Irrigated with Saline Saline Saline -Foul Odor after Cleansing No No No -Bioengineered Tissue No No No -Bleeding Controlled with Pressure Pressure Pressure -Offloading No No No -Treatment Response Procedure Procedure Procedure Tolerated Well Tolerated Well Tolerated Well -Debridement - Subq, 1st 20sq cm Yes Yes Yes #1- LEFT GROIN- POST OP -Time 14:01 14:40 14:47 -Correct Patient Yes Yes Yes -Correct Side, Site, Position Yes Yes Yes -Correct Procedure Yes Yes Yes -Procedure Performed Yes Yes Yes -Type of Procedure Debridement Debridement Debridement -Clinical Debridement Subcutaneous Subcutaneous Subcutaneous -Tissue Removed Subcutaneous Subcutaneous Subcutaneous -Post Debridement (cm) - Length 1.5 1.5 0.6 -Post Debridement (cm) - Width 7.8 8.0 1.0 -Post Debridement (cm) - Depth 0.6 0.1 0.2 -Total Square (Post) (cm) 11.70 12.00 0.60 -Area of Debridement (cm) - Length 1.5 1.5 0.6 -Area of Debridement (cm) - Width 7.8 8.0 1.0 -Total Square (Area) (cm) 11.70 12.00 0.60 -Tunneling No No No -Undermining/Tunneling No No No -Circular Undermining No No No -Wound/Ulcer Outcome Not Healed Not Healed Not Healed -Ulcer Cleansing Rinsed/ Rinsed/ Rinsed/ Irrigated with Irrigated with Irrigated with Saline Saline Saline -Foul Odor after Cleansing No No No -Bioengineered Tissue No Yes No -Type of Bioengineered Tissue PuraPly AM -Bleeding Controlled with Pressure Pressure Pressure -Offloading No No No -Treatment Response Procedure Tolerated Well -Debridement - Subq, 1st 20sq cm No No No -Apply Skin Sub - 1st 25 sq cm - Legs 1 -PuraPly AM (per sq cm) 12 Pain Scale: 0-10 Numeric Is Patient Pain Free? Yes Yes Yes WC - Nurse 3 - General Ulcer D/C NN Start: 02/25/20 13:24 Freq: Status: Active Protocol: Activity Type Activity Date Activity User E-Sign Co-Sign Detail Recorded Client Recorded Date Recorded By Document 02/25/20 14:24 MS [id number] 02/25/20 14:26 MS Document 03/03/20 14:57 RB [id number] 03/03/20 14:58 RB Document 03/10/20 14:55 KR [id number] 03/10/20 14:56 KR 02/25/20 03/03/20 03/10/20 14:24 14:57 14:55 Wound Care Nurse 3 #6 LEFT MEDIAL GROIN CLUSTER -Ulcer Cleansing Rinsed/ Rinsed/ Irrigated with Irrigated with Saline Saline -Foul Odor after Cleansing No No -Primary Dressing Applied Aquacel AG 4x4 Aquacel Extra Aquacel AG 4x4 -Primary Dressing Covered/Secured with Dry Gauze, Dry Gauze, Dry Gauze, Secured with Secured with Secured with Tape Tape Tape -Aquacel Extra 1 -Aquacel AG 4x4 1 1 #1- LEFT GROIN- POST OP -Ulcer Cleansing Rinsed/ Irrigated with Saline -Foul Odor after Cleansing No -Primary Dressing Applied Aquacel AG 4x4 -Other Dressing AQUACEL EXTRA -Primary Dressing Covered/Secured with Dry Gauze, Dry Gauze, Secured with Secured with Tape Tape -Aquacel AG 4x4 0 Treatment Response Procedure Tolerated Well Vital Signs Blood Pressure (90/60-120/80) 115/80 117/75 Blood Pressure Mean (mm Hg) 91 89 Source Monitor Monitor Position Sitting Semi-Fowlers Blood Pressure Location Right Arm Left Arm Pain Scale: 0-10 Numeric Is Patient Pain Free? Yes Yes Yes Teaching: Wound Center Dressing Your Wound -Person Taught Patient -Teaching Method Discussion, Demonstration -Response to teaching Verbalize understanding WC - Visit Discharge Discharge Condition Stable Stable Stable Ambulatory Status Ambulatory Ambulatory Ambulatory Transportation Private Auto Private Auto Private Auto Medication Reconcilliation completed & No No provided to patient/care provider Clinical Summary of Care Provided Yes Yes Wound debrided: Left groin ulcers Laterality: Left Type of Debridement: Excisional debridement Anesthesia Used: 5% Lidocaine Gel Depth: in the subcutaneous layer Percentage of wound debrided: 100 Instrument Used: 5mm curette Tissue Removed: Slough and devitalized tissue Severity: Fat Layer Exposed Amount of bleeding with debridement: Mild Bleeding Controlled with: Pressure Patient tolerated procedure well Assessment/Plan Active Problems Intertrigo (Chronic) abdominal wall skin crease intertrigo Panniculitis (Chronic) Abdominal panniculus (Chronic) Ulcer of left groin with fat layer exposed (Chronic) x 2 History of necrotising fasciitis (Chronic) Lymphedema of both lower extremities (Acute) Type 2 diabetes mellitus (Chronic) Morbid obesity (Chronic) Non-healing surgical wound of left groin (Chronic) x 3 Skin ulcer of abdominal wall with fat layer exposed (Chronic) left abdominal fold and left medial groin cluster ulcers Assessment: Nonhealing postsurgical wound left groin status post surgical excision of necrotizing fasciitis. Morbid obesity. Type 2 diabetes mellitus Plan: Debridement done as documented above. Procedure was well-tolerated.wound care will consist of applying Aquacel silver daily. May change twice daily depending on drainage. Optimal diabetes control again discussed. Advised to speak with his primary care physician about possibly starting on a GLP-1. Continue increased protein intake. His questions were answered and he was advised to call with any further questions or concerns. Follow-up in 1 week at wound healing center. Surgery still on hold. This note was generated with [employer] dictation software. It may contain incorrect words, spelling, and punctuation that were not noted in checking the note before signing. [id number]: [id number] Jessica subq tissue 20 sq cm/<
== END 2020-03-21 23:59 ==
LOC: WC 14:15
PROVIDERS: Family Provider Family Medicine; PCP Family Medicine; Visit Provider Nurse Practitioner Family
DX: T81.89XA Other complications of procedures, not elsewhere classified, initial encounter (principal); L98.492 Non-pressure chronic ulcer of skin of other sites with fat layer exposed; Y83.8 Other surgical procedures as the cause of abnormal reaction of the patient, or of later complication, without mention of misadventure at the time of the procedure; E11.40 Type 2 diabetes mellitus with diabetic neuropathy, unspecified; E11.65 Type 2 diabetes mellitus with hyperglycemia; I89.0 Lymphedema, not elsewhere classified; L30.4 Erythema intertrigo; E65 Localized adiposity; E66.01 Morbid (severe) obesity due to excess calories; Z79.4 Long term (current) use of insulin; Z79.899 Other long term (current) drug therapy; Z87.39 Personal history of other diseases of the musculoskeletal system and connective tissue
CPT/HCPCS: 11042; 15271; Q4196

== ENCOUNTER 2020-04-21 09:30 | Outpatient (RCR) | payer MEDICARE, MEDICAID, SELFPAY ==
[2020-03-22 00:18] VITALS: BP 125/64; PULSE 79; RESP 18; TEMP 36.5
[2020-03-24 13:42] VITALS: BP 112/63; PULSE 78; RESP 16; TEMP 35.5
[2020-03-24 14:24] VITALS: BP 112/63
--- NOTE | 2020-03-24 16:29 | PN.PCM_ITS ---
(1) Ulcer of left groin with fat layer exposed Status: Chronic Code(s): L98.492 - Non-pressure chronic ulcer of skin of other sites with fat layer exposed Comment: x 2 (2) History of necrotising fasciitis Status: Chronic Code(s): Z87.39 - Personal history of other diseases of the musculoskeletal system and connective tissue (3) Morbid obesity Status: Chronic Code(s): E66.01 - Morbid (severe) obesity due to excess calories (4) Non-healing surgical wound of left groin Status: Chronic Qualifiers: Code(s): T81.89XA - Other complications of procedures, not elsewhere classified, initial encounter Comment: x 3 (5) Panniculitis Status: Chronic Code(s): M79.3 - Panniculitis, unspecified (6) Skin ulcer of abdominal wall with fat layer exposed Status: Chronic Code(s): L98.492 - Non-pressure chronic ulcer of skin of other sites with fat layer exposed Comment: left abdominal fold and left medial groin cluster ulcers (7) Type 2 diabetes mellitus Status: Chronic Qualifiers: Code(s): E11.9 - Type 2 diabetes mellitus without complications Type of Wound Date of Service: 03/24/20 Chief Complaint: Nonhealing wound status post surgical excision of necrotizing fasciitis left groin History of Wound: 46-year-old white male who presents to the wound healing center today with complaint of left groin ulceration status post surgical excision of necrotizing fasciitis. He is a past medical history which is significant for that of type 2 diabetes mellitus, gout, diabetic neuropathy, schizophrenia, bilateral lymphedema, and schizophrenia. The patient states that what initially started as a pimple in his left groin progressed to necrotizing fasciitis and he had to have this surgically debrided in April 2017. He was admitted to [facility] for 2 weeks and then [facility] for 6 weeks afterwards. He states that the groin ulcer which extends to his left lower abdomen has been slowly improving and he has been doing daily Aquacel AG dressings with an ABD for the drainage. He does state that he has had 3 wound vacs in the past which were unable to be utilized due to the location of his wound. He denies any foul-smelling discharge or systemic signs of infection at this time. He is seen today as a courtesy visit for Gianni Neil, [employer]. He is tolerating dressings and denies any increase in drainage. He has been also using sweat beater to his groin area to prevent moisture. The patient otherwise denies any fever, chills, nausea, vomiting, shortness of breath, chest pain or pressure, palpitations, orthopnea, syncope or presyncopal episodes. Progress of Wound: No new concerns at this time. Scheduled surgery was put on hold due to poor diabetes control. He states that he has been monitoring his diet closely and his blood sugars are improved.Doing well with the silver cell. Patient completed antibiotics. - Physical Exam Vital Signs Temp Pulse Resp BP 95.9 F L 78 16 112/63 03/24/20 13:42 03/24/20 13:42 03/24/20 13:42 03/24/20 14:24 General: Alert, Oriented x3, Cooperative, No apparent distress HEENT: Atraumatic Oral: Moist Mucosa Lungs: Clear to auscultation, Normal air movement Cardiovascular: Regular rate Abdomen: Soft, Non Tender Extremities: No clubbing, No cyanosis, No edema Skin: Ulcer/ Wound - See nursing documentation, slough and devitalized tissue present, no signs of obvious infection at this time, slight maceration Wound Measurements and Assessment WC - Nurse 1 - General Ulcer Measurement Start: 03/24/20 13:40 Freq: Status: Active Protocol: Activity Type Activity Date Activity User E-Sign Co-Sign Detail Recorded Client Recorded Date Recorded By Document 03/24/20 13:42 [facility] [id number] 03/24/20 13:50 BM 03/24/20 13:42 Wound Center Nurse 1 [Ulcer Assessment] #6 LEFT MEDIAL GROIN CLUSTER -Combined with other wound No -Current Size (cm) - Length 0.3 -Current Size (cm) - Width 1.2 -Current Size (cm) - Depth 0.2 -Total Square Cm 0.36 -Photo Taken No -Epithelialization None Present -Tunneling No -Undermining/Tunneling No -Circular Undermining No -Exudate Amt Small -Exudate Type Serosanguineous -Wound Margin Thickened -Granulation Amt Large (67-100%) -Granulation Quality [place] -Slough/Fibrin Yes -Necrosis Amt Small (1-33%) -Necrotic Tissue Type Adherent Slough -Texture (Inessa-wound Skin Appearance) Assessed, Scarring -Moisture (Inessa-wound Skin Appearance Assessed ) -Color (Inessa-wound Skin Appearance) Assessed -Temperature (Inessa-wound Skin No Abnormality Appearance) (Pt Warm) -Tenderness on Palpation (Inessa-wound No Skin Appearance) -Ulcer Cleansing soapy water -Foul Odor after Cleansing No -Anesthetic Used 4% Lidocaine Solution #1- LEFT GROIN- POST OP -Combined with other wound No -Current Size (cm) - Length 1.2 -Current Size (cm) - Width 7.3 -Current Size (cm) - Depth 0.2 -Total Square Cm 8.76 -Photo Taken No -Epithelialization None Present -Tunneling No -Undermining/Tunneling No -Circular Undermining No -Exudate Amt Medium -Exudate Type Serosanguineous -Wound Margin Thickened -Granulation Amt Large (67-100%) -Granulation Quality [place] -Slough/Fibrin Yes -Necrosis Amt Small (1-33%) -Necrotic Tissue Type Adherent Slough -Texture (Inessa-wound Skin Appearance) Assessed, Scarring -Moisture (Inessa-wound Skin Appearance Assessed ) -Color (Inessa-wound Skin Appearance) Assessed -Temperature (Inessa-wound Skin No Abnormality Appearance) (Pt Warm) -Tenderness on Palpation (Inessa-wound No Skin Appearance) -Ulcer Cleansing soapy water -Foul Odor after Cleansing No -Anesthetic Used 4% Lidocaine Solution WC - Nurse 2 - General Ulcer CM Notes Start: 03/24/20 13:40 Freq: Status: Active Protocol: Activity Type Activity Date Activity User E-Sign Co-Sign Detail Recorded Client Recorded Date Recorded By Document 03/24/20 14:02 MW [id number] 03/24/20 14:06 MW 03/24/20 14:02 Wound Center Nurse 2 [Procedure/Treatment] #6 LEFT MEDIAL GROIN CLUSTER -Time 14:02 -Correct Patient Yes -Correct Side, Site, Position Yes -Correct Procedure Yes -Procedure Performed Yes -Type of Procedure Debridement -Clinical Debridement Subcutaneous -Tissue Removed Subcutaneous -Post Debridement (cm) - Length 0.4 -Post Debridement (cm) - Width 1.0 -Post Debridement (cm) - Depth 0.1 -Total Square (Post) (cm) 0.40 -Area of Debridement (cm) - Length 0.4 -Area of Debridement (cm) - Width 1.0 -Total Square (Area) (cm) 0.40 -Tunneling No -Undermining/Tunneling No -Circular Undermining No -Wound/Ulcer Outcome Not Healed -Ulcer Cleansing Rinsed/ Irrigated with Saline -Foul Odor after Cleansing No -Bioengineered Tissue No -Bleeding Controlled with Pressure -Offloading No -Treatment Response Procedure Tolerated Well -Debridement - Subq, 1st 20sq cm Yes #1- LEFT GROIN- POST OP -Time 14:02 -Correct Patient Yes -Correct Side, Site, Position Yes -Correct Procedure Yes -Procedure Performed Yes -Type of Procedure Debridement -Clinical Debridement Subcutaneous -Tissue Removed Subcutaneous -Post Debridement (cm) - Length 1.4 -Post Debridement (cm) - Width 7.0 -Post Debridement (cm) - Depth 0.1 -Total Square (Post) (cm) 9.80 -Area of Debridement (cm) - Length 1.4 -Area of Debridement (cm) - Width 7.0 -Total Square (Area) (cm) 9.80 -Tunneling No -Undermining/Tunneling No -Circular Undermining No -Wound/Ulcer Outcome Not Healed -Ulcer Cleansing Rinsed/ Irrigated with Saline -Foul Odor after Cleansing No -Bioengineered Tissue No -Bleeding Controlled with Pressure -Offloading No -Debridement - Subq, 1st 20sq cm No [See Physician Procedure note for Specifics] Pain Scale: 0-10 Numeric [Pain] -Is Patient Pain Free? Yes WC - Nurse 3 - General Ulcer D/C NN Start: 03/24/20 13:40 Freq: Status: Active Protocol: Activity Type Activity Date Activity User E-Sign Co-Sign Detail Recorded Client Recorded Date Recorded By Document 03/24/20 14:24 [id number] 03/24/20 14:26 03/24/20 14:24 Wound Care Nurse 3 [Wound Dressing] #6 LEFT MEDIAL GROIN CLUSTER -Ulcer Cleansing Rinsed/ Irrigated with Saline -Primary Dressing Applied Aquacel AG 4x4 -Primary Dressing Covered/Secured Dry Gauze, with Secured with Tape -Aquacel AG 4x4 1 #1- LEFT GROIN- POST OP -Ulcer Cleansing Rinsed/ Irrigated with Saline -Other Dressing aquacel ag -Primary Dressing Covered/Secured Dry Gauze, with Secured with Tape [Post Procedure Tolerated] -Treatment Response Procedure Tolerated Well Vital Signs [Blood Pressure] -Blood Pressure (90/60-120/80) 112/63 -Blood Pressure Mean (mm Hg) 79 -Source Monitor -Position Semi-Fowlers -Blood Pressure Location Left Arm Pain Scale: 0-10 Numeric [Pain] -Is Patient Pain Free? Yes WC - Visit Discharge [Visit Discharge Information] -Discharge Condition Stable -Ambulatory Status Ambulatory -Transportation Private Auto -Medication Reconcilliation completed No & provided to patient/care provider -Clinical Summary of Care Provided Yes Neurological: Neuro grossly intact Psych/Mental Status: Normal Affect, Appropriate, Alert and oriented to time, place, person, mood and affect Debridement Note Post-Debridement Measurements/Treatment WC - Nurse 2 - General Ulcer CM Notes Start: 03/24/20 13:40 Freq: Status: Active Protocol: Activity Type Activity Date Activity User E-Sign Co-Sign Detail Recorded Client Recorded Date Recorded By Document 03/24/20 14:02 MW [id number] 03/24/20 14:06 MW 03/24/20 14:02 Wound Center Nurse 2 #6 LEFT MEDIAL GROIN CLUSTER -Time 14:02 -Correct Patient Yes -Correct Side, Site, Position Yes -Correct Procedure Yes -Procedure Performed Yes -Type of Procedure Debridement -Clinical Debridement Subcutaneous -Tissue Removed Subcutaneous -Post Debridement (cm) - Length 0.4 -Post Debridement (cm) - Width 1.0 -Post Debridement (cm) - Depth 0.1 -Total Square (Post) (cm) 0.40 -Area of Debridement (cm) - Length 0.4 -Area of Debridement (cm) - Width 1.0 -Total Square (Area) (cm) 0.40 -Tunneling No -Undermining/Tunneling No -Circular Undermining No -Wound/Ulcer Outcome Not Healed -Ulcer Cleansing Rinsed/ Irrigated with Saline -Foul Odor after Cleansing No -Bioengineered Tissue No -Bleeding Controlled with Pressure -Offloading No -Treatment Response Procedure Tolerated Well -Debridement - Subq, 1st 20sq cm Yes #1- LEFT GROIN- POST OP -Time 14:02 -Correct Patient Yes -Correct Side, Site, Position Yes -Correct Procedure Yes -Procedure Performed Yes -Type of Procedure Debridement -Clinical Debridement Subcutaneous -Tissue Removed Subcutaneous -Post Debridement (cm) - Length 1.4 -Post Debridement (cm) - Width 7.0 -Post Debridement (cm) - Depth 0.1 -Total Square (Post) (cm) 9.80 -Area of Debridement (cm) - Length 1.4 -Area of Debridement (cm) - Width 7.0 -Total Square (Area) (cm) 9.80 -Tunneling No -Undermining/Tunneling No -Circular Undermining No -Wound/Ulcer Outcome Not Healed -Ulcer Cleansing Rinsed/ Irrigated with Saline -Foul Odor after Cleansing No -Bioengineered Tissue No -Bleeding Controlled with Pressure -Offloading No -Debridement - Subq, 1st 20sq cm No Pain Scale: 0-10 Numeric Is Patient Pain Free? Yes - Nurse 3 - General Ulcer D/C NN Start: 03/24/20 13:40 Freq: Status: Active Protocol: Activity Type Activity Date Activity User E-Sign Co-Sign Detail Recorded Client Recorded Date Recorded By Document 03/24/20 14:24 [id number] 03/24/20 14:26 RB 03/24/20 14:24 Wound Care Nurse 3 #6 LEFT MEDIAL GROIN CLUSTER -Ulcer Cleansing Rinsed/ Irrigated with Saline -Primary Dressing Applied Aquacel AG 4x4 -Primary Dressing Covered/Secured with Dry Gauze, Secured with Tape -Aquacel AG 4x4 1 #1- LEFT GROIN- POST OP -Ulcer Cleansing Rinsed/ Irrigated with Saline -Other Dressing aquacel ag -Primary Dressing Covered/Secured with Dry Gauze, Secured with Tape Treatment Response Procedure Tolerated Well Vital Signs Blood Pressure (90/60-120/80) 112/63 Blood Pressure Mean (mm Hg) 79 Source Monitor Position Semi-Fowlers Blood Pressure Location Left Arm Pain Scale: 0-10 Numeric Is Patient Pain Free? Yes - Visit Discharge Discharge Condition Stable Ambulatory Status Ambulatory Transportation Private Auto Medication Reconcilliation completed & No provided to patient/care provider Clinical Summary of Care Provided Yes Wound debrided: Left groin ulcers Laterality: Left Type of Debridement: Excisional debridement Anesthesia Used: 5% Lidocaine Gel Depth: in the subcutaneous layer Percentage of wound debrided: 100 Instrument Used: 5mm curette Tissue Removed: Slough and devitalized tissue Severity: Fat Layer Exposed Amount of bleeding with debridement: Mild Bleeding Controlled with: Pressure Patient tolerated procedure well Assessment/Plan Assessment: Nonhealing postsurgical wound left groin status post surgical excision of necrotizing fasciitis. Morbid obesity. Type 2 diabetes mellitus Plan: Debridement done as documented above. Procedure was well-tolerated.wound care will consist of applying Aquacel silver daily. May change twice daily depending on drainage. Optimal diabetes control again discussed. Advised to speak with his primary care physician about possibly starting on a GLP-1. Continue increased protein intake. His questions were answered and he was advised to call with any further questions or concerns. Follow-up in 1 week at wound healing center. Surgery still on hold. This note was generated with [employer] dictation software. It may contain incorrect words, spelling, and pun ctuation that were not noted in checking the note before signing. [id number]: [id number] Jessica subq tissue 20 sq cm/<
[2020-03-31 12:56] VITALS: BP 108/65; PULSE 89; RESP 18; TEMP 36.1
[2020-03-31 13:26] VITALS: BP 110/65
--- NOTE | 2020-03-31 15:47 | PCM.WC.PN ---
(1) Ulcer of left groin with fat layer exposed Status: Chronic Code(s): L98.492 - Non-pressure chronic ulcer of skin of other sites with fat layer exposed Comment: x 2 (2) History of necrotising fasciitis Status: Chronic Code(s): Z87.39 - Personal history of other diseases of the musculoskeletal system and connective tissue (3) Morbid obesity Status: Chronic Code(s): E66.01 - Morbid (severe) obesity due to excess calories (4) Non-healing surgical wound of left groin Status: Chronic Qualifiers: Code(s): T81.89XA - Other complications of procedures, not elsewhere classified, initial encounter Comment: x 3 (5) Panniculitis Status: Chronic Code(s): M79.3 - Panniculitis, unspecified (6) Skin ulcer of abdominal wall with fat layer exposed Status: Chronic Code(s): L98.492 - Non-pressure chronic ulcer of skin of other sites with fat layer exposed Comment: left abdominal fold and left medial groin cluster ulcers (7) Type 2 diabetes mellitus Status: Chronic Qualifiers: Code(s): E11.9 - Type 2 diabetes mellitus without complications Type of Wound Date of Service: 03/31/20 Chief Complaint: Nonhealing wound status post surgical excision of necrotizing fasciitis left groin History of Wound: 46-year-old white male who presents to the wound healing center today with complaint of left groin ulceration status post surgical excision of necrotizing fasciitis. He is a past medical history which is significant for that of type 2 diabetes mellitus, gout, diabetic neuropathy, schizophrenia, bilateral lymphedema, and schizophrenia. The patient states that what initially started as a pimple in his left groin progressed to necrotizing fasciitis and he had to have this surgically debrided in April 2017. He was admitted to [facility] for 2 weeks and then [facility] for 6 weeks afterwards. He states that the groin ulcer which extends to his left lower abdomen has been slowly improving and he has been doing daily Aquacel AG dressings with an ABD for the drainage. He does state that he has had 3 wound vacs in the past which were unable to be utilized due to the location of his wound. He denies any foul-smelling discharge or systemic signs of infection at this time. He is seen today as a courtesy visit for Gianni Neil, [employer]. He is tolerating dressings and denies any increase in drainage. He has been also using sweat beater to his groin area to prevent moisture. The patient otherwise denies any fever, chills, nausea, vomiting, shortness of breath, chest pain or pressure, palpitations, orthopnea, syncope or presyncopal episodes. Progress of Wound: No new concerns at this time. Scheduled surgery was put on hold due to poor diabetes control. He states that he has been monitoring his diet closely and his blood sugars are improved.Doing well with the silver cell. Patient completed antibiotics. - Physical Exam Vital Signs Temp Pulse Resp BP 97 F L 89 18 110/65 03/31/20 12:56 03/31/20 12:56 03/31/20 12:56 03/31/20 13:26 General: Alert, Oriented x3, Cooperative, No apparent distress HEENT: Atraumatic Oral: Moist Mucosa Neck: Supple Lungs: Clear to auscultation, Normal air movement Cardiovascular: Regular rate Abdomen: Soft, Non Tender Extremities: No clubbing, No cyanosis, Edema - Generalized bilateral lower extremity edema Skin: Ulcer/ Wound - Ulcerations with adherent slough, no signs of obvious infection at this time Wound Measurements and Assessment WC - Nurse 1 - General Ulcer Measurement Start: 03/24/20 13:40 Freq: Status: Active Protocol: Activity Type Activity Date Activity User E-Sign Co-Sign Detail Recorded Client Recorded Date Recorded By Document 03/31/20 12:56 [id number] 03/31/20 12:58 RB 03/31/20 12:56 Wound Center Nurse 1 [Ulcer Assessment] #6 LEFT MEDIAL GROIN CLUSTER -Combined with other wound No -Current Size (cm) - Length 0.5 -Current Size (cm) - Width 0.7 -Current Size (cm) - Depth 0.1 -Total Square Cm 0.35 -Tunneling No -Undermining/Tunneling No -Circular Undermining No -Exudate Amt Small -Exudate Type Serosanguineous -Wound Margin Thickened & Rolled Under -Granulation Amt Medium (34-66%) -Granulation Quality [place] -Slough/Fibrin Yes -Necrosis Amt Medium (34-66%) -Necrotic Tissue Type Adherent Slough -Structure Exposed N/A -Texture (Inessa-wound Skin Appearance) Assessed, Scarring -Moisture (Inessa-wound Skin Appearance Assessed ) -Color (Inessa-wound Skin Appearance) Assessed -Temperature (Inessa-wound Skin No Abnormality Appearance) (Pt Warm) -Tenderness on Palpation (Inessa-wound No Skin Appearance) -Ulcer Cleansing Wound Cleanser -Foul Odor after Cleansing No -Anesthetic Used 4% Lidocaine Solution #1- LEFT GROIN- POST OP -Combined with other wound No -Current Size (cm) - Length 1 -Current Size (cm) - Width 7.5 -Current Size (cm) - Depth 0.3 -Total Square Cm 7.5 -Tunneling No -Undermining/Tunneling No -Circular Undermining No -Exudate Amt Medium -Exudate Type Serosanguineous -Wound Margin Thickened & Rolled Under -Granulation Amt Medium (34-66%) -Granulation Quality [place] -Slough/Fibrin Yes -Necrosis Amt Small (1-33%) -Necrotic Tissue Type Adherent Slough -Structure Exposed N/A -Texture (Inessa-wound Skin Appearance) Assessed, Scarring -Moisture (Inessa-wound Skin Appearance Assessed ) -Color (Inessa-wound Skin Appearance) Assessed -Temperature (Inessa-wound Skin No Abnormality Appearance) (Pt Warm) -Tenderness on Palpation (Inessa-wound No Skin Appearance) -Ulcer Cleansing Wound Cleanser -Foul Odor after Cleansing No -Anesthetic Used 4% Lidocaine Solution WC - Nurse 2 - General Ulcer CM Notes Start: 03/24/20 13:40 Freq: Status: Active Protocol: Activity Type Activity Date Activity User E-Sign Co-Sign Detail Recorded Client Recorded Date Recorded By Document 03/31/20 13:12 MW [id number] 03/31/20 13:16 MW 03/31/20 13:12 Wound Center Nurse 2 [Procedure/Treatment] #6 LEFT MEDIAL GROIN CLUSTER -Time 13:15 -Correct Patient Yes -Correct Side, Site, Position Yes -Correct Procedure Yes -Procedure Performed Yes -Type of Procedure Debridement -Clinical Debridement Subcutaneous -Tissue Removed Subcutaneous -Post Debridement (cm) - Length 0.3 -Post Debridement (cm) - Width 0.5 -Post Debridement (cm) - Depth 0.1 -Total Square (Post) (cm) 0.15 -Area of Debridement (cm) - Length 0.3 -Area of Debridement (cm) - Width 0.5 -Total Square (Area) (cm) 0.15 -Tunneling No -Undermining/Tunneling No -Circular Undermining No -Wound/Ulcer Outcome Not Healed -Ulcer Cleansing Rinsed/ Irrigated with Saline -Foul Odor after Cleansing No -Bioengineered Tissue No -Bleeding Controlled with Pressure -Offloading No -Debridement - Subq, 1st 20sq cm Yes #1- LEFT GROIN- POST OP -Time 13:15 -Correct Patient Yes -Correct Side, Site, Position Yes -Correct Procedure Yes -Procedure Performed Yes -Type of Procedure Debridement -Clinical Debridement Subcutaneous -Tissue Removed Subcutaneous -Post Debridement (cm) - Length 1.4 -Post Debridement (cm) - Width 7.3 -Post Debridement (cm) - Depth 0.1 -Total Square (Post) (cm) 10.22 -Area of Debridement (cm) - Length 1.4 -Area of Debridement (cm) - Width 7.3 -Total Square (Area) (cm) 10.22 -Tunneling No -Undermining/Tunneling No -Circular Undermining No -Wound/Ulcer Outcome Not Healed -Ulcer Cleansing Rinsed/ Irrigated with Saline -Foul Odor after Cleansing No -Bioengineered Tissue No -Bleeding Controlled with Pressure -Offloading No -Treatment Response Procedure Tolerated Well -Debridement - Subq, 1st 20sq cm No [See Physician Procedure note for Specifics] Pain Scale: 0-10 Numeric [Pain] -Is Patient Pain Free? Yes WC - Nurse 3 - General Ulcer D/C NN Start: 03/24/20 13:40 Freq: Status: Active Protocol: Activity Type Activity Date Activity User E-Sign Co-Sign Detail Recorded Client Recorded Date Recorded By Document 03/31/20 13:26 [id number] 03/31/20 13:27 03/31/20 13:26 Wound Care Nurse 3 [Wound Dressing] #6 LEFT MEDIAL GROIN CLUSTER -Ulcer Cleansing Wound Cleanser -Primary Dressing Applied Aquacel AG 4x4 -Primary Dressing Covered/Secured Dry Gauze, with Secured with Tape -Aquacel AG 4x4 1 #1- LEFT GROIN- POST OP -Ulcer Cleansing Wound Cleanser -Other Dressing AQUACEL AG -Primary Dressing Covered/Secured Dry Gauze, with Secured with Tape Vital Signs [Blood Pressure] -Blood Pressure (90/60-120/80) 110/65 -Blood Pressure Mean (mm Hg) 80 -Source Monitor -Position Semi-Fowlers -Blood Pressure Location Left Arm Pain Scale: 0-10 Numeric [Pain] -Is Patient Pain Free? Yes Teaching: Wound Center [Wound Center Education] (Items with an * have Printed Materials Available- Please identify what is given to patient under the Teaching materials given to patient and caregiver Section. Dressing Your Wound -Person Taught Patient -Teaching Method Discussion, Demonstration -Response to teaching Verbalize understanding WC - Visit Discharge [Visit Discharge Information] -Discharge Condition Stable -Ambulatory Status Ambulatory -Transportation Private Auto -Medication Reconcilliation completed No & provided to patient/care provider -Clinical Summary of Care Provided Yes Neurological: Neuro grossly intact Psych/Mental Status: Normal Affect, Appropriate, Alert and oriented to time, place, person, mood and affect Debridement Note Post-Debridement Measurements/Treatment WC - Nurse 2 - General Ulcer CM Notes Start: 03/24/20 13:40 Freq: Status: Active Protocol: Activity Type Activity Date Activity User E-Sign Co-Sign Detail Recorded Client Recorded Date Recorded By Document 03/24/20 14:02 MW [id number] 03/24/20 14:06 MW Document 03/31/20 13:12 MW [id number] 03/31/20 13:16 MW 03/24/20 03/31/20 14:02 13:12 Wound Center Nurse 2 #6 LEFT MEDIAL GROIN CLUSTER -Time 14:02 13:15 -Correct Patient Yes Yes -Correct Side, Site, Position Yes Yes -Correct Procedure Yes Yes -Procedure Performed Yes Yes -Type of Procedure Debridement Debridement -Clinical Debridement Subcutaneous Subcutaneous -Tissue Removed Subcutaneous Subcutaneous -Post Debridement (cm) - Length 0.4 0.3 -Post Debridement (cm) - Width 1.0 0.5 -Post Debridement (cm) - Depth 0.1 0.1 -Total Square (Post) (cm) 0.40 0.15 -Area of Debridement (cm) - Length 0.4 0.3 -Area of Debridement (cm) - Width 1.0 0.5 -Total Square (Area) (cm) 0.40 0.15 -Tunneling No No -Undermining/Tunneling No No -Circular Undermining No No -Wound/Ulcer Outcome Not Healed Not Healed -Ulcer Cleansing Rinsed/ Rinsed/ Irrigated with Irrigated with Saline Saline -Foul Odor after Cleansing No No -Bioengineered Tissue No No -Bleeding Controlled with Pressure Pressure -Offloading No No -Treatment Response Procedure Tolerated Well -Debridement - Subq, 1st 20sq cm Yes Yes #1- LEFT GROIN- POST OP -Time 14:02 13:15 -Correct Patient Yes Yes -Correct Side, Site, Position Yes Yes -Correct Procedure Yes Yes -Procedure Performed Yes Yes -Type of Procedure Debridement Debridement -Clinical Debridement Subcutaneous Subcutaneous -Tissue Removed Subcutaneous Subcutaneous -Post Debridement (cm) - Length 1.4 1.4 -Post Debridement (cm) - Width 7.0 7.3 -Post Debridement (cm) - Depth 0.1 0.1 -Total Square (Post) (cm) 9.80 10.22 -Area of Debridement (cm) - Length 1.4 1.4 -Area of Debridement (cm) - Width 7.0 7.3 -Total Square (Area) (cm) 9.80 10.22 -Tunneling No No -Undermining/Tunneling No No -Circular Undermining No No -Wound/Ulcer Outcome Not Healed Not Healed -Ulcer Cleansing Rinsed/ Rinsed/ Irrigated with Irrigated with Saline Saline -Foul Odor after Cleansing No No -Bioengineered Tissue No No -Bleeding Controlled with Pressure Pressure -Offloading No No -Treatment Response Procedure Tolerated Well -Debridement - Subq, 1st 20sq cm No No Pain Scale: 0-10 Numeric Is Patient Pain Free? Yes Yes - Nurse 3 - General Ulcer D/C NN Start: 03/24/20 13:40 Freq: Status: Active Protocol: Activity Type Activity Date Activity User E-Sign Co-Sign Detail Recorded Client Recorded Date Recorded By Document 03/24/20 14:24 RB [id number] 03/24/20 14:26 RB Document 03/31/20 13:26 RB [id number] 03/31/20 13:27 RB 03/24/20 03/31/20 14:24 13:26 Wound Care Nurse 3 #6 LEFT MEDIAL GROIN CLUSTER -Ulcer Cleansing Rinsed/ Wound Cleanser Irrigated with Saline -Primary Dressing Applied Aquacel AG 4x4 Aquacel AG 4x4 -Primary Dressing Covered/Secured with Dry Gauze, Dry Gauze, Secured with Secured with Tape Tape -Aquacel AG 4x4 1 1 #1- LEFT GROIN- POST OP -Ulcer Cleansing Rinsed/ Wound Cleanser Irrigated with Saline -Other Dressing aquacel ag AQUACEL AG -Primary Dressing Covered/Secured with Dry Gauze, Dry Gauze, Secured with Secured with Tape Tape Treatment Response Procedure Tolerated Well Vital Signs Blood Pressure (90/60-120/80) 112/63 110/65 Blood Pressure Mean (mm Hg) 79 80 Source Monitor Monitor Position Semi-Fowlers Semi-Fowlers Blood Pressure Location Left Arm Left Arm Pain Scale: 0-10 Numeric Is Patient Pain Free? Yes Yes Teaching: Wound Center Dressing Your Wound -Person Taught Patient -Teaching Method Discussion, Demonstration -Response to teaching Verbalize understanding WC - Visit Discharge Discharge Condition Stable Stable Ambulatory Status Ambulatory Ambulatory Transportation Private Auto Private Auto Medication Reconcilliation completed & No No provided to patient/care provider Clinical Summary of Care Provided Yes Yes Wound debrided: Left groin postsurgical ulcers Laterality: Left Type of Debridement: Excisional debridement Anesthesia Used: 5% Lidocaine Gel Depth: in the subcutaneous layer Percentage of wound debrided: 100 Instrument Used: 3mm curette Tissue Removed: Slough and devitalized tissue Severity: Fat Layer Exposed Amount of bleeding with debridement: Mild Bleeding Controlled with: Pressure Patient tolerated procedure well Assessment/Plan Active Problems Panniculitis (Chronic) Ulcer of left groin with fat layer exposed (Chronic) x 2 History of necrotising fasciitis (Chronic) Type 2 diabetes mellitus (Chronic) Morbid obesity (Chronic) Non-healing surgical wound of left groin (Chronic) x 3 Skin ulcer of abdominal wall with fat layer exposed (Chronic) left abdominal fold and left medial groin cluster ulcers Assessment: Nonhealing postsurgical wound left groin status post surgical excision of necrotizing fasciitis. Morbid obesity. Type 2 diabetes mellitus Plan: Debridement done as documented above. Procedure was well-tolerated.wound care will consist of applying Aquacel silver daily. May change twice daily depending on drainage. Optimal diabetes control again discussed. Advised to speak with his primary care physician about possibly starting on a GLP-1. Continue increased protein intake. His questions were answered and he was advised to call with any further questions or concerns. Follow-up in 1 week at wound healing center. Surgery still on hold. This note was generated with [employer] software. It may contain incorrect words, spelling, and punctuation that were not noted in checking the note before signing. [id number]: [id number] Jessica subq tissue 20 sq cm/<
[2020-04-07 13:04] VITALS: BP 116/54; PULSE 71; TEMP 36.1
--- NOTE | 2020-04-07 13:37 | PCM.WC.PN ---
(1) Ulcer of left groin with fat layer exposed Status: Chronic Code(s): L98.492 - Non-pressure chronic ulcer of skin of other sites with fat layer exposed Comment: x 2 (2) History of necrotising fasciitis Status: Chronic Code(s): Z87.39 - Personal history of other diseases of the musculoskeletal system and connective tissue (3) Morbid obesity Status: Chronic Code(s): E66.01 - Morbid (severe) obesity due to excess calories (4) Non-healing surgical wound of left groin Status: Chronic Qualifiers: Code(s): T81.89XA - Other complications of procedures, not elsewhere classified, initial encounter Comment: x 3 (5) Panniculitis Status: Chronic Code(s): M79.3 - Panniculitis, unspecified (6) Skin ulcer of abdominal wall with fat layer exposed Status: Chronic Code(s): L98.492 - Non-pressure chronic ulcer of skin of other sites with fat layer exposed Comment: left abdominal fold and left medial groin cluster ulcers (7) Type 2 diabetes mellitus Status: Chronic Qualifiers: Code(s): E11.9 - Type 2 diabetes mellitus without complications Type of Wound Date of Service: 04/07/20 Chief Complaint: Nonhealing wound status post surgical excision of necrotizing fasciitis left groin History of Wound: 46-year-old white male who presents to the wound healing center today with complaint of left groin ulceration status post surgical excision of necrotizing fasciitis. He is a past medical history which is significant for that of type 2 diabetes mellitus, gout, diabetic neuropathy, schizophrenia, bilateral lymphedema, and schizophrenia. The patient states that what initially started as a pimple in his left groin progressed to necrotizing fasciitis and he had to have this surgically debrided in April 2017. He was admitted to [facility] for 2 weeks and then [facility] for 6 weeks afterwards. He states that the groin ulcer which extends to his left lower abdomen has been slowly improving and he has been doing daily Aquacel AG dressings with an ABD for the drainage. He does state that he has had 3 wound vacs in the past which were unable to be utilized due to the location of his wound. He denies any foul-smelling discharge or systemic signs of infection at this time. He is seen today as a courtesy visit for Gianni Neil, [employer]. He is tolerating dressings and denies any increase in drainage. He has been also using sweat beater to his groin area to prevent moisture. The patient otherwise denies any fever, chills, nausea, vomiting, shortness of breath, chest pain or pressure, palpitations, orthopnea, syncope or presyncopal episodes. Progress of Wound: stable,No new concerns at this time. Scheduled surgery was put on hold due to poor diabetes control. He states that he has been monitoring his diet closely and his blood sugars are improved. Repeat A1C in April 2020. Doing well with the silver cell. Patient completed antibiotics. - Physical Exam Vital Signs Temp Pulse Resp BP 97.0 F L 71 18 116/54 L 04/07/20 13:04 04/07/20 13:04 03/31/20 12:56 04/07/20 13:04 General: Alert, Oriented x3, Cooperative, No apparent distress HEENT: Atraumatic Oral: Moist Mucosa Lungs: Clear to auscultation Cardiovascular: Regular rate Abdomen: Soft, Non Tender Extremities: No clubbing, No cyanosis, Edema - BLLE edema Skin: Ulcer/ Wound - see nursing documentation Wound Measurements and Assessment WC - Nurse 1 - General Ulcer Measurement Start: 03/24/20 13:40 Freq: Status: Active Protocol: Activity Type Activity Date Activity User E-Sign Co-Sign Detail Recorded Client Recorded Date Recorded By Document 04/07/20 13:04 SILAS [id number] 04/07/20 13:15 SILAS 04/07/20 13:04 Wound Center Nurse 1 [Ulcer Assessment] #6 LEFT MEDIAL GROIN CLUSTER -Current Size (cm) - Length 6.5 -Current Size (cm) - Width 1 -Current Size (cm) - Depth 0.4 -Total Square Cm 6.5 -Exudate Amt Medium -Exudate Type Serosanguineous -Wound Margin Distinct, Outline Attached -Granulation Amt Medium (34-66%) -Granulation Quality Red -Necrosis Amt Medium (34-66%) -Necrotic Tissue Type Adherent Slough -Texture (Inessa-wound Skin Appearance) Assessed, Scarring -Moisture (Inessa-wound Skin Appearance No Abnormality, ) Assessed -Color (Inessa-wound Skin Appearance) No Abnormality, Assessed -Temperature (Inessa-wound Skin No Abnormality Appearance) (Pt Warm) -Tenderness on Palpation (Inessa-wound No Skin Appearance) -Ulcer Cleansing Rinsed/ Irrigated with Saline -Foul Odor after Cleansing No -Anesthetic Used 4% Lidocaine Solution #1- LEFT GROIN- POST OP -Current Size (cm) - Length 0.5 -Current Size (cm) - Width 0.5 -Current Size (cm) - Depth 0.1 -Total Square Cm 0.25 -Exudate Amt Small -Exudate Type Serosanguineous -Wound Margin Distinct, Outline Attached -Granulation Amt Medium (34-66%) -Granulation Quality Red -Necrosis Amt Medium (34-66%) -Necrotic Tissue Type Adherent Slough -Texture (Inessa-wound Skin Appearance) Assessed, Scarring -Moisture (Inessa-wound Skin Appearance No Abnormality, ) Assessed -Color (Inessa-wound Skin Appearance) No Abnormality, Assessed -Temperature (Inessa-wound Skin No Abnormality Appearance) (Pt Warm) -Tenderness on Palpation (Inessa-wound No Skin Appearance) -Ulcer Cleansing Rinsed/ Irrigated with Saline -Foul Odor after Cleansing No -Anesthetic Used 4% Lidocaine Solution WC - Nurse 2 - General Ulcer CM Notes Start: 03/24/20 13:40 Freq: Status: Active Protocol: Activity Type Activity Date Activity User E-Sign Co-Sign Detail Recorded Client Recorded Date Recorded By Document 04/07/20 13:27 MW [id number] 04/07/20 13:29 MW 04/07/20 13:27 Wound Center Nurse 2 [Procedure/Treatment] #6 LEFT MEDIAL GROIN CLUSTER -Time 13:27 -Correct Patient Yes -Correct Side, Site, Position Yes -Correct Procedure Yes -Procedure Performed Yes -Type of Procedure Debridement -Clinical Debridement Subcutaneous -Tissue Removed Subcutaneous -Post Debridement (cm) - Length 0.3 -Post Debridement (cm) - Width 0.3 -Post Debridement (cm) - Depth 0.1 -Total Square (Post) (cm) 0.09 -Area of Debridement (cm) - Length 0.3 -Area of Debridement (cm) - Width 0.3 -Total Square (Area) (cm) 0.09 -Tunneling No -Undermining/Tunneling No -Circular Undermining No -Wound/Ulcer Outcome Not Healed -Ulcer Cleansing Rinsed/ Irrigated with Saline -Foul Odor after Cleansing No -Bioengineered Tissue No -Bleeding Controlled with Pressure -Offloading No -Treatment Response Procedure Tolerated Well -Debridement - Subq, 1st 20sq cm Yes #1- LEFT GROIN- POST OP -Time 13:27 -Correct Patient Yes -Correct Side, Site, Position Yes -Correct Procedure Yes -Procedure Performed Yes -Type of Procedure Debridement -Clinical Debridement Subcutaneous -Tissue Removed Subcutaneous -Post Debridement (cm) - Length 1.5 -Post Debridement (cm) - Width 7.0 -Post Debridement (cm) - Depth 0.1 -Total Square (Post) (cm) 10.50 -Area of Debridement (cm) - Length 1.5 -Area of Debridement (cm) - Width 7.0 -Total Square (Area) (cm) 10.50 -Tunneling No -Undermining/Tunneling No -Circular Undermining No -Wound/Ulcer Outcome Not Healed -Ulcer Cleansing Rinsed/ Irrigated with Saline -Foul Odor after Cleansing No -Bioengineered Tissue No -Bleeding Controlled with Pressure -Offloading No -Treatment Response Procedure Tolerated Well -Debridement - Subq, 1st 20sq cm No [See Physician Procedure note for Specifics] Pain Scale: 0-10 Numeric [Pain] -Is Patient Pain Free? Yes WC - Nurse 3 - General Ulcer D/C NN Start: 03/24/20 13:40 Freq: Status: Active Protocol: Activity Type Activity Date Activity User E-Sign Co-Sign Detail Recorded Client Recorded Date Recorded By Document 04/07/20 13:35 MW [id number] 04/07/20 13:36 MW 04/07/20 13:35 Wound Care Nurse 3 [Wound Dressing] #6 LEFT MEDIAL GROIN CLUSTER -Ulcer Cleansing Rinsed/ Irrigated with Saline -Foul Odor after Cleansing No -Negative Pressure Wound Therapy N/A -Primary Dressing Applied Aquacel AG 4x4 -Primary Dressing Covered/Secured Dry Gauze, with Secured with Tape -Aquacel AG 4x4 1 #1- LEFT GROIN- POST OP -Ulcer Cleansing Rinsed/ Irrigated with Saline -Foul Odor after Cleansing No -Negative Pressure Wound Therapy N/A -Other Dressing aquacel ag -Primary Dressing Covered/Secured Dry Gauze, with Secured with Tape [Post Procedure Tolerated] -Treatment Response Procedure Tolerated Well Pain Scale: 0-10 Numeric [Pain] -Is Patient Pain Free? Yes Teaching: Wound Center [Wound Center Education] (Items with an * have Printed Materials Available- Please identify what is given to patient under the Teaching materials given to patient and caregiver Section. Dressing Your Wound -Person Taught Patient -Teaching Method Discussion, Demonstration -Response to teaching Verbalize understanding WC - Visit Discharge [Visit Discharge Information] -Discharge Condition Stable -Ambulatory Status Ambulatory -Transportation Private Auto -Accompanied by brother -Medication Reconcilliation completed No & provided to patient/care provider -Clinical Summary of Care Provided Yes Neurological: Neuro grossly intact Psych/Mental Status: Normal Affect, Appropriate, Alert and oriented to time, place, person, mood and affect Debridement Note Post-Debridement Measurements/Treatment WC - Nurse 2 - General Ulcer CM Notes Start: 03/24/20 13:40 Freq: Status: Active Protocol: Activity Type Activity Date Activity User E-Sign Co-Sign Detail Recorded Client Recorded Date Recorded By Document 03/24/20 14:02 MW [id number] 03/24/20 14:06 MW Document 03/31/20 13:12 MW [id number] 03/31/20 13:16 MW Document 04/07/20 13:27 MW [id number] 04/07/20 13:29 MW 03/24/20 03/31/20 04/07/20 14:02 13:12 13:27 Wound Center Nurse 2 #6 LEFT MEDIAL GROIN CLUSTER -Time 14:02 13:15 13:27 -Correct Patient Yes Yes Yes -Correct Side, Site, Position Yes Yes Yes -Correct Procedure Yes Yes Yes -Procedure Performed Yes Yes Yes -Type of Procedure Debridement Debridement Debridement -Clinical Debridement Subcutaneous Subcutaneous Subcutaneous -Tissue Removed Subcutaneous Subcutaneous Subcutaneous -Post Debridement (cm) - Length 0.4 0.3 0.3 -Post Debridement (cm) - Width 1.0 0.5 0.3 -Post Debridement (cm) - Depth 0.1 0.1 0.1 -Total Square (Post) (cm) 0.40 0.15 0.09 -Area of Debridement (cm) - Length 0.4 0.3 0.3 -Area of Debridement (cm) - Width 1.0 0.5 0.3 -Total Square (Area) (cm) 0.40 0.15 0.09 -Tunneling No No No -Undermining/Tunneling No No No -Circular Undermining No No No -Wound/Ulcer Outcome Not Healed Not Healed Not Healed -Ulcer Cleansing Rinsed/ Rinsed/ Rinsed/ Irrigated with Irrigated with Irrigated with Saline Saline Saline -Foul Odor after Cleansing No No No -Bioengineered Tissue No No No -Bleeding Controlled with Pressure Pressure Pressure -Offloading No No No -Treatment Response Procedure Procedure Tolerated Well Tolerated Well -Debridement - Subq, 1st 20sq cm Yes Yes Yes #1- LEFT GROIN- POST OP -Time 14:02 13:15 13:27 -Correct Patient Yes Yes Yes -Correct Side, Site, Position Yes Yes Yes -Correct Procedure Yes Yes Yes -Procedure Performed Yes Yes Yes -Type of Procedure Debridement Debridement Debridement -Clinical Debridement Subcutaneous Subcutaneous Subcutaneous -Tissue Removed Subcutaneous Subcutaneous Subcutaneous -Post Debridement (cm) - Length 1.4 1.4 1.5 -Post Debridement (cm) - Width 7.0 7.3 7.0 -Post Debridement (cm) - Depth 0.1 0.1 0.1 -Total Square (Post) (cm) 9.80 10.22 10.50 -Area of Debridement (cm) - Length 1.4 1.4 1.5 -Area of Debridement (cm) - Width 7.0 7.3 7.0 -Total Square (Area) (cm) 9.80 10.22 10.50 -Tunneling No No No -Undermining/Tunneling No No No -Circular Undermining No No No -Wound/Ulcer Outcome Not Healed Not Healed Not Healed -Ulcer Cleansing Rinsed/ Rinsed/ Rinsed/ Irrigated with Irrigated with Irrigated with Saline Saline Saline -Foul Odor after Cleansing No No No -Bioengineered Tissue No No No -Bleeding Controlled with Pressure Pressure Pressure -Offloading No No No -Treatment Response Procedure Procedure Tolerated Well Tolerated Well -Debridement - Subq, 1st 20sq cm No No No Pain Scale: 0-10 Numeric Is Patient Pain Free? Yes Yes Yes - Nurse 3 - General Ulcer D/C NN Start: 03/24/20 13:40 Freq: Status: Active Protocol: Activity Type Activity Date Activity User E-Sign Co-Sign Detail Recorded Client Recorded Date Recorded By Document 03/24/20 14:24 RB [id number] 03/24/20 14:26 RB Document 03/31/20 13:26 RB [id number] 03/31/20 13:27 RB Document 04/07/20 13:35 MW [id number] 04/07/20 13:36 MW 03/24/20 03/31/20 04/07/20 14:24 13:26 13:35 Wound Care Nurse 3 #6 LEFT MEDIAL GROIN CLUSTER -Ulcer Cleansing Rinsed/ Wound Cleanser Rinsed/ Irrigated with Irrigated with Saline Saline -Foul Odor after Cleansing No -Negative Pressure Wound Therapy N/A -Primary Dressing Applied Aquacel AG 4x4 Aquacel AG 4x4 Aquacel AG 4x4 -Primary Dressing Covered/Secured with Dry Gauze, Dry Gauze, Dry Gauze, Secured with Secured with Secured with Tape Tape Tape -Aquacel AG 4x4 1 1 1 #1- LEFT GROIN- POST OP -Ulcer Cleansing Rinsed/ Wound Cleanser Rinsed/ Irrigated with Irrigated with Saline Saline -Foul Odor after Cleansing No -Negative Pressure Wound Therapy N/A -Other Dressing aquacel ag AQUACEL AG aquacel ag -Primary Dressing Covered/Secured with Dry Gauze, Dry Gauze, Dry Gauze, Secured with Secured with Secured with Tape Tape Tape Treatment Response Procedure Procedure Tolerated Well Tolerated Well Vital Signs Blood Pressure (90/60-120/80) 112/63 110/65 Blood Pressure Mean (mm Hg) 79 80 Source Monitor Monitor Position Semi-Fowlers Semi-Fowlers Blood Pressure Location Left Arm Left Arm Pain Scale: 0-10 Numeric Is Patient Pain Free? Yes Yes Yes Teaching: Wound Center Dressing Your Wound -Person Taught Patient Patient -Teaching Method Discussion, Discussion, Demonstration Demonstration -Response to teaching Verbalize Verbalize understanding understanding WC - Visit Discharge Discharge Condition Stable Stable Stable Ambulatory Status Ambulatory Ambulatory Ambulatory Transportation Private Auto Private Auto Private Auto Accompanied by brother Medication Reconcilliation completed & No No No provided to patient/care provider Clinical Summary of Care Provided Yes Yes Yes Wound debrided: left groin ulcer Laterality: Left Type of Debridement: Excisional debridement Anesthesia Used: 5% Lidocaine Gel Depth: Down to and including healthy tissue, in the subcutaneous layer Percentage of wound debrided: 100 Instrument Used: 3mm curette, 5mm curette Tissue Removed: slough and devitalized tissue Severity: Fat Layer Exposed Amount of bleeding with debridement: Mild Bleeding Controlled with: Pressure Patient tolerated procedure well Assessment/Plan Active Problems Panniculitis (Chronic) Ulcer of left groin with fat layer exposed (Chronic) x 2 History of necrotising fasciitis (Chronic) Type 2 diabetes mellitus (Chronic) Morbid obesity (Chronic) Non-healing surgical wound of left groin (Chronic) x 3 Skin ulcer of abdominal wall with fat layer exposed (Chronic) left abdominal fold and left medial groin cluster ulcers Assessment: Nonhealing postsurgical wound left groin status post surgical excision of necrotizing fasciitis. Morbid obesity. Type 2 diabetes mellitus Plan: Debridement done as documented above. Procedure was well-tolerated.wound care will consist of applying Aquacel silver daily. May change twice daily depending on drainage. Optimal diabetes control again discussed. Advised to speak with his primary care physician about possibly starting on a GLP-1. Continue increased protein intake. His questions were answered and he was advised to call with any further questions or concerns. Follow-up in 1 week at wound healing center. Surgery still on hold. This note was generated with [employer] dictation software. It may contain incorrect words, spelling, and punctuation that were not noted in checking the note before signing. [id number]: [id number] Jessica subq tissue 20 sq cm/<
[2020-04-21 09:29] VITALS: BP 124/56; PULSE 73; RESP 22; TEMP 36.1
--- NOTE | 2020-04-21 10:56 | PN.PCM_ITS ---
(1) Ulcer of left groin with fat layer exposed Status: Chronic Code(s): L98.492 - Non-pressure chronic ulcer of skin of other sites with fat layer exposed Comment: x 2 (2) Non-healing surgical wound of left groin Status: Chronic Qualifiers: Code(s): T81.89XA - Other complications of procedures, not elsewhere classified, initial encounter Comment: x 3 (3) History of necrotising fasciitis Status: Chronic Code(s): Z87.39 - Personal history of other diseases of the musculoskeletal system and connective tissue (4) Morbid obesity Status: Chronic Code(s): E66.01 - Morbid (severe) obesity due to excess calories (5) Type 2 diabetes mellitus Status: Chronic Qualifiers: Code(s): E11.9 - Type 2 diabetes mellitus without complications Type of Wound Date of Service: 04/21/20 Chief Complaint: Nonhealing wound status post surgical excision of necrotizing fasciitis left groin History of Wound: 46-year-old white male who presents to the wound healing center today with complaint of left groin ulceration status post surgical excision of necrotizing fasciitis. He is a past medical history which is significant for that of type 2 diabetes mellitus, gout, diabetic neuropathy, schizophrenia, bilateral lymphedema, and schizophrenia. The patient states that what initially started as a pimple in his left groin progressed to necrotizing fasciitis and he had to have this surgically debrided in April 2017. He was admitted to [facility] 2 weeks and then [facility] for 6 weeks afterwards . He states that the groin ulcer which extends to his left lower abdomen has been slowly improving and he has been doing daily Aquacel AG dressings with an ABD for the drainage. He does state that he has had 3 wound vacs in the past which were unable to be utilized due to the location of his wound. He denies any foul-smelling discharge or systemic signs of infection at this time. He is seen today as a courtesy visit for Gianni Neil CNP. He is tolerating dressings and denies any increase in drainage. He has been also using sweat beater to his groin area to prevent moisture. The patient otherwise denies any fever, chills, nausea, vomiting, shortness of breath, chest pain or pressure, palpitations, orthopnea, syncope or presyncopal episodes. Progress of Wound: Courtesy Visit for Gianni Neil NP. Stable ulcers. No new concerns at this time. - Physical Exam Vital Signs Temp Pulse Resp BP 96.9 F L 73 22 H 124/56 H 04/21/20 09:29 04/21/20 09:29 04/21/20 09:29 04/21/20 09:29 General: Alert, Oriented x3, Cooperative, No apparent distress HEENT: Atraumatic, Normocephalic Oral: Moist Mucosa Neck: Supple Lungs: Normal air movement Abdomen: Non Tender, Obese Extremities: No cyanosis Skin: Ulcer/ Wound Wound Measurements and Assessment WC - Nurse 1 - General Ulcer Measurement Start: 03/24/20 13:40 Freq: Status: Active Protocol: Activity Type Activity Date Activity User E-Sign Co-Sign Detail Recorded Client Recorded Date Recorded By Document 04/21/20 09:29 DL [id number] 04/21/20 09:36 DL 04/21/20 09:29 Wound Center Nurse 1 [Ulcer Assessment] #6 LEFT MEDIAL GROIN CLUSTER -Current Size (cm) - Length 0.1 -Current Size (cm) - Width 0.1 -Current Size (cm) - Depth 0.1 -Total Square Cm 0.01 -Photo Taken No -Exudate Amt None Present -Wound Margin Flat & Intact -Granulation Amt Small (1-33%) -Granulation Quality Pale,[place] -Necrosis Amt None Present (0 %) -Structure Exposed N/A -Texture (Inessa-wound Skin Appearance) Scarring -Moisture (Inessa-wound Skin Appearance No Abnormality ) -Color (Inessa-wound Skin Appearance) No Abnormality -Temperature (Inessa-wound Skin No Abnormality Appearance) (Pt Warm) -Tenderness on Palpation (Inessa-wound No Skin Appearance) -Ulcer Cleansing Wound Cleanser -Foul Odor after Cleansing No -Anesthetic Used 4% Lidocaine Solution #1- LEFT GROIN- POST OP -Current Size (cm) - Length 1.2 -Current Size (cm) - Width 0.6 -Current Size (cm) - Depth 0.4 -Total Square Cm 0.72 -Photo Taken No -Exudate Amt Small -Exudate Type Serosanguineous -Wound Margin Thickened -Granulation Amt Large (67-100%) -Granulation Quality Red -Necrosis Amt Small (1-33%) -Necrotic Tissue Type Adherent Slough -Structure Exposed N/A -Texture (Inessa-wound Skin Appearance) Scarring -Moisture (Inessa-wound Skin Appearance No Abnormality ) -Color (Inessa-wound Skin Appearance) No Abnormality, Rubor -Temperature (Inessa-wound Skin No Abnormality Appearance) (Pt Warm) -Tenderness on Palpation (Inessa-wound No Skin Appearance) -Ulcer Cleansing Wound Cleanser -Foul Odor after Cleansing No -Anesthetic Used 4% Lidocaine Solution WC - Nurse 2 - General Ulcer CM Notes Start: 03/24/20 13:40 Freq: Status: Active Protocol: Activity Type Activity Date Activity User E-Sign Co-Sign Detail Recorded Client Recorded Date Recorded By Document 04/21/20 09:59 MW [id number] 04/21/20 10:02 MW 04/21/20 09:59 Wound Center Nurse 2 [Procedure/Treatment] #6 LEFT MEDIAL GROIN CLUSTER -Time 09:59 -Correct Patient Yes -Correct Side, Site, Position Yes -Correct Procedure Yes -Procedure Performed Yes -Type of Procedure Debridement -Clinical Debridement Subcutaneous -Tissue Removed Subcutaneous -Post Debridement (cm) - Length 0.4 -Post Debridement (cm) - Width 2.5 -Post Debridement (cm) - Depth 0.1 -Total Square (Post) (cm) 1.00 -Area of Debridement (cm) - Length 0.4 -Area of Debridement (cm) - Width 2.5 -Total Square (Area) (cm) 1.00 -Tunneling No -Undermining/Tunneling No -Circular Undermining No -Wound/Ulcer Outcome Not Healed -Ulcer Cleansing Rinsed/ Irrigated with Saline -Foul Odor after Cleansing No -Bioengineered Tissue No -Bleeding Controlled with Pressure -Offloading No -Treatment Response Procedure Tolerated Well -Debridement - Subq, 1st 20sq cm Yes #1- LEFT GROIN- POST OP -Time 10:00 -Correct Patient Yes -Correct Side, Site, Position Yes -Correct Procedure Yes -Procedure Performed Yes -Type of Procedure Debridement -Clinical Debridement Subcutaneous -Tissue Removed Subcutaneous -Post Debridement (cm) - Length 0.7 -Post Debridement (cm) - Width 8.0 -Post Debridement (cm) - Depth 0.1 -Total Square (Post) (cm) 5.60 -Area of Debridement (cm) - Length 0.7 -Area of Debridement (cm) - Width 8.0 -Total Square (Area) (cm) 5.60 -Tunneling No -Undermining/Tunneling No -Circular Undermining No -Wound/Ulcer Outcome Not Healed -Ulcer Cleansing Rinsed/ Irrigated with Saline -Foul Odor after Cleansing No -Bioengineered Tissue No -Bleeding Controlled with Pressure -Offloading No -Treatment Response Procedure Tolerated Well -Debridement - Subq, 1st 20sq cm Yes [See Physician Procedure note for Specifics] Pain Scale: 0-10 Numeric [Pain] -Is Patient Pain Free? Yes - Nurse 3 - General Ulcer D/C NN Start: 03/24/20 13:40 Freq: Status: Active Protocol: Activity Type Activity Date Activity User E-Sign Co-Sign Detail Recorded Client Recorded Date Recorded By Document 04/21/20 10:02 MW [id number] 04/21/20 10:07 MW 04/21/20 10:02 Wound Care Nurse 3 [Wound Dressing] #6 LEFT MEDIAL GROIN CLUSTER -Ulcer Cleansing Rinsed/ Irrigated with Saline -Foul Odor after Cleansing No -Negative Pressure Wound Therapy N/A -Primary Dressing Applied Aquacel AG 4x4 -Primary Dressing Covered/Secured Dry Gauze, with Secured with Tape -Other Covering aquacel ag -Aquacel AG 4x4 1 #1- LEFT GROIN- POST OP -Ulcer Cleansing Rinsed/ Irrigated with Saline -Foul Odor after Cleansing No -Negative Pressure Wound Therapy N/A -Other Dressing aquacel ag -Primary Dressing Covered/Secured Dry Gauze, with Secured with Tape [Post Procedure Tolerated] -Treatment Response Procedure Tolerated Well Pain Scale: 0-10 Numeric [Pain] -Is Patient Pain Free? Yes Teaching: Wound Center [Wound Center Education] (Items with an * have Printed Materials Available- Please identify what is given to patient under the Teaching materials given to patient and caregiver Section. Dressing Your Wound -Person Taught Patient -Teaching Method Discussion, Demonstration -Response to teaching Verbalize understanding WC - Visit Discharge [Visit Discharge Information] -Discharge Condition Stable -Ambulatory Status Ambulatory -Transportation Private Auto -Accompanied by self -Medication Reconcilliation completed No & provided to patient/care provider -Clinical Summary of Care Provided Yes Musculoskeletal: No Muscle Wasting Neurological: Cranial nerves II-XII grossly intact Psych/Mental Status: Normal Affect Debridement Note Post-Debridement Measurements/Treatment - Nurse 2 - General Ulcer CM Notes Start: 12/03/20 13:40 Freq: Status: Active Protocol: Activity Type Activity Date Activity User E-Sign Co-Sign Detail Recorded Client Recorded Date Recorded By Document 03/24/20 14:02 MW [id number] 03/24/20 14:06 MW Document 03/31/20 13:12 MW [id number] 03/31/20 13:16 MW Document 04/07/20 13:27 MW [id number] 04/07/20 13:29 MW Document 04/21/20 09:59 MW [id number] 04/21/20 10:02 MW 03/24/20 03/31/20 04/07/20 14:02 13:12 13:27 Wound Center Nurse 2 #6 LEFT MEDIAL GROIN CLUSTER -Time 14: 13:15 13:27 -Correct Patient Yes Yes Yes -Correct Side, Site, Position Yes Yes Yes -Correct Procedure Yes Yes Yes -Procedure Performed Yes Yes Yes -Type of Procedure Debridement Debridement Debridement -Clinical Debridement Subcutaneous Subcutaneous Subcutaneous -Tissue Removed Subcutaneous Subcutaneous Subcutaneous -Post Debridement (cm) - Length 0.4 0.3 0.3 -Post Debridement (cm) - Width 1.0 0.5 0.3 -Post Debridement (cm) - Depth 0.1 0.1 0.1 -Total Square (Post) (cm) 0.40 0.15 0.09 -Area of Debridement (cm) - Length 0.4 0.3 0.3 -Area of Debridement (cm) - Width 1.0 0.5 0.3 -Total Square (Area) (cm) 0.40 0.15 0.09 -Tunneling No No No -Undermining/Tunneling No No No -Circular Undermining No No No -Wound/Ulcer Outcome Not Healed Not Healed Not Healed -Ulcer Cleansing Rinsed/ Rinsed/ Rinsed/ Irrigated with Irrigated with Irrigated with Saline Saline Saline -Foul Odor after Cleansing No No No -Bioengineered Tissue No No No -Bleeding Controlled with Pressure Pressure Pressure -Offloading No No No -Treatment Response Procedure Procedure Tolerated Well Tolerated Well -Debridement - Subq, 1st 20sq cm Yes Yes Yes #1- LEFT GROIN- POST OP -Time 14:02 13:15 13:27 -Correct Patient Yes Yes Yes -Correct Side, Site, Position Yes Yes Yes -Correct Procedure Yes Yes Yes -Procedure Performed Yes Yes Yes -Type of Procedure Debridement Debridement Debridement -Clinical Debridement Subcutaneous Subcutaneous Subcutaneous -Tissue Removed Subcutaneous Subcutaneous Subcutaneous -Post Debridement (cm) - Length 1.4 1.4 1.5 -Post Debridement (cm) - Width 7.0 7.3 7.0 -Post Debridement (cm) - Depth 0.1 0.1 0.1 -Total Square (Post) (cm) 9.80 10.22 10.50 -Area of Debridement (cm) - Length 1.4 1.4 1.5 -Area of Debridement (cm) - Width 7.0 7.3 7.0 -Total Square (Area) (cm) 9.80 10.22 10.50 -Tunneling No No No -Undermining/Tunneling No No No -Circular Undermining No No No -Wound/Ulcer Outcome Not Healed Not Healed Not Healed -Ulcer Cleansing Rinsed/ Rinsed/ Rinsed/ Irrigated with Irrigated with Irrigated with Saline Saline Saline -Foul Odor after Cleansing No No No -Bioengineered Tissue No No No -Bleeding Controlled with Pressure Pressure Pressure -Offloading No No No -Treatment Response Procedure Procedure Tolerated Well Tolerated Well -Debridement - Subq, 1st 20sq cm No No No Pain Scale: 0-10 Numeric Is Patient Pain Free? Yes Yes Yes 04/21/20 09:59 Wound Center Nurse 2 #6 LEFT MEDIAL GROIN CLUSTER -Time 09:59 -Correct Patient Yes -Correct Side, Site, Position Yes -Correct Procedure Yes -Procedure Performed Yes -Type of Procedure Debridement -Clinical Debridement Subcutaneous -Tissue Removed Subcutaneous -Post Debridement (cm) - Length 0.4 -Post Debridement (cm) - Width 2.5 -Post Debridement (cm) - Depth 0.1 -Total Square (Post) (cm) 1.00 -Area of Debridement (cm) - Length 0.4 -Area of Debridement (cm) - Width 2.5 -Total Square (Area) (cm) 1.00 -Tunneling No -Undermining/Tunneling No -Circular Undermining No -Wound/Ulcer Outcome Not Healed -Ulcer Cleansing Rinsed/ Irrigated with Saline -Foul Odor after Cleansing No -Bioengineered Tissue No -Bleeding Controlled with Pressure -Offloading No -Treatment Response Procedure Tolerated Well -Debridement - Subq, 1st 20sq cm Yes #1- LEFT GROIN- POST OP -Time 10:00 -Correct Patient Yes -Correct Side, Site, Position Yes -Correct Procedure Yes -Procedure Performed Yes -Type of Procedure Debridement -Clinical Debridement Subcutaneous -Tissue Removed Subcutaneous -Post Debridement (cm) - Length 0.7 -Post Debridement (cm) - Width 8.0 -Post Debridement (cm) - Depth 0.1 -Total Square (Post) (cm) 5.60 -Area of Debridement (cm) - Length 0.7 -Area of Debridement (cm) - Width 8.0 -Total Square (Area) (cm) 5.60 -Tunneling No -Undermining/Tunneling No -Circular Undermining No -Wound/Ulcer Outcome Not Healed -Ulcer Cleansing Rinsed/ Irrigated with Saline -Foul Odor after Cleansing No -Bioengineered Tissue No -Bleeding Controlled with Pressure -Offloading No -Treatment Response Procedure Tolerated Well -Debridement - Subq, 1st 20sq cm Yes Pain Scale: 0-10 Numeric Is Patient Pain Free? Yes WC - Nurse 3 - General Ulcer D/C NN Start: 03/24/20 13:40 Freq: Status: Active Protocol: Activity Type Activity Date Activity User E-Sign Co-Sign Detail Recorded Client Recorded Date Recorded By Document 03/24/20 14:24 RB [id number] 03/24/20 14:26 RB Document 03/31/20 13:26 RB [id number] 03/31/20 13:27 RB Document 04/07/20 13:35 MW [id number] 04/07/20 13:36 MW Document 04/21/20 10:02 MW [id number] 04/21/20 10:07 MW 03/24/20 03/31/20 04/07/20 14:24 13:26 13:35 Wound Care Nurse 3 #6 LEFT MEDIAL GROIN CLUSTER -Ulcer Cleansing Rinsed/ Wound Cleanser Rinsed/ Irrigated with Irrigated with Saline Saline -Foul Odor after Cleansing No -Negative Pressure Wound Therapy N/A -Primary Dressing Applied Aquacel AG 4x4 Aquacel AG 4x4 Aquacel AG 4x4 -Primary Dressing Covered/Secured with Dry Gauze, Dry Gauze, Dry Gauze, Secured with Secured with Secured with Tape Tape Tape -Other Covering -Aquacel AG 4x4 1 1 1 #1- LEFT GROIN- POST OP -Ulcer Cleansing Rinsed/ Wound Cleanser Rinsed/ Irrigated with Irrigated with Saline Saline -Foul Odor after Cleansing No -Negative Pressure Wound Therapy N/A -Other Dressing aquacel ag AQUACEL AG aquacel ag -Primary Dressing Covered/Secured with Dry Gauze, Dry Gauze, Dry Gauze, Secured with Secured with Secured with Tape Tape Tape Treatment Response Procedure Procedure Tolerated Well Tolerated Well Vital Signs Blood Pressure (90/60-120/80 mm Hg) 112/63 110/65 Blood Pressure Mean (mm Hg) 79 80 Source Monitor Monitor Position Semi-Fowlers Semi-Fowlers Blood Pressure Location Left Arm Left Arm Pain Scale: 0-10 Numeric Is Patient Pain Free? Yes Yes Yes Teaching: Wound Center Dressing Your Wound -Person Taught Patient Patient -Teaching Method Discussion, Discussion, Demonstration Demonstration -Response to teaching Verbalize Verbalize understanding understanding WC - Visit Discharge Discharge Condition Stable Stable Stable Ambulatory Status Ambulatory Ambulatory Ambulatory Transportation Private Auto Private Auto Private Auto Accompanied by brother Medication Reconcilliation completed & No No No provided to patient/care provider Clinical Summary of Care Provided Yes Yes Yes 04/21/20 10:02 Wound Care Nurse 3 #6 LEFT MEDIAL GROIN CLUSTER -Ulcer Cleansing Rinsed/ Irrigated with Saline -Foul Odor after Cleansing No -Negative Pressure Wound Therapy N/A -Primary Dressing Applied Aquacel AG 4x4 -Primary Dressing Covered/Secured with Dry Gauze, Secured with Tape -Other Covering aquacel ag -Aquacel AG 4x4 1 #1- LEFT GROIN- POST OP -Ulcer Cleansing Rinsed/ Irrigated with Saline -Foul Odor after Cleansing No -Negative Pressure Wound Therapy N/A -Other Dressing aquacel ag -Primary Dressing Covered/Secured with Dry Gauze, Secured with Tape Treatment Response Procedure Tolerated Well Vital Signs Blood Pressure (90/60-120/80 mm Hg) Blood Pressure Mean (mm Hg) Source Position Blood Pressure Location Pain Scale: 0-10 Numeric Is Patient Pain Free? Yes Teaching: Wound Center Dressing Your Wound -Person Taught Patient -Teaching Method Discussion, Demonstration -Response to teaching Verbalize understanding WC - Visit Discharge Discharge Condition Stable Ambulatory Status Ambulatory Transportation Private Auto Accompanied by self Medication Reconcilliation completed & No provided to patient/care provider Clinical Summary of Care Provided Yes Wound debrided: Left groin lateral Type of Debridement: Excisional debridement Anesthesia Used: 4% Lidocaine Solution Depth: Down to and including healthy tissue, in the subcutaneous layer Percentage of wound debrided: 100 Instrument Used: 5mm curette Tissue Removed: Slough and devitalized tissue Severity: Fat Layer Exposed Amount of bleeding with debridement: Mild Bleeding Controlled with: Pressure Patient tolerated procedure well - Additional Wound Wound debrided: Left groin medial Type of Debridement: Excisional debridement Anesthesia Used: 4% Lidocaine Solution Depth: Down to and including healthy tissue, in the subcutaneous layer Percentage of wound debrided: 100 Instrument Used: 5mm curette Tissue Removed: Slough and devitalized tissue Severity: Fat Layer Exposed Amount of bleeding with debridement: Mild Bleeding Controlled with: Pressure Patient tolerated procedure: Patient tolerated procedure well Assessment/Plan Active Problems Panniculitis (Chronic) Ulcer of left groin with fat layer exposed (Chronic) x 2 History of necrotising fasciitis (Chronic) Type 2 diabetes mellitus (Chronic) Morbid obesity (Chronic) Non-healing surgical wound of left groin (Chronic) x 3 Skin ulcer of abdominal wall with fat layer exposed (Chronic) left abdominal fold and left medial groin cluster ulcers Assessment: Nonhealing postsurgical wound left groin status post surgical excision of necrotizing fasciitis. Morbid obesity. Type 2 diabetes mellitus Plan: Debridement done as documented above. Procedure was well-tolerated. Continue Aquacel silver daily to twice daily depending on drainage. Optimal diabetes control again discussed. Continue increased protein intake. His questions were answered and he was advised to call with any further questions or concerns. Follow-up in 1 week at wound healing center. Surgery still on hold. This note was generated with [employer] software. It may contain incorrect words, spelling, and punctuation that were not noted in checking the note before signing. [id number]: [id number] Jessica subq tissue 20 sq cm/<
== END 2020-04-21 23:59 ==
LOC: WC 09:30
PROVIDERS: Family Provider Family Medicine; PCP Family Medicine; Visit Provider Nurse Practitioner Family
DX: T81.89XA Other complications of procedures, not elsewhere classified, initial encounter (principal); L98.492 Non-pressure chronic ulcer of skin of other sites with fat layer exposed; E11.40 Type 2 diabetes mellitus with diabetic neuropathy, unspecified; E11.65 Type 2 diabetes mellitus with hyperglycemia; I89.0 Lymphedema, not elsewhere classified; M79.3 Panniculitis, unspecified; F20.9 Schizophrenia, unspecified; E66.01 Morbid (severe) obesity due to excess calories; Z79.4 Long term (current) use of insulin; Z79.899 Other long term (current) drug therapy; Z87.39 Personal history of other diseases of the musculoskeletal system and connective tissue
CPT/HCPCS: 11042; 87070; 87075; 87077; 87205

== ENCOUNTER 2020-05-19 13:45 | Outpatient (RCR) | payer MEDICARE, MEDICAID, SELFPAY ==
[2020-04-22 00:17] VITALS: BP 124/56; PULSE 73; RESP 22; TEMP 36.1
[2020-04-28 14:49] VITALS: BP 120/55; PULSE 80; RESP 20; TEMP 36.3
[2020-04-28 17:45] LABS: Hemoglobin A1c 5.8 % (3.8-5.6); Prealbumin 20.7 mg/dL (20.0-40.0)
--- NOTE | 2020-04-28 20:59 | PCM.WC.PN ---
(1) Non-healing surgical wound of left groin Status: Chronic Qualifiers: Code(s): T81.89XA - Other complications of procedures, not elsewhere classified, initial encounter Comment: x 3 (2) Lymphedema of both lower extremities Status: Acute Code(s): I89.0 - Lymphedema, not elsewhere classified (3) Abdominal panniculus Status: Chronic Code(s): E65 - Localized adiposity (4) Diabetic neuropathy Status: Chronic Code(s): E11.40 - Type 2 diabetes mellitus with diabetic neuropathy, unspecified (5) History of necrotising fasciitis Status: Chronic Code(s): Z87.39 - Personal history of other diseases of the musculoskeletal system and connective tissue (6) Intertrigo Status: Chronic Code(s): L30.4 - Erythema intertrigo Comment: abdominal wall skin crease intertrigo (7) Morbid obesity Status: Chronic Code(s): E66.01 - Morbid (severe) obesity due to excess calories (8) Skin ulcer of abdominal wall with fat layer exposed Status: Chronic Code(s): L98.492 - Non-pressure chronic ulcer of skin of other sites with fat layer exposed Comment: left abdominal fold and left medial groin cluster ulcers (9) Type 2 diabetes mellitus Status: Chronic Qualifiers: Code(s): E11.9 - Type 2 diabetes mellitus without complications Type of Wound Date of Service: 04/28/20 Chief Complaint: Nonhealing wound status post surgical excision of necrotizing fasciitis left groin History of Wound: 46-year-old white male who presents to the wound healing center today with complaint of left groin ulceration status post surgical excision of necrotizing fasciitis. He is a past medical history which is significant for that of type 2 diabetes mellitus, gout, diabetic neuropathy, schizophrenia, bilateral lymphedema, and schizophrenia. The patient states that what initially started as a pimple in his left groin progressed to necrotizing fasciitis and he had to have this surgically debrided in April 2017. He was admitted to [facility] for 2 weeks and then [facility] for 6 weeks afterwards. He states that the groin ulcer which extends to his left lower abdomen has been slowly improving and he has been doing daily Aquacel AG dressings with an ABD for the drainage. He does state that he has had 3 wound vacs in the past which were unable to be utilized due to the location of his wound. He denies any foul-smelling discharge or systemic signs of infection at this time. The patient otherwise denies any fever, chills, nausea, vomiting, shortness of breath, chest pain or pressure, palpitations, orthopnea, syncope or presyncopal episodes. Progress of Wound: Left groin medial ulcer has healed, patient reports improved blood sugar readings, A1c will be ordered today and if improved will notify plastic surgery. No new concerns at this time. - Physical Exam Vital Signs Temp Pulse Resp BP 97.4 F L 80 20 H 120/55 L 04/28/20 14:49 04/28/20 14:49 04/28/20 14:49 04/28/20 14:49 General: Alert, Oriented x3, Cooperative, No apparent distress HEENT: Atraumatic Oral: Moist Mucosa Neck: Supple Lungs: Clear to auscultation, Normal air movement Cardiovascular: Regular rate, Regular Rhythm, Normal S1, Normal S2 Abdomen: Soft, Non Tender Extremities: No clubbing, No cyanosis, No edema Skin: Ulcer/ Wound - See nursing documentation, slough and devitalized tissue present, no signs of obvious infection at this time Wound Measurements and Assessment WC - Nurse 1 - General Ulcer Measurement Start: 04/28/20 14:49 Freq: Status: Active Protocol: Activity Type Activity Date Activity User E-Sign Co-Sign Detail Recorded Client Recorded Date Recorded By Document 04/28/20 14:49 DL [id number] 04/28/20 14:55 DL 04/28/20 14:49 Wound Center Nurse 1 [Ulcer Assessment] #6 LEFT MEDIAL GROIN CLUSTER -Current Size (cm) - Length 0 -Current Size (cm) - Width 0 -Current Size (cm) - Depth 0 -Total Square Cm 0 -Photo Taken Yes -Exudate Amt None Present -Wound Margin Flat & Intact -Granulation Amt Large (67-100%) -Granulation Quality [place] -Necrosis Amt None Present (0 %) -Structure Exposed N/A -Texture (Inessa-wound Skin Appearance) Scarring -Moisture (Inessa-wound Skin Appearance No Abnormality ) -Color (Inessa-wound Skin Appearance) No Abnormality -Temperature (Inessa-wound Skin No Abnormality Appearance) (Pt Warm) -Tenderness on Palpation (Inessa-wound No Skin Appearance) -Ulcer Cleansing Wound Cleanser -Foul Odor after Cleansing No #1- LEFT GROIN- POST OP -Current Size (cm) - Length 0.9 -Current Size (cm) - Width 7 -Current Size (cm) - Depth 0.2 -Total Square Cm 6.3 -Photo Taken No -Exudate Amt Medium -Exudate Type Serosanguineous -Wound Margin Thickened & Rolled Under -Granulation Amt Large (67-100%) -Granulation Quality Red -Necrosis Amt None Present (0 %) -Structure Exposed N/A -Texture (Inessa-wound Skin Appearance) Scarring -Moisture (Inessa-wound Skin Appearance No Abnormality ) -Color (Inessa-wound Skin Appearance) No Abnormality -Temperature (Inessa-wound Skin No Abnormality Appearance) (Pt Warm) -Tenderness on Palpation (Inessa-wound No Skin Appearance) -Ulcer Cleansing Wound Cleanser -Foul Odor after Cleansing No -Anesthetic Used 5% Lidocaine Gel WC - Nurse 2 - General Ulcer CM Notes Start: 04/28/20 14:49 Freq: Status: Active Protocol: Activity Type Activity Date Activity User E-Sign Co-Sign Detail Recorded Client Recorded Date Recorded By Document 04/28/20 15:16 MW [id number] 04/28/20 15:21 MW 04/28/20 15:16 Wound Center Nurse 2 [Procedure/Treatment] #6 LEFT MEDIAL GROIN CLUSTER -Time 15:18 -Correct Patient Yes -Correct Side, Site, Position Yes -Correct Procedure Yes -Procedure Performed No -Post Debridement (cm) - Length 0 -Post Debridement (cm) - Width 0 -Post Debridement (cm) - Depth 0 -Total Square (Post) (cm) 0 -Wound/Ulcer Outcome Healed- Epithelialized -Foul Odor after Cleansing No -Bioengineered Tissue No #1- LEFT GROIN- POST OP -Time 15:19 -Correct Patient Yes -Correct Side, Site, Position Yes -Correct Procedure Yes -Procedure Performed Yes -Type of Procedure Debridement -Clinical Debridement Subcutaneous -Tissue Removed Subcutaneous -Post Debridement (cm) - Length 1.4 -Post Debridement (cm) - Width 6.5 -Post Debridement (cm) - Depth 0.1 -Total Square (Post) (cm) 9.10 -Area of Debridement (cm) - Length 1.4 -Area of Debridement (cm) - Width 6.5 -Total Square (Area) (cm) 9.10 -Tunneling No -Undermining/Tunneling No -Circular Undermining No -Wound/Ulcer Outcome Not Healed -Ulcer Cleansing Rinsed/ Irrigated with Saline -Foul Odor after Cleansing No -Bioengineered Tissue No -Bleeding Controlled with Pressure -Offloading No -Treatment Response Procedure Tolerated Well -Debridement - Subq, 1st 20sq cm Yes [See Physician Procedure note for Specifics] Pain Scale: 0-10 Numeric [Pain] -Is Patient Pain Free? Yes - Nurse 3 - General Ulcer D/C NN Start: 04/28/20 14:49 Freq: Status: Active Protocol: Activity Type Activity Date Activity User E-Sign Co-Sign Detail Recorded Client Recorded Date Recorded By Document 04/28/20 15:21 MW [id number] 04/28/20 15:22 MW 04/28/20 15:21 Wound Care Nurse 3 [Wound Dressing] #1- LEFT GROIN- POST OP -Ulcer Cleansing Rinsed/ Irrigated with Saline -Foul Odor after Cleansing No -Negative Pressure Wound Therapy N/A -Primary Dressing Applied Aquacel AG 4x4 -Primary Dressing Covered/Secured Dry Gauze, with Secured with Tape -Aquacel AG 4x4 1 [Post Procedure Tolerated] -Treatment Response Procedure Tolerated Well Pain Scale: 0-10 Numeric [Pain] -Is Patient Pain Free? Yes Teaching: Wound Center [Wound Center Education] (Items with an * have Printed Materials Available- Please identify what is given to patient under the Teaching materials given to patient and caregiver Section. Dressing Your Wound -Person Taught Patient -Teaching Method Discussion -Response to teaching Verbalize understanding - Visit Discharge [Visit Discharge Information] -Discharge Condition Stable -Ambulatory Status Ambulatory -Transportation Private Auto -Accompanied by SELF -Medication Reconcilliation completed No & provided to patient/care provider -Clinical Summary of Care Provided Yes Neurological: Neuro grossly intact Psych/Mental Status: Normal Affect, Appropriate, Alert and oriented to time, place, person, mood and affect Debridement Note Post-Debridement Measurements/Treatment - Nurse 2 - General Ulcer CM Notes Start: 04/28/20 14:49 Freq: Status: Active Protocol: Activity Type Activity Date Activity User E-Sign Co-Sign Detail Recorded Client Recorded Date Recorded By Document 04/28/20 15:16 MW [id number] 04/28/20 15:21 MW 04/28/20 15:16 Wound Center Nurse 2 #6 LEFT MEDIAL GROIN CLUSTER -Time 15:18 -Correct Patient Yes -Correct Side, Site, Position Yes -Correct Procedure Yes -Procedure Performed No -Post Debridement (cm) - Length 0 -Post Debridement (cm) - Width 0 -Post Debridement (cm) - Depth 0 -Total Square (Post) (cm) 0 -Wound/Ulcer Outcome Healed- Epithelialized -Foul Odor after Cleansing No -Bioengineered Tissue No #1- LEFT GROIN- POST OP -Time 15:19 -Correct Patient Yes -Correct Side, Site, Position Yes -Correct Procedure Yes -Procedure Performed Yes -Type of Procedure Debridement -Clinical Debridement Subcutaneous -Tissue Removed Subcutaneous -Post Debridement (cm) - Length 1.4 -Post Debridement (cm) - Width 6.5 -Post Debridement (cm) - Depth 0.1 -Total Square (Post) (cm) 9.10 -Area of Debridement (cm) - Length 1.4 -Area of Debridement (cm) - Width 6.5 -Total Square (Area) (cm) 9.10 -Tunneling No -Undermining/Tunneling No -Circular Undermining No -Wound/Ulcer Outcome Not Healed -Ulcer Cleansing Rinsed/ Irrigated with Saline -Foul Odor after Cleansing No -Bioengineered Tissue No -Bleeding Controlled with Pressure -Offloading No -Treatment Response Procedure Tolerated Well -Debridement - Subq, 1st 20sq cm Yes Pain Scale: 0-10 Numeric Is Patient Pain Free? Yes - Nurse 3 - General Ulcer D/C NN Start: 04/28/20 14:49 Freq: Status: Active Protocol: Activity Type Activity Date Activity User E-Sign Co-Sign Detail Recorded Client Recorded Date Recorded By Document 04/28/20 15:21 MW [id number] 04/28/20 15:22 MW 04/28/20 15:21 Wound Care Nurse 3 #1- LEFT GROIN- POST OP -Ulcer Cleansing Rinsed/ Irrigated with Saline -Foul Odor after Cleansing No -Negative Pressure Wound Therapy N/A -Primary Dressing Applied Aquacel AG 4x4 -Primary Dressing Covered/Secured with Dry Gauze, Secured with Tape -Aquacel AG 4x4 1 Treatment Response Procedure Tolerated Well Pain Scale: 0-10 Numeric Is Patient Pain Free? Yes Teaching: Wound Center Dressing Your Wound -Person Taught Patient -Teaching Method Discussion -Response to teaching Verbalize understanding WC - Visit Discharge Discharge Condition Stable Ambulatory Status Ambulatory Transportation Private Auto Accompanied by SELF Medication Reconcilliation completed & No provided to patient/care provider Clinical Summary of Care Provided Yes Wound debrided: Left groin postsurgical nonhealing ulcer Laterality: Left Type of Debridement: Excisional debridement Anesthesia Used: 5% Lidocaine Gel Depth: in the subcutaneous layer Percentage of wound debrided: 100 Instrument Used: 5mm curette Tissue Removed: Slough and devitalized tissue Severity: Fat Layer Exposed Amount of bleeding with debridement: Mild Bleeding Controlled with: Pressure Patient tolerated procedure well Assessment/Plan Active Problems Intertrigo (Chronic) abdominal wall skin crease intertrigo Abdominal panniculus (Chronic) History of necrotising fasciitis (Chronic) Lymphedema of both lower extremities (Acute) Type 2 diabetes mellitus (Chronic) Diabetic neuropathy (Chronic) Morbid obesity (Chronic) Non-healing surgical wound of left groin (Chronic) x 3 Skin ulcer of abdominal wall with fat layer exposed (Chronic) left abdominal fold and left medial groin cluster ulcers Assessment: Nonhealing postsurgical wound left groin status post surgical excision of necrotizing fasciitis. Morbid obesity. Type 2 diabetes mellitus Plan: Debridement done as documented above. Procedure was well-tolerated. Continue Aquacel silver daily to twice daily depending on drainage. Optimal diabetes control again discussed. Continue increased protein intake. His questions were answered and he was advised to call with any further questions or concerns. Follow-up in 1 week at wound healing center. Surgery still on hold.Repeat A1c ordered today. This note was generated with [employer] dictation software. It may contain incorrect words, spelling, and punctuation that were not noted in checking the note before signing. [id number]: [id number] Jessica subq tissue 20 sq cm/<
[2020-05-05 14:40] VITALS: BP 120/68; PULSE 67; RESP 18; TEMP 36.6
--- NOTE | 2020-05-05 16:18 | PN.PCM_ITS ---
(1) Non-healing surgical wound of left groin Status: Chronic Qualifiers: Code(s): T81.89XA - Other complications of procedures, not elsewhere classified, initial encounter Comment: x 3 (2) Lymphedema of both lower extremities Status: Acute Code(s): I89.0 - Lymphedema, not elsewhere classified (3) Abdominal panniculus Status: Chronic Code(s): E65 - Localized adiposity (4) Diabetic neuropathy Status: Chronic Code(s): E11.40 - Type 2 diabetes mellitus with diabetic neuropathy, unspecified (5) History of necrotising fasciitis Status: Chronic Code(s): Z87.39 - Personal history of other diseases of the musculoskeletal system and connective tissue (6) Intertrigo Status: Chronic Code(s): L30.4 - Erythema intertrigo Comment: abdominal wall skin crease intertrigo (7) Morbid obesity Status: Chronic Code(s): E66.01 - Morbid (severe) obesity due to excess calories (8) Skin ulcer of abdominal wall with fat layer exposed Status: Chronic Code(s): L98.492 - Non-pressure chronic ulcer of skin of other sites with fat layer exposed Comment: left abdominal fold and left medial groin cluster ulcers (9) Type 2 diabetes mellitus Status: Chronic Qualifiers: Code(s): E11.9 - Type 2 diabetes mellitus without complications Type of Wound Date of Service: 05/05/20 Chief Complaint: Nonhealing wound status post surgical excision of necrotizing fasciitis left groin History of Wound: 46-year-old white male who presents to the wound healing center today with complaint of left groin ulceration status post surgical excision of necrotizing fasciitis. He is a past medical history which is significant for that of type 2 diabetes mellitus, gout, diabetic neuropathy, schizophrenia, bilateral lymphedema, and schizophrenia. The patient states that what initially started as a pimple in his left groin progressed to necrotizing fasciitis and he had to have this surgically debrided in April 2017. He was admitted to [facility] for 2 weeks and then [facility] for 6 weeks afterwards. He states that the groin ulcer which extends to his left lower abdomen has been slowly improving and he has been doing daily Aquacel AG dressings with an ABD for the drainage. He does state that he has had 3 wound vacs in the past which were unable to be utilized due to the location of his wound. He denies any foul-smelling discharge or systemic signs of infection at this time. The patient otherwise denies any fever, chills, nausea, vomiting, shortness of breath, chest pain or pressure, palpitations, orthopnea, syncope or presyncopal episodes. Progress of Wound: Left groin medial ulcer has healed,, lateral ulcer stable, patient reports improved blood sugar readings, A1c was 5.8 which is drastically improved. No new concerns at this time. - Physical Exam Vital Signs Temp Pulse Resp BP 98 F 67 18 120/68 05/05/20 14:40 05/05/20 14:40 05/05/20 14:40 05/05/20 14:40 General: Alert, Oriented x3, Cooperative, No apparent distress HEENT: Atraumatic Neck: Supple Lungs: Clear to auscultation, Normal air movement Cardiovascular: Regular rate Abdomen: Soft, Non Tender Extremities: No clubbing, No cyanosis, Edema - Bilateral lower extremity edema Skin: Ulcer/ Wound - See nursing documentation, slough and devitalized tissue present, no signs of infection at this time Wound Measurements and Assessment WC - Nurse 1 - General Ulcer Measurement Start: 04/28/20 14:49 Freq: Status: Active Protocol: Activity Type Activity Date Activity User E-Sign Co-Sign Detail Recorded Client Recorded Date Recorded By Document 05/05/20 14:40 RB [id number] 05/05/20 14:42 RB 05/05/20 14:40 Wound Center Nurse 1 [Ulcer Assessment] #1- LEFT GROIN- POST OP -Combined with other wound No -Current Size (cm) - Length 0.6 -Current Size (cm) - Width 6.8 -Current Size (cm) - Depth 0.1 -Total Square Cm 4.08 -Tunneling No -Undermining/Tunneling No -Circular Undermining No -Exudate Amt Medium -Exudate Type Serosanguineous -Wound Margin Thickened & Rolled Under -Granulation Amt Medium (34-66%) -Granulation Quality [place] -Slough/Fibrin Yes -Necrosis Amt Small (1-33%) -Necrotic Tissue Type Adherent Slough -Structure Exposed N/A -Texture (Inessa-wound Skin Appearance) Scarring -Moisture (Inessa-wound Skin Appearance Assessed ) -Color (Inessa-wound Skin Appearance) Assessed -Temperature (Inessa-wound Skin No Abnormality Appearance) (Pt Warm) -Tenderness on Palpation (Inessa-wound No Skin Appearance) -Ulcer Cleansing Wound Cleanser -Foul Odor after Cleansing No -Anesthetic Used 4% Lidocaine Solution RAMÓN - Nurse 2 - General Ulcer CM Notes Start: 04/28/20 14:49 Freq: Status: Active Protocol: Activity Type Activity Date Activity User E-Sign Co-Sign Detail Recorded Client Recorded Date Recorded By Document 05/05/20 14:54 MW [id number] 05/05/20 14:58 MW 05/05/20 14:54 Wound Center Nurse 2 [Procedure/Treatment] -Time 14:56 -Correct Patient Yes -Correct Side, Site, Position Yes -Correct Procedure Yes -Procedure Performed Yes -Type of Procedure Debridement -Clinical Debridement Subcutaneous -Tissue Removed Subcutaneous -Post Debridement (cm) - Length 1.4 -Post Debridement (cm) - Width 6.0 -Post Debridement (cm) - Depth 0.1 -Total Square (Post) (cm) 8.40 -Area of Debridement (cm) - Length 1.4 -Area of Debridement (cm) - Width 6.0 -Total Square (Area) (cm) 8.40 -Tunneling No -Undermining/Tunneling No -Circular Undermining No -Wound/Ulcer Outcome Not Healed -Ulcer Cleansing Rinsed/ Irrigated with Saline -Foul Odor after Cleansing No -Bioengineered Tissue No -Bleeding Controlled with Pressure -Offloading No -Treatment Response Procedure Tolerated Well -Debridement - Subq, 1st 20sq cm Yes [See Physician Procedure note for Specifics] Pain Scale: 0-10 Numeric [Pain] -Is Patient Pain Free? Yes RAMÓN - Nurse 3 - General Ulcer D/C NN Start: 04/28/20 14:49 Freq: Status: Active Protocol: Activity Type Activity Date Activity User E-Sign Co-Sign Detail Recorded Client Recorded Date Recorded By Document 05/05/20 14:58 MW [id number] 05/05/20 14:59 MW 05/05/20 14:58 Wound Care Nurse 3 [Wound Dressing] #1- LEFT GROIN- POST OP -Ulcer Cleansing Rinsed/ Irrigated with Saline -Foul Odor after Cleansing No -Negative Pressure Wound Therapy N/A -Primary Dressing Covered/Secured Dry Gauze, with Secured with Tape [Post Procedure Tolerated] -Treatment Response Procedure Tolerated Well Teaching: Wound Center [Wound Center Education] (Items with an * have Printed Materials Available- Please identify what is given to patient under the Teaching materials given to patient and caregiver Section. Dressing Your Wound -Person Taught Patient -Teaching Method Discussion -Response to teaching Verbalize understanding WC - Visit Discharge [Visit Discharge Information] -Discharge Condition Stable -Ambulatory Status Ambulatory -Transportation Private Auto -Accompanied by self -Medication Reconcilliation completed No & provided to patient/care provider -Clinical Summary of Care Provided Yes Neurological: Neuro grossly intact Psych/Mental Status: Normal Affect, Appropriate, Alert and oriented to time, place, person, mood and affect Debridement Note Post-Debridement Measurements/Treatment WC - Nurse 2 - General Ulcer CM Notes Start: 04/28/20 14:49 Freq: Status: Active Protocol: Activity Type Activity Date Activity User E-Sign Co-Sign Detail Recorded Client Recorded Date Recorded By Document 04/28/20 15:16 MW [id number] 04/28/20 15:21 MW Document 05/05/20 14:54 MW [id number] 05/05/20 14:58 MW 04/28/20 05/05/20 15:16 14:54 Wound Center Nurse 2 #6 LEFT MEDIAL GROIN CLUSTER -Time 15:18 -Correct Patient Yes -Correct Side, Site, Position Yes -Correct Procedure Yes -Procedure Performed No -Post Debridement (cm) - Length 0 -Post Debridement (cm) - Width 0 -Post Debridement (cm) - Depth 0 -Total Square (Post) (cm) 0 -Wound/Ulcer Outcome Healed- Epithelialized -Foul Odor after Cleansing No -Bioengineered Tissue No #1- LEFT GROIN- POST OP -Time 15:19 14:56 -Correct Patient Yes Yes -Correct Side, Site, Position Yes Yes -Correct Procedure Yes Yes -Procedure Performed Yes Yes -Type of Procedure Debridement Debridement -Clinical Debridement Subcutaneous Subcutaneous -Tissue Removed Subcutaneous Subcutaneous -Post Debridement (cm) - Length 1.4 1.4 -Post Debridement (cm) - Width 6.5 6.0 -Post Debridement (cm) - Depth 0.1 0.1 -Total Square (Post) (cm) 9.10 8.40 -Area of Debridement (cm) - Length 1.4 1.4 -Area of Debridement (cm) - Width 6.5 6.0 -Total Square (Area) (cm) 9.10 8.40 -Tunneling No No -Undermining/Tunneling No No -Circular Undermining No No -Wound/Ulcer Outcome Not Healed Not Healed -Ulcer Cleansing Rinsed/ Rinsed/ Irrigated with Irrigated with Saline Saline -Foul Odor after Cleansing No No -Bioengineered Tissue No No -Bleeding Controlled with Pressure Pressure -Offloading No No -Treatment Response Procedure Procedure Tolerated Well Tolerated Well -Debridement - Subq, 1st 20sq cm Yes Yes Pain Scale: 0-10 Numeric Is Patient Pain Free? Yes Yes - Nurse 3 - General Ulcer D/C NN Start: 04/28/20 14:49 Freq: Status: Active Protocol: Activity Type Activity Date Activity User E-Sign Co-Sign Detail Recorded Client Recorded Date Recorded By Document 04/28/20 15:21 MW [id number] 04/28/20 15:22 MW Document 05/05/20 14:58 MW [id number] 05/05/20 14:59 MW 04/28/20 05/05/20 15:21 14:58 Wound Care Nurse 3 #1- LEFT GROIN- POST OP -Ulcer Cleansing Rinsed/ Rinsed/ Irrigated with Irrigated with Saline Saline -Foul Odor after Cleansing No No -Negative Pressure Wound Therapy N/A N/A -Primary Dressing Applied Aquacel AG 4x4 -Primary Dressing Covered/Secured with Dry Gauze, Dry Gauze, Secured with Secured with Tape Tape -Aquacel AG 4x4 1 Treatment Response Procedure Procedure Tolerated Well Tolerated Well Pain Scale: 0-10 Numeric Is Patient Pain Free? Yes Teaching: Wound Center Dressing Your Wound -Person Taught Patient Patient -Teaching Method Discussion Discussion -Response to teaching Verbalize Verbalize understanding understanding WC - Visit Discharge Discharge Condition Stable Stable Ambulatory Status Ambulatory Ambulatory Transportation Private Auto Private Auto Accompanied by SELF self Medication Reconcilliation completed & No No provided to patient/care provider Clinical Summary of Care Provided Yes Yes Wound debrided: Left groin ulcer status post necrotizing fasciitis Type of Debridement: Excisional debridement Anesthesia Used: 5% Lidocaine Gel Depth: in the subcutaneous layer Percentage of wound debrided: 100 Instrument Used: 3mm curette Tissue Removed: Slough and devitalized tissue Severity: Fat Layer Exposed Amount of bleeding with debridement: Mild Bleeding Controlled with: Pressure Patient tolerated procedure well Assessment/Plan Active Problems Intertrigo (Chronic) abdominal wall skin crease intertrigo Abdominal panniculus (Chronic) History of necrotising fasciitis (Chronic) Lymphedema of both lower extremities (Acute) Type 2 diabetes mellitus (Chronic) Diabetic neuropathy (Chronic) Morbid obesity (Chronic) Non-healing surgical wound of left groin (Chronic) x 3 Skin ulcer of abdominal wall with fat layer exposed (Chronic) left abdominal fold and left medial groin cluster ulcers Assessment: Nonhealing postsurgical wound left groin status post surgical excision of necrotizing fasciitis. Morbid obesity. Type 2 diabetes mellitus Plan: Debridement done as documented above. Procedure was well-tolerated. Continue Aquacel silver daily to twice daily depending on drainage. Optimal diabetes control again discussed. Continue increased protein intake. His questions were answered and he was advised to call with any further questions or concerns. Follow-up in 1 week at wound healing center. Surgery still on hold. This note was generated with [employer] dictation software. It may contain incorrect words, spelling, and punctuation that were not noted in checking the note before signing. [id number]: [id number] Jessica subq tissue 20 sq cm/<
[2020-05-12 13:27] VITALS: BP 110/55; PULSE 81; RESP 18; TEMP 36.6
--- NOTE | 2020-05-12 14:28 | PCM.WC.PN ---
(1) Non-healing surgical wound of left groin Status: Chronic Qualifiers: Code(s): T81.89XA - Other complications of procedures, not elsewhere classified, initial encounter Comment: x 3 (2) Lymphedema of both lower extremities Status: Acute Code(s): I89.0 - Lymphedema, not elsewhere classified (3) Abdominal panniculus Status: Chronic Code(s): E65 - Localized adiposity (4) Diabetic neuropathy Status: Chronic Code(s): E11.40 - Type 2 diabetes mellitus with diabetic neuropathy, unspecified (5) History of necrotising fasciitis Status: Chronic Code(s): Z87.39 - Personal history of other diseases of the musculoskeletal system and connective tissue (6) Intertrigo Status: Chronic Code(s): L30.4 - Erythema intertrigo Comment: abdominal wall skin crease intertrigo (7) Morbid obesity Status: Chronic Code(s): E66.01 - Morbid (severe) obesity due to excess calories (8) Skin ulcer of abdominal wall with fat layer exposed Status: Chronic Code(s): L98.492 - Non-pressure chronic ulcer of skin of other sites with fat layer exposed Comment: left abdominal fold and left medial groin cluster ulcers (9) Type 2 diabetes mellitus Status: Chronic Qualifiers: Code(s): E11.9 - Type 2 diabetes mellitus without complications Type of Wound Date of Service: 05/12/20 Chief Complaint: Nonhealing wound status post surgical excision of necrotizing fasciitis left groin History of Wound: 46-year-old white male who presents to the wound healing center today with complaint of left groin ulceration status post surgical excision of necrotizing fasciitis. He is a past medical history which is significant for that of type 2 diabetes mellitus, gout, diabetic neuropathy, schizophrenia, bilateral lymphedema, and schizophrenia. The patient states that what initially started as a pimple in his left groin progressed to necrotizing fasciitis and he had to have this surgically debrided in April 2017. He was admitted to [facility] for 2 weeks and then [facility] for 6 weeks afterwards. He states that the groin ulcer which extends to his left lower abdomen has been slowly improving and he has been doing daily Aquacel AG dressings with an ABD for the drainage. He does state that he has had 3 wound vacs in the past which were unable to be utilized due to the location of his wound. He denies any foul-smelling discharge or systemic signs of infection at this time. The patient otherwise denies any fever, chills, nausea, vomiting, shortness of breath, chest pain or pressure, palpitations, orthopnea, syncope or presyncopal episodes. Progress of Wound: Left groin medial ulcer has healed, lateral ulcer stable, patient reports improved blood sugar readings, A1c was 5.8 which is drastically improved. No new concerns at this time. - Physical Exam Vital Signs Temp Pulse Resp BP 97.8 F 81 18 110/55 L 05/12/20 13:27 05/12/20 13:27 05/12/20 13:27 05/12/20 13:27 General: Alert, Oriented x3, Cooperative, No apparent distress HEENT: Atraumatic Oral: Moist Mucosa Neck: Supple Lungs: Clear to auscultation, Normal air movement Cardiovascular: Regular rate, Regular Rhythm Abdomen: Soft, Non Tender, Obese Extremities: No clubbing, No cyanosis, No edema Skin: Ulcer/ Wound - See nursing documentation, slough and devitalized tissue present, no signs of obvious infection at this time Wound Measurements and Assessment WC - Nurse 1 - General Ulcer Measurement Start: 04/28/20 14:49 Freq: Status: Active Protocol: Activity Type Activity Date Activity User E-Sign Co-Sign Detail Recorded Client Recorded Date Recorded By Document 05/12/20 13:27 PL [id number] 05/12/20 13:36 PL 05/12/20 13:27 Wound Center Nurse 1 [Ulcer Assessment] #1- LEFT GROIN- POST OP -Combined with other wound No -Current Size (cm) - Length 1.0 -Current Size (cm) - Width 10.5 -Current Size (cm) - Depth 0.1 -Total Square Cm 10.50 -Epithelialization Small 1-33% -Tunneling No -Undermining/Tunneling No -Circular Undermining No -Exudate Amt Medium -Exudate Type Serosanguineous -Granulation Amt Medium (34-66%) -Granulation Quality [place] -Necrosis Amt Medium (34-66%) -Necrotic Tissue Type Adherent Slough -Texture (Inessa-wound Skin Appearance) No Abnormality -Moisture (Inessa-wound Skin Appearance No Abnormality ) -Color (Inessa-wound Skin Appearance) No Abnormality -Temperature (Inessa-wound Skin No Abnormality Appearance) (Pt Warm) -Ulcer Cleansing Rinsed/ Irrigated with Saline -Anesthetic Used 5% Lidocaine Gel RAMÓN - Nurse 2 - General Ulcer CM Notes Start: 04/28/20 14:49 Freq: Status: Active Protocol: Activity Type Activity Date Activity User E-Sign Co-Sign Detail Recorded Client Recorded Date Recorded By Document 05/12/20 13:46 MW [id number] 05/12/20 13:54 MW 05/12/20 13:46 Wound Center Nurse 2 [Procedure/Treatment] -Time 13:54 -Correct Patient Yes -Correct Side, Site, Position Yes -Correct Procedure Yes -Procedure Performed Yes -Type of Procedure Debridement -Clinical Debridement Subcutaneous -Tissue Removed Subcutaneous -Post Debridement (cm) - Length 1.5 -Post Debridement (cm) - Width 7.0 -Post Debridement (cm) - Depth 0.1 -Total Square (Post) (cm) 10.50 -Area of Debridement (cm) - Length 1.5 -Area of Debridement (cm) - Width 7.0 -Total Square (Area) (cm) 10.50 -Tunneling No -Undermining/Tunneling No -Circular Undermining No -Wound/Ulcer Outcome Not Healed -Ulcer Cleansing Rinsed/ Irrigated with Saline -Foul Odor after Cleansing No -Bioengineered Tissue No -Bleeding Controlled with Pressure,Silver Nitrate, SURGIFOAM -Offloading No -Treatment Response Procedure Tolerated Well -Debridement - Subq, 1st 20sq cm Yes [See Physician Procedure note for Specifics] Pain Scale: 0-10 Numeric [Pain] -Is Patient Pain Free? Yes RAMÓN - Nurse 3 - General Ulcer D/C NN Start: 04/28/20 14:49 Freq: Status: Active Protocol: Activity Type Activity Date Activity User E-Sign Co-Sign Detail Recorded Client Recorded Date Recorded By Document 05/12/20 14:03 PL [id number] 05/12/20 14:04 PL 05/12/20 14:03 Wound Care Nurse 3 [Wound Dressing] #1- LEFT GROIN- POST OP -Ulcer Cleansing Rinsed/ Irrigated with Saline -Foul Odor after Cleansing No -Primary Dressing Applied [place] -Primary Dressing Covered/Secured Dry Gauze, with Secured with Tape -Silvercel 1 Pain Scale: 0-10 Numeric [Pain] -Is Patient Pain Free? Yes Neurological: Neuro grossly intact Psych/Mental Status: Normal Affect, Appropriate, Alert and oriented to time, place, person, mood and affect Debridement Note Post-Debridement Measurements/Treatment WC - Nurse 2 - General Ulcer CM Notes Start: 04/28/20 14:49 Freq: Status: Active Protocol: Activity Type Activity Date Activity User E-Sign Co-Sign Detail Recorded Client Recorded Date Recorded By Document 04/28/20 15:16 MW [id number] 04/28/20 15:21 MW Document 05/05/20 14:54 MW [id number] 05/05/20 14:58 MW Document 05/12/20 13:46 MW [id number] 05/12/20 13:54 MW 04/28/20 05/05/20 05/12/20 15:16 14:54 13:46 Wound Center Nurse 2 #6 LEFT MEDIAL GROIN CLUSTER -Time 15:18 -Correct Patient Yes -Correct Side, Site, Position Yes -Correct Procedure Yes -Procedure Performed No -Post Debridement (cm) - Length 0 -Post Debridement (cm) - Width 0 -Post Debridement (cm) - Depth 0 -Total Square (Post) (cm) 0 -Wound/Ulcer Outcome Healed- Epithelialized -Foul Odor after Cleansing No -Bioengineered Tissue No #1- LEFT GROIN- POST OP -Time 15:19 14:56 13:54 -Correct Patient Yes Yes Yes -Correct Side, Site, Position Yes Yes Yes -Correct Procedure Yes Yes Yes -Procedure Performed Yes Yes Yes -Type of Procedure Debridement Debridement Debridement -Clinical Debridement Subcutaneous Subcutaneous Subcutaneous -Tissue Removed Subcutaneous Subcutaneous Subcutaneous -Post Debridement (cm) - Length 1.4 1.4 1.5 -Post Debridement (cm) - Width 6.5 6.0 7.0 -Post Debridement (cm) - Depth 0.1 0.1 0.1 -Total Square (Post) (cm) 9.10 8.40 10.50 -Area of Debridement (cm) - Length 1.4 1.4 1.5 -Area of Debridement (cm) - Width 6.5 6.0 7.0 -Total Square (Area) (cm) 9.10 8.40 10.50 -Tunneling No No No -Undermining/Tunneling No No No -Circular Undermining No No No -Wound/Ulcer Outcome Not Healed Not Healed Not Healed -Ulcer Cleansing Rinsed/ Rinsed/ Rinsed/ Irrigated with Irrigated with Irrigated with Saline Saline Saline -Foul Odor after Cleansing No No No -Bioengineered Tissue No No No -Bleeding Controlled with Pressure Pressure Pressure,Silver Nitrate, SURGIFOAM -Offloading No No No -Treatment Response Procedure Procedure Procedure Tolerated Well Tolerated Well Tolerated Well -Debridement - Subq, 1st 20sq cm Yes Yes Yes Pain Scale: 0-10 Numeric Is Patient Pain Free? Yes Yes Yes WC - Nurse 3 - General Ulcer D/C NN Start: 04/28/20 14:49 Freq: Status: Active Protocol: Activity Type Activity Date Activity User E-Sign Co-Sign Detail Recorded Client Recorded Date Recorded By Document 04/28/20 15:21 MW [id number] 04/28/20 15:22 MW Document 05/05/20 14:58 MW [id number] 05/05/20 14:59 MW Document 05/12/20 14:03 PL [id number] 05/12/20 14:04 PL 04/28/20 05/05/20 05/12/20 15:21 14:58 14:03 Wound Care Nurse 3 #1- LEFT GROIN- POST OP -Ulcer Cleansing Rinsed/ Rinsed/ Rinsed/ Irrigated with Irrigated with Irrigated with Saline Saline Saline -Foul Odor after Cleansing No No No -Negative Pressure Wound Therapy N/A N/A -Primary Dressing Applied Aquacel AG 4x4 [place] -Primary Dressing Covered/Secured with Dry Gauze, Dry Gauze, Dry Gauze, Secured with Secured with Secured with Tape Tape Tape -Aquacel AG 4x4 1 -[place] 1 Treatment Response Procedure Procedure Tolerated Well Tolerated Well Pain Scale: 0-10 Numeric Is Patient Pain Free? Yes Yes Teaching: Wound Center Dressing Your Wound -Person Taught Patient Patient -Teaching Method Discussion Discussion -Response to teaching Verbalize Verbalize understanding understanding WC - Visit Discharge Discharge Condition Stable Stable Ambulatory Status Ambulatory Ambulatory Transportation Private Auto Private Auto Accompanied by SELF self Medication Reconcilliation completed & No No provided to patient/care provider Clinical Summary of Care Provided Yes Yes Wound debrided: Left groin ulcer Laterality: Left Type of Debridement: Excisional debridement Anesthesia Used: 5% Lidocaine Gel Depth: in the subcutaneous layer Percentage of wound debrided: 100 Instrument Used: 3mm curette Tissue Removed: Slough and devitalized tissue Severity: Fat Layer Exposed Amount of bleeding with debridement: Mild Bleeding Controlled with: Pressure Patient tolerated procedure well Assessment/Plan Active Problems Intertrigo (Chronic) abdominal wall skin crease intertrigo Abdominal panniculus (Chronic) History of necrotising fasciitis (Chronic) Lymphedema of both lower extremities (Acute) Type 2 diabetes mellitus (Chronic) Diabetic neuropathy (Chronic) Morbid obesity (Chronic) Non-healing surgical wound of left groin (Chronic) x 3 Skin ulcer of abdominal wall with fat layer exposed (Chronic) left abdominal fold and left medial groin cluster ulcers Assessment: Nonhealing postsurgical wound left groin status post surgical excision of necrotizing fasciitis. Morbid obesity. Type 2 diabetes mellitus Plan: Debridement done as documented above. Procedure was well-tolerated. Given his increase in pain, will reculture today. Continue Aquacel silver daily to twice daily depending on drainage. Optimal diabetes control again discussed. Continue increased protein intake. His questions were answered and he was advised to call with any further questions or concerns. Follow-up in 1 week at wound healing center. Surgery still on hold. This note was generated with [employer] dictation software. It may contain incorrect words, spelling, and punctuation that were not noted in checking the note before signing. [id number]: [id number] Jessica subq tissue 20 sq cm/<
--- NOTE | 2020-05-18 13:12 | WC ---
Pt notified that prescription for Clindagel had been called in to his pharmacy. To be used BID with dressing changes
[2020-05-19 13:59] VITALS: BP 119/55; PULSE 65; RESP 20; TEMP 36.6
--- NOTE | 2020-05-19 14:32 | PCM.WC.PN ---
(1) Non-healing surgical wound of left groin Status: Chronic Qualifiers: Code(s): T81.89XA - Other complications of procedures, not elsewhere classified, initial encounter Comment: x 3 (2) Lymphedema of both lower extremities Status: Acute Code(s): I89.0 - Lymphedema, not elsewhere classified (3) Abdominal panniculus Status: Chronic Code(s): E65 - Localized adiposity (4) Diabetic neuropathy Status: Chronic Code(s): E11.40 - Type 2 diabetes mellitus with diabetic neuropathy, unspecified (5) History of necrotising fasciitis Status: Chronic Code(s): Z87.39 - Personal history of other diseases of the musculoskeletal system and connective tissue (6) Intertrigo Status: Chronic Code(s): L30.4 - Erythema intertrigo Comment: abdominal wall skin crease intertrigo (7) Morbid obesity Status: Chronic Code(s): E66.01 - Morbid (severe) obesity due to excess calories (8) Skin ulcer of abdominal wall with fat layer exposed Status: Chronic Code(s): L98.492 - Non-pressure chronic ulcer of skin of other sites with fat layer exposed Comment: left abdominal fold and left medial groin cluster ulcers (9) Type 2 diabetes mellitus Status: Chronic Qualifiers: Code(s): E11.9 - Type 2 diabetes mellitus without complications Type of Wound Date of Service: 05/19/20 Chief Complaint: Nonhealing wound status post surgical excision of necrotizing fasciitis left groin History of Wound: 46-year-old white male who presents to the wound healing center today with complaint of left groin ulceration status post surgical excision of necrotizing fasciitis. He is a past medical history which is significant for that of type 2 diabetes mellitus, gout, diabetic neuropathy, schizophrenia, bilateral lymphedema, and schizophrenia. The patient states that what initially started as a pimple in his left groin progressed to necrotizing fasciitis and he had to have this surgically debrided in April 2017. He was admitted to [facility] for 2 weeks and then [facility] for 6 weeks afterwards. He states that the groin ulcer which extends to his left lower abdomen has been slowly improving and he has been doing daily Aquacel AG dressings with an ABD for the drainage. He does state that he has had 3 wound vacs in the past which were unable to be utilized due to the location of his wound. He denies any foul-smelling discharge or systemic signs of infection at this time. The patient otherwise denies any fever, chills, nausea, vomiting, shortness of breath, chest pain or pressure, palpitations, orthopnea, syncope or presyncopal episodes. Progress of Wound: Left groin medial ulcer has healed, lateral ulcer stable, patient reports improved blood sugar readings, A1c was 5.8 which is drastically improved. No new concerns at this time. Most recent wound culture showed Corynebacterium and patient was started on clindamycin gel topically twice a day which she has yet to start. - Physical Exam Vital Signs Temp Pulse Resp BP 97.8 F 65 20 H 119/55 L 05/19/20 13:59 05/19/20 13:59 05/19/20 13:59 05/19/20 13:59 General: Alert, Oriented x3, Cooperative, No apparent distress HEENT: Atraumatic Oral: Moist Mucosa Neck: Supple Lungs: Clear to auscultation Cardiovascular: Regular rate Abdomen: Soft, Non Tender Extremities: No clubbing, No cyanosis, Edema - Generalized bilateral lower extremity edema Skin: Ulcer/ Wound - See nursing documentation, left groin ulcer with slough and devitalized tissue, no signs of obvious infection at this time Wound Measurements and Assessment WC - Nurse 1 - General Ulcer Measurement Start: 04/28/20 14:49 Freq: Status: Active Protocol: Activity Type Activity Date Activity User E-Sign Co-Sign Detail Recorded Client Recorded Date Recorded By Document 05/19/20 13:59 DL [id number] 05/19/20 14:08 DL 05/19/20 13:59 Wound Center Nurse 1 [Ulcer Assessment] #1- LEFT GROIN- POST OP -Current Size (cm) - Length 1 -Current Size (cm) - Width 7 -Current Size (cm) - Depth 0.3 -Total Square Cm 7 -Photo Taken No -Exudate Amt Medium -Exudate Type Serosanguineous -Wound Margin Thickened & Rolled Under -Granulation Amt Large (67-100%) -Granulation Quality [place],Red -Necrosis Amt Small (1-33%) -Necrotic Tissue Type Adherent Slough -Structure Exposed N/A -Texture (Inessa-wound Skin Appearance) Scarring -Moisture (Inessa-wound Skin Appearance No Abnormality ) -Color (Inessa-wound Skin Appearance) No Abnormality -Temperature (Inessa-wound Skin No Abnormality Appearance) (Pt Warm) -Tenderness on Palpation (Inessa-wound No Skin Appearance) -Ulcer Cleansing Rinsed/ Irrigated with Saline -Foul Odor after Cleansing No -Anesthetic Used 4% Lidocaine Solution RAMÓN - Nurse 2 - General Ulcer CM Notes Start: 04/28/20 14:49 Freq: Status: Active Protocol: Activity Type Activity Date Activity User E-Sign Co-Sign Detail Recorded Client Recorded Date Recorded By Document 05/19/20 14:23 MW [id number] 05/19/20 14:24 MW 05/19/20 14:23 Wound Center Nurse 2 [Procedure/Treatment] -Time 14:23 -Correct Patient Yes -Correct Side, Site, Position Yes -Correct Procedure Yes -Procedure Performed Yes -Type of Procedure Chemical Cauterization ( $) -Clinical Debridement Subcutaneous -Tissue Removed Subcutaneous -Post Debridement (cm) - Length 1.3 -Post Debridement (cm) - Width 7.5 -Post Debridement (cm) - Depth 0.1 -Total Square (Post) (cm) 9.75 -Area of Debridement (cm) - Length 1.3 -Area of Debridement (cm) - Width 7.5 -Total Square (Area) (cm) 9.75 -Tunneling No -Undermining/Tunneling No -Circular Undermining No -Wound/Ulcer Outcome Not Healed -Ulcer Cleansing Rinsed/ Irrigated with Saline -Foul Odor after Cleansing No -Bioengineered Tissue No -Bleeding Controlled with Pressure -Offloading No -Debridement - Subq, 1st 20sq cm Yes [See Physician Procedure note for Specifics] Pain Scale: 0-10 Numeric [Pain] -Is Patient Pain Free? Yes - Nurse 3 - General Ulcer D/C NN Start: 04/28/20 14:49 Freq: Status: Active Protocol: Activity Type Activity Date Activity User E-Sign Co-Sign Detail Recorded Client Recorded Date Recorded By Document 05/19/20 14:24 MW [id number] 05/19/20 14:25 MW 05/19/20 14:24 Wound Care Nurse 3 [Wound Dressing] #1- LEFT GROIN- POST OP -Ulcer Cleansing Rinsed/ Irrigated with Saline -Foul Odor after Cleansing No -Negative Pressure Wound Therapy N/A -Primary Dressing Applied Aquacel AG 4x4 -Primary Dressing Covered/Secured Dry Gauze, with Secured with Tape -Aquacel AG 4x4 1 [Post Procedure Tolerated] -Treatment Response Procedure Tolerated Well Pain Scale: 0-10 Numeric [Pain] -Is Patient Pain Free? Yes Teaching: Wound Center [Wound Center Education] (Items with an * have Printed Materials Available- Please identify what is given to patient under the Teaching materials given to patient and caregiver Section. Dressing Your Wound -Person Taught Patient -Teaching Method Discussion -Response to teaching Verbalize understanding WC - Visit Discharge [Visit Discharge Information] -Discharge Condition Stable -Ambulatory Status Ambulatory -Transportation Private Auto -Accompanied by self -Medication Reconcilliation completed No & provided to patient/care provider -Clinical Summary of Care Provided Yes Neurological: Neuro grossly intact Psych/Mental Status: Normal Affect, Appropriate, Alert and oriented to time, place, person, mood and affect Debridement Note Post-Debridement Measurements/Treatment WC - Nurse 2 - General Ulcer CM Notes Start: 04/28/20 14:49 Freq: Status: Active Protocol: Activity Type Activity Date Activity User E-Sign Co-Sign Detail Recorded Client Recorded Date Recorded By Document 04/28/20 15:16 MW [id number] 04/28/20 15:21 MW Document 05/05/20 14:54 MW [id number] 05/05/20 14:58 MW Document 05/12/20 13:46 MW [id number] 05/12/20 13:54 MW Document 05/19/20 14:23 MW [id number] 05/19/20 14:24 MW 04/28/20 05/05/20 05/12/20 15:16 14:54 13:46 Wound Center Nurse 2 #6 LEFT MEDIAL GROIN CLUSTER -Time 15:18 -Correct Patient Yes -Correct Side, Site, Position Yes -Correct Procedure Yes -Procedure Performed No -Post Debridement (cm) - Length 0 -Post Debridement (cm) - Width 0 -Post Debridement (cm) - Depth 0 -Total Square (Post) (cm) 0 -Wound/Ulcer Outcome Healed- Epithelialized -Foul Odor after Cleansing No -Bioengineered Tissue No #1- LEFT GROIN- POST OP -Time 15:19 14:56 13:54 -Correct Patient Yes Yes Yes -Correct Side, Site, Position Yes Yes Yes -Correct Procedure Yes Yes Yes -Procedure Performed Yes Yes Yes -Type of Procedure Debridement Debridement Debridement -Clinical Debridement Subcutaneous Subcutaneous Subcutaneous -Tissue Removed Subcutaneous Subcutaneous Subcutaneous -Post Debridement (cm) - Length 1.4 1.4 1.5 -Post Debridement (cm) - Width 6.5 6.0 7.0 -Post Debridement (cm) - Depth 0.1 0.1 0.1 -Total Square (Post) (cm) 9.10 8.40 10.50 -Area of Debridement (cm) - Length 1.4 1.4 1.5 -Area of Debridement (cm) - Width 6.5 6.0 7.0 -Total Square (Area) (cm) 9.10 8.40 10.50 -Tunneling No No No -Undermining/Tunneling No No No -Circular Undermining No No No -Wound/Ulcer Outcome Not Healed Not Healed Not Healed -Ulcer Cleansing Rinsed/ Rinsed/ Rinsed/ Irrigated with Irrigated with Irrigated with Saline Saline Saline -Foul Odor after Cleansing No No No -Bioengineered Tissue No No No -Bleeding Controlled with Pressure Pressure Pressure,Silver Nitrate, SURGIFOAM -Offloading No No No -Treatment Response Procedure Procedure Procedure Tolerated Well Tolerated Well Tolerated Well -Debridement - Subq, 1st 20sq cm Yes Yes Yes Pain Scale: 0-10 Numeric Is Patient Pain Free? Yes Yes Yes 05/19/20 14:23 Wound Center Nurse 2 #6 LEFT MEDIAL GROIN CLUSTER -Time -Correct Patient -Correct Side, Site, Position -Correct Procedure -Procedure Performed -Post Debridement (cm) - Length -Post Debridement (cm) - Width -Post Debridement (cm) - Depth -Total Square (Post) (cm) -Wound/Ulcer Outcome -Foul Odor after Cleansing -Bioengineered Tissue #1- LEFT GROIN- POST OP -Time 14:23 -Correct Patient Yes -Correct Side, Site, Position Yes -Correct Procedure Yes -Procedure Performed Yes -Type of Procedure Chemical Cauterization ( $) -Clinical Debridement Subcutaneous -Tissue Removed Subcutaneous -Post Debridement (cm) - Length 1.3 -Post Debridement (cm) - Width 7.5 -Post Debridement (cm) - Depth 0.1 -Total Square (Post) (cm) 9.75 -Area of Debridement (cm) - Length 1.3 -Area of Debridement (cm) - Width 7.5 -Total Square (Area) (cm) 9.75 -Tunneling No -Undermining/Tunneling No -Circular Undermining No -Wound/Ulcer Outcome Not Healed -Ulcer Cleansing Rinsed/ Irrigated with Saline -Foul Odor after Cleansing No -Bioengineered Tissue No -Bleeding Controlled with Pressure -Offloading No -Treatment Response -Debridement - Subq, 1st 20sq cm Yes Pain Scale: 0-10 Numeric Is Patient Pain Free? Yes WC - Nurse 3 - General Ulcer D/C NN Start: 04/28/20 14:49 Freq: Status: Active Protocol: Activity Type Activity Date Activity User E-Sign Co-Sign Detail Recorded Client Recorded Date Recorded By Document 04/28/20 15:21 MW [id number] 04/28/20 15:22 MW Document 05/05/20 14:58 MW [id number] 05/05/20 14:59 MW Document 05/12/20 14:03 PL [id number] 05/12/20 14:04 PL Document 05/19/20 14:24 MW [id number] 05/19/20 14:25 MW 04/28/20 05/05/20 05/12/20 15:21 14:58 14:03 Wound Care Nurse 3 #1- LEFT GROIN- POST OP -Ulcer Cleansing Rinsed/ Rinsed/ Rinsed/ Irrigated with Irrigated with Irrigated with Saline Saline Saline -Foul Odor after Cleansing No No No -Negative Pressure Wound Therapy N/A N/A -Primary Dressing Applied Aquacel AG 4x4 [place] -Primary Dressing Covered/Secured with Dry Gauze, Dry Gauze, Dry Gauze, Secured with Secured with Secured with Tape Tape Tape -Aquacel AG 4x4 1 -Silvercel 1 Treatment Response Procedure Procedure Tolerated Well Tolerated Well Pain Scale: 0-10 Numeric Is Patient Pain Free? Yes Yes Teaching: Wound Center Dressing Your Wound -Person Taught Patient Patient -Teaching Method Discussion Discussion -Response to teaching Verbalize Verbalize understanding understanding WC - Visit Discharge Discharge Condition Stable Stable Ambulatory Status Ambulatory Ambulatory Transportation Private Auto Private Auto Accompanied by SELF self Medication Reconcilliation completed & No No provided to patient/care provider Clinical Summary of Care Provided Yes Yes 05/19/20 14:24 Wound Care Nurse 3 #1- LEFT GROIN- POST OP -Ulcer Cleansing Rinsed/ Irrigated with Saline -Foul Odor after Cleansing No -Negative Pressure Wound Therapy N/A -Primary Dressing Applied Aquacel AG 4x4 -Primary Dressing Covered/Secured with Dry Gauze, Secured with Tape -Aquacel AG 4x4 1 -Silvercel Treatment Response Procedure Tolerated Well Pain Scale: 0-10 Numeric Is Patient Pain Free? Yes Teaching: Wound Center Dressing Your Wound -Person Taught Patient -Teaching Method Discussion -Response to teaching Verbalize understanding WC - Visit Discharge Discharge Condition Stable Ambulatory Status Ambulatory Transportation Private Auto Accompanied by self Medication Reconcilliation completed & No provided to patient/care provider Clinical Summary of Care Provided Yes Wound debrided: Left groin ulcer status post surgical debridement of necrotizing fasciitis Laterality: Left Type of Debridement: Excisional debridement Anesthesia Used: 5% Lidocaine Gel Depth: in the subcutaneous layer Percentage of wound debrided: 100 Instrument Used: 5mm curette Tissue Removed: Slough and devitalized tissue Severity: Fat Layer Exposed Amount of bleeding with debridement: Moderate Bleeding Controlled with: Pressure, Compression and gauze, Silver Nitrate Patient tolerated procedure well Assessment/Plan Active Problems Intertrigo (Chronic) abdominal wall skin crease intertrigo Abdominal panniculus (Chronic) History of necrotising fasciitis (Chronic) Lymphedema of both lower extremities (Acute) Type 2 diabetes mellitus (Chronic) Diabetic neuropathy (Chronic) Morbid obesity (Chronic) Non-healing surgical wound of left groin (Chronic) x 3 Skin ulcer of abdominal wall with fat layer exposed (Chronic) left abdominal fold and left medial groin cluster ulcers Assessment: Nonhealing postsurgical wound left groin status post surgical excision of necrotizing fasciitis. Morbid obesity. Type 2 diabetes mellitus Plan: Debridement done as documented above. Procedure was well-tolerated. Recent culture reviewed with patient and patient started on Clindagel. Continue Aquacel silver daily to twice daily depending on drainage. Optimal diabetes control again discussed. Continue increased protein intake. His questions were answered and he was advised to call with any further questions or concerns. Follow-up in 1 week at wound healing center. Surgery still on hold. This note was generated with [employer] dictation software. It may contain incorrect words, spelling, and punctuation that were not noted in checking the note before signing. [id number]: [id number] Jessica subq tissue 20 sq cm/< [id number]: [id number] Chemical cautery tissue
== END 2020-05-22 23:59 ==
LOC: WC 13:45
PROVIDERS: Family Provider Family Medicine; PCP Family Medicine; Referring Provider Nurse Practitioner Family; Visit Provider Nurse Practitioner Family
DX: T81.89XA Other complications of procedures, not elsewhere classified, initial encounter (principal); L98.492 Non-pressure chronic ulcer of skin of other sites with fat layer exposed; E11.40 Type 2 diabetes mellitus with diabetic neuropathy, unspecified; I89.0 Lymphedema, not elsewhere classified; E65 Localized adiposity; L30.4 Erythema intertrigo; F20.9 Schizophrenia, unspecified; E66.01 Morbid (severe) obesity due to excess calories; Z79.4 Long term (current) use of insulin; Z79.899 Other long term (current) drug therapy; Z87.39 Personal history of other diseases of the musculoskeletal system and connective tissue
CPT/HCPCS: 11042; 17250; 36415; 83036; 84134; 87070; 87075; 87077; 87186; 87205

== ENCOUNTER 2020-06-16 13:30 | Outpatient (RCR) | payer MEDICARE, MEDICAID, SELFPAY ==
[2020-05-23 00:18] VITALS: BP 119/55; PULSE 65; RESP 20; TEMP 36.6
[2020-05-26 13:46] VITALS: BP 117/64; PULSE 75; RESP 20; TEMP 36.6
--- NOTE | 2020-05-26 15:52 | PN.PCM_ITS ---
(1) Non-healing surgical wound of left groin Status: Chronic Qualifiers: Code(s): T81.89XA - Other complications of procedures, not elsewhere classified, initial encounter Comment: x 3 (2) Lymphedema of both lower extremities Status: Acute Code(s): I89.0 - Lymphedema, not elsewhere classified (3) Abdominal panniculus Status: Chronic Code(s): E65 - Localized adiposity (4) Diabetic neuropathy Status: Chronic Code(s): E11.40 - Type 2 diabetes mellitus with diabetic neuropathy, unspecified (5) History of necrotising fasciitis Status: Chronic Code(s): Z87.39 - Personal history of other diseases of the musculoskeletal system and connective tissue (6) Intertrigo Status: Chronic Code(s): L30.4 - Erythema intertrigo Comment: abdominal wall skin crease intertrigo (7) Morbid obesity Status: Chronic Code(s): E66.01 - Morbid (severe) obesity due to excess calories (8) Type 2 diabetes mellitus Status: Chronic Qualifiers: Code(s): E11.9 - Type 2 diabetes mellitus without complications (9) Ulcer of left groin with fat layer exposed Status: Chronic Code(s): L98.492 - Non-pressure chronic ulcer of skin of other sites with fat layer exposed Comment: x 2 Type of Wound Date of Service: 05/26/20 Chief Complaint: Nonhealing wound status post surgical excision of necrotizing fasciitis left groin History of Wound: 46-year-old white male who presents to the wound healing center today with complaint of left groin ulceration status post surgical excision of necrotizing fasciitis. He is a past medical history which is significant for that of type 2 diabetes mellitus, gout, diabetic neuropathy, schizophrenia, bilateral lymphedema, and schizophrenia. The patient states that what initially started as a pimple in his left groin progressed to necrotizing fasciitis and he had to have this surgically debrided in April 2017. [facility] and then [facility]. He states that the groin ulcer which extends to his left lower abdomen has been slowly improving and he has been doing daily Aquacel AG dressings with an ABD for the drainage. He does state that he has had 3 wound vacs in the past which were unable to be utilized due to the location of his wound. He denies any foul-smelling discharge or systemic signs of infection at this time. The patient otherwise denies any fever, chills, nausea, vomiting, shortness of breath, chest pain or pressure, palpitations, orthopnea, syncope or presyncopal episodes. Progress of Wound: Left groin medial ulcer has healed, lateral ulcer somewhat improved, patient reports improved blood sugar readings, A1c was 5.8 which is drastically improved. No new concerns at this time. Most recent wound culture showed Corynebacterium and patient was started on clindamycin gel topically twice a day which he is utilizing. Sensitivity also returned and showed sensitive erythromycin which patient was started on today. - Physical Exam Vital Signs Temp Pulse Resp BP 97.9 F 75 20 H 117/64 05/26/20 13:46 05/26/20 13:46 05/26/20 13:46 05/26/20 13:46 General: Alert, Oriented x3, Cooperative, No apparent distress HEENT: Atraumatic Oral: Moist Mucosa Lungs: Clear to auscultation, Normal air movement Cardiovascular: Regular rate, Regular Rhythm Abdomen: Soft, Non Tender, Obese Extremities: No clubbing, No cyanosis, No edema Skin: Ulcer/ Wound - See nursing documentation, slough and devitalized tissue, no signs of obvious infection at this time Wound Measurements and Assessment WC - Nurse 1 - General Ulcer Measurement Start: 05/26/20 13:46 Freq: Status: Active Protocol: Activity Type Activity Date Activity User E-Sign Co-Sign Detail Recorded Client Recorded Date Recorded By Document 05/26/20 13:46 PL [id number] 05/26/20 13:55 PL 05/26/20 13:46 Wound Center Nurse 1 [Ulcer Assessment] #1- LEFT GROIN- POST OP -Current Size (cm) - Length 1 -Current Size (cm) - Width 6.8 -Current Size (cm) - Depth 0.5 -Total Square Cm 6.8 -Photo Taken No -Exudate Amt Medium -Exudate Type Serosanguineous -Wound Margin Thickened & Rolled Under -Granulation Amt Large (67-100%) -Granulation Quality Pale,[place] -Necrosis Amt Small (1-33%) -Necrotic Tissue Type Adherent Slough -Texture (Inessa-wound Skin Appearance) Scarring -Moisture (Inessa-wound Skin Appearance Maceration ) -Color (Inessa-wound Skin Appearance) No Abnormality -Temperature (Inessa-wound Skin No Abnormality Appearance) (Pt Warm) -Tenderness on Palpation (Inessa-wound No Skin Appearance) -Ulcer Cleansing Rinsed/ Irrigated with Saline -Foul Odor after Cleansing No -Anesthetic Used 4% Lidocaine Solution RAMÓN - Nurse 2 - General Ulcer CM Notes Start: 05/26/20 13:46 Freq: Status: Active Protocol: Activity Type Activity Date Activity User E-Sign Co-Sign Detail Recorded Client Recorded Date Recorded By Document 05/26/20 14:14 MW [id number] 05/26/20 14:17 MW 05/26/20 14:14 Wound Center Nurse 2 [Procedure/Treatment] -Time 14:14 -Correct Patient Yes -Correct Side, Site, Position Yes -Correct Procedure Yes -Procedure Performed Yes -Type of Procedure Chemical Cauterization ( $) -Clinical Debridement Subcutaneous -Tissue Removed Subcutaneous -Post Debridement (cm) - Length 1.5 -Post Debridement (cm) - Width 7.0 -Post Debridement (cm) - Depth 0.1 -Total Square (Post) (cm) 10.50 -Area of Debridement (cm) - Length 1.5 -Area of Debridement (cm) - Width 7.0 -Total Square (Area) (cm) 10.50 -Tunneling No -Undermining/Tunneling No -Circular Undermining No -Wound/Ulcer Outcome Not Healed -Ulcer Cleansing Rinsed/ Irrigated with Saline -Foul Odor after Cleansing No -Bioengineered Tissue No -Bleeding Controlled with Pressure,Silver Nitrate, SURGIFOAM -Offloading No -Treatment Response Procedure Tolerated Well -Debridement - Subq, 1st 20sq cm Yes [See Physician Procedure note for Specifics] Pain Scale: 0-10 Numeric [Pain] -Is Patient Pain Free? Yes RAMÓN - Nurse 3 - General Ulcer D/C NN Start: 05/26/20 13:46 Freq: Status: Active Protocol: Activity Type Activity Date Activity User E-Sign Co-Sign Detail Recorded Client Recorded Date Recorded By Document 05/26/20 14:18 MW [id number] 05/26/20 14:21 MW 05/26/20 14:18 Wound Care Nurse 3 [Wound Dressing] #1- LEFT GROIN- POST OP -Ulcer Cleansing Not Cleansed -Foul Odor after Cleansing No -Negative Pressure Wound Therapy N/A -Primary Dressing Covered/Secured Dry Gauze, with Secured with Tape [Post Procedure Tolerated] -Treatment Response Procedure Tolerated Well Teaching: Wound Center [Wound Center Education] (Items with an * have Printed Materials Available- Please identify what is given to patient under the Teaching materials given to patient and caregiver Section. Dressing Your Wound -Person Taught Patient -Teaching Method Discussion, Demonstration -Response to teaching Verbalize understanding WC - Visit Discharge [Visit Discharge Information] -Discharge Condition Stable -Ambulatory Status Ambulatory -Transportation Private Auto -Accompanied by brother -Medication Reconcilliation completed No & provided to patient/care provider -Clinical Summary of Care Provided Yes Neurological: Neuro grossly intact Psych/Mental Status: Normal Affect, Appropriate, Alert and oriented to time, place, person, mood and affect Debridement Note Post-Debridement Measurements/Treatment - Nurse 2 - General Ulcer CM Notes Start: 05/26/20 13:46 Freq: Status: Active Protocol: Activity Type Activity Date Activity User E-Sign Co-Sign Detail Recorded Client Recorded Date Recorded By Document 05/26/20 14:14 MW [id number] 05/26/20 14:17 MW 05/26/20 14:14 Wound Center Nurse 2 #1- LEFT GROIN- POST OP -Time 14:14 -Correct Patient Yes -Correct Side, Site, Position Yes -Correct Procedure Yes -Procedure Performed Yes -Type of Procedure Chemical Cauterization ( $) -Clinical Debridement Subcutaneous -Tissue Removed Subcutaneous -Post Debridement (cm) - Length 1.5 -Post Debridement (cm) - Width 7.0 -Post Debridement (cm) - Depth 0.1 -Total Square (Post) (cm) 10.50 -Area of Debridement (cm) - Length 1.5 -Area of Debridement (cm) - Width 7.0 -Total Square (Area) (cm) 10.50 -Tunneling No -Undermining/Tunneling No -Circular Undermining No -Wound/Ulcer Outcome Not Healed -Ulcer Cleansing Rinsed/ Irrigated with Saline -Foul Odor after Cleansing No -Bioengineered Tissue No -Bleeding Controlled with Pressure,Silver Nitrate, SURGIFOAM -Offloading No -Treatment Response Procedure Tolerated Well -Debridement - Subq, 1st 20sq cm Yes Pain Scale: 0-10 Numeric Is Patient Pain Free? Yes - Nurse 3 - General Ulcer D/C NN Start: 05/26/20 13:46 Freq: Status: Active Protocol: Activity Type Activity Date Activity User E-Sign Co-Sign Detail Recorded Client Recorded Date Recorded By Document 05/26/20 14:18 MW [id number] 05/26/20 14:21 MW 05/26/20 14:18 Wound Care Nurse 3 #1- LEFT GROIN- POST OP -Ulcer Cleansing Not Cleansed -Foul Odor after Cleansing No -Negative Pressure Wound Therapy N/A -Primary Dressing Covered/Secured with Dry Gauze, Secured with Tape Treatment Response Procedure Tolerated Well Teaching: Wound Center Dressing Your Wound -Person Taught Patient -Teaching Method Discussion, Demonstration -Response to teaching Verbalize understanding WC - Visit Discharge Discharge Condition Stable Ambulatory Status Ambulatory Transportation Private Auto Accompanied by brother Medication Reconcilliation completed & No provided to patient/care provider Clinical Summary of Care Provided Yes Wound debrided: Left groin ulcer status post necrotizing fasciitis Laterality: Left Type of Debridement: Excisional debridement Anesthesia Used: 5% Lidocaine Gel Depth: in the subcutaneous layer Percentage of wound debrided: 100 Instrument Used: 5mm curette Tissue Removed: Slough and devitalized tissue Severity: Fat Layer Exposed Amount of bleeding with debridement: Mild Bleeding Controlled with: Pressure Patient tolerated procedure well Assessment/Plan Active Problems Intertrigo (Chronic) abdominal wall skin crease intertrigo Abdominal panniculus (Chronic) Ulcer of left groin with fat layer exposed (Chronic) x 2 History of necrotising fasciitis (Chronic) Lymphedema of both lower extremities (Acute) Type 2 diabetes mellitus (Chronic) Diabetic neuropathy (Chronic) Morbid obesity (Chronic) Non-healing surgical wound of left groin (Chronic) x 3 Assessment: Nonhealing postsurgical wound left groin status post surgical excision of necrotizing fasciitis. Morbid obesity. Type 2 diabetes mellitus Plan: Debridement done as documented above. Procedure was well-tolerated. Recent culture reviewed with patient and patient started on Clindagel topically and erythromycin orally. Continue Aquacel silver daily to twice daily depending on drainage. Optimal diabetes control again discussed. Continue increased protein intake. His questions were answered and he was advised to call with any further questions or concerns. Follow-up in 1 week at wound healing center. Surgery still on hold. This note was generated with Madefireation software. It may contain incorrect words, spelling, and punctuation that were not noted in checking the note before signing. [id number]: [id number] Jessica subq tissue 20 sq cm/< [id number]: [id number] Chemical cautery tissue
[2020-06-02 13:48] VITALS: BP 117/64; PULSE 82; RESP 22; TEMP 36.6
--- NOTE | 2020-06-02 15:08 | PCM.WC.PN ---
(1) Non-healing surgical wound of left groin Status: Chronic Qualifiers: Code(s): T81.89XA - Other complications of procedures, not elsewhere classified, initial encounter Comment: x 3 (2) Lymphedema of both lower extremities Status: Acute Code(s): I89.0 - Lymphedema, not elsewhere classified (3) Abdominal panniculus Status: Chronic Code(s): E65 - Localized adiposity (4) Diabetic neuropathy Status: Chronic Code(s): E11.40 - Type 2 diabetes mellitus with diabetic neuropathy, unspecified (5) History of necrotising fasciitis Status: Chronic Code(s): Z87.39 - Personal history of other diseases of the musculoskeletal system and connective tissue (6) Intertrigo Status: Chronic Code(s): L30.4 - Erythema intertrigo Comment: abdominal wall skin crease intertrigo (7) Morbid obesity Status: Chronic Code(s): E66.01 - Morbid (severe) obesity due to excess calories (8) Type 2 diabetes mellitus Status: Chronic Qualifiers: Code(s): E11.9 - Type 2 diabetes mellitus without complications (9) Ulcer of left groin with fat layer exposed Status: Chronic Code(s): L98.492 - Non-pressure chronic ulcer of skin of other sites with fat layer exposed Comment: x 2 Type of Wound Date of Service: 06/02/20 Chief Complaint: Nonhealing wound status post surgical excision of necrotizing fasciitis left groin History of Wound: 46-year-old white male who presents to the wound healing center today with complaint of left groin ulceration status post surgical excision of necrotizing fasciitis. He is a past medical history which is significant for that of type 2 diabetes mellitus, gout, diabetic neuropathy, schizophrenia, bilateral lymphedema, and schizophrenia. The patient states that what initially started as a pimple in his left groin progressed to necrotizing fasciitis and he had to have this surgically debrided in April 2017. He was admitted to [facility] for [facility] weeks and then [facility] afterwards. He states that the groin ulcer which extends to his left lower abdomen has been slowly improving and he has been doing daily Aquacel AG dressings with an ABD for the drainage. He does state that he has had 3 wound vacs in the past which were unable to be utilized due to the location of his wound. He denies any foul-smelling discharge or systemic signs of infection at this time. The patient otherwise denies any fever, chills, nausea, vomiting, shortness of breath, chest pain or pressure, palpitations, orthopnea, syncope or presyncopal episodes. Progress of Wound: Left groin medial ulcer has healed, lateral ulcer stable, patient reports improved blood sugar readings, A1c was 5.8 which is drastically improved. No new concerns at this time. Most recent wound culture showed Corynebacterium and patient was started on clindamycin gel topically twice a day which he is utilizing. Sensitivity also returned and showed sensitive erythromycin which patient was started on prior but had only been taking once a day instead of 3 times a day. - Physical Exam Vital Signs Temp Pulse Resp BP 97.8 F 82 22 H 117/64 06/02/20 13:48 06/02/20 13:48 06/02/20 13:48 06/02/20 13:48 General: Alert, Oriented x3, Cooperative, No apparent distress HEENT: Atraumatic Oral: Moist Mucosa Lungs: Clear to auscultation, Normal air movement Cardiovascular: Regular rate Abdomen: Soft, Non Tender, Obese Extremities: No clubbing, No cyanosis, No edema Skin: Ulcer/ Wound - See nursing documentation, slough and devitalized tissue present, no signs of obvious infection at this time Wound Measurements and Assessment WC - Nurse 1 - General Ulcer Measurement Start: 05/26/20 13:46 Freq: Status: Active Protocol: Activity Type Activity Date Activity User E-Sign Co-Sign Detail Recorded Client Recorded Date Recorded By Document 06/02/20 13:48 DL [id number] 06/02/20 13:55 DL 06/02/20 13:48 Wound Center Nurse 1 [Ulcer Assessment] #1- LEFT GROIN- POST OP -Current Size (cm) - Length 1 -Current Size (cm) - Width 7 -Current Size (cm) - Depth 0.3 -Total Square Cm 7 -Photo Taken No -Exudate Amt Small -Exudate Type Serosanguineous -Wound Margin Thickened & Rolled Under -Granulation Amt Large (67-100%) -Granulation Quality [place],Red -Necrosis Amt Small (1-33%) -Necrotic Tissue Type Adherent Slough -Structure Exposed N/A -Texture (Inessa-wound Skin Appearance) Scarring -Moisture (Inessa-wound Skin Appearance No Abnormality ) -Color (Inessa-wound Skin Appearance) No Abnormality -Temperature (Inessa-wound Skin No Abnormality Appearance) (Pt Warm) -Tenderness on Palpation (Inessa-wound No Skin Appearance) -Ulcer Cleansing Rinsed/ Irrigated with Saline -Foul Odor after Cleansing No -Anesthetic Used 4% Lidocaine Solution RAMÓN - Nurse 2 - General Ulcer CM Notes Start: 05/26/20 13:46 Freq: Status: Active Protocol: Activity Type Activity Date Activity User E-Sign Co-Sign Detail Recorded Client Recorded Date Recorded By Document 06/02/20 14:12 MW [id number] 06/02/20 14:15 MW 06/02/20 14:12 Wound Center Nurse 2 [Procedure/Treatment] -Time 14:12 -Correct Patient Yes -Correct Side, Site, Position Yes -Correct Procedure Yes -Procedure Performed Yes -Type of Procedure Debridement -Clinical Debridement Subcutaneous -Tissue Removed Subcutaneous -Post Debridement (cm) - Length 1.8 -Post Debridement (cm) - Width 6.9 -Post Debridement (cm) - Depth 6.9 -Total Square (Post) (cm) 12.42 -Area of Debridement (cm) - Length 1.8 -Area of Debridement (cm) - Width 6.9 -Total Square (Area) (cm) 12.42 -Tunneling No -Undermining/Tunneling No -Circular Undermining No -Wound/Ulcer Outcome Not Healed -Ulcer Cleansing Rinsed/ Irrigated with Saline -Foul Odor after Cleansing No -Bioengineered Tissue No -Bleeding Controlled with Pressure -Offloading No -Treatment Response Procedure Tolerated Well -Debridement - Subq, 1st 20sq cm Yes [See Physician Procedure note for Specifics] Pain Scale: 0-10 Numeric [Pain] -Is Patient Pain Free? Yes RAMÓN - Nurse 3 - General Ulcer D/C NN Start: 05/26/20 13:46 Freq: Status: Active Protocol: Activity Type Activity Date Activity User E-Sign Co-Sign Detail Recorded Client Recorded Date Recorded By Document 06/02/20 14:23 MW [id number] 06/02/20 14:23 MW 06/02/20 14:23 Wound Care Nurse 3 [Wound Dressing] #1- LEFT GROIN- POST OP -Ulcer Cleansing Rinsed/ Irrigated with Saline -Foul Odor after Cleansing No -Negative Pressure Wound Therapy N/A -Other Dressing aquacel ag -Primary Dressing Covered/Secured Dry Gauze, with Secured with Tape [Post Procedure Tolerated] -Treatment Response Procedure Tolerated Well Pain Scale: 0-10 Numeric [Pain] -Is Patient Pain Free? Yes Teaching: Wound Center [Wound Center Education] (Items with an * have Printed Materials Available- Please identify what is given to patient under the Teaching materials given to patient and caregiver Section. Dressing Your Wound -Person Taught Patient -Teaching Method Discussion -Response to teaching Verbalize understanding WC - Visit Discharge [Visit Discharge Information] -Discharge Condition Stable -Ambulatory Status Ambulatory -Transportation Private Auto -Accompanied by brother -Medication Reconcilliation completed No & provided to patient/care provider -Clinical Summary of Care Provided Yes Neurological: Neuro grossly intact Psych/Mental Status: Normal Affect, Appropriate, Alert and oriented to time, place, person, mood and affect Debridement Note Post-Debridement Measurements/Treatment WC - Nurse 2 - General Ulcer CM Notes Start: 05/26/20 13:46 Freq: Status: Active Protocol: Activity Type Activity Date Activity User E-Sign Co-Sign Detail Recorded Client Recorded Date Recorded By Document 05/26/20 14:14 MW [id number] 05/26/20 14:17 MW Document 06/02/20 14:12 MW [id number] 06/02/20 14:15 MW 05/26/20 06/02/20 14:14 14:12 Wound Center Nurse 2 #1- LEFT GROIN- POST OP -Time 14:14 14:12 -Correct Patient Yes Yes -Correct Side, Site, Position Yes Yes -Correct Procedure Yes Yes -Procedure Performed Yes Yes -Type of Procedure Chemical Debridement Cauterization ( $) -Clinical Debridement Subcutaneous Subcutaneous -Tissue Removed Subcutaneous Subcutaneous -Post Debridement (cm) - Length 1.5 1.8 -Post Debridement (cm) - Width 7.0 6.9 -Post Debridement (cm) - Depth 0.1 6.9 -Total Square (Post) (cm) 10.50 12.42 -Area of Debridement (cm) - Length 1.5 1.8 -Area of Debridement (cm) - Width 7.0 6.9 -Total Square (Area) (cm) 10.50 12.42 -Tunneling No No -Undermining/Tunneling No No -Circular Undermining No No -Wound/Ulcer Outcome Not Healed Not Healed -Ulcer Cleansing Rinsed/ Rinsed/ Irrigated with Irrigated with Saline Saline -Foul Odor after Cleansing No No -Bioengineered Tissue No No -Bleeding Controlled with Pressure,Silver Pressure Nitrate, SURGIFOAM -Offloading No No -Treatment Response Procedure Procedure Tolerated Well Tolerated Well -Debridement - Subq, 1st 20sq cm Yes Yes Pain Scale: 0-10 Numeric Is Patient Pain Free? Yes Yes WC - Nurse 3 - General Ulcer D/C NN Start: 05/26/20 13:46 Freq: Status: Active Protocol: Activity Type Activity Date Activity User E-Sign Co-Sign Detail Recorded Client Recorded Date Recorded By Document 05/26/20 14:18 MW [id number] 05/26/20 14:21 MW Document 06/02/20 14:23 MW [id number] 06/02/20 14:23 MW 05/26/20 06/02/20 14:18 14:23 Wound Care Nurse 3 #1- LEFT GROIN- POST OP -Ulcer Cleansing Not Cleansed Rinsed/ Irrigated with Saline -Foul Odor after Cleansing No No -Negative Pressure Wound Therapy N/A N/A -Other Dressing aquacel ag -Primary Dressing Covered/Secured with Dry Gauze, Dry Gauze, Secured with Secured with Tape Tape Treatment Response Procedure Procedure Tolerated Well Tolerated Well Pain Scale: 0-10 Numeric Is Patient Pain Free? Yes Teaching: Wound Center Dressing Your Wound -Person Taught Patient Patient -Teaching Method Discussion, Discussion Demonstration -Response to teaching Verbalize Verbalize understanding understanding WC - Visit Discharge Discharge Condition Stable Stable Ambulatory Status Ambulatory Ambulatory Transportation Private Auto Private Auto Accompanied by brother brother Medication Reconcilliation completed & No No provided to patient/care provider Clinical Summary of Care Provided Yes Yes Wound debrided: Left groin ulcer Laterality: Left Type of Debridement: Excisional debridement Anesthesia Used: 5% Lidocaine Gel Depth: in the subcutaneous layer Percentage of wound debrided: 100 Instrument Used: 5mm curette Tissue Removed: Slough and devitalized tissue Severity: Fat Layer Exposed Amount of bleeding with debridement: Mild Bleeding Controlled with: Pressure Patient tolerated procedure well Assessment/Plan Active Problems Intertrigo (Chronic) abdominal wall skin crease intertrigo Abdominal panniculus (Chronic) Ulcer of left groin with fat layer exposed (Chronic) x 2 History of necrotising fasciitis (Chronic) Lymphedema of both lower extremities (Acute) Type 2 diabetes mellitus (Chronic) Diabetic neuropathy (Chronic) Morbid obesity (Chronic) Non-healing surgical wound of left groin (Chronic) x 3 Assessment: Nonhealing postsurgical wound left groin status post surgical excision of necrotizing fasciitis. Morbid obesity. Type 2 diabetes mellitus Plan: Debridement done as documented above. Procedure was well-tolerated. Recent culture reviewed with patient and patient started on Clindagel topically and erythromycin orally which she is tolerating. Continue Aquacel silver daily to twice daily depending on drainage. Optimal diabetes control again discussed. Continue increased protein intake. His questions were answered and he was advised to call with any further questions or concerns. Follow-up in 1 week at wound healing center. Surgery still on hold. This note was generated with [employer] dictation software. It may contain incorrect words, spelling, and punctuation that were not noted in checking the note before signing. [id number]: [id number] Jessica subq tissue 20 sq cm/<
[2020-06-09 13:27] VITALS: BP 102/69; PULSE 67; TEMP 35.9
--- NOTE | 2020-06-09 15:38 | PN.PCM_ITS ---
(1) Non-healing surgical wound of left groin Status: Chronic Qualifiers: Code(s): T81.89XA - Other complications of procedures, not elsewhere classified, initial encounter Comment: x 3 (2) Lymphedema of both lower extremities Status: Acute Code(s): I89.0 - Lymphedema, not elsewhere classified (3) Abdominal panniculus Status: Chronic Code(s): E65 - Localized adiposity (4) Diabetic neuropathy Status: Chronic Code(s): E11.40 - Type 2 diabetes mellitus with diabetic neuropathy, unspecified (5) History of necrotising fasciitis Status: Chronic Code(s): Z87.39 - Personal history of other diseases of the musculoskeletal system and connective tissue (6) Intertrigo Status: Chronic Code(s): L30.4 - Erythema intertrigo Comment: abdominal wall skin crease intertrigo (7) Morbid obesity Status: Chronic Code(s): E66.01 - Morbid (severe) obesity due to excess calories (8) Type 2 diabetes mellitus Status: Chronic Qualifiers: Code(s): E11.9 - Type 2 diabetes mellitus without complications (9) Ulcer of left groin with fat layer exposed Status: Chronic Code(s): L98.492 - Non-pressure chronic ulcer of skin of other sites with fat layer exposed Comment: x 2 Type of Wound Date of Service: 06/09/20 Chief Complaint: Nonhealing wound status post surgical excision of necrotizing fasciitis left groin History of Wound: 46-year-old white male who presents to the wound healing center today with complaint of left groin ulceration status post surgical excision of necrotizing fasciitis. He is a past medical history which is significant for that of type 2 diabetes mellitus, gout, diabetic neuropathy, schizophrenia, bilateral lymphedema, and schizophrenia. The patient states that what initially started as a pimple in his left groin progressed to necrotizing fasciitis and he had to have this surgically debrided in April 2017. He was admitted to [facility] for 2 weeks and then [facility] for 6 weeks afterwards. He states that the groin ulcer which extends to his left lower abdomen has been slowly improving and he has been doing daily Aquacel AG dressings with an ABD for the drainage. He does state that he has had 3 wound vacs in the past which were unable to be utilized due to the location of his wound. He denies any foul-smelling discharge or systemic signs of infection at this time. The patient otherwise denies any fever, chills, nausea, vomiting, shortness of breath, chest pain or pressure, palpitations, orthopnea, syncope or presyncopal episodes. Progress of Wound: Left groin medial ulcer has healed, lateral ulcer stable, patient reports improved blood sugar readings, A1c was 5.8 which is drastically improved. No new concerns at this time. Most recent wound culture showed Corynebacterium and patient was started on clindamycin gel topically twice a day which he is utilizing. Sensitivity also returned and showed sensitive erythromycin which patient is tolerating. - Physical Exam Vital Signs Temp Pulse Resp BP 96.7 F L 67 22 H 102/69 06/09/20 13:27 06/09/20 13:27 06/02/20 13:48 06/09/20 13:27 General: Alert, Oriented x3, Cooperative, No apparent distress HEENT: Atraumatic Oral: Moist Mucosa Neck: Supple, No JVD Lungs: Clear to auscultation, Normal air movement Cardiovascular: Regular rate, Regular Rhythm Abdomen: Soft, Non Tender Extremities: No clubbing, No cyanosis, No edema Skin: Ulcer/ Wound - see nursing documentation, slough and devitalized tissue present, no signs of infection at this time Wound Measurements and Assessment WC - Nurse 1 - General Ulcer Measurement Start: 05/26/20 13:46 Freq: Status: Active Protocol: Activity Type Activity Date Activity User E-Sign Co-Sign Detail Recorded Client Recorded Date Recorded By Document 06/09/20 13:27 SILAS [id number] 06/09/20 13:30 SILAS 06/09/20 13:27 Wound Center Nurse 1 [Ulcer Assessment] #1- LEFT GROIN- POST OP -Current Size (cm) - Length 1 -Current Size (cm) - Width 6.8 -Current Size (cm) - Depth 0.5 -Total Square Cm 6.8 -Exudate Amt Medium -Exudate Type Serosanguineous -Wound Margin Distinct, Outline Attached -Granulation Amt Large (67-100%) -Granulation Quality Red -Necrosis Amt None Present (0 %) -Texture (Inessa-wound Skin Appearance) Assessed, Scarring -Moisture (Inessa-wound Skin Appearance No Abnormality, ) Assessed -Color (Inessa-wound Skin Appearance) No Abnormality, Assessed -Temperature (Inessa-wound Skin No Abnormality Appearance) (Pt Warm) -Tenderness on Palpation (Inessa-wound No Skin Appearance) -Ulcer Cleansing Rinsed/ Irrigated with Saline -Foul Odor after Cleansing No -Anesthetic Used 4% Lidocaine Solution [id number] - Nurse 2 - General Ulcer CM Notes Start: 05/26/20 13:46 Freq: Status: Active Protocol: Activity Type Activity Date Activity User E-Sign Co-Sign Detail Recorded Client Recorded Date Recorded By Document 06/09/20 13:43 MW [id number] 06/09/20 13:45 MW 06/09/20 13:43 Wound Center Nurse 2 [Procedure/Treatment] -Time 13:43 -Correct Patient Yes -Correct Side, Site, Position Yes -Correct Procedure Yes -Procedure Performed Yes -Type of Procedure Debridement -Clinical Debridement Subcutaneous -Tissue Removed Subcutaneous -Post Debridement (cm) - Length 1.4 -Post Debridement (cm) - Width 7.2 -Post Debridement (cm) - Depth 0.1 -Total Square (Post) (cm) 10.08 -Area of Debridement (cm) - Length 1.4 -Area of Debridement (cm) - Width 7.2 -Total Square (Area) (cm) 10.08 -Tunneling No -Undermining/Tunneling No -Circular Undermining No -Wound/Ulcer Outcome Not Healed -Ulcer Cleansing Rinsed/ Irrigated with Saline -Foul Odor after Cleansing No -Bioengineered Tissue No -Bleeding Controlled with Pressure -Offloading No -Treatment Response Procedure Tolerated Well -Debridement - Subq, 1st 20sq cm Yes [See Physician Procedure note for Specifics] Pain Scale: 0-10 Numeric [Pain] -Is Patient Pain Free? Yes RAMÓN - Nurse 3 - General Ulcer D/C NN Start: 05/26/20 13:46 Freq: Status: Active Protocol: Activity Type Activity Date Activity User E-Sign Co-Sign Detail Recorded Client Recorded Date Recorded By Document 06/09/20 13:49 DL [id number] 06/09/20 13:50 DL 06/09/20 13:49 Wound Care Nurse 3 [Wound Dressing] #1- LEFT GROIN- POST OP -Ulcer Cleansing Rinsed/ Irrigated with Saline -Foul Odor after Cleansing No -Primary Dressing Applied Aquacel AG 4x4 -Primary Dressing Covered/Secured Dry Gauze, with Secured with Tape -Aquacel AG 4x4 1 [Post Procedure Tolerated] -Treatment Response Procedure Tolerated Well Pain Scale: 0-10 Numeric [Pain] -Is Patient Pain Free? Yes WC - Visit Discharge [Visit Discharge Information] -Discharge Condition Stable -Ambulatory Status Ambulatory -Transportation Private Auto [Facility Notification] -Facility Type Home Health -Orders Sent Yes Musculoskeletal: No Tenderness to Palpation of Joints or Extremities, No Muscle Wasting Neurological: Neuro grossly intact Psych/Mental Status: Normal Affect, Appropriate, Alert and oriented to time, place, person, mood and affect Debridement Note Post-Debridement Measurements/Treatment WC - Nurse 2 - General Ulcer CM Notes Start: 05/26/20 13:46 Freq: Status: Active Protocol: Activity Type Activity Date Activity User E-Sign Co-Sign Detail Recorded Client Recorded Date Recorded By Document 05/26/20 14:14 MW [id number] 05/26/20 14:17 MW Document 06/02/20 14:12 MW [id number] 06/02/20 14:15 MW Document 06/09/20 13:43 MW [id number] 06/09/20 13:45 MW 05/26/20 06/02/20 06/09/20 14:14 14:12 13:43 Wound Center Nurse 2 #1- LEFT GROIN- POST OP -Time 14:14 14:12 13:43 -Correct Patient Yes Yes Yes -Correct Side, Site, Position Yes Yes Yes -Correct Procedure Yes Yes Yes -Procedure Performed Yes Yes Yes -Type of Procedure Chemical Debridement Debridement Cauterization ( $) -Clinical Debridement Subcutaneous Subcutaneous Subcutaneous -Tissue Removed Subcutaneous Subcutaneous Subcutaneous -Post Debridement (cm) - Length 1.5 1.8 1.4 -Post Debridement (cm) - Width 7.0 6.9 7.2 -Post Debridement (cm) - Depth 0.1 6.9 0.1 -Total Square (Post) (cm) 10.50 12.42 10.08 -Area of Debridement (cm) - Length 1.5 1.8 1.4 -Area of Debridement (cm) - Width 7.0 6.9 7.2 -Total Square (Area) (cm) 10.50 12.42 10.08 -Tunneling No No No -Undermining/Tunneling No No No -Circular Undermining No No No -Wound/Ulcer Outcome Not Healed Not Healed Not Healed -Ulcer Cleansing Rinsed/ Rinsed/ Rinsed/ Irrigated with Irrigated with Irrigated with Saline Saline Saline -Foul Odor after Cleansing No No No -Bioengineered Tissue No No No -Bleeding Controlled with Pressure,Silver Pressure Pressure Nitrate, SURGIFOAM -Offloading No No No -Treatment Response Procedure Procedure Procedure Tolerated Well Tolerated Well Tolerated Well -Debridement - Subq, 1st 20sq cm Yes Yes Yes Pain Scale: 0-10 Numeric Is Patient Pain Free? Yes Yes Yes - Nurse 3 - General Ulcer D/C NN Start: 05/26/20 13:46 Freq: Status: Active Protocol: Activity Type Activity Date Activity User E-Sign Co-Sign Detail Recorded Client Recorded Date Recorded By Document 05/26/20 14:18 MW [id number] 05/26/20 14:21 MW Document 06/02/20 14:23 MW [id number] 06/02/20 14:23 MW Document 06/09/20 13:49 DL [id number] 06/09/20 13:50 DL 05/26/20 06/02/20 06/09/20 14:18 14:23 13:49 Wound Care Nurse 3 #1- LEFT GROIN- POST OP -Ulcer Cleansing Not Cleansed Rinsed/ Rinsed/ Irrigated with Irrigated with Saline Saline -Foul Odor after Cleansing No No No -Negative Pressure Wound Therapy N/A N/A -Primary Dressing Applied Aquacel AG 4x4 -Other Dressing aquacel ag -Primary Dressing Covered/Secured with Dry Gauze, Dry Gauze, Dry Gauze, Secured with Secured with Secured with Tape Tape Tape -Aquacel AG 4x4 1 Treatment Response Procedure Procedure Procedure Tolerated Well Tolerated Well Tolerated Well Pain Scale: 0-10 Numeric Is Patient Pain Free? Yes Yes Teaching: Wound Center Dressing Your Wound -Person Taught Patient Patient -Teaching Method Discussion, Discussion Demonstration -Response to teaching Verbalize Verbalize understanding understanding WC - Visit Discharge Discharge Condition Stable Stable Stable Ambulatory Status Ambulatory Ambulatory Ambulatory Transportation Private Auto Private Auto Private Auto Accompanied by brother brother Medication Reconcilliation completed & No No provided to patient/care provider Clinical Summary of Care Provided Yes Yes Facility Type Home Health Orders Sent Yes Wound debrided: left groin ulcer Laterality: Left Type of Debridement: Excisional debridement Anesthesia Used: 5% Lidocaine Gel Depth: in the subcutaneous layer Percentage of wound debrided: 100 Instrument Used: 5mm curette Tissue Removed: slough and devitalized tissue Severity: Fat Layer Exposed Amount of bleeding with debridement: Mild Bleeding Controlled with: Pressure Patient tolerated procedure well Assessment/Plan Active Problems Intertrigo (Chronic) abdominal wall skin crease intertrigo Abdominal panniculus (Chronic) Ulcer of left groin with fat layer exposed (Chronic) x 2 History of necrotising fasciitis (Chronic) Lymphedema of both lower extremities (Acute) Type 2 diabetes mellitus (Chronic) Diabetic neuropathy (Chronic) Morbid obesity (Chronic) Non-healing surgical wound of left groin (Chronic) x 3 Assessment: Nonhealing postsurgical wound left groin status post surgical excision of necrotizing fasciitis. Morbid obesity. Type 2 diabetes mellitus Plan: Debridement done as documented above. Procedure was well-tolerated. Recent culture reviewed with patient and patient started on Clindagel topically and erythromycin orally which he is tolerating. Continue Aquacel silver daily to twice daily depending on drainage. Optimal diabetes control again discussed. Continue increased protein intake. His questions were answered and he was advised to call with any further questions or concerns. Follow-up in 1 week at wound healing center. Surgery still on hold. This note was generated with [employer] dictation software. It may contain incorrect words, spelling, and punctuation that were not noted in checking the note before signing. [id number]: [id number] Jessica subq tissue 20 sq cm/<
[2020-06-16 13:31] VITALS: BP 132/75; PULSE 84; RESP 18; TEMP 36.6
--- NOTE | 2020-06-16 14:15 | PN.PCM_ITS ---
(1) Non-healing surgical wound of left groin Status: Chronic Qualifiers: Code(s): T81.89XA - Other complications of procedures, not elsewhere classified, initial encounter Comment: x 3 (2) Lymphedema of both lower extremities Status: Acute Code(s): I89.0 - Lymphedema, not elsewhere classified (3) Abdominal panniculus Status: Chronic Code(s): E65 - Localized adiposity (4) Diabetic neuropathy Status: Chronic Code(s): E11.40 - Type 2 diabetes mellitus with diabetic neuropathy, unspecified (5) History of necrotising fasciitis Status: Chronic Code(s): Z87.39 - Personal history of other diseases of the musculoskeletal system and connective tissue (6) Intertrigo Status: Chronic Code(s): L30.4 - Erythema intertrigo Comment: abdominal wall skin crease intertrigo (7) Morbid obesity Status: Chronic Code(s): E66.01 - Morbid (severe) obesity due to excess calories (8) Type 2 diabetes mellitus Status: Chronic Qualifiers: Code(s): E11.9 - Type 2 diabetes mellitus without complications (9) Ulcer of left groin with fat layer exposed Status: Chronic Code(s): L98.492 - Non-pressure chronic ulcer of skin of other sites with fat layer exposed Comment: x 2 Type of Wound Date of Service: 06/16/20 Chief Complaint: Nonhealing wound status post surgical excision of necrotizing fasciitis left groin History of Wound: 46-year-old white male who presents to the wound healing center today with complaint of left groin ulceration status post surgical excision of necrotizing fasciitis. He is a past medical history which is significant for that of type 2 diabetes mellitus, gout, diabetic neuropathy, schizophrenia, bilateral lymphedema, and schizophrenia. The patient states that what initially started as a pimple in his left groin progressed to necrotizing fasciitis and he had to have this surgically debrided in April 2017. He was admitted to [facility] for 2 weeks and then [facility] for 6 weeks afterwards. He states that the groin ulcer which extends to his left lower abdomen has been slowly improving and he has been doing daily Aquacel AG dressings with an ABD for the drainage. He does state that he has had 3 wound vacs in the past which were unable to be utilized due to the location of his wound. He denies any foul-smelling discharge or systemic signs of infection at this time. The patient otherwise denies any fever, chills, nausea, vomiting, shortness of breath, chest pain or pressure, palpitations, orthopnea, syncope or presyncopal episodes. Progress of Wound: Left groin medial ulcer has healed, lateral ulcer stable, patient reports improved blood sugar readings, A1c was 5.8 which is drastically improved. No new concerns at this time. Most recent wound culture showed Corynebacterium and patient was started on clindamycin gel topically twice a day which he is utilizing. Sensitivity also returned and showed sensitive erythromycin which patient is completed. - Physical Exam Vital Signs Temp Pulse Resp BP 97.8 F 84 18 132/75 H 06/16/20 13:31 06/16/20 13:31 06/16/20 13:31 06/16/20 13:31 General: Alert, Oriented x3, Cooperative, No apparent distress HEENT: Atraumatic Oral: Moist Mucosa Lungs: Clear to auscultation, Normal air movement Cardiovascular: Regular rate, Regular Rhythm Abdomen: Soft, Non Tender Extremities: No clubbing, No cyanosis Skin: Ulcer/ Wound - Slough and devitalized tissue, no signs of obvious infection at this time, slight maceration around the periwound edges. Wound Measurements and Assessment WC - Nurse 1 - General Ulcer Measurement Start: 05/26/20 13:46 Freq: Status: Active Protocol: Activity Type Activity Date Activity User E-Sign Co-Sign Detail Recorded Client Recorded Date Recorded By Document 06/16/20 13:31 DL [id number] 06/16/20 13:38 DL 06/16/20 13:31 Wound Center Nurse 1 [Ulcer Assessment] #1- LEFT GROIN- POST OP -Current Size (cm) - Length 1 -Current Size (cm) - Width 6.4 -Current Size (cm) - Depth 0.5 -Total Square Cm 6.4 -Photo Taken No -Exudate Amt Medium -Exudate Type Serosanguineous -Wound Margin Thickened & Rolled Under -Granulation Amt Large (67-100%) -Granulation Quality Red -Necrosis Amt None Present (0 %) -Structure Exposed N/A -Texture (Inessa-wound Skin Appearance) Scarring -Moisture (Inessa-wound Skin Appearance Maceration ) -Color (Inessa-wound Skin Appearance) No Abnormality -Temperature (Inessa-wound Skin No Abnormality Appearance) (Pt Warm) -Tenderness on Palpation (Inessa-wound No Skin Appearance) -Ulcer Cleansing Rinsed/ Irrigated with Saline -Foul Odor after Cleansing No -Anesthetic Used 4% Lidocaine Solution RAMÓN - Nurse 2 - General Ulcer CM Notes Start: 05/26/20 13:46 Freq: Status: Active Protocol: Activity Type Activity Date Activity User E-Sign Co-Sign Detail Recorded Client Recorded Date Recorded By Document 06/16/20 13:50 MW [id number] 06/16/20 13:53 MW 06/16/20 13:50 Wound Center Nurse 2 [Procedure/Treatment] -Time 13:51 -Correct Patient Yes -Correct Side, Site, Position Yes -Correct Procedure Yes -Procedure Performed Yes -Type of Procedure Debridement -Clinical Debridement Subcutaneous -Tissue Removed Subcutaneous -Post Debridement (cm) - Length 1.3 -Post Debridement (cm) - Width 6.5 -Post Debridement (cm) - Depth 0.1 -Total Square (Post) (cm) 8.45 -Area of Debridement (cm) - Length 1.3 -Area of Debridement (cm) - Width 6.5 -Total Square (Area) (cm) 8.45 -Tunneling No -Undermining/Tunneling No -Circular Undermining No -Wound/Ulcer Outcome Not Healed -Ulcer Cleansing Rinsed/ Irrigated with Saline -Foul Odor after Cleansing No -Bioengineered Tissue No -Bleeding Controlled with Pressure, SURGIFOAM -Offloading No -Debridement - Subq, 1st 20sq cm Yes [See Physician Procedure note for Specifics] RAMÓN - Nurse 3 - General Ulcer D/C NN Start: 05/26/20 13:46 Freq: Status: Active Protocol: Activity Type Activity Date Activity User E-Sign Co-Sign Detail Recorded Client Recorded Date Recorded By Document 06/16/20 13:59 DL [id number] 06/16/20 13:59 DL 06/16/20 13:59 Wound Care Nurse 3 [Wound Dressing] #1- LEFT GROIN- POST OP -Ulcer Cleansing Rinsed/ Irrigated with Saline -Foul Odor after Cleansing No -Primary Dressing Applied Aquacel Extra -Primary Dressing Covered/Secured Dry Gauze, with Secured with Tape -Aquacel Extra 1 [Post Procedure Tolerated] -Treatment Response Procedure Tolerated Well Pain Scale: 0-10 Numeric [Pain] -Is Patient Pain Free? Yes WC - Visit Discharge [Visit Discharge Information] -Discharge Condition Stable -Ambulatory Status Ambulatory Neurological: Neuro grossly intact Psych/Mental Status: Normal Affect, Appropriate, Alert and oriented to time, place, person, mood and affect Debridement Note Post-Debridement Measurements/Treatment WC - Nurse 2 - General Ulcer CM Notes Start: 05/26/20 13:46 Freq: Status: Active Protocol: Activity Type Activity Date Activity User E-Sign Co-Sign Detail Recorded Client Recorded Date Recorded By Document 05/26/20 14:14 MW [id number] 05/26/20 14:17 MW Document 06/02/20 14:12 MW [id number] 06/02/20 14:15 MW Document 06/09/20 13:43 MW [id number] 06/09/20 13:45 MW Document 06/16/20 13:50 MW [id number] 06/16/20 13:53 MW 05/26/20 06/02/20 06/09/20 14:14 14:12 13:43 Wound Center Nurse 2 #1- LEFT GROIN- POST OP -Time 14:14 14:12 13:43 -Correct Patient Yes Yes Yes -Correct Side, Site, Position Yes Yes Yes -Correct Procedure Yes Yes Yes -Procedure Performed Yes Yes Yes -Type of Procedure Chemical Debridement Debridement Cauterization ( $) -Clinical Debridement Subcutaneous Subcutaneous Subcutaneous -Tissue Removed Subcutaneous Subcutaneous Subcutaneous -Post Debridement (cm) - Length 1.5 1.8 1.4 -Post Debridement (cm) - Width 7.0 6.9 7.2 -Post Debridement (cm) - Depth 0.1 6.9 0.1 -Total Square (Post) (cm) 10.50 12.42 10.08 -Area of Debridement (cm) - Length 1.5 1.8 1.4 -Area of Debridement (cm) - Width 7.0 6.9 7.2 -Total Square (Area) (cm) 10.50 12.42 10.08 -Tunneling No No No -Undermining/Tunneling No No No -Circular Undermining No No No -Wound/Ulcer Outcome Not Healed Not Healed Not Healed -Ulcer Cleansing Rinsed/ Rinsed/ Rinsed/ Irrigated with Irrigated with Irrigated with Saline Saline Saline -Foul Odor after Cleansing No No No -Bioengineered Tissue No No No -Bleeding Controlled with Pressure,Silver Pressure Pressure Nitrate, SURGIFOAM -Offloading No No No -Treatment Response Procedure Procedure Procedure Tolerated Well Tolerated Well Tolerated Well -Debridement - Subq, 1st 20sq cm Yes Yes Yes Pain Scale: 0-10 Numeric Is Patient Pain Free? Yes Yes Yes 06/16/20 13:50 Wound Center Nurse 2 #1- LEFT GROIN- POST OP -Time 13:51 -Correct Patient Yes -Correct Side, Site, Position Yes -Correct Procedure Yes -Procedure Performed Yes -Type of Procedure Debridement -Clinical Debridement Subcutaneous -Tissue Removed Subcutaneous -Post Debridement (cm) - Length 1.3 -Post Debridement (cm) - Width 6.5 -Post Debridement (cm) - Depth 0.1 -Total Square (Post) (cm) 8.45 -Area of Debridement (cm) - Length 1.3 -Area of Debridement (cm) - Width 6.5 -Total Square (Area) (cm) 8.45 -Tunneling No -Undermining/Tunneling No -Circular Undermining No -Wound/Ulcer Outcome Not Healed -Ulcer Cleansing Rinsed/ Irrigated with Saline -Foul Odor after Cleansing No -Bioengineered Tissue No -Bleeding Controlled with Pressure, SURGIFOAM -Offloading No -Treatment Response -Debridement - Subq, 1st 20sq cm Yes Pain Scale: 0-10 Numeric Is Patient Pain Free? WC - Nurse 3 - General Ulcer D/C NN Start: 05/26/20 13:46 Freq: Status: Active Protocol: Activity Type Activity Date Activity User E-Sign Co-Sign Detail Recorded Client Recorded Date Recorded By Document 05/26/20 14:18 MW [id number] 05/26/20 14:21 MW Document 06/02/20 14:23 MW [id number] 06/02/20 14:23 MW Document 06/09/20 13:49 DL [id number] 06/09/20 13:50 DL Document 06/16/20 13:59 DL [id number] 06/16/20 13:59 DL 05/26/20 06/02/20 06/09/20 14:18 14:23 13:49 Wound Care Nurse 3 #1- LEFT GROIN- POST OP -Ulcer Cleansing Not Cleansed Rinsed/ Rinsed/ Irrigated with Irrigated with Saline Saline -Foul Odor after Cleansing No No No -Negative Pressure Wound Therapy N/A N/A -Primary Dressing Applied Aquacel AG 4x4 -Other Dressing aquacel ag -Primary Dressing Covered/Secured with Dry Gauze, Dry Gauze, Dry Gauze, Secured with Secured with Secured with Tape Tape Tape -Aquacel Extra -Aquacel AG 4x4 1 Treatment Response Procedure Procedure Procedure Tolerated Well Tolerated Well Tolerated Well Pain Scale: 0-10 Numeric Is Patient Pain Free? Yes Yes Teaching: Wound Center Dressing Your Wound -Person Taught Patient Patient -Teaching Method Discussion, Discussion Demonstration -Response to teaching Verbalize Verbalize understanding understanding WC - Visit Discharge Discharge Condition Stable Stable Stable Ambulatory Status Ambulatory Ambulatory Ambulatory Transportation Private Auto Private Auto Private Auto Accompanied by brother brother Medication Reconcilliation completed & No No provided to patient/care provider Clinical Summary of Care Provided Yes Yes Facility Type Home Health Orders Sent Yes 06/16/20 13:59 Wound Care Nurse 3 #1- LEFT GROIN- POST OP -Ulcer Cleansing Rinsed/ Irrigated with Saline -Foul Odor after Cleansing No -Negative Pressure Wound Therapy -Primary Dressing Applied Aquacel Extra -Other Dressing -Primary Dressing Covered/Secured with Dry Gauze, Secured with Tape -Aquacel Extra 1 -Aquacel AG 4x4 Treatment Response Procedure Tolerated Well Pain Scale: 0-10 Numeric Is Patient Pain Free? Yes Teaching: Wound Center Dressing Your Wound -Person Taught -Teaching Method -Response to teaching WC - Visit Discharge Discharge Condition Stable Ambulatory Status Ambulatory Transportation Accompanied by Medication Reconcilliation completed & provided to patient/care provider Clinical Summary of Care Provided Facility Type Orders Sent Wound debrided: Left groin ulcer Laterality: Left Type of Debridement: Excisional debridement Anesthesia Used: 5% Lidocaine Gel Depth: in the subcutaneous layer Percentage of wound debrided: 100 Instrument Used: 5mm curette Tissue Removed: Slough and devitalized tissue Severity: Fat Layer Exposed Amount of bleeding with debridement: Mild Bleeding Controlled with: Pressure Patient tolerated procedure well Assessment/Plan Active Problems Intertrigo (Chronic) abdominal wall skin crease intertrigo Abdominal panniculus (Chronic) Ulcer of left groin with fat layer exposed (Chronic) x 2 History of necrotising fasciitis (Chronic) Lymphedema of both lower extremities (Acute) Type 2 diabetes mellitus (Chronic) Diabetic neuropathy (Chronic) Morbid obesity (Chronic) Non-healing surgical wound of left groin (Chronic) x 3 Assessment: Nonhealing postsurgical wound left groin status post surgical excision of necrotizing fasciitis. Morbid obesity. Type 2 diabetes mellitus Plan: Debridement done as documented above. Procedure was well-tolerated. Recent culture reviewed with patient and patient started on Clindagel topically and erythromycin orally which he is completed. Continue Aquacel extra daily to twice daily depending on drainage. Optimal diabetes control again discussed. Continue increased protein intake. His questions were answered and he was advised to call with any further questions or concerns. Follow-up in 1 week at wound healing center. Surgery still on hold, will have reevaluation in 3 weeks.. This note was generated with [employer] dictation software. It may contain incorrect words, spelling, and punctuation that were not noted in checking the note before signing. [id number]: [id number] Jessica subq tissue 20 sq cm/<
== END 2020-06-19 23:59 ==
LOC: WC 13:30
PROVIDERS: Family Provider Family Medicine; PCP Family Medicine; Referring Provider Nurse Practitioner Family; Visit Provider Nurse Practitioner Family
DX: T81.89XA Other complications of procedures, not elsewhere classified, initial encounter (principal); L98.492 Non-pressure chronic ulcer of skin of other sites with fat layer exposed; E11.40 Type 2 diabetes mellitus with diabetic neuropathy, unspecified; I89.0 Lymphedema, not elsewhere classified; E65 Localized adiposity; L30.4 Erythema intertrigo; M10.9 Gout, unspecified; F20.9 Schizophrenia, unspecified; E66.01 Morbid (severe) obesity due to excess calories; Z79.4 Long term (current) use of insulin; Z79.899 Other long term (current) drug therapy; Z87.39 Personal history of other diseases of the musculoskeletal system and connective tissue
CPT/HCPCS: 11042; 17250

== ENCOUNTER 2020-07-07 14:00 | Outpatient (RCR) | payer MEDICARE, MEDICAID, SELFPAY ==
[2020-06-20 00:17] VITALS: BP 132/75; PULSE 84; RESP 18; TEMP 36.6
[2020-06-23 13:30] VITALS: BP 125/71; PULSE 71; RESP 17; TEMP 35.8
--- NOTE | 2020-06-24 11:37 | PN.PCM_ITS ---
(1) Non-healing surgical wound of left groin Status: Chronic Qualifiers: Code(s): T81.89XA - Other complications of procedures, not elsewhere classified, initial encounter Comment: x 3 (2) Intertrigo Status: Chronic Code(s): L30.4 - Erythema intertrigo Comment: abdominal wall skin crease intertrigo (3) Morbid obesity Status: Chronic Code(s): E66.01 - Morbid (severe) obesity due to excess calories (4) Type 2 diabetes mellitus Status: Chronic Qualifiers: Code(s): E11.9 - Type 2 diabetes mellitus without complications (5) Ulcer of left groin with fat layer exposed Status: Chronic Code(s): L98.492 - Non-pressure chronic ulcer of skin of other sites with fat layer exposed Comment: x 2 Type of Wound Date of Service: 06/23/20 Chief Complaint: Nonhealing wound status post surgical excision of necrotizing fasciitis left groin History of Wound: 46-year-old white male who presents to the wound healing center today with complaint of left groin ulceration status post surgical excision of necrotizing fasciitis. He is a past medical history which is significant for that of type 2 diabetes mellitus, gout, diabetic neuropathy, schizophrenia, bilateral lymphedema, and schizophrenia. The patient states that what initially started as a pimple in his left groin progressed to necrotizing fasciitis and he had to have this surgically debrided in April 2017. He was admitted to [facility] for 2 weeks and then [facility] for 6 weeks afterwards. He states that the groin ulcer which extends to his left lower abdomen has been slowly improving and he has been doing daily Aquacel AG dressings with an ABD for the drainage. He does state that he has had 3 wound vacs in the past which were unable to be utilized due to the location of his wound. He denies any foul-smelling discharge or systemic signs of infection at this time. The patient otherwise denies any fever, chills, nausea, vomiting, shortness of breath, chest pain or pressure, palpitations, orthopnea, syncope or presyncopal episodes. Progress of Wound: Left groin ulcer stable, patient reports improved blood sugar readings, A1c was recently 5.8 which is drastically improved. No new concerns at this time. - Physical Exam Vital Signs Temp Pulse Resp BP 96.5 F L 71 17 125/71 H 06/23/20 13:30 06/23/20 13:30 06/23/20 13:30 06/23/20 13:30 General: Alert, Oriented x3, Cooperative, No apparent distress HEENT: Atraumatic Oral: Moist Mucosa Lungs: Clear to auscultation, Normal air movement Cardiovascular: Regular rate Abdomen: Soft, Non Tender Extremities: No clubbing, No cyanosis, No edema Skin: Ulcer/ Wound - See nursing documentation, slough and devitalized tissue present, no signs of obvious infection at this time. Wound Measurements and Assessment WC - Nurse 1 - General Ulcer Measurement Start: 06/23/20 13:30 Freq: Status: Active Protocol: Activity Type Activity Date Activity User E-Sign Co-Sign Detail Recorded Client Recorded Date Recorded By Document 06/23/20 13:30 MS [id number] 06/23/20 13:41 MS 06/23/20 13:30 Wound Center Nurse 1 [Ulcer Assessment] #1- LEFT GROIN- POST OP -Current Size (cm) - Length 1 -Current Size (cm) - Width 7 -Current Size (cm) - Depth 0.1 -Total Square Cm 7 -Exudate Amt Small -Exudate Type Serosanguineous -Wound Margin Distinct, Outline Attached -Granulation Amt Medium (34-66%) -Granulation Quality Pablo -Slough/Fibrin Yes -Necrosis Amt Small (1-33%) -Texture (Inessa-wound Skin Appearance) No Abnormality -Moisture (Inessa-wound Skin Appearance Maceration ) -Color (Inessa-wound Skin Appearance) No Abnormality -Temperature (Inessa-wound Skin No Abnormality Appearance) (Pt Warm) -Tenderness on Palpation (Inessa-wound No Skin Appearance) -Ulcer Cleansing soap and water -Foul Odor after Cleansing No -Anesthetic Used 4% Lidocaine Solution WC - Nurse 2 - General Ulcer CM Notes Start: 06/23/20 13:30 Freq: Status: Active Protocol: Activity Type Activity Date Activity User E-Sign Co-Sign Detail Recorded Client Recorded Date Recorded By Document 06/23/20 14:20 MW [id number] 06/23/20 14:23 MW 06/23/20 14:20 Wound Center Nurse 2 [Procedure/Treatment] -Time 14:22 -Correct Patient Yes -Correct Side, Site, Position Yes -Correct Procedure Yes -Procedure Performed Yes -Type of Procedure Debridement -Clinical Debridement Subcutaneous -Tissue Removed Subcutaneous -Post Debridement (cm) - Length 1.5 -Post Debridement (cm) - Width 6.8 -Post Debridement (cm) - Depth 0.1 -Total Square (Post) (cm) 10.20 -Area of Debridement (cm) - Length 1.5 -Area of Debridement (cm) - Width 6.8 -Total Square (Area) (cm) 10.20 -Tunneling No -Undermining/Tunneling No -Circular Undermining No -Wound/Ulcer Outcome Not Healed -Ulcer Cleansing Rinsed/ Irrigated with Saline -Foul Odor after Cleansing No -Bioengineered Tissue No -Bleeding Controlled with Pressure, SURGIFOAM -Offloading No -Treatment Response Procedure Tolerated Well -Debridement - Subq, 1st 20sq cm Yes [See Physician Procedure note for Specifics] Pain Scale: 0-10 Numeric [Pain] -Is Patient Pain Free? Yes RAMÓN - Nurse 3 - General Ulcer D/C NN Start: 06/23/20 13:30 Freq: Status: Active Protocol: Activity Type Activity Date Activity User E-Sign Co-Sign Detail Recorded Client Recorded Date Recorded By Document 06/23/20 14:25 MW [id number] 06/23/20 14:27 MW 06/23/20 14:25 Wound Care Nurse 3 [Wound Dressing] #1- LEFT GROIN- POST OP -Ulcer Cleansing Rinsed/ Irrigated with Saline -Foul Odor after Cleansing No -Negative Pressure Wound Therapy N/A -Primary Dressing Applied Aquacel Extra -Primary Dressing Covered/Secured Dry Gauze, with Secured with Tape -Aquacel Extra 1 [Post Procedure Tolerated] -Treatment Response Procedure Tolerated Well Pain Scale: 0-10 Numeric [Pain] -Is Patient Pain Free? Yes Teaching: Wound Center [Wound Center Education] (Items with an * have Printed Materials Available- Please identify what is given to patient under the Teaching materials given to patient and caregiver Section. Dressing Your Wound -Person Taught Patient -Teaching Method Discussion -Response to teaching Verbalize understanding WC - Visit Discharge [Visit Discharge Information] -Discharge Condition Stable -Ambulatory Status Ambulatory -Transportation Private Auto -Accompanied by self -Medication Reconcilliation completed No & provided to patient/care provider -Clinical Summary of Care Provided Yes Neurological: Neuro grossly intact Psych/Mental Status: Normal Affect, Appropriate Debridement Note Post-Debridement Measurements/Treatment - Nurse 2 - General Ulcer CM Notes Start: 06/23/20 13:30 Freq: Status: Active Protocol: Activity Type Activity Date Activity User E-Sign Co-Sign Detail Recorded Client Recorded Date Recorded By Document 06/23/20 14:20 MW [id number] 06/23/20 14:23 MW 06/23/20 14:20 Wound Center Nurse 2 #1- LEFT GROIN- POST OP -Time 14:22 -Correct Patient Yes -Correct Side, Site, Position Yes -Correct Procedure Yes -Procedure Performed Yes -Type of Procedure Debridement -Clinical Debridement Subcutaneous -Tissue Removed Subcutaneous -Post Debridement (cm) - Length 1.5 -Post Debridement (cm) - Width 6.8 -Post Debridement (cm) - Depth 0.1 -Total Square (Post) (cm) 10.20 -Area of Debridement (cm) - Length 1.5 -Area of Debridement (cm) - Width 6.8 -Total Square (Area) (cm) 10.20 -Tunneling No -Undermining/Tunneling No -Circular Undermining No -Wound/Ulcer Outcome Not Healed -Ulcer Cleansing Rinsed/ Irrigated with Saline -Foul Odor after Cleansing No -Bioengineered Tissue No -Bleeding Controlled with Pressure, SURGIFOAM -Offloading No -Treatment Response Procedure Tolerated Well -Debridement - Subq, 1st 20sq cm Yes Pain Scale: 0-10 Numeric Is Patient Pain Free? Yes - Nurse 3 - General Ulcer D/C NN Start: 06/23/20 13:30 Freq: Status: Active Protocol: Activity Type Activity Date Activity User E-Sign Co-Sign Detail Recorded Client Recorded Date Recorded By Document 06/23/20 14:25 MW [id number] 06/23/20 14:27 MW 06/23/20 14:25 Wound Care Nurse 3 #1- LEFT GROIN- POST OP -Ulcer Cleansing Rinsed/ Irrigated with Saline -Foul Odor after Cleansing No -Negative Pressure Wound Therapy N/A -Primary Dressing Applied Aquacel Extra -Primary Dressing Covered/Secured with Dry Gauze, Secured with Tape -Aquacel Extra 1 Treatment Response Procedure Tolerated Well Pain Scale: 0-10 Numeric Is Patient Pain Free? Yes Teaching: Wound Center Dressing Your Wound -Person Taught Patient -Teaching Method Discussion -Response to teaching Verbalize understanding WC - Visit Discharge Discharge Condition Stable Ambulatory Status Ambulatory Transportation Private Auto Accompanied by self Medication Reconcilliation completed & No provided to patient/care provider Clinical Summary of Care Provided Yes Wound debrided: Nonhealing postsurgical wound left groin Laterality: Left Type of Debridement: Excisional debridement Anesthesia Used: 5% Lidocaine Gel Depth: in the subcutaneous layer Percentage of wound debrided: 100 Instrument Used: 5mm curette Tissue Removed: Slough and devitalized tissue Severity: Fat Layer Exposed Amount of bleeding with debridement: Mild Bleeding Controlled with: Pressure Patient tolerated procedure well Assessment/Plan Assessment: Nonhealing postsurgical wound left groin status post surgical excision of necrotizing fasciitis. Morbid obesity. Type 2 diabetes mellitus Plan: Debridement done as documented above. Procedure was well-tolerated. Recent culture reviewed with patient and patient started on Clindagel topically and erythromycin orally which he completed. Continue Aquacel extra daily to twice daily depending on drainage. Optimal diabetes control again discussed. Continue increased protein intake. His questions were answered and he was advised to call with any further questions or concerns. Follow-up in 1 week at wound healing center. Surgery still on hold, will have reevaluation in 3 weeks.. This note was generated with [employer] dictation software. It may contain incorrect words, spelling, and punctuation that were not noted in checking the note before signing. [id number]: [id number] Jessica subq tissue 20 sq cm/<
[2020-06-30 15:11] VITALS: BP 126/58; PULSE 77; TEMP 35.8
--- NOTE | 2020-06-30 17:22 | PCM.WC.PN ---
(1) Non-healing surgical wound of left groin Status: Chronic Qualifiers: Code(s): T81.89XA - Other complications of procedures, not elsewhere classified, initial encounter Comment: x 3 (2) Intertrigo Status: Chronic Code(s): L30.4 - Erythema intertrigo Comment: abdominal wall skin crease intertrigo (3) Morbid obesity Status: Chronic Code(s): E66.01 - Morbid (severe) obesity due to excess calories (4) Type 2 diabetes mellitus Status: Chronic Qualifiers: Code(s): E11.9 - Type 2 diabetes mellitus without complications (5) Ulcer of left groin with fat layer exposed Status: Chronic Code(s): L98.492 - Non-pressure chronic ulcer of skin of other sites with fat layer exposed Comment: x 2 Type of Wound Date of Service: 06/30/20 Chief Complaint: Nonhealing wound status post surgical excision of necrotizing fasciitis left groin History of Wound: 46-year-old white male who presents to the wound healing center today with complaint of left groin ulceration status post surgical excision of necrotizing fasciitis. He is a past medical history which is significant for that of type 2 diabetes mellitus, gout, diabetic neuropathy, schizophrenia, bilateral lymphedema, and schizophrenia. The patient states that what initially started as a pimple in his left groin progressed to necrotizing fasciitis and he had to have this surgically debrided in April 2017. He was admitted to [facility] for 2 weeks and then [facility] for 6 weeks afterwards. He states that the groin ulcer which extends to his left lower abdomen has been slowly improving and he has been doing daily Aquacel AG dressings with an ABD for the drainage. He does state that he has had 3 wound vacs in the past which were unable to be utilized due to the location of his wound. He denies any foul-smelling discharge or systemic signs of infection at this time. The patient otherwise denies any fever, chills, nausea, vomiting, shortness of breath, chest pain or pressure, palpitations, orthopnea, syncope or presyncopal episodes. Progress of Wound: Left groin ulcer stable, patient reports improved blood sugar readings, A1c was recently 5.8 which is drastically improved. No new concerns at this time. - Physical Exam Vital Signs Temp Pulse Resp BP 96.5 F L 77 17 126/58 H 06/30/20 15:11 06/30/20 15:11 06/23/20 13:30 06/30/20 15:11 General: Alert, Oriented x3, Cooperative, No apparent distress HEENT: Atraumatic Oral: Moist Mucosa Lungs: Clear to auscultation Cardiovascular: Regular rate Abdomen: Soft, Obese Extremities: No clubbing, No cyanosis, Edema Skin: Ulcer/ Wound - Slough and devitalized tissue present left groin ulcer, no signs of infection at this time Wound Measurements and Assessment WC - Nurse 1 - General Ulcer Measurement Start: 06/23/20 13:30 Freq: Status: Active Protocol: Activity Type Activity Date Activity User E-Sign Co-Sign Detail Recorded Client Recorded Date Recorded By Document 06/30/20 15:11 KR [id number] 06/30/20 15:14 KR 06/30/20 15:11 Wound Center Nurse 1 [Ulcer Assessment] #1- LEFT GROIN- POST OP -Current Size (cm) - Length 1.5 -Current Size (cm) - Width 6.9 -Current Size (cm) - Depth 0.1 -Total Square Cm 10.35 -Exudate Amt Medium -Exudate Type Serosanguineous -Wound Margin Distinct, Outline Attached -Granulation Amt Large (67-100%) -Granulation Quality Red -Necrosis Amt Small (1-33%) -Necrotic Tissue Type Adherent Slough -Texture (Inessa-wound Skin Appearance) Assessed, Scarring -Moisture (Inessa-wound Skin Appearance No Abnormality, ) Assessed -Color (Inessa-wound Skin Appearance) No Abnormality, Assessed -Temperature (Inessa-wound Skin No Abnormality Appearance) (Pt Warm) -Tenderness on Palpation (Inessa-wound No Skin Appearance) -Ulcer Cleansing Rinsed/ Irrigated with Saline -Foul Odor after Cleansing No -Anesthetic Used 4% Lidocaine Solution WC - Nurse 2 - General Ulcer CM Notes Start: 06/23/20 13:30 Freq: Status: Active Protocol: Activity Type Activity Date Activity User E-Sign Co-Sign Detail Recorded Client Recorded Date Recorded By Document 06/30/20 15:33 MW [id number] 06/30/20 15:35 MW 06/30/20 15:33 Wound Center Nurse 2 [Procedure/Treatment] -Time 15:34 -Correct Patient Yes -Correct Side, Site, Position Yes -Correct Procedure Yes -Procedure Performed Yes -Type of Procedure Debridement -Clinical Debridement Subcutaneous -Tissue Removed Subcutaneous -Post Debridement (cm) - Length 1.3 -Post Debridement (cm) - Width 5.8 -Post Debridement (cm) - Depth 0.1 -Total Square (Post) (cm) 7.54 -Area of Debridement (cm) - Length 1.3 -Area of Debridement (cm) - Width 5.8 -Total Square (Area) (cm) 7.54 -Tunneling No -Undermining/Tunneling No -Circular Undermining No -Wound/Ulcer Outcome Not Healed -Ulcer Cleansing Rinsed/ Irrigated with Saline -Foul Odor after Cleansing No -Bioengineered Tissue No -Bleeding Controlled with Pressure -Offloading No -Treatment Response Procedure Tolerated Well -Debridement - Subq, 1st 20sq cm Yes [See Physician Procedure note for Specifics] Pain Scale: 0-10 Numeric [Pain] -Is Patient Pain Free? Yes - Nurse 3 - General Ulcer D/C NN Start: 06/23/20 13:30 Freq: Status: Active Protocol: Activity Type Activity Date Activity User E-Sign Co-Sign Detail Recorded Client Recorded Date Recorded By Document 06/30/20 15:43 KR [id number] 06/30/20 15:44 KR 06/30/20 15:43 Wound Care Nurse 3 [Wound Dressing] #1- LEFT GROIN- POST OP -Ulcer Cleansing Rinsed/ Irrigated with Saline -Foul Odor after Cleansing No -Primary Dressing Applied Aquacel Extra -Primary Dressing Covered/Secured Dry Gauze, with Secured with Tape -Aquacel Extra 1 Pain Scale: 0-10 Numeric [Pain] -Is Patient Pain Free? Yes - Visit Discharge [Visit Discharge Information] -Discharge Condition Stable -Ambulatory Status Ambulatory -Transportation Private Auto Neurological: Neuro grossly intact Psych/Mental Status: Normal Affect, Appropriate, Alert and oriented to time, place, person, mood and affect Debridement Note Post-Debridement Measurements/Treatment - Nurse 2 - General Ulcer CM Notes Start: 06/23/20 13:30 Freq: Status: Active Protocol: Activity Type Activity Date Activity User E-Sign Co-Sign Detail Recorded Client Recorded Date Recorded By Document 06/23/20 14:20 MW [id number] 06/23/20 14:23 MW Document 06/30/20 15:33 MW [id number] 06/30/20 15:35 MW 06/23/20 06/30/20 14:20 15:33 Wound Center Nurse 2 #1- LEFT GROIN- POST OP -Time 14:22 15:34 -Correct Patient Yes Yes -Correct Side, Site, Position Yes Yes -Correct Procedure Yes Yes -Procedure Performed Yes Yes -Type of Procedure Debridement Debridement -Clinical Debridement Subcutaneous Subcutaneous -Tissue Removed Subcutaneous Subcutaneous -Post Debridement (cm) - Length 1.5 1.3 -Post Debridement (cm) - Width 6.8 5.8 -Post Debridement (cm) - Depth 0.1 0.1 -Total Square (Post) (cm) 10.20 7.54 -Area of Debridement (cm) - Length 1.5 1.3 -Area of Debridement (cm) - Width 6.8 5.8 -Total Square (Area) (cm) 10.20 7.54 -Tunneling No No -Undermining/Tunneling No No -Circular Undermining No No -Wound/Ulcer Outcome Not Healed Not Healed -Ulcer Cleansing Rinsed/ Rinsed/ Irrigated with Irrigated with Saline Saline -Foul Odor after Cleansing No No -Bioengineered Tissue No No -Bleeding Controlled with Pressure, Pressure SURGIFOAM -Offloading No No -Treatment Response Procedure Procedure Tolerated Well Tolerated Well -Debridement - Subq, 1st 20sq cm Yes Yes Pain Scale: 0-10 Numeric Is Patient Pain Free? Yes Yes WC - Nurse 3 - General Ulcer D/C NN Start: 06/23/20 13:30 Freq: Status: Active Protocol: Activity Type Activity Date Activity User E-Sign Co-Sign Detail Recorded Client Recorded Date Recorded By Document 06/23/20 14:25 MW [id number] 06/23/20 14:27 MW Document 06/30/20 15:43 KR [id number] 06/30/20 15:44 KR 06/23/20 06/30/20 14:25 15:43 Wound Care Nurse 3 #1- LEFT GROIN- POST OP -Ulcer Cleansing Rinsed/ Rinsed/ Irrigated with Irrigated with Saline Saline -Foul Odor after Cleansing No No -Negative Pressure Wound Therapy N/A -Primary Dressing Applied Aquacel Extra Aquacel Extra -Primary Dressing Covered/Secured with Dry Gauze, Dry Gauze, Secured with Secured with Tape Tape -Aquacel Extra 1 1 Treatment Response Procedure Tolerated Well Pain Scale: 0-10 Numeric Is Patient Pain Free? Yes Yes Teaching: Wound Center Dressing Your Wound -Person Taught Patient -Teaching Method Discussion -Response to teaching Verbalize understanding WC - Visit Discharge Discharge Condition Stable Stable Ambulatory Status Ambulatory Ambulatory Transportation Private Auto Private Auto Accompanied by self Medication Reconcilliation completed & No provided to patient/care provider Clinical Summary of Care Provided Yes Wound debrided: Left groin nonhealing ulcer Laterality: Left Type of Debridement: Excisional debridement Anesthesia Used: 5% Lidocaine Gel Depth: in the subcutaneous layer Percentage of wound debrided: 100 Instrument Used: 5mm curette Tissue Removed: Slough and devitalized tissue Severity: Fat Layer Exposed Amount of bleeding with debridement: Mild Bleeding Controlled with: Pressure Patient tolerated procedure well Assessment/Plan Active Problems Intertrigo (Chronic) abdominal wall skin crease intertrigo Ulcer of left groin with fat layer exposed (Chronic) x 2 Type 2 diabetes mellitus (Chronic) Morbid obesity (Chronic) Non-healing surgical wound of left groin (Chronic) x 3 Assessment: Nonhealing postsurgical wound left groin status post surgical excision of necrotizing fasciitis. Morbid obesity. Type 2 diabetes mellitus Plan: Debridement done as documented above. Procedure was well-tolerated. Recent culture reviewed with patient and patient started on Clindagel topically and erythromycin orally which he completed. Continue Aquacel extra daily to twice daily depending on drainage. Optimal diabetes control again discussed. Continue increased protein intake. His questions were answered and he was advised to call with any further questions or concerns. Follow-up in 1 week at wound healing center. Surgery still on hold, will have reevaluation in 3 weeks.. This note was generated with [employer] dictation software. It may contain incorrect words, spelling, and punctuation that were not noted in checking the note before signing. [id number]: [id number] Jessica subq tissue 20 sq cm/<
[2020-07-07 14:05] VITALS: BP 138/64; PULSE 74; RESP 18; TEMP 36.2
--- NOTE | 2020-07-07 16:00 | PN.PCM_ITS ---
(1) Non-healing surgical wound of left groin Status: Chronic Qualifiers: Code(s): T81.89XA - Other complications of procedures, not elsewhere classified, initial encounter Comment: x 3 (2) Intertrigo Status: Chronic Code(s): L30.4 - Erythema intertrigo Comment: abdominal wall skin crease intertrigo (3) Morbid obesity Status: Chronic Code(s): E66.01 - Morbid (severe) obesity due to excess calories (4) Type 2 diabetes mellitus Status: Chronic Qualifiers: Code(s): E11.9 - Type 2 diabetes mellitus without complications (5) Ulcer of left groin with fat layer exposed Status: Chronic Code(s): L98.492 - Non-pressure chronic ulcer of skin of other sites with fat layer exposed Comment: x 2 Type of Wound Date of Service: 07/07/20 Chief Complaint: Nonhealing wound status post surgical excision of necrotizing fasciitis left groin History of Wound: 46-year-old white male who presents to the wound healing center today with complaint of left groin ulceration status post surgical excision of necrotizing fasciitis. He is a past medical history which is significant for that of type 2 diabetes mellitus, gout, diabetic neuropathy, schizophrenia, bilateral lymphedema, and schizophrenia. The patient states that what initially started as a pimple in his left groin progressed to necrotizing fasciitis and he had to have this surgically debrided in April 2017. He was admitted to [facility] for 2 weeks and then [facility] for 6 weeks afterwards. He states that the groin ulcer which extends to his left lower abdomen has been slowly improving and he has been doing daily Aquacel AG dressings with an ABD for the drainage. He does state that he has had 3 wound vacs in the past which were unable to be utilized due to the location of his wound. He denies any foul-smelling discharge or systemic signs of infection at this time. The patient otherwise denies any fever, chills, nausea, vomiting, shortness of breath, chest pain or pressure, palpitations, orthopnea, syncope or presyncopal episodes. Progress of Wound: Left groin ulcer stable, patient reports improved blood sugar readings, A1c was recently 5.8 which is drastically improved. SNAP vac applied today. No new concerns at this time. - Physical Exam Vital Signs Temp Pulse Resp BP 97.1 F L 74 18 138/64 H 07/07/20 14:05 07/07/20 14:05 07/07/20 14:05 07/07/20 14:05 General: Alert, Oriented x3, Cooperative, No apparent distress HEENT: Atraumatic Oral: Moist Mucosa Lungs: Clear to auscultation Cardiovascular: Regular rate Abdomen: Soft Extremities: No clubbing, No cyanosis, Edema - Bilateral lower extremity edema Skin: Ulcer/ Wound - Slough and devitalized tissue, no signs of infection at this time Wound Measurements and Assessment WC - Nurse 1 - General Ulcer Measurement Start: 06/23/20 13:30 Freq: Status: Active Protocol: Activity Type Activity Date Activity User E-Sign Co-Sign Detail Recorded Client Recorded Date Recorded By Document 07/07/20 14:05 MS [id number] 07/07/20 14:08 MS 07/07/20 14:05 Wound Center Nurse 1 [Ulcer Assessment] #1- LEFT GROIN- POST OP -Current Size (cm) - Length 6 -Current Size (cm) - Width 1 -Current Size (cm) - Depth 0.1 -Total Square Cm 6 -Epithelialization Medium 34-66% -Exudate Amt Medium -Exudate Type Serosanguineous -Wound Margin Distinct, Outline Attached -Granulation Amt Medium (34-66%) -Slough/Fibrin Yes -Necrosis Amt Medium (34-66%) -Texture (Inessa-wound Skin Appearance) No Abnormality -Moisture (Inessa-wound Skin Appearance Maceration ) -Color (Inessa-wound Skin Appearance) No Abnormality -Temperature (Inessa-wound Skin No Abnormality Appearance) (Pt Warm) -Tenderness on Palpation (Inessa-wound No Skin Appearance) -Ulcer Cleansing Rinsed/ Irrigated with Saline -Foul Odor after Cleansing No -Anesthetic Used 4% Lidocaine Solution WC - Nurse 2 - General Ulcer CM Notes Start: 06/23/20 13:30 Freq: Status: Active Protocol: Activity Type Activity Date Activity User E-Sign Co-Sign Detail Recorded Client Recorded Date Recorded By Document 07/07/20 14:51 MW [id number] 07/07/20 14:53 MW 07/07/20 14:51 Wound Center Nurse 2 [Procedure/Treatment] -Time 14:52 -Correct Patient Yes -Correct Side, Site, Position Yes -Correct Procedure Yes -Procedure Performed Yes -Type of Procedure Debridement -Clinical Debridement Subcutaneous -Tissue Removed Subcutaneous -Post Debridement (cm) - Length 1.5 -Post Debridement (cm) - Width 5.5 -Post Debridement (cm) - Depth 0.1 -Total Square (Post) (cm) 8.25 -Area of Debridement (cm) - Length 1.5 -Area of Debridement (cm) - Width 5.5 -Total Square (Area) (cm) 8.25 -Tunneling No -Undermining/Tunneling No -Circular Undermining No -Wound/Ulcer Outcome Not Healed -Ulcer Cleansing Rinsed/ Irrigated with Saline -Foul Odor after Cleansing No -Bioengineered Tissue No -Bleeding Controlled with Pressure -Offloading No -Treatment Response Procedure Tolerated Well -Debridement - Subq, 1st 20sq cm Yes [See Physician Procedure note for Specifics] Pain Scale: 0-10 Numeric [Pain] -Is Patient Pain Free? Yes - Nurse 3 - General Ulcer D/C NN Start: 06/23/20 13:30 Freq: Status: Active Protocol: Activity Type Activity Date Activity User E-Sign Co-Sign Detail Recorded Client Recorded Date Recorded By Document 07/07/20 15:07 MS [id number] 07/07/20 15:08 MS 07/07/20 15:07 Wound Care Nurse 3 [Wound Dressing] #1- LEFT GROIN- POST OP -Ulcer Cleansing Rinsed/ Irrigated with Saline -Foul Odor after Cleansing No -Negative Pressure Wound Therapy Start -Setting (mmHg) 125 -Negative Pressure is Continuous -NPWT Application Charge ($) NPWT </= 50 sq cm Pain Scale: 0-10 Numeric [Pain] -Is Patient Pain Free? Yes - Visit Discharge [Visit Discharge Information] -Discharge Condition Stable -Ambulatory Status Ambulatory -Medication Reconcilliation completed No & provided to patient/care provider -Clinical Summary of Care Provided Yes Neurological: Neuro grossly intact Psych/Mental Status: Normal Affect, Appropriate, Alert and oriented to time, place, person, mood and affect Debridement Note Post-Debridement Measurements/Treatment - Nurse 2 - General Ulcer CM Notes Start: 06/23/20 13:30 Freq: Status: Active Protocol: Activity Type Activity Date Activity User E-Sign Co-Sign Detail Recorded Client Recorded Date Recorded By Document 06/23/20 14:20 MW [id number] 06/23/20 14:23 MW Document 06/30/20 15:33 MW [id number] 06/30/20 15:35 MW Document 07/07/20 14:51 MW [id number] 07/07/20 14:53 MW 06/23/20 06/30/20 07/07/20 14:20 15:33 14:51 Wound Center Nurse 2 #1- LEFT GROIN- POST OP -Time 14:22 15:34 14:52 -Correct Patient Yes Yes Yes -Correct Side, Site, Position Yes Yes Yes -Correct Procedure Yes Yes Yes -Procedure Performed Yes Yes Yes -Type of Procedure Debridement Debridement Debridement -Clinical Debridement Subcutaneous Subcutaneous Subcutaneous -Tissue Removed Subcutaneous Subcutaneous Subcutaneous -Post Debridement (cm) - Length 1.5 1.3 1.5 -Post Debridement (cm) - Width 6.8 5.8 5.5 -Post Debridement (cm) - Depth 0.1 0.1 0.1 -Total Square (Post) (cm) 10.20 7.54 8.25 -Area of Debridement (cm) - Length 1.5 1.3 1.5 -Area of Debridement (cm) - Width 6.8 5.8 5.5 -Total Square (Area) (cm) 10.20 7.54 8.25 -Tunneling No No No -Undermining/Tunneling No No No -Circular Undermining No No No -Wound/Ulcer Outcome Not Healed Not Healed Not Healed -Ulcer Cleansing Rinsed/ Rinsed/ Rinsed/ Irrigated with Irrigated with Irrigated with Saline Saline Saline -Foul Odor after Cleansing No No No -Bioengineered Tissue No No No -Bleeding Controlled with Pressure, Pressure Pressure SURGIFOAM -Offloading No No No -Treatment Response Procedure Procedure Procedure Tolerated Well Tolerated Well Tolerated Well -Debridement - Subq, 1st 20sq cm Yes Yes Yes Pain Scale: 0-10 Numeric Is Patient Pain Free? Yes Yes Yes WC - Nurse 3 - General Ulcer D/C NN Start: 06/23/20 13:30 Freq: Status: Active Protocol: Activity Type Activity Date Activity User E-Sign Co-Sign Detail Recorded Client Recorded Date Recorded By Document 06/23/20 14:25 MW [id number] 06/23/20 14:27 MW Document 06/30/20 15:43 KR [id number] 06/30/20 15:44 KR Document 07/07/20 15:07 MS [id number] 07/07/20 15:08 MS 06/23/20 06/30/20 07/07/20 14:25 15:43 15:07 Wound Care Nurse 3 #1- LEFT GROIN- POST OP -Ulcer Cleansing Rinsed/ Rinsed/ Rinsed/ Irrigated with Irrigated with Irrigated with Saline Saline Saline -Foul Odor after Cleansing No No No -Negative Pressure Wound Therapy N/A Start -Setting (mmHg) 125 -Negative Pressure is Continuous -Primary Dressing Applied Aquacel Extra Aquacel Extra -Primary Dressing Covered/Secured with Dry Gauze, Dry Gauze, Secured with Secured with Tape Tape -NPWT Application Charge ($) NPWT </= 50 sq cm -Aquacel Extra 1 1 Treatment Response Procedure Tolerated Well Pain Scale: 0-10 Numeric Is Patient Pain Free? Yes Yes Yes Teaching: Wound Center Dressing Your Wound -Person Taught Patient -Teaching Method Discussion -Response to teaching Verbalize understanding WC - Visit Discharge Discharge Condition Stable Stable Stable Ambulatory Status Ambulatory Ambulatory Ambulatory Transportation Private Auto Private Auto Accompanied by self Medication Reconcilliation completed & No No provided to patient/care provider Clinical Summary of Care Provided Yes Yes Wound debrided: Left groin ulcer Laterality: Left Type of Debridement: Excisional debridement Anesthesia Used: 5% Lidocaine Gel Depth: in the subcutaneous layer Percentage of wound debrided: 100 Instrument Used: 5mm curette Tissue Removed: Slough and devitalized tissue Severity: Fat Layer Exposed Amount of bleeding with debridement: Mild Bleeding Controlled with: Pressure Patient tolerated procedure well Assessment/Plan Active Problems Intertrigo (Chronic) abdominal wall skin crease intertrigo Ulcer of left groin with fat layer exposed (Chronic) x 2 Type 2 diabetes mellitus (Chronic) Morbid obesity (Chronic) Non-healing surgical wound of left groin (Chronic) x 3 Assessment: Nonhealing postsurgical wound left groin status post surgical excision of necrotizing fasciitis. Morbid obesity. Type 2 diabetes mellitus Plan: Debridement done as documented above. Procedure was well-tolerated. Recent culture reviewed with patient and patient started on Clindagel topically and erythromycin orally which he completed. SNAP vac applied today. Optimal diabetes control again discussed. Continue increased protein intake. His questions were answered and he was advised to call with any further questions or concerns. Follow-up in 1 week at wound healing center. Surgery still on hold, will have reevaluation in 3 weeks.. This note was generated with [employer] software. It may contain incorrect words, spelling, and punctuation that were not noted in checking the note before signing. [id number]: [id number] Jessica subq tissue 20 sq cm/<
[2020-07-14 14:53] VITALS: BP 140/77; PULSE 77; RESP 20; TEMP 36.8
--- NOTE | 2020-07-14 16:18 | PN.PCM_ITS ---
(1) Non-healing surgical wound of left groin Status: Chronic Qualifiers: Code(s): T81.89XA - Other complications of procedures, not elsewhere classified, initial encounter Comment: x 3 (2) Intertrigo Status: Chronic Code(s): L30.4 - Erythema intertrigo Comment: abdominal wall skin crease intertrigo (3) Morbid obesity Status: Chronic Code(s): E66.01 - Morbid (severe) obesity due to excess calories (4) Type 2 diabetes mellitus Status: Chronic Qualifiers: Code(s): E11.9 - Type 2 diabetes mellitus without complications (5) Ulcer of left groin with fat layer exposed Status: Chronic Code(s): L98.492 - Non-pressure chronic ulcer of skin of other sites with fat layer exposed Comment: x 2 Type of Wound Date of Service: 07/14/20 Chief Complaint: Nonhealing wound status post surgical excision of necrotizing fasciitis left groin History of Wound: 46-year-old white male who presents to the wound healing center today with complaint of left groin ulceration status post surgical excision of necrotizing fasciitis. He is a past medical history which is significant for that of type 2 diabetes mellitus, gout, diabetic neuropathy, schizophrenia, bilateral lymphedema, and schizophrenia. The patient states that what initially started as a pimple in his left groin progressed to necrotizing fasciitis and he had to have this surgically debrided in April 2017. He was admitted to [facility] for rehabilitation for 2 weeks and then [facility] for 6 weeks afterwards. He states that the groin ulcer which extends to his left lower abdomen has been slowly improving and he has been doing daily Aquacel AG dressings with an ABD for the drainage. He does state that he has had 3 wound vacs in the past which were unable to be utilized due to the location of his wound. He denies any foul-smelling discharge or systemic signs of infection at this time. The patient otherwise denies any fever, chills, nausea, vomiting, shortness of breath, chest pain or pressure, palpitations, orthopnea, syncope or presyncopal episodes. Progress of Wound: Left groin ulcer stable, patient reports improved blood sugar readings, A1c was recently 5.8 which is drastically improved. SNAP vac only stayed on for a couple days and then fell off. No new concerns at this time. - Physical Exam Vital Signs Temp Pulse Resp BP 98.2 F 77 20 H 140/77 H 07/14/20 14:53 07/14/20 14:53 07/14/20 14:53 07/14/20 14:53 General: Alert, Oriented x3, Cooperative, No apparent distress HEENT: Atraumatic Lungs: Clear to auscultation, Normal air movement Cardiovascular: Regular rate Abdomen: Soft Extremities: No clubbing, No cyanosis, Edema - Chronic bilateral lower extremity edema Skin: Ulcer/ Wound - See nursing documentation, slough and devitalized tissue present, no signs of obvious infection at this time Wound Measurements and Assessment WC - Nurse 1 - General Ulcer Measurement Start: 06/23/20 13:30 Freq: Status: Active Protocol: Activity Type Activity Date Activity User E-Sign Co-Sign Detail Recorded Client Recorded Date Recorded By Document 07/14/20 14:53 DL [id number] 07/14/20 14:58 DL 07/14/20 14:53 Wound Center Nurse 1 [Ulcer Assessment] #1- LEFT GROIN- POST OP -Current Size (cm) - Length 6.3 -Current Size (cm) - Width 1 -Current Size (cm) - Depth 0.6 -Total Square Cm 6.3 -Exudate Amt Medium -Exudate Type Serous -Wound Margin Distinct, Outline Attached -Granulation Amt Large (67-100%) -Granulation Quality Red -Necrosis Amt None Present (0 %) -Texture (Inessa-wound Skin Appearance) Assessed, Scarring -Moisture (Inessa-wound Skin Appearance Assessed, ) Maceration -Color (Inessa-wound Skin Appearance) No Abnormality, Assessed -Temperature (Inessa-wound Skin No Abnormality Appearance) (Pt Warm) -Tenderness on Palpation (Inessa-wound No Skin Appearance) -Ulcer Cleansing Rinsed/ Irrigated with Saline -Foul Odor after Cleansing No -Anesthetic Used 4% Lidocaine Solution WC - Nurse 2 - General Ulcer CM Notes Start: 06/23/20 13:30 Freq: Status: Active Protocol: Activity Type Activity Date Activity User E-Sign Co-Sign Detail Recorded Client Recorded Date Recorded By Document 07/14/20 15:14 MW [id number] 07/14/20 15:15 MW 07/14/20 15:14 Wound Center Nurse 2 [Procedure/Treatment] -Time 15:15 -Correct Patient Yes -Correct Side, Site, Position Yes -Correct Procedure Yes -Procedure Performed Yes -Type of Procedure Debridement -Clinical Debridement Subcutaneous -Tissue Removed Subcutaneous -Post Debridement (cm) - Length 2.0 -Post Debridement (cm) - Width 5.9 -Post Debridement (cm) - Depth 0.1 -Total Square (Post) (cm) 11.80 -Area of Debridement (cm) - Length 2.0 -Area of Debridement (cm) - Width 5.9 -Total Square (Area) (cm) 11.80 -Tunneling No -Undermining/Tunneling No -Circular Undermining No -Wound/Ulcer Outcome Not Healed -Ulcer Cleansing Rinsed/ Irrigated with Saline -Foul Odor after Cleansing No -Bioengineered Tissue No -Bleeding Controlled with Pressure -Offloading No -Treatment Response Procedure Tolerated Well -Debridement - Subq, 1st 20sq cm Yes [See Physician Procedure note for Specifics] Pain Scale: 0-10 Numeric [Pain] -Is Patient Pain Free? Yes WC - Nurse 3 - General Ulcer D/C NN Start: 06/23/20 13:30 Freq: Status: Active Protocol: Activity Type Activity Date Activity User E-Sign Co-Sign Detail Recorded Client Recorded Date Recorded By Document 07/14/20 15:15 MW [id number] 07/14/20 15:17 MW 07/14/20 15:15 Wound Care Nurse 3 [Wound Dressing] #1- LEFT GROIN- POST OP -Ulcer Cleansing Rinsed/ Irrigated with Saline -Foul Odor after Cleansing No -Negative Pressure Wound Therapy N/A -Primary Dressing Applied Fibracol Plus 4x4 -Primary Dressing Covered/Secured Dry Gauze, with Secured with Tape -Fibracol Plus 4x4 3 [Post Procedure Tolerated] -Treatment Response Procedure Tolerated Well Pain Scale: 0-10 Numeric [Pain] -Is Patient Pain Free? Yes Teaching: Wound Center [Wound Center Education] (Items with an * have Printed Materials Available- Please identify what is given to patient under the Teaching materials given to patient and caregiver Section. Dressing Your Wound -Person Taught Patient -Teaching Method Discussion, Demonstration -Response to teaching Verbalize understanding WC - Visit Discharge [Visit Discharge Information] -Discharge Condition Stable -Ambulatory Status Ambulatory -Transportation Private Auto -Accompanied by self -Medication Reconcilliation completed No & provided to patient/care provider -Clinical Summary of Care Provided Yes Neurological: Neuro grossly intact Psych/Mental Status: Normal Affect, Appropriate, Alert and oriented to time, place, person, mood and affect Debridement Note Post-Debridement Measurements/Treatment WC - Nurse 2 - General Ulcer CM Notes Start: 06/23/20 13:30 Freq: Status: Active Protocol: Activity Type Activity Date Activity User E-Sign Co-Sign Detail Recorded Client Recorded Date Recorded By Document 06/23/20 14:20 MW [id number] 06/23/20 14:23 MW Document 06/30/20 15:33 MW [id number] 06/30/20 15:35 MW Document 07/07/20 14:51 MW [id number] 07/07/20 14:53 MW Document 07/14/20 15:14 MW [id number] 07/14/20 15:15 MW 06/23/20 06/30/20 07/07/20 14:20 15:33 14:51 Wound Center Nurse 2 #1- LEFT GROIN- POST OP -Time 14:22 15:34 14:52 -Correct Patient Yes Yes Yes -Correct Side, Site, Position Yes Yes Yes -Correct Procedure Yes Yes Yes -Procedure Performed Yes Yes Yes -Type of Procedure Debridement Debridement Debridement -Clinical Debridement Subcutaneous Subcutaneous Subcutaneous -Tissue Removed Subcutaneous Subcutaneous Subcutaneous -Post Debridement (cm) - Length 1.5 1.3 1.5 -Post Debridement (cm) - Width 6.8 5.8 5.5 -Post Debridement (cm) - Depth 0.1 0.1 0.1 -Total Square (Post) (cm) 10.20 7.54 8.25 -Area of Debridement (cm) - Length 1.5 1.3 1.5 -Area of Debridement (cm) - Width 6.8 5.8 5.5 -Total Square (Area) (cm) 10.20 7.54 8.25 -Tunneling No No No -Undermining/Tunneling No No No -Circular Undermining No No No -Wound/Ulcer Outcome Not Healed Not Healed Not Healed -Ulcer Cleansing Rinsed/ Rinsed/ Rinsed/ Irrigated with Irrigated with Irrigated with Saline Saline Saline -Foul Odor after Cleansing No No No -Bioengineered Tissue No No No -Bleeding Controlled with Pressure, Pressure Pressure SURGIFOAM -Offloading No No No -Treatment Response Procedure Procedure Procedure Tolerated Well Tolerated Well Tolerated Well -Debridement - Subq, 1st 20sq cm Yes Yes Yes Pain Scale: 0-10 Numeric Is Patient Pain Free? Yes Yes Yes 07/14/20 15:14 Wound Center Nurse 2 #1- LEFT GROIN- POST OP -Time 15:15 -Correct Patient Yes -Correct Side, Site, Position Yes -Correct Procedure Yes -Procedure Performed Yes -Type of Procedure Debridement -Clinical Debridement Subcutaneous -Tissue Removed Subcutaneous -Post Debridement (cm) - Length 2.0 -Post Debridement (cm) - Width 5.9 -Post Debridement (cm) - Depth 0.1 -Total Square (Post) (cm) 11.80 -Area of Debridement (cm) - Length 2.0 -Area of Debridement (cm) - Width 5.9 -Total Square (Area) (cm) 11.80 -Tunneling No -Undermining/Tunneling No -Circular Undermining No -Wound/Ulcer Outcome Not Healed -Ulcer Cleansing Rinsed/ Irrigated with Saline -Foul Odor after Cleansing No -Bioengineered Tissue No -Bleeding Controlled with Pressure -Offloading No -Treatment Response Procedure Tolerated Well -Debridement - Subq, 1st 20sq cm Yes Pain Scale: 0-10 Numeric Is Patient Pain Free? Yes - Nurse 3 - General Ulcer D/C NN Start: 06/23/20 13:30 Freq: Status: Active Protocol: Activity Type Activity Date Activity User E-Sign Co-Sign Detail Recorded Client Recorded Date Recorded By Document 06/23/20 14:25 MW [id number] 06/23/20 14:27 MW Document 06/30/20 15:43 KR [id number] 06/30/20 15:44 KR Document 07/07/20 15:07 MS [id number] 07/07/20 15:08 MS Document 07/14/20 15:15 MW [id number] 07/14/20 15:17 MW 06/23/20 06/30/20 07/07/20 14:25 15:43 15:07 Wound Care Nurse 3 #1- LEFT GROIN- POST OP -Ulcer Cleansing Rinsed/ Rinsed/ Rinsed/ Irrigated with Irrigated with Irrigated with Saline Saline Saline -Foul Odor after Cleansing No No No -Negative Pressure Wound Therapy N/A Start -Setting (mmHg) 125 -Negative Pressure is Continuous -Primary Dressing Applied Aquacel Extra Aquacel Extra -Primary Dressing Covered/Secured with Dry Gauze, Dry Gauze, Secured with Secured with Tape Tape -NPWT Application Charge ($) NPWT </= 50 sq cm (disp) -Aquacel Extra 1 1 -Fibracol Plus 4x4 Treatment Response Procedure Tolerated Well Pain Scale: 0-10 Numeric Is Patient Pain Free? Yes Yes Yes Teaching: Wound Center Dressing Your Wound -Person Taught Patient -Teaching Method Discussion -Response to teaching Verbalize understanding WC - Visit Discharge Discharge Condition Stable Stable Stable Ambulatory Status Ambulatory Ambulatory Ambulatory Transportation Private Auto Private Auto Accompanied by self Medication Reconcilliation completed & No No provided to patient/care provider Clinical Summary of Care Provided Yes Yes 07/14/20 15:15 Wound Care Nurse 3 #1- LEFT GROIN- POST OP -Ulcer Cleansing Rinsed/ Irrigated with Saline -Foul Odor after Cleansing No -Negative Pressure Wound Therapy N/A -Setting (mmHg) -Negative Pressure is -Primary Dressing Applied Fibracol Plus 4x4 -Primary Dressing Covered/Secured with Dry Gauze, Secured with Tape -NPWT Application Charge ($) -Aquacel Extra -Fibracol Plus 4x4 3 Treatment Response Procedure Tolerated Well Pain Scale: 0-10 Numeric Is Patient Pain Free? Yes Teaching: Wound Center Dressing Your Wound -Person Taught Patient -Teaching Method Discussion, Demonstration -Response to teaching Verbalize understanding WC - Visit Discharge Discharge Condition Stable Ambulatory Status Ambulatory Transportation Private Auto Accompanied by self Medication Reconcilliation completed & No provided to patient/care provider Clinical Summary of Care Provided Yes Wound debrided: Left groin nonhealing ulcer status post necrotizing fasciitis surgical debr Laterality: Left Type of Debridement: Excisional debridement Anesthesia Used: 5% Lidocaine Gel Depth: in the subcutaneous layer Percentage of wound debrided: 100 Instrument Used: 5mm curette Tissue Removed: Slough and devitalized tissue Severity: Fat Layer Exposed Amount of bleeding with debridement: Mild Bleeding Controlled with: Pressure Patient tolerated procedure well Assessment/Plan Active Problems Intertrigo (Chronic) abdominal wall skin crease intertrigo Ulcer of left groin with fat layer exposed (Chronic) x 2 Type 2 diabetes mellitus (Chronic) Morbid obesity (Chronic) Non-healing surgical wound of left groin (Chronic) x 3 Assessment: Nonhealing postsurgical wound left groin status post surgical excision of necrotizing fasciitis. Morbid obesity. Type 2 diabetes mellitus Plan: Debridement done as documented above. Procedure was well-tolerated. Recent culture reviewed with patient and patient started on Clindagel topically and erythromycin orally which he completed. We will change his dressings to Fibracol apply twice daily cover with gauze for excess drainage. Optimal diabetes control again discussed. Continue increased protein intake. His questions were answered and he was advised to call with any further questions or concerns. Follow-up in 1 week at wound healing center. Surgery still on hold, will have reevaluation in 3 weeks.. This note was generated with [employer] dictation software. It may contain incorrect words, spelling, and punctuation that were not noted in checking the note before signing. [id number]: [id number] Jessica subq tissue 20 sq cm/<
== END 2020-07-20 23:59 ==
LOC: WC 14:00
PROVIDERS: Family Provider Family Medicine; PCP Family Medicine; Referring Provider Nurse Practitioner Family; Visit Provider Nurse Practitioner Family
DX: T81.89XA Other complications of procedures, not elsewhere classified, initial encounter (principal); L98.492 Non-pressure chronic ulcer of skin of other sites with fat layer exposed; E11.40 Type 2 diabetes mellitus with diabetic neuropathy, unspecified; I89.0 Lymphedema, not elsewhere classified; L30.4 Erythema intertrigo; F20.9 Schizophrenia, unspecified; E66.01 Morbid (severe) obesity due to excess calories; Z79.4 Long term (current) use of insulin; Z79.899 Other long term (current) drug therapy
CPT/HCPCS: 11042; 97605; 97607

== ENCOUNTER 2020-08-18 15:15 | Outpatient (RCR) | payer MEDICARE, MEDICAID, SELFPAY ==
[2020-07-21 00:28] VITALS: BP 140/77; PULSE 77; RESP 20; TEMP 36.8
[2020-07-21 15:44] VITALS: BP 126/68; PULSE 75; RESP 16; TEMP 36
--- NOTE | 2020-07-22 09:42 | PCM.WC.PN ---
(1) Lymphedema of both lower extremities Status: Acute Code(s): I89.0 - Lymphedema, not elsewhere classified (2) Abdominal panniculus Status: Chronic Code(s): E65 - Localized adiposity (3) History of necrotising fasciitis Status: Chronic Code(s): Z87.39 - Personal history of other diseases of the musculoskeletal system and connective tissue (4) Intertrigo Status: Chronic Code(s): L30.4 - Erythema intertrigo Comment: abdominal wall skin crease intertrigo (5) Non-healing surgical wound of left groin Status: Chronic Qualifiers: Code(s): T81.89XA - Other complications of procedures, not elsewhere classified, initial encounter Comment: x 3 (6) Type 2 diabetes mellitus Status: Chronic Qualifiers: Code(s): E11.9 - Type 2 diabetes mellitus without complications Type of Wound Date of Service: 07/21/20 Chief Complaint: Nonhealing wound status post surgical excision of necrotizing fasciitis left groin History of Wound: 46-year-old white male who presents to the wound healing center today with complaint of left groin ulceration status post surgical excision of necrotizing fasciitis. He is a past medical history which is significant for that of type 2 diabetes mellitus, gout, diabetic neuropathy, schizophrenia, bilateral lymphedema, and schizophrenia. The patient states that what initially started as a pimple in his left groin progressed to necrotizing fasciitis and he had to have this surgically debrided in April 2017. He was admitted to [facility] for 2 weeks and then [facility] for 6 weeks afterwards. He states that the groin ulcer which extends to his left lower abdomen has been slowly improving and he has been doing daily Aquacel AG dressings with an ABD for the drainage. He does state that he has had 3 wound vacs in the past which were unable to be utilized due to the location of his wound. He denies any foul-smelling discharge or systemic signs of infection at this time. The patient otherwise denies any fever, chills, nausea, vomiting, shortness of breath, chest pain or pressure, palpitations, orthopnea, syncope or presyncopal episodes. Progress of Wound: Left groin ulcer stable, patient reports improved blood sugar readings, A1c was recently 5.8 which is drastically improved. No new concerns at this time. - Physical Exam Vital Signs Temp Pulse Resp BP 96.8 F L 75 16 126/68 H 07/21/20 15:44 07/21/20 15:44 07/21/20 15:44 07/21/20 15:44 General: Alert, Oriented x3, Cooperative, No apparent distress HEENT: Atraumatic Lungs: Clear to auscultation Cardiovascular: Regular rate Abdomen: Soft, Non Tender Extremities: No clubbing, No cyanosis Skin: Ulcer/ Wound - See nursing Documentation, slough And devitalizedtissue present, no signs of obvious infection at this time Wound Measurements and Assessment - Nurse 1 - General Ulcer Measurement Start: 07/21/20 15:43 Freq: Status: Active Protocol: Activity Type Activity Date Activity User E-Sign Co-Sign Detail Recorded Client Recorded Date Recorded By Document 07/21/20 15:44 MS [id number] 07/21/20 15:52 MS 07/21/20 15:44 Wound Center Nurse 1 [Ulcer Assessment] #1- LEFT GROIN- POST OP -Current Size (cm) - Length 0.1 -Current Size (cm) - Width 6.5 -Current Size (cm) - Depth 0.1 -Total Square Cm 0.65 -Exudate Amt Medium -Exudate Type Serosanguineous -Wound Margin Distinct, Outline Attached -Granulation Amt Medium (34-66%) -Slough/Fibrin Yes -Texture (Inessa-wound Skin Appearance) No Abnormality -Moisture (Inessa-wound Skin Appearance Maceration ) -Color (Inessa-wound Skin Appearance) No Abnormality -Temperature (Inessa-wound Skin No Abnormality Appearance) (Pt Warm) -Tenderness on Palpation (Inessa-wound No Skin Appearance) -Ulcer Cleansing Rinsed/ Irrigated with Saline -Anesthetic Used 4% Lidocaine Solution - Nurse 2 - General Ulcer CM Notes Start: 07/21/20 15:43 Freq: Status: Active Protocol: Activity Type Activity Date Activity User E-Sign Co-Sign Detail Recorded Client Recorded Date Recorded By Document 07/21/20 15:54 MW [id number] 07/21/20 15:55 MW 07/21/20 15:54 Wound Center Nurse 2 [Procedure/Treatment] -Time 15:54 -Correct Patient Yes -Correct Side, Site, Position Yes -Correct Procedure Yes -Procedure Performed Yes -Type of Procedure Debridement -Clinical Debridement Subcutaneous -Tissue Removed Subcutaneous -Post Debridement (cm) - Length 1.5 -Post Debridement (cm) - Width 6.0 -Post Debridement (cm) - Depth 0.1 -Total Square (Post) (cm) 9.00 -Area of Debridement (cm) - Length 1.5 -Area of Debridement (cm) - Width 6.0 -Total Square (Area) (cm) 9.00 -Tunneling No -Undermining/Tunneling No -Circular Undermining No -Wound/Ulcer Outcome Not Healed -Ulcer Cleansing Rinsed/ Irrigated with Saline -Foul Odor after Cleansing No -Bioengineered Tissue No -Bleeding Controlled with Pressure, SURGIFOAM -Offloading No -Treatment Response Procedure Tolerated Well -Debridement - Subq, 1st 20sq cm Yes [See Physician Procedure note for Specifics] Pain Scale: 0-10 Numeric [Pain] -Is Patient Pain Free? Yes - Nurse 3 - General Ulcer D/C NN Start: 07/21/20 15:43 Freq: Status: Active Protocol: Activity Type Activity Date Activity User E-Sign Co-Sign Detail Recorded Client Recorded Date Recorded By Document 07/21/20 15:55 MW [id number] 07/21/20 15:56 MW 07/21/20 15:55 Wound Care Nurse 3 [Wound Dressing] #1- LEFT GROIN- POST OP -Ulcer Cleansing Rinsed/ Irrigated with Saline -Foul Odor after Cleansing No -Negative Pressure Wound Therapy N/A -Primary Dressing Applied Aquacel AG 4x4, Fibracol Plus 4x4 -Primary Dressing Covered/Secured Dry Gauze, with Secured with Tape -Aquacel AG 4x4 1 -Fibracol Plus 4x4 1 [Post Procedure Tolerated] -Treatment Response Procedure Tolerated Well Pain Scale: 0-10 Numeric [Pain] -Is Patient Pain Free? Yes Teaching: Wound Center [Wound Center Education] (Items with an * have Printed Materials Available- Please identify what is given to patient under the Teaching materials given to patient and caregiver Section. Dressing Your Wound -Person Taught Patient -Teaching Method Discussion, Demonstration -Response to teaching Verbalize understanding WC - Visit Discharge [Visit Discharge Information] -Discharge Condition Stable -Ambulatory Status Ambulatory -Transportation Private Auto -Accompanied by BROTHER -Medication Reconcilliation completed No & provided to patient/care provider -Clinical Summary of Care Provided Yes Neurological: Neuro grossly intact Psych/Mental Status: Normal Affect, Appropriate Debridement Note Post-Debridement Measurements/Treatment - Nurse 2 - General Ulcer CM Notes Start: 07/21/20 15:43 Freq: Status: Active Protocol: Activity Type Activity Date Activity User E-Sign Co-Sign Detail Recorded Client Recorded Date Recorded By Document 07/21/20 15:54 MW [id number] 07/21/20 15:55 MW 07/21/20 15:54 Wound Center Nurse 2 #1- LEFT GROIN- POST OP -Time 15:54 -Correct Patient Yes -Correct Side, Site, Position Yes -Correct Procedure Yes -Procedure Performed Yes -Type of Procedure Debridement -Clinical Debridement Subcutaneous -Tissue Removed Subcutaneous -Post Debridement (cm) - Length 1.5 -Post Debridement (cm) - Width 6.0 -Post Debridement (cm) - Depth 0.1 -Total Square (Post) (cm) 9.00 -Area of Debridement (cm) - Length 1.5 -Area of Debridement (cm) - Width 6.0 -Total Square (Area) (cm) 9.00 -Tunneling No -Undermining/Tunneling No -Circular Undermining No -Wound/Ulcer Outcome Not Healed -Ulcer Cleansing Rinsed/ Irrigated with Saline -Foul Odor after Cleansing No -Bioengineered Tissue No -Bleeding Controlled with Pressure, SURGIFOAM -Offloading No -Treatment Response Procedure Tolerated Well -Debridement - Subq, 1st 20sq cm Yes Pain Scale: 0-10 Numeric Is Patient Pain Free? Yes - Nurse 3 - General Ulcer D/C NN Start: 07/21/20 15:43 Freq: Status: Active Protocol: Activity Type Activity Date Activity User E-Sign Co-Sign Detail Recorded Client Recorded Date Recorded By Document 07/21/20 15:55 MW [id number] 07/21/20 15:56 MW 07/21/20 15:55 Wound Care Nurse 3 #1- LEFT GROIN- POST OP -Ulcer Cleansing Rinsed/ Irrigated with Saline -Foul Odor after Cleansing No -Negative Pressure Wound Therapy N/A -Primary Dressing Applied Aquacel AG 4x4, Fibracol Plus 4x4 -Primary Dressing Covered/Secured with Dry Gauze, Secured with Tape -Aquacel AG 4x4 1 -Fibracol Plus 4x4 1 Treatment Response Procedure Tolerated Well Pain Scale: 0-10 Numeric Is Patient Pain Free? Yes Teaching: Wound Center Dressing Your Wound -Person Taught Patient -Teaching Method Discussion, Demonstration -Response to teaching Verbalize understanding WC - Visit Discharge Discharge Condition Stable Ambulatory Status Ambulatory Transportation Private Auto Accompanied by BROTHER Medication Reconcilliation completed & No provided to patient/care provider Clinical Summary of Care Provided Yes Wound debrided: Left groin ulcer Laterality: Left Type of Debridement: Excisional debridement Anesthesia Used: 5% Lidocaine Gel Depth: in the subcutaneous layer Percentage of wound debrided: 100 Instrument Used: 5mm curette Tissue Removed: Slough and devitalized tissue Severity: Fat Layer Exposed Amount of bleeding with debridement: Mild Bleeding Controlled with: Pressure Patient tolerated procedure well Assessment/Plan Assessment: Nonhealing postsurgical wound left groin status post surgical excision of necrotizing fasciitis. Morbid obesity. Type 2 diabetes mellitus Plan: Debridement done as documented above. Procedure was well-tolerated. Continue with aquacell silver and Fibracol apply twice daily cover with gauze for excess drainage. Optimal diabetes control again discussed. Continue increased protein intake. His questions were answered and he was advised to call with any further questions or concerns. Follow-up in 1 week at wound healing center. Surgery still on hold, will have reevaluation in 3 weeks.. This note was generated with [employer] dictation software. It may contain incorrect words, spelling, and punctuation that were not noted in checking the note before signing. [id number]: [id number] Jessica subq tissue 20 sq cm/<
[2020-07-28 15:23] VITALS: BP 123/60; PULSE 91; RESP 18; TEMP 36.1
--- NOTE | 2020-07-28 19:15 | PN.PCM_ITS ---
(1) Lymphedema of both lower extremities Status: Acute Code(s): I89.0 - Lymphedema, not elsewhere classified (2) Abdominal panniculus Status: Chronic Code(s): E65 - Localized adiposity (3) History of necrotising fasciitis Status: Chronic Code(s): Z87.39 - Personal history of other diseases of the musculoskeletal system and connective tissue (4) Intertrigo Status: Chronic Code(s): L30.4 - Erythema intertrigo Comment: abdominal wall skin crease intertrigo (5) Non-healing surgical wound of left groin Status: Chronic Qualifiers: Code(s): T81.89XA - Other complications of procedures, not elsewhere classified, initial encounter Comment: x 3 (6) Type 2 diabetes mellitus Status: Chronic Qualifiers: Code(s): E11.9 - Type 2 diabetes mellitus without complications Type of Wound Date of Service: 07/28/20 Chief Complaint: Nonhealing wound status post surgical excision of necrotizing fasciitis left groin History of Wound: 46-year-old white male who presents to the wound healing center today with complaint of left groin ulceration status post surgical excision of necrotizing fasciitis. He is a past medical history which is significant for that of type 2 diabetes mellitus, gout, diabetic neuropathy, schizophrenia, bilateral lymphedema, and schizophrenia. The patient states that what initially started as a pimple in his left groin progressed to necrotizing fasciitis and he had to have this surgically debrided in April 2017. He was admitted to [facility] for 2 weeks and then [facility] for 6 weeks afterwards. He states that the groin ulcer which extends to his left lower abdomen has been slowly improving and he has been doing daily Aquacel AG dressings with an ABD for the drainage. He does state that he has had 3 wound vacs in the past which were unable to be utilized due to the location of his wound. He denies any foul-smelling discharge or systemic signs of infection at this time. The patient otherwise denies any fever, chills, nausea, vomiting, shortness of breath, chest pain or pressure, palpitations, orthopnea, syncope or presyncopal episodes. Progress of Wound: Left groin ulcer stable, patient reports improved blood sugar readings, A1c was recently 5.8 which is drastically improved. No new concerns at this time. - Physical Exam Vital Signs Temp Pulse Resp BP 97.0 F L 91 18 123/60 H 07/28/20 15:23 07/28/20 15:23 07/28/20 15:23 07/28/20 15:23 General: Alert, Oriented x3, Cooperative, No apparent distress HEENT: Atraumatic Oral: Moist Mucosa Lungs: Clear to auscultation, Normal air movement Cardiovascular: Regular rate Abdomen: Soft, Non Tender Extremities: No clubbing, No cyanosis, Edema - Bilateral lower extremity edema Skin: Ulcer/ Wound - Left groin ulcer with adherent slough and slight maceration, no signs of obvious infection at this time Neurological: Neuro grossly intact Psych/Mental Status: Normal Affect, Appropriate, Alert and oriented to time, place, person, mood and affect Debridement Note Post-Debridement Measurements/Treatment WC - Nurse 2 - General Ulcer CM Notes Start: 07/21/20 15:43 Freq: Status: Active Protocol: Activity Type Activity Date Activity User E-Sign Co-Sign Detail Recorded Client Recorded Date Recorded By Document 07/21/20 15:54 MW [id number] 07/21/20 15:55 MW Document 07/28/20 15:47 MW [id number] 07/28/20 15:50 MW 07/21/20 07/28/20 15:54 15:47 Wound Center Nurse 2 #1- LEFT GROIN- POST OP -Time 15:54 15:47 -Correct Patient Yes Yes -Correct Side, Site, Position Yes Yes -Correct Procedure Yes Yes -Procedure Performed Yes Yes -Type of Procedure Debridement Debridement -Clinical Debridement Subcutaneous Subcutaneous -Tissue Removed Subcutaneous Subcutaneous -Post Debridement (cm) - Length 1.5 1.5 -Post Debridement (cm) - Width 6.0 6.3 -Post Debridement (cm) - Depth 0.1 0.1 -Total Square (Post) (cm) 9.00 9.45 -Area of Debridement (cm) - Length 1.5 1.5 -Area of Debridement (cm) - Width 6.0 6.3 -Total Square (Area) (cm) 9.00 9.45 -Tunneling No No -Undermining/Tunneling No No -Circular Undermining No No -Wound/Ulcer Outcome Not Healed Not Healed -Ulcer Cleansing Rinsed/ Rinsed/ Irrigated with Irrigated with Saline Saline -Foul Odor after Cleansing No No -Bioengineered Tissue No No -Bleeding Controlled with Pressure, Pressure SURGIFOAM -Offloading No No -Treatment Response Procedure Procedure Tolerated Well Tolerated Well -Debridement - Subq, 1st 20sq cm Yes Yes Pain Scale: 0-10 Numeric Is Patient Pain Free? Yes Yes - Nurse 3 - General Ulcer D/C NN Start: 07/21/20 15:43 Freq: Status: Active Protocol: Activity Type Activity Date Activity User E-Sign Co-Sign Detail Recorded Client Recorded Date Recorded By Document 07/21/20 15:55 MW [id number] 07/21/20 15:56 MW Document 07/28/20 15:51 MW [id number] 07/28/20 15:52 MW 07/21/20 07/28/20 15:55 15:51 Wound Care Nurse 3 #1- LEFT GROIN- POST OP -Ulcer Cleansing Rinsed/ Rinsed/ Irrigated with Irrigated with Saline Saline -Foul Odor after Cleansing No No -Negative Pressure Wound Therapy N/A N/A -Primary Dressing Applied Aquacel AG 4x4, Aquacel Extra Fibracol Plus 4x4 -Other Dressing xeroform -Primary Dressing Covered/Secured with Dry Gauze, Dry Gauze, Secured with Secured with Tape Tape -Aquacel Extra 1 -Aquacel AG 4x4 1 -Fibracol Plus 4x4 1 Treatment Response Procedure Procedure Tolerated Well Tolerated Well Pain Scale: 0-10 Numeric Is Patient Pain Free? Yes Teaching: Wound Center Dressing Your Wound -Person Taught Patient Patient -Teaching Method Discussion, Discussion Demonstration -Response to teaching Verbalize Verbalize understanding understanding WC - Visit Discharge Discharge Condition Stable Stable Ambulatory Status Ambulatory Ambulatory Transportation Private Auto Private Auto Accompanied by BROTHER brother Medication Reconcilliation completed & No No provided to patient/care provider Clinical Summary of Care Provided Yes Yes Wound debrided: Left groin ulcer Laterality: Left Type of Debridement: Excisional debridement Anesthesia Used: 5% Lidocaine Gel Depth: in the subcutaneous layer Percentage of wound debrided: 100 Instrument Used: 5mm curette Tissue Removed: Slough and devitalized tissue Severity: Fat Layer Exposed Amount of bleeding with debridement: Mild Bleeding Controlled with: Pressure Patient tolerated procedure well Assessment/Plan Active Problems Intertrigo (Chronic) abdominal wall skin crease intertrigo Abdominal panniculus (Chronic) History of necrotising fasciitis (Chronic) Lymphedema of both lower extremities (Acute) Type 2 diabetes mellitus (Chronic) Non-healing surgical wound of left groin (Chronic) x 3 Assessment: Nonhealing postsurgical wound left groin status post surgical excision of necrotizing fasciitis. Morbid obesity. Type 2 diabetes mellitus Plan: Debridement done as documented above. Procedure was well-tolerated. Dressing changes will consist of Aquacel extra and Xeroform Alternating, apply twice daily cover with gauze for excess drainage. Optimal diabetes control again discussed. Continue increased protein intake. His questions were answered and he was advised to call with any further questions or concerns. Follow-up in 1 week at wound healing center. Surgery still on hold, will have reevaluation in 3 weeks.. This note was generated with [employer] dictation software. It may contain incorrect words, spelling, and punctuation that were not noted in checking the note before signing. [id number]: [id number] Jessica subq tissue 20 sq cm/<
[2020-08-04 15:24] VITALS: BP 112/57; PULSE 82; RESP 20; TEMP 36.8
--- NOTE | 2020-08-05 11:43 | PCM.WC.PN ---
(1) Lymphedema of both lower extremities Status: Acute Code(s): I89.0 - Lymphedema, not elsewhere classified (2) Abdominal panniculus Status: Chronic Code(s): E65 - Localized adiposity (3) History of necrotising fasciitis Status: Chronic Code(s): Z87.39 - Personal history of other diseases of the musculoskeletal system and connective tissue (4) Intertrigo Status: Chronic Code(s): L30.4 - Erythema intertrigo Comment: abdominal wall skin crease intertrigo (5) Non-healing surgical wound of left groin Status: Chronic Qualifiers: Code(s): T81.89XA - Other complications of procedures, not elsewhere classified, initial encounter Comment: x 3 (6) Type 2 diabetes mellitus Status: Chronic Qualifiers: Code(s): E11.9 - Type 2 diabetes mellitus without complications Type of Wound Date of Service: 08/04/20 Chief Complaint: Nonhealing wound status post surgical excision of necrotizing fasciitis left groin History of Wound: 46-year-old white male who presents to the wound healing center today with complaint of left groin ulceration status post surgical excision of necrotizing fasciitis. He is a past medical history which is significant for that of type 2 diabetes mellitus, gout, diabetic neuropathy, schizophrenia, bilateral lymphedema, and schizophrenia. The patient states that what initially started as a pimple in his left groin progressed to necrotizing fasciitis and he had to have this surgically debrided in April 2017. He was admitted to [facility] for 2 weeks and then [facility] for 6 weeks afterwards. He states that the groin ulcer which extends to his left lower abdomen has been slowly improving and he has been doing daily Aquacel AG dressings with an ABD for the drainage. He does state that he has had 3 wound vacs in the past which were unable to be utilized due to the location of his wound. He denies any foul-smelling discharge or systemic signs of infection at this time. The patient otherwise denies any fever, chills, nausea, vomiting, shortness of breath, chest pain or pressure, palpitations, orthopnea, syncope or presyncopal episodes. Progress of Wound: Left groin ulcer stable, patient reports improved blood sugar readings, A1c was recently 5.8 which is drastically improved. No new concerns at this time. - Physical Exam Vital Signs Temp Pulse Resp BP 98.2 F 82 20 H 112/57 L 08/04/20 15:24 08/04/20 15:24 08/04/20 15:24 08/04/20 15:24 General: Alert, Oriented x3, Cooperative, No apparent distress HEENT: Atraumatic Oral: Moist Mucosa Lungs: Clear to auscultation Cardiovascular: Regular rate Abdomen: Soft, Non Tender, Obese Extremities: No clubbing, No cyanosis, No edema Skin: Ulcer/ Wound - See nursing documentation, slough and devitalized tissue present, no signs of infection at this time Wound Measurements and Assessment WC - Nurse 1 - General Ulcer Measurement Start: 07/21/20 15:43 Freq: Status: Active Protocol: Activity Type Activity Date Activity User E-Sign Co-Sign Detail Recorded Client Recorded Date Recorded By Document 08/04/20 15:24 DL [id number] 08/04/20 15:32 DL 08/04/20 15:24 Wound Center Nurse 1 [Ulcer Assessment] #1- LEFT GROIN- POST OP -Current Size (cm) - Length 1 -Current Size (cm) - Width 0.6 -Current Size (cm) - Depth 0.5 -Total Square Cm 0.6 -Photo Taken No -Exudate Amt Small -Exudate Type Serosanguineous -Wound Margin Thickened -Granulation Amt Large (67-100%) -Granulation Quality [place] -Necrosis Amt Small (1-33%) -Necrotic Tissue Type Adherent Slough -Structure Exposed N/A -Texture (Inessa-wound Skin Appearance) Scarring -Moisture (Inessa-wound Skin Appearance Maceration ) -Color (Inessa-wound Skin Appearance) No Abnormality -Temperature (Inessa-wound Skin No Abnormality Appearance) (Pt Warm) -Tenderness on Palpation (Inessa-wound No Skin Appearance) -Ulcer Cleansing Rinsed/ Irrigated with Saline -Foul Odor after Cleansing No -Anesthetic Used 4% Lidocaine Solution WC - Nurse 2 - General Ulcer CM Notes Start: 07/21/20 15:43 Freq: Status: Active Protocol: Activity Type Activity Date Activity User E-Sign Co-Sign Detail Recorded Client Recorded Date Recorded By Document 08/04/20 15:50 MW [id number] 08/04/20 16:31 MW 08/04/20 15:50 Wound Center Nurse 2 [Procedure/Treatment] -Time 15:50 -Correct Patient Yes -Correct Side, Site, Position Yes -Correct Procedure Yes -Procedure Performed Yes -Type of Procedure Debridement -Clinical Debridement Subcutaneous -Tissue Removed Subcutaneous -Post Debridement (cm) - Length 1.4 -Post Debridement (cm) - Width 5.8 -Post Debridement (cm) - Depth 0.1 -Total Square (Post) (cm) 8.12 -Area of Debridement (cm) - Length 1.4 -Area of Debridement (cm) - Width 5.8 -Total Square (Area) (cm) 8.12 -Tunneling No -Undermining/Tunneling No -Circular Undermining No -Wound/Ulcer Outcome Not Healed -Ulcer Cleansing Rinsed/ Irrigated with Saline -Foul Odor after Cleansing No -Bioengineered Tissue No -Bleeding Controlled with Pressure -Offloading No -Treatment Response Procedure Tolerated Well -Debridement - Subq, 1st 20sq cm Yes [See Physician Procedure note for Specifics] Pain Scale: 0-10 Numeric [Pain] -Is Patient Pain Free? Yes - Nurse 3 - General Ulcer D/C NN Start: 07/21/20 15:43 Freq: Status: Active Protocol: Activity Type Activity Date Activity User E-Sign Co-Sign Detail Recorded Client Recorded Date Recorded By Document 08/04/20 15:59 MS [id number] 08/04/20 16:01 MS 08/04/20 15:59 Wound Care Nurse 3 [Wound Dressing] #1- LEFT GROIN- POST OP -Ulcer Cleansing Rinsed/ Irrigated with Saline -Foul Odor after Cleansing No -Primary Dressing Applied Aquacel Extra -Other Dressing xeroform -Primary Dressing Covered/Secured Dry Gauze, with Secured with Tape -Aquacel Extra 1 Pain Scale: 0-10 Numeric [Pain] -Is Patient Pain Free? Yes - Visit Discharge [Visit Discharge Information] -Discharge Condition Stable -Ambulatory Status Ambulatory -Medication Reconcilliation completed No & provided to patient/care provider -Clinical Summary of Care Provided Yes Neurological: Neuro grossly intact Psych/Mental Status: Normal Affect, Appropriate, Alert and oriented to time, place, person, mood and affect Debridement Note Post-Debridement Measurements/Treatment - Nurse 2 - General Ulcer CM Notes Start: 07/21/20 15:43 Freq: Status: Active Protocol: Activity Type Activity Date Activity User E-Sign Co-Sign Detail Recorded Client Recorded Date Recorded By Document 07/21/20 15:54 MW [id number] 07/21/20 15:55 MW Document 07/28/20 15:47 MW [id number] 07/28/20 15:50 MW Document 08/04/20 15:50 MW [id number] 08/04/20 16:31 MW 07/21/20 07/28/20 08/04/20 15:54 15:47 15:50 Wound Center Nurse 2 #1- LEFT GROIN- POST OP -Time 15:54 15:47 15:50 -Correct Patient Yes Yes Yes -Correct Side, Site, Position Yes Yes Yes -Correct Procedure Yes Yes Yes -Procedure Performed Yes Yes Yes -Type of Procedure Debridement Debridement Debridement -Clinical Debridement Subcutaneous Subcutaneous Subcutaneous -Tissue Removed Subcutaneous Subcutaneous Subcutaneous -Post Debridement (cm) - Length 1.5 1.5 1.4 -Post Debridement (cm) - Width 6.0 6.3 5.8 -Post Debridement (cm) - Depth 0.1 0.1 0.1 -Total Square (Post) (cm) 9.00 9.45 8.12 -Area of Debridement (cm) - Length 1.5 1.5 1.4 -Area of Debridement (cm) - Width 6.0 6.3 5.8 -Total Square (Area) (cm) 9.00 9.45 8.12 -Tunneling No No No -Undermining/Tunneling No No No -Circular Undermining No No No -Wound/Ulcer Outcome Not Healed Not Healed Not Healed -Ulcer Cleansing Rinsed/ Rinsed/ Rinsed/ Irrigated with Irrigated with Irrigated with Saline Saline Saline -Foul Odor after Cleansing No No No -Bioengineered Tissue No No No -Bleeding Controlled with Pressure, Pressure Pressure SURGIFOAM -Offloading No No No -Treatment Response Procedure Procedure Procedure Tolerated Well Tolerated Well Tolerated Well -Debridement - Subq, 1st 20sq cm Yes Yes Yes Pain Scale: 0-10 Numeric Is Patient Pain Free? Yes Yes Yes WC - Nurse 3 - General Ulcer D/C NN Start: 07/21/20 15:43 Freq: Status: Active Protocol: Activity Type Activity Date Activity User E-Sign Co-Sign Detail Recorded Client Recorded Date Recorded By Document 07/21/20 15:55 MW [id number] 07/21/20 15:56 MW Document 07/28/20 15:51 MW [id number] 07/28/20 15:52 MW Document 08/04/20 15:59 MS [id number] 08/04/20 16:01 MS 07/21/20 07/28/20 08/04/20 15:55 15:51 15:59 Wound Care Nurse 3 #1- LEFT GROIN- POST OP -Ulcer Cleansing Rinsed/ Rinsed/ Rinsed/ Irrigated with Irrigated with Irrigated with Saline Saline Saline -Foul Odor after Cleansing No No No -Negative Pressure Wound Therapy N/A N/A -Primary Dressing Applied Aquacel AG 4x4, Aquacel Extra Aquacel Extra Fibracol Plus 4x4 -Other Dressing xeroform xeroform -Primary Dressing Covered/Secured with Dry Gauze, Dry Gauze, Dry Gauze, Secured with Secured with Secured with Tape Tape Tape -Aquacel Extra 1 1 -Aquacel AG 4x4 1 -Fibracol Plus 4x4 1 Treatment Response Procedure Procedure Tolerated Well Tolerated Well Pain Scale: 0-10 Numeric Is Patient Pain Free? Yes Yes Teaching: Wound Center Dressing Your Wound -Person Taught Patient Patient -Teaching Method Discussion, Discussion Demonstration -Response to teaching Verbalize Verbalize understanding understanding WC - Visit Discharge Discharge Condition Stable Stable Stable Ambulatory Status Ambulatory Ambulatory Ambulatory Transportation Private Auto Private Auto Accompanied by BROTHER brother Medication Reconcilliation completed & No No No provided to patient/care provider Clinical Summary of Care Provided Yes Yes Yes Wound debrided: Groin ulceration Laterality: Left Type of Debridement: Excisional debridement Anesthesia Used: 5% Lidocaine Gel Depth: in the subcutaneous layer Percentage of wound debrided: 100 Instrument Used: 5mm curette Tissue Removed: Slough and devitalized tissue Severity: Fat Layer Exposed Amount of bleeding with debridement: Mild Bleeding Controlled with: Pressure Patient tolerated procedure well Assessment/Plan Active Problems Intertrigo (Chronic) abdominal wall skin crease intertrigo Abdominal panniculus (Chronic) History of necrotising fasciitis (Chronic) Lymphedema of both lower extremities (Acute) Type 2 diabetes mellitus (Chronic) Non-healing surgical wound of left groin (Chronic) x 3 Assessment: Nonhealing postsurgical wound left groin status post surgical excision of necrotizing fasciitis. Morbid obesity. Type 2 diabetes mellitus Plan: Debridement done as documented above. Procedure was well-tolerated. Dressing changes will consist of Aquacel extra and Xeroform Alternating, apply twice daily cover with gauze for excess drainage. Optimal diabetes control again discussed. Continue increased protein intake. His questions were answered and he was advised to call with any further questions or concerns. Follow-up in 1 week at wound healing center. Surgery still on hold, will have reevaluation in 3 weeks.. This note was generated with [employer] software. It may contain incorrect words, spelling, and punctuation that were not noted in checking the note before signing. [id number]: [id number] Jessica subq tissue 20 sq cm/<
[2020-08-11 15:13] VITALS: BP 138/99; PULSE 77; RESP 16; TEMP 35.6
--- NOTE | 2020-08-12 11:25 | PCM.WC.PN ---
(1) Lymphedema of both lower extremities Status: Acute Code(s): I89.0 - Lymphedema, not elsewhere classified (2) Abdominal panniculus Status: Chronic Code(s): E65 - Localized adiposity (3) History of necrotising fasciitis Status: Chronic Code(s): Z87.39 - Personal history of other diseases of the musculoskeletal system and connective tissue (4) Intertrigo Status: Chronic Code(s): L30.4 - Erythema intertrigo Comment: abdominal wall skin crease intertrigo (5) Non-healing surgical wound of left groin Status: Chronic Qualifiers: Code(s): T81.89XA - Other complications of procedures, not elsewhere classified, initial encounter Comment: x 3 (6) Type 2 diabetes mellitus Status: Chronic Qualifiers: Code(s): E11.9 - Type 2 diabetes mellitus without complications Type of Wound Date of Service: 08/11/20 Chief Complaint: Nonhealing wound status post surgical excision of necrotizing fasciitis left groin History of Wound: 46-year-old white male who presents to the wound healing center today with complaint of left groin ulceration status post surgical excision of necrotizing fasciitis. He is a past medical history which is significant for that of type 2 diabetes mellitus, gout, diabetic neuropathy, schizophrenia, bilateral lymphedema, and schizophrenia. The patient states that what initially started as a pimple in his left groin progressed to necrotizing fasciitis and he had to have this surgically debrided in April 2017. He was admitted to [facility] for 2 weeks and then [facility] for 6 weeks afterwards. He states that the groin ulcer which extends to his left lower abdomen has been slowly improving and he has been doing daily Aquacel AG dressings with an ABD for the drainage. He does state that he has had 3 wound vacs in the past which were unable to be utilized due to the location of his wound. He denies any foul-smelling discharge or systemic signs of infection at this time. The patient otherwise denies any fever, chills, nausea, vomiting, shortness of breath, chest pain or pressure, palpitations, orthopnea, syncope or presyncopal episodes. Progress of Wound: Left groin ulcer stable, patient reports improved blood sugar readings, A1c was recently 5.8 which is drastically improved. No new concerns at this time. - Physical Exam Vital Signs Temp Pulse Resp BP 96.0 F L 77 16 138/99 H 08/11/20 15:13 08/11/20 15:13 08/11/20 15:13 08/11/20 15:13 General: Alert, Oriented x3, Cooperative, No apparent distress HEENT: Atraumatic Oral: Moist Mucosa Neck: Supple Lungs: Clear to auscultation, Normal air movement Cardiovascular: Regular rate Abdomen: Soft Extremities: No clubbing, No cyanosis, No edema Skin: Ulcer/ Wound - See nursing documentation, slough and devitalized tissue present, no signs of obvious infection at this time Wound Measurements and Assessment WC - Nurse 1 - General Ulcer Measurement Start: 07/21/20 15:43 Freq: Status: Active Protocol: Activity Type Activity Date Activity User E-Sign Co-Sign Detail Recorded Client Recorded Date Recorded By Document 08/11/20 15:13 MS [id number] 08/11/20 15:17 MS 08/11/20 15:13 Wound Center Nurse 1 [Ulcer Assessment] #1- LEFT GROIN- POST OP -Current Size (cm) - Length 1.5 -Current Size (cm) - Width 5 -Current Size (cm) - Depth 0.1 -Total Square Cm 7.5 -Exudate Amt Medium -Exudate Type Serosanguineous -Wound Margin Distinct, Outline Attached -Granulation Amt Medium (34-66%) -Granulation Quality Red -Slough/Fibrin Yes -Necrosis Amt Medium (34-66%) -Necrotic Tissue Type Adherent Slough -Texture (Inessa-wound Skin Appearance) No Abnormality -Moisture (Inessa-wound Skin Appearance Maceration ) -Color (Inessa-wound Skin Appearance) No Abnormality -Temperature (Inessa-wound Skin Hot Appearance) -Ulcer Cleansing Rinsed/ Irrigated with Saline -Foul Odor after Cleansing No -Anesthetic Used 4% Lidocaine Solution WC - Nurse 2 - General Ulcer CM Notes Start: 07/21/20 15:43 Freq: Status: Active Protocol: Activity Type Activity Date Activity User E-Sign Co-Sign Detail Recorded Client Recorded Date Recorded By Document 08/11/20 15:30 MW [id number] 08/11/20 15:32 MW 08/11/20 15:30 Wound Center Nurse 2 [Procedure/Treatment] -Time 15:30 -Correct Patient Yes -Correct Side, Site, Position Yes -Correct Procedure Yes -Procedure Performed Yes -Type of Procedure Debridement -Clinical Debridement Subcutaneous -Tissue Removed Subcutaneous -Post Debridement (cm) - Length 1.6 -Post Debridement (cm) - Width 5.0 -Post Debridement (cm) - Depth 0.1 -Total Square (Post) (cm) 8.00 -Area of Debridement (cm) - Length 1.6 -Area of Debridement (cm) - Width 1.5 -Total Square (Area) (cm) 2.40 -Tunneling No -Undermining/Tunneling No -Circular Undermining No -Wound/Ulcer Outcome Not Healed -Ulcer Cleansing Rinsed/ Irrigated with Saline -Foul Odor after Cleansing No -Bioengineered Tissue No -Bleeding Controlled with Pressure -Offloading No -Treatment Response Procedure Tolerated Well -Debridement - Subq, 1st 20sq cm Yes [See Physician Procedure note for Specifics] Pain Scale: 0-10 Numeric [Pain] -Is Patient Pain Free? Yes WC - Nurse 3 - General Ulcer D/C NN Start: 07/21/20 15:43 Freq: Status: Active Protocol: Activity Type Activity Date Activity User E-Sign Co-Sign Detail Recorded Client Recorded Date Recorded By Document 08/11/20 15:32 MW [id number] 08/11/20 15:33 MW 08/11/20 15:32 Wound Care Nurse 3 [Wound Dressing] #1- LEFT GROIN- POST OP -Ulcer Cleansing Rinsed/ Irrigated with Saline -Foul Odor after Cleansing No -Negative Pressure Wound Therapy N/A -Primary Dressing Applied Aquacel Extra -Other Dressing xerofrom -Primary Dressing Covered/Secured Dry Gauze, with Secured with Tape -Aquacel Extra 1 [Post Procedure Tolerated] -Treatment Response Procedure Tolerated Well Pain Scale: 0-10 Numeric [Pain] -Is Patient Pain Free? Yes Teaching: Wound Center [Wound Center Education] (Items with an * have Printed Materials Available- Please identify what is given to patient under the Teaching materials given to patient and caregiver Section. Dressing Your Wound -Person Taught Patient -Teaching Method Discussion -Response to teaching Verbalize understanding WC - Visit Discharge [Visit Discharge Information] -Discharge Condition Stable -Ambulatory Status Ambulatory -Transportation Private Auto -Accompanied by brother -Medication Reconcilliation completed No & provided to patient/care provider -Clinical Summary of Care Provided Yes Neurological: Neuro grossly intact Psych/Mental Status: Normal Affect, Appropriate, Alert and oriented to time, place, person, mood and affect Debridement Note Post-Debridement Measurements/Treatment WC - Nurse 2 - General Ulcer CM Notes Start: 07/21/20 15:43 Freq: Status: Active Protocol: Activity Type Activity Date Activity User E-Sign Co-Sign Detail Recorded Client Recorded Date Recorded By Document 07/21/20 15:54 MW [id number] 07/21/20 15:55 MW Document 07/28/20 15:47 MW [id number] 07/28/20 15:50 MW Document 08/04/20 15:50 MW [id number] 08/04/20 16:31 MW Document 08/11/20 15:30 MW [id number] 08/11/20 15:32 MW 07/21/20 07/28/20 08/04/20 15:54 15:47 15:50 Wound Center Nurse 2 #1- LEFT GROIN- POST OP -Time 15:54 15:47 15:50 -Correct Patient Yes Yes Yes -Correct Side, Site, Position Yes Yes Yes -Correct Procedure Yes Yes Yes -Procedure Performed Yes Yes Yes -Type of Procedure Debridement Debridement Debridement -Clinical Debridement Subcutaneous Subcutaneous Subcutaneous -Tissue Removed Subcutaneous Subcutaneous Subcutaneous -Post Debridement (cm) - Length 1.5 1.5 1.4 -Post Debridement (cm) - Width 6.0 6.3 5.8 -Post Debridement (cm) - Depth 0.1 0.1 0.1 -Total Square (Post) (cm) 9.00 9.45 8.12 -Area of Debridement (cm) - Length 1.5 1.5 1.4 -Area of Debridement (cm) - Width 6.0 6.3 5.8 -Total Square (Area) (cm) 9.00 9.45 8.12 -Tunneling No No No -Undermining/Tunneling No No No -Circular Undermining No No No -Wound/Ulcer Outcome Not Healed Not Healed Not Healed -Ulcer Cleansing Rinsed/ Rinsed/ Rinsed/ Irrigated with Irrigated with Irrigated with Saline Saline Saline -Foul Odor after Cleansing No No No -Bioengineered Tissue No No No -Bleeding Controlled with Pressure, Pressure Pressure SURGIFOAM -Offloading No No No -Treatment Response Procedure Procedure Procedure Tolerated Well Tolerated Well Tolerated Well -Debridement - Subq, 1st 20sq cm Yes Yes Yes Pain Scale: 0-10 Numeric Is Patient Pain Free? Yes Yes Yes 08/11/20 15:30 Wound Center Nurse 2 #1- LEFT GROIN- POST OP -Time 15:30 -Correct Patient Yes -Correct Side, Site, Position Yes -Correct Procedure Yes -Procedure Performed Yes -Type of Procedure Debridement -Clinical Debridement Subcutaneous -Tissue Removed Subcutaneous -Post Debridement (cm) - Length 1.6 -Post Debridement (cm) - Width 5.0 -Post Debridement (cm) - Depth 0.1 -Total Square (Post) (cm) 8.00 -Area of Debridement (cm) - Length 1.6 -Area of Debridement (cm) - Width 1.5 -Total Square (Area) (cm) 2.40 -Tunneling No -Undermining/Tunneling No -Circular Undermining No -Wound/Ulcer Outcome Not Healed -Ulcer Cleansing Rinsed/ Irrigated with Saline -Foul Odor after Cleansing No -Bioengineered Tissue No -Bleeding Controlled with Pressure -Offloading No -Treatment Response Procedure Tolerated Well -Debridement - Subq, 1st 20sq cm Yes Pain Scale: 0-10 Numeric Is Patient Pain Free? Yes - Nurse 3 - General Ulcer D/C NN Start: 07/21/20 15:43 Freq: Status: Active Protocol: Activity Type Activity Date Activity User E-Sign Co-Sign Detail Recorded Client Recorded Date Recorded By Document 07/21/20 15:55 MW [id number] 07/21/20 15:56 MW Document 07/28/20 15:51 MW [id number] 07/28/20 15:52 MW Document 08/04/20 15:59 MS [id number] 08/04/20 16:01 MS Document 08/11/20 15:32 MW [id number] 08/11/20 15:33 MW 07/21/20 07/28/20 08/04/20 15:55 15:51 15:59 Wound Care Nurse 3 #1- LEFT GROIN- POST OP -Ulcer Cleansing Rinsed/ Rinsed/ Rinsed/ Irrigated with Irrigated with Irrigated with Saline Saline Saline -Foul Odor after Cleansing No No No -Negative Pressure Wound Therapy N/A N/A -Primary Dressing Applied Aquacel AG 4x4, Aquacel Extra Aquacel Extra Fibracol Plus 4x4 -Other Dressing xeroform xeroform -Primary Dressing Covered/Secured with Dry Gauze, Dry Gauze, Dry Gauze, Secured with Secured with Secured with Tape Tape Tape -Aquacel Extra 1 1 -Aquacel AG 4x4 1 -Fibracol Plus 4x4 1 Treatment Response Procedure Procedure Tolerated Well Tolerated Well Pain Scale: 0-10 Numeric Is Patient Pain Free? Yes Yes Teaching: Wound Center Dressing Your Wound -Person Taught Patient Patient -Teaching Method Discussion, Discussion Demonstration -Response to teaching Verbalize Verbalize understanding understanding WC - Visit Discharge Discharge Condition Stable Stable Stable Ambulatory Status Ambulatory Ambulatory Ambulatory Transportation Private Auto Private Auto Accompanied by BROTHER brother Medication Reconcilliation completed & No No No provided to patient/care provider Clinical Summary of Care Provided Yes Yes Yes 08/11/20 15:32 Wound Care Nurse 3 #1- LEFT GROIN- POST OP -Ulcer Cleansing Rinsed/ Irrigated with Saline -Foul Odor after Cleansing No -Negative Pressure Wound Therapy N/A -Primary Dressing Applied Aquacel Extra -Other Dressing xerofrom -Primary Dressing Covered/Secured with Dry Gauze, Secured with Tape -Aquacel Extra 1 -Aquacel AG 4x4 -Fibracol Plus 4x4 Treatment Response Procedure Tolerated Well Pain Scale: 0-10 Numeric Is Patient Pain Free? Yes Teaching: Wound Center Dressing Your Wound -Person Taught Patient -Teaching Method Discussion -Response to teaching Verbalize understanding WC - Visit Discharge Discharge Condition Stable Ambulatory Status Ambulatory Transportation Private Auto Accompanied by brother Medication Reconcilliation completed & No provided to patient/care provider Clinical Summary of Care Provided Yes Wound debrided: Left groin ulcer Type of Debridement: Excisional debridement Anesthesia Used: 5% Lidocaine Gel Depth: in the subcutaneous layer Percentage of wound debrided: 100 Instrument Used: 5mm curette Tissue Removed: Slough and devitalized tissue Severity: Fat Layer Exposed Amount of bleeding with debridement: Mild Bleeding Controlled with: Pressure Patient tolerated procedure well Assessment/Plan Active Problems Intertrigo (Chronic) abdominal wall skin crease intertrigo Abdominal panniculus (Chronic) History of necrotising fasciitis (Chronic) Lymphedema of both lower extremities (Acute) Type 2 diabetes mellitus (Chronic) Non-healing surgical wound of left groin (Chronic) x 3 Assessment: Nonhealing postsurgical wound left groin status post surgical excision of necrotizing fasciitis. Morbid obesity. Type 2 diabetes mellitus Plan: Debridement done as documented above. Procedure was well-tolerated. Dressing changes will consist of Aquacel extra and Xeroform Alternating, apply twice daily cover with gauze for excess drainage. Optimal diabetes control again discussed. Continue increased protein intake. His questions were answered and he was advised to call with any further questions or concerns. Follow-up in 1 week at wound healing center. Surgery still on hold, will have reevaluation in 3 weeks.. This note was generated with [employer] software. It may contain incorrect words, spelling, and punctuation that were not noted in checking the note before signing. [id number]: [id number] Jessica subq tissue 20 sq cm/<
[2020-08-18 15:10] VITALS: BP 151/67; PULSE 76; RESP 22; TEMP 35.9
--- NOTE | 2020-08-19 15:11 | PCM.WC.PN ---
History of Present Illness Date of Service: 08/18/20 Chief Complaint: Nonhealing wound status post surgical excision of necrotizing fasciitis left groin History of Wound: 46-year-old white male who presents to the wound healing center today with complaint of left groin ulceration status post surgical excision of necrotizing fasciitis. He is a past medical history which is significant for that of type 2 diabetes mellitus, gout, diabetic neuropathy, schizophrenia, bilateral lymphedema, and schizophrenia. The patient states that what initially started as a pimple in his left groin progressed to necrotizing fasciitis and he had to have this surgically debrided in April 2017. He was admitted to [facility] for 2 weeks and then [facility] for 6 weeks afterwards. He states that the groin ulcer which extends to his left lower abdomen has been slowly improving and he has been doing daily Aquacel AG dressings with an ABD for the drainage. He does state that he has had 3 wound vacs in the past which were unable to be utilized due to the location of his wound. He denies any foul-smelling discharge or systemic signs of infection at this time. The patient otherwise denies any fever, chills, nausea, vomiting, shortness of breath, chest pain or pressure, palpitations, orthopnea, syncope or presyncopal episodes. Subjective Subjective: No new concerns at this time, patient doing well with dressing changes, pending plastic surgery consult Objective Data Objective Data Vital Signs: Vital Signs Temp Pulse Resp BP 96.6 F L 76 22 H 151/67 H 08/18/20 15:10 08/18/20 15:10 08/18/20 15:10 08/18/20 15:10 Oxygen Delivery Method Room Air Weight: 400 lb Assessment & Plan Assessment/Plan (1) Ulcer of left groin with fat layer exposed: Status: Chronic Code(s): L98.492 - Non-pressure chronic ulcer of skin of other sites with fat layer exposed (2) Abdominal panniculus: Status: Chronic Code(s): E65 - Localized adiposity (3) Intertrigo: Status: Chronic Code(s): L30.4 - Erythema intertrigo (4) History of necrotising fasciitis: Status: Chronic Code(s): Z87.39 - Personal history of other diseases of the musculoskeletal system and connective tissue (5) Type 2 diabetes mellitus: Status: Chronic Code(s): E11.9 - Type 2 diabetes mellitus without complications Qualifiers: Qualified Code(s): L98.499 - Non-pressure chronic ulcer of skin of other sites with unspecified severity (6) Morbid obesity: Status: Chronic Code(s): E66.01 - Morbid (severe) obesity due to excess calories Plan: Debridement done as documented above, procedure was well-tolerated. Dressing changes will consist of Aquacel extra and Xeroform alternating, apply twice daily cover with gauze for excess drainage. Optimal diabetes control again was discussed continue increase protein intake. His questions were answered and he was advised to call with any further questions or concerns. Follow-up in 1 week at the wound healing center or sooner if needed. Surgery still on hold, will have reevaluation in the near future. Noemijosemanuel disclaimer Charges/Coding Procedures Integumentary 111xxx-113xx: [id number] Jessica subq tissue 20 sq cm/< Physical Exam Const alert, oriented x3, no apparent distress, healthy appearing and well nourished General Appearance: cooperative Exam Limitations: no limitations HEENT normocephalic Head and Scalp: normal to inspection Mouth: oral and palatal mucosa normal Eyes General Eye: normal appearance of both eyes Resp normal respiratory effort, normal air movement and no use of accessory muscles Effort and Inspection: able to speak in complete sentences Auscultation: clear to auscultation bilaterally Cardio regular rate, regular rhythm, S1 normal heart sound, S2 normal heart sound, no murmurs and peripheral pulses 2+ throughout Palpation: normal PMI Rate: regular rate Heart Sounds: S1 normal and S2 normal GI normal to inspection, nondistended, normoactive bowel sounds, soft to palpation, non-tender and non-distended Palpation: soft Extremity normal to inspection and full ROM General Extremity: normal exam except as noted Skin Wound Narrative: See nursing documentation, slough and devitalized tissue present, no signs of obvious infection at this time Neuro oriented x3 and moves all extremities Sensorium / Orientation: awake, alert, oriented to person, oriented to place and oriented to time Psych mental status grossly normal, thought process normal and denies hallucinations Appearance: grossly normal Attitude: calm Activity / Motor Behavior: appropriate eye contact Speech: normal speech Thought Process: normal thought process Thought Content: normal thought content Attention / Concentration: attention grossly intact Insight: insight good Judgement: judgement good Debridement Note Debridement Note Post-Debridement Measurements and Additional Note: Post-Debridement Measurements/Treatment WC - Nurse 2 - General Ulcer CM Notes Start: 07/21/20 15:43 Freq: Status: Active Protocol: Activity Type Activity Date Activity User E-Sign Co-Sign Detail Recorded Client Recorded Date Recorded By Document 07/21/20 15:54 MW [id number] 07/21/20 15:55 MW Document 07/28/20 15:47 MW [id number] 07/28/20 15:50 MW Document 08/04/20 15:50 MW [id number] 08/04/20 16:31 MW Document 08/11/20 15:30 MW [id number] 08/11/20 15:32 MW Document 08/18/20 15:41 MW [id number] 08/18/20 15:44 MW 07/21/20 07/28/20 08/04/20 15:54 15:47 15:50 Wound Center Nurse 2 #1- LEFT GROIN- POST OP -Time 15:54 15:47 15:50 -Correct Patient Yes Yes Yes -Correct Side, Site, Position Yes Yes Yes -Correct Procedure Yes Yes Yes -Procedure Performed Yes Yes Yes -Type of Procedure Debridement Debridement Debridement -Clinical Debridement Subcutaneous Subcutaneous Subcutaneous -Tissue Removed Subcutaneous Subcutaneous Subcutaneous -Post Debridement (cm) - Length 1.5 1.5 1.4 -Post Debridement (cm) - Width 6.0 6.3 5.8 -Post Debridement (cm) - Depth 0.1 0.1 0.1 -Total Square (Post) (cm) 9.00 9.45 8.12 -Area of Debridement (cm) - Length 1.5 1.5 1.4 -Area of Debridement (cm) - Width 6.0 6.3 5.8 -Total Square (Area) (cm) 9.00 9.45 8.12 -Tunneling No No No -Undermining/Tunneling No No No -Circular Undermining No No No -Wound/Ulcer Outcome Not Healed Not Healed Not Healed -Ulcer Cleansing Rinsed/ Rinsed/ Rinsed/ Irrigated with Irrigated with Irrigated with Saline Saline Saline -Foul Odor after Cleansing No No No -Bioengineered Tissue No No No -Bleeding Controlled with Pressure, Pressure Pressure SURGIFOAM -Offloading No No No -Treatment Response Procedure Procedure Procedure Tolerated Well Tolerated Well Tolerated Well -Debridement - Subq, 1st 20sq cm Yes Yes Yes Pain Scale: 0-10 Numeric Is Patient Pain Free? Yes Yes Yes 08/11/20 08/18/20 15:30 15:41 Wound Center Nurse 2 #1- LEFT GROIN- POST OP -Time 15:30 15:41 -Correct Patient Yes Yes -Correct Side, Site, Position Yes Yes -Correct Procedure Yes Yes -Procedure Performed Yes Yes -Type of Procedure Debridement Debridement -Clinical Debridement Subcutaneous Subcutaneous -Tissue Removed Subcutaneous Subcutaneous -Post Debridement (cm) - Length 1.6 1.4 -Post Debridement (cm) - Width 5.0 5.5 -Post Debridement (cm) - Depth 0.1 0.1 -Total Square (Post) (cm) 8.00 7.70 -Area of Debridement (cm) - Length 1.6 1.4 -Area of Debridement (cm) - Width 1.5 5.5 -Total Square (Area) (cm) 2.40 7.70 -Tunneling No No -Undermining/Tunneling No No -Circular Undermining No No -Wound/Ulcer Outcome Not Healed Not Healed -Ulcer Cleansing Rinsed/ Rinsed/ Irrigated with Irrigated with Saline Saline -Foul Odor after Cleansing No No -Bioengineered Tissue No No -Bleeding Controlled with Pressure Pressure -Offloading No No -Treatment Response Procedure Procedure Tolerated Well Tolerated Well -Debridement - Subq, 1st 20sq cm Yes Yes Pain Scale: 0-10 Numeric Is Patient Pain Free? Yes Yes WC - Nurse 3 - General Ulcer D/C NN Start: 07/21/20 15:43 Freq: Status: Active Protocol: Activity Type Activity Date Activity User E-Sign Co-Sign Detail Recorded Client Recorded Date Recorded By Document 07/21/20 15:55 MW [id number] 07/21/20 15:56 MW Document 07/28/20 15:51 MW [id number] 07/28/20 15:52 MW Document 08/04/20 15:59 MS [id number] 08/04/20 16:01 MS Document 08/11/20 15:32 MW [id number] 08/11/20 15:33 MW Document 08/18/20 15:49 MW [id number] 08/18/20 15:50 MW 07/21/20 07/28/20 08/04/20 15:55 15:51 15:59 Wound Care Nurse 3 #1- LEFT GROIN- POST OP -Ulcer Cleansing Rinsed/ Rinsed/ Rinsed/ Irrigated with Irrigated with Irrigated with Saline Saline Saline -Foul Odor after Cleansing No No No -Negative Pressure Wound Therapy N/A N/A -Primary Dressing Applied Aquacel AG 4x4, Aquacel Extra Aquacel Extra Fibracol Plus 4x4 -Other Dressing xeroform xeroform -Primary Dressing Covered/Secured with Dry Gauze, Dry Gauze, Dry Gauze, Secured with Secured with Secured with Tape Tape Tape -Aquacel Extra 1 1 -Aquacel AG 4x4 1 -Fibracol Plus 4x4 1 Treatment Response Procedure Procedure Tolerated Well Tolerated Well Pain Scale: 0-10 Numeric Is Patient Pain Free? Yes Yes Teaching: Wound Center Dressing Your Wound -Person Taught Patient Patient -Teaching Method Discussion, Discussion Demonstration -Response to teaching Verbalize Verbalize understanding understanding WC - Visit Discharge Discharge Condition Stable Stable Stable Ambulatory Status Ambulatory Ambulatory Ambulatory Transportation Private PT PAL Auto Accompanied by BROTHER brother Medication Reconcilliation completed & No No No provided to patient/care provider Clinical Summary of Care Provided Yes Yes Yes 08/11/20 08/18/20 15:32 15:49 Wound Care Nurse 3 #1- LEFT GROIN- POST OP -Ulcer Cleansing Rinsed/ Rinsed/ Irrigated with Irrigated with Saline Saline -Foul Odor after Cleansing No No -Negative Pressure Wound Therapy N/A N/A -Primary Dressing Applied Aquacel Extra Aquacel Extra -Other Dressing xerofrom XEROFORM -Primary Dressing Covered/Secured with Dry Gauze, Dry Gauze, Secured with Secured with Tape Tape -Aquacel Extra 1 1 -Aquacel AG 4x4 -Fibracol Plus 4x4 Treatment Response Procedure Procedure Tolerated Well Tolerated Well Pain Scale: 0-10 Numeric Is Patient Pain Free? Yes Yes Teaching: Wound Center Dressing Your Wound -Person Taught Patient Patient -Teaching Method Discussion Discussion, Demonstration -Response to teaching Verbalize Verbalize understanding understanding WC - Visit Discharge Discharge Condition Stable Stable Ambulatory Status Ambulatory Ambulatory Transportation Private [employer] Private Auto Accompanied by brother BROTHER Medication Reconcilliation completed & No No provided to patient/care provider Clinical Summary of Care Provided Yes Yes Wound debrided: Left groin ulcer Laterality: Left Type of Debridement: Excisional debridement Anesthesia Used: 5% Lidocaine Gel Depth: Down to and including healthy tissue and in the subcutaneous layer Percentage of wound debrided: 100 Instrument Used: 5mm curette Tissue Removed: Slough and devitalized tissue Severity: Fat Layer Exposed Amount of bleeding with debridement: Mild Bleeding Controlled with: Pressure and Compression and gauze Patient tolerated procedure: Patient tolerated procedure well
== END 2020-08-19 23:59 ==
LOC: WC 15:15
PROVIDERS: Family Provider Family Medicine; PCP Family Medicine; Referring Provider Nurse Practitioner Family; Visit Provider Nurse Practitioner Family
DX: T81.89XA Other complications of procedures, not elsewhere classified, initial encounter (principal); L98.492 Non-pressure chronic ulcer of skin of other sites with fat layer exposed; E11.22 Type 2 diabetes mellitus with diabetic chronic kidney disease; E11.40 Type 2 diabetes mellitus with diabetic neuropathy, unspecified; I89.0 Lymphedema, not elsewhere classified; L30.4 Erythema intertrigo; E65 Localized adiposity; F20.9 Schizophrenia, unspecified; E66.01 Morbid (severe) obesity due to excess calories; Y83.8 Other surgical procedures as the cause of abnormal reaction of the patient, or of later complication, without mention of misadventure at the time of the procedure; Y92.9 Unspecified place or not applicable; Z79.4 Long term (current) use of insulin; Z79.899 Other long term (current) drug therapy; Z87.39 Personal history of other diseases of the musculoskeletal system and connective tissue
CPT/HCPCS: 11042

== ENCOUNTER 2020-09-13 14:30 | Outpatient (RCR) | payer MEDICARE, MEDICAID, SELFPAY ==
[2020-08-20 00:29] VITALS: BP 151/67; PULSE 76; RESP 22; TEMP 35.9
[2020-08-30 15:26] VITALS: BP 133/71; PULSE 77; TEMP 36.2
--- NOTE | 2020-08-30 16:21 | PN.PCM_ITS ---
History of Present Illness Date of Service: 08/30/20 Chief Complaint: Nonhealing wound status post surgical excision of necrotizing fasciitis left groin History of Wound: 46-year-old white male who presents to the wound healing center today with complaint of left groin ulceration status post surgical excision of necrotizing fasciitis. He is a past medical history which is significant for that of type 2 diabetes mellitus, gout, diabetic neuropathy, schizophrenia, bilateral lymphedema, and schizophrenia. The patient states that what initially started as a pimple in his left groin progressed to necrotizing fasciitis and he had to have this surgically debrided in April 2017. [facility] and then [facility] for 6 weeks afterwards. He states that the groin ulcer which extends to his left lower abdomen has been slowly improving and he has been doing daily Aquacel AG dressings with an ABD for the drainage. He does state that he has had 3 wound vacs in the past which were unable to be utilized due to the location of his wound. He denies any foul-smelling discharge or systemic signs of infection at this time. The patient otherwise denies any fever, chills, nausea, vomiting, shortness of breath, chest pain or pressure, palpitations, orthopnea, syncope or presyncopal episodes. Progress of Wound: Left groin ulcer is pink. The surrounding skin is macerated. Objective Data Objective Data Vital Signs: Vital Signs Temp Pulse Resp BP 97.1 F L 77 22 H 133/71 H 08/30/20 15:26 08/30/20 15:26 08/20/20 00:29 08/30/20 15:26 Weight: 400 lb Assessment & Plan Assessment/Plan (1) Ulcer of left groin with fat layer exposed: (2) Intertrigo: (3) Abdominal panniculus: (4) History of necrotising fasciitis: PLAN: Debridement done as documented above, procedure was well-tolerated.? Wound care will consist of Fibrocal plus covered by gauze daily and as needed. Optimal diabetes control again was discussed continue increase protein intake.? His questions were answered and he was advised to call with any further questions or concerns.? Follow-up in 2 weeks at the wound healing center or sooner if needed.? Surgery still on hold, will have reevaluation in the near future. Charges/Coding Procedures Integumentary 111xxx-113xx: [id number] Fna bx w/fluor gdn 1st les Physical Exam Const alert and oriented x3 HEENT normocephalic Head and Scalp: atraumatic Eyes PERRL Resp normal respiratory effort Cardio regular rate GI non-tender Palpation: soft Extremity normal capillary refill Skin Wound Narrative: Left groin ulcer is beefy pink. The surrounding skin is macerated from moisture/drainage. 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 Any new allergies or adverse reactions No Had a fall/change in ADL's that may No increase risk of falls Signs or symptoms of abuse and/or No neglect since last visit Have you been in the hospital since your No last visit? Has dressing in place as prescribed Yes Has compression in place as prescribed N/A Has offloadiing in place as prescribed N/A Experienced any changes in pain level or No management Left Footwear Regular Shoe Right Footwear Regular Shoe Pain Scale: 0-10 Numeric Is Patient Pain Free? Yes - Nurse 1 - General Ulcer Measurement Start: 08/30/20 15:24 Freq: Status: Active Protocol: Activity Type Activity Date Activity User E-Sign Co-Sign Detail Recorded Client Recorded Date Recorded By Document 08/30/20 15:26 SILAS [id number] 08/30/20 15:27 KR 08/30/20 15:26 Wound Center Nurse 1 #1- LEFT GROIN- POST OP -Current Size (cm) - Length 1.5 -Current Size (cm) - Width 5.4 -Current Size (cm) - Depth 0.2 -Total Square Cm 8.10 -Exudate Amt Small -Exudate Type Serosanguineous -Wound Margin Distinct, Outline Attached -Granulation Amt Large (67-100%) -Granulation Quality [place],Red -Necrosis Amt None Present (0 %) -Texture (Inessa-wound Skin Appearance) Assessed, Scarring -Moisture (Inessa-wound Skin Appearance) No Abnormality, Assessed -Color (Inessa-wound Skin Appearance) No Abnormality, Assessed -Temperature (Inessa-wound Skin No Abnormality Appearance) (Pt Warm) -Tenderness on Palpation (Inessa-wound No Skin Appearance) -Ulcer Cleansing Rinsed/ Irrigated with Saline -Foul Odor after Cleansing No -Anesthetic Used 4% Lidocaine Solution WC - Nurse 2 - General Ulcer CM Notes Start: 08/30/20 15:24 Freq: Status: Active Protocol: Activity Type Activity Date Activity User E-Sign Co-Sign Detail Recorded Client Recorded Date Recorded By Document 08/30/20 16:08 CRESENCIO [id number] 08/30/20 16:15 CRESENCIO 08/30/20 16:08 Wound Center Nurse 2 -Time 16:11 -Correct Patient Yes -Correct Side, Site, Position Yes -Correct Procedure Yes -Procedure Performed Yes -Type of Procedure Debridement -Clinical Debridement Subcutaneous -Tissue Removed Subcutaneous -Post Debridement (cm) - Length 1.5 -Post Debridement (cm) - Width 5.5 -Post Debridement (cm) - Depth 0.2 -Total Square (Post) (cm) 8.25 -Area of Debridement (cm) - Length 1.5 -Area of Debridement (cm) - Width 5.5 -Total Square (Area) (cm) 8.25 -Tunneling No -Undermining/Tunneling No -Circular Undermining No -Ulcer Cleansing Rinsed/ Irrigated with Saline -Foul Odor after Cleansing No -Bioengineered Tissue No -Bleeding Controlled with Pressure -Offloading No -Treatment Response Procedure Tolerated Well -Debridement - Subq, 1st 20sq cm Yes Pain Scale: 0-10 Numeric Is Patient Pain Free? Yes Wound debrided: Groin ulcer Laterality: Left Type of Debridement: Excisional debridement Anesthesia Used: 5% Lidocaine Gel Depth: Down to and including healthy tissue and in the subcutaneous layer Percentage of wound debrided: 100 Instrument Used: 5mm curette Tissue Removed: Subcutaneous tissue and slough Severity: Fat Layer Exposed Amount of bleeding with debridement: Mild Bleeding Controlled with: Pressure Patient tolerated procedure: Patient tolerated procedure well
[2020-09-13 14:41] VITALS: BP 115/56; PULSE 72; RESP 18; TEMP 37
--- NOTE | 2020-09-13 16:35 | PN.PCM_ITS ---
History of Present Illness Date of Service: 09/13/20 Chief Complaint: Nonhealing wound status post surgical excision of necrotizing fasciitis left groin History of Wound: 46-year-old white male who presents to the wound healing center today with complaint of left groin ulceration status post surgical excision of necrotizing fasciitis. He is a past medical history which is significant for that of type 2 diabetes mellitus, gout, diabetic neuropathy, schizophrenia, bilateral lymphedema, and schizophrenia. The patient states that what initially started as a pimple in his left groin progressed to necrotizing fasciitis and he had to have this surgically debrided in April 2017. He was admitted to [facility] for 2 weeks and then [facility] for 6 weeks afterwards. He states that the groin ulcer which extends to his left lower abdomen has been slowly improving and he has been doing daily Aquacel AG dressings with an ABD for the drainage. He does state that he has had 3 wound vacs in the past which were unable to be utilized due to the location of his wound. He denies any foul-smelling discharge or systemic signs of infection at this time. The patient otherwise denies any fever, chills, nausea, vomiting, shortness of breath, chest pain or pressure, palpitations, orthopnea, syncope or presyncopal episodes. Progress of Wound: Left groin ulcer is pink. He has two new open areas in his left groin. Most likely from skin rubbing against skin. Objective Data Objective Data Vital Signs: Vital Signs Temp Pulse Resp BP 98.6 F 72 18 115/56 L 09/13/20 14:41 09/13/20 14:41 09/13/20 14:41 09/13/20 14:41 Weight: 400 lb Charges/Coding Procedures Integumentary 111xxx-113xx: [id number] Jessica subq tissue 20 sq cm/< Physical Exam Const alert and oriented x3 General Appearance: cooperative HEENT normocephalic Head and Scalp: atraumatic Eyes PERRL Lymph Lymphatic: no lymphedema noted Resp normal respiratory effort Cardio regular rate GI non-tender GI Narrative: Obese abdomen Palpation: soft Extremity normal capillary refill Skin Wound Narrative: Left medial groin ulcer is pink. There are two additional new ulcers in the left groin lateral from the original ulcer. There is increased slough on the one and the other is pink. Appear to be caused from friction of skin on skin. Neuro CN's II-XII intact bilaterally Psych Thought Process: normal thought process Debridement Note Debridement Note Post-Debridement Measurements and Additional Note: Post-Debridement Noris surements/Treatment WC - Nurse 1 - General Ulcer Assessment Start: 08/30/20 15:24 Freq: Status: Active Protocol: FRANKY Activity Type Activity Date Activity User E-Sign Co-Sign Detail Recorded Client Recorded Date Recorded By Document 08/30/20 15:26 SILAS [id number] 08/30/20 15:27 KR Document 09/13/20 14:41 PL Desktop 09/13/20 14:47 PL 08/30/20 09/13/20 15:26 14:41 WC - Today's Visit Information Type of service Follow-up Visit Follow-up Visit (Physician/SALES REPRESENTATIVE MEATS (Physician/SALES REPRESENTATIVE MEATS ) ) Arrival Mode Ambulatory Ambulatory Transfer Assistance None Patient Identification Verified (Name & Yes Yes ) Patient Requires Transmission-Based No Precautions Safety Precautions NA Vital Signs Temperature (97.8 F-99.1 F) 97.1 F L 98.6 F Temperature Source Temporal Temporal Pulse Rate (60-100) 77 72 Pulse Location Monitor Respiratory Rate (12-18) 18 Blood Pressure (90/60-120/80) 133/71 H 115/56 L Blood Pressure Mean (mm Hg) 91 75 Source Monitor Position Semi-Fowlers Blood Pressure Location Right Arm History Since Last Visit- (Skip if this is Patient's initial visit) Have you changed medications since your No No last visit? Any new allergies or adverse reactions No No Had a fall/change in ADL's that may No No increase risk of falls Signs or symptoms of abuse and/or No No neglect since last visit Have you been in the hospital since your No No last visit? Has dressing in place as prescribed Yes Yes Has compression in place as prescribed N/A N/A Has offloadiing in place as prescribed N/A N/A Experienced any changes in pain level or No No management Left Footwear Regular Shoe Right Footwear Regular Shoe Pain Scale: 0-10 Numeric Is Patient Pain Free? Yes Yes RAMÓN - Nurse 1 - General Ulcer Measurement Start: 08/30/20 15:24 Freq: Status: Active Protocol: Activity Type Activity Date Activity User E-Sign Co-Sign Detail Recorded Client Recorded Date Recorded By Document 05/11/21 15:26 KR [id number] 08/30/20 15:27 KR Document 09/13/20 14:41 PL Desktop 09/13/20 14:47 PL 08/30/20 09/13/20 15:26 14:41 Wound Center Nurse 1 #1- LEFT GROIN- POST OP -Combined with other wound No -Current Size (cm) - Length 1.5 6.0 -Current Size (cm) - Width 5.4 1.0 -Current Size (cm) - Depth 0.2 0.1 -Total Square Cm 8.10 6.00 -Epithelialization None Present -Tunneling No -Undermining/Tunneling No -Circular Undermining No -Exudate Amt Small Large -Exudate Type Serosanguineous Serosanguineous -Wound Margin Distinct, Outline Attached -Granulation Amt Large (67-100%) Large (67-100%) -Granulation Quality [place],Red [place] -Slough/Fibrin Yes -Necrosis Amt None Present (0 Small (1-33%) %) -Necrotic Tissue Type Adherent Slough -Texture (Inessa-wound Skin Appearance) Assessed, Scarring -Moisture (Inessa-wound Skin Appearance) No Abnormality, Assessed -Color (Inessa-wound Skin Appearance) No Abnormality, Assessed -Temperature (Inessa-wound Skin No Abnormality Appearance) (Pt Warm) -Tenderness on Palpation (Inessa-wound No Skin Appearance) -Ulcer Cleansing Rinsed/ Rinsed/ Irrigated with Irrigated with Saline Saline -Foul Odor after Cleansing No No -Anesthetic Used 4% Lidocaine 4% Lidocaine Solution Solution WC - Nurse 2 - General Ulcer CM Notes Start: 08/30/20 15:24 Freq: Status: Active Protocol: Activity Type Activity Date Activity User E-Sign Co-Sign Detail Recorded Client Recorded Date Recorded By Document 08/30/20 16:08 [id number] 08/30/20 16:15 Document 09/13/20 15:07 [id number] 09/13/20 15:17 08/30/20 09/13/20 16:08 15:07 Wound Center Nurse 2 6-LEFT DISTAL ABDOMEN -Time 15:10 -Correct Patient Yes -Correct Side, Site, Position Yes -Correct Procedure Yes -Procedure Performed Yes -Type of Procedure Debridement -Clinical Debridement Subcutaneous -Tissue Removed Subcutaneous -Post Debridement (cm) - Length 0.6 -Post Debridement (cm) - Width 2 -Post Debridement (cm) - Depth 0.2 -Total Square (Post) (cm) 1.2 -Area of Debridement (cm) - Length 0.6 -Area of Debridement (cm) - Width 2 -Total Square (Area) (cm) 1.2 -Tunneling No -Undermining/Tunneling No -Circular Undermining No -Wound/Ulcer Outcome Not Healed -Ulcer Cleansing Wound Cleanser -Foul Odor after Cleansing No -Bioengineered Tissue No -Bleeding Controlled with Pressure -Offloading No -Treatment Response Procedure Tolerated Well -Debridement - Subq, 1st 20sq cm No #1- LEFT GROIN- POST OP -Time 16:11 15:08 -Correct Patient Yes Yes -Correct Side, Site, Position Yes Yes -Correct Procedure Yes Yes -Procedure Performed Yes Yes -Type of Procedure Debridement Debridement -Clinical Debridement Subcutaneous Subcutaneous -Tissue Removed Subcutaneous Subcutaneous -Post Debridement (cm) - Length 1.5 1 -Post Debridement (cm) - Width 5.5 11.2 -Post Debridement (cm) - Depth 0.2 0.3 -Total Square (Post) (cm) 8.25 11.2 -Area of Debridement (cm) - Length 1.5 1 -Area of Debridement (cm) - Width 5.5 11.2 -Total Square (Area) (cm) 8.25 11.2 -Tunneling No No -Undermining/Tunneling No No -Circular Undermining No No -Wound/Ulcer Outcome Not Healed -Ulcer Cleansing Rinsed/ Rinsed/ Irrigated with Irrigated with Saline Saline -Foul Odor after Cleansing No No -Bioengineered Tissue No No -Bleeding Controlled with Pressure Pressure -Offloading No No -Treatment Response Procedure Procedure Tolerated Well Tolerated Well -Debridement - Subq, 1st 20sq cm Yes Yes Pain Scale: 0-10 Numeric Is Patient Pain Free? Yes Yes WC - Nurse 3 - General Ulcer D/C NN Start: 08/30/20 15:24 Freq: Status: Active Protocol: Activity Type Activity Date Activity User E-Sign Co-Sign Detail Recorded Client Recorded Date Recorded By Document 08/30/20 16:20 DL [id number] 08/30/20 16:21 DL Document 09/13/20 15:26 [facility] Desktop 09/13/20 15:27 [facility] 08/30/20 09/13/20 16:20 15:26 Wound Care Nurse 3 6-LEFT DISTAL ABDOMEN -Ulcer Cleansing Rinsed/ Irrigated with Saline -Foul Odor after Cleansing No -Primary Dressing Applied Fibracol Plus 4x4 -Primary Dressing Covered/Secured with Dry Gauze, Secured with Tape -Fibracol Plus 4x4 1 #1- LEFT GROIN- POST OP -Ulcer Cleansing Rinsed/ Rinsed/ Irrigated with Irrigated with Saline Saline -Foul Odor after Cleansing No No -Primary Dressing Applied Fibracol Plus Other 4x4 -Other Dressing fibracol -Primary Dressing Covered/Secured with Dry Gauze, Dry Gauze, Secured with Secured with Tape Tape -Fibracol Plus 4x4 1 Treatment Response Procedure Procedure Tolerated Well Tolerated Well Pain Scale: 0-10 Numeric Is Patient Pain Free? Yes Yes WC - Visit Discharge Discharge Condition Stable Stable Ambulatory Status Ambulatory Ambulatory Transportation Private Auto [facility] Facility Type Home Health Wound debrided: Left medial groin ulcer Laterality: Left Type of Debridement: Excisional debridement Anesthesia Used: 4% Lidocaine Solution and 5% Lidocaine Gel Depth: Down to and including healthy tissue and in the subcutaneous layer Percentage of wound debrided: 100 Instrument Used: 5mm curette Tissue Removed: Subcutaneous tissue and slough Severity: Fat Layer Exposed Amount of bleeding with debridement: Mild Bleeding Controlled with: Pressure Patient tolerated procedure: Patient tolerated procedure well Additional Wound Wound debrided: Left lateral groin ulcer cluster Laterality: Left Type of Debridement: Excisional debridement Anesthesia Used: 5% Lidocaine Gel Depth: Down to and including healthy tissue and in the subcutaneous layer Percentage of wound debrided: 100 Instrument Used: 5mm curette Tissue Removed: Subcutaneous tissue and slough Severity: Limited To Skin Breakdown Amount of bleeding with debridement: Mild Bleeding Controlled with: Pressure Patient tolerated procedure: Patient tolerated procedure well Assessment/Plan Assessment/Plan (1) Non-healing surgical wound of left groin: CODE(S): T81.89XA - Other complications of procedures, not elsewhere classified, initial encounter PLAN: Debridement done as documented above, procedure was well-tolerated.? Wound care will consist of Moistened Fibrocal plus covered by gauze daily and as needed. He would benefit from Intradry to place in his pannus folds to prevent the skin on skin friction that gets worse with the warmer weather.? He has been using home health strictly to obtain wound supplies.? Will discontinue home health.? ?Optimal diabetes control again was discussed continue increase protein intake.? His questions were answered and he was advised to call with any further questions or concerns.? Follow-up in 2 weeks at the wound healing center or sooner if needed with Gianni Neil. (2) Abdominal panniculus: CODE(S): E65 - Localized adiposity (3) Type 2 diabetes mellitus: CODE(S): E11.9 - Type 2 diabetes mellitus without complications QUALIFIERS: Qualified Code(s): L98.499 - Non-pressure chronic ulcer of skin of other sites with unspecified severity (4) Morbid obesity: CODE(S): E66.01 - Morbid (severe) obesity due to excess calories
== END 2020-09-19 23:59 ==
LOC: WC 14:30
PROVIDERS: Family Provider Family Medicine; PCP Family Medicine; Referring Provider Nurse Practitioner Family; Visit Provider Nurse Practitioner Family
DX: T81.89XA Other complications of procedures, not elsewhere classified, initial encounter (principal); L98.492 Non-pressure chronic ulcer of skin of other sites with fat layer exposed; E11.40 Type 2 diabetes mellitus with diabetic neuropathy, unspecified; I89.0 Lymphedema, not elsewhere classified; E65 Localized adiposity; L30.4 Erythema intertrigo; M10.9 Gout, unspecified; E66.01 Morbid (severe) obesity due to excess calories; F20.9 Schizophrenia, unspecified; Z79.4 Long term (current) use of insulin; Z79.899 Other long term (current) drug therapy; Z87.39 Personal history of other diseases of the musculoskeletal system and connective tissue
CPT/HCPCS: 11042

== ENCOUNTER 2020-10-13 13:30 | Outpatient (RCR) | payer MEDICARE, MEDICAID, SELFPAY ==
[2020-09-20 00:18] VITALS: BP 115/56; PULSE 72; RESP 18; TEMP 37
[2020-09-29 13:51] VITALS: BP 125/68; PULSE 92; RESP 24; TEMP 36.5
--- NOTE | 2020-09-29 14:32 | PN.PCM_ITS ---
History of Present Illness Date of Service: 09/29/20 Chief Complaint: Nonhealing wound status post surgical excision of necrotizing fasciitis left groin History of Wound: 46-year-old white male who presents to the wound healing center today with complaint of left groin ulceration status post surgical excision of necrotizing fasciitis. He is a past medical history which is significant for that of type 2 diabetes mellitus, gout, diabetic neuropathy, schizophrenia, bilateral lymphedema, and schizophrenia. The patient states that what initially started as a pimple in his left groin progressed to necrotizing fasciitis and he had to have this surgically debrided in April 2017. He was admitted to [facility] for 2 weeks and then [facility] for 6 weeks afterwards. He states that the groin ulcer which extends to his left lower abdomen has been slowly improving and he has been doing daily Aquacel AG dressings with an ABD for the drainage. He does state that he has had 3 wound vacs in the past which were unable to be utilized due to the location of his wound. He denies any foul-smelling discharge or systemic signs of infection at this time. The patient otherwise denies any fever, chills, nausea, vomiting, shortness of breath, chest pain or pressure, palpitations, orthopnea, syncope or presyncopal episodes. Subjective Subjective No new concerns at this time, patient doing well with dressing changes, site is more macerated so will increase to twice a day Objective Data Objective Data Vital Signs: Vital Signs Temp Pulse Resp BP 97.7 F L 92 24 H 125/68 H 09/29/20 13:51 09/29/20 13:51 09/29/20 13:51 09/29/20 13:51 Weight: 400 lb Charges/Coding Procedures Integumentary 111xxx-113xx: [id number] Jessica subq tissue 20 sq cm/< Physical Exam Const alert and oriented x3 General Appearance: cooperative HEENT normocephalic Head and Scalp: atraumatic Eyes PERRL Lymph Lymphatic: no lymphedema noted Resp normal respiratory effort Cardio regular rate GI non-tender GI Narrative: Obese abdomen Palpation: soft Extremity normal capillary refill Skin Wound Narrative: Left medial groin ulcer is pink without any signs of infection at this time, small amount of slough and maceration at wound edges Neuro CN's II-XII intact bilaterally Psych Thought Process: normal thought process Debridement Note Debridement Note Post-Debridement Measurements and Additional Note: Post-Debridement Measurements/Treatment RAMÓN - Nurse 1 - General Ulcer Assessment Start: 09/29/20 13:50 Freq: Status: Active Protocol: FRANKY Activity Type Activity Date Activity User E-Sign Co-Sign Detail Recorded Client Recorded Date Recorded By Document 09/29/20 13:51 DL [id number] 09/29/20 13:58 DL 09/29/20 13:51 WC - Today's Visit Information Type of service Follow-up Visit (Physician/CLINICAL MARKETING MANAGER ) Arrival Mode Ambulatory Transfer Assistance None Patient Identification Verified (Name & Yes ) Patient Requires Transmission-Based No Precautions Finger Stick Blood Sugar(mg/dl) (if 112 indicated): Blood Sugar Stated by Patient Vital Signs Temperature (97.8 F-99.1 F) 97.7 F L Temperature Source Temporal Pulse Rate (60-100) 92 Pulse Location Monitor Respiratory Rate (12-18) 24 H Respiratory rate source Observation Blood Pressure (90/60-120/80) 125/68 H Blood Pressure Mean (mm Hg) 87 Source Monitor History Since Last Visit- (Skip if this is Patient's initial visit) Have you changed medications since your No last visit? Any new allergies or adverse reactions No Had a fall/change in ADL's that may No increase risk of falls Signs or symptoms of abuse and/or No neglect since last visit Have you been in the hospital since your No last visit? Has dressing in place as prescribed Yes Has compression in place as prescribed N/A Has offloadiing in place as prescribed N/A Experienced any changes in pain level or No management Pain Scale: 0-10 Numeric Is Patient Pain Free? Yes RAMÓN - Nurse 1 - General Ulcer Measurement Start: 09/29/20 13:50 Freq: Status: Active Protocol: Activity Type Activity Date Activity User E-Sign Co-Sign Detail Recorded Client Recorded Date Recorded By Document 09/29/20 13:51 DL [id number] 09/29/20 13:58 DL 09/29/20 13:51 Wound Center Nurse 1 #8 left distal abd -Photo Taken No -Exudate Amt Medium -Exudate Type Serosanguineous -Granulation Amt Large (67-100%) -Granulation Quality [place],Red -Texture (Inessa-wound Skin Appearance) Scarring -Tenderness on Palpation (Inessa-wound No Skin Appearance) -Foul Odor after Cleansing No #1- LEFT GROIN- POST OP -Current Size (cm) - Length 6.9 -Current Size (cm) - Width 1 -Current Size (cm) - Depth 0.6 -Total Square Cm 6.9 -Photo Taken No -Exudate Amt Medium -Exudate Type Serosanguineous -Wound Margin Thickened & Rolled Under -Granulation Amt Large (67-100%) -Granulation Quality [place],Red -Necrosis Amt Small (1-33%) -Necrotic Tissue Type Adherent Slough -Structure Exposed N/A -Texture (Inessa-wound Skin Appearance) Scarring -Moisture (Inessa-wound Skin Appearance) No Abnormality -Color (Inessa-wound Skin Appearance) No Abnormality -Temperature (Inessa-wound Skin No Abnormality Appearance) (Pt Warm) -Tenderness on Palpation (Inessa-wound No Skin Appearance) -Ulcer Cleansing Wound Cleanser -Foul Odor after Cleansing No -Anesthetic Used 4% Lidocaine Solution WC - Nurse 3 - General Ulcer D/C NN Start: 09/29/20 13:50 Freq: Status: Active Protocol: Activity Type Activity Date Activity User E-Sign Co-Sign Detail Recorded Client Recorded Date Recorded By Document 09/29/20 14:28 MW [id number] 09/29/20 14:29 MW 09/29/20 14:28 Wound Care Nurse 3 -Ulcer Cleansing Rinsed/ Irrigated with Saline -Foul Odor after Cleansing No -Negative Pressure Wound Therapy N/A -Primary Dressing Applied Fibracol Plus 4x4,Silvercel -Primary Dressing Covered/Secured with Dry Gauze, Secured with Tape -Fibracol Plus 4x4 1 -Silvercel 1 Treatment Response Procedure Tolerated Well Pain Scale: 0-10 Numeric Is Patient Pain Free? Yes Teaching: Wound Center Dressing Your Wound -Person Taught Patient -Teaching Method Discussion -Response to teaching Verbalize understanding WC - Visit Discharge Discharge Condition Stable Ambulatory Status Ambulatory Transportation Private Auto Accompanied by sister Medication Reconcilliation completed & No provided to patient/care provider Clinical Summary of Care Provided Yes Additional Wound Wound debrided: Left medial groin ulcer Laterality: Left Type of Debridement: Excisional debridement Anesthesia Used: 4% Lidocaine Solution Depth: Down to and including healthy tissue and in the subcutaneous layer Percentage of wound debrided: 100 Instrument Used: 3mm curette Tissue Removed: Slough and devitalized tissue Severity: Fat Layer Exposed Amount of bleeding with debridement: Mild Bleeding Controlled with: Pressure Patient tolerated procedure: Patient tolerated procedure well Assessment/Plan Assessment/Plan (1) Non-healing surgical wound of left groin: CODE(S): T81.89XA - Other complications of procedures, not elsewhere classified, initial encounter PLAN: Debridement done as documented above, procedure was well-tolerated. Wound care will consist of Moistened Fibrocal plus covered by gauze and silver cell routine between the 2 change twice daily and as needed. He would benefit from Intradry to place in his pannus folds to prevent the skin on skin friction that gets worse with the warmer weather. Optimal diabetes control again was discussed continue increase protein intake. His questions were answered and he was advised to call with any further questions or concerns. Follow-up in 2 weeks at the wound healing center or sooner if needed (2) Abdominal panniculus: CODE(S): E65 - Localized adiposity (3) Type 2 diabetes mellitus: CODE(S): E11.9 - Type 2 diabetes mellitus without complications QUALIFIERS: Qualified Code(s): L98.499 - Non-pressure chronic ulcer of skin of other sites with unspecified severity (4) Morbid obesity: CODE(S): E66.01 - Morbid (severe) obesity due to excess calories
[2020-10-13 13:34] VITALS: BP 162/54; PULSE 78; RESP 20; TEMP 37
--- NOTE | 2020-10-13 18:21 | PN.PCM_ITS ---
History of Present Illness Date of Service: 10/13/20 Chief Complaint: Nonhealing wound status post surgical excision of necrotizing fasciitis left groin History of Wound: 46-year-old white male who presents to the wound healing center today with complaint of left groin ulceration status post surgical excision of necrotizing fasciitis. He is a past medical history which is significant for that of type 2 diabetes mellitus, gout, diabetic neuropathy, schizophrenia, bilateral lymphedema, and schizophrenia. The patient states that what initially started as a pimple in his left groin progressed to necrotizing fasciitis and he had to have this surgically debrided in April 2017. He was admitted to [facility] for [facility] weeks and then [facility] afterwards. He states that the groin ulcer which extends to his left lower abdomen has been slowly improving and he has been doing daily Aquacel AG dressings with an ABD for the drainage. He does state that he has had 3 wound vacs in the past which were unable to be utilized due to the location of his wound. He denies any foul-smelling discharge or systemic signs of infection at this time. The patient otherwise denies any fever, chills, nausea, vomiting, shortness of breath, chest pain or pressure, palpitations, orthopnea, syncope or presyncopal episodes. Progress of Wound: Stable, no new concerns, denies any signs of infection at this time. Objective Data Objective Data Vital Signs: Vital Signs Temp Pulse Resp BP 98.6 F 78 20 H 162/54 H 10/13/20 13:34 10/13/20 13:34 10/13/20 13:34 10/13/20 13:34 Weight: 400 lb Charges/Coding Procedures Integumentary 111xxx-113xx: [id number] Jessica subq tissue 20 sq cm/< Physical Exam Const alert and oriented x3 General Appearance: cooperative HEENT normocephalic Head and Scalp: atraumatic Eyes PERRL Lymph Lymphatic: no lymphedema noted Resp normal respiratory effort Cardio regular rate GI non-tender GI Narrative: Obese abdomen Palpation: soft Extremity normal capillary refill Skin Wound Narrative: Left medial groin ulcer is pink without any signs of infection at this time, small amount of slough and maceration at wound edges Neuro CN's II-XII intact bilaterally Psych Thought Process: normal thought process Debridement Note Debridement Note Post-Debridement Measurements and Additional Note: Post-Debridement Measurements/Treatment WC - Nurse 1 - General Ulcer Assessment Start: 09/29/20 13:50 Freq: Status: Active Protocol: FRANKY Activity Type Activity Date Activity User E-Sign Co-Sign Detail Recorded Client Recorded Date Recorded By Document 09/29/20 13:51 DL [id number] 09/29/20 13:58 DL Document 10/13/20 13:34 DL [id number] 10/13/20 13:41 DL 09/29/20 10/13/20 13:51 13:34 WC - Today's Visit Information Type of service Follow-up Visit Follow-up Visit (Physician/THERAPEUTIC SPECIALIST (Physician/THERAPEUTIC SPECIALIST ) ) Arrival Mode Ambulatory Ambulatory Transfer Assistance None None Patient Identification Verified (Name & Yes ) Patient Requires Transmission-Based No No Precautions Finger Stick Blood Sugar(mg/dl) (if 112 indicated): Blood Sugar Stated by Patient Vital Signs Temperature (97.8 F-99.1 F) 97.7 F L 98.6 F Temperature Source Temporal Temporal Pulse Rate (60-100) 92 78 Pulse Location Monitor Monitor Respiratory Rate (12-18) 24 H 20 H Respiratory rate source Observation Observation Blood Pressure (90/60-120/80) 125/68 H 162/54 H Blood Pressure Mean (mm Hg) 87 90 Source Monitor Monitor History Since Last Visit- (Skip if this is Patient's initial visit) Have you changed medications since your No No last visit? Any new allergies or adverse reactions No No Had a fall/change in ADL's that may No increase risk of falls Signs or symptoms of abuse and/or No No neglect since last visit Have you been in the hospital since your No No last visit? Has dressing in place as prescribed Yes Yes Has compression in place as prescribed N/A N/A Has offloadiing in place as prescribed N/A N/A Experienced any changes in pain level or No No management Pain Scale: 0-10 Numeric Is Patient Pain Free? Yes Yes - Nurse 1 - General Ulcer Measurement Start: 09/29/20 13:50 Freq: Status: Active Protocol: Activity Type Activity Date Activity User E-Sign Co-Sign Detail Recorded Client Recorded Date Recorded By Document 09/29/20 13:51 DL [id number] 09/29/20 13:58 DL Document 10/13/20 13:34 DL [id number] 10/13/20 13:41 DL 09/29/20 10/13/20 13:51 13:34 Wound Center Nurse 1 #8 left distal abd -Photo Taken No -Exudate Amt Medium -Exudate Type Serosanguineous -Granulation Amt Large (67-100%) -Granulation Quality [place],Red -Texture (Inessa-wound Skin Appearance) Scarring -Tenderness on Palpation (Inessa-wound No Skin Appearance) -Foul Odor after Cleansing No #1- LEFT GROIN- POST OP -Current Size (cm) - Length 6.9 1 -Current Size (cm) - Width 1 5.7 -Current Size (cm) - Depth 0.6 0.2 -Total Square Cm 6.9 5.7 -Photo Taken No No -Exudate Amt Medium Small -Exudate Type Serosanguineous Serosanguineous -Wound Margin Thickened & Distinct, Rolled Under Outline Attached -Granulation Amt Large (67-100%) Large (67-100%) -Granulation Quality [place],Red Red -Necrosis Amt Small (1-33%) Small (1-33%) -Necrotic Tissue Type Adherent Slough -Structure Exposed N/A N/A -Texture (Inessa-wound Skin Appearance) Scarring Scarring -Moisture (Inessa-wound Skin Appearance) No Abnormality Maceration -Color (Inessa-wound Skin Appearance) No Abnormality No Abnormality, Rubor -Temperature (Inessa-wound Skin No Abnormality No Abnormality Appearance) (Pt Warm) (Pt Warm) -Tenderness on Palpation (Inessa-wound No No Skin Appearance) -Ulcer Cleansing Wound Cleanser Rinsed/ Irrigated with Saline -Foul Odor after Cleansing No No -Anesthetic Used 4% Lidocaine 4% Lidocaine Solution Solution WC - Nurse 2 - General Ulcer CM Notes Start: 09/29/20 13:50 Freq: Status: Active Protocol: Activity Type Activity Date Activity User E-Sign Co-Sign Detail Recorded Client Recorded Date Recorded By Document 09/29/20 14:46 PL [id number] 09/29/20 14:49 PL Document 10/13/20 18:04 PL [id number] 10/13/20 18:05 PL 09/29/20 10/13/20 14:46 18:04 Wound Center Nurse 2 #8 left distal abd -Tunneling No -Undermining/Tunneling No #1- LEFT GROIN- POST OP -Time 14:10 13:52 -Correct Patient Yes Yes -Correct Side, Site, Position Yes Yes -Correct Procedure Yes Yes -Procedure Performed Yes -Type of Procedure Debridement -Clinical Debridement Subcutaneous Subcutaneous -Tissue Removed Subcutaneous Subcutaneous -Post Debridement (cm) - Length 1.0 1.5 -Post Debridement (cm) - Width 7.0 5.5 -Post Debridement (cm) - Depth 0.2 0.1 -Total Square (Post) (cm) 7.00 8.25 -Area of Debridement (cm) - Length 1.0 1.5 -Area of Debridement (cm) - Width 7.0 5.5 -Total Square (Area) (cm) 7.00 8.25 -Tunneling No No -Undermining/Tunneling No No -Circular Undermining No No -Wound/Ulcer Outcome Not Healed Not Healed -Ulcer Cleansing Rinsed/ Rinsed/ Irrigated with Irrigated with Saline Saline -Foul Odor after Cleansing No No -Bioengineered Tissue No No -Bleeding Controlled with Pressure -Treatment Response Procedure Tolerated Well -Debridement - Subq, 1st 20sq cm Yes Yes Pain Scale: 0-10 Numeric Is Patient Pain Free? Yes Yes - Nurse 3 - General Ulcer D/C NN Start: 09/29/20 13:50 Freq: Status: Active Protocol: Activity Type Activity Date Activity User E-Sign Co-Sign Detail Recorded Client Recorded Date Recorded By Document 09/29/20 14:28 MW [id number] 09/29/20 14:29 MW Document 10/13/20 13:58 KR [id number] 10/13/20 13:59 KR 09/29/20 10/13/20 14:28 13:58 Wound Care Nurse 3 #1- LEFT GROIN- POST OP -Ulcer Cleansing Rinsed/ Irrigated with Saline -Foul Odor after Cleansing No -Negative Pressure Wound Therapy N/A -Primary Dressing Applied Fibracol Plus Fibracol Plus 4x4,Silvercel 4x4 -Primary Dressing Covered/Secured with Dry Gauze, Dry Gauze, Secured with Secured with Tape Tape -Fibracol Plus 4x4 1 1 -Silvercel 1 Treatment Response Procedure Tolerated Well Pain Scale: 0-10 Numeric Is Patient Pain Free? Yes Yes Teaching: Wound Center Dressing Your Wound -Person Taught Patient -Teaching Method Discussion -Response to teaching Verbalize understanding WC - Visit Discharge Discharge Condition Stable Stable Ambulatory Status Ambulatory Ambulatory Transportation Private Auto Private Auto Accompanied by sister Medication Reconcilliation completed & No provided to patient/care provider Clinical Summary of Care Provided Yes Additional Wound Wound debrided: left groin ulcer Laterality: Left Type of Debridement: Excisional debridement Anesthesia Used: 5% Lidocaine Gel Depth: Down to and including healthy tissue and in the subcutaneous layer Percentage of wound debrided: 100 Instrument Used: 5mm curette Tissue Removed: slough and devitalized tissue Severity: Fat Layer Exposed Amount of bleeding with debridement: Mild Bleeding Controlled with: Pressure Patient tolerated procedure: Patient tolerated procedure well Assessment/Plan Assessment/Plan (1) Non-healing surgical wound of left groin: CODE(S): T81.89XA - Other complications of procedures, not elsewhere classified, initial encounter PLAN: Debridement done as documented above, procedure was well-tolerated. Wound care will consist of Moistened Fibrocal plus covered by gauze and silver cell rotate between the 2 change twice daily and as needed. He would benefit from Intradry to place in his pannus folds to prevent the skin on skin friction that gets worse with the warmer weather. Optimal diabetes control again was discussed continue increase protein intake. His questions were answered and he was advised to call with any further questions or concerns. Follow-up in 2 weeks at the wound healing center or sooner if needed (2) Abdominal panniculus: CODE(S): E65 - Localized adiposity (3) Type 2 diabetes mellitus: CODE(S): E11.9 - Type 2 diabetes mellitus without complications QUALIFIERS: Qualified Code(s): L98.499 - Non-pressure chronic ulcer of skin of other sites with unspecified severity (4) Morbid obesity: CODE(S): E66.01 - Morbid (severe) obesity due to excess calories
== END 2020-10-19 23:59 ==
LOC: WC 13:30
PROVIDERS: Family Provider Family Medicine; PCP Family Medicine; Referring Provider Nurse Practitioner Family; Visit Provider Nurse Practitioner Family
DX: T81.89XA Other complications of procedures, not elsewhere classified, initial encounter (principal); L98.492 Non-pressure chronic ulcer of skin of other sites with fat layer exposed; E11.40 Type 2 diabetes mellitus with diabetic neuropathy, unspecified; I89.0 Lymphedema, not elsewhere classified; M10.9 Gout, unspecified; F20.9 Schizophrenia, unspecified; E66.01 Morbid (severe) obesity due to excess calories; Z79.4 Long term (current) use of insulin; Z79.899 Other long term (current) drug therapy; Z87.39 Personal history of other diseases of the musculoskeletal system and connective tissue
CPT/HCPCS: 11042

== ENCOUNTER 2020-11-10 13:45 | Outpatient (RCR) | payer MEDICARE, MEDICAID, SELFPAY ==
[2020-10-20 00:17] VITALS: BP 162/54; PULSE 78; RESP 20; TEMP 37
[2020-10-27 14:11] VITALS: BP 148/86; PULSE 79; RESP 18; TEMP 36.1
--- NOTE | 2020-10-27 19:13 | PN.PCM_ITS ---
History of Present Illness Date of Service: 10/27/20 Chief Complaint: Nonhealing wound status post surgical excision of necrotizing fasciitis left groin History of Wound: 46-year-old white male who presents to the wound healing center today with complaint of left groin ulceration status post surgical excision of necrotizing fasciitis. He is a past medical history which is significant for that of type 2 diabetes mellitus, gout, diabetic neuropathy, schizophrenia, bilateral lymphedema, and schizophrenia. The patient states that what initially started as a pimple in his left groin progressed to necrotizing fasciitis and he had to have this surgically debrided in April 2017. He was admitted to [facility] for [facility] weeks and then [facility] for 6 weeks afterwards. He states that the groin ulcer which extends to his left lower abdomen has been slowly improving and he has been doing daily Aquacel AG dressings with an ABD for the drainage. He does state that he has had 3 wound vacs in the past which were unable to be utilized due to the location of his wound. He denies any foul-smelling discharge or systemic signs of infection at this time. The patient otherwise denies any fever, chills, nausea, vomiting, shortness of breath, chest pain or pressure, palpitations, orthopnea, syncope or presyncopal episodes. Progress of Wound: stable, no new concerns Objective Data Objective Data Vital Signs: Vital Signs Temp Pulse Resp BP 97.0 F L 79 18 148/86 H 10/27/20 14:11 10/27/20 14:11 10/27/20 14:11 10/27/20 14:11 Weight: 400 lb Charges/Coding Procedures Integumentary 111xxx-113xx: [id number] Jessica subq tissue 20 sq cm/< Physical Exam Const alert and oriented x3 General Appearance: cooperative HEENT normocephalic Head and Scalp: atraumatic Eyes PERRL Lymph Lymphatic: no lymphedema noted Resp normal respiratory effort Cardio regular rate GI non-tender GI Narrative: Obese abdomen Palpation: soft Extremity normal capillary refill Skin Wound Narrative: Left medial groin ulcer is pink without any signs of infection at this time, small amount of slough and maceration at wound edges Neuro CN's II-XII intact bilaterally Psych Thought Process: normal thought process Debridement Note Debridement Note Post-Debridement Measurements and Additional Note: Post-Debridement Measurements/Treatment WC - Nurse 1 - General Ulcer Assessment Start: 10/27/20 14:11 Freq: Status: Active Protocol: KARIN Activity Type Activity Date Activity User E-Sign Co-Sign Detail Recorded Client Recorded Date Recorded By Document 10/27/20 14:11 ML [id number] 10/27/20 14:13 ML 10/27/20 14:11 - Today's Visit Information Type of service Follow-up Visit (Physician/[employer]IONAL [employer] DRIVER ) Arrival Mode Ambulatory Transfer Assistance None Patient Identification Verified (Name & Yes ) Patient Requires Transmission-Based No Precautions Safety Precautions NA Vital Signs Temperature (97.8 F-99.1 F) 97.0 F L Temperature Source Temporal Pulse Rate (60-100) 79 Pulse Location Monitor Respiratory Rate (12-18) 18 Respiratory rate source Observation Blood Pressure (90/60-120/80) 148/86 H Blood Pressure Mean (mm Hg) 106 Source Monitor Position Sitting Blood Pressure Location Right Arm History Since Last Visit- (Skip if this is Patient's initial visit) Have you changed medications since your No last visit? Any new allergies or adverse reactions No Had a fall/change in ADL's that may No increase risk of falls Signs or symptoms of abuse and/or No neglect since last visit Have you been in the hospital since your No last visit? Has dressing in place as prescribed Yes Has compression in place as prescribed N/A Has offloadiing in place as prescribed N/A Experienced any changes in pain level or No management Left Footwear Regular Shoe Right Footwear Regular Shoe Pain Scale: 0-10 Numeric Is Patient Pain Free? Yes - Nurse 1 - General Ulcer Measurement Start: 10/27/20 14:11 Freq: Status: Active Protocol: Activity Type Activity Date Activity User E-Sign Co-Sign Detail Recorded Client Recorded Date Recorded By Document 10/27/20 14:11 ML [id number] 10/27/20 14:13 ML 10/27/20 14:11 Wound Center Nurse 1 #1- LEFT GROIN- POST OP -Current Size (cm) - Length 0.6 -Current Size (cm) - Width 5.5 -Current Size (cm) - Depth 0.1 -Total Square Cm 3.30 -Exudate Amt Small -Exudate Type Serosanguineous -Wound Margin Distinct, Outline Attached -Granulation Amt Large (67-100%) -Granulation Quality Red -Necrosis Amt Small (1-33%) -Necrotic Tissue Type Adherent Slough -Texture (Inessa-wound Skin Appearance) Assessed -Moisture (Inessa-wound Skin Appearance) Maceration -Color (Inessa-wound Skin Appearance) Assessed -Temperature (Inessa-wound Skin No Abnormality Appearance) (Pt Warm) -Tenderness on Palpation (Inessa-wound No Skin Appearance) -Ulcer Cleansing Rinsed/ Irrigated with Saline -Foul Odor after Cleansing No -Anesthetic Used 4% Lidocaine Solution WC - Nurse 2 - General Ulcer CM Notes Start: 10/27/20 14:11 Freq: Status: Active Protocol: Activity Type Activity Date Activity User E-Sign Co-Sign Detail Recorded Client Recorded Date Recorded By Document 10/27/20 16:08 PL [id number] 10/27/20 16:09 PL 10/27/20 16:08 Wound Center Nurse 2 -Time 14:42 -Correct Patient Yes -Correct Side, Site, Position Yes -Correct Procedure Yes -Procedure Performed Yes -Type of Procedure Debridement -Clinical Debridement Subcutaneous -Tissue Removed Subcutaneous -Post Debridement (cm) - Length 1.4 -Post Debridement (cm) - Width 5.0 -Post Debridement (cm) - Depth 0.1 -Total Square (Post) (cm) 7.00 -Area of Debridement (cm) - Length 1.4 -Area of Debridement (cm) - Width 5.0 -Total Square (Area) (cm) 7.00 -Tunneling No -Undermining/Tunneling No -Circular Undermining No -Wound/Ulcer Outcome Not Healed -Ulcer Cleansing Rinsed/ Irrigated with Saline -Foul Odor after Cleansing No -Bioengineered Tissue No -Debridement - Subq, 1st 20sq cm Yes Pain Scale: 0-10 Numeric Is Patient Pain Free? Yes - Nurse 3 - General Ulcer D/C NN Start: 10/27/20 14:11 Freq: Status: Active Protocol: Activity Type Activity Date Activity User E-Sign Co-Sign Detail Recorded Client Recorded Date Recorded By Document 10/27/20 15:19 MW [id number] 10/27/20 15:20 MW 10/27/20 15:19 Wound Care Nurse 3 #1- LEFT GROIN- POST OP -Ulcer Cleansing Rinsed/ Irrigated with Saline -Foul Odor after Cleansing No -Negative Pressure Wound Therapy N/A -Primary Dressing Applied Fibracol Plus 4x4,Silvercel -Primary Dressing Covered/Secured with Dry Gauze, Secured with Tape -Fibracol Plus 4x4 1 -Silvercel 1 Treatment Response Procedure Tolerated Well Pain Scale: 0-10 Numeric Is Patient Pain Free? Yes Teaching: Wound Center Dressing Your Wound -Person Taught Patient -Teaching Method Discussion, Demonstration -Response to teaching Verbalize understanding WC - Visit Discharge Discharge Condition Stable Ambulatory Status Ambulatory Transportation Private Auto Accompanied by brother Medication Reconcilliation completed & No provided to patient/care provider Clinical Summary of Care Provided Yes Additional Wound Wound debrided: left groin ulcer Laterality: Left Type of Debridement: Excisional debridement Anesthesia Used: 5% Lidocaine Gel Depth: Down to and including healthy tissue and in the subcutaneous layer Percentage of wound debrided: 100 Instrument Used: 5mm curette Tissue Removed: slough and devitalized tissue Severity: Fat Layer Exposed Amount of bleeding with debridement: Mild Bleeding Controlled with: Pressure Patient tolerated procedure: Patient tolerated procedure well Assessment/Plan Assessment/Plan (1) Non-healing surgical wound of left groin: CODE(S): T81.89XA - Other complications of procedures, not elsewhere classified, initial encounter PLAN: Debridement done as documented above, procedure was well-tolerated. Wound care will consist of Moistened Fibrocal plus covered by gauze and silver cell rotate between the 2 change twice daily and as needed. He would benefit from Intradry to place in his pannus folds to prevent the skin on skin friction that gets worse with the warmer weather. Optimal diabetes control again was d iscussed continue increase protein intake. His questions were answered and he was advised to call with any further questions or concerns. Follow-up in 2 weeks at the wound healing center or sooner if needed (2) Abdominal panniculus: CODE(S): E65 - Localized adiposity (3) Type 2 diabetes mellitus: CODE(S): E11.9 - Type 2 diabetes mellitus without complications QUALIFIERS: Qualified Code(s): L98.499 - Non-pressure chronic ulcer of skin of other sites with unspecified severity (4) Morbid obesity: CODE(S): E66.01 - Morbid (severe) obesity due to excess calories
[2020-11-10 13:51] VITALS: BP 143/75; PULSE 75; RESP 17; TEMP 36.4
--- NOTE | 2020-11-10 19:47 | PCM.WC.PN ---
History of Present Illness Date of Service: 11/10/20 Chief Complaint: Nonhealing wound status post surgical excision of necrotizing fasciitis left groin History of Wound: 46-year-old white male who presents to the wound healing center today with complaint of left groin ulceration status post surgical excision of necrotizing fasciitis. He is a past medical history which is significant for that of type 2 diabetes mellitus, gout, diabetic neuropathy, schizophrenia, bilateral lymphedema, and schizophrenia. The patient states that what initially started as a pimple in his left groin progressed to necrotizing fasciitis and he had to have this surgically debrided in April 2017. He was admitted to [facility] for 2 weeks and then [facility] for 6 weeks afterwards. He states that the groin ulcer which extends to his left lower abdomen has been slowly improving and he has been doing daily Aquacel AG dressings with an ABD for the drainage. He does state that he has had 3 wound vacs in the past which were unable to be utilized due to the location of his wound. He denies any foul-smelling discharge or systemic signs of infection at this time. The patient otherwise denies any fever, chills, nausea, vomiting, shortness of breath, chest pain or pressure, palpitations, orthopnea, syncope or presyncopal episodes. Progress of Wound: stable, no new concerns Objective Data Objective Data Vital Signs: Vital Signs Temp Pulse Resp BP 97.6 F L 75 17 143/75 H 11/10/20 13:51 11/10/20 13:51 11/10/20 13:51 11/10/20 13:51 Weight: 400 lb Charges/Coding Procedures Integumentary [id number]: [id number] Jessica subq tissue 20 sq cm/< Physical Exam Const alert and oriented x3 General Appearance: cooperative HEENT normocephalic Head and Scalp: atraumatic Eyes PERRL Lymph Lymphatic: no lymphedema noted Resp normal respiratory effort Cardio regular rate GI non-tender GI Narrative: Obese abdomen Palpation: soft Extremity normal capillary refill Skin Wound Narrative: Left medial groin ulcer is pink without any signs of infection at this time, small amount of slough and maceration at wound edges Neuro CN's II-XII intact bilaterally Psych Thought Process: normal thought process Debridement Note Debridement Note Post-Debridement Measurements and Additional Note: Post-Debridement Measurements/Treatment WC - Nurse 1 - General Ulcer Assessment Start: 10/27/20 14:11 Freq: Status: Active Protocol: FRANKY Activity Type Activity Date Activity User E-Sign Co-Sign Detail Recorded Client Recorded Date Recorded By Document 10/27/20 14:11 ML [id number] 10/27/20 14:13 ML Document 11/10/20 13:51 ML [id number] 11/10/20 13:55 ML 10/27/20 11/10/20 14:11 13:51 WC - Today's Visit Information Type of service Follow-up Visit Follow-up Visit (Physician/DISTANCE LEARNING PROGRAM COORDINATOR (Physician/DISTANCE LEARNING PROGRAM COORDINATOR ) ) Arrival Mode Ambulatory Ambulatory Transfer Assistance None None Patient Identification Verified (Name & Yes Yes ) Patient Requires Transmission-Based No No Precautions Safety Precautions NA NA Finger Stick Blood Sugar(mg/dl) (if 97 indicated): Blood Sugar Stated by Patient Vital Signs Temperature (97.8 F-99.1 F) 97.0 F L 97.6 F L Temperature Source Temporal Temporal Pulse Rate (60-100) 79 75 Pulse Location Monitor Monitor Respiratory Rate (12-18) 18 17 Respiratory rate source Observation Observation Blood Pressure (90/60-120/80) 148/86 H 143/75 H Blood Pressure Mean (mm Hg) 106 97 Source Monitor Monitor Position Sitting Sitting Blood Pressure Location Right Arm Left Arm History Since Last Visit- (Skip if this is Patient's initial visit) Have you changed medications since your No No last visit? Any new allergies or adverse reactions No No Had a fall/change in ADL's that may No No increase risk of falls Signs or symptoms of abuse and/or No No neglect since last visit Have you been in the hospital since your No No last visit? Has dressing in place as prescribed Yes Yes Has compression in place as prescribed N/A N/A Has offloadiing in place as prescribed N/A N/A Experienced any changes in pain level or No No management Left Footwear Regular Shoe Regular Shoe Right Footwear Regular Shoe Regular Shoe Pain Scale: 0-10 Numeric Is Patient Pain Free? Yes Yes - Nurse 1 - General Ulcer Measurement Start: 10/27/20 14:11 Freq: Status: Active Protocol: Activity Type Activity Date Activity User E-Sign Co-Sign Detail Recorded Client Recorded Date Recorded By Document 10/27/20 14:11 ML [id number] 10/27/20 14:13 ML Document 11/10/20 13:51 ML [id number] 11/10/20 13:55 ML 10/27/20 11/10/20 14:11 13:51 Wound Center Nurse 1 #1- LEFT GROIN- POST OP -Current Size (cm) - Length 0.6 1.6 -Current Size (cm) - Width 5.5 6.1 -Current Size (cm) - Depth 0.1 0.1 -Total Square Cm 3.30 9.76 -Exudate Amt Small Small -Exudate Type Serosanguineous Serosanguineous -Wound Margin Distinct, Distinct, Outline Outline Attached Attached -Granulation Amt Large (67-100%) Medium (34-66%) -Granulation Quality Red [place] -Slough/Fibrin Yes -Necrosis Amt Small (1-33%) Medium (34-66%) -Necrotic Tissue Type Adherent Slough Adherent Slough -Texture (Inessa-wound Skin Appearance) Assessed Assessed -Moisture (Inessa-wound Skin Appearance) Maceration Assessed -Color (Inessa-wound Skin Appearance) Assessed Assessed -Temperature (Inessa-wound Skin No Abnormality No Abnormality Appearance) (Pt Warm) (Pt Warm) -Tenderness on Palpation (Inessa-wound No No Skin Appearance) -Ulcer Cleansing Rinsed/ Rinsed/ Irrigated with Irrigated with Saline Saline -Foul Odor after Cleansing No No -Anesthetic Used 4% Lidocaine 4% Lidocaine Solution Solution WC - Nurse 2 - General Ulcer CM Notes Start: 10/27/20 14:11 Freq: Status: Active Protocol: Activity Type Activity Date Activity User E-Sign Co-Sign Detail Recorded Client Recorded Date Recorded By Document 10/27/20 16:08 PL [id number] 10/27/20 16:09 PL Document 11/10/20 14:07 MW [id number] 11/10/20 14:13 MW 10/27/20 11/10/20 16:08 14:07 Wound Center Nurse 2 #1- LEFT GROIN- POST OP -Time 14:42 14:07 -Correct Patient Yes Yes -Correct Side, Site, Position Yes Yes -Correct Procedure Yes Yes -Procedure Performed Yes Yes -Type of Procedure Debridement Debridement -Clinical Debridement Subcutaneous Subcutaneous -Tissue Removed Subcutaneous Subcutaneous -Post Debridement (cm) - Length 1.4 1.5 -Post Debridement (cm) - Width 5.0 5.0 -Post Debridement (cm) - Depth 0.1 0.1 -Total Square (Post) (cm) 7.00 7.50 -Area of Debridement (cm) - Length 1.4 1.5 -Area of Debridement (cm) - Width 5.0 5.0 -Total Square (Area) (cm) 7.00 7.50 -Tunneling No No -Undermining/Tunneling No No -Circular Undermining No No -Wound/Ulcer Outcome Not Healed Not Healed -Ulcer Cleansing Rinsed/ Rinsed/ Irrigated with Irrigated with Saline Saline -Foul Odor after Cleansing No No -Bioengineered Tissue No No -Bleeding Controlled with Pressure,Silver Nitrate -Offloading No -Treatment Response Procedure Tolerated Well -Debridement - Subq, 1st 20sq cm Yes Yes Pain Scale: 0-10 Numeric Is Patient Pain Free? Yes Yes - Nurse 3 - General Ulcer D/C NN Start: 10/27/20 14:11 Freq: Status: Active Protocol: Activity Type Activity Date Activity User E-Sign Co-Sign Detail Recorded Client Recorded Date Recorded By Document 10/27/20 15:19 MW [id number] 10/27/20 15:20 MW Document 11/10/20 14:15 MW [id number] 11/10/20 14:16 MW 10/27/20 11/10/20 15:19 14:15 Wound Care Nurse 3 #1- LEFT GROIN- POST OP -Ulcer Cleansing Rinsed/ Rinsed/ Irrigated with Irrigated with Saline Saline -Foul Odor after Cleansing No No -Negative Pressure Wound Therapy N/A N/A -Primary Dressing Applied Fibracol Plus Mepilex Border, 4x4,Silvercel Silvercel -Primary Dressing Covered/Secured with Dry Gauze, Secured with Tape -Fibracol Plus 4x4 1 -Mepilex Border 1 -Silvercel 1 1 Treatment Response Procedure Tolerated Well Pain Scale: 0-10 Numeric Is Patient Pain Free? Yes Yes Teaching: Wound Center Dressing Your Wound -Person Taught Patient Patient -Teaching Method Discussion, Discussion, Demonstration Demonstration -Response to teaching Verbalize Verbalize understanding understanding WC - Visit Discharge Discharge Condition Stable Stable Ambulatory Status Ambulatory Ambulatory Transportation Private Auto Private Auto Accompanied by brother self Medication Reconcilliation completed & No No provided to patient/care provider Clinical Summary of Care Provided Yes Additional Wound Wound debrided: Left groin ulcer Laterality: Left Type of Debridement: Selective debridement Anesthesia Used: 5% Lidocaine Gel Depth: Down to and including healthy tissue and in the subcutaneous layer Percentage of wound debrided: 100 Instrument Used: 5mm curette Tissue Removed: Slough and devitalized tissue Severity: Fat Layer Exposed Amount of bleeding with debridement: Mild Bleeding Controlled with: Pressure Patient tolerated procedure: Patient tolerated procedure well Assessment/Plan Assessment/Plan (1) Non-healing surgical wound of left groin: CODE(S): T81.89XA - Other complications of procedures, not elsewhere classified, initial encounter PLAN: Debridement done as documented above, procedure was well-tolerated. Wound care will consist of Moistened Fibrocal plus covered by gauze and silver cell rotate between the 2 change twice daily and as needed. This dressing will also be covered by [place] SAP border dressing to help with excess moisture and maceration. He would benefit from Intradry to place in his pannus folds to prevent the skin on skin friction that gets worse with the warmer weather. Optimal diabetes control again was discussed continue increase protein intake. His questions were answered and he was advised to call with any further questions or concerns. Follow-up in 2 weeks at the wound healing center or sooner if needed. Since he is still having delayed wound healing would like patient to have surgical consult again as his nonhealing wound has been present for over a year now. This note was generated with [employer] dictation software. It may contain incorrect words, spelling, and punctuation that were not noted in checking the note before signing. (2) Abdominal panniculus: CODE(S): E65 - Localized adiposity (3) Type 2 diabetes mellitus: CODE(S): E11.9 - Type 2 diabetes mellitus without complications QUALIFIERS: Qualified Code(s): L98.499 - Non-pressure chronic ulcer of skin of other sites with unspecified severity (4) Morbid obesity: CODE(S): E66.01 - Morbid (severe) obesity due to excess calories
== END 2020-11-19 23:59 ==
LOC: WC 13:45
PROVIDERS: Family Provider Family Medicine; PCP Family Medicine; Referring Provider Nurse Practitioner Family; Visit Provider Nurse Practitioner Family
DX: T81.89XA Other complications of procedures, not elsewhere classified, initial encounter (principal); L98.492 Non-pressure chronic ulcer of skin of other sites with fat layer exposed; E11.40 Type 2 diabetes mellitus with diabetic neuropathy, unspecified; F20.9 Schizophrenia, unspecified; I89.0 Lymphedema, not elsewhere classified; E66.01 Morbid (severe) obesity due to excess calories; Z79.4 Long term (current) use of insulin; Z79.899 Other long term (current) drug therapy; Z87.39 Personal history of other diseases of the musculoskeletal system and connective tissue
CPT/HCPCS: 11042

== ENCOUNTER 2020-12-15 13:45 | Outpatient (RCR) | payer MEDICARE, MEDICAID, SELFPAY ==
[2020-11-20 00:21] VITALS: BP 143/75; PULSE 75; RESP 17; TEMP 36.4
[2020-11-24 13:50] VITALS: BP 141/73; PULSE 88; RESP 20; TEMP 37.1
--- NOTE | 2020-11-24 18:28 | PN.PCM_ITS ---
History of Present Illness Date of Service: 11/24/20 Chief Complaint: Nonhealing wound status post surgical excision of necrotizing fasciitis left groin History of Wound: 46-year-old white male who presents to the wound healing center today with complaint of left groin ulceration status post surgical excision of necrotizing fasciitis. He is a past medical history which is significant for that of type 2 diabetes mellitus, gout, diabetic neuropathy, schizophrenia, bilateral lymphedema, and schizophrenia. The patient states that what initially started as a pimple in his left groin progressed to necrotizing fasciitis and he had to have this surgically debrided in April 2017. He was admitted to [facility] for 2 weeks and then [facility] for 6 weeks afterwards. He states that the groin ulcer which extends to his left lower abdomen has been slowly improving and he has been doing daily Aquacel AG dressings with an ABD for the drainage. He does state that he has had 3 wound vacs in the past which were unable to be utilized due to the location of his wound. He denies any foul-smelling discharge or systemic signs of infection at this time. The patient otherwise denies any fever, chills, nausea, vomiting, shortness of breath, chest pain or pressure, palpitations, orthopnea, syncope or presyncopal episodes. Progress of Wound: Stable, no new concerns, patient is doing better with the [place] SAP foam dressings, states that his recent A1c was 5.5 Objective Data Objective Data Vital Signs: Vital Signs Temp Pulse Resp BP 98.7 F 88 20 H 141/73 H 11/24/20 13:50 11/24/20 13:50 11/24/20 13:50 11/24/20 13:50 Weight: 400 lb Charges/Coding Procedures Integumentary 111xxx-113xx: [id number] Jessica subq tissue 20 sq cm/< Physical Exam Const alert and oriented x3 General Appearance: cooperative HEENT normocephalic Head and Scalp: atraumatic Eyes PERRL Lymph Lymphatic: no lymphedema noted Resp normal respiratory effort Cardio regular rate GI non-tender GI Narrative: Obese abdomen Palpation: soft Extremity normal capillary refill Skin Wound Narrative: Left medial groin ulcer is pink without any signs of infection at this time, small amount of slough and maceration at wound edges Neuro CN's II-XII intact bilaterally Psych Thought Process: normal thought process Debridement Note Debridement Note Post-Debridement Measurements and Additional Note: Post-Debridement Measurements/Treatment - Nurse 1 - General Ulcer Assessment Start: 11/24/20 13:48 Freq: Status: Active Protocol: FRANKY Activity Type Activity Date Activity User E-Sign Co-Sign Detail Recorded Client Recorded Date Recorded By Document 11/24/20 13:50 DL [id number] 11/24/20 13:56 DL 11/24/20 13:50 WC - Today's Visit Information Type of service Follow-up Visit (Physician/SUPERVISOR PHOSPHATIC FERTILIZER ) Arrival Mode Ambulatory Transfer Assistance None Patient Identification Verified (Name & Yes ) Patient Requires Transmission-Based No Precautions Vital Signs Temperature (97.8 F-99.1 F) 98.7 F Temperature Source Temporal Pulse Rate (60-100) 88 Pulse Location Monitor Respiratory Rate (12-18) 20 H Respiratory rate source Observation Blood Pressure (90/60-120/80) 141/73 H Blood Pressure Mean (mm Hg) 95 Source Monitor History Since Last Visit- (Skip if this is Patient's initial visit) Have you changed medications since your No last visit? Any new allergies or adverse reactions No Had a fall/change in ADL's that may No increase risk of falls Signs or symptoms of abuse and/or No neglect since last visit Have you been in the hospital since your No last visit? Has dressing in place as prescribed Yes Has compression in place as prescribed N/A Has offloadiing in place as prescribed N/A Experienced any changes in pain level or No management Pain Scale: 0-10 Numeric Is Patient Pain Free? Yes - Nurse 1 - General Ulcer Measurement Start: 11/24/20 13:48 Freq: Status: Active Protocol: Activity Type Activity Date Activity User E-Sign Co-Sign Detail Recorded Client Recorded Date Recorded By Document 11/24/20 13:50 DL [id number] 11/24/20 13:56 DL 11/24/20 13:50 Wound Center Nurse 1 #1- LEFT GROIN- POST OP -Current Size (cm) - Length 1 -Current Size (cm) - Width 3.5 -Current Size (cm) - Depth 0.3 -Total Square Cm 3.5 -Photo Taken No -Exudate Amt Small -Exudate Type Serosanguineous -Wound Margin Thickened & Rolled Under -Granulation Amt Large (67-100%) -Granulation Quality Red -Necrosis Amt None Present (0 %) -Structure Exposed N/A -Texture (Inessa-wound Skin Appearance) Scarring -Moisture (Inessa-wound Skin Appearance) No Abnormality -Color (Inessa-wound Skin Appearance) No Abnormality -Temperature (Inessa-wound Skin No Abnormality Appearance) (Pt Warm) -Tenderness on Palpation (Inessa-wound No Skin Appearance) -Ulcer Cleansing Wound Cleanser -Foul Odor after Cleansing No -Anesthetic Used 4% Lidocaine Solution WC - Nurse 2 - General Ulcer CM Notes Start: 11/24/20 13:48 Freq: Status: Active Protocol: Activity Type Activity Date Activity User E-Sign Co-Sign Detail Recorded Client Recorded Date Recorded By Document 11/24/20 14:31 MW [id number] 11/24/20 14:34 MW 11/24/20 14:31 Wound Center Nurse 2 -Time 14:33 -Correct Patient Yes -Correct Side, Site, Position Yes -Correct Procedure Yes -Procedure Performed Yes -Type of Procedure Debridement -Clinical Debridement Subcutaneous -Tissue Removed Subcutaneous -Post Debridement (cm) - Length 1.4 -Post Debridement (cm) - Width 5.0 -Post Debridement (cm) - Depth 0.1 -Total Square (Post) (cm) 7.00 -Area of Debridement (cm) - Length 1.4 -Area of Debridement (cm) - Width 5.0 -Total Square (Area) (cm) 7.00 -Tunneling No -Undermining/Tunneling No -Circular Undermining No -Wound/Ulcer Outcome Not Healed -Ulcer Cleansing Rinsed/ Irrigated with Saline -Foul Odor after Cleansing No -Bioengineered Tissue No -Bleeding Controlled with Pressure -Offloading No -Treatment Response Procedure Tolerated Well -Debridement - Subq, 1st 20sq cm Yes Pain Scale: 0-10 Numeric Is Patient Pain Free? Yes WC - Nurse 3 - General Ulcer D/C NN Start: 11/24/20 13:48 Freq: Status: Active Protocol: Activity Type Activity Date Activity User E-Sign Co-Sign Detail Recorded Client Recorded Date Recorded By Document 11/24/20 14:39 DL [id number] 11/24/20 14:40 DL 11/24/20 14:39 Wound Care Nurse 3 #1- LEFT GROIN- POST OP -Ulcer Cleansing Rinsed/ Irrigated with Saline -Primary Dressing Applied Fibracol Plus 4x4 -Primary Dressing Covered/Secured with Dry Gauze,Other -Other Covering foam dressing -Fibracol Plus 4x4 1 Treatment Response Procedure Tolerated Well Pain Scale: 0-10 Numeric Is Patient Pain Free? Yes WC - Visit Discharge Discharge Condition Stable Ambulatory Status Ambulatory Transportation Private Auto Additional Wound Wound debrided: Left groin ulcer Laterality: Left Type of Debridement: Excisional debridement Anesthesia Used: 4% Lidocaine Solution Depth: in the subcutaneous layer Percentage of wound debrided: 100 Instrument Used: 5mm curette Tissue Removed: Slough and devitalized tissue Severity: Fat Layer Exposed Amount of bleeding with debridement: Mild Bleeding Controlled with: Pressure Patient tolerated procedure: Patient tolerated procedure well Assessment/Plan Assessment/Plan (1) Non-healing surgical wound of left groin: CODE(S): T81.89XA - Other complications of procedures, not elsewhere classified, initial encounter PLAN: Debridement done as documented above, procedure was well-tolerated. Wound care will consist of Moistened Fibrocal plus covered by gauze and silver cell rotate between the 2 change twice daily and as needed. This dressing will also be covered by [place] SAP border dressing to help with excess moisture and maceration. He would benefit from Intradry to place in his pannus folds to prevent the skin on skin friction that gets worse with the warmer weather. Optimal diabetes control again was discussed continue increase protein intake. His questions were answered and he was advised to call with any further questions or concerns. Follow-up in 3 weeks at the wound healing center or sooner if needed. Since he is still having delayed wound healing would like maren ayala to have surgical consult again as his nonhealing wound has been present for over a year now. This note was generated with [employer] dictation software. It may contain incorrect words, spelling, and punctuation that were not noted in checking the note before signing. (2) Abdominal panniculus: CODE(S): E65 - Localized adiposity (3) Type 2 diabetes mellitus: CODE(S): E11.9 - Type 2 diabetes mellitus without complications QUALIFIERS: Qualified Code(s): L98.499 - Non-pressure chronic ulcer of skin of other sites with unspecified severity (4) Morbid obesity: CODE(S): E66.01 - Morbid (severe) obesity due to excess calories
[2020-12-15 13:37] VITALS: BP 103/57; PULSE 89; RESP 22; TEMP 36.8
--- NOTE | 2020-12-15 19:43 | PCM.WC.PN ---
History of Present Illness Date of Service: 12/15/20 Chief Complaint: Nonhealing wound status post surgical excision of necrotizing fasciitis left groin History of Wound: 46-year-old white male who presents to the wound healing center today with complaint of left groin ulceration status post surgical excision of necrotizing fasciitis. He is a past medical history which is significant for that of type 2 diabetes mellitus, gout, diabetic neuropathy, schizophrenia, bilateral lymphedema, and schizophrenia. The patient states that what initially started as a pimple in his left groin progressed to necrotizing fasciitis and he had to have this surgically debrided in April 2017. He was [facility] to [facility] and then [facility] for 6 weeks afterwards. He states that the groin ulcer which extends to his left lower abdomen has been slowly improving and he has been doing daily Aquacel AG dressings with an ABD for the drainage. He does state that he has had 3 wound vacs in the past which were unable to be utilized due to the location of his wound. He denies any foul-smelling discharge or systemic signs of infection at this time. The patient otherwise denies any fever, chills, nausea, vomiting, shortness of breath, chest pain or pressure, palpitations, orthopnea, syncope or presyncopal episodes. Progress of Wound: Stable, no new concerns, patient is doing better with the [place] SAP foam dressings, states that his recent A1c was 5.5, given the delayed wound healing, will switch his primary wound covering to Promogran Objective Data Objective Data Vital Signs: Vital Signs Temp Pulse Resp BP 98.3 F 89 22 H 103/57 L 12/15/20 13:37 12/15/20 13:37 12/15/20 13:37 12/15/20 13:37 Weight: 400 lb Charges/Coding Procedures Integumentary 111xxx-113xx: [id number] Jessica subq tissue 20 sq cm/< Physical Exam Const alert and oriented x3 General Appearance: cooperative HEENT normocephalic Head and Scalp: atraumatic Eyes PERRL Lymph Lymphatic: no lymphedema noted Resp normal respiratory effort Cardio regular rate GI non-tender GI Narrative: Obese abdomen Palpation: soft Extremity normal capillary refill Skin Wound Narrative: Left medial groin ulcer is pink without any signs of infection at this time, small amount of slough and maceration at wound edges Neuro CN's II-XII intact bilaterally Psych Thought Process: normal thought process Debridement Note Debridement Note Post-Debridement Measurements and Additional Note: Post-Debridement Measurements/Treatment WC - Nurse 1 - General Ulcer Assessment Start: 11/24/20 13:48 Freq: Status: Active Protocol: FRANKY Activity Type Activity Date Activity User E-Sign Co-Sign Detail Recorded Client Recorded Date Recorded By Document 11/24/20 13:50 DL [id number] 11/24/20 13:56 DL Document 12/15/20 13:37 DL [id number] 12/15/20 13:43 DL 11/24/20 12/15/20 13:50 13:37 WC - Today's Visit Information Type of service Follow-up Visit Follow-up Visit (Physician/UTILIZATION MANAGEMENT RN (Physician/UTILIZATION MANAGEMENT RN ) ) Arrival Mode Ambulatory Ambulatory Transfer Assistance None None Patient Identification Verified (Name & Yes Yes ) Patient Requires Transmission-Based No No Precautions Vital Signs Temperature (97.8 F-99.1 F) 98.7 F 98.3 F Temperature Source Temporal Temporal Pulse Rate (60-100) 88 89 Pulse Location Monitor Monitor Respiratory Rate (12-18) 20 H 22 H Respiratory rate source Observation Observation Blood Pressure (90/60-120/80) 141/73 H 103/57 L Blood Pressure Mean (mm Hg) 95 72 Source Monitor Monitor History Since Last Visit- (Skip if this is Patient's initial visit) Have you changed medications since your No No last visit? Any new allergies or adverse reactions No No Had a fall/change in ADL's that may No No increase risk of falls Signs or symptoms of abuse and/or No neglect since last visit Have you been in the hospital since your No No last visit? Has dressing in place as prescribed Yes Yes Has compression in place as prescribed N/A N/A Has offloadiing in place as prescribed N/A N/A Experienced any changes in pain level or No No management Pain Scale: 0-10 Numeric Is Patient Pain Free? Yes Yes RAMÓN - Nurse 1 - General Ulcer Measurement Start: 11/24/20 13:48 Freq: Status: Active Protocol: Activity Type Activity Date Activity User E-Sign Co-Sign Detail Recorded Client Recorded Date Recorded By Document 11/24/20 13:50 DL [id number] 11/24/20 13:56 DL Document 12/15/20 13:37 DL [id number] 12/15/20 13:43 DL 11/24/20 12/15/20 13:50 13:37 Wound Center Nurse 1 #1- LEFT GROIN- POST OP -Current Size (cm) - Length 1 1 -Current Size (cm) - Width 3.5 4.8 -Current Size (cm) - Depth 0.3 0.2 -Total Square Cm 3.5 4.8 -Photo Taken No No -Exudate Amt Small Small -Exudate Type Serosanguineous Serosanguineous -Wound Margin Thickened & Thickened & Rolled Under Rolled Under -Granulation Amt Large (67-100%) Large (67-100%) -Granulation Quality [place],Red -Necrosis Amt None Present (0 Small (1-33%) %) -Necrotic Tissue Type Adherent Slough -Structure Exposed N/A N/A -Texture (Inessa-wound Skin Appearance) Scarring Scarring -Moisture (Inessa-wound Skin Appearance) No Abnormality Maceration -Color (Inessa-wound Skin Appearance) No Abnormality No Abnormality -Temperature (Inessa-wound Skin No Abnormality No Abnormality Appearance) (Pt Warm) (Pt Warm) -Tenderness on Palpation (Inessa-wound No No Skin Appearance) -Ulcer Cleansing Wound Cleanser Wound Cleanser -Foul Odor after Cleansing No No -Anesthetic Used 4% Lidocaine 4% Lidocaine Solution Solution WC - Nurse 2 - General Ulcer CM Notes Start: 11/24/20 13:48 Freq: Status: Active Protocol: Activity Type Activity Date Activity User E-Sign Co-Sign Detail Recorded Client Recorded Date Recorded By Document 11/24/20 14:31 MW [id number] 11/24/20 14:34 MW Document 12/15/20 13:54 MW [id number] 12/15/20 14:00 MW 11/24/20 12/15/20 14:31 13:54 Wound Center Nurse 2 #1- LEFT GROIN- POST OP -Time 14:33 13:54 -Correct Patient Yes Yes -Correct Side, Site, Position Yes Yes -Correct Procedure Yes Yes -Procedure Performed Yes Yes -Type of Procedure Debridement Debridement -Clinical Debridement Subcutaneous Subcutaneous -Tissue Removed Subcutaneous Subcutaneous -Post Debridement (cm) - Length 1.4 1.5 -Post Debridement (cm) - Width 5.0 5.0 -Post Debridement (cm) - Depth 0.1 0.1 -Total Square (Post) (cm) 7.00 7.50 -Area of Debridement (cm) - Length 1.4 1.5 -Area of Debridement (cm) - Width 5.0 5.0 -Total Square (Area) (cm) 7.00 7.50 -Tunneling No No -Undermining/Tunneling No No -Circular Undermining No No -Wound/Ulcer Outcome Not Healed Not Healed -Ulcer Cleansing Rinsed/ Rinsed/ Irrigated with Irrigated with Saline Saline -Foul Odor after Cleansing No No -Bioengineered Tissue No No -Bleeding Controlled with Pressure Pressure -Offloading No No -Treatment Response Procedure Procedure Tolerated Well Tolerated Well -Debridement - Subq, 1st 20sq cm Yes Yes Pain Scale: 0-10 Numeric Is Patient Pain Free? Yes - Nurse 3 - General Ulcer D/C NN Start: 11/24/20 13:48 Freq: Status: Active Protocol: Activity Type Activity Date Activity User E-Sign Co-Sign Detail Recorded Client Recorded Date Recorded By Document 11/24/20 14:39 DL [id number] 11/24/20 14:40 DL Document 12/15/20 15:15 AK [id number] 12/15/20 15:16 AK 11/24/20 12/15/20 14:39 15:15 Wound Care Nurse 3 #1- LEFT GROIN- POST OP -Ulcer Cleansing Rinsed/ Rinsed/ Irrigated with Irrigated with Saline Saline -Foul Odor after Cleansing No -Negative Pressure Wound Therapy N/A -Primary Dressing Applied Fibracol Plus Mepilex Border, 4x4 Promogran, Silvercel -Primary Dressing Covered/Secured with Dry Gauze,Other -Other Covering foam dressing -Fibracol Plus 4x4 1 -Mepilex Border 1 -Promogran 1 -Silvercel 0 Treatment Response Procedure Tolerated Well Pain Scale: 0-10 Numeric Is Patient Pain Free? Yes - Visit Discharge Discharge Condition Stable Ambulatory Status Ambulatory Transportation Private Auto Additional Wound Wound debrided: Left groin ulcer Laterality: Left Type of Debridement: Excisional debridement Anesthesia Used: 4% Lidocaine Solution Depth: in the subcutaneous layer Percentage of wound debrided: 100 Instrument Used: 5mm curette Tissue Removed: Slough and devitalized tissue Severity: Fat Layer Exposed Amount of bleeding with debridement: Mild Bleeding Controlled with: Pressure Patient tolerated procedure: Patient tolerated procedure well Assessment/Plan Assessment/Plan (1) Non-healing surgical wound of left groin: CODE(S): T81.89XA - Other complications of procedures, not elsewhere classified, initial encounter PLAN: Debridement done as documented above, procedure was well-tolerated. Wound care will consist of promogran covered by gauze and silver cell rotate between the 2 change twice daily and as needed. This dressing will also be covered by [place] [employer] SAP border dressing to help with excess moisture and maceration. He would benefit from Intradry to place in his pannus folds to prevent the skin on skin friction that gets worse with the warmer weather. Optimal diabetes control again was discussed continue increase protein intake. His questions were answered and he was advised to call with any further questions or concerns. Follow-up in 2 weeks at the wound healing center or sooner if needed. Since he is still having delayed wound healing would like patient to have surgical consult again as his nonhealing wound has been present for over a year now. This note was generated with [employer]str[employer] dictation software. It may contain incorrect words, spelling, and punctuation that were not noted in checking the note before signing. (2) Abdominal panniculus: CODE(S): E65 - Localized adiposity (3) Type 2 diabetes mellitus: CODE(S): E11.9 - Type 2 diabetes mellitus without complications QUALIFIERS: Qualified Code(s): L98.499 - Non-pressure chronic ulcer of skin of other sites with unspecified severity (4) Morbid obesity: CODE(S): E66.01 - Morbid (severe) obesity due to excess calories
== END 2020-12-20 23:59 ==
LOC: WC 13:45
PROVIDERS: Family Provider Family Medicine; PCP Family Medicine; Referring Provider Nurse Practitioner Family; Visit Provider Nurse Practitioner Family
DX: T81.89XA Other complications of procedures, not elsewhere classified, initial encounter (principal); L98.492 Non-pressure chronic ulcer of skin of other sites with fat layer exposed; E11.40 Type 2 diabetes mellitus with diabetic neuropathy, unspecified; F20.9 Schizophrenia, unspecified; I89.0 Lymphedema, not elsewhere classified; M10.9 Gout, unspecified; E66.01 Morbid (severe) obesity due to excess calories; Z79.4 Long term (current) use of insulin; Z79.899 Other long term (current) drug therapy; Z87.39 Personal history of other diseases of the musculoskeletal system and connective tissue
CPT/HCPCS: 11042

== ENCOUNTER 2021-01-12 13:30 | Outpatient (RCR) | payer MEDICARE, MEDICAID, SELFPAY ==
[2020-12-21 00:26] VITALS: BP 103/57; PULSE 89; RESP 22; TEMP 36.8
[2020-12-29 13:37] VITALS: BP 122/69; PULSE 100; RESP 17; TEMP 36.2
--- NOTE | 2020-12-29 17:16 | PN.PCM_ITS ---
History of Present Illness Date of Service: 12/29/20 Chief Complaint: Nonhealing wound status post surgical excision of necrotizing fasciitis left groin History of Wound: 46-year-old white male who presents to the wound healing center today with complaint of left groin ulceration status post surgical excision of necrotizing fasciitis. He is a past medical history which is significant for that of type 2 diabetes mellitus, gout, diabetic neuropathy, schizophrenia, bilateral lymphedema, and schizophrenia. The patient states that what initially started as a pimple in his left groin progressed to necrotizing fasciitis and he had to have this surgically debrided in April 2017. He was admitted to [facility] for 2 weeks and then [facility] for 6 weeks afterwards. He states that the groin ulcer which extends to his left lower abdomen has been slowly improving and he has been doing daily Aquacel AG dressings with an ABD for the drainage. He does state that he has had 3 wound vacs in the past which were unable to be utilized due to the location of his wound. He denies any foul-smelling discharge or systemic signs of infection at this time. The patient otherwise denies any fever, chills, nausea, vomiting, shortness of breath, chest pain or pressure, palpitations, orthopnea, syncope or presyncopal episodes. Progress of Wound: Stable?site has delayed wound healing, will change his wound care to Promogran cover with foam dressing twice a day Objective Data Objective Data Vital Signs: Vital Signs Temp Pulse Resp BP 97.1 F L 100 17 122/69 H 12/29/20 13:37 12/29/20 13:37 12/29/20 13:37 12/29/20 13:37 Weight: 400 lb Charges/Coding Procedures Integumentary 111xxx-113xx: [id number] Jessica subq tissue 20 sq cm/< Physical Exam Const alert and oriented x3 General Appearance: cooperative HEENT normocephalic Head and Scalp: atraumatic Eyes PERRL Lymph Lymphatic: no lymphedema noted Resp normal respiratory effort Cardio regular rate GI non-tender GI Narrative: Obese abdomen Palpation: soft Extremity normal capillary refill Skin Wound Narrative: Left medial groin ulcer is pink without any signs of infection at this time, small amount of slough and maceration at wound edges Neuro CN's II-XII intact bilaterally Psych Thought Process: normal thought process Debridement Note Debridement Note Wound debrided: Left groin ulcer Laterality: Left Type of Debridement: Excisional debridement Anesthesia Used: 5% Lidocaine Gel Depth: Down to and including healthy tissue and in the subcutaneous layer Percentage of wound debrided: 100 Instrument Used: 5mm curette Tissue Removed: Slough and devitalized tissue Severity: Fat Layer Exposed Amount of bleeding with debridement: Mild Bleeding Controlled with: Pressure Patient tolerated procedure: Patient tolerated procedure well Post-Debridement Measurements and Additional Note: Post-Debridement Measurements/Treatment RAMÓN - Nurse 1 - General Ulcer Assessment Start: 12/29/20 13:35 Freq: Status: Active Protocol: FRANKY Activity Type Activity Date Activity User E-Sign Co-Sign Detail Recorded Client Recorded Date Recorded By Document 12/29/20 13:37 FOREIGN [id number] 12/29/20 13:40 FOREIGN 12/29/20 13:37 RAMÓN Campos Today's Visit Information Type of service Follow-up Visit (Physician/PEDICAB DRIVER ) Arrival Mode Ambulatory Transfer Assistance None Patient Identification Verified (Name & Yes ) Patient Requires Transmission-Based No Precautions Safety Precautions NA Vital Signs Temperature (97.8 F-99.1 F) 97.1 F L Temperature Source Temporal Pulse Rate (60-100) 100 Pulse Location Monitor Respiratory Rate (12-18) 17 Respiratory rate source Observation Blood Pressure (90/60-120/80) 122/69 H Blood Pressure Mean (mm Hg) 86 Source Monitor Position Sitting Blood Pressure Location Left Arm History Since Last Visit- (Skip if this is Patient's initial visit) Have you changed medications since your No last visit? Any new allergies or adverse reactions No Had a fall/change in ADL's that may No increase risk of falls Signs or symptoms of abuse and/or No neglect since last visit Have you been in the hospital since your No last visit? Has dressing in place as prescribed Yes Has compression in place as prescribed N/A Has offloadiing in place as prescribed N/A Experienced any changes in pain level or No management Left Footwear Regular Shoe Right Footwear Regular Shoe - Nurse 1 - General Ulcer Measurement Start: 12/29/20 13:35 Freq: Status: Active Protocol: Activity Type Activity Date Activity User E-Sign Co-Sign Detail Recorded Client Recorded Date Recorded By Document 12/29/20 13:37 FOREIGN [id number] 12/29/20 13:40 FOREIGN 12/29/20 13:37 Wound Center Nurse 1 #1- LEFT GROIN- POST OP -Current Size (cm) - Length 0.2 -Current Size (cm) - Width 6 -Current Size (cm) - Depth 0.1 -Total Square Cm 1.2 -Exudate Amt Medium -Exudate Type Serosanguineous -Wound Margin Distinct, Outline Attached -Granulation Amt Medium (34-66%) -Necrosis Amt Medium (34-66%) -Necrotic Tissue Type Adherent Slough -Texture (Inessa-wound Skin Appearance) Assessed, Scarring -Moisture (Inessa-wound Skin Appearance) Assessed, Maceration -Color (Inessa-wound Skin Appearance) Assessed -Temperature (Inessa-wound Skin No Abnormality Appearance) (Pt Warm) -Ulcer Cleansing Rinsed/ Irrigated with Saline -Foul Odor after Cleansing No -Anesthetic Used 5% Lidocaine Gel WC - Nurse 2 - General Ulcer CM Notes Start: 12/29/20 13:35 Freq: Status: Active Protocol: Activity Type Activity Date Activity User E-Sign Co-Sign Detail Recorded Client Recorded Date Recorded By Document 12/29/20 13:59 PR [id number] 12/29/20 14:03 PR 12/29/20 13:59 Wound Center Nurse 2 -Time 13:59 -Correct Patient Yes -Correct Side, Site, Position Yes -Correct Procedure Yes -Procedure Performed Yes -Type of Procedure Debridement -Clinical Debridement Subcutaneous -Tissue Removed Subcutaneous -Post Debridement (cm) - Length 1 -Post Debridement (cm) - Width 6.5 -Post Debridement (cm) - Depth 0.1 -Total Square (Post) (cm) 6.5 -Area of Debridement (cm) - Length 6.5 -Area of Debridement (cm) - Width 0.1 -Total Square (Area) (cm) 0.65 -Tunneling No -Undermining/Tunneling No -Circular Undermining No -Wound/Ulcer Outcome Not Healed -Ulcer Cleansing Rinsed/ Irrigated with Saline -Foul Odor after Cleansing No -Bioengineered Tissue No -Bleeding Controlled with Pressure -Offloading No -Treatment Response Procedure Tolerated Well -Debridement - Subq, 1st 20sq cm Yes Pain Scale: 0-10 Numeric Is Patient Pain Free? Yes Assessment/Plan Assessment/Plan (1) Non-healing surgical wound of left groin: CODE(S): T81.89XA - Other complications of procedures, not elsewhere classified, initial encounter PLAN: Debridement done as documented above, procedure was well-tolerated. Wound care will consist of promogran covered by gauze change twice daily and as needed. This dressing will also be covered by [place] SAP border dressing to help with excess moisture and maceration. He would benefit from Intradry to place in his pannus folds to prevent the skin on skin friction that gets worse with the warmer weather. Optimal diabetes control again was discussed continue increase protein intake. His questions were answered and he was advised to call with any further questions or concerns. Follow-up in 2 weeks at the wound healing center or sooner if needed. Since he is still having delayed wound healing would like patient to have surgical consult again as his nonhealing wound has been present for over a year now. This note was generated with [employer] dictation software. It may contain incorrect words, spelling, and punctuation that were not noted in checking the note before signing. (2) Abdominal panniculus: CODE(S): E65 - Localized adiposity (3) Type 2 diabetes mellitus: CODE(S): E11.9 - Type 2 diabetes mellitus without complications QUALIFIERS: Qualified Code(s): L98.499 - Non-pressure chronic ulcer of skin of other sites with unspecified severity (4) Morbid obesity: CODE(S): E66.01 - Morbid (severe) obesity due to excess calories
[2021-01-12 13:33] VITALS: BP 129/67; PULSE 82; RESP 22; TEMP 36.1
--- NOTE | 2021-01-12 21:31 | PN.PCM_ITS ---
History of Present Illness Date of Service: 01/12/21 Chief Complaint: Nonhealing wound status post surgical excision of necrotizing fasciitis left groin History of Wound: 46-year-old white male who presents to the wound healing center today with complaint of left groin ulceration status post surgical excision of necrotizing fasciitis. He is a past medical history which is significant for that of type 2 diabetes mellitus, gout, diabetic neuropathy, schizophrenia, bilateral lymphedema, and schizophrenia. The patient states that what initially started as a pimple in his left groin progressed to necrotizing fasciitis and he had to have this surgically debrided in April 2017. He was admitted to the [facility] for 2 weeks and then [facility] for 6 weeks afterwards. He states that the groin ulcer which extends to his left lower abdomen has been slowly improving and he has been doing daily Aquacel AG dressings with an ABD for the drainage. He does state that he has had 3 wound vacs in the past which were unable to be utilized due to the location of his wound. He denies any foul-smelling discharge or systemic signs of infection at this time. The patient otherwise denies any fever, chills, nausea, vomiting, shortness of breath, chest pain or pressure, palpitations, orthopnea, syncope or presyncopal episodes. Progress of Wound: Stable?site has delayed wound healing with more maceration, will change his wound care to Promogran cover with silver cell and foam dressing twice a day Objective Data Objective Data Vital Signs: Vital Signs Temp Pulse Resp BP 96.9 F L 82 22 H 129/67 H 01/12/21 13:33 01/12/21 13:33 01/12/21 13:33 01/12/21 13:33 Weight: 400 lb Charges/Coding Procedures Integumentary [id number]: [id number] Jessica subq tissue 20 sq cm/< Physical Exam Const alert and oriented x3 General Appearance: cooperative HEENT normocephalic Head and Scalp: atraumatic Eyes PERRL Lymph Lymphatic: no lymphedema noted Resp normal respiratory effort Cardio regular rate GI non-tender GI Narrative: Obese abdomen Palpation: soft Extremity normal capillary refill Skin Wound Narrative: Left medial groin ulcer is pink without any signs of infection at this time, small amount of slough and maceration at wound edges Neuro CN's II-XII intact bilaterally Psych Thought Process: normal thought process Debridement Note Debridement Note Post-Debridement Measurements and Additional Note: Post-Debridement Measurements/Treatment - Nurse 1 - General Ulcer Assessment Start: 12/29/20 13:35 Freq: Status: Active Protocol: FRANKY Activity Type Activity Date Activity User E-Sign Co-Sign Detail Recorded Client Recorded Date Recorded By Document 12/29/20 13:37 AK [id number] 12/29/20 13:40 AK Document 01/12/21 13:33 DL [id number] 01/12/21 13:42 DL 12/29/20 01/12/21 13:37 13:33 WC - Today's Visit Information Type of service Follow-up Visit Follow-up Visit (Physician/TANNING DRUM OPERATOR (Physician/TANNING DRUM OPERATOR ) ) Arrival Mode Ambulatory Ambulatory Transfer Assistance None None Patient Identification Verified (Name & Yes Yes ) Patient Requires Transmission-Based No No Precautions Safety Precautions NA Vital Signs Temperature (97.8 F-99.1 F) 97.1 F L 96.9 F L Temperature Source Temporal Temporal Pulse Rate (60-100) 100 82 Pulse Location Monitor Monitor Respiratory Rate (12-18) 17 22 H Respiratory rate source Observation Observation Blood Pressure (90/60-120/80) 122/69 H 129/67 H Blood Pressure Mean (mm Hg) 86 87 Source Monitor Position Sitting Blood Pressure Location Left Arm History Since Last Visit- (Skip if this is Patient's initial visit) Have you changed medications since your No last visit? Any new allergies or adverse reactions No Had a fall/change in ADL's that may No increase risk of falls Signs or symptoms of abuse and/or No neglect since last visit Have you been in the hospital since your No last visit? Has dressing in place as prescribed Yes Has compression in place as prescribed N/A Has offloadiing in place as prescribed N/A Experienced any changes in pain level or No management Left Footwear Regular Shoe Right Footwear Regular Shoe RAMÓN - Nurse 1 - General Ulcer Measurement Start: 12/29/20 13:35 Freq: Status: Active Protocol: Activity Type Activity Date Activity User E-Sign Co-Sign Detail Recorded Client Recorded Date Recorded By Document 12/29/20 13:37 AK [id number] 12/29/20 13:40 AK Document 01/12/21 13:33 DL [id number] 01/12/21 13:42 DL 12/29/20 01/12/21 13:37 13:33 Wound Center Nurse 1 #1- LEFT GROIN- POST OP -Current Size (cm) - Length 0.2 0.9 -Current Size (cm) - Width 6 5 -Current Size (cm) - Depth 0.1 0.4 -Total Square Cm 1.2 4.5 -Photo Taken No -Exudate Amt Medium Medium -Exudate Type Serosanguineous Serosanguineous -Wound Margin Distinct, Thickened & Outline Rolled Under Attached -Granulation Amt Medium (34-66%) Medium (34-66%) -Granulation Quality [place] -Necrosis Amt Medium (34-66%) Medium (34-66%) -Necrotic Tissue Type Adherent Slough Adherent Slough -Structure Exposed N/A -Texture (Inessa-wound Skin Appearance) Assessed, Scarring Scarring -Moisture (Inessa-wound Skin Appearance) Assessed, Maceration Maceration -Color (Inessa-wound Skin Appearance) Assessed No Abnormality -Temperature (Inessa-wound Skin No Abnormality No Abnormality Appearance) (Pt Warm) (Pt Warm) -Tenderness on Palpation (Inessa-wound No Skin Appearance) -Ulcer Cleansing Rinsed/ Wound Cleanser Irrigated with Saline -Foul Odor after Cleansing No No -Anesthetic Used 5% Lidocaine 4% Lidocaine Gel Solution WC - Nurse 2 - General Ulcer CM Notes Start: 12/29/20 13:35 Freq: Status: Active Protocol: Activity Type Activity Date Activity User E-Sign Co-Sign Detail Recorded Client Recorded Date Recorded By Document 12/29/20 13:59 TN [id number] 12/29/20 14:03 TN Document 01/12/21 14:04 [id number] 01/12/21 14:06 12/29/20 01/12/21 13:59 14:04 Wound Center Nurse 2 #1- LEFT GROIN- POST OP -Time 13:59 14:04 -Correct Patient Yes Yes -Correct Side, Site, Position Yes Yes -Correct Procedure Yes Yes -Procedure Performed Yes Yes -Type of Procedure Debridement Debridement -Clinical Debridement Subcutaneous Subcutaneous -Tissue Removed Subcutaneous Subcutaneous -Post Debridement (cm) - Length 1 1.1 -Post Debridement (cm) - Width 6.5 5.0 -Post Debridement (cm) - Depth 0.1 0.1 -Total Square (Post) (cm) 6.5 5.50 -Area of Debridement (cm) - Length 6.5 1.1 -Area of Debridement (cm) - Width 0.1 5.0 -Total Square (Area) (cm) 0.65 5.50 -Tunneling No No -Undermining/Tunneling No No -Circular Undermining No No -Wound/Ulcer Outcome Not Healed Not Healed -Ulcer Cleansing Rinsed/ Rinsed/ Irrigated with Irrigated with Saline Saline -Foul Odor after Cleansing No No -Bioengineered Tissue No No -Bleeding Controlled with Pressure Pressure -Offloading No No -Treatment Response Procedure Procedure Tolerated Well Tolerated Well -Debridement - Subq, 1st 20sq cm Yes Yes Pain Scale: 0-10 Numeric Is Patient Pain Free? Yes Yes Additional Wound Wound debrided: Left groin ulcer Laterality: Left Type of Debridement: Selective debridement Anesthesia Used: 5% Lidocaine Gel Depth: Down to and including healthy tissue and in the subcutaneous layer Percentage of wound debrided: 100 Instrument Used: 5mm curette Tissue Removed: Slough and devitalized tissue Severity: Fat Layer Exposed Amount of bleeding with debridement: Mild Bleeding Controlled with: Pressure Patient tolerated procedure: Patient tolerated procedure well Assessment/Plan Assessment/Plan (1) Non-healing surgical wound of left groin: CODE(S): T81.89XA - Other complications of procedures, not elsewhere classified, initial encounter PLAN: Debridement done as documented above, procedure was well-tolerated. Wound care will consist of promogran covered by silvercell and change twice daily and as needed. This dressing will also be covered by [place] SAP border dressing to help with excess moisture and maceration. He would benefit from Intradry to place in his pannus folds to prevent the skin on skin friction that gets worse with the warmer weather. Optimal diabetes control again was discussed continue increase protein intake. His questions were answered and he was advised to call with any further questions or concerns. Follow-up in 2 weeks at the wound healing center or sooner if needed. Since he is still having delayed wound healing would like patient to have surgical consult again as his nonhealing wound has been present for over a year now. This note was generated with [employer] software. It may contain incorrect words, spelling, and punctuation that were not noted in checking the note before signing. (2) Abdominal panniculus: CODE(S): E65 - Localized adiposity (3) Type 2 diabetes mellitus: CODE(S): E11.9 - Type 2 diabetes mellitus without complications QUALIFIERS: Qualified Code(s): L98.499 - Non-pressure chronic u lcer of skin of other sites with unspecified severity (4) Morbid obesity: CODE(S): E66.01 - Morbid (severe) obesity due to excess calories
== END 2021-01-19 23:59 ==
LOC: WC 13:30
PROVIDERS: Family Provider Family Medicine; PCP Family Medicine; Referring Provider Nurse Practitioner Family; Visit Provider Nurse Practitioner Family
DX: T81.89XA Other complications of procedures, not elsewhere classified, initial encounter (principal); L98.492 Non-pressure chronic ulcer of skin of other sites with fat layer exposed; E11.40 Type 2 diabetes mellitus with diabetic neuropathy, unspecified; I89.0 Lymphedema, not elsewhere classified; M10.9 Gout, unspecified; F20.9 Schizophrenia, unspecified; E66.01 Morbid (severe) obesity due to excess calories; Z79.4 Long term (current) use of insulin; Z79.899 Other long term (current) drug therapy
CPT/HCPCS: 11042

== ENCOUNTER 2021-02-09 13:30 | Outpatient (RCR) | payer MEDICARE, MEDICAID, SELFPAY ==
[2021-01-20 00:21] VITALS: BP 129/67; PULSE 82; RESP 22; TEMP 36.1
[2021-01-26 13:32] VITALS: BP 119/48; PULSE 94; RESP 22; TEMP 36.4
--- NOTE | 2021-01-26 16:22 | PCM.WC.PN ---
History of Present Illness Date of Service: 01/26/21 Chief Complaint: Nonhealing wound status post surgical excision of necrotizing fasciitis left groin History of Wound: 46-year-old white male who presents to the wound healing center today with complaint of left groin ulceration status post surgical excision of necrotizing fasciitis. He is a past medical history which is significant for that of type 2 diabetes mellitus, gout, diabetic neuropathy, schizophrenia, bilateral lymphedema, and schizophrenia. The patient states that what initially started as a pimple in his left groin progressed to necrotizing fasciitis and he had to have this surgically debrided in April 2017. He was admitted to [facility] for 2 weeks and then [facility] for 6 weeks afterwards. He states that the groin ulcer which extends to his left lower abdomen has been slowly improving and he has been doing daily Aquacel AG dressings with an ABD for the drainage. He does state that he has had 3 wound vacs in the past which were unable to be utilized due to the location of his wound. He denies any foul-smelling discharge or systemic signs of infection at this time. The patient otherwise denies any fever, chills, nausea, vomiting, shortness of breath, chest pain or pressure, palpitations, orthopnea, syncope or presyncopal episodes. Progress of Wound: Stable, no new concerns, patient still has delayed wound healing and given the fact that the wound has been present since 2018 and has stalled even with multiple treatment modalities, will refer patient back for a surgery consult. Objective Data Objective Data Vital Signs: Vital Signs Temp Pulse Resp BP 97.6 F L 94 22 H 119/48 L 01/26/21 13:32 01/26/21 13:32 01/26/21 13:32 01/26/21 13:32 Weight: 400 lb Charges/Coding Procedures Integumentary 111xxx-113xx: [id number] Jessica subq tissue 20 sq cm/< Physical Exam Const alert and oriented x3 General Appearance: cooperative HEENT normocephalic Head and Scalp: atraumatic Eyes PERRL Lymph Lymphatic: no lymphedema noted Resp normal respiratory effort Cardio regular rate GI non-tender GI Narrative: Obese abdomen Palpation: soft Extremity normal capillary refill Skin Wound Narrative: Left medial groin ulcer is pink without any signs of infection at this time, small amount of slough and maceration at wound edges Neuro CN's II-XII intact bilaterally Psych Thought Process: normal thought process Debridement Note Debridement Note Wound debrided: Left groin ulcer Laterality: Left Type of Debridement: Excisional debridement Anesthesia Used: 5% Lidocaine Gel Depth: Down to and including healthy tissue and in the subcutaneous layer Percentage of wound debrided: 100 Instrument Used: 5mm curette Tissue Removed: Slough and devitalized tissue Severity: Fat Layer Exposed Amount of bleeding with debridement: Mild Bleeding Controlled with: Pressure Patient tolerated procedure: Patient tolerated procedure well Post-Debridement Measurements and Additional Note: Post-Debridement Measurements/Treatment - Nurse 1 - General Ulcer Assessment Start: 01/26/21 13:32 Freq: Status: Active Protocol: FRANKY Activity Type Activity Date Activity User E-Sign Co-Sign Detail Recorded Client Recorded Date Recorded By Document 01/26/21 13:32 DL [id number] 01/26/21 13:46 DL 01/26/21 13:32 WC - Today's Visit Information Type of service Follow-up Visit (Physician/SALON SALES CONSULTANT ) Arrival Mode Ambulatory Transfer Assistance None Patient Identification Verified (Name & Yes ) Patient Requires Transmission-Based No Precautions Vital Signs Temperature (97.8 F-99.1 F) 97.6 F L Temperature Source Temporal Pulse Rate (60-100) 94 Pulse Location Monitor Respiratory Rate (12-18) 22 H Respiratory rate source Observation Blood Pressure (90/60-120/80) 119/48 L Blood Pressure Mean (mm Hg) 71 Source Monitor History Since Last Visit- (Skip if this is Patient's initial visit) Have you changed medications since your No last visit? Any new allergies or adverse reactions No Had a fall/change in ADL's that may No increase risk of falls Signs or symptoms of abuse and/or No neglect since last visit Have you been in the hospital since your No last visit? Has dressing in place as prescribed Yes Has compression in place as prescribed N/A Has offloadiing in place as prescribed No Experienced any changes in pain level or No management Pain Scale: 0-10 Numeric Is Patient Pain Free? Yes Beth Nurse 1 - General Ulcer Measurement Start: 01/26/21 13:32 Freq: Status: Active Protocol: Activity Type Activity Date Activity User E-Sign Co-Sign Detail Recorded Client Recorded Date Recorded By Document 01/26/21 13:32 DL [id number] 01/26/21 13:46 DL 01/26/21 13:32 Wound Center Nurse 1 #10 L Abd Fold -Current Size (cm) - Length 0.4 -Current Size (cm) - Width 3 -Current Size (cm) - Depth 0.2 -Total Square Cm 1.2 -Photo Taken Yes -Exudate Amt Medium -Wound Margin Distinct, Outline Attached -Granulation Amt Large (67-100%) -Granulation Quality [place],Red -Necrosis Amt Small (1-33%) -Necrotic Tissue Type Adherent Slough -Structure Exposed N/A -Texture (Inessa-wound Skin Appearance) Scarring -Moisture (Inessa-wound Skin Appearance) Maceration -Color (Inessa-wound Skin Appearance) No Abnormality -Temperature (Inessa-wound Skin No Abnormality Appearance) (Pt Warm) -Ulcer Cleansing Wound Cleanser -Foul Odor after Cleansing No -Anesthetic Used 4% Lidocaine Solution #9 L Lat Hip -Current Size (cm) - Length 0.6 -Current Size (cm) - Width 0.9 -Current Size (cm) - Depth 0.2 -Total Square Cm 0.54 -Photo Taken Yes -Exudate Amt Medium -Exudate Type Serosanguineous -Wound Margin Distinct, Outline Attached -Granulation Amt Large (67-100%) -Granulation Quality [place],Red -Necrosis Amt Small (1-33%) -Necrotic Tissue Type Adherent Slough -Structure Exposed N/A -Texture (Inessa-wound Skin Appearance) Scarring -Moisture (Inessa-wound Skin Appearance) No Abnormality, Maceration -Color (Inessa-wound Skin Appearance) No Abnormality -Temperature (Inessa-wound Skin No Abnormality Appearance) (Pt Warm) -Tenderness on Palpation (Inessa-wound No Skin Appearance) -Ulcer Cleansing Wound Cleanser -Foul Odor after Cleansing No -Anesthetic Used 4% Lidocaine Solution #1- LEFT GROIN- POST OP -Current Size (cm) - Length 1 -Current Size (cm) - Width 5.2 -Current Size (cm) - Depth 0.4 -Total Square Cm 5.2 -Photo Taken No -Exudate Amt Medium -Exudate Type Serosanguineous -Wound Margin Distinct, Outline Attached -Granulation Amt Large (67-100%) -Necrosis Amt Small (1-33%) -Necrotic Tissue Type Adherent Slough -Structure Exposed N/A -Texture (Inessa-wound Skin Appearance) Scarring -Moisture (Inessa-wound Skin Appearance) Maceration -Color (Inessa-wound Skin Appearance) No Abnormality -Temperature (Inessa-wound Skin No Abnormality Appearance) (Pt Warm) -Tenderness on Palpation (Inessa-wound No Skin Appearance) -Ulcer Cleansing Wound Cleanser -Foul Odor after Cleansing Yes, Due to Product Use -Anesthetic Used 5% Lidocaine Gel WC - Nurse 2 - General Ulcer CM Notes Start: 01/26/21 13:32 Freq: Status: Active Protocol: Activity Type Activity Date Activity User E-Sign Co-Sign Detail Recorded Client Recorded Date Recorded By Document 01/26/21 13:55 MW [id number] 01/26/21 13:59 MW 01/26/21 13:55 Wound Center Nurse 2 #10 L Abd Fold -Time 13:55 -Correct Patient Yes -Correct Side, Site, Position Yes -Correct Procedure Yes -Procedure Performed No -Wound/Ulcer Outcome Healed- Epithelialized #9 L Lat Hip -Time 13:56 -Correct Patient Yes -Correct Side, Site, Position Yes -Correct Procedure Yes -Procedure Performed No -Post Debridement (cm) - Length 0 -Post Debridement (cm) - Width 0 -Post Debridement (cm) - Depth 0 -Total Square (Post) (cm) 0 -Wound/Ulcer Outcome Healed- Epithelialized #1- LEFT GROIN- POST OP -Time 13:56 -Correct Patient Yes -Correct Side, Site, Position Yes -Correct Procedure Yes -Procedure Performed Yes -Type of Procedure Debridement -Clinical Debridement Subcutaneous -Tissue Removed Subcutaneous -Post Debridement (cm) - Length 1.5 -Post Debridement (cm) - Width 5.8 -Post Debridement (cm) - Depth 0.1 -Total Square (Post) (cm) 8.70 -Area of Debridement (cm) - Length 1.5 -Area of Debridement (cm) - Width 5.8 -Total Square (Area) (cm) 8.70 -Tunneling No -Undermining/Tunneling No -Circular Undermining No -Wound/Ulcer Outcome Not Healed -Ulcer Cleansing Rinsed/ Irrigated with Saline -Foul Odor after Cleansing No -Bioengineered Tissue No -Bleeding Controlled with Pressure -Offloading No -Treatment Response Procedure Tolerated Well -Debridement - Subq, 1st 20sq cm Yes Assessment/Plan Assessment/Plan (1) Non-healing surgical wound of left groin: CODE(S): T81.89XA - Other complications of procedures, not elsewhere classified, initial encounter PLAN: Debridement done as documented above, procedure was well-tolerated. Wound care will consist of alternating between silver cell and Aquacel extra change twice daily and as needed. This dressing will also be covered by Monitor SAP border dressing to help with excess moisture and maceration. He would benefit from Intradry to place in his pannus folds to prevent the skin on skin friction that gets worse with the warmer weather. Optimal diabetes control again was discussed continue increase protein intake. His questions were answered and he was advised to call with any further questions or concerns. Follow-up in 2 weeks at the wound healing center or sooner if needed. Since he is still having delayed wound healing would like patient to have surgical consult again as his nonhealing wound has been present for over a year now. This note was generated with [employer] dictation software. It may contain incorrect words, spelling, and punctuation that were not noted in checking the note before signing. (2) Abdominal panniculus: CODE(S): E65 - Localized adiposity (3) Type 2 diabetes mellitus: CODE(S): E11.9 - Type 2 diabetes mellitus without complications QUALIFIERS: Qualified Code(s): L98.499 - Non-pressure chronic ulcer of skin of other sites with unspecified severity (4) Morbid obesity: CODE(S): E66.01 - Morbid (severe) obesity due to excess calories
[2021-02-09 13:40] VITALS: BP 128/85; PULSE 97; RESP 18; TEMP 36.4
--- NOTE | 2021-02-09 21:24 | PCM.WC.PN ---
History of Present Illness Date of Service: 02/09/21 Chief Complaint: Nonhealing wound status post surgical excision of necrotizing fasciitis left groin History of Wound: 46-year-old white male who presents to the wound healing center today with complaint of left groin ulceration status post surgical excision of necrotizing fasciitis. He is a past medical history which is significant for that of type 2 diabetes mellitus, gout, diabetic neuropathy, schizophrenia, bilateral lymphedema, and schizophrenia. The patient states that what initially started as a pimple in his left groin progressed to necrotizing fasciitis and he had to have this surgically debrided in April 2017. He was admitted to [facility] for 2 weeks and then [facility] for 6 weeks afterwards. He states that the groin ulcer which extends to his left lower abdomen has been slowly improving and he has been doing daily Aquacel AG dressings with an ABD for the drainage. He does state that he has had 3 wound vacs in the past which were unable to be utilized due to the location of his wound. He denies any foul-smelling discharge or systemic signs of infection at this time. The patient otherwise denies any fever, chills, nausea, vomiting, shortness of breath, chest pain or pressure, palpitations, orthopnea, syncope or presyncopal episodes. Progress of Wound: Stable, no new concerns, patient still has delayed wound healing and given the fact that the wound has been present since 2018 and has stalled even with multiple treatment modalities, will refer patient back for a surgery consult. Unfortunately, they are not currently doing elective surgeries at this time. Given his delayed wound healing will switch his wound care to AMD foam dressings change 1-2 times per day as needed. Samples were given Objective Data Objective Data Vital Signs: Vital Signs Temp Pulse Resp BP 97.6 F L 97 18 128/85 H 02/09/21 13:40 02/09/21 13:40 02/09/21 13:40 02/09/21 13:40 Weight: 400 lb Charges/Coding Procedures Integumentary 111xxx-113xx: [id number] Jessica subq tissue 20 sq cm/< Physical Exam Const alert and oriented x3 General Appearance: cooperative HEENT normocephalic Head and Scalp: atraumatic Eyes PERRL Lymph Lymphatic: no lymphedema noted Resp normal respiratory effort Cardio regular rate GI non-tender GI Narrative: Obese abdomen Palpation: soft Extremity normal capillary refill Skin Wound Narrative: Left medial groin ulcer is pink without any signs of infection at this time, small amount of slough and maceration at wound edges Neuro CN's II-XII intact bilaterally Psych Thought Process: normal thought process Debridement Note Debridement Note Wound debrided: Left groin ulcer Laterality: Left Type of Debridement: Excisional debridement Anesthesia Used: 5% Lidocaine Gel Depth: Down to and including healthy tissue and in the subcutaneous layer Percentage of wound debrided: 100 Instrument Used: 5mm curette Tissue Removed: slough and devitalized tissue Severity: Fat Layer Exposed Amount of bleeding with debridement: Mild Bleeding Controlled with: Pressure Patient tolerated procedure: Patient tolerated procedure well Post-Debridement Measurements and Additional Note: Post-Debridement Measurements/Treatment WC - Nurse 1 - General Ulcer Assessment Start: 01/26/21 13:32 Freq: Status: Active Protocol: FRANKY Activity Type Activity Date Activity User E-Sign Co-Sign Detail Recorded Client Recorded Date Recorded By Document 01/26/21 13:32 DL [id number] 01/26/21 13:46 DL Document 02/09/21 13:40 DL [id number] 02/09/21 13:47 DL 01/26/21 02/09/21 13:32 13:40 - Today's Visit Information Type of service Follow-up Visit Follow-up Visit (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 (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 ) ) Arrival Mode Ambulatory Ambulatory Transfer Assistance None None Patient Identification Verified (Name & Yes Yes ) Patient Requires Transmission-Based No No Precautions Finger Stick Blood Sugar(mg/dl) (if 113 indicated): Blood Sugar Stated by Patient Vital Signs Temperature (97.8 F-99.1 F) 97.6 F L 97.6 F L Temperature Source Temporal Temporal Pulse Rate (60-100) 94 97 Pulse Location Monitor Monitor Respiratory Rate (12-18) 22 H 18 Respiratory rate source Observation Observation Blood Pressure (90/60-120/80) 119/48 L 128/85 H Blood Pressure Mean (mm Hg) 71 99 Source Monitor Position Sitting History Since Last Visit- (Skip if this is Patient's initial visit) Have you changed medications since your No No last visit? Any new allergies or adverse reactions No No Had a fall/change in ADL's that may No No increase risk of falls Signs or symptoms of abuse and/or No No neglect since last visit Have you been in the hospital since your No No last visit? Has dressing in place as prescribed Yes Yes Has compression in place as prescribed N/A N/A Has offloadiing in place as prescribed No N/A Experienced any changes in pain level or No No management Pain Scale: 0-10 Numeric Is Patient Pain Free? Yes Yes WC - Nurse 1 - General Ulcer Measurement Start: 01/26/21 13:32 Freq: Status: Active Protocol: Activity Type Activity Date Activity User E-Sign Co-Sign Detail Recorded Client Recorded Date Recorded By Document 01/26/21 13:32 DL [id number] 01/26/21 13:46 DL Document 02/09/21 13:40 DL [id number] 02/09/21 13:47 DL 01/26/21 02/09/21 13:32 13:40 Wound Center Nurse 1 #10 L Abd Fold -Current Size (cm) - Length 0.4 -Current Size (cm) - Width 3 -Current Size (cm) - Depth 0.2 -Total Square Cm 1.2 -Photo Taken Yes -Exudate Amt Medium -Wound Margin Distinct, Outline Attached -Granulation Amt Large (67-100%) -Granulation Quality [place],Red -Necrosis Amt Small (1-33%) -Necrotic Tissue Type Adherent Slough -Structure Exposed N/A -Texture (Inessa-wound Skin Appearance) Scarring -Moisture (Inessa-wound Skin Appearance) Maceration -Color (Inessa-wound Skin Appearance) No Abnormality -Temperature (Inessa-wound Skin No Abnormality Appearance) (Pt Warm) -Ulcer Cleansing Wound Cleanser -Foul Odor after Cleansing No -Anesthetic Used 4% Lidocaine Solution #9 L Lat Hip -Current Size (cm) - Length 0.6 -Current Size (cm) - Width 0.9 -Current Size (cm) - Depth 0.2 -Total Square Cm 0.54 -Photo Taken Yes -Exudate Amt Medium -Exudate Type Serosanguineous -Wound Margin Distinct, Outline Attached -Granulation Amt Large (67-100%) -Granulation Quality [place],Red -Necrosis Amt Small (1-33%) -Necrotic Tissue Type Adherent Slough -Structure Exposed N/A -Texture (Inessa-wound Skin Appearance) Scarring -Moisture (Inessa-wound Skin Appearance) No Abnormality, Maceration -Color (Inessa-wound Skin Appearance) No Abnormality -Temperature (Inessa-wound Skin No Abnormality Appearance) (Pt Warm) -Tenderness on Palpation (Inessa-wound No Skin Appearance) -Ulcer Cleansing Wound Cleanser -Foul Odor after Cleansing No -Anesthetic Used 4% Lidocaine Solution #1- LEFT GROIN- POST OP -Current Size (cm) - Length 1 5.8 -Current Size (cm) - Width 5.2 1 -Current Size (cm) - Depth 0.4 1.1 -Total Square Cm 5.2 5.8 -Photo Taken No No -Exudate Amt Medium Medium -Exudate Type Serosanguineous Serosanguineous -Wound Margin Distinct, Distinct, Outline Outline Attached Attached -Granulation Amt Large (67-100%) Medium (34-66%) -Granulation Quality Red -Necrosis Amt Small (1-33%) Medium (34-66%) -Necrotic Tissue Type Adherent Slough Adherent Slough -Structure Exposed N/A N/A -Texture (Inessa-wound Skin Appearance) Scarring Scarring -Moisture (Inessa-wound Skin Appearance) Maceration No Abnormality -Color (Inessa-wound Skin Appearance) No Abnormality No Abnormality -Temperature (Inessa-wound Skin No Abnormality No Abnormality Appearance) (Pt Warm) (Pt Warm) -Tenderness on Palpation (Inessa-wound No No Skin Appearance) -Ulcer Cleansing Wound Cleanser Rinsed/ Irrigated with Saline -Foul Odor after Cleansing Yes, Due to Yes, Due to Product Use Product Use -Anesthetic Used 5% Lidocaine 4% Lidocaine Gel Solution WC - Nurse 2 - General Ulcer CM Notes Start: 01/26/21 13:32 Freq: Status: Active Protocol: Activity Type Activity Date Activity User E-Sign Co-Sign Detail Recorded Client Recorded Date Recorded By Document 01/26/21 13:55 MW [id number] 01/26/21 13:59 MW Document 02/09/21 14:12 MW [id number] 02/09/21 14:15 MW 01/26/21 02/09/21 13:55 14:12 Wound Center Nurse 2 #10 L Abd Fold -Time 13:55 -Correct Patient Yes -Correct Side, Site, Position Yes -Correct Procedure Yes -Procedure Performed No -Wound/Ulcer Outcome Healed- Epithelialized #9 L Lat Hip -Time 13:56 -Correct Patient Yes -Correct Side, Site, Position Yes -Correct Procedure Yes -Procedure Performed No -Post Debridement (cm) - Length 0 -Post Debridement (cm) - Width 0 -Post Debridement (cm) - Depth 0 -Total Square (Post) (cm) 0 -Wound/Ulcer Outcome Healed- Epithelialized #1- LEFT GROIN- POST OP -Time 13:56 14:14 -Correct Patient Yes Yes -Correct Side, Site, Position Yes Yes -Correct Procedure Yes Yes -Procedure Performed Yes Yes -Type of Procedure Debridement Debridement -Clinical Debridement Subcutaneous Subcutaneous -Tissue Removed Subcutaneous Subcutaneous -Post Debridement (cm) - Length 1.5 1.3 -Post Debridement (cm) - Width 5.8 0.4 -Post Debridement (cm) - Depth 0.1 0.1 -Total Square (Post) (cm) 8.70 0.52 -Area of Debridement (cm) - Length 1.5 1.3 -Area of Debridement (cm) - Width 5.8 0.4 -Total Square (Area) (cm) 8.70 0.52 -Tunneling No No -Undermining/Tunneling No No -Circular Undermining No No -Wound/Ulcer Outcome Not Healed Not Healed -Ulcer Cleansing Rinsed/ Rinsed/ Irrigated with Irrigated with Saline Saline -Foul Odor after Cleansing No No -Bioengineered Tissue No No -Bleeding Controlled with Pressure Pressure -Offloading No No -Treatment Response Procedure Procedure Tolerated Well Tolerated Well -Debridement - Subq, 1st 20sq cm Yes Yes Pain Scale: 0-10 Numeric Is Patient Pain Free? Yes - Nurse 3 - General Ulcer D/C NN Start: 01/26/21 13:32 Freq: Status: Active Protocol: Activity Type Activity Date Activity User E-Sign Co-Sign Detail Recorded Client Recorded Date Recorded By Document 02/09/21 14:32 SILAS [id number] 02/09/21 14:32 SILAS 02/09/21 14:32 Wound Care Nurse 3 #1- LEFT GROIN- POST OP -Ulcer Cleansing Rinsed/ Irrigated with Saline -Primary Dressing Covered/Secured with Dry Gauze, Secured with Tape Pain Scale: 0-10 Numeric Is Patient Pain Free? Yes - Visit Discharge Discharge Condition Stable Ambulatory Status Ambulatory Transportation Private Auto Accompanied by self Assessment/Plan Assessment/Plan (1) Non-healing surgical wound of left groin: CODE(S): T81.89XA - Other complications of procedures, not elsewhere classified, initial encounter PLAN: Debridement done as documented above, procedure was well-tolerated. Wound care will consist of AMD foam cover with gauze change once or twice daily and as needed. He would benefit from Intradry to place in his pannus folds to prevent the skin on skin friction that gets worse with the warmer weather. Optimal diabetes control again was discussed continue increase protein intake. His questions were answered and he was advised to call with any further questions or concerns. Follow-up in 2 weeks at the wound healing center or sooner if needed. Since he is still having delayed wound healing would like patient to have surgical consult again as his nonhealing wound has been present for over a year now. This note was generated with [employer] dictation software. It may contain incorrect words, spelling, and punctuation that were not noted in checking the note before signing. (2) Abdominal panniculus: CODE(S): E65 - Localized adiposity (3) Type 2 diabetes mellitus: CODE(S): E11.9 - Type 2 diabetes mellitus without complications QUALIFIERS: Qualified Code(s): L98.499 - Non-pressure chronic ulcer of skin of other sites with unspecified severity (4) Morbid obesity: CODE(S): E66.01 - Morbid (severe) obesity due to excess calories
== END 2021-02-19 23:59 ==
LOC: WC 13:30
PROVIDERS: Family Provider Family Medicine; PCP Family Medicine; Referring Provider Nurse Practitioner Family; Visit Provider Nurse Practitioner Family
DX: T81.89XA Other complications of procedures, not elsewhere classified, initial encounter (principal); L98.492 Non-pressure chronic ulcer of skin of other sites with fat layer exposed; E11.40 Type 2 diabetes mellitus with diabetic neuropathy, unspecified; F20.9 Schizophrenia, unspecified; I89.0 Lymphedema, not elsewhere classified; E66.01 Morbid (severe) obesity due to excess calories; Z79.4 Long term (current) use of insulin; Z79.899 Other long term (current) drug therapy
CPT/HCPCS: 11042

== ENCOUNTER 2021-03-09 13:00 | Outpatient (RCR) | payer MEDICARE, MEDICAID, SELFPAY ==
[2021-02-20 00:17] VITALS: BP 128/85; PULSE 97; RESP 18; TEMP 36.4
[2021-02-23 14:01] VITALS: BP 155/66; PULSE 88; RESP 18; TEMP 36.6
--- NOTE | 2021-02-23 15:33 | PN.PCM_ITS ---
History of Present Illness Date of Service: 02/23/21 Chief Complaint: Nonhealing wound status post surgical excision of necrotizing fasciitis left groin History of Wound: 46-year-old white male who presents to the wound healing center today with complaint of left groin ulceration status post surgical excision of necrotizing fasciitis. He is a past medical history which is significant for that of type 2 diabetes mellitus, gout, diabetic neuropathy, schizophrenia, bilateral lymphedema, and schizophrenia. The patient states that what initially started as a pimple in his left groin progressed to necrotizing fasciitis and he had to have this surgically debrided in April 2017. He was admitted to [facility] for 2 weeks and then [facility] for 6 weeks afterwards. He states that the groin ulcer which extends to his left lower abdomen has been slowly improving and he has been doing daily Aquacel AG dressings with an ABD for the drainage. He does state that he has had 3 wound vacs in the past which were unable to be utilized due to the location of his wound. He denies any foul-smelling discharge or systemic signs of infection at this time. The patient otherwise denies any fever, chills, nausea, vomiting, shortness of breath, chest pain or pressure, palpitations, orthopnea, syncope or presyncopal episodes. Progress of Wound: 02/23/2021?patient tolerating the foam dressing well, no new concerns Objective Data Objective Data Vital Signs: Vital Signs Temp Pulse Resp BP 97.8 F 88 18 155/66 H 02/23/21 14:01 02/23/21 14:01 02/23/21 14:01 02/23/21 14:01 Weight: 400 lb Charges/Coding Procedures Integumentary 111xxx-113xx: [id number] Jessica subq tissue 20 sq cm/< Physical Exam Const alert and oriented x3 General Appearance: cooperative HEENT normocephalic Head and Scalp: atraumatic Eyes PERRL Lymph Lymphatic: no lymphedema noted Resp normal respiratory effort Cardio regular rate GI non-tender GI Narrative: Obese abdomen Palpation: soft Extremity normal capillary refill Skin Wound Narrative: Left medial groin ulcer is pink without any signs of infection at this time, small amount of slough and maceration at wound edges Neuro CN's II-XII intact bilaterally Psych Thought Process: normal thought process Debridement Note Debridement Note Wound debrided: Left groin ulcer Laterality: Left Type of Debridement: Excisional debridement Anesthesia Used: 4% Lidocaine Solution Depth: Down to and including healthy tissue and in the subcutaneous layer Percentage of wound debrided: 100 Instrument Used: 5mm curette Tissue Removed: Slough devitalized tissue Severity: Fat Layer Exposed Amount of bleeding with debridement: Mild Bleeding Controlled with: Pressure Patient tolerated procedure: Patient tolerated procedure well Post-Debridement Measurements and Additional Note: Post-Debridement Measurements/Treatment RAMÓN - Nurse 1 - General Ulcer Assessment Start: 02/23/21 14:01 Freq: Status: Active Protocol: FRANKY Activity Type Activity Date Activity User E-Sign Co-Sign Detail Recorded Client Recorded Date Recorded By Document 02/23/21 14:01 ML [id number] 02/23/21 14:03 ML 02/23/21 14:01 RAMÓN - Today's Visit Information Type of service Follow-up Visit (Physician/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 ) Arrival Mode Ambulatory Transfer Assistance None Patient Identification Verified (Name & Yes ) Patient Requires Transmission-Based No Precautions Safety Precautions NA Vital Signs Temperature (97.8 F-99.1 F) 97.8 F Temperature Source Temporal Pulse Rate (60-100) 88 Pulse Location Monitor Respiratory Rate (12-18) 18 Respiratory rate source Observation Blood Pressure (90/60-120/80) 155/66 H Blood Pressure Mean (mm Hg) 95 Source Monitor Position Sitting Blood Pressure Location Left Arm History Since Last Visit- (Skip if this is Patient's initial visit) Have you changed medications since your No last visit? Any new allergies or adverse reactions No Had a fall/change in ADL's that may No increase risk of falls Signs or symptoms of abuse and/or No neglect since last visit Have you been in the hospital since your No last visit? Has dressing in place as prescribed Yes Has compression in place as prescribed N/A Has offloadiing in place as prescribed N/A Experienced any changes in pain level or No management Left Footwear Regular Shoe Right Footwear Regular Shoe Pain Scale: 0-10 Numeric Is Patient Pain Free? Yes RAMÓN Campos Nurse 1 - General Ulcer Measurement Start: 02/23/21 14:01 Freq: Status: Active Protocol: Activity Type Activity Date Activity User E-Sign Co-Sign Detail Recorded Client Recorded Date Recorded By Document 02/23/21 14:01 ML [id number] 02/23/21 14:03 ML 02/23/21 14:01 Wound Center Nurse 1 #1- LEFT GROIN- POST OP -Current Size (cm) - Length 8 -Current Size (cm) - Width 5 -Current Size (cm) - Depth 0.6 -Total Square Cm 40 -Epithelialization Small 1-33% -Exudate Amt Medium -Wound Margin Distinct, Outline Attached -Granulation Amt Large (67-100%) -Granulation Quality Red -Slough/Fibrin No -Necrosis Amt Small (1-33%) -Structure Exposed N/A -Texture (Inessa-wound Skin Appearance) Assessed -Moisture (Inessa-wound Skin Appearance) Maceration -Color (Inessa-wound Skin Appearance) Assessed -Temperature (Inessa-wound Skin No Abnormality Appearance) (Pt Warm) -Tenderness on Palpation (Inessa-wound No Skin Appearance) -Ulcer Cleansing Soap and Water -Foul Odor after Cleansing No -Anesthetic Used 4% Lidocaine Solution RAMÓN - Nurse 2 - General Ulcer CM Notes Start: 02/23/21 14:01 Freq: Status: Active Protocol: Activity Type Activity Date Activity User E-Sign Co-Sign Detail Recorded Client Recorded Date Recorded By Document 02/23/21 14:16 CRESENCIO [id number] 02/23/21 14:18 CRESENCIO 02/23/21 14:16 Wound Center Nurse 2 -Time 14:16 -Correct Patient Yes -Correct Side, Site, Position Yes -Correct Procedure Yes -Procedure Performed Yes -Type of Procedure Debridement -Clinical Debridement Subcutaneous -Tissue Removed Subcutaneous -Post Debridement (cm) - Length 1 -Post Debridement (cm) - Width 5.9 -Post Debridement (cm) - Depth 0.1 -Total Square (Post) (cm) 5.9 -Area of Debridement (cm) - Length 1 -Area of Debridement (cm) - Width 5.9 -Total Square (Area) (cm) 5.9 -Tunneling No -Undermining/Tunneling No -Circular Undermining No -Wound/Ulcer Outcome Not Healed -Ulcer Cleansing Rinsed/ Irrigated with Saline -Foul Odor after Cleansing No -Bioengineered Tissue No -Bleeding Controlled with Pressure -Offloading No -Treatment Response Procedure Tolerated Well -Debridement - Subq, 1st 20sq cm Yes Pain Scale: 0-10 Numeric Is Patient Pain Free? Yes RAMÓN - Nurse 3 - General Ulcer D/C NN Start: 02/23/21 14:01 Freq: Status: Active Protocol: Activity Type Activity Date Activity User E-Sign Co-Sign Detail Recorded Client Recorded Date Recorded By Document 02/23/21 14:28 ML [id number] 02/23/21 14:29 ML 02/23/21 14:28 Wound Care Nurse 3 #1- LEFT GROIN- POST OP -Ulcer Cleansing Rinsed/ Irrigated with Saline -Foul Odor after Cleansing No -Other Dressing antimicrobial foam -Primary Dressing Covered/Secured with Dry Gauze, Secured with Tape Assessment/Plan Assessment/Plan (1) Non-healing surgical wound of left groin: CODE(S): T81.89XA - Other complications of procedures, not elsewhere clas sified, initial encounter PLAN: Debridement done as documented above, procedure was well-tolerated. Wound care will consist of AMD foam cover with gauze change once or twice daily and as needed. He would benefit from Intradry to place in his pannus folds to prevent the skin on skin friction that gets worse with the warmer weather. Optimal diabetes control again was discussed continue increase protein intake. His questions were answered and he was advised to call with any further questions or concerns. Follow-up in 2 weeks at the wound healing center or sooner if needed. Since he is still having delayed wound healing would like patient to have surgical consult again as his nonhealing wound has been present for over a year now. This note was generated with [employer] dictation software. It may contain incorrect words, spelling, and punctuation that were not noted in checking the note before signing. (2) Abdominal panniculus: CODE(S): E65 - Localized adiposity (3) Type 2 diabetes mellitus: CODE(S): E11.9 - Type 2 diabetes mellitus without complications QUALIFIERS: Qualified Code(s): L98.499 - Non-pressure chronic ulcer of skin of other sites with unspecified severity (4) Morbid obesity: CODE(S): E66.01 - Morbid (severe) obesity due to excess calories
[2021-03-09 13:02] VITALS: BP 114/60; PULSE 80; RESP 20; TEMP 35.9
--- NOTE | 2021-03-09 20:08 | PCM.WC.PN ---
History of Present Illness Date of Service: 03/09/21 Chief Complaint: Nonhealing wound status post surgical excision of necrotizing fasciitis left groin History of Wound: 46-year-old white male who presents to the wound healing center today with complaint of left groin ulceration status post surgical excision of necrotizing fasciitis. He is a past medical history which is significant for that of type 2 diabetes mellitus, gout, diabetic neuropathy, schizophrenia, bilateral lymphedema, and schizophrenia. The patient states that what initially started as a pimple in his left groin progressed to necrotizing fasciitis and he had to have this surgically debrided in April 2017. He was admitted to [facility] for 2 weeks and then [facility] for 6 weeks afterwards. He states that the groin ulcer which extends to his left lower abdomen has been slowly improving and he has been doing daily Aquacel AG dressings with an ABD for the drainage. He does state that he has had 3 wound vacs in the past which were unable to be utilized due to the location of his wound. He denies any foul-smelling discharge or systemic signs of infection at this time. The patient otherwise denies any fever, chills, nausea, vomiting, shortness of breath, chest pain or pressure, palpitations, orthopnea, syncope or presyncopal episodes. Progress of Wound: 03/10/2021?site appears macerated, wound cultures were collected today and given the fact that this has been going on since April 2017 and he has failed multiple wound treatment modalities, will refer for surgical consult. Objective Data Objective Data Vital Signs: Vital Signs Temp Pulse Resp BP 96.7 F L 80 20 H 114/60 03/09/21 13:02 03/09/21 13:02 03/09/21 13:02 03/09/21 13:02 Weight: 400 lb Charges/Coding Procedures Integumentary 111xxx-113xx: [id number] Jessica subq tissue 20 sq cm/< Physical Exam Const alert and oriented x3 General Appearance: cooperative HEENT normocephalic Head and Scalp: atraumatic Eyes PERRL Lymph Lymphatic: no lymphedema noted Resp normal respiratory effort Cardio regular rate GI non-tender GI Narrative: Large pannus with obese abdomen Palpation: soft Extremity normal capillary refill Skin Wound Narrative: Left medial groin ulcer is pink without any signs of infection at this time, small amount of slough and more maceration this week noted at wound edges Neuro CN's II-XII intact bilaterally Psych Thought Process: normal thought process Debridement Note Debridement Note Wound debrided: Left groin ulcer Laterality: Left Type of Debridement: Excisional debridement Anesthesia Used: 5% Lidocaine Gel Depth: Down to and including healthy tissue and in the subcutaneous layer Percentage of wound debrided: 100 Instrument Used: 5mm curette Tissue Removed: Slough and devitalized tissue Severity: Fat Layer Exposed Amount of bleeding with debridement: Mild Bleeding Controlled with: Pressure Patient tolerated procedure: Patient tolerated procedure well Post-Debridement Measurements and Additional Note: Post-Debridement Measurements/Treatment - Nurse 1 - General Ulcer Assessment Start: 02/23/21 14:01 Freq: Status: Active Protocol: FRANKY Activity Type Activity Date Activity User E-Sign Co-Sign Detail Recorded Client Recorded Date Recorded By Document 02/23/21 14:01 ML [id number] 02/23/21 14:03 ML Document 03/09/21 13:02 [id number] 03/09/21 13:07 02/23/21 03/09/21 14:01 13:02 - Today's Visit Information Type of service Follow-up Visit Follow-up Visit (Physician/CAUSTIC STRENGTH INSPECTOR (Physician/CAUSTIC STRENGTH INSPECTOR ) ) Arrival Mode Ambulatory Ambulatory Transfer Assistance None Patient Identification Verified (Name & Yes Yes ) Patient Requires Transmission-Based No No Precautions Safety Precautions NA Vital Signs Temperature (97.8 F-99.1 F) 97.8 F 96.7 F L Temperature Source Temporal Temporal Pulse Rate (60-100) 88 80 Pulse Location Monitor Monitor Respiratory Rate (12-18) 18 20 H Respiratory rate source Observation Observation Blood Pressure (90/60-120/80) 155/66 H 114/60 Blood Pressure Mean (mm Hg) 95 78 Source Monitor Manual Position Sitting Sitting Blood Pressure Location Left Arm Right Arm History Since Last Visit- (Skip if this is Patient's initial visit) Have you changed medications since your No No last visit? Any new allergies or adverse reactions No No Had a fall/change in ADL's that may No increase risk of falls Signs or symptoms of abuse and/or No No neglect since last visit Have you been in the hospital since your No No last visit? Has dressing in place as prescribed Yes Yes Has compression in place as prescribed N/A N/A Has offloadiing in place as prescribed N/A N/A Experienced any changes in pain level or No No management Left Footwear Regular Shoe Regular Shoe Right Footwear Regular Shoe Regular Shoe Pain Scale: 0-10 Numeric Is Patient Pain Free? Yes Yes WC - Nurse 1 - General Ulcer Measurement Start: 02/23/21 14:01 Freq: Status: Active Protocol: Activity Type Activity Date Activity User E-Sign Co-Sign Detail Recorded Client Recorded Date Recorded By Document 02/23/21 14:01 ML [id number] 02/23/21 14:03 ML Document 03/09/21 13:02 [id number] 03/09/21 13:07 02/23/21 03/09/21 14:01 13:02 Wound Center Nurse 1 #1- LEFT GROIN- POST OP -Current Size (cm) - Length 8 0.9 -Current Size (cm) - Width 5 6.2 -Current Size (cm) - Depth 0.6 0.2 -Total Square Cm 40 5.58 -Photo Taken No -Epithelialization Small 1-33% Small 1-33% -Undermining/Tunneling No -Circular Undermining No -Exudate Amt Medium Small -Exudate Type Serosanguineous -Wound Margin Distinct, Flat & Intact Outline Attached -Granulation Amt Large (67-100%) Large (67-100%) -Granulation Quality Red Red -Slough/Fibrin No Yes -Necrosis Amt Small (1-33%) Small (1-33%) -Necrotic Tissue Type Adherent Slough -Structure Exposed N/A N/A -Texture (Inessa-wound Skin Appearance) Assessed Assessed -Moisture (Inessa-wound Skin Appearance) Maceration Assessed, Maceration -Color (Inessa-wound Skin Appearance) Assessed Assessed -Temperature (Inessa-wound Skin No Abnormality No Abnormality Appearance) (Pt Warm) (Pt Warm) -Tenderness on Palpation (Inessa-wound No No Skin Appearance) -Ulcer Cleansing Soap and Water Rinsed/ Irrigated with Saline -Foul Odor after Cleansing No No -Anesthetic Used 4% Lidocaine 4% Lidocaine Solution Solution Lower Limb Edema Present NA WC - Nurse 2 - General Ulcer CM Notes Start: 02/23/21 14:01 Freq: Status: Active Protocol: Activity Type Activity Date Activity User E-Sign Co-Sign Detail Recorded Client Recorded Date Recorded By Document 02/23/21 14:16 [id number] 02/23/21 14:18 Document 03/09/21 13:36 [id number] 03/09/21 13:41 02/23/21 03/09/21 14:16 13:36 Wound Center Nurse 2 #1- LEFT GROIN- POST OP -Time 14:16 13:40 -Correct Patient Yes Yes -Correct Side, Site, Position Yes Yes -Correct Procedure Yes Yes -Procedure Performed Yes Yes -Type of Procedure Debridement Debridement -Clinical Debridement Subcutaneous Subcutaneous -Tissue Removed Subcutaneous Subcutaneous -Post Debridement (cm) - Length 1 1.3 -Post Debridement (cm) - Width 5.9 6.0 -Post Debridement (cm) - Depth 0.1 0.1 -Total Square (Post) (cm) 5.9 7.80 -Area of Debridement (cm) - Length 1 1.3 -Area of Debridement (cm) - Width 5.9 6.0 -Total Square (Area) (cm) 5.9 7.80 -Tunneling No No -Undermining/Tunneling No No -Circular Undermining No No -Wound/Ulcer Outcome Not Healed Not Healed -Ulcer Cleansing Rinsed/ Rinsed/ Irrigated with Irrigated with Saline Saline -Foul Odor after Cleansing No No -Bioengineered Tissue No No -Bleeding Controlled with Pressure Pressure -Offloading No No -Treatment Response Procedure Procedure Tolerated Well Tolerated Well -Debridement - Subq, 1st 20sq cm Yes Yes Pain Scale: 0-10 Numeric Is Patient Pain Free? Yes Yes - Nurse 3 - General Ulcer D/C NN Start: 02/23/21 14:01 Freq: Status: Active Protocol: Activity Type Activity Date Activity User E-Sign Co-Sign Detail Recorded Client Recorded Date Recorded By Document 02/23/21 14:28 [id number] 02/23/21 14:29 ML Document 03/09/21 13:44 [id number] 03/09/21 13:45 02/23/21 03/09/21 14:28 13:44 Wound Care Nurse 3 #1- LEFT GROIN- POST OP -Ulcer Cleansing Rinsed/ Rinsed/ Irrigated with Irrigated with Saline Saline -Foul Odor after Cleansing No -Negative Pressure Wound Therapy Discontinue -Primary Dressing Applied Silvercel -Other Dressing antimicrobial foam -Primary Dressing Covered/Secured with Dry Gauze, Secured with Secured with Tape Tape -Other Covering Abd pad -Silvercel 1 Pain Scale: 0-10 Numeric Is Patient Pain Free? Yes WC - Visit Discharge Discharge Condition Stable Ambulatory Status Ambulatory Transportation Private Auto Medication Reconcilliation completed & Yes provided to patient/care provider Clinical Summary of Care Provided Yes Assessment/Plan Assessment/Plan (1) Non-healing surgical wound of left groin: CODE(S): T81.89XA - Other complications of procedures, not elsewhere classified, initial encounter PLAN: Debridement done as documented above, procedure was well-tolerated. Wound care will consist of alternating between silver cell and Aquacel extra cover with foam dressing change once or twice daily and as needed. He would benefit from Intradry to place in his pannus folds to prevent the skin on skin friction. Optimal diabetes control again was discussed continue increase protein intake. His questions were answered and he was advised to call with any further questions or concerns. Follow-up in 2 weeks at the wound healing center or sooner if needed. Since he is still having delayed wound healing would like patient to have surgical consult again as his nonhealing wound has been present for since 2018. This note was generated with [employer] dictation software. It may contain incorrect words, spelling, and punctuation that were not noted in checking the note before signing. (2) Abdominal panniculus: CODE(S): E65 - Localized adiposity (3) Type 2 diabetes mellitus: CODE(S): E11.9 - Type 2 diabetes mellitus without complications QUALIFIERS: Qualified Code(s): L98.499 - Non-pressure chronic ulcer of skin of other sites with unspecified severity (4) Morbid obesity: CODE(S): E66.01 - Morbid (severe) obesity due to excess calories
--- NOTE | 2021-03-14 11:38 | WC ---
Wound culture results from 03/09/21 reviewed per Gianni Neil NP and antibiotic Levaquin sent to [facility] pharmacy in [place] per Gianni. Patient sister Gayathri notified and will pickling solution maker.
== END 2021-03-21 23:59 ==
LOC: WC 13:00
PROVIDERS: Family Provider Family Medicine; PCP Family Medicine; Referring Provider Nurse Practitioner Family; Visit Provider Nurse Practitioner Family
DX: T81.89XA Other complications of procedures, not elsewhere classified, initial encounter (principal); L98.492 Non-pressure chronic ulcer of skin of other sites with fat layer exposed; I89.0 Lymphedema, not elsewhere classified; E11.40 Type 2 diabetes mellitus with diabetic neuropathy, unspecified; F20.9 Schizophrenia, unspecified; M10.9 Gout, unspecified; E66.01 Morbid (severe) obesity due to excess calories; Z79.4 Long term (current) use of insulin; Z79.899 Other long term (current) drug therapy
CPT/HCPCS: 11042; 87070; 87075; 87077; 87186; 87205

== ENCOUNTER 2021-04-06 14:15 | Outpatient (RCR) | payer MEDICARE, MEDICAID, SELFPAY ==
[2021-03-22 00:22] VITALS: BP 114/60; PULSE 80; RESP 20; TEMP 35.9
[2021-03-23 13:18] VITALS: BP 119/70; PULSE 75; TEMP 35.8
--- NOTE | 2021-03-23 16:33 | PN.PCM_ITS ---
History of Present Illness Date of Service: 03/23/21 Chief Complaint: Nonhealing wound status post surgical excision of necrotizing fasciitis left groin History of Wound: 46-year-old white male who presents to the wound healing center today with complaint of left groin ulceration status post surgical excision of necrotizing fasciitis. He is a past medical history which is significant for that of type 2 diabetes mellitus, gout, diabetic neuropathy, schizophrenia, bilateral lymphedema, and schizophrenia. The patient states that what initially started as a pimple in his left groin progressed to necrotizing fasciitis and he had to have this surgically debrided in April 2017. He was admitted to [facility] for 2 weeks and then [facility] for 6 weeks afterwards. He states that the groin ulcer which extends to his left lower abdomen has been slowly improving and he has been doing daily Aquacel AG dressings with an ABD for the drainage. He does state that he has had 3 wound vacs in the past which were unable to be utilized due to the location of his wound. He denies any foul-smelling discharge or systemic signs of infection at this time. The patient otherwise denies any fever, chills, nausea, vomiting, shortness of breath, chest pain or pressure, palpitations, orthopnea, syncope or presyncopal episodes. Progress of Wound: Wounds have improved in size, patient does have a plastic surgery referral and is awaiting appointment, otherwise no new concerns at this time. He previously had cultures collected which grew Proteus and is susceptible to Levaquin which she is tolerating Objective Data Objective Data Vital Signs: Vital Signs Temp Pulse Resp BP 96.5 F L 75 20 H 119/70 03/23/21 13:18 03/23/21 13:18 03/22/21 00:22 03/23/21 13:18 Weight: 400 lb Charges/Coding Procedures Integumentary 111xxx-113xx: [id number] Jessica subq tissue 20 sq cm/< Physical Exam Const alert and oriented x3 General Appearance: cooperative HEENT normocephalic Head and Scalp: atraumatic Eyes PERRL Lymph Lymphatic: no lymphedema noted Resp normal respiratory effort Cardio regular rate GI non-tender GI Narrative: Large pannus with obese abdomen Palpation: soft Extremity normal capillary refill Skin Wound Narrative: Left medial groin ulcer is pink without any signs of infection at this time, small amount of slough and less maceration this week Neuro CN's II-XII intact bilaterally Psych Thought Process: normal thought process Debridement Note Debridement Note Wound debrided: Left groin ulcer Laterality: Left Type of Debridement: Excisional debridement Anesthesia Used: 5% Lidocaine Gel Depth: Down to and including healthy tissue and in the subcutaneous layer Percentage of wound debrided: 100 Instrument Used: 5mm curette Tissue Removed: Slough and devitalized tissue Severity: Fat Layer Exposed Amount of bleeding with debridement: Mild Bleeding Controlled with: Pressure Patient tolerated procedure: Patient tolerated procedure well Post-Debridement Measurements and Additional Note: Post-Debridement Measurements/Treatment WC - Nurse 1 - General Ulcer Assessment Start: 03/23/21 13:17 Freq: Status: Active Protocol: FRANKY Activity Type Activity Date Activity User E-Sign Co-Sign Detail Recorded Client Recorded Date Recorded By Document 03/23/21 13:18 SILAS [id number] 03/23/21 13:20 SILAS 03/23/21 13:18 WC - Today's Visit Information Type of service Follow-up Visit (Physician/INSTRUMENT REPAIR TECHNICIAN ) Arrival Mode Ambulatory Patient Identification Verified (Name & Yes ) Vital Signs Temperature (97.8 F-99.1 F) 96.5 F L Temperature Source Temporal Pulse Rate (60-100) 75 Pulse Location Monitor Blood Pressure (90/60-120/80) 119/70 Blood Pressure Mean (mm Hg) 86 Source Monitor Position Semi-Fowlers Blood Pressure Location Right Arm History Since Last Visit- (Skip if this is Patient's initial visit) Have you changed medications since your No last visit? Any new allergies or adverse reactions No Had a fall/change in ADL's that may No increase risk of falls Signs or symptoms of abuse and/or No neglect since last visit Have you been in the hospital since your No last visit? Has dressing in place as prescribed Yes Has compression in place as prescribed N/A Has offloadiing in place as prescribed N/A Experienced any changes in pain level or No management Left Footwear Regular Shoe Right Footwear Regular Shoe Pain Scale: 0-10 Numeric Is Patient Pain Free? Yes RAMÓN Campos Nurse 1 - General Ulcer Measurement Start: 03/23/21 13:17 Freq: Status: Active Protocol: Activity Type Activity Date Activity User E-Sign Co-Sign Detail Recorded Client Recorded Date Recorded By Document 03/23/21 13:18 KR [id number] 03/23/21 13:20 KR 03/23/21 13:18 Wound Center Nurse 1 #1- LEFT GROIN- POST OP -Current Size (cm) - Length 0.5 -Current Size (cm) - Width 4.2 -Current Size (cm) - Depth 0.3 -Total Square Cm 2.10 -Exudate Amt Small -Exudate Type Serosanguineous -Wound Margin Distinct, Outline Attached -Granulation Amt Small (1-33%) -Granulation Quality Red -Necrosis Amt None Present (0 %) -Texture (Inessa-wound Skin Appearance) Assessed, Scarring -Moisture (Inessa-wound Skin Appearance) No Abnormality, Assessed -Color (Inessa-wound Skin Appearance) No Abnormality, Assessed -Temperature (Inessa-wound Skin No Abnormality Appearance) (Pt Warm) -Tenderness on Palpation (Inessa-wound No Skin Appearance) -Ulcer Cleansing Rinsed/ Irrigated with Saline -Foul Odor after Cleansing No -Anesthetic Used 4% Lidocaine Solution WC - Nurse 2 - General Ulcer CM Notes Start: 03/23/21 13:17 Freq: Status: Active Protocol: Activity Type Activity Date Activity User E-Sign Co-Sign Detail Recorded Client Recorded Date Recorded By Document 03/23/21 13:40 MW [id number] 03/23/21 13:44 MW 03/23/21 13:40 Wound Center Nurse 2 -Time 13:40 -Correct Patient Yes -Correct Side, Site, Position Yes -Correct Procedure Yes -Procedure Performed Yes -Type of Procedure Debridement -Clinical Debridement Subcutaneous -Tissue Removed Subcutaneous -Post Debridement (cm) - Length 1.5 -Post Debridement (cm) - Width 5.5 -Post Debridement (cm) - Depth 0.1 -Total Square (Post) (cm) 8.25 -Area of Debridement (cm) - Length 1.5 -Area of Debridement (cm) - Width 5.5 -Total Square (Area) (cm) 8.25 -Tunneling No -Undermining/Tunneling No -Circular Undermining No -Wound/Ulcer Outcome Not Healed -Ulcer Cleansing Rinsed/ Irrigated with Saline -Foul Odor after Cleansing No -Bioengineered Tissue No -Bleeding Controlled with Pressure,Silver Nitrate -Offloading No -Treatment Response Procedure Tolerated Well -Debridement - Subq, 1st 20sq cm Yes Pain Scale: 0-10 Numeric Is Patient Pain Free? Yes Assessment/Plan Assessment/Plan (1) Non-healing surgical wound of left groin: CODE(S): T81.89XA - Other complications of procedures, not elsewhere classified, initial encounter PLAN: Debridement done as documented above, procedure was well-tolerated. Wound care will consist of alternating between silver cell and Aquacel extra cover with foam dressing change once or twice daily and as needed. He would benefit from Intradry to place in his pannus folds to prevent the skin on skin friction. Optimal diabetes control again was discussed continue increase protein intake. His questions were answered and he was advised to call with any further questions or concerns. Follow-up in 2 weeks at the wound healing center or sooner if needed. Since he is still having delayed wound healing would like patient to have surgical consult again as his nonhealing wound has been present for since 2018. This note was generated with [employer] dictation software. It may contain incorrect words, spelling, and punctuation that were not noted in checking the note before signing. (2) Abdominal panniculus: CODE(S): E65 - Localized adiposity (3) Type 2 diabetes mellitus: CODE(S): E11.9 - Type 2 diabetes mellitus without complications QUALIFIERS: Qualified Code(s): L98.499 - Non-pressure chronic ulcer of skin of other sites with unspecified severity (4) Morbid obesity: CODE(S): E66.01 - Morbid (severe) obesity due to excess calories
[2021-04-06 15:09] VITALS: BP 115/63; PULSE 78; TEMP 35.5
--- NOTE | 2021-04-06 22:43 | PCM.WC.PN ---
History of Present Illness Date of Service: 04/06/21 Chief Complaint: Nonhealing wound status post surgical excision of necrotizing fasciitis left groin History of Wound: 46-year-old white male who presents to the wound healing center today with complaint of left groin ulceration status post surgical excision of necrotizing fasciitis. He is a past medical history which is significant for that of type 2 diabetes mellitus, gout, diabetic neuropathy, schizophrenia, bilateral lymphedema, and schizophrenia. The patient states that what initially started as a pimple in his left groin progressed to necrotizing fasciitis and he had to have this surgically debrided in April 2017. He was admitted to [facility] for 2 weeks and then [facility] for 6 weeks afterwards. He states that the groin ulcer which extends to his left lower abdomen has been slowly improving and he has been doing daily Aquacel AG dressings with an ABD for the drainage. He does state that he has had 3 wound vacs in the past which were unable to be utilized due to the location of his wound. He denies any foul-smelling discharge or systemic signs of infection at this time. The patient otherwise denies any fever, chills, nausea, vomiting, shortness of breath, chest pain or pressure, palpitations, orthopnea, syncope or presyncopal episodes. Progress of Wound: Wounds stable, patient does have a plastic surgery referral and is awaiting appointment, otherwise no new concerns at this time. He previously had cultures collected which grew Proteus and is susceptible to Levaquin which he completed Objective Data Objective Data Vital Signs: Vital Signs Temp Pulse Resp BP 95.9 F L 78 20 H 115/63 04/06/21 15:09 04/06/21 15:09 03/22/21 00:22 04/06/21 15:09 Weight: 400 lb Charges/Coding Procedures Integumentary 111xxx-113xx: [id number] Jessica subq tissue 20 sq cm/< Physical Exam Const alert and oriented x3 General Appearance: cooperative HEENT normocephalic Head and Scalp: atraumatic Eyes PERRL Lymph Lymphatic: no lymphedema noted Resp normal respiratory effort Cardio regular rate GI non-tender GI Narrative: Large pannus with obese abdomen Palpation: soft Extremity normal capillary refill Skin Wound Narrative: Left medial groin ulcer is pink without any signs of infection at this time, small amount of slough and less maceration this week Neuro CN's II-XII intact bilaterally Psych Thought Process: normal thought process Debridement Note Debridement Note Wound debrided: Left groin ulcer Laterality: Left Type of Debridement: Excisional debridement Anesthesia Used: 5% Lidocaine Gel Depth: in the subcutaneous layer Percentage of wound debrided: 100 Instrument Used: 5mm curette Tissue Removed: Slough and devitalized tissue Severity: Fat Layer Exposed Amount of bleeding with debridement: Mild Bleeding Controlled with: Pressure Patient tolerated procedure: Patient tolerated procedure well Post-Debridement Measurements and Additional Note: Post-Debridement Measurements/Treatment - Nurse 1 - General Ulcer Assessment Start: 03/23/21 13:17 Freq: Status: Active Protocol: [email or web address] Activity Type Activity Date Activity User E-Sign Co-Sign Detail Recorded Client Recorded Date Recorded By Document 03/23/21 13:18 SILAS [id number] 03/23/21 13:20 KR Document 04/06/21 15:09 FOREIGN [id number] 04/06/21 15:10 FOREIGN 03/23/21 04/06/21 13:18 15:09 - Today's Visit Information Type of service Follow-up Visit Follow-up Visit (Physician/ANALYTICS ARCHITECT (Physician/ANALYTICS ARCHITECT ) ) Arrival Mode Ambulatory Ambulatory Patient Identification Verified (Name & Yes Yes ) Patient Requires Transmission-Based No Precautions Safety Precautions NA Vital Signs Temperature (97.8 F-99.1 F) 96.5 F L 95.9 F L Temperature Source Temporal Temporal Pulse Rate (60-100) 75 78 Pulse Location Monitor Monitor Blood Pressure (90/60-120/80) 119/70 115/63 Blood Pressure Mean (mm Hg) 86 80 Source Monitor Monitor Position Semi-Fowlers Blood Pressure Location Right Arm History Since Last Visit- (Skip if this is Patient's initial visit) Have you changed medications since your No No last visit? Any new allergies or adverse reactions No No Had a fall/change in ADL's that may No No increase risk of falls Signs or symptoms of abuse and/or No No neglect since last visit Have you been in the hospital since your No No last visit? Has dressing in place as prescribed Yes Yes Has compression in place as prescribed N/A N/A Has offloadiing in place as prescribed N/A N/A Experienced any changes in pain level or No No management Left Footwear Regular Shoe Regular Shoe Right Footwear Regular Shoe Regular Shoe Pain Scale: 0-10 Numeric Is Patient Pain Free? Yes WC - Nurse 1 - General Ulcer Measurement Start: 03/23/21 13:17 Freq: Status: Active Protocol: Activity Type Activity Date Activity User E-Sign Co-Sign Detail Recorded Client Recorded Date Recorded By Document 03/23/21 13:18 KR [id number] 03/23/21 13:20 KR Document 04/06/21 15:09 AK [id number] 04/06/21 15:10 AK 03/23/21 04/06/21 13:18 15:09 Wound Center Nurse 1 #1- LEFT GROIN- POST OP -Combined with other wound No -Current Size (cm) - Length 0.5 0.4 -Current Size (cm) - Width 4.2 5.5 -Current Size (cm) - Depth 0.3 0.1 -Total Square Cm 2.10 2.20 -Photo Taken No -Epithelialization Small 1-33% -Tunneling No -Undermining/Tunneling No -Circular Undermining No -Change in Wound Grade/Stage No -Exudate Amt Small Small -Exudate Type Serosanguineous Serosanguineous -Wound Margin Distinct, Distinct, Outline Outline Attached Attached -Granulation Amt Small (1-33%) Small (1-33%) -Granulation Quality Red Pale,[place] -Slough/Fibrin Yes -Necrosis Amt None Present (0 Small (1-33%) %) -Necrotic Tissue Type Adherent Slough -Structure Exposed N/A -Texture (Inessa-wound Skin Appearance) Assessed, Assessed, Scarring Scarring -Moisture (Inessa-wound Skin Appearance) No Abnormality, No Abnormality, Assessed Assessed -Color (Inessa-wound Skin Appearance) No Abnormality, No Abnormality, Assessed Assessed -Temperature (Inessa-wound Skin No Abnormality No Abnormality Appearance) (Pt Warm) (Pt Warm) -Tenderness on Palpation (Inessa-wound No No Skin Appearance) -Ulcer Cleansing Rinsed/ Rinsed/ Irrigated with Irrigated with Saline Saline -Foul Odor after Cleansing No No -Anesthetic Used 4% Lidocaine 5% Lidocaine Solution Gel WC - Nurse 2 - General Ulcer CM Notes Start: 03/23/21 13:17 Freq: Status: Active Protocol: Activity Type Activity Date Activity User E-Sign Co-Sign Detail Recorded Client Recorded Date Recorded By Document 03/23/21 13:40 MW [id number] 03/23/21 13:44 MW Document 04/06/21 15:25 MW [id number] 04/06/21 16:32 MW 03/23/21 04/06/21 13:40 15:25 Wound Center Nurse 2 #1- LEFT GROIN- POST OP -Time 13:40 15:25 -Correct Patient Yes Yes -Correct Side, Site, Position Yes Yes -Correct Procedure Yes Yes -Procedure Performed Yes Yes -Type of Procedure Debridement Debridement -Clinical Debridement Subcutaneous Subcutaneous -Tissue Removed Subcutaneous Subcutaneous -Post Debridement (cm) - Length 1.5 1.3 -Post Debridement (cm) - Width 5.5 6.3 -Post Debridement (cm) - Depth 0.1 0.1 -Total Square (Post) (cm) 8.25 8.19 -Area of Debridement (cm) - Length 1.5 1.3 -Area of Debridement (cm) - Width 5.5 6.3 -Total Square (Area) (cm) 8.25 8.19 -Tunneling No No -Undermining/Tunneling No No -Circular Undermining No No -Wound/Ulcer Outcome Not Healed Not Healed -Ulcer Cleansing Rinsed/ Rinsed/ Irrigated with Irrigated with Saline Saline -Foul Odor after Cleansing No No -Bioengineered Tissue No No -Bleeding Controlled with Pressure,Silver Pressure Nitrate -Offloading No No -Treatment Response Procedure Procedure Tolerated Well Tolerated Well -Debridement - Subq, 1st 20sq cm Yes Yes Pain Scale: 0-10 Numeric Is Patient Pain Free? Yes Yes - Nurse 3 - General Ulcer D/C NN Start: 03/23/21 13:17 Freq: Status: Active Protocol: Activity Type Activity Date Activity User E-Sign Co-Sign Detail Recorded Client Recorded Date Recorded By Document 04/06/21 15:40 AK [id number] 04/06/21 15:41 AK 04/06/21 15:40 Wound Care Nurse 3 #1- LEFT GROIN- POST OP -Ulcer Cleansing Rinsed/ Irrigated with Saline -Foul Odor after Cleansing No -Negative Pressure Wound Therapy N/A -Primary Dressing Applied Aquacel Extra, Mepilex Border -Aquacel Extra 1 -Mepilex Border 1 WC - Visit Discharge Discharge Condition Stable Ambulatory Status Ambulatory Transportation Private Auto Medication Reconcilliation completed & No provided to patient/care provider Clinical Summary of Care Provided Yes Assessment/Plan Assessment/Plan (1) Non-healing surgical wound of left groin: CODE(S): T81.89XA - Other complications of procedures, not elsewhere classified, initial encounter PLAN: Debridement done as documented above, procedure was well-tolerated. Wound care will consist of alternating between silver cell and Aquacel extra cover with SAP foam dressing change once or twice daily and as needed. He would benefit from Intradry to place in his pannus folds to prevent the skin on skin friction. Optimal diabetes control again was discussed continue increase protein intake. His questions were answered and he was advised to call with any further questions or concerns. Follow-up in 3 weeks at the wound healing center or sooner if needed. Since he is still having delayed wound healing would like patient to have surgical consult again as his nonhealing wound has been present for since 2018. This note was generated with [employer] dictation software. It may contain incorrect words, spelling, and punctuation that were not noted in checking the note before signing. (2) Abdominal panniculus: CODE(S): E65 - Localized adiposity (3) Type 2 diabetes mellitus: CODE(S): E11.9 - Type 2 diabetes mellitus without complications QUALIFIERS: Qualified Code(s): L98.499 - Non-pressure chronic ulcer of skin of other sites with unspecified severity (4) Morbid obesity: CODE(S): E66.01 - Morbid (severe) obesity due to excess calories
--- NOTE | 2021-04-07 16:43 | PN.PCM_ITS ---
History of Present Illness Date of Service: 04/06/21 Chief Complaint: Nonhealing wound status post surgical excision of necrotizing fasciitis left groin History of Wound: 46-year-old white male who presents to the wound healing center today with complaint of left groin ulceration status post surgical excision of necrotizing fasciitis. He is a past medical history which is significant for that of type 2 diabetes mellitus, gout, diabetic neuropathy, schizophrenia, bilateral lymphedema, and schizophrenia. The patient states that what initially started as a pimple in his left groin progressed to necrotizing fasciitis and he had to have this surgically debrided in April 2017. He was admitted to [facility] [place] [facility] for 2 weeks and then [facility] for 6 weeks afterwards. He states that the groin ulcer which extends to his left lower abdomen has been slowly improving and he has been doing daily Aquacel AG dressings with an ABD for the drainage. He does state that he has had 3 wound vacs in the past which were unable to be utilized due to the location of his wound. He denies any foul-smelling discharge or systemic signs of infection at this time. The patient otherwise denies any fever, chills, nausea, vomiting, shortness of breath, chest pain or pressure, palpitations, orthopnea, syncope or presyncopal episodes. Progress of Wound: Wounds stable, patient does have a plastic surgery referral and is awaiting appointment, otherwise no new concerns at this time. He previously had cultures collected which grew Proteus and is susceptible to Levaquin which he completed Objective Data Objective Data Vital Signs: Vital Signs Temp Pulse Resp BP 95.9 F L 78 20 H 115/63 04/06/21 15:09 04/06/21 15:09 03/22/21 00:22 04/06/21 15:09 Weight: 400 lb Charges/Coding Procedures Integumentary 111xxx-113xx: [id number] Jessica subq tissue 20 sq cm/< Physical Exam Const alert and oriented x3 General Appearance: cooperative HEENT normocephalic Head and Scalp: atraumatic Eyes PERRL Lymph Lymphatic: no lymphedema noted Resp normal respiratory effort Cardio regular rate GI non-tender GI Narrative: Large pannus with obese abdomen Palpation: soft Extremity normal capillary refill Skin Wound Narrative: Left medial groin ulcer is pink without any signs of infection at this time, small amount of slough and less maceration this week Neuro CN's II-XII intact bilaterally Psych Thought Process: normal thought process Debridement Note Debridement Note Wound debrided: Left groin ulcer Laterality: Left Type of Debridement: Excisional debridement Anesthesia Used: 5% Lidocaine Gel Depth: in the subcutaneous layer Percentage of wound debrided: 100 Instrument Used: 5mm curette Tissue Removed: Slough and devitalized tissue Severity: Fat Layer Exposed Amount of bleeding with debridement: Mild Bleeding Controlled with: Pressure Patient tolerated procedure: Patient tolerated procedure well Post-Debridement Measurements and Additional Note: Post-Debridement Measurements/Treatment - Nurse 1 - General Ulcer Assessment Start: 03/23/21 13:17 Freq: Status: Active Protocol: RAMÓNGema TouchPatti Activity Type Activity Date Activity User E-Sign Co-Sign Detail Recorded Client Recorded Date Recorded By Document 03/23/21 13:18 SILAS [id number] 03/23/21 13:20 KR Document 04/06/21 15:09 FOREIGN [id number] 04/06/21 15:10 FOREIGN 03/23/21 04/06/21 13:18 15:09 - Today's Visit Information Type of service Follow-up Visit Follow-up Visit (Physician/SOFTWARE TEST ENGINEER (Physician/SOFTWARE TEST ENGINEER ) ) Arrival Mode Ambulatory Ambulatory Patient Identification Verified (Name & Yes Yes ) Patient Requires Transmission-Based No Precautions Safety Precautions NA Vital Signs Temperature (97.8 F-99.1 F) 96.5 F L 95.9 F L Temperature Source Temporal Temporal Pulse Rate (60-100) 75 78 Pulse Location Monitor Monitor Blood Pressure (90/60-120/80) 119/70 115/63 Blood Pressure Mean (mm Hg) 86 80 Source Monitor Monitor Position Semi-Fowlers Blood Pressure Location Right Arm History Since Last Visit- (Skip if this is Patient's initial visit) Have you changed medications since your No No last visit? Any new allergies or adverse reactions No No Had a fall/change in ADL's that may No No increase risk of falls Signs or symptoms of abuse and/or No No neglect since last visit Have you been in the hospital since your No No last visit? Has dressing in place as prescribed Yes Yes Has compression in place as prescribed N/A N/A Has offloadiing in place as prescribed N/A N/A Experienced any changes in pain level or No No management Left Footwear Regular Shoe Regular Shoe Right Footwear Regular Shoe Regular Shoe Pain Scale: 0-10 Numeric Is Patient Pain Free? Yes WC - Nurse 1 - General Ulcer Measurement Start: 03/23/21 13:17 Freq: Status: Active Protocol: Activity Type Activity Date Activity User E-Sign Co-Sign Detail Recorded Client Recorded Date Recorded By Document 03/23/21 13:18 KR [id number] 03/23/21 13:20 KR Document 04/06/21 15:09 AK [id number] 04/06/21 15:10 AK 03/23/21 04/06/21 13:18 15:09 Wound Center Nurse 1 #1- LEFT GROIN- POST OP -Combined with other wound No -Current Size (cm) - Length 0.5 0.4 -Current Size (cm) - Width 4.2 5.5 -Current Size (cm) - Depth 0.3 0.1 -Total Square Cm 2.10 2.20 -Photo Taken No -Epithelialization Small 1-33% -Tunneling No -Undermining/Tunneling No -Circular Undermining No -Change in Wound Grade/Stage No -Exudate Amt Small Small -Exudate Type Serosanguineous Serosanguineous -Wound Margin Distinct, Distinct, Outline Outline Attached Attached -Granulation Amt Small (1-33%) Small (1-33%) -Granulation Quality Red Pale,[place] -Slough/Fibrin Yes -Necrosis Amt None Present (0 Small (1-33%) %) -Necrotic Tissue Type Adherent Slough -Structure Exposed N/A -Texture (Inessa-wound Skin Appearance) Assessed, Assessed, Scarring Scarring -Moisture (Inessa-wound Skin Appearance) No Abnormality, No Abnormality, Assessed Assessed -Color (Inessa-wound Skin Appearance) No Abnormality, No Abnormality, Assessed Assessed -Temperature (Inessa-wound Skin No Abnormality No Abnormality Appearance) (Pt Warm) (Pt Warm) -Tenderness on Palpation (Inessa-wound No No Skin Appearance) -Ulcer Cleansing Rinsed/ Rinsed/ Irrigated with Irrigated with Saline Saline -Foul Odor after Cleansing No No -Anesthetic Used 4% Lidocaine 5% Lidocaine Solution Gel WC - Nurse 2 - General Ulcer CM Notes Start: 03/23/21 13:17 Freq: Status: Active Protocol: Activity Type Activity Date Activity User E-Sign Co-Sign Detail Recorded Client Recorded Date Recorded By Document 03/23/21 13:40 MW [id number] 03/23/21 13:44 MW Document 04/06/21 15:25 MW [id number] 04/06/21 16:32 MW 03/23/21 04/06/21 13:40 15:25 Wound Center Nurse 2 #1- LEFT GROIN- POST OP -Time 13:40 15:25 -Correct Patient Yes Yes -Correct Side, Site, Position Yes Yes -Correct Procedure Yes Yes -Procedure Performed Yes Yes -Type of Procedure Debridement Debridement -Clinical Debridement Subcutaneous Subcutaneous -Tissue Removed Subcutaneous Subcutaneous -Post Debridement (cm) - Length 1.5 1.3 -Post Debridement (cm) - Width 5.5 6.3 -Post Debridement (cm) - Depth 0.1 0.1 -Total Square (Post) (cm) 8.25 8.19 -Area of Debridement (cm) - Length 1.5 1.3 -Area of Debridement (cm) - Width 5.5 6.3 -Total Square (Area) (cm) 8.25 8.19 -Tunneling No No -Undermining/Tunneling No No -Circular Undermining No No -Wound/Ulcer Outcome Not Healed Not Healed -Ulcer Cleansing Rinsed/ Rinsed/ Irrigated with Irrigated with Saline Saline -Foul Odor after Cleansing No No -Bioengineered Tissue No No -Bleeding Controlled with Pressure,Silver Pressure Nitrate -Offloading No No -Treatment Response Procedure Procedure Tolerated Well Tolerated Well -Debridement - Subq, 1st 20sq cm Yes Yes Pain Scale: 0-10 Numeric Is Patient Pain Free? Yes Yes - Nurse 3 - General Ulcer D/C NN Start: 03/23/21 13:17 Freq: Status: Active Protocol: Activity Type Activity Date Activity User E-Sign Co-Sign Detail Recorded Client Recorded Date Recorded By Document 04/06/21 15:40 AK [id number] 04/06/21 15:41 AK 04/06/21 15:40 Wound Care Nurse 3 #1- LEFT GROIN- POST OP -Ulcer Cleansing Rinsed/ Irrigated with Saline -Foul Odor after Cleansing No -Negative Pressure Wound Therapy N/A -Primary Dressing Applied Aquacel Extra, Mepilex Border -Aquacel Extra 1 -Mepilex Border 1 WC - Visit Discharge Discharge Condition Stable Ambulatory Status Ambulatory Transportation Private Auto Medication Reconcilliation completed & No provided to patient/care provider Clinical Summary of Care Provided Yes Assessment/Plan Assessment/Plan (1) Non-healing surgical wound of left groin: CODE(S): T81.89XA - Other complications of procedures, not elsewhere classified, initial encounter PLAN: Debridement done as documented above, procedure was well-tolerated. Wound care will consist of alternating between silver cell and Aquacel extra cover with SAP foam dressing change once or twice daily and as needed. He would benefit from Intradry to place in his pannus folds to prevent the skin on skin friction. Optimal diabetes control again was discussed continue increase protein intake. His questions were answered and he was advised to call with any further questions or concerns. Follow-up in 3 weeks at the wound healing center or sooner if needed. Since he is still having delayed wound healing would like patient to have surgical consult again as his nonhealing wound has been present for since 2018. This note was generated with [employer] dictation software. It may contain incorrect words, spelling, and punctuation that were not noted in checking the note before signing. (2) Abdominal panniculus: CODE(S): E65 - Localized adiposity (3) Type 2 diabetes mellitus: CODE(S): E11.9 - Type 2 diabetes mellitus without complications QUALIFIERS: Qualified Code(s): L98.499 - Non-pressure chronic ulcer of skin of other sites with unspecified severity (4) Morbid obesity: CODE(S): E66.01 - Morbid (severe) obesity due to excess calories
== END 2021-04-21 23:59 ==
LOC: WC 14:15
PROVIDERS: Family Provider Family Medicine; PCP Family Medicine; Referring Provider Nurse Practitioner Family; Visit Provider Nurse Practitioner Family
DX: T81.89XA Other complications of procedures, not elsewhere classified, initial encounter (principal); L98.499 Non-pressure chronic ulcer of skin of other sites with unspecified severity; E11.40 Type 2 diabetes mellitus with diabetic neuropathy, unspecified; M10.9 Gout, unspecified; F20.9 Schizophrenia, unspecified; E66.01 Morbid (severe) obesity due to excess calories; Z79.4 Long term (current) use of insulin; Z79.899 Other long term (current) drug therapy
CPT/HCPCS: 11042

== ENCOUNTER 2021-05-18 13:45 | Outpatient (RCR) | payer MEDICARE, MEDICAID, SELFPAY ==
[2021-04-22 00:21] VITALS: BP 115/63; PULSE 78; RESP 20; TEMP 35.5
[2021-04-27 13:17] VITALS: BP 136/69; PULSE 79; RESP 20; TEMP 36.6
--- NOTE | 2021-04-27 16:16 | PCM.WC.PN ---
History of Present Illness Date of Service: 04/27/21 Chief Complaint: Nonhealing wound status post surgical excision of necrotizing fasciitis left groin History of Wound: 46-year-old white male who presents to the wound healing center today with complaint of left groin ulceration status post surgical excision of necrotizing fasciitis. He is a past medical history which is significant for that of type 2 diabetes mellitus, gout, diabetic neuropathy, schizophrenia, bilateral lymphedema, and schizophrenia. The patient states that what initially started as a pimple in his left groin progressed to necrotizing fasciitis and he had to have this surgically debrided in April 2017. He was admitted to [facility] for 2 weeks and then [facility] for 6 weeks afterwards. He states that the groin ulcer which extends to his left lower abdomen has been slowly improving and he has been doing daily Aquacel AG dressings with an ABD for the drainage. He does state that he has had 3 wound vacs in the past which were unable to be utilized due to the location of his wound. He denies any foul-smelling discharge or systemic signs of infection at this time. The patient otherwise denies any fever, chills, nausea, vomiting, shortness of breath, chest pain or pressure, palpitations, orthopnea, syncope or presyncopal episodes. Progress of Wound: persists,Patient's wound patient's wound persists, he was referred previously to plastic surgery for consult [facility] but has yet to schedule, no new concerns, Objective Data Objective Data Vital Signs: Vital Signs Temp Pulse Resp BP 97.8 F 79 20 H 136/69 H 04/27/21 13:17 04/27/21 13:17 04/27/21 13:17 04/27/21 13:17 Weight: 400 lb Charges/Coding Procedures Integumentary 111xxx-113xx: [id number] Jessica subq tissue 20 sq cm/< Physical Exam Const alert and oriented x3 General Appearance: cooperative HEENT normocephalic Head and Scalp: atraumatic Eyes PERRL Lymph Lymphatic: no lymphedema noted Resp normal respiratory effort Cardio regular rate GI non-tender GI Narrative: Large pannus with obese abdomen Palpation: soft Extremity normal capillary refill Skin Wound Narrative: Left medial groin ulcer is pink without any signs of infection at this time, small amount of slough and less maceration this week Neuro CN's II-XII intact bilaterally Psych Thought Process: normal thought process Debridement Note Debridement Note Wound debrided: Left groin ulcer Laterality: Left Type of Debridement: Excisional debridement Anesthesia Used: 5% Lidocaine Gel Depth: Down to and including healthy tissue and in the subcutaneous layer Percentage of wound debrided: 100 Instrument Used: 5mm curette Tissue Removed: Slough and devitalized tissue Severity: Fat Layer Exposed Amount of bleeding with debridement: Mild Bleeding Controlled with: Pressure Patient tolerated procedure: Patient tolerated procedure well Post-Debridement Measurements and Additional Note: Post-Debridement Measurements/Treatment RAMÓN - Nurse 1 - General Ulcer Assessment Start: 04/27/21 13:17 Freq: Status: Active Protocol: FRANKY Activity Type Activity Date Activity User E-Sign Co-Sign Detail Recorded Client Recorded Date Recorded By Document 04/27/21 13:17 CRESENCIO [id number] 04/27/21 13:25 CRESENCIO 04/27/21 13:17 RAMÓN - Today's Visit Information Type of service Follow-up Visit (Physician/SENIOR MANAGER QUALITY ASSURANCE ) Arrival Mode Ambulatory Patient Identification Verified (Name & No ) Patient Requires Transmission-Based No Precautions Vital Signs Temperature (97.8 F-99.1 F) 97.8 F Temperature Source Temporal Pulse Rate (60-100) 79 Pulse Location Monitor Respiratory Rate (12-18) 20 H Respiratory rate source Observation Blood Pressure (90/60-120/80) 136/69 H Blood Pressure Mean (mm Hg) 91 Source Monitor History Since Last Visit- (Skip if this is Patient's initial visit) Have you changed medications since your No last visit? Any new allergies or adverse reactions No Had a fall/change in ADL's that may No increase risk of falls Signs or symptoms of abuse and/or No neglect since last visit Have you been in the hospital since your No last visit? Has dressing in place as prescribed Yes Has compression in place as prescribed N/A Has offloadiing in place as prescribed N/A Experienced any changes in pain level or No management Pain Scale: 0-10 Numeric Is Patient Pain Free? Yes RAMÓN Campos Nurse 1 - General Ulcer Measurement Start: 04/27/21 13:17 Freq: Status: Active Protocol: Activity Type Activity Date Activity User E-Sign Co-Sign Detail Recorded Client Recorded Date Recorded By Document 04/27/21 13:17 CRESENCIO [id number] 04/27/21 13:25 JF 04/27/21 13:17 Wound Center Nurse 1 #1- LEFT GROIN- POST OP -Current Size (cm) - Length 1 -Current Size (cm) - Width 5.9 -Current Size (cm) - Depth 0.3 -Total Square Cm 5.9 -Photo Taken No -Exudate Amt Medium -Exudate Type Serosanguineous -Wound Margin Distinct, Outline Attached -Granulation Amt Large (67-100%) -Granulation Quality Red -Necrosis Amt None Present (0 %) -Structure Exposed N/A -Texture (Inessa-wound Skin Appearance) Scarring -Moisture (Inessa-wound Skin Appearance) No Abnormality -Color (Inessa-wound Skin Appearance) No Abnormality -Temperature (Inessa-wound Skin No Abnormality Appearance) (Pt Warm) -Tenderness on Palpation (Inessa-wound No Skin Appearance) -Ulcer Cleansing Soap and Water -Foul Odor after Cleansing No -Anesthetic Used 4% Lidocaine Solution WC - Nurse 2 - General Ulcer CM Notes Start: 04/27/21 13:17 Freq: Status: Active Protocol: Activity Type Activity Date Activity User E-Sign Co-Sign Detail Recorded Client Recorded Date Recorded By Document 04/27/21 13:33 MW [id number] 04/27/21 13:40 MW 04/27/21 13:33 Wound Center Nurse 2 -Time 13:33 -Correct Patient Yes -Correct Side, Site, Position Yes -Correct Procedure Yes -Procedure Performed Yes -Type of Procedure Debridement -Clinical Debridement Subcutaneous -Tissue Removed Subcutaneous -Post Debridement (cm) - Length 1.4 -Post Debridement (cm) - Width 6.5 -Post Debridement (cm) - Depth 0.1 -Total Square (Post) (cm) 9.10 -Area of Debridement (cm) - Length 1.4 -Area of Debridement (cm) - Width 6.5 -Total Square (Area) (cm) 9.10 -Tunneling No -Undermining/Tunneling No -Circular Undermining No -Wound/Ulcer Outcome Not Healed -Ulcer Cleansing Rinsed/ Irrigated with Saline -Foul Odor after Cleansing No -Bioengineered Tissue No -Bleeding Controlled with Pressure -Offloading No -Treatment Response Procedure Tolerated Well -Debridement - Subq, 1st 20sq cm Yes Pain Scale: 0-10 Numeric Is Patient Pain Free? Yes WC - Nurse 3 - General Ulcer D/C NN Start: 04/27/21 13:17 Freq: Status: Active Protocol: Activity Type Activity Date Activity User E-Sign Co-Sign Detail Recorded Client Recorded Date Recorded By Document 04/27/21 13:46 ML [id number] 04/27/21 13:46 ML 04/27/21 13:46 Wound Care Nurse 3 #1- LEFT GROIN- POST OP -Ulcer Cleansing Rinsed/ Irrigated with Saline -Foul Odor after Cleansing No -Primary Dressing Applied Aquacel Extra -Other Dressing foam dressing -Aquacel Extra 1 Assessment/Plan Assessment/Plan (1) Non-healing surgical wound of left groin: CODE(S): T81.89XA - Other complications of procedures, not elsewhere classified, initial encounter PLAN: Debridement done as documented above, procedure was well-tolerated. Wound care will consist of alternating between silver cell and Aquacel extra cover with SAP foam dressing change once or twice daily and as needed. He would benefit from Intradry to place in his pannus folds to prevent the skin on skin friction. Optimal diabetes control again was discussed continue increase protein intake. His questions were answered and he was advised to call with any further questions or concerns. Follow-up in 2 weeks at the wound healing center or sooner if needed. Since he is still having delayed wound healing would like patient to have surgical consult again as his nonhealing wound has been present for since 2018. refer to plastic surgery at [facility]. This note was generated with [employer] dictation software. It may contain incorrect words, spelling, and punctuation that were not noted in checking the note before signing. (2) Abdominal panniculus: CODE(S): E65 - Localized adiposity (3) Type 2 diabetes mellitus: CODE(S): E11.9 - Type 2 diabetes mellitus without complications QUALIFIERS: Qualified Code(s): L98.499 - Non-pressure chronic ulcer of skin of other sites with unspecified severity (4) Morbid obesity: CODE(S): E66.01 - Morbid (severe) obesity due to excess calories
[2021-05-18 14:00] VITALS: BP 105/57; PULSE 95; TEMP 36.1
--- NOTE | 2021-05-18 16:24 | PN.PCM_ITS ---
History of Present Illness Date of Service: 05/18/21 Chief Complaint: Nonhealing wound status post surgical excision of necrotizing fasciitis left groin History of Wound: 46-year-old white male who presents to the wound healing center today with complaint of left groin ulceration status post surgical excision of necrotizing fasciitis. He is a past medical history which is significant for that of type 2 diabetes mellitus, gout, diabetic neuropathy, schizophrenia, bilateral lymphedema, and schizophrenia. The patient states that what initially started as a pimple in his left groin progressed to necrotizing fasciitis and he had to have this surgically debrided in April 2017. [facility] then [facility] for [facility] weeks afterwards. He states that the groin ulcer which extends to his left lower abdomen has been slowly improving and he has been doing daily Aquacel AG dressings with an ABD for the drainage. He does state that he has had 3 wound vacs in the past which were unable to be utilized due to the location of his wound. He denies any foul-smelling discharge or systemic signs of infection at this time. The patient otherwise denies any fever, chills, nausea, vomiting, shortness of breath, chest pain or pressure, palpitations, orthopnea, syncope or presyncopal episodes. Progress of Wound: Patient's wound patient's wound persists, he was referred previously to plastic surgery for consult [place] [facility] and according to patient they said that they would not be able to do anything for him and to utilize Margarette, patient does note more maceration since changing to Margarette Objective Data Objective Data Vital Signs: Vital Signs Temp Pulse Resp BP 96.9 F L 95 20 H 105/57 L 05/18/21 14:00 05/18/21 14:00 04/27/21 13:17 05/18/21 14:00 Weight: 400 lb Charges/Coding Procedures Integumentary 111xxx-113xx: [id number] Jessica subq tissue 20 sq cm/< Physical Exam Const alert and oriented x3 General Appearance: cooperative HEENT normocephalic Head and Scalp: atraumatic Eyes PERRL Lymph Lymphatic: no lymphedema noted Resp normal respiratory effort Cardio regular rate GI non-tender GI Narrative: Large pannus with obese abdomen Palpation: soft Extremity normal capillary refill Skin Wound Narrative: Left medial groin ulcer is pink without any signs of infection at this time, small amount of slough and moremaceration this week Neuro CN's II-XII intact bilaterally Psych Thought Process: normal thought process Debridement Note Debridement Note Wound debrided: Left medial groin ulcer Laterality: Left Type of Debridement: Excisional debridement Anesthesia Used: 5% Lidocaine Gel Depth: Down to and including healthy tissue and in the subcutaneous layer Percentage of wound debrided: 100 Instrument Used: 5mm curette Tissue Removed: Slough and devitalized tissue Severity: Fat Layer Exposed Amount of bleeding with debridement: Mild Bleeding Controlled with: Pressure Patient tolerated procedure: Patient tolerated procedure well Post-Debridement Measurements and Additional Note: Post-Debridement Measurements/Treatment RAMÓN - Nurse 1 - General Ulcer Assessment Start: 04/27/21 13:17 Freq: Status: Active Protocol: FRANKY Activity Type Activity Date Activity User E-Sign Co-Sign Detail Recorded Client Recorded Date Recorded By Document 04/27/21 13:17 CRESENCIO [id number] 04/27/21 13:25 CRESENCIO Document 05/18/21 14:00 AK [id number] 05/18/21 14:02 TN 04/27/21 05/18/21 13:17 14:00 - Today's Visit Information Type of service Follow-up Visit Follow-up Visit (Physician/IT ANALYST (Physician/IT ANALYST ) ) Arrival Mode Ambulatory Ambulatory Patient Identification Verified (Name & No Yes ) Patient Requires Transmission-Based No No Precautions Safety Precautions NA Vital Signs Temperature (97.8 F-99.1 F) 97.8 F 96.9 F L Temperature Source Temporal Temporal Pulse Rate (60-100) 79 95 Pulse Location Monitor Monitor Respiratory Rate (12-18) 20 H Respiratory rate source Observation Blood Pressure (90/60-120/80) 136/69 H 105/57 L Blood Pressure Mean (mm Hg) 91 73 Source Monitor Monitor History Since Last Visit- (Skip if this is Patient's initial visit) Have you changed medications since your No No last visit? Any new allergies or adverse reactions No No Had a fall/change in ADL's that may No No increase risk of falls Signs or symptoms of abuse and/or No No neglect since last visit Have you been in the hospital since your No No last visit? Has dressing in place as prescribed Yes Yes Has compression in place as prescribed N/A N/A Has offloadiing in place as prescribed N/A N/A Experienced any changes in pain level or No No management Right Footwear Regular Shoe Pain Scale: 0-10 Numeric Is Patient Pain Free? Yes Yes WC - Nurse 1 - General Ulcer Measurement Start: 04/27/21 13:17 Freq: Status: Active Protocol: Activity Type Activity Date Activity User E-Sign Co-Sign Detail Recorded Client Recorded Date Recorded By Document 04/27/21 13:17 [id number] 04/27/21 13:25 JF Document 05/18/21 14:00 AK [id number] 05/18/21 14:02 AK 04/27/21 05/18/21 13:17 14:00 Wound Center Nurse 1 #1- LEFT GROIN- POST OP -Combined with other wound No -Current Size (cm) - Length 1 3 -Current Size (cm) - Width 5.9 0.2 -Current Size (cm) - Depth 0.3 0.2 -Total Square Cm 5.9 0.6 -Photo Taken No No -Tunneling No -Undermining/Tunneling No -Circular Undermining No -Change in Wound Grade/Stage No -Exudate Amt Medium Small -Exudate Type Serosanguineous Serosanguineous -Wound Margin Distinct, Distinct, Outline Outline Attached Attached -Granulation Amt Large (67-100%) None Present (0 %) -Granulation Quality Red N/A -Slough/Fibrin No -Necrosis Amt None Present (0 Small (1-33%) %) -Structure Exposed N/A N/A -Texture (Inessa-wound Skin Appearance) Scarring Assessed, Scarring -Moisture (Inessa-wound Skin Appearance) No Abnormality Assessed, Maceration -Color (Inessa-wound Skin Appearance) No Abnormality No Abnormality, Assessed -Temperature (Inessa-wound Skin No Abnormality No Abnormality Appearance) (Pt Warm) (Pt Warm) -Tenderness on Palpation (Inessa-wound No No Skin Appearance) -Ulcer Cleansing Soap and Water Rinsed/ Irrigated with Saline -Foul Odor after Cleansing No No -Anesthetic Used 4% Lidocaine 4% Lidocaine Solution Solution WC - Nurse 2 - General Ulcer CM Notes Start: 04/27/21 13:17 Freq: Status: Active Protocol: Activity Type Activity Date Activity User E-Sign Co-Sign Detail Recorded Client Recorded Date Recorded By Document 04/27/21 13:33 MW [id number] 04/27/21 13:40 MW Document 05/18/21 14:04 MW [id number] 05/18/21 14:10 MW Edit Result 05/18/21 14:04 MW (1) [id number] 05/18/21 14:16 MW (1) #1- LEFT GROIN- POST OP - Bleeding Controlled with Pressure => Pressure,Silver => Nitrate 04/27/21 05/18/21 13:33 14:04 Wound Center Nurse 2 #1- LEFT GROIN- POST OP -Time 13:33 14:06 -Correct Patient Yes Yes -Correct Side, Site, Position Yes Yes -Correct Procedure Yes Yes -Procedure Performed Yes Yes -Type of Procedure Debridement Debridement -Clinical Debridement Subcutaneous Subcutaneous -Tissue Removed Subcutaneous Subcutaneous -Post Debridement (cm) - Length 1.4 1.1 -Post Debridement (cm) - Width 6.5 6.0 -Post Debridement (cm) - Depth 0.1 0.1 -Total Square (Post) (cm) 9.10 6.60 -Area of Debridement (cm) - Length 1.4 1.1 -Area of Debridement (cm) - Width 6.5 6.0 -Total Square (Area) (cm) 9.10 6.60 -Tunneling No No -Undermining/Tunneling No No -Circular Undermining No No -Wound/Ulcer Outcome Not Healed Not Healed -Ulcer Cleansing Rinsed/ Rinsed/ Irrigated with Irrigated with Saline Saline -Foul Odor after Cleansing No No -Bioengineered Tissue No No -Bleeding Controlled with Pressure Pressure,Silver Nitrate -Offloading No No -Treatment Response Procedure Procedure Tolerated Well Tolerated Well -Debridement - Subq, 1st 20sq cm Yes Yes Pain Scale: 0-10 Numeric Is Patient Pain Free? Yes Yes WC - Nurse 3 - General Ulcer D/C NN Start: 04/27/21 13:17 Freq: Status: Active Protocol: Activity Type Activity Date Activity User E-Sign Co-Sign Detail Recorded Client Recorded Date Recorded By Document 04/27/21 13:46 ML [id number] 04/27/21 13:46 ML Document 01/27/22 14:14 MW [id number] 05/18/21 14:15 MW 04/27/21 05/18/21 13:46 14:14 Wound Care Nurse 3 #1- LEFT GROIN- POST OP -Ulcer Cleansing Rinsed/ Rinsed/ Irrigated with Irrigated with Saline Saline -Foul Odor after Cleansing No -Primary Dressing Applied Aquacel Extra Aquacel Extra, Mepilex Border -Other Dressing foam dressing -Aquacel Extra 1 1 -Mepilex Border 1 Treatment Response Procedure Tolerated Well Pain Scale: 0-10 Numeric Is Patient Pain Free? Yes Teaching: Wound Center Dressing Your Wound -Person Taught Patient -Teaching Method Discussion -Response to teaching Verbalize understanding WC - Visit Discharge Discharge Condition Stable Ambulatory Status Cane Transportation Private Auto Accompanied by brother Medication Reconcilliation completed & No provided to patient/care provider Clinical Summary of Care Provided Yes Assessment/Plan Assessment/Plan (1) Non-healing surgical wound of left groin: CODE(S): T81.89XA - Other complications of procedures, not elsewhere classified, initial encounter PLAN: Debridement done as documented above, procedure was well-tolerated. Wound care will consist of alternating between silver cell and Aquacel extra cover with SAP foam dressing change once or twice daily and as needed. He would benefit from Intradry to place in his pannus folds to prevent the skin on skin friction. Optimal diabetes control again was discussed continue increase protein intake. His questions were answered and he was advised to call with any further questions or concerns. Follow-up in 2 weeks at the wound healing center or sooner if needed. Since he is still having delayed wound healing would like patient to have surgical consult again as his nonhealing wound has been present for since 2018. We will request surgical consult notes as patient states that he had this done last week. Given the continued delayed wound healing while apply for an advanced skin substitute. This note was generated with [employer] dictation software. It may contain incorrect words, spelling, and punctuation that were not noted in checking the note before signing. (2) Abdominal panniculus: CODE(S): E65 - Localized adiposity (3) Type 2 diabetes mellitus: CODE(S): E11.9 - Type 2 diabetes mellitus without complications QUALIFIERS: Qualified Code(s): L98.499 - Non-pressure chronic ulcer of skin of other sites with unspecified severity (4) Morbid obesity: CODE(S): E66.01 - Morbid (severe) obesity due to excess calories
== END 2021-05-22 23:59 ==
LOC: WC 13:45
PROVIDERS: Family Provider Family Medicine; PCP Family Medicine; Referring Provider Nurse Practitioner Family; Visit Provider Nurse Practitioner Family
DX: T81.89XA Other complications of procedures, not elsewhere classified, initial encounter (principal); F20.9 Schizophrenia, unspecified; L98.492 Non-pressure chronic ulcer of skin of other sites with fat layer exposed; E11.40 Type 2 diabetes mellitus with diabetic neuropathy, unspecified; E66.01 Morbid (severe) obesity due to excess calories; Z79.4 Long term (current) use of insulin; M10.9 Gout, unspecified; Z79.899 Other long term (current) drug therapy; I89.0 Lymphedema, not elsewhere classified
CPT/HCPCS: 11042

== ENCOUNTER 2021-06-19 15:00 | Outpatient (RCR) | payer MEDICARE, MEDICAID, SELFPAY ==
[2021-05-23 00:26] VITALS: BP 105/57; PULSE 95; RESP 20; TEMP 36.1
[2021-06-01 14:21] VITALS: BP 113/71; PULSE 82; RESP 20; TEMP 36.4
--- NOTE | 2021-06-01 16:40 | PN.PCM_ITS ---
History of Present Illness Date of Service: 06/01/21 Chief Complaint: Nonhealing wound status post surgical excision of necrotizing fasciitis left groin History of Wound: 46-year-old white male who presents to the wound healing center today with complaint of left groin ulceration status post surgical excision of necrotizing fasciitis. He is a past medical history which is significant for that of type 2 diabetes mellitus, gout, diabetic neuropathy, schizophrenia, bilateral lymphedema, and schizophrenia. The patient states that what initially started as a pimple in his left groin progressed to necrotizing fasciitis and he had to have this surgically debrided in April 2017. He was admitted to [facility] 2 weeks and then [facility] for 6 weeks afterwards. He states that the groin ulcer which extends to his left lower abdomen has been slowly improving and he has been doing daily Aquacel AG dressings with an ABD for the drainage. He does state that he has had 3 wound vacs in the past which were unable to be utilized due to the location of his wound. He denies any foul-smelling discharge or systemic signs of infection at this time. The patient otherwise denies any fever, chills, nausea, vomiting, shortness of breath, chest pain or pressure, palpitations, orthopnea, syncope or presyncopal episodes. Progress of Wound: Stable?no new concerns, patient's approval for Epifix is pending at this time Objective Data Objective Data Vital Signs: Vital Signs Temp Pulse Resp BP 97.6 F L 82 20 H 113/71 06/01/21 14:21 06/01/21 14:21 06/01/21 14:21 06/01/21 14:21 Weight: 400 lb Charges/Coding Procedures Integumentary 111xxx-113xx: 34189 Jessica subq tissue 20 sq cm/< Physical Exam Const alert and oriented x3 General Appearance: cooperative HEENT normocephalic Head and Scalp: atraumatic Eyes PERRL Lymph Lymphatic: no lymphedema noted Resp normal respiratory effort Cardio regular rate GI non-tender GI Narrative: Large pannus with obese abdomen Palpation: soft Extremity normal capillary refill Skin Wound Narrative: Left medial groin ulcer is pink without any signs of infection at this time, small amount of slough and more maceration this week Neuro CN's II-XII intact bilaterally Psych Thought Process: normal thought process Debridement Note Debridement Note Wound debrided: Left groin ulcer status post necrotizing fasciitis Laterality: Left Type of Debridement: Excisional debridement Anesthesia Used: 4% Lidocaine Solution Depth: Down to and including healthy tissue and in the subcutaneous layer Percentage of wound debrided: 100 Instrument Used: 5mm curette Tissue Removed: Slough and devitalized tissue Severity: Fat Layer Exposed Amount of bleeding with debridement: Mild Bleeding Controlled with: Pressure Patient tolerated procedure: Patient tolerated procedure well Post-Debridement Measurements and Additional Note: Post-Debridement Measurements/Treatment - Nurse 1 - General Ulcer Assessment Start: 06/01/21 14:21 Freq: Status: Active Protocol: FRANKY Activity Type Activity Date Activity User E-Sign Co-Sign Detail Recorded Client Recorded Date Recorded By Document 06/01/21 14:21 ML [id number] 06/01/21 14:29 ML 06/01/21 14:21 WC - Today's Visit Information Type of service Follow-up Visit (Physician/MANAGER RESOURCE ) Arrival Mode Ambulatory Transfer Assistance None Patient Identification Verified (Name & Yes ) Patient Requires Transmission-Based No Precautions Safety Precautions NA Vital Signs Temperature (97.8 F-99.1 F) 97.6 F L Temperature Source Temporal Pulse Rate (60-100) 82 Pulse Location Monitor Respiratory Rate (12-18) 20 H Respiratory rate source Observation Blood Pressure (90/60-120/80) 113/71 Blood Pressure Mean (mm Hg) 85 Source Monitor History Since Last Visit- (Skip if this is Patient's initial visit) Have you changed medications since your No last visit? Any new allergies or adverse reactions No Had a fall/change in ADL's that may No increase risk of falls Signs or symptoms of abuse and/or No neglect since last visit Have you been in the hospital since your No last visit? Has dressing in place as prescribed Yes Has compression in place as prescribed N/A Has offloadiing in place as prescribed N/A Experienced any changes in pain level or No management Left Footwear Regular Shoe Right Footwear Regular Shoe Pain Scale: 0-10 Numeric Is Patient Pain Free? Yes - Nurse 1 - General Ulcer Measurement Start: 06/01/21 14:21 Freq: Status: Active Protocol: Activity Type Activity Date Activity User E-Sign Co-Sign Detail Recorded Client Recorded Date Recorded By Document 06/01/21 14:21 ML [id number] 06/01/21 14:29 ML 06/01/21 14:21 Wound Center Nurse 1 #1- LEFT GROIN- POST OP -Current Size (cm) - Length 1 -Current Size (cm) - Width 6 -Current Size (cm) - Depth 0.1 -Total Square Cm 6 -Exudate Type Serous -Wound Margin Distinct, Outline Attached -Granulation Amt Medium (34-66%) -Necrosis Amt Medium (34-66%) -Necrotic Tissue Type Adherent Slough -Texture (Inessa-wound Skin Appearance) Assessed -Moisture (Inessa-wound Skin Appearance) Maceration -Color (Inessa-wound Skin Appearance) Assessed -Temperature (Inessa-wound Skin No Abnormality Appearance) (Pt Warm) -Tenderness on Palpation (Inessa-wound No Skin Appearance) -Ulcer Cleansing Rinsed/ Irrigated with Saline -Foul Odor after Cleansing No -Anesthetic Used 4% Lidocaine Solution WC - Nurse 2 - General Ulcer CM Notes Start: 06/01/21 14:21 Freq: Status: Active Protocol: Activity Type Activity Date Activity User E-Sign Co-Sign Detail Recorded Client Recorded Date Recorded By Document 06/01/21 14:46 MW [id number] 06/01/21 14:53 MW 06/01/21 14:46 Wound Center Nurse 2 -Time 14:49 -Correct Patient Yes -Correct Side, Site, Position Yes -Correct Procedure Yes -Procedure Performed Yes -Type of Procedure Debridement -Clinical Debridement Subcutaneous -Tissue Removed Subcutaneous -Post Debridement (cm) - Length 11.5 -Post Debridement (cm) - Width 1.3 -Post Debridement (cm) - Depth 0.1 -Total Square (Post) (cm) 14.95 -Area of Debridement (cm) - Length 11.5 -Area of Debridement (cm) - Width 1.3 -Total Square (Area) (cm) 14.95 -Tunneling No -Undermining/Tunneling No -Circular Undermining No -Wound/Ulcer Outcome Not Healed -Ulcer Cleansing Rinsed/ Irrigated with Saline -Foul Odor after Cleansing No -Bioengineered Tissue No -Bleeding Controlled with Pressure,Silver Nitrate -Offloading No -Treatment Response Procedure Tolerated Well -Debridement - Subq, 1st 20sq cm Yes Pain Scale: 0-10 Numeric Is Patient Pain Free? Yes WC - Nurse 3 - General Ulcer D/C NN Start: 06/01/21 14:21 Freq: Status: Active Protocol: Activity Type Activity Date Activity User E-Sign Co-Sign Detail Recorded Client Recorded Date Recorded By Document 06/01/21 15:07 ML [id number] 06/01/21 15:08 ML 06/01/21 15:07 Wound Care Nurse 3 #1- LEFT GROIN- POST OP -Ulcer Cleansing Rinsed/ Irrigated with Saline -Foul Odor after Cleansing No -Primary Dressing Applied Aquacel Extra -Other Dressing foam dressing -Primary Dressing Covered/Secured with Dry Gauze -Aquacel Extra 1 Pain Scale: 0-10 Numeric Is Patient Pain Free? Yes Assessment/Plan Assessment/Plan (1) Non-healing surgical wound of left groin: CODE(S): T81.89XA - Other complications of procedures, not elsewhere classified, initial encounter PLAN: Debridement done as documented above, procedure was well-tolerated. Wound care will consist of alternating between silver cell and Aquacel extra cover gauze and with SAP foam dressing change once or twice daily and as needed. He would benefit from Intradry to place in his pannus folds to prevent the skin on skin friction. Optimal diabetes control again was discussed continue increase protein intake. His questions were answered and he was advised to call with any further questions or concerns. Follow-up in 2 weeks at the wound healing center or sooner if needed. Since he is still having delayed wound healing would like patient to have surgical consult again as his nonhealing wound has been present for since 2018. We will request surgical consult notes as patient states that he had this done last week. Given the continued delayed wound healing will apply for an advanced skin substitute. This note was generated with [employer] dictation software. It may contain incorrect words, spelling, and punctuation that were not noted in checking the note before signing. (2) Abdominal panniculus: CODE(S): E65 - Localized adiposity (3) Type 2 diabetes mellitus: CODE(S): E11.9 - Type 2 diabetes mellitus without complications QUALIFIERS: Qualified Code(s): L98.499 - Non-pressure chronic ulcer of skin of other sites with unspecified severity (4) Morbid obesity: CODE(S): E66.01 - Morbid (severe) obesity due to excess calories
[2021-06-08 13:28] VITALS: BP 130/73; PULSE 89; RESP 18; TEMP 35.5
--- NOTE | 2021-06-08 16:24 | PN.PCM_ITS ---
History of Present Illness Date of Service: 06/08/21 Chief Complaint: Nonhealing wound status post surgical excision of necrotizing fasciitis left groin History of Wound: 46-year-old white male who presents to the wound healing center today with complaint of left groin ulceration status post surgical excision of necrotizing fasciitis. He is a past medical history which is significant for that of type 2 diabetes mellitus, gout, diabetic neuropathy, schizophrenia, bilateral lymphedema, and schizophrenia. The patient states that what initially started as a pimple in his left groin progressed to necrotizing fasciitis and he had to have this surgically debrided in April 2017. He was admitted to [facility] for 2 weeks and then [facility] for 6 weeks afterwards. He states that the groin ulcer which extends to his left lower abdomen has been slowly improving and he has been doing daily Aquacel AG dressings with an ABD for the drainage. He does state that he has had 3 wound vacs in the past which were unable to be utilized due to the location of his wound. He denies any foul-smelling discharge or systemic signs of infection at this time. The patient otherwise denies any fever, chills, nausea, vomiting, shortness of breath, chest pain or pressure, palpitations, orthopnea, syncope or presyncopal episodes. Progress of Wound: Stable?no new concerns, given the delayed wound healing will apply for TheraSkin and also will try to get patient back in with Dr. Luo for an evaluation Objective Data Objective Data Vital Signs: Vital Signs Temp Pulse Resp BP 95.9 F L 89 18 130/73 H 06/08/21 13:28 06/08/21 13:28 06/08/21 13:28 06/08/21 13:28 Oxygen Delivery Method Room Air Weight: 400 lb Charges/Coding Procedures Integumentary 111xxx-113xx: 24284 Jessica subq tissue 20 sq cm/< Physical Exam Const alert and oriented x3 General Appearance: cooperative HEENT normocephalic Head and Scalp: atraumatic Eyes PERRL Lymph Lymphatic: no lymphedema noted Resp normal respiratory effort Cardio regular rate GI non-tender GI Narrative: Large pannus with obese abdomen Palpation: soft Extremity normal capillary refill Skin Wound Narrative: Left medial groin ulcer is pink without any signs of infection at this time, small amount of slough and more maceration this week Neuro CN's II-XII intact bilaterally Psych Thought Process: normal thought process Debridement Note Debridement Note Wound debrided: Left groin ulcer Laterality: Left Type of Debridement: Excisional debridement Anesthesia Used: 4% Lidocaine Solution Depth: Down to and including healthy tissue and in the subcutaneous layer Percentage of wound debrided: 100 Instrument Used: 5mm curette Tissue Removed: Slough devitalized tissue Severity: Fat Layer Exposed Amount of bleeding with debridement: Mild Bleeding Controlled with: Pressure Patient tolerated procedure: Patient tolerated procedure well Post-Debridement Measurements and Additional Note: Post-Debridement Measurements/Treatment - Nurse 1 - General Ulcer Assessment Start: 06/01/21 14:21 Freq: Status: Active Protocol: [employer] Activity Type Activity Date Activity User E-Sign Co-Sign Detail Recorded Client Recorded Date Recorded By Document 06/01/21 14:21 ML [id number] 06/01/21 14:29 ML Document 06/08/21 13:28 [facility] [id number] 06/08/21 13:36 [facility] 06/01/21 06/08/21 14:21 13:28 - Today's Visit Information Type of service Follow-up Visit Follow-up Visit (Physician/MORGUE TECHNICIAN (Physician/MORGUE TECHNICIAN ) ) Arrival Mode Ambulatory Ambulatory Transfer Assistance None None Patient Identification Verified (Name & Yes Yes ) Patient Requires Transmission-Based No No Precautions Safety Precautions NA Finger Stick Blood Sugar(mg/dl) (if 115 indicated): Blood Sugar Stated by Patient Vital Signs Temperature (97.8 F-99.1 F) 97.6 F L 95.9 F L Temperature Source Temporal Temporal Pulse Rate (60-100) 82 89 Pulse Location Monitor Monitor Respiratory Rate (12-18) 20 H 18 Respiratory rate source Observation Observation Oxygen Delivery Method Room Air Blood Pressure (90/60-120/80) 113/71 130/73 H Blood Pressure Mean (mm Hg) 85 92 Source Monitor Monitor Position Sitting Blood Pressure Location Right Forearm History Since Last Visit- (Skip if this is Patient's initial visit) Have you changed medications since your No No last visit? Any new allergies or adverse reactions No No Had a fall/change in ADL's that may No No increase risk of falls Signs or symptoms of abuse and/or No No neglect since last visit Have you been in the hospital since your No No last visit? Has dressing in place as prescribed Yes Yes Has compression in place as prescribed N/A N/A Has offloadiing in place as prescribed N/A N/A Experienced any changes in pain level or No No management Left Footwear Regular Shoe Regular Shoe Right Footwear Regular Shoe Regular Shoe Pain Scale: 0-10 Numeric Is Patient Pain Free? Yes Yes RAMÓN - Nurse 1 - General Ulcer Measurement Start: 06/01/21 14:21 Freq: Status: Active Protocol: Activity Type Activity Date Activity User E-Sign Co-Sign Detail Recorded Client Recorded Date Recorded By Document 06/01/21 14:21 ML [id number] 06/01/21 14:29 ML Document 06/08/21 13:28 BM [id number] 06/08/21 13:36 BMF 06/01/21 06/08/21 14:21 13:28 Wound Center Nurse 1 #1- LEFT GROIN- POST OP -Current Size (cm) - Length 1 1 -Current Size (cm) - Width 6 6.4 -Current Size (cm) - Depth 0.1 0.2 -Total Square Cm 6 6.4 -Date of Last Picture (Recall this 06/08/21 field) -Photo Taken Yes -Epithelialization None Present -Tunneling No -Undermining/Tunneling No -Circular Undermining No -Exudate Amt Medium -Exudate Type Serous Serosanguineous -Wound Margin Distinct, Distinct, Outline Outline Attached Attached -Granulation Amt Medium (34-66%) Large (67-100%) -Granulation Quality [place] -Slough/Fibrin Yes -Necrosis Amt Medium (34-66%) Small (1-33%) -Necrotic Tissue Type Adherent Slough Adherent Slough -Texture (Inessa-wound Skin Appearance) Assessed Assessed, Scarring -Moisture (Inessa-wound Skin Appearance) Maceration Assessed -Color (Inessa-wound Skin Appearance) Assessed Assessed -Temperature (Inessa-wound Skin No Abnormality No Abnormality Appearance) (Pt Warm) (Pt Warm) -Tenderness on Palpation (Inessa-wound No No Skin Appearance) -Ulcer Cleansing Rinsed/ Soap and Water Irrigated with Saline -Foul Odor after Cleansing No No -Anesthetic Used 4% Lidocaine 4% Lidocaine Solution Solution RAMÓN - Nurse 2 - General Ulcer CM Notes Start: 06/01/21 14:21 Freq: Status: Active Protocol: Activity Type Activity Date Activity User E-Sign Co-Sign Detail Recorded Client Recorded Date Recorded By Document 06/01/21 14:46 MW [id number] 06/01/21 14:53 MW Document 06/08/21 14:04 MW [id number] 06/08/21 14:10 MW 06/01/21 06/08/21 14:46 14:04 Wound Center Nurse 2 #1- LEFT GROIN- POST OP -Time 14:49 14:04 -Correct Patient Yes Yes -Correct Side, Site, Position Yes Yes -Correct Procedure Yes Yes -Procedure Performed Yes Yes -Type of Procedure Debridement Debridement -Clinical Debridement Subcutaneous Subcutaneous -Tissue Removed Subcutaneous Subcutaneous -Post Debridement (cm) - Length 11.5 1.3 -Post Debridement (cm) - Width 1.3 11.0 -Post Debridement (cm) - Depth 0.1 0.1 -Total Square (Post) (cm) 14.95 14.30 -Area of Debridement (cm) - Length 11.5 1.3 -Area of Debridement (cm) - Width 1.3 11.0 -Total Square (Area) (cm) 14.95 14.30 -Tunneling No No -Undermining/Tunneling No No -Circular Undermining No No -Wound/Ulcer Outcome Not Healed Not Healed -Ulcer Cleansing Rinsed/ Rinsed/ Irrigated with Irrigated with Saline Saline -Foul Odor after Cleansing No No -Bioengineered Tissue No No -Bleeding Controlled with Pressure,Silver Pressure Nitrate -Offloading No No -Treatment Response Procedure Procedure Tolerated Well Tolerated Well -Debridement - Subq, 1st 20sq cm Yes Yes Pain Scale: 0-10 Numeric Is Patient Pain Free? Yes Yes WC - Nurse 3 - General Ulcer D/C NN Start: 06/01/21 14:21 Freq: Status: Active Protocol: Activity Type Activity Date Activity User E-Sign Co-Sign Detail Recorded Client Recorded Date Recorded By Document 06/01/21 15:07 ML [id number] 06/01/21 15:08 ML Document 06/08/21 14:18 MW [id number] 06/08/21 14:19 MW 06/01/21 06/08/21 15:07 14:18 Wound Care Nurse 3 #1- LEFT GROIN- POST OP -Ulcer Cleansing Rinsed/ Rinsed/ Irrigated with Irrigated with Saline Saline -Foul Odor after Cleansing No No -Negative Pressure Wound Therapy N/A -Primary Dressing Applied Aquacel Extra Aquacel Extra, Mepilex Border -Other Dressing foam dressing -Primary Dressing Covered/Secured with Dry Gauze -Aquacel Extra 1 1 -Mepilex Border 1 Treatment Response Procedure Tolerated Well Pain Scale: 0-10 Numeric Is Patient Pain Free? Yes Yes Teaching: Wound Center Dressing Your Wound -Person Taught Patient -Teaching Method Discussion, Demonstration -Response to teaching Verbalize understanding WC - Visit Discharge Discharge Condition Stable Ambulatory Status Ambulatory Transportation Private Auto Accompanied by brother Medication Reconcilliation completed & No provided to patient/care provider Clinical Summary of Care Provided Yes Assessment/Plan Assessment/Plan (1) Non-healing surgical wound of left groin: CODE(S): T81.89XA - Other complications of procedures, not elsewhere classified, initial encounter PLAN: Debridement done as documented above, procedure was well-tolerated. Wound care will consist of alternating between silver cell and Aquacel extra cover gauze and with SAP foam dressing change once or twice daily and as needed. He would benefit from Intradry to place in his pannus folds to prevent the skin on skin friction. Optimal diabetes control again was discussed continue increase protein intake. His questions were answered and he was advised to call with any further questions or concerns. Follow-up in 2 weeks at the wound healing center or sooner if needed. Since he is still having delayed wound healing would like patient to have surgical consult again as his nonhealing wound has been present for since 2018. We will request surgical consult notes as patient states that he had this done last week. Given the continued delayed wound healing will apply for an advanced skin substitute. This note was generated with [employer] dictation software. It may contain incorrect words, spelling, and punctuation that were not noted in checking the note before signing. (2) Abdominal panniculus: CODE(S): E65 - Localized adiposity (3) Type 2 diabetes mellitus: CODE(S): E11.9 - Type 2 diabetes mellitus without complications QUALIFIERS: Qualified Code(s): L98.499 - Non-pressure chronic ulcer of skin of other sites with unspecified severity (4) Morbid obesity: CODE(S): E66.01 - Morbid (severe) obesity due to excess calories
[2021-06-15 13:45] VITALS: BP 119/59; PULSE 87; RESP 20; TEMP 36.4
--- NOTE | 2021-06-15 17:03 | PCM.WC.PN ---
History of Present Illness Date of Service: 06/15/21 Chief Complaint: Nonhealing wound status post surgical excision of necrotizing fasciitis left groin History of Wound: 46-year-old white male who presents to the wound healing center today with complaint of left groin ulceration status post surgical excision of necrotizing fasciitis. He is a past medical history which is significant for that of type 2 diabetes mellitus, gout, diabetic neuropathy, schizophrenia, bilateral lymphedema, and schizophrenia. The patient states that what initially started as a pimple in his left groin progressed to necrotizing fasciitis and he had to have this surgically debrided in April 2017. He was admitted to [facility] for 2 weeks and then [facility] for 6 weeks afterwards. He states that the groin ulcer which extends to his left lower abdomen has been slowly improving and he has been doing daily Aquacel AG dressings with an ABD for the drainage. He does state that he has had 3 wound vacs in the past which were unable to be utilized due to the location of his wound. He denies any foul-smelling discharge or systemic signs of infection at this time. The patient otherwise denies any fever, chills, nausea, vomiting, shortness of breath, chest pain or pressure, palpitations, orthopnea, syncope or presyncopal episodes. Progress of Wound: Stable?no new concerns, given the delayed wound healing will apply for TheraSkin and also will try to get patient back in with Dr. Luo for an evaluation, first application of TheraSkin was applied today 13 cm? was utilized and 100% was used. Objective Data Objective Data Vital Signs: Vital Signs Temp Pulse Resp BP 97.5 F L 87 20 H 119/59 L 06/15/21 13:45 06/15/21 13:45 06/15/21 13:45 06/15/21 13:45 Oxygen Delivery Method Room Air Weight: 400 lb Lab / Micro Data Micro: Microbiology 06/08/21 14:10 Wound - Groin Gram Stain - Final 06/08/21 14:10 Wound - Groin Wound Culture - Final Corynebacterium striatum 06/08/21 14:10 Wound - Groin Anaerobic Culture - Final No anaerobic bacteria isolated. Charges/Coding Procedures Integumentary 150xxx-152xx: [id number] Skin sub graft face/nk/hf/g Physical Exam Const alert and oriented x3 General Appearance: cooperative HEENT normocephalic Head and Scalp: atraumatic Eyes PERRL Lymph Lymphatic: no lymphedema noted Resp normal respiratory effort Cardio regular rate GI non-tender GI Narrative: Large pannus with obese abdomen Palpation: soft Extremity normal capillary refill Skin Wound Narrative: Left medial groin ulcer is pink without any signs of infection at this time, small amount of slough and more maceration this week Neuro CN's II-XII intact bilaterally Psych Thought Process: normal thought process Debridement Note Debridement Note Wound debrided: Left groin ulcer Laterality: Left Type of Debridement: Excisional debridement Anesthesia Used: 5% Lidocaine Gel Depth: Down to and including healthy tissue and in the subcutaneous layer Percentage of wound debrided: 100 Instrument Used: 3mm curette Tissue Removed: Slough and devitalized tissue Severity: Fat Layer Exposed Amount of bleeding with debridement: Mild Bleeding Controlled with: Pressure and Compression and gauze Patient tolerated procedure: Patient tolerated procedure well Post-Debridement Measurements and Additional Note: Post-Debridement Measurements/Treatment - Nurse 1 - General Ulcer Assessment Start: 06/01/21 14:21 Freq: Status: Active Protocol: FRANKY Activity Type Activity Date Activity User E-Sign Co-Sign Detail Recorded Client Recorded Date Recorded By Document 06/01/21 14:21 ML [id number] 06/01/21 14:29 ML Document 06/08/21 13:28 [facility] [id number] 06/08/21 13:36 BMF Document 06/15/21 13:45 DL [id number] 06/15/21 13:52 DL 06/01/21 06/08/21 06/15/21 14:21 13:28 13:45 - Today's Visit Information Type of service Follow-up Visit Follow-up Visit Follow-up Visit (Physician/SUPERINTENDENT SYSTEM OPERATION (Physician/SUPERINTENDENT SYSTEM OPERATION (Physician/SUPERINTENDENT SYSTEM OPERATION ) ) ) Arrival Mode Ambulatory Ambulatory Ambulatory Transfer Assistance None None None Patient Identification Verified (Name & Yes Yes Yes ) Patient Requires Transmission-Based No No No Precautions Safety Precautions NA Finger Stick Blood Sugar(mg/dl) (if 115 102 indicated): Blood Sugar Stated by Stated by Patient Patient Vital Signs Temperature (97.8 F-99.1 F) 97.6 F L 95.9 F L 97.5 F L Temperature Source Temporal Temporal Temporal Pulse Rate (60-100) 82 89 87 Pulse Location Monitor Monitor Monitor Respiratory Rate (12-18) 20 H 18 20 H Respiratory rate source Observation Observation Oxygen Delivery Method Room Air Blood Pressure (90/60-120/80) 113/71 130/73 H 119/59 L Blood Pressure Mean (mm Hg) 85 92 79 Source Monitor Monitor Monitor Position Sitting Blood Pressure Location Right Forearm History Since Last Visit- (Skip if this is Patient's initial visit) Have you changed medications since your No No No last visit? Any new allergies or adverse reactions No No No Had a fall/change in ADL's that may No No No increase risk of falls Signs or symptoms of abuse and/or No No No neglect since last visit Have you been in the hospital since your No No No last visit? Has dressing in place as prescribed Yes Yes Yes Has compression in place as prescribed N/A N/A N/A Has offloadiing in place as prescribed N/A N/A N/A Experienced any changes in pain level or No No Yes management Left Footwear Regular Shoe Regular Shoe Right Footwear Regular Shoe Regular Shoe Pain Scale: 0-10 Numeric Is Patient Pain Free? Yes Yes Yes WC - Nurse 1 - General Ulcer Measurement Start: 06/01/21 14:21 Freq: Status: Active Protocol: Activity Type Activity Date Activity User E-Sign Co-Sign Detail Recorded Client Recorded Date Recorded By Document 06/01/21 14:21 ML [id number] 06/01/21 14:29 ML Document 06/08/21 13:28 BM [id number] 06/08/21 13:36 BMF Document 06/15/21 13:45 DL [id number] 06/15/21 13:52 DL 06/01/21 06/08/21 06/15/21 14:21 13:28 13:45 Wound Center Nurse 1 #1- LEFT GROIN- POST OP -Current Size (cm) - Length 1 1 1 -Current Size (cm) - Width 6 6.4 13.8 -Current Size (cm) - Depth 0.1 0.2 0.8 -Total Square Cm 6 6.4 13.8 -Date of Last Picture (Recall this 06/08/21 field) -Photo Taken Yes No -Epithelialization None Present -Tunneling No -Undermining/Tunneling No -Circular Undermining No -Exudate Amt Medium Medium -Exudate Type Serous Serosanguineous Serosanguineous -Wound Margin Distinct, Distinct, Thickened & Outline Outline Rolled Under Attached Attached -Granulation Amt Medium (34-66%) Large (67-100%) Large (67-100%) -Granulation Quality [place],Red -Slough/Fibrin Yes -Necrosis Amt Medium (34-66%) Small (1-33%) Small (1-33%) -Necrotic Tissue Type Adherent Slough Adherent Slough Adherent Slough -Structure Exposed N/A -Texture (Inessa-wound Skin Appearance) Assessed Assessed, Scarring Scarring -Moisture (Inessa-wound Skin Appearance) Maceration Assessed No Abnormality -Color (Inessa-wound Skin Appearance) Assessed Assessed No Abnormality -Temperature (Inessa-wound Skin No Abnormality No Abnormality No Abnormality Appearance) (Pt Warm) (Pt Warm) (Pt Warm) -Tenderness on Palpation (Inessa-wound No No Skin Appearance) -Ulcer Cleansing Rinsed/ Soap and Water Soap and Water Irrigated with Saline -Foul Odor after Cleansing No No No -Anesthetic Used 4% Lidocaine 4% Lidocaine 4% Lidocaine Solution Solution Solution WC - Nurse 2 - General Ulcer CM Notes Start: 06/01/21 14:21 Freq: Status: Active Protocol: Activity Type Activity Date Activity User E-Sign Co-Sign Detail Recorded Client Recorded Date Recorded By Document 06/01/21 14:46 MW [id number] 06/01/21 14:53 MW Document 06/08/21 14:04 MW [id number] 06/08/21 14:10 MW Document 06/15/21 14:03 MW [id number] 06/15/21 14:12 MW 06/01/21 06/08/21 06/15/21 14:46 14:04 14:03 Wound Center Nurse 2 #1- LEFT GROIN- POST OP -Time 14:49 14:04 14:11 -Correct Patient Yes Yes Yes -Correct Side, Site, Position Yes Yes Yes -Correct Procedure Yes Yes Yes -Procedure Performed Yes Yes Yes -Type of Procedure Debridement Debridement Debridement -Clinical Debridement Subcutaneous Subcutaneous Subcutaneous -Tissue Removed Subcutaneous Subcutaneous Subcutaneous -Post Debridement (cm) - Length 11.5 1.3 1.5 -Post Debridement (cm) - Width 1.3 11.0 10.5 -Post Debridement (cm) - Depth 0.1 0.1 0.1 -Total Square (Post) (cm) 14.95 14.30 15.75 -Area of Debridement (cm) - Length 11.5 1.3 1.5 -Area of Debridement (cm) - Width 1.3 11.0 10.5 -Total Square (Area) (cm) 14.95 14.30 15.75 -Tunneling No No No -Undermining/Tunneling No No No -Circular Undermining No No No -Wound/Ulcer Outcome Not Healed Not Healed Not Healed -Ulcer Cleansing Rinsed/ Rinsed/ Rinsed/ Irrigated with Irrigated with Irrigated with Saline Saline Saline -Foul Odor after Cleansing No No No -Bioengineered Tissue No No Yes -Type of Bioengineered Tissue Theraskin -Expiration Date 05/07/24 -Product Lot Number [id number] -Percent Used 100 -Lot number of Saline Used [id number] -Bleeding Controlled with Pressure,Silver Pressure Pressure Nitrate -Offloading No No No -Treatment Response Procedure Procedure Procedure Tolerated Well Tolerated Well Tolerated Well -Debridement - Subq, 1st 20sq cm Yes Yes No -Apply Skin Sub - 1st 25 sq cm - Legs 1 -Theraskin (per sq cm) 13 Pain Scale: 0-10 Numeric Is Patient Pain Free? Yes Yes Yes WC - Nurse 3 - General Ulcer D/C NN Start: 06/01/21 14:21 Freq: Status: Active Protocol: Activity Type Activity Date Activity User E-Sign Co-Sign Detail Recorded Client Recorded Date Recorded By Document 06/01/21 15:07 ML [id number] 06/01/21 15:08 ML Document 06/08/21 14:18 MW [id number] 06/08/21 14:19 MW Document 06/15/21 14:13 MW [id number] 06/15/21 14:14 MW 06/01/21 06/08/21 06/15/21 15:07 14:18 14:13 Wound Care Nurse 3 #1- LEFT GROIN- POST OP -Ulcer Cleansing Rinsed/ Rinsed/ Not Cleansed Irrigated with Irrigated with Saline Saline -Foul Odor after Cleansing No No No -Negative Pressure Wound Therapy N/A N/A -Primary Dressing Applied Aquacel Extra Aquacel Extra, Aquacel Extra, Mepilex Border Mepilex Border -Other Dressing foam dressing -Primary Dressing Covered/Secured with Dry Gauze -Aquacel Extra 1 1 1 -Mepilex Border 1 1 Treatment Response Procedure Procedure Tolerated Well Tolerated Well Pain Scale: 0-10 Numeric Is Patient Pain Free? Yes Yes Yes Teaching: Wound Center Dressing Your Wound -Person Taught Patient Patient -Teaching Method Discussion, Discussion, Demonstration Demonstration -Response to teaching Verbalize Verbalize understanding understanding WC - Visit Discharge Discharge Condition Stable Stable Ambulatory Status Ambulatory Ambulatory Transportation Private Auto Private Auto Accompanied by brother brother Medication Reconcilliation completed & No No provided to patient/care provider Clinical Summary of Care Provided Yes Yes Assessment/Plan Assessment/Plan (1) Non-healing surgical wound of left groin: CODE(S): T81.89XA - Other complications of procedures, not elsewhere classified, initial encounter PLAN: Debridement done as documented above, procedure was well-tolerated. 13 cm? TheraSkin product was utilized, 100% was used, it was secured with Dermabond and covered with wound veil and Steri-Strips and then Aquacel extra for drainage and an [place] SAP, patient tolerated the procedure well and will have the top layer changed out in 3 to 4 days. He would benefit from Intradry to place in his pannus folds to prevent the skin on skin friction. Optimal diabetes control again was discussed continue increase protein intake. His questions were answered and he was advised to call with any further questions or concerns. Follow-up in 1 weeks at the wound healing center or sooner if needed. Since he is still having delayed wound healing would like patient to have surgical consult again as his nonhealing wound has been present for since 2018. We will request surgical consult notes as patient states that he had this done last week. Given the continued delayed wound healing will apply for an advanced skin substitute. This note was generated with [employer] dictation software. It may contain incorrect words, spelling, and punctuation that were not noted in checking the note before signing. (2) Abdominal panniculus: CODE(S): E65 - Localized adiposity (3) Type 2 diabetes mellitus: CODE(S): E11.9 - Type 2 diabetes mellitus without complications QUALIFIERS: Qualified Code(s): L98.499 - Non-pressure chronic ulcer of skin of other sites with unspecified severity (4) Morbid obesity: CODE(S): E66.01 - Morbid (severe) obesity due to excess calories
[2021-06-19 14:54] VITALS: RESP 20; TEMP 36.1
== END 2021-06-19 23:59 | disposition home or self-care (01) ==
LOC: WC 15:00
PROVIDERS: Family Provider Family Medicine; PCP Family Medicine; Referring Provider Nurse Practitioner Family; Visit Provider Nurse Practitioner Family
DX: T81.89XA Other complications of procedures, not elsewhere classified, initial encounter (principal); F20.9 Schizophrenia, unspecified; L98.492 Non-pressure chronic ulcer of skin of other sites with fat layer exposed; E11.40 Type 2 diabetes mellitus with diabetic neuropathy, unspecified; E66.01 Morbid (severe) obesity due to excess calories; Z79.4 Long term (current) use of insulin; Z79.899 Other long term (current) drug therapy; I89.0 Lymphedema, not elsewhere classified
CPT/HCPCS: 11042; 15271; 87070; 87075; 87077; 87205; 99212; Q4121; G0463

== ENCOUNTER 2021-07-20 13:15 | Outpatient (RCR) | payer MEDICARE, MEDICAID, SELFPAY ==
[2021-06-20 00:26] VITALS: BP 119/59; PULSE 87; RESP 20; TEMP 36.1
[2021-06-22 13:53] VITALS: BP 126/70; PULSE 78; RESP 18; TEMP 35.7
--- NOTE | 2021-06-22 16:33 | PCM.WC.PN ---
History of Present Illness Date of Service: 06/22/21 Chief Complaint: Nonhealing wound status post surgical excision of necrotizing fasciitis left groin History of Wound: 46-year-old white male who presents to the wound healing center today with complaint of left groin ulceration status post surgical excision of necrotizing fasciitis. He is a past medical history which is significant for that of type 2 diabetes mellitus, gout, diabetic neuropathy, schizophrenia, bilateral lymphedema, and schizophrenia. The patient states that what initially started as a pimple in his left groin progressed to necrotizing fasciitis and he had to have this surgically debrided in April 2017. He was admitted to [facility] for 2 weeks and then [facility] for 6 weeks afterwards. He states that the groin ulcer which extends to his left lower abdomen has been slowly improving and he has been doing daily Aquacel AG dressings with an ABD for the drainage. He does state that he has had 3 wound vacs in the past which were unable to be utilized due to the location of his wound. He denies any foul-smelling discharge or systemic signs of infection at this time. The patient otherwise denies any fever, chills, nausea, vomiting, shortness of breath, chest pain or pressure, palpitations, orthopnea, syncope or presyncopal episodes. Progress of Wound: Stable, the patient's TheraSkin application only stayed on for couple days, will delay debridement given the recent TheraSkin application and we will do daily to twice daily applications of Aquacel extra cover with gauze. Wound culture prior showed Corynebacterium stratum which is a likely skin contaminant no susceptibility performed. Objective Data Objective Data Vital Signs: Vital Signs Temp Pulse Resp BP 96.2 F L 78 18 126/70 H 06/22/21 13:53 06/22/21 13:53 06/22/21 13:53 06/22/21 13:53 Weight: 400 lb Charges/Coding Visit Charges Office Visits / Consults: 48066 OV L3 Est Physical Exam Const alert and oriented x3 General Appearance: cooperative HEENT normocephalic Head and Scalp: atraumatic Eyes PERRL Lymph Lymphatic: no lymphedema noted Resp normal respiratory effort Cardio regular rate GI non-tender GI Narrative: Large pannus with obese abdomen Palpation: soft Extremity normal capillary refill Skin Wound Narrative: Left medial groin ulcer is pink without any signs of infection at this time, small amount of slough Neuro CN's II-XII intact bilaterally Psych Thought Process: normal thought process Debridement Note Debridement Note Wound debrided: Left groin ulcer No debridement was completed: No debridement was completed today Post-Debridement Measurements and Additional Note: Post-Debridement Measurements/Treatment RAMÓN - Nurse 1 - General Ulcer Assessment Start: 06/22/21 13:53 Freq: Status: Active Protocol: FRANKY Activity Type Activity Date Activity User E-Sign Co-Sign Detail Recorded Client Recorded Date Recorded By Document 06/22/21 13:53 [id number] 06/22/21 13:59 06/22/21 13:53 - Today's Visit Information Type of service Follow-up Visit (Physician/STAND GRINDER ) Arrival Mode Ambulatory Patient Identification Verified (Name & Yes ) Patient Requires Transmission-Based No Precautions Vital Signs Temperature (97.8 F-99.1 F) 96.2 F L Temperature Source Temporal Pulse Rate (60-100) 78 Pulse Location Monitor Respiratory Rate (12-18) 18 Respiratory rate source Observation Blood Pressure (90/60-120/80) 126/70 H Blood Pressure Mean (mm Hg) 88 Source Monitor Position Semi-Fowlers Blood Pressure Location Right Arm History Since Last Visit- (Skip if this is Patient's initial visit) Have you changed medications since your No last visit? Any new allergies or adverse reactions No Had a fall/change in ADL's that may No increase risk of falls Signs or symptoms of abuse and/or No neglect since last visit Have you been in the hospital since your No last visit? Has dressing in place as prescribed Yes Has compression in place as prescribed N/A Has offloadiing in place as prescribed N/A Experienced any changes in pain level or No management Left Footwear Regular Shoe Right Footwear Regular Shoe Pain Scale: 0-10 Numeric Is Patient Pain Free? Yes RAMÓN - Nurse 1 - General Ulcer Measurement Start: 06/22/21 13:53 Freq: Status: Active Protocol: Activity Type Activity Date Activity User E-Sign Co-Sign Detail Recorded Client Recorded Date Recorded By Document 06/22/21 13:53 JF [id number] 06/22/21 13:59 CRESENCIO 06/22/21 13:53 Wound Center Nurse 1 #1- LEFT GROIN- POST OP -Combined with other wound No -Current Size (cm) - Length 0.8 -Current Size (cm) - Width 7.1 -Current Size (cm) - Depth 1.3 -Total Square Cm 5.68 -Photo Taken No -Epithelialization None Present -Tunneling No -Undermining/Tunneling No -Circular Undermining No -Exudate Amt Medium -Exudate Type Serosanguineous -Wound Margin Flat & Intact -Granulation Amt Large (67-100%) -Granulation Quality Red -Slough/Fibrin Yes -Necrosis Amt Small (1-33%) -Necrotic Tissue Type Adherent Slough -Structure Exposed N/A -Texture (Inessa-wound Skin Appearance) Assessed -Moisture (Inessa-wound Skin Appearance) Assessed,Dry/ Scaly -Color (Inessa-wound Skin Appearance) Assessed -Temperature (Inessa-wound Skin No Abnormality Appearance) (Pt Warm) -Tenderness on Palpation (Inessa-wound No Skin Appearance) -Ulcer Cleansing Wound Cleanser -Foul Odor after Cleansing No -Anesthetic Used 4% Lidocaine Solution Lower Limb Edema Present NA WC - Nurse 2 - General Ulcer CM Notes Start: 06/22/21 13:53 Freq: Status: Active Protocol: Activity Type Activity Date Activity User E-Sign Co-Sign Detail Recorded Client Recorded Date Recorded By Document 06/22/21 14:29 MW [id number] 06/22/21 14:30 MW 06/22/21 14:29 Wound Center Nurse 2 #1- LEFT GROIN- POST OP -Time 14:30 -Correct Patient Yes -Correct Side, Site, Position Yes -Correct Procedure Yes -Procedure Performed No -Post Debridement (cm) - Length 1.5 -Post Debridement (cm) - Width 7.1 -Post Debridement (cm) - Depth 0.1 -Total Square (Post) (cm) 10.65 -Tunneling No -Undermining/Tunneling No -Circular Undermining No -Wound/Ulcer Outcome Not Healed Pain Scale: 0-10 Numeric Is Patient Pain Free? Yes - Nurse 3 - General Ulcer D/C NN Start: 06/22/21 13:53 Freq: Status: Active Protocol: Activity Type Activity Date Activity User E-Sign Co-Sign Detail Recorded Client Recorded Date Recorded By Document 06/22/21 14:41 [id number] 06/22/21 14:42 06/22/21 14:41 Wound Care Nurse 3 #1- LEFT GROIN- POST OP -Ulcer Cleansing Rinsed/ Irrigated with Saline -Foul Odor after Cleansing No -Primary Dressing Applied Aquacel Extra, Mepilex Border -Aquacel Extra 1 -Mepilex Border 1 Pain Scale: 0-10 Numeric Is Patient Pain Free? Yes WC - Visit Discharge Discharge Condition Stable Ambulatory Status Ambulatory Transportation Private Auto Medication Reconcilliation completed & Yes provided to patient/care provider Clinical Summary of Care Provided Yes Assessment/Plan Assessment/Plan (1) Non-healing surgical wound of left groin: CODE(S): T81.89XA - Other complications of procedures, not elsewhere classified, initial encounter PLAN: Debridement held today. Daily the twice daily application of Aquacel lecture cover with gauze and ABD or SAP foam dressing. He would benefit from Intradry to place in his pannus folds to prevent the skin on skin friction. Optimal diabetes control again was discussed continue increase protein intake. His questions were answered and he was advised to call with any further questions or concerns. Follow-up in 1 weeks at the wound healing center or sooner if needed. Since he is still having delayed wound healing would like patient to have surgical consult again as his nonhealing wound has been present for since 2018. We will request surgical consult notes as patient states that he had this done last week. Given the continued delayed wound healing will apply for an advanced skin substitute. This note was generated with [employer] dictation software. It may contain incorrect words, spelling, and punctuation that were not noted in checking the note before signing. I have spent 25 minutes today reviewing labs, records, and history. Time includes coordinating care, interpretation of tests, and counseling the patient/family. This also includes time I spent with the patient for exam, treatment plan, and education as well as documenting clinical information in the electronic health record. (2) Abdominal panniculus: CODE(S): E65 - Localized adiposity (3) Type 2 diabetes mellitus: CODE(S): E11.9 - Type 2 diabetes mellitus without complications QUALIFIERS: Qualified Code(s): L98.499 - Non-pressure chronic ulcer of skin of other sites with unspecified severity (4) Morbid obesity: CODE(S): E66.01 - Morbid (severe) obesity due to excess calories
[2021-07-06 13:13] VITALS: BP 149/69; PULSE 88; TEMP 36.6
--- NOTE | 2021-07-06 19:41 | PN.PCM_ITS ---
History of Present Illness Date of Service: 07/06/21 Chief Complaint: Nonhealing wound status post surgical excision of necrotizing fasciitis left groin History of Wound: 46-year-old white male who presents to the wound healing center today with complaint of left groin ulceration status post surgical excision of necrotizing fasciitis. He is a past medical history which is significant for that of type 2 diabetes mellitus, gout, diabetic neuropathy, schizophrenia, bilateral lymphedema, and schizophrenia. The patient states that what initially started as a pimple in his left groin progressed to necrotizing fasciitis and he had to have this surgically debrided in April 2017. He was admitted to [facility] for 2 weeks and then [facility] for 6 weeks afterwards. He states that the groin ulcer which extends to his left lower abdomen has been slowly improving and he has been doing daily Aquacel AG dressings with an ABD for the drainage. He does state that he has had 3 wound vacs in the past which were unable to be utilized due to the location of his wound. He denies any foul-smelling discharge or systemic signs of infection at this time. The patient otherwise denies any fever, chills, nausea, vomiting, shortness of breath, chest pain or pressure, palpitations, orthopnea, syncope or presyncopal episodes. Progress of Wound: Stable, the patient's second application of Theraskin was applied today, if excess drainage may do daily applications of Aquacel extra cover with gauze. Wound culture prior showed Corynebacterium stratum which is a likely skin contaminant no susceptibility performed. Objective Data Objective Data Vital Signs: Vital Signs Temp Pulse Resp BP 97.9 F 88 18 149/69 H 07/06/21 13:13 07/06/21 13:13 06/22/21 13:53 07/06/21 13:13 Weight: 400 lb Charges/Coding Procedures Integumentary 150xxx-152xx: [id number] Skin sub graft trnk/arm/leg Physical Exam Const alert and oriented x3 General Appearance: cooperative HEENT normocephalic Head and Scalp: atraumatic Eyes PERRL Lymph Lymphatic: no lymphedema noted Resp normal respiratory effort Cardio regular rate GI non-tender GI Narrative: Large pannus with obese abdomen Palpation: soft Extremity normal capillary refill Skin Wound Narrative: Left medial groin ulcer is pink without any signs of infection at this time, small amount of slough Neuro CN's II-XII intact bilaterally Psych Thought Process: normal thought process Debridement Note Debridement Note Wound debrided: Left groin ulcer Laterality: Left Type of Debridement: Excisional debridement Anesthesia Used: 5% Lidocaine Gel Depth: Down to and including healthy tissue and in the subcutaneous layer Percentage of wound debrided: 100 Instrument Used: 5mm curette Tissue Removed: Slough and devitalized tissue Severity: Fat Layer Exposed Amount of bleeding with debridement: Mild Bleeding Controlled with: Pressure Patient tolerated procedure: Patient tolerated procedure well Post-Debridement Measurements and Additional Note: Post-Debridement Measurements/Treatment - Nurse 1 - General Ulcer Assessment Start: 06/22/21 13:53 Freq: Status: Active Protocol: RAMÓNThe Fan Machine Activity Type Activity Date Activity User E-Sign Co-Sign Detail Recorded Client Recorded Date Recorded By Document 06/22/21 13:53 [id number] 06/22/21 13:59 Document 07/06/21 13:13 FOREIGN [id number] 07/06/21 13:14 WA 06/22/21 07/06/21 13:53 13:13 - Today's Visit Information Type of service Follow-up Visit Follow-up Visit (Physician/TAPING MACHINE OPERATOR (Physician/TAPING MACHINE OPERATOR ) ) Arrival Mode Ambulatory Ambulatory Patient Identification Verified (Name & Yes Yes ) Patient Requires Transmission-Based No No Precautions Safety Precautions NA Vital Signs Temperature (97.8 F-99.1 F) 96.2 F L 97.9 F Temperature Source Temporal Temporal Pulse Rate (60-100) 78 88 Pulse Location Monitor Monitor Respiratory Rate (12-18) 18 Respiratory rate source Observation Blood Pressure (90/60-120/80) 126/70 H 149/69 H Blood Pressure Mean (mm Hg) 88 95 Source Monitor Monitor Position Semi-Fowlers Blood Pressure Location Right Arm History Since Last Visit- (Skip if this is Patient's initial visit) Have you changed medications since your No No last visit? Any new allergies or adverse reactions No No Had a fall/change in ADL's that may No No increase risk of falls Signs or symptoms of abuse and/or No No neglect since last visit Have you been in the hospital since your No No last visit? Has dressing in place as prescribed Yes Yes Has compression in place as prescribed N/A N/A Has offloadiing in place as prescribed N/A N/A Experienced any changes in pain level or No No management Left Footwear Regular Shoe Regular Shoe Right Footwear Regular Shoe Regular Shoe Pain Scale: 0-10 Numeric Is Patient Pain Free? Yes Yes RAMÓN - Nurse 1 - General Ulcer Measurement Start: 06/22/21 13:53 Freq: Status: Active Protocol: Activity Type Activity Date Activity User E-Sign Co-Sign Detail Recorded Client Recorded Date Recorded By Document 06/22/21 13:53 [id number] 06/22/21 13:59 Document 07/06/21 13:13 AK [id number] 07/06/21 13:14 AK 06/22/21 07/06/21 13:53 13:13 Wound Center Nurse 1 #1- LEFT GROIN- POST OP -Combined with other wound No No -Current Size (cm) - Length 0.8 1 -Current Size (cm) - Width 7.1 7 -Current Size (cm) - Depth 1.3 0.2 -Total Square Cm 5.68 7 -Photo Taken No No -Epithelialization None Present -Tunneling No No -Undermining/Tunneling No No -Circular Undermining No No -Exudate Amt Medium Small -Exudate Type Serosanguineous Serosanguineous -Wound Margin Flat & Intact Distinct, Outline Attached -Granulation Amt Large (67-100%) Small (1-33%) -Granulation Quality Red Pale,[place] -Slough/Fibrin Yes -Necrosis Amt Small (1-33%) Small (1-33%) -Necrotic Tissue Type Adherent Slough Adherent Slough -Structure Exposed N/A N/A -Texture (Inessa-wound Skin Appearance) Assessed No Abnormality, Assessed -Moisture (Inessa-wound Skin Appearance) Assessed,Dry/ Assessed, Scaly Maceration -Color (Inessa-wound Skin Appearance) Assessed No Abnormality, Assessed -Temperature (Inessa-wound Skin No Abnormality No Abnormality Appearance) (Pt Warm) (Pt Warm) -Tenderness on Palpation (Inessa-wound No No Skin Appearance) -Ulcer Cleansing Wound Cleanser Rinsed/ Irrigated with Saline -Foul Odor after Cleansing No No -Anesthetic Used 4% Lidocaine 4% Lidocaine Solution Solution Lower Limb Edema Present NA RAMÓN - Nurse 2 - General Ulcer CM Notes Start: 06/22/21 13:53 Freq: Status: Active Protocol: Activity Type Activity Date Activity User E-Sign Co-Sign Detail Recorded Client Recorded Date Recorded By Document 06/22/21 14:29 MW [id number] 06/22/21 14:30 MW Document 07/06/21 13:28 MW [id number] 07/06/21 13:41 MW 06/22/21 07/06/21 14:29 13:28 Wound Center Nurse 2 #1- LEFT GROIN- POST OP -Time 14:30 13:29 -Correct Patient Yes Yes -Correct Side, Site, Position Yes Yes -Correct Procedure Yes Yes -Procedure Performed No Yes -Type of Procedure Debridement -Clinical Debridement Subcutaneous -Tissue Removed Subcutaneous -Post Debridement (cm) - Length 1.5 1.0 -Post Debridement (cm) - Width 7.1 7.0 -Post Debridement (cm) - Depth 0.1 0.1 -Total Square (Post) (cm) 10.65 7.00 -Area of Debridement (cm) - Length 1.0 -Area of Debridement (cm) - Width 7.0 -Total Square (Area) (cm) 7.00 -Tunneling No No -Undermining/Tunneling No No -Circular Undermining No No -Wound/Ulcer Outcome Not Healed Not Healed -Ulcer Cleansing Rinsed/ Irrigated with Saline -Foul Odor after Cleansing No -Bioengineered Tissue Yes -Type of Bioengineered Tissue Theraskin -Expiration Date 05/07/24 -Product Lot Number [id number] -Percent Used 100 -Lot number of Saline Used [id number] -Bleeding Controlled with Pressure -Treatment Response Procedure Tolerated Well -Offloading No -Debridement - Subq, 1st 20sq cm No -Apply Skin Sub - 1st 25 sq cm - Legs 1 -Theraskin (per sq cm) 13 Pain Scale: 0-10 Numeric Is Patient Pain Free? Yes Yes - Nurse 3 - General Ulcer D/C NN Start: 06/22/21 13:53 Freq: Status: Active Protocol: Activity Type Activity Date Activity User E-Sign Co-Sign Detail Recorded Client Recorded Date Recorded By Document 06/22/21 14:41 [id number] 06/22/21 14:42 JF Document 07/06/21 13:41 MW [id number] 07/06/21 13:42 MW 06/22/21 07/06/21 14:41 13:41 Wound Care Nurse 3 #1- LEFT GROIN- POST OP -Ulcer Cleansing Rinsed/ Not Cleansed Irrigated with Saline -Foul Odor after Cleansing No No -Negative Pressure Wound Therapy N/A -Primary Dressing Applied Aquacel Extra, Mepilex Border Mepilex Border -Primary Dressing Covered/Secured with Dry Gauze -Aquacel Extra 1 -Mepilex Border 1 1 Treatment Response Procedure Tolerated Well Pain Scale: 0-10 Numeric Is Patient Pain Free? Yes Yes Teaching: Wound Center Dressing Your Wound -Person Taught Patient -Teaching Method Discussion, Demonstration -Response to teaching Verbalize understanding WC - Visit Discharge Discharge Condition Stable Stable Ambulatory Status Ambulatory Ambulatory Transportation Private Auto Private Auto Accompanied by brother Medication Reconcilliation completed & Yes No provided to patient/care provider Clinical Summary of Care Provided Yes Yes Assessment/Plan Assessment/Plan (1) Non-healing surgical wound of left groin: CODE(S): T81.89XA - Other complications of procedures, not elsewhere classified, initial encounter PLAN: Debridement performed today, patient tolerated well. Second application of TheraSkin 13 cm? and 100% was used, product was secured with Dermabond and covered with wound veil and Steri-Strips and secured again with a foam dressing for excess drainage. He would benefit from Intradry to place in his pannus folds to prevent the skin on skin friction. Optimal diabetes control again was discussed continue increase protein intake. His questions were answered and he was advised to call with any further questions or concerns. Follow-up in 1 weeks at the wound healing center or sooner if needed. Since he is still having delayed wound healing would like patient to have surgical consult again as his nonhealing wound has been present for since 2018. We will request surgical consult notes as patient states that he had this done prior. Given the continued delayed wound healing will apply for an advanced skin substitute. This note was generated with [employer] dictation software. It may contain incorrect words, spelling, and punctuation that were not noted in checking the note before signing. I have spent 25 minutes today reviewing labs, records, and history. Time includes coordinating care, interpretation of tests, and counseling the patient/family. This also includes time I spent with the patient for exam, treatment plan, and education as well as documenting clinical information in the electronic health record. (2) Abdominal panniculus: CODE(S): E65 - Localized adiposity (3) Type 2 diabetes mellitus: CODE(S): E11.9 - Type 2 diabetes mellitus without complications QUALIFIERS: Qualified Code(s): L98.499 - Non-pressure chronic ulcer of skin of other sites with unspecified severity (4) Morbid obesity: CODE(S): E66.01 - Morbid (severe) obesity due to excess calories
[2021-07-13 13:19] VITALS: BP 136/76; PULSE 79; RESP 16; TEMP 36.3
--- NOTE | 2021-07-13 16:52 | PCM.WC.PN ---
History of Present Illness Date of Service: 07/13/21 Chief Complaint: Nonhealing wound status post surgical excision of necrotizing fasciitis left groin History of Wound: 46-year-old white male who presents to the wound healing center today with complaint of left groin ulceration status post surgical excision of necrotizing fasciitis. He is a past medical history which is significant for that of type 2 diabetes mellitus, gout, diabetic neuropathy, schizophrenia, bilateral lymphedema, and schizophrenia. The patient states that what initially started as a pimple in his left groin progressed to necrotizing fasciitis and he had to have this surgically debrided in April 2017. He was admitted to [facility] for 2 weeks and then [facility] for 6 weeks afterwards. He states that the groin ulcer which extends to his left lower abdomen has been slowly improving and he has been doing daily Aquacel AG dressings with an ABD for the drainage. He does state that he has had 3 wound vacs in the past which were unable to be utilized due to the location of his wound. He denies any foul-smelling discharge or systemic signs of infection at this time. The patient otherwise denies any fever, chills, nausea, vomiting, shortness of breath, chest pain or pressure, palpitations, orthopnea, syncope or presyncopal episodes. Progress of Wound: Stable, the patient's second application of Theraskin stayed on until last night, will delay debridement today and patient to do daily applications of Aquacel extra cover with gauze. Wound culture prior showed Corynebacterium stratum which is a likely skin contaminant no susceptibility performed. Objective Data Objective Data Vital Signs: Vital Signs Temp Pulse Resp BP 97.3 F L 79 16 136/76 H 07/13/21 13:19 07/13/21 13:19 07/13/21 13:19 07/13/21 13:19 Weight: 400 lb Charges/Coding Visit Charges Office Visits / Consults: 28421 OV L3 Est Physical Exam Const alert and oriented x3 General Appearance: cooperative HEENT normocephalic Head and Scalp: atraumatic Eyes PERRL Lymph Lymphatic: no lymphedema noted Resp normal respiratory effort Cardio regular rate GI non-tender GI Narrative: Large pannus with obese abdomen Palpation: soft Extremity normal capillary refill Skin Wound Narrative: Left medial groin ulcer is pink without any signs of infection at this time, small amount of slough Neuro CN's II-XII intact bilaterally Psych Thought Process: normal thought process Debridement Note Debridement Note Wound debrided: Left medial groin ulcer Laterality: Left No debridement was completed: No debridement was completed today Post-Debridement Measurements and Additional Note: Post-Debridement Measurements/Treatment WC - Nurse 1 - General Ulcer Assessment Start: 06/22/21 13:53 Freq: Status: Active Protocol: FRANKY Activity Type Activity Date Activity User E-Sign Co-Sign Detail Recorded Client Recorded Date Recorded By Document 06/22/21 13:53 JF [id number] 06/22/21 13:59 JF Document 07/06/21 13:13 AK [id number] 07/06/21 13:14 AK Document 07/13/21 13:19 ML [id number] 07/13/21 13:21 ML 06/22/21 07/06/21 07/13/21 13:53 13:13 13:19 WC - Today's Visit Information Type of service Follow-up Visit Follow-up Visit Follow-up Visit (Physician/SIGNAL MAINTAINER HELPER (Physician/SIGNAL MAINTAINER HELPER (Physician/SIGNAL MAINTAINER HELPER ) ) ) Arrival Mode Ambulatory Ambulatory Ambulatory Transfer Assistance None Patient Identification Verified (Name & Yes Yes Yes ) Patient Requires Transmission-Based No No No Precautions Safety Precautions NA NA Vital Signs Temperature (97.8 F-99.1 F) 96.2 F L 97.9 F 97.3 F L Temperature Source Temporal Temporal Temporal Pulse Rate (60-100) 78 88 79 Pulse Location Monitor Monitor Monitor Respiratory Rate (12-18) 18 16 Respiratory rate source Observation Observation Blood Pressure (90/60-120/80) 126/70 H 149/69 H 136/76 H Blood Pressure Mean (mm Hg) 88 95 96 Source Monitor Monitor Monitor Position Semi-Fowlers Sitting Blood Pressure Location Right Arm Left Arm History Since Last Visit- (Skip if this is Patient's initial visit) Have you changed medications since your No No No last visit? Any new allergies or adverse reactions No No No Had a fall/change in ADL's that may No No No increase risk of falls Signs or symptoms of abuse and/or No No No neglect since last visit Have you been in the hospital since your No No No last visit? Has dressing in place as prescribed Yes Yes No Has compression in place as prescribed N/A N/A No Has offloadiing in place as prescribed N/A N/A No Experienced any changes in pain level or No No No management Left Footwear Regular Shoe Regular Shoe Regular Shoe Right Footwear Regular Shoe Regular Shoe Regular Shoe Pain Scale: 0-10 Numeric Is Patient Pain Free? Yes Yes Yes WC - Nurse 1 - General Ulcer Measurement Start: 06/22/21 13:53 Freq: Status: Active Protocol: Activity Type Activity Date Activity User E-Sign Co-Sign Detail Recorded Client Recorded Date Recorded By Document 06/22/21 13:53 [id number] 06/22/21 13:59 JF Document 07/06/21 13:13 AK [id number] 07/06/21 13:14 AK Document 07/13/21 13:19 ML [id number] 07/13/21 13:21 ML 06/22/21 07/06/21 07/13/21 13:53 13:13 13:19 Wound Center Nurse 1 #1- LEFT GROIN- POST OP -Combined with other wound No No -Current Size (cm) - Length 0.8 1 0.1 -Current Size (cm) - Width 7.1 7 8 -Current Size (cm) - Depth 1.3 0.2 0.1 -Total Square Cm 5.68 7 0.8 -Photo Taken No No -Epithelialization None Present -Tunneling No No -Undermining/Tunneling No No -Circular Undermining No No -Exudate Amt Medium Small Medium -Exudate Type Serosanguineous Serosanguineous Serosanguineous -Wound Margin Flat & Intact Distinct, Distinct, Outline Outline Attached Attached -Granulation Amt Large (67-100%) Small (1-33%) Medium (34-66%) -Granulation Quality Red Pale,[place] -Slough/Fibrin Yes Yes -Necrosis Amt Small (1-33%) Small (1-33%) Medium (34-66%) -Necrotic Tissue Type Adherent Slough Adherent Slough Adherent Slough -Structure Exposed N/A N/A -Texture (Inessa-wound Skin Appearance) Assessed No Abnormality, Assessed Assessed -Moisture (Inessa-wound Skin Appearance) Assessed,Dry/ Assessed, Maceration Scaly Maceration -Color (Inessa-wound Skin Appearance) Assessed No Abnormality, Assessed Assessed -Temperature (Inessa-wound Skin No Abnormality No Abnormality No Abnormality Appearance) (Pt Warm) (Pt Warm) (Pt Warm) -Tenderness on Palpation (Inessa-wound No No No Skin Appearance) -Ulcer Cleansing Wound Cleanser Rinsed/ Rinsed/ Irrigated with Irrigated with Saline Saline -Foul Odor after Cleansing No No No -Anesthetic Used 4% Lidocaine 4% Lidocaine 4% Lidocaine Solution Solution Solution Lower Limb Edema Present NA WC - Nurse 2 - General Ulcer CM Notes Start: 06/22/21 13:53 Freq: Status: Active Protocol: Activity Type Activity Date Activity User E-Sign Co-Sign Detail Recorded Client Recorded Date Recorded By Document 06/22/21 14:29 MW [id number] 06/22/21 14:30 MW Document 07/06/21 13:28 MW [id number] 07/06/21 13:41 MW Document 07/13/21 13:33 MW [id number] 07/13/21 13:35 MW 06/22/21 07/06/21 07/13/21 14:29 13:28 13:33 Wound Center Nurse 2 #1- LEFT GROIN- POST OP -Time 14:30 13:29 13:34 -Correct Patient Yes Yes Yes -Correct Side, Site, Position Yes Yes Yes -Correct Procedure Yes Yes Yes -Procedure Performed No Yes No -Type of Procedure Debridement -Clinical Debridement Subcutaneous -Tissue Removed Subcutaneous -Post Debridement (cm) - Length 1.5 1.0 1.0 -Post Debridement (cm) - Width 7.1 7.0 8.0 -Post Debridement (cm) - Depth 0.1 0.1 0.1 -Total Square (Post) (cm) 10.65 7.00 8.00 -Area of Debridement (cm) - Length 1.0 -Area of Debridement (cm) - Width 7.0 -Total Square (Area) (cm) 7.00 -Tunneling No No No -Undermining/Tunneling No No No -Circular Undermining No No No -Wound/Ulcer Outcome Not Healed Not Healed Not Healed -Ulcer Cleansing Rinsed/ Irrigated with Saline -Foul Odor after Cleansing No -Bioengineered Tissue Yes -Type of Bioengineered Tissue Theraskin -Expiration Date 05/07/24 -Product Lot Number [id number] -Percent Used 100 -Lot number of Saline Used [id number] -Bleeding Controlled with Pressure -Treatment Response Procedure Tolerated Well -Offloading No -Debridement - Subq, 1st 20sq cm No -Apply Skin Sub - 1st 25 sq cm - Legs 1 -Theraskin (per sq cm) 13 Pain Scale: 0-10 Numeric Is Patient Pain Free? Yes Yes Yes - Nurse 3 - General Ulcer D/C NN Start: 06/22/21 13:53 Freq: Status: Active Protocol: Activity Type Activity Date Activity User E-Sign Co-Sign Detail Recorded Client Recorded Date Recorded By Document 06/22/21 14:41 JF [id number] 06/22/21 14:42 JF Document 07/06/21 13:41 MW [id number] 07/06/21 13:42 MW Document 07/13/21 13:40 AK [id number] 07/13/21 13:41 AK 06/22/21 07/06/21 07/13/21 14:41 13:41 13:40 Wound Care Nurse 3 #1- LEFT GROIN- POST OP -Ulcer Cleansing Rinsed/ Not Cleansed Rinsed/ Irrigated with Irrigated with Saline Saline -Foul Odor after Cleansing No No No -Negative Pressure Wound Therapy N/A N/A -Primary Dressing Applied Aquacel Extra, Mepilex Border Aquacel Extra, Mepilex Border Mepilex Border -Primary Dressing Covered/Secured with Dry Gauze -Aquacel Extra 1 1 -Mepilex Border 1 1 1 Treatment Response Procedure Tolerated Well Pain Scale: 0-10 Numeric Is Patient Pain Free? Yes Yes Yes Teaching: Wound Center Dressing Your Wound -Person Taught Patient -Teaching Method Discussion, Demonstration -Response to teaching Verbalize understanding WC - Visit Discharge Discharge Condition Stable Stable Stable Ambulatory Status Ambulatory Ambulatory Ambulatory Transportation Private Auto Private Auto Private Auto Accompanied by brother Medication Reconcilliation completed & Yes No Yes provided to patient/care provider Clinical Summary of Care Provided Yes Yes Yes Assessment/Plan Assessment/Plan (1) Non-healing surgical wound of left groin: CODE(S): T81.89XA - Other complications of procedures, not elsewhere classified, initial encounter PLAN: No debridement done today given the fact that patient recently had TheraSkin and the product application came off yesterday. Patient to do Aquacel extra change 1-2 times a day as needed and cover with gauze. He would benefit from Intradry to place in his pannus folds to prevent the skin on skin friction. Optimal diabetes control again was discussed continue increase protein intake. Patient reports that his most recent A1c was 5.5. His questions were answered and he was advised to call with any further questions or concerns. Follow-up in 1 weeks at the wound healing center or sooner if needed. Since he is still having delayed wound healing would like patient to have surgical consult again as his nonhealing wound has been present for since 2018. We will request surgical consult notes as patient states that he had this done prior. Given the continued delayed wound healing will apply for an advanced skin substitute. This note was generated with [employer] dictation software. It may contain incorrect words, spelling, and punctuation that were not noted in checking the note before signing. I have spent 25 minutes today reviewing labs, records, and history. Time includes coordinating care, interpretation of tests, and counseling the patient/family. This also includes time I spent with the patient for exam, treatment plan, and education as well as documenting clinical information in the electronic health record. (2) Abdominal panniculus: CODE(S): E65 - Localized adiposity (3) Type 2 diabetes mellitus: CODE(S): E11.9 - Type 2 diabetes mellitus without complications QUALIFIERS: Qualified Code(s): L98.499 - Non-pressure chronic ulcer of skin of other sites with unspecified severity (4) Morbid obesity: CODE(S): E66.01 - Morbid (severe) obesity due to excess calories
[2021-07-20 13:17] VITALS: BP 105/63; PULSE 75; RESP 18; TEMP 35.8
--- NOTE | 2021-07-20 17:00 | PN.PCM_ITS ---
History of Present Illness Date of Service: 07/20/21 Chief Complaint: Nonhealing wound status post surgical excision of necrotizing fasciitis left groin History of Wound: 46-year-old white male who presents to the wound healing center today with complaint of left groin ulceration status post surgical excision of necrotizing fasciitis. He is a past medical history which is significant for that of type 2 diabetes mellitus, gout, diabetic neuropathy, schizophrenia, bilateral lymphedema, and schizophrenia. The patient states that what initially started as a pimple in his left groin progressed to necrotizing fasciitis and he had to have this surgically debrided in April 2017. He was admitted to [facility] for 2 weeks and then [facility] for 6 weeks afterwards. He states that the groin ulcer which extends to his left lower abdomen has been slowly improving and he has been doing daily Aquacel AG dressings with an ABD for the drainage. He does state that he has had 3 wound vacs in the past which were unable to be utilized due to the location of his wound. He denies any foul-smelling discharge or systemic signs of infection at this time. The patient otherwise denies any fever, chills, nausea, vomiting, shortness of breath, chest pain or pressure, palpitations, orthopnea, syncope or presyncopal episodes. Progress of Wound: Stable,no new concerns. Wound culture prior showed Corynebacterium stratum which is a likely skin contaminant no susceptibility performed. Objective Data Objective Data Vital Signs: Vital Signs Temp Pulse Resp BP 96.5 F L 75 18 105/63 07/20/21 13:17 07/20/21 13:17 07/20/21 13:17 07/20/21 13:17 Weight: 400 lb Charges/Coding Procedures Integumentary 111xxx-113xx: [id number] Jessica subq tissue 20 sq cm/< Physical Exam Const alert and oriented x3 General Appearance: cooperative HEENT normocephalic Head and Scalp: atraumatic Eyes PERRL Lymph Lymphatic: no lymphedema noted Resp normal respiratory effort Cardio regular rate GI non-tender GI Narrative: Large pannus with obese abdomen Palpation: soft Extremity normal capillary refill Skin Wound Narrative: Left medial groin ulcer is pink without any signs of infection at this time, small amount of slough Neuro CN's II-XII intact bilaterally Psych Thought Process: normal thought process Debridement Note Debridement Note Wound debrided: left groin ulcer Laterality: Left Type of Debridement: Excisional debridement Anesthesia Used: 5% Lidocaine Gel Depth: Down to and including healthy tissue and in the subcutaneous layer Percentage of wound debrided: 100 Instrument Used: 5mm curette Tissue Removed: slough and devitalized tissue Severity: Fat Layer Exposed Amount of bleeding with debridement: Mild Bleeding Controlled with: Pressure Patient tolerated procedure: Patient tolerated procedure well Post-Debridement Measurements and Additional Note: Post-Debridement Measurements/Treatment - Nurse 1 - General Ulcer Assessment Start: 06/22/21 13:53 Freq: Status: Active Protocol: SynapseFINN Activity Type Activity Date Activity User E-Sign Co-Sign Detail Recorded Client Recorded Date Recorded By Document 06/22/21 13:53 [id number] 06/22/21 13:59 JF Document 07/06/21 13:13 AK [id number] 07/06/21 13:14 AK Document 07/13/21 13:19 ML [id number] 07/13/21 13:21 ML Document 07/20/21 13:17 ML [id number] 07/20/21 13:21 ML 06/22/21 07/06/21 07/13/21 13:53 13:13 13:19 - Today's Visit Information Type of service Follow-up Visit Follow-up Visit Follow-up Visit (Physician/SIGN LANGUAGE INSTRUCTOR (Physician/SIGN LANGUAGE INSTRUCTOR (Physician/SIGN LANGUAGE INSTRUCTOR ) ) ) Arrival Mode Ambulatory Ambulatory Ambulatory Transfer Assistance None Patient Identification Verified (Name & Yes Yes Yes ) Patient Requires Transmission-Based No No No Precautions Safety Precautions NA NA Finger Stick Blood Sugar(mg/dl) (if indicated): Blood Sugar Vital Signs Temperature (97.8 F-99.1 F) 96.2 F L 97.9 F 97.3 F L Temperature Source Temporal Temporal Temporal Pulse Rate (60-100) 78 88 79 Pulse Location Monitor Monitor Monitor Respiratory Rate (12-18) 18 16 Respiratory rate source Observation Observation Blood Pressure (90/60-120/80) 126/70 H 149/69 H 136/76 H Blood Pressure Mean (mm Hg) 88 95 96 Source Monitor Monitor Monitor Position Semi-Fowlers Sitting Blood Pressure Location Right Arm Left Arm History Since Last Visit- (Skip if this is Patient's initial visit) Have you changed medications since your No No No last visit? Any new allergies or adverse reactions No No No Had a fall/change in ADL's that may No No No increase risk of falls Signs or symptoms of abuse and/or No No No neglect since last visit Have you been in the hospital since your No No No last visit? Has dressing in place as prescribed Yes Yes No Has compression in place as prescribed N/A N/A No Has offloadiing in place as prescribed N/A N/A No Experienced any changes in pain level or No No No management Left Footwear Regular Shoe Regular Shoe Regular Shoe Right Footwear Regular Shoe Regular Shoe Regular Shoe Pain Scale: 0-10 Numeric Is Patient Pain Free? Yes Yes Yes 07/20/21 13:17 WC - Today's Visit Information Type of service Follow-up Visit (Physician/SIGN LANGUAGE INSTRUCTOR ) Arrival Mode Ambulatory Transfer Assistance None Patient Identification Verified (Name & Yes ) Patient Requires Transmission-Based No Precautions Safety Precautions NA Finger Stick Blood Sugar(mg/dl) (if 96 indicated): Blood Sugar Stated by Patient Vital Signs Temperature (97.8 F-99.1 F) 96.5 F L Temperature Source Temporal Pulse Rate (60-100) 75 Pulse Location Monitor Respiratory Rate (12-18) 18 Respiratory rate source Observation Blood Pressure (90/60-120/80) 105/63 Blood Pressure Mean (mm Hg) 77 Source Monitor Position Sitting Blood Pressure Location Left Arm History Since Last Visit- (Skip if this is Patient's initial visit) Have you changed medications since your No last visit? Any new allergies or adverse reactions No Had a fall/change in ADL's that may No increase risk of falls Signs or symptoms of abuse and/or No neglect since last visit Have you been in the hospital since your No last visit? Has dressing in place as prescribed Yes Has compression in place as prescribed N/A Has offloadiing in place as prescribed N/A Experienced any changes in pain level or No management Left Footwear Regular Shoe Right Footwear Regular Shoe Pain Scale: 0-10 Numeric Is Patient Pain Free? Yes - Nurse 1 - General Ulcer Measurement Start: 06/22/21 13:53 Freq: Status: Active Protocol: Activity Type Activity Date Activity User E-Sign Co-Sign Detail Recorded Client Recorded Date Recorded By Document 06/22/21 13:53 CRESENCIO [id number] 06/22/21 13:59 JF Document 07/06/21 13:13 AK [id number] 07/06/21 13:14 AK Document 07/13/21 13:19 ML [id number] 07/13/21 13:21 ML Document 07/20/21 13:17 ML [id number] 07/20/21 13:21 ML 06/22/21 07/06/21 07/13/21 13:53 13:13 13:19 Wound Center Nurse 1 #1- LEFT GROIN- POST OP -Combined with other wound No No -Combined with (Name of Wound-Exactly as it is documented) -Current Size (cm) - Length 0.8 1 0.1 -Current Size (cm) - Width 7.1 7 8 -Current Size (cm) - Depth 1.3 0.2 0.1 -Total Square Cm 5.68 7 0.8 -Photo Taken No No -Epithelialization None Present -Tunneling No No -Undermining/Tunneling No No -Circular Undermining No No -Exudate Amt Medium Small Medium -Exudate Type Serosanguineous Serosanguineous Serosanguineous -Wound Margin Flat & Intact Distinct, Distinct, Outline Outline Attached Attached -Granulation Amt Large (67-100%) Small (1-33%) Medium (34-66%) -Granulation Quality Red Pale,[place] -Slough/Fibrin Yes Yes -Necrosis Amt Small (1-33%) Small (1-33%) Medium (34-66%) -Necrotic Tissue Type Adherent Slough Adherent Slough Adherent Slough -Structure Exposed N/A N/A -Texture (Inessa-wound Skin Appearance) Assessed No Abnormality, Assessed Assessed -Moisture (Inessa-wound Skin Appearance) Assessed,Dry/ Assessed, Maceration Scaly Maceration -Color (Inessa-wound Skin Appearance) Assessed No Abnormality, Assessed Assessed -Temperature (Inessa-wound Skin No Abnormality No Abnormality No Abnormality Appearance) (Pt Warm) (Pt Warm) (Pt Warm) -Tenderness on Palpation (Inessa-wound No No No Skin Appearance) -Ulcer Cleansing Wound Cleanser Rinsed/ Rinsed/ Irrigated with Irrigated with Saline Saline -Foul Odor after Cleansing No No No -Anesthetic Used 4% Lidocaine 4% Lidocaine 4% Lidocaine Solution Solution Solution Lower Limb Edema Present NA 07/20/21 13:17 Wound Center Nurse 1 #1- LEFT GROIN- POST OP -Combined with other wound -Combined with (Name of Wound-Exactly 1.0 as it is documented) -Current Size (cm) - Length 6.0 -Current Size (cm) - Width 0.1 -Current Size (cm) - Depth -Total Square Cm 0.60 -Photo Taken -Epithelialization -Tunneling -Undermining/Tunneling -Circular Undermining -Exudate Amt Medium -Exudate Type Serosanguineous -Wound Margin Distinct, Outline Attached -Granulation Amt Medium (34-66%) -Granulation Quality [place] -Slough/Fibrin Yes -Necrosis Amt Medium (34-66%) -Necrotic Tissue Type Adherent Slough -Structure Exposed -Texture (Inessa-wound Skin Appearance) Assessed -Moisture (Inessa-wound Skin Appearance) Maceration -Color (Inessa-wound Skin Appearance) Assessed -Temperature (Inessa-wound Skin No Abnormality Appearance) (Pt Warm) -Tenderness on Palpation (Inessa-wound Skin Appearance) -Ulcer Cleansing Rinsed/ Irrigated with Saline -Foul Odor after Cleansing No -Anesthetic Used 5% Lidocaine Gel Lower Limb Edema Present WC - Nurse 2 - General Ulcer CM Notes Start: 06/22/21 13:53 Freq: Status: Active Protocol: Activity Type Activity Date Activity User E-Sign Co-Sign Detail Recorded Client Recorded Date Recorded By Document 06/22/21 14:29 MW [id number] 06/22/21 14:30 MW Document 07/06/21 13:28 MW [id number] 07/06/21 13:41 MW Document 07/13/21 13:33 MW [id number] 07/13/21 13:35 MW Document 07/20/21 13:47 MW [id number] 07/20/21 13:55 MW 06/22/21 07/06/21 07/13/21 14:29 13:28 13:33 Wound Center Nurse 2 #1- LEFT GROIN- POST OP -Time 14:30 13:29 13:34 -Correct Patient Yes Yes Yes -Correct Side, Site, Position Yes Yes Yes -Correct Procedure Yes Yes Yes -Procedure Performed No Yes No -Type of Procedure Debridement -Clinical Debridement Subcutaneous -Tissue Removed Subcutaneous -Post Debridement (cm) - Length 1.5 1.0 1.0 -Post Debridement (cm) - Width 7.1 7.0 8.0 -Post Debridement (cm) - Depth 0.1 0.1 0.1 -Total Square (Post) (cm) 10.65 7.00 8.00 -Area of Debridement (cm) - Length 1.0 -Area of Debridement (cm) - Width 7.0 -Total Square (Area) (cm) 7.00 -Tunneling No No No -Undermining/Tunneling No No No -Circular Undermining No No No -Wound/Ulcer Outcome Not Healed Not Healed Not Healed -Ulcer Cleansing Rinsed/ Irrigated with Saline -Foul Odor after Cleansing No -Bioengineered Tissue Yes -Type of Bioengineered Tissue Theraskin -Expiration Date 05/07/24 -Product Lot Number [id number] -Percent Used 100 -Lot number of Saline Used [id number] -Bleeding Controlled with Pressure -Treatment Response Procedure Tolerated Well -Offloading No -Debridement - Subq, 1st 20sq cm No -Apply Skin Sub - 1st 25 sq cm - Legs 1 -Theraskin (per sq cm) 13 Pain Scale: 0-10 Numeric Is Patient Pain Free? Yes Yes Yes 07/20/21 13:47 Wound Center Nurse 2 #1- LEFT GROIN- POST OP -Time 13:50 -Correct Patient Yes -Correct Side, Site, Position Yes -Correct Procedure Yes -Procedure Performed Yes -Type of Procedure Debridement -Clinical Debridement Subcutaneous -Tissue Removed Subcutaneous -Post Debridement (cm) - Length 1.3 -Post Debridement (cm) - Width 6.2 -Post Debridement (cm) - Depth 0.1 -Total Square (Post) (cm) 8.06 -Area of Debridement (cm) - Length 1.3 -Area of Debridement (cm) - Width 6.2 -Total Square (Area) (cm) 8.06 -Tunneling No -Undermining/Tunneling No -Circular Undermining No -Wound/Ulcer Outcome Not Healed -Ulcer Cleansing Rinsed/ Irrigated with Saline -Foul Odor after Cleansing No -Bioengineered Tissue No -Type of Bioengineered Tissue -Expiration Date -Product Lot Number -Percent Used -Lot number of Saline Used -Bleeding Controlled with Pressure -Treatment Response Procedure Tolerated Well -Offloading No -Debridement - Subq, 1st 20sq cm Yes -Apply Skin Sub - 1st 25 sq cm - Legs -Theraskin (per sq cm) Pain Scale: 0-10 Numeric Is Patient Pain Free? Yes - Nurse 3 - General Ulcer D/C NN Start: 06/22/21 13:53 Freq: Status: Active Protocol: Activity Type Activity Date Activity User E-Sign Co-Sign Detail Recorded Client Recorded Date Recorded By Document 06/22/21 14:41 JF [id number] 06/22/21 14:42 JF Document 07/06/21 13:41 MW [id number] 07/06/21 13:42 MW Document 07/13/21 13:40 AK [id number] 07/13/21 13:41 AK Document 07/20/21 14:07 DL [id number] 07/20/21 14:08 DL 06/22/21 07/06/21 07/13/21 14:41 13:41 13:40 Wound Care Nurse 3 #1- LEFT GROIN- POST OP -Ulcer Cleansing Rinsed/ Not Cleansed Rinsed/ Irrigated with Irrigated with Saline Saline -Foul Odor after Cleansing No No No -Negative Pressure Wound Therapy N/A N/A -Primary Dressing Applied Aquacel Extra, Mepilex Border Aquacel Extra, Mepilex Border Mepilex Border -Primary Dressing Covered/Secured with Dry Gauze -Aquacel Extra 1 1 -Aquacel AG 4x4 -Mepilex Border 1 1 1 Treatment Response Procedure Tolerated Well Pain Scale: 0-10 Numeric Is Patient Pain Free? Yes Yes Yes Teaching: Wound Center Dressing Your Wound -Person Taught Patient -Teaching Method Discussion, Demonstration -Response to teaching Verbalize understanding WC - Visit Discharge Discharge Condition Stable Stable Stable Ambulatory Status Ambulatory Ambulatory Ambulatory Transportation Private Auto Private Auto Private Auto Accompanied by brother Medication Reconcilliation completed & Yes No Yes provided to patient/care provider Clinical Summary of Care Provided Yes Yes Yes 07/20/21 14:07 Wound Care Nurse 3 #1- LEFT GROIN- POST OP -Ulcer Cleansing Rinsed/ Irrigated with Saline -Foul Odor after Cleansing No -Negative Pressure Wound Therapy -Primary Dressing Applied Aquacel AG 4x4 -Primary Dressing Covered/Secured with Dry Gauze, Secured with Tape -Aquacel Extra -Aquacel AG 4x4 1 -Mepilex Border Treatment Response Procedure Tolerated Well Pain Scale: 0-10 Numeric Is Patient Pain Free? Yes Teaching: Wound Center Dressing Your Wound -Person Taught -Teaching Method -Response to teaching WC - Visit Discharge Discharge Condition Stable Ambulatory Status Ambulatory Transportation Private Auto Accompanied by Medication Reconcilliation completed & provided to patient/care provider Clinical Summary of Care Provided Assessment/Plan Assessment/Plan (1) Non-healing surgical wound of left groin: CODE(S): T81.89XA - Other complications of procedures, not elsewhere classified, initial encounter PLAN: Debridement done today, patient tolerated well. Patient to do Aquacel silver change 1-2 times a day as needed and cover with gauze. Given the redness today, cultures collected. He would benefit from Intradry to place in his pannus folds to prevent the skin on skin friction. Optimal diabetes control again was discussed continue increase protein intake. Patient reports that his most recent A1c was 5.5. His questions were answered and he was advised to call with any further questions or concerns. Follow-up in 1 weeks at the wound healing center or sooner if needed. Since he is still having delayed wound healing would like patient to have surgical consult again as his nonhealing wound has been present for since 2018. We will request surgical consult notes as patient states that he had this done prior. Given the continued delayed wound healing will apply for an advanced skin substitute. This note was generated with [employer] dictation software. It may contain incorrect words, spelling, and punctuation that were not noted in checking the note before signing. I have spent 25 minutes today reviewing labs, records, and history. Time includes coordinating care, interpretation of tests, and counseling the pat ient/family. This also includes time I spent with the patient for exam, treatment plan, and education as well as documenting clinical information in the electronic health record. (2) Abdominal panniculus: CODE(S): E65 - Localized adiposity (3) Type 2 diabetes mellitus: CODE(S): E11.9 - Type 2 diabetes mellitus without complications QUALIFIERS: Qualified Code(s): L98.499 - Non-pressure chronic ulcer of skin of other sites with unspecified severity (4) Morbid obesity: CODE(S): E66.01 - Morbid (severe) obesity due to excess calories
== END 2021-07-20 23:59 | disposition home or self-care (01) ==
LOC: WC 13:15
PROVIDERS: Family Provider Family Medicine; PCP Family Medicine; Referring Provider Nurse Practitioner Family; Visit Provider Nurse Practitioner Family
DX: T81.89XA Other complications of procedures, not elsewhere classified, initial encounter (principal); F20.9 Schizophrenia, unspecified; L98.492 Non-pressure chronic ulcer of skin of other sites with fat layer exposed; E11.40 Type 2 diabetes mellitus with diabetic neuropathy, unspecified; E66.01 Morbid (severe) obesity due to excess calories; Z79.4 Long term (current) use of insulin; M10.9 Gout, unspecified; I89.0 Lymphedema, not elsewhere classified; E65 Localized adiposity; Z79.899 Other long term (current) drug therapy
CPT/HCPCS: 11042; 15271; 87070; 87075; 87077; 87205; 99213; Q4121; G0463

== ENCOUNTER 2021-08-17 13:00 | Outpatient (RCR) | payer MEDICARE, MEDICAID, SELFPAY ==
[2021-07-21 00:27] VITALS: BP 105/63; PULSE 75; RESP 18; TEMP 35.8
[2021-08-03 13:06] VITALS: BP 114/76; PULSE 71; RESP 20; TEMP 35.9
--- NOTE | 2021-08-04 14:37 | PN.PCM_ITS ---
History of Present Illness Date of Service: 08/03/21 Chief Complaint: Nonhealing wound status post surgical excision of necrotizing fasciitis left groin History of Wound: 46-year-old white male who presents to the wound healing center today with complaint of left groin ulceration status post surgical excision of necrotizing fasciitis. He is a past medical history which is significant for that of type 2 diabetes mellitus, gout, diabetic neuropathy, schizophrenia, bilateral lymphedema, and schizophrenia. The patient states that what initially started as a pimple in his left groin progressed to necrotizing fasciitis and he had to have this surgically debrided in April 2017. He was admitted to [facility] for 2 weeks and then [facility] for 6 weeks afterwards. He states that the groin ulcer which extends to his left lower abdomen has been slowly improving and he has been doing daily Aquacel AG dressings with an ABD for the drainage. He does state that he has had 3 wound vacs in the past which were unable to be utilized due to the location of his wound. He denies any foul-smelling discharge or systemic signs of infection at this time. The patient otherwise denies any fever, chills, nausea, vomiting, shortness of breath, chest pain or pressure, palpitations, orthopnea, syncope or presyncopal episodes. Progress of Wound: Stable, no new concerns Objective Data Objective Data Vital Signs: Vital Signs Temp Pulse Resp BP 96.7 F L 71 20 H 114/76 08/03/21 13:06 08/03/21 13:06 08/03/21 13:06 08/03/21 13:06 Weight: 400 lb Charges/Coding Procedures Integumentary 111xxx-113xx: [id number] Jessica subq tissue 20 sq cm/< Physical Exam Const alert and oriented x3 General Appearance: cooperative HEENT normocephalic Head and Scalp: atraumatic Eyes PERRL Lymph Lymphatic: no lymphedema noted Resp normal respiratory effort Cardio regular rate GI non-tender GI Narrative: Large pannus with obese abdomen Palpation: soft Extremity normal capillary refill Skin Wound Narrative: Left medial groin ulcer is pink without any signs of infection at this time, small amount of slough Neuro CN's II-XII intact bilaterally Psych Thought Process: normal thought process Debridement Note Debridement Note Wound debrided: Left groin ulcer Laterality: Left Type of Debridement: Excisional debridement Anesthesia Used: 5% Lidocaine Gel Depth: in the subcutaneous layer Percentage of wound debrided: 100 Instrument Used: 5mm curette Tissue Removed: Slough and devitalized tissue Severity: Fat Layer Exposed Amount of bleeding with debridement: Mild Bleeding Controlled with: Pressure Patient tolerated procedure: Patient tolerated procedure well Post-Debridement Measurements and Additional Note: Post-Debridement Measurements/Treatment - Nurse 1 - General Ulcer Assessment Start: 08/03/21 13:06 Freq: Status: Active Protocol: FRANKY Activity Type Activity Date Activity User E-Sign Co-Sign Detail Recorded Client Recorded Date Recorded By Document 08/03/21 13:06 DL [id number] 08/03/21 13:10 DL 08/03/21 13:06 - Today's Visit Information Type of service Follow-up Visit (Physician/QUALITY ASSURANCE GROUP LEADER ) Arrival Mode Ambulatory Transfer Assistance None Patient Identification Verified (Name & Yes ) Patient Requires Transmission-Based No Precautions Vital Signs Temperature (97.8 F-99.1 F) 96.7 F L Temperature Source Temporal Pulse Rate (60-100) 71 Pulse Location Monitor Respiratory Rate (12-18) 20 H Respiratory rate source Observation Blood Pressure (90/60-120/80) 114/76 Blood Pressure Mean (mm Hg) 88 Source Monitor History Since Last Visit- (Skip if this is Patient's initial visit) Have you changed medications since your No last visit? Any new allergies or adverse reactions No Had a fall/change in ADL's that may No increase risk of falls Signs or symptoms of abuse and/or No neglect since last visit Have you been in the hospital since your No last visit? Has dressing in place as prescribed Yes Has compression in place as prescribed N/A Has offloadiing in place as prescribed N/A Pain Scale: 0-10 Numeric Is Patient Pain Free? Yes - Nurse 1 - General Ulcer Measurement Start: 08/03/21 13:06 Freq: Status: Active Protocol: Activity Type Activity Date Activity User E-Sign Co-Sign Detail Recorded Client Recorded Date Recorded By Document 08/03/21 13:06 DL [id number] 08/03/21 13:10 DL 08/03/21 13:06 Wound Center Nurse 1 #1- LEFT GROIN- POST OP -Current Size (cm) - Length 5.2 -Current Size (cm) - Width 0.3 -Current Size (cm) - Depth 0.2 -Total Square Cm 1.56 -Photo Taken No -Exudate Amt Medium -Exudate Type Serosanguineous -Wound Margin Distinct, Outline Attached -Granulation Amt Large (67-100%) -Granulation Quality Red -Necrosis Amt None Present (0 %) -Structure Exposed N/A -Texture (Inessa-wound Skin Appearance) Scarring -Moisture (Inessa-wound Skin Appearance) No Abnormality -Color (Inessa-wound Skin Appearance) No Abnormality -Temperature (Inessa-wound Skin No Abnormality Appearance) (Pt Warm) -Tenderness on Palpation (Inessa-wound No Skin Appearance) -Ulcer Cleansing Soap and Water -Foul Odor after Cleansing No -Anesthetic Used 4% Lidocaine Solution WC - Nurse 2 - General Ulcer CM Notes Start: 08/03/21 13:06 Freq: Status: Active Protocol: Activity Type Activity Date Activity User E-Sign Co-Sign Detail Recorded Client Recorded Date Recorded By Document 08/03/21 13:26 MW [id number] 08/03/21 13:30 MW 08/03/21 13:26 Wound Center Nurse 2 -Time 13:27 -Correct Patient Yes -Correct Side, Site, Position Yes -Correct Procedure Yes -Procedure Performed Yes -Type of Procedure Debridement -Clinical Debridement Subcutaneous -Tissue Removed Subcutaneous -Post Debridement (cm) - Length 1.0 -Post Debridement (cm) - Width 7.0 -Post Debridement (cm) - Depth 0.1 -Total Square (Post) (cm) 7.00 -Area of Debridement (cm) - Length 1.0 -Area of Debridement (cm) - Width 7.0 -Total Square (Area) (cm) 7.00 -Tunneling No -Undermining/Tunneling No -Circular Undermining No -Wound/Ulcer Outcome Not Healed -Ulcer Cleansing Rinsed/ Irrigated with Saline -Foul Odor after Cleansing No -Bioengineered Tissue No -Bleeding Controlled with Pressure -Treatment Response Procedure Tolerated Well -Offloading No -Debridement - Subq, 1st 20sq cm Yes Pain Scale: 0-10 Numeric Is Patient Pain Free? Yes RAMÓN - Nurse 3 - General Ulcer D/C NN Start: 08/03/21 13:06 Freq: Status: Active Protocol: Activity Type Activity Date Activity User E-Sign Co-Sign Detail Recorded Client Recorded Date Recorded By Document 08/03/21 13:36 CHAPO [id number] 08/03/21 13:36 DL 08/03/21 13:36 Wound Care Nurse 3 #1- LEFT GROIN- POST OP -Ulcer Cleansing Rinsed/ Irrigated with Saline -Foul Odor after Cleansing No -Primary Dressing Applied Aquacel Extra, Mepilex Border -Aquacel Extra 1 -Mepilex Border 1 Treatment Response Procedure Tolerated Well Pain Scale: 0-10 Numeric Is Patient Pain Free? Yes WC - Visit Discharge Discharge Condition Stable Ambulatory Status Ambulatory Transportation Private Auto Assessment/Plan Assessment/Plan (1) Non-healing surgical wound of left groin: CODE(S): T81.89XA - Other complications of procedures, not elsewhere classified, initial encounter PLAN: Debridement done today, patient tolerated well. Patient to do Aquacel extra change 1-2 times a day as needed and cover with gauze. Given the redness prior, cultures were collected and negative. He would benefit from Intradry to place in his pannus folds to prevent the skin on skin friction. Optimal diabetes control again was discussed continue increase protein intake. Patient reports that his most recent A1c was 5.5. His questions were answered and he was advised to call with any further questions or concerns. Follow-up in 1 weeks at the wound healing center or sooner if needed. Since he is still having delayed wound healing would like patient to have surgical consult again as his nonhealing wound has been present for since 2018. He has an appointment with his new surgeon next week. This note was generated with [employer] dictation software. It may contain incorrect words, spelling, and punctuation that were not noted in checking the note before signing. I have spent 25 minutes today reviewing labs, records, and history. Time includes coordinating care, interpretation of tests, and counseling the patient/family. This also includes time I spent with the patient for exam, treatment plan, and education as well as documenting clinical information in the electronic health record. (2) Abdominal panniculus: CODE(S): E65 - Localized adiposity (3) Type 2 diabetes mellitus: CODE(S): E11.9 - Type 2 diabetes mellitus without complications QUALIFIERS: Qualified Code(s): L98.499 - Non-pressure chronic ulcer of skin of other sites with unspecified severity (4) Morbid obesity: CODE(S): E66.01 - Morbid (severe) obesity due to excess calories
[2021-08-17 13:17] VITALS: BP 120/62; PULSE 70; TEMP 36.4
--- NOTE | 2021-08-17 16:28 | PN.PCM_ITS ---
History of Present Illness Date of Service: 08/17/21 Chief Complaint: Nonhealing wound status post surgical excision of necrotizing fasciitis left groin History of Wound: 46-year-old white male who presents to the wound healing center today with complaint of left groin ulceration status post surgical excision of necrotizing fasciitis. He is a past medical history which is significant for that of type 2 diabetes mellitus, gout, diabetic neuropathy, schizophrenia, bilateral lymphedema, and schizophrenia. The patient states that what initially started as a pimple in his left groin progressed to necrotizing fasciitis and he had to have this surgically debrided in April 2017. He was admitted to [facility] for 2 weeks and then [facility] for 6 weeks afterwards. He states that the groin ulcer which extends to his left lower abdomen has been slowly improving and he has been doing daily Aquacel AG dressings with an ABD for the drainage. He does state that he has had 3 wound vacs in the past which were unable to be utilized due to the location of his wound. He denies any foul-smelling discharge or systemic signs of infection at this time. The patient otherwise denies any fever, chills, nausea, vomiting, shortness of breath, chest pain or pressure, palpitations, orthopnea, syncope or presyncopal episodes. Progress of Wound: Stable, no new concerns patient did follow-up with the [place] [facility] and will be having surgery next Saturday to have surgical excision of his chronic wound in his left groin and therefore we will transfer his care from the wound healing center to there Objective Data Objective Data Vital Signs: Vital Signs Temp Pulse Resp BP 97.5 F L 70 20 H 120/62 08/17/21 13:17 08/17/21 13:17 08/03/21 13:06 08/17/21 13:17 Weight: 400 lb Charges/Coding Visit Charges Office Visits / Consults: 50700 OV L3 Est Physical Exam Const alert and oriented x3 General Appearance: cooperative HEENT normocephalic Head and Scalp: atraumatic Eyes PERRL Lymph Lymphatic: no lymphedema noted Resp normal respiratory effort Cardio regular rate GI non-tender GI Narrative: Large pannus with obese abdomen Palpation: soft Extremity normal capillary refill Skin Wound Narrative: Left medial groin ulcer is pink without any signs of infection at this time, small amount of slough Neuro CN's II-XII intact bilaterally Psych Thought Process: normal thought process Debridement Note Debridement Note No debridement was completed: No debridement was completed today Post-Debridement Measurements and Additional Note: Post-Debridement Measurements/Treatment RAMÓN - Nurse 1 - General Ulcer Assessment Start: 08/03/21 13:06 Freq: Status: Active Protocol: FRANKY Activity Type Activity Date Activity User E-Sign Co-Sign Detail Recorded Client Recorded Date Recorded By Document 08/03/21 13:06 DL [id number] 08/03/21 13:10 DL Document 08/17/21 13:17 KR [id number] 08/17/21 13:18 KR 08/03/21 08/17/21 13:06 13:17 WC - Today's Visit Information Type of service Follow-up Visit Follow-up Visit (Physician/LITIGATION ATTORNEY (Physician/LITIGATION ATTORNEY ) ) Arrival Mode Ambulatory Ambulatory Transfer Assistance None Patient Identification Verified (Name & Yes Yes ) Patient Requires Transmission-Based No Precautions Vital Signs Temperature (97.8 F-99.1 F) 96.7 F L 97.5 F L Temperature Source Temporal Temporal Pulse Rate (60-100) 71 70 Pulse Location Monitor Monitor Respiratory Rate (12-18) 20 H Respiratory rate source Observation Blood Pressure (90/60-120/80) 114/76 120/62 Blood Pressure Mean (mm Hg) 88 81 Source Monitor Monitor Position Sitting Blood Pressure Location Right Arm History Since Last Visit- (Skip if this is Patient's initial visit) Have you changed medications since your No No last visit? Any new allergies or adverse reactions No No Had a fall/change in ADL's that may No No increase risk of falls Signs or symptoms of abuse and/or No No neglect since last visit Have you been in the hospital since your No No last visit? Has dressing in place as prescribed Yes Yes Has compression in place as prescribed N/A N/A Has offloadiing in place as prescribed N/A N/A Experienced any changes in pain level or No management Left Footwear Regular Shoe Right Footwear Regular Shoe Pain Scale: 0-10 Numeric Is Patient Pain Free? Yes Yes RAMÓN Campos Nurse 1 - General Ulcer Measurement Start: 08/03/21 13:06 Freq: Status: Active Protocol: Activity Type Activity Date Activity User E-Sign Co-Sign Detail Recorded Client Recorded Date Recorded By Document 08/03/21 13:06 DL [id number] 08/03/21 13:10 DL Document 08/17/21 13:17 KR [id number] 08/17/21 13:18 KR 08/03/21 08/17/21 13:06 13:17 Wound Center Nurse 1 #1- LEFT GROIN- POST OP -Current Size (cm) - Length 5.2 1.1 -Current Size (cm) - Width 0.3 7.4 -Current Size (cm) - Depth 0.2 0.1 -Total Square Cm 1.56 8.14 -Photo Taken No -Exudate Amt Medium Small -Exudate Type Serosanguineous Serosanguineous -Wound Margin Distinct, Distinct, Outline Outline Attached Attached -Granulation Amt Large (67-100%) Large (67-100%) -Granulation Quality Red [place] -Necrosis Amt None Present (0 None Present (0 %) %) -Structure Exposed N/A -Texture (Inessa-wound Skin Appearance) Scarring Assessed, Scarring -Moisture (Inessa-wound Skin Appearance) No Abnormality No Abnormality, Assessed -Color (Inessa-wound Skin Appearance) No Abnormality No Abnormality, Assessed -Temperature (Inessa-wound Skin No Abnormality No Abnormality Appearance) (Pt Warm) (Pt Warm) -Tenderness on Palpation (Inessa-wound No No Skin Appearance) -Ulcer Cleansing Soap and Water Rinsed/ Irrigated with Saline -Foul Odor after Cleansing No No -Anesthetic Used 4% Lidocaine 4% Lidocaine Solution Solution WC - Nurse 2 - General Ulcer CM Notes Start: 08/03/21 13:06 Freq: Status: Active Protocol: Activity Type Activity Date Activity User E-Sign Co-Sign Detail Recorded Client Recorded Date Recorded By Document 08/03/21 13:26 MW [id number] 08/03/21 13:30 MW Document 08/17/21 13:29 MW [id number] 08/17/21 13:32 MW 08/03/21 08/17/21 13:26 13:29 Wound Center Nurse 2 #1- LEFT GROIN- POST OP -Time 13:27 13:30 -Correct Patient Yes Yes -Correct Side, Site, Position Yes Yes -Correct Procedure Yes Yes -Procedure Performed Yes No -Type of Procedure Debridement -Clinical Debridement Subcutaneous -Tissue Removed Subcutaneous -Post Debridement (cm) - Length 1.0 -Post Debridement (cm) - Width 7.0 -Post Debridement (cm) - Depth 0.1 -Total Square (Post) (cm) 7.00 -Area of Debridement (cm) - Length 1.0 -Area of Debridement (cm) - Width 7.0 -Total Square (Area) (cm) 7.00 -Tunneling No No -Undermining/Tunneling No No -Circular Undermining No No -Wound/Ulcer Outcome Not Healed Not Healed -Ulcer Cleansing Rinsed/ Irrigated with Saline -Foul Odor after Cleansing No -Bioengineered Tissue No -Bleeding Controlled with Pressure NA -Treatment Response Procedure Tolerated Well -Offloading No -Debridement - Subq, 1st 20sq cm Yes Pain Scale: 0-10 Numeric Is Patient Pain Free? Yes Yes - Nurse 3 - General Ulcer D/C NN Start: 08/03/21 13:06 Freq: Status: Active Protocol: Activity Type Activity Date Activity User E-Sign Co-Sign Detail Recorded Client Recorded Date Recorded By Document 08/03/21 13:36 DL [id number] 08/03/21 13:36 DL Document 08/17/21 13:45 KR [id number] 08/17/21 13:46 KR 08/03/21 08/17/21 13:36 13:45 Wound Care Nurse 3 #1- LEFT GROIN- POST OP -Ulcer Cleansing Rinsed/ Rinsed/ Irrigated with Irrigated with Saline Saline -Foul Odor after Cleansing No -Primary Dressing Applied Aquacel Extra, Aquacel Extra Mepilex Border -Primary Dressing Covered/Secured with Dry Gauze, Secured with Tape -Aquacel Extra 1 1 -Mepilex Border 1 Treatment Response Procedure Tolerated Well Pain Scale: 0-10 Numeric Is Patient Pain Free? Yes Yes - Visit Discharge Discharge Condition Stable Stable Ambulatory Status Ambulatory Ambulatory Transportation Private Auto Private Auto Assessment/Plan Assessment/Plan (1) Non-healing surgical wound of left groin: CODE(S): T81.89XA - Other complications of procedures, not elsewhere classified, initial encounter PLAN: No Debridement done today, as he is getting surgery by [facility] next week. Patient to do Aquacel extra change 1-2 times a day as needed and cover with gauze. Given the redness prior, cultures were collected and negative. He would benefit from Intradry to place in his pannus folds to prevent the skin on skin friction. Optimal diabetes control again was discussed continue increase protein intake. Patient reports that his most recent A1c was 5.5. His questions were answered and he was advised to call with any further questions or concerns. His care will be transferred over to [facility] as they are doing his surgery next week and he will be in the [facility] afterwards. This note was generated with [employer] dictation software. It may contain incorrect words, spelling, and punctuation that were not noted in checking the note before signing. I have spent 25 minutes today reviewing labs, records, and history. Time includes coordinating care, interpretation of tests, and counseling the patient/family. This also includes time I spent with the patient for exam, treatment plan, and education as well as documenting clinical information in the electronic health record. (2) Abdominal panniculus: CODE(S): E65 - Localized adiposity (3) Type 2 diabetes mellitus: CODE(S): E11.9 - Type 2 diabetes mellitus without complications QUALIFIERS: Qualified Code(s): L98.499 - Non-pressure chronic ulcer of skin of other sites with unspecified severity (4) Morbid obesity: CODE(S): E66.01 - Morbid (severe) obesity due to excess calories
== END 2021-08-19 23:59 | disposition home or self-care (01) ==
LOC: WC 13:00
PROVIDERS: Family Provider Family Medicine; PCP Family Medicine; Referring Provider Nurse Practitioner Family; Visit Provider Nurse Practitioner Family
DX: T81.89XA Other complications of procedures, not elsewhere classified, initial encounter (principal); L98.492 Non-pressure chronic ulcer of skin of other sites with fat layer exposed; Y83.8 Other surgical procedures as the cause of abnormal reaction of the patient, or of later complication, without mention of misadventure at the time of the procedure; E11.40 Type 2 diabetes mellitus with diabetic neuropathy, unspecified; I89.0 Lymphedema, not elsewhere classified; M10.9 Gout, unspecified; F20.9 Schizophrenia, unspecified; E66.01 Morbid (severe) obesity due to excess calories; Z79.4 Long term (current) use of insulin; Z79.899 Other long term (current) drug therapy
CPT/HCPCS: 11042; 99213; G0463